=== PATIENT | female | born 1940 | race Caucasian/White ===

== ENCOUNTER 2017-06-05 12:10 | Inpatient (IN) | payer OTHER ==
--- NOTE | 2017-06-05 12:45 | PDOC ---
History of Present Illness - General Chief Complaint: Weakness Stated Complaint: UNABLE TO WALK Time Seen by Provider: 06/05/17 12:30 History Source: Patient Exam Limitations: No Limitations - History of Present Illness Initial Comments: 06/05/17 13:04 76y F presents with complaint of early onset parkinsons, htn, arhtiritis presents with FTT.The pt states that she is wheel chair bound for the past year or so, was evaluated at [facility] a few times for falls, and had undergone rehab but per patient was discharged without any services at home. 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 per EMS, states pt was sitting inher dirty dipare for a few days due to being uanbel to clean herself. pt otherwise has no complaints of any headache, dizziness, cp, sob, fever/chills, cough, n/v, abd pain, diarrhea, dysuria, frequency. pt states she has beentrying to call different services to get help but was ignored. PMD is at [facility] Past History - Past Medical History Allergies/Adverse Reactions: Allergies Allergy/AdvReac Type Severity Reaction Status Date / Time No Known Allergies Allergy Verified 06/05/17 12:24 Home Medications: Ambulatory Orders Unobtainable [Unobtainable] 06/05/17 COPD: No HTN: Yes Hypercholesterolemia: Yes - Surgical History Appendectomy: Yes - Suicide/Smoking/Psychosocial Hx Smoking History: Current every day smoker Have you smoked in the past 12 months: Yes Number of Cigarettes Smoked Daily: 5 Information on smoking cessation initiated: No Hx Alcohol Use: No Drug/Substance Use Hx: No Substance Use Type: None Review of Systems - Review of Systems Able to Perform ROS?: Yes Comments:: 06/05/17 13:10 Constitutional - +general weakness no reported Fever, Chills, HEENT: no reported vision changes, sore throat Respiratory: no reported cough, sob, hemoptysis Cardiac: no reported chest pain, palpitations, light headedness, leg swelling Abd/GI: no reported abd pain, nausea, vomiting, blood per rectum, melena, diarrhea : no reported dysuria, frequency, discharge Musculskelatal - no reported back pain, joint swelling skin - no reported bruising, erythema, rash neurological: no reported headache, numbness, focal weakness, tingling, ataxia, hematologic: no reported anemia, easy bruising, easy bleeding *Physical Exam - Vital Signs Last Vital Signs Temp Pulse Resp BP Pulse Ox 97.3 F L 68 18 131/72 100 06/05/17 12:24 06/05/17 12:24 06/05/17 12:24 06/05/17 12:24 06/05/17 12:24 - Physical Exam Comments: 06/05/17 13:10 GENERAL: The patient is awake, alert, and fully oriented, Nontoxic - in no acute distress. Frail appearing HEAD: Normocephalic, atraumatic. EYES: extraocular movements intact, sclera anicteric, conjunctiva clear. ENT: Normal voice, dry mucous membranes. NECK: Normal range of motion, supple LUNGS: Breath sounds equal, clear to auscultation bilaterally. No wheezes, no rhonchi, no rales. HEART: Regular rate and rhythm, normal S1 and S2 without murmur, rub or gallop. ABDOMEN: Soft, nontender, normoactive bowel sounds. No guarding, no rebound. No CVA tenderness EXTREMITIES: Normal range of motion, no edema. +arhthritic changes on the hands/ wrists, large nontender/nonerythemadous bursa noted on R elbow NEUROLOGICAL: No facial assymetry, Normal speech, moving all 4 extremities spontaneously and symmetrically PSYCH: Normal mood, normal affect. SKIN: Warm, Dry, normal turgor, Heart Score/ECG Review - ECG Impressions Comment:: 06/05/17 13:13 Twelve-lead EKG was performed and reviewed by me. There is normal sinus rhythm Rate of 59 LVH with repolarization Q wave in lead 3 ED Treatment Course - LABORATORY CBC & Chemistry Diagram: 06/06/17 12:20 06/06/17 06:10 Medical Decision Making - Medical Decision Making 06/05/17 12:45 76y F presents with complaint of early onset parkinsons, htn, arhtiritis presents with ftt, unable to ambualte or do most of her ADLs will r/o anemia, metabolic derangement, occult infection 06/05/17 15:45 labs reviewed noted for prerenal azotemia - will hydrate +anemic, +hypothyroid - will place in observation status for the hydration and case management assessment to see if we can get her some asisstance at home or placement as pt does not seem capable of living on her own. 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 Admitting physician has assumed care for the patient, will follow all pending diagnostics and will complete the evaluation and treatment. *DC/Admit/Observation/Transfer Diagnosis at time of Disposition: Prerenal renal failure Failure to thrive Qualifiers: Failure to thrive age range: in adult Qualified Code(s): R62.7 - Adult failure to thrive Anemia Qualifiers: Anemia type: other cause Other causes of anemia: other cause, not classified Qualified Code(s): D64.89 - Other specified anemias - Discharge Dispostion Condition at time of disposition: Stable Admit: Yes - Referrals - Patient Instructions - Post Discharge Activity
[2017-06-05 13:51] LABS: BASO % 1.1 % (0-2.0); EOS % 1.4 % (0-4.5); HEMATOCRIT 24.3 % (32.4-45.2); HEMOGLOBIN 8.1 GM/dL (10.7-15.3); LYMPH % 11.5 % (8-40); MCH 25.2 pg (25.7-33.7); MCHC 33.2 g/dl (32.0-36.0); MEAN CELL VOLUME 75.9 fl (80-96); MEAN PLT VOLUME 7.2 fl (7.5-11.1); MONO % 5.7 % (3.8-10.2); NEUT % 80.3 % (42.8-82.8); PLATELET COUNT 675 K/MM3 (134-434); RBC 3.21 M/mm3 (3.60-5.2); WHITE BLOOD COUNT 10.7 K/mm3 (4.0-10.0)
[2017-06-05 14:08] LABS: URINE APPEARANCE SLCLOUDY; URINE BILIRUBIN NEGATIVE (<2.0 mg/dL); URINE BLOOD 2+ (NEGATIVE); URINE COLOR YELLOW; URINE GLUCOSE (UA) NEGATIVE (NEGATIVE); URINE KETONE NEGATIVE (NEGATIVE); URINE LEUK ESTERASE TRACE (NEGATIVE); URINE NITRITE NEGATIVE (NEGATIVE); URINE UROBILINOGEN NEGATIVE mg/dL (0.2-1.0)
[2017-06-05 14:10] LABS: ALBUMIN 2.9 g/dl (3.4-5.0); ANION GAP 9 (8-16); BLOOD UREA NITROGEN 66 mg/dL (7-18); CALCIUM 8.8 mg/dL (8.5-10.1); CHLORIDE 96 mmol/L (98-107); CO2 26 mmol/L (21-32); GLUCOSE,RANDOM 186 mg/dL (74-106); SODIUM 131 mmol/L (136-145)
[2017-06-05 14:17] LABS: URINE PROTEIN 2+ (NEGATIVE)
[2017-06-05 14:22] LABS: EPI CELLS RARE /HPF (FEW); URINE BACTERIA MANY /hpf (NONE SEEN); URINE HYALINE CAST 2 /lpf; URINE MUCUS RARE; YEAST FEW
[2017-06-05 14:30] LABS: ALK PHOS 121 U/L (45-117); BILIRUBIN,TOTAL 0.3 mg/dL (0.2-1.0); CREATININE 1.7 mg/dL (0.55-1.02); SGPT/ALT 17 U/L (12-78); TOT PROT 7.4 g/dl (6.4-8.2)
[2017-06-05 14:37] LABS: POTASSIUM 4.4 mmol/L (3.5-5.1); SGOT/AST 43 U/L (15-37)
[2017-06-05] MEDS ORDERED: SODIUM CHLORIDE 500 ML IV STA (15:00)
[2017-06-05 17:26] VITALS: BMI 19.6
--- NOTE | 2017-06-05 18:01 | HP ---
CHIEF COMPLAINT: "my neighbor told me to come in" PCP: none HISTORY OF PRESENT ILLNESS: This is a 76 year old female with PMHx of HTN who presented to the ED with multiple complaints because her neighbor told her to come in. The patient is wheelchair bound and has been for over 1 year. She states she has been unable to hear out of her left hear for over a year and has had a "haziness" over her right eye for 1 year. She states that she lives alone and cannot take care of herself. She states in the past she has tried to get nursing services at home but has not be successful. When EMS found the patient she was sitting in her dirty diaper. The patient denies any chest pain, palpitations, dizziness, headache, edema, shortness of breath, fever, chills, cough, nausea, vomiting, dysuria, frequency, urgency. ER course was notable for: (1) Temp 07.3, pulse 68, BP 131/72, resp 18, O2 100% on RA (2) WBC 10.7, Hgb 8.1, platelets 675 (3) Na 131, Cr 1.7 (4) TSH 18.2 (5) UA 2+ protein (6) Chest X-ray with no acute pathology Recent Travel: denies PAST MEDICAL HISTORY: as above PAST SURGICAL HISTORY: Appendectomy and tonsilectomy as a child Social History: Smokin cigarettes/day Alcohol: denies Drugs: denies Family History: Allergies No Known Allergies Allergy (Verified 06/05/17 12:24) HOME MEDICATIONS: Home Medications Medication Instructions Recorded Unobtainable [Unobtainable] 06/05/17 REVIEW OF SYSTEMS CONSTITUTIONAL: Absent: fever, chills, diaphoresis, generalized weakness, malaise, loss of appetite, weight change HEENT: 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, right eye blindness x1 year Absent: rhinorrhea, nasal congestion, throat pain, throat swelling, difficulty swallowing, mouth swelling, ear pain, eye pain CARDIOVASCULAR: Absent: chest pain, syncope, palpitations, irregular heart rate, lightheadedness , peripheral edema RESPIRATORY: Absent: cough, shortness of breath, dyspnea with exertion, orthopnea, wheezing, stridor, hemoptysis GASTROINTESTINAL: Absent: abdominal pain, abdominal distension, nausea, vomiting, diarrhea, constipation, melena, hematochezia GENITOURINARY: Absent: dysuria, frequency, urgency, hesitancy, hematuria, flank pain, genital pain MUSCULOSKELETAL: Wheelchair bound x1 year Absent: myalgia, arthralgia, joint swelling, back pain, neck pain SKIN: Absent: rash, itching, pallor HEMATOLOGIC/IMMUNOLOGIC: Absent: easy bleeding, easy bruising, lymphadenopathy, frequent infections ENDOCRINE: Absent: unexplained weight gain, unexplained weight loss, heat intolerance, cold intolerance NEUROLOGIC: Absent: headache, focal weakness or paresthesias, dizziness, seizure, mental status changes PSYCHIATRIC: Absent: anxiety, depression, suicidal or homicidal ideation, hallucinations. PHYSICAL EXAMINATION Vital Signs - 24 hr 06/05/17 06/05/17 06/05/17 12:24 12:46 14:45 Temperature 97.3 F L Pulse Rate 68 Pulse Rate [ 63 Radial] Respiratory 18 20 Rate Blood Pressure 131/72 Blood Pressure 157/64 [Right Arm] O2 Sat by Pulse 100 100 98 Oximetry (%) 06/05/17 17:06 Temperature 97.7 F Pulse Rate 55 L Pulse Rate [ Radial] Respiratory 20 Rate Blood Pressure 167/66 Blood Pressure [Right Arm] O2 Sat by Pulse Oximetry (%) GENERAL: Awake, alert, and fully oriented, in no acute distress. HEAD: Normal with no signs of trauma. EYES: Right eye caterac. No lid lag. EARS, NOSE, THROAT: Left hear deafness. Ears normal, nares patent, oropharynx clear without exudates. Moist mucous membranes. NECK: Normal range of motion, supple without lymphadenopathy, JVD, or masses. LUNGS: Breath sounds equal, clear to auscultation bilaterally. No wheezes, and no crackles. No accessory muscle use. HEART: Regular rate and rhythm, normal S1 and S2 ABDOMEN: Soft, nontender, not distended, normoactive bowel sounds, no guarding, no rebound, no masses. No hepatomegaly or splenomegaly. MUSCULOSKELETAL: B/l hands with Heberden's and Anton's nodes. No CVA tenderness. UPPER EXTREMITIES: 2+ pulses, warm, well-perfused. No cyanosis. No clubbing. No peripheral edema. LOWER EXTREMITIES: 2+ pulses, warm, well-perfused. No calf tenderness. No peripheral edema. NEUROLOGICAL: Normal speech. PSYCHIATRIC: Cooperative. Good eye contact. Appropriate mood and affect. SKIN: Warm, dry, normal turgor, no rashes or lesions noted, normal capillary refill. Laboratory Results - last 24 hr 06/05/17 06/05/17 06/05/17 12:53 13:00 13:00 WBC 10.7 H RBC 3.21 L Hgb 8.1 L Hct 24.3 L MCV 75.9 L MCH 25.2 L MCHC 33.2 RDW 19.0 H Plt Count 675 H MPV 7.2 L Neutrophils % 80.3 Lymphocytes % 11.5 Monocytes % 5.7 Eosinophils % 1.4 Basophils % 1.1 Sodium 131 L Potassium 4.4 Chloride 96 L Carbon Dioxide 26 Anion Gap 9 BUN 66 H Creatinine 1.7 H Creat Clearance w eGFR 29.38 POC Glucometer Random Glucose 186 H Calcium 8.8 Total Bilirubin 0.3 AST 43 H ALT 17 Alkaline Phosphatase 121 H Total Protein 7.4 Albumin 2.9 L TSH 18.20 H Urine Color Yellow Urine Appearance Slcloudy Urine pH 5.0 Ur Specific [place] 1.012 Urine Protein 2+ H Urine Glucose (UA) Negative Urine Ketones Negative Urine Blood 2+ H Urine Nitrite Negative Urine Bilirubin Negative Urine Urobilinogen Negative Ur Leukocyte Esterase Trace Urine WBC (Auto) 5 Urine RBC (Auto) 2 Ur Epithelial Cells Rare Urine Bacteria Many Hyaline Casts 2 Urine Mucus Rare Urine Yeast Few 06/05/17 17:04 WBC RBC Hgb Hct MCV MCH MCHC RDW Plt Count MPV Neutrophils % Lymphocytes % Monocytes % Eosinophils % Basophils % Sodium Potassium Chloride Carbon Dioxide Anion Gap BUN Creatinine Creat Clearance w eGFR POC Glucometer 96 Random Glucose Calcium Total Bilirubin AST ALT Alkaline Phosphatase Total Protein Albumin TSH Urine Color Urine Appearance Urine pH Ur Specific [place] Urine Protein Urine Glucose (UA) Urine Ketones Urine Blood Urine Nitrite Urine Bilirubin Urine Urobilinogen Ur Leukocyte Esterase Urine WBC (Auto) Urine RBC (Auto) Ur Epithelial Cells Urine Bacteria Hyaline Casts Urine Mucus Urine Yeast Assessment: This is a 76 year old female with PMHx of HTN who presented to the ED with multiple complaints because her neighbor told her to come in. Plan: 1) Elevated TSH - TSH 18.2 - F/u T4 - Will start Synthroid if T4 level is low. Patient is asymptomatic 2) Elevated Cr - LUCERO vs. CKD - 2+ protein in urine. Patient unaware is CKD - F/u records from [facility] - Will give hydration - F/u urine electrolytes to calculate FeNa 3) HTN - Patient does not recall what medication she takes at home - Montor BP and consider starting Norvasc if elevated 4) F/E/N: - Diabetic/sodium controlled diet - Hyperglycemia: f/u HgbA1c - Monitor electrolytes - Corrected Na for hyperglycemia 133, continue to trend 5) Prophylaxis: - Heparin 5,000u sq bid - PT 6) Dispo: - Once condition improves - Discussed with case management, patient will need services set up at home CODE STATUS: FULL CODE Visit type - Emergency Visit Emergency Visit: Yes ED Registration Date: 06/05/17 Care time: The patient presented to the Emergency Department on the above date and was hospitalized for further evaluation of their emergent condition. - New Patient This patient is new to me today: Yes Date on this admission: 06/05/17 - Critical Care Critical Care patient: No Hospitalist Screening - Colonoscopy Questionnaire Colonoscopy Questionnaire: Colonoscopy Questionnaire - Patient: 50 - 75 years old and never had a screening colonoscopy: Unknown History of colon or rectal polyps, or CA: Unknown History of IBD, Crohn's disease or UC: Unknown History of abdominal radiation therapy as a child: Unknown - Relative: 1 with colon or rectal CA, or polyps at age 60 or younger: Unknown Colon or rectal CA diagnosed at age 45 or younger: Unknown Multiple relatives with colon or rectal CA: Unknown - Outcome: Screening Result: Negative Screen
[2017-06-05] MEDS: SODIUM CHLORIDE 1,000 ML IV SCH (18:26)
[2017-06-05] MEDS: HEPARIN NA (PORCINE) 5,000 UNITS/ML 1ML VIAL SQ SCH (21:57)
[2017-06-06 07:44] LABS: BASO % 1.5 % (0-2.0); EOS % 3.7 % (0-4.5); HEMOGLOBIN 7.2 GM/dL (10.7-15.3); LYMPH % 23.2 % (8-40); MCH 24.9 pg (25.7-33.7); MCHC 32.6 g/dl (32.0-36.0); MEAN CELL VOLUME 76.4 fl (80-96); MEAN PLT VOLUME 6.9 fl (7.5-11.1); MONO % 8.3 % (3.8-10.2); NEUT % 63.3 % (42.8-82.8); PLATELET COUNT 596 K/MM3 (134-434); RBC 2.89 M/mm3 (3.60-5.2); RDW 18.8 % (11.6-15.6); WHITE BLOOD COUNT 7.3 K/mm3 (4.0-10.0)
[2017-06-06 08:10] LABS: ALBUMIN 2.5 g/dl (3.4-5.0); ALK PHOS 100 U/L (45-117); ANION GAP 6 (8-16); BILIRUBIN,TOTAL 0.2 mg/dL (0.2-1.0); BLOOD UREA NITROGEN 56 mg/dL (7-18); CALCIUM 8.4 mg/dL (8.5-10.1); CHLORIDE 105 mmol/L (98-107); CO2 25 mmol/L (21-32); CREATININE 1.5 mg/dL (0.55-1.02); GLUCOSE,RANDOM 62 mg/dL (74-106); MAGNESIUM 2.1 mg/dL (1.8-2.4); PHOSPHOROUS 3.5 mg/dL (2.5-4.9); POTASSIUM 4.2 mmol/L (3.5-5.1); SGOT/AST 26 U/L (15-37); SGPT/ALT 13 U/L (12-78); SODIUM 136 mmol/L (136-145); TOT PROT 6.5 g/dl (6.4-8.2)
[2017-06-06] MEDS: SODIUM CHLORIDE 1,000 ML IV SCH ×3 (08:36→22:32)
[2017-06-06] MEDS ORDERED: PT OWN MED DRAWER 7, Y5N ONE (09:49)
[2017-06-06] MEDS: HEPARIN NA (PORCINE) 5,000 UNITS/ML 1ML VIAL SQ SCH ×2 (09:53→21:46)
--- NOTE | 2017-06-06 10:53 | PN ---
Progress Note (short form) - Note Progress Note: Subjective: The patient was seen and examined at the bedside, she has no complaints at this time. Awaiting case management and PT evaluation Current Medications Generic Name Dose Route Start Last Admin Trade Name Armani PRN Reason Stop Dose Admin Heparin Sodium (Porcine) 5,000 unit 06/05/17 22:00 06/06/17 09:53 Heparin - SQ 5,000 unit BID LINNEA Administration Sodium Chloride 1,000 mls @ 75 mls/hr 06/05/17 18:00 06/06/17 08:36 Normal Saline - IV 75 mls/hr ASDIR LINNEA Administration Levothyroxine Sodium 25 mcg 06/07/17 07:00 Synthroid - PO DAILY@0700 [facility] Objective: Vital Signs Period Temp Pulse Resp BP Sys/Rolon Pulse Ox Last 24 Hr 97.3 F-97.7 F 52-68 18-20 131-176/52-72 98-100 Physical Exam: GENERAL: Awake, alert, and fully oriented, in no acute distress. HEAD: Normal with no signs of trauma. EYES: Right eye caterac. No lid lag. EARS, NOSE, THROAT: Left hear deafness. Ears normal, nares patent, oropharynx clear without exudates. Moist mucous membranes. NECK: Normal range of motion, supple without lymphadenopathy, JVD, or masses. LUNGS: Breath sounds equal, clear to auscultation bilaterally. No wheezes, and no crackles. No accessory muscle use. HEART: Regular rate and rhythm, normal S1 and S2 ABDOMEN: Soft, nontender, not distended, normoactive bowel sounds, no guarding, no rebound, no masses. No hepatomegaly or splenomegaly. MUSCULOSKELETAL: B/l hands with Heberden's and Anton's nodes. No CVA tenderness. UPPER EXTREMITIES: 2+ pulses, warm, well-perfused. No cyanosis. No clubbing. No peripheral edema. LOWER EXTREMITIES: 2+ pulses, warm, well-perfused. No calf tenderness. No peripheral edema. NEUROLOGICAL: Normal speech. PSYCHIATRIC: Cooperative. Good eye contact. Appropriate mood and affect. SKIN: Warm, dry, normal turgor, no rashes or lesions noted, normal capillary refill. CBCD WBC 7.3 K/mm3 (4.0-10.0) D 06/06/17 06:10 RBC 2.89 M/mm3 (3.60-5.2) L 06/06/17 06:10 Hgb 7.2 GM/dL (10.7-15.3) L D 06/06/17 06:10 Hct 22.0 % (32.4-45.2) L 06/06/17 06:10 MCV 76.4 fl (80-96) L 06/06/17 06:10 MCHC 32.6 g/dl (32.0-36.0) 06/06/17 06:10 RDW 18.8 % (11.6-15.6) H 06/06/17 06:10 Plt Count 596 K/MM3 (134-434) H 06/06/17 06:10 MPV 6.9 fl (7.5-11.1) L 06/06/17 06:10 CMP Sodium 136 mmol/L (136-145) 06/06/17 06:10 Potassium 4.2 mmol/L (3.5-5.1) 06/06/17 06:10 Chloride 105 mmol/L (98-107) 06/06/17 06:10 Carbon Dioxide 25 mmol/L (21-32) 06/06/17 06:10 Anion Gap 6 (8-16) L 06/06/17 06:10 BUN 56 mg/dL (7-18) H 06/06/17 06:10 Creatinine 1.5 mg/dL (0.55-1.02) H 06/06/17 06:10 Creat Clearance w eGFR 33.94 (>60) 06/06/17 06:10 Random Glucose 62 mg/dL (74-106) L 06/06/17 06:10 Calcium 8.4 mg/dL (8.5-10.1) L 06/06/17 06:10 Total Bilirubin 0.2 mg/dL (0.2-1.0) D 06/06/17 06:10 AST 26 U/L (15-37) 06/06/17 06:10 ALT 13 U/L (12-78) 06/06/17 06:10 Alkaline Phosphatase 100 U/L (45-117) 06/06/17 06:10 Total Protein 6.5 g/dl (6.4-8.2) 06/06/17 06:10 Albumin 2.5 g/dl (3.4-5.0) L 06/06/17 06:10 Assessment: This is a 76 year old female with PMHx of HTN who presented to the ED with multiple complaints because her neighbor told her to come in. Plan: 1) Elevated TSH - TSH 18.2 - T4 low - Start synthroid, will need repeat TSH testing in 4 weeks 2) Elevated Cr - LUCERO vs. CKD - 2+ protein in urine. Patient unaware is CKD - F/u records from [facility] - Will give hydration, Cr improving - F/u urine electrolytes to calculate FeNa 3) HTN - Patient does not recall what medication she takes at home - BP elevated, start Norvasc 4) Anemia - Worsening, may be dilutional? - F/u iron studies - F/u repeat CBC this PM 5) F/E/N: - Sodium controlled diet - Monitor electrolytes 6) Prophylaxis: - Heparin 5,000u sq bid - PT 7) Dispo: - Once condition improves - Discussed with case management, patient will need services set up at home CODE STATUS: FULL CODE Visit type - Emergency Visit Emergency Visit: Yes ED Registration Date: 06/05/17 Care time: The patient presented to the Emergency Department on the above date and was hospitalized for further evaluation of their emergent condition. - New Patient This patient is new to me today: No - Critical Care Critical Care patient: No
[2017-06-06] MEDS: amLODIPine BESYLATE 5 MG TABLET (FP) PO SCH (11:24)
[2017-06-06 13:06] LABS: HEMATOCRIT 21.4 % (32.4-45.2); MCH 24.8 pg (25.7-33.7); MCHC 32.7 g/dl (32.0-36.0); MEAN CELL VOLUME 75.8 fl (80-96); MEAN PLT VOLUME 7.3 fl (7.5-11.1); PLATELET COUNT 588 K/MM3 (134-434); RBC 2.82 M/mm3 (3.60-5.2); RDW 19.3 % (11.6-15.6); WHITE BLOOD COUNT 7.4 K/mm3 (4.0-10.0)
[2017-06-07 06:08] LABS: SERUM IRON SATURATION 14 % (15-55); TOTAL IRON BINDING CAPACITY 198 ug/dL (250-450); UIBC 171 ug/dL (118-369)
[2017-06-07] MEDS ORDERED: LEVOTHYROXINE NA 25 MCG TABLET (FP) PO SCH (07:00)
[2017-06-07 08:44] LABS: BASO % 1.2 % (0-2.0); EOS % 3.3 % (0-4.5); HEMATOCRIT 21.9 % (32.4-45.2); HEMOGLOBIN 7.1 GM/dL (10.7-15.3); LYMPH % 20.6 % (8-40); MCH 25.1 pg (25.7-33.7); MCHC 32.5 g/dl (32.0-36.0); MEAN CELL VOLUME 77.1 fl (80-96); MEAN PLT VOLUME 6.7 fl (7.5-11.1); MONO % 5.6 % (3.8-10.2); NEUT % 69.3 % (42.8-82.8); PLATELET COUNT 554 K/MM3 (134-434); RBC 2.84 M/mm3 (3.60-5.2); RDW 19.4 % (11.6-15.6); WHITE BLOOD COUNT 7.2 K/mm3 (4.0-10.0)
[2017-06-07 09:03] LABS: ALBUMIN 2.5 g/dl (3.4-5.0); ALK PHOS 90 U/L (45-117); ANION GAP 9 (8-16); BILIRUBIN,TOTAL 0.3 mg/dL (0.2-1.0); BLOOD UREA NITROGEN 47 mg/dL (7-18); CALCIUM 8.8 mg/dL (8.5-10.1); CHLORIDE 107 mmol/L (98-107); CO2 22 mmol/L (21-32); CREATININE 1.4 mg/dL (0.55-1.02); GLUCOSE,RANDOM 66 mg/dL (74-106); POTASSIUM 4.1 mmol/L (3.5-5.1); SGOT/AST 26 U/L (15-37); SGPT/ALT 12 U/L (12-78); SODIUM 138 mmol/L (136-145); TOT PROT 6.4 g/dl (6.4-8.2)
[2017-06-07] MEDS: amLODIPine BESYLATE 5 MG TABLET (FP) PO SCH (10:59)
[2017-06-07] MEDS: HEPARIN NA (PORCINE) 5,000 UNITS/ML 1ML VIAL SQ SCH (10:59)
[2017-06-07] MEDS: SODIUM CHLORIDE 1,000 ML IV SCH (12:27)
--- NOTE | 2017-06-07 12:47 | PN ---
Progress Note (short form) - Note Progress Note: Subjective: The patient was seen and examined at the bedside, she has no complaints at this time. Current Medications Generic Name Dose Route Start Last Admin Trade Name Armani PRN Reason Stop Dose Admin Amlodipine Besylate 5 mg 06/06/17 11:15 06/07/17 10:59 Norvasc - PO 5 mg DAILY LINNEA Administration Heparin Sodium (Porcine) 5,000 unit 06/05/17 22:00 06/07/17 10:59 Heparin - SQ 5,000 unit BID LINNEA Administration Sodium Chloride 1,000 mls @ 75 mls/hr 06/05/17 18:00 06/07/17 12:27 Normal Saline - IV 75 mls/hr ASDIR LINNEA Administration Levothyroxine Sodium 25 mcg 06/07/17 07:00 06/07/17 06:35 Synthroid - PO 25 mcg DAILY@0700 LINNEA Administration Objective: Vital Signs Period Temp Pulse Resp BP Sys/Rolon Pulse Ox Last 24 Hr 97.6 F-98.4 F 51-53 20-22 137-172/56-70 99 Physical Exam: GENERAL: Awake, alert, and fully oriented, in no acute distress. HEAD: Normal with no signs of trauma. EYES: Right eye caterac. No lid lag. EARS, NOSE, THROAT: Left hear deafness. Ears normal, nares patent, oropharynx clear without exudates. Moist mucous membranes. NECK: Normal range of motion, supple without lymphadenopathy, JVD, or masses. LUNGS: Breath sounds equal, clear to auscultation bilaterally. No wheezes, and no crackles. No accessory muscle use. HEART: Regular rate and rhythm, normal S1 and S2 ABDOMEN: Soft, nontender, not distended, normoactive bowel sounds, no guarding, no rebound, no masses. No hepatomegaly or splenomegaly. MUSCULOSKELETAL: B/l hands with Heberden's and Anton's nodes. No CVA tenderness. UPPER EXTREMITIES: 2+ pulses, warm, well-perfused. No cyanosis. No clubbing. No peripheral edema. LOWER EXTREMITIES: 2+ pulses, warm, well-perfused. No calf tenderness. No peripheral edema. NEUROLOGICAL: Normal speech. PSYCHIATRIC: Cooperative. Good eye contact. Appropriate mood and affect. SKIN: Warm, dry, normal turgor, no rashes or lesions noted, normal capillary refill. CBCD WBC 7.2 K/mm3 (4.0-10.0) 06/07/17 07:50 RBC 2.84 M/mm3 (3.60-5.2) L 06/07/17 07:50 Hgb 7.1 GM/dL (10.7-15.3) L 06/07/17 07:50 Hct 21.9 % (32.4-45.2) L 06/07/17 07:50 MCV 77.1 fl (80-96) L 06/07/17 07:50 MCHC 32.5 g/dl (32.0-36.0) 06/07/17 07:50 RDW 19.4 % (11.6-15.6) H 06/07/17 07:50 Plt Count 554 K/MM3 (134-434) H 06/07/17 07:50 MPV 6.7 fl (7.5-11.1) L 06/07/17 07:50 CMP Sodium 138 mmol/L (136-145) 06/07/17 07:50 Potassium 4.1 mmol/L (3.5-5.1) 06/07/17 07:50 Chloride 107 mmol/L (98-107) 06/07/17 07:50 Carbon Dioxide 22 mmol/L (21-32) 06/07/17 07:50 Anion Gap 9 (8-16) 06/07/17 07:50 BUN 47 mg/dL (7-18) H 06/07/17 07:50 Creatinine 1.4 mg/dL (0.55-1.02) H 06/07/17 07:50 Creat Clearance w eGFR 36.76 (>60) 06/07/17 07:50 Random Glucose 66 mg/dL (74-106) L 06/07/17 07:50 Calcium 8.8 mg/dL (8.5-10.1) 06/07/17 07:50 Total Bilirubin 0.3 mg/dL (0.2-1.0) D 06/07/17 07:50 AST 26 U/L (15-37) 06/07/17 07:50 ALT 12 U/L (12-78) 06/07/17 07:50 Alkaline Phosphatase 90 U/L (45-117) 06/07/17 07:50 Total Protein 6.4 g/dl (6.4-8.2) 06/07/17 07:50 Albumin 2.5 g/dl (3.4-5.0) L 06/07/17 07:50 Assessment: This is a 76 year old female with PMHx of HTN who presented to the ED with multiple complaints because her neighbor told her to come in. Plan: 1) Elevated TSH - TSH 18.2 - T4 low - Start synthroid, will need repeat TSH testing in 4 weeks 2) Elevated Cr - LUCERO vs. CKD - 2+ protein in urine. Patient unaware is CKD - F/u records from [facility] - Will give hydration, Cr improving - F/u urine electrolytes to calculate FeNa 3) HTN - Patient does not recall what medication she takes at home - BP elevated, start Norvasc 4) Anemia - Stable - Iron low normal. Will start ferrous sulfate 5) F/E/N: - Sodium controlled diet - Monitor electrolytes 6) Prophylaxis: - Heparin 5,000u sq bid - PT 7) Dispo: - Once condition improves - Discussed with case management, patient will need services set up at home CODE STATUS: FULL CODE Visit type - Emergency Visit Emergency Visit: Yes ED Registration Date: 06/07/17 Care time: The patient presented to the Emergency Department on the above date and was hospitalized for further evaluation of their emergent condition. - New Patient This patient is new to me today: No - Critical Care Critical Care patient: No
--- NOTE | 2017-06-07 12:48 | EKG ---
Test Reason : Blood Pressure : / mmHG Vent. Rate : 059 BPM Atrial Rate : 059 BPM P-R Int : 162 ms QRS Dur : 104 ms QT Int : 418 ms P-R-T Axes : 058 015 130 degrees QTc Int : 413 ms SINUS BRADYCARDIA LEFT VENTRICULAR HYPERTROPHY WITH REPOLARIZATION ABNORMALITY ABNORMAL ECG NO PREVIOUS ECGS AVAILABLE Confirmed by JAROD HARRISON MD ([id number]) on 06/07/2017 12:48:21 PM Referred By: Confirmed By:JAROD HARRISON MD
[2017-06-07] MEDS ORDERED: METOPROLOL TARTRATE 25 MG TABLET (FP) PO SCH (13:45)
[2017-06-07 13:56] LABS: URINE CREATININE 24.5 mg/dL (20-320)
[2017-06-07] MEDS ORDERED: amLODIPine BESYLATE 5 MG TABLET (FP) PO ONE (14:15)
[2017-06-07] MEDS ORDERED: hydrALAZINE HCL 10 MG TABLET PO ONE (16:35)
[2017-06-07] MEDS: LEVOTHYROXINE NA 25 MCG TABLET (FP) PO SCH (18:14)
[2017-06-08 06:07] LABS: TRANSFERRIN 168 mg/dL (200-370)
[2017-06-08] MEDS: LEVOTHYROXINE NA 25 MCG TABLET (FP) PO SCH (06:53)
[2017-06-08] MEDS: FERROUS SO4 325 MG TABLET (FP) PO SCH ×3 (08:41→17:23)
[2017-06-08] MEDS: DOCUSATE SODIUM 100 MG CAPSULE (FP) PO SCH ×3 (08:42→22:00)
--- NOTE | 2017-06-08 09:09 | PN ---
Progress Note (short form) - Note Progress Note: Subjective: The patient was seen and examined at the bedside, she has no complaints at this time. Current Medications Generic Name Dose Route Start Last Admin Trade Name Armani PRN Reason Stop Dose Admin Amlodipine Besylate 5 mg 06/06/17 11:15 06/07/17 10:59 Norvasc - PO 5 mg DAILY LINNEA Administration Heparin Sodium (Porcine) 5,000 unit 06/05/17 22:00 06/07/17 10:59 Heparin - SQ 5,000 unit BID LINNEA Administration Sodium Chloride 1,000 mls @ 75 mls/hr 06/05/17 18:00 06/07/17 12:27 Normal Saline - IV 75 mls/hr ASDIR LINNEA Administration Levothyroxine Sodium 25 mcg 06/07/17 07:00 06/07/17 06:35 Synthroid - PO 25 mcg DAILY@0700 LINNEA Administration Objective: Vital Signs Period Temp Pulse Resp BP Sys/Rolon Pulse Ox Last 24 Hr 97.6 F-98.4 F 51-53 20-22 137-172/56-70 99 Physical Exam: GENERAL: Awake, alert, and fully oriented, in no acute distress. HEAD: Normal with no signs of trauma. EYES: Right eye caterac. No lid lag. EARS, NOSE, THROAT: Left hear deafness. Ears normal, nares patent, oropharynx clear without exudates. Moist mucous membranes. NECK: Normal range of motion, supple without lymphadenopathy, JVD, or masses. LUNGS: Breath sounds equal, clear to auscultation bilaterally. No wheezes, and no crackles. No accessory muscle use. HEART: Regular rate and rhythm, normal S1 and S2 ABDOMEN: Soft, nontender, not distended, normoactive bowel sounds, no guarding, no rebound, no masses. No hepatomegaly or splenomegaly. MUSCULOSKELETAL: B/l hands with Heberden's and Anton's nodes. No CVA tenderness. UPPER EXTREMITIES: 2+ pulses, warm, well-perfused. No cyanosis. No clubbing. No peripheral edema. LOWER EXTREMITIES: 2+ pulses, warm, well-perfused. No calf tenderness. No peripheral edema. NEUROLOGICAL: Normal speech. PSYCHIATRIC: Cooperative. Good eye contact. Appropriate mood and affect. SKIN: Warm, dry, normal turgor, no rashes or lesions noted, normal capillary refill. CBCD WBC 7.2 K/mm3 (4.0-10.0) 06/07/17 07:50 RBC 2.84 M/mm3 (3.60-5.2) L 06/07/17 07:50 Hgb 7.1 GM/dL (10.7-15.3) L 06/07/17 07:50 Hct 21.9 % (32.4-45.2) L 06/07/17 07:50 MCV 77.1 fl (80-96) L 06/07/17 07:50 MCHC 32.5 g/dl (32.0-36.0) 06/07/17 07:50 RDW 19.4 % (11.6-15.6) H 06/07/17 07:50 Plt Count 554 K/MM3 (134-434) H 06/07/17 07:50 MPV 6.7 fl (7.5-11.1) L 06/07/17 07:50 CMP Sodium 138 mmol/L (136-145) 06/07/17 07:50 Potassium 4.1 mmol/L (3.5-5.1) 06/07/17 07:50 Chloride 107 mmol/L (98-107) 06/07/17 07:50 Carbon Dioxide 22 mmol/L (21-32) 06/07/17 07:50 Anion Gap 9 (8-16) 06/07/17 07:50 BUN 47 mg/dL (7-18) H 06/07/17 07:50 Creatinine 1.4 mg/dL (0.55-1.02) H 06/07/17 07:50 Creat Clearance w eGFR 36.76 (>60) 06/07/17 07:50 Random Glucose 66 mg/dL (74-106) L 06/07/17 07:50 Calcium 8.8 mg/dL (8.5-10.1) 06/07/17 07:50 Total Bilirubin 0.3 mg/dL (0.2-1.0) D 06/07/17 07:50 AST 26 U/L (15-37) 06/07/17 07:50 ALT 12 U/L (12-78) 06/07/17 07:50 Alkaline Phosphatase 90 U/L (45-117) 06/07/17 07:50 Total Protein 6.4 g/dl (6.4-8.2) 06/07/17 07:50 Albumin 2.5 g/dl (3.4-5.0) L 06/07/17 07:50 Assessment: This is a 76 year old female with PMHx of HTN who presented to the ED with multiple complaints because her neighbor told her to come in. Plan: 1) Elevated TSH - TSH 18.2 - T4 low - Per [facility] records, patient is on 100mcg Synthroid daily. Will resume that dose - Check TSH in 4 weeks outpatient 2) CKD stage 3B - Per [facility] records, CKD - Cr on discharge was 1.5 3) HTN - Was discharged from [facility] on Norvasc and Hydralazine - Start Hydralazine 10mg po bid - Norvasc 10mg po daily 4) Anemia - Patient has hx of GI bleed 02/2017 (she denies any history). During admission at [facility] from 04/29-05/24, the patient had a negative guiac and refused all GI workup - Resume ferrous sulfate tid - F/u stool for occult blood - Patient refusing any melena, brbpr 5) F/E/N: - Sodium controlled diet - Monitor electrolytes 6) Prophylaxis: - Heparin 5,000u sq bid - PT 7) Dispo: - Once condition improves - Discussed with case management, for SNF placement Reviewed records from [facility]: Patient has PMHx of HTN, hyperlipidemia, CVA , possible NSTEMI, hypothyroidism, CKD, anemia who had presented to [facility] with a Hgb of 5.6. She received PRBC transfusion. She repeatedly refused GI workup at the time, her guiac was negative. The patient was discharged with a Hgb of 7.2 CODE STATUS: FULL CODE Visit type - Emergency Visit Emergency Visit: Yes ED Registration Date: 06/07/17 Care time: The patient presented to the Emergency Department on the above date and was hospitalized for further evaluation of their emergent condition. - New Patient This patient is new to me today: No - Critical Care Critical Care patient: No
[2017-06-08 09:42] LABS: HEMATOCRIT 23.3 % (32.4-45.2); HEMOGLOBIN 7.6 GM/dL (10.7-15.3); MCH 24.9 pg (25.7-33.7); MCHC 32.6 g/dl (32.0-36.0); MEAN CELL VOLUME 76.5 fl (80-96); MEAN PLT VOLUME 6.9 fl (7.5-11.1); PLATELET COUNT 608 K/MM3 (134-434); RBC 3.04 M/mm3 (3.60-5.2); RDW 20.4 % (11.6-15.6)
[2017-06-08] MEDS ORDERED: hydrALAZINE HCL 10 MG TABLET PO SCH (10:00)
[2017-06-08 10:16] LABS: ALBUMIN 2.6 g/dl (3.4-5.0); ALK PHOS 102 U/L (45-117); ANION GAP 6 (8-16); BILIRUBIN,TOTAL 0.2 mg/dL (0.2-1.0); BLOOD UREA NITROGEN 47 mg/dL (7-18); CHLORIDE 104 mmol/L (98-107); CO2 24 mmol/L (21-32); CREATININE 1.4 mg/dL (0.55-1.02); GLUCOSE,RANDOM 95 mg/dL (74-106); POTASSIUM 4.6 mmol/L (3.5-5.1); SGOT/AST 25 U/L (15-37); SGPT/ALT 12 U/L (12-78); SODIUM 134 mmol/L (136-145); TOT PROT 6.7 g/dl (6.4-8.2)
[2017-06-08] MEDS ORDERED: PT OWN MED DRAWER 7, Y5N ONE (10:33)
[2017-06-08] MEDS: amLODIPine BESYLATE 10 MG TABLET (FP) PO SCH (11:20)
[2017-06-08] MEDS: PANTOPRAZOLE 40 MG TABLET (FP) PO SCH (11:20)
[2017-06-08] MEDS: hydrALAZINE HCL 10 MG TABLET PO SCH ×2 (11:20→22:42)
[2017-06-09] MEDS: DOCUSATE SODIUM 100 MG CAPSULE (FP) PO SCH ×2 (06:43→13:10)
[2017-06-09] MEDS: LEVOTHYROXINE NA 25 MCG TABLET (FP) PO SCH (06:45)
[2017-06-09 07:47] LABS: BASO % 1.2 % (0-2.0); EOS % 3.3 % (0-4.5); HEMATOCRIT 23.6 % (32.4-45.2); HEMOGLOBIN 7.6 GM/dL (10.7-15.3); LYMPH % 18.1 % (8-40); MCH 24.9 pg (25.7-33.7); MCHC 32.2 g/dl (32.0-36.0); MEAN CELL VOLUME 77.4 fl (80-96); MEAN PLT VOLUME 7.1 fl (7.5-11.1); MONO % 4.7 % (3.8-10.2); NEUT % 72.7 % (42.8-82.8); PLATELET COUNT 574 K/MM3 (134-434); RBC 3.05 M/mm3 (3.60-5.2); WHITE BLOOD COUNT 7.3 K/mm3 (4.0-10.0)
[2017-06-09 08:18] LABS: ANION GAP 7 (8-16); BLOOD UREA NITROGEN 51 mg/dL (7-18); CALCIUM 8.8 mg/dL (8.5-10.1); CHLORIDE 106 mmol/L (98-107); CO2 22 mmol/L (21-32); CREATININE 1.4 mg/dL (0.55-1.02); GLUCOSE,RANDOM 62 mg/dL (74-106); POTASSIUM 4.7 mmol/L (3.5-5.1); SODIUM 135 mmol/L (136-145)
[2017-06-09] MEDS ORDERED: PT OWN MED DRAWER 7, Y5N ONE ×2 (09:06→12:58)
[2017-06-09] MEDS: PANTOPRAZOLE 40 MG TABLET (FP) PO SCH (09:10)
[2017-06-09] MEDS: amLODIPine BESYLATE 10 MG TABLET (FP) PO SCH (09:10)
[2017-06-09] MEDS: FERROUS SO4 325 MG TABLET (FP) PO SCH ×2 (09:10→13:10)
[2017-06-09] MEDS: hydrALAZINE HCL 10 MG TABLET PO SCH (09:10)
--- NOTE | 2017-06-09 09:24 | DS ---
Physical Examination Vital Signs: Vital Signs Temperature 98.6 F 06/09/17 09:02 Pulse Rate 54 L 06/09/17 09:02 Respiratory Rate 20 06/09/17 09:02 Blood Pressure 142/63 06/09/17 09:02 O2 Sat by Pulse Oximetry (%) 100 06/08/17 22:00 Labs: CBC, BMP 06/09/17 06:30 06/09/17 06:30 Discharge Summary Reason For Visit: FAILURE TO THRIVE,PRERENAL FAILURE Current Active Problems Anemia (Acute) Failure to thrive (Acute) Prerenal renal failure (Acute) Condition: Improved - Instructions Diet, Activity, Other Instructions: Please return to the ED with new, persistent, or worsening symptoms. Please follow-up with providers as indicated. Referrals: Chet Diaz MD [Staff Physician] - (Please follow-up with your primary care provider within 1 week to schedule an appointment for repeat TSH testing in 4 weeks. Also, you will need to have your high blood pressure managed. ) Ernesto Duarte MD [Staff Physician] - (Please follow-up with Dr. Duarte (GI) within 1 week to schedule an outpatient colonoscopy.) Disposition: [facility] FAC[facility] - Home Medications Comprehensive Discharge Medication List: Ambulatory Orders Amlodipine Besylate [Norvasc -] 10 mg PO DAILY tablet 06/09/17 Docusate Sodium [Colace -] 100 mg PO TID capsule 06/09/17 Ferrous Sulfate [Feosol] 325 mg PO TIDCM ud 06/09/17 Levothyroxine [Synthroid -] 100 mcg PO DAILY@0700 tablet 06/09/17 Pantoprazole Sodium [Protonix -] 40 mg PO DAILY tablet.ec 06/09/17 hydrALAZINE HCL [Apresoline -] 10 mg PO BID #0 tablet 06/09/17
[2017-06-09 15:23] VITALS: BP 142/60; PULSE 51; TEMP 98.4
== END 2017-06-09 16:54 | DRG 683 ==
LOC: JER 12:10 → JERBED 15:16 → J8W 17:34 → OBSVTOIN 06-07 08:45
PROVIDERS: ADMIT Hospitalist; ATTEND Registered Nurse
DX: N17.9 Acute kidney failure, unspecified (principal); Z68.1 Body mass index [BMI] 19.9 or less, adult; R62.7 Adult failure to thrive; D64.9 Anemia, unspecified; I12.9 Hypertensive chronic kidney disease with stage 1 through stage 4 chronic kidney disease, or unspecified chronic kidney disease; M06.9 Rheumatoid arthritis, unspecified; N18.9 Chronic kidney disease, unspecified; E78.5 Hyperlipidemia, unspecified; E03.9 Hypothyroidism, unspecified; G20 Parkinson's disease
CPT/HCPCS: 36415; 71045-TC-FY; 76775-TC; 80048; 80053; 81003; 81015; 82436; 82570; 82728; 82962; 83036; 83540; 83550; 83735; 84100; 84133; 84300; 84439; 84443; 84466; 85025; 85027; 93005; 93010; 97116-GP; 97162-GP; 99285-25; G0378; J1644; J7030

== ENCOUNTER 2017-11-25 10:38 | Inpatient (IN) | payer OTHER ==
[2017-11-25 10:50] VITALS: BMI 26.2
--- NOTE | 2017-11-25 11:53 | PDOC ---
History of Present Illness - General Chief Complaint: Wound Stated Complaint: WOUND Time Seen by Provider: 11/25/17 11:32 - History of Present Illness Initial Comments: 77 YO f with a PMHx of HTN, HLD, Parkinson's, dementia, and depression, who presents to the er sent from the wound care center. The patient does not know why she is here in the ED. The aid by ian says that Dr. Goldman sent the patient here for admission to have her left 4th toe amputated. I called the wound center and spoke with a nurse who said that this patient was indeed sent from the [facility]. She apparently has no hx of PVD. She was supposed to have 2 MRI's one on Dec 18 and the other yesterday Dec 25. But they both supposedly got cancelled. As per Wound care nurse - Dr. frias said toe is infected and might even have some gout in the toe. Dr. frias wanted her admitted to try and get imaging while she is here. He also wanted her to receive antibiotics here in the er and sent a culture sensitivity with the patient. There was a question of whether to do a vascular exam on the patient (+/- CTA) Wound care Doc: Dr. Goldman Allergies: NKA, NKDA Social hx: denies cigarette use, alcohol, or illicit drugs. Past History - Past Medical History Allergies/Adverse Reactions: Allergies Allergy/AdvReac Type Severity Reaction Status Date / Time No Known Allergies Allergy Verified 11/25/17 10:47 Home Medications: Ambulatory Orders Amlodipine Besylate [Norvasc -] 10 mg PO DAILY tablet 06/09/17 Docusate Sodium [Colace -] 100 mg PO TID capsule 06/09/17 Ferrous Sulfate [Feosol] 325 mg PO TIDCM ud 06/09/17 Levothyroxine [Synthroid -] 100 mcg PO DAILY@0700 tablet 06/09/17 Pantoprazole Sodium [Protonix -] 40 mg PO DAILY tablet.ec 06/09/17 hydrALAZINE HCL [Apresoline -] 10 mg PO BID #0 tablet 06/09/17 COPD: No Dementia: Yes HTN: Yes Hypercholesterolemia: Yes - Surgical History Appendectomy: Yes - Immunization History Immunization Up to Date: Yes - Suicide/Smoking/Psychosocial Hx Smoking History: Never smoked Have you smoked in the past 12 months: No Number of Cigarettes Smoked Daily: 5 Information on smoking cessation initiated: No Hx Alcohol Use: No Drug/Substance Use Hx: No Substance Use Type: None Review of Systems - Review of Systems Comments:: CONSTITUTIONAL: Absent: fever, no chills, no fatigue EYES: Absent: visual changes ENT: Absent: ear pain, no sore throat CARDIOVASCULAR: Absent: chest pain, no palpitations RESPIRATORY: Absent: cough, no SOB GI: Absent: abdominal pain, no nausea, no vomiting, no constipation, no diarrhea GENITOURINARY: Absent: dysuria, no frequency, no hematuria MUSKULOSKELETAL: Absent: back pain, no arthralgia, no myalgia SKIN: Present: Wound Absent: rash NEURO: Absent: headache *Physical Exam - Vital Signs Last Vital Signs Temp Pulse Resp BP Pulse Ox 97.3 F L 60 16 132/44 L 97 11/25/17 10:47 11/25/17 10:47 11/25/17 10:47 11/25/17 10:47 11/25/17 10:47 - Physical Exam Comments: LEFT FOOT: 2+ DP and PT pulses. Equal sensorium in dorsal and plantar surfaces. Patient has decreased sensation in the Left 4th toe. The 4th toe is also very tender to touch. Motor strength of left foot is equal to R foot. CONSTITUTIONAL: Absent: fever, no chills, no fatigue EYES: Absent: visual changes ENT: Absent: ear pain, no sore throat CARDIOVASCULAR: Absent: chest pain, no palpitations RESPIRATORY: Absent: cough, no SOB GI: Absent: abdominal pain, no nausea, no vomiting, no constipation, no diarrhea GENITOURINARY: Absent: dysuria, no frequency, no hematuria MUSKULOSKELETAL: Absent: back pain, no arthralgia, no myalgia SKIN: Absent: rash NEURO: Absent: headache ED Treatment Course - LABORATORY CBC & Chemistry Diagram: 11/25/17 12:23 11/25/17 12:23 Medical Decision Making - Medical Decision Making 77 YO f with a PMHx of HTN, HLD, Parkinson's, dementia, and depression, who presents to the er sent from the wound care center. She was sent by Dr. Goldman to be admitted for imaging of her Left 4th toe and probable amputation. Plan: Cbc, Cmp, Blood + wound culture, Abx, admit. Starting Vanc and Zosyn in ER. Hb found to be low at 6.7 - We will tranfuse 1 unit in the ER. *DC/Admit/Observation/Transfer Diagnosis at time of Disposition: Skin ulcer of fourth toe of left foot, Anemia, Prerenal renal failure - Discharge Dispostion Condition at time of disposition: Guarded Decision to Admit order: Yes - Referrals - Patient Instructions - Post Discharge Activity
[2017-11-25 12:47] LABS: BASO % 2.5 % (0-2.0); HEMATOCRIT 20.4 % (32.4-45.2); LYMPH % 9.7 % (8-40); MCHC 32.3 g/dl (32.0-36.0); MEAN CELL VOLUME 80.5 fl (80-96); MEAN PLT VOLUME 7.3 fl (7.5-11.1); MONO % 7.1 % (3.8-10.2); NEUT % 77.7 % (42.8-82.8); PLATELET COUNT 490 K/MM3 (134-434); RBC 2.53 M/mm3 (3.60-5.2); RDW 20.7 % (11.6-15.6); WHITE BLOOD COUNT 5.8 K/mm3 (4.0-10.0)
[2017-11-25 12:50] LABS: HEMOGLOBIN 6.6 GM/dL (10.7-15.3)
[2017-11-25 13:09] LABS: ALBUMIN 2.8 g/dl (3.4-5.0); ALK PHOS 93 U/L (45-117); ANION GAP 12 MMOL/L (8-16); BILIRUBIN,TOTAL 0.3 mg/dL (0.2-1); BLOOD UREA NITROGEN 67 mg/dL (7-18); CALCIUM 8.7 mg/dL (8.5-10.1); CHLORIDE 98 mmol/L (98-107); CO2 20 mmol/L (21-32); CREATININE 2.4 mg/dL (0.55-1.3); GLUCOSE,RANDOM 103 mg/dL (74-106); POTASSIUM 4.5 mmol/L (3.5-5.1); SGOT/AST 29 U/L (15-37); SGPT/ALT 13 U/L (13-61); SODIUM 130 mmol/L (136-145); TOT PROT 6.8 g/dl (6.4-8.2)
[2017-11-25] MEDS ORDERED: VANCOMYCIN 1,000 MG in DEXTROSE 5%-WATER - 250 ML IVPB ONE (13:18)
[2017-11-25] MEDS ORDERED: PIPERACILLIN/TAZOB 3.375 GM 3.375 GM in DEXTROSE 5%-WATER - 50 ML IVPB ONE (13:19)
[2017-11-25] MEDS ORDERED: VANCOMYCIN 1 GRAM (PRE-DOCKED) 1,000 MG/250 ML BAG IVPB ONE (13:27)
[2017-11-25] MEDS ORDERED: PIPERACILLIN/TAZOB 3.375 GM 3.375 GM/50 ML BAG IVPB ONE (13:28)
[2017-11-25 13:41] LABS: ANISOCYTOSIS 1+; MACROCYTOSIS 1+; PLATELET ESTIMATE INCREASED
--- NOTE | 2017-11-25 13:51 | PDOC ---
Attending Attestation - Resident Resident Name: JunesrinathLigiaIsaac - ED Attending Attestation I have performed the following: I have examined & evaluated the patient, The case was reviewed & discussed with the resident, I agree w/resident's findings & plan, Exceptions are as noted - HPI HPI: 11/25/17 13:35 77 F with HTN, HLD sent from [facility] care center for infected L 4th toe. Pt is followed by Dr. Guido, who referred pt to ER for further management, possible amputation by Dr. Goldman. Pt with no F/C. No systemic symptoms. - Physicial Exam PE: 11/29/17 12:57 GENERAL: Awake, alert, and fully oriented, in no acute distress. HEAD: No signs of trauma EYES: PERRLA, EOMI, sclera anicteric, conjunctiva clear ENT: Auricles normal inspection, hearing grossly normal, nares patent, oropharynx clear without exudates. Moist mucosa NECK: Nontender, no stepoffs, Normal ROM, supple, no lymphadenopathy, JVD, or masses LUNGS: Breath sounds equal, clear to auscultation bilaterally. No wheezes, and no crackles HEART: Regular rate and rhythm, normal S1 and S2, no murmurs, rubs or gallops ABDOMEN: Soft, nontender, normoactive bowel sounds. No guarding, no rebound. No masses EXTREMITIES: + L 4th toe ulcer NEUROLOGICAL: Cranial nerves II through XII intact. 5/5 strength and sensation in all extremities, Normal speech, normal gait, normal cerebellar function SKIN: Warm, Dry, normal turgor, no rashes or lesions noted. - Medical Decision Making 11/29/17 12:59 77 F sent for infected L 4th toe ulcer. - Labs - Vascular c/s - Admit
--- NOTE | 2017-11-25 15:25 | HP ---
CHIEF COMPLAINT: Left foot 4th toe discomfort PCP: HISTORY OF PRESENT ILLNESS: Patient is an 85 year old female from [facility] with history significant for Parkinson's disease, dementia, HTN, HLD, CKD, hypothryoidism, presenting with complaint of left 4th toe discomfort. She is unsure of when the toe began swelling and the pain began, however denies inciting event or trauma. She is unable to provide further history. Patient has been seen by Dr. Goldman in the past. She was supposed to have an MRI done yesterday, but missed that appointment. Denies fevers, chills, shortness of breath, chest pain, palpitations, abdominal pain, nausea, vomiting, ER course was notable for: (1) Hb 6.6, 1 unit PRBC transfusion ordered (2) Sodium 130 (3) Erythematous, swollen left foot 4th toe Recent Travel: PAST MEDICAL HISTORY: Parkinson's disease, dementia, depression, hypertension, hyperlipidemia, chronic kidney disease, hypothryoidism PAST SURGICAL HISTORY: appendectomy, tonsilectomy Social History: Smoking: former smoker since high school, quit approx. 5 years ago. Alcohol: denies Drugs: denies Family History: Patient is unsure of any family medical history. Allergies No Known Allergies Allergy (Verified 11/25/17 10:47) HOME MEDICATIONS: Home Medications Medication Instructions Recorded Amlodipine Besylate [Norvasc -] 10 mg PO DAILY tablet 06/09/17 Docusate Sodium [Colace -] 100 mg PO TID capsule 06/09/17 Ferrous Sulfate [Feosol] 325 mg PO TIDCM ud 06/09/17 Levothyroxine [Synthroid -] 100 mcg PO DAILY@0700 tablet 06/09/17 Pantoprazole Sodium [Protonix -] 40 mg PO DAILY tablet.ec 06/09/17 hydrALAZINE HCL [Apresoline -] 10 mg PO BID #0 tablet 06/09/17 REVIEW OF SYSTEMS CONSTITUTIONAL: Absent: fever, chills, diaphoresis, generalized weakness, malaise HEENT: Absent: rhinorrhea, nasal congestion, throat swelling, difficulty swallowing, visual changes CARDIOVASCULAR: Absent: chest pain, syncope, palpitations, irregular heart rate, lightheadedness , peripheral edema RESPIRATORY: Absent: cough, shortness of breath, dyspnea with exertion, orthopnea, wheezing GASTROINTESTINAL: Absent: abdominal pain, abdominal distension, nausea, vomiting, diarrhea, constipation GENITOURINARY: Absent: dysuria, frequency, urgency, hesitancy MUSCULOSKELETAL: Admits: joint swelling at left 4th toe. SKIN: Admits erythema, purulent drainage at left 4th toe. HEMATOLOGIC/IMMUNOLOGIC: Absent: recent bleeding, lymphadenopathy, trauma NEUROLOGIC: Absent: headache, focal weakness or paresthesias, dizziness PSYCHIATRIC: Absent: anxiety, depression, PHYSICAL EXAMINATION Vital Signs - 24 hr 11/25/17 10:47 Temperature 97.3 F L Pulse Rate 60 Respiratory 16 Rate Blood Pressure 132/44 L O2 Sat by Pulse 97 Oximetry (%) GENERAL: Awake, alert, and oriented to person, place, time in no acute distress. HEAD: Normal with no signs of trauma. EYES: Pupils equal, round and reactive to light, extraocular movements intact without nystagmus, sclera anicteric, conjunctiva clear. EARS, NOSE, THROAT: Nares patent, oropharynx clear without exudates or erythema. Dry mucous membranes. NECK: Normal range of motion, supple without lymphadenopathy, JVD. LUNGS: Good inspiratory effort and air entery b/l. Breath sounds equal, clear to auscultation bilaterally. No wheezes, and no crackles. No accessory muscle use. HEART: Regular rate and rhythm, normal S1 and S2. 3/6 Holosystolic murmur appreciated at left sternal border without radiation to carotids. ABDOMEN: Soft, nontender, not distended, normoactive bowel sounds X4 quadrants, no guarding, no rebound tendernes. No hepatomegaly or splenomegaly. MUSCULOSKELETAL: Normal range of motion at all joints. Noted 5cmx 4cm nodule over left wrist, and numerous smaller 2-3 cm nodules along b/l index fingers. nontedner to palpation. UPPER EXTREMITIES: 2+ radial pulses b/l, warm, well-perfused. LOWER EXTREMITIES: 2+ dorsalis pedis pulses b/l, warm, well-perfused. No calf tenderness b/l. No peripheral edema. Left 4th toe is erythematous, swollen, with purulent exudate at dorsal aspect NEUROLOGICAL: Cranial nerves II-XII intact. Normal speech. Strength 5/5 b/l upper extremities in flexion, extension, abduction, adduction. 5/5 b/l lower extreities hip flexion, extension, knee flexion, extension, abduction, adduction. Plantarflexion, dorsiflexion 5/5 b/l. PSYCHIATRIC: Cooperative. Appropriate mood and affect upon my encounter today. Laboratory Results - last 24 hr 11/25/17 11/25/17 11/25/17 12:23 12:23 13:37 WBC 5.8 RBC 2.53 L Hgb 6.6 L* Hct 20.4 L MCV 80.5 MCH 26.0 MCHC 32.3 RDW 20.7 H Plt Count 490 H MPV 7.3 L Absolute Neuts (auto) 4.5 Neutrophils % 77.7 Lymphocytes % 9.7 D Monocytes % 7.1 Eosinophils % 3.0 Basophils % 2.5 H Nucleated RBC % 0 Hypochromia 1+ Platelet Estimate Increased Polychromasia 0 Poikilocytosis 1+ Anisocytosis 1+ Microcytosis 1+ Macrocytosis 1+ Sodium 130 L Potassium 4.5 Chloride 98 Carbon Dioxide 20 L Anion Gap 12 BUN 67 H Creatinine 2.4 H Creat Clearance w eGFR 19.68 Random Glucose 103 Calcium 8.7 Total Bilirubin 0.3 AST 29 ALT 13 Alkaline Phosphatase 93 Total Protein 6.8 Albumin 2.8 L Blood Type O NEGATIVE Antibody Screen Negative Crossmatch See Detail 11/25/17 14:05 WBC RBC Hgb Hct MCV MCH MCHC RDW Plt Count MPV Absolute Neuts (auto) Neutrophils % Lymphocytes % Monocytes % Eosinophils % Basophils % Nucleated RBC % Hypochromia Platelet Estimate Polychromasia Poikilocytosis Anisocytosis Microcytosis Macrocytosis Sodium Potassium Chloride Carbon Dioxide Anion Gap BUN Creatinine Creat Clearance w eGFR Random Glucose Calcium Total Bilirubin AST ALT Alkaline Phosphatase Total Protein Albumin Blood Type O NEGATIVE Antibody Screen Crossmatch ASSESSMENT/PLAN: Patient is an 85 year old female from [facility] with history significant for Parkinson's disease, dementia, HTN, HLD, CKD, hypothryoidism, presenting with complaint of left 4th toe discomfort. Left 4th toe cellulitis -Erythematous, tender to palpation, with purulent discharge -Vancomycin 1000mg, and Zosyn 3.37 grams given in ED -F/U ID consult (Dr. Doe) -F/U Vascular surgery consult (Dr. Goldman) -F/U Podiatric surgery consult (Dr. Guido) -F/U MRI of left lower extremity without contrast -Zosyn 2.25gm Q8H (renally dosed) -One time dose Vancomycin 750mg tomorrow (renally dosed) -Tylenol 650mg PO Q6H for pain Normocytic Aneia -Hb 6.6 (7.6 on prior admission). Hct 20.4, MCV 80.5, -May be secondary to anemia of chronic inflammation (osteoarthritis), vs chronic kidney disease -Transfuse 1 unit PRBCs -F/U iron studies -Follow CBC closely Acute on chronic kidney injury -Cr 2.4 today, baseline at 1.4 -Likely pre-renal in etilogy -Patient to receive 1 unit PRBCs and IV normal saline. Hyponatremia -Likely secondary to hypovolemia. Patient denies history of vomiting, diarrhea diuretic use. -IV normal saline at 50mL/ hour -Follow BMP closely Hypertension -Continue Amlodipine 10mg daily -Continue Hydralazine 100mg Hypothyroidism -Continue Synthroid 125mcg daily Depression -Continue Escitalopram 10mg daily FEN -IV normal saline at 75mL/ hour -Hyponatramia. Follow BMP -Sodium restricted diet, NPO after midnight for possible surgical intervention tomorrow. Prophylaxis -Heparin 5000u subq TID -Pantoprazole 40mg daily Disposition -Admit to medical-surgical floor for care Visit type - Emergency Visit Emergency Visit: Yes ED Registration Date: 11/25/17 Care time: The patient presented to the Emergency Department on the above date and was hospitalized for further evaluation of their emergent condition. - New Patient This patient is new to me today: Yes Date on this admission: 11/25/17 - Critical Care Critical Care patient: No
[2017-11-25] MEDS ORDERED: SODIUM CHLORIDE 1,000 ML IV SCH (15:30)
--- NOTE | 2017-11-25 17:06 | PN ---
Teaching Attending Note Name of Resident: Sonny Rowland ATTENDING PHYSICIAN STATEMENT I saw and evaluated the patient. I reviewed the resident's note and discussed the case with the resident. I agree with the resident's findings and plan as documented. SUBJECTIVE: OBJECTIVE: Vital Signs Period Temp Pulse Resp BP Sys/Rolon Pulse Ox Last 24 Hr 97.3 F-97.7 F 60-65 16-18 132-137/44-52 96-97 Laboratory Tests 11/25/17 11/25/17 11/25/17 12:23 12:23 13:37 WBC 5.8 RBC 2.53 L Hgb 6.6 L* Hct 20.4 L MCV 80.5 MCH 26.0 MCHC 32.3 RDW 20.7 H Plt Count 490 H MPV 7.3 L Absolute Neuts (auto) 4.5 Neutrophils % 77.7 Lymphocytes % 9.7 D Monocytes % 7.1 Eosinophils % 3.0 Basophils % 2.5 H Nucleated RBC % 0 Hypochromia 1+ Platelet Estimate Increased Polychromasia 0 Poikilocytosis 1+ Anisocytosis 1+ Microcytosis 1+ Macrocytosis 1+ Sodium 130 L Potassium 4.5 Chloride 98 Carbon Dioxide 20 L Anion Gap 12 BUN 67 H Creatinine 2.4 H Creat Clearance w eGFR 19.68 Random Glucose 103 Calcium 8.7 Total Bilirubin 0.3 AST 29 ALT 13 Alkaline Phosphatase 93 Total Protein 6.8 Albumin 2.8 L Blood Type O NEGATIVE Antibody Screen Negative Crossmatch See Detail 11/25/17 14:05 WBC RBC Hgb Hct MCV MCH MCHC RDW Plt Count MPV Absolute Neuts (auto) Neutrophils % Lymphocytes % Monocytes % Eosinophils % Basophils % Nucleated RBC % Hypochromia Platelet Estimate Polychromasia Poikilocytosis Anisocytosis Microcytosis Macrocytosis Sodium Potassium Chloride Carbon Dioxide Anion Gap BUN Creatinine Creat Clearance w eGFR Random Glucose Calcium Total Bilirubin AST ALT Alkaline Phosphatase Total Protein Albumin Blood Type O NEGATIVE Antibody Screen Crossmatch Home Medications Medication Instructions Recorded Amlodipine Besylate [Norvasc -] 10 mg PO DAILY tablet 06/09/17 Docusate Sodium [Colace -] 100 mg PO TID capsule 06/09/17 Ferrous Sulfate [Feosol] 325 mg PO TIDCM ud 06/09/17 Levothyroxine [Synthroid -] 100 mcg PO DAILY@0700 tablet 06/09/17 Pantoprazole Sodium [Protonix -] 40 mg PO DAILY tablet.ec 06/09/17 hydrALAZINE HCL [Apresoline -] 10 mg PO BID #0 tablet 06/09/17 ASSESSMENT AND PLAN:
[2017-11-25] MEDS: SODIUM CHLORIDE 1,000 ML IV SCH ×2 (18:08→19:20)
[2017-11-25] MEDS ORDERED: ACETAMINOPHEN 325 MG TABLET (FP) PO PRN (18:16)
[2017-11-25] MEDS ORDERED: PIPERACILLIN/TAZOBACTAM 2.25 GM VIAL IVPB ONE (20:51)
[2017-11-25] MEDS ORDERED: DEXTROSE 5%-WATER - 50 ML IVPB ONE (20:51)
[2017-11-25] MEDS: HEPARIN NA (PORCINE) 5,000 UNITS/ML 1ML VIAL SQ SCH (21:02)
[2017-11-25] MEDS: hydrALAZINE HCL 10 MG TABLET PO SCH (21:02)
[2017-11-25] MEDS: PIPERACILLIN/TAZOB 2.25 GM 2.25 GM in DEXTROSE 5%-WATER - 50 ML IVPB SCH (21:03)
[2017-11-25 21:34] LABS: HEMATOCRIT 24.4 % (32.4-45.2); MCH 26.3 pg (25.7-33.7); MCHC 32.6 g/dl (32.0-36.0); MEAN CELL VOLUME 80.5 fl (80-96); MEAN PLT VOLUME 6.7 fl (7.5-11.1); PLATELET COUNT 490 K/MM3 (134-434); RBC 3.03 M/mm3 (3.60-5.2); RDW 19.5 % (11.6-15.6); WHITE BLOOD COUNT 5.9 K/mm3 (4.0-10.0)
[2017-11-25] MEDS ORDERED: PIPERACILLIN/TAZOB 2.25 GM 2.25 GM in DEXTROSE 5%-WATER - 50 ML IVPB SCH (22:00)
[2017-11-26] MEDS ORDERED: PIPERACILLIN/TAZOBACTAM 2.25 GM VIAL IVPB ONE (00:57)
[2017-11-26] MEDS ORDERED: DEXTROSE 5%-WATER - 50 ML IVPB ONE (00:58)
[2017-11-26] MEDS: PIPERACILLIN/TAZOB 2.25 GM 2.25 GM in DEXTROSE 5%-WATER - 50 ML IVPB SCH (02:46)
[2017-11-26] MEDS: LEVOTHYROXINE NA 25 MCG TABLET (FP) PO SCH (06:23)
[2017-11-26] MEDS: HEPARIN NA (PORCINE) 5,000 UNITS/ML 1ML VIAL SQ SCH ×3 (06:39→21:37)
[2017-11-26 07:32] LABS: HEMATOCRIT 25.1 % (32.4-45.2); HEMOGLOBIN 8.2 GM/dL (10.7-15.3); MCH 26.3 pg (25.7-33.7); MCHC 32.8 g/dl (32.0-36.0); MEAN CELL VOLUME 80.1 fl (80-96); MEAN PLT VOLUME 6.6 fl (7.5-11.1); PLATELET COUNT 450 K/MM3 (134-434); RBC 3.13 M/mm3 (3.60-5.2); RDW 20.1 % (11.6-15.6); WHITE BLOOD COUNT 5.6 K/mm3 (4.0-10.0)
[2017-11-26 07:57] LABS: INR 0.92 (0.83-1.09); PROTHROMBIN TIME (PATIENT) 10.9 SEC (9.7-13.0)
[2017-11-26 08:00] LABS: ACTIVATED PTT 34.6 SECONDS (25.2-36.5)
[2017-11-26 08:07] LABS: ALBUMIN 2.8 g/dl (3.4-5.0); ALK PHOS 89 U/L (45-117); ANION GAP 11 MMOL/L (8-16); BILIRUBIN,TOTAL 0.8 mg/dL (0.2-1); BLOOD UREA NITROGEN 66 mg/dL (7-18); CALCIUM 8.8 mg/dL (8.5-10.1); CHLORIDE 101 mmol/L (98-107); CO2 19 mmol/L (21-32); CREATININE 2.4 mg/dL (0.55-1.3); GLUCOSE,RANDOM 69 mg/dL (74-106); MAGNESIUM 2.3 mg/dL (1.8-2.4); PHOSPHOROUS 4.8 mg/dL (2.5-4.9); POTASSIUM 4.2 mmol/L (3.5-5.1); SGOT/AST 22 U/L (15-37); SGPT/ALT 13 U/L (13-61); SODIUM 132 mmol/L (136-145)
--- NOTE | 2017-11-26 09:27 | PN ---
Progress Note, Physician History of Present Illness: Patient is an 85 year old female from [facility] with history significant for Parkinson's disease, dementia, HTN, HLD, CKD, hypothryoidism, presenting with complaint of left 4th toe discomfort. - Current Medication List Current Medications: Active Medications Acetaminophen (Tylenol -) 650 mg PO Q6H PRN PRN Reason: Fever Amlodipine Besylate (Norvasc -) 10 mg PO DAILY [facility] Escitalopram Oxalate (Lexapro -) 10 mg PO DAILY [facility] Heparin Sodium (Porcine) (Heparin -) 5,000 unit SQ TID [facility] Last Admin: 11/26/17 06:39 Dose: Not Given Hydralazine HCl (Apresoline -) 10 mg PO BID [facility] Last Admin: 11/25/17 21:02 Dose: 10 mg Piperacillin Sod/Tazobactam (Sod 2.25 gm/ Dextrose) 50 mls @ 100 mls/hr IVPB Q8H-IV [facility]; Protocol Vancomycin HCl 750 mg/ (Dextrose) 150 mls @ 150 mls/hr IVPB Q24H [facility]; Protocol Sodium Chloride (Normal Saline -) 1,000 mls @ 75 mls/hr IV ASDIR [facility] Stop: 11/26/17 15:25 Last Admin: 11/25/17 19:20 Dose: 75 mls/hr Levothyroxine Sodium (Synthroid -) 125 mcg PO DAILY@0700 [facility] Last Admin: 11/26/17 06:23 Dose: 125 mcg Pantoprazole Sodium (Protonix -) 40 mg PO DAILY [facility] - Objective Vital Signs: Vital Signs Temperature 98.4 F 11/26/17 06:00 Pulse Rate 71 11/26/17 06:00 Respiratory Rate 20 11/26/17 06:00 Blood Pressure 141/73 11/26/17 06:00 O2 Sat by Pulse Oximetry (%) 94 L 11/25/17 20:05 Labs: CBC, BMP 11/26/17 06:45 11/26/17 06:45 INR, PTT INR 0.92 (0.83-1.09) 11/26/17 06:45 Problem List - Problems (1) Anemia Assessment/Plan: -Hb 6.6 (7.6 on prior admission). Hct 20.4, MCV 80.5, -May be secondary to anemia of chronic inflammation (osteoarthritis), vs chronic kidney disease -Transfuse 1 unit PRBCs -F/U iron studies -Follow CBC closely Code(s): D64.9 - ANEMIA, UNSPECIFIED (2) Bacteremia Assessment/Plan: -IV abx -ID on board Code(s): R78.81 - BACTEREMIA (3) Renal failure (ARF), acute on chronic Assessment/Plan: -Cr 2.4 today, baseline at 1.4 -Likely pre-renal in etilogy -Patient to receive 1 unit PRBCs and IV normal saline. -Hyponatremia Likely secondary to hypovolemia. Patient denies history of vomiting, diarrhea diuretic use. -IV normal saline at 50mL/ hour -Follow BMP closely Code(s): N17.9 - ACUTE KIDNEY FAILURE, UNSPECIFIED; N18.9 - CHRONIC KIDNEY DISEASE, UNSPECIFIED (4) Skin ulcer of fourth toe of left foot Assessment/Plan: -Erythematous, tender to palpation, with purulent discharge -Vancomycin 1000mg, and Zosyn 3.37 grams given in ED -F/U ID consult (Dr. Doe) -F/U Vascular surgery consult (Dr. Goldman) -F/U Podiatric surgery consult (Dr. Guido) -F/U MRI of left lower extremity without contrast -Zosyn 2.25gm Q8H (renally dosed) Code(s): L97.529 - NON-PRESSURE CHRONIC ULCER OTH PRT LEFT FOOT W UNSP SEVERITY (5) HTN (hypertension) Assessment/Plan: -Continue Amlodipine 10mg daily -Continue Hydralazine 100mg Code(s): I10 - ESSENTIAL (PRIMARY) HYPERTENSION
--- NOTE | 2017-11-26 09:31 | EKG ---
Test Reason : Blood Pressure : / mmHG Vent. Rate : 076 BPM Atrial Rate : 076 BPM P-R Int : 172 ms QRS Dur : 114 ms QT Int : 428 ms P-R-T Axes : 049 028 250 degrees QTc Int : 481 ms NORMAL SINUS RHYTHM WITH SINUS ARRHYTHMIA INCOMPLETE LEFT BUNDLE BRANCH BLOCK PROLONGED QT ABNORMAL ECG Confirmed by YAMILE SAUCEDO MD ([id number]) on 11/26/2017 9:31:10 AM Referred By: Confirmed By:YAMILE SAUCEDO MD
[2017-11-26] MEDS ORDERED: PT OWN MED DRAWER 7, Y5N ONE (10:19)
[2017-11-26] MEDS: amLODIPine BESYLATE 10 MG TABLET (FP) PO SCH (10:22)
[2017-11-26] MEDS: PANTOPRAZOLE 40 MG TABLET (FP) PO SCH (10:22)
[2017-11-26] MEDS: ESCITALOPRAM OXALATE 10 MG TABLET (FP) PO SCH (10:22)
[2017-11-26] MEDS: hydrALAZINE HCL 10 MG TABLET PO SCH ×2 (10:22→21:37)
--- NOTE | 2017-11-26 10:54 | CON.ID ---
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 Cardio/Vascular: Yes: HTN, Hyperlipdemia Renal/: Yes: Renal Inusuff Heme/Onc: Yes: Anemia Rheumatology: Yes: Other (arthritis) Endocrine: Yes: Hypothyroidism - Past Surgical History Past Surgical History: Yes: Appendectomy, Tonsillectomy - Alcohol/Substance Use Hx Alcohol Use: No - Smoking History Smoking history: Former smoker Have you smoked in the past 12 months: No Aproximately how many cigarettes per day: 5 If you are a former smoker, when did you quit?: 5 years ago - Social History Usual Living Arrangement: Shelter ADL: Support Services History of Recent Travel: No Home Medications - Allergies Allergies/Adverse Reactions: Allergies Allergy/AdvReac Type Severity Reaction Status Date / Time No Known Allergies Allergy Verified 11/25/17 10:47 - Home Medications Home Medications: Ambulatory Orders Amlodipine Besylate [Norvasc -] 10 mg PO DAILY tablet 06/09/17 Docusate Sodium [Colace -] 100 mg PO TID capsule 06/09/17 Ferrous Sulfate [Feosol] 325 mg PO TIDCM ud 06/09/17 Levothyroxine [Synthroid -] 100 mcg PO DAILY@0700 tablet 06/09/17 Pantoprazole Sodium [Protonix -] 40 mg PO DAILY tablet.ec 06/09/17 hydrALAZINE HCL [Apresoline -] 10 mg PO BID #0 tablet 06/09/17 Family Disease History - Family Disease History Family History: Unable to Obtain Review of Systems - Review of Systems Constitutional: denies: Chills, Fever Eyes: reports: No Symptoms HENT: reports: No Symptoms Neck: reports: No Symptoms Cardiovascular: reports: No Symptoms. denies: Chest Pain Respiratory: reports: No Symptoms Gastrointestinal: reports: No Symptoms. denies: Abdominal Pain Genitourinary: reports: No Symptoms Musculoskeletal: reports: Other (foot and toe pain) Physical Exam Vital Signs: Vital Signs Temperature 98.4 F 11/26/17 06:00 Pulse Rate 71 11/26/17 06:00 Respiratory Rate 20 11/26/17 06:00 Blood Pressure 141/73 11/26/17 06:00 O2 Sat by Pulse Oximetry (%) 94 L 11/25/17 20:05 Constitutional: Yes: No Distress, Thin HENT: Yes: Atraumatic, Normocephalic Neck: Yes: Supple, Trachea Midline Cardiovascular: Yes: Regular Rate and Rhythm Respiratory: Yes: CTA Bilaterally Gastrointestinal: Yes: Normal Bowel Sounds, Soft ...Rectal Exam: Yes: Deferred Musculoskeletal: Yes: Other (severe arthritic changed of both hands) Extremities: Yes: Other (erythema and pain fourth tow left foot) Psychiatric: Yes: Alert Labs: CBC, BMP 11/26/17 06:45 11/26/17 06:45 Microbiology 11/25/17 12:15 Blood - Peripheral Venous Blood Culture - Preliminary Pending Organism prior wound culture of toe 11/22- mssa, proteus, enterococcus- all sensitive to unasyn Imaging - Results Chest X-ray: Report Reviewed Problem List - Problems (1) Bacteremia Code(s): R78.81 - BACTEREMIA (2) Toe infection Code(s): L08.9 - LOCAL INFECTION OF THE SKIN AND SUBCUTANEOUS TISSUE, UNSP (3) Renal failure (ARF), acute on chronic Code(s): N17.9 - ACUTE KIDNEY FAILURE, UNSPECIFIED; N18.9 - CHRONIC KIDNEY DISEASE, UNSPECIFIED (4) Anemia Code(s): D64.9 - ANEMIA, UNSPECIFIED Assessment/Plan received vancomycin and zosyn last night check vanco level now before redosing f/u cultures repeat blood cultures in am recent culture of toe with MSSA and proteus/enterococcus all sensitive to unasyn sitch to unasyn baselne cr 1.4- now 2.4 podiatry followup of toe f/u MRI check esr/crp
[2017-11-26] MEDS ORDERED: AMPICILLIN NA/SULBACTAM NA 1.5 GM VIAL ONE ×2 (11:54→17:33)
[2017-11-26] MEDS ORDERED: SODIUM CHLORIDE 100 ML IVPB ONE ×2 (11:54→17:33)
[2017-11-26] MEDS: AMPICILLIN NA/SULBACTAM NA 1.5 GM in SODIUM CHLORIDE 100 ML IVPB SCH ×2 (11:55→18:15)
[2017-11-26] MEDS ORDERED: VANCOMYCIN 750 MG in DEXTROSE 5%-WATER - 150 ML IVPB SCH (13:00)
--- NOTE | 2017-11-26 13:07 | CONSULT ---
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 Cardio/Vascular: Yes: HTN, Hyperlipdemia Renal/: Yes: Renal Inusuff Rheumatology: Yes: Other (arthritis) Endocrine: Yes: Hypothyroidism - Past Surgical History Past Surgical History: Yes: Appendectomy, Tonsillectomy - Alcohol/Substance Use Hx Alcohol Use: No - Smoking History Smoking history: Former smoker Have you smoked in the past 12 months: No Aproximately how many cigarettes per day: 5 If you are a former smoker, when did you quit?: 5 years ago - Social History Usual Living Arrangement: Detention ADL: Support Services History of Recent Travel: No Home Medications - Allergies Allergies/Adverse Reactions: Allergies Allergy/AdvReac Type Severity Reaction Status Date / Time No Known Allergies Allergy Verified 11/25/17 10:47 - Home Medications Home Medications: Ambulatory Orders Amlodipine Besylate [Norvasc -] 10 mg PO DAILY tablet 06/09/17 Docusate Sodium [Colace -] 100 mg PO TID capsule 06/09/17 Ferrous Sulfate [Feosol] 325 mg PO TIDCM ud 06/09/17 Levothyroxine [Synthroid -] 100 mcg PO DAILY@0700 tablet 06/09/17 Pantoprazole Sodium [Protonix -] 40 mg PO DAILY tablet.ec 06/09/17 hydrALAZINE HCL [Apresoline -] 10 mg PO BID #0 tablet 06/09/17 Physical Exam Vital Signs: Vital Signs Temperature 97.6 F 11/26/17 09:00 Pulse Rate 84 11/26/17 09:00 Respiratory Rate 20 11/26/17 09:00 Blood Pressure 135/73 11/26/17 09:00 O2 Sat by Pulse Oximetry (%) 94 L 11/25/17 20:05 Extremities: Yes: Other (cellulitis, edema, r/o om left 4th toe) Labs: CBC, BMP 11/26/17 06:45 11/26/17 06:45 Problem List - Problems (1) Toe infection Assessment/Plan: r/o om gout? cellulitis MRI and foot xray to be ordered. Vascular consult Dr. Goldman. ID on case. Discussed ampuation with patient. Currently is agreeing to proposed plan of treatment. Will go forward once vascular clears patient. Code(s): L08.9 - LOCAL INFECTION OF THE SKIN AND SUBCUTANEOUS TISSUE, UNSP
[2017-11-26] MEDS ORDERED: VANCOMYCIN 1 GRAM (PRE-DOCKED) 1,000 MG/250 ML BAG IVPB ONE (14:30)
--- NOTE | 2017-11-26 17:37 | CONSULT ---
Consult Consult Specialty:: vascular surgery Reason for Consultation:: Left 4th toe ulcer with bone exposed. 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 Cardio/Vascular: Yes: HTN, Hyperlipdemia Renal/: Yes: Renal Inusuff Rheumatology: Yes: Other (arthritis) Endocrine: Yes: Hypothyroidism - Past Surgical History Past Surgical History: Yes: Appendectomy, Tonsillectomy - Alcohol/Substance Use Hx Alcohol Use: No - Smoking History Smoking history: Former smoker Have you smoked in the past 12 months: No Aproximately how many cigarettes per day: 5 If you are a former smoker, when did you quit?: 5 years ago - Social History Usual Living Arrangement: Skilled Nursing ADL: Support Services History of Recent Travel: No Home Medications - Allergies Allergies/Adverse Reactions: Allergies Allergy/AdvReac Type Severity Reaction Status Date / Time No Known Allergies Allergy Verified 11/25/17 10:47 - Home Medications Home Medications: Ambulatory Orders Amlodipine Besylate [Norvasc -] 10 mg PO DAILY tablet 06/09/17 Docusate Sodium [Colace -] 100 mg PO TID capsule 06/09/17 Ferrous Sulfate [Feosol] 325 mg PO TIDCM ud 06/09/17 Levothyroxine [Synthroid -] 100 mcg PO DAILY@0700 tablet 06/09/17 Pantoprazole Sodium [Protonix -] 40 mg PO DAILY tablet.ec 06/09/17 hydrALAZINE HCL [Apresoline -] 10 mg PO BID #0 tablet 06/09/17 Review of Systems - Review of Systems Constitutional: reports: No Symptoms Eyes: reports: No Symptoms HENT: reports: No Symptoms Neck: reports: No Symptoms Cardiovascular: reports: No Symptoms Respiratory: reports: No Symptoms Gastrointestinal: reports: No Symptoms Genitourinary: reports: No Symptoms Breasts: reports: No Symptoms Reported Musculoskeletal: reports: No Symptoms Integumentary: reports: No Symptoms Neurological: reports: No Symptoms Endocrine: reports: No Symptoms Hematology/Lymphatic: reports: No Symptoms Psychiatric: reports: No Symptoms Physical Exam Vital Signs: Vital Signs Temperature 97.5 F L 11/26/17 14:30 Pulse Rate 67 11/26/17 14:30 Respiratory Rate 20 11/26/17 14:30 Blood Pressure 141/56 L 11/26/17 14:30 O2 Sat by Pulse Oximetry (%) 94 L 11/25/17 20:05 Constitutional: Yes: Well Nourished, No Distress, Calm Eyes: Yes: WNL, Conjunctiva Clear, EOM Intact HENT: Yes: WNL, Atraumatic, Normocephalic Neck: Yes: WNL, Supple, Trachea Midline Cardiovascular: Yes: WNL, Regular Rate and Rhythm Respiratory: Yes: WNL, Regular, CTA Bilaterally Gastrointestinal: Yes: WNL, Normal Bowel Sounds ...Rectal Exam: Yes: WNL Renal/: Yes: WNL Breast(s): Yes: WNL Musculoskeletal: Yes: WNL Extremities: Yes: WNL Edema: LLE: 1+, RLE: 1+ Peripheral Pulses WNL: No Integumentary: Yes: WNL Neurological: Yes: WNL, Alert, Oriented ...Motor Strength: WNL Psychiatric: Yes: WNL Labs: CBC, BMP 11/26/17 06:45 11/26/17 06:45 Problem List - Problems (1) Skin ulcer of fourth toe of left foot with necrosis of bone Assessment/Plan: left 4th toe ulcer with bone exposed. 1. Will follow MRI 2. IV antibiotics. 3. Pt has a Cr of 2.4. So cannot get CTA to check runoff into foot. Pt does not have a palapble pulse. 4. If MRI shows osteo, can try PICC line with antibiotics. Can also try HBO. 5. Will follow MRI. Bari herrera dO Code(s): L97.524 - NON-PRS CHRONIC ULCER OTH PRT LEFT FOOT W NECROSIS OF BONE (2) Toe infection Code(s): L08.9 - LOCAL INFECTION OF THE SKIN AND SUBCUTANEOUS TISSUE, UNSP
--- NOTE | 2017-11-26 17:59 | CONSULT ---
Consult Consult Specialty:: Nephrology Reason for Consultation:: LUCERO - History of Present Illness Chief Complaint: sent in for left 4th toe ulcer History of Present Illness: Pt is a 77 year old female with pmhx of HTN, CKD, Parkinsons, Dementia and depression who was sent in from the wound center for left forth toe ulcer. She was sent in for possible amputations. She was found to be in LUCERO and I was called to evaluate her. She denies history of CKD although she does have abnormal creatinine values in the record. She denies shortness of breath. She denies dysuria or hematuria. She denies nsaid use. She denies chest pain or palpitations. SHe denies fevers or chills. She is a poor historian. 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, Parkinson's Cardio/Vascular: Yes: HTN, Hyperlipdemia Renal/: Yes: Renal Inusuff Rheumatology: Yes: Other (arthritis) Endocrine: Yes: Hypothyroidism - Past Surgical History Past Surgical History: Yes: Appendectomy, Tonsillectomy - Alcohol/Substance Use Hx Alcohol Use: No - Smoking History Smoking history: Former smoker Have you smoked in the past 12 months: No Aproximately how many cigarettes per day: 5 If you are a former smoker, when did you quit?: 5 years ago - Social History Usual Living Arrangement: Custodial ADL: Support Services History of Recent Travel: No Home Medications - Allergies Allergies/Adverse Reactions: Allergies Allergy/AdvReac Type Severity Reaction Status Date / Time No Known Allergies Allergy Verified 11/25/17 10:47 - Home Medications Home Medications: Ambulatory Orders Amlodipine Besylate [Norvasc -] 10 mg PO DAILY tablet 06/09/17 Docusate Sodium [Colace -] 100 mg PO TID capsule 06/09/17 Ferrous Sulfate [Feosol] 325 mg PO TIDCM ud 06/09/17 Levothyroxine [Synthroid -] 100 mcg PO DAILY@0700 tablet 06/09/17 Pantoprazole Sodium [Protonix -] 40 mg PO DAILY tablet.ec 06/09/17 hydrALAZINE HCL [Apresoline -] 10 mg PO BID #0 tablet 06/09/17 Family Disease History - Family Disease History Family History: Denies Review of Systems - Review of Systems Constitutional: reports: No Symptoms Eyes: reports: No Symptoms HENT: reports: No Symptoms Neck: reports: No Symptoms Cardiovascular: reports: No Symptoms Gastrointestinal: reports: No Symptoms Genitourinary: reports: No Symptoms Musculoskeletal: reports: Joint Swelling, Other (toe ulcer) Neurological: reports: Pre-Existing Deficit Psychiatric: reports: No Symptoms Physical Exam Vital Signs: Vital Signs Temperature 97.5 F L 11/26/17 14:30 Pulse Rate 67 11/26/17 14:30 Respiratory Rate 20 11/26/17 14:30 Blood Pressure 141/56 L 11/26/17 14:30 O2 Sat by Pulse Oximetry (%) 94 L 11/25/17 20:05 Constitutional: Yes: Calm Eyes: Yes: Conjunctiva Clear HENT: Yes: Atraumatic Neck: Yes: Supple Cardiovascular: Yes: S1, S2 Respiratory: Yes: CTA Bilaterally Gastrointestinal: Yes: Normal Bowel Sounds, Soft Renal/: Yes: WNL Musculoskeletal: Yes: Joint Swelling, Other (arthritis) Edema: No Wound/Incision: Yes: Dressing Dry and Intact Neurological: Yes: Oriented Psychiatric: Yes: Oriented Labs: CBC, BMP 11/26/17 06:45 11/26/17 06:45 Laboratory Tests 06/07/17 06/08/17 06/09/17 07:50 09:10 06:30 WBC Hgb Sodium Potassium Chloride Creatinine 1.4 H 1.4 H 1.4 H Iron TIBC Iron Saturation Transferrin 11/25/17 11/25/17 11/25/17 12:23 12:23 20:20 WBC Hgb 6.6 L* 8.0 L Sodium Potassium Chloride Creatinine 2.4 H Iron TIBC Iron Saturation Transferrin 11/26/17 11/26/17 11/26/17 06:45 06:45 06:45 WBC 5.6 Hgb 8.2 L Sodium 132 L Potassium 4.2 Chloride 101 Creatinine 2.4 H Iron Pending TIBC Pending Iron Saturation Pending Transferrin Pending Imaging - Results Chest X-ray: Report Reviewed Problem List - Problems (1) Renal failure (ARF), acute on chronic Code(s): N17.9 - ACUTE KIDNEY FAILURE, UNSPECIFIED; N18.9 - CHRONIC KIDNEY DISEASE, UNSPECIFIED Assessment/Plan Current Medications Generic Name Dose Route Start Last Admin Trade Name Freq PRN Reason Stop Dose Admin Acetaminophen 650 mg 10/04/18 18:16 Tylenol - PO Q6H PRN Fever Amlodipine Besylate 10 mg 11/26/17 10:00 11/26/17 10:22 Norvasc - PO 10 mg DAILY [facility] Administration Escitalopram Oxalate 10 mg 11/26/17 10:00 11/26/17 10:22 Lexapro - PO 10 mg DAILY [facility] Administration Heparin Sodium (Porcine) 5,000 unit 11/25/17 22:00 11/26/17 14:46 Heparin - SQ 5,000 unit TID [facility] Administration Hydralazine HCl 10 mg 11/25/17 22:00 11/26/17 10:22 Apresoline - PO 10 mg BID [facility] Administration Ampicillin Sodium/Sulbactam 100 mls @ 200 mls/hr 11/26/17 11:15 11/26/17 11: 55 Sodium 1.5 gm/ Sodium Chloride IVPB 200 mls/hr Q8H-IV [facility] Administration Levothyroxine Sodium 125 mcg 11/26/17 07:00 11/26/17 06:23 Synthroid - PO 125 mcg DAILY@0700 [facility] Administration Pantoprazole Sodium 40 mg 11/26/17 10:00 11/26/17 10:22 Protonix - PO 40 mg DAILY [facility] Administration Impression 1. LUCERO 2. CKD 3. toe ulcer 4. hypothryoid 5. dementia 6. parkinsons 7. HTN 8. 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
[2017-11-26] MEDS ORDERED: DEXTROSE 5%-NORMAL SALINE 1,000 ML IV SCH (18:00)
[2017-11-27] MEDS: AMPICILLIN NA/SULBACTAM NA 1.5 GM in SODIUM CHLORIDE 100 ML IVPB SCH ×3 (02:02→17:16)
[2017-11-27] MEDS ORDERED: AMPICILLIN NA/SULBACTAM NA 1.5 GM VIAL ONE ×3 (02:50→16:51)
[2017-11-27] MEDS ORDERED: SODIUM CHLORIDE 100 ML IVPB ONE ×3 (02:50→16:51)
[2017-11-27] MEDS: HEPARIN NA (PORCINE) 5,000 UNITS/ML 1ML VIAL SQ SCH ×3 (06:25→21:10)
[2017-11-27] MEDS: LEVOTHYROXINE NA 25 MCG TABLET (FP) PO SCH (06:26)
[2017-11-27 07:58] LABS: BASO % 2.1 % (0-2.0); EOS % 4.5 % (0-4.5); HEMATOCRIT 24.1 % (32.4-45.2); HEMOGLOBIN 7.8 GM/dL (10.7-15.3); LYMPH % 11.5 % (8-40); MCH 26.2 pg (25.7-33.7); MCHC 32.4 g/dl (32.0-36.0); MEAN CELL VOLUME 80.9 fl (80-96); MEAN PLT VOLUME 6.7 fl (7.5-11.1); MONO % 8.9 % (3.8-10.2); PLATELET COUNT 415 K/MM3 (134-434); RBC 2.98 M/mm3 (3.60-5.2); RDW 20.1 % (11.6-15.6); WHITE BLOOD COUNT 5.8 K/mm3 (4.0-10.0)
[2017-11-27 08:07] LABS: SERUM IRON SATURATION 72 % (15-55); TOTAL IRON BINDING CAPACITY 259 ug/dL (250-450); UIBC 72 ug/dL (118-369)
[2017-11-27 09:13] LABS: ALBUMIN 2.6 g/dl (3.4-5.0); ALK PHOS 80 U/L (45-117); ANION GAP 12 MMOL/L (8-16); BILIRUBIN,TOTAL 0.4 mg/dL (0.2-1); BLOOD UREA NITROGEN 61 mg/dL (7-18); CALCIUM 8.8 mg/dL (8.5-10.1); CHLORIDE 105 mmol/L (98-107); CO2 19 mmol/L (21-32); CREATININE 2.4 mg/dL (0.55-1.3); GLUCOSE,RANDOM 74 mg/dL (74-106); POTASSIUM 3.5 mmol/L (3.5-5.1); SGOT/AST 19 U/L (15-37); SGPT/ALT 11 U/L (13-61); SODIUM 137 mmol/L (136-145); TOT PROT 6.6 g/dl (6.4-8.2)
[2017-11-27] MEDS: hydrALAZINE HCL 10 MG TABLET PO SCH ×2 (10:12→21:10)
[2017-11-27] MEDS: PANTOPRAZOLE 40 MG TABLET (FP) PO SCH (10:12)
[2017-11-27] MEDS: amLODIPine BESYLATE 10 MG TABLET (FP) PO SCH (10:12)
[2017-11-27] MEDS: ESCITALOPRAM OXALATE 10 MG TABLET (FP) PO SCH (10:12)
--- NOTE | 2017-11-27 11:06 | PN ---
Progress Note (short form) - Note Progress Note: Fuv left foot. +demarcating 4th toe left, +cellulitis, +edema, +dusky, om 4th toe? wound 4th toe left Santyl dressing change 4th toe left. Awaiting MRI and vascular to schedule procedure if necessary. Patient going down for testing now. Problem List - Problems (1) Toe infection Code(s): L08.9 - LOCAL INFECTION OF THE SKIN AND SUBCUTANEOUS TISSUE, UNSP
--- NOTE | 2017-11-27 11:29 | PN ---
Progress Note, Physician Chief Complaint: AWAKE ALERT X 2 NAD EVENTS AND NOTES REVIEWED - Current Medication List Current Medications: Active Medications Acetaminophen (Tylenol -) 650 mg PO Q6H PRN PRN Reason: Fever Amlodipine Besylate (Norvasc -) 10 mg PO DAILY [facility] Last Admin: 11/27/17 10:12 Dose: 10 mg Collagenase (Santyl -) 1 applic TP DAILY [facility]; Protocol Escitalopram Oxalate (Lexapro -) 10 mg PO DAILY [facility] Last Admin: 11/27/17 10:12 Dose: 10 mg Heparin Sodium (Porcine) (Heparin -) 5,000 unit SQ TID [facility] Last Admin: 11/27/17 06:25 Dose: 5,000 unit Hydralazine HCl (Apresoline -) 10 mg PO BID [facility] Last Admin: 11/27/17 10:12 Dose: 10 mg Ampicillin Sodium/Sulbactam (Sodium 1.5 gm/ Sodium Chloride) 100 mls @ 200 mls/ hr IVPB Q8H-IV [facility] Last Admin: 11/27/17 10:12 Dose: 200 mls/hr Dextrose/Sodium Chloride (D5-Ns -) 1,000 mls @ 50 mls/hr IV ASDIR [facility] Last Admin: 11/26/17 18:50 Dose: 50 mls/hr Levothyroxine Sodium (Synthroid -) 125 mcg PO DAILY@0700 [facility] Last Admin: 11/27/17 06:26 Dose: 125 mcg Pantoprazole Sodium (Protonix -) 40 mg PO DAILY [facility] Last Admin: 11/27/17 10:12 Dose: 40 mg - Objective Vital Signs: Vital Signs Temperature 97.4 F L 11/27/17 09:30 Pulse Rate 66 11/27/17 09:30 Respiratory Rate 20 11/27/17 09:30 Blood Pressure 152/66 11/27/17 09:30 O2 Sat by Pulse Oximetry (%) 94 L 11/25/17 20:05 Constitutional: Yes: No Distress Eyes: Yes: WNL HENT: Yes: WNL Neck: Yes: WNL Cardiovascular: Yes: WNL Respiratory: Yes: WNL Gastrointestinal: Yes: WNL Genitourinary: Yes: Incontinence Musculoskeletal: Yes: Muscle Weakness Extremities: Yes: Deformity (LEFT FOOT ULCER) Edema: No Integumentary: Yes: Other (LEFT FOOT WOUND) Wound/Incision: Yes: Dressing Dry and Intact Neurological: Yes: Confusion, Pre-Existing Deficit ...Motor Strength: LLE Psychiatric: Yes: Other Labs: CBC, BMP 11/27/17 06:15 11/27/17 06:15 INR, PTT INR 0.92 (0.83-1.09) 11/26/17 06:45 Problem List - Problems (1) Anemia Code(s): D64.9 - ANEMIA, UNSPECIFIED (2) Bacteremia Code(s): R78.81 - BACTEREMIA (3) HTN (hypertension) Code(s): I10 - ESSENTIAL (PRIMARY) HYPERTENSION (4) Prerenal renal failure Code(s): N19 - UNSPECIFIED KIDNEY FAILURE (5) Renal failure (ARF), acute on chronic Code(s): N17.9 - ACUTE KIDNEY FAILURE, UNSPECIFIED; N18.9 - CHRONIC KIDNEY DISEASE, UNSPECIFIED (6) Skin ulcer of fourth toe of left foot Code(s): L97.529 - NON-PRESSURE CHRONIC ULCER OTH PRT LEFT FOOT W UNSP SEVERITY (7) Skin ulcer of fourth toe of left foot with necrosis of bone Code(s): L97.524 - NON-PRS CHRONIC ULCER OTH PRT LEFT FOOT W NECROSIS OF BONE (8) Toe infection Code(s): L08.9 - LOCAL INFECTION OF THE SKIN AND SUBCUTANEOUS TISSUE, UNSP Assessment/Plan CONTINUE IV ABX LIKELY NEEDS PICC LINE AND IT SUPPORT ANALYST ABX NOT A CANDIDATE FOR CT ANGIO DUE TO CKD MONITOR BUN/CREAT RENAL EVAL APPRECIATED PODIATRY/VASC F/U AMPUTATE/DEBRIDE?? DVT PROPHYLAXIS STOOL OCCULT BLOOD CHECK/ANEMIA ON HEPARIN SQ
--- NOTE | 2017-11-27 13:53 | PN ---
Progress Note, Physician History of Present Illness: Pt seen and examined at bedside. She is awake and alert. She denies shortness of breath. - Current Medication List Current Medications: Active Medications Acetaminophen (Tylenol -) 650 mg PO Q6H PRN PRN Reason: Fever Amlodipine Besylate (Norvasc -) 10 mg PO DAILY [facility] Last Admin: 11/27/17 10:12 Dose: 10 mg Collagenase (Santyl -) 1 applic TP DAILY [facility]; Protocol Escitalopram Oxalate (Lexapro -) 10 mg PO DAILY [facility] Last Admin: 11/27/17 10:12 Dose: 10 mg Heparin Sodium (Porcine) (Heparin -) 5,000 unit SQ TID [facility] Last Admin: 11/27/17 06:25 Dose: 5,000 unit Hydralazine HCl (Apresoline -) 10 mg PO BID [facility] Last Admin: 11/27/17 10:12 Dose: 10 mg Ampicillin Sodium/Sulbactam (Sodium 1.5 gm/ Sodium Chloride) 100 mls @ 200 mls/ hr IVPB Q8H-IV [facility] Last Admin: 11/27/17 10:12 Dose: 200 mls/hr Dextrose/Sodium Chloride (D5-Ns -) 1,000 mls @ 50 mls/hr IV ASDIR [facility] Last Admin: 11/26/17 18:50 Dose: 50 mls/hr Levothyroxine Sodium (Synthroid -) 125 mcg PO DAILY@0700 [facility] Last Admin: 11/27/17 06:26 Dose: 125 mcg Pantoprazole Sodium (Protonix -) 40 mg PO DAILY [facility] Last Admin: 11/27/17 10:12 Dose: 40 mg - Objective Vital Signs: Vital Signs Temperature 97.4 F L 11/27/17 09:30 Pulse Rate 66 11/27/17 09:30 Respiratory Rate 20 11/27/17 09:30 Blood Pressure 152/66 11/27/17 09:30 O2 Sat by Pulse Oximetry (%) 94 L 11/25/17 20:05 Constitutional: Yes: Calm Eyes: Yes: Conjunctiva Clear HENT: Yes: Atraumatic Cardiovascular: Yes: S1, S2 Respiratory: Yes: CTA Bilaterally Gastrointestinal: Yes: Soft Genitourinary: Yes: WNL Musculoskeletal: Yes: Muscle Weakness Edema: No Wound/Incision: Yes: Dressing Dry and Intact Labs: CBC, BMP 11/27/17 06:15 11/27/17 06:15 INR, PTT INR 0.92 (0.83-1.09) 11/26/17 06:45 - ....Imaging Ultrasound: Report Reviewed Problem List - Problems (1) Renal failure (ARF), acute on chronic Code(s): N17.9 - ACUTE KIDNEY FAILURE, UNSPECIFIED; N18.9 - CHRONIC KIDNEY DISEASE, UNSPECIFIED Assessment/Plan Current Medications Generic Name Dose Route Start Last Admin Trade Name Freq PRN Reason Stop Dose Admin Acetaminophen 650 mg 11/25/17 18:16 Tylenol - PO Q6H PRN Fever Amlodipine Besylate 10 mg 11/26/17 10:00 11/27/17 10:12 Norvasc - PO 10 mg DAILY [facility] Administration Collagenase 1 applic 11/27/17 11:15 Santyl - TP DAILY [facility] Protocol Escitalopram Oxalate 10 mg 11/26/17 10:00 11/27/17 10:12 Lexapro - PO 10 mg DAILY [facility] Administration Heparin Sodium (Porcine) 5,000 unit 11/25/17 22:00 11/27/17 06:25 Heparin - SQ 5,000 unit TID [facility] Administration Hydralazine HCl 10 mg 11/25/17 22:00 11/27/17 10:12 Apresoline - PO 10 mg BID [facility] Administration Ampicillin Sodium/Sulbactam 100 mls @ 200 mls/hr 11/26/17 11:15 11/27/17 10: 12 Sodium 1.5 gm/ Sodium Chloride IVPB 200 mls/hr Q8H-IV [facility] Administration Dextrose/Sodium Chloride 1,000 mls @ 50 mls/hr 11/26/17 18:00 11/26/17 18:50 D5-Ns - IV 50 mls/hr ASDIR [facility] Administration Levothyroxine Sodium 125 mcg 11/26/17 07:00 11/27/17 06:26 Synthroid - PO 125 mcg DAILY@0700 [facility] Administration Pantoprazole Sodium 40 mg 11/26/17 10:00 11/27/17 10:12 Protonix - PO 40 mg DAILY [facility] Administration Impression 1. LUCERO 2. CKD 3. toe ulcer 4. hypothryoid 5. dementia 6. parkinsons 7. HTN 8. hyponatremia 9. right renal cyst Plan - check urine studies - bun improving - sodium stable - repeat labs in am - repeat bladder scan after she voids - encourage PO intake - cont fluids Dr John
[2017-11-27] MEDS ORDERED: POTASSIUM CHLORIDE TABS 20 MEQ TABLET.ER (FP) PO ONE (13:54)
[2017-11-27] MEDS: DEXTROSE 5%-NORMAL SALINE 1,000 ML IV SCH (14:41)
--- NOTE | 2017-11-27 15:51 | PN ---
Progress Note (short form) - Note Progress Note: refusing to have dressing removed from foot denies pain today awaiting MRI Vital Signs Period Temp Pulse Resp BP Sys/Rolon Pulse Ox Last 24 Hr 97.4 F-98.1 F 66-79 17-20 143-159/55-72 cor-rrr lungs clear abd soft,nt ext foot bandaged CBC, BMP 11/27/17 06:15 11/27/17 06:15 Laboratory Tests 11/27/17 11/27/17 06:15 06:15 ESR 81 H C-Reactive Protein 2.3 H Microbiology 11/25/17 12:23 Blood - Peripheral Venous Blood Culture - Preliminary NO GROWTH OBTAINED AFTER 48 HOURS, INCUBATION TO CONTINUE FOR 3 DAYS. 11/25/17 17:56 Foot - Left Gram Stain - Final 11/25/17 17:56 Foot - Left Wound Culture - Preliminary Proteus Species Presumptive Mssa (Pbp2a Neg) Pending Organism 11/25/17 12:15 Blood - Peripheral Venous Blood Culture - Preliminary Staphylococcus Coagulase Neg a/p toe infection r/o osteo, continue unasyn blood culture isolate contaminant no need for further vancomycin f/u imaging f/u podiatry Problem List - Problems (1) Bacteremia Code(s): R78.81 - BACTEREMIA (2) Toe infection Code(s): L08.9 - LOCAL INFECTION OF THE SKIN AND SUBCUTANEOUS TISSUE, UNSP (3) Renal failure (ARF), acute on chronic Code(s): N17.9 - ACUTE KIDNEY FAILURE, UNSPECIFIED; N18.9 - CHRONIC KIDNEY DISEASE, UNSPECIFIED (4) Anemia Code(s): D64.9 - ANEMIA, UNSPECIFIED
[2017-11-27] MEDS: COLLAGENASE CLOSTRIDIUM HIST. 30 GRAMS TUBE TP SCH (18:21)
[2017-11-28] MEDS ORDERED: SODIUM CHLORIDE 100 ML IVPB ONE ×3 (00:50→16:53)
[2017-11-28] MEDS ORDERED: AMPICILLIN NA/SULBACTAM NA 1.5 GM VIAL ONE ×3 (00:50→16:53)
[2017-11-28] MEDS: AMPICILLIN NA/SULBACTAM NA 1.5 GM in SODIUM CHLORIDE 100 ML IVPB SCH ×3 (01:43→17:35)
[2017-11-28] MEDS: DEXTROSE 5%-NORMAL SALINE 1,000 ML IV SCH ×2 (06:06→14:37)
[2017-11-28] MEDS: HEPARIN NA (PORCINE) 5,000 UNITS/ML 1ML VIAL SQ SCH ×3 (06:06→21:40)
[2017-11-28] MEDS: LEVOTHYROXINE NA 25 MCG TABLET (FP) PO SCH (06:06)
[2017-11-28 06:58] LABS: HEMATOCRIT 24.8 % (32.4-45.2); HEMOGLOBIN 7.9 GM/dL (10.7-15.3); MCH 25.7 pg (25.7-33.7); MEAN CELL VOLUME 80.4 fl (80-96); MEAN PLT VOLUME 6.7 fl (7.5-11.1); PLATELET COUNT 403 K/MM3 (134-434); RBC 3.08 M/mm3 (3.60-5.2); RDW 20.1 % (11.6-15.6); WHITE BLOOD COUNT 6.2 K/mm3 (4.0-10.0)
[2017-11-28 07:28] LABS: ANION GAP 11 MMOL/L (8-16); BLOOD UREA NITROGEN 55 mg/dL (7-18); CALCIUM 8.8 mg/dL (8.5-10.1); CHLORIDE 109 mmol/L (98-107); CO2 20 mmol/L (21-32); CREATININE 2.3 mg/dL (0.55-1.3); GLUCOSE,RANDOM 81 mg/dL (74-106); POTASSIUM 3.6 mmol/L (3.5-5.1); SODIUM 140 mmol/L (136-145)
[2017-11-28] MEDS: hydrALAZINE HCL 10 MG TABLET PO SCH ×2 (09:45→21:40)
[2017-11-28] MEDS: ESCITALOPRAM OXALATE 10 MG TABLET (FP) PO SCH (09:45)
[2017-11-28] MEDS: amLODIPine BESYLATE 10 MG TABLET (FP) PO SCH (09:45)
[2017-11-28] MEDS: PANTOPRAZOLE 40 MG TABLET (FP) PO SCH (09:46)
--- NOTE | 2017-11-28 11:52 | PN ---
Progress Note, Physician Chief Complaint: EVENTS AND NOTED REVIEWED AWAKE AND ALERT, NAD TOLERATING DIET WELL DENIES CHEST PAIN/SOB - Current Medication List Current Medications: Active Medications Acetaminophen (Tylenol -) 650 mg PO Q6H PRN PRN Reason: Fever Amlodipine Besylate (Norvasc -) 10 mg PO DAILY [facility] Last Admin: 11/28/17 09:45 Dose: 10 mg Collagenase (Santyl -) 1 applic TP DAILY [facility]; Protocol Last Admin: 11/27/17 18:21 Dose: 1 applic Escitalopram Oxalate (Lexapro -) 10 mg PO DAILY [facility] Last Admin: 11/28/17 09:45 Dose: 10 mg Heparin Sodium (Porcine) (Heparin -) 5,000 unit SQ TID [facility] Last Admin: 11/28/17 06:06 Dose: 5,000 unit Hydralazine HCl (Apresoline -) 10 mg PO BID [facility] Last Admin: 11/28/17 09:45 Dose: 10 mg Ampicillin Sodium/Sulbactam (Sodium 1.5 gm/ Sodium Chloride) 100 mls @ 200 mls/ hr IVPB Q8H-IV [facility] Last Admin: 11/28/17 09:46 Dose: 200 mls/hr Dextrose/Sodium Chloride (D5-Ns -) 1,000 mls @ 65 mls/hr IV ASDIR [facility] Last Admin: 11/28/17 06:06 Dose: 65 mls/hr Levothyroxine Sodium (Synthroid -) 125 mcg PO DAILY@0700 [facility] Last Admin: 11/28/17 06:06 Dose: 125 mcg Pantoprazole Sodium (Protonix -) 40 mg PO DAILY [facility] Last Admin: 11/28/17 09:46 Dose: 40 mg - Objective Vital Signs: Vital Signs Temperature 97.5 F L 11/28/17 09:40 Pulse Rate 80 11/28/17 09:40 Respiratory Rate 18 11/28/17 09:40 Blood Pressure 160/68 11/28/17 09:40 O2 Sat by Pulse Oximetry (%) 100 11/27/17 21:00 Constitutional: Yes: No Distress Eyes: Yes: WNL Cardiovascular: Yes: Regular Rate and Rhythm Respiratory: Yes: CTA Bilaterally Gastrointestinal: Yes: Soft Genitourinary: Yes: Incontinence Musculoskeletal: Yes: Muscle Weakness Edema: No Wound/Incision: Yes: Dressing Dry and Intact Neurological: Yes: Pre-Existing Deficit, Weakness ...Motor Strength: LLE, RLE Labs: CBC, BMP 11/28/17 06:00 11/28/17 06:00 INR, PTT INR 0.92 (0.83-1.09) 11/26/17 06:45 Problem List - Problems (1) Anemia Code(s): D64.9 - ANEMIA, UNSPECIFIED (2) Bacteremia Code(s): R78.81 - BACTEREMIA (3) HTN (hypertension) Code(s): I10 - ESSENTIAL (PRIMARY) HYPERTENSION (4) Prerenal renal failure Code(s): N19 - UNSPECIFIED KIDNEY FAILURE (5) Renal failure (ARF), acute on chronic Code(s): N17.9 - ACUTE KIDNEY FAILURE, UNSPECIFIED; N18.9 - CHRONIC KIDNEY DISEASE, UNSPECIFIED (6) Skin ulcer of fourth toe of left foot Code(s): L97.529 - NON-PRESSURE CHRONIC ULCER OTH PRT LEFT FOOT W UNSP SEVERITY (7) 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 DVT PROPHYLAXIS STOOL OCCULT BLOOD POSITIVE, REPEAT CBC MONITOR H/H UA ORDERED PENDING STRAIGHT CATH FOR URINE COLLECTION
--- NOTE | 2017-11-28 13:13 | PN ---
Progress Note (short form) - Note Progress Note: Fuv left foot. +demarcating 4th toe left, +improved cellulitis, +edema, +improved duskiness, om 4th toe? wound 4th toe left Santyl dressing change 4th toe left. Awaiting MRI and vascular to schedule procedure if necessary. Dressing change done. Problem List - Problems (1) Toe infection Code(s): L08.9 - LOCAL INFECTION OF THE SKIN AND SUBCUTANEOUS TISSUE, UNSP
[2017-11-28] MEDS: COLLAGENASE CLOSTRIDIUM HIST. 30 GRAMS TUBE TP SCH (13:55)
--- NOTE | 2017-11-28 16:25 | PN ---
Progress Note, Physician History of Present Illness: Pt seen and examined at bedside. She is unable to give urine. She denies shortness of breath. - Current Medication List Current Medications: Active Medications Acetaminophen (Tylenol -) 650 mg PO Q6H PRN PRN Reason: Fever Amlodipine Besylate (Norvasc -) 10 mg PO DAILY [facility] Last Admin: 11/28/17 09:45 Dose: 10 mg Collagenase (Santyl -) 1 applic TP DAILY [facility]; Protocol Last Admin: 11/28/17 13:55 Dose: Not Given Escitalopram Oxalate (Lexapro -) 10 mg PO DAILY [facility] Last Admin: 11/28/17 09:45 Dose: 10 mg Heparin Sodium (Porcine) (Heparin -) 5,000 unit SQ TID [facility] Last Admin: 11/28/17 13:47 Dose: 5,000 unit Hydralazine HCl (Apresoline -) 10 mg PO BID [facility] Last Admin: 11/28/17 09:45 Dose: 10 mg Ampicillin Sodium/Sulbactam (Sodium 1.5 gm/ Sodium Chloride) 100 mls @ 200 mls/ hr IVPB Q8H-IV [facility] Last Admin: 11/28/17 09:46 Dose: 200 mls/hr Dextrose/Sodium Chloride (D5-Ns -) 1,000 mls @ 65 mls/hr IV ASDIR [facility] Last Admin: 11/28/17 14:37 Dose: Not Given Levothyroxine Sodium (Synthroid -) 125 mcg PO DAILY@0700 [facility] Last Admin: 11/28/17 06:06 Dose: 125 mcg Pantoprazole Sodium (Protonix -) 40 mg PO DAILY [facility] Last Admin: 11/28/17 09:46 Dose: 40 mg - Objective Vital Signs: Vital Signs Temperature 98.2 F 11/28/17 13:03 Pulse Rate 70 11/28/17 13:03 Respiratory Rate 18 11/28/17 13:03 Blood Pressure 154/68 11/28/17 13:03 O2 Sat by Pulse Oximetry (%) 92 L 11/28/17 09:00 Constitutional: Yes: Calm Eyes: Yes: Conjunctiva Clear HENT: Yes: Atraumatic Cardiovascular: Yes: S1, S2 Respiratory: Yes: CTA Bilaterally Gastrointestinal: Yes: Normal Bowel Sounds, Soft Genitourinary: Yes: Incontinence Musculoskeletal: Yes: Muscle Weakness Edema: No Neurological: Yes: Oriented Labs: CBC, BMP 10/07/18 06:00 11/28/17 06:00 INR, PTT INR 0.92 (0.83-1.09) 11/26/17 06:45 Problem List - Problems (1) Renal failure (ARF), acute on chronic Code(s): N17.9 - ACUTE KIDNEY FAILURE, UNSPECIFIED; N18.9 - CHRONIC KIDNEY DISEASE, UNSPECIFIED Assessment/Plan Current Medications Generic Name Dose Route Start Last Admin Trade Name Freq PRN Reason Stop Dose Admin Acetaminophen 650 mg 11/25/17 18:16 Tylenol - PO Q6H PRN Fever Amlodipine Besylate 10 mg 11/26/17 10:00 11/28/17 09:45 Norvasc - PO 10 mg DAILY [facility] Administration Collagenase 1 applic 11/27/17 11:15 11/28/17 13:55 Santyl - TP Not Given DAILY [facility] Protocol Escitalopram Oxalate 10 mg 11/26/17 10:00 11/28/17 09:45 Lexapro - PO 10 mg DAILY [facility] Administration Heparin Sodium (Porcine) 5,000 unit 11/25/17 22:00 11/28/17 13:47 Heparin - SQ 5,000 unit TID [facility] Administration Hydralazine HCl 10 mg 11/25/17 22:00 11/28/17 09:45 Apresoline - PO 10 mg BID [facility] Administration Ampicillin Sodium/Sulbactam 100 mls @ 200 mls/hr 11/26/17 11:15 11/28/17 09: 46 Sodium 1.5 gm/ Sodium Chloride IVPB 200 mls/hr Q8H-IV [facility] Administration Dextrose/Sodium Chloride 1,000 mls @ 65 mls/hr 11/27/17 13:54 11/28/17 14:37 D5-Ns - IV Not Given ASDIR [facility] Levothyroxine Sodium 125 mcg 11/26/17 07:00 11/28/17 06:06 Synthroid - PO 125 mcg DAILY@0700 [facility] Administration Pantoprazole Sodium 40 mg 11/26/17 10:00 11/28/17 09:46 Protonix - PO 40 mg DAILY [facility] Administration Impression 1. LUCERO 2. CKD 3. toe ulcer 4. hypothryoid 5. dementia 6. parkinsons 7. HTN 8. hyponatremia 9. right renal cyst Plan - cont fluids - repeat labs in am - pt unable to give urine sample - bun improving - sodium stable - encourage PO intake Dr John
--- NOTE | 2017-11-28 22:42 | RAPID ---
Physical Examination Vital Signs: Vital Signs Temperature 98.5 F 11/28/17 20:30 Pulse Rate 66 11/28/17 20:30 Respiratory Rate 18 11/28/17 20:30 Blood Pressure 158/78 11/28/17 20:30 O2 Sat by Pulse Oximetry (%) 92 L 11/28/17 09:00 Findings/Remarks: BP now 139/66, initial 189/91 Rapid Response called overhead. Pt seen in acute distress, verbalizing that she cannot breath, initial 02 sat was 86%. 60 mg lasix now ordered, EKG, ABG, chest xray, cbc/bmp, and Intake/output ordered. Placed on 100% nonrebreather, now satting at 100%. Time of rapid: Labs: CBC, BMP 11/28/17 06:00 11/28/17 06:00
[2017-11-28] MEDS ORDERED: FUROSEMIDE 40 MG/4 ML INJECTABLE VIAL IVPUSH ONE (22:45)
[2017-11-28 22:55] LABS: ARTERIAL BLD GAS O2 SATURATION 98.2 % (90-98.9); ARTERIAL BLOOD GAS BASE EXCESS -8.6 meq/l (-2-2); ARTERIAL BLOOD GAS PCO2 32.8 mmHg (35-45); ARTERIAL BLOOD GAS pH 7.32 (7.35-7.45)
[2017-11-28 22:58] LABS: ALLENS TEST POSITIVE
[2017-11-28 23:14] LABS: BASO % 2.4 % (0-2.0); EOS % 2.6 % (0-4.5); HEMATOCRIT 24.4 % (32.4-45.2); LYMPH % 18.8 % (8-40); MCH 26.4 pg (25.7-33.7); MCHC 32.7 g/dl (32.0-36.0); MEAN CELL VOLUME 80.9 fl (80-96); MEAN PLT VOLUME 6.5 fl (7.5-11.1); MONO % 7.8 % (3.8-10.2); NEUT % 68.4 % (42.8-82.8); PLATELET COUNT 422 K/MM3 (134-434); RBC 3.02 M/mm3 (3.60-5.2); RDW 20.1 % (11.6-15.6); WHITE BLOOD COUNT 6.3 K/mm3 (4.0-10.0)
[2017-11-28 23:42] LABS: ANION GAP 11 MMOL/L (8-16); BLOOD UREA NITROGEN 48 mg/dL (7-18); CALCIUM 8.8 mg/dL (8.5-10.1); CHLORIDE 108 mmol/L (98-107); CO2 19 mmol/L (21-32); CREATININE 2.3 mg/dL (0.55-1.3); GLUCOSE,RANDOM 99 mg/dL (74-106); POTASSIUM 3.5 mmol/L (3.5-5.1); SODIUM 138 mmol/L (136-145)
[2017-11-29] MEDS ORDERED: AMPICILLIN NA/SULBACTAM NA 1.5 GM VIAL ONE ×3 (00:45→17:12)
[2017-11-29] MEDS ORDERED: SODIUM CHLORIDE 100 ML IVPB ONE ×3 (00:45→17:12)
[2017-11-29] MEDS: AMPICILLIN NA/SULBACTAM NA 1.5 GM in SODIUM CHLORIDE 100 ML IVPB SCH ×3 (01:45→17:45)
[2017-11-29] MEDS: LEVOTHYROXINE NA 25 MCG TABLET (FP) PO SCH (06:16)
[2017-11-29] MEDS: HEPARIN NA (PORCINE) 5,000 UNITS/ML 1ML VIAL SQ SCH ×3 (06:16→23:49)
[2017-11-29 08:14] LABS: HEMOGLOBIN 8.3 GM/dL (10.7-15.3); MEAN CELL VOLUME 81.3 fl (80-96); MEAN PLT VOLUME 7.2 fl (7.5-11.1); PLATELET COUNT 347 K/MM3 (134-434); RDW 19.9 % (11.6-15.6); WHITE BLOOD COUNT 5.7 K/mm3 (4.0-10.0)
[2017-11-29 08:20] LABS: ANION GAP 10 MMOL/L (8-16); BLOOD UREA NITROGEN 47 mg/dL (7-18); CALCIUM 9.3 mg/dL (8.5-10.1); CHLORIDE 109 mmol/L (98-107); CO2 20 mmol/L (21-32); CREATININE 2.3 mg/dL (0.55-1.3); GLUCOSE,RANDOM 79 mg/dL (74-106); POTASSIUM 4.3 mmol/L (3.5-5.1); SODIUM 139 mmol/L (136-145)
[2017-11-29] MEDS ORDERED: PT OWN MED DRAWER 7, Y5N ONE ×2 (10:26→11:27)
--- NOTE | 2017-11-29 10:29 | PN ---
Progress Note, Physician Chief Complaint: last night patient got short of breath got lasix iv and plaed on NRB mask now she is sitting in bed no distress on 50% venti mask sat is 97% awaiting MRI of foot i tried calling daughter the phone number listed is out of service i called the friend octavio costello she will come tmw and help fill out the MRI questionairre - Current Medication List Current Medications: Active Medications Acetaminophen (Tylenol -) 650 mg PO Q6H PRN PRN Reason: Fever Amlodipine Besylate (Norvasc -) 10 mg PO DAILY [facility] Last Admin: 11/28/17 09:45 Dose: 10 mg Collagenase (Santyl -) 1 applic TP DAILY [facility]; Protocol Last Admin: 11/28/17 13:55 Dose: Not Given Escitalopram Oxalate (Lexapro -) 10 mg PO DAILY [facility] Last Admin: 11/28/17 09:45 Dose: 10 mg Heparin Sodium (Porcine) (Heparin -) 5,000 unit SQ TID [facility] Last Admin: 11/29/17 06:16 Dose: 5,000 unit Hydralazine HCl (Apresoline -) 10 mg PO BID [facility] Last Admin: 11/28/17 21:40 Dose: 10 mg Ampicillin Sodium/Sulbactam (Sodium 1.5 gm/ Sodium Chloride) 100 mls @ 200 mls/ hr IVPB Q8H-IV [facility] Last Admin: 11/29/17 01:45 Dose: 200 mls/hr Levothyroxine Sodium (Synthroid -) 125 mcg PO DAILY@0700 [facility] Last Admin: 11/29/17 06:16 Dose: 125 mcg Pantoprazole Sodium (Protonix -) 40 mg PO DAILY [facility] Last Admin: 11/28/17 09:46 Dose: 40 mg - Objective Vital Signs: Vital Signs Temperature 97.7 F 11/29/17 06:00 Pulse Rate 72 11/29/17 06:00 Respiratory Rate 22 H 11/29/17 06:00 Blood Pressure 151/67 11/29/17 06:00 O2 Sat by Pulse Oximetry (%) 100 11/28/17 22:53 Constitutional: Yes: Calm Neck: Yes: Trachea Midline Cardiovascular: Yes: Regular Rate and Rhythm, S1, S2 Respiratory: Yes: Other (crckles) Gastrointestinal: Yes: Normal Bowel Sounds, Soft Edema: No Neurological: Yes: Alert Labs: CBC, BMP 11/29/17 06:50 11/29/17 06:50 INR, PTT INR 0.92 (0.83-1.09) 11/26/17 06:45 Problem List - Problems (1) Toe infection Assessment/Plan: Microbiology 11/25/17 17:56 Foot - Left Gram Stain - Final 11/25/17 17:56 Foot - Left Wound Culture - Preliminary Proteus Mirabilis Staphylococcus Aureus Group D Strep Or Entero Coccus on iv unasyn to get MRI questionarre filled tmw by her friend podaity on board collagenase Code(s): L08.9 - LOCAL INFECTION OF THE SKIN AND SUBCUTANEOUS TISSUE, UNSP (2) Anemia Assessment/Plan: iron panel noted anemia of chronic disease GI eval occult blood positive PPI trend h/h Code(s): D64.9 - ANEMIA, UNSPECIFIED (3) Shortness of breath Assessment/Plan: cxr noted congestive changes stop ivf iv lasix given now on venti mask Code(s): R06.02 - SHORTNESS OF BREATH (4) Hypothyroid Assessment/Plan: on synthroid check tsh and t4 Code(s): E03.9 - HYPOTHYROIDISM, UNSPECIFIED
[2017-11-29] MEDS: PANTOPRAZOLE 40 MG TABLET (FP) PO SCH (10:41)
[2017-11-29] MEDS: ESCITALOPRAM OXALATE 10 MG TABLET (FP) PO SCH (10:41)
[2017-11-29] MEDS: hydrALAZINE HCL 10 MG TABLET PO SCH ×2 (10:42→23:49)
[2017-11-29] MEDS: amLODIPine BESYLATE 10 MG TABLET (FP) PO SCH (10:42)
[2017-11-29] MEDS: COLLAGENASE CLOSTRIDIUM HIST. 30 GRAMS TUBE TP SCH (10:42)
[2017-11-29] MEDS ORDERED: FUROSEMIDE 40 MG/4 ML INJECTABLE VIAL IVPUSH ONE (10:45)
--- NOTE | 2017-11-29 11:49 | CON.GI ---
Consult Consult Specialty:: GI Referred by:: Dr. Xiong Reason for Consultation:: Anemia - History of Present Illness Chief Complaint: Patient does not give a CC History of Present Illness: 77F admitted from wound care for evaluation of toe wound. She is from a halfway. Asked to evaluate anemia. She was anemic on admission. In review of the [employer] system she has had a microcytic anemia from at least and it does not appear to have evaluated during that period of time There was no overt bleeding but a stool specimen sent was positive for occult blood. She denies focal GI complaints. She has never had an EGD or colonoscopy. There is no family history of colorectal cancer. She was transfused 1 U PRBC. She is noted to have renal insufficiency. A ra[pis Response was called yesterday per her nurse and she is on a 40% ventimask. CXR revealed pulmonary edema changes and ? PNA. She is in iron supplement as an outpatient. - History Source History Provided By: Patient, Medical Record Limitations to Obtaining History: Poor Historian - Past Medical History [employer]: Yes: Dementia, Parkinson's Cardio/Vascular: Yes: HTN, Hyperlipdemia Renal/: Yes: Renal Inusuff Rheumatology: Yes: Other (arthritis) Endocrine: Yes: Hypothyroidism - Past Surgical History Past Surgical History: Yes: Appendectomy, Tonsillectomy - Alcohol/Substance Use Hx Alcohol Use: No - Smoking History Smoking history: Former smoker Have you smoked in the past 12 months: No Aproximately how many cigarettes per day: 5 If you are a former smoker, when did you quit?: 5 years ago - Social History Usual Living Arrangement: Snf ADL: Support Services History of Recent Travel: No Home Medications - Allergies Allergies/Adverse Reactions: Allergies Allergy/AdvReac Type Severity Reaction Status Date / Time No Known Allergies Allergy Verified 11/25/17 10:47 - Home Medications Home Medications: Ambulatory Orders Amlodipine Besylate [Norvasc -] 10 mg PO DAILY tablet 06/09/17 Docusate Sodium [Colace -] 100 mg PO TID capsule 06/09/17 Ferrous Sulfate [Feosol] 325 mg PO TIDCM ud 06/09/17 Levothyroxine [Synthroid -] 100 mcg PO DAILY@0700 tablet 06/09/17 Pantoprazole Sodium [Protonix -] 40 mg PO DAILY tablet.ec 06/09/17 hydrALAZINE HCL [Apresoline -] 10 mg PO BID #0 tablet 06/09/17 Family Disease History - Family Disease History Family Disease History: Other: Father ( 70's: pancreatic Ca), Mother (: 70's: [place]), Brother (None), Sister (None), Daughter (3 daughters, 2 , ? causes) Other Family History: No family history of colorectal cancer Review of Systems - Review of Systems Constitutional: denies: Loss of Appetite Cardiovascular: denies: Chest Pain Respiratory: reports: SOB Gastrointestinal: denies: Abdominal Pain, Constipation, Diarrhea, Dysphagia, Melena, Nausea, Rectal Bleeding, Vomiting Physical Exam-GI Vital Signs: Vital Signs Temperature 97.7 F 11/29/17 06:00 Pulse Rate 72 11/29/17 06:00 Respiratory Rate 22 H 11/29/17 06:00 Blood Pressure 151/67 11/29/17 06:00 O2 Sat by Pulse Oximetry (%) 100 11/28/17 22:53 Constitutional: Yes: Calm Eyes: No: Sclera Icterus Cardiovascular: Yes: Regular Rate and Rhythm. No: Murmur Respiratory: Yes: Rhonchi (fine bilaterally) Gastrointestinal Inspection: Yes: Scars (oblique RLQ scar) ...Auscultate: Yes: Normoactive Bowel Sounds ...Palpate: No: Hepatomegaly, Splenomegaly ...Percussion: No: Tympanitic ...Rectal Exam: Yes: Other (Double End Trimmer present: no external lesions, no masses, iron stained stool, guaiac negative) Edema: No (No LE edema) Neurological: Yes: Alert Labs: CBC, BMP 11/29/17 06:50 11/29/17 06:50 INR, PTT INR 0.92 (0.83-1.09) 11/26/17 06:45 Problem List - Problems (1) Anemia Assessment/Plan: Appears to have chronic anemia Discussed EGD/Colonoscopy with Priya Colon, in order to exclude intraluminal source of blood loss such as bleeding blood vessels, polyps or cancers of the GI tract such as colon cancer. We discussed potential riosks of the procedures l;caitlyn but not limited to bleeding, perforation requiring surgery to repair, infection, sedation medication effects all of which could be potentially life threatening. She stated that she would have to think about those options. I asked if she wanted me to speak to anyone in her family regarding this as well and she said no. Will sign off for now. Please recall when Ms. Colon has agreed to and is medically cleared for endoscopic evaluation. Code(s): D64.9 - ANEMIA, UNSPECIFIED
--- NOTE | 2017-11-29 12:59 | PN ---
Progress Note, Physician History of Present Illness: Pt seen and examined at bedside. She is awake and alert. She had difficulty breathing and required lasix. She is now awake and alert. - Current Medication List Current Medications: Active Medications Acetaminophen (Tylenol -) 650 mg PO Q6H PRN PRN Reason: Fever Amlodipine Besylate (Norvasc -) 10 mg PO DAILY [facility] Last Admin: 11/29/17 10:42 Dose: 10 mg Collagenase (Santyl -) 1 applic TP DAILY [facility]; Protocol Last Admin: 11/29/17 10:42 Dose: 1 applic Escitalopram Oxalate (Lexapro -) 10 mg PO DAILY [facility] Last Admin: 11/29/17 10:41 Dose: 10 mg Heparin Sodium (Porcine) (Heparin -) 5,000 unit SQ TID [facility] Last Admin: 11/29/17 06:16 Dose: 5,000 unit Hydralazine HCl (Apresoline -) 10 mg PO BID [facility] Last Admin: 11/29/17 10:42 Dose: 10 mg Ampicillin Sodium/Sulbactam (Sodium 1.5 gm/ Sodium Chloride) 100 mls @ 200 mls/ hr IVPB Q8H-IV [facility] Last Admin: 11/29/17 10:42 Dose: 200 mls/hr Levothyroxine Sodium (Synthroid -) 125 mcg PO DAILY@0700 [facility] Last Admin: 11/29/17 06:16 Dose: 125 mcg Pantoprazole Sodium (Protonix Iv) 40 mg IVPUSH DAILY [facility] - Objective Vital Signs: Vital Signs Temperature 97.7 F 11/29/17 06:00 Pulse Rate 72 11/29/17 06:00 Respiratory Rate 22 H 11/29/17 06:00 Blood Pressure 151/67 11/29/17 06:00 O2 Sat by Pulse Oximetry (%) 100 11/28/17 22:53 Constitutional: Yes: Calm Eyes: Yes: Conjunctiva Clear HENT: Yes: Atraumatic Cardiovascular: Yes: S1, S2 Respiratory: Yes: CTA Bilaterally, On Nasal O2 Gastrointestinal: Yes: Soft Genitourinary: Yes: Incontinence Musculoskeletal: Yes: WNL Edema: No Neurological: Yes: Oriented Psychiatric: Yes: Oriented Labs: CBC, BMP 11/29/17 06:50 11/29/17 06:50 INR, PTT INR 0.92 (0.83-1.09) 11/26/17 06:45 Problem List - Problems (1) Renal failure (ARF), acute on chronic Code(s): N17.9 - ACUTE KIDNEY FAILURE, UNSPECIFIED; N18.9 - CHRONIC KIDNEY DISEASE, UNSPECIFIED Assessment/Plan Current Medications Generic Name Dose Route Start Last Admin Trade Name Freq PRN Reason Stop Dose Admin Acetaminophen 650 mg 11/25/17 18:16 Tylenol - PO Q6H PRN Fever Amlodipine Besylate 10 mg 11/26/17 10:00 11/29/17 10:42 Norvasc - PO 10 mg DAILY [facility] Administration Collagenase 1 applic 11/27/17 11:15 11/29/17 10:42 Santyl - TP 1 applic DAILY [facility] Administration Protocol Escitalopram Oxalate 10 mg 11/26/17 10:00 11/29/17 10:41 Lexapro - PO 10 mg DAILY [facility] Administration Heparin Sodium (Porcine) 5,000 unit 11/25/17 22:00 11/29/17 06:16 Heparin - SQ 5,000 unit TID [facility] Administration Hydralazine HCl 10 mg 11/25/17 22:00 11/29/17 10:42 Apresoline - PO 10 mg BID [facility] Administration Ampicillin Sodium/Sulbactam 100 mls @ 200 mls/hr 11/26/17 11:15 11/29/17 10: 42 Sodium 1.5 gm/ Sodium Chloride IVPB 200 mls/hr Q8H-IV [facility] Administration Levothyroxine Sodium 125 mcg 11/26/17 07:00 11/29/17 06:16 Synthroid - PO 125 mcg DAILY@0700 [facility] Administration Pantoprazole Sodium 40 mg 11/30/17 10:00 Protonix Iv IVPUSH DAILY [facility] Impression 1. LUCERO 2. CKD 3. toe ulcer 4. hypothryoid 5. dementia 6. parkinsons 7. HTN 8. hyponatremia 9. right renal cyst Plan - d/c fluids - monitor pulse ox - cont oxygen - repeat labs in am - pt unable to give urine sample - sodium stable - encourage PO intake Dr John
--- NOTE | 2017-11-29 13:12 | PN ---
Progress Note (short form) - Note Progress Note: Fuv left foot. +demarcating 4th toe left, +improved cellulitis, +edema, +improved duskiness, om 4th toe? wound 4th toe left Discussed with Dr. Goldman. Amparo dressing change 4th toe left. Awaiting MRI and vascular to schedule procedure if necessary. Patient cannot fill out her questionnare. Apparently will out tomorrow. Dressing change done. Problem List - Problems (1) Toe infection Code(s): L08.9 - LOCAL INFECTION OF THE SKIN AND SUBCUTANEOUS TISSUE, UNSP
--- NOTE | 2017-11-29 16:16 | PN ---
Progress Note (short form) - Note Progress Note: [facility] Pt seen and examined. Dressing changed. Left 4th toe with ulcer most likely involving bone. Awaiting MRI to rule out osteo. 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
[2017-11-30] MEDS ORDERED: SODIUM CHLORIDE 100 ML IVPB ONE ×3 (02:06→17:58)
[2017-11-30] MEDS ORDERED: AMPICILLIN NA/SULBACTAM NA 1.5 GM VIAL ONE ×4 (02:06→17:58)
[2017-11-30] MEDS: AMPICILLIN NA/SULBACTAM NA 1.5 GM in SODIUM CHLORIDE 100 ML IVPB SCH ×3 (02:15→18:42)
[2017-11-30] MEDS: LEVOTHYROXINE NA 25 MCG TABLET (FP) PO SCH (06:11)
[2017-11-30] MEDS: HEPARIN NA (PORCINE) 5,000 UNITS/ML 1ML VIAL SQ SCH ×3 (06:11→23:02)
[2017-11-30 07:57] LABS: BASO % 3.2 % (0-2.0); EOS % 2.5 % (0-4.5); HEMATOCRIT 24.3 % (32.4-45.2); HEMOGLOBIN 7.7 GM/dL (10.7-15.3); LYMPH % 11.3 % (8-40); MCH 25.9 pg (25.7-33.7); MCHC 31.6 g/dl (32.0-36.0); MEAN CELL VOLUME 81.9 fl (80-96); MEAN PLT VOLUME 6.9 fl (7.5-11.1); PLATELET COUNT 308 K/MM3 (134-434); RBC 2.97 M/mm3 (3.60-5.2); RDW 19.2 % (11.6-15.6)
[2017-11-30 08:49] LABS: ALBUMIN 2.7 g/dl (3.4-5.0); ALK PHOS 86 U/L (45-117); ANION GAP 13 MMOL/L (8-16); BILIRUBIN,TOTAL 0.4 mg/dL (0.2-1); BLOOD UREA NITROGEN 47 mg/dL (7-18); CHLORIDE 107 mmol/L (98-107); CO2 19 mmol/L (21-32); CREATININE 2.4 mg/dL (0.55-1.3); GLUCOSE,RANDOM 71 mg/dL (74-106); POTASSIUM 3.7 mmol/L (3.5-5.1); SGOT/AST 13 U/L (15-37); SGPT/ALT 11 U/L (13-61); SODIUM 139 mmol/L (136-145); TOT PROT 7.1 g/dl (6.4-8.2)
[2017-11-30] MEDS ORDERED: PT OWN MED DRAWER 7, Y5N ONE (10:34)
[2017-11-30] MEDS: ESCITALOPRAM OXALATE 10 MG TABLET (FP) PO SCH (10:44)
[2017-11-30] MEDS: hydrALAZINE HCL 10 MG TABLET PO SCH ×2 (10:44→23:02)
[2017-11-30] MEDS: amLODIPine BESYLATE 10 MG TABLET (FP) PO SCH (10:44)
[2017-11-30] MEDS: COLLAGENASE CLOSTRIDIUM HIST. 30 GRAMS TUBE TP SCH (10:45)
[2017-11-30] MEDS: PANTOPRAZOLE SODIUM 40 MG VIAL IVPUSH SCH (10:45)
--- NOTE | 2017-11-30 11:21 | PN ---
Progress Note, Physician - Current Medication List Current Medications: Active Medications Acetaminophen (Tylenol -) 650 mg PO Q6H PRN PRN Reason: Fever Amlodipine Besylate (Norvasc -) 10 mg PO DAILY REPLACED BY [facility] Last Admin: 11/30/17 10:44 Dose: 10 mg Collagenase (Santyl -) 1 applic TP DAILY REPLACED BY [facility]; Protocol Last Admin: 11/30/17 10:45 Dose: 1 applic Escitalopram Oxalate (Lexapro -) 10 mg PO DAILY REPLACED BY [facility] Last Admin: 11/30/17 10:44 Dose: 10 mg Heparin Sodium (Porcine) (Heparin -) 5,000 unit SQ TID REPLACED BY [facility] Last Admin: 11/30/17 06:11 Dose: 5,000 unit Hydralazine HCl (Apresoline -) 10 mg PO BID REPLACED BY [facility] Last Admin: 11/30/17 10:44 Dose: 10 mg Ampicillin Sodium/Sulbactam (Sodium 1.5 gm/ Sodium Chloride) 100 mls @ 200 mls/ hr IVPB Q8H-IV REPLACED BY [facility] Last Admin: 11/30/17 10:44 Dose: 200 mls/hr Levothyroxine Sodium (Synthroid -) 125 mcg PO DAILY@0700 REPLACED BY [facility] Last Admin: 11/30/17 06:11 Dose: 125 mcg Pantoprazole Sodium (Protonix Iv) 40 mg IVPUSH DAILY REPLACED BY [facility] Last Admin: 11/30/17 10:45 Dose: 40 mg - Objective Vital Signs: Vital Signs Temperature 98.6 F 11/30/17 10:42 Pulse Rate 60 11/30/17 10:42 Respiratory Rate 19 11/30/17 10:42 Blood Pressure 158/85 11/30/17 10:42 O2 Sat by Pulse Oximetry (%) 97 11/29/17 21:00 Constitutional: Yes: Calm Cardiovascular: Yes: Regular Rate and Rhythm, S1, S2 Respiratory: Yes: CTA Bilaterally Gastrointestinal: Yes: Normal Bowel Sounds, Soft Extremities: Yes: Other (left fourth toe edema with yelowish discharge dressing opened) Edema: No Labs: CBC, BMP 11/30/17 06:30 11/30/17 06:30 INR, PTT INR 0.92 (0.83-1.09) 11/26/17 06:45 Problem List - Problems (1) Toe infection Assessment/Plan: Microbiology 11/25/17 17:56 Foot - Left Gram Stain - Final 11/25/17 17:56 Foot - Left Wound Culture - Preliminary Proteus Mirabilis Staphylococcus Aureus Group D Strep Or Entero Coccus on iv unasyn to get MRI questionarre filled by her friend today to r/o osteo podiatry on board collagenase Code(s): L08.9 - LOCAL INFECTION OF THE SKIN AND SUBCUTANEOUS TISSUE, UNSP (2) Anemia Assessment/Plan: iron panel noted anemia of chronic disease GI eval noted patient will think about egd occult blood positive PPI trend h/h Code(s): D64.9 - ANEMIA, UNSPECIFIED (3) Shortness of breath Assessment/Plan: cxr noted congestive changes-improved after two dose of lasix stop ivf iv lasix given yesterday now off venti mask sat 97 on RA Code(s): R06.02 - SHORTNESS OF BREATH (4) Hypothyroid Assessment/Plan: on synthroid tsh normal Code(s): E03.9 - HYPOTHYROIDISM, UNSPECIFIED
--- NOTE | 2017-11-30 11:48 | EKG ---
Test Reason : Blood Pressure : / mmHG Vent. Rate : 073 BPM Atrial Rate : 073 BPM P-R Int : 178 ms QRS Dur : 118 ms QT Int : 384 ms P-R-T Axes : 050 028 226 degrees QTc Int : 423 ms NORMAL SINUS RHYTHM INCOMPLETE LEFT BUNDLE BRANCH BLOCK ABNORMAL ECG WHEN COMPARED WITH ECG OF 25-NOV-2017 13:57, QT HAS SHORTENED Confirmed by Schuyler Campbell MD ([id number]) on 11/30/2017 11:47:41 AM Referred By: Confirmed By:Schuyler Campbell MD
--- NOTE | 2017-11-30 12:10 | PN ---
Progress Note (short form) - Note Progress Note: Fuv left foot. +demarcating 4th toe left, +improved cellulitis, +edema, +improved duskiness, om 4th toe? wound 4th toe left Santyl dressing change 4th toe left. Awaiting MRI and vascular to schedule procedure if necessary. Apparently will out tomorrow. Problem List - Problems (1) Toe infection Code(s): L08.9 - LOCAL INFECTION OF THE SKIN AND SUBCUTANEOUS TISSUE, UNSP
--- NOTE | 2017-11-30 16:16 | PN ---
Progress Note, Physician History of Present Illness: Pt seen and examined at bedside. She is awake and alert. She denies shortness of breath. - Current Medication List Current Medications: Active Medications Acetaminophen (Tylenol -) 650 mg PO Q6H PRN PRN Reason: Fever Amlodipine Besylate (Norvasc -) 10 mg PO DAILY [facility] Last Admin: 11/30/17 10:44 Dose: 10 mg Collagenase (Santyl -) 1 applic TP DAILY [facility]; Protocol Last Admin: 11/30/17 10:45 Dose: 1 applic Escitalopram Oxalate (Lexapro -) 10 mg PO DAILY [facility] Last Admin: 11/30/17 10:44 Dose: 10 mg Heparin Sodium (Porcine) (Heparin -) 5,000 unit SQ TID [facility] Last Admin: 11/30/17 14:55 Dose: 5,000 unit Hydralazine HCl (Apresoline -) 10 mg PO BID [facility] Last Admin: 11/30/17 10:44 Dose: 10 mg Ampicillin Sodium/Sulbactam (Sodium 1.5 gm/ Sodium Chloride) 100 mls @ 200 mls/ hr IVPB Q8H-IV [facility] Last Admin: 11/30/17 10:44 Dose: 200 mls/hr Levothyroxine Sodium (Synthroid -) 125 mcg PO DAILY@0700 [facility] Last Admin: 11/30/17 06:11 Dose: 125 mcg Pantoprazole Sodium (Protonix Iv) 40 mg IVPUSH DAILY [facility] Last Admin: 11/30/17 10:45 Dose: 40 mg - Objective Vital Signs: Vital Signs Temperature 98.0 F 11/30/17 14:25 Pulse Rate 67 11/30/17 14:25 Respiratory Rate 22 H 11/30/17 14:25 Blood Pressure 150/58 L 11/30/17 14:25 O2 Sat by Pulse Oximetry (%) 97 11/29/17 21:00 Constitutional: Yes: Calm Eyes: Yes: Conjunctiva Clear HENT: Yes: Atraumatic Neck: Yes: Supple Cardiovascular: Yes: S1, S2 Respiratory: Yes: CTA Bilaterally Gastrointestinal: Yes: Normal Bowel Sounds, Soft Genitourinary: Yes: WNL Musculoskeletal: Yes: Muscle Weakness Edema: No Wound/Incision: Yes: Dressing Dry and Intact Neurological: Yes: Confusion Labs: CBC, BMP 11/30/17 06:30 11/30/17 06:30 INR, PTT INR 0.92 (0.83-1.09) 11/26/17 06:45 Problem List - Problems (1) Renal failure (ARF), acute on chronic Code(s): N17.9 - ACUTE KIDNEY FAILURE, UNSPECIFIED; N18.9 - CHRONIC KIDNEY DISEASE, UNSPECIFIED Assessment/Plan Current Medications Generic Name Dose Route Start Last Admin Trade Name Armani PRN Reason Stop Dose Admin Acetaminophen 650 mg 11/25/17 18:16 Tylenol - PO Q6H PRN Fever Amlodipine Besylate 10 mg 11/26/17 10:00 11/30/17 10:44 Norvasc - PO 10 mg DAILY LINNEA Administration Collagenase 1 applic 11/27/17 11:15 11/30/17 10:45 Santyl - TP 1 applic DAILY [facility]NEA Administration Protocol Escitalopram Oxalate 10 mg 11/26/17 10:00 11/30/17 10:44 Lexapro - PO 10 mg DAILY [facility]NEA Administration Heparin Sodium (Porcine) 5,000 unit 11/25/17 22:00 11/30/17 14:55 Heparin - SQ 5,000 unit TID LINNEA Administration Hydralazine HCl 10 mg 11/25/17 22:00 11/30/17 10:44 Apresoline - PO 10 mg BID LINNEA Administration Ampicillin Sodium/Sulbactam 100 mls @ 200 mls/hr 11/26/17 11:15 11/30/17 10: 44 Sodium 1.5 gm/ Sodium Chloride IVPB 200 mls/hr Q8H-IV [facility]NEA Administration Levothyroxine Sodium 125 mcg 11/26/17 07:00 11/30/17 06:11 Synthroid - PO 125 mcg DAILY@0700 LINNEA Administration Pantoprazole Sodium 40 mg 11/30/17 10:00 11/30/17 10:45 Protonix Iv IVPUSH 40 mg DAILY LINNEA Administration Impression 1. LUCERO 2. CKD 3. toe ulcer 4. hypothryoid 5. dementia 6. parkinsons 7. HTN 8. hyponatremia 9. 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
[2017-12-01] MEDS: AMPICILLIN NA/SULBACTAM NA 1.5 GM in SODIUM CHLORIDE 100 ML IVPB SCH ×3 (02:30→17:27)
[2017-12-01] MEDS ORDERED: AMPICILLIN NA/SULBACTAM NA 1.5 GM VIAL ONE ×3 (02:45→17:20)
[2017-12-01] MEDS ORDERED: SODIUM CHLORIDE 100 ML IVPB ONE ×3 (02:46→17:20)
[2017-12-01] MEDS: LEVOTHYROXINE NA 25 MCG TABLET (FP) PO SCH (06:45)
[2017-12-01] MEDS: HEPARIN NA (PORCINE) 5,000 UNITS/ML 1ML VIAL SQ SCH ×3 (06:46→22:08)
[2017-12-01 08:09] LABS: BASO % 3.1 % (0-2.0); EOS % 3.8 % (0-4.5); HEMATOCRIT 26.2 % (32.4-45.2); HEMOGLOBIN 8.4 GM/dL (10.7-15.3); LYMPH % 15.1 % (8-40); MEAN CELL VOLUME 81.1 fl (80-96); MEAN PLT VOLUME 7.1 fl (7.5-11.1); MONO % 6.7 % (3.8-10.2); NEUT % 71.3 % (42.8-82.8); PLATELET COUNT 277 K/MM3 (134-434); RBC 3.23 M/mm3 (3.60-5.2); RDW 19.2 % (11.6-15.6); WHITE BLOOD COUNT 5.2 K/mm3 (4.0-10.0)
--- NOTE | 2017-12-01 08:17 | PN ---
Progress Note, Physician - Current Medication List Current Medications: Active Medications Acetaminophen (Tylenol -) 650 mg PO Q6H PRN PRN Reason: Fever Amlodipine Besylate (Norvasc -) 10 mg PO DAILY [facility] Last Admin: 11/30/17 10:44 Dose: 10 mg Collagenase (Santyl -) 1 applic TP DAILY [facility]; Protocol Last Admin: 11/30/17 10:45 Dose: 1 applic Escitalopram Oxalate (Lexapro -) 10 mg PO DAILY [facility] Last Admin: 11/30/17 10:44 Dose: 10 mg Heparin Sodium (Porcine) (Heparin -) 5,000 unit SQ TID [facility] Last Admin: 12/01/17 06:46 Dose: 5,000 unit Hydralazine HCl (Apresoline -) 10 mg PO BID [facility] Last Admin: 11/30/17 23:02 Dose: 10 mg Ampicillin Sodium/Sulbactam (Sodium 1.5 gm/ Sodium Chloride) 100 mls @ 200 mls/ hr IVPB Q8H-IV [facility] Last Admin: 12/01/17 02:30 Dose: 200 mls/hr Levothyroxine Sodium (Synthroid -) 125 mcg PO DAILY@0700 [facility] Last Admin: 12/01/17 06:45 Dose: 125 mcg Pantoprazole Sodium (Protonix Iv) 40 mg IVPUSH DAILY [facility] Last Admin: 11/30/17 10:45 Dose: 40 mg - Objective Vital Signs: Vital Signs Temperature 97.6 F 12/01/17 06:00 Pulse Rate 63 12/01/17 06:00 Respiratory Rate 20 12/01/17 06:00 Blood Pressure 148/79 12/01/17 06:00 O2 Sat by Pulse Oximetry (%) 95 11/30/17 21:00 Cardiovascular: Yes: S1, S2 Respiratory: Yes: Regular, CTA Bilaterally Gastrointestinal: Yes: Normal Bowel Sounds, Soft Wound/Incision: Yes: Dressing Removed, Excoriated, Unapproximated. No: Draining Labs: CBC, BMP 12/01/17 07:30 INR, PTT INR 0.92 (0.83-1.09) 11/26/17 06:45 Problem List - Problems (1) Anemia Code(s): D64.9 - ANEMIA, UNSPECIFIED (2) Bacteremia Code(s): R78.81 - BACTEREMIA (3) Renal failure (ARF), acute on chronic Code(s): N17.9 - ACUTE KIDNEY FAILURE, UNSPECIFIED; N18.9 - CHRONIC KIDNEY DISEASE, UNSPECIFIED (4) Skin ulcer of fourth toe of left foot Code(s): L97.529 - NON-PRESSURE CHRONIC ULCER OTH PRT LEFT FOOT W UNSP SEVERITY (5) HTN (hypertension) Code(s): I10 - ESSENTIAL (PRIMARY) HYPERTENSION Assessment/Plan - Problems (1) Toe infection Assessment/Plan: Microbiology 11/25/17 17:56 Foot - Left Gram Stain - Final 11/25/17 17:56 Foot - Left Wound Culture - Preliminary Proteus Mirabilis Staphylococcus Aureus Group D Strep Or Entero Coccus on iv unasyn to get MRI questionarre filled by her friend today to r/o osteo podiatry on board collagenase Code(s): L08.9 - LOCAL INFECTION OF THE SKIN AND SUBCUTANEOUS TISSUE, UNSP (2) Anemia Assessment/Plan: iron panel noted anemia of chronic disease GI eval noted patient will think about egd occult blood positive PPI trend h/h Code(s): D64.9 - ANEMIA, UNSPECIFIED (3) Shortness of breath Assessment/Plan: cxr noted congestive changes-improved after two dose of lasix stop ivf iv lasix given yesterday now off venti mask sat 97 on RA Code(s): R06.02 - SHORTNESS OF BREATH (4) Hypothyroid Assessment/Plan: on synthroid tsh normal Code(s): E03.9 - HYPOTHYROIDISM, UNSPECIFIED
[2017-12-01 08:50] LABS: ALBUMIN 2.8 g/dl (3.4-5.0); ALK PHOS 87 U/L (45-117); ANION GAP 11 MMOL/L (8-16); BILIRUBIN,TOTAL 0.4 mg/dL (0.2-1); BLOOD UREA NITROGEN 45 mg/dL (7-18); CALCIUM 9.4 mg/dL (8.5-10.1); CHLORIDE 105 mmol/L (98-107); CO2 21 mmol/L (21-32); CREATININE 2.3 mg/dL (0.55-1.3); GLUCOSE,RANDOM 71 mg/dL (74-106); POTASSIUM 3.7 mmol/L (3.5-5.1); SGOT/AST 13 U/L (15-37); SGPT/ALT 11 U/L (13-61); SODIUM 137 mmol/L (136-145); TOT PROT 6.9 g/dl (6.4-8.2)
[2017-12-01] MEDS: PANTOPRAZOLE SODIUM 40 MG VIAL IVPUSH SCH (09:28)
[2017-12-01] MEDS: amLODIPine BESYLATE 10 MG TABLET (FP) PO SCH (09:28)
[2017-12-01] MEDS: hydrALAZINE HCL 10 MG TABLET PO SCH ×2 (09:28→22:08)
[2017-12-01] MEDS: ESCITALOPRAM OXALATE 10 MG TABLET (FP) PO SCH (09:28)
[2017-12-01] MEDS: COLLAGENASE CLOSTRIDIUM HIST. 30 GRAMS TUBE TP SCH (09:30)
--- NOTE | 2017-12-01 12:51 | PN ---
Progress Note, Physician History of Present Illness: Pt seen and examined at bedside. She is awake and appears comfortable. She denies shortness of breath. She says she is tolerating diet. - Current Medication List Current Medications: Active Medications Acetaminophen (Tylenol -) 650 mg PO Q6H PRN PRN Reason: Fever Amlodipine Besylate (Norvasc -) 10 mg PO DAILY [facility] Last Admin: 12/01/17 09:28 Dose: 10 mg Collagenase (Santyl -) 1 applic TP DAILY [facility]; Protocol Last Admin: 12/01/17 09:30 Dose: 1 applic Escitalopram Oxalate (Lexapro -) 10 mg PO DAILY [facility] Last Admin: 12/01/17 09:28 Dose: 10 mg Heparin Sodium (Porcine) (Heparin -) 5,000 unit SQ TID [facility] Last Admin: 12/01/17 06:46 Dose: 5,000 unit Hydralazine HCl (Apresoline -) 10 mg PO BID [facility] Last Admin: 12/01/17 09:28 Dose: 10 mg Ampicillin Sodium/Sulbactam (Sodium 1.5 gm/ Sodium Chloride) 100 mls @ 200 mls/ hr IVPB Q8H-IV [facility] Last Admin: 12/01/17 09:28 Dose: 200 mls/hr Levothyroxine Sodium (Synthroid -) 125 mcg PO DAILY@0700 [facility] Last Admin: 12/01/17 06:45 Dose: 125 mcg Pantoprazole Sodium (Protonix Iv) 40 mg IVPUSH DAILY [facility] Last Admin: 12/01/17 09:28 Dose: 40 mg - Objective Vital Signs: Vital Signs Temperature 97.8 F 12/01/17 09:32 Pulse Rate 60 12/01/17 09:32 Respiratory Rate 19 12/01/17 09:32 Blood Pressure 151/58 L 12/01/17 09:32 O2 Sat by Pulse Oximetry (%) 95 12/01/17 09:00 Constitutional: Yes: Calm Eyes: Yes: Conjunctiva Clear Cardiovascular: Yes: S1, S2 Respiratory: Yes: CTA Bilaterally Gastrointestinal: Yes: Soft Genitourinary: Yes: Incontinence Edema: No Wound/Incision: Yes: Dressing Dry and Intact Neurological: Yes: Confusion Labs: CBC, BMP 12/01/17 07:30 12/01/17 07:30 INR, PTT INR 0.92 (0.83-1.09) 11/26/17 06:45 Problem List - Problems (1) Renal failure (ARF), acute on chronic Code(s): N17.9 - ACUTE KIDNEY FAILURE, UNSPECIFIED; N18.9 - CHRONIC KIDNEY DISEASE, UNSPECIFIED Assessment/Plan Current Medications Generic Name Dose Route Start Last Admin Trade Name Freq PRN Reason Stop Dose Admin Acetaminophen 650 mg 11/25/17 18:16 Tylenol - PO Q6H PRN Fever Amlodipine Besylate 10 mg 11/26/17 10:00 12/01/17 09:28 Norvasc - PO 10 mg DAILY [facility] Administration Collagenase 1 applic 11/27/17 11:15 12/01/17 09:30 Santyl - TP 1 applic DAILY [facility] Administration Protocol Escitalopram Oxalate 10 mg 11/26/17 10:00 12/01/17 09:28 Lexapro - PO 10 mg DAILY [facility] Administration Heparin Sodium (Porcine) 5,000 unit 11/25/17 22:00 12/01/17 06:46 Heparin - SQ 5,000 unit TID [facility] Administration Hydralazine HCl 10 mg 11/25/17 22:00 12/01/17 09:28 Apresoline - PO 10 mg BID [facility] Administration Ampicillin Sodium/Sulbactam 100 mls @ 200 mls/hr 11/26/17 11:15 12/01/17 09: 28 Sodium 1.5 gm/ Sodium Chloride IVPB 200 mls/hr Q8H-IV [facility] Administration Levothyroxine Sodium 125 mcg 11/26/17 07:00 12/01/17 06:45 Synthroid - PO 125 mcg DAILY@0700 [facility] Administration Pantoprazole Sodium 40 mg 11/30/17 10:00 12/01/17 09:28 Protonix Iv IVPUSH 40 mg DAILY [facility] Administration Impression 1. LUCERO 2. CKD 3. toe ulcer 4. hypothryoid 5. dementia 6. parkinsons 7. HTN 8. hyponatremia 9. 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
--- NOTE | 2017-12-01 16:57 | PN ---
Progress Note (short form) - Note Progress Note: no MRI- could not fill out questionnare Vital Signs Period Temp Pulse Resp BP Sys/Rolon Pulse Ox Last 24 Hr 97.6 F-98.3 F 57-66 19-20 144-151/58-88 95-95 cor-rrr lungs clear abd soft,nt ext less erythema of the toe- has a hole in it CBC, BMP 12/01/17 07:30 12/01/17 07:30 Microbiology 11/27/17 06:30 Blood - Peripheral Venous Blood Culture - Preliminary NO GROWTH OBTAINED AFTER 96 HOURS, INCUBATION TO CONTINUE FOR 1 DAYS. 11/25/17 17:56 Foot - Left Gram Stain - Final 11/25/17 17:56 Foot - Left Wound Culture - Final Proteus Mirabilis Staphylococcus Aureus Enterococcus Faecalis 11/27/17 06:10 Blood - Peripheral Venous Blood Culture - Preliminary Pending Organism 11/25/17 12:23 Blood - Peripheral Venous Blood Culture - Final NO GROWTH AFTER 5 DAYS INCUBATION 11/25/17 12:15 Blood - Peripheral Venous Blood Culture - Final Staphylococcus Haemolyticus a/p toe infection r/o osteo, continue unasyn blood culture isolate contaminant no need for further vancomycin f/u podiatry continue unasyn, will d/w PMD and podiatry Problem List - Problems (1) Bacteremia Code(s): R78.81 - BACTEREMIA (2) Toe infection Code(s): L08.9 - LOCAL INFECTION OF THE SKIN AND SUBCUTANEOUS TISSUE, UNSP (3) Renal failure (ARF), acute on chronic Code(s): N17.9 - ACUTE KIDNEY FAILURE, UNSPECIFIED; N18.9 - CHRONIC KIDNEY DISEASE, UNSPECIFIED (4) Anemia Code(s): D64.9 - ANEMIA, UNSPECIFIED
--- NOTE | 2017-12-01 20:36 | PN ---
Progress Note (short form) - Note Progress Note: Fuv left foot. Seen around 1:30pm today. +demarcating 4th toe left, +improved cellulitis, +edema, +improved duskiness, om 4th toe? wound 4th toe left Santyl dressing change 4th toe left. Awaiting MRI still. will follow. Problem List - Problems (1) Toe infection Code(s): L08.9 - LOCAL INFECTION OF THE SKIN AND SUBCUTANEOUS TISSUE, UNSP
[2017-12-02] MEDS ORDERED: AMPICILLIN NA/SULBACTAM NA 1.5 GM VIAL ONE ×2 (05:23→16:36)
[2017-12-02] MEDS ORDERED: SODIUM CHLORIDE 100 ML IVPB ONE ×2 (05:23→16:36)
[2017-12-02] MEDS: AMPICILLIN NA/SULBACTAM NA 1.5 GM in SODIUM CHLORIDE 100 ML IVPB SCH ×2 (05:33→18:10)
[2017-12-02] MEDS: HEPARIN NA (PORCINE) 5,000 UNITS/ML 1ML VIAL SQ SCH ×3 (05:34→22:06)
[2017-12-02] MEDS: LEVOTHYROXINE NA 125 MCG TABLET (FP) PO SCH (06:28)
[2017-12-02] MEDS ORDERED: PT OWN MED DRAWER 7, Y5N ONE (10:18)
[2017-12-02] MEDS: amLODIPine BESYLATE 10 MG TABLET (FP) PO SCH (10:30)
[2017-12-02] MEDS: PANTOPRAZOLE SODIUM 40 MG VIAL IVPUSH SCH (10:31)
[2017-12-02] MEDS: ESCITALOPRAM OXALATE 10 MG TABLET (FP) PO SCH (10:31)
[2017-12-02] MEDS: hydrALAZINE HCL 10 MG TABLET PO SCH ×2 (10:31→22:06)
--- NOTE | 2017-12-02 12:02 | PN ---
Progress Note, Physician Chief Complaint: patient in bed awake alert responds to her name foot dressing opened - Current Medication List Current Medications: Active Medications Acetaminophen (Tylenol -) 650 mg PO Q6H PRN PRN Reason: Fever Amlodipine Besylate (Norvasc -) 10 mg PO DAILY [facility] Last Admin: 12/02/17 10:30 Dose: 10 mg Collagenase (Santyl -) 1 applic TP DAILY [facility]; Protocol Last Admin: 12/01/17 09:30 Dose: 1 applic Escitalopram Oxalate (Lexapro -) 10 mg PO DAILY [facility] Last Admin: 12/02/17 10:31 Dose: 10 mg Heparin Sodium (Porcine) (Heparin -) 5,000 unit SQ TID [facility] Last Admin: 12/02/17 05:34 Dose: 5,000 unit Hydralazine HCl (Apresoline -) 10 mg PO BID [facility] Last Admin: 12/02/17 10:31 Dose: 10 mg Ampicillin Sodium/Sulbactam (Sodium 1.5 gm/ Sodium Chloride) 100 mls @ 200 mls/ hr IVPB Q12H [facility] Last Admin: 12/02/17 05:33 Dose: 200 mls/hr Levothyroxine Sodium (Synthroid -) 125 mcg PO DAILY@0700 [facility] Last Admin: 12/02/17 06:28 Dose: 125 mcg Pantoprazole Sodium (Protonix Iv) 40 mg IVPUSH DAILY [facility] Last Admin: 12/02/17 10:31 Dose: 40 mg - Objective Vital Signs: Vital Signs Temperature 97.4 F L 12/02/17 10:00 Pulse Rate 64 12/02/17 10:00 Respiratory Rate 20 12/02/17 10:00 Blood Pressure 148/76 12/02/17 10:00 O2 Sat by Pulse Oximetry (%) 95 12/01/17 21:00 Constitutional: Yes: Calm Cardiovascular: Yes: Regular Rate and Rhythm, S1, S2 Respiratory: Yes: CTA Bilaterally, Diminished (at bases) Gastrointestinal: Yes: Normal Bowel Sounds, Soft Extremities: Yes: Other (left foot dressing opened fourth toe macerated with yellowish discharge swollen) Edema: No Neurological: Yes: Alert, Oriented Labs: CBC, BMP 12/01/17 07:30 12/01/17 07:30 INR, PTT INR 0.92 (0.83-1.09) 11/26/17 06:45 Problem List - Problems (1) Toe infection Assessment/Plan: Microbiology 11/25/17 17:56 Foot - Left Gram Stain - Final 11/25/17 17:56 Foot - Left Wound Culture - Preliminary Proteus Mirabilis Staphylococcus Aureus Group D Strep Or Entero Coccus on iv unasyn called her friend osiris and left her message daughter number on file not in service podiatry on board collagenase Code(s): L08.9 - LOCAL INFECTION OF THE SKIN AND SUBCUTANEOUS TISSUE, UNSP (2) Anemia Assessment/Plan: iron panel noted anemia of chronic disease GI eval noted patient will think about egd trend h/h- improved Code(s): D64.9 - ANEMIA, UNSPECIFIED (3) Shortness of breath Assessment/Plan: cxr noted congestive changes-improved after two dose of lasix stop ivf iv lasix given yesterday now off venti mask sat 97 on RA Code(s): R06.02 - SHORTNESS OF BREATH (4) Hypothyroid Assessment/Plan: on synthroid tsh normal Code(s): E03.9 - HYPOTHYROIDISM, UNSPECIFIED
--- NOTE | 2017-12-02 15:02 | PN ---
Progress Note (short form) - Note Progress Note: no MRI- could not fill out questionnare no family available Vital Signs Period Temp Pulse Resp BP Sys/Rolon Pulse Ox Last 24 Hr 97.4 F-98.3 F 64-68 20-20 125-149/70-88 94-95 cor-rrr lungs clear abd soft,nt ext unchanged, less erythema of the fourth toe, ?hole CBC, BMP 12/01/17 07:30 12/01/17 07:30 Microbiology 11/27/17 06:10 Blood - Peripheral Venous Blood Culture - Preliminary Gram Positive Bacillus 11/27/17 06:30 Blood - Peripheral Venous Blood Culture - Final NO GROWTH AFTER 5 DAYS INCUBATION 11/25/17 17:56 Foot - Left Gram Stain - Final 11/25/17 17:56 Foot - Left Wound Culture - Final Proteus Mirabilis Staphylococcus Aureus Enterococcus Faecalis 11/25/17 12:23 Blood - Peripheral Venous Blood Culture - Final NO GROWTH AFTER 5 DAYS INCUBATION 11/25/17 12:15 Blood - Peripheral Venous Blood Culture - Final Staphylococcus Haemolyticus a/p toe infection r/o osteo, continue unasyn blood culture isolate contaminant no need for further vancomycin continue unasyn d/w podiatry will order plan films of the foot Problem List - Problems (1) Bacteremia Code(s): R78.81 - BACTEREMIA (2) Toe infection Code(s): L08.9 - LOCAL INFECTION OF THE SKIN AND SUBCUTANEOUS TISSUE, UNSP (3) Renal failure (ARF), acute on chronic Code(s): N17.9 - ACUTE KIDNEY FAILURE, UNSPECIFIED; N18.9 - CHRONIC KIDNEY DISEASE, UNSPECIFIED (4) Anemia Code(s): D64.9 - ANEMIA, UNSPECIFIED
[2017-12-02] MEDS: COLLAGENASE CLOSTRIDIUM HIST. 30 GRAMS TUBE TP SCH (16:15)
--- NOTE | 2017-12-02 16:37 | PN ---
Progress Note, Physician History of Present Illness: Pt seen and examined at bedside. She is awake and appears comfortable. She denies shortness of breath. - Current Medication List Current Medications: Active Medications Acetaminophen (Tylenol -) 650 mg PO Q6H PRN PRN Reason: Fever Amlodipine Besylate (Norvasc -) 10 mg PO DAILY [facility] Last Admin: 12/02/17 10:30 Dose: 10 mg Collagenase (Santyl -) 1 applic TP DAILY [facility]; Protocol Last Admin: 12/02/17 16:15 Dose: 1 applic Escitalopram Oxalate (Lexapro -) 10 mg PO DAILY [facility] Last Admin: 12/02/17 10:31 Dose: 10 mg Heparin Sodium (Porcine) (Heparin -) 5,000 unit SQ TID [facility] Last Admin: 12/02/17 13:19 Dose: 5,000 unit Hydralazine HCl (Apresoline -) 10 mg PO BID [facility] Last Admin: 12/02/17 10:31 Dose: 10 mg Ampicillin Sodium/Sulbactam (Sodium 1.5 gm/ Sodium Chloride) 100 mls @ 200 mls/ hr IVPB Q12H [facility] Last Admin: 12/02/17 05:33 Dose: 200 mls/hr Levothyroxine Sodium (Synthroid -) 125 mcg PO DAILY@0700 [facility] Last Admin: 12/02/17 06:28 Dose: 125 mcg Pantoprazole Sodium (Protonix -) 40 mg PO DAILY [facility] - Objective Vital Signs: Vital Signs Temperature 98.1 F 12/02/17 14:32 Pulse Rate 63 12/02/17 14:32 Respiratory Rate 22 H 12/02/17 14:32 Blood Pressure 139/56 L 12/02/17 14:32 O2 Sat by Pulse Oximetry (%) 94 L 12/02/17 09:00 Constitutional: Yes: Calm Eyes: Yes: Conjunctiva Clear HENT: Yes: Atraumatic Cardiovascular: Yes: S1, S2 Respiratory: Yes: CTA Bilaterally Gastrointestinal: Yes: Soft Musculoskeletal: Yes: Muscle Weakness Edema: No Neurological: Yes: Confusion Labs: CBC, BMP 12/01/17 07:30 12/01/17 07:30 INR, PTT INR 0.92 (0.83-1.09) 11/26/17 06:45 Problem List - Problems (1) Renal failure (ARF), acute on chronic Code(s): N17.9 - ACUTE KIDNEY FAILURE, UNSPECIFIED; N18.9 - CHRONIC KIDNEY DISEASE, UNSPECIFIED Assessment/Plan Current Medications Generic Name Dose Route Start Last Admin Trade Name Armani PRN Reason Stop Dose Admin Acetaminophen 650 mg 11/25/17 18:16 Tylenol - PO Q6H PRN Fever Amlodipine Besylate 10 mg 11/26/17 10:00 12/02/17 10:30 Norvasc - PO 10 mg DAILY [facility] Administration Collagenase 1 applic 11/27/17 11:15 12/02/17 16:15 Santyl - TP 1 applic DAILY [facility] Administration Protocol Escitalopram Oxalate 10 mg 11/26/17 10:00 12/02/17 10:31 Lexapro - PO 10 mg DAILY [facility] Administration Heparin Sodium (Porcine) 5,000 unit 11/25/17 22:00 12/02/17 13:19 Heparin - SQ 5,000 unit TID [facility] Administration Hydralazine HCl 10 mg 11/25/17 22:00 12/02/17 10:31 Apresoline - PO 10 mg BID [facility] Administration Ampicillin Sodium/Sulbactam 100 mls @ 200 mls/hr 12/01/17 17:00 12/02/17 05: 33 Sodium 1.5 gm/ Sodium Chloride IVPB 200 mls/hr Q12H [facility] Administration Levothyroxine Sodium 125 mcg 12/02/17 07:00 12/02/17 06:28 Synthroid - PO 125 mcg DAILY@0700 [facility] Administration Pantoprazole Sodium 40 mg 12/03/17 10:00 Protonix - PO DAILY [facility] Impression 1. LUCERO 2. CKD 3. toe ulcer 4. hypothryoid 5. dementia 6. parkinsons 7. HTN 8. hyponatremia 9. 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
--- NOTE | 2017-12-02 21:17 | PN ---
Progress Note (short form) - Note Progress Note: Fuv left foot. Seen around 4:30pm today. +demarcating 4th toe left, +improved cellulitis, +edema, om 4th toe? wound 4th toe left gout? Cultured for gout crystals by Dr. Goldman. MRI today. Santyl dressing change 4th toe left. Awaiting MRI still. will follow. Problem List - Problems (1) Toe infection Code(s): L08.9 - LOCAL INFECTION OF THE SKIN AND SUBCUTANEOUS TISSUE, UNSP
[2017-12-03] MEDS ORDERED: AMPICILLIN NA/SULBACTAM NA 1.5 GM VIAL ONE ×3 (05:35→18:20)
[2017-12-03] MEDS ORDERED: SODIUM CHLORIDE 100 ML IVPB ONE ×3 (05:35→18:20)
[2017-12-03] MEDS: AMPICILLIN NA/SULBACTAM NA 1.5 GM in SODIUM CHLORIDE 100 ML IVPB SCH ×3 (05:44→18:24)
[2017-12-03] MEDS: HEPARIN NA (PORCINE) 5,000 UNITS/ML 1ML VIAL SQ SCH ×3 (05:44→21:36)
[2017-12-03] MEDS: LEVOTHYROXINE NA 125 MCG TABLET (FP) PO SCH (06:21)
[2017-12-03] MEDS ORDERED: PT OWN MED DRAWER 7, Y5N ONE (06:59)
[2017-12-03] MEDS: amLODIPine BESYLATE 10 MG TABLET (FP) PO SCH (09:52)
[2017-12-03] MEDS: ESCITALOPRAM OXALATE 10 MG TABLET (FP) PO SCH (09:52)
[2017-12-03] MEDS: hydrALAZINE HCL 10 MG TABLET PO SCH ×2 (09:52→21:36)
[2017-12-03] MEDS: PANTOPRAZOLE 40 MG TABLET (FP) PO SCH (09:52)
--- NOTE | 2017-12-03 10:53 | PN ---
Progress Note, Physician Chief Complaint: patient seen and examined in bed awake went for foot xray last night report is pending - Current Medication List Current Medications: Active Medications Acetaminophen (Tylenol -) 650 mg PO Q6H PRN PRN Reason: Fever Amlodipine Besylate (Norvasc -) 10 mg PO DAILY [facility] Last Admin: 12/03/17 09:52 Dose: 10 mg Collagenase (Santyl -) 1 applic TP DAILY [facility]; Protocol Last Admin: 12/02/17 16:15 Dose: 1 applic Escitalopram Oxalate (Lexapro -) 10 mg PO DAILY [facility] Last Admin: 12/03/17 09:52 Dose: 10 mg Heparin Sodium (Porcine) (Heparin -) 5,000 unit SQ TID [facility] Last Admin: 12/03/17 05:44 Dose: 5,000 unit Hydralazine HCl (Apresoline -) 10 mg PO BID [facility] Last Admin: 12/03/17 09:52 Dose: 10 mg Ampicillin Sodium/Sulbactam (Sodium 1.5 gm/ Sodium Chloride) 100 mls @ 200 mls/ hr IVPB Q12H [facility] Last Admin: 12/03/17 05:44 Dose: 200 mls/hr Levothyroxine Sodium (Synthroid -) 125 mcg PO DAILY@0700 [facility] Last Admin: 12/03/17 06:21 Dose: 125 mcg Pantoprazole Sodium (Protonix -) 40 mg PO DAILY [facility] Last Admin: 12/03/17 09:52 Dose: 40 mg - Objective Vital Signs: Vital Signs Temperature 97.5 F L 12/03/17 09:30 Pulse Rate 60 12/03/17 09:30 Respiratory Rate 20 12/03/17 09:30 Blood Pressure 141/71 12/03/17 09:30 O2 Sat by Pulse Oximetry (%) 95 12/02/17 21:00 Constitutional: Yes: Calm Cardiovascular: Yes: Regular Rate and Rhythm, S1, S2 Respiratory: Yes: CTA Bilaterally Gastrointestinal: Yes: Normal Bowel Sounds, Soft Extremities: Yes: Other (fourth toe wound covered in dressing) Neurological: Yes: Alert, Oriented (to name) Labs: CBC, BMP 12/01/17 07:30 12/01/17 07:30 INR, PTT INR 0.92 (0.83-1.09) 11/26/17 06:45 Problem List - Problems (1) Toe infection Assessment/Plan: Microbiology 11/25/17 17:56 Foot - Left Gram Stain - Final 11/25/17 17:56 Foot - Left Wound Culture - Preliminary Proteus Mirabilis Staphylococcus Aureus Group D Strep Or Entero Coccus on iv unasyn patient to get MRI tonight podiatry on board collagenase foot xray done awaiting report Code(s): L08.9 - LOCAL INFECTION OF THE SKIN AND SUBCUTANEOUS TISSUE, UNSP (2) Anemia Assessment/Plan: iron panel noted anemia of chronic disease GI eval noted patient will think about egd trend h/h- improved Code(s): D64.9 - ANEMIA, UNSPECIFIED (3) Shortness of breath Assessment/Plan: cxr noted congestive changes-improved after two dose of lasix stop ivf iv lasix given yesterday now off venti mask sat 97 on RA Code(s): R06.02 - SHORTNESS OF BREATH (4) Hypothyroid Assessment/Plan: on synthroid tsh normal Code(s): E03.9 - HYPOTHYROIDISM, UNSPECIFIED
[2017-12-03] MEDS: COLLAGENASE CLOSTRIDIUM HIST. 30 GRAMS TUBE TP SCH (13:13)
--- NOTE | 2017-12-03 15:22 | PATH ---
Cytology Non-Gynecological Report Patient Name: EVIE GUAMAN [facility]. Rec. #: [id number] /Age/Gender: 1940 (Age: 77) / F Account: [id number] Location: [address] [place] [address]/[facility] Taken: 12/02/2017 Received: 12/03/2017 Reported: 12/03/2017 Physicians: Jarvis Callaway M.D. Specimen(s) Received TOE DRAINAGE Clinical History Toe drainage rule out gout Final Diagnosis TOE DRAINAGE FOR CYTOLOGY: SATISFACTORY FOR EVALUATION. NEGATIVE FOR MALIGNANCY. NEGATIVE BIREFRINGENT NEEDLE SHAPED CRYSTALS PRESENT, CONSISTENT WITH MONOSODIUM URATE (GOUT). Electronically Signed Keena Escalante M.D. Gross Description Received fresh in a sterile cup and gauze is an aggregate of 0.7 cm, rojas-chalky pasty material. Two direct smears prepared.
--- NOTE | 2017-12-03 16:06 | PN ---
Progress Note, Physician History of Present Illness: Pt seen and examined at bedside. She is awake but confused. She denies shortness of breath. - Current Medication List Current Medications: Active Medications Acetaminophen (Tylenol -) 650 mg PO Q6H PRN PRN Reason: Fever Amlodipine Besylate (Norvasc -) 10 mg PO DAILY [facility] Last Admin: 12/03/17 09:52 Dose: 10 mg Collagenase (Santyl -) 1 applic TP DAILY [facility]; Protocol Last Admin: 12/03/17 13:13 Dose: 1 applic Escitalopram Oxalate (Lexapro -) 10 mg PO DAILY [facility] Last Admin: 12/03/17 09:52 Dose: 10 mg Heparin Sodium (Porcine) (Heparin -) 5,000 unit SQ TID [facility] Last Admin: 12/03/17 13:05 Dose: 5,000 unit Hydralazine HCl (Apresoline -) 10 mg PO BID [facility] Last Admin: 12/03/17 09:52 Dose: 10 mg Ampicillin Sodium/Sulbactam (Sodium 1.5 gm/ Sodium Chloride) 100 mls @ 200 mls/ hr IVPB Q12H [facility] Last Admin: 12/03/17 05:44 Dose: 200 mls/hr Levothyroxine Sodium (Synthroid -) 125 mcg PO DAILY@0700 [facility] Last Admin: 12/03/17 06:21 Dose: 125 mcg Pantoprazole Sodium (Protonix -) 40 mg PO DAILY [facility] Last Admin: 12/03/17 09:52 Dose: 40 mg - Objective Vital Signs: Vital Signs Temperature 97.7 F 12/03/17 14:23 Pulse Rate 60 12/03/17 14:23 Respiratory Rate 20 12/03/17 14:23 Blood Pressure 158/57 L 12/03/17 14:23 O2 Sat by Pulse Oximetry (%) 94 L 12/03/17 09:00 Constitutional: Yes: Calm Eyes: Yes: Conjunctiva Clear HENT: Yes: Atraumatic Cardiovascular: Yes: S1, S2 Respiratory: Yes: CTA Bilaterally Gastrointestinal: Yes: Soft Genitourinary: Yes: Incontinence Edema: No Wound/Incision: Yes: Dressing Dry and Intact Neurological: Yes: Confusion Labs: CBC, BMP 12/01/17 07:30 12/01/17 07:30 INR, PTT INR 0.92 (0.83-1.09) 11/26/17 06:45 Problem List - Problems (1) Renal failure (ARF), acute on chronic Code(s): N17.9 - ACUTE KIDNEY FAILURE, UNSPECIFIED; N18.9 - CHRONIC KIDNEY DISEASE, UNSPECIFIED Assessment/Plan Current Medications Generic Name Dose Route Start Last Admin Trade Name Freq PRN Reason Stop Dose Admin Acetaminophen 650 mg 11/25/17 18:16 Tylenol - PO Q6H PRN Fever Amlodipine Besylate 10 mg 11/26/17 10:00 12/03/17 09:52 Norvasc - PO 10 mg DAILY [facility] Administration Collagenase 1 applic 11/27/17 11:15 12/03/17 13:13 Santyl - TP 1 applic DAILY [facility] Administration Protocol Escitalopram Oxalate 10 mg 11/26/17 10:00 12/03/17 09:52 Lexapro - PO 10 mg DAILY [facility] Administration Heparin Sodium (Porcine) 5,000 unit 11/25/17 22:00 12/03/17 13:05 Heparin - SQ 5,000 unit TID [facility] Administration Hydralazine HCl 10 mg 11/25/17 22:00 12/03/17 09:52 Apresoline - PO 10 mg BID [facility] Administration Ampicillin Sodium/Sulbactam 100 mls @ 200 mls/hr 12/01/17 17:00 12/03/17 05: 44 Sodium 1.5 gm/ Sodium Chloride IVPB 200 mls/hr Q12H [facility] Administration Levothyroxine Sodium 125 mcg 12/02/17 07:00 12/03/17 06:21 Synthroid - PO 125 mcg DAILY@0700 [facility] Administration Pantoprazole Sodium 40 mg 12/03/17 10:00 12/03/17 09:52 Protonix - PO 40 mg DAILY [facility] Administration Impression 1. CKD 2. right renal cyst 3. toe ulcer 4. hypothryoid 5. dementia 6. parkinsons 7. HTN 8. 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
[2017-12-03] MEDS ORDERED: LORazepam 2 MG/ML SDV VIAL IVPUSH ONE (18:15)
[2017-12-04] MEDS ORDERED: AMPICILLIN NA/SULBACTAM NA 1.5 GM VIAL ONE ×2 (05:42→17:30)
[2017-12-04] MEDS ORDERED: SODIUM CHLORIDE 100 ML IVPB ONE ×2 (05:42→17:31)
[2017-12-04] MEDS: AMPICILLIN NA/SULBACTAM NA 1.5 GM in SODIUM CHLORIDE 100 ML IVPB SCH ×2 (05:49→17:34)
[2017-12-04] MEDS: HEPARIN NA (PORCINE) 5,000 UNITS/ML 1ML VIAL SQ SCH ×3 (05:50→22:13)
[2017-12-04] MEDS: LEVOTHYROXINE NA 125 MCG TABLET (FP) PO SCH (06:43)
[2017-12-04 07:58] LABS: BASO % 2.4 % (0-2.0); EOS % 4.9 % (0-4.5); HEMATOCRIT 27.2 % (32.4-45.2); HEMOGLOBIN 8.7 GM/dL (10.7-15.3); LYMPH % 14.4 % (8-40); MCH 26.3 pg (25.7-33.7); MCHC 32.1 g/dl (32.0-36.0); MEAN PLT VOLUME 7.9 fl (7.5-11.1); MONO % 7.7 % (3.8-10.2); NEUT % 70.6 % (42.8-82.8); PLATELET COUNT 311 K/MM3 (134-434); RBC 3.32 M/mm3 (3.60-5.2); RDW 18.8 % (11.6-15.6); WHITE BLOOD COUNT 5.7 K/mm3 (4.0-10.0)
[2017-12-04 08:42] LABS: ALBUMIN 2.8 g/dl (3.4-5.0); ALK PHOS 87 U/L (45-117); ANION GAP 9 MMOL/L (8-16); BILIRUBIN,TOTAL 0.4 mg/dL (0.2-1); BLOOD UREA NITROGEN 43 mg/dL (7-18); CALCIUM 9.6 mg/dL (8.5-10.1); CHLORIDE 100 mmol/L (98-107); CO2 23 mmol/L (21-32); CREATININE 2.3 mg/dL (0.55-1.3); GLUCOSE,RANDOM 66 mg/dL (74-106); POTASSIUM 4.9 mmol/L (3.5-5.1); SGOT/AST 16 U/L (15-37); SGPT/ALT 10 U/L (13-61); SODIUM 132 mmol/L (136-145); TOT PROT 7.2 g/dl (6.4-8.2)
[2017-12-04] MEDS: hydrALAZINE HCL 10 MG TABLET PO SCH ×2 (09:33→22:13)
[2017-12-04] MEDS: ESCITALOPRAM OXALATE 10 MG TABLET (FP) PO SCH (09:33)
[2017-12-04] MEDS: PANTOPRAZOLE 40 MG TABLET (FP) PO SCH (09:33)
[2017-12-04] MEDS: amLODIPine BESYLATE 10 MG TABLET (FP) PO SCH (09:33)
--- NOTE | 2017-12-04 11:07 | PN ---
Progress Note, Physician - Current Medication List Current Medications: Active Medications Acetaminophen (Tylenol -) 650 mg PO Q6H PRN PRN Reason: Fever Amlodipine Besylate (Norvasc -) 10 mg PO DAILY [facility] Last Admin: 12/04/17 09:33 Dose: 10 mg Collagenase (Santyl -) 1 applic TP DAILY [facility]; Protocol Last Admin: 12/03/17 13:13 Dose: 1 applic Escitalopram Oxalate (Lexapro -) 10 mg PO DAILY [facility] Last Admin: 12/04/17 09:33 Dose: 10 mg Heparin Sodium (Porcine) (Heparin -) 5,000 unit SQ TID [facility] Last Admin: 12/04/17 05:50 Dose: 5,000 unit Hydralazine HCl (Apresoline -) 10 mg PO BID [facility] Last Admin: 12/04/17 09:33 Dose: 10 mg Ampicillin Sodium/Sulbactam (Sodium 1.5 gm/ Sodium Chloride) 100 mls @ 200 mls/ hr IVPB Q12H [facility] Last Admin: 12/04/17 05:49 Dose: 200 mls/hr Levothyroxine Sodium (Synthroid -) 125 mcg PO DAILY@0700 [facility] Last Admin: 12/04/17 06:43 Dose: 125 mcg Lorazepam (Ativan Injection -) 0.5 mg IVPUSH ONCE ONE Stop: 12/03/17 18:43 Pantoprazole Sodium (Protonix -) 40 mg PO DAILY [facility] Last Admin: 12/04/17 09:33 Dose: 40 mg - Objective Vital Signs: Vital Signs Temperature 97.7 F 12/04/17 10:22 Pulse Rate 51 L 12/04/17 09:19 Respiratory Rate 18 12/04/17 09:19 Blood Pressure 170/70 12/04/17 09:19 O2 Sat by Pulse Oximetry (%) 97 12/03/17 21:00 Cardiovascular: Yes: S1, S2 Respiratory: Yes: Regular, CTA Bilaterally Gastrointestinal: Yes: Normal Bowel Sounds, Soft Edema: No Wound/Incision: Yes: Dressing Removed. No: Draining Labs: CBC, BMP 12/04/17 07:10 12/04/17 07:10 INR, PTT INR 0.92 (0.83-1.09) 11/26/17 06:45 Problem List - Problems (1) Anemia Code(s): D64.9 - ANEMIA, UNSPECIFIED (2) Bacteremia Code(s): R78.81 - BACTEREMIA (3) Renal failure (ARF), acute on chronic Code(s): N17.9 - ACUTE KIDNEY FAILURE, UNSPECIFIED; N18.9 - CHRONIC KIDNEY DISEASE, UNSPECIFIED (4) Skin ulcer of fourth toe of left foot Code(s): L97.529 - NON-PRESSURE CHRONIC ULCER OTH PRT LEFT FOOT W UNSP SEVERITY (5) HTN (hypertension) Code(s): I10 - ESSENTIAL (PRIMARY) HYPERTENSION Assessment/Plan - Problems (1) Toe infection Assessment/Plan: Microbiology 11/25/17 17:56 Foot - Left Gram Stain - Final 11/25/17 17:56 Foot - Left Wound Culture - Preliminary Proteus Mirabilis Staphylococcus Aureus Group D Strep Or Entero Coccus on iv unasyn patient to get MRI tonight podiatry on board collagenase foot xray done awaiting report Code(s): L08.9 - LOCAL INFECTION OF THE SKIN AND SUBCUTANEOUS TISSUE, UNSP (2) Anemia Assessment/Plan: iron panel noted anemia of chronic disease GI eval noted patient will think about egd trend h/h- improved Code(s): D64.9 - ANEMIA, UNSPECIFIED (3) Shortness of breath Assessment/Plan: cxr noted congestive changes-improved after two dose of lasix stop ivf iv lasix given yesterday now off venti mask sat 97 on RA Code(s): R06.02 - SHORTNESS OF BREATH (4) Hypothyroid Assessment/Plan: on synthroid tsh normal Code(s): E03.9 - HYPOTHYROIDISM, UNSPECIFIED
--- NOTE | 2017-12-04 12:56 | PN ---
Progress Note (short form) - Note Progress Note: Fuv left foot. Patient states MRI done last night. +demarcating 4th toe left, +improved cellulitis, +edema, multiple species noted on wound cultures, mri result not available om 4th toe? wound 4th toe left gout? Awaiting MRI results today. Santyl dressing change 4th toe left. will follow Problem List - Problems (1) Toe infection Code(s): L08.9 - LOCAL INFECTION OF THE SKIN AND SUBCUTANEOUS TISSUE, UNSP
[2017-12-04] MEDS ORDERED: PT OWN MED DRAWER 7, Y5N ONE (14:30)
[2017-12-04] MEDS: COLLAGENASE CLOSTRIDIUM HIST. 30 GRAMS TUBE TP SCH (18:08)
[2017-12-05] MEDS ORDERED: SODIUM CHLORIDE 100 ML IVPB ONE ×2 (06:16→17:47)
[2017-12-05] MEDS ORDERED: AMPICILLIN NA/SULBACTAM NA 1.5 GM VIAL ONE ×2 (06:16→17:46)
[2017-12-05] MEDS: LEVOTHYROXINE NA 125 MCG TABLET (FP) PO SCH (06:25)
[2017-12-05] MEDS: HEPARIN NA (PORCINE) 5,000 UNITS/ML 1ML VIAL SQ SCH ×3 (06:25→23:06)
[2017-12-05] MEDS: AMPICILLIN NA/SULBACTAM NA 1.5 GM in SODIUM CHLORIDE 100 ML IVPB SCH ×2 (06:26→18:21)
--- NOTE | 2017-12-05 10:18 | PN ---
Progress Note, Physician - Current Medication List Current Medications: Active Medications Acetaminophen (Tylenol -) 650 mg PO Q6H PRN PRN Reason: Fever Amlodipine Besylate (Norvasc -) 10 mg PO DAILY [facility] Last Admin: 12/04/17 09:33 Dose: 10 mg Collagenase (Santyl -) 1 applic TP DAILY [facility]; Protocol Last Admin: 12/04/17 18:08 Dose: 1 applic Escitalopram Oxalate (Lexapro -) 10 mg PO DAILY [facility] Last Admin: 12/04/17 09:33 Dose: 10 mg Heparin Sodium (Porcine) (Heparin -) 5,000 unit SQ TID [facility] Last Admin: 12/05/17 06:25 Dose: 5,000 unit Hydralazine HCl (Apresoline -) 10 mg PO BID [facility] Last Admin: 12/04/17 22:13 Dose: 10 mg Ampicillin Sodium/Sulbactam (Sodium 1.5 gm/ Sodium Chloride) 100 mls @ 200 mls/ hr IVPB Q12H [facility] Last Admin: 12/05/17 06:26 Dose: 200 mls/hr Levothyroxine Sodium (Synthroid -) 125 mcg PO DAILY@0700 [facility] Last Admin: 12/05/17 06:25 Dose: 125 mcg Lorazepam (Ativan Injection -) 0.5 mg IVPUSH ONCE ONE Stop: 12/03/17 18:43 Pantoprazole Sodium (Protonix -) 40 mg PO DAILY [facility] Last Admin: 12/04/17 09:33 Dose: 40 mg - Objective Vital Signs: Vital Signs Temperature 98.6 F 12/05/17 06:00 Pulse Rate 68 12/05/17 06:00 Respiratory Rate 20 12/05/17 06:00 Blood Pressure 144/79 12/05/17 06:00 O2 Sat by Pulse Oximetry (%) 97 12/04/17 21:00 Cardiovascular: Yes: S1, S2 Respiratory: Yes: Regular, CTA Bilaterally Gastrointestinal: Yes: Normal Bowel Sounds, Soft Wound/Incision: Yes: Dressing Removed. No: Draining, Reddened Labs: CBC, BMP 12/04/17 07:10 12/04/17 07:10 INR, PTT INR 0.92 (0.83-1.09) 11/26/17 06:45 Problem List - Problems (1) Anemia Code(s): D64.9 - ANEMIA, UNSPECIFIED (2) Bacteremia Code(s): R78.81 - BACTEREMIA (3) Renal failure (ARF), acute on chronic Code(s): N17.9 - ACUTE KIDNEY FAILURE, UNSPECIFIED; N18.9 - CHRONIC KIDNEY DISEASE, UNSPECIFIED (4) Skin ulcer of fourth toe of left foot Code(s): L97.529 - NON-PRESSURE CHRONIC ULCER OTH PRT LEFT FOOT W UNSP SEVERITY (5) HTN (hypertension) Code(s): I10 - ESSENTIAL (PRIMARY) HYPERTENSION Assessment/Plan - Problems (1) Toe infection Assessment/Plan: Microbiology 11/25/17 17:56 Foot - Left Gram Stain - Final 11/25/17 17:56 Foot - Left Wound Culture - Preliminary Proteus Mirabilis Staphylococcus Aureus Group D Strep Or Entero Coccus on iv unasyn patient refusing MRI podiatry on board collagenase will d/w id regarding abx Code(s): L08.9 - LOCAL INFECTION OF THE SKIN AND SUBCUTANEOUS TISSUE, UNSP (2) Anemia Assessment/Plan: iron panel noted anemia of chronic disease GI eval noted patient will think about egd trend h/h- improved Code(s): D64.9 - ANEMIA, UNSPECIFIED (3) Shortness of breath Assessment/Plan: cxr noted congestive changes-improved after two dose of lasix iv lasix given -improved monitor Code(s): R06.02 - SHORTNESS OF BREATH (4) Hypothyroid Assessment/Plan: on synthroid tsh normal Code(s): E03.9 - HYPOTHYROIDISM, UNSPECIFIED
[2017-12-05] MEDS: PANTOPRAZOLE 40 MG TABLET (FP) PO SCH (10:54)
[2017-12-05] MEDS: ESCITALOPRAM OXALATE 10 MG TABLET (FP) PO SCH (10:54)
[2017-12-05] MEDS: hydrALAZINE HCL 10 MG TABLET PO SCH ×2 (10:54→23:06)
[2017-12-05] MEDS: amLODIPine BESYLATE 10 MG TABLET (FP) PO SCH (10:54)
[2017-12-05] MEDS: COLLAGENASE CLOSTRIDIUM HIST. 30 GRAMS TUBE TP SCH (15:58)
--- NOTE | 2017-12-05 17:39 | PN ---
Progress Note, Physician History of Present Illness: No c/o foot pain No fever/ chills Unable to have MRI - Current Medication List Current Medications: Active Medications Acetaminophen (Tylenol -) 650 mg PO Q6H PRN PRN Reason: Fever Amlodipine Besylate (Norvasc -) 10 mg PO DAILY [facility] Last Admin: 12/05/17 10:54 Dose: 10 mg Collagenase (Santyl -) 1 applic TP DAILY [facility]; Protocol Last Admin: 12/05/17 15:58 Dose: 1 applic Escitalopram Oxalate (Lexapro -) 10 mg PO DAILY [facility] Last Admin: 12/05/17 10:54 Dose: 10 mg Heparin Sodium (Porcine) (Heparin -) 5,000 unit SQ TID [facility] Last Admin: 12/05/17 13:25 Dose: 5,000 unit Hydralazine HCl (Apresoline -) 10 mg PO BID [facility] Last Admin: 12/05/17 10:54 Dose: 10 mg Ampicillin Sodium/Sulbactam (Sodium 1.5 gm/ Sodium Chloride) 100 mls @ 200 mls/ hr IVPB Q12H [facility] Last Admin: 12/05/17 06:26 Dose: 200 mls/hr Levothyroxine Sodium (Synthroid -) 125 mcg PO DAILY@0700 [facility] Last Admin: 12/05/17 06:25 Dose: 125 mcg Lorazepam (Ativan Injection -) 0.5 mg IVPUSH ONCE ONE Stop: 12/03/17 18:43 Pantoprazole Sodium (Protonix -) 40 mg PO DAILY [facility] Last Admin: 12/05/17 10:54 Dose: 40 mg - Objective Vital Signs: Vital Signs Temperature 97.5 F L 12/05/17 14:24 Pulse Rate 60 12/05/17 14:24 Respiratory Rate 22 H 12/05/17 14:24 Blood Pressure 153/68 12/05/17 14:24 O2 Sat by Pulse Oximetry (%) 97 12/04/17 21:00 Constitutional: Yes: No Distress Eyes: Yes: Conjunctiva Clear Cardiovascular: Yes: Regular Rate and Rhythm, S1, S2 Respiratory: Yes: CTA Bilaterally Gastrointestinal: Yes: Normal Bowel Sounds, Soft Extremities: Yes: Other (+ L 4th toe swelling) Labs: CBC, BMP 12/04/17 07:10 12/04/17 07:10 INR, PTT INR 0.92 (0.83-1.09) 10/05/18 06:45 Assessment/Plan L 4th toe cellulitis R/O osteomyelitis Will re-atempt MRI Continue Unasyn, local wound care
[2017-12-05] MEDS ORDERED: PT OWN MED DRAWER 7, Y5N ONE (18:34)
[2017-12-06] MEDS ORDERED: SODIUM CHLORIDE 100 ML IVPB ONE ×2 (04:51→17:33)
[2017-12-06] MEDS ORDERED: AMPICILLIN NA/SULBACTAM NA 1.5 GM VIAL ONE ×2 (04:51→17:33)
[2017-12-06] MEDS: HEPARIN NA (PORCINE) 5,000 UNITS/ML 1ML VIAL SQ SCH ×3 (06:18→21:56)
[2017-12-06] MEDS: LEVOTHYROXINE NA 125 MCG TABLET (FP) PO SCH (06:20)
[2017-12-06] MEDS: AMPICILLIN NA/SULBACTAM NA 1.5 GM in SODIUM CHLORIDE 100 ML IVPB SCH ×2 (06:20→17:50)
[2017-12-06 07:36] LABS: BASO % 2.1 % (0-2.0); EOS % 4.9 % (0-4.5); HEMATOCRIT 24.9 % (32.4-45.2); HEMOGLOBIN 7.9 GM/dL (10.7-15.3); LYMPH % 15.9 % (8-40); MCHC 31.7 g/dl (32.0-36.0); MEAN CELL VOLUME 81.9 fl (80-96); MEAN PLT VOLUME 7.7 fl (7.5-11.1); MONO % 6.9 % (3.8-10.2); NEUT % 70.2 % (42.8-82.8); PLATELET COUNT 339 K/MM3 (134-434); RBC 3.04 M/mm3 (3.60-5.2); RDW 18.4 % (11.6-15.6); WHITE BLOOD COUNT 5.8 K/mm3 (4.0-10.0)
[2017-12-06 08:18] LABS: ALBUMIN 2.6 g/dl (3.4-5.0); ALK PHOS 82 U/L (45-117); ANION GAP 10 MMOL/L (8-16); BILIRUBIN,TOTAL 0.4 mg/dL (0.2-1); BLOOD UREA NITROGEN 49 mg/dL (7-18); CALCIUM 8.7 mg/dL (8.5-10.1); CHLORIDE 102 mmol/L (98-107); CO2 23 mmol/L (21-32); CREATININE 2.4 mg/dL (0.55-1.3); GLUCOSE,RANDOM 78 mg/dL (74-106); POTASSIUM 4.5 mmol/L (3.5-5.1); SGOT/AST 18 U/L (15-37); SGPT/ALT 9 U/L (13-61); SODIUM 135 mmol/L (136-145); TOT PROT 6.8 g/dl (6.4-8.2)
[2017-12-06 10:39] LABS: ERYTHROCYTE SEDIMENTATION RATE 116 mm/hr (0-30)
[2017-12-06] MEDS ORDERED: PT OWN MED DRAWER 7, Y5N ONE (10:52)
[2017-12-06] MEDS: PANTOPRAZOLE 40 MG TABLET (FP) PO SCH (10:53)
[2017-12-06] MEDS: ESCITALOPRAM OXALATE 10 MG TABLET (FP) PO SCH (10:53)
[2017-12-06] MEDS: amLODIPine BESYLATE 10 MG TABLET (FP) PO SCH (10:53)
[2017-12-06] MEDS: hydrALAZINE HCL 10 MG TABLET PO SCH ×2 (10:53→21:56)
--- NOTE | 2017-12-06 11:29 | PN ---
Progress Note, Physician Chief Complaint: patient unable to get MRI=- she was moving too much ativan order in computer - Current Medication List Current Medications: Active Medications Acetaminophen (Tylenol -) 650 mg PO Q6H PRN PRN Reason: Fever Amlodipine Besylate (Norvasc -) 10 mg PO DAILY [facility] Last Admin: 12/06/17 10:53 Dose: 10 mg Collagenase (Santyl -) 1 applic TP DAILY [facility]; Protocol Last Admin: 12/05/17 15:58 Dose: 1 applic Escitalopram Oxalate (Lexapro -) 10 mg PO DAILY [facility] Last Admin: 12/06/17 10:53 Dose: 10 mg Heparin Sodium (Porcine) (Heparin -) 5,000 unit SQ TID [facility] Last Admin: 12/06/17 06:18 Dose: 5,000 unit Hydralazine HCl (Apresoline -) 10 mg PO BID [facility] Last Admin: 12/06/17 10:53 Dose: 10 mg Ampicillin Sodium/Sulbactam (Sodium 1.5 gm/ Sodium Chloride) 100 mls @ 200 mls/ hr IVPB Q12H [facility] Last Admin: 12/06/17 06:20 Dose: 200 mls/hr Levothyroxine Sodium (Synthroid -) 125 mcg PO DAILY@0700 [facility] Last Admin: 12/06/17 06:20 Dose: 125 mcg Lorazepam (Ativan Injection -) 0.5 mg IVPUSH ONCE ONE Stop: 12/03/17 18:43 Pantoprazole Sodium (Protonix -) 40 mg PO DAILY [facility] Last Admin: 12/06/17 10:53 Dose: 40 mg - Objective Vital Signs: Vital Signs Temperature 98 F 12/06/17 09:03 Pulse Rate 63 12/06/17 09:03 Respiratory Rate 18 12/06/17 09:03 Blood Pressure 130/58 L 12/06/17 09:03 O2 Sat by Pulse Oximetry (%) 99 12/05/17 21:00 Constitutional: Yes: Calm Cardiovascular: Yes: Regular Rate and Rhythm, S1, S2 Respiratory: Yes: CTA Bilaterally Gastrointestinal: Yes: Normal Bowel Sounds, Soft Edema: No Wound/Incision: Yes: Other (left fourth toe drainage) Neurological: Yes: Alert, Oriented (to name) Labs: CBC, BMP 12/06/17 07:10 12/06/17 07:10 INR, PTT INR 0.92 (0.83-1.09) 11/26/17 06:45 Problem List - Problems (1) HTN (hypertension) Assessment/Plan: hydralazine and norvasc Code(s): I10 - ESSENTIAL (PRIMARY) HYPERTENSION (2) Toe infection Assessment/Plan: Microbiology 11/25/17 17:56 Foot - Left Gram Stain - Final 11/25/17 17:56 Foot - Left Wound Culture - Preliminary Proteus Mirabilis Staphylococcus Aureus Group D Strep Or Entero Coccus on iv unasyn patient unable to get MRI yesterday- ativan order in computer will reattempt again podiatry on board collagenase foot xray done 0 possible destructive process involving left fourth toe- awaiting MRI Code(s): L08.9 - LOCAL INFECTION OF THE SKIN AND SUBCUTANEOUS TISSUE, UNSP (3) Anemia Assessment/Plan: iron panel noted anemia of chronic disease GI eval noted patient will think about egd trend h/h- improved Code(s): D64.9 - ANEMIA, UNSPECIFIED (4) Shortness of breath Assessment/Plan: cxr noted congestive changes-improved after two dose of lasix stop ivf iv lasix given yesterday now off venti mask sat 97 on RA Code(s): R06.02 - SHORTNESS OF BREATH (5) Hypothyroid Assessment/Plan: on synthroid tsh normal Code(s): E03.9 - HYPOTHYROIDISM, UNSPECIFIED
--- NOTE | 2017-12-06 11:33 | PN ---
Progress Note, Physician History of Present Illness: Pt seen and examined at bedside. She remains confused. She denies shortness of breath. - Current Medication List Current Medications: Active Medications Acetaminophen (Tylenol -) 650 mg PO Q6H PRN PRN Reason: Fever Amlodipine Besylate (Norvasc -) 10 mg PO DAILY [facility] Last Admin: 12/06/17 10:53 Dose: 10 mg Collagenase (Santyl -) 1 applic TP DAILY [facility]; Protocol Last Admin: 12/05/17 15:58 Dose: 1 applic Escitalopram Oxalate (Lexapro -) 10 mg PO DAILY [facility] Last Admin: 12/06/17 10:53 Dose: 10 mg Heparin Sodium (Porcine) (Heparin -) 5,000 unit SQ TID [facility] Last Admin: 12/06/17 06:18 Dose: 5,000 unit Hydralazine HCl (Apresoline -) 10 mg PO BID [facility] Last Admin: 12/06/17 10:53 Dose: 10 mg Ampicillin Sodium/Sulbactam (Sodium 1.5 gm/ Sodium Chloride) 100 mls @ 200 mls/ hr IVPB Q12H [facility] Last Admin: 12/06/17 06:20 Dose: 200 mls/hr Levothyroxine Sodium (Synthroid -) 125 mcg PO DAILY@0700 [facility] Last Admin: 12/06/17 06:20 Dose: 125 mcg Lorazepam (Ativan Injection -) 0.5 mg IVPUSH ONCE ONE Stop: 12/03/17 18:43 Pantoprazole Sodium (Protonix -) 40 mg PO DAILY [facility] Last Admin: 12/06/17 10:53 Dose: 40 mg - Objective Vital Signs: Vital Signs Temperature 98 F 12/06/17 09:03 Pulse Rate 63 12/06/17 09:03 Respiratory Rate 18 12/06/17 09:03 Blood Pressure 130/58 L 12/06/17 09:03 O2 Sat by Pulse Oximetry (%) 99 12/05/17 21:00 Constitutional: Yes: Calm Eyes: Yes: Conjunctiva Clear HENT: Yes: Atraumatic Cardiovascular: Yes: S1, S2 Respiratory: Yes: CTA Bilaterally Gastrointestinal: Yes: Soft Genitourinary: Yes: Incontinence Musculoskeletal: Yes: Muscle Weakness Edema: No Neurological: Yes: Confusion Labs: CBC, BMP 12/06/17 07:10 12/06/17 07:10 INR, PTT INR 0.92 (0.83-1.09) 11/26/17 06:45 Problem List - Problems (1) Renal failure (ARF), acute on chronic Code(s): N17.9 - ACUTE KIDNEY FAILURE, UNSPECIFIED; N18.9 - CHRONIC KIDNEY DISEASE, UNSPECIFIED Assessment/Plan Current Medications Generic Name Dose Route Start Last Admin Trade Name Freq PRN Reason Stop Dose Admin Acetaminophen 650 mg 11/25/17 18:16 Tylenol - PO Q6H PRN Fever Amlodipine Besylate 10 mg 11/26/17 10:00 12/06/17 10:53 Norvasc - PO 10 mg DAILY [facility] Administration Collagenase 1 applic 11/27/17 11:15 12/05/17 15:58 Santyl - TP 1 applic DAILY [facility] Administration Protocol Escitalopram Oxalate 10 mg 11/26/17 10:00 12/06/17 10:53 Lexapro - PO 10 mg DAILY [facility] Administration Heparin Sodium (Porcine) 5,000 unit 11/25/17 22:00 12/06/17 06:18 Heparin - SQ 5,000 unit TID [facility]A Administration Hydralazine HCl 10 mg 11/25/17 22:00 12/06/17 10:53 Apresoline - PO 10 mg BID [facility]A Administration Ampicillin Sodium/Sulbactam 100 mls @ 200 mls/hr 12/03/17 18:30 12/06/17 06: 20 Sodium 1.5 gm/ Sodium Chloride IVPB 200 mls/hr Q12H [facility]A Administration Levothyroxine Sodium 125 mcg 12/02/17 07:00 12/06/17 06:20 Synthroid - PO 125 mcg DAILY@0700 [facility] Administration Lorazepam 0.5 mg 12/03/17 18:42 Ativan Injection - IVPUSH 12/03/17 18:43 ONCE ONE Pantoprazole Sodium 40 mg 12/03/17 10:00 12/06/17 10:53 Protonix - PO 40 mg DAILY [facility] Administration Impression 1. CKD 2. right renal cyst 3. toe ulcer 4. hypothryoid 5. dementia 6. parkinsons 7. HTN 8. hyponatremia Plan - likely pt has progression of CKD - repeat labs in am - will need renal workup as outpt - count wound care - avoid nsaids - pt unable to give ua, send ua and prt to household refrigerator mechanic ratio if possible Dr John
[2017-12-06] MEDS ORDERED: LORazepam 2 MG/ML SDV VIAL IVPUSH ONE (18:15)
[2017-12-06] MEDS: COLLAGENASE CLOSTRIDIUM HIST. 30 GRAMS TUBE TP SCH (21:56)
[2017-12-07] MEDS ORDERED: SODIUM CHLORIDE 100 ML IVPB ONE ×2 (05:51→17:54)
[2017-12-07] MEDS ORDERED: AMPICILLIN NA/SULBACTAM NA 1.5 GM VIAL ONE ×2 (05:51→17:54)
[2017-12-07] MEDS: HEPARIN NA (PORCINE) 5,000 UNITS/ML 1ML VIAL SQ SCH ×3 (06:12→21:38)
[2017-12-07] MEDS: AMPICILLIN NA/SULBACTAM NA 1.5 GM in SODIUM CHLORIDE 100 ML IVPB SCH ×2 (06:12→18:26)
[2017-12-07] MEDS: LEVOTHYROXINE NA 125 MCG TABLET (FP) PO SCH (06:13)
[2017-12-07] MEDS: ESCITALOPRAM OXALATE 10 MG TABLET (FP) PO SCH (09:54)
[2017-12-07] MEDS: PANTOPRAZOLE 40 MG TABLET (FP) PO SCH (09:54)
[2017-12-07] MEDS: hydrALAZINE HCL 10 MG TABLET PO SCH ×2 (09:54→21:38)
[2017-12-07] MEDS: amLODIPine BESYLATE 10 MG TABLET (FP) PO SCH (09:54)
--- NOTE | 2017-12-07 13:29 | PN ---
Progress Note, Physician History of Present Illness: Pt seen and examined at bedside. She is awake and alert. She denies shortness of breath. - Current Medication List Current Medications: Active Medications Acetaminophen (Tylenol -) 650 mg PO Q6H PRN PRN Reason: Fever Amlodipine Besylate (Norvasc -) 10 mg PO DAILY [facility] Last Admin: 12/07/17 09:54 Dose: 10 mg Collagenase (Santyl -) 1 applic TP DAILY [facility]; Protocol Last Admin: 12/06/17 21:56 Dose: 1 applic Escitalopram Oxalate (Lexapro -) 10 mg PO DAILY [facility] Last Admin: 12/07/17 09:54 Dose: 10 mg Heparin Sodium (Porcine) (Heparin -) 5,000 unit SQ TID [facility] Last Admin: 12/07/17 06:12 Dose: 5,000 unit Hydralazine HCl (Apresoline -) 10 mg PO BID [facility] Last Admin: 12/07/17 09:54 Dose: 10 mg Ampicillin Sodium/Sulbactam (Sodium 1.5 gm/ Sodium Chloride) 100 mls @ 200 mls/ hr IVPB Q12H [facility] Last Admin: 12/07/17 06:12 Dose: 200 mls/hr Levothyroxine Sodium (Synthroid -) 125 mcg PO DAILY@0700 [facility] Last Admin: 12/07/17 06:13 Dose: 125 mcg Pantoprazole Sodium (Protonix -) 40 mg PO DAILY [facility] Last Admin: 12/07/17 09:54 Dose: 40 mg - Objective Vital Signs: Vital Signs Temperature 97.6 F 12/07/17 09:46 Pulse Rate 60 12/07/17 09:46 Respiratory Rate 20 12/07/17 09:46 Blood Pressure 155/65 12/07/17 09:46 O2 Sat by Pulse Oximetry (%) 99 12/06/17 21:00 Constitutional: Yes: Calm Eyes: Yes: Conjunctiva Clear HENT: Yes: Atraumatic Cardiovascular: Yes: S1, S2 Respiratory: Yes: CTA Bilaterally Gastrointestinal: Yes: Soft Genitourinary: Yes: Incontinence Musculoskeletal: Yes: Muscle Weakness Edema: No Neurological: Yes: Confusion Labs: CBC, BMP 12/06/17 07:10 12/06/17 07:10 INR, PTT INR 0.92 (0.83-1.09) 11/26/17 06:45 Problem List - Problems (1) Renal failure (ARF), acute on chronic Code(s): N17.9 - ACUTE KIDNEY FAILURE, UNSPECIFIED; N18.9 - CHRONIC KIDNEY DISEASE, UNSPECIFIED Assessment/Plan Current Medications Generic Name Dose Route Start Last Admin Trade Name Freq PRN Reason Stop Dose Admin Acetaminophen 650 mg 11/25/17 18:16 Tylenol - PO Q6H PRN Fever Amlodipine Besylate 10 mg 11/26/17 10:00 12/07/17 09:54 Norvasc - PO 10 mg DAILY [facility] Administration Collagenase 1 applic 11/27/17 11:15 12/06/17 21:56 Santyl - TP 1 applic DAILY [facility] Administration Protocol Escitalopram Oxalate 10 mg 11/26/17 10:00 12/07/17 09:54 Lexapro - PO 10 mg DAILY [facility] Administration Heparin Sodium (Porcine) 5,000 unit 11/25/17 22:00 12/07/17 06:12 Heparin - SQ 5,000 unit TID [facility] Administration Hydralazine HCl 10 mg 11/25/17 22:00 12/07/17 09:54 Apresoline - PO 10 mg BID [facility] Administration Ampicillin Sodium/Sulbactam 100 mls @ 200 mls/hr 12/03/17 18:30 12/07/17 06: 12 Sodium 1.5 gm/ Sodium Chloride IVPB 200 mls/hr Q12H [facility] Administration Levothyroxine Sodium 125 mcg 12/02/17 07:00 12/07/17 06:13 Synthroid - PO 125 mcg DAILY@0700 [facility] Administration Pantoprazole Sodium 40 mg 12/03/17 10:00 12/07/17 09:54 Protonix - PO 40 mg DAILY [facility] Administration Impression 1. CKD 2. right renal cyst 3. toe ulcer 4. hypothryoid 5. dementia 6. parkinsons 7. HTN 8. 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
--- NOTE | 2017-12-07 15:43 | PN ---
Progress Note (short form) - Note Progress Note: Fuv left foot. +demarcating 4th toe left, +improved cellulitis, +edema, multiple species noted on wound cultures, mri result not available needs to be redone. om 4th toe? wound 4th toe left gout? Awaiting MRI results today. Santyl dressing change 4th toe left. will follow. Discussed with vascular. Problem List - Problems (1) Toe infection Code(s): L08.9 - LOCAL INFECTION OF THE SKIN AND SUBCUTANEOUS TISSUE, UNSP
--- NOTE | 2017-12-07 17:21 | PN ---
Progress Note (short form) - Note Progress Note: alert no complaints Vital Signs Period Temp Pulse Resp BP Sys/Rolon Pulse Ox Last 24 Hr 97.6 F-98.6 F 51-68 19-24 148-157/51-65 99 cor-rrr lungs clear abd soft,nt ext dressing intact- doesn't want me to remove pathology c/w gout CBC, BMP 12/06/17 07:10 12/06/17 07:10 Microbiology 11/27/17 06:10 Blood - Peripheral Venous Blood Culture - Final Bacillus Species, Not Antracis 11/27/17 06:30 Blood - Peripheral Venous Blood Culture - Final NO GROWTH AFTER 5 DAYS INCUBATION 11/25/17 17:56 Foot - Left Gram Stain - Final 11/25/17 17:56 Foot - Left Wound Culture - Final Proteus Mirabilis Staphylococcus Aureus Enterococcus Faecalis 11/25/17 12:23 Blood - Peripheral Venous Blood Culture - Final NO GROWTH AFTER 5 DAYS INCUBATION 11/25/17 12:15 Blood - Peripheral Venous Blood Culture - Final Staphylococcus Haemolyticus a/p infected tophaceous gout check uric acid consider rheumatology evaluation continue unasyn improved Problem List - Problems (1) Bacteremia Code(s): R78.81 - BACTEREMIA (2) Toe infection Code(s): L08.9 - LOCAL INFECTION OF THE SKIN AND SUBCUTANEOUS TISSUE, UNSP (3) Renal failure (ARF), acute on chronic Code(s): N17.9 - ACUTE KIDNEY FAILURE, UNSPECIFIED; N18.9 - CHRONIC KIDNEY DISEASE, UNSPECIFIED (4) Anemia Code(s): D64.9 - ANEMIA, UNSPECIFIED
[2017-12-07] MEDS: COLLAGENASE CLOSTRIDIUM HIST. 30 GRAMS TUBE TP SCH (21:38)
[2017-12-08] MEDS ORDERED: SODIUM CHLORIDE 100 ML IVPB ONE ×2 (05:32→17:35)
[2017-12-08] MEDS ORDERED: AMPICILLIN NA/SULBACTAM NA 1.5 GM VIAL ONE ×2 (05:32→17:35)
[2017-12-08] MEDS: HEPARIN NA (PORCINE) 5,000 UNITS/ML 1ML VIAL SQ SCH ×3 (06:04→21:35)
[2017-12-08] MEDS: LEVOTHYROXINE NA 125 MCG TABLET (FP) PO SCH (06:04)
[2017-12-08] MEDS: AMPICILLIN NA/SULBACTAM NA 1.5 GM in SODIUM CHLORIDE 100 ML IVPB SCH ×2 (06:05→17:37)
[2017-12-08 08:59] LABS: ANION GAP 10 MMOL/L (8-16); BLOOD UREA NITROGEN 55 mg/dL (7-18); CALCIUM 8.8 mg/dL (8.5-10.1); CHLORIDE 103 mmol/L (98-107); CO2 21 mmol/L (21-32); CREATININE 2.4 mg/dL (0.55-1.3); GLUCOSE,RANDOM 63 mg/dL (74-106); POTASSIUM 4.4 mmol/L (3.5-5.1); SODIUM 134 mmol/L (136-145); URIC ACID 7.9 mg/dL (2.6-7.2)
[2017-12-08] MEDS: amLODIPine BESYLATE 10 MG TABLET (FP) PO SCH (10:38)
[2017-12-08] MEDS: hydrALAZINE HCL 10 MG TABLET PO SCH ×2 (10:38→21:35)
[2017-12-08] MEDS: PANTOPRAZOLE 40 MG TABLET (FP) PO SCH (10:38)
[2017-12-08] MEDS: ESCITALOPRAM OXALATE 10 MG TABLET (FP) PO SCH (10:38)
[2017-12-08] MEDS: COLLAGENASE CLOSTRIDIUM HIST. 30 GRAMS TUBE TP SCH (10:38)
--- NOTE | 2017-12-08 13:13 | PN ---
Progress Note (short form) - Note Progress Note: resting comfortably Vital Signs Period Temp Pulse Resp BP Sys/Rolon Pulse Ox Last 24 Hr 97.5 F-98.1 F 51-58 20-24 136-153/51-64 100 cor-rrr lungs clear abd soft,nt ext minimal erythema of the toe CBC, BMP 12/06/17 07:10 12/08/17 06:30 Microbiology 11/27/17 06:10 Blood - Peripheral Venous Blood Culture - Final Bacillus Species, Not Antracis 11/27/17 06:30 Blood - Peripheral Venous Blood Culture - Final NO GROWTH AFTER 5 DAYS INCUBATION 11/25/17 17:56 Foot - Left Gram Stain - Final 11/25/17 17:56 Foot - Left Wound Culture - Final Proteus Mirabilis Staphylococcus Aureus Enterococcus Faecalis 11/25/17 12:23 Blood - Peripheral Venous Blood Culture - Final NO GROWTH AFTER 5 DAYS INCUBATION 11/25/17 12:15 Blood - Peripheral Venous Blood Culture - Final Staphylococcus Haemolyticus Laboratory Tests 11/27/17 11/27/17 12/08/17 06:15 06:15 06:30 ESR 81 H Uric Acid 7.9 H C-Reactive Protein 2.3 H pathology c/w gout a/p cellulitis infected tophaceous gout podiatry f/u consider rheumatology evaluation continue unasyn- improving blood culture isolates are contaminants Problem List - Problems (1) Bacteremia Code(s): R78.81 - BACTEREMIA (2) Toe infection Code(s): L08.9 - LOCAL INFECTION OF THE SKIN AND SUBCUTANEOUS TISSUE, UNSP (3) Renal failure (ARF), acute on chronic Code(s): N17.9 - ACUTE KIDNEY FAILURE, UNSPECIFIED; N18.9 - CHRONIC KIDNEY DISEASE, UNSPECIFIED (4) Anemia Code(s): D64.9 - ANEMIA, UNSPECIFIED
--- NOTE | 2017-12-08 17:20 | PN ---
Progress Note, Physician Chief Complaint: Cellulitis Left 4th toe History of Present Illness: NAD alert but confused MRI LLE pending Seen by ID, vascular and Podiatry On IV abx Wound culture: Microbiology 11/27/17 06:10 Blood - Peripheral Venous Blood Culture - Final Bacillus Species, Not Antracis 11/27/17 06:30 Blood - Peripheral Venous Blood Culture - Final NO GROWTH AFTER 5 DAYS INCUBATION 11/25/17 17:56 Foot - Left Gram Stain - Final 11/25/17 17:56 Foot - Left Wound Culture - Final Proteus Mirabilis Staphylococcus Aureus Enterococcus Faecalis 11/25/17 12:23 Blood - Peripheral Venous Blood Culture - Final NO GROWTH AFTER 5 DAYS INCUBATION 11/25/17 12:15 Blood - Peripheral Venous Blood Culture - Final Staphylococcus Haemolyticus Guaiac positive, seen by GI, offered EGD and colonoscopy- refused it for now Gradual drop in H/H previous history of JOSE RAUL, repeat Iron % normal - Current Medication List Current Medications: Active Medications Acetaminophen (Tylenol -) 650 mg PO Q6H PRN PRN Reason: Fever Last Admin: 12/07/17 22:03 Dose: 650 mg Amlodipine Besylate (Norvasc -) 10 mg PO DAILY [facility] Last Admin: 12/08/17 10:38 Dose: 10 mg Collagenase (Santyl -) 1 applic TP DAILY [facility]; Protocol Last Admin: 12/08/17 10:38 Dose: 1 applic Escitalopram Oxalate (Lexapro -) 10 mg PO DAILY [facility] Last Admin: 12/08/17 10:38 Dose: 10 mg Heparin Sodium (Porcine) (Heparin -) 5,000 unit SQ TID [facility] Last Admin: 12/08/17 13:30 Dose: Not Given Hydralazine HCl (Apresoline -) 10 mg PO BID [facility] Last Admin: 12/08/17 10:38 Dose: 10 mg Ampicillin Sodium/Sulbactam (Sodium 1.5 gm/ Sodium Chloride) 100 mls @ 200 mls/ hr IVPB Q12H [facility] Last Admin: 12/08/17 06:05 Dose: 200 mls/hr Levothyroxine Sodium (Synthroid -) 125 mcg PO DAILY@0700 [facility] Last Admin: 12/08/17 06:04 Dose: 125 mcg Pantoprazole Sodium (Protonix -) 40 mg PO DAILY [facility] Last Admin: 12/08/17 10:38 Dose: 40 mg - Objective Vital Signs: Vital Signs Temperature 98.4 F 12/08/17 14:59 Pulse Rate 65 12/08/17 14:59 Respiratory Rate 22 H 12/08/17 14:59 Blood Pressure 147/64 12/08/17 14:59 O2 Sat by Pulse Oximetry (%) 100 12/07/17 21:00 Constitutional: Yes: Well Nourished, No Distress, Calm Cardiovascular: Yes: Regular Rate and Rhythm Respiratory: Yes: Regular Gastrointestinal: Yes: Normal Bowel Sounds, Soft Musculoskeletal: Yes: Muscle Weakness Neurological: Yes: Alert, Pre-Existing Deficit Psychiatric: Yes: Alert Labs: CBC, BMP 12/06/17 07:10 12/08/17 06:30 INR, PTT INR 0.92 (0.83-1.09) 11/26/17 06:45 Problem List - Problems (1) Cellulitis of fourth toe of left foot Assessment/Plan: -IV abx -ID on board -MRI LLE pending -afebrile -also seen by podiatry and vascular surgery -cultures: Microbiology 11/27/17 06:10 Blood - Peripheral Venous Blood Culture - Final Bacillus Species, Not Antracis 11/27/17 06:30 Blood - Peripheral Venous Blood Culture - Final NO GROWTH AFTER 5 DAYS INCUBATION 11/25/17 17:56 Foot - Left Gram Stain - Final 11/25/17 17:56 Foot - Left Wound Culture - Final Proteus Mirabilis Staphylococcus Aureus Enterococcus Faecalis 11/25/17 12:23 Blood - Peripheral Venous Blood Culture - Final NO GROWTH AFTER 5 DAYS INCUBATION 11/25/17 12:15 Blood - Peripheral Venous Blood Culture - Final Staphylococcus Haemolyticus Code(s): L03.032 - CELLULITIS OF LEFT TOE (2) Anemia Assessment/Plan: -gradual drop in H/H -received 1 unit prbc this admission -no over bleeding -transfuse if Hg <7.0 -check b12 and folate -Heparin SQ changed to BID Code(s): D64.9 - ANEMIA, UNSPECIFIED (3) Bacteremia Assessment/Plan: -IV abx -ID on board -MRI LLE pending -afebrile -also seen by podiatry and vascular surgery -cultures: Microbiology 11/27/17 06:10 Blood - Peripheral Venous Blood Culture - Final Bacillus Species, Not Antracis 11/27/17 06:30 Blood - Peripheral Venous Blood Culture - Final NO GROWTH AFTER 5 DAYS INCUBATION 11/25/17 17:56 Foot - Left Gram Stain - Final 11/25/17 17:56 Foot - Left Wound Culture - Final Proteus Mirabilis Staphylococcus Aureus Enterococcus Faecalis 11/25/17 12:23 Blood - Peripheral Venous Blood Culture - Final NO GROWTH AFTER 5 DAYS INCUBATION 11/25/17 12:15 Blood - Peripheral Venous Blood Culture - Final Staphylococcus Haemolyticus Code(s): R78.81 - BACTEREMIA (4) Renal failure (ARF), acute on chronic Assessment/Plan: -renal/bladder scan shows large post void residual urine -UA/UC -Bernard -start tamsulosin 0.4 mg po daily Code(s): N17.9 - ACUTE KIDNEY FAILURE, UNSPECIFIED; N18.9 - CHRONIC KIDNEY DISEASE, UNSPECIFIED Assessment/Plan see problem list did poorly with physical therapy
[2017-12-08] MEDS: TAMSULOSIN HCL 0.4 MG CAP PO SCH (18:38)
[2017-12-09] MEDS ORDERED: AMPICILLIN NA/SULBACTAM NA 1.5 GM VIAL ONE ×2 (06:41→17:17)
[2017-12-09] MEDS ORDERED: SODIUM CHLORIDE 100 ML IVPB ONE ×2 (06:41→17:17)
[2017-12-09] MEDS: AMPICILLIN NA/SULBACTAM NA 1.5 GM in SODIUM CHLORIDE 100 ML IVPB SCH ×2 (06:43→17:36)
[2017-12-09] MEDS: LEVOTHYROXINE NA 125 MCG TABLET (FP) PO SCH (06:44)
[2017-12-09 07:11] LABS: BASO % 2.3 % (0-2.0); EOS % 4.5 % (0-4.5); HEMATOCRIT 24.1 % (32.4-45.2); HEMOGLOBIN 7.6 GM/dL (10.7-15.3); LYMPH % 14.9 % (8-40); MCH 25.8 pg (25.7-33.7); MCHC 31.4 g/dl (32.0-36.0); MEAN CELL VOLUME 82.3 fl (80-96); MEAN PLT VOLUME 7.5 fl (7.5-11.1); MONO % 8.3 % (3.8-10.2); PLATELET COUNT 347 K/MM3 (134-434); RBC 2.93 M/mm3 (3.60-5.2); RDW 17.9 % (11.6-15.6); WHITE BLOOD COUNT 5.4 K/mm3 (4.0-10.0)
[2017-12-09 07:32] LABS: ALBUMIN 2.7 g/dl (3.4-5.0); ALK PHOS 84 U/L (45-117); ANION GAP 11 MMOL/L (8-16); BILIRUBIN,TOTAL 0.2 mg/dL (0.2-1); BLOOD UREA NITROGEN 56 mg/dL (7-18); CHLORIDE 102 mmol/L (98-107); CO2 22 mmol/L (21-32); CREATININE 2.5 mg/dL (0.55-1.3); GLUCOSE,RANDOM 74 mg/dL (74-106); POTASSIUM 4.7 mmol/L (3.5-5.1); SGOT/AST 18 U/L (15-37); SGPT/ALT 12 U/L (13-61); SODIUM 135 mmol/L (136-145); TOT PROT 6.8 g/dl (6.4-8.2)
[2017-12-09] MEDS ORDERED: PT OWN MED DRAWER 7, Y5N ONE (09:43)
[2017-12-09] MEDS: PANTOPRAZOLE 40 MG TABLET (FP) PO SCH (10:04)
[2017-12-09] MEDS: ESCITALOPRAM OXALATE 10 MG TABLET (FP) PO SCH (10:04)
[2017-12-09] MEDS: amLODIPine BESYLATE 10 MG TABLET (FP) PO SCH (10:04)
[2017-12-09] MEDS: HEPARIN NA (PORCINE) 5,000 UNITS/ML 1ML VIAL SQ SCH ×2 (10:04→21:48)
[2017-12-09] MEDS: hydrALAZINE HCL 10 MG TABLET PO SCH ×2 (10:04→21:48)
[2017-12-09] MEDS: TAMSULOSIN HCL 0.4 MG CAP PO SCH (10:04)
--- NOTE | 2017-12-09 10:26 | PN ---
Progress Note, Physician Chief Complaint: patient refused funes cath- had attempted it previously as well bladder scan done showed 20cc urine bun/cr stabl - Current Medication List Current Medications: Active Medications Acetaminophen (Tylenol -) 650 mg PO Q6H PRN PRN Reason: Fever Last Admin: 12/07/17 22:03 Dose: 650 mg Amlodipine Besylate (Norvasc -) 10 mg PO DAILY [facility] Last Admin: 12/09/17 10:04 Dose: 10 mg Collagenase (Santyl -) 1 applic TP DAILY [facility]; Protocol Last Admin: 12/08/17 10:38 Dose: 1 applic Escitalopram Oxalate (Lexapro -) 10 mg PO DAILY [facility] Last Admin: 12/09/17 10:04 Dose: 10 mg Heparin Sodium (Porcine) (Heparin -) 5,000 unit SQ BID [facility] Last Admin: 12/09/17 10:04 Dose: 5,000 unit Hydralazine HCl (Apresoline -) 10 mg PO BID [facility] Last Admin: 12/09/17 10:04 Dose: 10 mg Ampicillin Sodium/Sulbactam (Sodium 1.5 gm/ Sodium Chloride) 100 mls @ 200 mls/ hr IVPB Q12H [facility] Last Admin: 12/09/17 06:43 Dose: 200 mls/hr Levothyroxine Sodium (Synthroid -) 125 mcg PO DAILY@0700 [facility] Last Admin: 12/09/17 06:44 Dose: 125 mcg Pantoprazole Sodium (Protonix -) 40 mg PO DAILY [facility] Last Admin: 12/09/17 10:04 Dose: 40 mg Tamsulosin HCl (Flomax -) 0.4 mg PO DAILY@0830 [facility] Last Admin: 12/09/17 10:04 Dose: 0.4 mg - Objective Vital Signs: Vital Signs Temperature 97.8 F 12/09/17 09:57 Pulse Rate 58 L 12/09/17 09:57 Respiratory Rate 18 12/09/17 09:57 Blood Pressure 123/71 12/09/17 09:57 O2 Sat by Pulse Oximetry (%) 100 12/08/17 21:00 Constitutional: Yes: Calm, Thin Cardiovascular: Yes: Regular Rate and Rhythm, S1, S2 Respiratory: Yes: CTA Bilaterally Gastrointestinal: Yes: Normal Bowel Sounds, Soft Edema: No Wound/Incision: Yes: Other (dressing opened swelling and erythema improved) Labs: CBC, BMP 12/09/17 06:15 12/09/17 06:15 INR, PTT INR 0.92 (0.83-1.09) 11/26/17 06:45 Problem List - Problems (1) HTN (hypertension) Assessment/Plan: hydralazine and norvasc Code(s): I10 - ESSENTIAL (PRIMARY) HYPERTENSION (2) Toe infection Assessment/Plan: infected toe- pathology consistent with gout Microbiology 11/25/17 17:56 Foot - Left Gram Stain - Final 11/25/17 17:56 Foot - Left Wound Culture - Preliminary Proteus Mirabilis Staphylococcus Aureus Group D Strep Or Entero Coccus on iv unasyn pathology toe drainage - consisted with gout- rheum eval podiatry on board Code(s): L08.9 - LOCAL INFECTION OF THE SKIN AND SUBCUTANEOUS TISSUE, UNSP (3) Anemia Assessment/Plan: iron panel noted anemia of chronic disease GI eval noted patient will think about EGD- doesnot want it at this time tranfuse if < 7 trend h/h- improved Code(s): D64.9 - ANEMIA, UNSPECIFIED (4) Shortness of breath Assessment/Plan: improved after iv lasix Code(s): R06.02 - SHORTNESS OF BREATH (5) Hypothyroid Assessment/Plan: on synthroid tsh normal Code(s): E03.9 - HYPOTHYROIDISM, UNSPECIFIED (6) Renal failure (ARF), acute on chronic Assessment/Plan: creatinine been stable since admission patient refuse funes cath again no able to get urine studies renal sono noted repeat bladder scan today to look at post void residual volume Code(s): N17.9 - ACUTE KIDNEY FAILURE, UNSPECIFIED; N18.9 - CHRONIC KIDNEY DISEASE, UNSPECIFIED
[2017-12-09 11:28] LABS: URIC ACID 7.8 mg/dL (2.6-7.2)
--- NOTE | 2017-12-09 13:11 | PN ---
Progress Note (short form) - Note Progress Note: Fuv left foot. +improved cellulitis, +edema, mri not redone om 4th toe? wound 4th toe left gout? continue ivabx as per id. Apply Santyl. Follow up in wound care. Will follow till dc. Problem List - Problems (1) Toe infection Code(s): L08.9 - LOCAL INFECTION OF THE SKIN AND SUBCUTANEOUS TISSUE, UNSP
[2017-12-09] MEDS: COLLAGENASE CLOSTRIDIUM HIST. 30 GRAMS TUBE TP SCH (15:02)
--- NOTE | 2017-12-09 16:54 | PN ---
Progress Note, Physician History of Present Illness: Pt seen and examined. She remains confused. She is still refusing to give urine or straight cath. - Current Medication List Current Medications: Active Medications Acetaminophen (Tylenol -) 650 mg PO Q6H PRN PRN Reason: Fever Last Admin: 12/07/17 22:03 Dose: 650 mg Amlodipine Besylate (Norvasc -) 10 mg PO DAILY [facility] Last Admin: 12/09/17 10:04 Dose: 10 mg Collagenase (Santyl -) 1 applic TP DAILY [facility]; Protocol Last Admin: 12/09/17 15:02 Dose: 1 applic Escitalopram Oxalate (Lexapro -) 10 mg PO DAILY [facility] Last Admin: 12/09/17 10:04 Dose: 10 mg Heparin Sodium (Porcine) (Heparin -) 5,000 unit SQ BID [facility] Last Admin: 12/09/17 10:04 Dose: 5,000 unit Hydralazine HCl (Apresoline -) 10 mg PO BID [facility] Last Admin: 12/09/17 10:04 Dose: 10 mg Ampicillin Sodium/Sulbactam (Sodium 1.5 gm/ Sodium Chloride) 100 mls @ 200 mls/ hr IVPB Q12H [facility] Last Admin: 12/09/17 06:43 Dose: 200 mls/hr Levothyroxine Sodium (Synthroid -) 125 mcg PO DAILY@0700 [facility] Last Admin: 12/09/17 06:44 Dose: 125 mcg Pantoprazole Sodium (Protonix -) 40 mg PO DAILY [facility] Last Admin: 12/09/17 10:04 Dose: 40 mg Tamsulosin HCl (Flomax -) 0.4 mg PO DAILY@0830 [facility] Last Admin: 12/09/17 10:04 Dose: 0.4 mg - Objective Vital Signs: Vital Signs Temperature 98.9 F 12/09/17 14:38 Pulse Rate 68 12/09/17 14:38 Respiratory Rate 22 H 12/09/17 14:38 Blood Pressure 143/65 12/09/17 14:38 O2 Sat by Pulse Oximetry (%) 100 12/08/17 21:00 Constitutional: Yes: Calm Eyes: Yes: Conjunctiva Clear HENT: Yes: Atraumatic Neck: Yes: Supple Cardiovascular: Yes: S1, S2 Respiratory: Yes: CTA Bilaterally Gastrointestinal: Yes: Soft Genitourinary: Yes: Incontinence Edema: No Wound/Incision: Yes: Dressing Dry and Intact Neurological: Yes: Confusion Labs: CBC, BMP 12/09/17 06:15 12/09/17 06:15 INR, PTT INR 0.92 (0.83-1.09) 11/26/17 06:45 Problem List - Problems (1) Renal failure (ARF), acute on chronic Code(s): N17.9 - ACUTE KIDNEY FAILURE, UNSPECIFIED; N18.9 - CHRONIC KIDNEY DISEASE, UNSPECIFIED Assessment/Plan Current Medications Generic Name Dose Route Start Last Admin Trade Name Freq PRN Reason Stop Dose Admin Acetaminophen 650 mg 11/25/17 18:16 12/07/17 22:03 Tylenol - PO 650 mg Q6H PRN Administration Fever Amlodipine Besylate 10 mg 11/26/17 10:00 12/09/17 10:04 Norvasc - PO 10 mg DAILY [facility] Administration Collagenase 1 applic 11/27/17 11:15 12/09/17 15:02 Santyl - TP 1 applic DAILY [facility] Administration Protocol Escitalopram Oxalate 10 mg 11/26/17 10:00 12/09/17 10:04 Lexapro - PO 10 mg DAILY [facility] Administration Heparin Sodium (Porcine) 5,000 unit 12/08/17 22:00 12/09/17 10:04 Heparin - SQ 5,000 unit BID [facility] Administration Hydralazine HCl 10 mg 11/25/17 22:00 12/09/17 10:04 Apresoline - PO 10 mg BID [facility] Administration Ampicillin Sodium/Sulbactam 100 mls @ 200 mls/hr 12/03/17 18:30 12/09/17 06: 43 Sodium 1.5 gm/ Sodium Chloride IVPB 200 mls/hr Q12H [facility] Administration Levothyroxine Sodium 125 mcg 12/02/17 07:00 12/09/17 06:44 Synthroid - PO 125 mcg DAILY@0700 [facility] Administration Pantoprazole Sodium 40 mg 12/03/17 10:00 12/09/17 10:04 Protonix - PO 40 mg DAILY [facility] Administration Tamsulosin HCl 0.4 mg 12/08/17 17:33 12/09/17 10:04 Flomax - PO 0.4 mg DAILY@0830 [facility] Administration Impression 1. CKD 2. right renal cyst 3. toe ulcer 4. hypothryoid 5. dementia 6. parkinsons 7. HTN 8. 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
[2017-12-10] MEDS ORDERED: AMPICILLIN NA/SULBACTAM NA 1.5 GM VIAL ONE ×2 (04:33→17:04)
[2017-12-10] MEDS ORDERED: SODIUM CHLORIDE 100 ML IVPB ONE ×2 (04:34→17:04)
[2017-12-10] MEDS: AMPICILLIN NA/SULBACTAM NA 1.5 GM in SODIUM CHLORIDE 100 ML IVPB SCH ×2 (06:21→17:58)
[2017-12-10] MEDS: LEVOTHYROXINE NA 125 MCG TABLET (FP) PO SCH (06:39)
[2017-12-10 07:09] LABS: BASO % 2.7 % (0-2.0); EOS % 4.5 % (0-4.5); HEMATOCRIT 22.7 % (32.4-45.2); HEMOGLOBIN 7.2 GM/dL (10.7-15.3); LYMPH % 19.3 % (8-40); MCH 26.1 pg (25.7-33.7); MCHC 31.7 g/dl (32.0-36.0); MEAN CELL VOLUME 82.2 fl (80-96); MEAN PLT VOLUME 7.2 fl (7.5-11.1); MONO % 10.2 % (3.8-10.2); NEUT % 63.3 % (42.8-82.8); PLATELET COUNT 325 K/MM3 (134-434); RBC 2.76 M/mm3 (3.60-5.2); RDW 17.7 % (11.6-15.6)
[2017-12-10 08:07] LABS: ALBUMIN 2.5 g/dl (3.4-5.0); ALK PHOS 77 U/L (45-117); ANION GAP 11 MMOL/L (8-16); BILIRUBIN,TOTAL 0.3 mg/dL (0.2-1); BLOOD UREA NITROGEN 62 mg/dL (7-18); CALCIUM 8.9 mg/dL (8.5-10.1); CHLORIDE 104 mmol/L (98-107); CO2 22 mmol/L (21-32); CREATININE 2.6 mg/dL (0.55-1.3); GLUCOSE,RANDOM 71 mg/dL (74-106); POTASSIUM 4.6 mmol/L (3.5-5.1); SGOT/AST 18 U/L (15-37); SGPT/ALT 10 U/L (13-61); SODIUM 136 mmol/L (136-145); TOT PROT 6.6 g/dl (6.4-8.2)
--- NOTE | 2017-12-10 10:27 | PN ---
Progress Note (short form) - Note Progress Note: Fuv left foot. Patient not very well oriented. +improved cellulitis, +improved edema, mri not redone, +improved discoloration, om 4th toe? wound 4th toe left gout? continue ivabx as per id. Apply Santyl. Follow up in wound care. Will follow till dc. Problem List - Problems (1) Toe infection Code(s): L08.9 - LOCAL INFECTION OF THE SKIN AND SUBCUTANEOUS TISSUE, UNSP
[2017-12-10] MEDS: COLLAGENASE CLOSTRIDIUM HIST. 30 GRAMS TUBE TP SCH (10:37)
[2017-12-10] MEDS: HEPARIN NA (PORCINE) 5,000 UNITS/ML 1ML VIAL SQ SCH ×2 (10:37→21:50)
[2017-12-10] MEDS: TAMSULOSIN HCL 0.4 MG CAP PO SCH (10:37)
[2017-12-10] MEDS: PANTOPRAZOLE 40 MG TABLET (FP) PO SCH (10:37)
[2017-12-10] MEDS: hydrALAZINE HCL 10 MG TABLET PO SCH ×2 (10:37→21:50)
[2017-12-10] MEDS: amLODIPine BESYLATE 10 MG TABLET (FP) PO SCH (10:37)
[2017-12-10] MEDS: ESCITALOPRAM OXALATE 10 MG TABLET (FP) PO SCH (10:37)
--- NOTE | 2017-12-10 11:12 | PN ---
Progress Note, Physician Chief Complaint: patient despite ativan not able to get MRI she says she cannot lie still , keeps moving her leg- 2 attempts have been made cannot get bone scan given CKD on iv abx - Current Medication List Current Medications: Active Medications Acetaminophen (Tylenol -) 650 mg PO Q6H PRN PRN Reason: Fever Last Admin: 12/07/17 22:03 Dose: 650 mg Amlodipine Besylate (Norvasc -) 10 mg PO DAILY [facility] Last Admin: 12/10/17 10:37 Dose: 10 mg Collagenase (Santyl -) 1 applic TP DAILY [facility]; Protocol Last Admin: 12/10/17 10:37 Dose: 1 applic Escitalopram Oxalate (Lexapro -) 10 mg PO DAILY [facility] Last Admin: 12/10/17 10:37 Dose: 10 mg Heparin Sodium (Porcine) (Heparin -) 5,000 unit SQ BID [facility] Last Admin: 12/10/17 10:37 Dose: 5,000 unit Hydralazine HCl (Apresoline -) 10 mg PO BID [facility] Last Admin: 12/10/17 10:37 Dose: 10 mg Ampicillin Sodium/Sulbactam (Sodium 1.5 gm/ Sodium Chloride) 100 mls @ 200 mls/ hr IVPB Q12H [facility] Last Admin: 12/10/17 06:21 Dose: 200 mls/hr Levothyroxine Sodium (Synthroid -) 125 mcg PO DAILY@0700 [facility] Last Admin: 12/10/17 06:39 Dose: 125 mcg Pantoprazole Sodium (Protonix -) 40 mg PO DAILY [facility] Last Admin: 12/10/17 10:37 Dose: 40 mg Tamsulosin HCl (Flomax -) 0.4 mg PO DAILY@0830 [facility] Last Admin: 12/10/17 10:37 Dose: 0.4 mg - Objective Vital Signs: Vital Signs Temperature 97.9 F 12/10/17 06:00 Pulse Rate 60 12/10/17 06:00 Respiratory Rate 20 12/10/17 10:40 Blood Pressure 160/62 12/10/17 06:00 O2 Sat by Pulse Oximetry (%) 97 12/10/17 10:40 Constitutional: Yes: Calm Cardiovascular: Yes: Regular Rate and Rhythm, S1, S2 Respiratory: Yes: CTA Bilaterally Gastrointestinal: Yes: Normal Bowel Sounds, Soft Extremities: Yes: Other (fourth toe erythema much better no drainage) Neurological: Yes: Alert Labs: CBC, BMP 12/10/17 06:30 12/10/17 06:30 INR, PTT INR 0.92 (0.83-1.09) 11/26/17 06:45 Problem List - Problems (1) Toe infection Assessment/Plan: infected toe- pathology consistent with gout Microbiology 11/25/17 17:56 Foot - Left Gram Stain - Final 11/25/17 17:56 Foot - Left Wound Culture - Preliminary Proteus Mirabilis Staphylococcus Aureus Group D Strep Or Entero Coccus on iv unasyn pathology toe drainage - consisted with gout- uric acid noted rheum eval-pending podiatry on board Code(s): L08.9 - LOCAL INFECTION OF THE SKIN AND SUBCUTANEOUS TISSUE, UNSP (2) HTN (hypertension) Assessment/Plan: hydralazine and norvasc Code(s): I10 - ESSENTIAL (PRIMARY) HYPERTENSION (3) Anemia Assessment/Plan: iron panel noted anemia of chronic disease b12 level is normal GI eval noted patient will think about EGD- doesnot want it at this time tranfuse if < 7 h/h trendign down will need transfusion if h/h drops < 7 Code(s): D64.9 - ANEMIA, UNSPECIFIED (4) Hypothyroid Assessment/Plan: on synthroid tsh normal Code(s): E03.9 - HYPOTHYROIDISM, UNSPECIFIED (5) Renal failure (ARF), acute on chronic Assessment/Plan: creatinine been stable since admission patient refuse funes cath again no able to get urine studies renal sono noted repeat bladder scan today to look at post void residual volume- done flomax Code(s): N17.9 - ACUTE KIDNEY FAILURE, UNSPECIFIED; N18.9 - CHRONIC KIDNEY DISEASE, UNSPECIFIED
--- NOTE | 2017-12-10 15:35 | CONSULT ---
Consult Consult Specialty:: Rheumatology - History of Present Illness History of Present Illness: 85 year old female prison resident, with history for Parkinson's disease , dementia, HTN, HLD, CKD and hypothryoidism, admitted with pain in the left 4 th toe. Histological evaluation of drainage of the toe by pathology () was reported with birefringent needles shaped crystals consistent with monosodium urate. HPI Gout. The patient is a poor historian. She denies episode of acute arthritis in the past and reports a 1 year history of discomfort in the left 4th toe. Since admission the patient has not have fever. Cultures in the hospital from the toe secretion and blood were considered contaminants. Creatinine was 2.6, eGFR 17.94 and uric acid 7.8. ESR 116. X ray of the left foot revealed erosions in all MTP's in particular in the 1st. The patietn was prescribed Allopurinol 100mg/d to start tomorrow. - Past Medical History [employer]ING [employer]: Yes: Dementia, Parkinson's Cardio/Vascular: Yes: HTN, Hyperlipdemia Renal/: Yes: Renal Inusuff Rheumatology: Yes: Other (arthritis) Endocrine: Yes: Hypothyroidism - Past Surgical History Past Surgical History: Yes: Appendectomy, Tonsillectomy - Alcohol/Substance Use Hx Alcohol Use: No - Smoking History Smoking history: Former smoker Have you smoked in the past 12 months: No Aproximately how many cigarettes per day: 5 If you are a former smoker, when did you quit?: 5 years ago - Social History Usual Living Arrangement: Care Home ADL: Support Services History of Recent Travel: No Home Medications - Allergies Allergies/Adverse Reactions: Allergies Allergy/AdvReac Type Severity Reaction Status Date / Time No Known Allergies Allergy Verified 11/25/17 10:47 - Home Medications Home Medications: Ambulatory Orders Amlodipine Besylate [Norvasc -] 10 mg PO DAILY tablet 06/09/17 Docusate Sodium [Colace -] 100 mg PO TID capsule 06/09/17 Ferrous Sulfate [Feosol] 325 mg PO TIDCM ud 06/09/17 Levothyroxine [Synthroid -] 100 mcg PO DAILY@0700 tablet 06/09/17 Pantoprazole Sodium [Protonix -] 40 mg PO DAILY tablet.ec 06/09/17 hydrALAZINE HCL [Apresoline -] 10 mg PO BID #0 tablet 06/09/17 Family Disease History - Family Disease History Family Disease History: Other: Father ( 70's: pancreatic Ca), Mother (: 70's: MD), Brother (None), Sister (None), Daughter (3 daughters, 2 , ? causes) Other Family History: No family history of colorectal cancer Review of Systems - Review of Systems Constitutional: reports: Malaise Eyes: reports: No Symptoms HENT: reports: No Symptoms Neck: reports: No Symptoms Cardiovascular: reports: No Symptoms Respiratory: reports: No Symptoms Gastrointestinal: reports: No Symptoms Musculoskeletal: reports: Other (See HPI) Physical Exam Vital Signs: Vital Signs Temperature 98.7 F 12/10/17 14:24 Pulse Rate 62 12/10/17 14:24 Respiratory Rate 22 H 12/10/17 14:24 Blood Pressure 149/60 12/10/17 14:24 O2 Sat by Pulse Oximetry (%) 97 12/10/17 10:40 Constitutional: Yes: Mild Distress Eyes: Yes: WNL HENT: Yes: WNL Neck: Yes: WNL Cardiovascular: Yes: WNL Respiratory: Yes: WNL Gastrointestinal: Yes: WNL Renal/: Yes: WNL Musculoskeletal: Yes: Other (Right shoulder was swollen. Large tohi over the right olecranon bursa. In the left hand there wqas a tophi in the wrist, All MCPs and PIPs were swllen and she had tophi over the 2nd, 3rd sand 5th DIPs. In the right hand wrist with tophi. Swelling of the 5th MCP and 2nd, 3rd and 5th PIPs. with rophi inthe 2nd PIP.) Labs: CBC, BMP 12/10/17 06:30 12/10/17 06:30 Laboratory Tests 12/06/17 12/09/17 12/10/17 07:10 06:15 06:30 ESR 116 H Uric Acid 7.8 H Total Bilirubin 0.3 AST 18 ALT 10 L Alkaline Phosphatase 77 Total Protein 6.6 Albumin 2.5 L Problem List - Problems (1) Gout Assessment/Plan: Chronic and acute tophaceous, erosive gouty arthritis. The drainage from the left 4th toe is related to a tophi. Cultures were considered contaminants. Chronic kidney disease. Plan: The patient was prescribed Allopurinol. Based on her eGFR I suggest to switch to Uloric. She requires Prednisone when the medication is introduced to prevent flare-ups, can be tapered down and discontinued after 2 weeks. Code(s): M10.9 - GOUT, UNSPECIFIED
--- NOTE | 2017-12-10 15:49 | PN ---
Progress Note, Physician History of Present Illness: Pt seen and examined at bedside. She is confused. - Current Medication List Current Medications: Active Medications Acetaminophen (Tylenol -) 650 mg PO Q6H PRN PRN Reason: Fever Last Admin: 12/07/17 22:03 Dose: 650 mg Amlodipine Besylate (Norvasc -) 10 mg PO DAILY [facility] Last Admin: 12/10/17 10:37 Dose: 10 mg Collagenase (Santyl -) 1 applic TP DAILY [facility]; Protocol Last Admin: 12/10/17 10:37 Dose: 1 applic Escitalopram Oxalate (Lexapro -) 10 mg PO DAILY [facility] Last Admin: 12/10/17 10:37 Dose: 10 mg Heparin Sodium (Porcine) (Heparin -) 5,000 unit SQ BID [facility] Last Admin: 12/10/17 10:37 Dose: 5,000 unit Hydralazine HCl (Apresoline -) 10 mg PO BID [facility] Last Admin: 12/10/17 10:37 Dose: 10 mg Ampicillin Sodium/Sulbactam (Sodium 1.5 gm/ Sodium Chloride) 100 mls @ 200 mls/ hr IVPB Q12H [facility] Last Admin: 12/10/17 06:21 Dose: 200 mls/hr Levothyroxine Sodium (Synthroid -) 125 mcg PO DAILY@0700 [facility] Last Admin: 12/10/17 06:39 Dose: 125 mcg Pantoprazole Sodium (Protonix -) 40 mg PO DAILY [facility] Last Admin: 12/10/17 10:37 Dose: 40 mg Tamsulosin HCl (Flomax -) 0.4 mg PO DAILY@0830 [facility] Last Admin: 12/10/17 10:37 Dose: 0.4 mg - Objective Vital Signs: Vital Signs Temperature 98.7 F 12/10/17 14:24 Pulse Rate 62 12/10/17 14:24 Respiratory Rate 22 H 12/10/17 14:24 Blood Pressure 149/60 12/10/17 14:24 O2 Sat by Pulse Oximetry (%) 97 12/10/17 10:40 Constitutional: Yes: Calm Eyes: Yes: Conjunctiva Clear HENT: Yes: Atraumatic Cardiovascular: Yes: S1, S2 Respiratory: Yes: CTA Bilaterally Gastrointestinal: Yes: Soft Genitourinary: Yes: Incontinence Musculoskeletal: Yes: Joint Swelling Edema: No Neurological: Yes: Confusion Labs: CBC, BMP 12/10/17 06:30 12/10/17 06:30 INR, PTT INR 0.92 (0.83-1.09) 11/26/17 06:45 Problem List - Problems (1) Renal failure (ARF), acute on chronic Code(s): N17.9 - ACUTE KIDNEY FAILURE, UNSPECIFIED; N18.9 - CHRONIC KIDNEY DISEASE, UNSPECIFIED Assessment/Plan Current Medications Generic Name Dose Route Start Last Admin Trade Name Freq PRN Reason Stop Dose Admin Acetaminophen 650 mg 11/25/17 18:16 12/07/17 22:03 Tylenol - PO 650 mg Q6H PRN Administration Fever Amlodipine Besylate 10 mg 11/26/17 10:00 12/10/17 10:37 Norvasc - PO 10 mg DAILY [facility] Administration Collagenase 1 applic 11/27/17 11:15 12/10/17 10:37 Santyl - TP 1 applic DAILY [facility] Administration Protocol Escitalopram Oxalate 10 mg 11/26/17 10:00 12/10/17 10:37 Lexapro - PO 10 mg DAILY [facility] Administration Febuxostat 40 mg 12/10/17 16:00 Uloric - PO DAILY [facility] Heparin Sodium (Porcine) 5,000 unit 12/08/17 22:00 12/10/17 10:37 Heparin - SQ 5,000 unit BID [facility] Administration Hydralazine HCl 10 mg 11/25/17 22:00 12/10/17 10:37 Apresoline - PO 10 mg BID [facility] Administration Ampicillin Sodium/Sulbactam 100 mls @ 200 mls/hr 12/03/17 18:30 12/10/17 06: 21 Sodium 1.5 gm/ Sodium Chloride IVPB 200 mls/hr Q12H [facility] Administration Levothyroxine Sodium 125 mcg 12/02/17 07:00 12/10/17 06:39 Synthroid - PO 125 mcg DAILY@0700 [facility] Administration Pantoprazole Sodium 40 mg 12/03/17 10:00 12/10/17 10:37 Protonix - PO 40 mg DAILY [facility] Administration Tamsulosin HCl 0.4 mg 12/08/17 17:33 12/10/17 10:37 Flomax - PO 0.4 mg DAILY@0830 [facility] Administration Impression 1. CKD 2. right renal cyst 3. toe ulcer 4. hypothryoid 5. dementia 6. parkinsons 7. HTN 8. hyponatremia 9. gout Plan - pt started on ulorich - straight cath for ua - check stefano - monitor renal function - outpt workup and follow up - count wound care - discussed with attending Dr John
[2017-12-10] MEDS ORDERED: PT OWN MED DRAWER 7, Y5N ONE ×3 (17:12→21:29)
[2017-12-10] MEDS: FEBUXOSTAT 40 MG TAB PO SCH (21:50)
[2017-12-11] MEDS ORDERED: AMPICILLIN NA/SULBACTAM NA 1.5 GM VIAL ONE ×2 (05:19→17:20)
[2017-12-11] MEDS ORDERED: SODIUM CHLORIDE 100 ML IVPB ONE ×2 (05:20→17:20)
[2017-12-11] MEDS: LEVOTHYROXINE NA 125 MCG TABLET (FP) PO SCH (06:14)
[2017-12-11] MEDS: AMPICILLIN NA/SULBACTAM NA 1.5 GM in SODIUM CHLORIDE 100 ML IVPB SCH ×2 (06:14→19:32)
[2017-12-11 08:31] LABS: BASO % 1.4 % (0-2.0); EOS % 4.5 % (0-4.5); HEMATOCRIT 22.3 % (32.4-45.2); HEMOGLOBIN 7.1 GM/dL (10.7-15.3); LYMPH % 19.5 % (8-40); MCH 26.2 pg (25.7-33.7); MCHC 31.8 g/dl (32.0-36.0); MEAN CELL VOLUME 82.3 fl (80-96); MEAN PLT VOLUME 7.9 fl (7.5-11.1); MONO % 9.5 % (3.8-10.2); NEUT % 65.1 % (42.8-82.8); PLATELET COUNT 375 K/MM3 (134-434); RBC 2.71 M/mm3 (3.60-5.2); RDW 17.2 % (11.6-15.6); WHITE BLOOD COUNT 4.9 K/mm3 (4.0-10.0)
[2017-12-11] MEDS: predniSONE 20 MG TABLET (UD) PO SCH ×2 (08:57→10:48)
[2017-12-11] MEDS: TAMSULOSIN HCL 0.4 MG CAP PO SCH (08:57)
[2017-12-11] MEDS ORDERED: PT OWN MED DRAWER 7, Y5N ONE (09:45)
[2017-12-11] MEDS ORDERED: ALLOPURINOL 100 MG TABLET (FP) PO SCH (10:00)
[2017-12-11 10:11] LABS: ALBUMIN 2.6 g/dl (3.4-5.0); ALK PHOS 75 U/L (45-117); ANION GAP 10 MMOL/L (8-16); BILIRUBIN,TOTAL 0.3 mg/dL (0.2-1); BLOOD UREA NITROGEN 60 mg/dL (7-18); CALCIUM 8.7 mg/dL (8.5-10.1); CHLORIDE 105 mmol/L (98-107); CO2 22 mmol/L (21-32); CREATININE 2.6 mg/dL (0.55-1.3); GLUCOSE,RANDOM 62 mg/dL (74-106); POTASSIUM 4.6 mmol/L (3.5-5.1); SGOT/AST 16 U/L (15-37); SGPT/ALT 12 U/L (13-61); SODIUM 137 mmol/L (136-145); TOT PROT 6.5 g/dl (6.4-8.2); URIC ACID 7.6 mg/dL (2.6-7.2)
[2017-12-11] MEDS: hydrALAZINE HCL 10 MG TABLET PO SCH ×2 (10:48→21:52)
[2017-12-11] MEDS: HEPARIN NA (PORCINE) 5,000 UNITS/ML 1ML VIAL SQ SCH ×2 (10:49→21:52)
[2017-12-11] MEDS: amLODIPine BESYLATE 10 MG TABLET (FP) PO SCH (10:49)
[2017-12-11] MEDS: ESCITALOPRAM OXALATE 10 MG TABLET (FP) PO SCH (10:49)
[2017-12-11] MEDS: COLLAGENASE CLOSTRIDIUM HIST. 30 GRAMS TUBE TP SCH (10:50)
[2017-12-11] MEDS: PANTOPRAZOLE 40 MG TABLET (FP) PO SCH (10:50)
[2017-12-11] MEDS: FEBUXOSTAT 40 MG TAB PO SCH (10:50)
--- NOTE | 2017-12-11 11:10 | PN ---
Progress Note, Physician Chief Complaint: AWAKE ALERT EVENTS AND NOTES REVIEWED FEELS WEAK - Current Medication List Current Medications: Active Medications Acetaminophen (Tylenol -) 650 mg PO Q6H PRN PRN Reason: Fever Last Admin: 12/07/17 22:03 Dose: 650 mg Amlodipine Besylate (Norvasc -) 10 mg PO DAILY [facility] Last Admin: 12/11/17 10:49 Dose: 10 mg Collagenase (Santyl -) 1 applic TP DAILY [facility]; Protocol Last Admin: 12/11/17 10:50 Dose: 1 applic Escitalopram Oxalate (Lexapro -) 10 mg PO DAILY [facility] Last Admin: 12/11/17 10:49 Dose: 10 mg Febuxostat (Uloric -) 40 mg PO DAILY [facility] Last Admin: 12/11/17 10:50 Dose: 40 mg Heparin Sodium (Porcine) (Heparin -) 5,000 unit SQ BID [facility] Last Admin: 12/11/17 10:49 Dose: 5,000 unit Hydralazine HCl (Apresoline -) 10 mg PO BID [facility] Last Admin: 12/11/17 10:48 Dose: 10 mg Ampicillin Sodium/Sulbactam (Sodium 1.5 gm/ Sodium Chloride) 100 mls @ 200 mls/ hr IVPB Q12H [facility] Last Admin: 12/11/17 06:14 Dose: 200 mls/hr Levothyroxine Sodium (Synthroid -) 125 mcg PO DAILY@0700 [facility] Last Admin: 12/11/17 06:14 Dose: 125 mcg Pantoprazole Sodium (Protonix -) 40 mg PO DAILY [facility] Last Admin: 12/11/17 10:50 Dose: 40 mg Prednisone (Deltasone -) 20 mg PO DAILY [facility] Last Admin: 12/11/17 10:48 Dose: 20 mg Tamsulosin HCl (Flomax -) 0.4 mg PO DAILY@0830 [facility] Last Admin: 12/11/17 08:57 Dose: 0.4 mg - Objective Vital Signs: Vital Signs Temperature 97.9 F 12/11/17 05:27 Pulse Rate 58 L 12/11/17 05:27 Respiratory Rate 20 12/11/17 05:27 Blood Pressure 156/59 L 12/11/17 05:27 O2 Sat by Pulse Oximetry (%) 99 12/10/17 21:00 Constitutional: Yes: Mild Distress Eyes: Yes: WNL HENT: Yes: WNL Neck: Yes: WNL Cardiovascular: Yes: Regular Rate and Rhythm Respiratory: Yes: WNL Gastrointestinal: Yes: WNL Genitourinary: Yes: WNL, Incontinence Musculoskeletal: Yes: Muscle Weakness Extremities: Yes: Deformity, Other Edema: Yes Edema: LLE: 1+, RLE: 1+ Peripheral Pulses WNL: Yes Integumentary: Yes: Pressure Ulcer, Rash, Venous Stasis Changes, Other Wound/Incision: Yes: Dressing Dry and Intact Neurological: Yes: Pre-Existing Deficit ...Motor Strength: LLE, RLE Psychiatric: Yes: WNL Labs: CBC, BMP 12/11/17 06:30 12/11/17 06:30 INR, PTT INR 0.92 (0.83-1.09) 11/26/17 06:45 Problem List - Problems (1) Anemia Code(s): D64.9 - ANEMIA, UNSPECIFIED (2) Bacteremia Code(s): R78.81 - BACTEREMIA (3) HTN (hypertension) Code(s): I10 - ESSENTIAL (PRIMARY) HYPERTENSION (4) Prerenal renal failure Code(s): N19 - UNSPECIFIED KIDNEY FAILURE (5) Renal failure (ARF), acute on chronic Code(s): N17.9 - ACUTE KIDNEY FAILURE, UNSPECIFIED; N18.9 - CHRONIC KIDNEY DISEASE, UNSPECIFIED (6) Skin ulcer of fourth toe of left foot Code(s): L97.529 - NON-PRESSURE CHRONIC ULCER OTH PRT LEFT FOOT W UNSP SEVERITY (7) Skin ulcer of fourth toe of left foot with necrosis of bone Code(s): L97.524 - NON-PRS CHRONIC ULCER OTH PRT LEFT FOOT W NECROSIS OF BONE (8) Toe infection Code(s): L08.9 - LOCAL INFECTION OF THE SKIN AND SUBCUTANEOUS TISSUE, UNSP Assessment/Plan GOUT WORKUP TRANSFUSE 2 UNITS [facility] WOUND CARE REFUSING MRI EVEN WITH [facility] CAN DO OUTPATIENT DC PLANNING
--- NOTE | 2017-12-11 19:55 | PN ---
Progress Note (short form) - Note Progress Note: covering dr nunez Problems 1. CKD 2. right renal cyst 3. toe ulcer 4. hypothryoid 5. dementia 6. parkinsons 7. HTN 8. hyponatremia 9. gout Current Medications Acetaminophen (Tylenol -) 650 mg PO Q6H PRN PRN Reason: Fever Last Admin: 12/07/17 22:03 Dose: 650 mg Amlodipine Besylate (Norvasc -) 10 mg PO DAILY [facility] Last Admin: 12/11/17 10:49 Dose: 10 mg Collagenase (Santyl -) 1 applic TP DAILY [facility]; Protocol Last Admin: 12/11/17 10:50 Dose: 1 applic Escitalopram Oxalate (Lexapro -) 10 mg PO DAILY [facility] Last Admin: 12/11/17 10:49 Dose: 10 mg Febuxostat (Uloric -) 40 mg PO DAILY [facility] Last Admin: 12/11/17 10:50 Dose: 40 mg Heparin Sodium (Porcine) (Heparin -) 5,000 unit SQ BID [facility] Last Admin: 12/11/17 10:49 Dose: 5,000 unit Hydralazine HCl (Apresoline -) 10 mg PO BID [facility] Last Admin: 12/11/17 10:48 Dose: 10 mg Ampicillin Sodium/Sulbactam (Sodium 1.5 gm/ Sodium Chloride) 100 mls @ 200 mls/ hr IVPB Q12H [facility] Last Admin: 12/11/17 19:32 Dose: 200 mls/hr Levothyroxine Sodium (Synthroid -) 125 mcg PO DAILY@0700 [facility] Last Admin: 12/11/17 06:14 Dose: 125 mcg Pantoprazole Sodium (Protonix -) 40 mg PO DAILY [facility] Last Admin: 12/11/17 10:50 Dose: 40 mg Prednisone (Deltasone -) 20 mg PO DAILY [facility] Last Admin: 12/11/17 10:48 Dose: 20 mg Tamsulosin HCl (Flomax -) 0.4 mg PO DAILY@0830 [facility] Last Admin: 12/11/17 08:57 Dose: 0.4 mg Last Vital Signs Temp Pulse Resp BP Pulse Ox 98.6 F 68 20 128/77 100 12/11/17 18:46 12/11/17 18:46 12/11/17 18:46 12/11/17 18:46 12/11/17 09:00 CBC, BMP 12/11/17 06:30 12/11/17 06:30 IMP- stable renal function Plan - pt started on uloric - straight cath for ua - check stefano - monitor renal function - outpt workup and follow up - count wound care - discussed with attending
[2017-12-12] MEDS ORDERED: AMPICILLIN NA/SULBACTAM NA 1.5 GM VIAL ONE ×2 (05:03→17:10)
[2017-12-12] MEDS ORDERED: SODIUM CHLORIDE 100 ML IVPB ONE ×2 (05:03→17:10)
[2017-12-12] MEDS: AMPICILLIN NA/SULBACTAM NA 1.5 GM in SODIUM CHLORIDE 100 ML IVPB SCH ×2 (05:50→17:53)
[2017-12-12] MEDS: LEVOTHYROXINE NA 125 MCG TABLET (FP) PO SCH (06:05)
[2017-12-12 07:23] LABS: HEMATOCRIT 34.5 % (32.4-45.2); HEMOGLOBIN 11.2 GM/dL (10.7-15.3); MCH 27.1 pg (25.7-33.7); MCHC 32.3 g/dl (32.0-36.0); MEAN CELL VOLUME 83.8 fl (80-96); MEAN PLT VOLUME 7.7 fl (7.5-11.1); PLATELET COUNT 396 K/MM3 (134-434); RBC 4.12 M/mm3 (3.60-5.2); RDW 16.1 % (11.6-15.6)
[2017-12-12 08:03] LABS: ANION GAP 11 MMOL/L (8-16); BLOOD UREA NITROGEN 77 mg/dL (7-18); CALCIUM 9.5 mg/dL (8.5-10.1); CHLORIDE 103 mmol/L (98-107); CO2 20 mmol/L (21-32); CREATININE 2.6 mg/dL (0.55-1.3); GLUCOSE,RANDOM 128 mg/dL (74-106); POTASSIUM 5.1 mmol/L (3.5-5.1); SODIUM 135 mmol/L (136-145)
[2017-12-12] MEDS: hydrALAZINE HCL 10 MG TABLET PO SCH ×2 (09:27→22:00)
[2017-12-12] MEDS: TAMSULOSIN HCL 0.4 MG CAP PO SCH (09:27)
[2017-12-12] MEDS: PANTOPRAZOLE 40 MG TABLET (FP) PO SCH (09:27)
[2017-12-12] MEDS: predniSONE 20 MG TABLET (UD) PO SCH (09:27)
[2017-12-12] MEDS: ESCITALOPRAM OXALATE 10 MG TABLET (FP) PO SCH (09:27)
[2017-12-12] MEDS: amLODIPine BESYLATE 10 MG TABLET (FP) PO SCH (09:27)
[2017-12-12] MEDS: HEPARIN NA (PORCINE) 5,000 UNITS/ML 1ML VIAL SQ SCH ×2 (09:28→22:00)
[2017-12-12] MEDS: FEBUXOSTAT 40 MG TAB PO SCH (09:41)
[2017-12-12] MEDS: COLLAGENASE CLOSTRIDIUM HIST. 30 GRAMS TUBE TP SCH (09:41)
--- NOTE | 2017-12-12 10:07 | DS ---
Physical Examination Vital Signs: Vital Signs Temperature 98 F 12/12/17 09:00 Pulse Rate 69 12/12/17 09:00 Respiratory Rate 18 12/12/17 09:00 Blood Pressure 148/68 12/12/17 09:00 O2 Sat by Pulse Oximetry (%) 100 12/11/17 21:00 Constitutional: Yes: No Distress Cardiovascular: Yes: WNL Respiratory: Yes: WNL Gastrointestinal: Yes: WNL Musculoskeletal: Yes: Muscle Weakness Extremities: Yes: Deformity Peripheral Pulses WNL: Yes Integumentary: Yes: Pressure Ulcer Wound/Incision: Yes: Open to air (TOE TOPHI WITH ULCERATION) ...Motor Strength: LLE, RLE Psychiatric: Yes: Other Labs: CBC, BMP 12/12/17 06:00 12/12/17 06:00 Discharge Summary Reason For Visit: SKIN INFECTION LFT 4TH TOE Current Active Problems Anemia (Acute) Bacteremia (Acute) Cellulitis of fourth toe of left foot (Acute) Gout (Acute) HTN (hypertension) (Acute) Hypothyroid (Acute) Prerenal renal failure (Acute) Renal failure (ARF), acute on chronic (Acute) Shortness of breath (Acute) Skin ulcer of fourth toe of left foot (Acute) Skin ulcer of fourth toe of left foot with necrosis of bone (Acute) Toe infection (Acute) Procedures: Principal: VASCUALR AND PODIATRY WORKUP Hospital Course: PATIENT WITH PAD, AND TOPHI FROM SEVERE GOUTY ARTHRITIS, WILL NEED ULORIC AND PREDNISONE THERAPY, WOUND CARE AND [facility]ATRY FOLLOW [facility] Condition: Fair - Instructions Diet, Activity, Other Instructions: PODIATRY AND WOUND CARE FOLLOW UP PREDNISONE TAPER, LEAVE AT 2.5MG DAILY AFTER TAPER ULORIC THERAPY--- DO NOT SUBSTITUTE WITH ALLOPURINOL BECAUSE OF RENAL FUNCTION CBC AND CMP WEEKLY TRANSFUSED [facility] - Home Medications Comprehensive Discharge Medication List: Ambulatory Orders Amlodipine Besylate [Norvasc -] 10 mg PO DAILY tablet 06/09/17 Docusate Sodium [Colace -] 100 mg PO TID capsule 06/09/17 Ferrous Sulfate [Feosol] 325 mg PO TIDCM ud 06/09/17 Levothyroxine [Synthroid -] 100 mcg PO DAILY@0700 tablet 06/09/17 Pantoprazole Sodium [Protonix -] 40 mg PO DAILY tablet.ec 06/09/17 hydrALAZINE HCL [Apresoline -] 10 mg PO BID #0 tablet 06/09/17 Acetaminophen [Tylenol .Regular Strength -] 650 mg PO Q6H PRN tablet 12/12/17 Collagenase Clostridium Hist. [Santyl -] 1 applic TP DAILY tube 12/12/17 Escitalopram Oxalate [Lexapro -] 10 mg PO DAILY tablet 12/12/17 Febuxostat [Uloric -] 40 mg PO DAILY tab 12/12/17 Heparin - 5,000 unit SQ BID vial 12/12/17 Pantoprazole Sodium [Protonix -] 40 mg PO DAILY tablet.ec 12/12/17 Tamsulosin HCl [Flomax -] 0.4 mg PO DAILY@0830 cap.er.24h 12/12/17 predniSONE [Deltasone -] 20 mg PO DAILY tablet 12/12/17
--- NOTE | 2017-12-12 12:17 | PN ---
Progress Note (short form) - Note Progress Note: Fuv left foot. Patient not very well oriented. +improved cellulitis, +improved edema, mri not redone, +improved discoloration, om 4th toe? wound 4th toe left gout? continue ivabx as per id. Apply Santyl. Follow up in wound care. DC today or when home care in place. home with IVABX. Follow till dc. Problem List - Problems (1) Toe infection Code(s): L08.9 - LOCAL INFECTION OF THE SKIN AND SUBCUTANEOUS TISSUE, UNSP
--- NOTE | 2017-12-12 18:28 | PN ---
Progress Note (short form) - Note Progress Note: covering dr nunez Problems 1. CKD 2. right renal cyst 3. toe ulcer 4. hypothryoid 5. dementia 6. parkinsons 7. HTN 8. hyponatremia 9. gout Current Medications Acetaminophen (Tylenol -) 650 mg PO Q6H PRN PRN Reason: Fever Last Admin: 12/07/17 22:03 Dose: 650 mg Amlodipine Besylate (Norvasc -) 10 mg PO DAILY [facility] Last Admin: 12/12/17 09:27 Dose: 10 mg Collagenase (Santyl -) 1 applic TP DAILY [facility]; Protocol Last Admin: 12/12/17 09:41 Dose: 1 applic Escitalopram Oxalate (Lexapro -) 10 mg PO DAILY [facility] Last Admin: 12/12/17 09:27 Dose: 10 mg Febuxostat (Uloric -) 40 mg PO DAILY [facility] Last Admin: 12/12/17 09:41 Dose: 40 mg Heparin Sodium (Porcine) (Heparin -) 5,000 unit SQ BID [facility] Last Admin: 12/12/17 09:28 Dose: Not Given Hydralazine HCl (Apresoline -) 10 mg PO BID [facility] Last Admin: 12/12/17 09:27 Dose: 10 mg Ampicillin Sodium/Sulbactam (Sodium 1.5 gm/ Sodium Chloride) 100 mls @ 200 mls/ hr IVPB Q12H [facility] Last Admin: 12/12/17 17:53 Dose: 200 mls/hr Levothyroxine Sodium (Synthroid -) 125 mcg PO DAILY@0700 [facility] Last Admin: 12/12/17 06:05 Dose: 125 mcg Pantoprazole Sodium (Protonix -) 40 mg PO DAILY [facility] Last Admin: 12/12/17 09:27 Dose: 40 mg Prednisone (Deltasone -) 20 mg PO DAILY [facility] Last Admin: 12/12/17 09:27 Dose: 20 mg Tamsulosin HCl (Flomax -) 0.4 mg PO DAILY@0830 [facility] Last Admin: 12/12/17 09:27 Dose: 0.4 mg Last Vital Signs Temp Pulse Resp BP Pulse Ox 98.2 F 72 18 148/69 100 12/12/17 18:17 12/12/17 18:17 12/12/17 18:17 12/12/17 18:17 12/12/17 09:00 lungs clear heart reg abd soft IMP- stable renal function Plan - pt started on uloric - straight cath for ua - check stefano - monitor renal function - outpt workup and follow up - count wound care - discussed with attending
[2017-12-13] MEDS ORDERED: SODIUM CHLORIDE 100 ML IVPB ONE (05:13)
[2017-12-13] MEDS ORDERED: AMPICILLIN NA/SULBACTAM NA 1.5 GM VIAL ONE (05:13)
[2017-12-13] MEDS: AMPICILLIN NA/SULBACTAM NA 1.5 GM in SODIUM CHLORIDE 100 ML IVPB SCH ×2 (05:40→18:05)
[2017-12-13] MEDS: LEVOTHYROXINE NA 125 MCG TABLET (FP) PO SCH (06:12)
[2017-12-13] MEDS ORDERED: PT OWN MED DRAWER 7, Y5N ONE (10:28)
[2017-12-13] MEDS: predniSONE 20 MG TABLET (UD) PO SCH (10:29)
[2017-12-13] MEDS: amLODIPine BESYLATE 10 MG TABLET (FP) PO SCH (10:29)
[2017-12-13] MEDS: ESCITALOPRAM OXALATE 10 MG TABLET (FP) PO SCH (10:29)
[2017-12-13] MEDS: hydrALAZINE HCL 10 MG TABLET PO SCH (10:29)
[2017-12-13] MEDS: PANTOPRAZOLE 40 MG TABLET (FP) PO SCH (10:29)
[2017-12-13] MEDS: COLLAGENASE CLOSTRIDIUM HIST. 30 GRAMS TUBE TP SCH (10:30)
[2017-12-13] MEDS: TAMSULOSIN HCL 0.4 MG CAP PO SCH (10:30)
[2017-12-13] MEDS: HEPARIN NA (PORCINE) 5,000 UNITS/ML 1ML VIAL SQ SCH (10:30)
[2017-12-13] MEDS: FEBUXOSTAT 40 MG TAB PO SCH (10:30)
--- NOTE | 2017-12-13 11:35 | PN ---
Progress Note, Physician Chief Complaint: patient is awake alert in bed - Current Medication List Current Medications: Active Medications Acetaminophen (Tylenol -) 650 mg PO Q6H PRN PRN Reason: Fever Last Admin: 12/07/17 22:03 Dose: 650 mg Amlodipine Besylate (Norvasc -) 10 mg PO DAILY [facility] Last Admin: 12/13/17 10:29 Dose: 10 mg Collagenase (Santyl -) 1 applic TP DAILY [facility]; Protocol Last Admin: 12/13/17 10:30 Dose: 1 applic Escitalopram Oxalate (Lexapro -) 10 mg PO DAILY [facility] Last Admin: 12/13/17 10:29 Dose: 10 mg Febuxostat (Uloric -) 40 mg PO DAILY [facility] Last Admin: 12/13/17 10:30 Dose: 40 mg Heparin Sodium (Porcine) (Heparin -) 5,000 unit SQ BID [facility] Last Admin: 12/13/17 10:30 Dose: 5,000 unit Hydralazine HCl (Apresoline -) 10 mg PO BID [facility] Last Admin: 12/13/17 10:29 Dose: 10 mg Ampicillin Sodium/Sulbactam (Sodium 1.5 gm/ Sodium Chloride) 100 mls @ 200 mls/ hr IVPB Q12H [facility] Last Admin: 12/13/17 05:40 Dose: 200 mls/hr Levothyroxine Sodium (Synthroid -) 125 mcg PO DAILY@0700 [facility] Last Admin: 12/13/17 06:12 Dose: 125 mcg Pantoprazole Sodium (Protonix -) 40 mg PO DAILY [facility] Last Admin: 12/13/17 10:29 Dose: 40 mg Prednisone (Deltasone -) 20 mg PO DAILY [facility] Last Admin: 12/13/17 10:29 Dose: 20 mg Tamsulosin HCl (Flomax -) 0.4 mg PO DAILY@0830 [facility] Last Admin: 12/13/17 10:30 Dose: 0.4 mg - Objective Vital Signs: Vital Signs Temperature 98.4 F 12/13/17 00:00 Pulse Rate 63 12/13/17 00:00 Respiratory Rate 18 12/13/17 00:00 Blood Pressure 160/66 12/13/17 00:00 O2 Sat by Pulse Oximetry (%) 97 12/12/17 21:00 Constitutional: Yes: Calm Cardiovascular: Yes: Regular Rate and Rhythm, S1, S2 Respiratory: Yes: CTA Bilaterally Gastrointestinal: Yes: Normal Bowel Sounds, Soft Edema: No Wound/Incision: Yes: Dressing Dry and Intact Labs: CBC, BMP 12/12/17 06:00 12/12/17 06:00 INR, PTT INR 0.92 (0.83-1.09) 11/26/17 06:45 Problem List - Problems (1) Toe infection Assessment/Plan: infected toe- pathology consistent with gout- appreciate rheum eval- uloric started, stop allopurinol Microbiology 11/25/17 17:56 Foot - Left Gram Stain - Final 11/25/17 17:56 Foot - Left Wound Culture - Preliminary Proteus Mirabilis Staphylococcus Aureus Group D Strep Or Entero Coccus on iv unasyn change to po abx pathology toe drainage - consisted with gout- uric acid noted rheum eval-noted started on prednisone will need taper and stop after 2 weeks podiatry on board Code(s): L08.9 - LOCAL INFECTION OF THE SKIN AND SUBCUTANEOUS TISSUE, UNSP (2) HTN (hypertension) Assessment/Plan: hydralazine and norvasc Code(s): I10 - ESSENTIAL (PRIMARY) HYPERTENSION (3) Anemia Assessment/Plan: iron panel noted anemia of chronic disease b12 level is normal s/p prbc now h/h improved Code(s): D64.9 - ANEMIA, UNSPECIFIED (4) Hypothyroid Assessment/Plan: on synthroid tsh normal Code(s): E03.9 - HYPOTHYROIDISM, UNSPECIFIED (5) Renal failure (ARF), acute on chronic Assessment/Plan: creatinine been stable since admission patient refuse funes cath again no able to get urine studies renal sono noted repeat bladder scan today to look at post void residual volume- done flomax Code(s): N17.9 - ACUTE KIDNEY FAILURE, UNSPECIFIED; N18.9 - CHRONIC KIDNEY DISEASE, UNSPECIFIED Assessment/Plan dc to [facility] with prednisone taper and po abx
--- NOTE | 2017-12-13 11:50 | PN ---
Progress Note, Physician Chief Complaint: patient seen and examined no distress - Current Medication List Current Medications: Active Medications Acetaminophen (Tylenol -) 650 mg PO Q6H PRN PRN Reason: Fever Last Admin: 12/07/17 22:03 Dose: 650 mg Amlodipine Besylate (Norvasc -) 10 mg PO DAILY [facility] Last Admin: 12/13/17 10:29 Dose: 10 mg Collagenase (Santyl -) 1 applic TP DAILY [facility]; Protocol Last Admin: 12/13/17 10:30 Dose: 1 applic Escitalopram Oxalate (Lexapro -) 10 mg PO DAILY [facility] Last Admin: 12/13/17 10:29 Dose: 10 mg Febuxostat (Uloric -) 40 mg PO DAILY [facility] Last Admin: 12/13/17 10:30 Dose: 40 mg Heparin Sodium (Porcine) (Heparin -) 5,000 unit SQ BID [facility] Last Admin: 12/13/17 10:30 Dose: 5,000 unit Hydralazine HCl (Apresoline -) 10 mg PO BID [facility] Last Admin: 12/13/17 10:29 Dose: 10 mg Ampicillin Sodium/Sulbactam (Sodium 1.5 gm/ Sodium Chloride) 100 mls @ 200 mls/ hr IVPB Q12H [facility] Last Admin: 12/13/17 05:40 Dose: 200 mls/hr Levothyroxine Sodium (Synthroid -) 125 mcg PO DAILY@0700 [facility] Last Admin: 12/13/17 06:12 Dose: 125 mcg Pantoprazole Sodium (Protonix -) 40 mg PO DAILY [facility] Last Admin: 12/13/17 10:29 Dose: 40 mg Prednisone (Deltasone -) 20 mg PO DAILY [facility] Last Admin: 12/13/17 10:29 Dose: 20 mg Tamsulosin HCl (Flomax -) 0.4 mg PO DAILY@0830 [facility] Last Admin: 12/13/17 10:30 Dose: 0.4 mg - Objective Vital Signs: Vital Signs Temperature 98.4 F 12/13/17 00:00 Pulse Rate 63 12/13/17 00:00 Respiratory Rate 18 12/13/17 00:00 Blood Pressure 160/66 12/13/17 00:00 O2 Sat by Pulse Oximetry (%) 97 12/12/17 21:00 Constitutional: Yes: Calm Cardiovascular: Yes: Regular Rate and Rhythm, S1, S2 Respiratory: Yes: CTA Bilaterally Gastrointestinal: Yes: Normal Bowel Sounds, Soft Edema: No Wound/Incision: Yes: Excoriated Neurological: Yes: Alert, Oriented (to name) Labs: CBC, BMP 12/12/17 06:00 12/12/17 06:00 INR, PTT INR 0.92 (0.83-1.09) 11/26/17 06:45 Problem List - Problems (1) Toe infection Assessment/Plan: infected toe- pathology consistent with gout- appreciate rheum eval- uloric started, stop allopurinol Microbiology 11/25/17 17:56 Foot - Left Gram Stain - Final 11/25/17 17:56 Foot - Left Wound Culture - Preliminary Proteus Mirabilis Staphylococcus Aureus Group D Strep Or Entero Coccus on iv unasyn change to po abx pathology toe drainage - consisted with gout- uric acid noted rheum eval-noted started on prednisone will need taper and stop after 2 weeks podiatry on board Code(s): L08.9 - LOCAL INFECTION OF THE SKIN AND SUBCUTANEOUS TISSUE, UNSP (2) HTN (hypertension) Assessment/Plan: hydralazine and norvasc Code(s): I10 - ESSENTIAL (PRIMARY) HYPERTENSION (3) Anemia Assessment/Plan: iron panel noted anemia of chronic disease b12 level is normal s/p prbc now h/h improved Code(s): D64.9 - ANEMIA, UNSPECIFIED (4) Hypothyroid Code(s): E03.9 - HYPOTHYROIDISM, UNSPECIFIED (5) Renal failure (ARF), acute on chronic Code(s): N17.9 - ACUTE KIDNEY FAILURE, UNSPECIFIED; N18.9 - CHRONIC KIDNEY DISEASE, UNSPECIFIED
--- NOTE | 2017-12-13 15:24 | PN ---
Progress Note (short form) - Note Progress Note: resting comfortably Vital Signs Period Temp Pulse Resp BP Sys/Rolon Pulse Ox Last 24 Hr 98 F-99.2 F 63-72 18-18 148-164/64-69 97-97 cor-rrr lungs clear abd soft,nt ext minimal erythema, less drainage CBC, BMP 12/12/17 06:00 12/12/17 06:00 Microbiology 11/27/17 06:10 Blood - Peripheral Venous Blood Culture - Final Bacillus Species, Not Antracis 11/27/17 06:30 Blood - Peripheral Venous Blood Culture - Final NO GROWTH AFTER 5 DAYS INCUBATION 11/25/17 17:56 Foot - Left Gram Stain - Final 11/25/17 17:56 Foot - Left Wound Culture - Final Proteus Mirabilis Staphylococcus Aureus Enterococcus Faecalis 11/25/17 12:23 Blood - Peripheral Venous Blood Culture - Final NO GROWTH AFTER 5 DAYS INCUBATION 11/25/17 12:15 Blood - Peripheral Venous Blood Culture - Final Staphylococcus Haemolyticus a/p cellulitis--resolved infected tophaceous gout now on treatment for gout switch to po augmentin for another week rheumatology/podiatry f/u d/w dr Grewal blood culture isolates are contaminants Problem List - Problems (1) Bacteremia Code(s): R78.81 - BACTEREMIA (2) Toe infection Code(s): L08.9 - LOCAL INFECTION OF THE SKIN AND SUBCUTANEOUS TISSUE, UNSP (3) Renal failure (ARF), acute on chronic Code(s): N17.9 - ACUTE KIDNEY FAILURE, UNSPECIFIED; N18.9 - CHRONIC KIDNEY DISEASE, UNSPECIFIED (4) Anemia Code(s): D64.9 - ANEMIA, UNSPECIFIED
--- NOTE | 2017-12-13 15:57 | PN ---
Progress Note, Physician History of Present Illness: Pt seen and examined at bedside. She is awake and appears comfortable. She remains confused. - Current Medication List Current Medications: Active Medications Acetaminophen (Tylenol -) 650 mg PO Q6H PRN PRN Reason: Fever Last Admin: 12/07/17 22:03 Dose: 650 mg Amlodipine Besylate (Norvasc -) 10 mg PO DAILY [facility] Last Admin: 12/13/17 10:29 Dose: 10 mg Collagenase (Santyl -) 1 applic TP DAILY [facility]; Protocol Last Admin: 12/13/17 10:30 Dose: 1 applic Escitalopram Oxalate (Lexapro -) 10 mg PO DAILY [facility] Last Admin: 12/13/17 10:29 Dose: 10 mg Febuxostat (Uloric -) 40 mg PO DAILY [facility] Last Admin: 12/13/17 10:30 Dose: 40 mg Heparin Sodium (Porcine) (Heparin -) 5,000 unit SQ BID [facility] Last Admin: 12/13/17 10:30 Dose: 5,000 unit Hydralazine HCl (Apresoline -) 10 mg PO BID [facility] Last Admin: 12/13/17 10:29 Dose: 10 mg Ampicillin Sodium/Sulbactam (Sodium 1.5 gm/ Sodium Chloride) 100 mls @ 200 mls/ hr IVPB Q12H [facility] Last Admin: 12/13/17 05:40 Dose: 200 mls/hr Levothyroxine Sodium (Synthroid -) 125 mcg PO DAILY@0700 [facility] Last Admin: 12/13/17 06:12 Dose: 125 mcg Pantoprazole Sodium (Protonix -) 40 mg PO DAILY [facility] Last Admin: 12/13/17 10:29 Dose: 40 mg Prednisone (Deltasone -) 20 mg PO DAILY [facility] Last Admin: 12/13/17 10:29 Dose: 20 mg Tamsulosin HCl (Flomax -) 0.4 mg PO DAILY@0830 [facility] Last Admin: 12/13/17 10:30 Dose: 0.4 mg - Objective Vital Signs: Vital Signs Temperature 98.3 F 12/13/17 15:11 Pulse Rate 63 12/13/17 15:11 Respiratory Rate 22 H 12/13/17 15:11 Blood Pressure 162/71 12/13/17 15:11 O2 Sat by Pulse Oximetry (%) 97 12/13/17 09:00 Constitutional: Yes: Calm Eyes: Yes: Conjunctiva Clear HENT: Yes: Atraumatic Neck: Yes: Supple Cardiovascular: Yes: S1, S2 Respiratory: Yes: CTA Bilaterally Gastrointestinal: Yes: Soft Genitourinary: Yes: Incontinence Musculoskeletal: Yes: Joint Stiffness Edema: No Neurological: Yes: Confusion Labs: CBC, BMP 12/12/17 06:00 12/12/17 06:00 INR, PTT INR 0.92 (0.83-1.09) 11/26/17 06:45 Problem List - Problems (1) Renal failure (ARF), acute on chronic Code(s): N17.9 - ACUTE KIDNEY FAILURE, UNSPECIFIED; N18.9 - CHRONIC KIDNEY DISEASE, UNSPECIFIED Assessment/Plan Current Medications Generic Name Dose Route Start Last Admin Trade Name Freq PRN Reason Stop Dose Admin Acetaminophen 650 mg 11/25/17 18:16 12/07/17 22:03 Tylenol - PO 650 mg Q6H PRN Administration Fever Amlodipine Besylate 10 mg 11/26/17 10:00 12/13/17 10:29 Norvasc - PO 10 mg DAILY [facility] Administration Collagenase 1 applic 11/27/17 11:15 12/13/17 10:30 Santyl - TP 1 applic DAILY [facility] Administration Protocol Escitalopram Oxalate 10 mg 11/26/17 10:00 12/13/17 10:29 Lexapro - PO 10 mg DAILY [facility] Administration Febuxostat 40 mg 12/10/17 16:00 12/13/17 10:30 Uloric - PO 40 mg DAILY [facility] Administration Heparin Sodium (Porcine) 5,000 unit 12/08/17 22:00 12/13/17 10:30 Heparin - SQ 5,000 unit BID [facility] Administration Hydralazine HCl 10 mg 11/25/17 22:00 12/13/17 10:29 Apresoline - PO 10 mg BID [facility] Administration Ampicillin Sodium/Sulbactam 100 mls @ 200 mls/hr 12/03/17 18:30 12/13/17 05: 40 Sodium 1.5 gm/ Sodium Chloride IVPB 200 mls/hr Q12H [facility] Administration Levothyroxine Sodium 125 mcg 12/02/17 07:00 12/13/17 06:12 Synthroid - PO 125 mcg DAILY@0700 [facility] Administration Pantoprazole Sodium 40 mg 12/03/17 10:00 12/13/17 10:29 Protonix - PO 40 mg DAILY [facility] Administration Prednisone 20 mg 12/11/17 08:00 12/13/17 10:29 Deltasone - PO 20 mg DAILY [facility] Administration Tamsulosin HCl 0.4 mg 12/08/17 17:33 12/13/17 10:30 Flomax - PO 0.4 mg DAILY@0830 [facility] Administration Laboratory Tests 12/10/17 12:13 NELLIE Screen Pending Impression 1. CKD 2. right renal cyst 3. toe ulcer 4. hypothryoid 5. dementia 6. parkinsons 7. HTN 8. hyponatremia 9. gout Plan - unable to check ua - unable to reach family - can see as outpt - pt will start PO abx - will follow PRN - check bmp Dr John
[2017-12-13 19:38] VITALS: BP 157/67; PULSE 66; TEMP 98.1
== END 2017-12-13 19:46 | DRG 593 ==
LOC: JER 10:38 → JERBED 13:33 → J5S 19:44
PROVIDERS: ADMIT Internal Medicine; ATTEND Family Medicine
PROC: 30233N1 Transfusion of Nonautologous Red Blood Cells into Peripheral Vein, Percutaneous Approach (ICD-10-PCS; principal; 2017-11-25)
DX: L97.524 Non-pressure chronic ulcer of other part of left foot with necrosis of bone (principal); N17.9 Acute kidney failure, unspecified; E87.1 Hypo-osmolality and hyponatremia; R78.81 Bacteremia; M86.9 Osteomyelitis, unspecified; M10.9 Gout, unspecified; L03.032 Cellulitis of left toe; N18.9 Chronic kidney disease, unspecified; G20 Parkinson's disease; N28.1 Cyst of kidney, acquired; D64.9 Anemia, unspecified; I12.9 Hypertensive chronic kidney disease with stage 1 through stage 4 chronic kidney disease, or unspecified chronic kidney disease; E03.9 Hypothyroidism, unspecified; E78.5 Hyperlipidemia, unspecified; Z87.891 Personal history of nicotine dependence; F03.90 Unspecified dementia, unspecified severity, without behavioral disturbance, psychotic disturbance, mood disturbance, and anxiety
CPT/HCPCS: 36415; 36430; 36600; 71045-TC-FY; 73630-TC-LT; 73718-LT; 76775-TC; 76856-TC; 80048; 80053; 82272; 82550; 82607; 82728; 82746; 82803; 83540; 83550; 83735; 84100; 84443; 84466; 84484; 84550; 85025; 85027; 85044; 85610; 85651; 85730; 86038; 86140; 86850; 86900; 86901; 86922; 87040; 87070; 87077; 87186; 87205; 88108; 93005; 93010; 97116-GP; 97161-GP; 99284-25; G0463-25; G0480; J1644; J7030; P9038; P9058

== ENCOUNTER 2018-01-19 18:39 | Observation (INO) | payer OTHER ==
--- NOTE | 2018-01-19 19:51 | PDOC ---
History of Present Illness - General Chief Complaint: Revisit, Lab Variance Stated Complaint: Hyperkalemia Time Seen by Provider: 01/19/18 19:10 - History of Present Illness Initial Comments: 77 y/o F hx of Parkinson's dementia, HTN, HLD, CKD, hypothyroid, gout presents from [facility] for hyperkalemia. Patient otherwise denies any complaints. States she was just eating dinner when was told she was being transferred to the ED. Denies fever, sob, cp, abd pain, n/v/d, dizziness, weakness. Per Dr. John, physician from the alf, the potassium was 5.4 and bicarb was 10. 01/19/18 19:46 Past History - Past Medical History Allergies/Adverse Reactions: Allergies Allergy/AdvReac Type Severity Reaction Status Date / Time No Known Allergies Allergy Verified 01/19/18 20:55 Home Medications: Ambulatory Orders Acetaminophen [Tylenol] 650 mg PO Q6H PRN 01/19/18 Allopurinol [Zyloprim -] 100 mg PO DAILY 01/19/18 Amlodipine Besylate [Norvasc -] 10 mg PO DAILY 01/19/18 Clotrimazole/Betamet Diprop [Lotrisone Cream (Small Tube)] 1 applic TP DAILY Docusate Sodium [Colace -] 300 mg PO HS 01/19/18 Escitalopram Oxalate [Lexapro -] 10 mg PO DAILY 01/19/18 Famotidine 20 mg PO DAILY 01/19/18 Ferrous Sulfate [Feosol] 325 mg PO TID 01/19/18 Heparin Sodium,Porcine [Heparin Sodium] 5,000 unit IJ BID 01/19/18 Hydralazine HCl 10 mg PO BID 01/19/18 Levothyroxine [Synthroid -] 100 mcg PO DAILY 01/19/18 Nystatin Powder [Nystop Topical Powder -] 15 gm TP BID 01/19/18 Povidone-Iodine [Betadine 10% Solution -] 1 applic TP BID 01/19/18 Prednisone 5 mg PO DAILY 01/19/18 Tamsulosin HCl [Flomax] 0.4 mg PO DAILY 01/19/18 COPD: No Dementia: Yes HTN: Yes Hypercholesterolemia: Yes Thyroid Disease: Yes (hypothyroidsm) - Surgical History Appendectomy: Yes - Immunization History Immunization Up to Date: Yes - Suicide/Smoking/Psychosocial Hx Smoking History: Former smoker Have you smoked in the past 12 months: No Number of Cigarettes Smoked Daily: 5 If you are a former smoker, when did you quit?: 5 years ago Information on smoking cessation initiated: No Hx Alcohol Use: No Drug/Substance Use Hx: No Substance Use Type: None Review of Systems - Review of Systems Comments:: See HPI 01/19/18 19:49 *Physical Exam - Vital Signs Last Vital Signs Temp Pulse Resp BP Pulse Ox 97.2 F L 57 L 19 151/58 L 97 01/19/18 19:07 01/19/18 19:07 01/19/18 19:07 01/19/18 19:07 01/19/18 19:07 - Physical Exam General Appearance: No: Apparent Distress HEENT: positive: VERENICE Respiratory/Chest: positive: Lungs Clear, Normal Breath Sounds. negative: Respiratory Distress Cardiovascular: positive: Regular Rhythm, Regular Rate, S1, S2. negative: Murmur Gastrointestinal/Abdominal: positive: Normal Bowel Sounds, Soft. negative: Tender, Distended, Guarding, Rebound Extremity: positive: Normal Inspection. negative: Pedal Edema, Calf Tenderness Neurologic: positive: Alert, Normal Mood/Affect, Other (A&Ox2 (not oriented to time)) Moderate Sedation - Procedure Monitoring Vital Signs: Procedure Monitoring Vital Signs Temperature 97.2 F L 01/19/18 19:07 Pulse Rate 57 L 01/19/18 19:07 Respiratory Rate 19 01/19/18 19:07 Blood Pressure 151/58 L 01/19/18 19:07 O2 Sat by Pulse Oximetry (%) 97 01/19/18 19:07 ED Treatment Course - LABORATORY CBC & Chemistry Diagram: 01/19/18 20:20 01/19/18 20:20 Medical Decision Making - Medical Decision Making 77 y/o F 77 y/o F hx of Parkinson's dementia, HTN, HLD, CKD, hypothyroid, gout presents from [facility] for hyperkalemia and low bicarb. Patient is otherwise asymptomatic. Patient's medications reviewed and unlikely to be the source of the hyperkalemia. Plan: CBC, BMP, VBG, EKG, satellite project site monitor 01/19/18 19:49 Abnormal Lab Results 01/19/18 01/19/18 01/19/18 20:20 20:20 20:20 Hct 31.1 L RDW 17.5 H MPV 7.1 L Eosinophils % 11.6 H D VBG pH 7.26 L Mixed VBG HCO3 16.5 L Sodium 133 L Potassium 5.2 H Carbon Dioxide 18 L BUN 84 H Creatinine 2.7 H Labs show slight acidosis withpH of 7.26, K is 5.2 and bicarb is 18. AG is normal. Glucose is normal. Patient's Cr is at her baseline EKG shows sinus bradycardia at 54 bpm, no peaked T waves noted CK, lactic acid and salicylate levels sent and pending Spoke to Dr. John, who recommended starting patient on PO sodium bicarbonate 650 mg TID and observing patient overnight. Will give first dose now Paged for admission 01/19/18 21:31 *DC/Admit/Observation/Transfer Diagnosis at time of Disposition: Metabolic acidosis - Discharge Dispostion Condition at time of disposition: Stable Decision to Admit order: Yes - Referrals Referrals: Jose Cai [Primary Care Provider] - - Patient Instructions - Post Discharge Activity
[2018-01-19 20:31] LABS: VENOUS PC02 38.5 mmHg (38-52); VENOUS PH 7.26 (7.32-7.42); VENOUS PO2 41.9 mmHg (28-48)
[2018-01-19 20:34] LABS: BASO % 0.8 % (0-2.0); EOS % 11.6 % (0-4.5); HEMATOCRIT 31.1 % (32.4-45.2); HEMOGLOBIN 10.8 GM/dL (10.7-15.3); LYMPH % 18.8 % (8-40); MCH 28.7 pg (25.7-33.7); MCHC 34.7 g/dl (32.0-36.0); MEAN CELL VOLUME 82.8 fl (80-96); MEAN PLT VOLUME 7.1 fl (7.5-11.1); MONO % 5.6 % (3.8-10.2); NEUT % 63.2 % (42.8-82.8); PLATELET COUNT 368 K/MM3 (134-434); RBC 3.76 M/mm3 (3.60-5.2); RDW 17.5 % (11.6-15.6)
[2018-01-19 20:53] LABS: ANION GAP 11 MMOL/L (8-16); BLOOD UREA NITROGEN 84 mg/dL (7-18); CALCIUM 8.6 mg/dL (8.5-10.1); CHLORIDE 105 mmol/L (98-107); CO2 18 mmol/L (21-32); CREATININE 2.7 mg/dL (0.55-1.3); GLUCOSE,RANDOM 96 mg/dL (74-106); MAGNESIUM 2.2 mg/dL (1.8-2.4); POTASSIUM 5.2 mmol/L (3.5-5.1); SODIUM 133 mmol/L (136-145)
[2018-01-19] MEDS ORDERED: SODIUM BICARBONATE 650 MG TABLET PO ONE (21:26)
--- NOTE | 2018-01-19 22:26 | HP ---
Admitting History and Physical - Primary Care Physician PCP: Emmanuel Cabrera - Admission Chief Complaint: Hyperkalemia, Electrolyte Imbalance History of Present Illness: This is a 77 y/o woman from [facility] with a PMHx of: Parkinson's, Dementia , HTN, HLD, CKD, Hypothyroid, Anemia, Gout, MDD, Failure to Thrive. Who was sent in for Hyperkalemia 5.4, Bicarb 10. Patient unable to provide HPI secondary to Dementia. 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 Cardiovascular: Yes: HTN, Hyperlipdemia Renal/: Yes: Renal Inusuff Heme/Onc: Yes: Anemia Psych: Yes: Depression Rheumatology: Yes: Other (arthritis) Endocrine: Yes: Hypothyroidism - Past Surgical History Past Surgical History: Yes: Appendectomy, Tonsillectomy - Advance Directives Advance Directives: Yes: MOLST - Smoking History Smoking history: Former smoker Have you smoked in the past 12 months: No Aproximately how many cigarettes per day: 5 If you are a former smoker, when did you quit?: 5 years ago - Alcohol/Substance Use Hx Alcohol Use: No History of Substance Use: reports: None - Social History Usual Living Arrangement: Yes: Care Home ADL: Support Services History of Recent Travel: No Home Medications - Allergies Allergies/Adverse Reactions: Allergies Allergy/AdvReac Type Severity Reaction Status Date / Time No Known Allergies Allergy Verified 01/19/18 20:55 - Home Medications Home Medications: Ambulatory Orders Acetaminophen [Tylenol] 650 mg PO Q6H PRN 01/19/18 Allopurinol [Zyloprim -] 100 mg PO DAILY 01/19/18 Amlodipine Besylate [Norvasc -] 10 mg PO DAILY 01/19/18 Clotrimazole/Betamet Diprop [Lotrisone Cream (Small Tube)] 1 applic TP DAILY Docusate Sodium [Colace -] 300 mg PO HS 01/19/18 Escitalopram Oxalate [Lexapro -] 10 mg PO DAILY 01/19/18 Famotidine 20 mg PO DAILY 01/19/18 Ferrous Sulfate [Feosol] 325 mg PO TID 01/19/18 Heparin Sodium,Porcine [Heparin Sodium] 5,000 unit SQ BID 01/19/18 Hydralazine HCl 10 mg PO BID 01/19/18 Levothyroxine [Synthroid -] 100 mcg PO DAILY 01/19/18 Nystatin Powder [Nystop Topical Powder -] 15 gm TP BID 01/19/18 Povidone-Iodine [Betadine 10% Solution -] 1 applic TP BID 01/19/18 Prednisone 5 mg PO DAILY 01/19/18 Tamsulosin HCl [Flomax] 0.4 mg PO DAILY 01/19/18 Family Disease History - Family Disease History Family Disease History: Other: Father ( 70's: pancreatic Ca), Mother (: 70's: [place]), Brother (None), Sister (None), Daughter (3 daughters, 2 , ? causes) Review of Systems Unable to obtain ROS, reason: Dementia Physical Examination Vital Signs: Vital Signs Temperature 97.2 F L 01/19/18 19:07 Pulse Rate 57 L 01/19/18 19:07 Respiratory Rate 19 01/19/18 19:07 Blood Pressure 151/58 L 01/19/18 19:07 O2 Sat by Pulse Oximetry (%) 97 01/19/18 19:07 Constitutional: Yes: No Distress, Calm, Thin Eyes: Yes: WNL, Conjunctiva Clear, PERRL HENT: Yes: WNL, Atraumatic, Normocephalic Neck: Yes: WNL, Supple, Trachea Midline Cardiovascular: Yes: Regular Rate and Rhythm, S1, S2 Respiratory: Yes: WNL, Regular, CTA Bilaterally Gastrointestinal: Yes: WNL, Normal Bowel Sounds, Soft ...Rectal Exam: Yes: Deferred Renal/: Yes: Incontinence Breast(s): Yes: WNL Musculoskeletal: Yes: WNL Extremities: Yes: WNL Edema: No Peripheral Pulses WNL: Yes Neurological: Yes: Alert, Confusion, Cran Nerves II-XII Intact ...Motor Strength: WNL Psychiatric: Yes: Alert Labs: CBC, BMP 01/19/18 20:20 01/19/18 20:20 Laboratory Results - last 24 hr 01/19/18 01/19/18 01/19/18 20:20 20:20 20:20 WBC 6.0 RBC 3.76 Hgb 10.8 Hct 31.1 L MCV 82.8 MCH 28.7 MCHC 34.7 RDW 17.5 H Plt Count 368 MPV 7.1 L Absolute Neuts (auto) 3.8 Neutrophils % 63.2 Lymphocytes % 18.8 Monocytes % 5.6 Eosinophils % 11.6 H D Basophils % 0.8 Nucleated RBC % 0 VBG pH 7.26 L POC VBG pCO2 38.5 POC VBG pO2 41.9 Mixed VBG HCO3 16.5 L Sodium 133 L Potassium 5.2 H Chloride 105 Carbon Dioxide 18 L Anion Gap 11 BUN 84 H Creatinine 2.7 H Creat Clearance w eGFR 17.18 Random Glucose 96 Lactic Acid Calcium 8.6 Magnesium 2.2 Creatine Kinase 79 Salicylates < 1.7 L 01/19/18 21:20 WBC RBC Hgb Hct MCV MCH MCHC RDW Plt Count MPV Absolute Neuts (auto) Neutrophils % Lymphocytes % Monocytes % Eosinophils % Basophils % Nucleated RBC % VBG pH POC VBG pCO2 POC VBG pO2 Mixed VBG HCO3 Sodium Potassium Chloride Carbon Dioxide Anion Gap BUN Creatinine Creat Clearance w eGFR Random Glucose Lactic Acid 0.9 Calcium Magnesium Creatine Kinase Salicylates Intake & Output 01/17/18 01/18/18 01/19/18 01/20/18 23:59 23:59 23:59 23:59 Weight 50.802 kg Current Medications Generic Name Dose Route Start Last Admin Trade Name Freq PRN Reason Stop Dose Admin Amlodipine Besylate 10 mg 01/20/18 10:00 Norvasc - PO DAILY [facility] Docusate Sodium 300 mg 01/20/18 22:00 Colace - PO HS [facility] Escitalopram Oxalate 10 mg 01/20/18 10:00 Lexapro - PO DAILY [facility] Ferrous Sulfate 325 mg 01/20/18 08:00 Feosol - PO TIDCM [facility] Heparin Sodium (Porcine) 5,000 unit 01/19/18 23:15 01/19/18 23:20 Heparin - SQ 5,000 unit BID [facility] Administration Hydralazine HCl 10 mg 01/20/18 10:00 Apresoline - PO BID [facility] Levothyroxine Sodium 100 mcg 01/20/18 07:00 Synthroid - PO DAILY@0700 [facility] Nystatin 1 applic 01/20/18 10:00 Nystop Powder - TP BID [facility] Povidone Iodine 1 applic 01/20/18 10:00 Betadine 10% Solution - TP BID [facility] Prednisone 5 mg 01/20/18 10:00 Deltasone - PO DAILY [facility] Ranitidine HCl 150 mg 01/20/18 10:00 Zantac - PO DAILY [facility] Sodium Bicarbonate 650 mg 01/20/18 06:00 Sodium Bicarbonate - PO TID [facility] Tamsulosin HCl 0.4 mg 01/20/18 08:30 Flomax - PO DAILY@0830 [facility] Imaging - Results Chest X-ray: Image Reviewed EKG: Image Reviewed (sinus bradycardia ST & T wave abnormality, consider lateral ischemia QT/QTc 444/421) Problem List - Problems (1) Hyperkalemia Code(s): E87.5 - HYPERKALEMIA (2) Metabolic acidosis Code(s): E87.2 - ACIDOSIS (3) Anemia Code(s): D64.9 - ANEMIA, UNSPECIFIED (4) Failure to thrive Code(s): BNG3293 - Qualifiers: Failure to thrive age range: in adult Qualified Code(s): R62.7 - Adult failure to thrive (5) Gout Code(s): M10.9 - GOUT, UNSPECIFIED (6) HTN (hypertension) Code(s): I10 - ESSENTIAL (PRIMARY) HYPERTENSION (7) Hypothyroid Code(s): E03.9 - HYPOTHYROIDISM, UNSPECIFIED (8) Renal failure (ARF), acute on chronic Code(s): N17.9 - ACUTE KIDNEY FAILURE, UNSPECIFIED; N18.9 - CHRONIC KIDNEY DISEASE, UNSPECIFIED Assessment/Plan 77 y/o woman placed in Tele Observation for Metabolic Acidosis, Hyperkalemia for further evaluation of their emergent condition. Plan: 1. Metabolic Acidosis- Likely secondary to CKD, given Sodium Bicarb in ED, will continue per Nephrology recommendation, Monitor BMP, Monitor vitals 2. Hyperkalemia- Likely secondary to CKD, Appreciate Nephrology consult, EKG- SB , ST & T wave abnormality, no peaked Ts, continue cardiac monitoring. Appreciate Cardiology consult, Monitor BMP 3. CKD- Cr 2.7 at baseline, avoid nephrotoxic agents, appreciate nephrology consult, monitor BMP 4. HTN- stable, monitor BP, continue home meds, monitor renal function 5. HLD- continue home med, monitor LFTs 6. Parkinson's/Dementia/MDD- stable, continue home meds, fall precautions 7. Hypothyroidism- Continue Levothyroxine, TSH in am 8. Anemia- Hgb 10.8, will transfuse if Hgb < 7.0, monitor CBC 9. Gout- Will hold Allopurinol tonight, reassess in am secondary to Hyperkalemia FEN- PO fluids as tolerated, Replete lytes prn, Low Na, Renal Chopped Diet DVT ppx- SCDs, Heparin SQ Dispo: Tele Observation . Visit type - Emergency Visit Emergency Visit: Yes ED Registration Date: 01/19/18 Care time: The patient presented to the Emergency Department on the above date and was hospitalized for further evaluation of their emergent condition. - New Patient This patient is new to me today: Yes Date on this admission: 01/19/18 - Critical Care Critical Care patient: No
[2018-01-19] MEDS ORDERED: HEPARIN NA (PORCINE) 5,000 UNITS/ML 1ML VIAL IVPUSH SCH (23:00)
[2018-01-19] MEDS ORDERED: HEPARIN NA (PORCINE) 5,000 UNITS/ML 1ML VIAL ONE (23:11)
[2018-01-19] MEDS: HEPARIN NA (PORCINE) 5,000 UNITS/ML 1ML VIAL SQ SCH (23:20)
[2018-01-20] MEDS: SODIUM BICARBONATE 650 MG TABLET PO SCH ×3 (06:43→21:25)
[2018-01-20] MEDS: LEVOTHYROXINE NA 100 MCG TABLET (FP) PO SCH (07:04)
[2018-01-20] MEDS: NYSTATIN POWDER 100,000 UNITS/GM - 15 GM TOPICAL POWDER TP SCH ×2 (10:00→21:25)
[2018-01-20] MEDS: hydrALAZINE HCL 10 MG TABLET PO SCH (10:00)
[2018-01-20] MEDS ORDERED: predniSONE 5 MG TABLET (UD) PO SCH (10:00)
[2018-01-20] MEDS: TAMSULOSIN HCL 0.4 MG CAP PO SCH (10:00)
[2018-01-20] MEDS: amLODIPine BESYLATE 10 MG TABLET (FP) PO SCH (10:00)
[2018-01-20] MEDS: HEPARIN NA (PORCINE) 5,000 UNITS/ML 1ML VIAL SQ SCH ×2 (10:00→21:25)
[2018-01-20] MEDS: POVIDONE-IODINE 10% SOLN 118 ML BOTTLE TP SCH ×2 (10:00→21:24)
[2018-01-20] MEDS ORDERED: hydrALAZINE HCL 10 MG TABLET PO SCH (10:00)
[2018-01-20] MEDS: ESCITALOPRAM OXALATE 10 MG TABLET (FP) PO SCH (10:00)
[2018-01-20] MEDS: RANITIDINE HCL 150 MG TABLET (FP) PO SCH (10:00)
[2018-01-20] MEDS: FERROUS SO4 325 MG TABLET (FP) PO SCH ×3 (10:00→17:21)
[2018-01-20 11:37] LABS: BASO % 0.7 % (0-2.0); EOS % 11.9 % (0-4.5); HEMATOCRIT 31.7 % (32.4-45.2); HEMOGLOBIN 10.8 GM/dL (10.7-15.3); LYMPH % 23.1 % (8-40); MCH 28.6 pg (25.7-33.7); MCHC 34.1 g/dl (32.0-36.0); MEAN CELL VOLUME 83.8 fl (80-96); MEAN PLT VOLUME 7.3 fl (7.5-11.1); NEUT % 57.3 % (42.8-82.8); PLATELET COUNT 320 K/MM3 (134-434); RBC 3.78 M/mm3 (3.60-5.2); RDW 18.4 % (11.6-15.6); WHITE BLOOD COUNT 5.8 K/mm3 (4.0-10.0)
--- NOTE | 2018-01-20 11:56 | EKG ---
Test Reason : Blood Pressure : / mmHG Vent. Rate : 044 BPM Atrial Rate : 044 BPM P-R Int : 192 ms QRS Dur : 110 ms QT Int : 502 ms P-R-T Axes : 063 017 097 degrees QTc Int : 429 ms MARKED SINUS BRADYCARDIA INCOMPLETE LEFT BUNDLE BRANCH BLOCK LEFT VENTRICULAR HYPERTROPHY WITH REPOLARIZATION ABNORMALITY ABNORMAL ECG WHEN COMPARED WITH ECG OF 19-JAN-2018 20:34, NO SIGNIFICANT CHANGE WAS FOUND Confirmed by RAEANN HAIRSTON, GEORGES ([id number]) on 01/20/2018 11:56:26 AM Referred By: TU DONOVAN Confirmed By:GEORGES CARY MD
--- NOTE | 2018-01-20 11:58 | EKG ---
Test Reason : Blood Pressure : / mmHG Vent. Rate : 054 BPM Atrial Rate : 054 BPM P-R Int : 184 ms QRS Dur : 104 ms QT Int : 444 ms P-R-T Axes : 063 019 122 degrees QTc Int : 421 ms SINUS BRADYCARDIA ABNORMAL ECG WHEN COMPARED WITH ECG OF 28-NOV-2017 22:47, ST NO LONGER DEPRESSED IN LATERAL LEADS T WAVE INVERSION NO LONGER EVIDENT IN INFERIOR LEADS T WAVE INVERSION LESS EVIDENT IN LATERAL LEADS Confirmed by RAEANN HAIRSTON, GEORGES ([id number]) on 01/20/2018 11:58:01 AM Referred By: Confirmed By:GEORGES CARY MD
[2018-01-20 12:04] LABS: ALBUMIN 2.8 g/dl (3.4-5.0); ALK PHOS 94 U/L (45-117); ANION GAP 13 MMOL/L (8-16); BILIRUBIN,TOTAL 0.2 mg/dL (0.2-1); BLOOD UREA NITROGEN 84 mg/dL (7-18); CALCIUM 8.8 mg/dL (8.5-10.1); CHLORIDE 106 mmol/L (98-107); CO2 17 mmol/L (21-32); CREATININE 2.6 mg/dL (0.55-1.3); GLUCOSE,RANDOM 85 mg/dL (74-106); POTASSIUM 5.3 mmol/L (3.5-5.1); SGOT/AST 15 U/L (15-37); SGPT/ALT 13 U/L (13-61); SODIUM 135 mmol/L (136-145); TOT PROT 6.7 g/dl (6.4-8.2)
--- NOTE | 2018-01-20 12:33 | PN ---
Progress Note, Physician - Current Medication List Current Medications: Active Medications Amlodipine Besylate (Norvasc -) 10 mg PO DAILY [facility] Last Admin: 01/20/18 10:00 Dose: 10 mg Docusate Sodium (Colace -) 300 mg PO [facility] Escitalopram Oxalate (Lexapro -) 10 mg PO DAILY [facility] Last Admin: 01/20/18 10:00 Dose: 10 mg Ferrous Sulfate (Feosol -) 325 mg PO TIDCM [facility] Last Admin: 01/20/18 10:00 Dose: 325 mg Heparin Sodium (Porcine) (Heparin -) 5,000 unit SQ BID [facility] Last Admin: 01/20/18 10:00 Dose: 5,000 unit Hydralazine HCl (Apresoline -) 10 mg PO BID [facility] Last Admin: 01/20/18 10:00 Dose: 10 mg Levothyroxine Sodium (Synthroid -) 100 mcg PO DAILY@0700 [facility] Last Admin: 01/20/18 07:04 Dose: Not Given Nystatin (Nystop Powder -) 1 applic TP BID [facility] Last Admin: 01/20/18 10:00 Dose: Not Given Povidone Iodine (Betadine 10% Solution -) 1 applic TP BID [facility] Last Admin: 01/20/18 10:00 Dose: Not Given Ranitidine HCl (Zantac -) 150 mg PO DAILY [facility] Last Admin: 01/20/18 10:00 Dose: 150 mg Sodium Bicarbonate (Sodium Bicarbonate -) 650 mg PO TID [facility] Last Admin: 01/20/18 06:43 Dose: 650 mg Tamsulosin HCl (Flomax -) 0.4 mg PO DAILY@0830 [facility] Last Admin: 01/20/18 10:00 Dose: 0.4 mg - Objective Vital Signs: Vital Signs Temperature 97.2 F L 01/20/18 09:26 Pulse Rate 46 L 01/20/18 09:26 Respiratory Rate 18 01/20/18 09:26 Blood Pressure 141/46 L 01/20/18 09:26 O2 Sat by Pulse Oximetry (%) 99 01/20/18 09:26 Constitutional: Yes: Calm Cardiovascular: Yes: Regular Rate and Rhythm, S1, S2 Respiratory: Yes: CTA Bilaterally Gastrointestinal: Yes: Normal Bowel Sounds, Soft Edema: No Labs: CBC, BMP 01/20/18 10:30 01/20/18 10:30 Problem List - Problems (1) Hyperkalemia Assessment/Plan: kayxelate repeat bmp in evening Code(s): E87.5 - HYPERKALEMIA (2) Metabolic acidosis Assessment/Plan: bicarbonate tid recheck in evening Code(s): E87.2 - ACIDOSIS (3) HTN (hypertension) Assessment/Plan: hydralazine nad norvasc Code(s): I10 - ESSENTIAL (PRIMARY) HYPERTENSION (4) Hypothyroid Assessment/Plan: synthroid Code(s): E03.9 - HYPOTHYROIDISM, UNSPECIFIED (5) CKD (chronic kidney disease) Assessment/Plan: cr at baseline will monitor renal consult Code(s): N18.9 - CHRONIC KIDNEY DISEASE, UNSPECIFIED Assessment/Plan repeat bmp if K and bicar better then dc back to [facility]
--- NOTE | 2018-01-20 13:08 | DS ---
Physical Examination Vital Signs: Vital Signs Temperature 97.2 F L 01/20/18 09:26 Pulse Rate 46 L 01/20/18 09:26 Respiratory Rate 18 01/20/18 09:26 Blood Pressure 141/46 L 01/20/18 09:26 O2 Sat by Pulse Oximetry (%) 99 01/20/18 09:26 Constitutional: Yes: Calm, Thin Cardiovascular: Yes: Regular Rate and Rhythm, S1, S2 Respiratory: Yes: CTA Bilaterally Gastrointestinal: Yes: Normal Bowel Sounds, Soft Edema: No Labs: CBC, BMP 01/20/18 10:30 01/20/18 10:30 Discharge Summary Reason For Visit: METABOLIC ACIDOSIS Current Active Problems Hyperkalemia (Acute) Metabolic acidosis (Acute) Hospital Course: 77 ur old female sent in for htn,hld,parkinson dementia hypothyroid sent from [facility] for K 5.4 nad bic of 10 in ER kayexalate started bicarbonate 650mg tid Condition: Stable - Instructions Diet, Activity, Other Instructions: sodium bicarbonate 650mg po tid for 5 days check BMP in 4 days to see bicarbonate and potassium level low potassium renal diet Referrals: Jose Cai [Primary Care Provider] - Disposition: [facility] - Home Medications Comprehensive Discharge Medication List: Ambulatory Orders Acetaminophen [Tylenol] 650 mg PO Q6H PRN 01/19/18 Allopurinol [Zyloprim -] 100 mg PO DAILY 01/19/18 Amlodipine Besylate [Norvasc -] 10 mg PO DAILY 01/19/18 Clotrimazole/Betamet Diprop [Lotrisone Cream (Small Tube)] 1 applic TP DAILY Docusate Sodium [Colace -] 300 mg PO HS 01/19/18 Escitalopram Oxalate [Lexapro -] 10 mg PO DAILY 01/19/18 Famotidine 20 mg PO DAILY 01/19/18 Ferrous Sulfate [Feosol] 325 mg PO TID 01/19/18 Heparin Sodium,Porcine [Heparin Sodium] 5,000 unit SQ BID 01/19/18 Hydralazine HCl 10 mg PO BID 01/19/18 Levothyroxine [Synthroid -] 100 mcg PO DAILY 01/19/18 Nystatin Powder [Nystop Topical Powder -] 15 gm TP BID 01/19/18 Povidone-Iodine [Betadine 10% Solution -] 1 applic TP BID 01/19/18 Prednisone 5 mg PO DAILY 01/19/18 Tamsulosin HCl [Flomax] 0.4 mg PO DAILY 01/19/18
--- NOTE | 2018-01-20 13:43 | CONSULT ---
Consult Consult Specialty:: Nephrology - History of Present Illness Chief Complaint: sent in for acidosis History of Present Illness: Pt is a 77 year old female with history of CKD who I sent in to the ER for abnormal labs. She was found to have abicarb of 10 on bloodwork. She had another blood test the same day which showed a bicarb of 15. I sent her in to repeat the values. She says she feels well and has no complaints. She i eager to go back to the [place]. 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 Cardio/Vascular: Yes: HTN, Hyperlipdemia Renal/: Yes: Renal Inusuff Psych: Yes: Depression Rheumatology: Yes: Other (arthritis) Endocrine: Yes: Hypothyroidism - Past Surgical History Past Surgical History: Yes: Appendectomy, Tonsillectomy - Alcohol/Substance Use Hx Alcohol Use: No History of Substance Use: reports: None - Smoking History Smoking history: Former smoker Have you smoked in the past 12 months: No Aproximately how many cigarettes per day: 5 If you are a former smoker, when did you quit?: 5 years ago - Social History Usual Living Arrangement: Snf ADL: Support Services History of Recent Travel: No Home Medications - Allergies Allergies/Adverse Reactions: Allergies Allergy/AdvReac Type Severity Reaction Status Date / Time No Known Allergies Allergy Verified 01/19/18 20:55 - Home Medications Home Medications: Ambulatory Orders Acetaminophen [Tylenol] 650 mg PO Q6H PRN 01/19/18 Allopurinol [Zyloprim -] 100 mg PO DAILY 01/19/18 Amlodipine Besylate [Norvasc -] 10 mg PO DAILY 01/19/18 Clotrimazole/Betamet Diprop [Lotrisone Cream (Small Tube)] 1 applic TP DAILY Docusate Sodium [Colace -] 300 mg PO HS 01/19/18 Escitalopram Oxalate [Lexapro -] 10 mg PO DAILY 01/19/18 Famotidine 20 mg PO DAILY 01/19/18 Ferrous Sulfate [Feosol] 325 mg PO TID 01/19/18 Heparin Sodium,Porcine [Heparin Sodium] 5,000 unit SQ BID 01/19/18 Hydralazine HCl 10 mg PO BID 01/19/18 Levothyroxine [Synthroid -] 100 mcg PO DAILY 01/19/18 Nystatin Powder [Nystop Topical Powder -] 15 gm TP BID 01/19/18 Povidone-Iodine [Betadine 10% Solution -] 1 applic TP BID 01/19/18 Prednisone 5 mg PO DAILY 01/19/18 Tamsulosin HCl [Flomax] 0.4 mg PO DAILY 01/19/18 Family Disease History - Family Disease History Family Disease History: Other: Father ( 70's: pancreatic [place]), Mother (: 70's: [place]), Brother (None), Sister (None), Daughter (3 daughters, 2 , ? causes) Review of Systems - Review of Systems Constitutional: reports: No Symptoms Eyes: reports: No Symptoms HENT: reports: No Symptoms Neck: reports: No Symptoms Cardiovascular: reports: No Symptoms Respiratory: reports: No Symptoms Gastrointestinal: reports: No Symptoms Genitourinary: reports: No Symptoms Musculoskeletal: reports: No Symptoms Integumentary: reports: No Symptoms Neurological: reports: No Symptoms Endocrine: reports: No Symptoms Hematology/Lymphatic: reports: No Symptoms Physical Exam Vital Signs: Vital Signs Temperature 97.2 F L 01/20/18 09:26 Pulse Rate 46 L 01/20/18 09:26 Respiratory Rate 18 01/20/18 09:26 Blood Pressure 141/46 L 01/20/18 09:26 O2 Sat by Pulse Oximetry (%) 99 01/20/18 09:26 Constitutional: Yes: Calm Eyes: Yes: Conjunctiva Clear HENT: Yes: Atraumatic Cardiovascular: Yes: S1, S2 Respiratory: Yes: CTA Bilaterally Gastrointestinal: Yes: Soft Renal/: Yes: WNL Musculoskeletal: Yes: Joint Stiffness Edema: No Neurological: Yes: Oriented Psychiatric: Yes: Oriented Labs: CBC, BMP 01/20/18 10:30 01/20/18 10:30 Imaging - Results Chest X-ray: Report Reviewed Problem List - Problems (1) CKD (chronic kidney disease) Code(s): N18.9 - CHRONIC KIDNEY DISEASE, UNSPECIFIED (2) Hyperkalemia Code(s): E87.5 - HYPERKALEMIA (3) Metabolic acidosis Code(s): E87.2 - ACIDOSIS Assessment/Plan Current Medications Generic Name Dose Route Start Last Admin Trade Name Freq PRN Reason Stop Dose Admin Amlodipine Besylate 10 mg 01/20/18 10:00 01/20/18 10:00 Norvasc - PO 10 mg DAILY [facility] Administration Docusate Sodium 300 mg 01/20/18 22:00 Colace - PO HS [facility] Escitalopram Oxalate 10 mg 01/20/18 10:00 01/20/18 10:00 Lexapro - PO 10 mg DAILY [facility] Administration Ferrous Sulfate 325 mg 01/20/18 08:00 01/20/18 12:38 Feosol - PO 325 mg TIDCM [facility] Administration Heparin Sodium (Porcine) 5,000 unit 01/19/18 23:15 01/20/18 10:00 Heparin - SQ 5,000 unit BID [facility] Administration Hydralazine HCl 10 mg 01/20/18 10:00 01/20/18 10:00 Apresoline - PO 10 mg BID [facility] Administration Levothyroxine Sodium 100 mcg 01/20/18 07:00 01/20/18 07:04 Synthroid - PO Not Given DAILY@0700 [facility] Nystatin 1 applic 01/20/18 10:00 01/20/18 10:00 Nystop Powder - TP Not Given BID [facility] Povidone Iodine 1 applic 01/20/18 10:00 01/20/18 10:00 Betadine 10% Solution - TP Not Given BID [facility] Ranitidine HCl 150 mg 01/20/18 10:00 01/20/18 10:00 Zantac - PO 150 mg DAILY [facility] Administration Sodium Bicarbonate 650 mg 01/20/18 06:00 01/20/18 06:43 Sodium Bicarbonate - PO 650 mg TID [facility] Administration Sodium Polystyrene Sulfonate 30 gm 01/20/18 14:00 Kayexalate - PO 01/20/18 14:01 ONCE ONE Tamsulosin HCl 0.4 mg 01/20/18 08:30 01/20/18 10:00 Flomax - PO 0.4 mg DAILY@0830 [facility] Administration Impression 1. CKD 2. right renal cyst 3. toe ulcer 4. hypothryoid 5. dementia 6. parkinsons 7. HTN 8. hyperkalemia 9. gout 10. met acidosis Plan - start po bicarb 650 q 8 hrs - will treat potassium medically - discussed with medical team - repeat bmp in [place] - renal diet
[2018-01-20] MEDS ORDERED: SODIUM POLYSTYRENE SULFONATE 15 GM/60 ML BOTTLE PO ONE (14:00)
[2018-01-20 15:48] VITALS: BMI 20.7
--- NOTE | 2018-01-20 17:21 | CON.CARD ---
Consult Consult Specialty:: Cardiology Reason for Consultation:: Hyperkalemia - History of Present Illness Chief Complaint: No new complaints History of Present Illness: This is a 77 year old female with a PMH of Parkinson's dementia, HTN, HLD, CKD , hypothyroid, gout presents from [facility] for hyperkalemia. The potassium was 5.4 and bicarb was 10. 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 Cardio/Vascular: Yes: HTN, Hyperlipdemia Renal/: Yes: Renal Inusuff ...: No Psych: Yes: Depression Rheumatology: Yes: Other (arthritis) Endocrine: Yes: Hypothyroidism - Past Surgical History Past Surgical History: Yes: Appendectomy, Tonsillectomy - Alcohol/Substance Use Hx Alcohol Use: No History of Substance Use: reports: None - Smoking History Smoking history: Former smoker Have you smoked in the past 12 months: No Aproximately how many cigarettes per day: 5 If you are a former smoker, when did you quit?: 5 years ago - Social History Usual Living Arrangement: Senior Living ADL: Support Services History of Recent Travel: No Home Medications - Allergies Allergies/Adverse Reactions: Allergies Allergy/AdvReac Type Severity Reaction Status Date / Time No Known Allergies Allergy Verified 01/19/18 20:55 - Home Medications Home Medications: Ambulatory Orders Acetaminophen [Tylenol] 650 mg PO Q6H PRN 01/19/18 Allopurinol [Zyloprim -] 100 mg PO DAILY 01/19/18 Amlodipine Besylate [Norvasc -] 10 mg PO DAILY 01/19/18 Clotrimazole/Betamet Diprop [Lotrisone Cream (Small Tube)] 1 applic TP DAILY Docusate Sodium [Colace -] 300 mg PO HS 01/19/18 Escitalopram Oxalate [Lexapro -] 10 mg PO DAILY 01/19/18 Famotidine 20 mg PO DAILY 01/19/18 Ferrous Sulfate [Feosol] 325 mg PO TID 01/19/18 Heparin Sodium,Porcine [Heparin Sodium] 5,000 unit SQ BID 01/19/18 Hydralazine HCl 10 mg PO BID 01/19/18 Levothyroxine [Synthroid -] 100 mcg PO DAILY 01/19/18 Nystatin Powder [Nystop Topical Powder -] 15 gm TP BID 01/19/18 Povidone-Iodine [Betadine 10% Solution -] 1 applic TP BID 01/19/18 Prednisone 5 mg PO DAILY 01/19/18 Tamsulosin HCl [Flomax] 0.4 mg PO DAILY 01/19/18 Family Disease History - Family Disease History Family Disease History: Other: Father ( 70's: pancreatic [place]), Mother (: 70's: [place]), Brother (None), Sister (None), Daughter (3 daughters, 2 , ? causes) Review of Systems Findings/Remarks: As per HPI Vital Signs: Vital Signs Temperature 97.2 F L 01/20/18 09:26 Pulse Rate 46 L 01/20/18 09:26 Respiratory Rate 18 01/20/18 09:26 Blood Pressure 141/46 L 01/20/18 09:26 O2 Sat by Pulse Oximetry (%) 99 01/20/18 09:26 Constitutional: Yes: Other (Sleeping) HENT: Yes: WNL Neck: Yes: WNL Respiratory: Yes: CTA Bilaterally Gastrointestinal: Yes: Normal Bowel Sounds Cardiovascular: Yes: Regular Rate and Rhythm, Bradycardia Heart Sounds: Yes: S1, S2 Extremities: Yes: WNL Edema: No Neurological: Yes: Other (Sleeping, Aousable) - Other Data Labs, Other Data: CBC, BMP 01/20/18 10:30 01/20/18 10:30 Assessment/Plan 77 year old female with a PMH of Parkinson's dementia, HTN, HLD, CKD, hypothyroid, gout presents from [facility] for hyperkalemia. The potassium was 5.4 and bicarb was 10. Noted to be bradycardic Electrolyte disturbance a factor, bradycardia should improve when electrolytes improve. Sodium bicarbonate 650mg po tid for 5 days Low potassium renal diet BP is stable, continue amlodipine 10 mg PO daily.
[2018-01-20 19:50] LABS: ANION GAP 11 MMOL/L (8-16); BLOOD UREA NITROGEN 86 mg/dL (7-18); CALCIUM 8.7 mg/dL (8.5-10.1); CHLORIDE 105 mmol/L (98-107); CO2 17 mmol/L (21-32); CREATININE 2.7 mg/dL (0.55-1.3); GLUCOSE,RANDOM 138 mg/dL (74-106); POTASSIUM 5.6 mmol/L (3.5-5.1); SODIUM 133 mmol/L (136-145)
[2018-01-20] MEDS ORDERED: PT OWN MED DRAWER 7, Y5N ONE (21:07)
[2018-01-20] MEDS ORDERED: DOCUSATE SODIUM 100 MG CAPSULE (FP) PO SCH (22:00)
[2018-01-21] MEDS: SODIUM BICARBONATE 650 MG TABLET PO SCH ×2 (06:09→14:20)
[2018-01-21] MEDS: LEVOTHYROXINE NA 100 MCG TABLET (FP) PO SCH (06:09)
[2018-01-21] MEDS: hydrALAZINE HCL 10 MG TABLET PO SCH ×2 (06:10→09:32)
[2018-01-21 08:19] LABS: ALBUMIN 2.6 g/dl (3.4-5.0); ALK PHOS 85 U/L (45-117); ANION GAP 11 MMOL/L (8-16); BILIRUBIN,TOTAL 0.2 mg/dL (0.2-1); BLOOD UREA NITROGEN 85 mg/dL (7-18); CALCIUM 8.3 mg/dL (8.5-10.1); CHLORIDE 107 mmol/L (98-107); CO2 18 mmol/L (21-32); CREATININE 2.5 mg/dL (0.55-1.3); GLUCOSE,RANDOM 56 mg/dL (74-106); POTASSIUM 4.9 mmol/L (3.5-5.1); SGOT/AST 12 U/L (15-37); SGPT/ALT 12 U/L (13-61); SODIUM 136 mmol/L (136-145); TOT PROT 6.1 g/dl (6.4-8.2)
[2018-01-21] MEDS: FERROUS SO4 325 MG TABLET (FP) PO SCH ×2 (08:39→11:52)
[2018-01-21] MEDS: TAMSULOSIN HCL 0.4 MG CAP PO SCH (08:39)
[2018-01-21] MEDS ORDERED: PT OWN MED DRAWER 7, Y5N ONE (09:31)
[2018-01-21] MEDS: amLODIPine BESYLATE 10 MG TABLET (FP) PO SCH (09:32)
[2018-01-21] MEDS: ESCITALOPRAM OXALATE 10 MG TABLET (FP) PO SCH (09:32)
[2018-01-21] MEDS: RANITIDINE HCL 150 MG TABLET (FP) PO SCH (09:32)
[2018-01-21] MEDS: HEPARIN NA (PORCINE) 5,000 UNITS/ML 1ML VIAL SQ SCH (09:32)
[2018-01-21] MEDS: NYSTATIN POWDER 100,000 UNITS/GM - 15 GM TOPICAL POWDER TP SCH (09:33)
[2018-01-21] MEDS: POVIDONE-IODINE 10% SOLN 118 ML BOTTLE TP SCH (09:45)
[2018-01-21 10:51] VITALS: PULSE 65; TEMP 97.4
--- NOTE | 2018-01-21 11:36 | PN ---
Progress Note, Physician Chief Complaint: hyperkalemia htn History of Present Illness: NAD Potassium normalized BP little elevated, just received her BP meds, recheck in 1 hour if SBP <160 mm Hg, may go back to [facility] and F/U with nephrology outpatient - Current Medication List Current Medications: Active Medications Amlodipine Besylate (Norvasc -) 10 mg PO DAILY [facility] Last Admin: 01/21/18 09:32 Dose: 10 mg Docusate Sodium (Colace -) 300 mg PO HS [facility] Last Admin: 01/20/18 21:24 Dose: 300 mg Escitalopram Oxalate (Lexapro -) 10 mg PO DAILY [facility] Last Admin: 01/21/18 09:32 Dose: 10 mg Ferrous Sulfate (Feosol -) 325 mg PO TIDCM [facility] Last Admin: 01/21/18 08:39 Dose: 325 mg Heparin Sodium (Porcine) (Heparin -) 5,000 unit SQ BID [facility] Last Admin: 01/21/18 09:32 Dose: 5,000 unit Hydralazine HCl (Apresoline -) 10 mg PO BID [facility] Last Admin: 01/21/18 09:32 Dose: 10 mg Levothyroxine Sodium (Synthroid -) 100 mcg PO DAILY@0700 [facility] Last Admin: 01/21/18 06:09 Dose: 100 mcg Nystatin (Nystop Powder -) 1 applic TP BID [facility] Last Admin: 01/21/18 09:33 Dose: 1 applic Povidone Iodine (Betadine 10% Solution -) 1 applic TP BID [facility] Last Admin: 01/21/18 09:45 Dose: 1 applic Ranitidine HCl (Zantac -) 150 mg PO DAILY [facility] Last Admin: 01/21/18 09:32 Dose: 150 mg Sodium Bicarbonate (Sodium Bicarbonate -) 650 mg PO TID [facility] Last Admin: 01/21/18 06:09 Dose: 650 mg Tamsulosin HCl (Flomax -) 0.4 mg PO DAILY@0830 [facility] Last Admin: 01/21/18 08:39 Dose: 0.4 mg - Objective Vital Signs: Vital Signs Temperature 97.4 F L 01/21/18 10:00 Pulse Rate 65 01/21/18 10:00 Respiratory Rate 20 01/21/18 10:00 Blood Pressure 177/70 H 01/21/18 10:00 O2 Sat by Pulse Oximetry (%) 99 01/20/18 23:00 Constitutional: Yes: Well Nourished, No Distress, Calm Cardiovascular: Yes: Regular Rate and Rhythm Respiratory: Yes: Regular Gastrointestinal: Yes: Normal Bowel Sounds, Soft Musculoskeletal: Yes: WNL Extremities: Yes: WNL Edema: No Peripheral Pulses WNL: Yes Neurological: Yes: Alert, Oriented Psychiatric: Yes: Alert, Oriented Labs: CBC, BMP 01/20/18 10:30 01/21/18 06:00 Problem List - Problems (1) CKD (chronic kidney disease) Assessment/Plan: -Nephrology on board -monitor trend -to f/u with nephrology outpatient Code(s): N18.9 - CHRONIC KIDNEY DISEASE, UNSPECIFIED (2) Hyperkalemia Assessment/Plan: -resolved after kayexalate -started on Sodium bicarb 650 mg TID Code(s): E87.5 - HYPERKALEMIA (3) HTN (hypertension) Assessment/Plan: -recheck BP, if SBP below 160 mm Hg, may be discharged, otherwise stabilize BP before d/c Code(s): I10 - ESSENTIAL (PRIMARY) HYPERTENSION Assessment/Plan see problem list DVT prophylaxis
--- NOTE | 2018-01-21 14:13 | PN ---
Progress Note, Physician History of Present Illness: Pt seen and examined at bedside. She is wake and alert. She is eager to go home. - Current Medication List Current Medications: Active Medications Amlodipine Besylate (Norvasc -) 10 mg PO DAILY [facility] Last Admin: 01/21/18 09:32 Dose: 10 mg Docusate Sodium (Colace -) 300 mg PO HS [facility] Last Admin: 01/20/18 21:24 Dose: 300 mg Escitalopram Oxalate (Lexapro -) 10 mg PO DAILY [facility] Last Admin: 01/21/18 09:32 Dose: 10 mg Ferrous Sulfate (Feosol -) 325 mg PO TIDCM [facility] Last Admin: 01/21/18 11:52 Dose: 325 mg Heparin Sodium (Porcine) (Heparin -) 5,000 unit SQ BID [facility] Last Admin: 01/21/18 09:32 Dose: 5,000 unit Hydralazine HCl (Apresoline -) 10 mg PO BID [facility] Last Admin: 01/21/18 09:32 Dose: 10 mg Levothyroxine Sodium (Synthroid -) 100 mcg PO DAILY@0700 [facility] Last Admin: 01/21/18 06:09 Dose: 100 mcg Nystatin (Nystop Powder -) 1 applic TP BID [facility] Last Admin: 01/21/18 09:33 Dose: 1 applic Povidone Iodine (Betadine 10% Solution -) 1 applic TP BID [facility] Last Admin: 01/21/18 09:45 Dose: 1 applic Ranitidine HCl (Zantac -) 150 mg PO DAILY [facility] Last Admin: 01/21/18 09:32 Dose: 150 mg Sodium Bicarbonate (Sodium Bicarbonate -) 650 mg PO TID [facility] Last Admin: 01/21/18 06:09 Dose: 650 mg Tamsulosin HCl (Flomax -) 0.4 mg PO DAILY@0830 [facility] Last Admin: 01/21/18 08:39 Dose: 0.4 mg - Objective Vital Signs: Vital Signs Temperature 97.4 F L 01/21/18 10:00 Pulse Rate 65 01/21/18 10:00 Respiratory Rate 20 01/21/18 10:00 Blood Pressure 177/70 H 01/21/18 10:00 O2 Sat by Pulse Oximetry (%) 99 01/20/18 23:00 Constitutional: Yes: Calm Eyes: Yes: Conjunctiva Clear HENT: Yes: Atraumatic Neck: Yes: Supple Cardiovascular: Yes: S1, S2 Respiratory: Yes: CTA Bilaterally Gastrointestinal: Yes: Normal Bowel Sounds, Soft Genitourinary: Yes: WNL Edema: No Neurological: Yes: Oriented Psychiatric: Yes: Oriented Labs: CBC, BMP 01/20/18 10:30 01/21/18 06:00 Problem List - Problems (1) CKD (chronic kidney disease) Code(s): N18.9 - CHRONIC KIDNEY DISEASE, UNSPECIFIED (2) Hyperkalemia Code(s): E87.5 - HYPERKALEMIA (3) Metabolic acidosis Code(s): E87.2 - ACIDOSIS Assessment/Plan Current Medications Generic Name Dose Route Start Last Admin Trade Name Freq PRN Reason Stop Dose Admin Amlodipine Besylate 10 mg 01/20/18 10:00 01/21/18 09:32 Norvasc - PO 10 mg DAILY [facility] Administration Docusate Sodium 300 mg 01/20/18 22:00 01/20/18 21:24 Colace - PO 300 mg HS [facility] Administration Escitalopram Oxalate 10 mg 01/20/18 10:00 01/21/18 09:32 Lexapro - PO 10 mg DAILY [facility] Administration Ferrous Sulfate 325 mg 01/20/18 08:00 01/21/18 11:52 Feosol - PO 325 mg TIDCM [facility] Administration Heparin Sodium (Porcine) 5,000 unit 01/19/18 23:15 01/21/18 09:32 Heparin - SQ 5,000 unit BID [facility] Administration Hydralazine HCl 10 mg 01/20/18 10:00 01/21/18 09:32 Apresoline - PO 10 mg BID [facility] Administration Levothyroxine Sodium 100 mcg 01/20/18 07:00 01/21/18 06:09 Synthroid - PO 100 mcg DAILY@0700 [facility] Administration Nystatin 1 applic 01/20/18 10:00 01/21/18 09:33 Nystop Powder - TP 1 applic BID [facility] Administration Povidone Iodine 1 applic 01/20/18 10:00 01/21/18 09:45 Betadine 10% Solution - TP 1 applic BID [facility] Administration Ranitidine HCl 150 mg 01/20/18 10:00 01/21/18 09:32 Zantac - PO 150 mg DAILY [facility] Administration Sodium Bicarbonate 650 mg 01/20/18 06:00 01/21/18 06:09 Sodium Bicarbonate - PO 650 mg TID [facility] Administration Tamsulosin HCl 0.4 mg 01/20/18 08:30 01/21/18 08:39 Flomax - PO 0.4 mg DAILY@0830 [facility] Administration Impression 1. CKD 2. right renal cyst 3. toe ulcer 4. hypothryoid 5. dementia 6. parkinsons 7. HTN 8. hyperkalemia 9. gout 10. met acidosis Plan - potassium is improved - con bicarb on discharge - repeat bp after am meds - will see in office - discussed with medical team - renal diet
[2018-01-21 14:17] VITALS: BP 173/70
[2018-01-21] MEDS ORDERED: hydrALAZINE HCL 25 MG TABLET (FP) PO SCH (15:12)
[2018-01-21] MEDS ORDERED: hydrALAZINE HCL 10 MG TABLET PO SCH (15:15)
== END 2018-01-21 17:31 ==
LOC: JER 18:39 → JERBED 22:05 → J6S 01-20 14:13
PROVIDERS: ADMIT Family Medicine; ATTEND Family Medicine
PROC: 3E013GC Introduction of Other Therapeutic Substance into Subcutaneous Tissue, Percutaneous Approach (ICD-10-PCS; principal; 2018-01-19)
DX: E87.5 Hyperkalemia (principal); E87.2 Acidosis; I12.9 Hypertensive chronic kidney disease with stage 1 through stage 4 chronic kidney disease, or unspecified chronic kidney disease; E03.9 Hypothyroidism, unspecified; E78.5 Hyperlipidemia, unspecified; E78.00 Pure hypercholesterolemia, unspecified; G20 Parkinson's disease; F02.80 Dementia in other diseases classified elsewhere, unspecified severity, without behavioral disturbance, psychotic disturbance, mood disturbance, and anxiety; F32.9 Major depressive disorder, single episode, unspecified
CPT/HCPCS: 36415; 71045-TC-FY; 80048; 80053; 80307; 82550; 82803; 83605; 83735; 85025; 93005; 93010; 96372; 97116-GP; 97161-GP; 99285-25; G0378; J1644

== ENCOUNTER 2018-03-10 08:02 | Day surgery (SDC) | payer OTHER | END 2018-03-10 11:42 | disposition other institution (70) | LOC: JRADIR 08:02 ==

== ENCOUNTER 2018-03-10 11:50 | Inpatient (IN) | payer OTHER, BC ==
--- NOTE | 2018-03-10 12:00 | PDOC ---
History of Present Illness - General Chief Complaint: Revisit, Lab Variance Stated Complaint: ABNORMAL LABS Time Seen by Provider: 03/10/18 11:59 History Source: Patient, Custodial Records, Primary Care Provider Exam Limitations: Dementia - History of Present Illness Initial Comments: Pt is a 77 yo F, with PMH of Parkinson's dementia, HTN, HLD, presenting to [facility] today for renal biopsy. During pre-op labs, pt was found to have LUCERO (increased BUN/Cr from baseline) and the pt could not complete her consent forms. ROS is limited due to pt dementia, but she admits to loose stool over the past 3-4 days. Pt states she also has a chronic, non-productive cough. She denies any fevers/chills, syncope, chest pain, abdominal pain, falls, urinary symptoms, or leg swelling. Social: Pt denies any cigarette, alcohol, or drug use. Pt denies any recent travel or sick contacts. Surgical: appendectomy. Family: no relevant history. PT IS FULL CODE. 03/10/18 12:49 Past History - Travel Traveled outside of the country in the last 30 days: No Close contact w/someone who was outside of country & ill: No - Past Medical History Allergies/Adverse Reactions: Allergies Allergy/AdvReac Type Severity Reaction Status Date / Time No Known Allergies Allergy Verified 03/10/18 12:03 Home Medications: Ambulatory Orders Allopurinol [Zyloprim -] 100 mg PO DAILY 01/19/18 Amlodipine Besylate [Norvasc -] 10 mg PO DAILY 01/19/18 Clotrimazole/Betamet Diprop [Lotrisone -] 1 applic TP DAILY 01/19/18 Docusate Sodium [Colace -] 300 mg PO HS 01/19/18 Escitalopram Oxalate [Lexapro -] 10 mg PO DAILY 01/19/18 Famotidine 20 mg PO DAILY 01/19/18 Ferrous Sulfate [Feosol] 325 mg PO TID 01/19/18 Hydralazine HCl 10 mg PO BID 01/19/18 Levothyroxine [Synthroid -] 100 mcg PO DAILY 01/19/18 Nystatin Powder [Nystop Powder -] 15 gm TP BID 01/19/18 Povidone-Iodine [Betadine -] 1 applic TP BID 01/19/18 Prednisone 5 mg PO DAILY 01/19/18 Tamsulosin HCl [Flomax -] 0.4 mg PO DAILY 01/19/18 Sodium Bicarbonate - 650 mg PO TID tablet 01/21/18 Anemia: Yes Asthma: No Cancer: No Cardiac Disorders: No CVA: No COPD: Yes CHF: No Dementia: Yes Diabetes: No GI Disorders: No Disorders: Yes (incont) HTN: Yes Hypercholesterolemia: Yes Liver Disease: No Seizures: No Thyroid Disease: Yes (hypothyroidsm) - Surgical History Abdominal Surgery: No Appendectomy: Yes Cardiac Surgery: No Cholecystectomy: No Lung Surgery: No Neurologic Surgery: No Orthopedic Surgery: No - Immunization History Immunization Up to Date: Yes - Suicide/Smoking/Psychosocial Hx Smoking History: Former smoker Have you smoked in the past 12 months: No Number of Cigarettes Smoked Daily: 5 If you are a former smoker, when did you quit?: 5 years ago Hx Alcohol Use: No Drug/Substance Use Hx: No Substance Use Type: None Hx Substance Use Treatment: No Review of Systems - Review of Systems Able to Perform ROS?: Yes (dementia, limited) Is the patient limited Welsh proficient: Yes Constitutional: No: Fever, Loss of Appetite HEENTM: No: Recent change in vision, Nose Congestion, Throat Swelling Respiratory: Yes: Cough. No: Orthopnea, Shortness of Breath, Productive cough, Hemoptysis Cardiac (ROS): No: Chest Pain, Edema, Syncope ABD/GI: Yes: Diarrhea. No: Nausea, Poor Appetite, Poor Fluid Intake, Vomiting, Abdominal cramping : Yes: Incontinence (baseline, pt wears a diaper). No: Burning, Dysuria Integumentary: No: Rash Neurological: No: Headache, Numbness, Weakness, Dizziness Psychiatric: No: Change in Appetite Endocrine: No: Change in Weight Hematologic/Lymphatic: Yes: Anemia. No: Blood Clots, Easy Bleeding, Easy Bruising *Physical Exam - Physical Exam General Appearance: Yes: Nourished, Appropriately Dressed. No: Apparent Distress HEENT: positive: EOMI, VERENICE, Normal ENT Inspection, Normal Voice, Pharynx Normal , Hearing Grossly Normal. negative: Scleral Icterus (R), Scleral Icterus (L), Pharyngeal Erythema, Tonsillar Exudate, Tonsillar Erythema Neck: positive: Trachea midline, Supple. negative: Tender, Rigid, Lymphadenopathy (R), Lymphadenopathy (L) Respiratory/Chest: positive: Decreased Breath Sounds, Crackles (coarse breath sounds throughout), Rhonchi. negative: Chest Tender, Lungs Clear, Normal Breath Sounds, Respiratory Distress, Accessory Muscle Use, Wheezing, Dullness Cardiovascular: positive: Regular Rhythm, S1, S2, Bradycardia. negative: Regular Rate, Edema, JVD, Murmur Vascular Pulses: Carotid (R): 4+, Carotid (L): 4+ Gastrointestinal/Abdominal: positive: Normal Bowel Sounds, Flat, Soft. negative : Tender, Organomegaly, Pulsatile Mass, Distended, Guarding, Rebound Rectal Exam: positive: hemorrhoids, other (dark stool, pt on iron) Lymphatic: negative: Adenopathy, Tenderness Musculoskeletal: positive: Normal Inspection. negative: CVA Tenderness Extremity: positive: Normal Capillary Refill, Normal Inspection, Normal Range of Motion, Pelvis Stable. negative: Tender, Pedal Edema Integumentary: positive: Normal Color, Dry, Warm. 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 negative: Fully Oriented (oriented to person only , pt baseline), EOM Palsy, Facial Droop, Numbness, Sensory Deficit Medical Decision Making - Medical Decision Making Pt was seen at bedside, also will be seen by attending Dr. Daniel. Pt presenting to [facility] today for renal biopsy. During pre-op labs, pt was found to have LUCERO ( increased BUN/Cr from baseline) and the pt could not complete her consent forms. ROS is limited due to pt dementia, but she admits to loose stool over the past 3-4 days. Pt states she also has a chronic, non-productive cough. She denies any fevers/chills, syncope, chest pain, abdominal pain, falls, urinary symptoms, or leg swelling. PE showed pt oriented only to person. Coarse breath sounds throughout, no JVD, no b/l pedal edema Considering LUCERO on CKD 2/2 worsening renal function vs hypovolemia (2/2 infection - pneumonia/bronchitis/viral URI vs colitis; 2/2 decreased PO intake). Ordered work-up including C diff, chest x-ray and ECG. Pt received bloodwork at pre-op this morning. Provided 500 mL IV NS for improvement of LUCERO/dehydration. Will continue to reassess pt and monitor for symptomatic improvement. Spoke with PCP (Dr. Cai) and admitting physician (Dr. Cabrera) who accepted the pt for admission. Paged Dr. John for renal consultation. 03/10/18 12:[address] Grewal (Dr. Cabrera's team), who will come to see the pt. 03/10/18 12:[address] John, who will consult for the pt. Suggested 24 hr urine, funes cath, and stool for occult blood, along with gentle fluid hydration. Orders placed. Pt comfortable and awaiting bed upstairs. Dr. Grewal at bedside to see the pt. 03/10/18 13:16 Rectal exam showed dark stool (pt on Fe pills). Influenza lab pending. Pt awaiting bed, vitals stable. 03/10/18 14:12 *DC/Admit/Observation/Transfer Diagnosis at time of Disposition: Renal failure (ARF), acute on chronic Qualifiers: Acute renal failure type: unspecified Chronic kidney disease stage: unspecified stage Qualified Code(s): N17.9 - Acute kidney failure, unspecified - Discharge Dispostion Condition at time of disposition: Stable Decision to Admit order: Yes - Referrals - Patient Instructions - Post Discharge Activity
--- NOTE | 2018-03-10 12:41 | PDOC ---
Attending Attestation - Resident Resident Name: Skylar Fisher - ED Attending Attestation I have performed the following: I have examined & evaluated the patient, The case was reviewed & discussed with the resident, I agree w/resident's findings & plan - HPI HPI: 03/10/18 13:17 This is a 77 year old female who was BIBA from [facility] with a PMHx of Parkinson's, Dementia, HTN, HLD, CKD, Hypothyroid, Anemia, Gout, MDD, Failure to Thrive, who was sent from [facility] because during pre-op labs for renal biopsy, patient was found to have LUCERO (increased BUN/Creatinine from baseline) and the patient could not complete her consent forms. ROS is limited due to pt dementia , but she admits to loose stool over the past 3-4 days. Patient states she also has acute on chronic, cough with mucus production. She denies any fevers/chills , syncope, chest pain, abdominal pain, falls, urinary symptoms, or leg swelling. Social history: Lives with family. Former smoker, no ETOH or drug use. Surgical history: Appendectomy, Tonsillectomy Renal: Alvaro PCP: Emmanuel Cabrera 03/10/18 13:20 - Physicial Exam PE: 03/10/18 13:18 NAD, frail appearing, PERRL, EOMI, MMM, nl conjunctiva, anicteric; neck supple. lungs with bilateral coarse breath sounds and faint crackles. RRR, abdomen soft nontender. ARROYO x4, no focal neuro deficits. No peripheral edema. normal color for ethnicity, WWP. - Medical Decision Making 03/10/18 13:21 I, Shavon Daniel MD, attest that this document has been prepared under my direction and personally reviewed by me in its entirety. I further attest, that it accurately reflects all work, treatment, procedures and medical decision -making performed by me. See HPI for details Vital signs reviewed, wnl. Prior notes reviewed, including admissions, discharges and consultations. laboratory results and imaging reviewed, basic labs and lytes wnl, notable for elevated Cr 2.5, at baseline, due for renal biopsy EKG sinus js, no interval abnormalities, narrow QRS, ST and T wave segments and morphology normal. Nonspecific T wave abnormalities influenza_neg ED course: uncomplicated, given duonebs for cough/wheezing. bedside pocus with primarily A lines on posterior lung triana bilaterally, no pleural effusion. gentle fluid hydration allowed, Cr to be trended C diff pending for diarrhea workup; no recent abx use, but has been in [place] and hospital previously. dispo: admit to Dr Cabrera team for acute on chronic CKD, dehydration, diarrhea 03/10/18 13:21 03/10/18 18:22 <Shavon Daniel - Last Filed: 03/10/18 18:25> Heart Score/ECG Review - ECG Impressions Normal ECG: No Comment:: 03/10/18 13:21 EKG sinus js, no interval abnormalities, narrow QRS, ST and T wave segments and morphology normal. Nonspecific T wave abnormalities <Shavon Daniel - Last Filed: 03/10/18 18:25> Attestations - Attestations 03/10/18 13:08 Documentation prepared by Teri Veliz, acting as medical doctor for Shavon Daniel MD. <Teri Veliz - Last Filed: 03/10/18 13:08>
[2018-03-10] MEDS ORDERED: ALBUTEROL SO4 2.5/IPRATROPIUM 0.5 INH SOL 3 ML VIAL.NEB. NEB ONE (13:10)
[2018-03-10] MEDS ORDERED: SODIUM CHLORIDE 500 ML IV STA (13:18)
--- NOTE | 2018-03-10 13:33 | HP ---
Admitting History and Physical - Primary Care Physician PCP: Jose Cai - Admission Chief Complaint: sent in for renal biopsy abnormal labs History of Present Illness: This is a 77 year old female who was BIBA from [facility] with a PMHx of Parkinson's, Dementia, HTN, HLD, CKD, Hypothyroid, Anemia, Gout, MDD, Failure to Thrive, who was sent from [facility] because during pre-op labs for renal biopsy, patient was found to have LUCERO (increased BUN/Creatinine from baseline) and the patient could not complete her consent forms. ROS is limited due to pt dementia , but she admits to loose stool over the past 3-4 days. Patient states she also has acute on chronic, cough with mucus production. She denies any fevers/chills , syncope, chest pain, abdominal pain, falls, urinary symptoms, or leg swelling. History Source: Medical Record - Past Medical History OUTDOOR ADVENTURE GUIDES: Yes: Dementia, Parkinson's Cardiovascular: Yes: HTN, Hyperlipdemia Renal/: Yes: Renal Inusuff Heme/Onc: Yes: Anemia Psych: Yes: Depression Rheumatology: Yes: Other (arthritis) Endocrine: Yes: Hypothyroidism - Past Surgical History Past Surgical History: Yes: Appendectomy, Tonsillectomy - Smoking History Smoking history: Former smoker Have you smoked in the past 12 months: No Aproximately how many cigarettes per day: 5 If you are a former smoker, when did you quit?: 5 years ago - Alcohol/Substance Use Hx Alcohol Use: No History of Substance Use: reports: None - Social History ADL: Support Services History of Recent Travel: No Home Medications - Allergies Allergies/Adverse Reactions: Allergies Allergy/AdvReac Type Severity Reaction Status Date / Time No Known Allergies Allergy Verified 03/10/18 12:03 - Home Medications Home Medications: Ambulatory Orders Allopurinol [Zyloprim -] 100 mg PO DAILY 01/19/18 Amlodipine Besylate [Norvasc -] 10 mg PO DAILY 01/19/18 Clotrimazole/Betamet Diprop [Lotrisone -] 1 applic TP DAILY 01/19/18 Docusate Sodium [Colace -] 300 mg PO HS 01/19/18 Escitalopram Oxalate [Lexapro -] 10 mg PO DAILY 01/19/18 Famotidine 20 mg PO DAILY 01/19/18 Ferrous Sulfate [Feosol] 325 mg PO TID 01/19/18 Hydralazine HCl 10 mg PO BID 01/19/18 Levothyroxine [Synthroid -] 100 mcg PO DAILY 01/19/18 Nystatin Powder [Nystop Powder -] 15 gm TP BID 01/19/18 Povidone-Iodine [Betadine -] 1 applic TP BID 01/19/18 Prednisone 5 mg PO DAILY 01/19/18 Tamsulosin HCl [Flomax -] 0.4 mg PO DAILY 01/19/18 Sodium Bicarbonate - 650 mg PO TID tablet 01/21/18 Family Disease History - Family Disease History Family Disease History: Other: Father ( 70's: pancreatic Ca), Mother (: 70's: [place]), Brother (None), Sister (None), Daughter (3 daughters, 2 , ? causes) Review of Systems Unable to obtain ROS, reason: bc of dementia Physical Examination Vital Signs: Vital Signs Temperature 97.4 F L 03/10/18 11:50 Pulse Rate 55 L 03/10/18 11:50 Respiratory Rate 16 03/10/18 11:50 Blood Pressure 114/88 03/10/18 11:50 O2 Sat by Pulse Oximetry (%) 100 03/10/18 11:50 seen and examined awake alert doesnot know why she is in ER is hard of hearing does respond to her name Constitutional: Yes: Calm, Thin Cardiovascular: Yes: Regular Rate and Rhythm, S1, S2 Respiratory: Yes: Rhonchi Gastrointestinal: Yes: Normal Bowel Sounds, Soft Edema: No Neurological: Yes: Alert Imaging - Results Chest X-ray: Pending, Image Reviewed Problem List - Problems (1) Anemia Assessment/Plan: maybe secondary to CKD iron panel Code(s): D64.9 - ANEMIA, UNSPECIFIED (2) CKD (chronic kidney disease) Assessment/Plan: renal biopsy cancelled for worsening labs renal consult Code(s): N18.9 - CHRONIC KIDNEY DISEASE, UNSPECIFIED (3) Loose stools Assessment/Plan: stool for c diff Code(s): R19.5 - OTHER FECAL ABNORMALITIES (4) Gout Assessment/Plan: allopurinol daily Code(s): M10.9 - GOUT, UNSPECIFIED (5) Hypothyroid Assessment/Plan: tsh synthroid Code(s): E03.9 - HYPOTHYROIDISM, UNSPECIFIED (6) HTN (hypertension) Assessment/Plan: norvasc and hydralazine Code(s): I10 - ESSENTIAL (PRIMARY) HYPERTENSION Assessment/Plan labs pending renal consult
[2018-03-10] MEDS ORDERED: ALBUTEROL SO4 0.083% IH SOL 2.5 MG/3 ML VIAL.NEB. NEB PRN (13:46)
--- NOTE | 2018-03-10 14:38 | EKG ---
Test Reason : Blood Pressure : / mmHG Vent. Rate : 055 BPM Atrial Rate : 055 BPM P-R Int : 184 ms QRS Dur : 102 ms QT Int : 442 ms P-R-T Axes : 061 011 133 degrees QTc Int : 422 ms SINUS BRADYCARDIA WITH PREMATURE ATRIAL COMPLEXES LEFT VENTRICULAR HYPERTROPHY WITH REPOLARIZATION ABNORMALITY ABNORMAL ECG WHEN COMPARED WITH ECG OF 20-JAN-2018 08:48, PREMATURE ATRIAL COMPLEXES ARE NOW PRESENT NONSPECIFIC T WAVE ABNORMALITY NOW EVIDENT IN ANTERIOR LEADS Confirmed by GEORGES CARY MD ([id number]) on 03/10/2018 2:37:45 PM Referred By: Confirmed By:GEORGES CARY MD
--- NOTE | 2018-03-10 14:54 | CON.PULM ---
Consult Consult Specialty:: PULM/CCM Referred by:: KEEGAN Reason for Consultation:: SOB - History of Present Illness Chief Complaint: LUCERO / AMS History of Present Illness: 77 F, [facility] resident, Parkinson's, Dementia, HTN, HLD, CKD, Hypothyroid , Anemia, Gout, MDD, and Failure to Thrive. Was scheduled for a renal biopsy and was noted in the ASU to be in LUCERO and AMS. Patient has baseline dementia and currently has increased confusion. At this time she does report some cough that seems increased. She denies CP. She denies hemoptysis. CXR: minimally increased vascular markings, improved from previous imaging. - History Source History Provided By: Patient, Medical Record Limitations to Obtaining History: Dementia - Past Medical History [employer] AND STRATEGIC ANALYSIS: Yes: Dementia, Parkinson's Cardio/Vascular: Yes: HTN, Hyperlipdemia Pulmonary: No: Asthma, Previously Intubated, Pulmonary Embolus, Sleep Apnea Renal/: Yes: Renal Inusuff Psych: Yes: Depression Rheumatology: Yes: Other (arthritis) Endocrine: Yes: Hypothyroidism - Past Surgical History Past Surgical History: Yes: Appendectomy, Tonsillectomy - Alcohol/Substance Use Hx Alcohol Use: No History of Substance Use: reports: None - Smoking History Smoking history: Former smoker Have you smoked in the past 12 months: No Aproximately how many cigarettes per day: 5 If you are a former smoker, when did you quit?: 5 years ago - Social History Usual Living Arrangement: Custodial ADL: Support Services History of Recent Travel: No Home Medications - Allergies Allergies/Adverse Reactions: Allergies Allergy/AdvReac Type Severity Reaction Status Date / Time No Known Allergies Allergy Verified 03/10/18 12:03 - Home Medications Home Medications: Ambulatory Orders Allopurinol [Zyloprim -] 100 mg PO DAILY 01/19/18 Amlodipine Besylate [Norvasc -] 10 mg PO DAILY 01/19/18 Clotrimazole/Betamet Diprop [Lotrisone -] 1 applic TP DAILY 01/19/18 Docusate Sodium [Colace -] 300 mg PO HS 01/19/18 Escitalopram Oxalate [Lexapro -] 10 mg PO DAILY 01/19/18 Famotidine 20 mg PO DAILY 01/19/18 Ferrous Sulfate [Feosol] 325 mg PO TID 01/19/18 Hydralazine HCl 10 mg PO BID 01/19/18 Levothyroxine [Synthroid -] 100 mcg PO DAILY 01/19/18 Nystatin Powder [Nystop Powder -] 15 gm TP BID 01/19/18 Povidone-Iodine [Betadine -] 1 applic TP BID 01/19/18 Prednisone 5 mg PO DAILY 01/19/18 Tamsulosin HCl [Flomax -] 0.4 mg PO DAILY 01/19/18 Sodium Bicarbonate - 650 mg PO TID tablet 01/21/18 Family Disease History - Family Disease History Family Disease History: Other: Father ( 70's: pancreatic [place]), Mother (: 70's: [place]), Brother (None), Sister (None), Daughter (3 daughters, 2 , ? causes) Review of Systems Unable to obtain ROS, reason: confusion/poor historian Physical Exam Vital Sings: Vital Signs Temperature 97.4 F L 03/10/18 11:50 Pulse Rate 55 L 03/10/18 11:50 Respiratory Rate 16 03/10/18 11:50 Blood Pressure 114/88 03/10/18 11:50 O2 Sat by Pulse Oximetry (%) 100 03/10/18 11:50 Constitutional: Yes: No Distress, Thin Eyes: Yes: Conjunctiva Clear, EOM Intact HENT: Yes: Atraumatic, Normocephalic Neck: Yes: Supple, Trachea Midline Cardiovascular: Yes: Regular Rate and Rhythm Respiratory: Yes: Cough, Diminished, Rhonchi. No: Accessory Muscle Use, Rales, SOB, SOB on Exertion, Stridor, Tachypnea, Wheezes ...Inspection: Yes: WNL ...Clubbing: No Gastrointestinal: Yes: Normal Bowel Sounds, Soft Renal/: Yes: WNL Musculoskeletal: Yes: WNL Extremities: Yes: WNL Edema: No Peripheral Pulses WNL: Yes Integumentary: Yes: WNL Neurological: Yes: Confusion Imaging - Results Chest X-ray: Report Reviewed, Image Reviewed Problem List - Problems (1) Cough Code(s): R05 - COUGH (2) Loose stools Code(s): R19.5 - OTHER FECAL ABNORMALITIES (3) Renal failure (ARF), acute on chronic Code(s): N17.9 - ACUTE KIDNEY FAILURE, UNSPECIFIED; N18.9 - CHRONIC KIDNEY DISEASE, UNSPECIFIED Qualifiers: Acute renal failure type: unspecified Chronic kidney disease stage: unspecified stage Qualified Code(s): N17.9 - Acute kidney failure, unspecified ; N18.9 - Chronic kidney disease, unspecified (4) Anemia Code(s): D64.9 - ANEMIA, UNSPECIFIED (5) CKD (chronic kidney disease) Code(s): N18.9 - CHRONIC KIDNEY DISEASE, UNSPECIFIED (6) Failure to thrive Code(s): GJS2006 - Qualifiers: Failure to thrive age range: in adult Qualified Code(s): R62.7 - Adult failure to thrive Assessment/Plan Do not clinically or radiographically suspect PNA Possible resolving Viral URI Agree with Influenza screen Would not cover with ABX for now O2 as needed BD TX PRN No indication for systemic steroids Aspiration precautions Renal evaluation IVF Will follow Thank you. Dr Fry
[2018-03-10] MEDS ORDERED: FERROUS SO4 325 MG TABLET (FP) ONE (16:00)
--- NOTE | 2018-03-10 16:14 | CONSULT ---
Consult Consult Specialty:: Nephrology Reason for Consultation:: CKD - History of Present Illness Chief Complaint: sent in for worsening renal failure History of Present Illness: Pt is a 77 year old female with pmhx of ckd, parkinsons dementia, htn and hld who was sent in for worsening renal failure. Pt was in radiology when her labs were checked. She was there for a renal biopsy however she was unable to give consent as she was confused. She now knows where she is but does not have to have insight. She denies shortness of breath. Pt says that she had diarrhea in the NH. 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 Cardio/Vascular: Yes: HTN, Hyperlipdemia Pulmonary: No: Asthma, Previously Intubated, Pulmonary Embolus, Sleep Apnea Renal/: Yes: Renal Inusuff Psych: Yes: Depression Rheumatology: Yes: Other (arthritis) Endocrine: Yes: Hypothyroidism - Past Surgical History Past Surgical History: Yes: Appendectomy, Tonsillectomy - Alcohol/Substance Use Hx Alcohol Use: No History of Substance Use: reports: None - Smoking History Smoking history: Former smoker Have you smoked in the past 12 months: No Aproximately how many cigarettes per day: 5 If you are a former smoker, when did you quit?: 5 years ago - Social History Usual Living Arrangement: Retirement ADL: Support Services History of Recent Travel: No Home Medications - Allergies Allergies/Adverse Reactions: Allergies Allergy/AdvReac Type Severity Reaction Status Date / Time No Known Allergies Allergy Verified 03/10/18 12:03 - Home Medications Home Medications: Ambulatory Orders Allopurinol [Zyloprim -] 100 mg PO DAILY 01/19/18 Amlodipine Besylate [Norvasc -] 10 mg PO DAILY 01/19/18 Clotrimazole/Betamet Diprop [Lotrisone -] 1 applic TP DAILY 01/19/18 Docusate Sodium [Colace -] 300 mg PO HS 01/19/18 Escitalopram Oxalate [Lexapro -] 10 mg PO DAILY 01/19/18 Famotidine 20 mg PO DAILY 01/19/18 Ferrous Sulfate [Feosol] 325 mg PO TID 01/19/18 Hydralazine HCl 10 mg PO BID 01/19/18 Levothyroxine [Synthroid -] 100 mcg PO DAILY 01/19/18 Nystatin Powder [Nystop Powder -] 15 gm TP BID 01/19/18 Povidone-Iodine [Betadine -] 1 applic TP BID 01/19/18 Prednisone 5 mg PO DAILY 01/19/18 Tamsulosin HCl [Flomax -] 0.4 mg PO DAILY 01/19/18 Sodium Bicarbonate - 650 mg PO TID tablet 01/21/18 Family Disease History - Family Disease History Family Disease History: Other: Father ( 70's: pancreatic Ca), Mother (: 70's: [place]), Brother (None), Sister (None), Daughter (3 daughters, 2 , ? causes) Review of Systems - Review of Systems Constitutional: reports: No Symptoms Eyes: reports: No Symptoms HENT: reports: No Symptoms Neck: reports: No Symptoms Cardiovascular: reports: No Symptoms Respiratory: reports: No Symptoms Gastrointestinal: reports: No Symptoms Genitourinary: reports: No Symptoms Musculoskeletal: reports: No Symptoms Integumentary: reports: No Symptoms Neurological: reports: No Symptoms Endocrine: reports: No Symptoms Physical Exam Vital Signs: Vital Signs Temperature 97.4 F L 03/10/18 11:50 Pulse Rate 55 L 03/10/18 11:50 Respiratory Rate 16 03/10/18 11:50 Blood Pressure 114/88 03/10/18 11:50 O2 Sat by Pulse Oximetry (%) 100 03/10/18 11:50 Constitutional: Yes: Calm Eyes: Yes: Conjunctiva Clear HENT: Yes: Atraumatic Neck: Yes: Supple Cardiovascular: Yes: S1, S2 Respiratory: Yes: On Nasal O2 Gastrointestinal: Yes: Soft Renal/: Yes: Incontinence Musculoskeletal: Yes: Muscle Weakness Edema: No Neurological: Yes: Confusion Labs: Laboratory Tests 03/10/18 03/10/18 08:25 13:47 BUN 120 H* Creatinine 2.3 H Influenza A (Rapid) Negative Influenza B (Rapid) Negative Problem List - Problems (1) CKD (chronic kidney disease) Code(s): N18.9 - CHRONIC KIDNEY DISEASE, UNSPECIFIED Assessment/Plan Current Medications Generic Name Dose Route Start Last Admin Trade Name Freq PRN Reason Stop Dose Admin Albuterol Sulfate 1 amp 03/10/18 13:46 Ventolin 0.083% Nebulizer Soln - NEB Q4H PRN SHORT OF BREATH/WHEEZING Amlodipine Besylate 10 mg 03/11/18 10:00 Norvasc - PO DAILY [facility] Docusate Sodium 300 mg 03/10/18 22:00 Colace - PO HS [facility] Ferrous Sulfate 325 mg 03/10/18 17:30 Feosol - PO TIDCM [facility] Heparin Sodium (Porcine) 5,000 unit 03/10/18 22:00 Heparin - SQ BID [facility] Sodium Chloride 500 mls @ 75 mls/hr 03/10/18 13:18 03/10/18 13:37 Normal Saline - IV 03/10/18 19:57 75 mls/hr ASDIR STA Administration Levothyroxine Sodium 100 mcg 03/11/18 07:00 Synthroid - PO DAILY@0700 [facility] Tamsulosin HCl 0.4 mg 03/11/18 08:30 Flomax - PO DAILY@0830 [facility] Impression 1. CKD 2. right renal cyst 3. toe ulcer 4. hypothryoid 5. dementia 6. parkinsons 7. HTN 8. gout 9. diarrhea Plan - start fluids - monitor urine output - check renal ultrasound - repeat labs in am - will follow - monitor for diarrhea - renal diet
[2018-03-10] MEDS: FERROUS SO4 325 MG TABLET (FP) PO SCH (16:55)
[2018-03-10] MEDS ORDERED: HEPARIN NA (PORCINE) 5,000 UNITS/ML 1ML VIAL ONE (23:32)
[2018-03-10] MEDS ORDERED: DOCUSATE SODIUM 100 MG CAPSULE (FP) PO ONE (23:32)
[2018-03-10] MEDS: DOCUSATE SODIUM 100 MG CAPSULE (FP) PO SCH (23:51)
[2018-03-10] MEDS: HEPARIN NA (PORCINE) 5,000 UNITS/ML 1ML VIAL SQ SCH (23:52)
[2018-03-11 05:45] LABS: BASO % 0.9 % (0-2.0); EOS % 4.5 % (0-4.5); HEMATOCRIT 27.3 % (32.4-45.2); HEMOGLOBIN 9.3 GM/dL (10.7-15.3); LYMPH % 17.7 % (8-40); MCH 28.9 pg (25.7-33.7); MEAN CELL VOLUME 85.2 fl (80-96); MEAN PLT VOLUME 7.2 fl (7.5-11.1); MONO % 6.9 % (3.8-10.2); PLATELET COUNT 483 K/MM3 (134-434); RBC 3.21 M/mm3 (3.60-5.2); RDW 17.6 % (11.6-15.6); WHITE BLOOD COUNT 6.9 K/mm3 (4.0-10.0)
[2018-03-11 06:26] LABS: ALBUMIN 2.7 g/dl (3.4-5.0); ALK PHOS 79 U/L (45-117); ANION GAP 8 MMOL/L (8-16); BILIRUBIN,TOTAL 0.2 mg/dL (0.2-1); CALCIUM 8.6 mg/dL (8.5-10.1); CHLORIDE 109 mmol/L (98-107); CO2 23 mmol/L (21-32); CREATININE 2.4 mg/dL (0.55-1.3); GLUCOSE,RANDOM 69 mg/dL (74-106); MAGNESIUM 2.6 mg/dL (1.8-2.4); PHOSPHOROUS 4.4 mg/dL (2.5-4.9); POTASSIUM 4.5 mmol/L (3.5-5.1); SGOT/AST 14 U/L (15-37); SGPT/ALT 12 U/L (13-61); SODIUM 140 mmol/L (136-145); TOT PROT 6.2 g/dl (6.4-8.2)
[2018-03-11 06:36] LABS: BLOOD UREA NITROGEN 109 mg/dL (7-18)
[2018-03-11] MEDS: LEVOTHYROXINE NA 100 MCG TABLET (FP) PO SCH (06:48)
[2018-03-11 08:38] LABS: URINE APPEARANCE CLOUDY; URINE BILIRUBIN NEGATIVE (<2.0 mg/dL); URINE COLOR YELLOW; URINE GLUCOSE (UA) NEGATIVE (NEGATIVE); URINE KETONE NEGATIVE (NEGATIVE); URINE LEUK ESTERASE 3+ (NEGATIVE); URINE NITRITE NEGATIVE (NEGATIVE); URINE PROTEIN 2+ (NEGATIVE); URINE UROBILINOGEN NEGATIVE mg/dL (0.2-1.0)
[2018-03-11 08:49] LABS: EPI CELLS RARE /HPF (FEW); YEAST FEW
[2018-03-11] MEDS ORDERED: TAMSULOSIN HCL 0.4 MG CAP ONE (08:59)
[2018-03-11] MEDS ORDERED: FERROUS SO4 325 MG TABLET (FP) ONE (08:59)
[2018-03-11] MEDS: FERROUS SO4 325 MG TABLET (FP) PO SCH ×3 (09:00→17:29)
[2018-03-11] MEDS: TAMSULOSIN HCL 0.4 MG CAP PO SCH (09:00)
[2018-03-11] MEDS: HEPARIN NA (PORCINE) 5,000 UNITS/ML 1ML VIAL SQ SCH ×2 (09:55→21:52)
[2018-03-11] MEDS: amLODIPine BESYLATE 10 MG TABLET (FP) PO SCH (09:56)
--- NOTE | 2018-03-11 11:04 | PN ---
Progress Note, Physician History of Present Illness: Pt seen and examined at bedside. She is awake and appear comfortable. SHe denies diarrhea. - Current Medication List Current Medications: Active Medications Albuterol Sulfate (Ventolin 0.083% Nebulizer Soln -) 1 amp NEB Q4H PRN PRN Reason: SHORT OF BREATH/WHEEZING Amlodipine Besylate (Norvasc -) 10 mg PO DAILY [facility] Last Admin: 03/11/18 09:56 Dose: 10 mg Docusate Sodium (Colace -) 300 mg PO HS [facility] Last Admin: 03/10/18 23:51 Dose: 300 mg Ferrous Sulfate (Feosol -) 325 mg PO TIDCM [facility] Last Admin: 03/11/18 09:00 Dose: 325 mg Heparin Sodium (Porcine) (Heparin -) 5,000 unit SQ BID [facility] Last Admin: 03/11/18 09:55 Dose: 5,000 unit Levothyroxine Sodium (Synthroid -) 100 mcg PO DAILY@0700 [facility] Last Admin: 03/11/18 06:48 Dose: 100 mcg Tamsulosin HCl (Flomax -) 0.4 mg PO DAILY@0830 [facility] Last Admin: 03/11/18 09:00 Dose: 0.4 mg - Objective Vital Signs: Vital Signs Temperature 98 F 03/11/18 10:17 Pulse Rate 53 L 03/11/18 10:17 Respiratory Rate 18 03/11/18 10:17 Blood Pressure 153/61 03/11/18 10:17 O2 Sat by Pulse Oximetry (%) 98 03/11/18 08:18 Constitutional: Yes: Calm Eyes: Yes: Conjunctiva Clear HENT: Yes: Atraumatic Cardiovascular: Yes: S1, S2 Respiratory: Yes: Rhonchi Gastrointestinal: Yes: Soft Genitourinary: Yes: Bernard Present Musculoskeletal: Yes: WNL Edema: No Neurological: Yes: Confusion Labs: CBC, BMP 03/11/18 05:20 03/11/18 05:20 Problem List - Problems (1) CKD (chronic kidney disease) Code(s): N18.9 - CHRONIC KIDNEY DISEASE, UNSPECIFIED Assessment/Plan Current Medications Generic Name Dose Route Start Last Admin Trade Name Freq PRN Reason Stop Dose Admin Albuterol Sulfate 1 amp 03/10/18 13:46 Ventolin 0.083% Nebulizer Soln - NEB Q4H PRN SHORT OF BREATH/WHEEZING Amlodipine Besylate 10 mg 03/11/18 10:00 03/11/18 09:56 Norvasc - PO 10 mg DAILY LINNEA Administration Docusate Sodium 300 mg 03/10/18 22:00 03/10/18 23:51 Colace - PO 300 mg HS LINNEA Administration Ferrous Sulfate 325 mg 03/10/18 17:30 03/11/18 09:00 Feosol - PO 325 mg TIDCM LINNEA Administration Heparin Sodium (Porcine) 5,000 unit 03/10/18 22:00 03/11/18 09:55 Heparin - SQ 5,000 unit BID LINNEA Administration Levothyroxine Sodium 100 mcg 03/11/18 07:00 03/11/18 06:48 Synthroid - PO 100 mcg DAILY@0700 LINNEA Administration Tamsulosin HCl 0.4 mg 03/11/18 08:30 03/11/18 09:00 Flomax - PO 0.4 mg DAILY@0830 LINNEA Administration Impression 1. CKD 2. right renal cyst 3. toe ulcer 4. hypothryoid 5. dementia 6. parkinsons 7. HTN 8. gout 9. diarrhea Plan - monitor urine output - renal diet - stop protein supplements - check urine volume - bun is improving - repeat labs in am - renal diet
--- NOTE | 2018-03-11 12:04 | PN ---
Progress Note (short form) - Note Progress Note: PULMONARY VSS/AFEBRILE APPEARS COMFORTABLE IN BED Constitutional: Yes: No Distress, Thin Eyes: Yes: Conjunctiva Clear, EOM Intact HENT: Yes: Atraumatic, Normocephalic Neck: Yes: Supple, Trachea Midline Cardiovascular: Yes: Regular Rate and Rhythm Respiratory: Yes: Cough, Diminished, Rhonchi. No: Accessory Muscle Use, Rales, SOB, SOB on Exertion, Stridor, Tachypnea, Wheezes ...Inspection: Yes: WNL ...Clubbing: No Gastrointestinal: Yes: Normal Bowel Sounds, Soft Renal/: Yes: WNL Musculoskeletal: Yes: WNL Extremities: Yes: WNL Edema: No Peripheral Pulses WNL: Yes Integumentary: Yes: WNL Neurological: Yes: Confusion REVIEWED LABS/MEDS/NOTES/IMAGES Impression 1. CKD 2. hypothryoid 3. dementia 4. parkinsons 5. HTN 6. gout 7. diarrhea Plan 02 supplementation bronchodilators as needed IV fluids Stable resp status Jack SCOTT MD
[2018-03-11 12:37] VITALS: BMI 17.6
--- NOTE | 2018-03-11 16:45 | PN ---
Progress Note, Physician Chief Complaint: LUCERO Anemia Loose stools History of Present Illness: Previous noted and events reviewed awake and alert NAD denies complaints of chest pain or SOB collecting urine for 24hr CrCl - Current Medication List Current Medications: Active Medications Albuterol Sulfate (Ventolin 0.083% Nebulizer Soln -) 1 amp NEB Q4H PRN PRN Reason: SHORT OF BREATH/WHEEZING Amlodipine Besylate (Norvasc -) 10 mg PO DAILY [facility] Last Admin: 03/11/18 09:56 Dose: 10 mg Docusate Sodium (Colace -) 300 mg PO HS [facility] Last Admin: 03/10/18 23:51 Dose: 300 mg Ferrous Sulfate (Feosol -) 325 mg PO TIDCM [facility] Last Admin: 03/11/18 12:15 Dose: 325 mg Heparin Sodium (Porcine) (Heparin -) 5,000 unit SQ BID [facility] Last Admin: 03/11/18 09:55 Dose: 5,000 unit Levothyroxine Sodium (Synthroid -) 100 mcg PO DAILY@0700 [facility] Last Admin: 03/11/18 06:48 Dose: 100 mcg Tamsulosin HCl (Flomax -) 0.4 mg PO DAILY@0830 [facility] Last Admin: 03/11/18 09:00 Dose: 0.4 mg - Objective Vital Signs: Vital Signs Temperature 98.4 F 03/11/18 14:36 Pulse Rate 54 L 03/11/18 14:36 Respiratory Rate 20 03/11/18 14:36 Blood Pressure 155/69 03/11/18 14:36 O2 Sat by Pulse Oximetry (%) 99 03/11/18 09:00 Constitutional: Yes: No Distress, Calm Eyes: Yes: Conjunctiva Clear HENT: Yes: Atraumatic Cardiovascular: Yes: Regular Rate and Rhythm Respiratory: Yes: Rhonchi Gastrointestinal: Yes: Normal Bowel Sounds, Soft Genitourinary: Yes: Funes Present Musculoskeletal: Yes: Muscle Weakness Edema: No Integumentary: Yes: WNL Neurological: Yes: Alert, Pre-Existing Deficit Psychiatric: Yes: Alert Labs: CBC, BMP 03/11/18 05:20 03/11/18 05:20 <Aura Germain - Last Filed: 03/11/18 16:37> - Current Medication List Current Medications: Active Medications Albuterol Sulfate (Ventolin 0.083% Nebulizer Soln -) 1 amp NEB Q4H PRN PRN Reason: SHORT OF BREATH/WHEEZING Amlodipine Besylate (Norvasc -) 10 mg PO DAILY [facility] Last Admin: 03/11/18 09:56 Dose: 10 mg Docusate Sodium (Colace -) 300 mg PO HS [facility] Last Admin: 03/10/18 23:51 Dose: 300 mg Ferrous Sulfate (Feosol -) 325 mg PO TIDCM [facility] Last Admin: 03/11/18 17:29 Dose: 325 mg Heparin Sodium (Porcine) (Heparin -) 5,000 unit SQ BID [facility] Last Admin: 03/11/18 09:55 Dose: 5,000 unit Levothyroxine Sodium (Synthroid -) 100 mcg PO DAILY@0700 [facility] Last Admin: 03/11/18 06:48 Dose: 100 mcg Tamsulosin HCl (Flomax -) 0.4 mg PO DAILY@0830 [facility] Last Admin: 03/11/18 09:00 Dose: 0.4 mg - Objective Vital Signs: Vital Signs Temperature 98 F 03/11/18 16:30 Pulse Rate 86 03/11/18 16:30 Respiratory Rate 18 03/11/18 16:30 Blood Pressure 154/60 03/11/18 16:30 O2 Sat by Pulse Oximetry (%) 99 03/11/18 09:00 Labs: CBC, BMP 03/11/18 05:20 03/11/18 05:20 <Emmanuel Cabrera - Last Filed: 03/11/18 21:16> Problem List - Problems (1) Cough Code(s): R05 - COUGH (2) Loose stools Code(s): R19.5 - OTHER FECAL ABNORMALITIES (3) Renal failure (ARF), acute on chronic Code(s): N17.9 - ACUTE KIDNEY FAILURE, UNSPECIFIED; N18.9 - CHRONIC KIDNEY DISEASE, UNSPECIFIED Qualifiers: Acute renal failure type: unspecified Chronic kidney disease stage: unspecified stage Qualified Code(s): N17.9 - Acute kidney failure, unspecified ; N18.9 - Chronic kidney disease, unspecified (4) Anemia Code(s): D64.9 - ANEMIA, UNSPECIFIED (5) Gout Code(s): M10.9 - GOUT, UNSPECIFIED (6) HTN (hypertension) Code(s): I10 - ESSENTIAL (PRIMARY) HYPERTENSION (7) Hypothyroid Code(s): E03.9 - HYPOTHYROIDISM, UNSPECIFIED <Aura Germain - Last Filed: 03/11/18 16:37> Assessment/Plan -renal on board -FC in place, funes care -collecting urine for 24hr CrCl -BUN/Cr elevated, will monitor for downward trend -renal diet -Renal US reviewed atrophic and echogenic kidney consisitent with chronic medical renal disease -pulm on board -cont albuterol neb tx PRN -cont with norvasc -ferrous sulfate daily, pending anemia profile -O2 via NC, keep SpO2 >90% -c-diff pending -dvt ppx <Aura Germain - Last Filed: 03/11/18 16:37> I HAVE EXAMINED THE PATIENT AND AGREE WITH THE ABOVE NOTE <Emmanuel Cabrera - Last Filed: 03/11/18 21:16>
[2018-03-11] MEDS: DOCUSATE SODIUM 100 MG CAPSULE (FP) PO SCH (21:52)
[2018-03-12 04:21] LABS: SERUM IRON SATURATION 12 % (15-55); TOTAL IRON BINDING CAPACITY 188 ug/dL (250-450); UIBC 165 ug/dL (118-369)
[2018-03-12] MEDS: LEVOTHYROXINE NA 100 MCG TABLET (FP) PO SCH (06:27)
[2018-03-12 07:22] LABS: HEMATOCRIT 26.9 % (32.4-45.2); HEMOGLOBIN 9.1 GM/dL (10.7-15.3); MCH 28.9 pg (25.7-33.7); MCHC 33.7 g/dl (32.0-36.0); MEAN CELL VOLUME 85.7 fl (80-96); MEAN PLT VOLUME 7.2 fl (7.5-11.1); PLATELET COUNT 502 K/MM3 (134-434); RBC 3.14 M/mm3 (3.60-5.2); RDW 17.4 % (11.6-15.6); WHITE BLOOD COUNT 8.3 K/mm3 (4.0-10.0)
[2018-03-12 07:38] LABS: ALBUMIN 2.7 g/dl (3.4-5.0); ALK PHOS 79 U/L (45-117); ANION GAP 9 MMOL/L (8-16); BILIRUBIN,TOTAL 0.3 mg/dL (0.2-1); BLOOD UREA NITROGEN 97 mg/dL (7-18); CALCIUM 8.6 mg/dL (8.5-10.1); CHLORIDE 108 mmol/L (98-107); CO2 21 mmol/L (21-32); CREATININE 2.2 mg/dL (0.55-1.3); GLUCOSE,RANDOM 68 mg/dL (74-106); POTASSIUM 4.6 mmol/L (3.5-5.1); SGOT/AST 16 U/L (15-37); SGPT/ALT 12 U/L (13-61); SODIUM 138 mmol/L (136-145); TOT PROT 6.4 g/dl (6.4-8.2)
[2018-03-12] MEDS: HEPARIN NA (PORCINE) 5,000 UNITS/ML 1ML VIAL SQ SCH (09:19)
[2018-03-12] MEDS: TAMSULOSIN HCL 0.4 MG CAP PO SCH (09:20)
[2018-03-12] MEDS: amLODIPine BESYLATE 10 MG TABLET (FP) PO SCH (09:20)
[2018-03-12] MEDS: FERROUS SO4 325 MG TABLET (FP) PO SCH ×2 (09:20→12:07)
--- NOTE | 2018-03-12 09:53 | PN ---
Progress Note, Physician Chief Complaint: LUCERO History of Present Illness: NAD, wants to go back to [facility] no Diarrhea Cr at baseline Seen by Nephrology Respiratory status stable 24 hr urine collection finished-results pending - Current Medication List Current Medications: Active Medications Albuterol Sulfate (Ventolin 0.083% Nebulizer Soln -) 1 amp NEB Q4H PRN PRN Reason: SHORT OF BREATH/WHEEZING Amlodipine Besylate (Norvasc -) 10 mg PO DAILY [facility] Last Admin: 03/12/18 09:20 Dose: 10 mg Docusate Sodium (Colace -) 300 mg PO HS [facility] Last Admin: 03/11/18 21:52 Dose: 300 mg Ferrous Sulfate (Feosol -) 325 mg PO TIDCM [facility] Last Admin: 03/12/18 09:20 Dose: 325 mg Heparin Sodium (Porcine) (Heparin -) 5,000 unit SQ BID [facility] Last Admin: 03/12/18 09:19 Dose: 5,000 unit Iron Sucrose 300 mg/ Sodium (Chloride) 250 mls @ 250 mls/hr IVPB ONCE ONE Stop: 03/12/18 10:59 Levothyroxine Sodium (Synthroid -) 100 mcg PO DAILY@0700 [facility] Last Admin: 03/12/18 06:27 Dose: 100 mcg Polyethylene Glycol (Miralax (For Daily Use) -) 17 gm PO DAILY [facility] Last Admin: 03/12/18 09:20 Dose: 17 gm Tamsulosin HCl (Flomax -) 0.4 mg PO DAILY@0830 [facility] Last Admin: 03/12/18 09:20 Dose: 0.4 mg - Objective Vital Signs: Vital Signs Temperature 98.4 F 03/12/18 07:13 Pulse Rate 56 L 03/12/18 07:13 Respiratory Rate 20 03/12/18 07:13 Blood Pressure 184/67 H 03/12/18 07:13 O2 Sat by Pulse Oximetry (%) 99 03/11/18 21:00 Constitutional: Yes: No Distress, Calm, Cachectic Cardiovascular: Yes: Regular Rate and Rhythm Respiratory: Yes: Regular Gastrointestinal: Yes: Normal Bowel Sounds, Soft Musculoskeletal: Yes: WNL Extremities: Yes: WNL Edema: No Peripheral Pulses WNL: Yes Neurological: Yes: Alert, Pre-Existing Deficit Psychiatric: Yes: Alert Labs: CBC, BMP 03/12/18 06:30 03/12/18 06:30 Problem List - Problems (1) Loose stools Assessment/Plan: -no more diarrhea -viral origin? Code(s): R19.5 - OTHER FECAL ABNORMALITIES (2) Renal failure (ARF), acute on chronic Assessment/Plan: -Seen by nephrology -Cr at baseline now -no renal biopsy recommended at this time by nephrology due to lack of consent, current medical condition not life threatening -renal diet -avoid protein supplements -24 hour urine done-result spending, can f/u with renal outpatient -d/c marin Code(s): N17.9 - ACUTE KIDNEY FAILURE, UNSPECIFIED; N18.9 - CHRONIC KIDNEY DISEASE, UNSPECIFIED Qualifiers: Acute renal failure type: unspecified Chronic kidney disease stage: unspecified stage Qualified Code(s): N17.9 - Acute kidney failure, unspecified ; N18.9 - Chronic kidney disease, unspecified (3) Anemia Assessment/Plan: -JOSE RAUL vs CKD -Venofer x 1 today -started on ferrous sulfate tid -monitor trend -stool ob pending Code(s): D64.9 - ANEMIA, UNSPECIFIED (4) Failure to thrive Code(s): [id number] - Qualifiers: Failure to thrive age range: in adult Qualified Code(s): R62.7 - Adult failure to thrive (5) Constipation Assessment/Plan: -On Colace -Add Miralax 17 gm po daily Code(s): K59.00 - CONSTIPATION, UNSPECIFIED Assessment/Plan see problem list Physical therapy d/c back to [facility], f/u with renal outpatient
[2018-03-12] MEDS ORDERED: POLYETHYLENE GLYCOL 3350 119 GM BTL PO SCH (10:00)
[2018-03-12] MEDS ORDERED: IRON SUCROSE INJECTION 300 MG in SODIUM CHLORIDE 235 ML IVPB ONE (10:00)
[2018-03-12] MEDS ORDERED: ALBUTEROL SO4 2.5/IPRATROPIUM 0.5 INH SOL 3 ML VIAL.NEB. NEB ONE (11:03)
--- NOTE | 2018-03-12 11:04 | DS ---
Physical Examination Vital Signs: Vital Signs Temperature 98.4 F 03/12/18 07:13 Pulse Rate 56 L 03/12/18 07:13 Respiratory Rate 20 03/12/18 07:13 Blood Pressure 184/67 H 03/12/18 07:13 O2 Sat by Pulse Oximetry (%) 99 03/11/18 21:00 Findings/Remarks: This is a 77 year old female who was BIBA from [facility] with a PMHx of Parkinson's, Dementia, HTN, HLD, CKD, Hypothyroid, Anemia, Gout, MDD, Failure to Thrive, who was sent from [facility] because during pre-op labs for renal biopsy, patient was found to have LUCERO (increased BUN/Creatinine from baseline) and the patient could not complete her consent forms. ROS is limited due to pt dementia , but she admits to loose stool over the past 3-4 days. Patient states she also has acute on chronic, cough with mucus production. She denies any fevers/chills , syncope, chest pain, abdominal pain, falls, urinary symptoms, or leg swelling. Constitutional: Yes: No Distress, Calm, Cachectic Cardiovascular: Yes: Regular Rate and Rhythm Respiratory: Yes: Regular Gastrointestinal: Yes: Normal Bowel Sounds, Soft Musculoskeletal: Yes: WNL Extremities: Yes: WNL Edema: No Peripheral Pulses WNL: Yes Neurological: Yes: Alert, Oriented Psychiatric: Yes: Alert, Oriented Labs: CBC, BMP 03/12/18 06:30 03/12/18 06:30 Discharge Summary Reason For Visit: ACUTE RENAL FAILURE SUPERIMPOSED ON CKD Current Active Problems Constipation (Acute) Cough (Acute) Loose stools (Acute) Renal failure (ARF), acute on chronic (Acute) Hospital Course: Laboratory Last Values WBC 8.3 K/mm3 (4.0-10.0) 03/12/18 06:30 RBC 3.14 M/mm3 (3.60-5.2) L 03/12/18 06:30 Hgb 9.1 GM/dL (10.7-15.3) L 03/12/18 06:30 Hct 26.9 % (32.4-45.2) L 03/12/18 06:30 MCV 85.7 fl (80-96) 03/12/18 06:30 MCH 28.9 pg (25.7-33.7) 03/12/18 06:30 MCHC 33.7 g/dl (32.0-36.0) 03/12/18 06:30 RDW 17.4 % (11.6-15.6) H 03/12/18 06:30 Plt Count 502 K/MM3 (134-434) H 03/12/18 06:30 MPV 7.2 fl (7.5-11.1) L 03/12/18 06:30 Absolute Neuts (auto) 4.8 K/mm3 (1.5-8.0) 03/11/18 05:20 Neutrophils % 70.0 % (42.8-82.8) 03/11/18 05:20 Lymphocytes % 17.7 % (8-40) 03/11/18 05:20 Monocytes % 6.9 % (3.8-10.2) 03/11/18 05:20 Eosinophils % 4.5 % (0-4.5) D 03/11/18 05:20 Basophils % 0.9 % (0-2.0) 03/11/18 05:20 Nucleated RBC % 0 % (0-0) 03/11/18 05:20 Sodium 138 mmol/L (136-145) 03/12/18 06:30 Potassium 4.6 mmol/L (3.5-5.1) 03/12/18 06:30 Chloride 108 mmol/L (98-107) H 03/12/18 06:30 Carbon Dioxide 21 mmol/L (21-32) 03/12/18 06:30 Anion Gap 9 MMOL/L (8-16) 03/12/18 06:30 BUN 97 mg/dL (7-18) H 03/12/18 06:30 Creatinine 2.2 mg/dL (0.55-1.3) H 03/12/18 06:30 Creat Clearance w eGFR 21.76 (>60) 03/12/18 06:30 Random Glucose 68 mg/dL (74-106) L 03/12/18 06:30 Calcium 8.6 mg/dL (8.5-10.1) 03/12/18 06:30 Phosphorus 4.4 mg/dL (2.5-4.9) 03/11/18 05:20 Magnesium 2.6 mg/dL (1.8-2.4) H 03/11/18 05:20 Iron 23 ug/dL (27-139) L 03/11/18 05:20 TIBC 188 ug/dL (250-450) L 03/11/18 05:20 Iron Saturation 12 % (15-55) L 03/11/18 05:20 Ferritin 164.3 ng/ml (8-388) 03/11/18 05:20 Total Bilirubin 0.3 mg/dL (0.2-1) 03/12/18 06:30 AST 16 U/L (15-37) 03/12/18 06:30 ALT 12 U/L (13-61) L 03/12/18 06:30 Alkaline Phosphatase 79 U/L (45-117) 03/12/18 06:30 Total Protein 6.4 g/dl (6.4-8.2) 03/12/18 06:30 Albumin 2.7 g/dl (3.4-5.0) L 03/12/18 06:30 Serum Folate 14 ng/mL (3.1-17.5) 03/11/18 05:20 TSH 4.90 uIU/ml (0.358-3.74) H 03/11/18 05:20 Free T4 0.90 ng/dl (0.76-1.46) 03/11/18 05:20 Urine Color Yellow 03/11/18 08:25 Urine Appearance Cloudy 03/11/18 08:25 Urine pH 6.0 (5.0-8.0) 03/11/18 08:25 Ur Specific [place] 1.011 (1.010-1.035) 03/11/18 08:25 Urine Protein 2+ (NEGATIVE) H 03/11/18 08:25 Urine Glucose (UA) Negative (NEGATIVE) 03/11/18 08:25 Urine Ketones Negative (NEGATIVE) 03/11/18 08:25 Urine Blood Negative (NEGATIVE) 03/11/18 08:25 Urine Nitrite Negative (NEGATIVE) 03/11/18 08:25 Urine Bilirubin Negative (<2.0 mg/dL) 03/11/18 08:25 Urine Urobilinogen Negative mg/dL (0.2-1.0) 03/11/18 08:25 Ur Leukocyte Esterase 3+ (NEGATIVE) H 03/11/18 08:25 Urine WBC (Auto) 418 /hpf (3-5) 03/11/18 08:25 Urine RBC (Auto) 1 /hpf (0-3) 03/11/18 08:25 Ur Epithelial Cells Rare /HPF (FEW) 03/11/18 08:25 Urine Yeast Few 03/11/18 08:25 Influenza A (Rapid) Negative 03/10/18 13:47 Influenza B (Rapid) Negative 03/10/18 13:47 Condition: Stable - Instructions Diet, Activity, Other Instructions: -Follow up with nephrology within 1 week -Repeat CBC/CMP in 1 week Disposition: [facility] - Home Medications Comprehensive Discharge Medication List: Ambulatory Orders Allopurinol [Zyloprim -] 100 mg PO DAILY 01/19/18 Amlodipine Besylate [Norvasc -] 10 mg PO DAILY 01/19/18 Clotrimazole/Betamet Diprop [Lotrisone -] 1 applic TP DAILY 01/19/18 Docusate Sodium [Colace -] 300 mg PO HS 01/19/18 Escitalopram Oxalate [Lexapro -] 10 mg PO DAILY 01/19/18 Famotidine 20 mg PO DAILY 01/19/18 Ferrous Sulfate [Feosol] 325 mg PO TID 01/19/18 Hydralazine HCl 10 mg PO BID 01/19/18 Levothyroxine [Synthroid -] 100 mcg PO DAILY 01/19/18 Nystatin Powder [Nystop Powder -] 15 gm TP BID 01/19/18 Povidone-Iodine [Betadine -] 1 applic TP BID 01/19/18 Prednisone 5 mg PO DAILY 01/19/18 Tamsulosin HCl [Flomax -] 0.4 mg PO DAILY 01/19/18 Sodium Bicarbonate - 650 mg PO TID tablet 01/21/18 Albuterol 0.083% Nebulizer Latoya [Ventolin 0.083% Nebulizer Soln -] 1 amp NEB Q4H PRN amp 03/12/18 Amlodipine Besylate [Norvasc -] 10 mg PO DAILY tablet 03/12/18 Docusate Sodium [Colace -] 300 mg PO HS capsule 03/12/18 Ferrous Sulfate [Feosol] 325 mg PO TIDCM ud 03/12/18 Levothyroxine [Synthroid -] 100 mcg PO DAILY@0700 tablet 03/12/18 Polyethylene Glycol 3350 [Miralax 119 gm Btl -] 17 gm PO DAILY PRN bottle 03/12 Tamsulosin HCl [Flomax -] 0.4 mg PO DAILY@0830 cap.er.24h 03/12/18
[2018-03-12 11:09] LABS: CREATININE 2.2 mg/dL (0.55-1.3)
[2018-03-12] MEDS ORDERED: hydrALAZINE HCL 10 MG TABLET PO SCH (11:15)
[2018-03-12 11:30] LABS: URINE CREATININE 26.8 mg/dL (30-50)
--- NOTE | 2018-03-12 12:26 | PN ---
Progress Note (short form) - Note Progress Note: PULMONARY Denies shortness of breath, cough or wheezing. Vital Signs Period Temp Pulse Resp BP Sys/Rolon Pulse Ox Last 24 Hr 97.9 F-98.4 F 54-86 18-20 151-184/60-70 99 Gen: NAD at rest Heart: RRR Lung: scattered rhonchi Abd: soft, nontender Ext: no edema CBC, BMP 03/12/18 06:30 03/12/18 10:52 Active Medications Albuterol Sulfate (Ventolin 0.083% Nebulizer Soln -) 1 amp NEB Q4H PRN PRN Reason: SHORT OF BREATH/WHEEZING Amlodipine Besylate (Norvasc -) 10 mg PO DAILY [facility] Last Admin: 03/12/18 09:20 Dose: 10 mg Docusate Sodium (Colace -) 300 mg PO HS [facility] Last Admin: 03/11/18 21:52 Dose: 300 mg Ferrous Sulfate (Feosol -) 325 mg PO TIDCM [facility] Last Admin: 03/12/18 12:07 Dose: 325 mg Heparin Sodium (Porcine) (Heparin -) 5,000 unit SQ BID [facility] Last Admin: 03/12/18 09:19 Dose: 5,000 unit Hydralazine HCl (Apresoline -) 10 mg PO BID [facility] Last Admin: 03/12/18 12:13 Dose: 10 mg Levothyroxine Sodium (Synthroid -) 100 mcg PO DAILY@0700 [facility] Last Admin: 03/12/18 06:27 Dose: 100 mcg Polyethylene Glycol (Miralax (For Daily Use) -) 17 gm PO DAILY [facility] Last Admin: 03/12/18 09:20 Dose: 17 gm Tamsulosin HCl (Flomax -) 0.4 mg PO DAILY@0830 [facility] Last Admin: 03/12/18 09:20 Dose: 0.4 mg A/P Acute on CKD Hypothyroidism HTN Parkinsons Dementia Cough improved - inhaled bronchodilators as needed - d/c planning in progress
--- NOTE | 2018-03-12 15:15 | PN ---
Progress Note, Physician History of Present Illness: Pt seen and examined at bedside. She is eager to go home. She denies shortness of breath. - Current Medication List Current Medications: Active Medications Albuterol Sulfate (Ventolin 0.083% Nebulizer Soln -) 1 amp NEB Q4H PRN PRN Reason: SHORT OF BREATH/WHEEZING Amlodipine Besylate (Norvasc -) 10 mg PO DAILY [facility] Last Admin: 03/12/18 09:20 Dose: 10 mg Docusate Sodium (Colace -) 300 mg PO HS [facility] Last Admin: 03/11/18 21:52 Dose: 300 mg Ferrous Sulfate (Feosol -) 325 mg PO TIDCM [facility] Last Admin: 03/12/18 12:07 Dose: 325 mg Heparin Sodium (Porcine) (Heparin -) 5,000 unit SQ BID [facility] Last Admin: 03/12/18 09:19 Dose: 5,000 unit Hydralazine HCl (Apresoline -) 10 mg PO BID [facility] Last Admin: 03/12/18 12:13 Dose: 10 mg Levothyroxine Sodium (Synthroid -) 100 mcg PO DAILY@0700 [facility] Last Admin: 03/12/18 06:27 Dose: 100 mcg Polyethylene Glycol (Miralax (For Daily Use) -) 17 gm PO DAILY [facility] Last Admin: 03/12/18 09:20 Dose: 17 gm Tamsulosin HCl (Flomax -) 0.4 mg PO DAILY@0830 [facility] Last Admin: 03/12/18 09:20 Dose: 0.4 mg - Objective Vital Signs: Vital Signs Temperature 98.1 F 03/12/18 10:00 Pulse Rate 59 L 03/12/18 10:00 Respiratory Rate 16 03/12/18 10:00 Blood Pressure 168/88 03/12/18 10:00 O2 Sat by Pulse Oximetry (%) 99 03/12/18 09:00 Constitutional: Yes: Calm Eyes: Yes: Conjunctiva Clear HENT: Yes: Atraumatic Cardiovascular: Yes: S1, S2 Respiratory: Yes: CTA Bilaterally Gastrointestinal: Yes: Soft Genitourinary: Yes: Incontinence Musculoskeletal: Yes: WNL Edema: No Neurological: Yes: Confusion Labs: CBC, BMP 03/12/18 06:30 03/12/18 10:52 Problem List - Problems (1) CKD (chronic kidney disease) Code(s): N18.9 - CHRONIC KIDNEY DISEASE, UNSPECIFIED Assessment/Plan Current Medications Generic Name Dose Route Start Last Admin Trade Name Freq PRN Reason Stop Dose Admin Albuterol Sulfate 1 amp 03/10/18 13:46 Ventolin 0.083% Nebulizer Soln - NEB Q4H PRN SHORT OF BREATH/WHEEZING Amlodipine Besylate 10 mg 03/11/18 10:00 03/12/18 09:20 Norvasc - PO 10 mg DAILY [facility] Administration Docusate Sodium 300 mg 03/10/18 22:00 03/11/18 21:52 Colace - PO 300 mg HS [facility] Administration Ferrous Sulfate 325 mg 03/10/18 17:30 03/12/18 12:07 Feosol - PO 325 mg TIDCM [facility] Administration Heparin Sodium (Porcine) 5,000 unit 03/10/18 22:00 03/12/18 09:19 Heparin - SQ 5,000 unit BID [facility] Administration Hydralazine HCl 10 mg 03/12/18 11:15 03/12/18 12:13 Apresoline - PO 10 mg BID [facility] Administration Levothyroxine Sodium 100 mcg 03/11/18 07:00 03/12/18 06:27 Synthroid - PO 100 mcg DAILY@0700 [facility] Administration Polyethylene Glycol 17 gm 03/12/18 10:00 03/12/18 09:20 Miralax (For Daily Use) - PO 17 gm DAILY [facility] Administration Tamsulosin HCl 0.4 mg 03/11/18 08:30 03/12/18 09:20 Flomax - PO 0.4 mg DAILY@0830 [facility] Administration Impression 1. CKD 2. right renal cyst 3. toe ulcer 4. hypothryoid 5. dementia 6. parkinsons 7. HTN 8. gout 9. diarrhea Plan - renal function improving - bp meds adjusted, monitor bp - renal diet - stop supplements in [place] - bun is improving - discussed with medical team
[2018-03-12 15:43] VITALS: BP 166/68; PULSE 64; TEMP 98.7
== END 2018-03-12 17:19 | DRG 683 ==
LOC: JER 11:50 → JERBED 12:39 → J8W 03-11 11:12
PROVIDERS: ADMIT Family Medicine; ATTEND Family Medicine
DX: N17.9 Acute kidney failure, unspecified (principal); R64 Cachexia; Z68.1 Body mass index [BMI] 19.9 or less, adult; G20 Parkinson's disease; F02.80 Dementia in other diseases classified elsewhere, unspecified severity, without behavioral disturbance, psychotic disturbance, mood disturbance, and anxiety; E78.5 Hyperlipidemia, unspecified; E03.9 Hypothyroidism, unspecified; D64.9 Anemia, unspecified; M10.9 Gout, unspecified; I12.9 Hypertensive chronic kidney disease with stage 1 through stage 4 chronic kidney disease, or unspecified chronic kidney disease; N18.9 Chronic kidney disease, unspecified; R62.7 Adult failure to thrive; E86.0 Dehydration; N28.1 Cyst of kidney, acquired; K59.00 Constipation, unspecified
CPT/HCPCS: 36415; 71045-TC-FY; 76775-TC; 80053; 81003; 81015; 82575; 82728; 82746; 83540; 83550; 83735; 84100; 84439; 84443; 85025; 85027; 85610; 87804; 93005; 93010; 94640; 97116-GP; 97161-GP; 99285-25; J1644; J1756; J7030

== ENCOUNTER 2018-05-27 17:26 | Inpatient (IN) | payer OTHER ==
--- NOTE | 2018-05-27 17:46 | PDOC ---
History of Present Illness - General Chief Complaint: Revisit, Lab Variance Stated Complaint: ABNORMAL LABS Time Seen by Provider: 05/27/18 17:45 - History of Present Illness Initial Comments: 05/27/18 17:45 Ms. Colon is a 77 yo female w/ pmh of Parkinson's dementia, HTN, and HLD, COPD, CKD, Depression, GERD, anemia, prior GI bleed and hyperkalemia BIBA form [facility] for evaluation of anemia noted on regular labs to 4.7/15.0. Patient currently has zero complaints and denies any symptoms at this time. The patient denies chest pain, shortness of breath, headache and dizziness. Denies fever, chills, nausea, vomit, diarrhea and constipation. Denies dysuria, frequency, urgency and hematuria. Past History - Past Medical History Allergies/Adverse Reactions: Allergies Allergy/AdvReac Type Severity Reaction Status Date / Time No Known Allergies Allergy Verified 05/27/18 17:34 Home Medications: Ambulatory Orders Clotrimazole/Betamet Diprop [Lotrisone -] 1 applic TP DAILY 01/19/18 Docusate Sodium [Colace -] 300 mg PO HS 01/19/18 Escitalopram Oxalate [Lexapro -] 10 mg PO DAILY 01/19/18 Famotidine 20 mg PO DAILY 01/19/18 Hydralazine HCl 10 mg PO BID 01/19/18 Nystatin Powder [Nystop Powder -] 15 gm TP BID 01/19/18 Prednisone 5 mg PO DAILY 01/19/18 Sodium Bicarbonate - 650 mg PO TID tablet 01/21/18 Albuterol 0.083% Nebulizer Latoya [Ventolin 0.083% Nebulizer Soln -] 1 amp NEB Q4H PRN amp 03/12/18 Allopurinol [Zyloprim -] 100 mg PO DAILY #30 tablet 03/12/18 Amlodipine Besylate [Norvasc -] 10 mg PO DAILY tablet 03/12/18 Ferrous Sulfate [Feosol] 325 mg PO TIDCM ud 03/12/18 Levothyroxine [Synthroid -] 100 mcg PO DAILY@0700 tablet 03/12/18 Polyethylene Glycol 3350 [Miralax 119 gm Btl -] 17 gm PO DAILY PRN bottle 03/12 Tamsulosin HCl [Flomax -] 0.4 mg PO DAILY@0830 cap.er.24h 03/12/18 Betadine 1 applic TP BID 05/09/18 Pepcid 20 mg PO DAILY 05/09/18 Xalatan 0.005% Eye Drops - 1 drop OU HS 05/09/18 Anemia: Yes Asthma: No Cancer: No Cardiac Disorders: No CVA: No COPD: Yes CHF: No Dementia: Yes Diabetes: No GI Disorders: No Disorders: Yes (incont) HTN: Yes Hypercholesterolemia: Yes Liver Disease: No Seizures: No Thyroid Disease: Yes (hypothyroidsm) - Surgical History Abdominal Surgery: No Appendectomy: Yes Cardiac Surgery: No Cholecystectomy: No Lung Surgery: No Neurologic Surgery: No Orthopedic Surgery: No - Immunization History Immunization Up to Date: Yes - Suicide/Smoking/Psychosocial Hx Smoking History: Never smoked Have you smoked in the past 12 months: No Number of Cigarettes Smoked Daily: 5 If you are a former smoker, when did you quit?: 5 years ago Information on smoking cessation initiated: No Hx Alcohol Use: No Drug/Substance Use Hx: No Substance Use Type: None Hx Substance Use Treatment: No Review of Systems - Review of Systems Comments:: 05/27/18 17:52 GENERAL/CONSTITUTIONAL: No fever or chills. No weakness. HEAD, EYES, EARS, NOSE AND THROAT: No change in vision. No ear pain or discharge. No sore throat. CARDIOVASCULAR: No chest pain or shortness of breath RESPIRATORY: No cough, wheezing, or hemoptysis. GASTROINTESTINAL: No nausea, vomiting, diarrhea or constipation. GENITOURINARY: No dysuria, frequency, or change in urination. MUSCULOSKELETAL: No joint or muscle swelling or pain. No neck or back pain. SKIN: No rash NEUROLOGIC: No headache, vertigo, loss of consciousness, or change in strength/ sensation. ENDOCRINE: No increased thirst. No abnormal weight change HEMATOLOGIC/LYMPHATIC: No anemia, easy bleeding, or history of blood clots. ALLERGIC/IMMUNOLOGIC: No hives or skin allergy. *Physical Exam - Vital Signs Last Vital Signs Temp Pulse Resp BP Pulse Ox 98.3 F 68 18 148/58 L 92 L 05/27/18 17:30 05/27/18 17:30 05/27/18 17:30 05/27/18 17:30 05/27/18 17:30 - Physical Exam Comments: 05/27/18 17:52 GENERAL: +Patient pale in color. Awake, alert, and fully oriented, in no acute distress HEAD: No signs of trauma, normocephalic, atraumatic EYES: PERRLA, EOMI, sclera anicteric, conjunctiva clear ENT: Auricles normal inspection, hearing grossly normal, nares patent, oropharynx clear without exudates. Moist mucosa NECK: Normal ROM, supple, no lymphadenopathy, JVD, or masses LUNGS: No distress, speaks full sentences, clear to auscultation bilaterally HEART: Regular rate and rhythm, normal S1 and S2, no murmurs, rubs or gallops, peripheral pulses normal and equal bilaterally. ABDOMEN: Soft, nontender, normoactive bowel sounds. No guarding, no rebound. No masses EXTREMITIES: Normal inspection, Normal range of motion, no edema. No clubbing or cyanosis. NEUROLOGICAL: Cranial nerves II through XII grossly intact. Normal speech, normal gait, no focal sensorimotor deficits SKIN: Warm, Dry, normal turgor, no rashes or lesions noted. RECTAL: +Black, tarry stool noted. Skin tags/external hemorrhoids noted surrounding anus. ED Treatment Course - LABORATORY CBC & Chemistry Diagram: 05/27/18 18:23 05/27/18 18:23 Medical Decision Making - Medical Decision Making 05/27/18 18:52 Ms. Colon is a 77 yo female w/ pmh as described who presents for evaluation of anemia noted at [place]. SFOB postive. Patient given protonix prophylactically. CBC in ED revealed H/H of 5.2/16.0. 2 units PRBCs ordered. Patient will be admitted for further care. 05/27/18 19:33 Discussed patient with GI who will follow in hospital. Patient BUN/Cr noted to be elevated as below. 05/27/18 19:52 Patient admitted. Laboratory Results - last 24 hr 05/27/18 05/27/18 05/27/18 18:23 18:23 18:23 WBC 8.0 RBC 1.80 L Hgb 5.2 L* Hct 16.0 L D MCV 88.5 MCH 28.8 MCHC 32.6 RDW 16.0 H Plt Count 381 D MPV 7.3 L Absolute Neuts (auto) 6.5 Neutrophils % 81.0 Lymphocytes % 12.2 D Monocytes % 5.4 Eosinophils % 0.5 D Basophils % 0.9 Nucleated RBC % 0 Sodium 134 L Potassium 5.1 Chloride 104 Carbon Dioxide 20 L Anion Gap 11 BUN 122 H* Creatinine 2.2 H Creat Clearance w eGFR 21.76 Random Glucose 107 H Calcium 8.7 Total Bilirubin 0.3 AST 30 ALT 17 Alkaline Phosphatase 74 Total Protein 6.3 L Albumin 3.1 L Stool Occult Blood Crossmatch See Detail 05/27/18 18:25 WBC RBC Hgb Hct MCV MCH MCHC RDW Plt Count MPV Absolute Neuts (auto) Neutrophils % Lymphocytes % Monocytes % Eosinophils % Basophils % Nucleated RBC % Sodium Potassium Chloride Carbon Dioxide Anion Gap BUN Creatinine Creat Clearance w eGFR Random Glucose Calcium Total Bilirubin AST ALT Alkaline Phosphatase Total Protein Albumin Stool Occult Blood Positive Crossmatch *DC/Admit/Observation/Transfer Diagnosis at time of Disposition: Anemia Qualifiers: Anemia type: unspecified type Qualified Code(s): D64.9 - Anemia, unspecified GI bleed Qualifiers: GI bleed type/associated pathology: unspecified gastrointestinal hemorrhage type Qualified Code(s): K92.2 - Gastrointestinal hemorrhage, unspecified - Discharge Dispostion Decision to Admit order: Yes - Referrals Referrals: Jose Cai [Primary Care Provider] - - Patient Instructions - Post Discharge Activity
[2018-05-27 17:48] VITALS: BMI 23.8
--- NOTE | 2018-05-27 18:15 | PDOC ---
Attending Attestation - Resident Resident Name: Jose Juan Fox - ED Attending Attestation I have performed the following: I have examined & evaluated the patient, The case was reviewed & discussed with the resident, I agree w/resident's findings & plan, Exceptions are as noted - HPI HPI: 05/27/18 18:14 The patient is a 77 year old female, from [facility], with a significant past medical history of Parkinson's, Dementia, HTN, HLD, CKD, COPD, Depression, GERD, Hypothyroid, Anemia, Gout, MDD, and hyperkalemia, who presents to the emergency department for anemia found on routine labs. Per [place] report, pt's H/H today was 4.7/15.0. The patient notes she has no complaints or symptoms at this time. The patient denies chest pain, shortness of breath, headache, dizziness, fever , chills, nausea, vomit, diarrhea or constipation. The patient denies dysuria, frequency, urgency or hematuria. Allergies: NKDA Past surgical history: Appendectomy Social history: Former Smoker (quit 5 years ago) PCP: Jose Quintero - Physicial Exam PE: 05/27/18 18:15 GENERAL: Awake, alert, and fully oriented, in no acute distress. HEAD: No signs of trauma EYES: PERRLA, EOMI, sclera anicteric, conjunctiva clear ENT: Auricles normal inspection, hearing grossly normal, nares patent, oropharynx clear without exudates. Moist mucosa NECK: Nontender, no stepoffs, Normal ROM, supple, no lymphadenopathy, JVD, or masses LUNGS: Breath sounds equal, clear to auscultation bilaterally. No wheezes, and no crackles HEART: Regular rate and rhythm, normal S1 and S2, no murmurs, rubs or gallops ABDOMEN: Soft, nontender, normoactive bowel sounds. No guarding, no rebound. No masses EXTREMITIES: Normal range of motion, no edema. No clubbing or cyanosis. No cords, erythema, or tenderness NEUROLOGICAL: Cranial nerves II through XII intact. 5/5 strength and sensation in all extremities, Normal speech, normal gait, normal cerebellar function SKIN: Warm, Dry, normal turgor, no rashes or lesions noted. - Critical Care Time Total Critical Care Time: 60 Critical Care Statement: The care of this patient involved high complexity decision making to prevent further life threatening deterioration of the patient 's condition and/or to evaluate & treat vital organ system(s) failure or risk of failure. - Medical Decision Making 05/27/18 18:15 77 F with possible anemia on routine labwork. Pt HD stable with no symptoms at this time. Will re-check labs, transfuse PRN. Pt has h/o GI bleed so will need evaluation for that if truly anemic. - Labs, coags, T&S - Stool guaiac 05/27/18 18:45 Pt's Hb 5.6 today Guaiac +, melenotic stool Will transfuse 2u Protonix gtt GI consult
[2018-05-27 18:42] LABS: BASO % 0.9 % (0-2.0); EOS % 0.5 % (0-4.5); LYMPH % 12.2 % (8-40); MCH 28.8 pg (25.7-33.7); MCHC 32.6 g/dl (32.0-36.0); MEAN CELL VOLUME 88.5 fl (80-96); MEAN PLT VOLUME 7.3 fl (7.5-11.1); MONO % 5.4 % (3.8-10.2); PLATELET COUNT 381 K/MM3 (134-434)
[2018-05-27 18:45] LABS: HEMOGLOBIN 5.2 GM/dL (10.7-15.3)
[2018-05-27] MEDS ORDERED: PANTOPRAZOLE SODIUM 80 MG in SODIUM CHLORIDE 100 ML IVPB SCH (18:45)
[2018-05-27] MEDS ORDERED: PANTOPRAZOLE SODIUM 40 MG VIAL IVPUSH ONE (18:45)
[2018-05-27 19:28] LABS: ALBUMIN 3.1 g/dl (3.4-5.0); ALK PHOS 74 U/L (45-117); ANION GAP 11 MMOL/L (8-16); BILIRUBIN,TOTAL 0.3 mg/dL (0.2-1); CALCIUM 8.7 mg/dL (8.5-10.1); CHLORIDE 104 mmol/L (98-107); CO2 20 mmol/L (21-32); CREATININE 2.2 mg/dL (0.55-1.3); GLUCOSE,RANDOM 107 mg/dL (74-106); POTASSIUM 5.1 mmol/L (3.5-5.1); SGOT/AST 30 U/L (15-37); SGPT/ALT 17 U/L (13-61); SODIUM 134 mmol/L (136-145); TOT PROT 6.3 g/dl (6.4-8.2)
[2018-05-27 19:32] LABS: BLOOD UREA NITROGEN 122 mg/dL (7-18)
--- NOTE | 2018-05-27 19:46 | HP ---
CHIEF COMPLAINT: low hemoglobin [facility]ISTORY OF PRESENT ILLNESS: This is a 77 year old female with a past medical history of GERD, GI Beed, anemia who was sent from [facility] with a hemoglobin of 4.7. Pt denies abdominal pain, diarrhea, constipation, nausea, vomiting, hematochezia, hematemesis, melena. Denies lightheadedness, dizziness, SOB. Reports feeling well. Pt wants to go home. Pt was receiving 0.45NS @ 60cc/hr via hypodermoclysis at the [place]. ER course was notable for: (1) Hgb 5.2, 2uPRBC ordered (2) stool + guaiac Recent Travel: pt denies PAST MEDICAL HISTORY: Parkinson's disease with dementia, HTN, HLD, CKD with hyperkalemia and acidosis , COPD, GERD, GI bleed, anemia, depression PAST SURGICAL HISTORY: appendectomy, tonsillectomy Social History: Smoking: quit 7-8 years ago Alcohol: pt denies Drugs: pt denies Family History: father , pancreatic CA mother in her 70s, ?[place] no siblings Allergies No Known Allergies Allergy (Verified 05/27/18 17:34) HOME MEDICATIONS: 3 Medication Instructions Recorded Clotrimazole/Betamet Diprop 1 applic TP DAILY 01/19/18 [Lotrisone -] Docusate Sodium [Colace -] 300 mg PO HS 01/19/18 Escitalopram Oxalate [Lexapro -] 10 mg PO DAILY 01/19/18 Famotidine 20 mg PO DAILY 01/19/18 Hydralazine HCl 10 mg PO BID 01/19/18 Nystatin Powder [Nystop Powder -] 15 gm TP BID 01/19/18 Prednisone 5 mg PO DAILY 01/19/18 Sodium Bicarbonate - 650 mg PO TID tablet 01/21/18 Albuterol 0.083% Nebulizer Latoya 1 amp NEB Q4H PRN amp 03/12/18 [Ventolin 0.083% Nebulizer Soln -] Allopurinol [Zyloprim -] 100 mg PO DAILY #30 tablet 03/12/18 Amlodipine Besylate [Norvasc -] 10 mg PO DAILY tablet 03/12/18 Ferrous Sulfate [Feosol] 325 mg PO TIDCM ud 03/12/18 Levothyroxine [Synthroid -] 100 mcg PO DAILY@0700 tablet 03/12/18 Polyethylene Glycol 3350 [Miralax 17 gm PO DAILY PRN bottle 03/12/18 119 gm Btl -] Tamsulosin HCl [Flomax -] 0.4 mg PO DAILY@0830 cap.er.24h 03/12/18 Betadine 1 applic TP BID 05/09/18 Pepcid 20 mg PO DAILY 05/09/18 Xalatan 0.005% Eye Drops - 1 drop OU HS 05/09/18 REVIEW OF SYSTEMS CONSTITUTIONAL: Absent: fever, chills, diaphoresis, generalized weakness, malaise, loss of appetite, weight change HEENT: Absent: rhinorrhea, nasal congestion, throat pain, throat swelling, difficulty swallowing, mouth swelling, ear pain, eye pain, visual changes CARDIOVASCULAR: Absent: chest pain, syncope, palpitations, irregular heart rate, lightheadedness , peripheral edema RESPIRATORY: Absent: cough, shortness of breath, dyspnea with exertion, orthopnea, wheezing, stridor, hemoptysis GASTROINTESTINAL: Absent: abdominal pain, abdominal distension, nausea, vomiting, diarrhea, constipation, melena, hematochezia GENITOURINARY: Absent: dysuria, frequency, urgency, hesitancy, hematuria, flank pain, genital pain MUSCULOSKELETAL: Absent: myalgia, arthralgia, joint swelling, back pain, neck pain SKIN: Absent: rash, itching, pallor HEMATOLOGIC/IMMUNOLOGIC: Absent: easy bleeding, easy bruising, lymphadenopathy, frequent infections ENDOCRINE: Absent: unexplained weight gain, unexplained weight loss, heat intolerance, cold intolerance NEUROLOGIC: Absent: headache, focal weakness or paresthesias, dizziness, unsteady gait, seizure, mental status changes, bladder or bowel incontinence PSYCHIATRIC: Absent: anxiety, depression, suicidal or homicidal ideation, hallucinations. PHYSICAL EXAMINATION Vital Signs - 24 hr 3 05/27/18 17:30 Temperature 98.3 F Pulse Rate 68 Respiratory 18 Rate Blood Pressure 148/58 L O2 Sat by Pulse 92 L Oximetry (%) GENERAL: Awake, alert, and oriented to person, place, month/year, in no acute distress. HEAD: Normal with no signs of trauma. EYES: Pupils equal, round and reactive to light, extraocular movements intact, sclera anicteric, conjunctiva clear. No lid lag. EARS, NOSE, THROAT: Ears normal, nares patent, oropharynx clear without exudates. Moist mucous membranes. conjunctiva pale NECK: Normal range of motion, supple without lymphadenopathy, JVD, or masses. LUNGS: Breath sounds equal, clear to auscultation bilaterally. No wheezes, and no crackles. No accessory muscle use. HEART: Regular rate and rhythm, normal S1 and S2 without murmur, rub or gallop. ABDOMEN: Soft, nontender, not distended, normoactive bowel sounds, no guarding, no rebound, no masses. No hepatomegaly or splenomegaly. Hypodermoclysis needles present bilateral abdomen. MUSCULOSKELETAL: Normal range of motion at all joints. No bony deformities or tenderness. No CVA tenderness. UPPER EXTREMITIES: 2+ pulses, warm, well-perfused. No cyanosis. No clubbing. No peripheral edema. LOWER EXTREMITIES: 2+ pulses, warm, well-perfused. No calf tenderness. No peripheral edema. NEUROLOGICAL: Cranial nerves II-XII intact. Normal speech. PSYCHIATRIC: Cooperative. Good eye contact. Appropriate mood and affect. SKIN: Warm, dry, normal turgor, no rashes or lesions noted, normal capillary refill. Laboratory Results - last 24 hr 3 05/27/18 05/27/18 05/27/18 05/27/18 18:23 18:23 18:23 18:25 WBC 8.0 RBC 1.80 L Hgb 5.2 L* Hct 16.0 L D MCV 88.5 MCH 28.8 MCHC 32.6 RDW 16.0 H Plt Count 381 D MPV 7.3 L Absolute Neuts (auto) 6.5 Neutrophils % 81.0 Lymphocytes % 12.2 D Monocytes % 5.4 Eosinophils % 0.5 D Basophils % 0.9 Nucleated RBC % 0 Sodium 134 L Potassium 5.1 Chloride 104 Carbon Dioxide 20 L Anion Gap 11 BUN 122 H* Creatinine 2.2 H Creat Clearance w eGFR 21.76 Random Glucose 107 H Calcium 8.7 Total Bilirubin 0.3 AST 30 ALT 17 Alkaline Phosphatase 74 Total Protein 6.3 L Albumin 3.1 L Stool Occult Blood Positive Crossmatch See Detail ASSESSMENT/PLAN: 77yF with PMH Parkinson's disease with dementia, HTN, HLD, CKD with hyperkalemia and acidosis, COPD, GERD, GI bleed, anemia, depression presented with low hemoglobin and positive stool guaiac now being admitted for profound anemia. Anemia likely due to GI bleed, acute vs chronic - transfuse 2uPRBC as ordered - GI consult - clear liquid diet - repeat CBC after PRBC - protonix 40mg bid, hold home famotidine while on same HTN - cont hydralazine, norvasc with strict hold parameters CKD - cont sodium bicarbonate - Cr within usual baseline, cont to monitor COPD - cont home prednisone 5mg tab, consider pulm consult for management as pt does not appear to be on any inhalers hypothyroid - cont synthroid, check tsh Depression - cont home lexapro DVT PPX - heparin not started due to profound anemia in setting of likely GI bleed FEN - hold IVF, pt will be receiving volume in blood - monitor BMP, replete as indicated - clear liquid diet Dispo: pt currently requires inpatient management of her emergent condition. Visit type - Emergency Visit Emergency Visit: Yes ED Registration Date: 05/27/18 Care time: The patient presented to the Emergency Department on the above date and was hospitalized for further evaluation of their emergent condition. - New Patient This patient is new to me today: Yes Date on this admission: 05/27/18 - Critical Care Critical Care patient: No
[2018-05-27] MEDS ORDERED: PANTOPRAZOLE SODIUM 40 MG VIAL ONE ×2 (20:20→20:31)
[2018-05-27] MEDS ORDERED: PANTOPRAZOLE SODIUM 40 MG/100 ML BAG IVPB ONE (20:20)
[2018-05-28] MEDS: LEVOTHYROXINE NA 100 MCG TABLET (FP) PO SCH (06:33)
[2018-05-28] MEDS: hydrALAZINE HCL 50 MG TABLET (FP) PO SCH ×3 (06:33→22:18)
[2018-05-28] MEDS ORDERED: ALBUTEROL SO4 2.5/IPRATROPIUM 0.5 INH SOL 3 ML VIAL.NEB. NEB ONE (07:20)
[2018-05-28] MEDS ORDERED: FUROSEMIDE 40 MG/4 ML INJECTABLE VIAL IVPUSH ONE (07:21)
--- NOTE | 2018-05-28 07:25 | HOSP ---
Subjective - Review of Symptoms Pulmonary: Yes: Dyspnea Cardiovascular: Yes: Orthopnea Physical Examination Vital Signs: Vital Signs Temperature 98.2 F 05/27/18 21:50 Pulse Rate 62 05/27/18 21:50 Respiratory Rate 20 05/27/18 23:47 Blood Pressure 134/60 05/27/18 21:50 O2 Sat by Pulse Oximetry (%) 94 L 05/27/18 23:47 Constitutional: Yes: Anxious Eyes: Yes: WNL HENT: Yes: WNL Neck: Yes: WNL Cardiovascular: Yes: Regular Rate and Rhythm Respiratory: Yes: Accessory Muscle Use, Rales, Rhonchi, SOB, Wheezes Gastrointestinal: Yes: Soft Labs: CBC, BMP 05/27/18 18:23 05/27/18 18:23 Hospitalist Encounter Assessment: Patient is a 77 year old female with hx of GERD, GI Beed, anemia and COPD. She was sent from [facility] with a hemoglobin of 4.7. Called to see patient for shortness of breath s/p 2 units of blood transfusion. On exam, patient tells me she feels short of breath and just wants to go home. She is having conversational dyspnea with accessory muscle use. Denies chest pain. exam: neuro: alert and oriented to person, place and time, anxious lungs: breathing rate 22 with mild accessory muscle use, 89% on 2 liters of nasal cannula. bp 140/60, heart rate 70s, lungs with scattered rhonchi and rales. abdomen: soft, non distended upper ext: no edema lower ext: no edema cardiac: regular rate rhythm does not appear to be a transfusion reaction as she is afebrile and not hypotensive. appears volume overload in the setting of 2 units of prbc, ivf and compromised kidney function plan chest xray now albuterol x 1 now lasix 40mg x 1 now incentive spriometer monitor airway mauri lópez, abelardo [phone]
[2018-05-28 08:22] LABS: BASO % 0.7 % (0-2.0); EOS % 0.8 % (0-4.5); HEMATOCRIT 26.5 % (32.4-45.2); HEMOGLOBIN 8.9 GM/dL (10.7-15.3); INR 0.93 (0.83-1.09); MCH 29.9 pg (25.7-33.7); MCHC 33.7 g/dl (32.0-36.0); MEAN CELL VOLUME 88.8 fl (80-96); MEAN PLT VOLUME 7.5 fl (7.5-11.1); MONO % 5.5 % (3.8-10.2); PLATELET COUNT 421 K/MM3 (134-434); RBC 2.98 M/mm3 (3.60-5.2); RDW 14.4 % (11.6-15.6); WHITE BLOOD COUNT 14.3 K/mm3 (4.0-10.0)
[2018-05-28 08:32] LABS: ALBUMIN 3.2 g/dl (3.4-5.0); ALK PHOS 74 U/L (45-117); ANION GAP 13 MMOL/L (8-16); BILIRUBIN,TOTAL 0.6 mg/dL (0.2-1); CALCIUM 8.6 mg/dL (8.5-10.1); CHLORIDE 107 mmol/L (98-107); CO2 18 mmol/L (21-32); CREATININE 2.2 mg/dL (0.55-1.3); GLUCOSE,RANDOM 129 mg/dL (74-106); MAGNESIUM 2.7 mg/dL (1.8-2.4); PHOSPHOROUS 3.3 mg/dL (2.5-4.9); POTASSIUM 4.5 mmol/L (3.5-5.1); SGOT/AST 28 U/L (15-37); SGPT/ALT 17 U/L (13-61); SODIUM 138 mmol/L (136-145); TOT PROT 6.7 g/dl (6.4-8.2)
[2018-05-28 08:36] LABS: BLOOD UREA NITROGEN 119 mg/dL (7-18)
[2018-05-28] MEDS ORDERED: ESCITALOPRAM OXALATE 10 MG TABLET (FP) ONE (09:18)
[2018-05-28] MEDS: amLODIPine BESYLATE 10 MG TABLET (FP) PO SCH (09:20)
[2018-05-28] MEDS: SODIUM BICARBONATE 650 MG TABLET PO SCH (09:20)
[2018-05-28] MEDS: FERROUS SO4 325 MG TABLET (FP) PO SCH (09:20)
[2018-05-28] MEDS: predniSONE 5 MG TABLET (UD) PO SCH (09:20)
[2018-05-28] MEDS: ESCITALOPRAM OXALATE 20 MG TABLET (FP) PO SCH (09:20)
[2018-05-28] MEDS: RANITIDINE HCL 150 MG TABLET (FP) PO SCH (09:20)
[2018-05-28] MEDS: POLYETHYLENE GLYCOL 3350 119 GM BTL PO SCH (09:21)
[2018-05-28] MEDS ORDERED: PANTOPRAZOLE SODIUM 40 MG VIAL IVPUSH SCH (10:00)
--- NOTE | 2018-05-28 11:23 | CON.GI ---
Consult Consult Specialty:: GI Referred by:: Hospitalist service Reason for Consultation:: Anemia - History of Present Illness Chief Complaint: Patient complains only of cough History of Present Illness: 77F [place] for evaluation of anemia. Hgb 5.2 on admission. received 2 UPRBC. Hgb 8.9 this morning. Concern for volume overload after transfusions. Given lasix. Tarry stool noted in ED. Patient denies abdominal pain. Denies ever having had EGD/Colonoscopy. No family history of colorectal cancer. Home med list includes prednisone, iron and pepcid. Evaluated in 12/09 for anemia: at that time she declined procedures and did not want me to discuss things with her family members. 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 Cardio/Vascular: Yes: HTN, Hyperlipdemia Renal/: Yes: Renal Inusuff Psych: Yes: Depression Rheumatology: Yes: Other (arthritis) Endocrine: Yes: Hypothyroidism - Past Surgical History Past Surgical History: Yes: Appendectomy, Tonsillectomy - Alcohol/Substance Use Hx Alcohol Use: No History of Substance Use: reports: None - Smoking History Smoking history: Never smoked Have you smoked in the past 12 months: No Aproximately how many cigarettes per day: 5 If you are a former smoker, when did you quit?: 5 years ago - Social History Usual Living Arrangement: Detention ADL: Support Services History of Recent Travel: No Home Medications - Allergies Allergies/Adverse Reactions: Allergies Allergy/AdvReac Type Severity Reaction Status Date / Time No Known Allergies Allergy Verified 05/27/18 17:34 - Home Medications Home Medications: Ambulatory Orders Amlodipine Besylate [Norvasc -] 10 mg PO DAILY 05/27/18 Escitalopram Oxalate [Lexapro -] 20 mg PO DAILY 05/27/18 Famotidine [Pepcid] 20 mg PO 05/27/18 Ferrous Sulfate 325 mg PO 05/27/18 Hydralazine HCl 50 mg PO TID 05/27/18 Latanoprost 0.005% Eye Drops [Xalatan 0.005% Eye Drops -] 1 drop OP HS 05/27/18 Levothyroxine [Synthroid -] 100 mcg PO DAILY 05/27/18 Polyethylene Glycol 3350 [Miralax (For Daily Use) -] 17 gm PO DAILY 05/27/18 Prednisone 5 mg PO 05/27/18 Sodium Bicarbonate - 650 mg PO DAILY 05/27/18 Tamsulosin HCl [Flomax] 0.4 mg PO 05/27/18 Family Disease History - Family Disease History Family Disease History: Other: Father ( 70's: pancreatic Ca), Mother (: 70's: [place]), Brother (None), Sister (None), Daughter (3 daughters, 2 , ? causes) Review of Systems - Review of Systems Constitutional: denies: Chills Cardiovascular: denies: Chest Pain Respiratory: reports: Cough Gastrointestinal: reports: Melena. denies: Abdominal Pain, Nausea, Rectal Bleeding, Vomiting, Vomiting Blood Physical Exam-GI Vital Signs: Vital Signs Temperature 98.2 F 05/28/18 07:20 Pulse Rate 95 H 05/28/18 07:20 Respiratory Rate 20 05/28/18 07:20 Blood Pressure 152/73 05/28/18 07:20 O2 Sat by Pulse Oximetry (%) 92 L 05/28/18 08:13 Constitutional: Yes: Calm Eyes: No: Sclera Icterus Cardiovascular: Yes: Regular Rate and Rhythm. No: Murmur Respiratory: Yes: Rhonchi (bilaterally) Gastrointestinal Inspection: Yes: Scars (RLQ scar) ...Auscultate: Yes: Normoactive Bowel Sounds ...Palpate: Yes: Soft. No: Hepatomegaly, Splenomegaly, Tenderness ...Percussion: No: Tympanitic ...Rectal Exam: Yes: Other (Grey Inspector present: no external lesions, no masses, copious tarry black stool in rectal vault, tracely guaiac positive.) Edema: No (No LE edema) Neurological: Yes: Alert, Oriented (x person, place, time) Labs: CBC, BMP 05/28/18 07:00 05/28/18 07:00 INR, PTT INR 0.93 (0.83-1.09) 05/28/18 07:00 Problem List - Problems (1) Anemia Assessment/Plan: Profound anemia with melena on exam and elevated BUN out of proportion to creatinine. Suspect upper GI source in setting of chronic prednisone use and SSRI. Discussed upper endoscopy and colonoscopy with Ms. Colon to exclude potential sources of GI bleeding such as bleeding blood vessels, PUD, polyps or cancers of the intestinal tract. Discussed potential risks of the procedure like but not limited to bleeding, perforation requiring surgery to repair, infection, sedation medication effects all of which could be potentially life threatening. She has declined procedures at this time. when I asked if she wanted me to discuss things with any of her family members, she said no and that she just wants to go home. her nurse was present during my conversation. Ms. Colon carries a diagnosis of dementia, however she was alert and oriented on my exam. For now: NPO except meds Changed to PPI drip Monitor H/H and for active bleeding Left message to d/w Dr. Xiong Please clarify goals of care Code(s): D64.9 - ANEMIA, UNSPECIFIED Qualifiers: Anemia type: unspecified type Qualified Code(s): D64.9 - Anemia, unspecified
--- NOTE | 2018-05-28 11:37 | EKG ---
Test Reason : Blood Pressure : / mmHG Vent. Rate : 068 BPM Atrial Rate : 068 BPM P-R Int : 178 ms QRS Dur : 106 ms QT Int : 432 ms P-R-T Axes : 049 016 205 degrees QTc Int : 459 ms SINUS RHYTHM WITH PREMATURE ATRIAL COMPLEXES LEFT VENTRICULAR HYPERTROPHY WITH REPOLARIZATION ABNORMALITY ABNORMAL ECG WHEN COMPARED WITH ECG OF 10-MAR-2018 12:53, ST NOW DEPRESSED IN INFERIOR LEADS ST NOW DEPRESSED IN LATERAL LEADS T WAVE INVERSION NOW EVIDENT IN INFERIOR LEADS Confirmed by OPRTIA SPICER MD ([id number]) on 05/28/2018 11:36:29 AM Referred By: Confirmed By:PORTIA SPICER MD
--- NOTE | 2018-05-28 13:09 | PN ---
Progress Note, Physician History of Present Illness: admitted for anemia-gi bleed pt received prbc and after tranfusion had dyspnea - Current Medication List Current Medications: Active Medications Amlodipine Besylate (Norvasc -) 10 mg PO DAILY [facility] Last Admin: 05/28/18 09:20 Dose: 10 mg Escitalopram Oxalate (Lexapro -) 20 mg PO DAILY [facility] Last Admin: 05/28/18 09:20 Dose: 20 mg Ferrous Sulfate (Feosol -) 325 mg PO DAILY [facility] Last Admin: 05/28/18 09:20 Dose: 325 mg Hydralazine HCl (Apresoline -) 50 mg PO TID [facility] Last Admin: 05/28/18 06:33 Dose: 50 mg Pantoprazole Sodium 80 mg/ (Sodium Chloride) 100 mls @ 10 mls/hr IVPB Q10H [facility] Latanoprost (Xalatan 0.005% Eye Drops -) 1 drop OU [facility] Levothyroxine Sodium (Synthroid -) 100 mcg PO DAILY@0700 [facility] Last Admin: 05/28/18 06:33 Dose: 100 mcg Polyethylene Glycol (Miralax (For Daily Use) -) 17 gm PO DAILY [facility] Last Admin: 05/28/18 09:21 Dose: 17 gm Prednisone (Deltasone -) 5 mg PO DAILY [facility] Last Admin: 05/28/18 09:20 Dose: 5 mg Ranitidine HCl (Zantac -) 150 mg PO DAILY [facility] Last Admin: 05/28/18 09:20 Dose: 150 mg Sodium Bicarbonate (Sodium Bicarbonate -) 650 mg PO DAILY [facility] Last Admin: 05/28/18 09:20 Dose: 650 mg Tamsulosin HCl (Flomax -) 0.4 mg PO [facility] - Objective Vital Signs: Vital Signs Temperature 98.2 F 05/28/18 07:20 Pulse Rate 95 H 05/28/18 07:20 Respiratory Rate 20 05/28/18 07:20 Blood Pressure 152/73 05/28/18 07:20 O2 Sat by Pulse Oximetry (%) 92 L 05/28/18 09:00 Cardiovascular: Yes: Regular Rate and Rhythm Respiratory: Yes: Regular, CTA Bilaterally Gastrointestinal: Yes: Normal Bowel Sounds, Soft. No: Tenderness Labs: CBC, BMP 05/28/18 07:00 05/28/18 07:00 INR, PTT INR 0.93 (0.83-1.09) 05/28/18 07:00 Problem List - Problems (1) CHF (congestive heart failure) Assessment/Plan: After transfusion Given Iv Lasix--feels better echo cardio check labs Code(s): I50.9 - HEART FAILURE, UNSPECIFIED (2) GI bleed Assessment/Plan: - transfuse 2uPRBC as ordered - GI consult - npo - repeat CBC - protonix Code(s): K92.2 - GASTROINTESTINAL HEMORRHAGE, UNSPECIFIED Qualifiers: GI bleed type/associated pathology: unspecified gastrointestinal hemorrhage type Qualified Code(s): K92.2 - Gastrointestinal hemorrhage, unspecified (3) Anemia Assessment/Plan: as above Code(s): D64.9 - ANEMIA, UNSPECIFIED Qualifiers: Anemia type: unspecified type Qualified Code(s): D64.9 - Anemia, unspecified (4) HTN (hypertension) Assessment/Plan: - cont hydralazine, norvasc with strict hold parameters Code(s): I10 - ESSENTIAL (PRIMARY) HYPERTENSION (5) COPD (chronic obstructive pulmonary disease) Assessment/Plan: on nebs and prednisone Code(s): J44.9 - CHRONIC OBSTRUCTIVE PULMONARY DISEASE, UNSPECIFIED (6) CKD (chronic kidney disease) Assessment/Plan: - cont sodium bicarbonate - Cr within usual baseline, cont to monitor Code(s): N18.9 - CHRONIC KIDNEY DISEASE, UNSPECIFIED
[2018-05-28] MEDS ORDERED: PT OWN MED DRAWER 7, Y5N ONE (13:19)
[2018-05-28] MEDS: PANTOPRAZOLE SODIUM 80 MG in SODIUM CHLORIDE 100 ML IVPB SCH ×2 (13:29→22:35)
[2018-05-28 14:43] LABS: EOS % 0.1 % (0-4.5); HEMATOCRIT 26.6 % (32.4-45.2); HEMOGLOBIN 9.1 GM/dL (10.7-15.3); LYMPH % 4.4 % (8-40); MCH 30.2 pg (25.7-33.7); MCHC 34.2 g/dl (32.0-36.0); MEAN CELL VOLUME 88.3 fl (80-96); MEAN PLT VOLUME 7.6 fl (7.5-11.1); MONO % 2.4 % (3.8-10.2); NEUT % 92.1 % (42.8-82.8); PLATELET COUNT 398 K/MM3 (134-434); RBC 3.02 M/mm3 (3.60-5.2); RDW 14.4 % (11.6-15.6); WHITE BLOOD COUNT 10.4 K/mm3 (4.0-10.0)
[2018-05-28 15:16] LABS: ANISOCYTOSIS 1+; MACROCYTOSIS 1+; OVALOCYTE 1+; PLATELET ESTIMATE NORMAL
--- NOTE | 2018-05-28 16:58 | CON.CARD ---
Consult Consult Specialty:: Cardiology Reason for Consultation:: Cardiology - History of Present Illness Chief Complaint: Presently comfortable History of Present Illness: This is a 77 year old female with a PMH of Parkinson's dementia, HTN, and HLD, COPD, CKD, Depression, GERD, anemia, prior GI bleed and hyperkalemia. She was sent from [facility] for evaluation of severe anemia, HCT 15%. Presently she is comfortably lying flat with no distress. 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 Cardio/Vascular: Yes: HTN, Hyperlipdemia Renal/: Yes: Renal Inusuff Psych: Yes: Depression Rheumatology: Yes: Other (arthritis) Endocrine: Yes: Hypothyroidism - Past Surgical History Past Surgical History: Yes: Appendectomy, Tonsillectomy - Alcohol/Substance Use Hx Alcohol Use: No History of Substance Use: reports: None - Smoking History Smoking history: Never smoked Have you smoked in the past 12 months: No Aproximately how many cigarettes per day: 5 If you are a former smoker, when did you quit?: 5 years ago - Social History Usual Living Arrangement: [facility] ADL: Support Services History of Recent Travel: No Home Medications - Allergies Allergies/Adverse Reactions: Allergies Allergy/AdvReac Type Severity Reaction Status Date / Time No Known Allergies Allergy Verified 05/27/18 17:34 - Home Medications Home Medications: Ambulatory Orders Amlodipine Besylate [Norvasc -] 10 mg PO DAILY 05/27/18 Escitalopram Oxalate [Lexapro -] 20 mg PO DAILY 05/27/18 Famotidine [Pepcid] 20 mg PO 05/27/18 Ferrous Sulfate 325 mg PO 05/27/18 Hydralazine HCl 50 mg PO TID 05/27/18 Latanoprost 0.005% Eye Drops [Xalatan 0.005% Eye Drops -] 1 drop OP HS 05/27/18 Levothyroxine [Synthroid -] 100 mcg PO DAILY 05/27/18 Polyethylene Glycol 3350 [Miralax (For Daily Use) -] 17 gm PO DAILY 05/27/18 Prednisone 5 mg PO 05/27/18 Sodium Bicarbonate - 650 mg PO DAILY 05/27/18 Tamsulosin HCl [Flomax] 0.4 mg PO 05/27/18 Family Disease History - Family Disease History Family Disease History: Other: Father ( 70's: pancreatic Ca), Mother (: 70's: [place]), Brother (None), Sister (None), Daughter (3 daughters, 2 , ? causes) Vital Signs: Vital Signs Temperature 98.2 F 05/28/18 07:20 Pulse Rate 95 H 05/28/18 07:20 Respiratory Rate 20 05/28/18 07:20 Blood Pressure 152/73 05/28/18 07:20 O2 Sat by Pulse Oximetry (%) 92 L 05/28/18 09:00 Constitutional: Yes: No Distress Neck: Yes: Supple Respiratory: Yes: CTA Bilaterally Gastrointestinal: Yes: Normal Bowel Sounds Cardiovascular: Yes: Regular Rate and Rhythm (NL S1 S2 No MRHG) JVD: No Extremities: Yes: WNL Edema: No Neurological: Yes: Lethargy - Other Data Labs, Other Data: CBC, BMP 05/28/18 14:15 05/28/18 07:00 INR, PTT INR 0.93 (0.83-1.09) 05/28/18 07:00 Troponin, BNP 05/28/18 14:15 Troponin I 1.63 H* B-Natriuretic Peptide 93736.8 H Troponin, BNP 05/28/18 14:15 Troponin I 1.63 H* B-Natriuretic Peptide 33547.8 H Assessment/Plan 77 year old female with a PMH of Parkinson's dementia, HTN, and HLD, COPD, CKD, Depression, GERD, anemia, prior GI bleed and hyperkalemia. She was sent from [facility] for evaluation of severe anemia, HCT 15%. Presently she is comfortably lying flat with no distress. Troponin Level of 1.63 - likely related to demand ischemia secondary to severe anemia BNP 20,163 EKG 05/28/18 NSR at 62 BPM with normal intervals, normal axis, and LVH with strain Agree with PRBC Tx No cardiac contraindications to EGD or colonoscopy
[2018-05-28] MEDS: TAMSULOSIN HCL 0.4 MG CAP PO SCH (22:18)
[2018-05-28] MEDS: LATANOPROST 0.005% OPHTH SOLN 2.5ML BOTTLE OU SCH (23:00)
[2018-05-29] MEDS: LEVOTHYROXINE NA 100 MCG TABLET (FP) PO SCH (06:16)
[2018-05-29] MEDS: hydrALAZINE HCL 50 MG TABLET (FP) PO SCH ×3 (06:16→21:06)
[2018-05-29 07:59] LABS: BASO % 1.3 % (0-2.0); EOS % 3.2 % (0-4.5); HEMATOCRIT 24.5 % (32.4-45.2); HEMOGLOBIN 8.4 GM/dL (10.7-15.3); LYMPH % 12.5 % (8-40); MCHC 34.3 g/dl (32.0-36.0); MEAN CELL VOLUME 87.5 fl (80-96); MEAN PLT VOLUME 7.4 fl (7.5-11.1); PLATELET COUNT 379 K/MM3 (134-434); RBC 2.81 M/mm3 (3.60-5.2); RDW 14.9 % (11.6-15.6); WHITE BLOOD COUNT 7.8 K/mm3 (4.0-10.0)
[2018-05-29] MEDS ORDERED: ESCITALOPRAM OXALATE 10 MG TABLET (FP) ONE (08:44)
[2018-05-29] MEDS ORDERED: PT OWN MED DRAWER 7, Y5N ONE (08:45)
[2018-05-29 08:55] LABS: ALBUMIN 3.1 g/dl (3.4-5.0); ALK PHOS 67 U/L (45-117); ANION GAP 11 MMOL/L (8-16); BILIRUBIN,TOTAL 0.6 mg/dL (0.2-1); CALCIUM 8.7 mg/dL (8.5-10.1); CHLORIDE 105 mmol/L (98-107); CO2 22 mmol/L (21-32); CREATININE 2.3 mg/dL (0.55-1.3); GLUCOSE,RANDOM 76 mg/dL (74-106); POTASSIUM 4.4 mmol/L (3.5-5.1); SGOT/AST 20 U/L (15-37); SGPT/ALT 15 U/L (13-61); SODIUM 138 mmol/L (136-145); TOT PROT 6.2 g/dl (6.4-8.2)
[2018-05-29 08:59] LABS: BLOOD UREA NITROGEN 122 mg/dL (7-18)
[2018-05-29] MEDS: FERROUS SO4 325 MG TABLET (FP) PO SCH (09:05)
[2018-05-29] MEDS: predniSONE 5 MG TABLET (UD) PO SCH (09:05)
[2018-05-29] MEDS: amLODIPine BESYLATE 10 MG TABLET (FP) PO SCH (09:05)
[2018-05-29] MEDS: ESCITALOPRAM OXALATE 20 MG TABLET (FP) PO SCH (09:05)
[2018-05-29] MEDS: SODIUM BICARBONATE 650 MG TABLET PO SCH ×2 (09:05→22:14)
[2018-05-29] MEDS: RANITIDINE HCL 150 MG TABLET (FP) PO SCH (09:05)
[2018-05-29] MEDS: POLYETHYLENE GLYCOL 3350 119 GM BTL PO SCH (09:06)
[2018-05-29] MEDS: PANTOPRAZOLE SODIUM 80 MG in SODIUM CHLORIDE 100 ML IVPB SCH ×2 (10:32→21:15)
--- NOTE | 2018-05-29 12:19 | PN.GI ---
GI Progress Note Subjective: No acute events No overt bleeding - Objective Vital Signs: Vital Signs Temperature 98.0 F 05/29/18 07:55 Pulse Rate 65 05/29/18 07:55 Respiratory Rate 15 05/29/18 07:55 Blood Pressure 143/75 05/29/18 07:55 O2 Sat by Pulse Oximetry (%) 98 05/29/18 08:57 Constitutional: Calm Eyes: No: Sclera Icterus Cardiovascular: Yes: Regular Rate and Rhythm Respiratory: Yes: CTA Bilaterally Gastrointestinal Inspection: No: Distention ...Auscultate: Yes: Normoactive Bowel Sounds ...Percussion: No: Tympanitic Edema: No (No LE edema) Neurological: Yes: Alert Labs: CBC, BMP 05/29/18 06:45 05/29/18 06:45 INR, PTT INR 0.93 (0.83-1.09) 05/28/18 07:00 Problem List - Problems (1) Anemia Assessment/Plan: Blood loss from suspected UGIB. Patient refusing procedures Carries h/o dementia however alert and oriented and did not want me discussing things with her daughter. Will need clarification re: capacity Monitor H/H Protonix drip Clears Monitor magnesium while on PPI drip Code(s): D64.9 - ANEMIA, UNSPECIFIED Qualifiers: Anemia type: unspecified type Qualified Code(s): D64.9 - Anemia, unspecified
--- NOTE | 2018-05-29 12:32 | PN ---
Progress Note, Physician - Current Medication List Current Medications: Active Medications Amlodipine Besylate (Norvasc -) 10 mg PO DAILY [facility] Last Admin: 05/29/18 09:05 Dose: 10 mg Escitalopram Oxalate (Lexapro -) 20 mg PO DAILY [facility] Last Admin: 05/29/18 09:05 Dose: 20 mg Ferrous Sulfate (Feosol -) 325 mg PO DAILY [facility] Last Admin: 05/29/18 09:05 Dose: 325 mg Hydralazine HCl (Apresoline -) 50 mg PO TID [facility] Last Admin: 05/29/18 06:16 Dose: 50 mg Pantoprazole Sodium 80 mg/ (Sodium Chloride) 100 mls @ 10 mls/hr IVPB Q10H [facility] Last Admin: 05/29/18 10:32 Dose: 10 mls/hr Latanoprost (Xalatan 0.005% Eye Drops -) 1 drop OU HS [facility] Last Admin: 05/28/18 23:00 Dose: 1 drop Levothyroxine Sodium (Synthroid -) 100 mcg PO DAILY@0700 [facility] Last Admin: 05/29/18 06:16 Dose: 100 mcg Polyethylene Glycol (Miralax (For Daily Use) -) 17 gm PO DAILY [facility] Last Admin: 05/29/18 09:06 Dose: 17 gm Prednisone (Deltasone -) 5 mg PO DAILY [facility] Last Admin: 05/29/18 09:05 Dose: 5 mg Ranitidine HCl (Zantac -) 150 mg PO DAILY [facility] Last Admin: 05/29/18 09:05 Dose: 150 mg Sodium Bicarbonate (Sodium Bicarbonate -) 650 mg PO DAILY [facility] Last Admin: 05/29/18 09:05 Dose: 650 mg Tamsulosin HCl (Flomax -) 0.4 mg PO HS [facility] Last Admin: 05/28/18 22:18 Dose: 0.4 mg - Objective Vital Signs: Vital Signs Temperature 98.0 F 05/29/18 07:55 Pulse Rate 65 05/29/18 07:55 Respiratory Rate 15 05/29/18 07:55 Blood Pressure 143/75 05/29/18 07:55 O2 Sat by Pulse Oximetry (%) 98 05/29/18 08:57 Cardiovascular: Yes: S1, S2 Respiratory: Yes: Regular, CTA Bilaterally Gastrointestinal: Yes: Normal Bowel Sounds, Soft Labs: CBC, BMP 05/29/18 06:45 05/29/18 06:45 INR, PTT INR 0.93 (0.83-1.09) 05/28/18 07:00 Problem List - Problems (1) CHF (congestive heart failure) Assessment/Plan: After transfusion Given Iv Lasix--feels better echo cardio check labs Code(s): I50.9 - HEART FAILURE, UNSPECIFIED (2) GI bleed Assessment/Plan: - transfuse 2uPRBC as ordered - GI consult - npo - repeat CBC - protonix Code(s): K92.2 - GASTROINTESTINAL HEMORRHAGE, UNSPECIFIED Qualifiers: GI bleed type/associated pathology: unspecified gastrointestinal hemorrhage type Qualified Code(s): K92.2 - Gastrointestinal hemorrhage, unspecified (3) Anemia Assessment/Plan: as above Code(s): D64.9 - ANEMIA, UNSPECIFIED Qualifiers: Anemia type: unspecified type Qualified Code(s): D64.9 - Anemia, unspecified (4) HTN (hypertension) Assessment/Plan: - cont hydralazine, norvasc with strict hold parameters Code(s): I10 - ESSENTIAL (PRIMARY) HYPERTENSION (5) COPD (chronic obstructive pulmonary disease) Assessment/Plan: on nebs and prednisone Code(s): J44.9 - CHRONIC OBSTRUCTIVE PULMONARY DISEASE, UNSPECIFIED (6) CKD (chronic kidney disease) Assessment/Plan: - cont sodium bicarbonate - Cr within usual baseline, cont to monitor Code(s): N18.9 - CHRONIC KIDNEY DISEASE, UNSPECIFIED
--- NOTE | 2018-05-29 17:58 | EKG ---
Test Reason : Blood Pressure : / mmHG Vent. Rate : 069 BPM Atrial Rate : 069 BPM P-R Int : 172 ms QRS Dur : 108 ms QT Int : 422 ms P-R-T Axes : 052 017 217 degrees QTc Int : 452 ms SINUS RHYTHM WITH MARKED SINUS ARRHYTHMIA LEFT VENTRICULAR HYPERTROPHY WITH REPOLARIZATION ABNORMALITY ABNORMAL ECG WHEN COMPARED WITH ECG OF 27-MAY-2018 18:55, PREMATURE ATRIAL COMPLEXES ARE NO LONGER PRESENT T WAVE AMPLITUDE HAS INCREASED IN ANTERIOR LEADS Confirmed by PORTIA SPICER MD ([id number]) on 05/29/2018 5:58:16 PM Referred By: Sravan HENDRICKS Confirmed By:PORTIA SPICER MD
[2018-05-29] MEDS: TAMSULOSIN HCL 0.4 MG CAP PO SCH (21:06)
[2018-05-29] MEDS: LATANOPROST 0.005% OPHTH SOLN 2.5ML BOTTLE OU SCH (21:06)
--- NOTE | 2018-05-29 22:06 | CON.NEP ---
Consult Consult Specialty:: Nephrology Referred by:: Dr Xiong Reason for Consultation:: CKD - History of Present Illness History of Present Illness: 77 yo female from SN[facility] referrd to [facility] for severe anemia with Hgb of 5.2 . Pt was transfused and seen by GI for evaluation. EGD recommended but pt refusing. Asked to see pt for azotemia Serum Cr at baseline yet BUN higher than usual on steroids and likely recent GIB Pt has a H/O dementia thus history unreliable and in fact she is unaware of any CKD which she is unaware of. 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: Dementia, Parkinson's Cardio/Vascular: Yes: HTN, Hyperlipdemia Renal/: Yes: Renal Inusuff Psych: Yes: Depression Rheumatology: Yes: Other (arthritis) Endocrine: Yes: Hypothyroidism - Past Surgical History Past Surgical History: Yes: Appendectomy, Tonsillectomy - Alcohol/Substance Use Hx Alcohol Use: No History of Substance Use: reports: None - Smoking History Smoking history: Never smoked Have you smoked in the past 12 months: No Aproximately how many cigarettes per day: 5 If you are a former smoker, when did you quit?: 5 years ago - Social History Usual Living Arrangement: Longterm ADL: Support Services History of Recent Travel: No Home Medications - Allergies Allergies/Adverse Reactions: Allergies Allergy/AdvReac Type Severity Reaction Status Date / Time No Known Allergies Allergy Verified 05/27/18 17:34 - Home Medications Home Medications: Ambulatory Orders Amlodipine Besylate [Norvasc -] 10 mg PO DAILY 05/27/18 Escitalopram Oxalate [Lexapro -] 20 mg PO DAILY 05/27/18 Famotidine [Pepcid] 20 mg PO 05/27/18 Ferrous Sulfate 325 mg PO 05/27/18 Hydralazine HCl 50 mg PO TID 05/27/18 Latanoprost 0.005% Eye Drops [Xalatan 0.005% Eye Drops -] 1 drop OP HS 05/27/18 Levothyroxine [Synthroid -] 100 mcg PO DAILY 05/27/18 Polyethylene Glycol 3350 [Miralax (For Daily Use) -] 17 gm PO DAILY 05/27/18 Prednisone 5 mg PO 05/27/18 Sodium Bicarbonate - 650 mg PO DAILY 05/27/18 Tamsulosin HCl [Flomax] 0.4 mg PO 05/27/18 Family Disease History - Family Disease History Family Disease History: Other: Father ( 70's: pancreatic Ca), Mother (: 70's: [place]), Brother (None), Sister (None), Daughter (3 daughters, 2 , ? causes) Nephrology Consult - Height Height: 5 ft 2 in - Weight Weight: 130 lb - BMI Body Mass Index (BMI): 23.8 - Lab Results CBC,BMP: CBC, BMP 05/29/18 06:45 05/29/18 06:45 Laboratory Tests 05/27/18 05/28/18 05/29/18 18:25 07:00 06:45 PT with INR 11.00 INR 0.93 Calcium 8.7 Total Bilirubin 0.6 AST 20 ALT 15 Alkaline Phosphatase 67 Troponin I 1.23 H* Total Protein 6.2 L Albumin 3.1 L Stool Occult Blood Positive Anion Gap: Anion Gap Anion Gap 11 MMOL/L (8-16) 05/29/18 06:45 - Imaging Chest X-ray: Report Reviewed Ultrasound: Report Reviewed, Image Reviewed (Left kidney not seen), Other EKG: Other (Sinus arrhythmis with LVH) - Physical Examination Vital Signs: Vital Signs Temperature 98.0 F 05/29/18 07:55 Pulse Rate 65 05/29/18 07:55 Respiratory Rate 15 05/29/18 07:55 Blood Pressure 143/75 05/29/18 07:55 O2 Sat by Pulse Oximetry (%) 98 05/29/18 08:57 Cardiovascular: Yes: S1, S2. No: JVD, Murmur, Rub, S3 Respiratory: Yes: Other (Occasional rhonchi) Renal/: No: Bladder Distention Edema: No Neurological: Yes: Other (Alert and cooperative) Assessment/Plan Impression CKD with high BUN to Cr ratio in pt on steroids and recent GIB Severe anemia with Guaiac + stools with H/O GERD and GIBs in the past HTN Elevated Troponins attributed to demand ischemia COPD Hypothyroidism PD Dementia Plan Endoscopy if and when pt or HCP give consent I am reluctant to start IVF since CXR showed and effusion UA Renal and U Bladder sonogram Monitor Hgb and BMPs Avoid nephrotoxic agents including NSAIDs IV contrast etc Increase NaHCO3 Rpt labs in am Pt apparently had a renal bx in the Feb 2018 but I could not locate the result- Will Discuss with Dr John who is returning tomorrow Thank You Will Follow Dr Lam
[2018-05-30] MEDS: PANTOPRAZOLE SODIUM 80 MG in SODIUM CHLORIDE 100 ML IVPB SCH ×4 (00:34→23:48)
[2018-05-30] MEDS: LEVOTHYROXINE NA 100 MCG TABLET (FP) PO SCH (06:05)
[2018-05-30] MEDS: hydrALAZINE HCL 50 MG TABLET (FP) PO SCH ×3 (06:05→21:36)
[2018-05-30] MEDS ORDERED: ESCITALOPRAM OXALATE 10 MG TABLET (FP) ONE (10:09)
[2018-05-30] MEDS ORDERED: PT OWN MED DRAWER 7, Y5N ONE (10:10)
[2018-05-30] MEDS: SODIUM BICARBONATE 650 MG TABLET PO SCH ×2 (10:15→21:36)
[2018-05-30] MEDS: RANITIDINE HCL 150 MG TABLET (FP) PO SCH (10:15)
[2018-05-30] MEDS: predniSONE 5 MG TABLET (UD) PO SCH (10:15)
[2018-05-30] MEDS: ESCITALOPRAM OXALATE 20 MG TABLET (FP) PO SCH (10:15)
[2018-05-30] MEDS: FERROUS SO4 325 MG TABLET (FP) PO SCH (10:15)
[2018-05-30] MEDS: amLODIPine BESYLATE 10 MG TABLET (FP) PO SCH (10:15)
[2018-05-30] MEDS: POLYETHYLENE GLYCOL 3350 119 GM BTL PO SCH (10:18)
--- NOTE | 2018-05-30 11:42 | PN ---
Progress Note, Physician Chief Complaint: patient seen and examined awaitng psych eval for capacity to make decision - Current Medication List Current Medications: Active Medications Amlodipine Besylate (Norvasc -) 10 mg PO DAILY [facility] Last Admin: 05/30/18 10:15 Dose: 10 mg Escitalopram Oxalate (Lexapro -) 20 mg PO DAILY [facility] Last Admin: 05/30/18 10:15 Dose: 20 mg Ferrous Sulfate (Feosol -) 325 mg PO DAILY [facility] Last Admin: 05/30/18 10:15 Dose: 325 mg Hydralazine HCl (Apresoline -) 50 mg PO TID [facility] Last Admin: 05/30/18 06:05 Dose: 50 mg Pantoprazole Sodium 80 mg/ (Sodium Chloride) 100 mls @ 10 mls/hr IVPB Q10H [facility] Last Admin: 05/30/18 05:48 Dose: Not Given Latanoprost (Xalatan 0.005% Eye Drops -) 1 drop OU HS [facility] Last Admin: 05/29/18 21:06 Dose: 1 drop Levothyroxine Sodium (Synthroid -) 100 mcg PO DAILY@0700 [facility] Last Admin: 05/30/18 06:05 Dose: 100 mcg Polyethylene Glycol (Miralax (For Daily Use) -) 17 gm PO DAILY [facility] Last Admin: 05/30/18 10:18 Dose: Not Given Prednisone (Deltasone -) 5 mg PO DAILY [facility] Last Admin: 05/30/18 10:15 Dose: 5 mg Ranitidine HCl (Zantac -) 150 mg PO DAILY [facility] Last Admin: 05/30/18 10:15 Dose: 150 mg Sodium Bicarbonate (Sodium Bicarbonate -) 1,300 mg PO BID [facility] Last Admin: 05/30/18 10:15 Dose: 1,300 mg Tamsulosin HCl (Flomax -) 0.4 mg PO HS [facility] Last Admin: 05/29/18 21:06 Dose: 0.4 mg - Objective Vital Signs: Vital Signs Temperature 98.0 F 05/30/18 10:00 Pulse Rate 57 L 05/30/18 10:00 Respiratory Rate 20 05/30/18 10:00 Blood Pressure 139/50 L 05/30/18 10:00 O2 Sat by Pulse Oximetry (%) 97 05/29/18 22:00 Constitutional: Yes: Calm Cardiovascular: Yes: Regular Rate and Rhythm, S1, S2 Respiratory: Yes: CTA Bilaterally Gastrointestinal: Yes: Normal Bowel Sounds, Soft Edema: No Neurological: Yes: Alert Labs: CBC, BMP 05/29/18 06:45 05/29/18 06:45 INR, PTT INR 0.93 (0.83-1.09) 05/28/18 07:00 Problem List - Problems (1) Anemia Assessment/Plan: GI on board PPI drip clears diet stool occult positive monitor cbc s/p PRBC transfusion psych for capacity evalauation Code(s): D64.9 - ANEMIA, UNSPECIFIED Qualifiers: Anemia type: unspecified type Qualified Code(s): D64.9 - Anemia, unspecified (2) Hypothyroid Assessment/Plan: tsh noted inc dose to 112 mcg from 100 Code(s): E03.9 - HYPOTHYROIDISM, UNSPECIFIED (3) GI bleed Assessment/Plan: see problem 1 Code(s): K92.2 - GASTROINTESTINAL HEMORRHAGE, UNSPECIFIED Qualifiers: GI bleed type/associated pathology: unspecified gastrointestinal hemorrhage type Qualified Code(s): K92.2 - Gastrointestinal hemorrhage, unspecified (4) CKD (chronic kidney disease) Assessment/Plan: renal on board elevated bun maybe related to stool occult positive Code(s): N18.9 - CHRONIC KIDNEY DISEASE, UNSPECIFIED
[2018-05-30] MEDS ORDERED: LEVOTHYROXINE NA 100 MCG TABLET (FP) PO SCH (11:45)
--- NOTE | 2018-05-30 12:17 | PN ---
Progress Note (short form) - Note Progress Note: Patient seen and examined Labs reviewed Patient reports feeling well. Denies abdominal pain. Cannot remember when last bm was -- maybe yesterday or the day before. Vital Signs Temp 98.0 F 05/30/18 10:00 Pulse 57 L 05/30/18 10:00 Resp 20 05/30/18 10:00 BP 139/50 L 05/30/18 10:00 Pulse Ox 97 05/29/18 22:00 NAD Abd soft NT ND CBC, BMP 05/29/18 06:45 05/29/18 06:45 No labs today Impression is suspected UGIB Continue PPI drip Trend hgb Await psych eval for determination of capacity to make medical decisions, refuse endoscopy, etc
--- NOTE | 2018-05-30 14:26 | CON.PSY ---
Psychiatry Consult Chief Complaint: 77 year old female admitted from [facility]> apetient has a history of Depression and is on Lexapro 20 mfg po od. Patient is alert, pleasant, denies ant depression and wanr=ts to go back to [facility]. - Previous Psychiatric Treatment Outpatient: Less than 6 mos ago Inpatient: None - Previous Substance Abuse Treatment Outpatient: None - Reason for Previous Treatment Reason for Previous Treatment: Major Depression - Current Medications Current Medications: Active Medications Amlodipine Besylate (Norvasc -) 10 mg PO DAILY [facility] Last Admin: 05/30/18 10:15 Dose: 10 mg Escitalopram Oxalate (Lexapro -) 20 mg PO DAILY [facility] Last Admin: 05/30/18 10:15 Dose: 20 mg Ferrous Sulfate (Feosol -) 325 mg PO DAILY [facility] Last Admin: 05/30/18 10:15 Dose: 325 mg Hydralazine HCl (Apresoline -) 50 mg PO TID [facility] Last Admin: 05/30/18 06:05 Dose: 50 mg Pantoprazole Sodium 80 mg/ (Sodium Chloride) 100 mls @ 10 mls/hr IVPB Q10H [facility] Last Admin: 05/30/18 05:48 Dose: Not Given Latanoprost (Xalatan 0.005% Eye Drops -) 1 drop OU [facility] Last Admin: 05/29/18 21:06 Dose: 1 drop Levothyroxine Sodium (Synthroid -) 112 mcg PO DAILY@0700 [facility] Polyethylene Glycol (Miralax (For Daily Use) -) 17 gm PO DAILY [facility] Last Admin: 05/30/18 10:18 Dose: Not Given Prednisone (Deltasone -) 5 mg PO DAILY [facility] Last Admin: 05/30/18 10:15 Dose: 5 mg Ranitidine HCl (Zantac -) 150 mg PO DAILY [facility] Last Admin: 05/30/18 10:15 Dose: 150 mg Sodium Bicarbonate (Sodium Bicarbonate -) 1,300 mg PO BID [facility] Last Admin: 05/30/18 10:15 Dose: 1,300 mg Tamsulosin HCl (Flomax -) 0.4 mg PO HS [facility] Last Admin: 05/29/18 21:06 Dose: 0.4 mg - Allergies Allergies: Allergies Allergy/AdvReac Type Severity Reaction Status Date / Time No Known Allergies Allergy Verified 05/27/18 17:34 - Current Living Status Usual Living Arrangement: Group Home - Current Mental Status Evaluation Appearance: Well Groomed Attitude: Cooperative - Affect Affect: Constrictive Appropriateness: Appropriate to Content - Mood Mood: Euthymic - Speech/Language Expressive: Coherent - Psychomotor Activity Psychomotor Activity: Normal - Thought Process Thought Process: Intact - Thought Content Hallucinations: Absent Delusions: Absent - Self Perception Self Perception: No Impairment - Cognition Attention: Alert Orientation: Time Memory, Immediate Recall: Intact Memory, Short Term: 2/3 Memory, Remote with Promptin/3 - Abstraction Proverb Interpretation: Intact Judgement: Intact - Insight Insight: Intact - Impulse Control Impulse Control: Good Control - Suicidal Ideation Suicidal Ideation: No - Homicidal Ideation Homicidal Ideation: No Assessment/Plan 10 Continue with Lexapro 20 mg po od.
--- NOTE | 2018-05-30 14:30 | PN ---
Progress Note, Physician History of Present Illness: Pt seen and examined at bedside. She is awake and alert. She denies shortness of breath. - Current Medication List Current Medications: Active Medications Amlodipine Besylate (Norvasc -) 10 mg PO DAILY [facility] Last Admin: 05/30/18 10:15 Dose: 10 mg Escitalopram Oxalate (Lexapro -) 20 mg PO DAILY [facility] Last Admin: 05/30/18 10:15 Dose: 20 mg Ferrous Sulfate (Feosol -) 325 mg PO DAILY [facility] Last Admin: 05/30/18 10:15 Dose: 325 mg Hydralazine HCl (Apresoline -) 50 mg PO TID [facility] Last Admin: 05/30/18 06:05 Dose: 50 mg Pantoprazole Sodium 80 mg/ (Sodium Chloride) 100 mls @ 10 mls/hr IVPB Q10H [facility] Last Admin: 05/30/18 05:48 Dose: Not Given Latanoprost (Xalatan 0.005% Eye Drops -) 1 drop OU HS [facility] Last Admin: 05/29/18 21:06 Dose: 1 drop Levothyroxine Sodium (Synthroid -) 112 mcg PO DAILY@0700 [facility] Polyethylene Glycol (Miralax (For Daily Use) -) 17 gm PO DAILY [facility] Last Admin: 05/30/18 10:18 Dose: Not Given Prednisone (Deltasone -) 5 mg PO DAILY [facility] Last Admin: 05/30/18 10:15 Dose: 5 mg Ranitidine HCl (Zantac -) 150 mg PO DAILY [facility] Last Admin: 05/30/18 10:15 Dose: 150 mg Sodium Bicarbonate (Sodium Bicarbonate -) 1,300 mg PO BID [facility] Last Admin: 05/30/18 10:15 Dose: 1,300 mg Tamsulosin HCl (Flomax -) 0.4 mg PO HS [facility] Last Admin: 05/29/18 21:06 Dose: 0.4 mg - Objective Vital Signs: Vital Signs Temperature 98.0 F 05/30/18 10:00 Pulse Rate 57 L 05/30/18 10:00 Respiratory Rate 20 05/30/18 10:00 Blood Pressure 139/50 L 05/30/18 10:00 O2 Sat by Pulse Oximetry (%) 99 05/30/18 09:00 Constitutional: Yes: Calm Eyes: Yes: Conjunctiva Clear HENT: Yes: Atraumatic Cardiovascular: Yes: S1, S2 Respiratory: Yes: CTA Bilaterally, On Nasal O2 Gastrointestinal: Yes: Soft Genitourinary: Yes: WNL Musculoskeletal: Yes: WNL Edema: No Neurological: Yes: Oriented Psychiatric: Yes: Oriented Labs: CBC, BMP 05/29/18 06:45 05/29/18 06:45 INR, PTT INR 0.93 (0.83-1.09) 05/28/18 07:00 Assessment/Plan Current Medications Generic Name Dose Route Start Last Admin Trade Name Armani PRN Reason Stop Dose Admin Amlodipine Besylate 10 mg 05/28/18 10:00 05/30/18 10:15 Norvasc - PO 10 mg DAILY [facility] Administration Escitalopram Oxalate 20 mg 05/28/18 10:00 05/30/18 10:15 Lexapro - PO 20 mg DAILY [facility] Administration Ferrous Sulfate 325 mg 05/28/18 10:00 05/30/18 10:15 Feosol - PO 325 mg DAILY [facility] Administration Hydralazine HCl 50 mg 05/28/18 06:00 05/30/18 06:05 Apresoline - PO 50 mg TID [facility] Administration Pantoprazole Sodium 80 mg/ 100 mls @ 10 mls/hr 05/28/18 12:30 05/30/18 05:48 Sodium Chloride IVPB Not Given Q10H [facility] 8 MG/HR Latanoprost 1 drop 05/28/18 22:00 05/29/18 21:06 Xalatan 0.005% Eye Drops - OU 1 drop HS [facility] Administration Levothyroxine Sodium 112 mcg 05/30/18 11:45 Synthroid - PO DAILY@0700 [facility] Polyethylene Glycol 17 gm 05/28/18 10:00 05/30/18 10:18 Miralax (For Daily Use) - PO Not Given DAILY [facility] Prednisone 5 mg 05/28/18 10:00 05/30/18 10:15 Deltasone - PO 5 mg DAILY [facility] Administration Ranitidine HCl 150 mg 05/28/18 10:00 05/30/18 10:15 Zantac - PO 150 mg DAILY [facility] Administration Sodium Bicarbonate 1,300 mg 05/29/18 22:00 05/30/18 10:15 Sodium Bicarbonate - PO 1,300 mg BID [facility] Administration Tamsulosin HCl 0.4 mg 05/28/18 22:00 05/29/18 21:06 Flomax - PO 0.4 mg HS [facility] Administration Impression 1. CKD 2. right renal cyst 3. toe ulcer 4. hypothryoid 5. dementia 6. parkinsons 7. HTN 8. gout 9. uremia 10. anemia Plan - monitor renal function - gi bleed and steroids can contribute to elevated gun - avoid nsaids - gi follow up - monitor bun - renal diet
--- NOTE | 2018-05-30 14:35 | PN ---
Progress Note, Physician Chief Complaint: No complaints Wants to go home Now agreeing to GI work up History of Present Illness: 77 year old female with a PMH of Parkinson's dementia, HTN, and HLD, COPD, CKD, Depression, GERD, anemia, prior GI bleed and hyperkalemia. She was sent from [facility] for evaluation of severe anemia, HCT 15%. Presently she is comfortably lying flat with no distress. - Current Medication List Current Medications: Active Medications Amlodipine Besylate (Norvasc -) 10 mg PO DAILY [facility] Last Admin: 05/30/18 10:15 Dose: 10 mg Escitalopram Oxalate (Lexapro -) 20 mg PO DAILY [facility] Last Admin: 05/30/18 10:15 Dose: 20 mg Ferrous Sulfate (Feosol -) 325 mg PO DAILY [facility] Last Admin: 05/30/18 10:15 Dose: 325 mg Hydralazine HCl (Apresoline -) 50 mg PO TID [facility] Last Admin: 05/30/18 06:05 Dose: 50 mg Pantoprazole Sodium 80 mg/ (Sodium Chloride) 100 mls @ 10 mls/hr IVPB Q10H [facility] Last Admin: 05/30/18 05:48 Dose: Not Given Latanoprost (Xalatan 0.005% Eye Drops -) 1 drop OU HS [facility] Last Admin: 05/29/18 21:06 Dose: 1 drop Levothyroxine Sodium (Synthroid -) 112 mcg PO DAILY@0700 [facility] Polyethylene Glycol (Miralax (For Daily Use) -) 17 gm PO DAILY [facility] Last Admin: 05/30/18 10:18 Dose: Not Given Prednisone (Deltasone -) 5 mg PO DAILY [facility] Last Admin: 05/30/18 10:15 Dose: 5 mg Ranitidine HCl (Zantac -) 150 mg PO DAILY [facility] Last Admin: 05/30/18 10:15 Dose: 150 mg Sodium Bicarbonate (Sodium Bicarbonate -) 1,300 mg PO BID [facility] Last Admin: 05/30/18 10:15 Dose: 1,300 mg Tamsulosin HCl (Flomax -) 0.4 mg PO HS [facility] Last Admin: 05/29/18 21:06 Dose: 0.4 mg - Objective Vital Signs: Vital Signs Temperature 98.0 F 05/30/18 10:00 Pulse Rate 57 L 04/08/19 10:00 Respiratory Rate 20 05/30/18 10:00 Blood Pressure 139/50 L 05/30/18 10:00 O2 Sat by Pulse Oximetry (%) 99 05/30/18 09:00 Constitutional: Yes: No Distress Neck: Yes: Supple Cardiovascular: Yes: Regular Rate and Rhythm, S1, S2. No: JVD Respiratory: Yes: CTA Bilaterally Gastrointestinal: Yes: Soft Edema: No Labs: CBC, BMP 05/29/18 06:45 05/29/18 06:45 INR, PTT INR 0.93 (0.83-1.09) 05/28/18 07:00 Assessment/Plan 77 year old female with a PMH of Parkinson's dementia, HTN, and HLD, COPD, CKD, Depression, GERD, anemia, prior GI bleed and hyperkalemia. She was sent from [facility] for evaluation of severe anemia Hgb 5.2 with bun 122 Presently she is comfortably lying flat with no distress. Troponin Level of 1.63 now down to 1.23 - likely related to demand ischemia secondary to severe anemia BNP 20,163 EKG 05/28/18 NSR at 62 BPM with normal intervals, normal axis, and LVH with strain (unchanged from prior ekgs) S/p pRBC's No cardiac contraindications to EGD or colonoscopy
--- NOTE | 2018-05-30 14:40 | ECHO ---
Name: EVIE GUAMAN Exam:Adult Echocardiogram Study Date: 05/30/2018 07:50 AM Age: 77 yrs Reason For Study: CHF Height: 62 in Weight: 130 lb BSA: 1.6 m2 MMode/2D Measurements & Calculations IVSd: 1.0 cm Ao root diam: 2.6 cm LVIDd: 4.3 cm LA dimension: 3.5 cm LVIDs: 2.7 cm LVPWd: 0.91 cm EDV(Teich): 83.4 ml LVOT diam: 2.0 cm ESV(Teich): 26.5 ml LAV (MOD-bp): 75.6 ml Doppler Measurements & Calculations MV E max celestine: 142.0 cm/sec Ao V2 max: 141.2 cm/sec MV A max celestine: 112.0 cm/sec Ao max P.0 mmHg MV E/A: 1.3 MV dec time: 0.27 sec MARCELA(V,D): 1.9 cm2 LV V1 max P.0 mmHg MR max celestine: 587.7 cm/sec LV V1 max: 86.6 cm/sec MR max P.2 mmHg TR max celestine: 314.4 cm/sec PA V2 max: 99.1 cm/sec TR max P.8 mmHg PA max P.9 mmHg Med Peak E' Celestine: 4.7 cm/sec Med E/e': 30.4 Lat Peak E' Celestine: 3.7 cm/sec Lat E/e': 38.4 Procedure A complete two-dimensional transthoracic echocardiogram was performed (2D, M-mode, Doppler and color flow Doppler). Left Ventricle The left ventricle is normal in size. Left ventricular systolic function is normal. Ejection Fraction = 65- 70%. Diastolic dysfunction, Grade II (pseudonormalization pattern). No regional wall motion abnormali ties noted. Right Ventricle The right ventricle is normal size. The right ventricular systolic function is normal. Atria The left atrium is moderately dilated. LA volume index is 48 ml/m2. Right atrial size is normal. Mitral Valve There is mild mitral annular calcification. Posterior mitral valve leaflet appears tethered. There is moderate to severe mitral regurgitation. The mitral regurgitant jet is eccentrically directed. Tricuspid Valve The tricuspid valve is normal in structure and function. There is moderate tricuspid regurgitation. P ulmonary artery systolic pressure is at least 54 mmHg assuming RA pressure of 8 mmHg (dilated HAYES with >50% co llapse). Aortic Valve The aortic valve is normal in structure and function. Mild aortic regurgitation. Pulmonic Valve The pulmonic valve is not well visualized. Great Vessels The aortic root is normal size. Pericardium/Pleura There is no pericardial effusion. There is a pleural effusion present. Interpretation Summary The left ventricle is normal in size. Left ventricular systolic function is normal. No regional wall motion abnormalities noted. Ejection Fraction = 65-70%. Diastolic dysfunction, Grade II (pseudonormalization pattern). The right ventricular systolic function is normal. The left atrium is moderately dilated. Right atrial size is normal. There is mild mitral annular calcification. Posterior mitral valve leaflet appears tethered There is moderate to severe mitral regurgitation. The mitral regurgitant jet is eccentrically directed. There is moderate tricuspid regurgitation. Pulmonary artery systolic pressure is at least 54 mmHg assuming RA pressure of 8 mmHg (dilated HAYES wi th >50% collapse) Mild aortic regurgitation. There is no pericardial effusion. There is a pleural effusion present. Previous study is not available for comparison Aman Okeefe MD 05/30/2018 02:39 PM
[2018-05-30] MEDS: TAMSULOSIN HCL 0.4 MG CAP PO SCH (21:36)
[2018-05-30] MEDS: LATANOPROST 0.005% OPHTH SOLN 2.5ML BOTTLE OU SCH (22:20)
[2018-05-31] MEDS: hydrALAZINE HCL 50 MG TABLET (FP) PO SCH ×3 (05:59→21:15)
[2018-05-31] MEDS: LEVOTHYROXINE NA 112 MCG TABLET (FP) PO SCH (05:59)
[2018-05-31 07:19] LABS: BASO % 0.9 % (0-2.0); EOS % 3.6 % (0-4.5); HEMATOCRIT 23.9 % (32.4-45.2); HEMOGLOBIN 8.4 GM/dL (10.7-15.3); LYMPH % 14.9 % (8-40); MCH 31.1 pg (25.7-33.7); MEAN CELL VOLUME 88.8 fl (80-96); MEAN PLT VOLUME 6.9 fl (7.5-11.1); NEUT % 73.6 % (42.8-82.8); PLATELET COUNT 422 K/MM3 (134-434); RBC 2.69 M/mm3 (3.60-5.2); RDW 15.2 % (11.6-15.6); WHITE BLOOD COUNT 6.9 K/mm3 (4.0-10.0)
[2018-05-31 07:54] LABS: ALK PHOS 70 U/L (45-117); ANION GAP 9 MMOL/L (8-16); BILIRUBIN,TOTAL 0.4 mg/dL (0.2-1); BLOOD UREA NITROGEN 94 mg/dL (7-18); CALCIUM 8.7 mg/dL (8.5-10.1); CHLORIDE 103 mmol/L (98-107); CO2 23 mmol/L (21-32); CREATININE 2.3 mg/dL (0.55-1.3); GLUCOSE,RANDOM 74 mg/dL (74-106); SGOT/AST 18 U/L (15-37); SGPT/ALT 14 U/L (13-61); SODIUM 135 mmol/L (136-145); TOT PROT 6.4 g/dl (6.4-8.2)
[2018-05-31] MEDS: PANTOPRAZOLE SODIUM 80 MG in SODIUM CHLORIDE 100 ML IVPB SCH ×2 (10:07→21:16)
[2018-05-31] MEDS ORDERED: ESCITALOPRAM OXALATE 10 MG TABLET (FP) ONE (10:38)
[2018-05-31] MEDS: RANITIDINE HCL 150 MG TABLET (FP) PO SCH (10:40)
[2018-05-31] MEDS: amLODIPine BESYLATE 10 MG TABLET (FP) PO SCH (10:40)
[2018-05-31] MEDS: predniSONE 5 MG TABLET (UD) PO SCH (10:40)
[2018-05-31] MEDS: ESCITALOPRAM OXALATE 20 MG TABLET (FP) PO SCH (10:41)
[2018-05-31] MEDS: FERROUS SO4 325 MG TABLET (FP) PO SCH (10:41)
[2018-05-31] MEDS: SODIUM BICARBONATE 650 MG TABLET PO SCH ×2 (10:41→21:15)
[2018-05-31] MEDS: POLYETHYLENE GLYCOL 3350 119 GM BTL PO SCH (10:42)
--- NOTE | 2018-05-31 10:56 | PN ---
Progress Note, Physician History of Present Illness: seen and examined today in nad. states she is feeling well and [place]> - Current Medication List Current Medications: Active Medications Amlodipine Besylate (Norvasc -) 10 mg PO DAILY [facility] Last Admin: 05/31/18 10:40 Dose: 10 mg Escitalopram Oxalate (Lexapro -) 20 mg PO DAILY [facility] Last Admin: 05/31/18 10:41 Dose: 20 mg Ferrous Sulfate (Feosol -) 325 mg PO DAILY [facility] Last Admin: 05/31/18 10:41 Dose: 325 mg Hydralazine HCl (Apresoline -) 50 mg PO TID [facility] Last Admin: 05/31/18 05:59 Dose: 50 mg Pantoprazole Sodium 80 mg/ (Sodium Chloride) 100 mls @ 10 mls/hr IVPB Q10H [facility] Last Admin: 05/31/18 10:07 Dose: 10 mls/hr Latanoprost (Xalatan 0.005% Eye Drops -) 1 drop OU HS [facility] Last Admin: 05/30/18 22:20 Dose: 1 drop Levothyroxine Sodium (Synthroid -) 112 mcg PO DAILY@0700 [facility] Last Admin: 05/31/18 05:59 Dose: 112 mcg Polyethylene Glycol (Miralax (For Daily Use) -) 17 gm PO DAILY [facility] Last Admin: 05/31/18 10:42 Dose: Not Given Prednisone (Deltasone -) 5 mg PO DAILY [facility] Last Admin: 05/31/18 10:40 Dose: 5 mg Ranitidine HCl (Zantac -) 150 mg PO DAILY [facility] Last Admin: 05/31/18 10:40 Dose: 150 mg Sodium Bicarbonate (Sodium Bicarbonate -) 1,300 mg PO BID [facility] Last Admin: 05/31/18 10:41 Dose: 1,300 mg Tamsulosin HCl (Flomax -) 0.4 mg PO HS [facility] Last Admin: 05/30/18 21:36 Dose: 0.4 mg - Objective Vital Signs: Vital Signs Temperature 98.0 F 05/31/18 09:20 Pulse Rate 60 05/31/18 09:20 Respiratory Rate 20 05/31/18 09:20 Blood Pressure 145/66 05/31/18 09:20 O2 Sat by Pulse Oximetry (%) 99 05/30/18 22:00 Constitutional: Yes: No Distress, Calm Eyes: Yes: Conjunctiva Clear, EOM Intact HENT: Yes: Atraumatic, Normocephalic Neck: Yes: Supple, Trachea Midline Cardiovascular: Yes: Regular Rate and Rhythm, S1, S2. No: Bradycardia, Tachycardia, Pulse Irregular, Bruit, JVD, Gallop, Murmur, Rub, S3, S4, Varicosities Respiratory: Yes: Regular. No: Rales, Rhonchi, Wheezes Gastrointestinal: Yes: Normal Bowel Sounds, Soft Musculoskeletal: Yes: WNL Extremities: Yes: WNL Edema: No Peripheral Pulses WNL: Yes Neurological: Yes: Alert, Oriented Psychiatric: Yes: Alert, Oriented Labs: CBC, BMP 05/31/18 06:30 05/31/18 06:30 INR, PTT INR 0.93 (0.83-1.09) 05/28/18 07:00 - ....Imaging Chest X-ray: Report Reviewed, Image Reviewed EKG: Report Reviewed, Image Reviewed Other: Report Reviewed, Image Reviewed Assessment/Plan 77 year old female with a PMH of Parkinson's dementia, HTN, and HLD, COPD, CKD, Depression, GERD, anemia, prior GI bleed and hyperkalemia. She was sent from [facility] for evaluation of severe anemia Hgb 5.2 with bun 122 Presently she is comfortably lying flat with no distress. Troponin Level of 1.63 now down to 1.23 - likely related to demand ischemia secondary to severe anemia BNP 20,163 EKG 05/28/18 NSR at 62 BPM with normal intervals, normal axis, and LVH with strain (unchanged from prior ekgs) S/p pRBC's No cardiac contraindications to EGD or colonoscopy if needed No other inpatient cardiac work up needed at this time. Will follow up as needed. Please call if any additional questions.
--- NOTE | 2018-05-31 12:57 | PN ---
Progress Note, Physician History of Present Illness: Pt seen and examined at bedside. SHe is eager to go back o rehab. She denies shortness of breath. - Current Medication List Current Medications: Active Medications Amlodipine Besylate (Norvasc -) 10 mg PO DAILY [facility] Last Admin: 05/31/18 10:40 Dose: 10 mg Escitalopram Oxalate (Lexapro -) 20 mg PO DAILY [facility] Last Admin: 05/31/18 10:41 Dose: 20 mg Ferrous Sulfate (Feosol -) 325 mg PO DAILY [facility] Last Admin: 05/31/18 10:41 Dose: 325 mg Hydralazine HCl (Apresoline -) 50 mg PO TID [facility] Last Admin: 05/31/18 05:59 Dose: 50 mg Pantoprazole Sodium 80 mg/ (Sodium Chloride) 100 mls @ 10 mls/hr IVPB Q10H [facility] Last Admin: 05/31/18 10:07 Dose: 10 mls/hr Latanoprost (Xalatan 0.005% Eye Drops -) 1 drop OU HS [facility] Last Admin: 05/30/18 22:20 Dose: 1 drop Levothyroxine Sodium (Synthroid -) 112 mcg PO DAILY@0700 [facility] Last Admin: 05/31/18 05:59 Dose: 112 mcg Polyethylene Glycol (Miralax (For Daily Use) -) 17 gm PO DAILY [facility] Last Admin: 05/31/18 10:42 Dose: Not Given Prednisone (Deltasone -) 5 mg PO DAILY [facility] Last Admin: 05/31/18 10:40 Dose: 5 mg Ranitidine HCl (Zantac -) 150 mg PO DAILY [facility] Last Admin: 05/31/18 10:40 Dose: 150 mg Sodium Bicarbonate (Sodium Bicarbonate -) 1,300 mg PO BID [facility] Last Admin: 05/31/18 10:41 Dose: 1,300 mg Tamsulosin HCl (Flomax -) 0.4 mg PO HS [facility] Last Admin: 05/30/18 21:36 Dose: 0.4 mg - Objective Vital Signs: Vital Signs Temperature 98.0 F 05/31/18 09:20 Pulse Rate 60 05/31/18 09:20 Respiratory Rate 20 05/31/18 09:20 Blood Pressure 145/66 05/31/18 09:20 O2 Sat by Pulse Oximetry (%) 99 05/31/18 09:00 Constitutional: Yes: Calm Eyes: Yes: Conjunctiva Clear HENT: Yes: Atraumatic Cardiovascular: Yes: S1, S2 Respiratory: Yes: On Nasal O2 Gastrointestinal: Yes: Soft Genitourinary: Yes: Incontinence Edema: No Neurological: Yes: Oriented Psychiatric: Yes: Oriented Labs: CBC, BMP 05/31/18 06:30 05/31/18 06:30 INR, PTT INR 0.93 (0.83-1.09) 05/28/18 07:00 Assessment/Plan Current Medications Generic Name Dose Route Start Last Admin Trade Name Armani PRN Reason Stop Dose Admin Amlodipine Besylate 10 mg 05/28/18 10:00 05/31/18 10:40 Norvasc - PO 10 mg DAILY [facility] Administration Escitalopram Oxalate 20 mg 05/28/18 10:00 05/31/18 10:41 Lexapro - PO 20 mg DAILY [facility] Administration Ferrous Sulfate 325 mg 05/28/18 10:00 05/31/18 10:41 Feosol - PO 325 mg DAILY [facility] Administration Hydralazine HCl 50 mg 05/28/18 06:00 05/31/18 05:59 Apresoline - PO 50 mg TID [facility] Administration Pantoprazole Sodium 80 mg/ 100 mls @ 10 mls/hr 05/28/18 12:30 05/31/18 10:07 Sodium Chloride IVPB 10 mls/hr Q10H [facility] Administration 8 MG/HR Latanoprost 1 drop 05/28/18 22:00 05/30/18 22:20 Xalatan 0.005% Eye Drops - OU 1 drop HS [facility] Administration Levothyroxine Sodium 112 mcg 05/30/18 11:45 05/31/18 05:59 Synthroid - PO 112 mcg DAILY@0700 [facility] Administration Polyethylene Glycol 17 gm 05/28/18 10:00 05/31/18 10:42 Miralax (For Daily Use) - PO Not Given DAILY [facility] Prednisone 5 mg 05/28/18 10:00 05/31/18 10:40 Deltasone - PO 5 mg DAILY [facility] Administration Ranitidine HCl 150 mg 05/28/18 10:00 05/31/18 10:40 Zantac - PO 150 mg DAILY [facility] Administration Sodium Bicarbonate 1,300 mg 05/29/18 22:00 05/31/18 10:41 Sodium Bicarbonate - PO 1,300 mg BID [facility] Administration Tamsulosin HCl 0.4 mg 05/28/18 22:00 05/30/18 21:36 Flomax - PO 0.4 mg HS [facility] Administration Laboratory Tests 05/28/18 17:01 Urine Eosinophils Pending Impression 1. CKD 2. right renal cyst 3. toe ulcer 4. hypothryoid 5. dementia 6. parkinsons 7. HTN 8. gout 9. uremia 10. anemia 11. GI bleed Plan - bun is improving - GI workup in progress - no indication for HD at this point - monitor hg - gi bleed and steroids can contribute to elevated nun - monitor bun - renal diet
--- NOTE | 2018-05-31 16:17 | PN ---
Progress Note, Physician Chief Complaint: GI Bleed Anemia CKD History of Present Illness: Previous notes and events reviewed awake and alert NAD denies complaints of chest pain, SOB - Current Medication List Current Medications: Active Medications Amlodipine Besylate (Norvasc -) 10 mg PO DAILY [facility] Last Admin: 05/31/18 10:40 Dose: 10 mg Escitalopram Oxalate (Lexapro -) 20 mg PO DAILY [facility] Last Admin: 05/31/18 10:41 Dose: 20 mg Ferrous Sulfate (Feosol -) 325 mg PO DAILY [facility] Last Admin: 05/31/18 10:41 Dose: 325 mg Hydralazine HCl (Apresoline -) 50 mg PO TID [facility] Last Admin: 05/31/18 12:59 Dose: 50 mg Pantoprazole Sodium 80 mg/ (Sodium Chloride) 100 mls @ 10 mls/hr IVPB Q10H [facility] Last Admin: 05/31/18 10:07 Dose: 10 mls/hr Latanoprost (Xalatan 0.005% Eye Drops -) 1 drop OU HS [facility] Last Admin: 05/30/18 22:20 Dose: 1 drop Levothyroxine Sodium (Synthroid -) 112 mcg PO DAILY@0700 [facility] Last Admin: 05/31/18 05:59 Dose: 112 mcg Polyethylene Glycol (Miralax (For Daily Use) -) 17 gm PO DAILY [facility] Last Admin: 05/31/18 10:42 Dose: Not Given Prednisone (Deltasone -) 5 mg PO DAILY [facility] Last Admin: 05/31/18 10:40 Dose: 5 mg Ranitidine HCl (Zantac -) 150 mg PO DAILY [facility] Last Admin: 05/31/18 10:40 Dose: 150 mg Sodium Bicarbonate (Sodium Bicarbonate -) 1,300 mg PO BID [facility] Last Admin: 05/31/18 10:41 Dose: 1,300 mg Tamsulosin HCl (Flomax -) 0.4 mg PO HS [facility] Last Admin: 05/30/18 21:36 Dose: 0.4 mg - Objective Vital Signs: Vital Signs Temperature 98.5 F 05/31/18 13:22 Pulse Rate 57 L 05/31/18 13:22 Respiratory Rate 17 05/31/18 13:22 Blood Pressure 133/59 L 05/31/18 13:22 O2 Sat by Pulse Oximetry (%) 99 04/09/19 09:00 Constitutional: Yes: No Distress, Calm Eyes: Yes: Conjunctiva Clear HENT: Yes: Atraumatic Cardiovascular: Yes: Regular Rate and Rhythm Respiratory: Yes: Regular, CTA Bilaterally, On Nasal O2 Gastrointestinal: Yes: Normal Bowel Sounds, Soft Genitourinary: Yes: Incontinence Musculoskeletal: Yes: Muscle Weakness Extremities: Yes: WNL Edema: No Neurological: Yes: Alert, Pre-Existing Deficit Psychiatric: Yes: Alert Labs: CBC, BMP 05/31/18 06:30 05/31/18 06:30 INR, PTT INR 0.93 (0.83-1.09) 05/28/18 07:00 Problem List - Problems (1) Anemia Assessment/Plan: -Hg 8.4 -monitor Hg daily -transfuse for Hg <7.0 to avoid fluid overload -stool OB positive -continue Ferrous Sulfate Code(s): D64.9 - ANEMIA, UNSPECIFIED Qualifiers: Anemia type: unspecified type Qualified Code(s): D64.9 - Anemia, unspecified (2) CHF (congestive heart failure) Assessment/Plan: -cardiology on board -BNP 20,163 - Code(s): I50.9 - HEART FAILURE, UNSPECIFIED (3) COPD (chronic obstructive pulmonary disease) Assessment/Plan: -continue Prednisone Code(s): J44.9 - CHRONIC OBSTRUCTIVE PULMONARY DISEASE, UNSPECIFIED (4) GI bleed Assessment/Plan: -GI on board -Hg 8.4 -monitor Hg daily -continue Pantoprazole drip and Ranitidine Code(s): K92.2 - GASTROINTESTINAL HEMORRHAGE, UNSPECIFIED Qualifiers: GI bleed type/associated pathology: unspecified gastrointestinal hemorrhage type Qualified Code(s): K92.2 - Gastrointestinal hemorrhage, unspecified (5) Hypothyroid Assessment/Plan: -TSH elev -Endo consult Code(s): E03.9 - HYPOTHYROIDISM, UNSPECIFIED (6) CKD (chronic kidney disease) Assessment/Plan: -renal on board -BUN/Cr 94/2.3 -Renal US done, results pending -monitor BUN/Cr daily Code(s): N18.9 - CHRONIC KIDNEY DISEASE, UNSPECIFIED Assessment/Plan see problem list dvt ppx
[2018-05-31] MEDS: TAMSULOSIN HCL 0.4 MG CAP PO SCH (21:15)
[2018-05-31] MEDS: LATANOPROST 0.005% OPHTH SOLN 2.5ML BOTTLE OU SCH (21:20)
[2018-06-01] MEDS: hydrALAZINE HCL 50 MG TABLET (FP) PO SCH ×3 (05:41→21:37)
[2018-06-01] MEDS: PANTOPRAZOLE SODIUM 80 MG in SODIUM CHLORIDE 100 ML IVPB SCH (06:04)
[2018-06-01] MEDS: LEVOTHYROXINE NA 112 MCG TABLET (FP) PO SCH (06:04)
[2018-06-01 07:05] LABS: HEMATOCRIT 23.1 % (32.4-45.2); HEMOGLOBIN 7.9 GM/dL (10.7-15.3); MCH 30.4 pg (25.7-33.7); MCHC 34.2 g/dl (32.0-36.0); MEAN CELL VOLUME 88.9 fl (80-96); MEAN PLT VOLUME 7.2 fl (7.5-11.1); PLATELET COUNT 394 K/MM3 (134-434); RDW 15.2 % (11.6-15.6); WHITE BLOOD COUNT 6.2 K/mm3 (4.0-10.0)
[2018-06-01 07:30] LABS: ALBUMIN 2.7 g/dl (3.4-5.0); ALK PHOS 62 U/L (45-117); ANION GAP 7 MMOL/L (8-16); BILIRUBIN,TOTAL 0.3 mg/dL (0.2-1); BLOOD UREA NITROGEN 86 mg/dL (7-18); CALCIUM 8.1 mg/dL (8.5-10.1); CHLORIDE 102 mmol/L (98-107); CO2 24 mmol/L (21-32); CREATININE 2.2 mg/dL (0.55-1.3); GLUCOSE,RANDOM 75 mg/dL (74-106); SGOT/AST 12 U/L (15-37); SGPT/ALT 11 U/L (13-61); SODIUM 133 mmol/L (136-145); TOT PROT 5.6 g/dl (6.4-8.2)
[2018-06-01] MEDS ORDERED: ESCITALOPRAM OXALATE 10 MG TABLET (FP) ONE (09:08)
[2018-06-01] MEDS: amLODIPine BESYLATE 10 MG TABLET (FP) PO SCH (09:16)
[2018-06-01] MEDS: SODIUM BICARBONATE 650 MG TABLET PO SCH ×2 (09:16→21:38)
[2018-06-01] MEDS: predniSONE 5 MG TABLET (UD) PO SCH (09:17)
[2018-06-01] MEDS: FERROUS SO4 325 MG TABLET (FP) PO SCH (09:17)
[2018-06-01] MEDS: RANITIDINE HCL 150 MG TABLET (FP) PO SCH (09:17)
[2018-06-01] MEDS: ESCITALOPRAM OXALATE 20 MG TABLET (FP) PO SCH (09:17)
[2018-06-01] MEDS: PANTOPRAZOLE 40 MG TABLET (FP) PO SCH ×2 (09:17→21:38)
[2018-06-01] MEDS: POLYETHYLENE GLYCOL 3350 119 GM BTL PO SCH (09:18)
--- NOTE | 2018-06-01 12:51 | PN ---
Progress Note, Physician History of Present Illness: Pt seen and examined at bedside. She is awake and alert. She denies shortness of breath. - Current Medication List Current Medications: Active Medications Amlodipine Besylate (Norvasc -) 10 mg PO DAILY [facility] Last Admin: 06/01/18 09:16 Dose: 10 mg Escitalopram Oxalate (Lexapro -) 20 mg PO DAILY [facility] Last Admin: 06/01/18 09:17 Dose: 20 mg Ferrous Sulfate (Feosol -) 325 mg PO DAILY [facility] Last Admin: 06/01/18 09:17 Dose: 325 mg Hydralazine HCl (Apresoline -) 50 mg PO TID [facility] Last Admin: 06/01/18 05:41 Dose: 50 mg Latanoprost (Xalatan 0.005% Eye Drops -) 1 drop OU HS [facility] Last Admin: 05/31/18 21:20 Dose: 1 drop Levothyroxine Sodium (Synthroid -) 112 mcg PO DAILY@0700 [facility] Last Admin: 06/01/18 06:04 Dose: 112 mcg Pantoprazole Sodium (Protonix -) 40 mg PO BID [facility] Last Admin: 06/01/18 09:17 Dose: 40 mg Polyethylene Glycol (Miralax (For Daily Use) -) 17 gm PO DAILY [facility] Last Admin: 06/01/18 09:18 Dose: 17 gm Prednisone (Deltasone -) 5 mg PO DAILY [facility] Last Admin: 06/01/18 09:17 Dose: 5 mg Ranitidine HCl (Zantac -) 150 mg PO DAILY [facility] Last Admin: 06/01/18 09:17 Dose: 150 mg Sodium Bicarbonate (Sodium Bicarbonate -) 1,300 mg PO BID [facility] Last Admin: 06/01/18 09:16 Dose: 1,300 mg Tamsulosin HCl (Flomax -) 0.4 mg PO HS [facility] Last Admin: 05/31/18 21:15 Dose: 0.4 mg - Objective Vital Signs: Vital Signs Temperature 98.1 F 06/01/18 09:00 Pulse Rate 57 L 06/01/18 09:00 Respiratory Rate 18 06/01/18 09:00 Blood Pressure 149/53 L 06/01/18 09:00 O2 Sat by Pulse Oximetry (%) 97 06/01/18 09:00 Constitutional: Yes: Calm Eyes: Yes: Conjunctiva Clear HENT: Yes: Atraumatic Cardiovascular: Yes: S1, S2 Respiratory: Yes: CTA Bilaterally Gastrointestinal: Yes: Soft Genitourinary: Yes: WNL Edema: No Neurological: Yes: Oriented Psychiatric: Yes: Oriented Labs: CBC, BMP 06/01/18 06:30 06/01/18 06:30 INR, PTT INR 0.93 (0.83-1.09) 05/28/18 07:00 Assessment/Plan Current Medications Generic Name Dose Route Start Last Admin Trade Name Armani PRN Reason Stop Dose Admin Amlodipine Besylate 10 mg 05/28/18 10:00 06/01/18 09:16 Norvasc - PO 10 mg DAILY [facility] Administration Escitalopram Oxalate 20 mg 05/28/18 10:00 06/01/18 09:17 Lexapro - PO 20 mg DAILY [facility] Administration Ferrous Sulfate 325 mg 05/28/18 10:00 06/01/18 09:17 Feosol - PO 325 mg DAILY [facility] Administration Hydralazine HCl 50 mg 05/28/18 06:00 06/01/18 05:41 Apresoline - PO 50 mg TID [facility] Administration Latanoprost 1 drop 05/28/18 22:00 05/31/18 21:20 Xalatan 0.005% Eye Drops - OU 1 drop HS [facility] Administration Levothyroxine Sodium 112 mcg 05/30/18 11:45 06/01/18 06:04 Synthroid - PO 112 mcg DAILY@0700 [facility] Administration Pantoprazole Sodium 40 mg 06/01/18 10:00 06/01/18 09:17 Protonix - PO 40 mg BID [facility] Administration Polyethylene Glycol 17 gm 05/28/18 10:00 06/01/18 09:18 Miralax (For Daily Use) - PO 17 gm DAILY [facility] Administration Prednisone 5 mg 05/28/18 10:00 06/01/18 09:17 Deltasone - PO 5 mg DAILY [facility] Administration Ranitidine HCl 150 mg 05/28/18 10:00 06/01/18 09:17 Zantac - PO 150 mg DAILY [facility] Administration Sodium Bicarbonate 1,300 mg 05/29/18 22:00 06/01/18 09:16 Sodium Bicarbonate - PO 1,300 mg BID [facility] Administration Tamsulosin HCl 0.4 mg 05/28/18 22:00 05/31/18 21:15 Flomax - PO 0.4 mg HS [facility] Administration Impression 1. CKD 2. right renal cyst 3. toe ulcer 4. hypothryoid 5. dementia 6. parkinsons 7. HTN 8. gout 9. uremia 10. anemia 11. GI bleed Plan - bun continues to improve - unclear why she is on 5 mg of prednisone, taper of possible - monitor hg - GI workup in progress - gi bleed and steroids can contribute to elevated bun - monitor bun - renal diet
--- NOTE | 2018-06-01 14:17 | PN.GI ---
GI Progress Note Subjective: Pt seen/examined at bedside, feeling well, no complaints currently. Oriented to person/place. Denies abdominal pain, n/v, fever/chills. Moving bowels though unclear of last bm. No blood reported. PPI has been changed to bid. D/w nursing staff. - Objective Vital Signs: Vital Signs Temperature 98.2 F 06/01/18 14:00 Pulse Rate 84 06/01/18 14:00 Respiratory Rate 20 06/01/18 14:00 Blood Pressure 161/66 06/01/18 14:00 O2 Sat by Pulse Oximetry (%) 97 06/01/18 09:00 Constitutional: Well Nourished, No Distress, Calm Cardiovascular: Yes: WNL, Regular Rate and Rhythm Respiratory: Yes: WNL, CTA Bilaterally Gastrointestinal Inspection: Yes: WNL ...Palpate: Yes: Other (Abd soft, nt, nd) Labs: CBC, BMP 06/01/18 06:30 06/01/18 06:30 INR, PTT INR 0.93 (0.83-1.09) 05/28/18 07:00 Problem List - Problems (1) Anemia Assessment/Plan: 77yo female h/o depression, dementia presenting [place] with severe anemia and melena. Hb with mild decline with no further episodes of overt bleeding reported. No prior reported EGD/colonoscopy and pt refusing endoscopic evaluation previously. -Continue to monitor Hb and for evidence of bleeding -PPI bid -Diet as tolerated -Would request that primary team please clarify goals of care and follow up with psychiatry regarding decision making capacity prior to proceeding with endoscopic evaluation. -Attempted to contact medicine team, await call back. Code(s): D64.9 - ANEMIA, UNSPECIFIED Qualifiers: Anemia type: unspecified type Qualified Code(s): D64.9 - Anemia, unspecified
[2018-06-01] MEDS ORDERED: IRON SUCROSE INJECTION 200 MG in SODIUM CHLORIDE 90 ML IVPB ONE (14:45)
--- NOTE | 2018-06-01 14:49 | PN ---
Progress Note, Physician Chief Complaint: GI Bleed Anemia CKD History of Present Illness: Previous notes and events reviewed awake and alert NAD denies complaints of chest pain, SOB - Current Medication List Current Medications: Active Medications Amlodipine Besylate (Norvasc -) 10 mg PO DAILY [facility] Last Admin: 06/01/18 09:16 Dose: 10 mg Escitalopram Oxalate (Lexapro -) 20 mg PO DAILY [facility] Last Admin: 06/01/18 09:17 Dose: 20 mg Ferrous Sulfate (Feosol -) 325 mg PO DAILY [facility] Last Admin: 06/01/18 09:17 Dose: 325 mg Hydralazine HCl (Apresoline -) 50 mg PO TID [facility] Last Admin: 06/01/18 13:33 Dose: 50 mg Iron Sucrose 200 mg/ Sodium (Chloride) 100 mls @ 100 mls/hr IVPB ONCE ONE Stop: 06/01/18 15:44 Latanoprost (Xalatan 0.005% Eye Drops -) 1 drop OU HS [facility] Last Admin: 05/31/18 21:20 Dose: 1 drop Levothyroxine Sodium (Synthroid -) 112 mcg PO DAILY@0700 [facility] Last Admin: 06/01/18 06:04 Dose: 112 mcg Pantoprazole Sodium (Protonix -) 40 mg PO BID [facility] Last Admin: 06/01/18 09:17 Dose: 40 mg Polyethylene Glycol (Miralax (For Daily Use) -) 17 gm PO DAILY [facility] Last Admin: 06/01/18 09:18 Dose: 17 gm Prednisone (Deltasone -) 5 mg PO DAILY [facility] Last Admin: 06/01/18 09:17 Dose: 5 mg Ranitidine HCl (Zantac -) 150 mg PO DAILY [facility] Last Admin: 06/01/18 09:17 Dose: 150 mg Sodium Bicarbonate (Sodium Bicarbonate -) 1,300 mg PO BID [facility] Last Admin: 06/01/18 09:16 Dose: 1,300 mg Tamsulosin HCl (Flomax -) 0.4 mg PO HS [facility] Last Admin: 05/31/18 21:15 Dose: 0.4 mg - Objective Vital Signs: Vital Signs Temperature 98.2 F 06/01/18 14:00 Pulse Rate 84 06/01/18 14:00 Respiratory Rate 20 06/01/18 14:00 Blood Pressure 161/66 06/01/18 14:00 O2 Sat by Pulse Oximetry (%) 97 06/01/18 09:00 Constitutional: Yes: No Distress, Calm Eyes: Yes: Conjunctiva Clear HENT: Yes: Atraumatic Cardiovascular: Yes: Regular Rate and Rhythm Respiratory: Yes: CTA Bilaterally, On Nasal O2 Gastrointestinal: Yes: Normal Bowel Sounds, Soft Genitourinary: Yes: Incontinence Musculoskeletal: Yes: Muscle Weakness Extremities: Yes: WNL Edema: No Neurological: Yes: Alert, Pre-Existing Deficit Psychiatric: Yes: Alert, Oriented Labs: CBC, BMP 06/01/18 06:30 06/01/18 06:30 INR, PTT INR 0.93 (0.83-1.09) 05/28/18 07:00 Microbiology 05/28/18 20:30 Urine - Urine Clean Catch Urine Culture - Final Klebsiella Pneumoniae Problem List - Problems (1) Anemia Assessment/Plan: -Hg 7.9--Iron Sucrose 200mg IVPB x 1 -monitor Hg daily -transfuse for Hg <7.0 to avoid fluid overload -stool OB positive -continue Ferrous Sulfate -GI on board--pt refusing Endoscopy, psych consult for capacity ordered Code(s): D64.9 - ANEMIA, UNSPECIFIED Qualifiers: Anemia type: unspecified type Qualified Code(s): D64.9 - Anemia, unspecified (2) CHF (congestive heart failure) Assessment/Plan: -cardiology on board -BNP 20,163 - Code(s): I50.9 - HEART FAILURE, UNSPECIFIED (3) COPD (chronic obstructive pulmonary disease) Assessment/Plan: -continue Prednisone Code(s): J44.9 - CHRONIC OBSTRUCTIVE PULMONARY DISEASE, UNSPECIFIED (4) GI bleed Assessment/Plan: -GI on board--pt refusing Endoscopy, psych consult ordered for capacity -Hg 7.9 -Iron Sucrose 200mg IVPB x 1 -monitor Hg daily -continue Pantoprazole drip and Ranitidine Code(s): K92.2 - GASTROINTESTINAL HEMORRHAGE, UNSPECIFIED Qualifiers: GI bleed type/associated pathology: unspecified gastrointestinal hemorrhage type Qualified Code(s): K92.2 - Gastrointestinal hemorrhage, unspecified (5) Hypothyroid Assessment/Plan: -TSH elev -Endo consult Code(s): E03.9 - HYPOTHYROIDISM, UNSPECIFIED (6) CKD (chronic kidney disease) Assessment/Plan: -renal on board -BUN/Cr 86/2.2 -Renal US done, results pending -monitor BUN/Cr daily Code(s): N18.9 - CHRONIC KIDNEY DISEASE, UNSPECIFIED Assessment/Plan see problem list dvt ppx
--- NOTE | 2018-06-01 18:12 | PN ---
Progress Note (short form) - Note Progress Note: ID consult dictated imp/reccd 77 yo [place] with severe anemia she has no fever or urinary complaints she is s/p transfusion GI workup is being contemplated no UA was sent but urine culture was sent from ED why?? asymptomatic bacteriuria- no need to treat for uti anemia- workup per PMD please call back if needed Problem List - Problems (1) Asymptomatic bacteriuria Code(s): R82.71 - BACTERIURIA (2) Anemia Code(s): D64.9 - ANEMIA, UNSPECIFIED Qualifiers: Anemia type: unspecified type Qualified Code(s): D64.9 - Anemia, unspecified
[2018-06-01] MEDS: TAMSULOSIN HCL 0.4 MG CAP PO SCH (21:37)
[2018-06-01] MEDS: LATANOPROST 0.005% OPHTH SOLN 2.5ML BOTTLE OU SCH (21:40)
--- NOTE | 2018-06-01 23:31 | CONSULT ---
Consult Consult Specialty:: endocrine Referred by:: rex snider md Reason for Consultation:: hypothyroidism - History of Present Illness Chief Complaint: low thyroid History of Present Illness: 77 year old female with a past medical history of hypothyroidism, GERD, GI Beed , anemia who was sent from [facility] with a hemoglobin of 4.7. Pt denies abdominal pain, diarrhea, constipation, nausea, vomiting, hematochezia, hematemesis, melena. Denies lightheadedness, dizziness, SOB. she states she feels fine. 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 Cardio/Vascular: Yes: HTN, Hyperlipdemia Renal/: Yes: Renal Inusuff Psych: Yes: Depression Rheumatology: Yes: Other (arthritis) Endocrine: Yes: Hypothyroidism - Past Surgical History Past Surgical History: Yes: Appendectomy, Tonsillectomy - Alcohol/Substance Use Hx Alcohol Use: No History of Substance Use: reports: None - Smoking History Smoking history: Never smoked Have you smoked in the past 12 months: No Aproximately how many cigarettes per day: 5 If you are a former smoker, when did you quit?: 5 years ago - Social History Usual Living Arrangement: Long Term ADL: Support Services History of Recent Travel: No Home Medications - Allergies Allergies/Adverse Reactions: Allergies Allergy/AdvReac Type Severity Reaction Status Date / Time No Known Allergies Allergy Verified 05/27/18 17:34 - Home Medications Home Medications: Ambulatory Orders Amlodipine Besylate [Norvasc -] 10 mg PO DAILY 05/27/18 Escitalopram Oxalate [Lexapro -] 20 mg PO DAILY 05/27/18 Famotidine [Pepcid] 20 mg PO 05/27/18 Ferrous Sulfate 325 mg PO 05/27/18 Hydralazine HCl 50 mg PO TID 05/27/18 Latanoprost 0.005% Eye Drops [Xalatan 0.005% Eye Drops -] 1 drop OP HS 05/27/18 Levothyroxine [Synthroid -] 100 mcg PO DAILY 05/27/18 Polyethylene Glycol 3350 [Miralax (For Daily Use) -] 17 gm PO DAILY 05/27/18 Prednisone 5 mg PO 05/27/18 Sodium Bicarbonate - 650 mg PO DAILY 05/27/18 Tamsulosin HCl [Flomax] 0.4 mg PO 05/27/18 Family Disease History - Family Disease History Family Disease History: Other: Father ( 70's: pancreatic Ca), Mother (: 70's: [place]), Brother (None), Sister (None), Daughter (3 daughters, 2 , ? causes) Review of Systems - Review of Systems Constitutional: reports: Weakness Eyes: reports: No Symptoms HENT: reports: No Symptoms Neck: reports: No Symptoms Cardiovascular: reports: Shortness of Breath Respiratory: reports: Exercise Intolerance Gastrointestinal: reports: No Symptoms Genitourinary: reports: No Symptoms Musculoskeletal: reports: Muscle Weakness Physical Exam Vital Signs: Vital Signs Temperature 97.7 F 06/01/18 18:00 Pulse Rate 57 L 06/01/18 18:00 Respiratory Rate 20 06/01/18 18:00 Blood Pressure 125/52 L 06/01/18 18:00 O2 Sat by Pulse Oximetry (%) 97 06/01/18 09:00 Constitutional: Yes: Anxious Eyes: Yes: EOM Intact HENT: Yes: Normocephalic Neck: Yes: Trachea Midline Cardiovascular: Yes: Regular Rate and Rhythm Respiratory: Yes: CTA Bilaterally Gastrointestinal: Yes: Normal Bowel Sounds ...Rectal Exam: Yes: Deferred Breast(s): Yes: WNL Musculoskeletal: Yes: WNL Extremities: Yes: WNL Edema: No Neurological: Yes: Alert Labs: CBC, BMP 06/01/18 06:30 06/01/18 06:30 Problem List - Problems (1) Anemia Code(s): D64.9 - ANEMIA, UNSPECIFIED Qualifiers: Anemia type: unspecified type Qualified Code(s): D64.9 - Anemia, unspecified (2) Asymptomatic bacteriuria Code(s): R82.71 - BACTERIURIA (3) Hypothyroid Code(s): E03.9 - HYPOTHYROIDISM, UNSPECIFIED (4) CKD (chronic kidney disease) Code(s): N18.9 - CHRONIC KIDNEY DISEASE, UNSPECIFIED Assessment/Plan Current Active Problems Anemia (Acute) Asymptomatic bacteriuria (Acute) CHF (congestive heart failure) (Acute) COPD (chronic obstructive pulmonary disease) (Acute) GI bleed (Acute) Hypothyroid (Acute) Abnormal Lab Results 06/01/18 06/01/18 06:30 06:30 RBC 2.60 L Hgb 7.9 L Hct 23.1 L MPV 7.2 L Sodium 133 L Anion Gap 7 L BUN 86 H Creatinine 2.2 H Calcium 8.1 L AST 12 L ALT 11 L Total Protein 5.6 L Albumin 2.7 L Laboratory Results - last 24 hr 06/01/18 06/01/18 06:30 06:30 WBC 6.2 RBC 2.60 L Hgb 7.9 L Hct 23.1 L MCV 88.9 MCH 30.4 MCHC 34.2 RDW 15.2 Plt Count 394 MPV 7.2 L Sodium 133 L Potassium 4.0 Chloride 102 Carbon Dioxide 24 Anion Gap 7 L BUN 86 H Creatinine 2.2 H Creat Clearance w eGFR 21.76 Random Glucose 75 Calcium 8.1 L Total Bilirubin 0.3 AST 12 L ALT 11 L Alkaline Phosphatase 62 Total Protein 5.6 L Albumin 2.7 L Laboratory Tests 05/28/18 07:00 TSH 13.40 H plan: absorption likely cause high tsh increase synthroid 125mcg follow tsh free t4 in 4 weeks call if needed
[2018-06-02] MEDS: hydrALAZINE HCL 50 MG TABLET (FP) PO SCH ×3 (05:40→21:49)
[2018-06-02] MEDS: LEVOTHYROXINE NA 112 MCG TABLET (FP) PO SCH (06:01)
[2018-06-02 07:10] LABS: HEMOGLOBIN 8.3 GM/dL (10.7-15.3); MCH 30.4 pg (25.7-33.7); MCHC 34.4 g/dl (32.0-36.0); MEAN CELL VOLUME 88.5 fl (80-96); MEAN PLT VOLUME 7.2 fl (7.5-11.1); PLATELET COUNT 448 K/MM3 (134-434); RBC 2.72 M/mm3 (3.60-5.2); RDW 14.8 % (11.6-15.6); WHITE BLOOD COUNT 6.7 K/mm3 (4.0-10.0)
[2018-06-02 07:52] LABS: ALBUMIN 2.9 g/dl (3.4-5.0); ALK PHOS 72 U/L (45-117); ANION GAP 7 MMOL/L (8-16); BILIRUBIN,TOTAL 0.3 mg/dL (0.2-1); BLOOD UREA NITROGEN 73 mg/dL (7-18); CALCIUM 8.5 mg/dL (8.5-10.1); CHLORIDE 100 mmol/L (98-107); CO2 26 mmol/L (21-32); CREATININE 2.3 mg/dL (0.55-1.3); GLUCOSE,RANDOM 76 mg/dL (74-106); N-TERMINAL BNP 10381.1 pg/ml (5-450); SGOT/AST 14 U/L (15-37); SGPT/ALT 13 U/L (13-61); SODIUM 133 mmol/L (136-145); TOT PROT 6.3 g/dl (6.4-8.2)
[2018-06-02] MEDS ORDERED: ESCITALOPRAM OXALATE 10 MG TABLET (FP) ONE (09:53)
[2018-06-02] MEDS: FERROUS SO4 325 MG TABLET (FP) PO SCH (09:55)
[2018-06-02] MEDS: SODIUM BICARBONATE 650 MG TABLET PO SCH ×2 (09:55→21:49)
[2018-06-02] MEDS: PANTOPRAZOLE 40 MG TABLET (FP) PO SCH ×2 (09:55→21:49)
[2018-06-02] MEDS: ESCITALOPRAM OXALATE 20 MG TABLET (FP) PO SCH (09:55)
[2018-06-02] MEDS: amLODIPine BESYLATE 10 MG TABLET (FP) PO SCH (09:55)
[2018-06-02] MEDS: predniSONE 5 MG TABLET (UD) PO SCH (09:55)
[2018-06-02] MEDS: RANITIDINE HCL 150 MG TABLET (FP) PO SCH (09:55)
[2018-06-02] MEDS: POLYETHYLENE GLYCOL 3350 119 GM BTL PO SCH (09:56)
--- NOTE | 2018-06-02 13:32 | PN ---
Progress Note, Physician Chief Complaint: GI Bleed Anemia CKD History of Present Illness: Previous notes and events reviewed awake and alert NAD denies complaints of chest pain, SOB sts she wants to go back to [facility] - Current Medication List Current Medications: Active Medications Amlodipine Besylate (Norvasc -) 10 mg PO DAILY [facility] Last Admin: 06/02/18 09:55 Dose: 10 mg Escitalopram Oxalate (Lexapro -) 20 mg PO DAILY [facility] Last Admin: 06/02/18 09:55 Dose: 20 mg Ferrous Sulfate (Feosol -) 325 mg PO DAILY [facility] Last Admin: 06/02/18 09:55 Dose: 325 mg Hydralazine HCl (Apresoline -) 50 mg PO TID [facility] Last Admin: 06/02/18 05:40 Dose: 50 mg Latanoprost (Xalatan 0.005% Eye Drops -) 1 drop OU HS [facility] Last Admin: 06/01/18 21:40 Dose: 1 drop Levothyroxine Sodium (Synthroid -) 112 mcg PO DAILY@0700 [facility] Last Admin: 06/02/18 06:01 Dose: 112 mcg Pantoprazole Sodium (Protonix -) 40 mg PO BID [facility] Last Admin: 06/02/18 09:55 Dose: 40 mg Polyethylene Glycol (Miralax (For Daily Use) -) 17 gm PO DAILY [facility] Last Admin: 06/02/18 09:56 Dose: Not Given Prednisone (Deltasone -) 5 mg PO DAILY [facility] Last Admin: 06/02/18 09:55 Dose: 5 mg Ranitidine HCl (Zantac -) 150 mg PO DAILY [facility] Last Admin: 06/02/18 09:55 Dose: 150 mg Sodium Bicarbonate (Sodium Bicarbonate -) 1,300 mg PO BID [facility] Last Admin: 06/02/18 09:55 Dose: 1,300 mg Tamsulosin HCl (Flomax -) 0.4 mg PO HS [facility] Last Admin: 06/01/18 21:37 Dose: 0.4 mg - Objective Vital Signs: Vital Signs Temperature 98.0 F 06/02/18 09:49 Pulse Rate 59 L 06/02/18 09:49 Respiratory Rate 18 06/02/18 09:49 Blood Pressure 153/60 06/02/18 09:49 O2 Sat by Pulse Oximetry (%) 100 06/01/18 21:00 Constitutional: Yes: No Distress, Calm Eyes: Yes: Conjunctiva Clear HENT: Yes: Atraumatic Cardiovascular: Yes: Regular Rate and Rhythm Respiratory: Yes: Regular, CTA Bilaterally Gastrointestinal: Yes: Normal Bowel Sounds, Soft Genitourinary: Yes: Incontinence Musculoskeletal: Yes: Muscle Weakness Extremities: Yes: WNL Edema: No Neurological: Yes: Alert, Pre-Existing Deficit Psychiatric: Yes: Alert Labs: CBC, BMP 06/02/18 06:40 06/02/18 06:40 INR, PTT INR 0.93 (0.83-1.09) 05/28/18 07:00 Microbiology 05/28/18 20:30 Urine - Urine Clean Catch Urine Culture - Final Klebsiella Pneumoniae Problem List - Problems (1) Anemia Assessment/Plan: -Hg 8.3 -monitor Hg daily -transfuse for Hg <7.0 to avoid fluid overload -stool OB positive -continue Ferrous Sulfate -GI on board--pt refusing Endoscopy, psych consult for capacity ordered Code(s): D64.9 - ANEMIA, UNSPECIFIED Qualifiers: Anemia type: unspecified type Qualified Code(s): D64.9 - Anemia, unspecified (2) CHF (congestive heart failure) Assessment/Plan: -cardiology on board -BNP 10,381 - Code(s): I50.9 - HEART FAILURE, UNSPECIFIED (3) COPD (chronic obstructive pulmonary disease) Assessment/Plan: -continue Prednisone -O2 via NC -keep SpO2 >90% Code(s): J44.9 - CHRONIC OBSTRUCTIVE PULMONARY DISEASE, UNSPECIFIED (4) GI bleed Assessment/Plan: -GI on board--pt refusing Endoscopy, psych consult ordered for capacity -Hg 8.3 -monitor Hg daily -continue Pantoprazole drip and Ranitidine Code(s): K92.2 - GASTROINTESTINAL HEMORRHAGE, UNSPECIFIED Qualifiers: GI bleed type/associated pathology: unspecified gastrointestinal hemorrhage type Qualified Code(s): K92.2 - Gastrointestinal hemorrhage, unspecified (5) Hypothyroid Assessment/Plan: -TSH elev -Endo on board -Levothyroxine 112mcg -repeat TSH and T4 in 4 weeks Code(s): E03.9 - HYPOTHYROIDISM, UNSPECIFIED (6) CKD (chronic kidney disease) Assessment/Plan: -renal on board -BUN/Cr 73/2.3 -Renal US done shows bilateral simple renal cysts -monitor BUN/Cr daily Code(s): N18.9 - CHRONIC KIDNEY DISEASE, UNSPECIFIED Assessment/Plan see problem list dvt ppx
--- NOTE | 2018-06-02 16:33 | PN ---
Progress Note, Physician History of Present Illness: Pt seen and examined at bedside. She does not know why she is on prednisone. She is refusing treatment. - Current Medication List Current Medications: Active Medications Amlodipine Besylate (Norvasc -) [address] [facility] Last Admin: 06/02/18 09:55 Dose: 10 mg Escitalopram Oxalate (Lexapro -) [address] [facility] Last Admin: 06/02/18 09:55 Dose: 20 mg Ferrous Sulfate (Feosol -) [address] [facility] Last Admin: 06/02/18 09:55 Dose: 325 mg Hydralazine HCl (Apresoline -) [address] [facility] Last Admin: 06/02/18 14:51 Dose: 50 mg Latanoprost (Xalatan 0.005% Eye Drops -) [address] [facility] Last Admin: 06/01/18 21:40 Dose: 1 drop Levothyroxine Sodium (Synthroid -) 112 mcg PO DAILY@0700 [facility] Last Admin: 06/02/18 06:01 Dose: 112 mcg Pantoprazole Sodium (Protonix -) [address] [facility] Last Admin: 06/02/18 09:55 Dose: 40 mg Polyethylene Glycol (Miralax (For Daily Use) -) [address] [facility] Last Admin: 06/02/18 09:56 Dose: Not Given Prednisone (Deltasone -) [address] [facility] Last Admin: 06/02/18 09:55 Dose: 5 mg Ranitidine HCl (Zantac -) [address] [facility] Last Admin: 06/02/18 09:55 Dose: 150 mg Sodium Bicarbonate (Sodium Bicarbonate -) 1,[address] [facility] Last Admin: 06/02/18 09:55 Dose: 1,300 mg Tamsulosin HCl (Flomax -) 0.[address] [facility] Last Admin: 06/01/18 21:37 Dose: 0.4 mg - Objective Vital Signs: Vital Signs Temperature 98.3 F 06/02/18 13:30 Pulse Rate 57 L 06/02/18 13:30 Respiratory Rate 20 06/02/18 13:30 Blood Pressure 145/60 06/02/18 13:30 O2 Sat by Pulse Oximetry (%) 100 06/02/18 09:49 Constitutional: Yes: Anxious Eyes: Yes: Conjunctiva Clear HENT: Yes: Atraumatic Neck: Yes: Supple Cardiovascular: Yes: S1, S2 Respiratory: Yes: CTA Bilaterally Gastrointestinal: Yes: Soft Genitourinary: Yes: WNL Musculoskeletal: Yes: WNL Edema: No Neurological: Yes: Oriented Psychiatric: Yes: Oriented Labs: CBC, BMP 06/02/18 06:40 06/02/18 06:40 INR, PTT INR 0.93 (0.83-1.09) 05/28/18 07:00 Assessment/Plan Current Medications Generic Name Dose Route Start Last Admin Trade Name Armani PRN Reason Stop Dose Admin Amlodipine Besylate 10 mg 05/28/18 10:00 06/02/18 09:55 Norvasc - PO 10 mg DAILY [facility] Administration Escitalopram Oxalate 20 mg 05/28/18 10:00 06/02/18 09:55 Lexapro - PO 20 mg DAILY [facility] Administration Ferrous Sulfate 325 mg 05/28/18 10:00 06/02/18 09:55 Feosol - PO 325 mg DAILY [facility] Administration Hydralazine HCl 50 mg 05/28/18 06:00 06/02/18 14:51 Apresoline - PO 50 mg TID [facility] Administration Latanoprost 1 drop 05/28/18 22:00 06/01/18 21:40 Xalatan 0.005% Eye Drops - OU 1 drop HS [facility] Administration Levothyroxine Sodium 112 mcg 05/30/18 11:45 06/02/18 06:01 Synthroid - PO 112 mcg DAILY@0700 [facility] Administration Pantoprazole Sodium 40 mg 06/01/18 10:00 06/02/18 09:55 Protonix - PO 40 mg BID [facility] Administration Polyethylene Glycol 17 gm 05/28/18 10:00 06/02/18 09:56 Miralax (For Daily Use) - PO Not Given DAILY [facility] Prednisone 5 mg 05/28/18 10:00 06/02/18 09:55 Deltasone - PO 5 mg DAILY [facility] Administration Ranitidine HCl 150 mg 05/28/18 10:00 06/02/18 09:55 Zantac - PO 150 mg DAILY [facility] Administration Sodium Bicarbonate 1,300 mg 05/29/18 22:00 06/02/18 09:55 Sodium Bicarbonate - PO 1,300 mg BID [facility] Administration Tamsulosin HCl 0.4 mg 05/28/18 22:00 06/01/18 21:37 Flomax - PO 0.4 mg HS [facility] Administration Impression 1. CKD 2. right renal cyst 3. toe ulcer 4. hypothryoid 5. dementia 6. parkinsons 7. HTN 8. gout 9. uremia 10. anemia 11. GI bleed Plan - renal function improving - unclear why she is on prednisone - she is refusing workup - monitor hg - gi bleed and steroids can contribute to elevated bun
--- NOTE | 2018-06-02 20:52 | PN ---
Progress Note (short form) - Note Progress Note: Patient refusing interventions. Continue PPI. supportive measures. Recall as needed. Problem List - Problems (1) Anemia Code(s): D64.9 - ANEMIA, UNSPECIFIED Qualifiers: Anemia type: unspecified type Qualified Code(s): D64.9 - Anemia, unspecified
[2018-06-02] MEDS: TAMSULOSIN HCL 0.4 MG CAP PO SCH (21:49)
[2018-06-02] MEDS: LATANOPROST 0.005% OPHTH SOLN 2.5ML BOTTLE OU SCH (21:51)
[2018-06-03] MEDS: hydrALAZINE HCL 50 MG TABLET (FP) PO SCH ×3 (06:57→21:16)
[2018-06-03] MEDS: LEVOTHYROXINE NA 112 MCG TABLET (FP) PO SCH (06:58)
[2018-06-03] MEDS ORDERED: PT OWN MED DRAWER 7, Y5N ONE ×2 (07:01→10:38)
[2018-06-03 07:13] LABS: HEMATOCRIT 24.1 % (32.4-45.2); HEMOGLOBIN 8.1 GM/dL (10.7-15.3); MCH 29.9 pg (25.7-33.7); MCHC 33.5 g/dl (32.0-36.0); MEAN CELL VOLUME 89.4 fl (80-96); MEAN PLT VOLUME 7.2 fl (7.5-11.1); PLATELET COUNT 417 K/MM3 (134-434); RBC 2.69 M/mm3 (3.60-5.2); RDW 15.2 % (11.6-15.6); WHITE BLOOD COUNT 6.9 K/mm3 (4.0-10.0)
[2018-06-03 07:40] LABS: ALBUMIN 2.8 g/dl (3.4-5.0); ALK PHOS 69 U/L (45-117); ANION GAP 4 MMOL/L (8-16); BILIRUBIN,TOTAL 0.3 mg/dL (0.2-1); BLOOD UREA NITROGEN 68 mg/dL (7-18); CALCIUM 8.4 mg/dL (8.5-10.1); CHLORIDE 101 mmol/L (98-107); CO2 29 mmol/L (21-32); CREATININE 2.3 mg/dL (0.55-1.3); GLUCOSE,RANDOM 69 mg/dL (74-106); POTASSIUM 4.3 mmol/L (3.5-5.1); SGOT/AST 14 U/L (15-37); SGPT/ALT 10 U/L (13-61); SODIUM 134 mmol/L (136-145); TOT PROT 5.9 g/dl (6.4-8.2)
[2018-06-03] MEDS ORDERED: ESCITALOPRAM OXALATE 10 MG TABLET (FP) ONE (10:37)
[2018-06-03] MEDS: PANTOPRAZOLE 40 MG TABLET (FP) PO SCH ×2 (10:45→21:15)
[2018-06-03] MEDS: RANITIDINE HCL 150 MG TABLET (FP) PO SCH (10:45)
[2018-06-03] MEDS: amLODIPine BESYLATE 10 MG TABLET (FP) PO SCH (10:45)
[2018-06-03] MEDS: FERROUS SO4 325 MG TABLET (FP) PO SCH (10:45)
[2018-06-03] MEDS: predniSONE 5 MG TABLET (UD) PO SCH (10:45)
[2018-06-03] MEDS: ESCITALOPRAM OXALATE 20 MG TABLET (FP) PO SCH (10:46)
[2018-06-03] MEDS: POLYETHYLENE GLYCOL 3350 119 GM BTL PO SCH (10:46)
[2018-06-03] MEDS: SODIUM BICARBONATE 650 MG TABLET PO SCH ×2 (10:48→21:15)
--- NOTE | 2018-06-03 12:58 | PN ---
Progress Note, Physician Chief Complaint: GI Bleed Anemia CKD History of Present Illness: Previous notes and events reviewed awake and alert NAD denies complaints of chest pain, SOB tolerating regular diet - Current Medication List Current Medications: Active Medications Amlodipine Besylate (Norvasc -) 10 mg PO DAILY [facility] Last Admin: 06/03/18 10:45 Dose: 10 mg Escitalopram Oxalate (Lexapro -) 20 mg PO DAILY [facility] Last Admin: 06/03/18 10:46 Dose: 20 mg Ferrous Sulfate (Feosol -) 325 mg PO DAILY [facility] Last Admin: 06/03/18 10:45 Dose: 325 mg Hydralazine HCl (Apresoline -) 50 mg PO TID [facility] Last Admin: 06/03/18 06:57 Dose: 50 mg Latanoprost (Xalatan 0.005% Eye Drops -) 1 drop OU [facility] Last Admin: 06/02/18 21:51 Dose: 1 drop Levothyroxine Sodium (Synthroid -) 112 mcg PO DAILY@0700 [facility] Last Admin: 06/03/18 06:58 Dose: 112 mcg Pantoprazole Sodium (Protonix -) 40 mg PO BID [facility] Last Admin: 06/03/18 10:45 Dose: 40 mg Polyethylene Glycol (Miralax (For Daily Use) -) 17 gm PO DAILY [facility] Last Admin: 06/03/18 10:46 Dose: Not Given Prednisone (Deltasone -) 5 mg PO DAILY [facility] Last Admin: 06/03/18 10:45 Dose: 5 mg Ranitidine HCl (Zantac -) 150 mg PO DAILY [facility] Last Admin: 06/03/18 10:45 Dose: 150 mg Sodium Bicarbonate (Sodium Bicarbonate -) 1,300 mg PO BID [facility] Last Admin: 06/03/18 10:48 Dose: 1,300 mg Tamsulosin HCl (Flomax -) 0.4 mg PO [facility] Last Admin: 06/02/18 21:49 Dose: 0.4 mg - Objective Vital Signs: Vital Signs Temperature 98.3 F 06/03/18 05:55 Pulse Rate 63 06/03/18 10:00 Respiratory Rate 20 06/03/18 10:00 Blood Pressure 138/81 06/03/18 10:00 O2 Sat by Pulse Oximetry (%) 100 06/02/18 21:00 Constitutional: Yes: No Distress, Calm Eyes: Yes: Conjunctiva Clear HENT: Yes: Atraumatic Cardiovascular: Yes: Regular Rate and Rhythm Respiratory: Yes: On Nasal O2, Wheezes Gastrointestinal: Yes: Normal Bowel Sounds, Soft Genitourinary: Yes: Incontinence Musculoskeletal: Yes: Muscle Weakness Extremities: Yes: WNL Neurological: Yes: Alert, Pre-Existing Deficit Psychiatric: Yes: Alert Labs: CBC, BMP 06/03/18 06:10 06/03/18 06:10 INR, PTT INR 0.93 (0.83-1.09) 05/28/18 07:00 Microbiology 05/28/18 20:30 Urine - Urine Clean Catch Urine Culture - Final Klebsiella Pneumoniae Problem List - Problems (1) Anemia Assessment/Plan: -Hg 8.1 -monitor Hg daily -transfuse for Hg <7.0 to avoid fluid overload -stool OB positive -continue Ferrous Sulfate -GI on board--pt refusing Endoscopy, psych consult for capacity ordered Code(s): D64.9 - ANEMIA, UNSPECIFIED Qualifiers: Anemia type: unspecified type Qualified Code(s): D64.9 - Anemia, unspecified (2) CHF (congestive heart failure) Assessment/Plan: -cardiology on board -BNP 10,381 - Code(s): I50.9 - HEART FAILURE, UNSPECIFIED (3) COPD (chronic obstructive pulmonary disease) Assessment/Plan: -continue Prednisone -O2 via NC -keep SpO2 >90% -bronchodilators Code(s): J44.9 - CHRONIC OBSTRUCTIVE PULMONARY DISEASE, UNSPECIFIED (4) GI bleed Assessment/Plan: -GI on board--pt refusing Endoscopy, psych consult ordered for capacity -Hg 8.1 -Stool OB positive -monitor Hg daily -continue Pantoprazole drip and Ranitidine Code(s): K92.2 - GASTROINTESTINAL HEMORRHAGE, UNSPECIFIED Qualifiers: GI bleed type/associated pathology: unspecified gastrointestinal hemorrhage type Qualified Code(s): K92.2 - Gastrointestinal hemorrhage, unspecified (5) Hypothyroid Assessment/Plan: -TSH elev -Endo on board -Levothyroxine 112mcg -repeat TSH and T4 in 4 weeks Code(s): E03.9 - HYPOTHYROIDISM, UNSPECIFIED (6) CKD (chronic kidney disease) Assessment/Plan: -renal on board -BUN/Cr 68/2.3 -Renal US done shows bilateral simple renal cysts -monitor BUN/Cr daily Code(s): N18.9 - CHRONIC KIDNEY DISEASE, UNSPECIFIED (7) Positive urine culture Assessment/Plan: -ID on board -no leukocytosis and afebrile -asymptomatic no need for ABT at t his time Code(s): R82.79 - OTHER ABNORMAL FINDINGS ON MICROBIOLOG EXAMINATION OF URINE Assessment/Plan see problem list dvt ppx
[2018-06-03] MEDS ORDERED: ALBUTEROL SO4 0.083% IH SOL 2.5 MG/3 ML VIAL.NEB. NEB PRN (12:59)
--- NOTE | 2018-06-03 14:49 | CON.PULM ---
Consult Consult Specialty:: PULMONARY Referred by:: KEEGAN Reason for Consultation:: COPD - History of Present Illness Chief Complaint: NO SOB/COUGH History of Present Illness: 77F admitted from OR for evaluation of anemia. Hgb 5.2 on admission. received 2 UPRBC. Concern for volume overload after transfusions. Given lasix. Tarry stool noted in ED. Patient denies abdominal pain. Denies ever having had EGD/ Colonoscopy. No family history of colorectal cancer. Home med list includes prednisone, iron and pepcid. Evaluated in 12/09 for anemia: at that time she declined procedures and did not want medical staff to discuss things with her family members. - History Source History Provided By: Patient, Medical Record Limitations to Obtaining History: Clinical Condition - Past Medical History FAMILY AND MARRIAGE COUNSELLOR: Yes: Dementia, Parkinson's Cardio/Vascular: Yes: HTN, Hyperlipdemia Renal/: Yes: Renal Inusuff Psych: Yes: Depression Rheumatology: Yes: Other (arthritis) Endocrine: Yes: Hypothyroidism - Past Surgical History Past Surgical History: Yes: Appendectomy, Tonsillectomy - Alcohol/Substance Use Hx Alcohol Use: No History of Substance Use: reports: None - Smoking History Smoking history: Never smoked Have you smoked in the past 12 months: No Aproximately how many cigarettes per day: 5 If you are a former smoker, when did you quit?: 5 years ago - Social History Usual Living Arrangement: [facility] ADL: Support Services History of Recent Travel: No Home Medications - Allergies Allergies/Adverse Reactions: Allergies Allergy/AdvReac Type Severity Reaction Status Date / Time No Known Allergies Allergy Verified 05/27/18 17:34 - Home Medications Home Medications: Ambulatory Orders Amlodipine Besylate [Norvasc -] 10 mg PO DAILY 05/27/18 Escitalopram Oxalate [Lexapro -] 20 mg PO DAILY 05/27/18 Famotidine [Pepcid] 20 mg PO 05/27/18 Ferrous Sulfate 325 mg PO 05/27/18 Hydralazine HCl 50 mg PO TID 05/27/18 Latanoprost 0.005% Eye Drops [Xalatan 0.005% Eye Drops -] 1 drop OP HS 05/27/18 Levothyroxine [Synthroid -] 100 mcg PO DAILY 05/27/18 Polyethylene Glycol 3350 [Miralax (For Daily Use) -] 17 gm PO DAILY 05/27/18 Prednisone 5 mg PO 05/27/18 Sodium Bicarbonate - 650 mg PO DAILY 05/27/18 Tamsulosin HCl [Flomax] 0.4 mg PO 05/27/18 Family Disease History - Family Disease History Family Disease History: Other: Father ( 70's: pancreatic Ca), Mother (: 70's: [place]), Brother (None), Sister (None), Daughter (3 daughters, 2 , ? causes) Review of Systems - Review of Systems Constitutional: denies: Fever Eyes: denies: Blurred Vision HENT: denies: Difficult Swallowing Neck: denies: Decreased ROM Cardiovascular: denies: Chest Pain Respiratory: denies: Cough, SOB Physical Exam Vital Sings: Vital Signs Temperature 98.3 F 06/03/18 05:55 Pulse Rate 56 L 06/03/18 13:55 Respiratory Rate 20 06/03/18 13:55 Blood Pressure 137/66 06/03/18 13:55 O2 Sat by Pulse Oximetry (%) 100 06/02/18 21:00 Constitutional: Yes: Calm Eyes: Yes: EOM Intact HENT: Yes: Normocephalic Neck: Yes: Trachea Midline Cardiovascular: Yes: S1, S2 Respiratory: Yes: CTA Bilaterally Gastrointestinal: Yes: Normal Bowel Sounds Edema: No Labs: CBC, BMP 06/03/18 06:10 06/03/18 06:10 Imaging - Results Chest X-ray: Report Reviewed, Image Reviewed Problem List - Problems (1) Anemia Code(s): D64.9 - ANEMIA, UNSPECIFIED Qualifiers: Anemia type: unspecified type Qualified Code(s): D64.9 - Anemia, unspecified (2) GI bleed Code(s): K92.2 - GASTROINTESTINAL HEMORRHAGE, UNSPECIFIED Qualifiers: GI bleed type/associated pathology: unspecified gastrointestinal hemorrhage type Qualified Code(s): K92.2 - Gastrointestinal hemorrhage, unspecified (3) Hypothyroid Code(s): E03.9 - HYPOTHYROIDISM, UNSPECIFIED (4) HTN (hypertension) Code(s): I10 - ESSENTIAL (PRIMARY) HYPERTENSION (5) Hypothyroid Code(s): E03.9 - HYPOTHYROIDISM, UNSPECIFIED Assessment/Plan COPD IS STABLE AGREE WITH NEBS PRN OOB TO CHAIR/PT O2 PRN/CHECK SPO2 ON R/A R TYLER [facility]ON
--- NOTE | 2018-06-03 16:17 | PN ---
Progress Note, Physician History of Present Illness: Pt seen and examined at bedside. She is awake and is asking to go back to rehab. She denies shortness of breath. - Current Medication List Current Medications: Active Medications Albuterol Sulfate (Ventolin 0.083% Nebulizer Soln -) 1 amp NEB Q6H PRN PRN Reason: SHORT OF BREATH/WHEEZING Amlodipine Besylate (Norvasc -) 10 mg PO DAILY [facility] Last Admin: 06/03/18 10:45 Dose: 10 mg Escitalopram Oxalate (Lexapro -) 20 mg PO DAILY [facility] Last Admin: 06/03/18 10:46 Dose: 20 mg Ferrous Sulfate (Feosol -) 325 mg PO DAILY [facility] Last Admin: 06/03/18 10:45 Dose: 325 mg Hydralazine HCl (Apresoline -) 50 mg PO TID [facility] Last Admin: 06/03/18 13:55 Dose: 50 mg Latanoprost (Xalatan 0.005% Eye Drops -) 1 drop OU HS [facility] Last Admin: 06/02/18 21:51 Dose: 1 drop Levothyroxine Sodium (Synthroid -) 112 mcg PO DAILY@0700 [facility] Last Admin: 06/03/18 06:58 Dose: 112 mcg Pantoprazole Sodium (Protonix -) 40 mg PO BID [facility] Last Admin: 06/03/18 10:45 Dose: 40 mg Polyethylene Glycol (Miralax (For Daily Use) -) 17 gm PO DAILY [facility] Last Admin: 06/03/18 10:46 Dose: Not Given Prednisone (Deltasone -) 5 mg PO DAILY [facility] Last Admin: 06/03/18 10:45 Dose: 5 mg Ranitidine HCl (Zantac -) 150 mg PO DAILY [facility] Last Admin: 06/03/18 10:45 Dose: 150 mg Sodium Bicarbonate (Sodium Bicarbonate -) 1,300 mg PO BID [facility] Last Admin: 06/03/18 10:48 Dose: 1,300 mg Tamsulosin HCl (Flomax -) 0.4 mg PO HS [facility] Last Admin: 06/02/18 21:49 Dose: 0.4 mg - Objective Vital Signs: Vital Signs Temperature 98.3 F 06/03/18 05:55 Pulse Rate 56 L 06/03/18 13:55 Respiratory Rate 20 06/03/18 13:55 Blood Pressure 137/66 06/03/18 13:55 O2 Sat by Pulse Oximetry (%) 100 06/02/18 21:00 Constitutional: Yes: Calm Eyes: Yes: Conjunctiva Clear HENT: Yes: Atraumatic Cardiovascular: Yes: S1, S2 Respiratory: Yes: CTA Bilaterally Gastrointestinal: Yes: Soft Musculoskeletal: Yes: WNL Edema: No Neurological: Yes: Oriented Labs: CBC, BMP 06/03/18 06:10 06/03/18 06:10 INR, PTT INR 0.93 (0.83-1.09) 05/28/18 07:00 Assessment/Plan Current Medications Generic Name Dose Route Start Last Admin Trade Name Freq PRN Reason Stop Dose Admin Albuterol Sulfate 1 amp 06/03/18 12:59 Ventolin 0.083% Nebulizer Soln - NEB Q6H PRN SHORT OF BREATH/WHEEZING Amlodipine Besylate 10 mg 05/28/18 10:00 06/03/18 10:45 Norvasc - PO 10 mg DAILY [facility] Administration Escitalopram Oxalate 20 mg 05/28/18 10:00 06/03/18 10:46 Lexapro - PO 20 mg DAILY [facility] Administration Ferrous Sulfate 325 mg 05/28/18 10:00 06/03/18 10:45 Feosol - PO 325 mg DAILY [facility] Administration Hydralazine HCl 50 mg 05/28/18 06:00 06/03/18 13:55 Apresoline - PO 50 mg TID [facility] Administration Latanoprost 1 drop 05/28/18 22:00 06/02/18 21:51 Xalatan 0.005% Eye Drops - OU 1 drop HS [facility] Administration Levothyroxine Sodium 112 mcg 05/30/18 11:45 06/03/18 06:58 Synthroid - PO 112 mcg DAILY@0700 [facility] Administration Pantoprazole Sodium 40 mg 06/01/18 10:00 06/03/18 10:45 Protonix - PO 40 mg BID [facility] Administration Polyethylene Glycol 17 gm 05/28/18 10:00 06/03/18 10:46 Miralax (For Daily Use) - PO Not Given DAILY [facility] Prednisone 5 mg 05/28/18 10:00 06/03/18 10:45 Deltasone - PO 5 mg DAILY [facility] Administration Ranitidine HCl 150 mg 05/28/18 10:00 06/03/18 10:45 Zantac - PO 150 mg DAILY [facility] Administration Sodium Bicarbonate 1,300 mg 05/29/18 22:00 06/03/18 10:48 Sodium Bicarbonate - PO 1,300 mg BID [facility] Administration Tamsulosin HCl 0.4 mg 05/28/18 22:00 06/02/18 21:49 Flomax - PO 0.4 mg HS [facility] Administration Impression 1. CKD 2. right renal cyst 3. toe ulcer 4. hypothryoid 5. dementia 6. parkinsons 7. HTN 8. gout 9. uremia 10. anemia 11. GI bleed Plan - renal function continues to improve - still unclear why she is on prednisone 5 mg daily and for how long - she is refusing workup - monitor hg - gi bleed and steroids can contribute to elevated bun
[2018-06-03] MEDS: TAMSULOSIN HCL 0.4 MG CAP PO SCH (21:15)
[2018-06-03] MEDS: LATANOPROST 0.005% OPHTH SOLN 2.5ML BOTTLE OU SCH (21:15)
[2018-06-04] MEDS: LEVOTHYROXINE NA 112 MCG TABLET (FP) PO SCH (06:10)
[2018-06-04] MEDS: hydrALAZINE HCL 50 MG TABLET (FP) PO SCH ×2 (06:10→13:27)
[2018-06-04] MEDS ORDERED: ESCITALOPRAM OXALATE 10 MG TABLET (FP) ONE (09:14)
[2018-06-04] MEDS: ESCITALOPRAM OXALATE 20 MG TABLET (FP) PO SCH (09:21)
[2018-06-04] MEDS: SODIUM BICARBONATE 650 MG TABLET PO SCH (09:21)
[2018-06-04] MEDS: PANTOPRAZOLE 40 MG TABLET (FP) PO SCH (09:21)
[2018-06-04] MEDS: amLODIPine BESYLATE 10 MG TABLET (FP) PO SCH (09:21)
[2018-06-04] MEDS: FERROUS SO4 325 MG TABLET (FP) PO SCH (09:22)
[2018-06-04] MEDS: predniSONE 5 MG TABLET (UD) PO SCH (09:22)
[2018-06-04] MEDS: RANITIDINE HCL 150 MG TABLET (FP) PO SCH (09:22)
[2018-06-04] MEDS: POLYETHYLENE GLYCOL 3350 119 GM BTL PO SCH (09:24)
--- NOTE | 2018-06-04 13:09 | PN ---
Progress Note (short form) - Note Progress Note: PULMONARY Denies shortness of breath, cough or wheezing. Vital Signs Period Temp Pulse Resp BP Sys/Rolon Pulse Ox Last 24 Hr 98.3 F-99.3 F 56-66 18-20 112-166/50-66 97-100 Gen: NAD at rest Heart: RRR Lung: decreased breath sounds at the bases Abd: soft, nontender Ext: no edema CBC, BMP 06/03/18 06:10 06/03/18 06:10 Active Medications Albuterol Sulfate (Ventolin 0.083% Nebulizer Soln -) 1 amp NEB Q6H PRN PRN Reason: SHORT OF BREATH/WHEEZING Amlodipine Besylate (Norvasc -) 10 mg PO DAILY [facility] Last Admin: 06/04/18 09:21 Dose: 10 mg Escitalopram Oxalate (Lexapro -) 20 mg PO DAILY [facility] Last Admin: 06/04/18 09:21 Dose: 20 mg Ferrous Sulfate (Feosol -) 325 mg PO DAILY [facility] Last Admin: 06/04/18 09:22 Dose: 325 mg Hydralazine HCl (Apresoline -) 50 mg PO TID [facility] Last Admin: 06/04/18 06:10 Dose: 50 mg Latanoprost (Xalatan 0.005% Eye Drops -) 1 drop OU HS [facility] Last Admin: 06/03/18 21:15 Dose: 1 drop Levothyroxine Sodium (Synthroid -) 112 mcg PO DAILY@0700 [facility] Last Admin: 06/04/18 06:10 Dose: 112 mcg Pantoprazole Sodium (Protonix -) 40 mg PO BID [facility] Last Admin: 06/04/18 09:21 Dose: 40 mg Polyethylene Glycol (Miralax (For Daily Use) -) 17 gm PO DAILY [facility] Last Admin: 06/04/18 09:24 Dose: 17 gm Prednisone (Deltasone -) 5 mg PO DAILY [facility] Last Admin: 06/04/18 09:22 Dose: 5 mg Ranitidine HCl (Zantac -) 150 mg PO DAILY [facility] Last Admin: 06/04/18 09:22 Dose: 150 mg Sodium Bicarbonate (Sodium Bicarbonate -) 1,300 mg PO BID [facility] Last Admin: 06/04/18 09:21 Dose: 1,300 mg Tamsulosin HCl (Flomax -) 0.4 mg PO HS [facility] Last Admin: 06/03/18 21:15 Dose: 0.4 mg A/P GI Bleed Anemia +Troponins COPD Hypothyroidism CKD HTN Dementia - monitor H/H - protonix - inhaled bronchodilators - O2 to keep SpO2 >90% - DVT prophylaxis
--- NOTE | 2018-06-04 14:19 | DS ---
Physical Examination Vital Signs: Vital Signs Temperature 98.6 F 06/04/18 13:43 Pulse Rate 66 06/04/18 13:43 Respiratory Rate 18 06/04/18 10:00 Blood Pressure 134/49 L 06/04/18 13:43 O2 Sat by Pulse Oximetry (%) 100 06/04/18 09:00 Findings/Remarks: This is a 77 year old female with a past medical history of GERD, GI Beed, anemia who was sent from [facility] with a hemoglobin of 4.7. Pt denies abdominal pain, diarrhea, constipation, nausea, vomiting, hematochezia, hematemesis, melena. Denies lightheadedness, dizziness, SOB. Reports feeling well. Pt wants to go home. Pt was receiving 0.45NS @ 60cc/hr via hypodermoclysis at the ID. Pt is refusing any intervention at this time Seen by Pulmonary GI and Nephrology Constitutional: Yes: Well Nourished, No Distress, Calm Cardiovascular: Yes: Regular Rate and Rhythm Respiratory: Yes: Regular Gastrointestinal: Yes: Normal Bowel Sounds, Soft Musculoskeletal: Yes: WNL Extremities: Yes: WNL Edema: No Peripheral Pulses WNL: Yes Neurological: Yes: Alert, Oriented Psychiatric: Yes: Alert, Oriented Labs: CBC, BMP 06/03/18 06:10 06/03/18 06:10 Discharge Summary Reason For Visit: GASTROINTESTINAL HEMORRAHAGE,ANEMIA Current Active Problems Anemia (Acute) Asymptomatic bacteriuria (Acute) CHF (congestive heart failure) (Acute) COPD (chronic obstructive pulmonary disease) (Acute) GI bleed (Acute) Hypothyroid (Acute) Positive urine culture (Acute) Hospital Course: Laboratory Last Values WBC 6.9 K/mm3 (4.0-10.0) 06/03/18 06:10 RBC 2.69 M/mm3 (3.60-5.2) L 06/03/18 06:10 Hgb 8.1 GM/dL (10.7-15.3) L 06/03/18 06:10 Hct 24.1 % (32.4-45.2) L 06/03/18 06:10 MCV 89.4 fl (80-96) 06/03/18 06:10 MCH 29.9 pg (25.7-33.7) 06/03/18 06:10 MCHC 33.5 g/dl (32.0-36.0) 06/03/18 06:10 RDW 15.2 % (11.6-15.6) 06/03/18 06:10 Plt Count 417 K/MM3 (134-434) 06/03/18 06:10 MPV 7.2 fl (7.5-11.1) L 06/03/18 06:10 Absolute Neuts (auto) 5.1 K/mm3 (1.5-8.0) 05/31/18 06:30 Neutrophils % 73.6 % (42.8-82.8) 05/31/18 06:30 Neutrophils % (Manual) 94.0 % (42.8-82.8) H 05/28/18 14:15 Band Neutrophils % 0.0 % 05/28/18 14:15 Lymphocytes % 14.9 % (8-40) 05/31/18 06:30 Lymphocytes % (Manual) 2.0 % (8-40) L D 05/28/18 14:15 Monocytes % 7.0 % (3.8-10.2) 05/31/18 06:30 Monocytes % (Manual) 4 % (3.8-10.2) 05/28/18 14:15 Eosinophils % 3.6 % (0-4.5) 05/31/18 06:30 Eosinophils % (Manual) 0.0 % (0-4.5) D 05/28/18 14:15 Basophils % 0.9 % (0-2.0) 05/31/18 06:30 Basophils % (Manual) 0.0 % (0-2.0) 05/28/18 14:15 Myelocytes % (Man) 0 % (0-2) 05/28/18 14:15 Promyelocytes % (Man) 0 % (0-2) 05/28/18 14:15 Blast Cells % (Manual) 0 % (0-0) 05/28/18 14:15 Nucleated RBC % 0 % (0-0) 05/31/18 06:30 Metamyelocytes 0 % (0-2) 05/28/18 14:15 Hypochromia 0 05/28/18 14:15 Platelet Estimate Normal 05/28/18 14:15 Polychromasia 1+ 05/28/18 14:15 Poikilocytosis 1+ 05/28/18 14:15 Anisocytosis 1+ 05/28/18 14:15 Microcytosis 1+ 05/28/18 14:15 Macrocytosis 1+ 05/28/18 14:15 Ovalocytes 1+ 05/28/18 14:15 PT with INR 11.00 SEC (9.7-13.0) 05/28/18 07:00 INR 0.93 (0.83-1.09) 05/28/18 07:00 Sodium 134 mmol/L (136-145) L 06/03/18 06:10 Potassium 4.3 mmol/L (3.5-5.1) 06/03/18 06:10 Chloride 101 mmol/L (98-107) 06/03/18 06:10 Carbon Dioxide 29 mmol/L (21-32) 06/03/18 06:10 Anion Gap 4 MMOL/L (8-16) L 06/03/18 06:10 BUN 68 mg/dL (7-18) H 06/03/18 06:10 Creatinine 2.3 mg/dL (0.55-1.3) H 06/03/18 06:10 Creat Clearance w eGFR 20.67 (>60) 06/03/18 06:10 Random Glucose 69 mg/dL (74-106) L 06/03/18 06:10 Calcium 8.4 mg/dL (8.5-10.1) L 06/03/18 06:10 Phosphorus 3.3 mg/dL (2.5-4.9) 05/28/18 07:00 Magnesium 2.7 mg/dL (1.8-2.4) H 05/28/18 07:00 Total Bilirubin 0.3 mg/dL (0.2-1) 06/03/18 06:10 AST 14 U/L (15-37) L 06/03/18 06:10 ALT 10 U/L (13-61) L 06/03/18 06:10 Alkaline Phosphatase 69 U/L (45-117) 06/03/18 06:10 Creatine Kinase 109 U/L (26-192) 05/29/18 06:45 Creatine Kinase Index 7.0 % (0.0-5.0) H* 05/28/18 14:15 CK-MB (CK-2) 12.0 ng/mL (0.5-3.6) H 05/28/18 14:15 Troponin I 1.23 ng/ml (0.00-0.05) H* 05/29/18 06:45 B-Natriuretic Peptide 10101.1 pg/ml (5-450) H 06/02/18 06:40 Total Protein 5.9 g/dl (6.4-8.2) L 06/03/18 06:10 Albumin 2.8 g/dl (3.4-5.0) L 06/03/18 06:10 TSH 13.40 uIU/ml (0.358-3.74) H 05/28/18 07:00 Urine Eosinophils None seen % (.) 05/28/18 17:01 Stool Occult Blood Positive (NEGATIVE) 05/27/18 18:25 Blood Type O NEGATIVE 05/27/18 18:23 Antibody Screen Negative 05/27/18 18:23 Crossmatch See Detail 05/27/18 18:23 Microbiology 05/28/18 20:30 Urine - Urine Clean Catch Urine Culture - Final Klebsiella Pneumoniae Vital Signs Temp 98.6 F 06/04/18 13:43 Pulse 66 06/04/18 13:43 Resp 18 06/04/18 10:00 BP 134/49 L 06/04/18 13:43 Pulse Ox 100 06/04/18 09:00 Intake & Output 06/03/18 06/04/18 06/04/18 23:59 11:59 23:59 Intake Total 550 200 250 Balance 550 200 250 Weight 58.967 kg Intake: Oral 550 200 250 Other: Voiding Method Incontinent Incontinent # Unmeasured Voids Void 2 2 1 Bowel Movement Yes Yes No # Bowel Movements 0 Height 5 ft 2 in Body Mass Index (BMI) 23.8 Condition: Stable - Instructions Diet, Activity, Other Instructions: repeat CBC in 1 week Disposition: INTERMEDIATE FACILITY - Home Medications Comprehensive Discharge Medication List: Ambulatory Orders Amlodipine Besylate [Norvasc -] 10 mg PO DAILY 05/27/18 Escitalopram Oxalate [Lexapro -] 20 mg PO DAILY 05/27/18 Famotidine [Pepcid] 20 mg PO 05/27/18 Ferrous Sulfate 325 mg PO 05/27/18 Hydralazine HCl 50 mg PO TID 05/27/18 Latanoprost 0.005% Eye Drops [Xalatan 0.005% Eye Drops -] 1 drop OP HS 05/27/18 Levothyroxine [Synthroid -] 100 mcg PO DAILY 05/27/18 Polyethylene Glycol 3350 [Miralax (For Daily Use) -] 17 gm PO DAILY 05/27/18 Prednisone 5 mg PO 05/27/18 Sodium Bicarbonate - 650 mg PO DAILY 05/27/18 Tamsulosin HCl [Flomax] 0.4 mg PO 05/27/18
--- NOTE | 2018-06-04 17:37 | PN ---
Progress Note, Physician History of Present Illness: Pt seen and examined at bedside. She is awake and appears comfortable. - Current Medication List Current Medications: Active Medications Albuterol Sulfate (Ventolin 0.083% Nebulizer Soln -) 1 amp NEB Q6H PRN PRN Reason: SHORT OF BREATH/WHEEZING Amlodipine Besylate (Norvasc -) 10 mg PO DAILY [facility] Last Admin: 06/04/18 09:21 Dose: 10 mg Escitalopram Oxalate (Lexapro -) 20 mg PO DAILY [facility] Last Admin: 06/04/18 09:21 Dose: 20 mg Ferrous Sulfate (Feosol -) 325 mg PO BID [facility] Hydralazine HCl (Apresoline -) 50 mg PO TID [facility] Last Admin: 06/04/18 13:27 Dose: 50 mg Latanoprost (Xalatan 0.005% Eye Drops -) 1 drop OU HS [facility] Last Admin: 06/03/18 21:15 Dose: 1 drop Levothyroxine Sodium (Synthroid -) 112 mcg PO DAILY@0700 [facility] Last Admin: 06/04/18 06:10 Dose: 112 mcg Pantoprazole Sodium (Protonix -) 40 mg PO BID [facility] Last Admin: 06/04/18 09:21 Dose: 40 mg Polyethylene Glycol (Miralax (For Daily Use) -) 17 gm PO DAILY [facility] Last Admin: 06/04/18 09:24 Dose: 17 gm Prednisone (Deltasone -) 5 mg PO DAILY [facility] Last Admin: 06/04/18 09:22 Dose: 5 mg Ranitidine HCl (Zantac -) 150 mg PO DAILY [facility] Last Admin: 06/04/18 09:22 Dose: 150 mg Sodium Bicarbonate (Sodium Bicarbonate -) 1,300 mg PO BID [facility] Last Admin: 06/04/18 09:21 Dose: 1,300 mg Tamsulosin HCl (Flomax -) 0.4 mg PO HS [facility] Last Admin: 06/03/18 21:15 Dose: 0.4 mg - Objective Vital Signs: Vital Signs Temperature 98.6 F 06/04/18 13:43 Pulse Rate 66 06/04/18 13:43 Respiratory Rate 18 06/04/18 10:00 Blood Pressure 134/49 L 06/04/18 13:43 O2 Sat by Pulse Oximetry (%) 100 06/04/18 09:00 Constitutional: Yes: Calm Eyes: Yes: Conjunctiva Clear HENT: Yes: Atraumatic Neck: Yes: Supple Cardiovascular: Yes: S1, S2 Respiratory: Yes: CTA Bilaterally Gastrointestinal: Yes: Soft Genitourinary: Yes: WNL Musculoskeletal: Yes: WNL Edema: No Neurological: Yes: Oriented Labs: CBC, BMP 06/03/18 06:10 06/03/18 06:10 INR, PTT INR 0.93 (0.83-1.09) 05/28/18 07:00 Assessment/Plan Current Medications Generic Name Dose Route Start Last Admin Trade Name Freq PRN Reason Stop Dose Admin Albuterol Sulfate 1 amp 06/03/18 12:59 Ventolin 0.083% Nebulizer Soln - NEB Q6H PRN SHORT OF BREATH/WHEEZING Amlodipine Besylate 10 mg 05/28/18 10:00 06/04/18 09:21 Norvasc - PO 10 mg DAILY [facility] Administration Escitalopram Oxalate 20 mg 05/28/18 10:00 06/04/18 09:21 Lexapro - PO 20 mg DAILY [facility] Administration Ferrous Sulfate 325 mg 06/04/18 22:00 Feosol - PO BID [facility] Hydralazine HCl 50 mg 05/28/18 06:00 06/04/18 13:27 Apresoline - PO 50 mg TID [facility] Administration Latanoprost 1 drop 05/28/18 22:00 06/03/18 21:15 Xalatan 0.005% Eye Drops - OU 1 drop HS [facility] Administration Levothyroxine Sodium 112 mcg 05/30/18 11:45 06/04/18 06:10 Synthroid - PO 112 mcg DAILY@0700 [facility] Administration Pantoprazole Sodium 40 mg 06/01/18 10:00 06/04/18 09:21 Protonix - PO 40 mg BID [facility] Administration Polyethylene Glycol 17 gm 05/28/18 10:00 06/04/18 09:24 Miralax (For Daily Use) - PO 17 gm DAILY [facility] Administration Prednisone 5 mg 05/28/18 10:00 06/04/18 09:22 Deltasone - PO 5 mg DAILY [facility] Administration Ranitidine HCl 150 mg 05/28/18 10:00 06/04/18 09:22 Zantac - PO 150 mg DAILY [facility] Administration Sodium Bicarbonate 1,300 mg 05/29/18 22:00 06/04/18 09:21 Sodium Bicarbonate - PO 1,300 mg BID [facility] Administration Tamsulosin HCl 0.4 mg 05/28/18 22:00 06/03/18 21:15 Flomax - PO 0.4 mg HS [facility] Administration Impression 1. CKD 2. right renal cyst 3. toe ulcer 4. hypothryoid 5. dementia 6. parkinsons 7. HTN 8. gout 9. uremia 10. anemia 11. GI bleed Plan - discussed with medical team, pt is going back to rehab today - she will start prednisone taper - monitor renal function - pt can follow with me in office - gi bleed and steroids can contribute to elevated bun
[2018-06-04 17:39] VITALS: BP 138/52; PULSE 62; TEMP 98.4
[2018-06-04] MEDS ORDERED: FERROUS SO4 325 MG TABLET (FP) PO SCH (22:00)
== END 2018-06-04 18:12 | DRG 378 ==
LOC: JER 17:26 → JERBED 19:11 → J6S 23:18
PROVIDERS: ADMIT Internal Medicine; ATTEND Family Medicine
PROC: 30233N1 Transfusion of Nonautologous Red Blood Cells into Peripheral Vein, Percutaneous Approach (ICD-10-PCS; principal; 2018-05-27)
DX: K92.2 Gastrointestinal hemorrhage, unspecified (principal); I24.8 Other forms of acute ischemic heart disease; L97.508 Non-pressure chronic ulcer of other part of unspecified foot with other specified severity; N39.0 Urinary tract infection, site not specified; J90 Pleural effusion, not elsewhere classified; I13.0 Hypertensive heart and chronic kidney disease with heart failure and stage 1 through stage 4 chronic kidney disease, or unspecified chronic kidney disease; D64.9 Anemia, unspecified; G20 Parkinson's disease; F02.80 Dementia in other diseases classified elsewhere, unspecified severity, without behavioral disturbance, psychotic disturbance, mood disturbance, and anxiety; I10 Essential (primary) hypertension; E78.5 Hyperlipidemia, unspecified; J44.9 Chronic obstructive pulmonary disease, unspecified; K21.9 Gastro-esophageal reflux disease without esophagitis; F32.9 Major depressive disorder, single episode, unspecified; E87.5 Hyperkalemia; E03.9 Hypothyroidism, unspecified; M10.9 Gout, unspecified; N28.1 Cyst of kidney, acquired; R82.71 Bacteriuria; B96.20 Unspecified Escherichia coli [E. coli] as the cause of diseases classified elsewhere; N18.9 Chronic kidney disease, unspecified; Z87.891 Personal history of nicotine dependence
CPT/HCPCS: 36415; 36430; 36511; 71045-TC-FY; 71046-TC-FY; 76705-TC; 76775-TC; 80053; 82272; 82550; 82553; 83735; 83880; 84100; 84443; 84484; 85025; 85027; 85610; 86850; 86900; 86901; 86922; 87086; 87186; 87205; 93005; 93010; 93306-TC; 94010; 94640; 99285-25; J1756; P9038; P9058

== ENCOUNTER 2018-06-23 12:47 | Inpatient (IN) | payer OTHER, BC ==
--- NOTE | 2018-06-23 13:32 | PDOC ---
History of Present Illness - General Chief Complaint: Weakness Stated Complaint: WEAKNESS - History of Present Illness Initial Comments: The pt is a 77F w/ a history of HTN, previous GI bleed, COPD, CHF who presents from her [facility] s/p episode of being unresponsive for 3 minutes yesterday. The pt reports several days of abdominal pain. Pain is reported as generalized, constant, no exacerbated or alleviated by anything History limited 2/ patient's mentation. 06/23/18 16:45 06/23/18 19:01 Past History - Past Medical History Allergies/Adverse Reactions: Allergies Allergy/AdvReac Type Severity Reaction Status Date / Time No Known Allergies Allergy Verified 05/27/18 17:34 Home Medications: Ambulatory Orders Amlodipine Besylate [Norvasc -] 10 mg PO DAILY 05/27/18 Escitalopram Oxalate [Lexapro -] 20 mg PO DAILY 05/27/18 Famotidine [Pepcid] 20 mg PO 05/27/18 Ferrous Sulfate 325 mg PO 05/27/18 Hydralazine HCl 50 mg PO TID 05/27/18 Latanoprost 0.005% Eye Drops [Xalatan 0.005% Eye Drops -] 1 drop OP HS 05/27/18 Levothyroxine [Synthroid -] 100 mcg PO DAILY 05/27/18 Polyethylene Glycol 3350 [Miralax 119 gm Btl -] 17 gm PO DAILY 05/27/18 Prednisone 5 mg PO 05/27/18 Sodium Bicarbonate - 650 mg PO DAILY 05/27/18 Tamsulosin HCl [Flomax] 0.4 mg PO 05/27/18 Albuterol 0.083% Nebulizer Latoya [Ventolin 0.083% Nebulizer Soln -] 1 amp NEB Q6H PRN amp 06/04/18 Ferrous Sulfate [Feosol] 325 mg PO BID ud 06/04/18 Pantoprazole Sodium [Protonix -] 40 mg PO BID tablet.ec 06/04/18 Sodium Bicarbonate - 1,300 mg PO BID tablet 06/04/18 Anemia: Yes Asthma: No Cancer: No Cardiac Disorders: No CVA: No COPD: Yes CHF: No Dementia: Yes Diabetes: No GI Disorders: No Disorders: Yes (incont) HTN: Yes Hypercholesterolemia: Yes Liver Disease: No Seizures: No Thyroid Disease: Yes (hypothyroidsm) - Surgical History Abdominal Surgery: No Appendectomy: Yes Cardiac Surgery: No Cholecystectomy: No Lung Surgery: No Neurologic Surgery: No Orthopedic Surgery: No - Immunization History Immunization Up to Date: Yes - Suicide/Smoking/Psychosocial Hx Smoking History: Former smoker Have you smoked in the past 12 months: No Number of Cigarettes Smoked Daily: 5 If you are a former smoker, when did you quit?: 5 years ago Hx Alcohol Use: No Drug/Substance Use Hx: No Substance Use Type: None Hx Substance Use Treatment: No Review of Systems - Review of Systems Able to Perform ROS?: No (2/2 medical condition) *Physical Exam - Vital Signs Vital Signs Temp Pulse Resp BP Pulse Ox 98.1 F 74 13 96/55 L 100 06/23/18 16:14 06/23/18 16:14 06/23/18 16:14 06/23/18 16:14 06/23/18 16:14 06/23/18 17:28 - Physical Exam Comments: GENERAL: Awake, in moderate distress HEAD: No signs of trauma, normocephalic, atraumatic EYES: PERRLA, EOMI, sclera anicteric, conjunctiva clear ENT: Hearing grossly normal, nares patent, oropharynx clear without exudates. Moist mucosa LUNGS: No distress, speaks full sentences, clear to auscultation bilaterally HEART: Regular rate and rhythm, normal S1 and S2, no murmurs appreciated, peripheral pulses normal and equal bilaterally ABDOMEN: Soft, nontender, normoactive bowel sounds. No guarding, no rebound RECTAL: Black stool, normal tone, no gross bright red blood on exam glove EXTREMITIES: Normal inspection, Normal range of motion, no edema. No clubbing or cyanosis NEUROLOGICAL: Cranial nerves II through XII grossly intact. Follows simple commands, sensation intact to light touch throughout SKIN: Ashen appearing; warm, dry 06/23/18 17:28 ED Treatment Course - LABORATORY CBC & Chemistry Diagram: 06/23/18 13:23 06/23/18 13:23 - RADIOLOGY Radiology Studies Ordered: Category Date Time Status CHEST X-RAY PORTABLE* [RAD] Stat Radiology 06/23/18 13:20 Ordered Medical Decision Making - Critical Care Time Total Critical Care Time (minutes): 35 Critical Care Statement: The care of this patient involved high complexity decision making to prevent further life threatening deterioration of the patient 's condition and/or to evaluate & treat vital organ system(s) failure or risk of failure. - Medical Decision Making The pt is a 77F w/ a history of CHF, COPD, previous GI bleed who presents from her NH for evaluation of an episode of unresponsiveness for 3 minutes yesterday and reported generalized abdominal pain. DDx: Consider GI bleed, mesenteric ischemia, intra-abdominal infection ED Course +FOBT Symptomatic anemia, Hgb 3.8, likely 2/2 GI bleed -Will transfuse 2u pRBC 06/23/18 16:52 Health Care Proxy: [phone] [place] to fax over proxy paperwork 06/23/18 17:18 Cr 2.9, pt with CKD but not on iHD, Nephrology consulted, will avoid IV contrast at this time Will obtain CT A&P w/o to evaluate for gross intra-abdominal pathology Pt discussed with GI who will evaluate the pt Trop I elevated Lactate elevated -At this time, likely 2/2 demand ischemia 2/2 anemia Plan for admission for symptomatic anemia ICU consulted 06/23/18 18:21 *DC/Admit/Observation/Transfer Diagnosis at time of Disposition: Elevated troponin, Symptomatic anemia HTN (hypertension) Qualifiers: Hypertension type: unspecified Qualified Code(s): I10 - Essential (primary) hypertension GI bleed Qualifiers: GI bleed type/associated pathology: melena Qualified Code(s): K92.1 - Melena - Discharge Dispostion Condition at time of disposition: Fair Decision to Admit order: Yes - Referrals - Patient Instructions - Post Discharge Activity
[2018-06-23 13:34] VITALS: BMI 22.1
[2018-06-23] MEDS ORDERED: SODIUM CHLORIDE 0.9% 500 ML INFUS.BAG IV ONE (13:35)
[2018-06-23] MEDS ORDERED: ACETAMINOPHEN 1000 MG/100 ML VIAL (NON FORMULARY) IVPB ONE (13:35)
[2018-06-23] MEDS ORDERED: HYDROmorphone HCL CARPU-JECT 2 MG/1 ML DISP.SYRIN IVPUSH ONE (13:37)
[2018-06-23 13:40] LABS: BASO % 0.4 % (0-2.0); HEMATOCRIT 11.7 % (32.4-45.2); LYMPH % 8.1 % (8-40); MCHC 32.6 g/dl (32.0-36.0); MEAN PLT VOLUME 7.7 fl (7.5-11.1); MONO % 3.7 % (3.8-10.2); NEUT % 87.8 % (42.8-82.8); PLATELET COUNT 527 K/MM3 (134-434); RBC 1.32 M/mm3 (3.60-5.2); RDW 16.2 % (11.6-15.6); WHITE BLOOD COUNT 10.9 K/mm3 (4.0-10.0)
[2018-06-23] MEDS ORDERED: HYDROmorphone HCl 2 MG/ML VIAL ONE (13:40)
[2018-06-23] MEDS ORDERED: ACETAMINOPHEN INJECTION 100 ML IVPB ONE (13:41)
[2018-06-23 13:45] LABS: HEMOGLOBIN 3.8 GM/dL (10.7-15.3)
[2018-06-23 13:59] LABS: INR 1.01 (0.83-1.09); PROTHROMBIN TIME (PATIENT) 11.9 SEC (9.7-13.0)
[2018-06-23 14:01] LABS: ACTIVATED PTT 28.7 SECONDS (25.2-36.5)
[2018-06-23 14:21] LABS: ALBUMIN 2.9 g/dl (3.4-5.0); ALK PHOS 66 U/L (45-117); ANION GAP 16 MMOL/L (8-16); BILIRUBIN,TOTAL 0.2 mg/dL (0.2-1); CALCIUM 8.8 mg/dL (8.5-10.1); CHLORIDE 101 mmol/L (98-107); CO2 16 mmol/L (21-32); CREATININE 2.9 mg/dL (0.55-1.3); GLUCOSE,RANDOM 139 mg/dL (74-106); POTASSIUM 4.9 mmol/L (3.5-5.1); SGOT/AST 109 U/L (15-37); SGPT/ALT 60 U/L (13-61); SODIUM 133 mmol/L (136-145); TOT PROT 6.2 g/dl (6.4-8.2)
[2018-06-23 14:24] LABS: BLOOD UREA NITROGEN 134 mg/dL (7-18)
--- NOTE | 2018-06-23 14:50 | CONSULT ---
Consult Consult Specialty:: Nephrology - History of Present Illness Chief Complaint: sent in for weakness and lethargy History of Present Illness: Pt is a 77 year old female with pmhx of ckd, htn and anemia who was sent in for weakness and decreased energy. She was found to have worsening anemia and to have worsening renal failure. She has been increasingly lethargic. She is arousable but not giving much history. She denies chest pain. She denies shortness of breath. 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's Cardio/Vascular: Yes: HTN, Hyperlipdemia Renal/: Yes: Renal Inusuff Psych: Yes: Depression Rheumatology: Yes: Other (arthritis) Endocrine: Yes: Hypothyroidism - Past Surgical History Past Surgical History: Yes: Appendectomy, Tonsillectomy - Alcohol/Substance Use Hx Alcohol Use: No History of Substance Use: reports: None - Smoking History Smoking history: Former smoker Have you smoked in the past 12 months: No Aproximately how many cigarettes per day: 5 If you are a former smoker, when did you quit?: 5 years ago - Social History Usual Living Arrangement: Longterm ADL: Support Services History of Recent Travel: No Home Medications - Allergies Allergies/Adverse Reactions: Allergies Allergy/AdvReac Type Severity Reaction Status Date / Time No Known Allergies Allergy Verified 05/27/18 17:34 - Home Medications Home Medications: Ambulatory Orders Amlodipine Besylate [Norvasc -] 10 mg PO DAILY 05/27/18 Escitalopram Oxalate [Lexapro -] 20 mg PO DAILY 05/27/18 Famotidine [Pepcid] 20 mg PO 05/27/18 Ferrous Sulfate 325 mg PO 05/27/18 Hydralazine HCl 50 mg PO TID 05/27/18 Latanoprost 0.005% Eye Drops [Xalatan 0.005% Eye Drops -] 1 drop OP HS 05/27/18 Levothyroxine [Synthroid -] 100 mcg PO DAILY 05/27/18 Polyethylene Glycol 3350 [Miralax 119 gm Btl -] 17 gm PO DAILY 05/27/18 Prednisone 5 mg PO 05/27/18 Sodium Bicarbonate - 650 mg PO DAILY 05/27/18 Tamsulosin HCl [Flomax] 0.4 mg PO 05/27/18 Albuterol 0.083% Nebulizer Latoya [Ventolin 0.083% Nebulizer Soln -] 1 amp NEB Q6H PRN amp 06/04/18 Ferrous Sulfate [Feosol] 325 mg PO BID ud 06/04/18 Pantoprazole Sodium [Protonix -] 40 mg PO BID tablet.ec 06/04/18 Sodium Bicarbonate - 1,300 mg PO BID tablet 06/04/18 Family Disease History - Family Disease History Family Disease History: Other: Father ( 70's: pancreatic [place]), Mother (: 70's: [place]), Brother (None), Sister (None), Daughter (3 daughters, 2 , ? causes) Review of Systems Findings/Remarks: pt is drowsy - Review of Systems Constitutional: reports: Malaise Eyes: reports: No Symptoms HENT: reports: No Symptoms Neck: reports: No Symptoms Gastrointestinal: reports: Vomiting Genitourinary: reports: No Symptoms Musculoskeletal: reports: Muscle Weakness Neurological: reports: Weakness Endocrine: reports: No Symptoms Hematology/Lymphatic: reports: No Symptoms Physical Exam Vital Signs: Vital Signs Temperature 98.0 F 06/23/18 12:50 Pulse Rate 74 06/23/18 12:50 Respiratory Rate 21 H 06/23/18 12:50 Blood Pressure 94/77 06/23/18 12:50 O2 Sat by Pulse Oximetry (%) 98 06/23/18 12:50 Constitutional: Yes: Calm HENT: Yes: Atraumatic Neck: Yes: Supple Cardiovascular: Yes: S1, S2 Respiratory: Yes: On Nasal O2 Gastrointestinal: Yes: Soft Renal/: Yes: WNL Musculoskeletal: Yes: Muscle Weakness Edema: No Neurological: Yes: Confusion, Lethargy Labs: CBC, BMP 06/23/18 13:23 06/23/18 13:23 Laboratory Tests 06/23/18 06/23/18 06/23/18 13:23 13:23 13:23 WBC 10.9 H Hgb 3.8 L* Plt Count 527 H D PT with INR 11.90 INR 1.01 Sodium 133 L Potassium 4.9 Chloride 101 Anion Gap 16 BUN 134 H* Creatinine 2.9 H Problem List - Problems (1) Anemia Code(s): D64.9 - ANEMIA, UNSPECIFIED Qualifiers: Anemia type: unspecified type Qualified Code(s): D64.9 - Anemia, unspecified (2) CKD (chronic kidney disease) Code(s): N18.9 - CHRONIC KIDNEY DISEASE, UNSPECIFIED Assessment/Plan Impression 1. CKD 2. right renal cyst 3. toe ulcer 4. hypothryoid 5. dementia 6. parkinsons 7. HTN 8. gout 9. uremia 10. anemia 11. GI bleed 12. LUCERO Plan - transfuse prbc - check stool for occult blood - discussed with ER - follow lactic acid - admit to monitored setting
--- NOTE | 2018-06-23 14:53 | PDOC ---
Documentation entered by Lamonte Romano SCRIBE, acting as scribe for Jeff Eastman MD. Jeff Eastman MD: This documentation has been prepared by the Rosalina marquez Nirvannie, SCRIBE, under my direction and personally reviewed by me in its entirety. I confirm that the documentation accurately reflects all work, treatment, procedures, and medical decision making performed by me. Attending Attestation - Resident Resident Name: [email or web address] - ED Attending Attestation I have performed the following: I have examined & evaluated the patient, The case was reviewed & discussed with the resident, I agree w/resident's findings & plan - HPI HPI: 06/23/18 14:37 CC: Abdominal pain. HPI: The patient is a 77 year old female, with a significant past medical history of GI bleed, Parkinson's, Dementia, HTN, HLD, CKD, COPD, Depression, GERD, Hypothyroid, Anemia, Gout, MDD, and hyperkalemia, who presents to the emergency department with, abdominal pain, nausea, and vomiting. Patient endorses a syncopal episode yesterday. Allergies: NKDA Social history: [facility]. - Physicial Exam PE: 06/23/18 14:37 Exam: Vitals: Triage Vital signs reviewed General Appearance: +Pale. Head: Atraumatic. Rectal: Refer to resident exam. Psych: normal mood, normal affect - Critical Care Time Total Critical Care Time: 45 Critical Care Statement: The care of this patient involved high complexity decision making to prevent further life threatening deterioration of the patient 's condition and/or to evaluate & treat vital organ system(s) failure or risk of failure. - Medical Decision Making 06/23/18 18:13 Melanotic stool patient severely anemic we'll admit to telemetry ICU consultation placed Gastroenterology has been consulted Renal has been consulted Patient ordered for 2 units PRBCs We'll do to hospital for further management.
--- NOTE | 2018-06-23 16:49 | HP ---
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, 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 Cardiovascular: Yes: HTN, Hyperlipdemia Renal/: Yes: Renal Inusuff Heme/Onc: Yes: Anemia Psych: Yes: Depression Rheumatology: Yes: Other (arthritis) Endocrine: Yes: Hypothyroidism - Past Surgical History Past Surgical History: Yes: Appendectomy, Tonsillectomy - Smoking History Smoking history: Former smoker Have you smoked in the past 12 months: No Aproximately how many cigarettes per day: 5 If you are a former smoker, when did you quit?: 5 years ago - Alcohol/Substance Use Hx Alcohol Use: No History of Substance Use: reports: None - Social History ADL: Support Services History of Recent Travel: No Home Medications - Allergies Allergies/Adverse Reactions: Allergies Allergy/AdvReac Type Severity Reaction Status Date / Time No Known Allergies Allergy Verified 05/27/18 17:34 - Home Medications Home Medications: Ambulatory Orders Amlodipine Besylate [Norvasc -] 10 mg PO DAILY 05/27/18 Escitalopram Oxalate [Lexapro -] 20 mg PO DAILY 05/27/18 Famotidine [Pepcid] 20 mg PO 05/27/18 Ferrous Sulfate 325 mg PO 05/27/18 Hydralazine HCl 50 mg PO TID 05/27/18 Latanoprost 0.005% Eye Drops [Xalatan 0.005% Eye Drops -] 1 drop OP HS 05/27/18 Levothyroxine [Synthroid -] 100 mcg PO DAILY 05/27/18 Polyethylene Glycol 3350 [Miralax 119 gm Btl -] 17 gm PO DAILY 05/27/18 Prednisone 5 mg PO 05/27/18 Sodium Bicarbonate - 650 mg PO DAILY 05/27/18 Tamsulosin HCl [Flomax] 0.4 mg PO 05/27/18 Albuterol 0.083% Nebulizer Latoya [Ventolin 0.083% Nebulizer Soln -] 1 amp NEB Q6H PRN amp 06/04/18 Ferrous Sulfate [Feosol] 325 mg PO BID ud 06/04/18 Pantoprazole Sodium [Protonix -] 40 mg PO BID tablet.ec 06/04/18 Sodium Bicarbonate - 1,300 mg PO BID tablet 06/04/18 Family Disease History - Family Disease History Family Disease History: Other: Father ( 70's: pancreatic Ca), Mother (: 70's: [place]), Brother (None), Sister (None), Daughter (3 daughters, 2 , ? causes) Review of Systems Unable to obtain ROS, reason: lethargic - Review of Systems Constitutional: reports: Lethargy Physical Examination Vital Signs: Vital Signs Temperature 98.1 F 06/23/18 16:14 Pulse Rate 74 06/23/18 16:14 Respiratory Rate 13 06/23/18 16:14 Blood Pressure 96/55 L 06/23/18 16:14 O2 Sat by Pulse Oximetry (%) 100 06/23/18 16:14 Labs: CBC, BMP 06/23/18 13:23 06/23/18 13:23 Problem List - Problems (1) GIB (gastrointestinal bleeding) Assessment/Plan: NPO 2 units prbc repat cbc yoselin need atleast 4 units of prbc iv protonix dripp octreotide drip icu monitoring full code gi consult iv lsix in btw transfusion monitor respiratory status Code(s): K92.2 - GASTROINTESTINAL HEMORRHAGE, UNSPECIFIED (2) CKD (chronic kidney disease) Assessment/Plan: worsening renal falure in setting of gib renal consult noted monitor lytes and renal fucniton Code(s): N18.9 - CHRONIC KIDNEY DISEASE, UNSPECIFIED (3) HTN (hypertension) Assessment/Plan: hold all htn medications Code(s): I10 - ESSENTIAL (PRIMARY) HYPERTENSION (4) Hypothyroid Assessment/Plan: iv synthroid check tsh Code(s): E03.9 - HYPOTHYROIDISM, UNSPECIFIED
[2018-06-23] MEDS ORDERED: FUROSEMIDE 40 MG/4 ML INJECTABLE VIAL IVPUSH ONE (16:55)
[2018-06-23] MEDS ORDERED: OCTREOTIDE ACETATE 1,200 MCG in DEXTROSE 5%-WATER - 488 ML IVPB SCH (17:00)
--- NOTE | 2018-06-23 17:18 | CONSULT ---
Consultation: REQUESTING PROVIDER: CONSULT REQUEST: We have been asked to medically evaluate this patient for GI bleed. HISTORY OF PRESENT ILLNESS: The patient is a 77 year old female, with a significant past medical history of GI bleed, Parkinson's, Dementia, HTN, HLD, CKD, COPD, Depression, GERD, Hypothyroid, Anemia, Gout, MDD, and hyperkalemia, who presents to the emergency department from [facility] for weakness and lethargy. In the ED, the patient was found to have a Hb 3.8 and to be hypotensive. 2 units PRBC ordered in the ED. On my exam, patient lethargic and not able to provide a history other than stating that her stomach hurt. REVIEW OF SYSTEMS: Unable to obtain due to clinical status. PHYSICAL EXAMINATION Vital Signs - 24 hr 06/23/18 06/23/18 06/23/18 12:50 13:59 16:14 Temperature 98.0 F 98.2 F 98.1 F Pulse Rate 74 Pulse Rate [ 70 74 Apical] Respiratory 21 H 15 13 Rate Blood Pressure 94/77 Blood Pressure 113/53 L 96/55 L [Right Arm] O2 Sat by Pulse 98 100 100 Oximetry (%) GENERAL: Patient lethargic, arousable to tactile stimuli. Able to answer questions appropriately. HEAD: Normal with no signs of trauma. EYES: Pupils equal, round and reactive to light, extraocular movements intact, sclera anicteric, conjunctiva clear. No lid lag. Conjunctival pallor. NECK: Normal range of motion, supple without lymphadenopathy, JVD, or masses. LUNGS: Breath sounds equal, clear to auscultation bilaterally. No wheezes, and no crackles. No accessory muscle use. HEART: Regular rate and rhythm, normal S1 and S2 without murmur, rub or gallop. ABDOMEN: Soft, nontender, not distended, normoactive bowel sounds, no guarding, no rebound, no masses. No hepatomegaly or splenomegaly. LOWER EXTREMITIES: 2+ pulses, warm, well-perfused. No calf tenderness. No peripheral edema. NEUROLOGICAL: Unable to obtain due to clinical status SKIN: Warm, dry, normal turgor, no rashes or lesions noted. Laboratory Results - last 24 hr 06/23/18 06/23/18 06/23/18 13:20 13:20 13:23 WBC 10.9 H RBC 1.32 L Hgb 3.8 L* Hct 11.7 L MCV 89.0 MCH 29.0 MCHC 32.6 RDW 16.2 H Plt Count 527 H D MPV 7.7 Absolute Neuts (auto) 9.6 H Neutrophils % 87.8 H Lymphocytes % 8.1 D Monocytes % 3.7 L Eosinophils % 0.0 D Basophils % 0.4 Nucleated RBC % 0 PT with INR INR PTT (Actin FS) Sodium Potassium Chloride Carbon Dioxide Anion Gap BUN Creatinine Creat Clearance w eGFR Random Glucose Lactic Acid 4.7 H* Calcium Total Bilirubin AST ALT Alkaline Phosphatase Troponin I Total Protein Albumin Lipase Stool Occult Blood Blood Type O NEGATIVE Antibody Screen Negative Crossmatch See Detail 06/23/18 06/23/18 06/23/18 13:23 13:23 13:23 WBC RBC Hgb Hct MCV MCH MCHC RDW Plt Count MPV Absolute Neuts (auto) Neutrophils % Lymphocytes % Monocytes % Eosinophils % Basophils % Nucleated RBC % PT with INR 11.90 INR 1.01 PTT (Actin FS) 28.7 Sodium 133 L Potassium 4.9 Chloride 101 Carbon Dioxide 16 L Anion Gap 16 BUN 134 H* Creatinine 2.9 H Creat Clearance w eGFR 15.82 Random Glucose 139 H Lactic Acid Calcium 8.8 Total Bilirubin 0.2 AST 109 H ALT 60 Alkaline Phosphatase 66 Troponin I 1.34 H* Total Protein 6.2 L Albumin 2.9 L Lipase 132 Stool Occult Blood Blood Type Antibody Screen Crossmatch 06/23/18 16:10 WBC RBC Hgb Hct MCV MCH MCHC RDW Plt Count MPV Absolute Neuts (auto) Neutrophils % Lymphocytes % Monocytes % Eosinophils % Basophils % Nucleated RBC % PT with INR INR PTT (Actin FS) Sodium Potassium Chloride Carbon Dioxide Anion Gap BUN Creatinine Creat Clearance w eGFR Random Glucose Lactic Acid Calcium Total Bilirubin AST ALT Alkaline Phosphatase Troponin I Total Protein Albumin Lipase Stool Occult Blood Positive Blood Type Antibody Screen Crossmatch Active Medications Generic Name Dose Route Start Last Admin Trade Name Freq PRN Reason Stop Dose Admin Chlorhexidine Gluconate 1 applic 06/23/18 22:00 Hibiclens For Decolonization - TP HS LINNEA Pantoprazole Sodium 80 mg/ 100 mls @ 10 mls/hr 06/23/18 16:45 Sodium Chloride IVPB Q10H LINNEA 8 MG/HR Octreotide Acetate 1,200 mcg/ 500 mls @ 20.83 mls/hr 06/23/18 17:00 Dextrose IVPB ASDIR LINNEA 50 MCG/HR Levothyroxine Sodium 75 mcg 06/24/18 07:00 Synthroid Injection - IVPUSH DAILY@0700 LINNEA Mupirocin 1 applic 06/23/18 22:00 Bactroban Ointment (For Decolonization) - NS 06/28/18 21:59 BID LINNEA ASSESSMENT/PLAN: The patient is a 77 year old female, with a significant past medical history of GI bleed, Parkinson's, Dementia, HTN, HLD, CKD, COPD, Depression, GERD, Hypothyroid, Anemia, Gout, MDD, and hyperkalemia, who presents to the emergency department from [facility] for weakness and lethargy found to be anemic to 3.4 and hypotensive. Neuro: -baseline unknown -patient able to answer simple questions Cardiovascular: -initially hypotensive to 96/55 on arrival. -BP improved during administration of PRBC. -Monitor BP closely, maintain MAP > 60-65 -will consider central line and pressors if BP decreases. -Troponemia likely demand in the setting of anemia; will trend -rpt EKG w/ rpt trop -cardiology consulted Pulmonary: -per GI note, patient sensitive to volume -assess for fluid status between units of PRBC and will diurese if indicated GI: -patient w/ melena, anemia and lethargy -Gi consult for GIB -Per GI note, patient has refused EGD in the past -Protonix GTT, Octreotide GTT -2units PRBC orded in ED -transfuse to goal Hb 7 -hematology consulted. -pt c/o abdominal pain, but denies tenderness on palpation; ED orded CTAP w/ o contrast r/o ischemic colitis : -will obtain UA r/o UTI as pt w/ leukocytosis FEN -no fluids indicated. patient sensitive to volume. -lytes WNL, monitor -NPO Prophy -SCDs -Protonix GTT -holding AC while actively bleeding. Dispo: -We will continue to follow the patient. Thank you for this consultative opportunity. -Primary team has called jail and emergency contacts to confirm code status -Full code until confirmation of DNR/DNI obtained. Visit type - Emergency Visit Emergency Visit: Yes ED Registration Date: 06/23/18 Care time: The patient presented to the Emergency Department on the above date and was hospitalized for further evaluation of their emergent condition. - New Patient This patient is new to me today: Yes Date on this admission: 06/23/18 - Critical Care Critical Care patient: Yes Total Critical Care Time (in minutes): 40 Critical Care Statement: The care of this patient involved high complexity decision making to prevent further life threatening deterioration of the patient 's condition and/or to evaluate & treat vital organ system(s) failure or risk of failure.
[2018-06-23] MEDS ORDERED: PANTOPRAZOLE SODIUM 40 MG VIAL ONE ×2 (18:28→18:53)
[2018-06-23] MEDS ORDERED: OCTREOTIDE ACETATE 100 MCG/1 ML ONE (18:30)
[2018-06-23] MEDS ORDERED: OCTREOTIDE ACETATE 500 MCG/1 ML - 1 ML VIAL ONE ×2 (18:30→18:55)
--- NOTE | 2018-06-23 18:44 | CON.GI ---
Consult Consult Specialty:: GI Referred by:: Dr. Guerrero Reason for Consultation:: Anemia / melena - History of Present Illness Chief Complaint: Patient non-verbal History of Present Illness: 77F admitted from [place] for evaluation of anemia and melena. Hgb on admission 3.8. Tarry stool noted in ED. Denied ever having had EGD/Colonoscopy on prior admissions. No family history of colorectal cancer. Evaluated 06/10 for similar situation. Refused procedure, did not want me to speak with her family regarding her decision or clinicaly condition. Advised primary team to clarify goals of care and clarify completency. Evaluated in 12/09 for anemia as well. at that time she declined procedures and did not want me to discuss things with her family members. Treated conservatively both times with PPI drips followed by PO PPI. Currently in ED receiving 1st PRBC transfusion. Not on PPI on home med list. On once daily H2 yue. 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: Yes: Dementia, Parkinson's Cardio/Vascular: Yes: HTN, Hyperlipdemia Renal/: Yes: Renal Inusuff Psych: Yes: Depression Rheumatology: Yes: Other (arthritis) Endocrine: Yes: Hypothyroidism - Past Surgical History Past Surgical History: Yes: Appendectomy, Tonsillectomy - Alcohol/Substance Use Hx Alcohol Use: No History of Substance Use: reports: None - Smoking History Smoking history: Former smoker Have you smoked in the past 12 months: No Aproximately how many cigarettes per day: 5 If you are a former smoker, when did you quit?: 5 years ago - Social History Usual Living Arrangement: Retirement ADL: Support Services [facility] of : [facility] History of Recent Travel: No Home Medications - Allergies Allergies/Adverse Reactions: Allergies Allergy/AdvReac Type Severity Reaction Status Date / Time No Known Allergies Allergy Verified 05/27/18 17:34 - Home Medications Home Medications: Ambulatory Orders Amlodipine Besylate [Norvasc -] 10 mg PO DAILY 05/27/18 Escitalopram Oxalate [Lexapro -] 20 mg PO DAILY 05/27/18 Famotidine [Pepcid] 20 mg PO 05/27/18 Ferrous Sulfate 325 mg PO 05/27/18 Hydralazine HCl 50 mg PO TID 05/27/18 Latanoprost 0.005% Eye Drops [Xalatan 0.005% Eye Drops -] 1 drop OP HS 05/27/18 Levothyroxine [Synthroid -] 100 mcg PO DAILY 05/27/18 Polyethylene Glycol 3350 [Miralax 119 gm Btl -] 17 gm PO DAILY 05/27/18 Prednisone 5 mg PO 05/27/18 Sodium Bicarbonate - 650 mg PO DAILY 05/27/18 Tamsulosin HCl [Flomax] 0.4 mg PO 05/27/18 Albuterol 0.083% Nebulizer Latoya [Ventolin 0.083% Nebulizer Soln -] 1 amp NEB Q6H PRN amp 06/04/18 Ferrous Sulfate [Feosol] 325 mg PO BID ud 06/04/18 Pantoprazole Sodium [Protonix -] 40 mg PO BID tablet.ec 06/04/18 Sodium Bicarbonate - 1,300 mg PO BID tablet 06/04/18 Family Disease History - Family Disease History Family Disease History: Other: Father ( 70's: pancreatic Ca), Mother (: 70's: [place]), Brother (None), Sister (None), Daughter (3 daughters, 2 , ? causes) Review of Systems Unable to obtain ROS, reason: Patient non-verbal Physical Exam-GI Vital Signs: Vital Signs Temperature 06/23/18 1830 Pulse Rate 76 06/23/18 1830 Respiratory Rate 16 06/23/18 1830 Blood Pressure 126/71 L 06/23/18 1830 O2 Sat by Pulse Oximetry (%) 100 NC 02 06/23/18 1830 Constitutional: Yes: Calm Eyes: No: Sclera Icterus Cardiovascular: Yes: Regular Rate and Rhythm, Murmur Respiratory: Yes: Diminished (poor inspiratory effort) Gastrointestinal Inspection: Yes: Scars (RLQ scar). No: Distention ...Auscultate: Yes: Normoactive Bowel Sounds ...Palpate: Yes: Soft. No: Tenderness (No grimacing upon palpation) ...Percussion: No: Tympanitic ...Rectal Exam: Yes: Other (Melena) Edema: No (No LE Edema) Neurological: Yes: Lethargy Labs: CBC, BMP 06/23/18 13:23 06/23/18 13:23 INR, PTT INR 1.01 (0.83-1.09) 06/23/18 13:23 Problem List - Problems (1) GIB (gastrointestinal bleeding) Assessment/Plan: Severe anemia in setting of elevated BUN and melena. Suspected upper GI source. Her anemia and occult bleeding has been an issue over the last couple of admissions and she declined interventions. The question will be what are the goals of care. The number in her chart for her daughter is not in service. Advise: Supportive measure. Needs resuscitation: PRBC transfsuion with caution for volume overload (occurred last admission s/p 2 U PRBC) Proper IV access 80mg protonix bus followed by 8mg/hr drip Octreotide only if worsening hemodynamics. Blood work not suggestive of significant portal hypertension ICU care Clarification of goals of care Monitor H/H NPO Code(s): K92.2 - GASTROINTESTINAL HEMORRHAGE, UNSPECIFIED Qualifiers: GI bleed type/associated pathology: melena Qualified Code(s): K92.1 - Melena
[2018-06-23] MEDS ORDERED: FUROSEMIDE 40 MG/4 ML INJECTABLE VIAL ONE (18:52)
[2018-06-23] MEDS: PANTOPRAZOLE SODIUM 80 MG in SODIUM CHLORIDE 100 ML IVPB SCH (18:58)
[2018-06-23] MEDS ORDERED: PANTOPRAZOLE SODIUM 40 MG VIAL IVPUSH SCH (22:00)
[2018-06-24] MEDS: MUPIROCIN 2% TOPICAL OINTMENT FOR DECOLONIZATION NS SCH ×3 (01:01→21:57)
[2018-06-24] MEDS: CHLORHEXIDINE GLUCONATE 4% CLEANSER FOR DECOLONIZATION TP SCH ×2 (01:02→21:57)
[2018-06-24] MEDS: PANTOPRAZOLE SODIUM 80 MG in SODIUM CHLORIDE 100 ML IVPB SCH ×3 (06:40→21:56)
[2018-06-24] MEDS: LEVOTHYROXINE SODIUM 100 MCG VIAL IVPUSH SCH (06:47)
[2018-06-24 07:22] LABS: HEMATOCRIT 23.8 % (32.4-45.2); HEMOGLOBIN 8.2 GM/dL (10.7-15.3); MCH 29.8 pg (25.7-33.7); MCHC 34.5 g/dl (32.0-36.0); MEAN CELL VOLUME 86.4 fl (80-96); MEAN PLT VOLUME 7.2 fl (7.5-11.1); PLATELET COUNT 430 K/MM3 (134-434); RBC 2.75 M/mm3 (3.60-5.2); RDW 15.3 % (11.6-15.6); WHITE BLOOD COUNT 14.3 K/mm3 (4.0-10.0)
[2018-06-24 07:38] LABS: ALBUMIN 2.8 g/dl (3.4-5.0); ALK PHOS 64 U/L (45-117); ANION GAP 12 MMOL/L (8-16); BILIRUBIN,TOTAL 0.6 mg/dL (0.2-1); CALCIUM 8.1 mg/dL (8.5-10.1); CHLORIDE 106 mmol/L (98-107); CHOLESTEROL 120 mg/dL (50-200); CO2 20 mmol/L (21-32); CREATININE 2.9 mg/dL (0.55-1.3); GLUCOSE,RANDOM 115 mg/dL (74-106); HDL CHOLESTEROL 41 mg/dL (40-60); MAGNESIUM 2.6 mg/dL (1.8-2.4); N-TERMINAL BNP 30595.8 pg/ml (5-450); PHOSPHOROUS 6.3 mg/dL (2.5-4.9); POTASSIUM 4.6 mmol/L (3.5-5.1); SGOT/AST 182 U/L (15-37); SGPT/ALT 116 U/L (13-61); SODIUM 138 mmol/L (136-145); TOT PROT 5.9 g/dl (6.4-8.2); TRIGLYCERIDES 123 mg/dL (0-150)
[2018-06-24 07:54] LABS: BLOOD UREA NITROGEN 129 mg/dL (7-18)
--- NOTE | 2018-06-24 09:54 | PN.GI ---
GI Progress Note Subjective: Patient more awake Had 3 units PRBC No abdominal pain - Objective Vital Signs: Vital Signs Temperature 98.6 F 06/24/18 09:12 Pulse Rate 68 06/24/18 09:12 Respiratory Rate 15 06/24/18 07:32 Blood Pressure 134/51 L 06/24/18 07:32 O2 Sat by Pulse Oximetry (%) 100 06/24/18 00:38 Constitutional: Calm Eyes: No: Sclera Icterus Cardiovascular: Yes: Regular Rate and Rhythm Respiratory: Yes: Rhonchi (bases bilaterally) Gastrointestinal Inspection: No: Distention ...Auscultate: Yes: Normoactive Bowel Sounds ...Palpate: Yes: Soft. No: Tenderness Edema: No (No LE edema) Neurological: Yes: Alert, Confusion Labs: CBC, BMP 06/24/18 05:30 06/24/18 05:30 INR, PTT INR 1.01 (0.83-1.09) 06/23/18 13:23 Problem List - Problems (1) GIB (gastrointestinal bleeding) Assessment/Plan: No overt bleeding reported and hemodyanmically stable. When medically optimized , I discussed possibility of EGD with Ms. Colon. Suspect upper GI source in setting of chronic prednisone use. Discussed upper endoscopy and colonoscopy with Ms. Colon to exclude potential sources of GI bleeding such as bleeding blood vessels, PUD, polyps or cancers of the intestinal tract. Explained that repeated bleeding can be life threatening. She has again declined procedures at this time. when I asked if she wanted me to discuss things with any of her family members, she said no and that she just wants to go home and wants something to drink. For now: NPO except meds PPI drip for total 72 hours D/C Octreotide Monitor H/H and for active bleeding Please clarify goals of care / patient capacity for decision making and what ultimate plan for care will be. Discussed concerns with Dr. Guerrero last night Code(s): K92.2 - GASTROINTESTINAL HEMORRHAGE, UNSPECIFIED Qualifiers: GI bleed type/associated pathology: melena Qualified Code(s): K92.1 - Melena
[2018-06-24 10:07] LABS: PH,URINE 5.5 (5.0-8.0); URINE APPEARANCE CLOUDY; URINE BACTERIA >9000 /hpf (NEGATIVE); URINE BILIRUBIN NEGATIVE (NEGATIVE); URINE CASTS 7 /lpf (0-8); URINE COLOR YELLOW; URINE GLUCOSE (UA) NEGATIVE (NEGATIVE); URINE KETONE NEGATIVE (NEGATIVE); URINE LEUK ESTERASE 1+ (NEGATIVE); URINE NITRITE NEGATIVE (NEGATIVE); URINE PROTEIN 2+ (NEGATIVE); URINE RBC 1 /hpf (0-4); URINE UROBILINOGEN 0.2 mg/dL (0.2-1.0); URINE WBC 42 /hpf (0-5)
--- NOTE | 2018-06-24 10:33 | EKG ---
Test Reason : Blood Pressure : / mmHG Vent. Rate : 072 BPM Atrial Rate : 072 BPM P-R Int : 182 ms QRS Dur : 114 ms QT Int : 406 ms P-R-T Axes : 061 033 232 degrees QTc Int : 444 ms NORMAL SINUS RHYTHM LEFT VENTRICULAR HYPERTROPHY WITH REPOLARIZATION ABNORMALITY ABNORMAL ECG WHEN COMPARED WITH ECG OF 23-JUN-2018 13:06, ST NOW DEPRESSED IN ANTERIOR LEADS T WAVE INVERSION NOW EVIDENT IN INFERIOR LEADS T WAVE INVERSION NOW EVIDENT IN ANTERIOR LEADS Confirmed by YAMILE SAUCEDO MD ([id number]) on 06/24/2018 10:33:43 AM Referred By: ECHO TOPETE Confirmed By:YAMILE SAUCEDO MD
--- NOTE | 2018-06-24 10:53 | PN ---
Progress Note, Physician Chief Complaint: patient more awake today alert talking facial pallor has resolved got 3 units prbc with iv lasix - Current Medication List Current Medications: Active Medications Chlorhexidine Gluconate (Hibiclens For Decolonization -) 1 applic TP HS [facility] Last Admin: 06/24/18 01:02 Dose: Not Given Pantoprazole Sodium 80 mg/ (Sodium Chloride) 100 mls @ 10 mls/hr IVPB Q10H [facility] Last Admin: 06/24/18 06:40 Dose: 10 mls/hr Levothyroxine Sodium (Synthroid Injection -) 75 mcg IVPUSH DAILY@0700 [facility] Last Admin: 06/24/18 06:47 Dose: 75 mcg Mupirocin (Bactroban Ointment (For Decolonization) -) 1 applic NS BID [facility] Stop: 06/28/18 21:59 Last Admin: 06/24/18 01:01 Dose: Not Given Pantoprazole Sodium (Protonix Iv) 80 mg IVPUSH ONCE ONE Stop: 06/24/18 18:47 - Objective Vital Signs: Vital Signs Temperature 98.6 F 06/24/18 09:12 Pulse Rate 68 06/24/18 09:12 Respiratory Rate 15 06/24/18 07:32 Blood Pressure 134/51 L 06/24/18 07:32 O2 Sat by Pulse Oximetry (%) 100 06/24/18 00:38 Constitutional: Yes: Calm Cardiovascular: Yes: Regular Rate and Rhythm, S1, S2 Respiratory: Yes: Diminished Gastrointestinal: Yes: Normal Bowel Sounds, Soft Edema: No Neurological: Yes: Alert, Oriented (to name) Labs: CBC, BMP 06/24/18 05:30 06/24/18 05:30 INR, PTT INR 1.01 (0.83-1.09) 06/23/18 13:23 Problem List - Problems (1) Lactic acid acidosis Assessment/Plan: resolved now BP has improved and after 3 units PRBC h/h better Code(s): E87.2 - ACIDOSIS (2) LFT elevation Assessment/Plan: in setting of hypovolemia abdominal CT scan noted will trend it Code(s): R94.5 - ABNORMAL RESULTS OF LIVER FUNCTION STUDIES (3) Elevated troponin Assessment/Plan: troponin increased from 1.34 to 6.64 range echo ordered to look at ejection fraction-wall motion cardiology consult- EKG changes for ST depression and T wave inversion from yesterday Code(s): R74.8 - ABNORMAL LEVELS OF OTHER SERUM ENZYMES (4) GIB (gastrointestinal bleeding) Assessment/Plan: NPO except meds ivv PPI stop octreotide appreciate GI note palliative team for advance directive psych consult for capacity to make decision h/h improved will monitor lactic acidosis resolved Code(s): K92.2 - GASTROINTESTINAL HEMORRHAGE, UNSPECIFIED Qualifiers: GI bleed type/associated pathology: melena Qualified Code(s): K92.1 - Melena (5) CKD (chronic kidney disease) Assessment/Plan: worsening renal falure in setting of gib renal consult noted monitor lytes and renal fucniton Code(s): N18.9 - CHRONIC KIDNEY DISEASE, UNSPECIFIED (6) HTN (hypertension) Assessment/Plan: BP improved today cardiology consult Code(s): I10 - ESSENTIAL (PRIMARY) HYPERTENSION Qualifiers: Hypertension type: unspecified Qualified Code(s): I10 - Essential (primary ) hypertension (7) Hypothyroid Assessment/Plan: iv synthroid will change to po synthroid in AM-100mcg po daily check tsh Code(s): E03.9 - HYPOTHYROIDISM, UNSPECIFIED
--- NOTE | 2018-06-24 10:55 | EKG ---
Test Reason : Blood Pressure : / mmHG Vent. Rate : 078 BPM Atrial Rate : 078 BPM P-R Int : 186 ms QRS Dur : 118 ms QT Int : 424 ms P-R-T Axes : 041 009 171 degrees QTc Int : 483 ms POOR DATA QUALITY, INTERPRETATION MAY BE ADVERSELY AFFECTED NORMAL SINUS RHYTHM WITH SINUS ARRHYTHMIA LEFT VENTRICULAR HYPERTROPHY WITH QRS WIDENING AND REPOLARIZATION ABNORMALITY NONSPECIFIC ST ABNORMALITY ABNORMAL ECG Confirmed by YAMILE SAUCEDO MD ([id number]) on 06/24/2018 10:55:09 AM Referred By: Confirmed By:YAMILE SAUCEDO MD
[2018-06-24] MEDS ORDERED: PNEUMOC 13-VAL CONJ-DIP CRM/PF 0.5 ML DISP.SYRIN IM ONE (12:00)
--- NOTE | 2018-06-24 12:13 | PN ---
Teaching Attending Note Name of Resident: Gary Mcgill ATTENDING PHYSICIAN STATEMENT I saw and evaluated the patient. I reviewed the resident's note and discussed the case with the resident. I agree with the resident's findings and plan as documented. SUBJECTIVE: Pt seen and examined in the ICU. Transfused 3 units PRBC. Refusing endoscopic procedures. No chest pain or shortness of breath. OBJECTIVE: Vital Signs Period Temp Pulse Resp BP Sys/Rolon Pulse Ox Last 24 Hr 97.3 F-98.6 F 62-85 11-21 94-145/47-77 98-100 Intake & Output 06/21/18 06/22/18 06/23/18 06/24/18 23:59 23:59 23:59 23:59 Weight 56.699 kg Gen: NAD at rest Heart: RRR Lung: decreased breath sounds at the bases Abd: soft, nontender Ext: no edema CBC, BMP 06/24/18 05:30 06/24/18 05:30 Active Medications Chlorhexidine Gluconate (Hibiclens For Decolonization -) 1 applic TP HS [facility] Last Admin: 06/24/18 01:02 Dose: Not Given Pantoprazole Sodium 80 mg/ (Sodium Chloride) 100 mls @ 10 mls/hr IVPB Q10H [facility] Last Admin: 06/24/18 06:40 Dose: 10 mls/hr Levothyroxine Sodium (Synthroid Injection -) 75 mcg IVPUSH DAILY@0700 [facility] Last Admin: 06/24/18 06:47 Dose: 75 mcg Mupirocin (Bactroban Ointment (For Decolonization) -) 1 applic NS BID [facility] Stop: 06/28/18 21:59 Last Admin: 06/24/18 11:00 Dose: Not Given Pantoprazole Sodium (Protonix Iv) 80 mg IVPUSH ONCE ONE Stop: 06/24/18 18:47 ASSESSMENT AND PLAN: GI Bleed Acute Blood Loss Anemia +Troponins CKD HTN Hyperlipidemia Parkinsons Dementia - monitor H/H - transfuse as needed - protonix - trend cardiac enzymes - O2 as needed - cardiology eval - palliative care eval - can monitor on telemetry if H/H, cardiac enzymes stable - DVT prophylaxis
[2018-06-24] MEDS ORDERED: CEFTRIAXONE 1 GM in DEXTROSE 5%-WATER - 50 ML IVPB ONE (12:16)
[2018-06-24] MEDS ORDERED: cefTRIAXone SODIUM 1 GM VIAL ONE (12:30)
[2018-06-24] MEDS ORDERED: DEXTROSE 5%-WATER - 50 ML IVPB ONE (12:30)
--- NOTE | 2018-06-24 12:48 | CONSULT ---
Consultation: REQUESTING PROVIDER: CONSULT REQUEST: We have been asked to medically evaluate this patient for heme/ onc HISTORY OF PRESENT ILLNESS: 77 y/o F w/PMH of Parkinson's, Dementia, HTN, HLD, CKD, COPD, Depression, GERD, Hypothyroid, Anemia, Gout, MDD, GI bleed presented [place] the ER from [place] for abd pain, nausea, vomiting. Pt reports only feeling tired currently but has not other complaints. She keeps repeating that she would like to go home ([place] ) but is AAOx2 (person and time). She denies CP, SOB, N/V/F/C, abd pain, blood in stool, dark stool, dysuria. Found to have a Hgb of 3.8 on arrival. On previous admission 05/27/18 had Hgb of 4.7 and did not want any GI interventions at the time. Currently also does not want any further management and wants to go home. Denies any recent NSAID or ASA use. PMH: Parkinson's, Dementia, HTN, HLD, CKD, COPD, Depression, GERD, Hypothyroid, Anemia, Gout, MDD, GI bleed PSHx: Denies SH: Smoked 1ppd from teenage years until 6-7 years ago. Denies alcohol and drug use. FH: No cancer or heme d/o noted as per pt Alleriges: NKDA REVIEW OF SYSTEMS: CONSTITUTIONAL: +fatigue Absent: fever, chills CARDIOVASCULAR: Absent: chest pain RESPIRATORY: Absent: cough, shortness of breath GASTROINTESTINAL: Absent: abdominal pain, nausea, vomiting, melena, hematochezia GENITOURINARY: Absent: dysuria, hematuria NEUROLOGIC: Absent: headache PHYSICAL EXAMINATION Vital Signs - 24 hr 06/23/18 06/23/18 06/23/18 12:50 13:19 13:59 Temperature 98.0 F 98.2 F Pulse Rate 74 Pulse Rate [ 70 Apical] Respiratory 21 H 15 Rate Blood Pressure 94/77 Blood Pressure 113/53 L [Right Arm] O2 Sat by Pulse 98 100 100 Oximetry (%) 06/23/18 06/23/18 06/23/18 16:14 18:45 18:49 Temperature 98.1 F 97.3 F L 98.1 F Pulse Rate Pulse Rate [ 74 85 80 Apical] Respiratory 13 11 11 Rate Blood Pressure Blood Pressure 96/55 L 119/61 119/61 [Right Arm] O2 Sat by Pulse 100 100 100 Oximetry (%) 06/23/18 06/23/18 06/24/18 23:36 23:45 00:00 Temperature 97.6 F Pulse Rate 62 62 Pulse Rate [ Apical] Respiratory 18 18 18 Rate Blood Pressure 132/47 L 132/49 L Blood Pressure [Right Arm] O2 Sat by Pulse 100 Oximetry (%) 06/24/18 06/24/18 06/24/18 00:38 02:00 04:00 Temperature 98.1 F Pulse Rate 69 72 Pulse Rate [ Apical] Respiratory 18 17 17 Rate Blood Pressure 129/58 L 139/53 L Blood Pressure [Right Arm] O2 Sat by Pulse 100 Oximetry (%) 06/24/18 06/24/18 06/24/18 06:00 07:32 08:00 Temperature 98.5 F Pulse Rate 70 67 74 Pulse Rate [ Apical] Respiratory 18 15 16 Rate Blood Pressure 145/56 L 134/51 L 138/70 Blood Pressure [Right Arm] O2 Sat by Pulse Oximetry (%) 06/24/18 06/24/18 10:00 11:00 Temperature 98.6 F Pulse Rate 68 72 Pulse Rate [ Apical] Respiratory 16 Rate Blood Pressure 138/55 L 132/47 L Blood Pressure [Right Arm] O2 Sat by Pulse Oximetry (%) GENERAL: Awake, alert, and oriented x2 (person and time). In no acute distress. EYES: extraocular movements intact, sclera anicteric, conjunctiva clear. EARS, NOSE, THROAT: Ears normal, nares patent LUNGS: Poor inspiratory effort. HEART: Regular rate and rhythm, normal S1 and S2 without murmur, rub or gallop. ABDOMEN: Soft, nontender, not distended, normoactive bowel sounds LOWER EXTREMITIES: No peripheral edema. NEUROLOGICAL: Normal speech. Gait not observed. PSYCHIATRIC: Cooperative. Good eye contact. Appropriate mood and affect. SKIN: Warm, dry Laboratory Results - last 24 hr 06/23/18 06/23/18 06/23/18 13:20 13:20 13:23 WBC 10.9 H RBC 1.32 L Hgb 3.8 L* Hct 11.7 L MCV 89.0 MCH 29.0 MCHC 32.6 RDW 16.2 H Plt Count 527 H D MPV 7.7 Absolute Neuts (auto) 9.6 H Neutrophils % 87.8 H Lymphocytes % 8.1 D Monocytes % 3.7 L Eosinophils % 0.0 D Basophils % 0.4 Nucleated RBC % 0 PT with INR INR PTT (Actin FS) Sodium Potassium Chloride Carbon Dioxide Anion Gap BUN Creatinine Creat Clearance w eGFR Random Glucose Lactic Acid 4.7 H* Calcium Phosphorus Magnesium Total Bilirubin AST ALT Alkaline Phosphatase Creatine Kinase Creatine Kinase Index CK-MB (CK-2) Troponin I B-Natriuretic Peptide Total Protein Albumin Triglycerides Cholesterol Total LDL Cholesterol HDL Cholesterol Lipase TSH Urine Color Urine Appearance Urine pH Ur Specific [place] Urine Protein Urine Glucose (UA) Urine Ketones Urine Blood Urine Nitrite Urine Bilirubin Urine Urobilinogen Ur Leukocyte Esterase Urine WBC (Auto) Urine RBC (Auto) Urine Casts (Auto) U Epithel Cells (Auto) Urine Bacteria (Auto) Stool Occult Blood Blood Type O NEGATIVE Antibody Screen Negative Crossmatch See Detail 06/23/18 06/23/18 06/23/18 13:23 13:23 13:23 WBC RBC Hgb Hct MCV MCH MCHC RDW Plt Count MPV Absolute Neuts (auto) Neutrophils % Lymphocytes % Monocytes % Eosinophils % Basophils % Nucleated RBC % PT with INR 11.90 INR 1.01 PTT (Actin FS) 28.7 Sodium 133 L Potassium 4.9 Chloride 101 Carbon Dioxide 16 L Anion Gap 16 BUN 134 H* Creatinine 2.9 H Creat Clearance w eGFR 15.82 Random Glucose 139 H Lactic Acid Calcium 8.8 Phosphorus Magnesium Total Bilirubin 0.2 AST 109 H ALT 60 Alkaline Phosphatase 66 Creatine Kinase Creatine Kinase Index CK-MB (CK-2) Troponin I 1.34 H* B-Natriuretic Peptide Total Protein 6.2 L Albumin 2.9 L Triglycerides Cholesterol Total LDL Cholesterol HDL Cholesterol Lipase 132 TSH Urine Color Urine Appearance Urine pH Ur Specific [place] Urine Protein Urine Glucose (UA) Urine Ketones Urine Blood Urine Nitrite Urine Bilirubin Urine Urobilinogen Ur Leukocyte Esterase Urine WBC (Auto) Urine RBC (Auto) Urine Casts (Auto) U Epithel Cells (Auto) Urine Bacteria (Auto) Stool Occult Blood Blood Type Antibody Screen Crossmatch 06/23/18 06/23/18 06/24/18 16:10 19:27 05:30 WBC RBC Hgb Hct MCV MCH MCHC RDW Plt Count MPV Absolute Neuts (auto) Neutrophils % Lymphocytes % Monocytes % Eosinophils % Basophils % Nucleated RBC % PT with INR INR PTT (Actin FS) Sodium Potassium Chloride Carbon Dioxide Anion Gap BUN Creatinine Creat Clearance w eGFR Random Glucose Lactic Acid 1.0 0.9 Calcium Phosphorus Magnesium Total Bilirubin AST ALT Alkaline Phosphatase Creatine Kinase Creatine Kinase Index CK-MB (CK-2) Troponin I B-Natriuretic Peptide Total Protein Albumin Triglycerides Cholesterol Total LDL Cholesterol HDL Cholesterol Lipase TSH Urine Color Urine Appearance Urine pH Ur Specific [place] Urine Protein Urine Glucose (UA) Urine Ketones Urine Blood Urine Nitrite Urine Bilirubin Urine Urobilinogen Ur Leukocyte Esterase Urine WBC (Auto) Urine RBC (Auto) Urine Casts (Auto) U Epithel Cells (Auto) Urine Bacteria (Auto) Stool Occult Blood Positive Blood Type Antibody Screen Crossmatch 06/24/18 06/24/18 06/24/18 05:30 05:30 09:02 WBC 14.3 H RBC 2.75 L Hgb 8.2 L Hct 23.8 L D MCV 86.4 MCH 29.8 MCHC 34.5 RDW 15.3 Plt Count 430 MPV 7.2 L Absolute Neuts (auto) Neutrophils % Lymphocytes % Monocytes % Eosinophils % Basophils % Nucleated RBC % PT with INR INR PTT (Actin FS) Sodium 138 Potassium 4.6 Chloride 106 Carbon Dioxide 20 L Anion Gap 12 BUN 129 H* Creatinine 2.9 H Creat Clearance w eGFR 15.82 Random Glucose 115 H Lactic Acid Calcium 8.1 L Phosphorus 6.3 H Magnesium 2.6 H Total Bilirubin 0.6 AST 182 H ALT 116 H Alkaline Phosphatase 64 Creatine Kinase 425 H Creatine Kinase Index 9.1 H* CK-MB (CK-2) 38.8 H Troponin I 6.61 H* B-Natriuretic Peptide 89429.8 H Total Protein 5.9 L Albumin 2.8 L Triglycerides 123 Cholesterol 120 Total LDL Cholesterol 62 HDL Cholesterol 41 Lipase TSH 2.25 Urine Color Yellow Urine Appearance Cloudy Urine pH 5.5 Ur Specific [place] 1.011 Urine Protein 2+ H Urine Glucose (UA) Negative Urine Ketones Negative Urine Blood Negative Urine Nitrite Negative Urine Bilirubin Negative Urine Urobilinogen 0.2 Ur Leukocyte Esterase 1+ H Urine WBC (Auto) 42 Urine RBC (Auto) 1 Urine Casts (Auto) 7 U Epithel Cells (Auto) 1.0 Urine Bacteria (Auto) >9000 Stool Occult Blood Blood Type Antibody Screen Crossmatch Active Medications Generic Name Dose Route Start Last Admin Trade Name Freq PRN Reason Stop Dose Admin Chlorhexidine Gluconate 1 applic 05/02/19 22:00 06/24/18 01:02 Hibiclens For Decolonization - TP Not Given HS [facility] Pantoprazole Sodium 80 mg/ 100 mls @ 10 mls/hr 06/23/18 16:45 06/24/18 12:43 Sodium Chloride IVPB 10 mls/hr Q10H [facility] Administration 8 MG/HR Levothyroxine Sodium 75 mcg 06/24/18 07:00 06/24/18 06:47 Synthroid Injection - IVPUSH 75 mcg DAILY@0700 [facility] Administration Mupirocin 1 applic 06/23/18 22:00 06/24/18 11:00 Bactroban Ointment (For Decolonization) - NS 06/28/18 21:59 Not Given BID [facility] Pantoprazole Sodium 80 mg 06/24/18 18:46 Protonix Iv IVPUSH 06/24/18 18:47 ONCE ONE ASSESSMENT/PLAN: 77 y/o F w/PMH of Parkinson's, Dementia, HTN, HLD, CKD, COPD, Depression, GERD, Hypothyroid, Anemia, Gout, MDD, GI bleed presented to the ER from [place] for abd pain, nausea, vomiting. Found to have Hgb 3.8. -Symptomatic Anemia -CKD -Hypothyroidism s/p 3 units PRBC GI workup c/w PPI Monitor H/H Consider palliative for further management as pt has now had repeated bouts of anemia and is refusing w/u Visit type - Emergency Visit Emergency Visit: Yes ED Registration Date: 06/23/18 Care time: The patient presented to the Emergency Department on the above date and was hospitalized for further evaluation of their emergent condition. - New Patient This patient is new to me today: Yes Date on this admission: 06/24/18 - Critical Care Critical Care patient: Yes Total Critical Care Time (in minutes): 40 Critical Care Statement: The care of this patient involved high complexity decision making to prevent further life threatening deterioration of the patient 's condition and/or to evaluate & treat vital organ system(s) failure or risk of failure.
--- NOTE | 2018-06-24 13:24 | CON.CARD ---
Consult Consult Specialty:: cardiology Referred by:: Rick Reason for Consultation:: Elevated cardiac markers - History of Present Illness Chief Complaint: Rectal bleed History of Present Illness: The patient is a 77-year-old female, [place] [facility] resident, with a history of dementia, Parkinson's disease, hypertension, hyperlipidemia, chronic kidney disease, GI bleed, hypothyroidism, now admitted with recurrent GI bleed and a hemoglobin of 3.8. Cardiac markers are elevated. The patient denies chest pains and shortness of breath. She is in no respiratory distress. Unofficial echo done minutes ago showed a grossly normal left ventricular systolic function. No segmental wall motion abnormalities. - History Source History Provided By: Patient, Medical Record Limitations to Obtaining History: Dementia - Past Medical History [employer]: Yes: Dementia, Parkinson's Cardio/Vascular: Yes: HTN, Hyperlipdemia Renal/: Yes: Renal Inusuff Psych: Yes: Depression Rheumatology: Yes: Other (arthritis) Endocrine: Yes: Hypothyroidism - Past Surgical History Past Surgical History: Yes: Appendectomy, Tonsillectomy - Alcohol/Substance Use Hx Alcohol Use: No History of Substance Use: reports: None - Smoking History Smoking history: Former smoker Have you smoked in the past 12 months: No Aproximately how many cigarettes per day: 5 If you are a former smoker, when did you quit?: 5 years ago - Social History Usual Living Arrangement: [facility] ADL: Support Services History of Recent Travel: No Home Medications - Allergies Allergies/Adverse Reactions: Allergies Allergy/AdvReac Type Severity Reaction Status Date / Time No Known Allergies Allergy Verified 05/27/18 17:34 - Home Medications Home Medications: Ambulatory Orders Amlodipine Besylate [Norvasc -] 10 mg PO DAILY 05/27/18 Escitalopram Oxalate [Lexapro -] 20 mg PO DAILY 05/27/18 Famotidine [Pepcid] 20 mg PO 05/27/18 Ferrous Sulfate 325 mg PO 05/27/18 Hydralazine HCl 50 mg PO TID 05/27/18 Latanoprost 0.005% Eye Drops [Xalatan 0.005% Eye Drops -] 1 drop OP HS 05/27/18 Levothyroxine [Synthroid -] 100 mcg PO DAILY 05/27/18 Polyethylene Glycol 3350 [Miralax 119 gm Btl -] 17 gm PO DAILY 05/27/18 Prednisone 5 mg PO 05/27/18 Sodium Bicarbonate - 650 mg PO DAILY 05/27/18 Tamsulosin HCl [Flomax] 0.4 mg PO 05/27/18 Albuterol 0.083% Nebulizer Latoya [Ventolin 0.083% Nebulizer Soln -] 1 amp NEB Q6H PRN amp 06/04/18 Ferrous Sulfate [Feosol] 325 mg PO BID ud 06/04/18 Pantoprazole Sodium [Protonix -] 40 mg PO BID tablet.ec 06/04/18 Sodium Bicarbonate - 1,300 mg PO BID tablet 06/04/18 Family Disease History - Family Disease History Family Disease History: Other: Father ( 70's: pancreatic Ca), Mother (: 70's: [place]), Brother (None), Sister (None), Daughter (3 daughters, 2 , ? causes) Review of Systems - Review of Systems Constitutional: reports: Lethargy, Malaise Eyes: reports: No Symptoms HENT: reports: No Symptoms Neck: reports: No Symptoms Cardiovascular: reports: No Symptoms Respiratory: reports: No Symptoms Gastrointestinal: reports: No Symptoms Genitourinary: reports: No Symptoms Breasts: reports: No Symptoms Reported Musculoskeletal: reports: No Symptoms Integumentary: reports: No Symptoms Neurological: reports: No Symptoms Endocrine: reports: No Symptoms Hematology/Lymphatic: reports: No Symptoms Psychiatric: reports: No Symptoms Vital Signs: Vital Signs Temperature 98.3 F 06/24/18 13:14 Pulse Rate 72 06/24/18 13:14 Respiratory Rate 16 06/24/18 13:14 Blood Pressure 132/47 L 06/24/18 11:00 O2 Sat by Pulse Oximetry (%) 100 06/24/18 00:38 Constitutional: Yes: No Distress, Calm, Cachectic Eyes: Yes: WNL, Conjunctiva Clear, EOM Intact HENT: Yes: WNL, Atraumatic, Normocephalic Neck: Yes: WNL, Supple, Trachea Midline Respiratory: Yes: WNL, Regular, CTA Bilaterally Gastrointestinal: Yes: WNL, Normal Bowel Sounds, Soft Renal/: Yes: WNL Cardiovascular: Yes: WNL, Regular Rate and Rhythm JVD: No Carotid Bruit: No PMI: Non-Displaced Heart Sounds: Yes: S1, S2 Murmur: Yes: Systolic Murmur, Grade 2 Musculoskeletal: Yes: WNL Extremities: Yes: WNL Edema: No Peripheral Pulses: 1+ Left Carotid, 1+ Right Carotid, 1+ Left Femoral, 1+ Right Femoral, 1+ Left Popliteal, 1+ Right Popliteal, 1+ Left Doralis Pedis, 1+ Right Dorsalis Pedis Integumentary: Yes: WNL Neurological: Yes: WNL, Alert Psychiatric: Yes: WNL, Alert - Other Data Labs, Other Data: CBC, BMP 06/24/18 05:30 06/24/18 05:30 INR, PTT INR 1.01 (0.83-1.09) 06/23/18 13:23 Troponin, BNP 06/23/18 06/24/18 13:23 05:30 Troponin I 1.34 H* 6.61 H* B-Natriuretic Peptide 56672.8 H Troponin, BNP 06/23/18 06/24/18 13:23 05:30 Troponin I 1.34 H* 6.61 H* B-Natriuretic Peptide 44008.8 H Assessment/Plan The patient is a 77-year-old female, [place] [facility] resident, with a history of dementia, Parkinson's disease, hypertension, hyperlipidemia, chronic kidney disease, GI bleed, hypothyroidism, now admitted with recurrent GI bleed and a hemoglobin of 3.8. Cardiac markers are elevated. The patient denies chest pains and shortness of breath. She is in no respiratory distress. Unofficial echo done minutes ago showed a grossly normal left ventricular systolic function. No segmental wall motion abnormalities. The ECG showing sinus rhythm with left ventricular hypertrophy with repolarization abnormalities. No acute changes. Would treat conservatively in this setting. X No need for further cardiac workup at this point. Try to keep hemoglobin around 10.0, as possible. Continue current regimen. Please do not hesitate to call us PRN
[2018-06-24 14:05] LABS: HEMATOCRIT 25.6 % (32.4-45.2); HEMOGLOBIN 8.4 GM/dL (10.7-15.3); MCH 28.8 pg (25.7-33.7); MCHC 32.9 g/dl (32.0-36.0); MEAN CELL VOLUME 87.5 fl (80-96); MEAN PLT VOLUME 7.4 fl (7.5-11.1); PLATELET COUNT 461 K/MM3 (134-434); RBC 2.93 M/mm3 (3.60-5.2); RDW 15.8 % (11.6-15.6); WHITE BLOOD COUNT 16.4 K/mm3 (4.0-10.0)
--- NOTE | 2018-06-24 14:09 | ECHO ---
Name: EVIE GUAMAN Exam:Adult Echocardiogram Study Date: 06/24/2018 12:57 PM Age: 77 yrs Height: 63 in Weight: 125 lb BSA: 1.6 m2 MMode/2D Measurements & Calculations IVSd: 1.0 cm Ao root diam: 2.3 cm LVIDd: 4.2 cm LA dimension: 4.0 cm LVIDs: 2.8 cm LVPWd: 0.97 cm EDV(Teich): 79.1 ml LVOT diam: 1.9 cm ESV(Teich): 30.1 ml LAV (MOD-bp): 76.0 ml Doppler Measurements & Calculations MV E max celestine: 158.9 cm/sec Ao V2 max: 140.6 cm/sec MV A max celestine: 121.1 cm/sec Ao max P.9 mmHg MV E/A: 1.3 Ao V2 mean: 103.6 cm/sec MV dec time: 0.18 sec Ao mean P.8 mmHg Ao V2 VTI: 30.7 cm MARCELA(I,D): 1.5 cm2 MARCELA(V,D): 1.6 cm2 LV V1 max P.4 mmHg MR max celestine: 532.6 cm/sec LV V1 mean P.2 mmHg MR max P.7 mmHg LV V1 max: 77.1 cm/sec LV V1 mean: 50.6 cm/sec LV V1 VTI: 15.7 cm SV(LVOT): 46.6 ml TR max celestine: 302.4 cm/sec TR max P.7 mmHg PI end-d celestine: 148.6 cm/sec Med Peak E' Celestine: 4.2 cm/sec Med E/e': 37.8 Lat Peak E' Celestine: 5.1 cm/sec Lat E/e': 31.3 Left Ventricle There is mild concentric left ventricular hypertrophy. Left ventricular systolic function is normal. Ejection Fraction = 50-55%. There is apical inferior wall severe hypokinesis. Right Ventricle The right ventricle is normal in size and function. Atria The left atrium is moderately dilated. Right atrial size is normal. Mitral Valve There is mild to moderate mitral annular calcification. There is mild to moderate mitral valve thicke simon. There is no mitral valve stenosis. There is severe mitral regurgitation. The mitral regurgitant jet i s eccentrically directed. Tricuspid Valve The tricuspid valve is not well visualized, but is grossly normal. There is moderate tricuspid regurg itation. Right ventricular systolic pressure is elevated at 40-50mmHg. Aortic Valve There is mild aortic sclerosis.;. No hemodynamically significant valvular aortic stenosis. Trace aort ic regurgitation. Pulmonic Valve The pulmonic valve is not well seen, but is grossly normal. There is no pulmonic valvular stenosis. Great Vessels The aortic root is normal size. Pericardium/Pleura There is no pericardial effusion. Interpretation Summary There is apical inferior wall severe hypokinesis. Left ventricular systolic function is normal. Ejection Fraction = 50-55%. There is mild concentric left ventricular hypertrophy. The left atrium is moderately dilated. There is mild to moderate mitral annular calcification. There is mild to moderate mitral valve thickening. There is severe mitral regurgitation. The mitral regurgitant jet is eccentrically directed. There is moderate tricuspid regurgitation. Right ventricular systolic pressure is elevated at 40-50mmHg. There is mild aortic sclerosis.; There is no pericardial effusion. MD Lucia *Jaye 06/24/2018 02:09 PM
--- NOTE | 2018-06-24 15:53 | PN ---
Progress Note (short form) - Note Progress Note: HD# 1 Overnight Events: Pt admitted to the ICU overnight. No significant events reported after arrival in the unit. This morning, the pt denies chief complaint. Denies chest pain, SOB , palpitations, abdominal pain, or syncope. OBJECTIVE: Vital Signs Period Temp Pulse Resp BP Sys/Rolon Pulse Ox Last 24 Hr 97.3 F-98.6 F 62-85 11-18 96-154/47-70 100-100 Intake & Output 06/24/18 06/24/18 06/24/18 06:59 14:59 22:59 Weight 56.699 kg 56.699 kg Other: Voiding Method Diaper Diaper # Unmeasured Voids Void 2 1 Height 1.6 m 1.6 m Body Mass Index (BMI) 22.1 22.1 Weight Measurement Method Built in [facility] Lines: - PIV Drains: - None Supplemental Oxygen: Low flow nasal cannula. Physical Exams: GENERAL: The patient is awake, alert, and oriented to person and place only. Unable to recall events prompting hospitalization and date or month. Iin no acute distress. LUNGS: Breath sounds equal, clear to auscultation bilaterally, no wheezes, no crackles, no accessory muscle use. HEART: Regular rate and rhythm, S1, S2 without murmur, rub or gallop. ABDOMEN: Soft, nontender, nondistended. EXTREMITIES: 2+ pulses, warm, well-perfused, no edema. PSYCH: Normal mood, normal affect. SKIN: Warm and dry. Drips: - Protonix - Octreotide Anti Infectives: - None Active Medications Chlorhexidine Gluconate (Hibiclens For Decolonization -) 1 applic TP HS [facility] Last Admin: 06/24/18 01:02 Dose: Not Given Pantoprazole Sodium 80 mg/ (Sodium Chloride) 100 mls @ 10 mls/hr IVPB Q10H [facility] Last Admin: 06/24/18 12:43 Dose: 10 mls/hr Levothyroxine Sodium (Synthroid Injection -) 75 mcg IVPUSH DAILY@0700 [facility] Last Admin: 06/24/18 06:47 Dose: 75 mcg Mupirocin (Bactroban Ointment (For Decolonization) -) 1 applic NS BID [facility] Stop: 06/28/18 21:59 Last Admin: 06/24/18 11:00 Dose: Not Given Pantoprazole Sodium (Protonix Iv) 80 mg IVPUSH ONCE ONE Stop: 06/24/18 18:47 ASSESSMENT / PLAN: 77 year old female, with a significant past medical history of GI bleed, Parkinson's, Dementia, HTN, HLD, CKD, COPD, Depression, GERD, Hypothyroid, Anemia, Gout, MDD, and hyperkalemia, who presents to the emergency department from the [facility] for weakness and lethargy found to be anemic to 3.4 and hypotensive. Neuro (& Psych): - Consulted Dr. De La Rosa. - A/O x2. Documented h/o of dementia. Unsure of decision making capacity. Awaiting psychiatry recommendations. Endocrine: - Will trend electrolytes. - H/o CKD. Cardiovascular: - Consult Dr. Glez - Hypotensive and anemic on arrival. Suspect secondary to UGIB. - Elevated troponin, which trended upward overnight. Suspect demand ischemia in setting of poor renal clearance secondary to CKD. No ischemic EKG changes noted on EKG this morning. Will continue to trend. - Cardiology suggests hemoglobin goal of 10. Will transfuse fourth unit PRBC ordered overnight. Pulm / Resp: - Monitor volume status. Diuresis as needed given amount of PRBCs received. - Nasal cannula PRN to maintain goal of SPO2 >94% Gastrointestinal: - Consult Dr. Wright. - Anemia, hemoccult positive, h/o of GI bleed. Pt declining endoscopy to evaluate for location of GI bleed. Requested family not be contacted by this facility. - Pantoprazole drip. Octreotide discontinued per GI recommendations. Low suspicion for variceal bleed. Genitourinary: - UA revealed pyuria, leukocyte esterase, and a large amount of bacteria. Pt denies symptoms but has documented dementia. Urine culture grew Klebsiella last month; sensitive for ceftriaxone. Antibiotics per ID team. Hematologic: - See GI section. Infectious Disease: - Consult Dr. Bro - Possible UTI. UA obtained via straight catheterization. Low suspicion for contamination. - Antibiotics per ID team. - Urine culture pending. FEN: - NPO secondary to presumed GI bleed. Prophylaxis: - DVT: SCDs. No pharmacologic given active bleeding. - GI: Pantoprazole. Code Status / Family Conversation: Dispo: Pt to remain in ICU given troponin and hemoglobin trend. Gary Mcgill MD, PGY1 ICU Consult Service Critical Care Total Critical Care Time (in minutes): 40 Critical Care Statement: The care of this patient involved high complexity decision making to prevent further life threatening deterioration of the patient 's condition and/or to evaluate & treat vital organ system(s) failure or risk of failure.
--- NOTE | 2018-06-24 16:09 | PN ---
Progress Note (short form) - Note Progress Note: ID consult dictated imp/reccd 77 yo female [facility] with anemia , h/h hgb 3.9, weakness, lethargy and melenotic stool has refused gi workup in the past alert but confused, knows she is at [facility], won't tell me where she lives- tells me she didnot know she is anemic! this is same as last time I saw her no fevers no abdominal pain no signs UTI got a dose of ceftriaxone today suspect leukocytosis secondary to GI bleed f/u cultures-will order blood cultures management og GI bleed per primary now with +troponins and ekg changes- management per cardiology CKD noted Problem List - Problems (1) Leukocytosis Code(s): D72.829 - ELEVATED WHITE BLOOD CELL COUNT, UNSPECIFIED (2) Asymptomatic bacteriuria Code(s): R82.71 - BACTERIURIA (3) GI bleed Code(s): K92.2 - GASTROINTESTINAL HEMORRHAGE, UNSPECIFIED Qualifiers: GI bleed type/associated pathology: unspecified gastrointestinal hemorrhage type Qualified Code(s): K92.2 - Gastrointestinal hemorrhage, unspecified (4) CKD (chronic kidney disease) Code(s): N18.9 - CHRONIC KIDNEY DISEASE, UNSPECIFIED
--- NOTE | 2018-06-24 16:15 | PN ---
Progress Note, Physician History of Present Illness: Pt seen and examined at bedside. She is more awake and alert today. She denies shortness of breath. - Current Medication List Current Medications: Active Medications Chlorhexidine Gluconate (Hibiclens For Decolonization -) 1 applic TP HS [facility] Last Admin: 06/24/18 01:02 Dose: Not Given Pantoprazole Sodium 80 mg/ (Sodium Chloride) 100 mls @ 10 mls/hr IVPB Q10H [facility] Last Admin: 06/24/18 12:43 Dose: 10 mls/hr Levothyroxine Sodium (Synthroid Injection -) 75 mcg IVPUSH DAILY@0700 [facility] Last Admin: 06/24/18 06:47 Dose: 75 mcg Mupirocin (Bactroban Ointment (For Decolonization) -) 1 applic NS BID [facility] Stop: 06/28/18 21:59 Last Admin: 06/24/18 11:00 Dose: Not Given Pantoprazole Sodium (Protonix Iv) 80 mg IVPUSH ONCE ONE Stop: 06/24/18 18:47 - Objective Vital Signs: Vital Signs Temperature 98.4 F 06/24/18 14:00 Pulse Rate 74 06/24/18 14:00 Respiratory Rate 16 06/24/18 14:00 Blood Pressure 144/50 L 06/24/18 14:00 O2 Sat by Pulse Oximetry (%) 100 06/24/18 00:38 Constitutional: Yes: Calm Eyes: Yes: Conjunctiva Clear HENT: Yes: Atraumatic Cardiovascular: Yes: S1, S2 Respiratory: Yes: CTA Bilaterally Gastrointestinal: Yes: Normal Bowel Sounds, Soft Genitourinary: Yes: WNL Musculoskeletal: Yes: Joint Stiffness Extremities: Yes: WNL Edema: No Neurological: Yes: Oriented Psychiatric: Yes: Oriented Labs: CBC, BMP 06/24/18 13:45 06/24/18 05:30 INR, PTT INR 1.01 (0.83-1.09) 06/23/18 13:23 Problem List - Problems (1) Anemia Code(s): D64.9 - ANEMIA, UNSPECIFIED Qualifiers: Qualified Code(s): D64.9 - Anemia, unspecified (2) CKD (chronic kidney disease) Code(s): N18.9 - CHRONIC KIDNEY DISEASE, UNSPECIFIED Assessment/Plan Current Medications Generic Name Dose Route Start Last Admin Trade Name Freq PRN Reason Stop Dose Admin Chlorhexidine Gluconate 1 applic 06/23/18 22:00 06/24/18 01:02 Hibiclens For Decolonization - TP Not Given HS LINNEA Pantoprazole Sodium 80 mg/ 100 mls @ 10 mls/hr 06/23/18 16:45 06/24/18 12:43 Sodium Chloride IVPB 10 mls/hr Q10H [facility] Administration 8 MG/HR Levothyroxine Sodium 75 mcg 06/24/18 07:00 06/24/18 06:47 Synthroid Injection - IVPUSH 75 mcg DAILY@0700 [facility] Administration Mupirocin 1 applic 06/23/18 22:00 06/24/18 11:00 Bactroban Ointment (For Decolonization) - NS 06/28/18 21:59 Not Given BID LINNEA Pantoprazole Sodium 80 mg 06/24/18 18:46 Protonix Iv IVPUSH 06/24/18 18:47 ONCE ONE Impression 1. CKD 2. right renal cyst 3. toe ulcer 4. hypothryoid 5. dementia 6. parkinsons 7. HTN 8. gout 9. uremia 10. anemia 11. GI bleed 12. LUCERO Plan - hg improved - GI workup - GI bleed can contribute to elevated bun - monitor renal function
--- NOTE | 2018-06-24 17:07 | CONS ---
DATE OF CONSULTATION: DATE OF DICTATION: 06/24/2018 REQUESTING PHYSICIAN: Emmanuel Cabrera MD HISTORY: This is a 77-year-old woman who comes to the emergency room with lethargy, weakness, and melena. She is found to be extremely anemic with a hemoglobin of 3.8. She has had several admissions in the past for anemia all of which she has refused procedures. She has no fevers or chills. She denies any abdominal pain or chest pain. She has now been treated with blood transfusion and is taking a proton pump inhibitor. She is awake and alert. She knows she is at [facility]. She tells me she is from [place] but cannot tell me where she lives. She also tells me this is the first time she has been told she is anemic, which I doubt is true. PAST MEDICAL HISTORY: Notable for dementia, Parkinson disease, hypertension, hyperlipidemia, renal insufficiency, chronic kidney disease, depression, arthritis, hypothyroidism. PAST SURGICAL HISTORY: Appendectomy and tonsillectomy. SOCIAL HISTORY: She lives at the longterm. No history of any recent travel. She has a daughter. ALLERGIES: No known drug allergies. MEDICATIONS: Include amlodipine, Lexapro, Pepcid, furosemide, hydralazine, eye drops, Synthroid, prednisone, sodium bicarbonate, Flomax, ferrous sulfate, Protonix. FAMILY HISTORY: Notable for pancreatic cancer in her mother, coronary artery disease in her mother. REVIEW OF SYSTEMS: She has no complaints. She has no headache, chest pain, abdominal pain. In fact, the only thing is she is hungry and thirsty and requesting food and water. PHYSICAL EXAMINATION: General: She is awake and alert. Vital Signs: Her temperature is 98.4, pulse 74, blood pressure 144/50, respiratory rate 16. HEENT: She is normocephalic. Her eyes are anicteric. Neck: Supple. Lungs: Clear to auscultation. Heart: Regular rate and rhythm. Abdomen: Soft and nontender. Extremities: Notable for no edema. DIAGNOSTIC DATA: Her white count today is 16.4, hemoglobin 8.4, platelet count 461, BUN 129, creatinine 2.9 with a troponin of 6.6. A CPK of 425. Urinalysis has 1+ leukocytes with 42 white cells. Urine culture is pending. She has a urine culture sent, the results of which are not back. No blood cultures were sent. She had a head CT that showed no acute intracranial pathology. She has chronic left frontal cortical infarct. She has a CAT of her abdomen and pelvis notable for cholelithiasis without cholecystitis, probable cardiomegaly, and mild endometrial thickening, rectosigmoid fecal impaction. In summary, this is a 77-year-old woman admitted to the ICU with a GI bleed. I suspect her leukocytosis is secondary to a bleed. Will follow up blood cultures, which we need to order. She has no signs of UTI. I suspect this is asymptomatic bacteriuria. She got a dose of ceftriaxone today for UTI. Management of GI bleed per primary. She now has positive troponins and EKG changes. Management per Cardiology. CKD noted in case future antibiotic dosing is needed. We will elect to watch off antibiotics for now. EDWIGE MONTEZ M.D. [id number]
--- NOTE | 2018-06-24 17:39 | CON.PSY ---
Psychiatry Consult Chief Complaint: Patient seen for Psych eval to determine capacity to make decisions at this time. She apparantly has refused Gastric Procedure to evaluate bleedind. She However has been getting Blood Transfusion. ? history of Dementia and Parkinson's Disease. Symptoms: reports: Oppositionalism - Previous Psychiatric Treatment Outpatient: None Inpatient: None - Previous Substance Abuse Treatment Outpatient: None Inpatient: None - Current Medications Current Medications: Active Medications Chlorhexidine Gluconate (Hibiclens For Decolonization -) 1 applic TP HS [facility] Last Admin: 06/24/18 01:02 Dose: Not Given Pantoprazole Sodium 80 mg/ (Sodium Chloride) 100 mls @ 10 mls/hr IVPB Q10H [facility] Last Admin: 06/24/18 12:43 Dose: 10 mls/hr Levothyroxine Sodium (Synthroid Injection -) 75 mcg IVPUSH DAILY@0700 [facility] Last Admin: 06/24/18 06:47 Dose: 75 mcg Mupirocin (Bactroban Ointment (For Decolonization) -) 1 applic NS BID [facility] Stop: 06/28/18 21:59 Last Admin: 06/24/18 11:00 Dose: Not Given Pantoprazole Sodium (Protonix Iv) 80 mg IVPUSH ONCE ONE Stop: 06/24/18 18:47 - Allergies Allergies: Allergies Allergy/AdvReac Type Severity Reaction Status Date / Time No Known Allergies Allergy Verified 05/27/18 17:34 - Current Living Status Usual Living Arrangement: [facility] - Current Mental Status Evaluation Appearance: Well Groomed Attitude: Cooperative - Affect Affect: Constrictive Appropriateness: Appropriate to Content - Mood Mood: Euthymic - Speech/Language Expressive: Coherent - Psychomotor Activity Psychomotor Activity: Slowed - Thought Process Thought Process: Intact - Thought Content Hallucinations: Absent Delusions: Absent - Self Perception Self Perception: No Impairment - Cognition Attention: Alert Orientation: Time Memory, Immediate Recall: Intact Memory, Short Term: 2/3 Memory, Remote with Promptin/3 - Concentration Serial Sevens Intact: No Simple Calculations Intact: Yes - Abstraction Proverb Interpretation: Intact Judgement: Minimally Impaired - Insight Insight: Intact - Impulse Control Impulse Control: Good Control - Suicidal Ideation Suicidal Ideation: No - Homicidal Ideation Homicidal Ideation: No Assessment/Plan 1) Patient has the functional capacity to make decisions at this time.
--- NOTE | 2018-06-24 17:40 | PN ---
Teaching Attending Note Name of Resident: Juancho Goldman ATTENDING PHYSICIAN STATEMENT I saw and evaluated the patient. I reviewed the resident's note and discussed the case with the resident. I agree with the resident's findings and plan as documented. ASSESSMENT AND PLAN: 77 y/o patient with
[2018-06-24] MEDS ORDERED: PANTOPRAZOLE SODIUM 40 MG VIAL IVPUSH ONE (18:46)
[2018-06-25] MEDS: LEVOTHYROXINE SODIUM 100 MCG VIAL IVPUSH SCH (06:35)
[2018-06-25 06:50] LABS: BASO % 0.3 % (0-2.0); EOS % 0.3 % (0-4.5); HEMATOCRIT 30.7 % (32.4-45.2); HEMOGLOBIN 10.3 GM/dL (10.7-15.3); LYMPH % 6.9 % (8-40); MCHC 33.7 g/dl (32.0-36.0); MEAN CELL VOLUME 85.9 fl (80-96); MEAN PLT VOLUME 7.2 fl (7.5-11.1); MONO % 4.5 % (3.8-10.2); PLATELET COUNT 466 K/MM3 (134-434); RBC 3.57 M/mm3 (3.60-5.2); RDW 15.9 % (11.6-15.6)
[2018-06-25 07:37] LABS: ALK PHOS 69 U/L (45-117); ANION GAP 11 MMOL/L (8-16); BILIRUBIN,TOTAL 0.4 mg/dL (0.2-1); CALCIUM 8.5 mg/dL (8.5-10.1); CHLORIDE 109 mmol/L (98-107); CO2 20 mmol/L (21-32); CREATININE 2.8 mg/dL (0.55-1.3); GLUCOSE,RANDOM 81 mg/dL (74-106); MAGNESIUM 2.3 mg/dL (1.8-2.4); PHOSPHOROUS 5.2 mg/dL (2.5-4.9); POTASSIUM 4.4 mmol/L (3.5-5.1); SGOT/AST 140 U/L (15-37); SGPT/ALT 130 U/L (13-61); SODIUM 141 mmol/L (136-145); TOT PROT 6.2 g/dl (6.4-8.2)
[2018-06-25 07:43] LABS: BLOOD UREA NITROGEN 125 mg/dL (7-18)
--- NOTE | 2018-06-25 09:43 | PN ---
Progress Note (short form) - Note Progress Note: feels well no complaints Vital Signs Period Temp Pulse Resp BP Sys/Rolon Pulse Ox Last 24 Hr 97 F-99 F 68-79 14-19 132-156/47-99 100 cor-rrr lungs clear abd soft,nt ext no edema 06/25/18 05:30 06/25/18 05:30 Microbiology 06/24/18 09:02 Urine - Urine Clean Catch Urine Culture - Preliminary Lactose Fermenting Neg Bacilli a/p asymptomatic bacteriuria no signs UTI no need for further antibiotics suspect leukocytosis secondary to GI bleed-resolving management of GI bleed per primary now with +troponins and ekg changes- management per cardiology CKD noted please call back if needed Problem List - Problems (1) Leukocytosis Code(s): D72.829 - ELEVATED WHITE BLOOD CELL COUNT, UNSPECIFIED (2) Asymptomatic bacteriuria Code(s): R82.71 - BACTERIURIA (3) GI bleed Code(s): K92.2 - GASTROINTESTINAL HEMORRHAGE, UNSPECIFIED Qualifiers: GI bleed type/associated pathology: unspecified gastrointestinal hemorrhage type Qualified Code(s): K92.2 - Gastrointestinal hemorrhage, unspecified (4) CKD (chronic kidney disease) Code(s): N18.9 - CHRONIC KIDNEY DISEASE, UNSPECIFIED
--- NOTE | 2018-06-25 11:53 | PN ---
Progress Note (short form) - Note Progress Note: Seen and examined in the ICU: -Patient awake and alert -seen by psych, deemed competent -denies: Owen/CP/N/V -states she wanted to go home Current Medications Chlorhexidine Gluconate (Hibiclens For Decolonization -) 1 applic TP HS [facility] Last Admin: 06/24/18 21:57 Dose: 1 applic Pantoprazole Sodium 80 mg/ (Sodium Chloride) 100 mls @ 10 mls/hr IVPB Q10H [facility] Last Admin: 06/24/18 21:56 Dose: 10 mls/hr Levothyroxine Sodium (Synthroid Injection -) 75 mcg IVPUSH DAILY@0700 [facility] Last Admin: 06/25/18 06:35 Dose: 75 mcg Mupirocin (Bactroban Ointment (For Decolonization) -) 1 applic NS BID [facility] Stop: 06/28/18 21:59 Last Admin: 06/24/18 21:57 Dose: Not Given Vital Signs Period Temp Pulse Resp BP Sys/Rolon Pulse Ox Last 24 Hr 97 F-99 F 68-79 14-19 141-159/50-99 100-100 Intake & Output 06/22/18 06/23/18 06/24/18 06/25/18 23:59 23:59 23:59 23:59 Intake Total 120 Output Total 100 Balance -100 120 Weight 56.699 kg 56.699 kg General: awake and alert w/o distress, states she want to leave the hospital HEENT: PERRL CV: s1, s2 RRR Pulm: CTA ABD; SNTND Ext: WWP, RA changes noted Neuro: grossly intact CBCD WBC 12.0 K/mm3 (4.0-10.0) H 06/25/18 05:30 RBC 3.57 M/mm3 (3.60-5.2) L 06/25/18 05:30 Hgb 10.3 GM/dL (10.7-15.3) L 06/25/18 05:30 Hct 30.7 % (32.4-45.2) L D 06/25/18 05:30 MCV 85.9 fl (80-96) 06/25/18 05:30 MCHC 33.7 g/dl (32.0-36.0) 06/25/18 05:30 RDW 15.9 % (11.6-15.6) H 06/25/18 05:30 Plt Count 466 K/MM3 (134-434) H 06/25/18 05:30 MPV 7.2 fl (7.5-11.1) L 06/25/18 05:30 CMP Sodium 141 mmol/L (136-145) 06/25/18 05:30 Potassium 4.4 mmol/L (3.5-5.1) 06/25/18 05:30 Chloride 109 mmol/L (98-107) H 06/25/18 05:30 Carbon Dioxide 20 mmol/L (21-32) L 06/25/18 05:30 Anion Gap 11 MMOL/L (8-16) 06/25/18 05:30 BUN 125 mg/dL (7-18) H* 06/25/18 05:30 Creatinine 2.8 mg/dL (0.55-1.3) H 06/25/18 05:30 Creat Clearance w eGFR 16.47 (>60) 06/25/18 05:30 Random Glucose 81 mg/dL (74-106) 06/25/18 05:30 Calcium 8.5 mg/dL (8.5-10.1) 06/25/18 05:30 Total Bilirubin 0.4 mg/dL (0.2-1) 06/25/18 05:30 AST 140 U/L (15-37) H 06/25/18 05:30 ALT 130 U/L (13-61) H 06/25/18 05:30 Alkaline Phosphatase 69 U/L (45-117) 06/25/18 05:30 Total Protein 6.2 g/dl (6.4-8.2) L 06/25/18 05:30 Albumin 3.0 g/dl (3.4-5.0) L 06/25/18 05:30 CARDIAC ENZYMES Creatine Kinase 425 U/L (26-192) H 06/24/18 05:30 Troponin I 6.91 ng/ml (0.00-0.05) H* 06/24/18 13:45 ASSESSMENT AND PLAN: GI Bleed Acute Blood Loss Anemia +Troponins CKD HTN Hyperlipidemia Parkinsons Dementia - trend H/H, stable this AM - transfuse as needed for hgb >7.0 - protonix drip for 72hr then BID - trend cardiac enzymes - renal dose meds - O2 as needed for sat >90 - cardiology following - palliative care eval - stable for tele - DVT prophylaxis Ericka TRACY CCT: 35m
--- NOTE | 2018-06-25 12:36 | PN ---
Progress Note, Physician - Current Medication List Current Medications: Active Medications Chlorhexidine Gluconate (Hibiclens For Decolonization -) 1 applic TP HS [facility] Last Admin: 06/24/18 21:57 Dose: 1 applic Pantoprazole Sodium 80 mg/ (Sodium Chloride) 100 mls @ 10 mls/hr IVPB Q10H [facility] Last Admin: 06/24/18 21:56 Dose: 10 mls/hr Levothyroxine Sodium (Synthroid Injection -) 75 mcg IVPUSH DAILY@0700 [facility] Last Admin: 06/25/18 06:35 Dose: 75 mcg Mupirocin (Bactroban Ointment (For Decolonization) -) 1 applic NS BID [facility] Stop: 06/28/18 21:59 Last Admin: 06/24/18 21:57 Dose: Not Given - Objective Vital Signs: Vital Signs Temperature 98.2 F 06/25/18 08:00 Pulse Rate 75 06/25/18 10:00 Respiratory Rate 18 06/25/18 10:00 Blood Pressure 159/53 L 06/25/18 10:00 O2 Sat by Pulse Oximetry (%) 100 06/25/18 09:00 Cardiovascular: Yes: S1, S2 Respiratory: Yes: Regular, CTA Bilaterally Gastrointestinal: Yes: Normal Bowel Sounds, Soft Labs: CBC, BMP 06/25/18 05:30 06/25/18 05:30 INR, PTT INR 1.01 (0.83-1.09) 06/23/18 13:23 Assessment/Plan - Problems (1) Lactic acid acidosis Assessment/Plan: resolved now BP has improved and after 3 units PRBC h/h better Code(s): E87.2 - ACIDOSIS (2) LFT elevation Assessment/Plan: in setting of hypovolemia abdominal CT scan noted will trend it Code(s): R94.5 - ABNORMAL RESULTS OF LIVER FUNCTION STUDIES (3) Elevated troponin Assessment/Plan: troponin increased from 1.34 to 6.64 range echo ordered to look at ejection fraction-wall motion cardiology consult- EKG changes for ST depression and T wave inversion from yesterday Code(s): R74.8 - ABNORMAL LEVELS OF OTHER SERUM ENZYMES (4) GIB (gastrointestinal bleeding) Assessment/Plan: NPO except meds ivv PPI stop octreotide appreciate GI note palliative team for advance directive psych consult for capacity to make decision h/h improved will monitor lactic acidosis resolved Code(s): K92.2 - GASTROINTESTINAL HEMORRHAGE, UNSPECIFIED Qualifiers: GI bleed type/associated pathology: melena Qualified Code(s): K92.1 - Melena (5) CKD (chronic kidney disease) Assessment/Plan: worsening renal falure in setting of gib renal consult noted monitor lytes and renal fucniton Code(s): N18.9 - CHRONIC KIDNEY DISEASE, UNSPECIFIED (6) HTN (hypertension) Assessment/Plan: BP improved today cardiology consult Code(s): I10 - ESSENTIAL (PRIMARY) HYPERTENSION Qualifiers: Hypertension type: unspecified Qualified Code(s): I10 - Essential (primary ) hypertension (7) Hypothyroid Assessment/Plan: iv synthroid will change to po synthroid in AM-100mcg po daily check tsh Code(s): E03.9 - HYPOTHYROIDISM, UNSPECIFIED
--- NOTE | 2018-06-25 13:43 | PN ---
Progress Note, Physician History of Present Illness: Pt seen and examined at bedside. She is awake and appears comfortable. - Current Medication List Current Medications: Active Medications Chlorhexidine Gluconate (Hibiclens For Decolonization -) 1 applic TP HS [facility] Last Admin: 06/24/18 21:57 Dose: 1 applic Pantoprazole Sodium 80 mg/ (Sodium Chloride) 100 mls @ 10 mls/hr IVPB Q10H [facility] Last Admin: 06/24/18 21:56 Dose: 10 mls/hr Levothyroxine Sodium (Synthroid Injection -) 75 mcg IVPUSH DAILY@0700 [facility] Last Admin: 06/25/18 06:35 Dose: 75 mcg Mupirocin (Bactroban Ointment (For Decolonization) -) 1 applic NS BID [facility] Stop: 06/28/18 21:59 Last Admin: 06/24/18 21:57 Dose: Not Given - Objective Vital Signs: Vital Signs Temperature 98.2 F 06/25/18 08:00 Pulse Rate 75 06/25/18 10:00 Respiratory Rate 18 06/25/18 10:00 Blood Pressure 159/53 L 06/25/18 10:00 O2 Sat by Pulse Oximetry (%) 100 06/25/18 09:00 Constitutional: Yes: Calm Eyes: Yes: Conjunctiva Clear HENT: Yes: Atraumatic Neck: Yes: Supple Cardiovascular: Yes: S1, S2 Respiratory: Yes: CTA Bilaterally Gastrointestinal: Yes: Soft Genitourinary: Yes: WNL Musculoskeletal: Yes: WNL Edema: No Neurological: Yes: Oriented Psychiatric: Yes: Oriented Labs: CBC, BMP 06/25/18 05:30 06/25/18 05:30 INR, PTT INR 1.01 (0.83-1.09) 06/23/18 13:23 Problem List - Problems (1) Anemia Code(s): D64.9 - ANEMIA, UNSPECIFIED Qualifiers: Anemia type: unspecified type Qualified Code(s): D64.9 - Anemia, unspecified (2) CKD (chronic kidney disease) Code(s): N18.9 - CHRONIC KIDNEY DISEASE, UNSPECIFIED Assessment/Plan Current Medications Generic Name Dose Route Start Last Admin Trade Name Freq PRN Reason Stop Dose Admin Chlorhexidine Gluconate 1 applic 06/23/18 22:00 06/24/18 21:57 Hibiclens For Decolonization - TP 1 applic HS [facility]NEA Administration Pantoprazole Sodium 80 mg/ 100 mls @ 10 mls/hr 06/23/18 16:45 06/24/18 21:56 Sodium Chloride IVPB 10 mls/hr Q10H [facility] Administration 8 MG/HR Levothyroxine Sodium 75 mcg 06/24/18 07:00 06/25/18 06:35 Synthroid Injection - IVPUSH 75 mcg DAILY@0700 [facility] Administration Mupirocin 1 applic 06/23/18 22:00 06/24/18 21:57 Bactroban Ointment (For Decolonization) - NS 06/28/18 21:59 Not Given BID LINNEA Impression 1. CKD 2. right renal cyst 3. toe ulcer 4. hypothryoid 5. dementia 6. parkinsons 7. HTN 8. gout 9. uremia 10. anemia 11. GI bleed 12. LUCERO Plan - hg is stabilizing - GI workup in progress, pending pt cooperation - bun improving - monitor renal function
[2018-06-25] MEDS: MUPIROCIN 2% TOPICAL OINTMENT FOR DECOLONIZATION NS SCH ×2 (14:09→21:38)
[2018-06-25] MEDS: PANTOPRAZOLE SODIUM 80 MG in SODIUM CHLORIDE 100 ML IVPB SCH ×2 (14:09→21:38)
[2018-06-25] MEDS: CHLORHEXIDINE GLUCONATE 4% CLEANSER FOR DECOLONIZATION TP SCH (21:38)
[2018-06-26] MEDS: PANTOPRAZOLE SODIUM 80 MG in SODIUM CHLORIDE 100 ML IVPB SCH ×2 (05:58→18:18)
[2018-06-26] MEDS: LEVOTHYROXINE SODIUM 100 MCG VIAL IVPUSH SCH (06:09)
[2018-06-26 06:56] LABS: HEMATOCRIT 33.3 % (32.4-45.2); HEMOGLOBIN 11.2 GM/dL (10.7-15.3); MCH 29.1 pg (25.7-33.7); MCHC 33.7 g/dl (32.0-36.0); MEAN CELL VOLUME 86.4 fl (80-96); MEAN PLT VOLUME 7.1 fl (7.5-11.1); PLATELET COUNT 525 K/MM3 (134-434); RBC 3.85 M/mm3 (3.60-5.2); RDW 16.5 % (11.6-15.6); WHITE BLOOD COUNT 11.9 K/mm3 (4.0-10.0)
[2018-06-26 07:26] LABS: ANION GAP 13 MMOL/L (8-16); CALCIUM 8.6 mg/dL (8.5-10.1); CHLORIDE 113 mmol/L (98-107); CO2 19 mmol/L (21-32); CREATININE 2.7 mg/dL (0.55-1.3); GLUCOSE,RANDOM 57 mg/dL (74-106); MAGNESIUM 2.7 mg/dL (1.8-2.4); PHOSPHOROUS 4.6 mg/dL (2.5-4.9); POTASSIUM 4.1 mmol/L (3.5-5.1); SODIUM 146 mmol/L (136-145)
[2018-06-26 07:43] LABS: BLOOD UREA NITROGEN 111 mg/dL (7-18)
--- NOTE | 2018-06-26 09:43 | PN ---
Progress Note (short form) - Note Progress Note: Seen and examined in the ICU: -now signs of GIB -hemodynamically stable Current Medications Chlorhexidine Gluconate (Hibiclens For Decolonization -) 1 applic TP HS [facility] Last Admin: 06/25/18 21:38 Dose: 1 applic Pantoprazole Sodium 80 mg/ (Sodium Chloride) 100 mls @ 10 mls/hr IVPB Q10H [facility] Last Admin: 06/26/18 05:58 Dose: Not Given Levothyroxine Sodium (Synthroid Injection -) 75 mcg IVPUSH DAILY@0700 [facility] Last Admin: 06/26/18 06:09 Dose: 75 mcg Mupirocin (Bactroban Ointment (For Decolonization) -) 1 applic NS BID [facility] Stop: 06/28/18 21:59 Last Admin: 06/25/18 21:38 Dose: 1 applic Vital Signs Period Temp Pulse Resp BP Sys/Rolon Pulse Ox Last 24 Hr 97.6 F-98.1 F 62-77 10-18 153-166/53-81 100 CBC, BMP 06/26/18 05:30 06/26/18 05:30 General: awake and alert w/o distress, states she want to leave the hospital HEENT: PERRL CV: s1, s2 RRR Pulm: CTA ABD; SNTND Ext: WWP, RA changes noted Neuro: grossly intact CBCD WBC 11.9 K/mm3 (4.0-10.0) H 06/26/18 05:30 RBC 3.85 M/mm3 (3.60-5.2) 06/26/18 05:30 Hgb 11.2 GM/dL (10.7-15.3) 06/26/18 05:30 Hct 33.3 % (32.4-45.2) 06/26/18 05:30 MCV 86.4 fl (80-96) 06/26/18 05:30 MCHC 33.7 g/dl (32.0-36.0) 06/26/18 05:30 RDW 16.5 % (11.6-15.6) H 06/26/18 05:30 Plt Count 525 K/MM3 (134-434) H 06/26/18 05:30 MPV 7.1 fl (7.5-11.1) L 06/26/18 05:30 CMP Sodium 146 mmol/L (136-145) H 06/26/18 05:30 Potassium 4.1 mmol/L (3.5-5.1) 06/26/18 05:30 Chloride 113 mmol/L (98-107) H 06/26/18 05:30 Carbon Dioxide 19 mmol/L (21-32) L 06/26/18 05:30 Anion Gap 13 MMOL/L (8-16) 06/26/18 05:30 BUN 111 mg/dL (7-18) H* 06/26/18 05:30 Creatinine 2.7 mg/dL (0.55-1.3) H 06/26/18 05:30 Creat Clearance w eGFR 17.18 (>60) 06/26/18 05:30 Random Glucose 57 mg/dL (74-106) L 06/26/18 05:30 Calcium 8.6 mg/dL (8.5-10.1) 06/26/18 05:30 Total Bilirubin 0.4 mg/dL (0.2-1) 06/25/18 05:30 AST 140 U/L (15-37) H 06/25/18 05:30 ALT 130 U/L (13-61) H 06/25/18 05:30 Alkaline Phosphatase 69 U/L (45-117) 06/25/18 05:30 Total Protein 6.2 g/dl (6.4-8.2) L 06/25/18 05:30 Albumin 3.0 g/dl (3.4-5.0) L 06/25/18 05:30 CARDIAC ENZYMES Creatine Kinase 425 U/L (26-192) H 06/24/18 05:30 Troponin I 6.91 ng/ml (0.00-0.05) H* 06/24/18 13:45 ASSESSMENT AND PLAN: GI Bleed Acute Blood Loss Anemia +Troponins CKD HTN Hyperlipidemia Parkinsons Dementia - trend H/H, stable this AM - transfuse as needed for hgb >7.0 - protonix drip for 72hr then BID - trend cardiac enzymes - renal dose meds - O2 as needed for sat >90 - cardiology following - palliative care eval - stable for tele - DVT prophylaxis - stable for floor w/ tele Boerem ACNP CCT: 35
[2018-06-26] MEDS: MUPIROCIN 2% TOPICAL OINTMENT FOR DECOLONIZATION NS SCH ×2 (10:38→21:46)
--- NOTE | 2018-06-26 10:54 | PN ---
Progress Note, Physician - Current Medication List Current Medications: Active Medications Chlorhexidine Gluconate (Hibiclens For Decolonization -) 1 applic TP HS [facility] Last Admin: 06/25/18 21:38 Dose: 1 applic Pantoprazole Sodium 80 mg/ (Sodium Chloride) 100 mls @ 10 mls/hr IVPB Q10H [facility] Last Admin: 06/26/18 05:58 Dose: Not Given Levothyroxine Sodium (Synthroid Injection -) 75 mcg IVPUSH DAILY@0700 [facility] Last Admin: 06/26/18 06:09 Dose: 75 mcg Mupirocin (Bactroban Ointment (For Decolonization) -) 1 applic NS BID [facility] Stop: 06/28/18 21:59 Last Admin: 06/26/18 10:38 Dose: 1 applic - Objective Vital Signs: Vital Signs Temperature 97.9 F 06/26/18 06:00 Pulse Rate 65 06/26/18 06:00 Respiratory Rate 10 06/26/18 06:00 Blood Pressure 153/66 06/26/18 06:00 O2 Sat by Pulse Oximetry (%) 100 06/25/18 21:00 Cardiovascular: Yes: S1, S2 Respiratory: Yes: Regular, CTA Bilaterally Gastrointestinal: Yes: Normal Bowel Sounds, Soft Labs: CBC, BMP 06/26/18 05:30 06/26/18 05:30 INR, PTT INR 1.01 (0.83-1.09) 06/23/18 13:23 Assessment/Plan - Problems (1) Lactic acid acidosis Assessment/Plan: resolved now BP has improved and after 3 units PRBC h/h better Code(s): E87.2 - ACIDOSIS (2) LFT elevation Assessment/Plan: in setting of hypovolemia abdominal CT scan noted will trend it Code(s): R94.5 - ABNORMAL RESULTS OF LIVER FUNCTION STUDIES (3) Elevated troponin Assessment/Plan: troponin increased from 1.34 to 6.64 range echo ordered to look at ejection fraction-wall motion--inf wall hypokenisia cardiology consult-noted EKG changes for ST depression and T wave inversion follow labs Code(s): R74.8 - ABNORMAL LEVELS OF OTHER SERUM ENZYMES (4) GIB (gastrointestinal bleeding) Assessment/Plan: NPO except meds--start feeding ivv PPI stop octreotide appreciate GI note palliative team for advance directive psych consult for capacity to make decision h/h improved will monitor lactic acidosis resolved Code(s): K92.2 - GASTROINTESTINAL HEMORRHAGE, UNSPECIFIED Qualifiers: GI bleed type/associated pathology: melena Qualified Code(s): K92.1 - Melena (5) CKD (chronic kidney disease) Assessment/Plan: worsening renal falure in setting of gib renal consult noted monitor lytes and renal fucniton Code(s): N18.9 - CHRONIC KIDNEY DISEASE, UNSPECIFIED (6) HTN (hypertension) Assessment/Plan: BP improved today cardiology consult Code(s): I10 - ESSENTIAL (PRIMARY) HYPERTENSION Qualifiers: Hypertension type: unspecified Qualified Code(s): I10 - Essential (primary ) hypertension (7) Hypothyroid Assessment/Plan: iv synthroid will change to po synthroid in AM-100mcg po daily check tsh Code(s): E03.9 - HYPOTHYROIDISM, UNSPECIFIED
--- NOTE | 2018-06-26 16:36 | PN ---
Progress Note, Physician History of Present Illness: Pt seen and examined at bedside. She is asking to go home. - Current Medication List Current Medications: Active Medications Chlorhexidine Gluconate (Hibiclens For Decolonization -) 1 applic TP HS [facility] Last Admin: 06/25/18 21:38 Dose: 1 applic Pantoprazole Sodium 80 mg/ (Sodium Chloride) 100 mls @ 10 mls/hr IVPB Q10H [facility] Last Admin: 06/26/18 05:58 Dose: Not Given Levothyroxine Sodium (Synthroid Injection -) 75 mcg IVPUSH DAILY@0700 [facility] Last Admin: 06/26/18 06:09 Dose: 75 mcg Mupirocin (Bactroban Ointment (For Decolonization) -) 1 applic NS BID [facility] Stop: 06/28/18 21:59 Last Admin: 06/26/18 10:38 Dose: 1 applic - Objective Vital Signs: Vital Signs Temperature 97.9 F 06/26/18 16:00 Pulse Rate 69 06/26/18 16:00 Respiratory Rate 16 06/26/18 16:00 Blood Pressure 176/70 H 06/26/18 16:00 O2 Sat by Pulse Oximetry (%) 100 06/26/18 09:00 Constitutional: Yes: Calm Eyes: Yes: Conjunctiva Clear HENT: Yes: Atraumatic Neck: Yes: Supple Cardiovascular: Yes: S1, S2 Respiratory: Yes: CTA Bilaterally Gastrointestinal: Yes: Soft Genitourinary: Yes: WNL Musculoskeletal: Yes: WNL Edema: No Neurological: Yes: Oriented Psychiatric: Yes: Oriented Labs: CBC, BMP 06/26/18 05:30 06/26/18 05:30 INR, PTT INR 1.01 (0.83-1.09) 06/23/18 13:23 Problem List - Problems (1) Anemia Code(s): D64.9 - ANEMIA, UNSPECIFIED Qualifiers: Anemia type: unspecified type Qualified Code(s): D64.9 - Anemia, unspecified (2) CKD (chronic kidney disease) Code(s): N18.9 - CHRONIC KIDNEY DISEASE, UNSPECIFIED Assessment/Plan Current Medications Generic Name Dose Route Start Last Admin Trade Name Freq PRN Reason Stop Dose Admin Chlorhexidine Gluconate 1 applic 06/23/18 22:00 06/25/18 21:38 Hibiclens For Decolonization - TP 1 applic HS [facility] Administration Pantoprazole Sodium 80 mg/ 100 mls @ 10 mls/hr 06/23/18 16:45 06/26/18 05:58 Sodium Chloride IVPB Not Given Q10H [facility] 8 MG/HR Levothyroxine Sodium 75 mcg 06/24/18 07:00 06/26/18 06:09 Synthroid Injection - IVPUSH 75 mcg DAILY@0700 [facility] Administration Mupirocin 1 applic 06/23/18 22:00 06/26/18 10:38 Bactroban Ointment (For Decolonization) - NS 06/28/18 21:59 1 applic BID [facility] Administration Impression 1. CKD 2. right renal cyst 3. toe ulcer 4. hypothryoid 5. dementia 6. parkinsons 7. HTN 8. gout 9. uremia 10. anemia 11. GI bleed 12. LUCERO Plan - repeat labs in am - bun is improving - pt started on liquid diet - monitor renal function
[2018-06-26] MEDS ORDERED: hydrALAZINE HCL 20 MG/ML VIAL IM PRN (17:49)
[2018-06-26] MEDS: CHLORHEXIDINE GLUCONATE 4% CLEANSER FOR DECOLONIZATION TP SCH (21:46)
[2018-06-27] MEDS: PANTOPRAZOLE 40 MG TABLET (FP) PO SCH ×2 (04:00→09:43)
[2018-06-27] MEDS ORDERED: EPINEPHrine/PF 1 MG/1 ML (1:1,000) AMPULE ONE (06:04)
[2018-06-27 06:52] LABS: BASO % 0.7 % (0-2.0); EOS % 2.5 % (0-4.5); HEMATOCRIT 33.7 % (32.4-45.2); HEMOGLOBIN 11.5 GM/dL (10.7-15.3); LYMPH % 8.9 % (8-40); MCHC 34.1 g/dl (32.0-36.0); MEAN PLT VOLUME 6.9 fl (7.5-11.1); MONO % 6.3 % (3.8-10.2); NEUT % 81.6 % (42.8-82.8); PLATELET COUNT 516 K/MM3 (134-434); RBC 3.96 M/mm3 (3.60-5.2); RDW 16.6 % (11.6-15.6); WHITE BLOOD COUNT 9.9 K/mm3 (4.0-10.0)
[2018-06-27] MEDS ORDERED: LEVOTHYROXINE NA 75 MCG TABLET (FP) PO SCH (07:00)
[2018-06-27 07:31] LABS: ALBUMIN 2.9 g/dl (3.4-5.0); ALK PHOS 72 U/L (45-117); ANION GAP 12 MMOL/L (8-16); BILIRUBIN,TOTAL 0.6 mg/dL (0.2-1); BLOOD UREA NITROGEN 96 mg/dL (7-18); CALCIUM 8.5 mg/dL (8.5-10.1); CHLORIDE 106 mmol/L (98-107); CO2 20 mmol/L (21-32); CREATININE 2.4 mg/dL (0.55-1.3); GLUCOSE,RANDOM 83 mg/dL (74-106); MAGNESIUM 2.3 mg/dL (1.8-2.4); PHOSPHOROUS 4.4 mg/dL (2.5-4.9); POTASSIUM 3.8 mmol/L (3.5-5.1); SGOT/AST 61 U/L (15-37); SGPT/ALT 100 U/L (13-61); SODIUM 138 mmol/L (136-145); TOT PROT 6.1 g/dl (6.4-8.2)
--- NOTE | 2018-06-27 08:08 | PN ---
Progress Note (short form) - Note Progress Note: patient deemed competent, continue to refuse GI work up no active bleeding noted for the past 48 hours
[2018-06-27] MEDS: MUPIROCIN 2% TOPICAL OINTMENT FOR DECOLONIZATION NS SCH (09:44)
--- NOTE | 2018-06-27 09:58 | EKG ---
Test Reason : Blood Pressure : / mmHG Vent. Rate : 063 BPM Atrial Rate : 063 BPM P-R Int : 172 ms QRS Dur : 114 ms QT Int : 480 ms P-R-T Axes : 056 008 081 degrees QTc Int : 491 ms NORMAL SINUS RHYTHM LEFT VENTRICULAR HYPERTROPHY WITH REPOLARIZATION ABNORMALITY ST AND T WAVE ABNORMALITY DUE TO ABOVE VS. ISCHEMIA PROLONGED QT ABNORMAL ECG WHEN COMPARED WITH ECG OF 24-JUN-2018 09:05, Confirmed by JUANIS HAIRSTON, KIRSTEN ([id number]) on 06/27/2018 9:57:25 AM Referred By: JESSICA GAN Confirmed By:KIRSTEN OLIVAREZ MD
[2018-06-27 10:23] VITALS: BP 150/60; PULSE 60; TEMP 98
[2018-06-27] MEDS ORDERED: LEVOTHYROXINE NA 100 MCG TABLET (FP) PO SCH (10:41)
--- NOTE | 2018-06-27 10:41 | DS ---
Physical Examination Vital Signs: Vital Signs Temperature 98 F 06/27/18 10:00 Pulse Rate 60 06/27/18 10:00 Respiratory Rate 16 06/27/18 10:00 Blood Pressure 150/60 06/27/18 10:00 O2 Sat by Pulse Oximetry (%) 100 06/26/18 21:00 Constitutional: Yes: Calm, Thin Cardiovascular: Yes: Regular Rate and Rhythm, S1, S2 Respiratory: Yes: CTA Bilaterally Gastrointestinal: Yes: Normal Bowel Sounds, Soft Edema: No Neurological: Yes: Alert, Oriented Labs: CBC, BMP 06/27/18 05:30 06/27/18 05:30 Discharge Summary Reason For Visit: ELEVATED TROPONIN LEVEL,CHRONIC RENAL FAIL,ANEMIA Current Active Problems Asymptomatic bacteriuria (Acute) Elevated troponin (Acute) GIB (gastrointestinal bleeding) (Acute) HTN (hypertension) (Acute) LFT elevation (Acute) Lactic acid acidosis (Acute) Leukocytosis (Acute) Symptomatic anemia (Acute) Hospital Course: Primary Care Physician PCP: Emmanuel Cabrera - Admission Chief Complaint: sent in for abdominal pain and lethargy and weakness History of Present Illness: The patient is a 77 year old female, with a significant past medical history of GI bleed, Parkinson's, Dementia, HTN, HLD, CKD, COPD, Depression, GERD, Hypothyroid, Anemia, Gout, MDD, and hyperkalemia, who presents to the emergency department from [facility] for weakness lethargy in ER found to have h/h/ 3.9/11.3 melanotic stools \ admitted to ICU got 4 units PRBC now h/h improved GI saw patient refusing work up, iv ppi - seen by psych competent to make decision acute on chronic CKD ivf asymtomatic uti no need for abx positve troponin - demand ischemia- echo normal ejection fraction 50-55% left ventricle systolic function normal Condition: Improved - Instructions Disposition: [facility] - Home Medications Comprehensive Discharge Medication List: Ambulatory Orders Amlodipine Besylate [Norvasc -] 10 mg PO DAILY 05/27/18 Escitalopram Oxalate [Lexapro -] 20 mg PO DAILY 05/27/18 Famotidine [Pepcid] 20 mg PO 05/27/18 Ferrous Sulfate 325 mg PO 05/27/18 Hydralazine HCl 50 mg PO TID 05/27/18 Latanoprost 0.005% Eye Drops [Xalatan 0.005% Eye Drops -] 1 drop OP HS 05/27/18 Levothyroxine [Synthroid -] 100 mcg PO DAILY 05/27/18 Polyethylene Glycol 3350 [Miralax 119 gm Btl -] 17 gm PO DAILY 05/27/18 Prednisone 5 mg PO 05/27/18 Sodium Bicarbonate - 650 mg PO DAILY 05/27/18 Tamsulosin HCl [Flomax] 0.4 mg PO 05/27/18 Albuterol 0.083% Nebulizer Latoya [Ventolin 0.083% Nebulizer Soln -] 1 amp NEB Q6H PRN amp 06/04/18 Ferrous Sulfate [Feosol] 325 mg PO BID ud 06/04/18 Pantoprazole Sodium [Protonix -] 40 mg PO BID tablet.ec 06/04/18 Sodium Bicarbonate - 1,300 mg PO BID tablet 06/04/18
--- NOTE | 2018-06-27 12:13 | PN ---
Progress Note (short form) - Note Progress Note: HD# 4 Overnight Events: No acute events overnight. Pt states she is hungry. Denies abdominal pain, chest pain, sob, n/v/d, urinary symptoms, lightheadedness OBJECTIVE: VITAL SIGNS 06/27/18 06/27/18 06:00 09:00 Temperature 98.9 F Pulse Rate 62 Respiratory 15 Rate Blood Pressure 158/61 Oxygen Delivery Room Air Method Laboratory Tests 06/27/18 06/27/18 05:30 05:30 WBC 9.9 Hgb 11.5 Hct 33.7 Plt Count 516 H Sodium 138 Potassium 3.8 Chloride 106 Carbon Dioxide 20 L BUN 96 H Creatinine 2.4 H Troponin I 2.19 H* Lines: PIV Drains: None Supplemental Oxygen: None Physical Exam General Appearance: Awake, Alert, NAD Lungs: Lungs Clear, Normal Breath Sounds. No Crackles, Rales, Rhonchi, Wheezing Heart: Regular Rhythm, Regular Rate. No JVD, Murmur, Gallops, Rubs Abdomen: Normal Bowel Sounds, Soft. No Guarding, Rebound, Tenderness Musculoskeletal: No CVA Tenderness Extremity: Normal Capillary Refill Integumentary: Normal Color, Dry, Warm Drips: none Anti Infectives: none Hydralazine HCl (Apresoline -) 50 mg PO TID [facility] Hydralazine HCl (Apresoline Injection -) 20 mg IM Q8H PRN PRN Reason: SBP >180 Mupirocin (Bactroban Ointment (For Decolonization) -) 1 applic NS BID [facility] Stop: 06/28/18 21:59 Last Admin: 06/27/18 09:44 Dose: 1 applic Pantoprazole Sodium (Protonix -) 40 mg PO BID [facility] Last Admin: 06/27/18 09:43 Dose: 40 mg Levothyroxine Sodium (Synthroid -) 75 mcg PO DAILY@0700 [facility] Last Admin: 06/27/18 06:48 Dose: 75 mcg ASSESSMENT / PLAN: 77 year old female with a significant past medical history of GI bleed, Parkinson's, Dementia, HTN, HLD, CKD, COPD, Depression, GERD, Hypothyroid, Anemia, Gout, MDD, and hyperkalemia, who presents to the emergency department from [facility] for weakness and lethargy found to be anemic to 3.4 and hypotensive. Neuro (& Psych): -Evaluated by Dr. De La Rosa. Deemed competent Endocrine: -Hypothyroidism- getting home meds -Electrolytes wnl. Will trend - H/o CKD. function at baseline Cardiovascular: -Hypotensive and anemic on arrival. Suspect secondary to UGIB. - Elevated troponin, which trended upward overnight. Suspect demand ischemia in setting of poor renal clearance secondary to CKD. No ischemic EKG changes noted on EKG. Repeat trending downward -Hgb stable for the past 2 days at 11. No further transfusions necessary. Pulm / Resp: - not tachypneic, saturating well on RA. Gastrointestinal: -GIB with anemia and positive guaiac -Pt declining scope. Pt deemed to have capacity by psych. -PO Protonix Genitourinary: - UA positve with susceptible Klebsiella. Antibiotics per ID team. Hematologic: - Anemia 2/2 GIB. -Hgb stable at 11. Infectious Disease: -UTI. Ceftriaxone dc 06/24/2018 FEN: -normal diet Prophylaxis: - DVT: SCDs. No pharmacologic given active bleeding. - GI: Pantoprazole. Pt is stable hemodynamically stable, stable hgb. declining scope, deemed competent by psych. Will transfer from unit to floor. Problem List - Problems (1) Anemia Code(s): D64.9 - ANEMIA, UNSPECIFIED Qualifiers: Anemia type: unspecified type Qualified Code(s): D64.9 - Anemia, unspecified (2) CKD (chronic kidney disease) Code(s): N18.9 - CHRONIC KIDNEY DISEASE, UNSPECIFIED Qualifiers: Chronic kidney disease stage: unspecified stage Qualified Code(s): N18.9 - Chronic kidney disease, unspecified (3) Elevated troponin Code(s): R74.8 - ABNORMAL LEVELS OF OTHER SERUM ENZYMES (4) GI bleed Code(s): K92.2 - GASTROINTESTINAL HEMORRHAGE, UNSPECIFIED Qualifiers: GI bleed type/associated pathology: unspecified gastrointestinal hemorrhage type Qualified Code(s): K92.2 - Gastrointestinal hemorrhage, unspecified (5) HTN (hypertension) Code(s): I10 - ESSENTIAL (PRIMARY) HYPERTENSION Qualifiers: Hypertension type: unspecified Qualified Code(s): I10 - Essential (primary ) hypertension (6) Hypothyroid Code(s): E03.9 - HYPOTHYROIDISM, UNSPECIFIED Qualifiers: Hypothyroidism type: unspecified Qualified Code(s): E03.9 - Hypothyroidism , unspecified
[2018-06-27 13:48] LABS: ANION GAP 8 MMOL/L (8-16); BLOOD UREA NITROGEN 94 mg/dL (7-18); CALCIUM 8.8 mg/dL (8.5-10.1); CHLORIDE 107 mmol/L (98-107); CO2 20 mmol/L (21-32); CREATININE 2.3 mg/dL (0.55-1.3); GLUCOSE,RANDOM 105 mg/dL (74-106); POTASSIUM 3.8 mmol/L (3.5-5.1); SODIUM 134 mmol/L (136-145)
--- NOTE | 2018-06-27 13:59 | PN ---
Progress Note, Physician History of Present Illness: Pt seen and examined at bedside. She is awake and alert. She is asking to back to rehab. - Current Medication List Current Medications: Active Medications Chlorhexidine Gluconate (Hibiclens For Decolonization -) 1 applic TP HS [facility] Last Admin: 06/26/18 21:46 Dose: 1 applic Hydralazine HCl (Apresoline -) 50 mg PO TID [facility] Levothyroxine Sodium (Synthroid -) 100 mcg PO DAILY@0700 [facility] Mupirocin (Bactroban Ointment (For Decolonization) -) 1 applic NS BID [facility] Stop: 06/28/18 21:59 Last Admin: 06/27/18 09:44 Dose: 1 applic Pantoprazole Sodium (Protonix -) 40 mg PO BID [facility] Last Admin: 06/27/18 09:43 Dose: 40 mg Sodium Bicarbonate (Sodium Bicarbonate -) 650 mg PO BID [facility] - Objective Vital Signs: Vital Signs Temperature 98 F 06/27/18 10:00 Pulse Rate 60 06/27/18 10:00 Respiratory Rate 16 06/27/18 10:00 Blood Pressure 150/60 06/27/18 10:00 O2 Sat by Pulse Oximetry (%) 100 06/26/18 21:00 Constitutional: Yes: Calm Eyes: Yes: Conjunctiva Clear HENT: Yes: Atraumatic Neck: Yes: Supple Cardiovascular: Yes: S1, S2 Respiratory: Yes: CTA Bilaterally Gastrointestinal: Yes: Soft Genitourinary: Yes: WNL Musculoskeletal: Yes: Joint Stiffness Edema: No Neurological: Yes: Oriented Psychiatric: Yes: Oriented Labs: CBC, BMP 06/27/18 05:30 06/27/18 12:54 INR, PTT INR 1.01 (0.83-1.09) 06/23/18 13:23 Problem List - Problems (1) Anemia Code(s): D64.9 - ANEMIA, UNSPECIFIED Qualifiers: Anemia type: unspecified type Qualified Code(s): D64.9 - Anemia, unspecified (2) CKD (chronic kidney disease) Code(s): N18.9 - CHRONIC KIDNEY DISEASE, UNSPECIFIED Assessment/Plan Current Medications Generic Name Dose Route Start Last Admin Trade Name Freq PRN Reason Stop Dose Admin Chlorhexidine Gluconate 1 applic 06/23/18 22:00 06/26/18 21:46 Hibiclens For Decolonization - TP 1 applic HS [facility] Administration Hydralazine HCl 50 mg 06/27/18 14:00 Apresoline - PO TID [facility] Levothyroxine Sodium 100 mcg 06/27/18 10:41 Synthroid - PO DAILY@0700 [facility] Mupirocin 1 applic 06/23/18 22:00 06/27/18 09:44 Bactroban Ointment (For Decolonization) - NS 06/28/18 21:59 1 applic BID [facility] Administration Pantoprazole Sodium 40 mg 06/26/18 23:00 06/27/18 09:43 Protonix - PO 40 mg BID [facility] Administration Sodium Bicarbonate 650 mg 06/27/18 22:00 Sodium Bicarbonate - PO BID [facility] Impression 1. CKD 2. right renal cyst 3. toe ulcer 4. hypothryoid 5. dementia 6. parkinsons 7. HTN 8. gout 9. uremia 10. anemia 11. GI bleed 12. LUCERO Plan - pt refusing workup - renal function stabilizing - monitor labs in rehab - can see in office - bun is improving
[2018-06-27] MEDS ORDERED: hydrALAZINE HCL 25 MG TABLET (FP) PO SCH (14:00)
--- NOTE | 2018-06-27 14:34 | PN ---
Teaching Attending Note Name of Resident: Marlee Daily ATTENDING PHYSICIAN STATEMENT I saw and evaluated the patient. I reviewed the resident's note and discussed the case with the resident. I agree with the resident's findings and plan as documented. SUBJECTIVE: Patient seen and examined in the ICU. Awake and alert. No CP or SOB. No occult bleeding and H&H stable. Reports that she does not want any further testing and wants to be discharged. Intake & Output 06/24/18 06/25/18 06/26/18 06/27/18 23:59 23:59 23:59 23:59 Intake Total 120 270 Output Total 100 Balance -100 120 270 Weight 125 lb 95 lb 100 lb 6.4 oz Last Vital Signs Temp Pulse Resp BP Pulse Ox 98 F 60 16 150/60 100 06/27/18 10:00 06/27/18 10:00 06/27/18 10:00 06/27/18 10:00 06/26/18 21:00 Active Medications Chlorhexidine Gluconate (Hibiclens For Decolonization -) 1 applic TP HS [facility] Last Admin: 06/26/18 21:46 Dose: 1 applic Hydralazine HCl (Apresoline -) 50 mg PO TID [facility] Levothyroxine Sodium (Synthroid -) 100 mcg PO DAILY@0700 [facility] Mupirocin (Bactroban Ointment (For Decolonization) -) 1 applic NS BID [facility] Stop: 06/28/18 21:59 Last Admin: 06/27/18 09:44 Dose: 1 applic Pantoprazole Sodium (Protonix -) 40 mg PO BID [facility] Last Admin: 06/27/18 09:43 Dose: 40 mg Sodium Bicarbonate (Sodium Bicarbonate -) 650 mg PO BID [facility] General: awake and alert, NAD HEENT: PERRL CV: s1, s2 RRR Pulm: CTA ABD; SNTND Ext: WWP, RA changes noted Neuro: grossly intact Laboratory Results - last 24 hr 06/23/18 06/26/18 06/27/18 13:20 18:13 05:30 WBC 9.9 RBC 3.96 Hgb 11.5 Hct 33.7 MCV 85.0 MCH 29.0 MCHC 34.1 RDW 16.6 H Plt Count 516 H MPV 6.9 L Absolute Neuts (auto) 8.1 H Neutrophils % 81.6 Lymphocytes % 8.9 D Monocytes % 6.3 Eosinophils % 2.5 D Basophils % 0.7 Nucleated RBC % 0 Sodium Potassium Chloride Carbon Dioxide Anion Gap BUN Creatinine Creat Clearance w eGFR Random Glucose Calcium Phosphorus Magnesium Total Bilirubin AST ALT Alkaline Phosphatase Creatine Kinase 126 Troponin I 2.03 H* Total Protein Albumin Blood Type O NEGATIVE Antibody Screen Negative Crossmatch See Detail 06/27/18 06/27/18 05:30 12:54 WBC RBC Hgb Hct MCV MCH MCHC RDW Plt Count MPV Absolute Neuts (auto) Neutrophils % Lymphocytes % Monocytes % Eosinophils % Basophils % Nucleated RBC % Sodium 138 134 L Potassium 3.8 3.8 Chloride 106 107 Carbon Dioxide 20 L 20 L Anion Gap 12 8 BUN 96 H 94 H Creatinine 2.4 H 2.3 H Creat Clearance w eGFR 19.68 20.67 Random Glucose 83 105 Calcium 8.5 8.8 Phosphorus 4.4 Magnesium 2.3 Total Bilirubin 0.6 AST 61 H ALT 100 H Alkaline Phosphatase 72 Creatine Kinase 100 Troponin I 2.19 H* 1.81 H* Total Protein 6.1 L Albumin 2.9 L Blood Type Antibody Screen Crossmatch ASSESSMENT AND PLAN: GI Bleed Acute Blood Loss Anemia +Troponins CKD HTN Hyperlipidemia Parkinsons Dementia The patient has been stable and is refusing further workup of her anemia. Risks and benefits were explained in detail and she expressed understanding. Will inform PMD for further diso. PPI PO as tolerated OOB to chair Floor or discharge Dr Fry
[2018-06-27] MEDS ORDERED: SODIUM BICARBONATE 650 MG TABLET PO SCH (22:00)
== END 2018-06-27 15:13 | DRG 378 ==
LOC: JER 12:47 → JERBED 15:34 → JICU 21:40
PROVIDERS: ADMIT Family Medicine; ATTEND Family Medicine
PROC: 30233N1 Transfusion of Nonautologous Red Blood Cells into Peripheral Vein, Percutaneous Approach (ICD-10-PCS; principal; 2018-06-23)
DX: K92.2 Gastrointestinal hemorrhage, unspecified (principal); D62 Acute posthemorrhagic anemia; N17.9 Acute kidney failure, unspecified; E87.2 Acidosis; I24.8 Other forms of acute ischemic heart disease; I13.0 Hypertensive heart and chronic kidney disease with heart failure and stage 1 through stage 4 chronic kidney disease, or unspecified chronic kidney disease; R64 Cachexia; Z68.1 Body mass index [BMI] 19.9 or less, adult; L97.509 Non-pressure chronic ulcer of other part of unspecified foot with unspecified severity; N18.9 Chronic kidney disease, unspecified; G20 Parkinson's disease; F02.80 Dementia in other diseases classified elsewhere, unspecified severity, without behavioral disturbance, psychotic disturbance, mood disturbance, and anxiety; E03.9 Hypothyroidism, unspecified; F31.9 Bipolar disorder, unspecified; J44.9 Chronic obstructive pulmonary disease, unspecified; K21.9 Gastro-esophageal reflux disease without esophagitis; E78.5 Hyperlipidemia, unspecified; Z87.891 Personal history of nicotine dependence; N28.1 Cyst of kidney, acquired; M10.9 Gout, unspecified; R94.5 Abnormal results of liver function studies
CPT/HCPCS: 36415; 36430; 36511; 70450-TC; 71045-TC-FY; 74176-TC; 80048; 80053; 80061; 81003; 82272; 82550; 82553; 83605; 83690; 83721; 83735; 83880; 84100; 84443; 84484; 85025; 85027; 85610; 85730; 86850; 86900; 86901; 86922; 87040; 87086; 87186; 90670; 93005; 93010; 93306-TC; 99285-25; J0131; P9038; P9058

== ENCOUNTER 2018-07-18 10:51 | Inpatient (IN) | payer OTHER ==
--- NOTE | 2018-07-18 11:19 | PDOC ---
Attending Attestation - Resident Resident Name: Nusrat Magana - ED Attending Attestation I have performed the following: I have examined & evaluated the patient, The case was reviewed & discussed with the resident, I agree w/resident's findings & plan, Exceptions are as noted - HPI HPI: 07/18/18 16:27 agree with resident HPI - Physicial Exam PE: 07/18/18 16:27 agree with resident HPI - Medical Decision Making 07/18/18 12:18 77yo F presents to the ED from [facility] with low hgb on labs done 07/13 and melena x 1 day Pt was hypotensive in the field to 90/50, but in the ED 139/66 Rectal exam with black melanotic stool Not on anticoagulation. No hx cirrhosis Hgb 5.1 Plan to transfuse 2 units, give PPI, admit Pt is hemodynamically stable at this time 07/18/18 14:24 Pt had a large episode of bright red hematemesis with clots in the ED Pt lethargic after episode, HR 70, BP 134/80 Pt was intubated for airway protection using 150mg ketamine and 20mg rocuronium Poor view with DL, switched to VL had grade 2 view of cords. Visualized passing tube through cords O2 sat 100% throughout +color change, b/l BS Dr. Tijerina came down to evaluate pt Blood currently infusing Pt accepted to ICU, however Dr. Goyal states they can't take the pt with an IV in her leg (even though it is large bore 18G) Attempted L IJ access multiple times unsuccessfully. Despite flash multiple times, unable to draw back long enoguh to pass wire. Per speech and drama teacher, large bore IV in foot IS acceptable coverage. Will send pt up to available ICU bed. RANDY Germain updated about change in clinical status Heart Score/ECG Review #1 07/18/18 11:16 Twelve-lead EKG was performed and reviewed by me. Normal sinus rhythm, rate 69. Normal axis. ST elevation in aVR with ST depressions in 1, 2 and V3 to V6. When compared to EKG from 06/27/18, no sig change
[2018-07-18 11:37] LABS: BASO % 1.2 % (0-2.0); EOS % 1.7 % (0-4.5); HEMATOCRIT 15.8 % (32.4-45.2); LYMPH % 14.4 % (8-40); MCH 28.2 pg (25.7-33.7); MEAN CELL VOLUME 88.1 fl (80-96); MEAN PLT VOLUME 8.2 fl (7.5-11.1); NEUT % 78.7 % (42.8-82.8); PLATELET COUNT 575 K/MM3 (134-434); RDW 17.6 % (11.6-15.6); WHITE BLOOD COUNT 10.2 K/mm3 (4.0-10.0)
[2018-07-18 11:47] LABS: HEMOGLOBIN 5.1 GM/dL (10.7-15.3)
[2018-07-18 11:52] LABS: INR 0.95 (0.83-1.09); PROTHROMBIN TIME (PATIENT) 11.2 SEC (9.7-13.0)
[2018-07-18 11:54] LABS: ACTIVATED PTT 32.3 SECONDS (25.2-36.5)
--- NOTE | 2018-07-18 11:58 | PDOC ---
History of Present Illness - General Chief Complaint: Abnormal Lab Results (Outside) Stated Complaint: GI BLEEED Time Seen by Provider: 07/18/18 11:00 - History of Present Illness Initial Comments: 77yo F with PMH of anemia, COPD, HTN, HLD, Parkinsons, Failure to thrive coming from [facility] presenting with low hemoglobin. [place] paperwork shows she had a hgb of 6.2 on 07/13/18. Per EMS report, patient has had black stools and hematemesis. Patient is unable to contribute appreciably to history repeatedly saying "help me, help me." Past History - Past Medical History Allergies/Adverse Reactions: Allergies Allergy/AdvReac Type Severity Reaction Status Date / Time No Known Allergies Allergy Verified 05/27/18 17:34 Home Medications: Ambulatory Orders Amlodipine Besylate [Norvasc -] 10 mg PO DAILY 05/27/18 Escitalopram Oxalate [Lexapro -] 20 mg PO DAILY 05/27/18 Latanoprost 0.005% Eye Drops [Xalatan 0.005% Eye Drops -] 1 drop OP HS 05/27/18 Levothyroxine [Synthroid -] 100 mcg PO DAILY 05/27/18 Polyethylene Glycol 3350 [Miralax 119 gm Btl -] 17 gm PO DAILY 05/27/18 Ferrous Sulfate [Feosol] 325 mg PO BID ud 06/04/18 Pantoprazole Sodium [Protonix -] 40 mg PO BID tablet.ec 06/04/18 Tamsulosin HCl [Flomax] 0.4 mg PO DAILY #30 tab 06/27/18 Metoprolol Succinate [Toprol Xl] 25 mg PO DAILY 07/18/18 Anemia: Yes Asthma: No Cancer: No Cardiac Disorders: No CVA: No COPD: Yes CHF: No Dementia: Yes Diabetes: No GI Disorders: No Disorders: Yes (incont) HTN: Yes Hypercholesterolemia: Yes Liver Disease: No Seizures: No Thyroid Disease: Yes (hypothyroidsm) - Surgical History Abdominal Surgery: No Appendectomy: Yes Cardiac Surgery: No Cholecystectomy: No Lung Surgery: No Neurologic Surgery: No Orthopedic Surgery: No - Immunization History Immunization Up to Date: Yes - Suicide/Smoking/Psychosocial Hx Smoking History: Former smoker Have you smoked in the past 12 months: No Number of Cigarettes Smoked Daily: 5 If you are a former smoker, when did you quit?: 5 years ago Information on smoking cessation initiated: No Hx Alcohol Use: No Drug/Substance Use Hx: No Substance Use Type: None Hx Substance Use Treatment: No Review of Systems - Review of Systems Able to Perform ROS?: No *Physical Exam - Vital Signs Last Vital Signs Temp Pulse Resp BP Pulse Ox 98.9 F 64 14 139/66 100 07/18/18 11:00 07/18/18 11:00 07/18/18 11:00 07/18/18 11:00 07/18/18 11:15 - Physical Exam Comments: General: Awake, alert, able to state name and date (not year/month/place) , cachectic Head: No signs of trauma Eyes: EOMI, sclera anicteric ENT: Dry mucus membranes Neck: Normal ROM, supple Lungs: Lungs clear, Normal breath sounds Cardio: Regular rhythm, S1 and S2 present Abdomen: Soft, nontender, nondistended Extremities: Normal range of motion, Distal pulses present SKIN: Pale Neurologic: Able to follow some commands Procedures - Central Line Progress: Several attempts made at Left IJ. Unsuccessful. - Intubation Intubation Method: orotracheal Blade used: Mac Tube Size (Fr): 7.0 Medications: Ketamine, Rocuronium Tube position confirmed by: Direct visualization, CO2 detector, Chest x-ray Breath Sounds after Intubation: equal Intubation Complications: no complications Post Intubation Xray: Yes (Tube too shallow; Advanced tube by 2cm) ED Treatment Course - LABORATORY CBC & Chemistry Diagram: 07/18/18 11:00 07/18/18 11:00 - ADDITIONAL ORDERS Additional order review: Laboratory Results 07/18/18 07/18/18 07/18/18 11:00 11:00 11:00 PT with INR 11.20 INR 0.95 PTT (Actin FS) 32.3 Stool Occult Blood Positive Crossmatch See Detail 07/18/18 11:00 RBC 1.80 L MCV 88.1 MCHC 32.0 RDW 17.6 H MPV 8.2 D Neutrophils % 78.7 Lymphocytes % 14.4 D Monocytes % 4.0 Eosinophils % 1.7 Basophils % 1.2 - RADIOLOGY Radiology Studies Ordered: Category Date Time Status CHEST X-RAY PORTABLE* [RAD] Stat Radiology 07/18/18 11:15 Taken Medical Decision Making - Medical Decision Making 77yo F with PMH of anemia, COPD, HTN, HLD, Parkinsons, Failure to thrive coming from [facility] presenting with low hemoglobin. DDX including but not limited to upper vs. lower GI bleed, malignancy, anemia, electrolyte abnormality Labs, GI consult EKG: rate 69, QTc 454, NSR, LVH 07/18/18 11:57 CXR: "Single AP view of the chest is submitted. Since 06/26/2018 there is no significant change. There are clear lungs, prominent mediastinum with sclerotic knob and some degenerative changes. An acute chest process is not seen. Impression: No acute chest pathology. No significant change since 06/26/2018. " 07/18/18 12:23 1g Ofirmev ordered for abdominal pain 07/18/18 13:38 CBC WBC 10.2 K/mm3 (4.0-10.0) H 07/18/18 11:00 RBC 1.80 M/mm3 (3.60-5.2) L 07/18/18 11:00 Hgb 5.1 GM/dL (10.7-15.3) L* 07/18/18 11:00 Hct 15.8 % (32.4-45.2) L D 07/18/18 11:00 MCV 88.1 fl (80-96) 07/18/18 11:00 MCH 28.2 pg (25.7-33.7) 07/18/18 11:00 MCHC 32.0 g/dl (32.0-36.0) 07/18/18 11:00 RDW 17.6 % (11.6-15.6) H 07/18/18 11:00 Plt Count 575 K/MM3 (134-434) H 07/18/18 11:00 MPV 8.2 fl (7.5-11.1) D 07/18/18 11:00 Absolute Neuts (auto) 8.0 K/mm3 (1.5-8.0) 07/18/18 11:00 Neutrophils % 78.7 % (42.8-82.8) 07/18/18 11:00 Lymphocytes % 14.4 % (8-40) D 07/18/18 11:00 Monocytes % 4.0 % (3.8-10.2) 07/18/18 11:00 Eosinophils % 1.7 % (0-4.5) 07/18/18 11:00 Basophils % 1.2 % (0-2.0) 07/18/18 11:00 Nucleated RBC % 0 % (0-0) 07/18/18 11:00 Slight leukocytosis Anemic, hgb =5.1 2u PRBC's ordered; 2 physician consent signed as patient is not able to verbalize the benefits/risks of transfusion and thus does not have capacity. CMP Sodium 138 mmol/L (136-145) 07/18/18 11:00 Potassium 4.4 mmol/L (3.5-5.1) 07/18/18 11:00 Chloride 106 mmol/L (98-107) 07/18/18 11:00 Carbon Dioxide 20 mmol/L (21-32) L 07/18/18 11:00 Anion Gap 12 MMOL/L (8-16) 07/18/18 11:00 BUN 159 mg/dL (7-18) H* 07/18/18 11:00 Creatinine 2.4 mg/dL (0.55-1.3) H 07/18/18 11:00 Est GFR (CKD-EPI)AfAm 22.15 07/18/18 11:00 Est GFR (CKD-EPI)NonAf 19.11 07/18/18 11:00 POC Glucometer 176 UNITS (80-120) 07/18/18 18:00 Random Glucose 132 mg/dL (74-106) H 07/18/18 11:00 Calcium 9.4 mg/dL (8.5-10.1) 07/18/18 11:00 Total Bilirubin 0.2 mg/dL (0.2-1) 07/18/18 11:00 AST 16 U/L (15-37) 07/18/18 11:00 ALT 14 U/L (13-61) 07/18/18 11:00 Alkaline Phosphatase 67 U/L (45-117) 07/18/18 11:00 Troponin I 0.03 ng/ml (0.00-0.05) 07/18/18 11:00 Total Protein 6.5 g/dl (6.4-8.2) 07/18/18 11:00 Albumin 3.0 g/dl (3.4-5.0) L 07/18/18 11:00 BUN 159, Tpn 0.03 Cr=2.4 which is at patient's baseline Discussed case with LAUNDRY ROUTEMAN Aura Germain who accepts patient for admission Patient with significant hematemesis while in the ED. Decision made to intubate the patient to protect her airway. Please see procedure note. Discussed case with ICU team who accepts patient for ICU admission Inpatient team made aware 07/18/18 14:23 Several attempts made at Left IJ central venous catheter. Unsuccessful, likely due to blood clotting in the needle. 07/18/18 18:07 *DC/Admit/Observation/Transfer Diagnosis at time of Disposition: GI bleed - Discharge Dispostion Condition at time of disposition: Guarded Decision to Admit order: Yes - Referrals - Patient Instructions - Post Discharge Activity
[2018-07-18 12:18] LABS: BILIRUBIN,TOTAL 0.2 mg/dL (0.2-1); CALCIUM 9.4 mg/dL (8.5-10.1); CREATININE 2.4 mg/dL (0.55-1.3); POTASSIUM 4.4 mmol/L (3.5-5.1); TOT PROT 6.5 g/dl (6.4-8.2)
[2018-07-18] MEDS: PANTOPRAZOLE SODIUM 80 MG in SODIUM CHLORIDE 100 ML IVPB SCH ×2 (12:30→21:48)
[2018-07-18] MEDS ORDERED: ACETAMINOPHEN 1000 MG/100 ML VIAL (NON FORMULARY) IVPB ONE (13:34)
[2018-07-18] MEDS ORDERED: ACETAMINOPHEN INJECTION 100 ML IVPB ONE (13:36)
[2018-07-18] MEDS ORDERED: RAPID SEQUENCE INTUBATION KIT NR ONE (13:50)
[2018-07-18] MEDS ORDERED: KETAMINE HCL 200 MG/20 ML VIAL ONE (13:51)
[2018-07-18] MEDS ORDERED: MIDAZOLAM HCL 2 MG/2 ML SINGLE DOSE VIAL IVPUSH ONE ×2 (14:31→22:14)
[2018-07-18] MEDS ORDERED: KETAMINE HCL 200 MG/20 ML VIAL IVPUSH ONE (14:32)
[2018-07-18] MEDS ORDERED: ROCURONIUM BROMIDE 50 MG/5 ML VIAL IV ONE (14:33)
[2018-07-18] MEDS ORDERED: ONDANSETRON 4 MG/2 ML VIAL IVPUSH ONE (14:33)
[2018-07-18] MEDS ORDERED: KETAMINE HCL 500 MG/10 ML VIAL IV ONE (14:34)
[2018-07-18] MEDS ORDERED: MIDAZOLAM HCL 2 MG/2 ML SINGLE DOSE VIAL ONE ×3 (14:40→22:15)
--- NOTE | 2018-07-18 14:45 | PN ---
Progress Note (short form) - Note Progress Note: GI CONSULT DICTATED - NPO / IVF - TRANSFUSE PRBC - PPI INFUSION - SERIAL CBC - WILL CONTACT HCP ? FAMILY AND DISCUSS RISK / BENEFIT OF ENDOSCOPIC PROCEDURE. - WILL FOLLOW CLOSELY FOR POTENTIAL URGENT EGD TONIGHT ONCE SHE IS ADEQUATELY RESUSCITATED
[2018-07-18] MEDS: FENTANYL INJECTION 500 MCG in DEXTROSE 5%-WATER - 90 ML IVPB SCH ×2 (15:00→21:48)
--- NOTE | 2018-07-18 15:03 | EKG ---
Test Reason : Blood Pressure : / mmHG Vent. Rate : 069 BPM Atrial Rate : 069 BPM P-R Int : 186 ms QRS Dur : 118 ms QT Int : 424 ms P-R-T Axes : 065 013 192 degrees QTc Int : 454 ms NORMAL SINUS RHYTHM LEFT VENTRICULAR HYPERTROPHY WITH QRS WIDENING AND REPOLARIZATION ABNORMALITY ABNORMAL ECG WHEN COMPARED WITH ECG OF 27-JUN-2018 08:33, Confirmed by KIRSTEN OLIVAREZ MD ([id number]) on 07/18/2018 3:03:17 PM Referred By: Confirmed By:KIRSTEN OLIVAREZ MD
--- NOTE | 2018-07-18 15:24 | CONS ---
DATE OF CONSULTATION: 07/18/2018 HISTORY OF PRESENT ILLNESS: The patient is a 77-year-old female, past medical history of chronic kidney disease, COPD, hypertension, hyperlipidemia, Parkinson's disease, also with dementia who presents from [facility] with a low hemoglobin. As per the paperwork, hemoglobin there was 6.2 on the 13 of July. Apparently she was noted to have some dark stool while at the facility and while in the ER today she had an episode of bright red blood hematemesis with some clots. She does not offer any additional history. As per the record, there is no history of any anticoagulation, abdominal pain or previous episodes of GI bleed. Hemoglobin on admission is 5 and she also had an EKG performed in the emergency room which revealed ST elevation in the aVR with ST depressions in I, II, V3 and V6, and compared from an EKG which was done on June 27 there was really not much of a significant change on a preliminary review. PAST MEDICAL AND SURGICAL HISTORY: As listed in the HPI. ALLERGIES: No known drug allergies. SOCIAL HISTORY: Noncontributory. FAMILY HISTORY: Unable to obtain. MEDICATIONS AT THE FACILITY: Include Norvasc, Lexapro, Xalatan eye drops, Synthroid, MiraLAX, iron b.i.d., Protonix 40 mg p.o. b.i.d., Flomax and Toprol XL. REVIEW OF SYSTEMS: Unable to obtain secondary to her dementia. PHYSICAL EXAMINATION: Vital Signs: Temperature 98, pulse 64, blood pressure 139/66, respiratory rate 14. She is currently being intubated. General: No acute distress. She does not respond to questions at this time. Heart: S1, S2. Regular rate and rhythm. Lungs: Bilaterally clear anteriorly to auscultation. Abdomen: Nontender and soft. Extremities: No edema. LABORATORIES: White blood cell count 10.2, hemoglobin 5.1 and hematocrit 15, MCV 88, platelet count 575, INR 0.95, sodium 138, potassium 4.4, BUN 159 and creatinine 2.4, glucose 132, AST 16, ALT 14, troponin 0.03, albumin 3, alkaline phosphatase 67. Stool for occult blood was done in the emergency room and was positive. Chest x-ray was also performed in the ER and revealed no acute pathology. IMPRESSION: Severe anemia with an episode of hematemesis most likely secondary to an upper gastrointestinal bleed. Peptic ulcer disease is high on the differential diagnosis at this time as well as angiectasias or Dieulafoy lesions. RECOMMENDATION: N.p.o. IV fluids. Intubation for airway protection. ICU admission. Protonix infusion. Serial CBCs q.6 hours. She will need to be transfused blood to a hemoglobin of 9 to 10. She will need a diagnostic upper endoscopy once she is adequately resuscitated. This can be done later tonight or tomorrow morning. Will follow closely this patient. Will also attempt to get in contact with her healthcare proxy to discuss the risks and benefits of endoscopic evaluation in this patient. DO FREDI KAY/[id number]
[2018-07-18] MEDS ORDERED: MIDAZOLAM HCL 5 MG/1 ML Single Dose Vial IVPUSH ONE (16:50)
[2018-07-18] MEDS ORDERED: FERROUS SO4 325 MG TABLET (FP) PO SCH (17:30)
--- NOTE | 2018-07-18 17:36 | HP ---
Admitting History and Physical - Admission Chief Complaint: Abnormal lab results History of Present Illness: Patient is a 77 y/o female with past medical history of anemia, COPD, HTN, HLD, Parkinson's Disease, Failure to Thrive. Patient was transferred from [facility] for low Hg result, [place] home papers say Hg 6.2. In ER noted with Hg 5.1, melena, and an episode of hematemesis. Patient was then intubated to protect airway. History Source: Medical Record Limitations to Obtaining History: Intubated - Past Medical History GRINDER HARDBOARD: Yes: Dementia, Parkinson's Cardiovascular: Yes: HTN, Hyperlipdemia Renal/: Yes: Renal Inusuff Heme/Onc: Yes: Anemia Psych: Yes: Depression Rheumatology: Yes: Other (arthritis) Endocrine: Yes: Hypothyroidism - Past Surgical History Past Surgical History: Yes: Appendectomy, Tonsillectomy - Smoking History Smoking history: Former smoker Have you smoked in the past 12 months: No Aproximately how many cigarettes per day: 5 If you are a former smoker, when did you quit?: 5 years ago - Alcohol/Substance Use Hx Alcohol Use: No History of Substance Use: reports: None - Social History Usual Living Arrangement: Yes: [facility] ADL: Support Services History of Recent Travel: No Home Medications - Allergies Allergies/Adverse Reactions: Allergies Allergy/AdvReac Type Severity Reaction Status Date / Time No Known Allergies Allergy Verified 05/27/18 17:34 - Home Medications Home Medications: Ambulatory Orders Amlodipine Besylate [Norvasc -] 10 mg PO DAILY 05/27/18 Escitalopram Oxalate [Lexapro -] 20 mg PO DAILY 05/27/18 Latanoprost 0.005% Eye Drops [Xalatan 0.005% Eye Drops -] 1 drop OP HS 05/27/18 Levothyroxine [Synthroid -] 100 mcg PO DAILY 05/27/18 Polyethylene Glycol 3350 [Miralax 119 gm Btl -] 17 gm PO DAILY 05/27/18 Ferrous Sulfate [Feosol] 325 mg PO BID ud 06/04/18 Pantoprazole Sodium [Protonix -] 40 mg PO BID tablet.ec 06/04/18 Tamsulosin HCl [Flomax] 0.4 mg PO DAILY #30 tab 06/27/18 Metoprolol Succinate [Toprol Xl] 25 mg PO DAILY 07/18/18 Family Disease History - Family Disease History Family Disease History: Other: Father ( 70's: pancreatic Ca), Mother (: 70's: [place]), Brother (None), Sister (None), Daughter (3 daughters, 2 , ? causes) Review of Systems Unable to obtain ROS, reason: intubated Physical Examination Vital Signs: Vital Signs Temperature 98 F 07/18/18 16:41 Pulse Rate 64 07/18/18 16:41 Respiratory Rate 27 H 07/18/18 17:16 Blood Pressure 164/61 07/18/18 16:41 O2 Sat by Pulse Oximetry (%) 100 07/18/18 16:02 Constitutional: Yes: No Distress Eyes: Yes: Conjunctiva Clear HENT: Yes: Atraumatic Cardiovascular: Yes: Regular Rate and Rhythm Respiratory: Yes: CTA Bilaterally, Mechanically Ventilated Gastrointestinal: Yes: Normal Bowel Sounds, Soft, Melena Musculoskeletal: Yes: Muscle Weakness Extremities: Yes: WNL Edema: No Neurological: Yes: Other (sedated) Labs: CBC, BMP 07/18/18 11:00 07/18/18 11:00 Imaging - Results Chest X-ray: Report Reviewed Problem List - Problems (1) GIB (gastrointestinal bleeding) Assessment/Plan: -GI on board -Hg 5.1 -monitor Hg closely and transfuse for Hg >9.0 -1U PRBC transfused, pending 2nd unit -CBC q6h -NPO -IV hydration -Pantoprazole drip -cardiology clearance for EGD Code(s): K92.2 - GASTROINTESTINAL HEMORRHAGE, UNSPECIFIED (2) Anemia Assessment/Plan: -2/2 to GI bleed -GI on board -Hg 5.1 -monitor Hg closely and transfuse for Hg >9.0 -1U PRBC transfused, pending 2nd unit -CBC q6h -NPO -IV hydration -Pantoprazole drip Code(s): D64.9 - ANEMIA, UNSPECIFIED Qualifiers: Anemia type: unspecified type Qualified Code(s): D64.9 - Anemia, unspecified (3) CKD (chronic kidney disease) Assessment/Plan: -BUN/Cr 159/2.4 -monitor renal function daily -renal consult Code(s): N18.9 - CHRONIC KIDNEY DISEASE, UNSPECIFIED Qualifiers: Chronic kidney disease stage: unspecified stage Qualified Code(s): N18.9 - Chronic kidney disease, unspecified (4) HTN (hypertension) Assessment/Plan: -norvasc on hold, will resume when extubated -monitor BP -Lopressor 5mg ivp prn Code(s): I10 - ESSENTIAL (PRIMARY) HYPERTENSION Qualifiers: Hypertension type: unspecified Qualified Code(s): I10 - Essential (primary ) hypertension (5) Hypothyroid Assessment/Plan: -Synthroid 100mcg IVP Code(s): E03.9 - HYPOTHYROIDISM, UNSPECIFIED Qualifiers: Hypothyroidism type: unspecified Qualified Code(s): E03.9 - Hypothyroidism , unspecified Assessment/Plan see problem list dvt ppx
[2018-07-18] MEDS ORDERED: SODIUM CHLORIDE 1,000 ML IV SCH (18:30)
--- NOTE | 2018-07-18 18:39 | CONSULT ---
Consultation: REQUESTING PROVIDER: Dr. Cabrera CONSULT REQUEST: We have been asked to medically evaluate this patient for GI bleed. HISTORY OF PRESENT ILLNESS: Patient is a 77 year old female with past medical history of failure to thrive, nonpressure chronic ulcer of left foot, anemia, HTN, Parkinson's, HLD, CKD, GI hemorrhage, COPD, MDD, GERD, Hypothyroidism, was sent from the [facility] due to Hgb of 6.2. At the ED, she was noted to have lorenzo hematemesis with significant clots and melena. Patient was then intubated for airway protection. Hgb in the ED was 5.1, BUN 159 Cr 2.4. She received 1 unit pRBC. GI was made aware and plan for possible urgent EGD tonight. REVIEW OF SYSTEMS: CONSTITUTIONAL: Absent: fever, chills, diaphoresis, generalized weakness, malaise, loss of appetite, weight change HEENT: Absent: rhinorrhea, nasal congestion, throat pain, throat swelling, difficulty swallowing, mouth swelling, ear pain, eye pain, visual changes CARDIOVASCULAR: Absent: chest pain, syncope, palpitations, irregular heart rate, lightheadedness , peripheral edema RESPIRATORY: Absent: cough, shortness of breath, dyspnea with exertion, orthopnea, wheezing, stridor, hemoptysis GASTROINTESTINAL: hematemesis, melena Absent: abdominal pain, abdominal distension, nausea, vomiting, diarrhea, constipation, hematochezia GENITOURINARY: Absent: dysuria, frequency, urgency, hesitancy, hematuria, flank pain, genital pain MUSCULOSKELETAL: Absent: myalgia, arthralgia, joint swelling, back pain, neck pain SKIN: Absent: rash, itching, pallor HEMATOLOGIC/IMMUNOLOGIC: Absent: easy bleeding, easy bruising, lymphadenopathy, frequent infections ENDOCRINE: Absent: unexplained weight gain, unexplained weight loss, heat intolerance, cold intolerance NEUROLOGIC: Absent: headache, focal weakness or paresthesias, dizziness, unsteady gait, seizure, mental status changes, bladder or bowel incontinence PSYCHIATRIC: Absent: anxiety, depression, suicidal or homicidal ideation, hallucinations. PHYSICAL EXAMINATION Vital Signs - 24 hr 07/18/18 07/18/18 07/18/18 11:00 11:15 14:09 Temperature 98.9 F 98 F Pulse Rate 64 Pulse Rate [ 79 Left Radial] Respiratory 14 16 Rate Blood Pressure 139/66 Blood Pressure 182/87 H [Right Arm] O2 Sat by Pulse 100 100 100 Oximetry (%) 07/18/18 07/18/18 07/18/18 14:23 14:48 15:00 Temperature Pulse Rate Pulse Rate [ 55 L 62 Left Radial] Respiratory 14 14 15 Rate Blood Pressure Blood Pressure 145/59 L 136/56 L [Right Arm] O2 Sat by Pulse 100 100 Oximetry (%) 07/18/18 07/18/18 07/18/18 15:30 16:02 16:41 Temperature 98 F Pulse Rate Pulse Rate [ 52 L 53 L 64 Left Radial] Respiratory 14 14 17 Rate Blood Pressure Blood Pressure 150/63 158/62 164/61 [Right Arm] O2 Sat by Pulse 100 100 Oximetry (%) 07/18/18 17:16 Temperature Pulse Rate Pulse Rate [ Left Radial] Respiratory 27 H Rate Blood Pressure Blood Pressure [Right Arm] O2 Sat by Pulse Oximetry (%) GENERAL: Patient is intubated and sedated. HEAD: Normal with no signs of trauma. EYES: PERRLA, EOMI, sclera anicteric, conjunctiva clear. EARS, NOSE, THROAT: Dry mucous membranes. LUNGS: Breath sounds equal, clear to auscultation bilaterally. HEART: Regular rate and rhythm, normal S1 and S2 without murmur, rub or gallop. ABDOMEN: Soft, nontender, not distended, normoactive bowel sounds. MARTINA: no hemorrhoids, no masses, +melena UPPER EXTREMITIES: 2+ pulses, warm, well-perfused. No peripheral edema. LOWER EXTREMITIES: 2+ pulses, warm, well-perfused.No peripheral edema. NEUROLOGICAL: sedated SKIN: Warm, dry, normal turgor, no rashes or lesions noted. Laboratory Results - last 24 hr 07/18/18 07/18/18 07/18/18 11:00 11:00 11:00 WBC 10.2 H RBC 1.80 L Hgb 5.1 L* Hct 15.8 L D MCV 88.1 MCH 28.2 MCHC 32.0 RDW 17.6 H Plt Count 575 H MPV 8.2 D Absolute Neuts (auto) 8.0 Neutrophils % 78.7 Lymphocytes % 14.4 D Monocytes % 4.0 Eosinophils % 1.7 Basophils % 1.2 Nucleated RBC % 0 PT with INR 11.20 INR 0.95 PTT (Actin FS) 32.3 Sodium 138 Potassium 4.4 Chloride 106 Carbon Dioxide 20 L Anion Gap 12 BUN 159 H* Creatinine 2.4 H Est GFR (CKD-EPI)AfAm 22.15 Est GFR (CKD-EPI)NonAf 19.11 POC Glucometer Random Glucose 132 H Calcium 9.4 Total Bilirubin 0.2 AST 16 ALT 14 Alkaline Phosphatase 67 Troponin I 0.03 Total Protein 6.5 Albumin 3.0 L Stool Occult Blood Blood Type Antibody Screen Crossmatch 07/18/18 07/18/18 07/18/18 11:00 11:00 16:09 WBC RBC Hgb Hct MCV MCH MCHC RDW Plt Count MPV Absolute Neuts (auto) Neutrophils % Lymphocytes % Monocytes % Eosinophils % Basophils % Nucleated RBC % PT with INR INR PTT (Actin FS) Sodium Potassium Chloride Carbon Dioxide Anion Gap BUN Creatinine Est GFR (CKD-EPI)AfAm Est GFR (CKD-EPI)NonAf POC Glucometer 166 Random Glucose Calcium Total Bilirubin AST ALT Alkaline Phosphatase Troponin I Total Protein Albumin Stool Occult Blood Positive Blood Type O NEGATIVE Antibody Screen Negative Crossmatch See Detail Active Medications Generic Name Dose Route Start Last Admin Trade Name Freq PRN Reason Stop Dose Admin Pantoprazole Sodium 80 mg/ 100 mls @ 10 mls/hr 07/18/18 12:00 07/18/18 12:30 Sodium Chloride IVPB 10 mls/hr Q10H LINNEA Administration 8 MG/HR Fentanyl 500 mcg/ Dextrose 100 mls @ 20 mls/hr 07/18/18 14:30 07/18/18 15:00 IVPB 100 mcg/hr TITR LINNEA 20 mls/hr Administration Protocol 100 MCG/HR Levothyroxine Sodium 100 mcg 07/19/18 07:00 Synthroid Injection - IVPUSH ACBK LINNEA Metoprolol Succinate 25 mg 07/19/18 10:00 Toprol Xl - PO DAILY LINNEA ASSESSMENT/PLAN: Patient is a 77 year old female with past medical history of failure to thrive, nonpressure chronic ulcer of left foot, anemia, HTN, Parkinson's, HLD, CKD, GI hemorrhage, COPD, MDD, GERD, Hypothyroidism, was sent from the [facility] due to Hgb of 6.2. At the ED, she was noted to have lorenzo hematemesis with significant clots and melena. #Neurology -Intubated, sedated -On Fentanyl drip for vent synchrony #Cardiovascular -Hx of HTN, HLD -Metoprolol 25mg daily -will hold home amlodipine -Cardiology (Dr. Campbell) consulted. #Pulmo -Intubated -ABG and CXR daily #GI -Hematemesis and melena likely 2/2 UGIB vs LGIB -DI (Dr. Tijerina) consulted. Recommendations appreciated. -Will keep NPO -IV fluids -s/p 1 unit pRBC, pending 2nd unit -Will monitor H/H q8h -IV Protonix drip -For potential EGD tonight once she is adequately resuscitated. #Renal -Hx of CKD -renal function baseline -will monitor closely -on Iv fluids #ID -No signs of active infection -will monitor CBC #Endo -Hx of hypothyroidism -Will continue Synthroid 100mcg IV #Heme -Hgb 5.1, 2/2 acute blood loss, received 1 unit pRBC, pending 2nd -repeat CBC after 2nd unit -monitor CBC q8h -Transfuse PRN, to keep Hgb>7 -Leukocytosis, likely reactive -will continue to monitor #FEN -IV NS @83cc/hr -Electrolytes wnl, routine bmp monitoring -NPO #Prophylaxis -DVT: SCDs, no chemical ppx in light of GI bleeding -GI: Protonix drip #Disposition -full code -ICU monitoring Dispo: We will continue to follow the patient. Thank you for this consultative opportunity. Visit type - Emergency Visit Emergency Visit: Yes ED Registration Date: 07/18/18 Care time: The patient presented to the Emergency Department on the above date and was hospitalized for further evaluation of their emergent condition. - New Patient This patient is new to me today: Yes Date on this admission: 07/18/18 - Critical Care Critical Care patient: Yes Total Critical Care Time (in minutes): 36 Critical Care Statement: The care of this patient involved high complexity decision making to prevent further life threatening deterioration of the patient 's condition and/or to evaluate & treat vital organ system(s) failure or risk of failure.
[2018-07-18] MEDS ORDERED: fentaNYL CITRATE 250 MCG/5 ML VIAL ONE (21:12)
[2018-07-19] MEDS ORDERED: MIDAZOLAM 100 MG/100 ML MG IVPB ONE
[2018-07-19] MEDS: FENTANYL INJECTION 500 MCG in DEXTROSE 5%-WATER - 90 ML IVPB SCH ×3 (00:12→18:39)
[2018-07-19] MEDS: MIDAZOLAM 100 MG in SODIUM CHLORIDE 100 ML IVPB SCH (00:12)
[2018-07-19 01:54] LABS: HEMOGLOBIN 7.5 GM/dL (10.7-15.3); MCH 28.6 pg (25.7-33.7); MCHC 32.6 g/dl (32.0-36.0); MEAN CELL VOLUME 87.7 fl (80-96); MEAN PLT VOLUME 8.4 fl (7.5-11.1); PLATELET COUNT 425 K/MM3 (134-434); RBC 2.62 M/mm3 (3.60-5.2); RDW 15.3 % (11.6-15.6); WHITE BLOOD COUNT 14.1 K/mm3 (4.0-10.0)
[2018-07-19] MEDS ORDERED: PT OWN MED DRAWER 7, Y5N ONE ×3 (05:59→16:51)
[2018-07-19] MEDS: LEVOTHYROXINE SODIUM 100 MCG VIAL IVPUSH SCH (06:24)
[2018-07-19 06:27] LABS: BASO % 0.4 % (0-2.0); HEMATOCRIT 24.2 % (32.4-45.2); HEMOGLOBIN 8.2 GM/dL (10.7-15.3); LYMPH % 7.1 % (8-40); MCH 29.4 pg (25.7-33.7); MEAN CELL VOLUME 86.4 fl (80-96); MEAN PLT VOLUME 8.1 fl (7.5-11.1); MONO % 4.9 % (3.8-10.2); NEUT % 86.6 % (42.8-82.8); PLATELET COUNT 445 K/MM3 (134-434); RDW 15.3 % (11.6-15.6); WHITE BLOOD COUNT 13.3 K/mm3 (4.0-10.0)
[2018-07-19 06:56] LABS: ARTERIAL BLOOD GAS BASE EXCESS -7.4 meq/l (-2-2); ARTERIAL BLOOD GAS PCO2 36.5 mmHg (35-45); ARTERIAL BLOOD GAS PO2 461 mmHg (80-105); ARTERIAL BLOOD GAS pH 7.31 (7.35-7.45)
[2018-07-19 07:00] LABS: ALLENS TEST POSITIVE
[2018-07-19] MEDS ORDERED: LEVOTHYROXINE NA 100 MCG TABLET (FP) PO SCH (07:00)
[2018-07-19 07:12] LABS: ALBUMIN 2.8 g/dl (3.4-5.0); BILIRUBIN,TOTAL 0.3 mg/dL (0.2-1); CALCIUM 8.6 mg/dL (8.5-10.1); CREATININE 2.3 mg/dL (0.55-1.3); MAGNESIUM 2.7 mg/dL (1.8-2.4); N-TERMINAL BNP 15488.2 pg/ml (5-450); PHOSPHOROUS 3.9 mg/dL (2.5-4.9); TOT PROT 5.8 g/dl (6.4-8.2)
[2018-07-19] MEDS ORDERED: fentaNYL CITRATE 250 MCG/5 ML VIAL ONE ×2 (07:35→16:50)
[2018-07-19] MEDS: DEXTROSE 5%-NORMAL SALINE 1,000 ML IV SCH (08:30)
[2018-07-19] MEDS ORDERED: TAMSULOSIN HCL 0.4 MG CAP PO SCH (08:30)
[2018-07-19] MEDS: PANTOPRAZOLE SODIUM 80 MG in SODIUM CHLORIDE 100 ML IVPB SCH ×3 (09:06→21:28)
--- NOTE | 2018-07-19 09:21 | PN ---
Physical Exam: SUBJECTIVE: Patient seen and examined at bedside this morning. No acute events overnight. Patient intubated and sedated. No gross bleeding noted overnight. On Versed and Fentanyl for sedation Vent: 14/400/60/5 OBJECTIVE: Vital Signs Temperature 98.2 F 07/19/18 02:00 Pulse Rate 48 L 07/19/18 08:00 Respiratory Rate 17 07/19/18 09:00 Blood Pressure 115/58 L 07/19/18 08:00 O2 Sat by Pulse Oximetry (%) 100 07/19/18 09:00 GENERAL: Patient is intubated and sedated. HEAD: Normal with no signs of trauma. EYES: PERRLA, EOMI, sclera anicteric, conjunctiva clear. EARS, NOSE, THROAT: Dry mucous membranes. LUNGS: Breath sounds equal, clear to auscultation bilaterally. HEART: Regular rate and rhythm, normal S1 and S2 without murmur, rub or gallop. ABDOMEN: Soft, nontender, not distended, normoactive bowel sounds. UPPER EXTREMITIES: 2+ pulses, warm, well-perfused. No peripheral edema. LOWER EXTREMITIES: 2+ pulses, warm, well-perfused.No peripheral edema. NEUROLOGICAL: sedated SKIN: Warm, dry, normal turgor, no rashes or lesions noted. Laboratory Results - last 24 hr 07/18/18 07/18/18 07/18/18 11:00 11:00 11:00 WBC 10.2 H RBC 1.80 L Hgb 5.1 L* Hct 15.8 L D MCV 88.1 MCH 28.2 MCHC 32.0 RDW 17.6 H Plt Count 575 H MPV 8.2 D Absolute Neuts (auto) 8.0 Neutrophils % 78.7 Lymphocytes % 14.4 D Monocytes % 4.0 Eosinophils % 1.7 Basophils % 1.2 Nucleated RBC % 0 PT with INR 11.20 INR 0.95 PTT (Actin FS) 32.3 Puncture Site ABG pH ABG pCO2 at Pt Temp ABG pO2 at Pt Temp ABG HCO3 ABG O2 Sat (Measured) ABG O2 Content ABG Base Excess Sal Test O2 Delivery Device Oxygen Flow Rate Vent Rate PEEP Pressure Support Vent Sodium 138 Potassium 4.4 Chloride 106 Carbon Dioxide 20 L Anion Gap 12 BUN 159 H* Creatinine 2.4 H Est GFR (CKD-EPI)AfAm 22.15 Est GFR (CKD-EPI)NonAf 19.11 POC Glucometer Random Glucose 132 H Hemoglobin A1c % Calcium 9.4 Phosphorus Magnesium Total Bilirubin 0.2 AST 16 ALT 14 Alkaline Phosphatase 67 Troponin I 0.03 B-Natriuretic Peptide Total Protein 6.5 Albumin 3.0 L Triglycerides Cholesterol Total LDL Cholesterol HDL Cholesterol TSH Stool Occult Blood Blood Type Antibody Screen Crossmatch 07/18/18 07/18/18 07/18/18 11:00 11:00 16:09 WBC RBC Hgb Hct MCV MCH MCHC RDW Plt Count MPV Absolute Neuts (auto) Neutrophils % Lymphocytes % Monocytes % Eosinophils % Basophils % Nucleated RBC % PT with INR INR PTT (Actin FS) Puncture Site ABG pH ABG pCO2 at Pt Temp ABG pO2 at Pt Temp ABG HCO3 ABG O2 Sat (Measured) ABG O2 Content ABG Base Excess Sal Test O2 Delivery Device Oxygen Flow Rate Vent Rate PEEP Pressure Support Vent Sodium Potassium Chloride Carbon Dioxide Anion Gap BUN Creatinine Est GFR (CKD-EPI)AfAm Est GFR (CKD-EPI)NonAf POC Glucometer 166 Random Glucose Hemoglobin A1c % Calcium Phosphorus Magnesium Total Bilirubin AST ALT Alkaline Phosphatase Troponin I B-Natriuretic Peptide Total Protein Albumin Triglycerides Cholesterol Total LDL Cholesterol HDL Cholesterol TSH Stool Occult Blood Positive Blood Type O NEGATIVE Antibody Screen Negative Crossmatch See Detail 07/18/18 07/18/18 07/19/18 18:00 23:02 01:00 WBC 14.1 H RBC 2.62 L Hgb 7.5 L Hct 23.0 L D MCV 87.7 MCH 28.6 MCHC 32.6 RDW 15.3 D Plt Count 425 D MPV 8.4 Absolute Neuts (auto) Neutrophils % Lymphocytes % Monocytes % Eosinophils % Basophils % Nucleated RBC % PT with INR INR PTT (Actin FS) Puncture Site ABG pH ABG pCO2 at Pt Temp ABG pO2 at Pt Temp ABG HCO3 ABG O2 Sat (Measured) ABG O2 Content ABG Base Excess Sal Test O2 Delivery Device Oxygen Flow Rate Vent Rate PEEP Pressure Support Vent Sodium Potassium Chloride Carbon Dioxide Anion Gap BUN Creatinine Est GFR (CKD-EPI)AfAm Est GFR (CKD-EPI)NonAf POC Glucometer 176 121 Random Glucose Hemoglobin A1c % Calcium Phosphorus Magnesium Total Bilirubin AST ALT Alkaline Phosphatase Troponin I B-Natriuretic Peptide Total Protein Albumin Triglycerides Cholesterol Total LDL Cholesterol HDL Cholesterol TSH Stool Occult Blood Blood Type Antibody Screen Crossmatch 07/19/18 07/19/18 07/19/18 05:30 05:30 05:30 WBC 13.3 H RBC 2.80 L Hgb 8.2 L Hct 24.2 L MCV 86.4 MCH 29.4 MCHC 34.0 RDW 15.3 Plt Count 445 H MPV 8.1 Absolute Neuts (auto) 11.5 H Neutrophils % 86.6 H Lymphocytes % 7.1 L D Monocytes % 4.9 Eosinophils % 1.0 Basophils % 0.4 Nucleated RBC % 0 PT with INR INR PTT (Actin FS) Puncture Site ABG pH ABG pCO2 at Pt Temp ABG pO2 at Pt Temp ABG HCO3 ABG O2 Sat (Measured) ABG O2 Content ABG Base Excess Sal Test O2 Delivery Device Oxygen Flow Rate Vent Rate PEEP Pressure Support Vent Sodium 141 Potassium 4.0 Chloride 113 H Carbon Dioxide 17 L Anion Gap 11 BUN 155 H* Creatinine 2.3 H Est GFR (CKD-EPI)AfAm 23.31 Est GFR (CKD-EPI)NonAf 20.12 POC Glucometer Random Glucose 81 Hemoglobin A1c % < 2.5 L Calcium 8.6 Phosphorus 3.9 Magnesium 2.7 H Total Bilirubin 0.3 AST 19 ALT 12 L Alkaline Phosphatase 56 Troponin I 0.04 B-Natriuretic Peptide 99547.2 H Total Protein 5.8 L Albumin 2.8 L Triglycerides 187 H Cholesterol 130 Total LDL Cholesterol 64 HDL Cholesterol 35 L TSH 13.40 H Stool Occult Blood Blood Type Antibody Screen Crossmatch 07/19/18 07/19/18 05:37 06:30 WBC RBC Hgb Hct MCV MCH MCHC RDW Plt Count MPV Absolute Neuts (auto) Neutrophils % Lymphocytes % Monocytes % Eosinophils % Basophils % Nucleated RBC % PT with INR INR PTT (Actin FS) Puncture Site Right radial ABG pH 7.31 L ABG pCO2 at Pt Temp 36.5 ABG pO2 at Pt Temp 461 H ABG HCO3 17.7 L ABG O2 Sat (Measured) 100.0 H ABG O2 Content 12.6 L ABG Base Excess -7.4 L Sal Test Positive O2 Delivery Device Vent Oxygen Flow Rate 100% Vent Rate 14 PEEP 5.0 Pressure Support Vent 400 Sodium Potassium Chloride Carbon Dioxide Anion Gap BUN Creatinine Est GFR (CKD-EPI)AfAm Est GFR (CKD-EPI)NonAf POC Glucometer 75 Random Glucose Hemoglobin A1c % Calcium Phosphorus Magnesium Total Bilirubin AST ALT Alkaline Phosphatase Troponin I B-Natriuretic Peptide Total Protein Albumin Triglycerides Cholesterol Total LDL Cholesterol HDL Cholesterol TSH Stool Occult Blood Blood Type Antibody Screen Crossmatch Active Medications Generic Name Dose Route Start Last Admin Trade Name Armani PRN Reason Stop Dose Admin Pantoprazole Sodium 80 mg/ 100 mls @ 10 mls/hr 07/18/18 12:00 07/19/18 09:06 Sodium Chloride IVPB 10 mls/hr Q10H LINNEA Administration 8 MG/HR Fentanyl 500 mcg/ Dextrose 100 mls @ 20 mls/hr 07/18/18 14:30 07/19/18 08:50 IVPB 50 mcg/hr TITR LINNEA 10 mls/hr Titration Protocol 100 MCG/HR Midazolam HCl 100 mg/ Sodium 100 mls @ 1 mls/hr 07/18/18 22:15 07/19/18 00:12 Chloride IVPB 1 mg/hr TITR LINNEA 1 mls/hr Administration Protocol 1 MG/HR Dextrose/Sodium Chloride 1,000 mls @ 83 mls/hr 07/19/18 08:45 07/19/18 08:30 D5-Ns - IV 83 mls/hr ASDIR LINNEA Administration Levothyroxine Sodium 100 mcg 07/19/18 07:00 07/19/18 06:24 Synthroid Injection - IVPUSH 100 mcg ACBK LINNEA Administration ASSESSMENT/PLAN: Patient is a 77 year old female with past medical history of failure to thrive, nonpressure chronic ulcer of left foot, anemia, HTN, Parkinson's, HLD, CKD, GI hemorrhage, COPD, MDD, GERD, Hypothyroidism, was sent from the [facility] due to Hgb of 6.2. At the ED, she was noted to have lorenzo hematemesis with significant clots and melena. #Neurology -Intubated, sedated -On Fentanyl and versed for vent synchrony -Hx of Parkinson's and dementia #Cardiovascular -Hx of HTN, HLD -Metoprolol 25mg daily -will hold home amlodipine -Cardiology (Dr. Campbell) consulted for pre-op clearance. -At this time, there is no cardiac contraindication to the planned endoscopy and would recommend to proceed without delay -Transfuse pRBC as needed to maintain Hgb>8 in setting of presumed CAD #Pulmo -Intubated -Vent: 14/400/60/5 -ABG and CXR daily #GI -Hematemesis and melena likely 2/2 UGIB vs LGIB -DI (Dr. Tijerina) consulted. Recommendations appreciated. -Will keep NPO -IV fluids -s/p 2 units pRBC, Hgb 8.2 this morning -Will monitor H/H q6 -IV Protonix drip -Plan for EGD #Renal -Hx of CKD -renal function baseline -Elevated BUN likely in the setting of GI bleeding -will monitor closely -on Iv fluids -Nephrology (Dr. John) consulted. Recommendations appreciated. #ID -No signs of active infection -will monitor CBC #Endo -Hx of hypothyroidism -Continue Synthroid 100mcg IV -TSH elevated at 13.4 -Free T3, T4 ordered #Heme -Hgb 8.2 s/p 2 units pRBC, 2/2 acute blood loss -monitor CBC q6h -Transfuse PRN, to keep Hgb>8 -Leukocytosis, likely reactive, trending down -will continue to monitor #FEN -IV D5-NS @83cc/hr -Electrolytes wnl, routine bmp monitoring -NPO #Prophylaxis -DVT: SCDs, no chemical ppx in light of GI bleeding -GI: Protonix drip #Disposition -full code -ICU monitoring Patient is known to have refused EGD in the past. Patient is known to be estranged from her daughter Thao, per Panchito Cisneros. Attempted to call the number in the chart, which was the same number on file with Panchito Cisneros, but number was nonfunctional. Attempted to call the friend on file, Maegan, and left a message. Primary team made aware. Would follow up on discussion regarding goals of care. Visit type - Emergency Visit Emergency Visit: Yes ED Registration Date: 07/18/18 Care time: The patient presented to the Emergency Department on the above date and was hospitalized for further evaluation of their emergent condition. - New Patient This patient is new to me today: No - Critical Care Critical Care patient: Yes Total Critical Care Time (in minutes): 36 Critical Care Statement: The care of this patient involved high complexity decision making to prevent further life threatening deterioration of the patient 's condition and/or to evaluate & treat vital organ system(s) failure or risk of failure.
--- NOTE | 2018-07-19 09:30 | CONSULT ---
Consult Consult Specialty:: Nephrology Reason for Consultation:: CKD - History of Present Illness Chief Complaint: low hg History of Present Illness: Pt is a 77 year old female with pmhx of CKD, HTN, COPD, anemia, GI bleed, HLD, and Parkinsons who was sent in for low hg. She had a hg of 6.2 on ami 22nd. She has had black stools and hematemesis. She was intubated in the ER. She has had multiple hospitalization for GI bleed however had refused endoscopy. I was called to evaluate her for renal failure. She does have history of CKD. She missed her office appointment last week. 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, Parkinson's Cardio/Vascular: Yes: HTN, Hyperlipdemia Gastrointestinal: Yes: GI Bleed Renal/: Yes: Renal Inusuff Psych: Yes: Depression Rheumatology: Yes: Other (arthritis) Endocrine: Yes: Hypothyroidism - Past Surgical History Past Surgical History: Yes: Appendectomy, Tonsillectomy - Alcohol/Substance Use Hx Alcohol Use: No History of Substance Use: reports: None - Smoking History Smoking history: Former smoker Have you smoked in the past 12 months: No Aproximately how many cigarettes per day: 5 If you are a former smoker, when did you quit?: 5 years ago - Social History Usual Living Arrangement: Jail ADL: Support Services History of Recent Travel: No Home Medications - Allergies Allergies/Adverse Reactions: Allergies Allergy/AdvReac Type Severity Reaction Status Date / Time No Known Allergies Allergy Verified 05/27/18 17:34 - Home Medications Home Medications: Ambulatory Orders Amlodipine Besylate [Norvasc -] 10 mg PO DAILY 05/27/18 Escitalopram Oxalate [Lexapro -] 20 mg PO DAILY 05/27/18 Latanoprost 0.005% Eye Drops [Xalatan 0.005% Eye Drops -] 1 drop OP HS 05/27/18 Levothyroxine [Synthroid -] 100 mcg PO DAILY 05/27/18 Polyethylene Glycol 3350 [Miralax 119 gm Btl -] 17 gm PO DAILY 05/27/18 Ferrous Sulfate [Feosol] 325 mg PO BID ud 06/04/18 Pantoprazole Sodium [Protonix -] 40 mg PO BID tablet.ec 06/04/18 Tamsulosin HCl [Flomax] 0.4 mg PO DAILY #30 tab 06/27/18 Metoprolol Succinate [Toprol Xl] 25 mg PO DAILY 07/18/18 Family Disease History - Family Disease History Family Disease History: Other: Father ( 70's: pancreatic Ca), Mother (: 70's: [place]), Brother (None), Sister (None), Daughter (3 daughters, 2 , ? causes) Review of Systems Unable to obtain ROS, reason: pt intiuabated Findings/Remarks: pt intubated in ICU, unable to answer questions Physical Exam Vital Signs: Vital Signs Temperature 98.2 F 07/19/18 02:00 Pulse Rate 48 L 07/19/18 08:00 Respiratory Rate 17 07/19/18 09:00 Blood Pressure 115/58 L 07/19/18 08:00 O2 Sat by Pulse Oximetry (%) 100 07/19/18 09:00 Constitutional: Yes: Calm Eyes: Yes: Conjunctiva Clear HENT: Yes: Atraumatic Cardiovascular: Yes: S2 Respiratory: Yes: Intubated, Mechanically Ventilated Gastrointestinal: Yes: Soft Renal/: Yes: Bernard Present Musculoskeletal: Yes: WNL Edema: No Neurological: Yes: Lethargy Labs: CBC, BMP 07/19/18 05:30 07/19/18 05:30 Imaging - Results Chest X-ray: Report Reviewed Problem List - Problems (1) GIB (gastrointestinal bleeding) Code(s): K92.2 - GASTROINTESTINAL HEMORRHAGE, UNSPECIFIED (2) Anemia Code(s): D64.9 - ANEMIA, UNSPECIFIED Qualifiers: Anemia type: unspecified type Qualified Code(s): D64.9 - Anemia, unspecified (3) CKD (chronic kidney disease) Code(s): N18.9 - CHRONIC KIDNEY DISEASE, UNSPECIFIED Qualifiers: Chronic kidney disease stage: unspecified stage Qualified Code(s): N18.9 - Chronic kidney disease, unspecified (4) HTN (hypertension) Code(s): I10 - ESSENTIAL (PRIMARY) HYPERTENSION Qualifiers: Hypertension type: unspecified Qualified Code(s): I10 - Essential (primary ) hypertension Assessment/Plan Current Medications Generic Name Dose Route Start Last Admin Trade Name Freq PRN Reason Stop Dose Admin Pantoprazole Sodium 80 mg/ 100 mls @ 10 mls/hr 07/18/18 12:00 07/19/18 09:06 Sodium Chloride IVPB 10 mls/hr Q10H LINNEA Administration 8 MG/HR Fentanyl 500 mcg/ Dextrose 100 mls @ 20 mls/hr 07/18/18 14:30 07/19/18 08:50 IVPB 50 mcg/hr TITR LINNEA 10 mls/hr Titration Protocol 100 MCG/HR Midazolam HCl 100 mg/ Sodium 100 mls @ 1 mls/hr 07/18/18 22:15 07/19/18 00:12 Chloride IVPB 1 mg/hr TITR LINNEA 1 mls/hr Administration Protocol 1 MG/HR Dextrose/Sodium Chloride 1,000 mls @ 83 mls/hr 07/19/18 08:45 07/19/18 08:30 D5-Ns - IV 83 mls/hr ASDIR LINNEA Administration Levothyroxine Sodium 100 mcg 07/19/18 07:00 07/19/18 06:24 Synthroid Injection - IVPUSH 100 mcg ACBK LINNEA Administration Impression 1. CKD 2. right renal cyst 3. toe ulcer 4. hypothryoid 5. dementia 6. parkinsons 7. HTN 8. gout 9. uremia 10. anemia 11. GI bleed 12. LUCERO 13. resp failure Plan - hg improved with prbc - gi bleed will contribute to elevated BUN - GI eval - monitor renal function - monitor urine output - vent support - discussed with ICU team Dr John
[2018-07-19] MEDS ORDERED: ESCITALOPRAM OXALATE 20 MG TABLET (FP) PO SCH (10:00)
[2018-07-19] MEDS ORDERED: POLYETHYLENE GLYCOL 3350 119 GM BTL PO SCH (10:00)
[2018-07-19] MEDS ORDERED: metoPROLOL SUCCINATE 25 MG TAB.SR.24H (FP) PO SCH (10:00)
[2018-07-19] MEDS ORDERED: amLODIPine BESYLATE 10 MG TABLET (FP) PO SCH (10:00)
--- NOTE | 2018-07-19 10:51 | CON.CARD ---
Consult Consult Specialty:: Cardiology Referred by:: Dr. Cabrera Reason for Consultation:: Preop cardiac risk assessment prior to EGD - History of Present Illness Chief Complaint: GI bleed History of Present Illness: 77 year old woman with pmh dementia, Parkinson's disease, hypertension, hyperlipidemia, chronic kidney disease, GI bleed, hypothyroidism, prior admissions for recurrent GI bleed and severe anemia with demand ischemia in that setting now again admitted with severe anemia, melena, hematemesis, intubated for airway protection. Pt planned for EGD. pt seen and examined today, intubated, sedated, in nad. No reported chest pain or sob prior to admission. 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 Cardio/Vascular: Yes: HTN, Hyperlipdemia Gastrointestinal: Yes: GI Bleed Renal/: Yes: Renal Inusuff Psych: Yes: Depression Rheumatology: Yes: Other (arthritis) Endocrine: Yes: Hypothyroidism - Past Surgical History Past Surgical History: Yes: Appendectomy, Tonsillectomy - Alcohol/Substance Use Hx Alcohol Use: No History of Substance Use: reports: None - Smoking History Smoking history: Former smoker Have you smoked in the past 12 months: No Aproximately how many cigarettes per day: 5 If you are a former smoker, when did you quit?: 5 years ago - Social History Usual Living Arrangement: Assisted ADL: Support Services History of Recent Travel: No Home Medications - Allergies Allergies/Adverse Reactions: Allergies Allergy/AdvReac Type Severity Reaction Status Date / Time No Known Allergies Allergy Verified 05/27/18 17:34 - Home Medications Home Medications: Ambulatory Orders Amlodipine Besylate [Norvasc -] 10 mg PO DAILY 05/27/18 Escitalopram Oxalate [Lexapro -] 20 mg PO DAILY 05/27/18 Latanoprost 0.005% Eye Drops [Xalatan 0.005% Eye Drops -] 1 drop OP HS 05/27/18 Levothyroxine [Synthroid -] 100 mcg PO DAILY 05/27/18 Polyethylene Glycol 3350 [Miralax 119 gm Btl -] 17 gm PO DAILY 05/27/18 Ferrous Sulfate [Feosol] 325 mg PO BID ud 06/04/18 Pantoprazole Sodium [Protonix -] 40 mg PO BID tablet.ec 06/04/18 Tamsulosin HCl [Flomax] 0.4 mg PO DAILY #30 tab 06/27/18 Metoprolol Succinate [Toprol Xl] 25 mg PO DAILY 07/18/18 Family Disease History - Family Disease History Family Disease History: Other: Father ( 70's: pancreatic Ca), Mother (: 70's: [place]), Brother (None), Sister (None), Daughter (3 daughters, 2 , ? causes) Review of Systems - Review of Systems Constitutional: reports: Weakness. denies: No Symptoms, Chills, Diaphoresis, Fever, Lethargy, Loss of Appetite, Malaise, Night Sweats, Unintentional Wgt. Loss, Other Eyes: denies: No Symptoms, Blind Spots, Blurred Vision, Double Vision, Eye Pain , Floaters, Photophobia, Recent Change in Vision, Other HENT: denies: No Symptoms, Difficult Swallowing, Ear Discharge, Ear Pain, Epistaxis, Gingival Bleeding, Hearing Loss, Mouth Swelling, Nasal Congestion, Ocular Prosthesis, Throat Pain, Toothache, Ringing in Ears, Other Neck: denies: No Symptoms, Decreased ROM, Lumps, Pain on Movement, Stiffness, Swollen Glands, Tenderness, Other Cardiovascular: denies: No Symptoms, Chest Pain, Edema, Palpitations, Shortness of Breath, Other Respiratory: denies: No Symptoms, Cough, Exercise Intolerance, Hemoptysis, Orthopnea, PND, Snoring, SOB, SOB on Exertion, Wheezing, Other Gastrointestinal: reports: Melena, Rectal Bleeding, Vomiting Blood. denies: No Symptoms, Abdominal Pain, Bloating, Constipation, Diarrhea, Dysphagia, Indigestion, Nausea, Vomiting, Other Genitourinary: denies: No Symptoms, Burning, Discharge, Dysuria, Flank Pain, Frequency, Hematuria, Incontinence, Lesions, Menses, Pain, Testicular Mass, Testicular Pain, Testicular Swelling, Urgency, Vaginal Bleeding, Other Breasts: denies: No Symptoms Reported, See HPI, Breast Implants, Discharge from Nipple, Lumps, Pain, Skin Changes, Other Musculoskeletal: denies: No Symptoms, Back Pain, Crepitus, Decreased ROM, Extremity Pain, Joint Pain, Joint Swelling, Muscle Pain, Muscle Cramps, Muscle Weakness, Other Integumentary: denies: No Symptoms, Blister, Bruising, Change in Color, Eczema, Erythema, Incision, Lesions, Lump, Pallor, Pruritis, Rash, Wound, Other Neurological: denies: No Symptoms, Change in LOC, Change in Speech, Confusion, Dizziness, Headache, Incoordination, Numbness, Parasthesia, Pre-Existing Deficit , Seizure, Syncope, Tremors, Unsteady Gait, Weakness, Other Endocrine: denies: No Symptoms, Excessive Sweating, Flushing, Increased Hunger, Increased Thirst, Intolerance to Cold, Intolerance to Heat, Unexplained Weight Gain, Unexplained Weight Loss, Other Hematology/Lymphatic: denies: No Symptoms, Easily Bruised, Excessive Bleeding, Swollen Glands, Other Psychiatric: denies: No Symptoms, Altered Sleep Pattern, Anxiety, Depression, Hallucinations, Panic, Paranoia, Suicidal, Other Vital Signs: Vital Signs Temperature 98.0 F 07/19/18 10:23 Pulse Rate 50 L 07/19/18 10:18 Respiratory Rate 16 07/19/18 10:18 Blood Pressure 112/44 L 07/19/18 10:18 O2 Sat by Pulse Oximetry (%) 100 07/19/18 09:00 Constitutional: Yes: No Distress, Calm Eyes: Yes: Conjunctiva Clear HENT: Yes: Atraumatic, Normocephalic Respiratory: Yes: Regular, Intubated, Mechanically Ventilated. No: Rales, Rhonchi, SOB, Wheezes Gastrointestinal: Yes: Normal Bowel Sounds Cardiovascular: Yes: Regular Rate and Rhythm. No: Bradycardia, Tachycardia, Pulse Irregular, Gallop, Rub, Varicosities JVD: No Carotid Bruit: No PMI: Non-Displaced Heart Sounds: Yes: S1, S2. No: Split S2, S3, S4, Clicks, Gallop, Rub, Bruit Murmur: Yes: Systolic Murmur. No: Diastolic Murmur Edema: No Peripheral Pulses WNL: Yes Peripheral Pulses: 2+ Left Doralis Pedis, 2+ Right Dorsalis Pedis Neurological: No: Alert, Oriented Psychiatric: No: Alert, Oriented - Other Data Labs, Other Data: CBC, BMP 07/19/18 05:30 07/19/18 05:30 INR, PTT INR 0.95 (0.83-1.09) 07/18/18 11:00 Troponin, BNP 07/18/18 07/19/18 11:00 05:30 Troponin I 0.03 0.04 B-Natriuretic Peptide 06864.2 H Troponin, BNP 07/18/18 07/19/18 11:00 05:30 Troponin I 0.03 0.04 B-Natriuretic Peptide 85050.2 H nsr 69bpm, lvh with repolarization abnl Echo: Report Reviewed Imaging - Results Chest X-ray: Report Reviewed, Image Reviewed EKG: Report Reviewed, Image Reviewed Other: Report Reviewed, Image Reviewed (tele-nsr, sb 40-50s, apcs) Assessment/Plan 77 year old woman with pmh dementia, Parkinson's disease, hypertension, hyperlipidemia, chronic kidney disease, GI bleed, hypothyroidism, prior admissions for recurrent GI bleed and severe anemia with demand ischemia in that setting now again admitted with severe anemia, melena, hematemesis, intubated for airway protection. Pt planned for EGD. No reported chest pain or sob prior to admission. ECHO 06/24/18 showed apical inferior hypokinesis with preserved LVEF, severe MR, mod TR Preop cardiovascular exam -pt admitted for recurrent GI bleed with severe anemia -currently intubated, sedated -prior admissions with elevated cardiac enzymes in the setting of severe anemia likely secondary to demand ischemia -at this time there is no cardiac contraindication to the planned endoscopy and would recommend to proceed without delay for additional cardiac work up -cont PRBCs as needed to maintain Hgb >8 in setting of presumed underlying CAD Please call with any additional questions.
--- NOTE | 2018-07-19 11:43 | PN ---
Progress Note, Physician - Current Medication List Current Medications: Active Medications Pantoprazole Sodium 80 mg/ (Sodium Chloride) 100 mls @ 10 mls/hr IVPB Q10H LINNEA Last Admin: 07/19/18 09:06 Dose: 10 mls/hr Fentanyl 500 mcg/ Dextrose 100 mls @ 20 mls/hr IVPB TITR LINNEA; Protocol Last Titration: 07/19/18 08:50 Dose: 50 mcg/hr, 10 mls/hr Midazolam HCl 100 mg/ Sodium (Chloride) 100 mls @ 1 mls/hr IVPB TITR LINNEA; Protocol Last Admin: 07/19/18 00:12 Dose: 1 mg/hr, 1 mls/hr Dextrose/Sodium Chloride (D5-Ns -) 1,000 mls @ 83 mls/hr IV ASDIR LINNEA Last Admin: 07/19/18 08:30 Dose: 83 mls/hr Levothyroxine Sodium (Synthroid Injection -) 100 mcg IVPUSH ACBK LINNEA Last Admin: 07/19/18 06:24 Dose: 100 mcg - Objective Vital Signs: Vital Signs Temperature 98.0 F 07/19/18 10:23 Pulse Rate 50 L 07/19/18 10:18 Respiratory Rate 16 07/19/18 10:18 Blood Pressure 112/44 L 07/19/18 10:18 O2 Sat by Pulse Oximetry (%) 100 07/19/18 09:00 Cardiovascular: Yes: S1, S2 Respiratory: Yes: Mechanically Ventilated Gastrointestinal: Yes: Normal Bowel Sounds, Soft Neurological: Yes: Lethargy Labs: CBC, BMP 07/19/18 05:30 07/19/18 05:30 INR, PTT INR 0.95 (0.83-1.09) 07/18/18 11:00 Assessment/Plan - Problems (1) GIB (gastrointestinal bleeding) Assessment/Plan: -GI on board -monitor Hg closely and transfuse for Hg >9.0 -S/p PRBC transfused -CBC q6h -NPO -IV hydration -Pantoprazole drip -cardiology clearance for EGD Code(s): K92.2 - GASTROINTESTINAL HEMORRHAGE, UNSPECIFIED (2) Anemia Assessment/Plan: -2/2 to GI bleed -GI on board -Hg 5.1 -monitor Hg closely and transfuse for Hg >9.0 -1U PRBC transfused, pending 2nd unit -CBC q6h -NPO -IV hydration -Pantoprazole drip Code(s): D64.9 - ANEMIA, UNSPECIFIED Qualifiers: Anemia type: unspecified type Qualified Code(s): D64.9 - Anemia, unspecified (3) CKD (chronic kidney disease) Assessment/Plan: -BUN/Cr 159/2.4 -monitor renal function daily -renal consult Code(s): N18.9 - CHRONIC KIDNEY DISEASE, UNSPECIFIED Qualifiers: Chronic kidney disease stage: unspecified stage Qualified Code(s): N18.9 - Chronic kidney disease, unspecified (4) HTN (hypertension) Assessment/Plan: -norvasc on hold, will resume when extubated -monitor BP -Lopressor 5mg ivp prn Code(s): I10 - ESSENTIAL (PRIMARY) HYPERTENSION Qualifiers: Hypertension type: unspecified Qualified Code(s): I10 - Essential (primary ) hypertension (5) Hypothyroid Assessment/Plan: -Synthroid 100mcg IVP Code(s): E03.9 - HYPOTHYROIDISM, UNSPECIFIED Qualifiers: Hypothyroidism type: unspecified Qualified Code(s): E03.9 - Hypothyroidism , unspecified (6) Respiratory failure Assessment/Plan: -Intubated and sedated
--- NOTE | 2018-07-19 12:12 | PN ---
Teaching Attending Note Name of Resident: Pia Greene ATTENDING PHYSICIAN STATEMENT I saw and evaluated the patient. I reviewed the resident's note and discussed the case with the resident. I agree with the resident's findings and plan as documented. SUBJECTIVE: Pt seen and examined in the ICU. Remains intubated, sedated. Received 2 units PRBC so far. OBJECTIVE: Vital Signs Period Temp Pulse Resp BP Sys/Rolon Pulse Ox Last 24 Hr 98 F-98.4 F 45-79 14-27 97-182/32-87 100-100 Intake & Output 07/16/18 07/17/18 07/18/18 07/19/18 23:59 23:59 23:59 23:59 Intake Total 580 1051 Output Total 200 650 Balance 380 401 Weight 47.582 kg 50.167 kg Gen: intubated, sedated Heart: RRR Lung: decreased breath sounds at the bases Abd: soft, nontender Ext: no edema CBC, BMP 07/19/18 05:30 07/19/18 05:30 Active Medications Pantoprazole Sodium 80 mg/ (Sodium Chloride) 100 mls @ 10 mls/hr IVPB Q10H LINNEA Last Admin: 07/19/18 09:06 Dose: 10 mls/hr Fentanyl 500 mcg/ Dextrose 100 mls @ 20 mls/hr IVPB TITR LINNEA; Protocol Last Titration: 07/19/18 08:50 Dose: 50 mcg/hr, 10 mls/hr Midazolam HCl 100 mg/ Sodium (Chloride) 100 mls @ 1 mls/hr IVPB TITR [facility]NEA; Protocol Last Admin: 07/19/18 00:12 Dose: 1 mg/hr, 1 mls/hr Dextrose/Sodium Chloride (D5-Ns -) 1,000 mls @ 83 mls/hr IV ASDIR [facility] Last Admin: 07/19/18 08:30 Dose: 83 mls/hr Levothyroxine Sodium (Synthroid Injection -) 100 mcg IVPUSH ACBK [facility] Last Admin: 07/19/18 06:24 Dose: 100 mcg ASSESSMENT AND PLAN: Recurrent GI Bleed Acute Blood Loss Anemia Acute Respiratory Failure HTN DM CKD Hypothyroidism Parkinsons Dementia - monitor H/H - transfuse as needed - GI f/u for endoscopy - protonix - NPO - IVF - monitor urine output, creatinine - continue mechanical ventilation until bleeding controlled - DVT prophylaxis - continue ICU monitoring critical care time spent in reviewing chart, evaluating patient and formulating plan 35 min
[2018-07-19 13:11] LABS: HEMOGLOBIN 7.3 GM/dL (10.7-15.3); MCHC 33.1 g/dl (32.0-36.0); MEAN CELL VOLUME 87.6 fl (80-96); MEAN PLT VOLUME 7.9 fl (7.5-11.1); PLATELET COUNT 410 K/MM3 (134-434); RBC 2.52 M/mm3 (3.60-5.2); RDW 16.1 % (11.6-15.6); WHITE BLOOD COUNT 11.2 K/mm3 (4.0-10.0)
[2018-07-20 00:29] LABS: HEMATOCRIT 33.4 % (32.4-45.2); HEMOGLOBIN 11.1 GM/dL (10.7-15.3); MCH 29.3 pg (25.7-33.7); MCHC 33.1 g/dl (32.0-36.0); MEAN CELL VOLUME 88.4 fl (80-96); PLATELET COUNT 397 K/MM3 (134-434); RBC 3.78 M/mm3 (3.60-5.2); RDW 17.5 % (11.6-15.6); WHITE BLOOD COUNT 12.4 K/mm3 (4.0-10.0)
[2018-07-20] MEDS ORDERED: fentaNYL CITRATE 250 MCG/5 ML VIAL ONE (05:33)
[2018-07-20] MEDS: PANTOPRAZOLE SODIUM 80 MG in SODIUM CHLORIDE 100 ML IVPB SCH ×3 (06:09→17:33)
[2018-07-20] MEDS: LEVOTHYROXINE SODIUM 100 MCG VIAL IVPUSH SCH (06:10)
[2018-07-20] MEDS: FENTANYL INJECTION 500 MCG in DEXTROSE 5%-WATER - 90 ML IVPB SCH (06:10)
[2018-07-20 06:40] LABS: HEMATOCRIT 31.5 % (32.4-45.2); HEMOGLOBIN 10.8 GM/dL (10.7-15.3); MCH 29.9 pg (25.7-33.7); MCHC 34.4 g/dl (32.0-36.0); MEAN CELL VOLUME 86.8 fl (80-96); MEAN PLT VOLUME 7.9 fl (7.5-11.1); PLATELET COUNT 399 K/MM3 (134-434); RBC 3.62 M/mm3 (3.60-5.2); RDW 17.7 % (11.6-15.6); WHITE BLOOD COUNT 10.7 K/mm3 (4.0-10.0)
[2018-07-20 07:01] LABS: ARTERIAL BLD GAS O2 SATURATION 99.7 % (95-98); ARTERIAL BLOOD GAS PCO2 37.5 mmHg (35-45); ARTERIAL BLOOD GAS PO2 181 mmHg (80-105); ARTERIAL BLOOD GAS pH 7.26 (7.35-7.45)
[2018-07-20 07:02] LABS: ALLENS TEST POSITIVE; ARTERIAL BLOOD GAS BASE EXCESS -9.7 meq/l (-2-2)
[2018-07-20] MEDS ORDERED: MIDAZOLAM 100 MG/100 ML MG IVPB ONE (07:19)
[2018-07-20] MEDS: MIDAZOLAM 100 MG in SODIUM CHLORIDE 100 ML IVPB SCH (07:21)
[2018-07-20] MEDS: DEXTROSE 5%-NORMAL SALINE 1,000 ML IV SCH (07:21)
--- NOTE | 2018-07-20 08:22 | PN ---
Physical Exam: SUBJECTIVE: Patient seen and examined at bedside this morning. No acute events overnight. Patient intubated and sedated. Smudge of melena noted on the diaper overnight. Patient received 2 units pRBC yesterday and H/H remained stable overnight. On Versed and Fentanyl for sedation Vent: 14/400/40/5 OBJECTIVE: Vital Signs Temperature 98.0 F 07/20/18 06:00 Pulse Rate 59 L 07/20/18 06:00 Respiratory Rate 15 07/20/18 06:00 Blood Pressure 132/74 07/20/18 06:00 O2 Sat by Pulse Oximetry (%) 100 07/19/18 21:00 GENERAL: Patient is intubated and sedated. HEAD: Normal with no signs of trauma. EYES: PERRLA, EOMI, sclera anicteric, conjunctiva clear. EARS, NOSE, THROAT: Dry mucous membranes. Gag reflex intact LUNGS: Breath sounds equal, clear to auscultation bilaterally. HEART: Regular rate and rhythm, normal S1 and S2 without murmur, rub or gallop. ABDOMEN: Soft, nontender, not distended, normoactive bowel sounds. UPPER EXTREMITIES: 2+ pulses, warm, well-perfused. No peripheral edema. LOWER EXTREMITIES: 2+ pulses, warm, well-perfused.No peripheral edema. NEUROLOGICAL: sedated SKIN: Warm, dry, normal turgor, no rashes or lesions noted. Laboratory Results - last 24 hr 07/18/18 07/19/18 07/19/18 11:00 05:30 11:25 WBC RBC Hgb Hct MCV MCH MCHC RDW Plt Count MPV Anticoagulation Therapy Puncture Site ABG pH ABG pCO2 at Pt Temp ABG pO2 at Pt Temp ABG HCO3 ABG O2 Sat (Measured) ABG O2 Content ABG Base Excess Sal Test O2 Delivery Device Oxygen Flow Rate Vent Mode Vent Rate Mechanical Rate PEEP Pressure Support Vent Sodium 141 Potassium 4.0 Chloride 113 H Carbon Dioxide 17 L Anion Gap 11 BUN 155 H* Creatinine 2.3 H Est GFR (CKD-EPI)AfAm 23.31 Est GFR (CKD-EPI)NonAf 20.12 POC Glucometer 108 Random Glucose 81 Calcium 8.6 Phosphorus 3.9 Magnesium 2.7 H Total Bilirubin 0.3 AST 19 ALT 12 L Alkaline Phosphatase 56 Troponin I 0.04 B-Natriuretic Peptide 13753.2 H Total Protein 5.8 L Albumin 2.8 L Triglycerides 187 H Cholesterol 130 Total LDL Cholesterol 64 HDL Cholesterol 35 L TSH 13.40 H Free T4 0.75 L Free T3 Blood Type O NEGATIVE Antibody Screen Negative Crossmatch See Detail 07/19/18 07/19/18 07/19/18 12:50 12:50 16:58 WBC 11.2 H RBC 2.52 L Hgb 7.3 L Hct 22.0 L MCV 87.6 MCH 29.0 MCHC 33.1 RDW 16.1 H Plt Count 410 MPV 7.9 Anticoagulation Therapy Puncture Site ABG pH ABG pCO2 at Pt Temp ABG pO2 at Pt Temp ABG HCO3 ABG O2 Sat (Measured) ABG O2 Content ABG Base Excess Sal Test O2 Delivery Device Oxygen Flow Rate Vent Mode Vent Rate Mechanical Rate PEEP Pressure Support Vent Sodium Potassium Chloride Carbon Dioxide Anion Gap BUN Creatinine Est GFR (CKD-EPI)AfAm Est GFR (CKD-EPI)NonAf POC Glucometer 111 Random Glucose Calcium Phosphorus Magnesium Total Bilirubin AST ALT Alkaline Phosphatase Troponin I B-Natriuretic Peptide Total Protein Albumin Triglycerides Cholesterol Total LDL Cholesterol HDL Cholesterol TSH Free T4 Free T3 0.6 L Blood Type Antibody Screen Crossmatch 07/19/18 07/20/18 07/20/18 21:27 00:00 05:30 WBC 12.4 H 10.7 H RBC 3.78 3.62 Hgb 11.1 10.8 Hct 33.4 D 31.5 L MCV 88.4 86.8 MCH 29.3 29.9 MCHC 33.1 34.4 RDW 17.5 H 17.7 H Plt Count 397 399 MPV 8.0 7.9 Anticoagulation Therapy Puncture Site ABG pH ABG pCO2 at Pt Temp ABG pO2 at Pt Temp ABG HCO3 ABG O2 Sat (Measured) ABG O2 Content ABG Base Excess Sal Test O2 Delivery Device Oxygen Flow Rate Vent Mode Vent Rate Mechanical Rate PEEP Pressure Support Vent Sodium Potassium Chloride Carbon Dioxide Anion Gap BUN Creatinine Est GFR (CKD-EPI)AfAm Est GFR (CKD-EPI)NonAf POC Glucometer 91 Random Glucose Calcium Phosphorus Magnesium Total Bilirubin AST ALT Alkaline Phosphatase Troponin I B-Natriuretic Peptide Total Protein Albumin Triglycerides Cholesterol Total LDL Cholesterol HDL Cholesterol TSH Free T4 Free T3 Blood Type Antibody Screen Crossmatch 07/20/18 07/20/18 06:01 06:30 WBC RBC Hgb Hct MCV MCH MCHC RDW Plt Count MPV Anticoagulation Therapy No Result Required. Puncture Site Right radial ABG pH 7.26 L ABG pCO2 at Pt Temp 37.5 ABG pO2 at Pt Temp 181 H ABG HCO3 16.4 L ABG O2 Sat (Measured) 99.7 H ABG O2 Content 23.2 H ABG Base Excess -9.7 L Sal Test Positive O2 Delivery Device Vent Oxygen Flow Rate 40% Vent Mode No Result Required. Vent Rate 14 Mechanical Rate No Result Required. PEEP 5.0 Pressure Support Vent 400 Sodium Potassium Chloride Carbon Dioxide Anion Gap BUN Creatinine Est GFR (CKD-EPI)AfAm Est GFR (CKD-EPI)NonAf POC Glucometer 100 Random Glucose Calcium Phosphorus Magnesium Total Bilirubin AST ALT Alkaline Phosphatase Troponin I B-Natriuretic Peptide Total Protein Albumin Triglycerides Cholesterol Total LDL Cholesterol HDL Cholesterol TSH Free T4 Free T3 Blood Type Antibody Screen Crossmatch Active Medications Generic Name Dose Route Start Last Admin Trade Name Freq PRN Reason Stop Dose Admin Pantoprazole Sodium 80 mg/ 100 mls @ 10 mls/hr 07/18/18 12:00 07/20/18 06:09 Sodium Chloride IVPB Not Given Q10H LINNEA 8 MG/HR Fentanyl 500 mcg/ Dextrose 100 mls @ 20 mls/hr 07/18/18 14:30 07/20/18 06:10 IVPB 50 mcg/hr TITR LINNEA 10 mls/hr Administration Protocol 100 MCG/HR Midazolam HCl 100 mg/ Sodium 100 mls @ 1 mls/hr 07/18/18 22:15 07/20/18 07:21 Chloride IVPB 2 mg/hr TITR LINNEA 2 mls/hr Administration Protocol 1 MG/HR Dextrose/Sodium Chloride 1,000 mls @ 83 mls/hr 07/19/18 08:45 07/20/18 07:21 D5-Ns - IV 83 mls/hr ASDIR LINNEA Administration Levothyroxine Sodium 100 mcg 07/19/18 07:00 07/20/18 06:10 Synthroid Injection - IVPUSH 100 mcg ACBK LINNEA Administration ASSESSMENT/PLAN: Patient is a 77 year old female with past medical history of failure to thrive, nonpressure chronic ulcer of left foot, anemia, HTN, Parkinson's, HLD, CKD, GI hemorrhage, COPD, MDD, GERD, Hypothyroidism, was sent from the [facility] due to Hgb of 6.2. At the ED, she was noted to have lorenzo hematemesis with significant clots and melena. #Neurology -Intubated, sedated -On Fentanyl and versed for vent synchrony -Will taper off today for sedation vacation to assess mental status -Hx of Parkinson's and dementia #Cardiovascular -Hx of HTN, HLD -BP wnl -Will hold home Metoprolol and Amlodipine for now -May resume Metoprolol if hypertensive -Continue tele monitoring -Cardiology (Dr. Campbell) consulted for pre-op clearance. -There is no cardiac contraindication to the planned endoscopy -Transfuse pRBC as needed to maintain Hgb>8 in setting of presumed CAD #Pulmo -Intubated -Vent settings: 14/400/40/5 #GI -Hematemesis and melena likely 2/2 UGIB vs LGIB -DI (Dr. Tijerina) consulted. Recommendations appreciated. -Will keep NPO -IV fluids -s/p 2 units during admission and additional 2 units transfused yesterday -repeat H/H this morning 10.8/31.5 -Will monitor CBC closely -Continue IV Protonix drip -Plan for EGD Patient have refused EGD in the past. Patient is known to be estranged from her daughter Thao, per [facility] Cisneros. Attempted to call the number in the chart, which was the same number on file with [facility] Cisneros, but number was nonfunctional. Attempted to call the friend on file, Maegan, have not called back. Would follow up on discussion regarding goals of care with primary care team. #Renal -Hx of CKD -renal function baseline -Elevated BUN likely in the setting of GI bleeding -will monitor closely -Switch IV fluids to D5-1/2 NS -Nephrology (Dr. John) consulted. Recommendations appreciated. #ID -No signs of active infection -will monitor CBC #Endo -Hx of hypothyroidism -Continue Synthroid 100mcg IV -TSH elevated at 13.4 -Free T3 low -Would need outpatient follow up. #Heme -Hgb 10.8 s/p 2 units pRBC yesterday -monitor CBC q6h -Transfuse PRN, to keep Hgb>8 -Leukocytosis, likely reactive, trending down -will continue to monitor #FEN -IV D5-1/2NS @60cc/hr -Electrolytes wnl, routine bmp monitoring -NPO for now. #Prophylaxis -DVT: SCDs, no chemical ppx in light of GI bleeding -GI: Protonix drip #Disposition -full code -ICU monitoring -Palliative care consulted as per primary team. Visit type - Emergency Visit Emergency Visit: Yes ED Registration Date: 07/18/18 Care time: The patient presented to the Emergency Department on the above date and was hospitalized for further evaluation of their emergent condition. - New Patient This patient is new to me today: No - Critical Care Critical Care patient: Yes Total Critical Care Time (in minutes): 37 Critical Care Statement: The care of this patient involved high complexity decision making to prevent further life threatening deterioration of the patient 's condition and/or to evaluate & treat vital organ system(s) failure or risk of failure.
[2018-07-20 08:25] LABS: CALCIUM 8.5 mg/dL (8.5-10.1); CREATININE 2.2 mg/dL (0.55-1.3); MAGNESIUM 2.5 mg/dL (1.8-2.4); PHOSPHOROUS 3.9 mg/dL (2.5-4.9); POTASSIUM 3.7 mmol/L (3.5-5.1)
[2018-07-20] MEDS ORDERED: PT OWN MED DRAWER 7, Y5N ONE (08:28)
--- NOTE | 2018-07-20 08:51 | PN ---
Progress Note, Physician - Current Medication List Current Medications: Active Medications Pantoprazole Sodium 80 mg/ (Sodium Chloride) 100 mls @ 10 mls/hr IVPB Q10H LINNEA Last Admin: 07/20/18 08:30 Dose: 10 mls/hr Fentanyl 500 mcg/ Dextrose 100 mls @ 20 mls/hr IVPB TITR LINNEA; Protocol Last Admin: 07/20/18 06:10 Dose: 50 mcg/hr, 10 mls/hr Midazolam HCl 100 mg/ Sodium (Chloride) 100 mls @ 1 mls/hr IVPB TITR LINNEA; Protocol Last Admin: 07/20/18 07:21 Dose: 2 mg/hr, 2 mls/hr Dextrose/Sodium Chloride (D5-Ns -) 1,000 mls @ 83 mls/hr IV ASDIR LINNEA Last Admin: 07/20/18 07:21 Dose: 83 mls/hr Levothyroxine Sodium (Synthroid Injection -) 100 mcg IVPUSH ACBK LINNEA Last Admin: 07/20/18 06:10 Dose: 100 mcg - Objective Vital Signs: Vital Signs Temperature 98.0 F 07/20/18 06:00 Pulse Rate 65 07/20/18 08:36 Respiratory Rate 14 07/20/18 08:36 Blood Pressure 132/74 07/20/18 06:00 O2 Sat by Pulse Oximetry (%) 100 07/20/18 08:36 Cardiovascular: Yes: S1, S2 Respiratory: Yes: Mechanically Ventilated Gastrointestinal: Yes: Normal Bowel Sounds, Soft Neurological: Yes: Alert, Oriented Labs: CBC, BMP 07/20/18 05:30 07/20/18 05:30 INR, PTT INR 0.95 (0.83-1.09) 07/18/18 11:00 Assessment/Plan - Problems (1) GIB (gastrointestinal bleeding) Assessment/Plan: -GI on board -monitor Hg closely and transfuse for Hg >9.0 -S/p PRBC transfused -CBC q6h -NPO -IV hydration -Pantoprazole drip -cardiology clearance for EGD Code(s): K92.2 - GASTROINTESTINAL HEMORRHAGE, UNSPECIFIED (2) Anemia Assessment/Plan: -2/2 to GI bleed -GI on board -monitor Hg closely and transfuse for Hg >9.0 -1U PRBC transfused, pending 2nd unit -CBC q6h -NPO -IV hydration -Pantoprazole drip Code(s): D64.9 - ANEMIA, UNSPECIFIED Qualifiers: Anemia type: unspecified type Qualified Code(s): D64.9 - Anemia, unspecified (3) CKD (chronic kidney disease) Assessment/Plan: -BUN/Cr HIGH MAY NEED DIALYSIS -monitor renal function daily -renal consult Code(s): N18.9 - CHRONIC KIDNEY DISEASE, UNSPECIFIED Qualifiers: Chronic kidney disease stage: unspecified stage Qualified Code(s): N18.9 - Chronic kidney disease, unspecified (4) HTN (hypertension) Assessment/Plan: -norvasc on hold, will resume when extubated -monitor BP -Lopressor 5mg ivp prn Code(s): I10 - ESSENTIAL (PRIMARY) HYPERTENSION Qualifiers: Hypertension type: unspecified Qualified Code(s): I10 - Essential (primary ) hypertension (5) Hypothyroid Assessment/Plan: -Synthroid 100mcg IVP Code(s): E03.9 - HYPOTHYROIDISM, UNSPECIFIED Qualifiers: Hypothyroidism type: unspecified Qualified Code(s): E03.9 - Hypothyroidism , unspecified (6) Respiratory failure Assessment/Plan: -Intubated and sedated
--- NOTE | 2018-07-20 10:32 | PN ---
Teaching Attending Note Name of Resident: Pia Greene ATTENDING PHYSICIAN STATEMENT I saw and evaluated the patient. I reviewed the resident's note and discussed the case with the resident. I agree with the resident's findings and plan as documented. SUBJECTIVE: Pt seen and examined in the ICU. Remains intubated, sedated. Transfused 2 more units PRBC yesterday. OBJECTIVE: Vital Signs Period Temp Pulse Resp BP Sys/Rolon Pulse Ox Last 24 Hr 97.5 F-98.4 F 48-66 13-21 99-137/39-85 100-100 Intake & Output 07/17/18 07/18/18 07/19/18 07/20/18 23:59 23:59 23:59 23:59 Intake Total 580 2770 926 Output Total 200 1300 600 Balance 380 1470 326 Weight 47.582 kg 50.167 kg 48.988 kg Gen: intubated, sedated Heart: RRR Lung: decreased breath sounds at the bases Abd: soft, nontender Ext: no edema CBC, BMP 07/20/18 05:30 07/20/18 05:30 Active Medications Pantoprazole Sodium 80 mg/ (Sodium Chloride) 100 mls @ 10 mls/hr IVPB Q10H LINNEA Last Admin: 07/20/18 08:30 Dose: 10 mls/hr Fentanyl 500 mcg/ Dextrose 100 mls @ 20 mls/hr IVPB TITR LINNEA; Protocol Last Titration: 07/20/18 09:50 Dose: 0 mcg/hr, 0 mls/hr Midazolam HCl 100 mg/ Sodium (Chloride) 100 mls @ 1 mls/hr IVPB TITR LINNEA; Protocol Last Titration: 07/20/18 09:50 Dose: 0 mg/hr, 0 mls/hr Dextrose/Sodium Chloride (D5-Ns -) 1,000 mls @ 83 mls/hr IV ASDIR LINNEA Last Admin: 07/20/18 07:21 Dose: 83 mls/hr Levothyroxine Sodium (Synthroid Injection -) 100 mcg IVPUSH ACBK LINNEA Last Admin: 07/20/18 06:10 Dose: 100 mcg ASSESSMENT AND PLAN: Recurrent GI Bleed Acute Blood Loss Anemia Acute Respiratory Failure HTN DM CKD Hypothyroidism Parkinsons Dementia - monitor H/H - transfuse as needed - GI f/u - protonix - NPO - IVF - monitor urine output, creatinine - hold sedation to assess mental status - spontaneous breathing trials as tolerated - wean to extubate - DVT prophylaxis - continue ICU monitoring critical care time spent in reviewing chart, evaluating patient and formulating plan 35 min
--- NOTE | 2018-07-20 12:37 | PN ---
Progress Note, Physician History of Present Illness: Pt seen and examined at bedside. She remains in the ICU. She remains intubated. - Current Medication List Current Medications: Active Medications Amlodipine Besylate (Norvasc -) 10 mg PO DAILY [facility] Escitalopram Oxalate (Lexapro -) 20 mg PO DAILY [facility] Pantoprazole Sodium 80 mg/ (Sodium Chloride) 100 mls @ 10 mls/hr IVPB Q10H [facility] Last Admin: 07/20/18 08:30 Dose: 10 mls/hr Dextrose/Sodium Chloride (D5-Ns -) 1,000 mls @ 83 mls/hr IV ASDIR [facility] Last Admin: 07/20/18 07:21 Dose: 83 mls/hr Levothyroxine Sodium (Synthroid Injection -) 100 mcg IVPUSH ACBK [facility] Last Admin: 07/20/18 06:10 Dose: 100 mcg Metoprolol Succinate (Toprol Xl -) 25 mg PO DAILY [facility] Tamsulosin HCl (Flomax -) 0.4 mg PO DAILY@0830 [facility] - Objective Vital Signs: Vital Signs Temperature 98.0 F 07/20/18 06:00 Pulse Rate 66 07/20/18 10:00 Respiratory Rate 13 07/20/18 10:00 Blood Pressure 130/53 L 07/20/18 10:00 O2 Sat by Pulse Oximetry (%) 100 07/20/18 08:36 Constitutional: Yes: Calm Eyes: Yes: Conjunctiva Clear HENT: Yes: Atraumatic Neck: Yes: Supple Cardiovascular: Yes: S1, S2 Respiratory: Yes: Mechanically Ventilated Gastrointestinal: Yes: Soft Genitourinary: Yes: Bernard Present Musculoskeletal: Yes: WNL Edema: No Neurological: Yes: Lethargy Labs: CBC, BMP 07/20/18 05:30 07/20/18 05:30 INR, PTT INR 0.95 (0.83-1.09) 07/18/18 11:00 - ....Imaging Chest X-ray: Report Reviewed Problem List - Problems (1) GIB (gastrointestinal bleeding) Code(s): K92.2 - GASTROINTESTINAL HEMORRHAGE, UNSPECIFIED (2) Anemia Code(s): D64.9 - ANEMIA, UNSPECIFIED Qualifiers: Anemia type: unspecified type Qualified Code(s): D64.9 - Anemia, unspecified (3) CKD (chronic kidney disease) Code(s): N18.9 - CHRONIC KIDNEY DISEASE, UNSPECIFIED Qualifiers: Chronic kidney disease stage: unspecified stage Qualified Code(s): N18.9 - Chronic kidney disease, unspecified (4) HTN (hypertension) Code(s): I10 - ESSENTIAL (PRIMARY) HYPERTENSION Qualifiers: Hypertension type: unspecified Qualified Code(s): I10 - Essential (primary ) hypertension Assessment/Plan Current Medications Generic Name Dose Route Start Last Admin Trade Name Freq PRN Reason Stop Dose Admin Amlodipine Besylate 10 mg 07/20/18 12:15 Norvasc - PO DAILY LINNEA Escitalopram Oxalate 20 mg 07/21/18 10:00 Lexapro - PO DAILY LINNEA Pantoprazole Sodium 80 mg/ 100 mls @ 10 mls/hr 07/18/18 12:00 07/20/18 08:30 Sodium Chloride IVPB 10 mls/hr Q10H LINNEA Administration 8 MG/HR Dextrose/Sodium Chloride 1,000 mls @ 83 mls/hr 07/19/18 08:45 07/20/18 07:21 D5-Ns - IV 83 mls/hr ASDIR LINNEA Administration Levothyroxine Sodium 100 mcg 07/19/18 07:00 07/20/18 06:10 Synthroid Injection - IVPUSH 100 mcg ACBK LINNEA Administration Metoprolol Succinate 25 mg 07/20/18 12:15 Toprol Xl - PO DAILY [facility] Tamsulosin HCl 0.4 mg 07/21/18 08:30 Flomax - PO DAILY@0830 LINNEA Impression 1. CKD 2. right renal cyst 3. toe ulcer 4. hypothryoid 5. dementia 6. parkinsons 7. HTN 8. gout 9. uremia 10. anemia 11. GI bleed 12. LUCERO 13. resp failure Plan - cont to monitor hg - change fluids to 1/2 and decrease rate - monitor renal function - gi bleed contributing to elevated BUN - monitor urine output - vent support Dr John
[2018-07-20] MEDS: DEXTROSE 5%-0.45% SALINE 1,000 ML IV SCH (12:41)
[2018-07-20 13:31] LABS: HEMATOCRIT 38.1 % (32.4-45.2); HEMOGLOBIN 12.5 GM/dL (10.7-15.3); MCH 29.2 pg (25.7-33.7); MCHC 32.7 g/dl (32.0-36.0); MEAN CELL VOLUME 89.4 fl (80-96); MEAN PLT VOLUME 7.9 fl (7.5-11.1); PLATELET COUNT 422 K/MM3 (134-434); RBC 4.26 M/mm3 (3.60-5.2); RDW 18.1 % (11.6-15.6)
[2018-07-20] MEDS: metoPROLOL SUCCINATE 25 MG TAB.SR.24H (FP) PO SCH (16:32)
[2018-07-20] MEDS: amLODIPine BESYLATE 10 MG TABLET (FP) PO SCH (16:33)
--- NOTE | 2018-07-20 19:24 | PN.GI ---
GI Progress Note Subjective: Patient extubated. Complains of her nose being dry, otherwise states "feeling fine" No BM today - Objective Vital Signs: Vital Signs Temperature 99.4 F 07/20/18 17:58 Pulse Rate 77 07/20/18 17:58 Respiratory Rate 15 07/20/18 17:58 Blood Pressure 93/61 07/20/18 17:58 O2 Sat by Pulse Oximetry (%) 100 07/20/18 14:00 Constitutional: Calm Eyes: No: Sclera Icterus Cardiovascular: Yes: Regular Rate and Rhythm Respiratory: Yes: Diminished (at bases, however with poor inspiratory effort) Gastrointestinal Inspection: No: Distention ...Auscultate: Yes: Normoactive Bowel Sounds ...Palpate: Yes: Soft. No: Tenderness ...Percussion: No: Tympanitic Edema: No (No LE edema) Neurological: Yes: Alert Labs: CBC, BMP 07/20/18 13:08 07/20/18 05:30 INR, PTT INR 0.95 (0.83-1.09) 07/18/18 11:00 Problem List - Problems (1) GIB (gastrointestinal bleeding) Assessment/Plan: Suspected recurrent upper GI bleed. Hemodynamically stable. undetermined source as the patient has refused evaluation on multiple occasions. Please refer to prior consults and follow-up notes for the full details regarding that. Had discussion with Ms. Colon this evening. Explained that to look for source of bleeding, upper endoscopy could be performed to evaluate for source of bleeding such as PUD, bleeding blood vessels or cancers. She stated "No, I feel fine" PPI drip for total of 72 hours from when it was initiated, then change to 40mg IVPB BID Monitor H/H and for signs of overt bleeding NPO IV Hydration Clarification of goals of care per PMD. patient still refusing endoscopic evaluation. ? if ethics consult would be of benefit Code(s): K92.2 - GASTROINTESTINAL HEMORRHAGE, UNSPECIFIED
[2018-07-20 20:09] LABS: HEMOGLOBIN 11.3 GM/dL (10.7-15.3); MCH 29.6 pg (25.7-33.7); MCHC 33.2 g/dl (32.0-36.0); MEAN CELL VOLUME 88.9 fl (80-96); PLATELET COUNT 438 K/MM3 (134-434); RBC 3.83 M/mm3 (3.60-5.2); RDW 18.2 % (11.6-15.6); WHITE BLOOD COUNT 16.5 K/mm3 (4.0-10.0)
[2018-07-21] MEDS: PANTOPRAZOLE SODIUM 80 MG in SODIUM CHLORIDE 100 ML IVPB SCH ×2 (01:24→06:31)
[2018-07-21 06:26] LABS: BASO % 0.6 % (0-2.0); EOS % 0.6 % (0-4.5); HEMATOCRIT 30.3 % (32.4-45.2); HEMOGLOBIN 10.7 GM/dL (10.7-15.3); MCH 30.7 pg (25.7-33.7); MCHC 35.3 g/dl (32.0-36.0); MEAN CELL VOLUME 86.9 fl (80-96); MEAN PLT VOLUME 7.5 fl (7.5-11.1); MONO % 5.6 % (3.8-10.2); NEUT % 87.2 % (42.8-82.8); PLATELET COUNT 413 K/MM3 (134-434); RBC 3.49 M/mm3 (3.60-5.2); RDW 18.2 % (11.6-15.6)
[2018-07-21] MEDS: LEVOTHYROXINE SODIUM 100 MCG VIAL IVPUSH SCH (06:30)
[2018-07-21] MEDS: DEXTROSE 5%-0.45% SALINE 1,000 ML IV SCH (06:31)
[2018-07-21 06:50] LABS: CALCIUM 8.4 mg/dL (8.5-10.1); CREATININE 2.2 mg/dL (0.55-1.3); POTASSIUM 3.2 mmol/L (3.5-5.1)
[2018-07-21 06:51] LABS: ALBUMIN 2.5 g/dl (3.4-5.0); BILIRUBIN,TOTAL 0.5 mg/dL (0.2-1); MAGNESIUM 2.4 mg/dL (1.8-2.4); PHOSPHOROUS 3.8 mg/dL (2.5-4.9); TOT PROT 5.6 g/dl (6.4-8.2)
[2018-07-21] MEDS ORDERED: DEXTROSE 5%-WATER - 1,000 ML IV SCH (08:00)
[2018-07-21] MEDS ORDERED: POTASSIUM CHLORIDE TABS 20 MEQ TABLET.ER (FP) PO ONE ×2 (08:15→20:00)
[2018-07-21] MEDS ORDERED: TAMSULOSIN HCL 0.4 MG CAP PO SCH (08:30)
[2018-07-21] MEDS: DEXTROSE 5%-WATER - 1,000 ML IV SCH (09:00)
[2018-07-21] MEDS: metoPROLOL SUCCINATE 25 MG TAB.SR.24H (FP) PO SCH (09:40)
[2018-07-21] MEDS: amLODIPine BESYLATE 10 MG TABLET (FP) PO SCH (09:40)
[2018-07-21] MEDS ORDERED: PANTOPRAZOLE SODIUM 40 MG VIAL IVPUSH SCH (10:00)
[2018-07-21] MEDS ORDERED: ESCITALOPRAM OXALATE 20 MG TABLET (FP) PO SCH (10:00)
--- NOTE | 2018-07-21 11:01 | PN ---
Teaching Attending Note Name of Resident: Pia Greene ATTENDING PHYSICIAN STATEMENT I saw and evaluated the patient. I reviewed the resident's note and discussed the case with the resident. I agree with the resident's findings and plan as documented. SUBJECTIVE: Pt seen and examined in the ICU. Extubated yesterday without incident. No obvious bleeding. H/H has been stable. OBJECTIVE: Vital Signs Period Temp Pulse Resp BP Sys/Rolon Pulse Ox Last 24 Hr 97.9 F-99.5 F 59-113 11-18 87-187/46-105 100-100 Intake & Output 07/18/18 07/19/18 07/20/18 07/21/18 23:59 23:59 23:59 23:59 Intake Total 580 2770 1378 840 Output Total 200 1300 1050 Balance 380 1470 328 840 Weight 47.582 kg 50.167 kg 48.988 kg 53.977 kg Gen: NAD at rest Heart: RRR Lung: decreased breath sounds at the bases Abd: soft, nontender Ext: no edema CBC, BMP 07/21/18 05:30 07/21/18 05:30 Active Medications Amlodipine Besylate (Norvasc -) 10 mg PO DAILY [facility] Last Admin: 07/21/18 09:40 Dose: 10 mg Escitalopram Oxalate (Lexapro -) 20 mg PO DAILY [facility] Last Admin: 07/21/18 09:40 Dose: 20 mg Dextrose (D5w -) 1,000 mls @ 60 mls/hr IV ASDIR [facility] Last Admin: 07/21/18 09:00 Dose: 60 mls/hr Levothyroxine Sodium (Synthroid Injection -) 100 mcg IVPUSH ACBK [facility] Last Admin: 07/21/18 06:30 Dose: 100 mcg Metoprolol Succinate (Toprol Xl -) 25 mg PO DAILY [facility] Last Admin: 07/21/18 09:40 Dose: 25 mg Pantoprazole Sodium (Protonix Iv) 40 mg IVPUSH BID [facility] Last Admin: 07/21/18 09:40 Dose: 40 mg Tamsulosin HCl (Flomax -) 0.4 mg PO DAILY@0830 [facility] Last Admin: 07/21/18 08:04 Dose: 0.4 mg ASSESSMENT AND PLAN: Recurrent GI Bleed Acute Blood Loss Anemia Acute Respiratory Failure HTN DM CKD Hypothyroidism Parkinsons Dementia - monitor H/H - transfuse as needed - protonix - PO per GI - IVF - replete lytes - monitor urine output, creatinine - DVT prophylaxis - can monitor on floor
--- NOTE | 2018-07-21 11:46 | PN ---
Progress Note, Physician Chief Complaint: patient seen and examined s/p extubation h/h stable s/p prbc - Current Medication List Current Medications: Active Medications Amlodipine Besylate (Norvasc -) 10 mg PO DAILY [facility] Last Admin: 07/21/18 09:40 Dose: 10 mg Escitalopram Oxalate (Lexapro -) 20 mg PO DAILY [facility] Last Admin: 07/21/18 09:40 Dose: 20 mg Dextrose (D5w -) 1,000 mls @ 60 mls/hr IV ASDIR [facility] Last Admin: 07/21/18 09:00 Dose: 60 mls/hr Levothyroxine Sodium (Synthroid Injection -) 100 mcg IVPUSH ACBK [facility] Last Admin: 07/21/18 06:30 Dose: 100 mcg Metoprolol Succinate (Toprol Xl -) 25 mg PO DAILY [facility] Last Admin: 07/21/18 09:40 Dose: 25 mg Pantoprazole Sodium (Protonix Iv) 40 mg IVPUSH BID [facility] Last Admin: 07/21/18 09:40 Dose: 40 mg Tamsulosin HCl (Flomax -) 0.4 mg PO DAILY@0830 [facility] Last Admin: 07/21/18 08:04 Dose: 0.4 mg - Objective Vital Signs: Vital Signs Temperature 97.9 F 07/21/18 10:00 Pulse Rate 60 07/21/18 10:00 Respiratory Rate 16 07/21/18 10:00 Blood Pressure 131/52 L 07/21/18 10:00 O2 Sat by Pulse Oximetry (%) 100 07/21/18 09:00 Constitutional: Yes: Calm, Thin Cardiovascular: Yes: Regular Rate and Rhythm, S1, S2 Respiratory: Yes: CTA Bilaterally Gastrointestinal: Yes: Normal Bowel Sounds, Soft Edema: No Labs: CBC, BMP 07/21/18 05:30 07/21/18 05:30 INR, PTT INR 0.95 (0.83-1.09) 07/18/18 11:00 Problem List - Problems (1) GIB (gastrointestinal bleeding) Assessment/Plan: h/h stable iv ppi bid psych for capacity to make decsion as patien refusing EGD elevated bun secondary to GI bleed Code(s): K92.2 - GASTROINTESTINAL HEMORRHAGE, UNSPECIFIED (2) Anemia Assessment/Plan: stool occult recheck again iv ppi bid trend cbc gi on board- refusing egd NPO Code(s): D64.9 - ANEMIA, UNSPECIFIED Qualifiers: Anemia type: unspecified type Qualified Code(s): D64.9 - Anemia, unspecified (3) Hypothyroid Assessment/Plan: tsh elevated synthroid dose increased iv for now Code(s): E03.9 - HYPOTHYROIDISM, UNSPECIFIED (4) CKD (chronic kidney disease) Assessment/Plan: creatinine is stable inc bun is secondary to GIB Code(s): N18.9 - CHRONIC KIDNEY DISEASE, UNSPECIFIED Qualifiers: Chronic kidney disease stage: unspecified stage Qualified Code(s): N18.9 - Chronic kidney disease, unspecified
--- NOTE | 2018-07-21 12:00 | PN ---
Physical Exam: SUBJECTIVE: Patient seen and examined at bedside this morning. Patient had 1 nonbloody BM overnight. This morning, patient is awake and alert, oriented to self and place. She denies any chest pain, SOb, abdominal pain, urinary symptoms. OBJECTIVE: Vital Signs Temperature 97.9 F 07/21/18 10:00 Pulse Rate 60 07/21/18 10:00 Respiratory Rate 16 07/21/18 10:00 Blood Pressure 131/52 L 07/21/18 10:00 O2 Sat by Pulse Oximetry (%) 100 07/21/18 09:00 GENERAL: The patient is awake, alert, and oriented to self and to place, in no acute distress. HEAD: Normal with no signs of trauma. EYES: PERRLA, EOMI, sclera anicteric, conjunctiva clear. ENT: Dry mucous membranes. NECK: supple. LUNGS: Breath sounds equal, clear to auscultation bilaterally. HEART: Regular rate and rhythm, S1, S2 without murmur, rub or gallop. ABDOMEN: Soft, nontender, nondistended, normoactive bowel sounds. EXTREMITIES: 2+ pulses, warm, well-perfused, no edema. NEUROLOGICAL:Normal speech, gait not observed. SKIN: Warm, dry, normal turgor, no rashes or lesions noted Laboratory Results - last 24 hr 07/20/18 07/20/18 07/20/18 05:30 13:08 17:24 WBC 16.0 H RBC 4.26 Hgb 12.5 Hct 38.1 D MCV 89.4 MCH 29.2 MCHC 32.7 RDW 18.1 H Plt Count 422 MPV 7.9 Absolute Neuts (auto) Neutrophils % Lymphocytes % Monocytes % Eosinophils % Basophils % Nucleated RBC % Sodium Potassium Chloride Carbon Dioxide Anion Gap BUN 147 H* Creatinine Est GFR (CKD-EPI)AfAm Est GFR (CKD-EPI)NonAf POC Glucometer 134 Random Glucose Calcium Phosphorus Magnesium Total Bilirubin AST ALT Alkaline Phosphatase Total Protein Albumin 07/20/18 07/20/18 07/21/18 19:45 21:01 05:30 WBC 16.5 H 11.0 H RBC 3.83 3.49 L Hgb 11.3 10.7 Hct 34.0 30.3 L MCV 88.9 86.9 MCH 29.6 30.7 MCHC 33.2 35.3 RDW 18.2 H 18.2 H Plt Count 438 H 413 MPV 8.0 7.5 Absolute Neuts (auto) 9.6 H Neutrophils % 87.2 H Lymphocytes % 6.0 L Monocytes % 5.6 Eosinophils % 0.6 Basophils % 0.6 Nucleated RBC % 0 Sodium Potassium Chloride Carbon Dioxide Anion Gap BUN Creatinine Est GFR (CKD-EPI)AfAm Est GFR (CKD-EPI)NonAf POC Glucometer 127 Random Glucose Calcium Phosphorus Magnesium Total Bilirubin AST ALT Alkaline Phosphatase Total Protein Albumin 07/21/18 07/21/18 05:30 06:10 WBC RBC Hgb Hct MCV MCH MCHC RDW Plt Count MPV Absolute Neuts (auto) Neutrophils % Lymphocytes % Monocytes % Eosinophils % Basophils % Nucleated RBC % Sodium 146 H Potassium 3.2 L Chloride 121 H Carbon Dioxide 16 L Anion Gap 9 BUN 122 H* Creatinine 2.2 H Est GFR (CKD-EPI)AfAm 24.60 Est GFR (CKD-EPI)NonAf 21.23 POC Glucometer 91 Random Glucose 101 Calcium 8.4 L Phosphorus 3.8 Magnesium 2.4 Total Bilirubin 0.5 AST 17 ALT 13 Alkaline Phosphatase 64 Total Protein 5.6 L Albumin 2.5 L Active Medications Generic Name Dose Route Start Last Admin Trade Name Freq PRN Reason Stop Dose Admin Amlodipine Besylate 10 mg 07/20/18 12:15 07/21/18 09:40 Norvasc - PO 10 mg DAILY [facility] Administration Escitalopram Oxalate 20 mg 07/21/18 10:00 07/21/18 09:40 Lexapro - PO 20 mg DAILY [facility] Administration Dextrose 1,000 mls @ 60 mls/hr 07/21/18 08:00 07/21/18 09:00 D5w - IV 60 mls/hr ASDIR [facility] Administration Levothyroxine Sodium 100 mcg 07/19/18 07:00 07/21/18 06:30 Synthroid Injection - IVPUSH 100 mcg ACBK [facility] Administration Metoprolol Succinate 25 mg 07/20/18 12:15 07/21/18 09:40 Toprol Xl - PO 25 mg DAILY [facility] Administration Pantoprazole Sodium 40 mg 07/21/18 10:00 07/21/18 09:40 Protonix Iv IVPUSH 40 mg BID [facility] Administration Tamsulosin HCl 0.4 mg 07/21/18 08:30 07/21/18 08:04 Flomax - PO 0.4 mg DAILY@0830 [facility] Administration ASSESSMENT/PLAN: Patient is a 77 year old female with past medical history of failure to thrive, nonpressure chronic ulcer of left foot, anemia, HTN, Parkinson's, HLD, CKD, GI hemorrhage, COPD, MDD, GERD, Hypothyroidism, was sent from the [facility] due to Hgb of 6.2. At the ED, she was noted to have lorenzo hematemesis with significant clots and melena. #Neurology -Pt is awake and alert -Hx of Parkinson's and dementia #Cardiovascular -Hx of HTN, HLD -Will resume home Metoprolol XL 25mg daily and Amlodipine 10mg daily -Cardiology (Dr. Campbell) consulted for pre-op clearance. -There is no cardiac contraindication to the planned endoscopy -Transfuse pRBC as needed to maintain Hgb>8 in setting of presumed CAD #Pulmo -Supplemental O2 PRN to keep SpO2>90% #GI -Hematemesis and melena likely 2/2 UGIB vs LGIB -DI (Dr. Wright) consulted. Recommendations appreciated. -NPO -IV fluids -s/p 4 units pRBC since admission, stable H/H overnight -repeat H/H this morning 10.7/.3 -Monitor H/H and for signs of overt bleeding -Switch IV Protonix to 40mg BID Patient have refused EGD in the past. Patient is known to be estranged from her daughter Thao, per [facility]. Attempted to call the number in the chart, which was the same number on file with [facility], but number was nonfunctional. Attempted to call the friend on file, Maegan, have not called back. Would follow up on discussion regarding goals of care with primary care team. #Renal -Hx of CKD -renal function baseline -Elevated BUN likely in the setting of GI bleeding -will monitor closely -Hyperchloremia, HyperNa -Switched IV fluids to D5W -Nephrology (Dr. John) consulted. Recommendations appreciated. #ID -No signs of active infection -will monitor CBC #Endo -Hx of hypothyroidism -Continue Synthroid 100mcg IV -TSH elevated at 13.4 -Free T3 low -Would need outpatient follow up. #Heme -Anemia, likely 2/2 acute GI blood loss, stable -monitor CBC closely -Transfuse PRN, to keep Hgb>8 -Leukocytosis, likely reactive, trending down -will continue to monitor #FEN -IV D5 @60cc/hr - routine bmp monitoring -NPO for now. #Prophylaxis -DVT: SCDs, no chemical ppx in light of GI bleeding -GI: Protonix 40mg BID #Disposition -full code [facility] -Palliative care consulted as per primary team. Visit type - Emergency Visit Emergency Visit: Yes ED Registration Date: 07/18/18 Care time: The patient presented to the Emergency Department on the above date and was hospitalized for further evaluation of their emergent condition. - New Patient This patient is new to me today: No - Critical Care Critical Care patient: Yes Total Critical Care Time (in minutes): 35 Critical Care Statement: The care of this patient involved high complexity decision making to prevent further life threatening deterioration of the patient 's condition and/or to evaluate & treat vital organ system(s) failure or risk of failure.
--- NOTE | 2018-07-21 14:25 | PN ---
Progress Note, Physician History of Present Illness: Pt seen and examined at bedside. She is now extubated. She is refusing endoscopy. - Current Medication List Current Medications: Active Medications Amlodipine Besylate (Norvasc -) 10 mg PO DAILY [facility] Last Admin: 07/21/18 09:40 Dose: 10 mg Escitalopram Oxalate (Lexapro -) 20 mg PO DAILY [facility] Last Admin: 07/21/18 09:40 Dose: 20 mg Dextrose (D5w -) 1,000 mls @ 60 mls/hr IV ASDIR [facility] Last Admin: 07/21/18 09:00 Dose: 60 mls/hr Levothyroxine Sodium (Synthroid -) 100 mcg PO DAILY@0700 [facility] Metoprolol Succinate (Toprol Xl -) 25 mg PO DAILY [facility] Last Admin: 07/21/18 09:40 Dose: 25 mg Pantoprazole Sodium (Protonix Iv) 40 mg IVPB BID [facility] Potassium Chloride (K-Dur -) 40 meq PO ONCE ONE Stop: 07/21/18 20:01 Tamsulosin HCl (Flomax -) 0.4 mg PO DAILY@0830 [facility] Last Admin: 07/21/18 08:04 Dose: 0.4 mg - Objective Vital Signs: Vital Signs Temperature 97.9 F 07/21/18 10:00 Pulse Rate 60 07/21/18 10:00 Respiratory Rate 16 07/21/18 10:00 Blood Pressure 131/52 L 07/21/18 10:00 O2 Sat by Pulse Oximetry (%) 100 07/21/18 10:00 Constitutional: Yes: Calm Eyes: Yes: Conjunctiva Clear HENT: Yes: Atraumatic Neck: Yes: Supple Cardiovascular: Yes: S1, S2 Respiratory: Yes: CTA Bilaterally Gastrointestinal: Yes: Soft Genitourinary: Yes: WNL Musculoskeletal: Yes: WNL Edema: No Neurological: Yes: Oriented Psychiatric: Yes: Oriented Labs: CBC, BMP 07/21/18 05:30 07/21/18 05:30 INR, PTT INR 0.95 (0.83-1.09) 07/18/18 11:00 Problem List - Problems (1) GIB (gastrointestinal bleeding) Code(s): K92.2 - GASTROINTESTINAL HEMORRHAGE, UNSPECIFIED (2) Anemia Code(s): D64.9 - ANEMIA, UNSPECIFIED Qualifiers: Anemia type: unspecified type Qualified Code(s): D64.9 - Anemia, unspecified (3) CKD (chronic kidney disease) Code(s): N18.9 - CHRONIC KIDNEY DISEASE, UNSPECIFIED Qualifiers: Chronic kidney disease stage: unspecified stage Qualified Code(s): N18.9 - Chronic kidney disease, unspecified (4) HTN (hypertension) Code(s): I10 - ESSENTIAL (PRIMARY) HYPERTENSION Qualifiers: Hypertension type: unspecified Qualified Code(s): I10 - Essential (primary ) hypertension Assessment/Plan Current Medications Generic Name Dose Route Start Last Admin Trade Name Freq PRN Reason Stop Dose Admin Amlodipine Besylate 10 mg 07/20/18 12:15 07/21/18 09:40 Norvasc - PO 10 mg DAILY [facility] Administration Escitalopram Oxalate 20 mg 07/21/18 10:00 07/21/18 09:40 Lexapro - PO 20 mg DAILY [facility] Administration Dextrose 1,000 mls @ 60 mls/hr 07/21/18 08:00 07/21/18 09:00 D5w - IV 60 mls/hr ASDIR [facility] Administration Levothyroxine Sodium 100 mcg 07/22/18 07:00 Synthroid - PO DAILY@0700 [facility] Metoprolol Succinate 25 mg 07/20/18 12:15 07/21/18 09:40 Toprol Xl - PO 25 mg DAILY [facility] Administration Pantoprazole Sodium 40 mg 07/21/18 22:00 Protonix Iv IVPB BID [facility] Potassium Chloride 40 meq 07/21/18 20:00 K-Dur - PO 07/21/18 20:01 ONCE ONE Tamsulosin HCl 0.4 mg 07/21/18 08:30 07/21/18 08:04 Flomax - PO 0.4 mg DAILY@0830 [facility] Administration Impression 1. CKD 2. right renal cyst 3. toe ulcer 4. hypothryoid 5. dementia 6. parkinsons 7. HTN 8. gout 9. uremia 10. anemia 11. GI bleed 12. LUCERO 13. resp failure Plan - replace potassium - change fluids to d5w, discussed with ICU - monitor sodium - monitor bun - pt refusing endoscopy - gi bleed contributing to elevated BUN - monitor urine output Dr John
--- NOTE | 2018-07-21 18:56 | CON.PSY ---
Psychiatry Consult Chief Complaint: Patient seen for Psych eval for Capacity for GI procedure. Came in with GI bleed and was transfused. Symptoms: reports: Anhedonia - Previous Psychiatric Treatment Outpatient: None Inpatient: None - Previous Substance Abuse Treatment Outpatient: None Inpatient: None - Current Medications Current Medications: Active Medications Amlodipine Besylate (Norvasc -) 10 mg PO DAILY [facility] Last Admin: 07/21/18 09:40 Dose: 10 mg Escitalopram Oxalate (Lexapro -) 20 mg PO DAILY [facility] Last Admin: 07/21/18 09:40 Dose: 20 mg Dextrose (D5w -) 1,000 mls @ 60 mls/hr IV ASDIR [facility] Last Admin: 07/21/18 09:00 Dose: 60 mls/hr Levothyroxine Sodium (Synthroid -) 100 mcg PO DAILY@0700 [facility] Metoprolol Succinate (Toprol Xl -) 25 mg PO DAILY [facility] Last Admin: 07/21/18 09:40 Dose: 25 mg Pantoprazole Sodium (Protonix Iv) 40 mg IVPB BID [facility] Potassium Chloride (K-Dur -) 40 meq PO ONCE ONE Stop: 07/21/18 20:01 Tamsulosin HCl (Flomax -) 0.4 mg PO DAILY@0830 [facility] Last Admin: 07/21/18 08:04 Dose: 0.4 mg - Allergies Allergies: Allergies Allergy/AdvReac Type Severity Reaction Status Date / Time No Known Allergies Allergy Verified 05/27/18 17:34 - Current Living Status Usual Living Arrangement: Alone - Current Mental Status Evaluation Appearance: Disheveled Attitude: Cooperative - Mood Mood: Euthymic - Speech/Language Expressive: Coherent - Psychomotor Activity Psychomotor Activity: Slowed - Thought Process Thought Process: Intact - Thought Content Hallucinations: Absent Delusions: Absent - Self Perception Self Perception: No Impairment - Cognition Attention: Alert Memory, Immediate Recall: Intact Memory, Short Term: 2/3 Memory, Remote with Promptin/3 - Concentration Serial Sevens Intact: No Simple Calculations Intact: Yes - Abstraction Proverb Interpretation: Intact Judgement: Intact - Insight Insight: Impaired - Impulse Control Impulse Control: Good Control - Suicidal Ideation Suicidal Ideation: No - Homicidal Ideation Homicidal Ideation: No Assessment/Plan 1) Patient has the functional capacity to make decisions at this time.
--- NOTE | 2018-07-21 19:40 | PN.GI ---
GI Progress Note Subjective: No acute events No overt bleeding Patient awake Deemed competent to make decisions by psych - Objective Vital Signs: Vital Signs Temperature 98.4 F 07/21/18 18:00 Pulse Rate 51 L 07/21/18 18:00 Respiratory Rate 12 07/21/18 18:00 Blood Pressure 108/61 07/21/18 18:00 O2 Sat by Pulse Oximetry (%) 100 07/21/18 10:00 Labs: CBC, BMP 07/21/18 05:30 07/21/18 05:30 INR, PTT INR 0.95 (0.83-1.09) 07/18/18 11:00 Problem List - Problems (1) GIB (gastrointestinal bleeding) Assessment/Plan: Again refusing EGD for further evaluation of the episodic GI bleeding. I spoke to Dr. Guerrero earlier today regarding Ms. Colon' decision. Unclear what the goals are at this time. A clear, definitive plan will need to be made regarding the future of her care. ? hospice. consider ethics evaluation. Clear liquids Monitor H/H and for overt bleeding Code(s): K92.2 - GASTROINTESTINAL HEMORRHAGE, UNSPECIFIED
[2018-07-21] MEDS: PANTOPRAZOLE SODIUM 40 MG VIAL IVPB SCH (21:29)
[2018-07-22] MEDS: DEXTROSE 5%-WATER - 1,000 ML IV SCH ×3 (00:15→16:47)
[2018-07-22] MEDS: LEVOTHYROXINE NA 100 MCG TABLET (FP) PO SCH (06:11)
[2018-07-22 07:50] LABS: BASO % 0.7 % (0-2.0); EOS % 3.4 % (0-4.5); HEMATOCRIT 31.2 % (32.4-45.2); HEMOGLOBIN 10.6 GM/dL (10.7-15.3); LYMPH % 8.9 % (8-40); MCH 29.8 pg (25.7-33.7); MCHC 33.8 g/dl (32.0-36.0); MEAN CELL VOLUME 88.3 fl (80-96); MEAN PLT VOLUME 7.6 fl (7.5-11.1); MONO % 5.4 % (3.8-10.2); NEUT % 81.6 % (42.8-82.8); PLATELET COUNT 462 K/MM3 (134-434); RBC 3.54 M/mm3 (3.60-5.2); RDW 18.4 % (11.6-15.6)
[2018-07-22] MEDS: TAMSULOSIN HCL 0.4 MG CAP PO SCH (08:08)
[2018-07-22 08:15] LABS: ALBUMIN 2.5 g/dl (3.4-5.0); BILIRUBIN,TOTAL 0.8 mg/dL (0.2-1); CALCIUM 8.4 mg/dL (8.5-10.1); CREATININE 2.1 mg/dL (0.55-1.3); MAGNESIUM 2.1 mg/dL (1.8-2.4); PHOSPHOROUS 3.7 mg/dL (2.5-4.9); POTASSIUM 3.8 mmol/L (3.5-5.1); TOT PROT 5.7 g/dl (6.4-8.2)
[2018-07-22] MEDS: metoPROLOL SUCCINATE 25 MG TAB.SR.24H (FP) PO SCH (10:29)
[2018-07-22] MEDS: amLODIPine BESYLATE 10 MG TABLET (FP) PO SCH (10:30)
[2018-07-22] MEDS: ESCITALOPRAM OXALATE 20 MG TABLET (FP) PO SCH (10:30)
[2018-07-22] MEDS: PANTOPRAZOLE SODIUM 40 MG VIAL IVPB SCH ×2 (10:30→22:19)
--- NOTE | 2018-07-22 11:42 | PN ---
Progress Note, Physician Chief Complaint: patient on clear liquid diet h/h stable BUN is elevated but trending down doesnot want EGD spoke to the patient about advance directives and about EGD she said she hears me but at this time doesnot want to decide seen by psych and competent to make decision - Current Medication List Current Medications: Active Medications Amlodipine Besylate (Norvasc -) 10 mg PO DAILY [facility] Last Admin: 07/22/18 10:30 Dose: 10 mg Escitalopram Oxalate (Lexapro -) 20 mg PO DAILY [facility] Last Admin: 07/22/18 10:30 Dose: 20 mg Dextrose (D5w -) 1,000 mls @ 60 mls/hr IV ASDIR [facility] Last Admin: 07/22/18 06:06 Dose: Not Given Levothyroxine Sodium (Synthroid -) 100 mcg PO DAILY@0700 [facility] Last Admin: 07/22/18 06:11 Dose: 100 mcg Metoprolol Succinate (Toprol Xl -) 25 mg PO DAILY [facility] Last Admin: 07/22/18 10:29 Dose: 25 mg Pantoprazole Sodium (Protonix Iv) 40 mg IVPB BID [facility] Last Admin: 07/22/18 10:30 Dose: 40 mg Tamsulosin HCl (Flomax -) 0.4 mg PO DAILY@0830 [facility] Last Admin: 07/22/18 08:08 Dose: 0.4 mg - Objective Vital Signs: Vital Signs Temperature 98 F 07/22/18 06:00 Pulse Rate 57 L 07/22/18 06:00 Respiratory Rate 15 07/22/18 06:00 Blood Pressure 154/70 07/22/18 06:00 O2 Sat by Pulse Oximetry (%) 99 07/21/18 21:00 Constitutional: Yes: Calm, Thin Cardiovascular: Yes: Regular Rate and Rhythm, S1, S2 Respiratory: Yes: CTA Bilaterally Gastrointestinal: Yes: Normal Bowel Sounds, Soft Edema: No Neurological: Yes: Alert Labs: CBC, BMP 07/22/18 06:43 07/22/18 06:43 INR, PTT INR 0.95 (0.83-1.09) 07/18/18 11:00 Problem List - Problems (1) GIB (gastrointestinal bleeding) Assessment/Plan: h/h stable- clear liquid diet and monitor bun and h/h iv ppi bid palliative to see her today, psych deemed her competent to make decision elevated bun secondary to GI bleed Code(s): K92.2 - GASTROINTESTINAL HEMORRHAGE, UNSPECIFIED (2) Anemia Assessment/Plan: stool occult recheck again and still positive iv ppi bid trend cbc currently stable clear liquid diet Code(s): D64.9 - ANEMIA, UNSPECIFIED Qualifiers: Anemia type: unspecified type Qualified Code(s): D64.9 - Anemia, unspecified (3) Hypothyroid Assessment/Plan: tsh elevated synthroid dose increased iv for now Code(s): E03.9 - HYPOTHYROIDISM, UNSPECIFIED (4) CKD (chronic kidney disease) Assessment/Plan: creatinine is stable inc bun is secondary to GIB Code(s): N18.9 - CHRONIC KIDNEY DISEASE, UNSPECIFIED Qualifiers: Chronic kidney disease stage: unspecified stage Qualified Code(s): N18.9 - Chronic kidney disease, unspecified (5) Hypernatremia Assessment/Plan: na is better today on d5w fluids Code(s): E87.0 - HYPEROSMOLALITY AND HYPERNATREMIA Assessment/Plan placed call out to Dr barboza as now patient is considering EGD after speaking with palliative team
--- NOTE | 2018-07-22 12:09 | PN ---
Progress Note (short form) - Note Progress Note: i was in room with Molly castillo and patient said she is ok with EGD on wednesday will keep on clear liquid for possible EGD on wednesday spoke to OSVALDO robertson plan Problem List - Problems (1) GIB (gastrointestinal bleeding) Code(s): K92.2 - GASTROINTESTINAL HEMORRHAGE, UNSPECIFIED (2) Anemia Code(s): D64.9 - ANEMIA, UNSPECIFIED Qualifiers: Anemia type: unspecified type Qualified Code(s): D64.9 - Anemia, unspecified (3) Hypothyroid Code(s): E03.9 - HYPOTHYROIDISM, UNSPECIFIED (4) CKD (chronic kidney disease) Code(s): N18.9 - CHRONIC KIDNEY DISEASE, UNSPECIFIED Qualifiers: Chronic kidney disease stage: unspecified stage Qualified Code(s): N18.9 - Chronic kidney disease, unspecified (5) Hypernatremia Code(s): E87.0 - HYPEROSMOLALITY AND HYPERNATREMIA
[2018-07-22] MEDS ORDERED: POTASSIUM CHLORIDE ORAL LIQUID 20 MEQ/15 ML PO ONE (12:40)
--- NOTE | 2018-07-22 12:41 | PN ---
Progress Note, Physician History of Present Illness: Pt seen and examined at bedside. She denies shortness of breath. - Current Medication List Current Medications: Active Medications Amlodipine Besylate (Norvasc -) 10 mg PO DAILY [facility] Last Admin: 07/22/18 10:30 Dose: 10 mg Escitalopram Oxalate (Lexapro -) 20 mg PO DAILY [facility] Last Admin: 07/22/18 10:30 Dose: 20 mg Dextrose (D5w -) 1,000 mls @ 60 mls/hr IV ASDIR [facility] Last Admin: 07/22/18 06:06 Dose: Not Given Levothyroxine Sodium (Synthroid -) 100 mcg PO DAILY@0700 [facility] Last Admin: 07/22/18 06:11 Dose: 100 mcg Metoprolol Succinate (Toprol Xl -) 25 mg PO DAILY [facility] Last Admin: 07/22/18 10:29 Dose: 25 mg Pantoprazole Sodium (Protonix Iv) 40 mg IVPB BID [facility] Last Admin: 07/22/18 10:30 Dose: 40 mg Tamsulosin HCl (Flomax -) 0.4 mg PO DAILY@0830 [facility] Last Admin: 07/22/18 08:08 Dose: 0.4 mg - Objective Vital Signs: Vital Signs Temperature 98 F 07/22/18 06:00 Pulse Rate 57 L 07/22/18 06:00 Respiratory Rate 15 07/22/18 06:00 Blood Pressure 154/70 07/22/18 06:00 O2 Sat by Pulse Oximetry (%) 99 07/21/18 21:00 Constitutional: Yes: Calm Eyes: Yes: Conjunctiva Clear HENT: Yes: Atraumatic Cardiovascular: Yes: S1, S2 Respiratory: Yes: CTA Bilaterally Gastrointestinal: Yes: Soft Genitourinary: Yes: Incontinence Musculoskeletal: Yes: WNL Edema: No Neurological: Yes: Oriented Psychiatric: Yes: Oriented Labs: CBC, BMP 07/22/18 06:43 07/22/18 06:43 INR, PTT INR 0.95 (0.83-1.09) 07/18/18 11:00 Problem List - Problems (1) GIB (gastrointestinal bleeding) Code(s): K92.2 - GASTROINTESTINAL HEMORRHAGE, UNSPECIFIED (2) Anemia Code(s): D64.9 - ANEMIA, UNSPECIFIED Qualifiers: Anemia type: unspecified type Qualified Code(s): D64.9 - Anemia, unspecified (3) CKD (chronic kidney disease) Code(s): N18.9 - CHRONIC KIDNEY DISEASE, UNSPECIFIED Qualifiers: Chronic kidney disease stage: unspecified stage Qualified Code(s): N18.9 - Chronic kidney disease, unspecified (4) HTN (hypertension) Code(s): I10 - ESSENTIAL (PRIMARY) HYPERTENSION Qualifiers: Hypertension type: unspecified Qualified Code(s): I10 - Essential (primary ) hypertension Assessment/Plan Current Medications Generic Name Dose Route Start Last Admin Trade Name Armani PRN Reason Stop Dose Admin Amlodipine Besylate 10 mg 07/22/18 10:00 07/22/18 10:30 Norvasc - PO 10 mg DAILY [facility] Administration Escitalopram Oxalate 20 mg 07/22/18 10:00 07/22/18 10:30 Lexapro - PO 20 mg DAILY [facility] Administration Dextrose 1,000 mls @ 60 mls/hr 07/22/18 03:37 07/22/18 06:06 D5w - IV Not Given ASDIR LINNEA Levothyroxine Sodium 100 mcg 07/22/18 07:00 07/22/18 06:11 Synthroid - PO 100 mcg DAILY@0700 LINNEA Administration Metoprolol Succinate 25 mg 07/22/18 10:00 07/22/18 10:29 Toprol Xl - PO 25 mg DAILY [facility]NE[facility] Administration Pantoprazole Sodium 40 mg 07/21/18 22:00 07/22/18 10:30 Protonix Iv IVPB 40 mg BID LINNEA Administration Tamsulosin HCl 0.4 mg 07/22/18 08:30 07/22/18 08:08 Flomax - PO 0.4 mg DAILY@0830 LIN[facility]A Administration Impression 1. CKD 2. right renal cyst 3. toe ulcer 4. hypothryoid 5. dementia 6. parkinsons 7. HTN 8. gout 9. uremia 10. anemia 11. GI bleed 12. LUCERO 13. resp failure Plan - replace potassium - PO bicarb - cont fluids - can stop fluids if she tolerated clears - pending endoscopy Dr John
--- NOTE | 2018-07-22 14:08 | PN ---
Progress Note, Physician History of Present Illness: PULMONARY ALERT,NO DISTRESS,-SOB,-CP - Current Medication List Current Medications: Active Medications Amlodipine Besylate (Norvasc -) 10 mg PO DAILY [facility] Last Admin: 07/22/18 10:30 Dose: 10 mg Escitalopram Oxalate (Lexapro -) 20 mg PO DAILY [facility] Last Admin: 07/22/18 10:30 Dose: 20 mg Dextrose (D5w -) 1,000 mls @ 60 mls/hr IV ASDIR [facility] Last Admin: 07/22/18 06:06 Dose: Not Given Levothyroxine Sodium (Synthroid -) 100 mcg PO DAILY@0700 [facility] Last Admin: 07/22/18 06:11 Dose: 100 mcg Metoprolol Succinate (Toprol Xl -) 25 mg PO DAILY [facility] Last Admin: 07/22/18 10:29 Dose: 25 mg Pantoprazole Sodium (Protonix Iv) 40 mg IVPB BID [facility] Last Admin: 07/22/18 10:30 Dose: 40 mg Sodium Bicarbonate (Sodium Bicarbonate -) 650 mg PO TID [facility] Tamsulosin HCl (Flomax -) 0.4 mg PO DAILY@0830 [facility] Last Admin: 07/22/18 08:08 Dose: 0.4 mg - Objective Vital Signs: Vital Signs Temperature 98 F 07/22/18 06:00 Pulse Rate 57 L 07/22/18 06:00 Respiratory Rate 15 07/22/18 06:00 Blood Pressure 154/70 07/22/18 06:00 O2 Sat by Pulse Oximetry (%) 99 07/21/18 21:00 Labs: CBC, BMP 07/22/18 06:43 07/22/18 06:43 INR, PTT INR 0.95 (0.83-1.09) 07/18/18 11:00 Problem List - Problems (1) GIB (gastrointestinal bleeding) Code(s): K92.2 - GASTROINTESTINAL HEMORRHAGE, UNSPECIFIED (2) Anemia Code(s): D64.9 - ANEMIA, UNSPECIFIED Qualifiers: Anemia type: unspecified type Qualified Code(s): D64.9 - Anemia, unspecified (3) CHF (congestive heart failure) Code(s): I50.9 - HEART FAILURE, UNSPECIFIED (4) CKD (chronic kidney disease) Code(s): N18.9 - CHRONIC KIDNEY DISEASE, UNSPECIFIED Qualifiers: Chronic kidney disease stage: unspecified stage Qualified Code(s): N18.9 - Chronic kidney disease, unspecified (5) Cellulitis of fourth toe of left foot Code(s): L03.032 - CELLULITIS OF LEFT TOE (6) Chronic renal failure Code(s): N18.9 - CHRONIC KIDNEY DISEASE, UNSPECIFIED Qualifiers: Chronic kidney disease stage: unspecified stage Qualified Code(s): N18.9 - Chronic kidney disease, unspecified (7) GI bleed Code(s): K92.2 - GASTROINTESTINAL HEMORRHAGE, UNSPECIFIED Qualifiers: GI bleed type/associated pathology: unspecified gastrointestinal hemorrhage type Qualified Code(s): K92.2 - Gastrointestinal hemorrhage, unspecified (8) Hyperkalemia Code(s): E87.5 - HYPERKALEMIA (9) Lactic acid acidosis Code(s): E87.2 - ACIDOSIS (10) Metabolic acidosis Code(s): E87.2 - ACIDOSIS (11) Renal failure (ARF), acute on chronic Code(s): N17.9 - ACUTE KIDNEY FAILURE, UNSPECIFIED; N18.9 - CHRONIC KIDNEY DISEASE, UNSPECIFIED Qualifiers: Acute renal failure type: unspecified Chronic kidney disease stage: unspecified stage Qualified Code(s): N17.9 - Acute kidney failure, unspecified ; N18.9 - Chronic kidney disease, unspecified Assessment/Plan ASSESSMENT AND PLAN: Recurrent GI Bleed Acute Blood Loss Anemia Acute Respiratory Failure HTN DM CKD Hypothyroidism Parkinsons Dementia - monitor H/H - transfuse as needed - protonix - PO per GI - IVF - replete lytes - monitor urine output, creatinine - DVT prophylaxis DR BUSTOS
[2018-07-22 14:51] VITALS: BMI 20.5
[2018-07-22] MEDS: SODIUM BICARBONATE 650 MG TABLET PO SCH ×2 (16:45→22:19)
--- NOTE | 2018-07-22 17:03 | PN.GI ---
GI Progress Note Subjective: Per notes and discussion with Dr. Post, Ms. Colon was willing to have EGD on wednesday, no today Dark BM x 1 per nurse - Objective Vital Signs: Vital Signs Temperature 97.6 F 07/22/18 14:12 Pulse Rate 51 L 07/22/18 14:12 Respiratory Rate 18 07/22/18 14:12 Blood Pressure 156/78 07/22/18 14:12 O2 Sat by Pulse Oximetry (%) 99 07/21/18 21:00 Constitutional: Calm Eyes: No: Sclera Icterus Cardiovascular: Yes: Regular Rate and Rhythm, Murmur Respiratory: Yes: CTA Bilaterally Gastrointestinal Inspection: No: Distention ...Auscultate: Yes: Normoactive Bowel Sounds ...Palpate: Yes: Soft. No: Hepatomegaly, Splenomegaly, Tenderness Edema: No (No LE edema) Neurological: Yes: Alert Labs: CBC, BMP 07/22/18 06:43 07/22/18 06:43 INR, PTT INR 0.95 (0.83-1.09) 07/18/18 11:00 Hepatic Panel Total Bilirubin 0.8 mg/dL (0.2-1) 07/22/18 06:43 AST 16 U/L (15-37) 07/22/18 06:43 ALT 12 U/L (13-61) L 07/22/18 06:43 Alkaline Phosphatase 65 U/L (45-117) 07/22/18 06:43 Albumin 2.5 g/dl (3.4-5.0) L 07/22/18 06:43 Problem List - Problems (1) GIB (gastrointestinal bleeding) Assessment/Plan: Had discussion with Ms. Colon. Again discussed EGD in order to evaluate her upper GI bleeding. We discussed potential risks of the procedure like but not limited to bleeding, perfroation requiring surgery to repair, infection, sedation medication effects all of whiuch could be potentially life threatening. She has agreed to the procedure. She was deeemed competent by psychiatry yesterday. She was unable to sign the consent given her finger deformities, therefore verbal consent was documented. For now: Clear liquids BID PPI Monitor H/H and for active bleeding NPO after midnight on Wednesday Code(s): K92.2 - GASTROINTESTINAL HEMORRHAGE, UNSPECIFIED
[2018-07-23] MEDS: DEXTROSE 5%-WATER - 1,000 ML IV SCH ×2 (06:13→09:19)
[2018-07-23] MEDS: LEVOTHYROXINE NA 100 MCG TABLET (FP) PO SCH (06:14)
[2018-07-23] MEDS: SODIUM BICARBONATE 650 MG TABLET PO SCH ×3 (06:14→22:02)
[2018-07-23] MEDS: TAMSULOSIN HCL 0.4 MG CAP PO SCH (08:57)
[2018-07-23] MEDS: amLODIPine BESYLATE 10 MG TABLET (FP) PO SCH (09:03)
[2018-07-23] MEDS: ESCITALOPRAM OXALATE 20 MG TABLET (FP) PO SCH (09:03)
[2018-07-23] MEDS: metoPROLOL SUCCINATE 25 MG TAB.SR.24H (FP) PO SCH (09:04)
[2018-07-23] MEDS: PANTOPRAZOLE SODIUM 40 MG VIAL IVPUSH SCH ×2 (09:16→22:02)
[2018-07-23 10:08] LABS: BASO % 0.9 % (0-2.0); EOS % 4.3 % (0-4.5); HEMATOCRIT 36.6 % (32.4-45.2); HEMOGLOBIN 12.1 GM/dL (10.7-15.3); LYMPH % 11.7 % (8-40); MCH 29.9 pg (25.7-33.7); MCHC 32.9 g/dl (32.0-36.0); MEAN CELL VOLUME 90.8 fl (80-96); MEAN PLT VOLUME 7.9 fl (7.5-11.1); MONO % 5.7 % (3.8-10.2); NEUT % 77.4 % (42.8-82.8); PLATELET COUNT 423 K/MM3 (134-434); RBC 4.03 M/mm3 (3.60-5.2); RDW 18.6 % (11.6-15.6); WHITE BLOOD COUNT 8.7 K/mm3 (4.0-10.0)
--- NOTE | 2018-07-23 10:48 | PN ---
Progress Note, Physician Chief Complaint: AWAKE ALERT EVENTS AND NOTES REVIEWED EGD WEDNESDAY PENDING - Current Medication List Current Medications: Active Medications Amlodipine Besylate (Norvasc -) 10 mg PO DAILY [facility] Last Admin: 07/23/18 09:03 Dose: 10 mg Escitalopram Oxalate (Lexapro -) 20 mg PO DAILY [facility] Last Admin: 07/23/18 09:03 Dose: 20 mg Dextrose (D5w -) 1,000 mls @ 60 mls/hr IV ASDIR [facility] Last Admin: 07/23/18 09:19 Dose: 60 mls/hr Levothyroxine Sodium (Synthroid -) 100 mcg PO DAILY@0700 [facility] Last Admin: 07/23/18 06:14 Dose: 100 mcg Metoprolol Succinate (Toprol Xl -) 25 mg PO DAILY [facility] Last Admin: 07/23/18 09:04 Dose: 25 mg Pantoprazole Sodium (Protonix Iv) 40 mg IVPUSH BID [facility] Last Admin: 07/23/18 09:16 Dose: 40 mg Sodium Bicarbonate (Sodium Bicarbonate -) 650 mg PO TID [facility] Last Admin: 07/23/18 06:14 Dose: 650 mg Tamsulosin HCl (Flomax -) 0.4 mg PO DAILY@0830 [facility] Last Admin: 07/23/18 08:57 Dose: 0.4 mg - Objective Vital Signs: Vital Signs Temperature 98.3 F 07/23/18 10:00 Pulse Rate 54 L 07/23/18 10:00 Respiratory Rate 18 07/23/18 10:00 Blood Pressure 160/68 07/23/18 10:00 O2 Sat by Pulse Oximetry (%) 100 07/22/18 21:00 Constitutional: Yes: Mild Distress Eyes: Yes: WNL HENT: Yes: WNL Neck: Yes: WNL Cardiovascular: Yes: Regular Rate and Rhythm Respiratory: Yes: CTA Bilaterally Gastrointestinal: Yes: Soft Genitourinary: Yes: Incontinence Musculoskeletal: Yes: Muscle Weakness Edema: No Integumentary: Yes: Rash Wound/Incision: Yes: Dressing Dry and Intact Neurological: Yes: Pre-Existing Deficit ...Motor Strength: LLE, RLE Labs: CBC, BMP 07/23/18 09:53 INR, PTT INR 0.95 (0.83-1.09) 07/18/18 11:00 Problem List - Problems (1) GIB (gastrointestinal bleeding) Code(s): K92.2 - GASTROINTESTINAL HEMORRHAGE, UNSPECIFIED (2) Hypernatremia Code(s): E87.0 - HYPEROSMOLALITY AND HYPERNATREMIA (3) Anemia Code(s): D64.9 - ANEMIA, UNSPECIFIED Qualifiers: Anemia type: unspecified type Qualified Code(s): D64.9 - Anemia, unspecified (4) Asymptomatic bacteriuria Code(s): R82.71 - BACTERIURIA (5) CKD (chronic kidney disease) Code(s): N18.9 - CHRONIC KIDNEY DISEASE, UNSPECIFIED Qualifiers: Chronic kidney disease stage: unspecified stage Qualified Code(s): N18.9 - Chronic kidney disease, unspecified (6) COPD (chronic obstructive pulmonary disease) Code(s): J44.9 - CHRONIC OBSTRUCTIVE PULMONARY DISEASE, UNSPECIFIED Assessment/Plan EGD WEDNESDAY PPI CONTINUED GI EVAL FALL RISKS MONITOR LABS CKD ANEMIA STABLE BRADYCARDIA ON B-BLOCKERS AND CA-BLOCKERS WILL F/U CLOSELY
--- NOTE | 2018-07-23 10:52 | PN ---
Progress Note, Physician History of Present Illness: PULMONARY ALERT,NO DISTRESS,-SOB - Current Medication List Current Medications: Active Medications Amlodipine Besylate (Norvasc -) 10 mg PO DAILY [facility] Last Admin: 07/23/18 09:03 Dose: 10 mg Escitalopram Oxalate (Lexapro -) 20 mg PO DAILY [facility] Last Admin: 07/23/18 09:03 Dose: 20 mg Dextrose (D5w -) 1,000 mls @ 60 mls/hr IV ASDIR [facility] Last Admin: 07/23/18 09:19 Dose: 60 mls/hr Levothyroxine Sodium (Synthroid -) 100 mcg PO DAILY@0700 [facility] Last Admin: 07/23/18 06:14 Dose: 100 mcg Metoprolol Succinate (Toprol Xl -) 25 mg PO DAILY [facility] Last Admin: 07/23/18 09:04 Dose: 25 mg Pantoprazole Sodium (Protonix Iv) 40 mg IVPUSH BID [facility] Last Admin: 07/23/18 09:16 Dose: 40 mg Sodium Bicarbonate (Sodium Bicarbonate -) 650 mg PO TID [facility] Last Admin: 07/23/18 06:14 Dose: 650 mg Tamsulosin HCl (Flomax -) 0.4 mg PO DAILY@0830 [facility] Last Admin: 07/23/18 08:57 Dose: 0.4 mg - Objective Vital Signs: Vital Signs Temperature 98.3 F 07/23/18 10:00 Pulse Rate 54 L 07/23/18 10:00 Respiratory Rate 18 07/23/18 10:00 Blood Pressure 160/68 07/23/18 10:00 O2 Sat by Pulse Oximetry (%) 100 07/22/18 21:00 Constitutional: Yes: Calm, Thin Eyes: Yes: WNL HENT: Yes: WNL Neck: Yes: WNL Cardiovascular: Yes: Regular Rate and Rhythm, S1, S2 Respiratory: Yes: CTA Bilaterally Gastrointestinal: Yes: Normal Bowel Sounds, Soft Extremities: Yes: WNL Edema: No Labs: CBC, BMP 07/23/18 09:53 Problem List - Problems (1) GIB (gastrointestinal bleeding) Code(s): K92.2 - GASTROINTESTINAL HEMORRHAGE, UNSPECIFIED (2) Anemia Code(s): D64.9 - ANEMIA, UNSPECIFIED Qualifiers: Qualified Code(s): D64.9 - Anemia, unspecified (3) CHF (congestive heart failure) Code(s): I50.9 - HEART FAILURE, UNSPECIFIED (4) CKD (chronic kidney disease) Code(s): N18.9 - CHRONIC KIDNEY DISEASE, UNSPECIFIED Qualifiers: Qualified Code(s): N18.9 - Chronic kidney disease, unspecified (5) Cellulitis of fourth toe of left foot Code(s): L03.032 - CELLULITIS OF LEFT TOE (6) Chronic renal failure Code(s): N18.9 - CHRONIC KIDNEY DISEASE, UNSPECIFIED Qualifiers: Qualified Code(s): N18.9 - Chronic kidney disease, unspecified (7) GI bleed Code(s): K92.2 - GASTROINTESTINAL HEMORRHAGE, UNSPECIFIED Qualifiers: Qualified Code(s): K92.2 - Gastrointestinal hemorrhage, unspecified (8) Hyperkalemia Code(s): E87.5 - HYPERKALEMIA (9) Lactic acid acidosis Code(s): E87.2 - ACIDOSIS (10) Metabolic acidosis Code(s): E87.2 - ACIDOSIS (11) Renal failure (ARF), acute on chronic Code(s): N17.9 - ACUTE KIDNEY FAILURE, UNSPECIFIED; N18.9 - CHRONIC KIDNEY DISEASE, UNSPECIFIED Qualifiers: Qualified Code(s): N17.9 - Acute kidney failure, unspecified; N18.9 - Chronic kidney disease, unspecified Assessment/Plan ASSESSMENT AND PLAN: Recurrent GI Bleed stable Acute Blood Loss Anemia S/P Acute Respiratory Failure HTN DM CKD Hypothyroidism Parkinsons Dementia - monitor H/H - protonix - IVF - monitor urine output, creatinine - DVT prophylaxis DR BUSTOS
--- NOTE | 2018-07-23 11:17 | PN ---
Progress Note (short form) - Note Progress Note: RENAL Pt awake and alert c/o being tired all the time Last Vital Signs Temp Pulse Resp BP Pulse Ox 98.3 F 54 L 18 160/68 100 07/23/18 10:00 07/23/18 10:00 07/23/18 10:00 07/23/18 10:00 07/22/18 21:00 lungs clear cvs ss2 rr abd soft ext no edema neuro confused CBC, BMP 07/23/18 09:53 Current Medications Generic Name Dose Route Start Last Admin Trade Name Armani PRN Reason Stop Dose Admin Amlodipine Besylate 10 mg 07/22/18 10:00 07/23/18 09:03 Norvasc - PO 10 mg DAILY [facility] Administration Escitalopram Oxalate 20 mg 07/22/18 10:00 07/23/18 09:03 Lexapro - PO 20 mg DAILY [facility] Administration Dextrose 1,000 mls @ 60 mls/hr 07/22/18 03:37 07/23/18 09:19 D5w - IV 60 mls/hr ASDIR LINNEA Administration Levothyroxine Sodium 100 mcg 07/22/18 07:00 07/23/18 06:14 Synthroid - PO 100 mcg DAILY@0700 LINNEA Administration Metoprolol Succinate 25 mg 07/22/18 10:00 07/23/18 09:04 Toprol Xl - PO 25 mg DAILY [facility] Administration Pantoprazole Sodium 40 mg 07/23/18 09:11 07/23/18 09:16 Protonix Iv IVPUSH 40 mg BID [facility]NEA Administration Sodium Bicarbonate 650 mg 07/22/18 14:00 07/23/18 06:14 Sodium Bicarbonate - PO 650 mg TID [facility]NEA Administration Tamsulosin HCl 0.4 mg 07/22/18 08:30 07/23/18 08:57 Flomax - PO 0.4 mg DAILY@0830 [facility]A Administration Impression 1. CKD 2. right renal cyst 3. toe ulcer 4. hypothryoid 5. dementia 6. parkinsons 7. HTN 8. gout 9. uremia 10. anemia 11. GI bleed 12. LUCERO 13. resp failure Plan continue bicarb awaiting endoscopy BUN has improved continue fluids obtain urine analysis MV
[2018-07-23 11:40] LABS: ALBUMIN 2.6 g/dl (3.4-5.0); BILIRUBIN,TOTAL 0.7 mg/dL (0.2-1); CALCIUM 8.3 mg/dL (8.5-10.1); CREATININE 2.1 mg/dL (0.55-1.3); POTASSIUM 3.6 mmol/L (3.5-5.1); TOT PROT 6.1 g/dl (6.4-8.2)
[2018-07-23 13:05] LABS: PLATELET ESTIMATE ADEQUATE
[2018-07-23 14:17] LABS: EPI CELLS 1.5 /HPF (0-5/HPF); HYALINE CASTS 3 /lpf (0-8); PH,URINE 5.5 (5.0-8.0); URINE APPEARANCE CLOUDY; URINE BILIRUBIN NEGATIVE (NEGATIVE); URINE COLOR YELLOW; URINE GLUCOSE (UA) NEGATIVE (NEGATIVE); URINE KETONE NEGATIVE (NEGATIVE); URINE LEUK ESTERASE 3+ (NEGATIVE); URINE NITRITE POSITIVE (NEGATIVE); URINE PROTEIN 2+ (NEGATIVE); URINE RBC 4 /hpf (0-4); URINE UROBILINOGEN 0.2 mg/dL (0.2-1.0); URINE WBC 272 /hpf (0-5)
[2018-07-23 14:21] LABS: RATIO URIN PROTEIN/URIN CREAT 4.9 MG/DL
[2018-07-24] MEDS: DEXTROSE 5%-WATER - 1,000 ML IV SCH (06:09)
[2018-07-24] MEDS: SODIUM BICARBONATE 650 MG TABLET PO SCH ×3 (06:13→21:17)
[2018-07-24] MEDS: LEVOTHYROXINE NA 100 MCG TABLET (FP) PO SCH (06:26)
[2018-07-24] MEDS: amLODIPine BESYLATE 10 MG TABLET (FP) PO SCH (09:45)
[2018-07-24] MEDS: TAMSULOSIN HCL 0.4 MG CAP PO SCH (09:45)
[2018-07-24] MEDS: ESCITALOPRAM OXALATE 20 MG TABLET (FP) PO SCH (09:45)
[2018-07-24] MEDS: metoPROLOL SUCCINATE 25 MG TAB.SR.24H (FP) PO SCH (09:45)
[2018-07-24] MEDS: PANTOPRAZOLE SODIUM 40 MG VIAL IVPUSH SCH ×2 (09:45→21:17)
--- NOTE | 2018-07-24 10:03 | PN ---
Progress Note (short form) - Note Progress Note: RENAL Pt awake and alert confused Last Vital Signs Temp Pulse Resp BP Pulse Ox 98.1 F 61 18 148/58 L 95 07/24/18 06:00 07/24/18 06:00 07/24/18 06:00 07/24/18 06:00 07/23/18 09:00 lungs clear cvs ss2 rr abd soft ext no edema neuro confused CBC, BMP 07/23/18 09:53 07/23/18 09:53 Current Medications Generic Name Dose Route Start Last Admin Trade Name Armani PRN Reason Stop Dose Admin Amlodipine Besylate 10 mg 07/22/18 10:00 07/24/18 09:45 Norvasc - PO 10 mg DAILY [facility] Administration Escitalopram Oxalate 20 mg 07/22/18 10:00 07/24/18 09:45 Lexapro - PO 20 mg DAILY [facility] Administration Dextrose 1,000 mls @ 60 mls/hr 07/22/18 03:37 07/24/18 06:09 D5w - IV 60 mls/hr ASDIR [facility]NEA Administration Levothyroxine Sodium 100 mcg 07/22/18 07:00 07/24/18 06:26 Synthroid - PO 100 mcg DAILY@0700 [facility]A Administration Metoprolol Succinate 25 mg 07/22/18 10:00 07/24/18 09:45 Toprol Xl - PO 25 mg DAILY [facility] Administration Pantoprazole Sodium 40 mg 07/23/18 09:11 07/24/18 09:45 Protonix Iv IVPUSH 40 mg BID [facility]A Administration Sodium Bicarbonate 650 mg 07/22/18 14:00 07/24/18 06:13 Sodium Bicarbonate - PO 650 mg TID [facility]NEA Administration Tamsulosin HCl 0.4 mg 07/22/18 08:30 07/24/18 09:45 Flomax - PO 0.4 mg DAILY@0830 LIN[facility]A Administration Impression 1. 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 right renal cyst 3. toe ulcer 4. hypothryoid 5. dementia 6. parkinsons 7. HTN 8. gout 9. uremia 10. anemia 11. GI bleed 12. LUCERO 13. resp failure 14 bicarb is low- probably met acidosis from lucero/ckd Plan can add bicarb to fluids awaiting endoscopy BUN has improved urine analysis suggests UTI- ?antibiotics repeat BMP MV
[2018-07-24] MEDS ORDERED: DEXTROSE 5%-WATER - 1,000 ML with SODIUM BICARBONATE 8.4% - 50 MEQ IV SCH ×2 (10:04→10:27)
[2018-07-24 10:38] LABS: ARTERIAL BLOOD GAS BASE EXCESS -9.4 meq/l (-2-2); ARTERIAL BLOOD GAS PCO2 26.6 mmHg (35-45); ARTERIAL BLOOD GAS PO2 100 mmHg (80-105); ARTERIAL BLOOD GAS pH 7.36 (7.35-7.45)
[2018-07-24 10:44] LABS: ALLENS TEST POSITIVE
[2018-07-24] MEDS: SODIUM BICARBONATE 8.4% - 50 MEQ in DEXTROSE 5%-WATER - 1,000 ML IV SCH (11:22)
--- NOTE | 2018-07-24 12:40 | PN ---
Progress Note, Physician Chief Complaint: AWAKE ALERT NAD - Current Medication List Current Medications: Active Medications Amlodipine Besylate (Norvasc -) 10 mg PO DAILY [facility] Last Admin: 07/24/18 09:45 Dose: 10 mg Escitalopram Oxalate (Lexapro -) 20 mg PO DAILY [facility] Last Admin: 07/24/18 09:45 Dose: 20 mg Sodium Bicarbonate 50 meq/ (Dextrose) 1,050 mls @ 60 mls/hr IV Q17H [facility] Last Admin: 07/24/18 11:22 Dose: 60 mls/hr Levothyroxine Sodium (Synthroid -) 100 mcg PO DAILY@0700 [facility] Last Admin: 07/24/18 06:26 Dose: 100 mcg Metoprolol Succinate (Toprol Xl -) 25 mg PO DAILY [facility] Last Admin: 07/24/18 09:45 Dose: 25 mg Pantoprazole Sodium (Protonix Iv) 40 mg IVPUSH BID [facility] Last Admin: 07/24/18 09:45 Dose: 40 mg Sodium Bicarbonate (Sodium Bicarbonate -) 650 mg PO TID [facility] Last Admin: 07/24/18 06:13 Dose: 650 mg Tamsulosin HCl (Flomax -) 0.4 mg PO DAILY@0830 [facility] Last Admin: 07/24/18 09:45 Dose: 0.4 mg - Objective Vital Signs: Vital Signs Temperature 98.2 F 07/24/18 11:26 Pulse Rate 61 07/24/18 11:26 Respiratory Rate 24 H 07/24/18 11:26 Blood Pressure 142/53 L 07/24/18 11:26 O2 Sat by Pulse Oximetry (%) 95 07/23/18 09:00 Constitutional: Yes: No Distress Eyes: Yes: WNL HENT: Yes: WNL Neck: Yes: WNL Cardiovascular: Yes: WNL Respiratory: Yes: WNL Gastrointestinal: Yes: WNL Genitourinary: Yes: WNL Musculoskeletal: Yes: Muscle Weakness Extremities: Yes: Deformity Integumentary: Yes: WNL Wound/Incision: Yes: Clean/Dry Neurological: Yes: Pre-Existing Deficit ...Motor Strength: LLE, RLE Psychiatric: Yes: WNL Labs: CBC, BMP 07/23/18 09:53 07/23/18 09:53 INR, PTT INR 0.95 (0.83-1.09) 07/18/18 11:00 Problem List - Problems (1) GIB (gastrointestinal bleeding) Code(s): K92.2 - GASTROINTESTINAL HEMORRHAGE, UNSPECIFIED (2) Hypernatremia Code(s): E87.0 - HYPEROSMOLALITY AND HYPERNATREMIA (3) Anemia Code(s): D64.9 - ANEMIA, UNSPECIFIED Qualifiers: Anemia type: unspecified type Qualified Code(s): D64.9 - Anemia, unspecified (4) Asymptomatic bacteriuria Code(s): R82.71 - BACTERIURIA (5) CKD (chronic kidney disease) Code(s): N18.9 - CHRONIC KIDNEY DISEASE, UNSPECIFIED Qualifiers: Chronic kidney disease stage: unspecified stage Qualified Code(s): N18.9 - Chronic kidney disease, unspecified (6) COPD (chronic obstructive pulmonary disease) Code(s): J44.9 - CHRONIC OBSTRUCTIVE PULMONARY DISEASE, UNSPECIFIED Assessment/Plan EGD WEDNESDAY PPI CONTINUED GI EVAL FALL RISKS MONITOR LABS CKD ANEMIA STABLE BRADYCARDIA ON B-BLOCKERS AND CA-BLOCKERS WILL F/U CLOSELY CHECK URINE C AND S
--- NOTE | 2018-07-24 13:43 | PN ---
Progress Note, Physician History of Present Illness: PULMONARY ALERT,NO DISTRESS,-SOB,+ OCC COUGH - Current Medication List Current Medications: Active Medications Amlodipine Besylate (Norvasc -) 10 mg PO DAILY [facility] Last Admin: 07/24/18 09:45 Dose: 10 mg Escitalopram Oxalate (Lexapro -) 20 mg PO DAILY [facility] Last Admin: 07/24/18 09:45 Dose: 20 mg Sodium Bicarbonate 50 meq/ (Dextrose) 1,050 mls @ 60 mls/hr IV Q17H [facility] Last Admin: 07/24/18 11:22 Dose: 60 mls/hr Levothyroxine Sodium (Synthroid -) 100 mcg PO DAILY@0700 [facility] Last Admin: 07/24/18 06:26 Dose: 100 mcg Metoprolol Succinate (Toprol Xl -) 25 mg PO DAILY [facility] Last Admin: 07/24/18 09:45 Dose: 25 mg Pantoprazole Sodium (Protonix Iv) 40 mg IVPUSH BID [facility] Last Admin: 07/24/18 09:45 Dose: 40 mg Sodium Bicarbonate (Sodium Bicarbonate -) 650 mg PO TID [facility] Last Admin: 07/24/18 06:13 Dose: 650 mg Tamsulosin HCl (Flomax -) 0.4 mg PO DAILY@0830 [facility] Last Admin: 07/24/18 09:45 Dose: 0.4 mg - Objective Vital Signs: Vital Signs Temperature 98.2 F 07/24/18 11:26 Pulse Rate 61 07/24/18 11:26 Respiratory Rate 24 H 07/24/18 11:26 Blood Pressure 142/53 L 07/24/18 11:26 O2 Sat by Pulse Oximetry (%) 95 07/23/18 09:00 Constitutional: Yes: Well Nourished, Calm Eyes: Yes: WNL HENT: Yes: WNL Neck: Yes: WNL Cardiovascular: Yes: Regular Rate and Rhythm, S1, S2 Respiratory: Yes: CTA Bilaterally Gastrointestinal: Yes: Normal Bowel Sounds, Soft Extremities: Yes: WNL Edema: No Labs: CBC, BMP 07/23/18 09:53 07/23/18 09:53 INR, PTT INR 0.95 (0.83-1.09) 07/18/18 11:00 Problem List - Problems (1) GIB (gastrointestinal bleeding) Code(s): K92.2 - GASTROINTESTINAL HEMORRHAGE, UNSPECIFIED (2) Anemia Code(s): D64.9 - ANEMIA, UNSPECIFIED Qualifiers: Anemia type: unspecified type Qualified Code(s): D64.9 - Anemia, unspecified (3) CHF (congestive heart failure) Code(s): I50.9 - HEART FAILURE, UNSPECIFIED (4) CKD (chronic kidney disease) Code(s): N18.9 - CHRONIC KIDNEY DISEASE, UNSPECIFIED Qualifiers: Chronic kidney disease stage: unspecified stage Qualified Code(s): N18.9 - Chronic kidney disease, unspecified (5) Cellulitis of fourth toe of left foot Code(s): L03.032 - CELLULITIS OF LEFT TOE (6) Chronic renal failure Code(s): N18.9 - CHRONIC KIDNEY DISEASE, UNSPECIFIED Qualifiers: Chronic kidney disease stage: unspecified stage Qualified Code(s): N18.9 - Chronic kidney disease, unspecified (7) GI bleed Code(s): K92.2 - GASTROINTESTINAL HEMORRHAGE, UNSPECIFIED Qualifiers: GI bleed type/associated pathology: unspecified gastrointestinal hemorrhage type Qualified Code(s): K92.2 - Gastrointestinal hemorrhage, unspecified (8) Hyperkalemia Code(s): E87.5 - HYPERKALEMIA (9) Lactic acid acidosis Code(s): E87.2 - ACIDOSIS (10) Metabolic acidosis Code(s): E87.2 - ACIDOSIS (11) Renal failure (ARF), acute on chronic Code(s): N17.9 - ACUTE KIDNEY FAILURE, UNSPECIFIED; N18.9 - CHRONIC KIDNEY DISEASE, UNSPECIFIED Qualifiers: Acute renal failure type: unspecified Chronic kidney disease stage: unspecified stage Qualified Code(s): N17.9 - Acute kidney failure, unspecified ; N18.9 - Chronic kidney disease, unspecified Assessment/Plan ASSESSMENT AND PLAN: Recurrent GI Bleed stable Acute Blood Loss Anemia S/P Acute Respiratory Failure HTN DM CKD Hypothyroidism Parkinsons Dementia - monitor H/H - protonix - IVF - monitor urine output, creatinine - DVT prophylaxix - sodium bicarb as per renal DR BUSTOS
[2018-07-24 14:16] LABS: EPI CELLS 3.1 /HPF (0-5/HPF); HYALINE CASTS 8 /lpf (0-8); URINE APPEARANCE TURBID; URINE BACTERIA 2577.6 /hpf (NEGATIVE); URINE BILIRUBIN NEGATIVE (NEGATIVE); URINE COLOR YELLOW; URINE GLUCOSE (UA) NEGATIVE (NEGATIVE); URINE KETONE NEGATIVE (NEGATIVE); URINE LEUK ESTERASE 3+ (NEGATIVE); URINE NITRITE NEGATIVE (NEGATIVE); URINE PROTEIN 2+ (NEGATIVE); URINE RBC 3 /hpf (0-4); URINE UROBILINOGEN 0.2 mg/dL (0.2-1.0); URINE WBC 405 /hpf (0-5)
[2018-07-24] MEDS ORDERED: DEXTROSE 5%-WATER - 50 ML IVPB ONE (18:12)
[2018-07-24] MEDS ORDERED: cefTRIAXone SODIUM 1 GM VIAL ONE (18:12)
[2018-07-24] MEDS: CEFTRIAXONE 1 GM in DEXTROSE 5%-WATER - 50 ML IVPB SCH (18:45)
[2018-07-25] MEDS: SODIUM BICARBONATE 8.4% - 50 MEQ in DEXTROSE 5%-WATER - 1,000 ML IV SCH (04:34)
[2018-07-25] MEDS: SODIUM BICARBONATE 650 MG TABLET PO SCH ×3 (06:14→21:25)
[2018-07-25] MEDS: LEVOTHYROXINE NA 100 MCG TABLET (FP) PO SCH (06:15)
[2018-07-25] MEDS ORDERED: cefTRIAXone SODIUM 1 GM VIAL ONE (08:53)
[2018-07-25] MEDS ORDERED: DEXTROSE 5%-WATER - 50 ML IVPB ONE (08:54)
[2018-07-25] MEDS: TAMSULOSIN HCL 0.4 MG CAP PO SCH (08:57)
[2018-07-25] MEDS: PANTOPRAZOLE SODIUM 40 MG VIAL IVPUSH SCH ×2 (09:00→21:25)
[2018-07-25] MEDS: CEFTRIAXONE 1 GM in DEXTROSE 5%-WATER - 50 ML IVPB SCH (09:04)
[2018-07-25 09:13] LABS: BASO % 0.5 % (0-2.0); EOS % 4.4 % (0-4.5); LYMPH % 6.7 % (8-40); MCH 30.4 pg (25.7-33.7); MCHC 34.3 g/dl (32.0-36.0); MEAN CELL VOLUME 88.6 fl (80-96); MEAN PLT VOLUME 7.1 fl (7.5-11.1); MONO % 6.3 % (3.8-10.2); NEUT % 82.1 % (42.8-82.8); PLATELET COUNT 451 K/MM3 (134-434); RBC 3.62 M/mm3 (3.60-5.2); RDW 17.5 % (11.6-15.6); WHITE BLOOD COUNT 9.6 K/mm3 (4.0-10.0)
[2018-07-25 09:45] LABS: ALBUMIN 2.4 g/dl (3.4-5.0); BILIRUBIN,TOTAL 0.4 mg/dL (0.2-1); CREATININE 1.9 mg/dL (0.55-1.3); POTASSIUM 3.4 mmol/L (3.5-5.1); TOT PROT 5.6 g/dl (6.4-8.2)
[2018-07-25] MEDS: ESCITALOPRAM OXALATE 20 MG TABLET (FP) PO SCH (10:54)
[2018-07-25] MEDS: amLODIPine BESYLATE 10 MG TABLET (FP) PO SCH (10:54)
[2018-07-25] MEDS: metoPROLOL SUCCINATE 25 MG TAB.SR.24H (FP) PO SCH (10:55)
[2018-07-25] MEDS: KCL 10 MEQ IVPB 10 MEQ/100 ML INFUS.BAG IVPB SCH ×2 (11:23→12:29)
--- NOTE | 2018-07-25 11:46 | PN ---
Progress Note, Physician History of Present Illness: Pt seen and examined at bedside. She is awake and appears comfortable. She denies shortness of breath. - Current Medication List Current Medications: Active Medications Amlodipine Besylate (Norvasc -) 10 mg PO DAILY [facility] Last Admin: 07/25/18 10:54 Dose: 10 mg Escitalopram Oxalate (Lexapro -) 20 mg PO DAILY [facility] Last Admin: 07/25/18 10:54 Dose: 20 mg Sodium Bicarbonate 50 meq/ (Dextrose) 1,050 mls @ 60 mls/hr IV Q17H [facility] Last Admin: 07/25/18 04:34 Dose: 60 mls/hr Ceftriaxone Sodium 1 gm/ (Dextrose) 50 mls @ 200 mls/hr IVPB DAILY [facility]; Protocol Last Admin: 07/25/18 09:04 Dose: 200 mls/hr Potassium Chloride (Potassium Chloride 10 Meq Premix Ivpb -) 10 meq in 100 mls @ 100 mls/hr IVPB Q60M [facility] Stop: 07/25/18 12:44 Last Admin: 07/25/18 11:23 Dose: 100 mls/hr Levothyroxine Sodium (Synthroid -) 100 mcg PO DAILY@0700 [facility] Last Admin: 07/25/18 06:15 Dose: 100 mcg Pantoprazole Sodium (Protonix Iv) 40 mg IVPUSH BID [facility] Last Admin: 07/25/18 09:00 Dose: 40 mg Sodium Bicarbonate (Sodium Bicarbonate -) 650 mg PO TID [facility] Last Admin: 07/25/18 06:14 Dose: 650 mg Tamsulosin HCl (Flomax -) 0.4 mg PO DAILY@0830 [facility] Last Admin: 07/25/18 08:57 Dose: 0.4 mg - Objective Vital Signs: Vital Signs Temperature 97.8 F 07/25/18 09:05 Pulse Rate 51 L 07/25/18 09:05 Respiratory Rate 18 07/25/18 09:05 Blood Pressure 144/72 07/25/18 09:05 O2 Sat by Pulse Oximetry (%) 100 07/24/18 21:00 Constitutional: Yes: Calm Eyes: Yes: Conjunctiva Clear HENT: Yes: Atraumatic Neck: Yes: Supple Cardiovascular: Yes: S1, S2 Respiratory: Yes: CTA Bilaterally Gastrointestinal: Yes: Soft Genitourinary: Yes: WNL Edema: No Neurological: Yes: Oriented Labs: CBC, BMP 06/03/19 08:42 07/25/18 08:42 INR, PTT INR 0.95 (0.83-1.09) 07/18/18 11:00 Problem List - Problems (1) GIB (gastrointestinal bleeding) Code(s): K92.2 - GASTROINTESTINAL HEMORRHAGE, UNSPECIFIED (2) Anemia Code(s): D64.9 - ANEMIA, UNSPECIFIED Qualifiers: Anemia type: unspecified type Qualified Code(s): D64.9 - Anemia, unspecified (3) CKD (chronic kidney disease) Code(s): N18.9 - CHRONIC KIDNEY DISEASE, UNSPECIFIED Qualifiers: Chronic kidney disease stage: unspecified stage Qualified Code(s): N18.9 - Chronic kidney disease, unspecified (4) HTN (hypertension) Code(s): I10 - ESSENTIAL (PRIMARY) HYPERTENSION Qualifiers: Hypertension type: unspecified Qualified Code(s): I10 - Essential (primary ) hypertension Assessment/Plan Current Medications Generic Name Dose Route Start Last Admin Trade Name Freq PRN Reason Stop Dose Admin Amlodipine Besylate 10 mg 07/22/18 10:00 07/25/18 10:54 Norvasc - PO 10 mg DAILY [facility] Administration Escitalopram Oxalate 20 mg 07/22/18 10:00 07/25/18 10:54 Lexapro - PO 20 mg DAILY [facility] Administration Sodium Bicarbonate 50 meq/ 1,050 mls @ 60 mls/hr 07/24/18 10:28 07/25/18 04: 34 Dextrose IV 60 mls/hr Q17H [facility]NEA Administration Ceftriaxone Sodium 1 gm/ 50 mls @ 200 mls/hr 07/24/18 17:00 07/25/18 09:04 Dextrose IVPB 200 mls/hr DAILY [facility] Administration Protocol Potassium Chloride 10 meq in 100 mls @ 100 mls/hr 07/25/18 10:45 07/25/18 11: 23 Potassium Chloride 10 Meq Premix Ivpb - IVPB 07/25/18 12:44 100 mls/hr Q60M [facility]NEA Administration Levothyroxine Sodium 100 mcg 07/22/18 07:00 07/25/18 06:15 Synthroid - PO 100 mcg DAILY@0700 [facility] Administration Pantoprazole Sodium 40 mg 07/23/18 09:11 07/25/18 09:00 Protonix Iv IVPUSH 40 mg BID [facility] Administration Sodium Bicarbonate 650 mg 07/22/18 14:00 07/25/18 06:14 Sodium Bicarbonate - PO 650 mg TID [facility] Administration Tamsulosin HCl 0.4 mg 07/22/18 08:30 07/25/18 08:57 Flomax - PO 0.4 mg DAILY@0830 [facility] Administration Impression 1. CKD 2. right renal cyst 3. toe ulcer 4. hypothryoid 5. dementia 6. parkinsons 7. HTN 8. gout 9. uremia 10. anemia 11. GI bleed 12. LUCERO 13. resp failure Plan - replace potassium - will adjust fluids - renal function improving - pending endoscopy Dr John
--- NOTE | 2018-07-25 13:30 | PN ---
Progress Note, Physician History of Present Illness: PULMONARY AWAKE,NO DISTRESS,OCC COUGH,-SOB - Current Medication List Current Medications: Active Medications Amlodipine Besylate (Norvasc -) 10 mg PO DAILY [facility] Last Admin: 07/25/18 10:54 Dose: 10 mg Escitalopram Oxalate (Lexapro -) 20 mg PO DAILY [facility] Last Admin: 07/25/18 10:54 Dose: 20 mg Ceftriaxone Sodium 1 gm/ (Dextrose) 50 mls @ 200 mls/hr IVPB DAILY [facility]; Protocol Last Admin: 07/25/18 09:04 Dose: 200 mls/hr Sodium Bicarbonate 50 meq/ (Dextrose/Sodium Chloride) 1,000 mls @ 75 mls/hr IV Q13H [facility] Levothyroxine Sodium (Synthroid -) 100 mcg PO DAILY@0700 [facility] Last Admin: 07/25/18 06:15 Dose: 100 mcg Pantoprazole Sodium (Protonix Iv) 40 mg IVPUSH BID [facility] Last Admin: 07/25/18 09:00 Dose: 40 mg Sodium Bicarbonate (Sodium Bicarbonate -) 650 mg PO TID [facility] Last Admin: 07/25/18 06:14 Dose: 650 mg Tamsulosin HCl (Flomax -) 0.4 mg PO DAILY@0830 [facility] Last Admin: 07/25/18 08:57 Dose: 0.4 mg - Objective Vital Signs: Vital Signs Temperature 97.8 F 07/25/18 09:05 Pulse Rate 51 L 07/25/18 09:05 Respiratory Rate 18 07/25/18 09:05 Blood Pressure 144/72 07/25/18 09:05 O2 Sat by Pulse Oximetry (%) 100 07/24/18 21:00 Constitutional: Yes: Calm, Thin Eyes: Yes: WNL HENT: Yes: WNL Neck: Yes: WNL Cardiovascular: Yes: Regular Rate and Rhythm, S1, S2 Respiratory: Yes: CTA Bilaterally Gastrointestinal: Yes: Normal Bowel Sounds, Soft Extremities: Yes: WNL Edema: No Labs: CBC, BMP 07/25/18 08:42 07/25/18 08:42 INR, PTT INR 0.95 (0.83-1.09) 07/18/18 11:00 Problem List - Problems (1) GIB (gastrointestinal bleeding) Code(s): K92.2 - GASTROINTESTINAL HEMORRHAGE, UNSPECIFIED (2) Anemia Code(s): D64.9 - ANEMIA, UNSPECIFIED Qualifiers: Anemia type: unspecified type Qualified Code(s): D64.9 - Anemia, unspecified (3) CHF (congestive heart failure) Code(s): I50.9 - HEART FAILURE, UNSPECIFIED (4) CKD (chronic kidney disease) Code(s): N18.9 - CHRONIC KIDNEY DISEASE, UNSPECIFIED Qualifiers: Chronic kidney disease stage: unspecified stage Qualified Code(s): N18.9 - Chronic kidney disease, unspecified (5) Cellulitis of fourth toe of left foot Code(s): L03.032 - CELLULITIS OF LEFT TOE (6) Chronic renal failure Code(s): N18.9 - CHRONIC KIDNEY DISEASE, UNSPECIFIED Qualifiers: Chronic kidney disease stage: unspecified stage Qualified Code(s): N18.9 - Chronic kidney disease, unspecified (7) GI bleed Code(s): K92.2 - GASTROINTESTINAL HEMORRHAGE, UNSPECIFIED Qualifiers: GI bleed type/associated pathology: unspecified gastrointestinal hemorrhage type Qualified Code(s): K92.2 - Gastrointestinal hemorrhage, unspecified (8) Hyperkalemia Code(s): E87.5 - HYPERKALEMIA (9) Lactic acid acidosis Code(s): E87.2 - ACIDOSIS (10) Metabolic acidosis Code(s): E87.2 - ACIDOSIS (11) Renal failure (ARF), acute on chronic Code(s): N17.9 - ACUTE KIDNEY FAILURE, UNSPECIFIED; N18.9 - CHRONIC KIDNEY DISEASE, UNSPECIFIED Qualifiers: Acute renal failure type: unspecified Chronic kidney disease stage: unspecified stage Qualified Code(s): N17.9 - Acute kidney failure, unspecified ; N18.9 - Chronic kidney disease, unspecified Assessment/Plan ASSESSMENT AND PLAN: Recurrent GI Bleed stable Acute Blood Loss Anemia S/P Acute Respiratory Failure HTN DM CKD Hypothyroidism Parkinsons Dementia - monitor H/H - protonix - IVF - monitor urine output, creatinine - DVT prophylaxix - sodium bicarb as per renal DR BUSTOS
[2018-07-25] MEDS: SODIUM BICARBONATE 8.4% - 50 MEQ in DEXTROSE 5%-0.45% SALINE 950 ML IV SCH (13:33)
[2018-07-25] MEDS ORDERED: POTASSIUM CHLORIDE TABS 20 MEQ TABLET.ER (FP) PO ONE (15:01)
--- NOTE | 2018-07-25 15:03 | PN ---
Progress Note, Physician Chief Complaint: patient to get egd today - Current Medication List Current Medications: Active Medications Amlodipine Besylate (Norvasc -) 10 mg PO DAILY [facility] Last Admin: 07/25/18 10:54 Dose: 10 mg Escitalopram Oxalate (Lexapro -) 20 mg PO DAILY [facility] Last Admin: 07/25/18 10:54 Dose: 20 mg Ceftriaxone Sodium 1 gm/ (Dextrose) 50 mls @ 200 mls/hr IVPB DAILY [facility]; Protocol Last Admin: 07/25/18 09:04 Dose: 200 mls/hr Sodium Bicarbonate 50 meq/ (Dextrose/Sodium Chloride) 1,000 mls @ 75 mls/hr IV Q13H [facility] Last Admin: 07/25/18 13:33 Dose: 75 mls/hr Levothyroxine Sodium (Synthroid -) 100 mcg PO DAILY@0700 [facility] Last Admin: 07/25/18 06:15 Dose: 100 mcg Pantoprazole Sodium (Protonix Iv) 40 mg IVPUSH BID [facility] Last Admin: 07/25/18 09:00 Dose: 40 mg Sodium Bicarbonate (Sodium Bicarbonate -) 650 mg PO TID [facility] Last Admin: 07/25/18 13:33 Dose: 650 mg Tamsulosin HCl (Flomax -) 0.4 mg PO DAILY@0830 [facility] Last Admin: 07/25/18 08:57 Dose: 0.4 mg - Objective Vital Signs: Vital Signs Temperature 97.7 F 07/25/18 13:00 Pulse Rate 54 L 07/25/18 13:00 Respiratory Rate 18 07/25/18 13:00 Blood Pressure 154/77 07/25/18 13:00 O2 Sat by Pulse Oximetry (%) 98 07/25/18 09:00 Constitutional: Yes: Calm, Thin Cardiovascular: Yes: Regular Rate and Rhythm, S1, S2 Respiratory: Yes: CTA Bilaterally Gastrointestinal: Yes: Normal Bowel Sounds, Soft Neurological: Yes: Alert, Oriented Labs: CBC, BMP 07/25/18 08:42 07/25/18 08:42 INR, PTT INR 0.95 (0.83-1.09) 07/18/18 11:00 Problem List - Problems (1) GIB (gastrointestinal bleeding) Assessment/Plan: h/h stable- clear liquid diet and monitor bun and h/h iv ppi bid to get EGD today Code(s): K92.2 - GASTROINTESTINAL HEMORRHAGE, UNSPECIFIED (2) Anemia Assessment/Plan: stool occult recheck again and still positive to get EGD today Code(s): D64.9 - ANEMIA, UNSPECIFIED Qualifiers: Anemia type: unspecified type Qualified Code(s): D64.9 - Anemia, unspecified (3) Hypothyroid Assessment/Plan: tsh elevated synthroid dose po Code(s): E03.9 - HYPOTHYROIDISM, UNSPECIFIED (4) CKD (chronic kidney disease) Assessment/Plan: creatinine is stable inc bun is secondary to GIB- trending down Code(s): N18.9 - CHRONIC KIDNEY DISEASE, UNSPECIFIED Qualifiers: Chronic kidney disease stage: unspecified stage Qualified Code(s): N18.9 - Chronic kidney disease, unspecified (5) Hypernatremia Assessment/Plan: na is better today on d5w fluids improved Code(s): E87.0 - HYPEROSMOLALITY AND HYPERNATREMIA
--- NOTE | 2018-07-25 17:25 | PN ---
Progress Note (short form) - Note Progress Note: EGD was planned for today however on re-evaluation pts mentation appeared to be fluctuating. On my evaluation in am, pt not verbalizing, unable to demonstrate understanding or awareness of EGD. On anesthesia evaluation, more communicative however not oriented to place or time. Still not able to verbalize understanding of risks/benefits of endoscopy. Procedure therefore cancelled today based on discussion with shell molder. Pts daughter also not able to be reached by phone (number not in service). Recommend re-evaluation by psychiatry to determine pts competency and decision making capacity in view of fluctuating mentation. Would also request that primary team please clarify NOK information if possible. Pending above, please notify GI and will re-evaluate for EGD and determine timing accordingly.
[2018-07-26] MEDS: SODIUM BICARBONATE 8.4% - 50 MEQ in DEXTROSE 5%-0.45% SALINE 950 ML IV SCH ×2 (02:54→19:46)
[2018-07-26] MEDS: LEVOTHYROXINE NA 100 MCG TABLET (FP) PO SCH (06:39)
[2018-07-26] MEDS: SODIUM BICARBONATE 650 MG TABLET PO SCH ×3 (06:39→21:54)
[2018-07-26 08:48] LABS: ALBUMIN 2.5 g/dl (3.4-5.0); BILIRUBIN,TOTAL 0.3 mg/dL (0.2-1); CALCIUM 8.4 mg/dL (8.5-10.1); CREATININE 1.8 mg/dL (0.55-1.3); MAGNESIUM 1.8 mg/dL (1.8-2.4); POTASSIUM 3.6 mmol/L (3.5-5.1); TOT PROT 5.8 g/dl (6.4-8.2)
--- NOTE | 2018-07-26 08:48 | PN ---
Progress Note, Physician - Current Medication List Current Medications: Active Medications Amlodipine Besylate (Norvasc -) 10 mg PO DAILY [facility] Last Admin: 07/25/18 10:54 Dose: 10 mg Escitalopram Oxalate (Lexapro -) 20 mg PO DAILY [facility] Last Admin: 07/25/18 10:54 Dose: 20 mg Ceftriaxone Sodium 1 gm/ (Dextrose) 50 mls @ 200 mls/hr IVPB DAILY [facility]; Protocol Last Admin: 07/25/18 09:04 Dose: 200 mls/hr Sodium Bicarbonate 50 meq/ (Dextrose/Sodium Chloride) 1,000 mls @ 75 mls/hr IV Q13H [facility] Last Admin: 07/26/18 02:54 Dose: 75 mls/hr Levothyroxine Sodium (Synthroid -) 100 mcg PO DAILY@0700 [facility] Last Admin: 07/26/18 06:39 Dose: 100 mcg Pantoprazole Sodium (Protonix Iv) 40 mg IVPUSH BID [facility] Last Admin: 07/25/18 21:25 Dose: 40 mg Sodium Bicarbonate (Sodium Bicarbonate -) 650 mg PO TID [facility] Last Admin: 07/26/18 06:39 Dose: 650 mg Tamsulosin HCl (Flomax -) 0.4 mg PO DAILY@0830 [facility] Last Admin: 07/25/18 08:57 Dose: 0.4 mg - Objective Vital Signs: Vital Signs Temperature 97.8 F 07/26/18 08:35 Pulse Rate 59 L 07/26/18 08:35 Respiratory Rate 20 07/26/18 08:35 Blood Pressure 119/52 L 07/26/18 08:35 O2 Sat by Pulse Oximetry (%) 98 07/25/18 21:00 Cardiovascular: Yes: S1, S2 Respiratory: Yes: Regular, CTA Bilaterally Gastrointestinal: Yes: Normal Bowel Sounds, Soft. No: Tenderness Labs: INR, PTT INR 0.95 (0.83-1.09) 07/18/18 11:00 Assessment/Plan - Problems (1) GIB (gastrointestinal bleeding) Assessment/Plan: h/h stable- clear liquid diet and monitor bun and h/h iv ppi bid to get EGD once consent obtained Code(s): K92.2 - GASTROINTESTINAL HEMORRHAGE, UNSPECIFIED (2) Anemia Assessment/Plan: stool occult recheck again and still positive to get EGD once consent obtained Code(s): D64.9 - ANEMIA, UNSPECIFIED Qualifiers: Anemia type: unspecified type Qualified Code(s): D64.9 - Anemia, unspecified (3) Hypothyroid Assessment/Plan: tsh elevated synthroid dose po Code(s): E03.9 - HYPOTHYROIDISM, UNSPECIFIED (4) CKD (chronic kidney disease) Assessment/Plan: creatinine is stable inc bun is secondary to GIB- trending down Code(s): N18.9 - CHRONIC KIDNEY DISEASE, UNSPECIFIED Qualifiers: Chronic kidney disease stage: unspecified stage Qualified Code(s): N18.9 - Chronic kidney disease, unspecified (5) Hypernatremia Assessment/Plan: na is better today on d5w fluids improved Code(s): E87.0 - HYPEROSMOLALITY AND HYPERNATREMIA
[2018-07-26] MEDS ORDERED: cefTRIAXone SODIUM 1 GM VIAL ONE (09:17)
[2018-07-26] MEDS ORDERED: DEXTROSE 5%-WATER - 50 ML IVPB ONE (09:18)
[2018-07-26] MEDS: ESCITALOPRAM OXALATE 20 MG TABLET (FP) PO SCH (09:25)
[2018-07-26] MEDS: TAMSULOSIN HCL 0.4 MG CAP PO SCH (09:25)
[2018-07-26] MEDS: amLODIPine BESYLATE 10 MG TABLET (FP) PO SCH (09:25)
[2018-07-26] MEDS: PANTOPRAZOLE SODIUM 40 MG VIAL IVPUSH SCH (09:25)
[2018-07-26] MEDS: CEFTRIAXONE 1 GM in DEXTROSE 5%-WATER - 50 ML IVPB SCH (09:26)
--- NOTE | 2018-07-26 11:18 | PN ---
Progress Note (short form) - Note Progress Note: PULMONARY Endoscopy deferred due to consent issues. Started on clears. Vital Signs Period Temp Pulse Resp BP Sys/Rolon Pulse Ox Last 24 Hr 97.5 F-98.1 F 52-59 18-20 116-154/51-77 98 Gen: NAD at rest Heart: RRR Lung: decreased breath sounds at the bases Abd: soft, nontender Ext: no edema CBC, BMP 07/26/18 07:05 Active Medications Amlodipine Besylate (Norvasc -) 10 mg PO DAILY [facility] Last Admin: 07/26/18 09:25 Dose: 10 mg Escitalopram Oxalate (Lexapro -) 20 mg PO DAILY [facility] Last Admin: 07/26/18 09:25 Dose: 20 mg Ceftriaxone Sodium 1 gm/ (Dextrose) 50 mls @ 200 mls/hr IVPB DAILY [facility]; Protocol Last Admin: 07/26/18 09:26 Dose: 200 mls/hr Sodium Bicarbonate 50 meq/ (Dextrose/Sodium Chloride) 1,000 mls @ 75 mls/hr IV Q13H [facility] Last Admin: 07/26/18 02:54 Dose: 75 mls/hr Levothyroxine Sodium (Synthroid -) 100 mcg PO DAILY@0700 [facility] Last Admin: 07/26/18 06:39 Dose: 100 mcg Pantoprazole Sodium (Protonix Iv) 40 mg IVPUSH BID [facility] Last Admin: 07/26/18 09:25 Dose: 40 mg Sodium Bicarbonate (Sodium Bicarbonate -) 650 mg PO TID [facility] Last Admin: 07/26/18 06:39 Dose: 650 mg Tamsulosin HCl (Flomax -) 0.4 mg PO DAILY@0830 [facility] Last Admin: 07/26/18 09:25 Dose: 0.4 mg A/P Recurrent GI Bleed stable Acute Blood Loss Anemia S/P Acute Respiratory Failure HTN DM CKD Hypothyroidism Parkinsons Dementia - monitor H/H - protonix - IVF - monitor urine output, creatinine - PO per GI - DVT prophylaxix
[2018-07-26] MEDS ORDERED: INSULIN (NOVOLOG) ASPART 100 UNITS/ML 10ML VIAL ONE (11:47)
--- NOTE | 2018-07-26 11:55 | CONSULT ---
Consult - text type - Consultation Consultation Note: NEUROLOGY CONSULT APPRECIATED: Events reviewed and discussed with staff. Consults read and appreciated. This 77 yo woman from [facility] with with PMH of anemia, COPD, HTN, HLD, hypothyroid, GERD, and "Parkinson's." On: amlodipine, escitalopram 20qd, levothyroxine, ferrous sulfate, pantoprazole , metoprolol, tamsulosin. Admitted after Hemoglobin noted 5.1 for transfusion(s). Plan for EGD and patient intermittently NPO, however patient refused test so now on clear liquid diet. Subsequently found with UTI- now on IV ceftriaxone. Pt unable to provide cogent history. Head CT 06/23/18 (reviewed): Mod atrophy with ex vacuo ventricular dilation. Chronic L frontal cortical infarct. WBC 16.5-> 9.6 MCV= 88.6; NA= 135; BUN/CR 56/1.8; TSH= 13.40!; T4=0.75; T3= 0.6; UA WBC 272-> 405; UC > 100,000 E. coli; Stool occult + BP 119/52. P 50s. WILLAM: Cor reg. No bruit. Neck supple. Contractures at elbows, knees. White plaques notes on tongue. Joints of hands and feet swollen. Wheezing. NEURO: Awake, alert, sl dyarthric. hypophonic. OX "[place]." No month. 2015. TRUMP 02/24 recall @ 3 min. + glabella, snout, grasps CNII-CNXII: Masked. EOM's full. Full triana. No facial. Sl reduced tongue JOJO's. Gag ok. Motor: No drift. Sustention tremor present. + cogwheeling. Decreased JOJO's. Strength normal. Reflexes normal, except AJ's absent.Toes downgoing. Coordination: No FTN dystaxia but slowed. Sensation: Decreased vibration up to shins B/L. Gait: Deferred. Impression: Moderate-Severe B/L Cerebral Dysfunction (OMS, likely chronic) Worsened by Toxic-Metabolic Encephalopathy (urosepsis, GI bleed) Parkinsonism c/w Parkinson's Disease Peripheral Neuropathy (possibly nutritional) Suggest: Continue antibiotics and hydration Endocrinology for adjustment of hypothyroidism Check B12, RPR, Fe++, TIBC, Ferritin Add thiamine 250 mg IVP q8H x 3 days Patient may benefit from addition of L-Dopa Bedside PT vs contracture for ROM. OO Bed to chair for meals. Pt continues to require SNF level of care Thank you very much, Sherwin Cerna MD
[2018-07-26 12:02] LABS: BASO % 0.9 % (0-2.0); EOS % 5.8 % (0-4.5); LYMPH % 6.5 % (8-40); MCH 29.8 pg (25.7-33.7); MCHC 33.1 g/dl (32.0-36.0); MEAN CELL VOLUME 89.8 fl (80-96); MEAN PLT VOLUME 7.8 fl (7.5-11.1); MONO % 5.9 % (3.8-10.2); NEUT % 80.9 % (42.8-82.8); PLATELET COUNT 497 K/MM3 (134-434); RBC 3.68 M/mm3 (3.60-5.2); RDW 16.9 % (11.6-15.6); WHITE BLOOD COUNT 10.2 K/mm3 (4.0-10.0)
[2018-07-26] MEDS ORDERED: THIAMINE HCL 200 MG/2 ML VIAL IVPB SCH (14:00)
--- NOTE | 2018-07-26 15:52 | PN.GI ---
GI Progress Note Subjective: EGD cancelled yesterday. Anesthesia was concerned re: her fluctuating mental status. There was also concern regarding insight into the proposed procedure itself and ability to consent. She was previously deemed competent by psychiatry. It has been documented that Ms. Colon is estranged from her daughter and several attempts at contacting her have been unsuccessful. Per nursing she is more awake today. She has been evaluated by neurology who made some medication recommendations. She has not been reevaluated by Psych as of yet. - Objective Vital Signs: Vital Signs Temperature 98.1 F 07/26/18 14:26 Pulse Rate 61 07/26/18 14:26 Respiratory Rate 20 07/26/18 14:26 Blood Pressure 138/68 07/26/18 14:26 O2 Sat by Pulse Oximetry (%) 98 07/25/18 21:00 Constitutional: Calm Eyes: No: Sclera Icterus Cardiovascular: Yes: Regular Rate and Rhythm Respiratory: Yes: Diminished (at bases bilaterally with poor inso effort) Gastrointestinal Inspection: No: Distention ...Auscultate: Yes: Normoactive Bowel Sounds ...Palpate: Yes: Soft. No: Hepatomegaly, Splenomegaly, Tenderness Neurological: Yes: Alert (Awake, alert x person, place, partially to time) Labs: CBC, BMP 07/26/18 07:05 07/26/18 07:05 INR, PTT INR 0.95 (0.83-1.09) 07/18/18 11:00 Hepatic Panel Total Bilirubin 0.3 mg/dL (0.2-1) 07/26/18 07:05 AST 13 U/L (15-37) L 07/26/18 07:05 ALT 10 U/L (13-61) L 07/26/18 07:05 Alkaline Phosphatase 82 U/L (45-117) 07/26/18 07:05 Albumin 2.5 g/dl (3.4-5.0) L 07/26/18 07:05 Problem List - Problems (1) GIB (gastrointestinal bleeding) Assessment/Plan: There was concern regarding Ms. Colon' fluctuating mental status yesterday and her ability to give consent for anesthesia and her insight into the procedure itself. No overt bleeding and maintained on PPI Awaiting psych reevaluation Will keep NPO after midnight in case consent issue clarified, otherwise will need further clarification regarding goals of care. Code(s): Angel Luis92.2 - GASTROINTESTINAL HEMORRHAGE, UNSPECIFIED
--- NOTE | 2018-07-26 18:01 | PN ---
Progress Note, Physician History of Present Illness: Pt seen and examined at bedside. She appears comfortable. She denies shortness of breath. - Current Medication List Current Medications: Active Medications Amlodipine Besylate (Norvasc -) 10 mg PO DAILY [facility] Last Admin: 07/26/18 09:25 Dose: 10 mg Escitalopram Oxalate (Lexapro -) 20 mg PO DAILY [facility] Last Admin: 07/26/18 09:25 Dose: 20 mg Ceftriaxone Sodium 1 gm/ (Dextrose) 50 mls @ 200 mls/hr IVPB DAILY [facility]; Protocol Last Admin: 07/26/18 09:26 Dose: 200 mls/hr Sodium Bicarbonate 50 meq/ (Dextrose/Sodium Chloride) 1,000 mls @ 75 mls/hr IV Q13H [facility] Last Admin: 07/26/18 02:54 Dose: 75 mls/hr Levothyroxine Sodium (Synthroid -) 100 mcg PO DAILY@0700 [facility] Last Admin: 07/26/18 06:39 Dose: 100 mcg Pantoprazole Sodium (Protonix Iv) 40 mg IVPUSH BID [facility] Last Admin: 07/26/18 09:25 Dose: 40 mg Sodium Bicarbonate (Sodium Bicarbonate -) 650 mg PO TID [facility] Last Admin: 07/26/18 16:43 Dose: 650 mg Tamsulosin HCl (Flomax -) 0.4 mg PO DAILY@0830 [facility] Last Admin: 07/26/18 09:25 Dose: 0.4 mg Thiamine HCl (Vitamin B1 Injection -) 250 mg IVPB TID [facility] Stop: 07/29/18 13:59 - Objective Vital Signs: Vital Signs Temperature 98.1 F 07/26/18 14:26 Pulse Rate 61 07/26/18 14:26 Respiratory Rate 20 07/26/18 14:26 Blood Pressure 138/68 07/26/18 14:26 O2 Sat by Pulse Oximetry (%) 98 07/25/18 21:00 Constitutional: Yes: Calm Eyes: Yes: Conjunctiva Clear HENT: Yes: Atraumatic Neck: Yes: Supple Cardiovascular: Yes: S1, S2 Respiratory: Yes: CTA Bilaterally Gastrointestinal: Yes: Soft Genitourinary: Yes: Incontinence Musculoskeletal: Yes: Muscle Weakness Edema: No Neurological: Yes: Oriented Labs: CBC, BMP 07/26/18 07:05 07/26/18 07:05 INR, PTT INR 0.95 (0.83-1.09) 07/18/18 11:00 Problem List - Problems (1) GIB (gastrointestinal bleeding) Code(s): K92.2 - GASTROINTESTINAL HEMORRHAGE, UNSPECIFIED (2) Anemia Code(s): D64.9 - ANEMIA, UNSPECIFIED Qualifiers: Anemia type: unspecified type Qualified Code(s): D64.9 - Anemia, unspecified (3) CKD (chronic kidney disease) Code(s): N18.9 - CHRONIC KIDNEY DISEASE, UNSPECIFIED Qualifiers: Chronic kidney disease stage: unspecified stage Qualified Code(s): N18.9 - Chronic kidney disease, unspecified (4) HTN (hypertension) Code(s): I10 - ESSENTIAL (PRIMARY) HYPERTENSION Qualifiers: Hypertension type: unspecified Qualified Code(s): I10 - Essential (primary ) hypertension Assessment/Plan Current Medications Generic Name Dose Route Start Last Admin Trade Name Freq PRN Reason Stop Dose Admin Amlodipine Besylate 10 mg 07/22/18 10:00 07/26/18 09:25 Norvasc - PO 10 mg DAILY [facility] Administration Escitalopram Oxalate 20 mg 07/22/18 10:00 07/26/18 09:25 Lexapro - PO 20 mg DAILY [facility] Administration Ceftriaxone Sodium 1 gm/ 50 mls @ 200 mls/hr 07/24/18 17:00 07/26/18 09:26 Dextrose IVPB 200 mls/hr DAILY [facility] Administration Protocol Sodium Bicarbonate 50 meq/ 1,000 mls @ 75 mls/hr 07/25/18 12:00 07/26/18 02: 54 Dextrose/Sodium Chloride IV 75 mls/hr Q13H [facility] Administration Levothyroxine Sodium 100 mcg 07/22/18 07:00 07/26/18 06:39 Synthroid - PO 100 mcg DAILY@0700 [facility] Administration Pantoprazole Sodium 40 mg 07/23/18 09:11 07/26/18 09:25 Protonix Iv IVPUSH 40 mg BID [facility] Administration Sodium Bicarbonate 650 mg 07/22/18 14:00 07/26/18 16:43 Sodium Bicarbonate - PO 650 mg TID [facility] Administration Tamsulosin HCl 0.4 mg 07/22/18 08:30 07/26/18 09:25 Flomax - PO 0.4 mg DAILY@0830 [facility] Administration Thiamine HCl 250 mg 07/26/18 14:00 Vitamin B1 Injection - IVPB 07/29/18 13:59 TID [facility] Impression 1. CKD 2. right renal cyst 3. toe ulcer 4. hypothryoid 5. dementia 6. parkinsons 7. HTN 8. gout 9. uremia 10. anemia 11. GI bleed 12. LUCERO 13. resp failure Plan - bicarb improved - change fluids to d51/2 ns - repeat labs in am - monitor hg - pending endoscopy Dr John
[2018-07-26] MEDS ORDERED: D5-1/2NS+10 MEQ KCL - 10 MEQ/1,000 ML INFUS.BAG IV SCH (18:15)
--- NOTE | 2018-07-26 18:19 | PN ---
Progress Note (short form) - Note Progress Note: Patient seen for reeval of capacity to make decisions. MS; Alert, calm pleasant, able to comprehend. Knows where she is. Able to comprehend at this time. She does not want any tubes or procedures done to her at this time. She understands that she can get sick again if the test is not done. IMP: Patient has the FUnctional capacity to make decisions at this time.
[2018-07-26] MEDS: THIAMINE HCL 100 MG TABLET (FP) PO SCH (21:54)
[2018-07-26] MEDS: PANTOPRAZOLE 40 MG TABLET (FP) PO SCH (21:54)
[2018-07-27] MEDS: THIAMINE HCL 100 MG TABLET (FP) PO SCH ×3 (06:51→22:37)
[2018-07-27] MEDS: LEVOTHYROXINE NA 100 MCG TABLET (FP) PO SCH (06:51)
[2018-07-27] MEDS: SODIUM BICARBONATE 650 MG TABLET PO SCH ×3 (06:51→22:37)
[2018-07-27 08:06] LABS: SERUM IRON SATURATION 9 % (15-55); TOTAL IRON BINDING CAPACITY 182 ug/dL (250-450); UIBC 165 ug/dL (118-369)
--- NOTE | 2018-07-27 09:42 | PN ---
Progress Note, Physician - Current Medication List Current Medications: Active Medications Amlodipine Besylate (Norvasc -) 10 mg PO DAILY [facility] Last Admin: 07/26/18 09:25 Dose: 10 mg Escitalopram Oxalate (Lexapro -) 20 mg PO DAILY [facility] Last Admin: 07/26/18 09:25 Dose: 20 mg Ceftriaxone Sodium 1 gm/ (Dextrose) 50 mls @ 200 mls/hr IVPB DAILY [facility]; Protocol Last Admin: 07/26/18 09:26 Dose: 200 mls/hr Potassium Chloride/Dextrose/Sod Cl (D5-1/2ns+10 Meq Kcl -) 10 meq in 1,000 mls @ 65 mls/hr IV ASDIR [facility] Last Admin: 07/26/18 19:45 Dose: Not Given Levothyroxine Sodium (Synthroid -) 100 mcg PO DAILY@0700 [facility] Last Admin: 07/27/18 06:51 Dose: 100 mcg Pantoprazole Sodium (Protonix -) 40 mg PO BID [facility] Last Admin: 07/26/18 21:54 Dose: 40 mg Sodium Bicarbonate (Sodium Bicarbonate -) 650 mg PO TID [facility] Last Admin: 07/27/18 06:51 Dose: 650 mg Tamsulosin HCl (Flomax -) 0.4 mg PO DAILY@0830 [facility] Last Admin: 07/26/18 09:25 Dose: 0.4 mg Thiamine HCl (Vitamin B1 -) 100 mg PO TID [facility] Last Admin: 07/27/18 06:51 Dose: 100 mg - Objective Vital Signs: Vital Signs Temperature 98.4 F 07/27/18 06:00 Pulse Rate 60 07/27/18 06:00 Respiratory Rate 20 07/27/18 06:00 Blood Pressure 157/91 07/27/18 06:00 O2 Sat by Pulse Oximetry (%) 100 07/26/18 21:00 Cardiovascular: Yes: S1, S2 Respiratory: Yes: Regular, CTA Bilaterally Gastrointestinal: Yes: Normal Bowel Sounds, Soft Labs: CBC, BMP 07/26/18 07:05 07/26/18 07:05 INR, PTT INR 0.95 (0.83-1.09) 07/18/18 11:00 Assessment/Plan - Problems (1) GIB (gastrointestinal bleeding) Assessment/Plan: h/h stable- clear liquid diet and monitor bun and h/h iv ppi bid to get EGD once consent obtained -Psych noted--has capacity Code(s): K92.2 - GASTROINTESTINAL HEMORRHAGE, UNSPECIFIED (2) Anemia Assessment/Plan: stool occult recheck again and still positive to get EGD once consent obtained--no endoscopy Code(s): D64.9 - ANEMIA, UNSPECIFIED Qualifiers: Anemia type: unspecified type Qualified Code(s): D64.9 - Anemia, unspecified (3) Hypothyroid Assessment/Plan: tsh elevated synthroid dose po Code(s): E03.9 - HYPOTHYROIDISM, UNSPECIFIED (4) CKD (chronic kidney disease) Assessment/Plan: creatinine is stable inc bun is secondary to GIB- trending down Code(s): N18.9 - CHRONIC KIDNEY DISEASE, UNSPECIFIED Qualifiers: Chronic kidney disease stage: unspecified stage Qualified Code(s): N18.9 - Chronic kidney disease, unspecified (5) Hypernatremia Assessment/Plan: na is better today on d5w fluids improved Code(s): E87.0 - HYPEROSMOLALITY AND HYPERNATREMIA physical therapy--snf
[2018-07-27] MEDS ORDERED: CIPROFLOXACIN 250 MG TABLET (RESTRICTED TO ID) PO SCH (10:00)
[2018-07-27] MEDS: TAMSULOSIN HCL 0.4 MG CAP PO SCH (11:05)
[2018-07-27] MEDS: amLODIPine BESYLATE 10 MG TABLET (FP) PO SCH (11:05)
[2018-07-27] MEDS: ESCITALOPRAM OXALATE 20 MG TABLET (FP) PO SCH (11:05)
[2018-07-27] MEDS: PANTOPRAZOLE 40 MG TABLET (FP) PO SCH ×2 (11:05→22:37)
[2018-07-27 11:55] LABS: HEMATOCRIT 32.6 % (32.4-45.2); HEMOGLOBIN 10.8 GM/dL (10.7-15.3); MCH 29.8 pg (25.7-33.7); MEAN CELL VOLUME 90.4 fl (80-96); MEAN PLT VOLUME 8.2 fl (7.5-11.1); PLATELET COUNT 486 K/MM3 (134-434); RBC 3.61 M/mm3 (3.60-5.2); RDW 17.5 % (11.6-15.6); WHITE BLOOD COUNT 8.9 K/mm3 (4.0-10.0)
--- NOTE | 2018-07-27 11:55 | PN ---
Progress Note, Physician History of Present Illness: Pt seen and examined at bedside. She is awake and alert. She is refusing any intervention. - Current Medication List Current Medications: Active Medications Amlodipine Besylate (Norvasc -) 10 mg PO DAILY [facility] Last Admin: 07/27/18 11:05 Dose: 10 mg Escitalopram Oxalate (Lexapro -) 20 mg PO DAILY [facility] Last Admin: 07/27/18 11:05 Dose: 20 mg Levofloxacin (Levaquin -) 250 mg PO DAILY@0600 [facility] Last Admin: 07/27/18 11:05 Dose: 250 mg Levothyroxine Sodium (Synthroid -) 100 mcg PO DAILY@0700 [facility] Last Admin: 07/27/18 06:51 Dose: 100 mcg Pantoprazole Sodium (Protonix -) 40 mg PO BID [facility] Last Admin: 07/27/18 11:05 Dose: 40 mg Sodium Bicarbonate (Sodium Bicarbonate -) 650 mg PO TID [facility] Last Admin: 07/27/18 06:51 Dose: 650 mg Tamsulosin HCl (Flomax -) 0.4 mg PO DAILY@0830 [facility] Last Admin: 07/27/18 11:05 Dose: 0.4 mg Thiamine HCl (Vitamin B1 -) 100 mg PO TID [facility] Last Admin: 07/27/18 06:51 Dose: 100 mg - Objective Vital Signs: Vital Signs Temperature 98 F 07/27/18 10:00 Pulse Rate 61 07/27/18 10:00 Respiratory Rate 20 07/27/18 10:00 Blood Pressure 127/65 07/27/18 10:00 O2 Sat by Pulse Oximetry (%) 100 07/26/18 21:00 Constitutional: Yes: Calm Eyes: Yes: Conjunctiva Clear HENT: Yes: Atraumatic Neck: Yes: Supple Cardiovascular: Yes: S1, S2 Respiratory: Yes: CTA Bilaterally Gastrointestinal: Yes: Soft Genitourinary: Yes: WNL Musculoskeletal: Yes: WNL Edema: No Neurological: Yes: Oriented Labs: CBC, BMP 07/26/18 07:05 INR, PTT INR 0.95 (0.83-1.09) 07/18/18 11:00 Problem List - Problems (1) GIB (gastrointestinal bleeding) Code(s): K92.2 - GASTROINTESTINAL HEMORRHAGE, UNSPECIFIED (2) Anemia Code(s): D64.9 - ANEMIA, UNSPECIFIED Qualifiers: Anemia type: unspecified type Qualified Code(s): D64.9 - Anemia, unspecified (3) CKD (chronic kidney disease) Code(s): N18.9 - CHRONIC KIDNEY DISEASE, UNSPECIFIED Qualifiers: Chronic kidney disease stage: unspecified stage Qualified Code(s): N18.9 - Chronic kidney disease, unspecified (4) HTN (hypertension) Code(s): I10 - ESSENTIAL (PRIMARY) HYPERTENSION Qualifiers: Hypertension type: unspecified Qualified Code(s): I10 - Essential (primary ) hypertension Assessment/Plan Current Medications Generic Name Dose Route Start Last Admin Trade Name Freq PRN Reason Stop Dose Admin Amlodipine Besylate 10 mg 07/22/18 10:00 07/27/18 11:05 Norvasc - PO 10 mg DAILY [facility] Administration Escitalopram Oxalate 20 mg 07/22/18 10:00 07/27/18 11:05 Lexapro - PO 20 mg DAILY [facility] Administration Levofloxacin 250 mg 07/27/18 10:15 07/27/18 11:05 Levaquin - PO 250 mg DAILY@0600 [facility] Administration Levothyroxine Sodium 100 mcg 07/22/18 07:00 07/27/18 06:51 Synthroid - PO 100 mcg DAILY@0700 [facility] Administration Pantoprazole Sodium 40 mg 07/26/18 22:00 07/27/18 11:05 Protonix - PO 40 mg BID [facility] Administration Sodium Bicarbonate 650 mg 07/22/18 14:00 07/27/18 06:51 Sodium Bicarbonate - PO 650 mg TID [facility] Administration Tamsulosin HCl 0.4 mg 07/22/18 08:30 07/27/18 11:05 Flomax - PO 0.4 mg DAILY@0830 [facility] Administration Thiamine HCl 100 mg 07/26/18 22:00 07/27/18 06:51 Vitamin B1 - PO 100 mg TID [facility] Administration Impression 1. CKD 2. right renal cyst 3. toe ulcer 4. hypothryoid 5. dementia 6. parkinsons 7. HTN 8. gout 9. uremia 10. anemia 11. GI bleed 12. LUCERO 13. resp failure Plan - renal function stabilizing - can stop fluids as she does not have an OV - cont po bicarb - pt tolerating diet - psych input appreciated Dr John
--- NOTE | 2018-07-27 11:56 | PN ---
Progress Note, Physician History of Present Illness: pulmonary alert,no distress,-cp -sob,refusing endoscopy - Current Medication List Current Medications: Active Medications Amlodipine Besylate (Norvasc -) 10 mg PO DAILY [facility] Last Admin: 07/27/18 11:05 Dose: 10 mg Escitalopram Oxalate (Lexapro -) 20 mg PO DAILY [facility] Last Admin: 07/27/18 11:05 Dose: 20 mg Levofloxacin (Levaquin -) 250 mg PO DAILY@0600 [facility] Last Admin: 07/27/18 11:05 Dose: 250 mg Levothyroxine Sodium (Synthroid -) 100 mcg PO DAILY@0700 [facility] Last Admin: 07/27/18 06:51 Dose: 100 mcg Pantoprazole Sodium (Protonix -) 40 mg PO BID [facility] Last Admin: 07/27/18 11:05 Dose: 40 mg Sodium Bicarbonate (Sodium Bicarbonate -) 650 mg PO TID [facility] Last Admin: 07/27/18 06:51 Dose: 650 mg Tamsulosin HCl (Flomax -) 0.4 mg PO DAILY@0830 [facility] Last Admin: 07/27/18 11:05 Dose: 0.4 mg Thiamine HCl (Vitamin B1 -) 100 mg PO TID [facility] Last Admin: 07/27/18 06:51 Dose: 100 mg - Objective Vital Signs: Vital Signs Temperature 98 F 07/27/18 10:00 Pulse Rate 61 07/27/18 10:00 Respiratory Rate 20 07/27/18 10:00 Blood Pressure 127/65 07/27/18 10:00 O2 Sat by Pulse Oximetry (%) 100 07/26/18 21:00 Constitutional: Yes: Calm, Thin Eyes: Yes: WNL HENT: Yes: WNL Neck: Yes: WNL Cardiovascular: Yes: Regular Rate and Rhythm, S1, S2 Respiratory: Yes: CTA Bilaterally Gastrointestinal: Yes: Normal Bowel Sounds, Soft Extremities: Yes: WNL Edema: No Labs: Problem List - Problems (1) GIB (gastrointestinal bleeding) Code(s): K92.2 - GASTROINTESTINAL HEMORRHAGE, UNSPECIFIED (2) Anemia Code(s): D64.9 - ANEMIA, UNSPECIFIED Qualifiers: Qualified Code(s): D64.9 - Anemia, unspecified (3) CHF (congestive heart failure) Code(s): I50.9 - HEART FAILURE, UNSPECIFIED (4) CKD (chronic kidney disease) Code(s): N18.9 - CHRONIC KIDNEY DISEASE, UNSPECIFIED Qualifiers: Qualified Code(s): N18.9 - Chronic kidney disease, unspecified (5) Cellulitis of fourth toe of left foot Code(s): L03.032 - CELLULITIS OF LEFT TOE (6) Chronic renal failure Code(s): N18.9 - CHRONIC KIDNEY DISEASE, UNSPECIFIED Qualifiers: Qualified Code(s): N18.9 - Chronic kidney disease, unspecified (7) GI bleed Code(s): K92.2 - GASTROINTESTINAL HEMORRHAGE, UNSPECIFIED Qualifiers: Qualified Code(s): K92.2 - Gastrointestinal hemorrhage, unspecified (8) Hyperkalemia Code(s): E87.5 - HYPERKALEMIA (9) Lactic acid acidosis Code(s): E87.2 - ACIDOSIS (10) Metabolic acidosis Code(s): E87.2 - ACIDOSIS (11) Renal failure (ARF), acute on chronic Code(s): N17.9 - ACUTE KIDNEY FAILURE, UNSPECIFIED; N18.9 - CHRONIC KIDNEY DISEASE, UNSPECIFIED Qualifiers: Qualified Code(s): N17.9 - Acute kidney failure, unspecified; N18.9 - Chronic kidney disease, unspecified Assessment/Plan ASSESSMENT AND PLAN: Recurrent GI Bleed stable Acute Blood Loss Anemia S/P Acute Respiratory Failure HTN DM CKD Hypothyroidism Parkinsons Dementia - monitor H/H - protonix - IVF - monitor urine output, creatinine - DVT prophylaxix - sodium bicarb as per renal DR BUSTOS
[2018-07-27 12:05] LABS: CALCIUM 8.8 mg/dL (8.5-10.1); CREATININE 1.8 mg/dL (0.55-1.3); POTASSIUM 3.4 mmol/L (3.5-5.1)
--- NOTE | 2018-07-27 15:56 | PN ---
Progress Note (short form) - Note Progress Note: Pt seen by psychiatry yesterday determined to have decision making capacity. Reported to have also been refusing further procedures. Pt ordered for regular diet today per primary team. On my evaluation, pt more alert, able to verbalize understanding of endoscopy and indication to evaluate for bleeding however states she does not want the test and [facility]. Potential for missed lesions if endoscopy not pursued was explained, pt verbalized understanding though continues to refuse. Recommend monitoring of Hb and for evidence of bleeding. Continue PPI therapy. If further evidence of bleeding with drop in Hb and pt wants to readdress endoscopic evaluation, please notify GI. Attempted to contact Dr. Xiong to discuss, await call back.
[2018-07-28] MEDS: SODIUM BICARBONATE 650 MG TABLET PO SCH ×3 (06:36→22:51)
[2018-07-28] MEDS: LEVOTHYROXINE NA 100 MCG TABLET (FP) PO SCH (06:36)
[2018-07-28] MEDS: THIAMINE HCL 100 MG TABLET (FP) PO SCH ×3 (06:36→22:51)
[2018-07-28] MEDS: PANTOPRAZOLE 40 MG TABLET (FP) PO SCH ×2 (09:36→22:50)
[2018-07-28] MEDS: TAMSULOSIN HCL 0.4 MG CAP PO SCH (09:36)
[2018-07-28] MEDS: ESCITALOPRAM OXALATE 20 MG TABLET (FP) PO SCH (09:37)
[2018-07-28] MEDS: amLODIPine BESYLATE 10 MG TABLET (FP) PO SCH (10:11)
--- NOTE | 2018-07-28 11:51 | PN ---
Progress Note (short form) - Note Progress Note: PULMONARY Denies shortness of breath or chest pain. Vital Signs Period Temp Pulse Resp BP Sys/Rolon Pulse Ox Last 24 Hr 98 F-98.6 F 53-65 20-20 116-150/43-72 Gen: NAD at rest Heart: RRR Lung: decreased breath sounds at the bases Abd: soft, nontender Ext: no edema CBC, BMP 07/27/18 06:40 07/27/18 06:40 Active Medications Amlodipine Besylate (Norvasc -) 10 mg PO DAILY [facility] Last Admin: 07/28/18 10:11 Dose: 10 mg Escitalopram Oxalate (Lexapro -) 20 mg PO DAILY [facility] Last Admin: 07/28/18 09:37 Dose: 20 mg Levofloxacin (Levaquin -) 250 mg PO DAILY@0600 [facility] Last Admin: 07/28/18 06:36 Dose: 250 mg Levothyroxine Sodium (Synthroid -) 100 mcg PO DAILY@0700 [facility] Last Admin: 07/28/18 06:36 Dose: 100 mcg Pantoprazole Sodium (Protonix -) 40 mg PO BID [facility] Last Admin: 07/28/18 09:36 Dose: 40 mg Sodium Bicarbonate (Sodium Bicarbonate -) 650 mg PO TID [facility] Last Admin: 07/28/18 06:36 Dose: 650 mg Tamsulosin HCl (Flomax -) 0.4 mg PO DAILY@0830 [facility] Last Admin: 07/28/18 09:36 Dose: 0.4 mg Thiamine HCl (Vitamin B1 -) 100 mg PO TID [facility] Last Admin: 07/28/18 06:36 Dose: 100 mg A/P Recurrent GI Bleed stable Acute Blood Loss Anemia S/P Acute Respiratory Failure HTN DM CKD Hypothyroidism Parkinsons Dementia - monitor H/H - protonix - bicarb - monitor urine output, creatinine - PO per GI - DVT prophylaxix
[2018-07-28] MEDS ORDERED: IBUPROFEN 600 MG TABLET (FP) PO PRN (12:56)
--- NOTE | 2018-07-28 13:08 | PN ---
Progress Note, Physician Chief Complaint: h/h stable no plan for EGD patient refused now has hand swelling and pain - Current Medication List Current Medications: Active Medications Amlodipine Besylate (Norvasc -) 10 mg PO DAILY [facility] Last Admin: 07/28/18 10:11 Dose: 10 mg Cefuroxime Axetil (Ceftin -) 500 mg PO BID [facility] Escitalopram Oxalate (Lexapro -) 20 mg PO DAILY [facility] Last Admin: 07/28/18 09:37 Dose: 20 mg Ibuprofen (Motrin -) 600 mg PO Q8H PRN PRN Reason: PAIN LEVEL 7 - 10 Levofloxacin (Levaquin -) 250 mg PO DAILY@0600 [facility] Last Admin: 07/28/18 06:36 Dose: 250 mg Levothyroxine Sodium (Synthroid -) 100 mcg PO DAILY@0700 [facility] Last Admin: 07/28/18 06:36 Dose: 100 mcg Pantoprazole Sodium (Protonix -) 40 mg PO BID [facility] Last Admin: 07/28/18 09:36 Dose: 40 mg Sodium Bicarbonate (Sodium Bicarbonate -) 650 mg PO TID [facility] Last Admin: 07/28/18 06:36 Dose: 650 mg Tamsulosin HCl (Flomax -) 0.4 mg PO DAILY@0830 [facility] Last Admin: 07/28/18 09:36 Dose: 0.4 mg Thiamine HCl (Vitamin B1 -) 100 mg PO TID [facility] Last Admin: 07/28/18 06:36 Dose: 100 mg - Objective Vital Signs: Vital Signs Temperature 98.3 F 07/28/18 10:00 Pulse Rate 64 07/28/18 10:00 Respiratory Rate 20 07/28/18 10:00 Blood Pressure 150/72 07/28/18 10:00 O2 Sat by Pulse Oximetry (%) 100 07/27/18 09:00 Constitutional: Yes: Calm Cardiovascular: Yes: Regular Rate and Rhythm, S1, S2 Respiratory: Yes: CTA Bilaterally Gastrointestinal: Yes: Normal Bowel Sounds, Soft Musculoskeletal: Yes: Other (hand swelling and joints MCP warm tender to touch) Edema: Yes Neurological: Yes: Alert, Oriented Labs: CBC, BMP 07/27/18 06:40 07/27/18 06:40 INR, PTT INR 0.95 (0.83-1.09) 07/18/18 11:00 Problem List - Problems (1) Arthritis Assessment/Plan: tramadol for pain PPI monitor h/h low dose steroids check uric acid level Rhen consult Code(s): M19.90 - UNSPECIFIED OSTEOARTHRITIS, UNSPECIFIED SITE (2) GIB (gastrointestinal bleeding) Assessment/Plan: h/h stable- refused EGD PPI Code(s): K92.2 - GASTROINTESTINAL HEMORRHAGE, UNSPECIFIED (3) Anemia Assessment/Plan: recheck stool occult blood again h/h montor Code(s): D64.9 - ANEMIA, UNSPECIFIED Qualifiers: Anemia type: unspecified type Qualified Code(s): D64.9 - Anemia, unspecified (4) Hypothyroid Assessment/Plan: tsh elevated synthroid dose po Code(s): E03.9 - HYPOTHYROIDISM, UNSPECIFIED (5) CKD (chronic kidney disease) Assessment/Plan: creatinine is stable inc bun is secondary to GIB- trending down Code(s): N18.9 - CHRONIC KIDNEY DISEASE, UNSPECIFIED Qualifiers: Chronic kidney disease stage: unspecified stage Qualified Code(s): N18.9 - Chronic kidney disease, unspecified (6) Hypernatremia Assessment/Plan: na is better today improved Code(s): E87.0 - HYPEROSMOLALITY AND HYPERNATREMIA
[2018-07-28] MEDS ORDERED: traMADol HCL 50 MG TABLET PO PRN (13:10)
[2018-07-28 14:18] LABS: BASO % 1.1 % (0-2.0); EOS % 3.6 % (0-4.5); HEMATOCRIT 29.1 % (32.4-45.2); HEMOGLOBIN 9.9 GM/dL (10.7-15.3); LYMPH % 9.6 % (8-40); MCH 30.1 pg (25.7-33.7); MEAN CELL VOLUME 88.3 fl (80-96); MEAN PLT VOLUME 7.4 fl (7.5-11.1); MONO % 9.6 % (3.8-10.2); NEUT % 76.1 % (42.8-82.8); PLATELET COUNT 460 K/MM3 (134-434); RBC 3.29 M/mm3 (3.60-5.2); RDW 16.9 % (11.6-15.6); WHITE BLOOD COUNT 6.8 K/mm3 (4.0-10.0)
[2018-07-28 14:38] LABS: ALBUMIN 2.3 g/dl (3.4-5.0); BILIRUBIN,TOTAL 0.3 mg/dL (0.2-1); CREATININE 1.9 mg/dL (0.55-1.3); POTASSIUM 3.9 mmol/L (3.5-5.1); TOT PROT 5.4 g/dl (6.4-8.2); URIC ACID 8.7 mg/dL (2.6-7.2)
[2018-07-28] MEDS: predniSONE 10 MG TABLET (UD) PO SCH (14:48)
[2018-07-28] MEDS: CEFUROXIME AXETIL 500 MG TABLET PO SCH ×2 (14:48→22:50)
--- NOTE | 2018-07-28 15:11 | PN ---
Progress Note, Physician History of Present Illness: Pt seen and examined at bedside. She is awake and alert. She denies shortness of breath. - Current Medication List Current Medications: Active Medications Amlodipine Besylate (Norvasc -) 10 mg PO DAILY [facility] Last Admin: 07/28/18 10:11 Dose: 10 mg Cefuroxime Axetil (Ceftin -) 500 mg PO BID [facility] Last Admin: 07/28/18 14:48 Dose: 500 mg Escitalopram Oxalate (Lexapro -) 20 mg PO DAILY [facility] Last Admin: 07/28/18 09:37 Dose: 20 mg Levothyroxine Sodium (Synthroid -) 100 mcg PO DAILY@0700 [facility] Last Admin: 07/28/18 06:36 Dose: 100 mcg Pantoprazole Sodium (Protonix -) 40 mg PO BID [facility] Last Admin: 07/28/18 09:36 Dose: 40 mg Prednisone (Deltasone -) 30 mg PO DAILY [facility] Last Admin: 07/28/18 14:48 Dose: 30 mg Sodium Bicarbonate (Sodium Bicarbonate -) 650 mg PO TID [facility] Last Admin: 07/28/18 14:44 Dose: 650 mg Tamsulosin HCl (Flomax -) 0.4 mg PO DAILY@0830 [facility] Last Admin: 07/28/18 09:36 Dose: 0.4 mg Thiamine HCl (Vitamin B1 -) 100 mg PO TID [facility] Last Admin: 07/28/18 14:44 Dose: 100 mg Tramadol HCl (Ultram -) 25 mg PO Q6H PRN PRN Reason: PAIN LEVEL 7 - 10 - Objective Vital Signs: Vital Signs Temperature 98.3 F 07/28/18 10:00 Pulse Rate 64 07/28/18 10:00 Respiratory Rate 20 07/28/18 10:00 Blood Pressure 150/72 07/28/18 10:00 O2 Sat by Pulse Oximetry (%) 98 07/28/18 09:00 Constitutional: Yes: Calm Eyes: Yes: Conjunctiva Clear HENT: Yes: Atraumatic Cardiovascular: Yes: S1, S2 Respiratory: Yes: CTA Bilaterally Gastrointestinal: Yes: Normal Bowel Sounds, Soft Genitourinary: Yes: WNL Musculoskeletal: Yes: WNL Edema: LLE: Trace, RLE: Trace Neurological: Yes: Oriented Psychiatric: Yes: Oriented Labs: CBC, BMP 07/28/18 13:52 07/28/18 13:52 INR, PTT INR 0.95 (0.83-1.09) 07/18/18 11:00 Problem List - Problems (1) GIB (gastrointestinal bleeding) Code(s): K92.2 - GASTROINTESTINAL HEMORRHAGE, UNSPECIFIED (2) Anemia Code(s): D64.9 - ANEMIA, UNSPECIFIED Qualifiers: Anemia type: unspecified type Qualified Code(s): D64.9 - Anemia, unspecified (3) CKD (chronic kidney disease) Code(s): N18.9 - CHRONIC KIDNEY DISEASE, UNSPECIFIED Qualifiers: Chronic kidney disease stage: unspecified stage Qualified Code(s): N18.9 - Chronic kidney disease, unspecified (4) HTN (hypertension) Code(s): I10 - ESSENTIAL (PRIMARY) HYPERTENSION Qualifiers: Hypertension type: unspecified Qualified Code(s): I10 - Essential (primary ) hypertension Assessment/Plan Current Medications Generic Name Dose Route Start Last Admin Trade Name Freq PRN Reason Stop Dose Admin Amlodipine Besylate 10 mg 07/22/18 10:00 07/28/18 10:11 Norvasc - PO 10 mg DAILY [facility] Administration Cefuroxime Axetil 500 mg 07/28/18 13:00 07/28/18 14:48 Ceftin - PO 500 mg BID [facility] Administration Escitalopram Oxalate 20 mg 07/22/18 10:00 07/28/18 09:37 Lexapro - PO 20 mg DAILY [facility] Administration Levothyroxine Sodium 100 mcg 07/22/18 07:00 07/28/18 06:36 Synthroid - PO 100 mcg DAILY@0700 [facility] Administration Pantoprazole Sodium 40 mg 07/26/18 22:00 07/28/18 09:36 Protonix - PO 40 mg BID [facility] Administration Prednisone 30 mg 07/28/18 13:15 07/28/18 14:48 Deltasone - PO 30 mg DAILY [facility] Administration Sodium Bicarbonate 650 mg 07/22/18 14:00 07/28/18 14:44 Sodium Bicarbonate - PO 650 mg TID [facility] Administration Tamsulosin HCl 0.4 mg 07/22/18 08:30 07/28/18 09:36 Flomax - PO 0.4 mg DAILY@0830 [facility] Administration Thiamine HCl 100 mg 07/26/18 22:00 07/28/18 14:44 Vitamin B1 - PO 100 mg TID [facility] Administration Tramadol HCl 25 mg 07/28/18 13:10 Ultram - PO Q6H PRN PAIN LEVEL 7 - 10 Impression 1. CKD 2. right renal cyst 3. toe ulcer 4. hypothryoid 5. dementia 6. parkinsons 7. HTN 8. gout 9. uremia 10. anemia 11. GI bleed 12. LUCERO 13. resp failure Plan - prednisone can cause an elevation of bun - pt tolerating diet - cont po bicarb - avoid nsaids - avoid nephrotoxins Dr John
--- NOTE | 2018-07-28 18:52 | PN ---
Progress Note (short form) - Note Progress Note: Patient now refusing Endoscopic evaluation. Goals of care need to be clarified. Continue PPI therapy Please recall when patient is agreeable, can give consent and mental status permits intervention. Problem List - Problems (1) GIB (gastrointestinal bleeding) Code(s): K92.2 - GASTROINTESTINAL HEMORRHAGE, UNSPECIFIED
[2018-07-29] MEDS ORDERED: PT OWN MED DRAWER 7, Y5N ONE (02:32)
[2018-07-29] MEDS: LEVOTHYROXINE NA 100 MCG TABLET (FP) PO SCH (06:40)
[2018-07-29] MEDS: THIAMINE HCL 100 MG TABLET (FP) PO SCH ×2 (06:40→15:14)
[2018-07-29] MEDS: SODIUM BICARBONATE 650 MG TABLET PO SCH ×2 (06:41→15:15)
[2018-07-29] MEDS: CEFUROXIME AXETIL 500 MG TABLET PO SCH (10:40)
[2018-07-29] MEDS: ESCITALOPRAM OXALATE 20 MG TABLET (FP) PO SCH (10:40)
[2018-07-29] MEDS: predniSONE 10 MG TABLET (UD) PO SCH (10:40)
[2018-07-29] MEDS: amLODIPine BESYLATE 10 MG TABLET (FP) PO SCH (10:40)
[2018-07-29] MEDS: PANTOPRAZOLE 40 MG TABLET (FP) PO SCH (10:40)
[2018-07-29] MEDS: TAMSULOSIN HCL 0.4 MG CAP PO SCH (10:42)
[2018-07-29] MEDS ORDERED: LEVOTHYROXINE NA 100 MCG TABLET (FP) PO SCH (11:48)
--- NOTE | 2018-07-29 11:48 | DS ---
Physical Examination Vital Signs: Vital Signs Temperature 97.9 F 07/29/18 06:00 Pulse Rate 59 L 07/29/18 06:00 Respiratory Rate 18 07/29/18 06:00 Blood Pressure 135/69 07/29/18 06:00 O2 Sat by Pulse Oximetry (%) 100 07/28/18 21:00 Constitutional: Yes: Calm, Thin Cardiovascular: Yes: Regular Rate and Rhythm, S1, S2 Respiratory: Yes: CTA Bilaterally Gastrointestinal: Yes: Normal Bowel Sounds, Soft Extremities: Yes: Other (hand joints erythema and swelling improved ,tenderness and warmth improved) Neurological: Yes: Alert, Oriented Labs: CBC, BMP 07/28/18 13:52 07/28/18 13:52 Discharge Summary Reason For Visit: GASTROINTESINAL HEMORRHAGE Current Active Problems Arthritis (Acute) GIB (gastrointestinal bleeding) (Acute) Hypernatremia (Acute) Hospital Course: Admission Chief Complaint: Abnormal lab results History of Present Illness: Patient is a 77 y/o female with past medical history of anemia, COPD, HTN, HLD, Parkinson's Disease, Failure to Thrive. Patient was transferred from [facility] for low Hg result, [place] home papers say Hg 6.2. In ER noted with Hg 5.1, melena, and an episode of hematemesis. Patient was then intubated to protect airway. patient in ICU intubated sedated got PRBC , gi saw patient no EGD done as patient refused, now h/h better and bun has improved extubated and transferred to floor gouty arthtitis flare - prednisone, tramadol for pain and allopurinol 100mg po daily starting next week UTI On levaquin changed to ceftin hypothyroid: synthroid 100mcg daily Condition: Guarded - Instructions Diet, Activity, Other Instructions: prednisone taper : 30mg daily for 2 days then 20mg for 2 days, 10mg for one day stop allopurinol 100mg po daily start from august 01 daily for inc uric acid level synthroid dose 125mcg po daily recheck TSH In 4 weeks Disposition: [facility] - Home Medications Comprehensive Discharge Medication List: Ambulatory Orders Amlodipine Besylate [Norvasc -] 10 mg PO DAILY 05/27/18 Escitalopram Oxalate [Lexapro -] 20 mg PO DAILY 05/27/18 Latanoprost 0.005% Eye Drops [Xalatan 0.005% Eye Drops -] 1 drop OP HS 05/27/18 Levothyroxine [Synthroid -] 100 mcg PO DAILY 05/27/18 Polyethylene Glycol 3350 [Miralax 119 gm Btl -] 17 gm PO DAILY 05/27/18 Ferrous Sulfate [Feosol] 325 mg PO BID ud 06/04/18 Pantoprazole Sodium [Protonix -] 40 mg PO BID tablet.ec 06/04/18 Tamsulosin HCl [Flomax] 0.4 mg PO DAILY #30 tab 06/27/18 Metoprolol Succinate [Toprol Xl] 25 mg PO DAILY 07/18/18
[2018-07-29 13:17] LABS: BASO % 0.3 % (0-2.0); EOS % 0.1 % (0-4.5); HEMATOCRIT 31.7 % (32.4-45.2); HEMOGLOBIN 10.6 GM/dL (10.7-15.3); LYMPH % 10.1 % (8-40); MCH 29.3 pg (25.7-33.7); MCHC 33.5 g/dl (32.0-36.0); MEAN CELL VOLUME 87.6 fl (80-96); MEAN PLT VOLUME 7.6 fl (7.5-11.1); MONO % 5.2 % (3.8-10.2); NEUT % 84.3 % (42.8-82.8); PLATELET COUNT 521 K/MM3 (134-434); RBC 3.62 M/mm3 (3.60-5.2); RDW 16.8 % (11.6-15.6); WHITE BLOOD COUNT 6.9 K/mm3 (4.0-10.0)
[2018-07-29 13:34] LABS: ALBUMIN 2.4 g/dl (3.4-5.0); BILIRUBIN,TOTAL 0.2 mg/dL (0.2-1); CALCIUM 8.4 mg/dL (8.5-10.1); POTASSIUM 4.4 mmol/L (3.5-5.1); TOT PROT 5.9 g/dl (6.4-8.2)
--- NOTE | 2018-07-29 14:31 | PN ---
Progress Note, Physician History of Present Illness: Pt seen and examined at bedside. She is refusing further treatment. - Current Medication List Current Medications: Active Medications Amlodipine Besylate (Norvasc -) 10 mg PO DAILY [facility] Last Admin: 07/29/18 10:40 Dose: 10 mg Cefuroxime Axetil (Ceftin -) 500 mg PO BID [facility] Last Admin: 07/29/18 10:40 Dose: 500 mg Escitalopram Oxalate (Lexapro -) 20 mg PO DAILY [facility] Last Admin: 07/29/18 10:40 Dose: 20 mg Levothyroxine Sodium 100 mcg/ (Levothyroxine Sodium 25 mcg) 125 mcg PO DAILY@ 0700 [facility] Pantoprazole Sodium (Protonix -) 40 mg PO BID [facility] Last Admin: 07/29/18 10:40 Dose: 40 mg Prednisone (Deltasone -) 30 mg PO DAILY [facility] Last Admin: 07/29/18 10:40 Dose: 30 mg Sodium Bicarbonate (Sodium Bicarbonate -) 650 mg PO TID [facility] Last Admin: 07/29/18 06:41 Dose: 650 mg Tamsulosin HCl (Flomax -) 0.4 mg PO DAILY@0830 [facility] Last Admin: 07/29/18 10:42 Dose: 0.4 mg Thiamine HCl (Vitamin B1 -) 100 mg PO TID [facility] Last Admin: 07/29/18 06:40 Dose: 100 mg Tramadol HCl (Ultram -) 25 mg PO Q6H PRN PRN Reason: PAIN LEVEL 7 - 10 Last Admin: 07/28/18 15:48 Dose: 25 mg - Objective Vital Signs: Vital Signs Temperature 97.9 F 07/29/18 06:00 Pulse Rate 59 L 07/29/18 06:00 Respiratory Rate 18 07/29/18 06:00 Blood Pressure 135/69 07/29/18 06:00 O2 Sat by Pulse Oximetry (%) 100 07/28/18 21:00 Constitutional: Yes: Calm Eyes: Yes: Conjunctiva Clear HENT: Yes: Atraumatic Neck: Yes: Supple Cardiovascular: Yes: S1, S2 Respiratory: Yes: CTA Bilaterally Gastrointestinal: Yes: Soft Genitourinary: Yes: WNL Musculoskeletal: Yes: WNL Edema: No Neurological: Yes: Oriented Psychiatric: Yes: Oriented Labs: CBC, BMP 07/29/18 12:36 07/29/18 12:36 INR, PTT INR 0.95 (0.83-1.09) 07/18/18 11:00 Problem List - Problems (1) GIB (gastrointestinal bleeding) Code(s): K92.2 - GASTROINTESTINAL HEMORRHAGE, UNSPECIFIED (2) Anemia Code(s): D64.9 - ANEMIA, UNSPECIFIED Qualifiers: Anemia type: unspecified type Qualified Code(s): D64.9 - Anemia, unspecified (3) CKD (chronic kidney disease) Code(s): N18.9 - CHRONIC KIDNEY DISEASE, UNSPECIFIED Qualifiers: Chronic kidney disease stage: unspecified stage Qualified Code(s): N18.9 - Chronic kidney disease, unspecified (4) HTN (hypertension) Code(s): I10 - ESSENTIAL (PRIMARY) HYPERTENSION Qualifiers: Hypertension type: unspecified Qualified Code(s): I10 - Essential (primary ) hypertension Assessment/Plan Current Medications Generic Name Dose Route Start Last Admin Trade Name Freq PRN Reason Stop Dose Admin Amlodipine Besylate 10 mg 07/22/18 10:00 07/29/18 10:40 Norvasc - PO 10 mg DAILY LINNEA Administration Cefuroxime Axetil 500 mg 07/28/18 13:00 07/29/18 10:40 Ceftin - PO 500 mg BID LINNEA Administration Escitalopram Oxalate 20 mg 07/22/18 10:00 07/29/18 10:40 Lexapro - PO 20 mg DAILY LINNEA Administration Levothyroxine Sodium 100 mcg/ 125 mcg 07/30/18 07:00 Levothyroxine Sodium 25 mcg PO DAILY@0700 LINNEA Pantoprazole Sodium 40 mg 07/26/18 22:00 07/29/18 10:40 Protonix - PO 40 mg BID LINNEA Administration Prednisone 30 mg 07/28/18 13:15 07/29/18 10:40 Deltasone - PO 30 mg DAILY LINNEA Administration Sodium Bicarbonate 650 mg 07/22/18 14:00 07/29/18 06:41 Sodium Bicarbonate - PO 650 mg TID LINNEA Administration Tamsulosin HCl 0.4 mg 07/22/18 08:30 07/29/18 10:42 Flomax - PO 0.4 mg DAILY@0830 LINNEA Administration Thiamine HCl 100 mg 07/26/18 22:00 07/29/18 06:40 Vitamin B1 - PO 100 mg TID LINNEA Administration Tramadol HCl 25 mg 07/28/18 13:10 07/28/18 15:48 Ultram - PO 25 mg Q6H PRN Administration PAIN LEVEL 7 - 10 Impression 1. CKD 2. right renal cyst 3. toe ulcer 4. hypothryoid 5. dementia 6. parkinsons 7. HTN 8. gout 9. uremia 10. anemia 11. GI bleed 12. LUCERO 13. resp failure Plan - monitor renal function - steroids with taper as prednisone can cause elevated in bun - pt refusing endoscopy - cont po bicarb - avoid nsaids - avoid nephrotoxins Dr John
[2018-07-29 15:51] VITALS: BP 133/58; PULSE 55; TEMP 98.4
--- NOTE | 2018-07-29 15:59 | CONSULT ---
Consult Consult Specialty:: Rheumatology - History of Present Illness History of Present Illness: 77 [facility] old female [facility] resident, with history of erosive, tophaceous gout, Parkinson's disease, dementia, HTN, HLD, CKD, COPD and hypothryoidism, admitted with drop in Hgb. On admission Hgb 6.2, she had hematemesis and melena she required intubation and transfer to ICU. At the present time in the floor, extubated and stable. She refused endoscopy. Consult for gouty arthritis. HPI Gout. The patient is a poor historian. She denies episode of acute arthritis. She was admitted in November 2017, with drainage of the left 4th toe , reported with monosodium urate crystals. X ray of the left foot revealed erosions in all MTP's in particular in the 1st. The patietn was prescribed Allopurinol however se did not continue the medication in the [facility]. 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 Laboratory work-up in the hospital: creatinine 1.2, uric acid 8.7. Yesterday she was started on Predniosne 30 mg/d - apparenlty she has not improved. 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 Cardio/Vascular: Yes: HTN, Hyperlipdemia Gastrointestinal: Yes: GI Bleed Renal/: Yes: Renal Inusuff Psych: Yes: Depression Rheumatology: Yes: Other (arthritis) Endocrine: Yes: Hypothyroidism - Past Surgical History Past Surgical History: Yes: Appendectomy, Tonsillectomy - Alcohol/Substance Use Hx Alcohol Use: No History of Substance Use: reports: None - Smoking History Smoking history: Former smoker Have you smoked in the past 12 months: No Aproximately how many cigarettes per day: 5 If you are a former smoker, when did you quit?: 5 years ago - Social History Usual Living Arrangement: Alone ADL: Support Services History of Recent Travel: No Home Medications - Allergies Allergies/Adverse Reactions: Allergies Allergy/AdvReac Type Severity Reaction Status Date / Time No Known Allergies Allergy Verified 05/27/18 17:34 - Home Medications Home Medications: Ambulatory Orders Amlodipine Besylate [Norvasc -] 10 mg PO DAILY 05/27/18 Escitalopram Oxalate [Lexapro -] 20 mg PO DAILY 05/27/18 Latanoprost 0.005% Eye Drops [Xalatan 0.005% Eye Drops -] 1 drop OP HS 05/27/18 Polyethylene Glycol 3350 [Miralax 119 gm Btl -] 17 gm PO DAILY 05/27/18 Ferrous Sulfate [Feosol] 325 mg PO BID ud 06/04/18 Pantoprazole Sodium [Protonix -] 40 mg PO BID tablet.ec 06/04/18 Tamsulosin HCl [Flomax] 0.4 mg PO DAILY #30 tab 06/27/18 Allopurinol [Zyloprim -] 100 mg PO DAILY #30 tablet 07/29/18 Cefuroxime Axetil [Ceftin -] 500 mg PO BID #10 tablet MDD 2 07/29/18 Levothyroxine [Synthroid -] 125 mcg PO DAILY@0700 #30 tablet MDD 1 07/29/18 Sodium Bicarbonate - 650 mg PO TID #20 tablet MDD 2 07/29/18 Tamsulosin HCl [Flomax -] 0.4 mg PO DAILY@0830 #30 cap.er.24h MDD 1 07/29/18 predniSONE [Deltasone -] 30 mg PO DAILY #10 tablet 07/29/18 Family Disease History - Family Disease History Family Disease History: Other: Father ( 70's: pancreatic Ca), Mother (: 70's: [place]), Brother (None), Sister (None), Daughter (3 daughters, 2 , ? causes) Review of Systems - Review of Systems Constitutional: reports: Malaise Eyes: reports: No Symptoms HENT: reports: No Symptoms Cardiovascular: reports: No Symptoms Respiratory: reports: No Symptoms Gastrointestinal: reports: Melena, Vomiting Blood Musculoskeletal: reports: Other (See HPI) Physical Exam Vital Signs: Vital Signs Temperature 97.9 F 07/29/18 06:00 Pulse Rate 59 L 07/29/18 06:00 Respiratory Rate 18 07/29/18 06:00 Blood Pressure 135/69 07/29/18 06:00 O2 Sat by Pulse Oximetry (%) 100 07/28/18 21:00 Constitutional: Yes: Moderate Distress Eyes: Yes: WNL HENT: Yes: WNL Neck: Yes: WNL Cardiovascular: Yes: WNL Respiratory: Yes: WNL Gastrointestinal: Yes: WNL Musculoskeletal: Yes: Other (In the left hand swelling of the wrist, 2nd and 5 th PIPs and tenderness in all DIPs. in the right hand swelling of the 2nd and 3rd PIPs. No active joints in lower limbs.) Labs: CBC, BMP 07/29/18 12:36 07/29/18 12:36 Laboratory Tests 07/24/18 07/28/18 07/29/18 13:05 13:52 12:36 Uric Acid 8.7 H Calcium 8.4 L Total Bilirubin 0.2 AST 12 L ALT 9 L Alkaline Phosphatase 87 Total Protein 5.9 L Albumin 2.4 L Urine Color Yellow Urine Appearance Turbid Urine pH 6.0 Ur Specific [place] 1.008 L Urine Protein 2+ H Urine Glucose (UA) Negative Urine Ketones Negative Urine Blood 1+ H Urine Nitrite Negative Urine Bilirubin Negative Urine Urobilinogen 0.2 Ur Leukocyte Esterase 3+ H Urine WBC (Auto) 405 Urine RBC (Auto) 3 Problem List - Problems (1) Gout Assessment/Plan: 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 The patient was started on Predniosne 30 mg/d and she is scheduled to start Allopurinol The dose should be adjusted to decerase Uric acid to 6 mg/d or less. Code(s): M10.9 - GOUT, UNSPECIFIED
[2018-07-30] MEDS ORDERED: LEVOTHYROXINE 100 MCG, LEVOTHYROXINE 25 MCG PO SCH (07:00)
== END 2018-07-29 16:56 | DRG 377 ==
LOC: JER 10:51 → JERBED 12:50 → JICU 19:19 → J5S 07-21 23:08
PROVIDERS: ADMIT Family Medicine; ATTEND Family Medicine
PROC: 0CHY7BZ Insertion of Airway into Mouth and Throat, Via Natural or Artificial Opening (ICD-10-PCS; principal; 2018-07-18)
PROC: 5A1945Z Respiratory Ventilation, 24-96 Consecutive Hours (ICD-10-PCS; 2018-07-18)
PROC: 05HN33Z Insertion of Infusion Device into Left Internal Jugular Vein, Percutaneous Approach (ICD-10-PCS; 2018-07-18)
PROC: B514ZZA Fluoroscopy of Left Jugular Veins, Guidance (ICD-10-PCS; 2018-07-18)
PROC: 30233N1 Transfusion of Nonautologous Red Blood Cells into Peripheral Vein, Percutaneous Approach (ICD-10-PCS; 2018-07-18)
DX: K92.2 Gastrointestinal hemorrhage, unspecified (principal); J96.00 Acute respiratory failure, unspecified whether with hypoxia or hypercapnia; G93.41 Metabolic encephalopathy; L97.528 Non-pressure chronic ulcer of other part of left foot with other specified severity; D62 Acute posthemorrhagic anemia; N17.9 Acute kidney failure, unspecified; I24.8 Other forms of acute ischemic heart disease; E87.0 Hyperosmolality and hypernatremia; E87.2 Acidosis; N39.0 Urinary tract infection, site not specified; D64.9 Anemia, unspecified; J44.9 Chronic obstructive pulmonary disease, unspecified; I10 Essential (primary) hypertension; L03.032 Cellulitis of left toe; E78.5 Hyperlipidemia, unspecified; G20 Parkinson's disease; R62.7 Adult failure to thrive; Z68.20 Body mass index [BMI] 20.0-20.9, adult; E03.9 Hypothyroidism, unspecified; F32.9 Major depressive disorder, single episode, unspecified; K21.9 Gastro-esophageal reflux disease without esophagitis; I12.9 Hypertensive chronic kidney disease with stage 1 through stage 4 chronic kidney disease, or unspecified chronic kidney disease; N18.9 Chronic kidney disease, unspecified; M10.9 Gout, unspecified; N28.1 Cyst of kidney, acquired; D72.829 Elevated white blood cell count, unspecified; F02.80 Dementia in other diseases classified elsewhere, unspecified severity, without behavioral disturbance, psychotic disturbance, mood disturbance, and anxiety; E87.5 Hyperkalemia; G62.9 Polyneuropathy, unspecified; B96.20 Unspecified Escherichia coli [E. coli] as the cause of diseases classified elsewhere; Z87.891 Personal history of nicotine dependence
CPT/HCPCS: 36415; 36430; 36511; 36600; 71045-TC-FY; 80048; 80053; 80061; 81003; 82272; 82570; 82607; 82803; 82962; 83036; 83540; 83550; 83721; 83735; 83880; 84100; 84156; 84436; 84439; 84443; 84481; 84484; 84550; 85025; 85027; 85610; 85730; 86593; 86850; 86900; 86901; 86922; 87086; 87186; 93005; 93010; 94002; 97161-GP; 99285-25; J0131; J7030; P9038; P9058

== ENCOUNTER 2018-09-06 14:59 | Inpatient (IN) | payer OTHER, BC ==
--- NOTE | 2018-09-06 15:56 | PDOC ---
History of Present Illness - General Chief Complaint: Blood Transfusion Stated Complaint: ABNORMAL LABS Time Seen by Provider: 09/06/18 15:37 History Source: Patient Exam Limitations: Clinical Condition (hard of hearing) - History of Present Illness Initial Comments: 77 yo F PMH Parkinson's, CKD, failure to thrive, COPD, sent over from [facility] for hemoglobin at 5.4. Patient states "I feel tired all the time, I'm exhausted". She otherwise says that she feels like her normal self. Denies CP or SOB. Denies black stools or hematuria. Denies feeling lightheaded or dizzy. Also denies constipation/diarrhea, fevers/chills, N/V, recent illness. 09/06/18 15:49 Notably, was seen last month with hematemesis and GI bleed, was intubated and sent to the ICU. 09/06/18 16:06 Past History - Past Medical History Allergies/Adverse Reactions: Allergies Allergy/AdvReac Type Severity Reaction Status Date / Time No Known Allergies Allergy Verified 09/06/18 15:15 Home Medications: Ambulatory Orders Amlodipine Besylate [Norvasc -] 10 mg PO DAILY 05/27/18 Escitalopram Oxalate [Lexapro -] 20 mg PO DAILY 05/27/18 Latanoprost 0.005% Eye Drops [Xalatan 0.005% Eye Drops -] 1 drop OP HS 05/27/18 Polyethylene Glycol 3350 [Miralax 119 gm Btl -] 17 gm PO DAILY 05/27/18 Ferrous Sulfate [Feosol] 325 mg PO BID ud 06/04/18 Pantoprazole Sodium [Protonix -] 40 mg PO BID tablet.ec 06/04/18 Allopurinol [Zyloprim -] 100 mg PO DAILY #30 tablet 07/29/18 Levothyroxine [Synthroid -] 125 mcg PO DAILY@0700 #30 tablet MDD 1 07/29/18 Tamsulosin HCl [Flomax -] 0.4 mg PO DAILY@0830 #30 cap.er.24h MDD 1 07/29/18 Anemia: Yes Asthma: No Cancer: No Cardiac Disorders: No CVA: No COPD: Yes CHF: No Dementia: Yes Diabetes: No GI Disorders: No Disorders: Yes (incont) HTN: Yes Hypercholesterolemia: Yes Liver Disease: No Seizures: No Thyroid Disease: Yes (hypothyroidsm) - Surgical History Abdominal Surgery: No Appendectomy: Yes Cardiac Surgery: No Cholecystectomy: No Lung Surgery: No Neurologic Surgery: No Orthopedic Surgery: No - Immunization History Immunization Up to Date: Yes - Suicide/Smoking/Psychosocial Hx Smoking History: Never smoked Have you smoked in the past 12 months: No Number of Cigarettes Smoked Daily: 5 If you are a former smoker, when did you quit?: 5 years ago Hx Alcohol Use: No Drug/Substance Use Hx: No Substance Use Type: None Hx Substance Use Treatment: No Review of Systems - Review of Systems Comments:: Limited patient cooperation 09/06/18 15:59 Constitutional: Yes: Weakness. No: Chills, Fever HEENTM: Yes: Hearing Loss (chronic). No: Eye Pain, Double Vision, Throat Pain, Throat Swelling, Difficulty Swallowing Respiratory: No: Cough, Orthopnea, Shortness of Breath Cardiac (ROS): No: Chest Pain, Edema, Lightheadedness, Palpitations ABD/GI: No: Constipated, Diarrhea, Nausea, Vomiting Neurological: No: Headache, Numbness, Paresthesia, Seizure, Tingling *Physical Exam - Vital Signs Last Vital Signs Temp Pulse Resp BP Pulse Ox 98.8 F 67 18 156/79 09/06/18 15:17 09/06/18 15:17 09/06/18 15:17 09/06/18 15:17 - Physical Exam General Appearance: Yes: Appropriately Dressed. No: Nourished (failure to thrive), Apparent Distress HEENT: positive: EOMI, VERENICE, Normal ENT Inspection, Normal Voice, Hearing Decreased Neck: positive: Trachea midline, Normal Thyroid, Supple Respiratory/Chest: positive: Lungs Clear, Normal Breath Sounds. negative: Respiratory Distress Cardiovascular: positive: Regular Rhythm, Regular Rate Gastrointestinal/Abdominal: positive: Normal Bowel Sounds, Soft. negative: Tender Musculoskeletal: negative: CVA Tenderness Extremity: negative: Normal Range of Motion (hands arthritic, very limited ROM) Integumentary: positive: Normal Color, Warm Neurologic: positive: vascular surgeon II-XII NML intact, Alert. negative: Fully Oriented ( not cooperative), Motor Strength 5/5 (Strength 4/5 in all extremities) ED Treatment Course - LABORATORY CBC & Chemistry Diagram: 09/06/18 16:30 09/06/18 16:30 Medical Decision Making - Medical Decision Making CBC reviewed, 5.7 09/06/18 17:04 EKG reviewed, NSR, LVH, no STEMI. 09/06/18 17:06 Positive heme occult. 09/06/18 17:25 Discussed case with hospitalist, will admit to Dr. Cabrera. Will transfuse another unit pRBCs if not admitted soon. 09/06/18 18:19 *DC/Admit/Observation/Transfer Diagnosis at time of Disposition: Anemia - Discharge Dispostion Condition at time of disposition: Improved Decision to Admit order: Yes - Referrals Referrals: Jose Cai [Primary Care Provider] - - Patient Instructions - Post Discharge Activity
[2018-09-06 16:57] LABS: BASO % 0.8 % (0-2.0); EOS % 0.1 % (0-4.5); LYMPH % 12.8 % (8-40); MCH 29.3 pg (25.7-33.7); MCHC 33.6 g/dl (32.0-36.0); MEAN CELL VOLUME 87.1 fl (80-96); MEAN PLT VOLUME 7.6 fl (7.5-11.1); MONO % 5.2 % (3.8-10.2); NEUT % 81.1 % (42.8-82.8); PLATELET COUNT 424 K/MM3 (134-434); RBC 1.95 M/mm3 (3.60-5.2); RDW 18.2 % (11.6-15.6); WHITE BLOOD COUNT 9.4 K/mm3 (4.0-10.0)
[2018-09-06 16:59] LABS: INR 1.03 (0.83-1.09); PROTHROMBIN TIME (PATIENT) 12.2 SEC (9.7-13.0)
[2018-09-06 17:02] LABS: HEMOGLOBIN 5.7 GM/dL (10.7-15.3)
[2018-09-06 17:06] LABS: ALBUMIN 3.2 g/dl (3.4-5.0); BILIRUBIN,TOTAL 0.3 mg/dL (0.2-1); BLOOD UREA NITROGEN 91.5 mg/dL (7-18); CALCIUM 8.9 mg/dL (8.5-10.1); CREATININE 2.1 mg/dL (0.55-1.3); POTASSIUM 4.4 mmol/L (3.5-5.1); TOT PROT 6.7 g/dl (6.4-8.2)
--- NOTE | 2018-09-06 17:30 | PDOC ---
Documentation entered by Lenin Mack SCRIBE, acting as scribe for Nusrat Langston MD. Nusrat Langston MD: This documentation has been prepared by the vitoeMartina Elijah, SCRIBE, under my direction and personally reviewed by me in its entirety. I confirm that the documentation accurately reflects all work, treatment, procedures, and medical decision making performed by me. Attending Attestation - Resident Resident Name: Adan Guerrero - ED Attending Attestation I have performed the following: I have examined & evaluated the patient, The case was reviewed & discussed with the resident, I agree w/resident's findings & plan, Exceptions are as noted - HPI HPI: 09/06/18 17:15 Patient is a 77 year old female with a significant past medical history of MH Parkinson's, CKD, GI bleeds, and COPD who presents to the ED from [facility] with a hemoglobin of 5.4. At this time the patient only has complaints of weakness and fatigue. Denies Abdominal pain, CP, and SOB Allergies: NKA PCP: Dr. Cai - Physicial Exam PE: GENERAL: Awake, alert, and fully oriented, in no acute distress. +Pallor HEAD: No signs of trauma EYES: PERRLA, EOMI, sclera anicteric, conjunctiva pale ENT: Auricles normal inspection, hearing grossly normal, nares patent, oropharynx clear without exudates. Moist mucosa NECK: Normal ROM, supple, no lymphadenopathy, JVD, or masses LUNGS: Breath sounds equal, clear to auscultation bilaterally. No wheezes, and no crackles HEART: Regular rate and rhythm, normal S1 and S2, no murmurs, rubs or gallops ABDOMEN: Soft, nontender, normoactive bowel sounds. No guarding, no rebound. No masses EXTREMITIES: Normal range of motion, no edema. No clubbing or cyanosis. No cords, erythema, or tenderness NEUROLOGICAL: Cranial nerves II through XII grossly intact. Normal speech, normal gait. Motor and sensation intact SKIN: Warm, dry, normal turgor, no rashes or lesions noted. - Medical Decision Making Pt with symptomatic anemia. History of prior GI bleed in past. Will check labs, guaiac. Will admit for transfusion. 09/06/18 17:30 Guaiac positive. Will give protonix push and drip. Admit for GI workup, transfusion.
[2018-09-06] MEDS ORDERED: PANTOPRAZOLE SODIUM 40 MG VIAL IVPUSH ONE (17:36)
[2018-09-06] MEDS ORDERED: PANTOPRAZOLE SODIUM 40 MG/100 ML BAG IVPB ONE (17:51)
[2018-09-06] MEDS ORDERED: PANTOPRAZOLE SODIUM 40 MG VIAL ONE (17:52)
[2018-09-06] MEDS: PANTOPRAZOLE SODIUM 80 MG in SODIUM CHLORIDE 100 ML IVPB SCH (17:59)
[2018-09-06] MEDS ORDERED: ACETAMINOPHEN 325 MG TABLET (FP) PO PRN (18:19)
[2018-09-06 18:27] LABS: URINE APPEARANCE TURBID; URINE BILIRUBIN NEGATIVE (NEGATIVE); URINE COLOR YELLOW; URINE GLUCOSE (UA) NEGATIVE (NEGATIVE); URINE KETONE NEGATIVE (NEGATIVE)
[2018-09-06 18:28] LABS: PH,URINE 6.5 (5.0-8.0); URINE NITRITE NEGATIVE (NEGATIVE); URINE PROTEIN 2+ (NEGATIVE); URINE UROBILINOGEN 0.2 mg/dL (0.2-1.0)
[2018-09-06 18:29] LABS: EPI CELLS 17.2 /HPF (0-5/HPF); HYALINE CASTS 395.07 /lpf (0-8); URINE BACTERIA 528.9 /hpf (NEGATIVE); URINE LEUK ESTERASE 3+ (NEGATIVE); URINE RBC 45 /hpf (0-4); URINE WBC 2854.5 /hpf (0-5)
[2018-09-06] MEDS: LACTATED RINGERS SOLUTION 1,000 ML IV SCH (18:48)
--- NOTE | 2018-09-06 20:53 | HP ---
Admitting History and Physical - Primary Care Physician PCP: Jose Cai - Admission Chief Complaint: fatigue History of Present Illness: 77 year old F from [facility] with past medical history significant for Parkinson's disease, dementia, HTN, HLD, CKD stage 5, GI bleed, COPD, depression , hypothyroidism, GERD, gout transferred from [place] after being found to have H/H 5.4/17.6 on routine CBC. Ms. Colon reported feeling fatigued over the last few days, but does not offer any other complaints. Of note she has been hospitalized multiple times over the last 2.5 months for GI bleed, but refuses endoscopic evaluation. Admission Dates May 27 2018: hgb 5.2, hct 16 Jun 23 2018: pt with melenotic school, in ER found to have h/h/ 3.9/11.3 Jul 18 2018: In ER pt noted with Hg 5.1, melena, and an episode of hematemesis. Pt required intubation to protect airway. On this admission in ED Vitals:BP 148/72, HR 68, T 98.7, RR 16, O2 sat 100% Labs: trop 0.06, Cr 2.1, H/H 5.7/17.0 UA: +2 protein, +2 blood, +3 Leuk, + bacteria Stool for occult blood positive. Pt given 1unit PRBC in ED, a second unit ordered by admitting service with follow up CBC at Midnight. Colonoscopy discussed with patient, currently refuses. 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 Cardiovascular: Yes: HTN, Hyperlipdemia Pulmonary: Yes: COPD Gastrointestinal: Yes: GERD, GI Bleed Renal/: Yes: Renal Inusuff Reproductive: Yes: Postmenopausal Heme/Onc: Yes: Anemia Psych: Yes: Depression Musculoskeletal: Yes: Osteoarthritis Endocrine: Yes: Hypothyroidism - Past Surgical History Past Surgical History: Yes: Appendectomy, Tonsillectomy - Smoking History Smoking history: Never smoked Have you smoked in the past 12 months: No Aproximately how many cigarettes per day: 5 If you are a former smoker, when did you quit?: 5 years ago - Alcohol/Substance Use Hx Alcohol Use: No History of Substance Use: reports: None - Social History Usual Living Arrangement: Yes: Residential ADL: Support Services Occupation: retired History of Recent Travel: No Home Medications - Allergies Allergies/Adverse Reactions: Allergies Allergy/AdvReac Type Severity Reaction Status Date / Time No Known Allergies Allergy Verified 09/06/18 15:15 - Home Medications Home Medications: Ambulatory Orders Amlodipine Besylate [Norvasc -] 10 mg PO DAILY 05/27/18 Escitalopram Oxalate [Lexapro -] 20 mg PO DAILY 05/27/18 Latanoprost 0.005% Eye Drops [Xalatan 0.005% Eye Drops -] 1 drop OP HS 05/27/18 Polyethylene Glycol 3350 [Miralax 119 gm Btl -] 17 gm PO DAILY 05/27/18 Ferrous Sulfate [Feosol] 325 mg PO BID ud 06/04/18 Pantoprazole Sodium [Protonix -] 40 mg PO BID tablet.ec 06/04/18 Allopurinol [Zyloprim -] 100 mg PO DAILY #30 tablet 07/29/18 Levothyroxine [Synthroid -] 125 mcg PO DAILY@0700 #30 tablet MDD 1 07/29/18 Tamsulosin HCl [Flomax -] 0.4 mg PO DAILY@0830 #30 cap.er.24h MDD 1 07/29/18 Family Disease History - Family Disease History Family Disease History: Other: Father ( 70's: pancreatic Ca), Mother (: 70's: [place]), Brother (None), Sister (None), Daughter (3 daughters, 2 , ? causes) Review of Systems - Review of Systems Constitutional: reports: Lethargy, Weakness Eyes: reports: No Symptoms HENT: reports: No Symptoms Neck: reports: No Symptoms Cardiovascular: reports: No Symptoms Respiratory: reports: No Symptoms Gastrointestinal: reports: No Symptoms Genitourinary: reports: No Symptoms Musculoskeletal: reports: Joint Pain, Muscle Weakness Integumentary: reports: No Symptoms Neurological: reports: Unsteady Gait, Weakness Endocrine: reports: No Symptoms Hematology/Lymphatic: reports: No Symptoms Psychiatric: reports: Depression Physical Examination Vital Signs: Vital Signs Temperature 98.0 F 09/06/18 19:02 Pulse Rate 75 09/06/18 20:05 Respiratory Rate 15 09/06/18 20:05 Blood Pressure 152/82 09/06/18 20:05 O2 Sat by Pulse Oximetry (%) 97 09/06/18 20:05 Constitutional: Yes: No Distress, Calm, Thin Eyes: Yes: Conjunctiva Clear, PERRL HENT: Yes: Atraumatic, Normocephalic Neck: Yes: Supple, Trachea Midline Cardiovascular: Yes: Regular Rate and Rhythm Respiratory: Yes: Regular, CTA Bilaterally Gastrointestinal: Yes: Normal Bowel Sounds, Soft, Hypoactive Bowel Sounds ...Rectal Exam: Yes: Deferred Renal/: Yes: Incontinence Musculoskeletal: Yes: Muscle Weakness Extremities: Yes: WNL Edema: No Peripheral Pulses WNL: Yes Peripheral Pulses: Left Radial: 2+, Right Radial: 2+, Left Doralis Pedis: 2+, Right Dorsalis Pedis: 2+ Integumentary: Yes: WNL Neurological: Yes: Alert, Oriented ...Motor Strength: WNL Psychiatric: Yes: Alert, Oriented Labs: CBC, BMP 09/06/18 16:30 09/06/18 16:30 Imaging - Results Chest X-ray: Pending (CXR 09/06/2018 Impression: results pending) Problem List - Problems (1) Prophylactic measure Assessment/Plan: turn and position [id number] IC SCDs for DVt ppx Code(s): Z29.9 - ENCOUNTER FOR PROPHYLACTIC MEASURES, UNSPECIFIED (2) Anemia Assessment/Plan: Serial CBCs GI consult placed for Dr. Jose J mi for hgb >8.0 NPO IVF PPI drip Code(s): D64.9 - ANEMIA, UNSPECIFIED (3) Asymptomatic bacteriuria Assessment/Plan: urine culture pending no abx for now trend WBC and temps Code(s): R82.71 - BACTERIURIA (4) CKD (chronic kidney disease) Assessment/Plan: BUN/Cr 95/2.1 (around baseline) trend cr and electrolytes continue IVF Code(s): N18.9 - CHRONIC KIDNEY DISEASE, UNSPECIFIED Qualifiers: Chronic kidney disease stage: unspecified stage Qualified Code(s): N18.9 - Chronic kidney disease, unspecified (5) Failure to thrive Assessment/Plan: attempt made to call friend who is listed on chart, msg left to call back daughter's number out of service Goal of care discussion to be had with family (if possible) Code(s): [id number] - Qualifiers: Failure to thrive age range: in adult Qualified Code(s): R62.7 - Adult failure to thrive (6) Gout Assessment/Plan: hold allopurinol Code(s): M10.9 - GOUT, UNSPECIFIED (7) HTN (hypertension) Assessment/Plan: hold Anti-HTN meds overnight norvasc 10mg in AM Code(s): I10 - ESSENTIAL (PRIMARY) HYPERTENSION Qualifiers: Hypertension type: unspecified Qualified Code(s): I10 - Essential (primary ) hypertension (8) Hypothyroid Assessment/Plan: synthroid 125mcg at 7am Code(s): E03.9 - HYPOTHYROIDISM, UNSPECIFIED Qualifiers: Hypothyroidism type: unspecified Qualified Code(s): E03.9 - Hypothyroidism , unspecified (9) MDD (major depressive disorder) Assessment/Plan: lexapro 20mg daily If unable to contact family, pt's capacity to make medical decisions should be re-evaluated Code(s): F32.9 - MAJOR DEPRESSIVE DISORDER, SINGLE EPISODE, UNSPECIFIED Assessment/Plan flomax 0.4mg daily to prevent urinary retention PRN APAP for pain DISPO: full code Visit type - Emergency Visit Emergency Visit: Yes ED Registration Date: 09/06/18 Care time: The patient presented to the Emergency Department on the above date and was hospitalized for further evaluation of their emergent condition. - New Patient This patient is new to me today: Yes Date on this admission: 09/06/18 - Critical Care Critical Care patient: No
[2018-09-06] MEDS ORDERED: FERROUS SO4 325 MG TABLET (FP) ONE (23:54)
[2018-09-07] MEDS: FERROUS SO4 325 MG TABLET (FP) PO SCH ×3 (00:35→22:27)
[2018-09-07] MEDS: LATANOPROST 0.005% OPHTH SOLN 2.5ML BOTTLE OD SCH (00:35)
[2018-09-07] MEDS ORDERED: PANTOPRAZOLE SODIUM 40 MG VIAL ONE ×2 (04:00→12:52)
[2018-09-07] MEDS: PANTOPRAZOLE SODIUM 80 MG in SODIUM CHLORIDE 100 ML IVPB SCH ×3 (04:10→18:03)
[2018-09-07 07:28] LABS: HEMATOCRIT 24.5 % (32.4-45.2); HEMOGLOBIN 8.6 GM/dL (10.7-15.3); MCH 29.8 pg (25.7-33.7); MEAN PLT VOLUME 7.5 fl (7.5-11.1); PLATELET COUNT 407 K/MM3 (134-434); RBC 2.89 M/mm3 (3.60-5.2); RDW 15.9 % (11.6-15.6); WHITE BLOOD COUNT 12.1 K/mm3 (4.0-10.0)
[2018-09-07 07:39] LABS: INR 0.96 (0.83-1.09); PROTHROMBIN TIME (PATIENT) 11.3 SEC (9.7-13.0)
[2018-09-07 07:42] LABS: ACTIVATED PTT 31.7 SECONDS (25.2-36.5)
[2018-09-07 08:10] LABS: ALBUMIN 3.2 g/dl (3.4-5.0); BILIRUBIN,TOTAL 1.4 mg/dL (0.2-1); BLOOD UREA NITROGEN 82.3 mg/dL (7-18); CREATININE 2.1 mg/dL (0.55-1.3); MAGNESIUM 2.5 mg/dL (1.8-2.4); N-TERMINAL BNP 24750.7 pg/ml (5-450); PHOSPHOROUS 3.8 mg/dL (2.5-4.9); TOT PROT 6.3 g/dl (6.4-8.2)
--- NOTE | 2018-09-07 08:20 | PN ---
Progress Note (short form) - Note Progress Note: Consult was placed to evaluate patient for re-current anemia. Past hospital admissions shows that she was followed by Dr. Wright. Consult placed for Dr. Wright.
--- NOTE | 2018-09-07 08:28 | PN ---
Progress Note, Physician - Current Medication List Current Medications: Active Medications Acetaminophen (Tylenol -) 650 mg PO Q6H PRN PRN Reason: PAIN LEVEL 4 - 6 Amlodipine Besylate (Norvasc -) 10 mg PO DAILY [facility] Escitalopram Oxalate (Lexapro -) 20 mg PO DAILY [facility] Ferrous Sulfate (Feosol -) 325 mg PO BID [facility] Last Admin: 09/07/18 00:35 Dose: 325 mg Pantoprazole Sodium 80 mg/ (Sodium Chloride) 100 mls @ 10 mls/hr IVPB Q10H [facility] Last Admin: 09/07/18 04:10 Dose: 10 mls/hr Lactated Ringer's (Lactated Ringers Solution) 1,000 mls @ 42 mls/hr IV ASDIR [facility] Last Admin: 09/06/18 18:48 Dose: 42 mls/hr Latanoprost (Xalatan 0.005% Eye Drops -) 1 drop OD HS [facility] Last Admin: 09/07/18 00:35 Dose: 1 drop Levothyroxine Sodium (Synthroid -) 125 mcg PO DAILY@0700 [facility] Tamsulosin HCl (Flomax -) 0.4 mg PO DAILY@0830 [facility] - Objective Vital Signs: Vital Signs Temperature 98.3 F 09/06/18 21:50 Pulse Rate 68 09/06/18 21:50 Respiratory Rate 16 09/06/18 21:50 Blood Pressure 139/51 L 09/06/18 21:50 O2 Sat by Pulse Oximetry (%) 95 09/06/18 21:50 Cardiovascular: Yes: S1, S2 Respiratory: Yes: Regular, CTA Bilaterally Gastrointestinal: Yes: Normal Bowel Sounds, Soft Neurological: Yes: Alert, Weakness Labs: CBC, BMP 09/07/18 06:30 09/07/18 06:30 INR, PTT INR 0.96 (0.83-1.09) 09/07/18 06:30 Problem List - Problems (1) Anemia Assessment/Plan: Serial CBCs GI consult placed for Dr. Gong tranfused prbc NPO IVF PPI drip Code(s): D64.9 - ANEMIA, UNSPECIFIED (2) MDD (major depressive disorder) Assessment/Plan: lexapro 20mg daily If unable to contact family, pt's capacity to make medical decisions should be re-evaluated Code(s): F32.9 - MAJOR DEPRESSIVE DISORDER, SINGLE EPISODE, UNSPECIFIED (3) CHF (congestive heart failure) Code(s): I50.9 - HEART FAILURE, UNSPECIFIED (4) CKD (chronic kidney disease) Assessment/Plan: BUN/Cr 95/2.1 (around baseline) trend cr and electrolytes continue IVF renal consult Code(s): N18.9 - CHRONIC KIDNEY DISEASE, UNSPECIFIED Qualifiers: Chronic kidney disease stage: unspecified stage Qualified Code(s): N18.9 - Chronic kidney disease, unspecified (5) COPD (chronic obstructive pulmonary disease) Code(s): J44.9 - CHRONIC OBSTRUCTIVE PULMONARY DISEASE, UNSPECIFIED (6) GIB (gastrointestinal bleeding) Assessment/Plan: -as above Code(s): K92.2 - GASTROINTESTINAL HEMORRHAGE, UNSPECIFIED (7) Failure to thrive Code(s): [id number] - Qualifiers: Failure to thrive age range: in adult Qualified Code(s): R62.7 - Adult failure to thrive (8) HTN (hypertension) Assessment/Plan: norvas 10mg Code(s): I10 - ESSENTIAL (PRIMARY) HYPERTENSION Qualifiers: Hypertension type: unspecified Qualified Code(s): I10 - Essential (primary ) hypertension
--- NOTE | 2018-09-07 10:20 | EKG ---
Test Reason : Blood Pressure : / mmHG Vent. Rate : 069 BPM Atrial Rate : 069 BPM P-R Int : 178 ms QRS Dur : 110 ms QT Int : 444 ms P-R-T Axes : 038 009 192 degrees QTc Int : 475 ms SINUS RHYTHM WITH PREMATURE ATRIAL COMPLEXES INCOMPLETE LEFT BUNDLE BRANCH BLOCK LEFT VENTRICULAR HYPERTROPHY WITH REPOLARIZATION ABNORMALITY ABNORMAL ECG WHEN COMPARED WITH ECG OF 18-JUL-2018 10:55, PREMATURE ATRIAL COMPLEXES ARE NOW PRESENT ST NO LONGER DEPRESSED IN INFERIOR LEADS ST NO LONGER DEPRESSED IN ANTEROLATERAL LEADS T WAVE AMPLITUDE HAS DECREASED IN ANTERIOR LEADS Confirmed by VENECIA HAIRSTON, KAMERON ([id number]) on 09/07/2018 10:19:57 AM Referred By: Confirmed By:KAMERON CUADRA MD
[2018-09-07] MEDS: ESCITALOPRAM OXALATE 20 MG TABLET (FP) PO SCH (10:55)
[2018-09-07] MEDS: LEVOTHYROXINE NA 125 MCG TABLET (FP) PO SCH (10:55)
[2018-09-07] MEDS: amLODIPine BESYLATE 10 MG TABLET (FP) PO SCH (10:55)
[2018-09-07] MEDS: TAMSULOSIN HCL 0.4 MG CAP PO SCH (10:55)
[2018-09-07] MEDS: LACTATED RINGERS SOLUTION 1,000 ML IV SCH ×2 (15:41→19:00)
--- NOTE | 2018-09-07 17:21 | CON.PULM ---
Consult Consult Specialty:: PULMONARY Referred by:: Dr Cabrera Reason for Consultation:: shortness of breath - History of Present Illness Chief Complaint: GI bleed History of Present Illness: 77yo female with h/o HTN, hyperlipidemia, CKD, COPD, Parkinsons, hypothyroidism , GERD, dementia, multiple prior admissions for GI bleed but never scoped due to consent issues who was [facility] for anemia. She denies shortness of breath or chest pain. No lightheadedness, dizziness or palpitations. Found to be anemic to Hgb 5.7, transfused PRBC. Still continues to refuse endoscopic evaluation. 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, Parkinson's Cardio/Vascular: Yes: HTN, Hyperlipdemia Pulmonary: Yes: COPD Gastrointestinal: Yes: GERD, GI Bleed Renal/: Yes: Renal Inusuff Psych: Yes: Depression Musculoskeletal: Yes: Osteoarthritis Rheumatology: Yes: Other (arthritis) Endocrine: Yes: Hypothyroidism - Past Surgical History Past Surgical History: Yes: Appendectomy, Tonsillectomy - Alcohol/Substance Use Hx Alcohol Use: No History of Substance Use: reports: None - Smoking History Smoking history: Never smoked Have you smoked in the past 12 months: No Aproximately how many cigarettes per day: 5 If you are a former smoker, when did you quit?: 5 years ago - Social History Usual Living Arrangement: Alone ADL: Support Services Occupation: retired History of Recent Travel: No Home Medications - Allergies Allergies/Adverse Reactions: Allergies Allergy/AdvReac Type Severity Reaction Status Date / Time No Known Allergies Allergy Verified 09/06/18 15:15 - Home Medications Home Medications: Ambulatory Orders Amlodipine Besylate [Norvasc -] 10 mg PO DAILY 05/27/18 Escitalopram Oxalate [Lexapro -] 20 mg PO DAILY 05/27/18 Latanoprost 0.005% Eye Drops [Xalatan 0.005% Eye Drops -] 1 drop OP HS 05/27/18 Polyethylene Glycol 3350 [Miralax 119 gm Btl -] 17 gm PO DAILY 05/27/18 Ferrous Sulfate [Feosol] 325 mg PO BID ud 06/04/18 Pantoprazole Sodium [Protonix -] 40 mg PO BID tablet.ec 06/04/18 Allopurinol [Zyloprim -] 100 mg PO DAILY #30 tablet 07/29/18 Levothyroxine [Synthroid -] 125 mcg PO DAILY@0700 #30 tablet MDD 1 07/29/18 Tamsulosin HCl [Flomax -] 0.4 mg PO DAILY@0830 #30 cap.er.24h MDD 1 07/29/18 Family Disease History - Family Disease History Family Disease History: Other: Father ( 70's: pancreatic Ca), Mother (: 70's: [place]), Brother (None), Sister (None), Daughter (3 daughters, 2 , ? causes) Review of Systems Unable to obtain ROS, reason: pt demented Physical Exam Vital Sings: Vital Signs Temperature 98.6 F 09/07/18 14:00 Pulse Rate 74 09/07/18 14:00 Respiratory Rate 18 09/07/18 14:00 Blood Pressure 142/67 09/07/18 14:00 O2 Sat by Pulse Oximetry (%) 93 L 09/07/18 12:37 Constitutional: Yes: Calm, Cachectic Eyes: Yes: Conjunctiva Clear, EOM Intact HENT: Yes: Atraumatic, Normocephalic Neck: Yes: Supple, Trachea Midline Cardiovascular: Yes: Regular Rate and Rhythm Respiratory: Yes: Regular, Diminished (decreased breath sounds at the bases) ...Clubbing: No Gastrointestinal: Yes: Normal Bowel Sounds, Soft. No: Tenderness Edema: No Neurological: Yes: Confusion Labs: CBC, BMP 09/07/18 06:30 09/07/18 06:30 Imaging - Results Chest X-ray: Report Reviewed, Image Reviewed (mild pulmonary vascular congestion ) Problem List - Problems (1) Anemia Code(s): D64.9 - ANEMIA, UNSPECIFIED (2) COPD (chronic obstructive pulmonary disease) Code(s): J44.9 - CHRONIC OBSTRUCTIVE PULMONARY DISEASE, UNSPECIFIED (3) Chronic renal failure Code(s): N18.9 - CHRONIC KIDNEY DISEASE, UNSPECIFIED Qualifiers: Chronic kidney disease stage: unspecified stage Qualified Code(s): N18.9 - Chronic kidney disease, unspecified (4) GI bleed Code(s): K92.2 - GASTROINTESTINAL HEMORRHAGE, UNSPECIFIED Qualifiers: GI bleed type/associated pathology: unspecified gastrointestinal hemorrhage type Qualified Code(s): K92.2 - Gastrointestinal hemorrhage, unspecified (5) Hypothyroid Code(s): E03.9 - HYPOTHYROIDISM, UNSPECIFIED Assessment/Plan Recurrent GI Bleed Severe Anemia s/p PRBC transfusion UTI COPD LV Diastolic Dysfunction Pulmonary HTN HTN Hyperlipidemia CKD Hypothyroidism Parkinsons Dementia - monitor H/H - transfuse as needed - protonix - GI eval - antibiotics for UTI - f/u cultures - inhaled bronchodilators as needed - O2 to keep SpO2 >90% - DVT prophylaxis Thank you for this consult Jose Olvera MD
--- NOTE | 2018-09-07 18:45 | CON.GI ---
Consult - History of Present Illness History of Present Illness: Raphael is a 77 year old woman with past medical history of Parkinson's disease, dementia, HTN, HLD, CKD , GI bleed, COPD, depression, hypothyroidism, GERD, gout transferred from [place] after being found to have H/H 5.4/17.6. Patient is a poor historian - there is no report of abdominal pain , nausea, vomiting, melena, brbr , weight loss. As per the record she has refused endoscopic evaluation in the past. 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: Dementia, Parkinson's Cardio/Vascular: Yes: HTN, Hyperlipdemia Pulmonary: Yes: COPD Gastrointestinal: Yes: GERD, GI Bleed Renal/: Yes: Renal Inusuff Psych: Yes: Depression Musculoskeletal: Yes: Osteoarthritis Rheumatology: Yes: Other (arthritis) Endocrine: Yes: Hypothyroidism - Past Surgical History Past Surgical History: Yes: Appendectomy, Tonsillectomy - Alcohol/Substance Use Hx Alcohol Use: No History of Substance Use: reports: None - Smoking History Smoking history: Never smoked Have you smoked in the past 12 months: No Aproximately how many cigarettes per day: 5 If you are a former smoker, when did you quit?: 5 years ago - Social History Usual Living Arrangement: Alone ADL: Support Services Occupation: retired History of Recent Travel: No Home Medications - Allergies Allergies/Adverse Reactions: Allergies Allergy/AdvReac Type Severity Reaction Status Date / Time No Known Allergies Allergy Verified 09/06/18 15:15 - Home Medications Home Medications: Ambulatory Orders Amlodipine Besylate [Norvasc -] 10 mg PO DAILY 05/27/18 Escitalopram Oxalate [Lexapro -] 20 mg PO DAILY 05/27/18 Latanoprost 0.005% Eye Drops [Xalatan 0.005% Eye Drops -] 1 drop OP HS 05/27/18 Polyethylene Glycol 3350 [Miralax 119 gm Btl -] 17 gm PO DAILY 05/27/18 Ferrous Sulfate [Feosol] 325 mg PO BID ud 06/04/18 Pantoprazole Sodium [Protonix -] 40 mg PO BID tablet.ec 06/04/18 Allopurinol [Zyloprim -] 100 mg PO DAILY #30 tablet 07/29/18 Levothyroxine [Synthroid -] 125 mcg PO DAILY@0700 #30 tablet MDD 1 07/29/18 Tamsulosin HCl [Flomax -] 0.4 mg PO DAILY@0830 #30 cap.er.24h MDD 1 07/29/18 Family Disease History - Family Disease History Family History: Unable to Obtain Family Disease History: Other: Father ( 70's: pancreatic Ca), Mother (: 70's: [place]), Brother (None), Sister (None), Daughter (3 daughters, 2 , ? causes) Review of Systems Unable to obtain ROS, reason: dementia Physical Exam-GI Vital Signs: Vital Signs Temperature 98.6 F 09/07/18 14:00 Pulse Rate 74 09/07/18 14:00 Respiratory Rate 18 09/07/18 14:00 Blood Pressure 142/67 09/07/18 14:00 O2 Sat by Pulse Oximetry (%) 93 L 09/07/18 12:37 Constitutional: Yes: Well Nourished, No Distress, Calm Eyes: Yes: WNL HENT: Yes: WNL Neck: Yes: WNL Cardiovascular: Yes: WNL, Regular Rate and Rhythm Respiratory: Yes: WNL, Regular, CTA Bilaterally Gastrointestinal Inspection: Yes: WNL ...Auscultate: Yes: Normoactive Bowel Sounds Extremities: Yes: WNL Edema: No Labs: CBC, BMP 09/07/18 06:30 09/07/18 06:30 INR, PTT INR 0.96 (0.83-1.09) 09/07/18 06:30 Imaging - Results Chest X-ray: Report Reviewed Problem List - Problems (1) Anemia Assessment/Plan: Impression; Anemia / fobt positive REC: npo / ivf's ppi infusion avoid nsaid transfuse to HG of 10 ; serial cbc q8 I attempted to contact the daughter, - [facility] - ([phone] number out of service ) to discuss the risk and benefit of endoscopic procedure - . I also attempted to contact her friend listed in the chart -- no answer. Will f/u in the morning. Code(s): D64.9 - ANEMIA, UNSPECIFIED
[2018-09-08 01:24] LABS: HEMATOCRIT 26.8 % (32.4-45.2); MCH 29.1 pg (25.7-33.7); MCHC 33.6 g/dl (32.0-36.0); MEAN CELL VOLUME 86.4 fl (80-96); MEAN PLT VOLUME 7.2 fl (7.5-11.1); PLATELET COUNT 406 K/MM3 (134-434); RBC 3.11 M/mm3 (3.60-5.2); RDW 16.7 % (11.6-15.6); WHITE BLOOD COUNT 9.5 K/mm3 (4.0-10.0)
[2018-09-08] MEDS: LATANOPROST 0.005% OPHTH SOLN 2.5ML BOTTLE OD SCH (01:26)
[2018-09-08] MEDS: PANTOPRAZOLE SODIUM 80 MG in SODIUM CHLORIDE 100 ML IVPB SCH ×4 (01:52→20:31)
[2018-09-08] MEDS: LEVOTHYROXINE NA 125 MCG TABLET (FP) PO SCH (06:31)
[2018-09-08 08:24] LABS: BASO % 1.3 % (0-2.0); EOS % 3.3 % (0-4.5); HEMATOCRIT 24.1 % (32.4-45.2); HEMOGLOBIN 8.5 GM/dL (10.7-15.3); LYMPH % 8.7 % (8-40); MCH 30.1 pg (25.7-33.7); MCHC 35.2 g/dl (32.0-36.0); MEAN CELL VOLUME 85.6 fl (80-96); MEAN PLT VOLUME 7.5 fl (7.5-11.1); MONO % 6.7 % (3.8-10.2); RBC 2.82 M/mm3 (3.60-5.2); RDW 16.8 % (11.6-15.6); WHITE BLOOD COUNT 9.9 K/mm3 (4.0-10.0)
[2018-09-08 08:29] LABS: BILIRUBIN,TOTAL 0.9 mg/dL (0.2-1); BLOOD UREA NITROGEN 71.2 mg/dL (7-18); CALCIUM 8.9 mg/dL (8.5-10.1); CREATININE 2.1 mg/dL (0.55-1.3); POTASSIUM 3.9 mmol/L (3.5-5.1); TOT PROT 6.3 g/dl (6.4-8.2)
[2018-09-08] MEDS: TAMSULOSIN HCL 0.4 MG CAP PO SCH (08:45)
[2018-09-08 09:08] LABS: PLATELET COUNT 413 K/MM3 (134-434)
--- NOTE | 2018-09-08 09:40 | PN ---
Progress Note (short form) - Note Progress Note: PULMONARY APPEARS STABLE FROM PULMONARY VSS/AFEBRILE PALE/CHRONICALLY ILL BIBASILAR CRACKLES S1S2 WITH ECTOPICS BS+ SOFT NO EDEMA LABS/MEDS/NOTES/IMAGES REVIEWED Recurrent GI Bleed Severe Anemia s/p PRBC transfusion UTI COPD LV Diastolic Dysfunction Pulmonary HTN HTN Hyperlipidemia CKD Hypothyroidism Parkinsons Dementia - monitor H/H - transfuse as needed - protonix - GI eval - antibiotics for UTI - f/u cultures - inhaled bronchodilators as needed - O2 to keep SpO2 >90% - DVT prophylaxis - gi eval continues Jack SCOTT MD
[2018-09-08] MEDS: FERROUS SO4 325 MG TABLET (FP) PO SCH (10:06)
[2018-09-08] MEDS: ESCITALOPRAM OXALATE 20 MG TABLET (FP) PO SCH (10:06)
[2018-09-08] MEDS: amLODIPine BESYLATE 10 MG TABLET (FP) PO SCH (10:06)
--- NOTE | 2018-09-08 10:50 | PN ---
Progress Note, Physician Chief Complaint: Anemia GI Bleed CKD UTI History of Present Illness: Previous notes and events reviewed awake and alert NAD Hg 8.5 NPO status denies chest pain or SOB UC prelim positive - Current Medication List Current Medications: Active Medications Acetaminophen (Tylenol -) 650 mg PO Q6H PRN PRN Reason: PAIN LEVEL 4 - 6 Amlodipine Besylate (Norvasc -) 10 mg PO DAILY [facility] Last Admin: 09/08/18 10:06 Dose: Not Given Escitalopram Oxalate (Lexapro -) 20 mg PO DAILY [facility] Last Admin: 09/08/18 10:06 Dose: Not Given Ferrous Sulfate (Feosol -) 325 mg PO BID [facility] Last Admin: 09/08/18 10:06 Dose: Not Given Pantoprazole Sodium 80 mg/ (Sodium Chloride) 100 mls @ 10 mls/hr IVPB Q10H [facility] Last Admin: 09/08/18 04:09 Dose: 10 mls/hr Lactated Ringer's (Lactated Ringers Solution) 1,000 mls @ 42 mls/hr IV ASDIR [facility] Last Admin: 09/07/18 19:00 Dose: Not Given Latanoprost (Xalatan 0.005% Eye Drops -) 1 drop OD HS [facility] Last Admin: 09/08/18 01:26 Dose: Not Given Levothyroxine Sodium (Synthroid -) 125 mcg PO DAILY@0700 [facility] Last Admin: 09/08/18 06:31 Dose: Not Given Tamsulosin HCl (Flomax -) 0.4 mg PO DAILY@0830 [facility] Last Admin: 09/08/18 08:45 Dose: Not Given - Objective Vital Signs: Vital Signs Temperature 97.9 F 09/08/18 10:07 Pulse Rate 112 H 09/08/18 10:07 Respiratory Rate 18 09/08/18 10:07 Blood Pressure 146/56 L 09/08/18 10:07 O2 Sat by Pulse Oximetry (%) 95 09/07/18 21:00 Constitutional: Yes: No Distress, Calm, Cachectic Eyes: Yes: Conjunctiva Clear HENT: Yes: Atraumatic Cardiovascular: Yes: Tachycardia Respiratory: Yes: Regular, Diminished, On Nasal O2 Gastrointestinal: Yes: Normal Bowel Sounds, Soft, Tenderness, Epigastrium Genitourinary: Yes: Incontinence Musculoskeletal: Yes: Muscle Weakness Extremities: Yes: WNL Edema: No Neurological: Yes: Alert, Pre-Existing Deficit Psychiatric: Yes: Alert Labs: CBC, BMP 09/08/18 07:10 09/08/18 07:10 INR, PTT INR 0.96 (0.83-1.09) 09/07/18 06:30 Microbiology 09/06/18 16:30 Urine - Urine Clean Catch Urine Culture - Preliminary Non Lactose Fermenting Gnb Group D Strep Or Entero Coccus Problem List - Problems (1) Anemia Assessment/Plan: -GI on board -NPO -IV hydration -serial CBC q8h -Hg 8.5 -Stool OB positive -Protonix drip Code(s): D64.9 - ANEMIA, UNSPECIFIED (2) Asymptomatic bacteriuria Assessment/Plan: -UA shows 3+ leuks, 2+ blood -UC prelim positive -no leukocytosis -afebrile -ID consult Code(s): R82.71 - BACTERIURIA (3) CHF (congestive heart failure) Assessment/Plan: -1L fluid restriction -daily weights Code(s): I50.9 - HEART FAILURE, UNSPECIFIED (4) CKD (chronic kidney disease) Assessment/Plan: -renal on board -BUN/Cr 71.2/2.1 -monitor renal function daily Code(s): N18.9 - CHRONIC KIDNEY DISEASE, UNSPECIFIED Qualifiers: Chronic kidney disease stage: unspecified stage Qualified Code(s): N18.9 - Chronic kidney disease, unspecified (5) COPD (chronic obstructive pulmonary disease) Assessment/Plan: -O2 via NC -keep SpO2 >90% -Pulm on board Code(s): J44.9 - CHRONIC OBSTRUCTIVE PULMONARY DISEASE, UNSPECIFIED (6) HTN (hypertension) Assessment/Plan: -Norvasc Code(s): I10 - ESSENTIAL (PRIMARY) HYPERTENSION Qualifiers: Hypertension type: unspecified Qualified Code(s): I10 - Essential (primary ) hypertension (7) Hypothyroid Assessment/Plan: -Levothyroxine Code(s): E03.9 - HYPOTHYROIDISM, UNSPECIFIED Qualifiers: Hypothyroidism type: unspecified Qualified Code(s): E03.9 - Hypothyroidism , unspecified (8) Severe protein-calorie malnutrition Code(s): E43 - UNSPECIFIED SEVERE PROTEIN-CALORIE MALNUTRITION Assessment/Plan see problem list
--- NOTE | 2018-09-08 11:41 | PN ---
Progress Note (short form) - Note Progress Note: ID CONSULT DICTATED + URINE C/S PROBABLE CONTAMINANT/ COLONIZER OBSERVE OFF ANTIBIOTICS
[2018-09-08] MEDS: LACTATED RINGERS SOLUTION 1,000 ML IV SCH ×2 (12:33→19:00)
[2018-09-08 14:41] VITALS: BMI 19.3
[2018-09-08] MEDS ORDERED: METOPROLOL TARTRATE 5 MG/5 ML VIAL IVPUSH PRN (14:48)
--- NOTE | 2018-09-08 14:52 | PN.GI ---
GI Progress Note Subjective: No acute events No overt bleeding Denies abdominal pain - Objective Vital Signs: Vital Signs Temperature 97.9 F 09/08/18 10:07 Pulse Rate 112 H 09/08/18 10:07 Respiratory Rate 18 09/08/18 10:07 Blood Pressure 146/56 L 09/08/18 10:07 O2 Sat by Pulse Oximetry (%) 97 09/08/18 09:00 Constitutional: Calm Eyes: No: Sclera Icterus Cardiovascular: Yes: Regular Rate and Rhythm Gastrointestinal Inspection: No: Distention ...Auscultate: Yes: Normoactive Bowel Sounds ...Palpate: No: Tenderness Edema: No (No LE edema) Neurological: Yes: Alert Labs: CBC, BMP 09/08/18 07:10 09/08/18 07:10 INR, PTT INR 0.96 (0.83-1.09) 09/07/18 06:30 Problem List - Problems (1) Melena Assessment/Plan: Again refusing EGD for further evaluation of the episodic GI bleeding. Explained that upper endoscopy would be performed to evaluate for source of her recurrent bleeding and that cancer would need to be considered in the differential as well. She stated that she does not want anything done and she is tired of being brought here. She explains that she just wants to go home. Unclear what the goals are at this time. A clear, definitive plan will need to be made regarding the future of her care. ? hospice. consider ethics evaluation. Clear liquids Monitor H/H and for overt bleeding PPI drip for total of 72 hours if she remains here Recall if patient amenable to endoscopic evaluation and patient competency / consent has been clarified Code(s): K92.1 - MELENA
[2018-09-08 15:14] LABS: HEMATOCRIT 25.2 % (32.4-45.2); HEMOGLOBIN 8.7 GM/dL (10.7-15.3); MCH 29.5 pg (25.7-33.7); MCHC 34.4 g/dl (32.0-36.0); MEAN CELL VOLUME 85.8 fl (80-96); MEAN PLT VOLUME 7.2 fl (7.5-11.1); RBC 2.94 M/mm3 (3.60-5.2); RDW 16.4 % (11.6-15.6); WHITE BLOOD COUNT 9.3 K/mm3 (4.0-10.0)
[2018-09-08 15:26] LABS: PLATELET COUNT 446 K/MM3 (134-434)
--- NOTE | 2018-09-08 18:40 | PN ---
Progress Note (short form) - Note Progress Note: Patient seen and examined , CONSULT DICTATED Multiple admissions for GI bleeding . Significant fall in HB/Hct over past one month. Hematest positive stool, but declines GI assessment . Lab data reveal low Fe++, low tibc, normal ferritin . This is compatible with blood loss anemia and chronic disease. Has Tophaceous gout, CKD, severe arthritis, dementia, Parkinson's. Previous B-12, folate, TSH - all normal. Can consider IV Venofer if patient is to stay. Has declined on multiple occasions -GI assessment and just wants to go back home.
--- NOTE | 2018-09-08 19:49 | CONS ---
DATE OF CONSULTATION: 09/08/2018 HISTORY OF PRESENT ILLNESS: This 77-year-old female enters for profound anemia with Hematest positive stools. She has had multiple admissions for anemia, and Hematest positive stools, and has declined endoscopy in the past. PAST MEDICAL HISTORY: Includes Parkinson's, dementia, hypertension, hyperlipidemia, chronic kidney disease, hypothyroidism, as well as tophaceous gout. PAST SURGICAL HISTORY: Includes appendectomy and tonsillectomy. There is no history of alcohol abuse. Patient was a former smoker. Patient was in a fpc. ALLERGIES: No known allergies. FAMILY HISTORY: Father of pancreatic cancer. Mother with an HI. REVIEW OF SYSTEMS: Poor historian. Patient just wants to go back to the fpc. Denies chest pain, palpitation, nausea, vomiting, diarrhea. Denies shortness of breath, cough, phlegm. MEDICINE: Include Flomax, Tylenol, Lexapro, Lopressor, Norvasc, Feosol, lactate, eyedrops, Protonix, and Synthroid. CURRENT PHYSICAL EXAMINATION: VITAL SIGNS: Blood pressure 159/62, pulse 72, respiratory rate 20, temperature 98.1. HEENT: VIKI. EOM intact. Oropharynx unremarkable. LUNGS: Diminished breath sounds. CARDIAC: RSR. BREAST: No breast masses. ABDOMEN: Soft. EXTREMITIES: SCDs. There is arthritic change in the hands and feet. LABORATORY: On admission, hemoglobin 5.7 and 6.7 hemoglobin 10.6. Patient has been transfused hemoglobin 8.7, WBC 9.3, platelets 446,000. She has 80 polycytes, 9 lymphocytes. INR 0.96. Chemistries: 141 sodium, potassium 3.9, chloride 110, CO2 of 22, BUN 71, creatinine 2.1, AST 18, ALT 14, alkaline phosphatase 81, B12 of 1300 TSH 3.63. Hematest positive stool. IMPRESSION: Likely multifactorial anemia, combination of chronic kidney disease, chronic infectious, tophaceous gout. Iron studies reveal serum iron of 17, a transferrin of 168, and a ferritin of 164. Picture compatible with component of blood loss anemia as well as chronic disease. Symptomatic treatment as is necessary. Can consider IV iron therapy if the patient remains in hospital. ERROL SANTANA M.D. [id number]
[2018-09-09] MEDS: LATANOPROST 0.005% OPHTH SOLN 2.5ML BOTTLE OD SCH ×2 (00:10→21:06)
[2018-09-09] MEDS: FERROUS SO4 325 MG TABLET (FP) PO SCH ×3 (01:10→21:06)
[2018-09-09] MEDS: PANTOPRAZOLE SODIUM 80 MG in SODIUM CHLORIDE 100 ML IVPB SCH ×4 (01:10→22:30)
[2018-09-09] MEDS: TAMSULOSIN HCL 0.4 MG CAP PO SCH (10:22)
[2018-09-09] MEDS: ESCITALOPRAM OXALATE 20 MG TABLET (FP) PO SCH (10:22)
[2018-09-09] MEDS: LEVOTHYROXINE NA 125 MCG TABLET (FP) PO SCH (10:23)
[2018-09-09] MEDS: amLODIPine BESYLATE 10 MG TABLET (FP) PO SCH (10:23)
--- NOTE | 2018-09-09 10:50 | CONS ---
INFECTIOUS DISEASE CONSULTATION DATE OF CONSULTATION: DATE OF DICTATION: 09/09/2018 HISTORY: The patient is a 77-year-old female with a history of parkinsonism, dementia, gastrointestinal bleeding now evaluated for positive urine culture. She was admitted from the skilled nursing after complaining of generalized weakness. She was found to have a hemoglobin of 5.6. The patient was admitted to the hospital on September 06, 2018. She was seen in consultation by GI. Her hospital course has been significant for polyuria and positive urine culture. The patient is awake and alert. She denies any dysuria or hematuria. No complaints of suprapubic or flank pain. She has had a history of asymptomatic bacteriuria in the past. No reported fever or chills. No elevated white blood cell count. PAST MEDICAL HISTORY: Positive for parkinsonism, dementia, chronic kidney disease, COPD, gastrointestinal bleeding, hypothyroidism, gouty arthritis, gastroesophageal reflux disease. ALLERGIES: No known allergies. MEDICATIONS: Include Tylenol, amlodipine, Lexapro, Feosol, Synthroid, metoprolol, Protonix, Flomax. SOCIAL HISTORY: Lives in a care home facility. Nonsmoker. SYSTEMS REVIEW: Neurologic: Positive for parkinsonism and dementia. Cardiac: Negative chest pain or palpitations. Respiratory: Negative cough or sputum production. Gastrointestinal: As per HPI. Genitourinary: As per HPI. LABORATORY DATA: White count 9.3, hematocrit 25.2, platelets 446, BUN 71, creatinine 2.1. Urinalysis: White cells 2854. Urine culture: Nonlactose roof tiler 80,000-90,000, less than 10,000 streptococcus species. PHYSICAL EXAMINATION: General: She is awake and alert. She is chronically ill-appearing, pale. Vital Signs: Temperature 97.7, blood pressure 150/65, pulse 70 regular, respirations 18 per minute. HEENT: Sclerae anicteric. Heart: Sounds S1, S2. Lungs: Grossly clear. Abdomen: Soft. No suprapubic tenderness. Extremities: Have 1+ edema. IMPRESSION: 1. Positive urine culture, likely contaminant/colonizer. 2. Severe anemia, history of gastrointestinal bleeding. 3. Parkinsonism/dementia. PLAN: Suspect positive urine culture represents contamination versus colonization. Patient has had a history of asymptomatic bacteriuria. Would observe off antibiotic therapy. GI followup. Thank you for the kind referral. YAMILE BARGER M.D. LUIS MANUEL/[id number]
[2018-09-09] MEDS: LACTATED RINGERS SOLUTION 1,000 ML IV SCH ×2 (11:14→20:49)
--- NOTE | 2018-09-09 11:58 | PN ---
Progress Note, Physician Chief Complaint: Anemia GI Bleed CKD UTI History of Present Illness: Previous notes and events reviewed awake and alert NAD Hg 8.3 denies chest pain or SOB patient is refusing GI diagnostic testing patient states she wants to return to SNF UC prelim positive - Current Medication List Current Medications: Active Medications Acetaminophen (Tylenol -) 650 mg PO Q6H PRN PRN Reason: PAIN LEVEL 4 - 6 Amlodipine Besylate (Norvasc -) 10 mg PO DAILY [facility] Last Admin: 09/09/18 10:23 Dose: 10 mg Escitalopram Oxalate (Lexapro -) 20 mg PO DAILY [facility] Last Admin: 09/09/18 10:22 Dose: 20 mg Ferrous Sulfate (Feosol -) 325 mg PO BID [facility] Last Admin: 09/09/18 10:22 Dose: 325 mg Pantoprazole Sodium 80 mg/ (Sodium Chloride) 100 mls @ 10 mls/hr IVPB Q10H [facility] Last Admin: 09/09/18 01:10 Dose: 10 mls/hr Lactated Ringer's (Lactated Ringers Solution) 1,000 mls @ 42 mls/hr IV ASDIR [facility] Last Admin: 09/09/18 11:14 Dose: 42 mls/hr Latanoprost (Xalatan 0.005% Eye Drops -) 1 drop OD HS [facility] Last Admin: 09/09/18 00:10 Dose: 1 drop Levothyroxine Sodium (Synthroid -) 125 mcg PO DAILY@0700 [facility] Last Admin: 09/09/18 10:23 Dose: 125 mcg Metoprolol Tartrate (Lopressor Injection -) 5 mg IVPUSH Q4H PRN PRN Reason: TACHYCARDIA Tamsulosin HCl (Flomax -) 0.4 mg PO DAILY@0830 [facility] Last Admin: 09/09/18 10:22 Dose: 0.4 mg - Objective Vital Signs: Vital Signs Temperature 98.2 F 09/09/18 09:00 Pulse Rate 79 09/09/18 09:00 Respiratory Rate 18 09/09/18 09:00 Blood Pressure 180/70 H 09/09/18 09:00 O2 Sat by Pulse Oximetry (%) 97 09/08/18 21:00 Constitutional: Yes: No Distress, Calm Eyes: Yes: Conjunctiva Clear HENT: Yes: Atraumatic Cardiovascular: Yes: Regular Rate and Rhythm Respiratory: Yes: Regular, CTA Bilaterally, On Nasal O2 Gastrointestinal: Yes: Normal Bowel Sounds, Soft Genitourinary: Yes: Incontinence Musculoskeletal: Yes: Muscle Weakness Extremities: Yes: Deformity (b/l hands) Edema: No Neurological: Yes: Alert Psychiatric: Yes: Alert Labs: CBC, BMP 09/08/18 14:35 09/08/18 07:10 INR, PTT INR 0.96 (0.83-1.09) 09/07/18 06:30 Microbiology 09/06/18 16:30 Urine - Urine Clean Catch Urine Culture - Preliminary Providencia Stuartii Group D Strep Or Entero Coccus Problem List - Problems (1) Anemia Assessment/Plan: -GI on board -clear liquids -IV hydration -Hg 8.3 -Stool OB positive -Protonix drip -patient is refusing EGD and further GI workup Code(s): D64.9 - ANEMIA, UNSPECIFIED (2) Asymptomatic bacteriuria Assessment/Plan: -UA shows 3+ leuks, 2+ blood -UC prelim positive -no leukocytosis -afebrile -ID consult Code(s): R82.71 - BACTERIURIA (3) CHF (congestive heart failure) Assessment/Plan: -1L fluid restriction -daily weights Code(s): I50.9 - HEART FAILURE, UNSPECIFIED (4) CKD (chronic kidney disease) Assessment/Plan: -renal on board -BUN/Cr 71.2/2.1 -monitor renal function daily Code(s): N18.9 - CHRONIC KIDNEY DISEASE, UNSPECIFIED Qualifiers: Chronic kidney disease stage: unspecified stage Qualified Code(s): N18.9 - Chronic kidney disease, unspecified (5) COPD (chronic obstructive pulmonary disease) Assessment/Plan: -O2 via NC -keep SpO2 >90% -Pulm on board Code(s): J44.9 - CHRONIC OBSTRUCTIVE PULMONARY DISEASE, UNSPECIFIED (6) HTN (hypertension) Assessment/Plan: -Norvasc Code(s): I10 - ESSENTIAL (PRIMARY) HYPERTENSION Qualifiers: Hypertension type: unspecified Qualified Code(s): I10 - Essential (primary ) hypertension (7) Hypothyroid Assessment/Plan: -Levothyroxine Code(s): E03.9 - HYPOTHYROIDISM, UNSPECIFIED Qualifiers: Hypothyroidism type: unspecified Qualified Code(s): E03.9 - Hypothyroidism , unspecified (8) Severe protein-calorie malnutrition Code(s): E43 - UNSPECIFIED SEVERE PROTEIN-CALORIE MALNUTRITION Assessment/Plan see problem list psych consult for [facility] palliative consult
[2018-09-09 12:01] LABS: HEMATOCRIT 26.2 % (32.4-45.2); HEMOGLOBIN 8.7 GM/dL (10.7-15.3); MCH 29.1 pg (25.7-33.7); MCHC 33.1 g/dl (32.0-36.0); MEAN CELL VOLUME 87.8 fl (80-96); MEAN PLT VOLUME 6.9 fl (7.5-11.1); PLATELET COUNT 491 K/MM3 (134-434); RBC 2.98 M/mm3 (3.60-5.2); RDW 17.1 % (11.6-15.6)
[2018-09-09 12:33] LABS: BILIRUBIN,TOTAL 0.7 mg/dL (0.2-1); BLOOD UREA NITROGEN 59.5 mg/dL (7-18); CALCIUM 9.1 mg/dL (8.5-10.1); TOT PROT 6.3 g/dl (6.4-8.2)
--- NOTE | 2018-09-09 13:59 | DS ---
Physical Examination Vital Signs: Vital Signs Temperature 98.2 F 09/09/18 09:00 Pulse Rate 79 09/09/18 09:00 Respiratory Rate 18 09/09/18 09:00 Blood Pressure 180/70 H 09/09/18 09:00 O2 Sat by Pulse Oximetry (%) 97 09/08/18 21:00 Findings/Remarks: Patient is a 77 y/o female with past medical history of Parkinson's disease, dementia, HLD, gout, CKD stage 5, GI bleed, COPD, depression, hypothyroidism. Patient presented to ER after having HG 5.4 in [place] [facility]. Constitutional: Yes: No Distress, Calm Eyes: Yes: Conjunctiva Clear HENT: Yes: Atraumatic Cardiovascular: Yes: Regular Rate and Rhythm Respiratory: Yes: Regular, CTA Bilaterally Gastrointestinal: Yes: Normal Bowel Sounds, Soft Musculoskeletal: Yes: Muscle Weakness Extremities: Yes: WNL Edema: No Neurological: Yes: Alert, Pre-Existing Deficit Psychiatric: Yes: Alert Labs: CBC, BMP 09/09/18 11:40 09/09/18 11:40 Discharge Summary Reason For Visit: ANEMIA Current Active Problems Anemia (Acute) MDD (major depressive disorder) (Acute) Melena (Acute) Prophylactic measure (Acute) Hospital Course: see progress notes Laboratory Tests 09/06/18 09/06/18 09/06/18 16:30 16:30 16:30 WBC 9.4 RBC 1.95 L Hgb 5.7 L* Hct 17.0 L D MCV 87.1 MCH 29.3 MCHC 33.6 RDW 18.2 H Plt Count 424 MPV 7.6 Absolute Neuts (auto) 7.6 Neutrophils % 81.1 Lymphocytes % 12.8 D Monocytes % 5.2 Eosinophils % 0.1 Basophils % 0.8 Nucleated RBC % 0 PT with INR INR PTT (Actin FS) 32.8 Sodium Potassium Chloride Carbon Dioxide Anion Gap BUN Creatinine Est GFR (CKD-EPI)AfAm Est GFR (CKD-EPI)NonAf Random Glucose Calcium Phosphorus Magnesium Total Bilirubin AST ALT Alkaline Phosphatase Creatine Kinase Troponin I B-Natriuretic Peptide Total Protein Albumin TSH Urine Color Urine Appearance Urine pH Ur Specific [place] Urine Protein Urine Glucose (UA) Urine Ketones Urine Blood Urine Nitrite Urine Bilirubin Urine Urobilinogen Ur Leukocyte Esterase Urine WBC (Auto) Urine RBC (Auto) Urine Casts (Auto) U Pathogenic Cast Auto U Epithel Cells (Auto) Urine Bacteria (Auto) Urine Yeast (Auto) Stool Occult Blood Blood Type O NEGATIVE Antibody Screen Negative Crossmatch See Detail 09/06/18 09/06/18 09/06/18 16:30 16:30 16:30 WBC RBC Hgb Hct MCV MCH MCHC RDW Plt Count MPV Absolute Neuts (auto) Neutrophils % Lymphocytes % Monocytes % Eosinophils % Basophils % Nucleated RBC % PT with INR 12.20 INR 1.03 PTT (Actin FS) Sodium 137 Potassium 4.4 Chloride 104 Carbon Dioxide 23 Anion Gap 10 BUN 91.5 H Creatinine 2.1 H Est GFR (CKD-EPI)AfAm 26.03 Est GFR (CKD-EPI)NonAf 22.46 Random Glucose 108 H Calcium 8.9 Phosphorus Magnesium Total Bilirubin 0.3 AST 18 ALT 13 Alkaline Phosphatase 88 Creatine Kinase 143 Troponin I 0.06 H B-Natriuretic Peptide Total Protein 6.7 Albumin 3.2 L TSH Urine Color Yellow Urine Appearance Turbid Urine pH 6.5 Ur Specific [place] 1.014 Urine Protein 2+ H Urine Glucose (UA) Negative Urine Ketones Negative Urine Blood 2+ H Urine Nitrite Negative Urine Bilirubin Negative Urine Urobilinogen 0.2 Ur Leukocyte Esterase 3+ H Urine WBC (Auto) 2854.5 Urine RBC (Auto) 45 Urine Casts (Auto) 395.07 U Pathogenic Cast Auto None U Epithel Cells (Auto) 17.2 Urine Bacteria (Auto) 528.9 Urine Yeast (Auto) None Stool Occult Blood Blood Type Antibody Screen Crossmatch 09/06/18 09/07/18 09/07/18 16:50 06:30 06:30 WBC 12.1 H RBC 2.89 L Hgb 8.6 L Hct 24.5 L D MCV 85.0 MCH 29.8 MCHC 35.0 RDW 15.9 H D Plt Count 407 MPV 7.5 Absolute Neuts (auto) Neutrophils % Lymphocytes % Monocytes % Eosinophils % Basophils % Nucleated RBC % PT with INR 11.30 INR 0.96 PTT (Actin FS) 31.7 Sodium Potassium Chloride Carbon Dioxide Anion Gap BUN Creatinine Est GFR (CKD-EPI)AfAm Est GFR (CKD-EPI)NonAf Random Glucose Calcium Phosphorus Magnesium Total Bilirubin AST ALT Alkaline Phosphatase Creatine Kinase Troponin I B-Natriuretic Peptide Total Protein Albumin TSH Urine Color Urine Appearance Urine pH Ur Specific [place] Urine Protein Urine Glucose (UA) Urine Ketones Urine Blood Urine Nitrite Urine Bilirubin Urine Urobilinogen Ur Leukocyte Esterase Urine WBC (Auto) Urine RBC (Auto) Urine Casts (Auto) U Pathogenic Cast Auto U Epithel Cells (Auto) Urine Bacteria (Auto) Urine Yeast (Auto) Stool Occult Blood Positive Blood Type Antibody Screen Crossmatch 09/07/18 09/08/18 09/08/18 06:30 01:10 07:10 WBC 9.5 9.9 RBC 3.11 L 2.82 L Hgb 9.0 L 8.5 L Hct 26.8 L 24.1 L MCV 86.4 85.6 MCH 29.1 30.1 MCHC 33.6 35.2 RDW 16.7 H 16.8 H Plt Count 406 413 MPV 7.2 L 7.5 Absolute Neuts (auto) 8.0 Neutrophils % 80.0 Lymphocytes % 8.7 D Monocytes % 6.7 Eosinophils % 3.3 D Basophils % 1.3 Nucleated RBC % 0 PT with INR INR PTT (Actin FS) Sodium 138 Potassium 4.0 Chloride 106 Carbon Dioxide 22 Anion Gap 10 BUN 82.3 H Creatinine 2.1 H Est GFR (CKD-EPI)AfAm 26.03 Est GFR (CKD-EPI)NonAf 22.46 Random Glucose 82 Calcium 9.0 Phosphorus 3.8 Magnesium 2.5 H Total Bilirubin 1.4 H AST 15 ALT 11 L Alkaline Phosphatase 80 Creatine Kinase Troponin I B-Natriuretic Peptide 16918.7 H Total Protein 6.3 L Albumin 3.2 L TSH 3.63 Urine Color Urine Appearance Urine pH Ur Specific [place] Urine Protein Urine Glucose (UA) Urine Ketones Urine Blood Urine Nitrite Urine Bilirubin Urine Urobilinogen Ur Leukocyte Esterase Urine WBC (Auto) Urine RBC (Auto) Urine Casts (Auto) U Pathogenic Cast Auto U Epithel Cells (Auto) Urine Bacteria (Auto) Urine Yeast (Auto) Stool Occult Blood Blood Type Antibody Screen Crossmatch 09/08/18 09/08/18 09/09/18 07:10 14:35 11:40 WBC 9.3 11.0 H RBC 2.94 L 2.98 L Hgb 8.7 L 8.7 L Hct 25.2 L 26.2 L MCV 85.8 87.8 MCH 29.5 29.1 MCHC 34.4 33.1 RDW 16.4 H 17.1 H Plt Count 446 H 491 H MPV 7.2 L 6.9 L Absolute Neuts (auto) Neutrophils % Lymphocytes % Monocytes % Eosinophils % Basophils % Nucleated RBC % PT with INR INR PTT (Actin FS) Sodium 141 Potassium 3.9 Chloride 110 H Carbon Dioxide 22 Anion Gap 10 BUN 71.2 H Creatinine 2.1 H Est GFR (CKD-EPI)AfAm 26.03 Est GFR (CKD-EPI)NonAf 22.46 Random Glucose 67 L Calcium 8.9 Phosphorus Magnesium Total Bilirubin 0.9 AST 18 ALT 14 Alkaline Phosphatase 81 Creatine Kinase Troponin I B-Natriuretic Peptide Total Protein 6.3 L Albumin 3.0 L TSH Urine Color Urine Appearance Urine pH Ur Specific [place] Urine Protein Urine Glucose (UA) Urine Ketones Urine Blood Urine Nitrite Urine Bilirubin Urine Urobilinogen Ur Leukocyte Esterase Urine WBC (Auto) Urine RBC (Auto) Urine Casts (Auto) U Pathogenic Cast Auto U Epithel Cells (Auto) Urine Bacteria (Auto) Urine Yeast (Auto) Stool Occult Blood Blood Type Antibody Screen Crossmatch 09/09/18 11:40 WBC RBC Hgb Hct MCV MCH MCHC RDW Plt Count MPV Absolute Neuts (auto) Neutrophils % Lymphocytes % Monocytes % Eosinophils % Basophils % Nucleated RBC % PT with INR INR PTT (Actin FS) Sodium 142 Potassium 4.0 Chloride 110 H Carbon Dioxide 20 L Anion Gap 13 BUN 59.5 H Creatinine 2.0 H Est GFR (CKD-EPI)AfAm 27.61 Est GFR (CKD-EPI)NonAf 23.82 Random Glucose 53 L Calcium 9.1 Phosphorus Magnesium Total Bilirubin 0.7 AST 14 L ALT 11 L Alkaline Phosphatase 82 Creatine Kinase Troponin I B-Natriuretic Peptide Total Protein 6.3 L Albumin 3.0 L TSH Urine Color Urine Appearance Urine pH Ur Specific [place] Urine Protein Urine Glucose (UA) Urine Ketones Urine Blood Urine Nitrite Urine Bilirubin Urine Urobilinogen Ur Leukocyte Esterase Urine WBC (Auto) Urine RBC (Auto) Urine Casts (Auto) U Pathogenic Cast Auto U Epithel Cells (Auto) Urine Bacteria (Auto) Urine Yeast (Auto) Stool Occult Blood Blood Type Antibody Screen Crossmatch Active Medications Generic Name Dose Route Start Last Admin Trade Name Freq PRN Reason Stop Dose Admin Acetaminophen 650 mg 09/06/18 18:19 Tylenol - PO Q6H PRN PAIN LEVEL 4 - 6 Amlodipine Besylate 10 mg 09/07/18 10:00 09/09/18 10:23 Norvasc - PO 10 mg DAILY [facility] Administration Escitalopram Oxalate 20 mg 09/07/18 10:00 09/09/18 10:22 Lexapro - PO 20 mg DAILY [facility] Administration Ferrous Sulfate 325 mg 09/06/18 22:00 09/09/18 10:22 Feosol - PO 325 mg BID [facility]NE[facility] Administration Pantoprazole Sodium 80 mg/ 100 mls @ 10 mls/hr 09/06/18 17:45 09/09/18 12:06 Sodium Chloride IVPB 10 mls/hr Q10H LINNEA Administration 8 MG/HR Lactated Ringer's 1,000 mls @ 42 mls/hr 09/06/18 18:30 09/09/18 11:14 Lactated Ringers Solution IV 42 mls/hr ASDIR [facility] Administration Latanoprost 1 drop 09/06/18 22:00 09/09/18 00:10 Xalatan 0.005% Eye Drops - OD 1 drop HS [facility] Administration Levothyroxine Sodium 125 mcg 09/07/18 07:00 09/09/18 10:23 Synthroid - PO 125 mcg DAILY@0700 [facility] Administration Metoprolol Tartrate 5 mg 09/08/18 14:48 Lopressor Injection - IVPUSH Q4H PRN TACHYCARDIA Tamsulosin HCl 0.4 mg 09/07/18 08:30 09/09/18 10:22 Flomax - PO 0.4 mg DAILY@0830 [facility] Administration Microbiology 09/06/18 16:30 Urine - Urine Clean Catch Urine Culture - Preliminary Providencia Stuartii Group D Strep Or Entero Coccus Condition: Improved - Instructions Diet, Activity, Other Instructions: follow up with pmd monitor Hg twice a week continue with medication regimen as prescribed Disposition: [facility] - Home Medications Comprehensive Discharge Medication List: Ambulatory Orders Amlodipine Besylate [Norvasc -] 10 mg PO DAILY 05/27/18 Escitalopram Oxalate [Lexapro -] 20 mg PO DAILY 05/27/18 Latanoprost 0.005% Eye Drops [Xalatan 0.005% Eye Drops -] 1 drop OP HS 05/27/18 Polyethylene Glycol 3350 [Miralax 119 gm Btl -] 17 gm PO DAILY 05/27/18 Ferrous Sulfate [Feosol] 325 mg PO BID ud 06/04/18 Pantoprazole Sodium [Protonix -] 40 mg PO BID tablet.ec 04/13/19 Allopurinol [Zyloprim -] 100 mg PO DAILY #30 tablet 07/29/18 Levothyroxine [Synthroid -] 125 mcg PO DAILY@0700 #30 tablet MDD 1 07/29/18 Tamsulosin HCl [Flomax -] 0.4 mg PO DAILY@0830 #30 cap.er.24h MDD 1 07/29/18 Acetaminophen [Tylenol .Regular Strength -] 650 mg PO Q6H PRN tablet 09/09/18
--- NOTE | 2018-09-09 18:28 | CON.PSY ---
Psychiatry Consult Chief Complaint: 77 Janie old female RE[facility]ident of [facility]. p[atient seen for Psych eval for capacity. She apparantly is refusing Dialysis.Case discussed with Rick CERVANTES. Patient has no Psycxh Illness, on Lexapro 20mg for ? psych ILlness. - Previous Psychiatric Treatment Outpatient: None Inpatient: None - Previous Substance Abuse Treatment Outpatient: None Inpatient: None - Current Medications Current Medications: Active Medications Acetaminophen (Tylenol -) 650 mg PO Q6H PRN PRN Reason: PAIN LEVEL 4 - 6 Amlodipine Besylate (Norvasc -) 10 mg PO DAILY [facility] Last Admin: 09/09/18 10:23 Dose: 10 mg Escitalopram Oxalate (Lexapro -) 20 mg PO DAILY [facility] Last Admin: 09/09/18 10:22 Dose: 20 mg Ferrous Sulfate (Feosol -) 325 mg PO BID [facility] Last Admin: 09/09/18 10:22 Dose: 325 mg Pantoprazole Sodium 80 mg/ (Sodium Chloride) 100 mls @ 10 mls/hr IVPB Q10H [facility] Last Admin: 09/09/18 12:06 Dose: 10 mls/hr Lactated Ringer's (Lactated Ringers Solution) 1,000 mls @ 42 mls/hr IV ASDIR [facility] Last Admin: 09/09/18 11:14 Dose: 42 mls/hr Latanoprost (Xalatan 0.005% Eye Drops -) 1 drop OD HS [facility] Last Admin: 09/09/18 00:10 Dose: 1 drop Levothyroxine Sodium (Synthroid -) 125 mcg PO DAILY@0700 [facility] Last Admin: 09/09/18 10:23 Dose: 125 mcg Metoprolol Tartrate (Lopressor Injection -) 5 mg IVPUSH Q4H PRN PRN Reason: TACHYCARDIA Tamsulosin HCl (Flomax -) 0.4 mg PO DAILY@0830 [facility] Last Admin: 09/09/18 10:22 Dose: 0.4 mg - Allergies Allergies: Allergies Allergy/AdvReac Type Severity Reaction Status Date / Time No Known Allergies Allergy Verified 09/06/18 15:15 - Current Living Status Usual Living Arrangement: Residential - Current Mental Status Evaluation Appearance: Well Groomed Attitude: Cooperative - Affect Affect: Full Range Appropriateness: Appropriate to Content - Mood Mood: Euthymic - Speech/Language Expressive: Coherent - Psychomotor Activity Psychomotor Activity: Normal - Thought Process Thought Process: Intact - Thought Content Hallucinations: Absent Delusions: Absent - Self Perception Self Perception: No Impairment - Cognition Attention: Alert Orientation: Time Memory, Immediate Recall: Intact Memory, Short Term: 2/3 Memory, Remote with Promptin/3 - Concentration Serial Sevens Intact: No Simple Calculations Intact: Yes - Abstraction Proverb Interpretation: Intact Judgement: Intact - Insight Insight: Intact - Impulse Control Impulse Control: Good Control - Suicidal Ideation Suicidal Ideation: No - Homicidal Ideation Homicidal Ideation: No Assessment/Plan 1) Patient has the Mental Capacity to make decisions at this time. 2) Can be returned to [facility] Home.
[2018-09-10] MEDS: PANTOPRAZOLE SODIUM 80 MG in SODIUM CHLORIDE 100 ML IVPB SCH ×3 (04:39→11:10)
[2018-09-10] MEDS: LEVOTHYROXINE NA 125 MCG TABLET (FP) PO SCH (06:10)
[2018-09-10] MEDS: ESCITALOPRAM OXALATE 20 MG TABLET (FP) PO SCH (10:28)
[2018-09-10] MEDS: TAMSULOSIN HCL 0.4 MG CAP PO SCH (10:28)
[2018-09-10] MEDS: FERROUS SO4 325 MG TABLET (FP) PO SCH (10:28)
[2018-09-10] MEDS: amLODIPine BESYLATE 10 MG TABLET (FP) PO SCH (10:28)
[2018-09-10] MEDS: LACTATED RINGERS SOLUTION 1,000 ML IV SCH (10:38)
--- NOTE | 2018-09-10 11:07 | PN ---
Progress Note (short form) - Note Progress Note: DEEMED COMPETENT TO MAKE DECISIONS PER PSYCHIATRY THE FOLLOWING NOTE FORWARDED FROM PALLIATIVE CARE NURSE CONSULT Carmina in bed, denies complaints alert to person and place August 2018. Carmina expressing to this agent "I want to return to [facility] I do not know why they keep bringing me back to hospital. I do not want to be poked with needles or have any tests. I just want to live out what time I have left comfortably at [facility]." Discussed with her that she returned because her blood count had dropped dangerously low and she was gravely ill she came to hospital to get blood which helped her feel better. Discussed that MDs feel she has some process in her stomach or colon where she is loosing blood. Explained to Carmina she has the right to refuse to come back to the hospital and they can make her comfortable and do hospice care in residential. Explained hospice care would mean you do not come to hospital for blood and that she most likely would pass away. Discussed CPR and breathing machine and Carmina does not remember being placed on breathing machine this past spring. She stated she does not want such aggressive measures and would not want to be placed on a breathing machine or receive CPR once she . Carmina stating she would sign forms for same. Awaiting capacity determination. PATIENT IS NOW DO NOT HOSPITALIZE WHEN RETURNS TO SNF DNR /DNI DO NOT HOSPITALIZE DC TO SNF
[2018-09-10 15:12] VITALS: BP 158/71; PULSE 72; TEMP 98.5
== END 2018-09-10 14:48 | DRG 377 ==
LOC: JER 14:59 → JERBED 18:01 → J5S 09-07 15:16
PROVIDERS: ADMIT Family Medicine; ATTEND Family Medicine
PROC: 30233N1 Transfusion of Nonautologous Red Blood Cells into Peripheral Vein, Percutaneous Approach (ICD-10-PCS; principal; 2018-09-06)
DX: K92.2 Gastrointestinal hemorrhage, unspecified (principal); E43 Unspecified severe protein-calorie malnutrition; I13.0 Hypertensive heart and chronic kidney disease with heart failure and stage 1 through stage 4 chronic kidney disease, or unspecified chronic kidney disease; N18.5 Chronic kidney disease, stage 5; N39.0 Urinary tract infection, site not specified; R64 Cachexia; Z68.1 Body mass index [BMI] 19.9 or less, adult; I50.9 Heart failure, unspecified; J44.9 Chronic obstructive pulmonary disease, unspecified; E03.9 Hypothyroidism, unspecified; G20 Parkinson's disease; F02.80 Dementia in other diseases classified elsewhere, unspecified severity, without behavioral disturbance, psychotic disturbance, mood disturbance, and anxiety; R62.7 Adult failure to thrive; I10 Essential (primary) hypertension; K21.9 Gastro-esophageal reflux disease without esophagitis; M10.9 Gout, unspecified; R32 Unspecified urinary incontinence; Z87.891 Personal history of nicotine dependence; M19.90 Unspecified osteoarthritis, unspecified site; F32.9 Major depressive disorder, single episode, unspecified; R82.71 Bacteriuria; I27.20 Pulmonary hypertension, unspecified; B95.2 Enterococcus as the cause of diseases classified elsewhere; Z53.20 Procedure and treatment not carried out because of patient's decision for unspecified reasons; Z66 Do not resuscitate
CPT/HCPCS: 36415; 36430; 36511; 71045-TC-FY; 80053; 81003; 82272; 82550; 83735; 83880; 84100; 84443; 84484; 85025; 85027; 85610; 85730; 86850; 86900; 86901; 86922; 87077; 87086; 87186; 93005; 93010; 94010; 99284-25; P9038; P9058

== ENCOUNTER 2018-10-11 01:15 | Inpatient (IN) | payer OTHER ==
--- NOTE | 2018-10-11 02:04 | PDOC ---
History of Present Illness - General Stated Complaint: ABNORMAL LABS Time Seen by Provider: 10/11/18 02:03 History Source: Alf Records Exam Limitations: Dementia - History of Present Illness Initial Comments: Pt is a 77 yo F, with PMH of Parkinson's ds, dementia at baseline, CKD on dialysis, failure to thrive, and COPD, who [facility]/H and refusing her dialysis. Pt had H/H 08/26/19 (/), which dropped to 6.2 yesterday. residential denies any hematemesis or blood in the stool. Pt complains only of being thirsty. Pt has dementia and cannot provide further ROS. Allergies: NKDA PCP: Ayala ([facility]) Social: Pt denies any cigarette, alcohol, or drug use. Pt denies any recent travel or sick contacts. Surgical: no relevant history. Family: no relevant history. 10/11/18 06:22 Past History - Travel Traveled outside of the country in the last 30 days: No Close contact w/someone who was outside of country & ill: No - Past Medical History Allergies/Adverse Reactions: Allergies Allergy/AdvReac Type Severity Reaction Status Date / Time No Known Allergies Allergy Verified 09/06/18 15:15 Home Medications: Ambulatory Orders Amlodipine Besylate [Norvasc -] 10 mg PO DAILY 05/27/18 Escitalopram Oxalate [Lexapro -] 20 mg PO DAILY 05/27/18 Latanoprost 0.005% Eye Drops [Xalatan 0.005% Eye Drops -] 1 drop OP HS 05/27/18 Polyethylene Glycol 3350 [Miralax 119 gm Btl -] 17 gm PO DAILY 05/27/18 Ferrous Sulfate [Feosol] 325 mg PO BID ud 06/04/18 Pantoprazole Sodium [Protonix -] 40 mg PO BID tablet.ec 06/04/18 Allopurinol [Zyloprim -] 100 mg PO DAILY #30 tablet 07/29/18 Levothyroxine [Synthroid -] 125 mcg PO DAILY@0700 #30 tablet MDD 1 07/29/18 Tamsulosin HCl [Flomax -] 0.4 mg PO DAILY@0830 #30 cap.er.24h MDD 1 07/29/18 Acetaminophen [Tylenol .Regular Strength -] 650 mg PO Q6H PRN tablet 09/09/18 Anemia: Yes Asthma: No Cancer: No Cardiac Disorders: No CVA: No COPD: Yes CHF: No Dementia: Yes Diabetes: No GI Disorders: No Disorders: Yes (incont) HTN: Yes Hypercholesterolemia: Yes Liver Disease: No Seizures: No Thyroid Disease: Yes (hypothyroidsm) - Surgical History Abdominal Surgery: No Appendectomy: Yes Cardiac Surgery: No Cholecystectomy: No Lung Surgery: No Neurologic Surgery: No Orthopedic Surgery: No - Immunization History Immunization Up to Date: Yes - Suicide/Smoking/Psychosocial Hx Smoking History: Never smoked Have you smoked in the past 12 months: No Number of Cigarettes Smoked Daily: 5 If you are a former smoker, when did you quit?: 5 years ago Hx Alcohol Use: No Drug/Substance Use Hx: No Substance Use Type: None Hx Substance Use Treatment: No Review of Systems - Review of Systems Able to Perform ROS?: No (dementia) Is the patient limited Angolan proficient: No *Physical Exam - Physical Exam Comments: Vitals stable, pt afebrile. Pt in NAD, normal body habitus. Pt alert and oriented to person only (pt baseline) script editor generally intact, muscular strength and sensation intact. No midline spinal tenderness, step-offs, or crepitus. Head normocephalic, atraumatic. Eyes PERRLA, EOMI. Oropharynx without erythema or exudates, no LAD b/l. No nasal congestion, hearing intact. Clear heart sounds, S1/S2, no JVD, b/l pedal edema, or heart murmur. Clear lung sounds, no respiratory distress, wheezes, crackles, or accessory muscle use. No abdominal or CVA tenderness to palpation, no rebound, no guarding. Abdomen soft, non-distended, and with normoactive bowel sounds. Pt incontinent with diaper. No blood noted in diaper. Skin without jaundice or rash. 10/11/18 06:25 ED Treatment Course - LABORATORY CBC & Chemistry Diagram: 10/11/18 05:00 10/11/18 03:35 Medical Decision Making - Medical Decision Making Pt was seen at bedside, also will be seen by attending Dr. Fernández. Pt presenting with decreasing H/H and refusing her dialysis. Unclear when last dialysis session was. Attempted to call [facility] x3, with no response. Evaluating for H/H, EKG changes, electrolyte imbalances, renal function. Will continue to reassess pt and monitor for symptomatic improvement. ECG: Sinus bradycardia (HR 59, WV 180, QRS 116, QTc 471). No TWIs. J point elevation in V2, with no other changes in other anterior leads or reciprocal depressions. No significant changes from prior ECG (August 2018). 10/11/18 06:25 H/H at 5.4/16 -- ordered 2 units pRBCs, which should be transfused during dialysis. Placed consult for renal team. BUN/CR 143/2.3, which has been pts baseline during prior missed dialysis sessions. Pt admitted to Dr. Cabrera's team. 10/11/18 06:32 *DC/Admit/Observation/Transfer Diagnosis at time of Disposition: CKD (chronic kidney disease) Qualifiers: Chronic kidney disease stage: on chronic dialysis Qualified Code(s): N18.6 - End stage renal disease; Z99.2 - Dependence on renal dialysis Anemia Qualifiers: Anemia type: unspecified type Qualified Code(s): D64.9 - Anemia, unspecified Renal failure (ARF), acute on chronic Qualifiers: Acute renal failure type: unspecified Chronic kidney disease stage: on chronic dialysis Qualified Code(s): N17.9 - Acute kidney failure, unspecified; N18.9 - Chronic kidney disease, unspecified; Z99.2 - Dependence on renal dialysis - Discharge Dispostion Condition at time of disposition: Stable Decision to Admit order: Yes - Referrals - Patient Instructions - Post Discharge Activity
--- NOTE | 2018-10-11 02:54 | PDOC ---
Documentation entered by Alma Rosa Kaplan SCRIBE, acting as scribe for Mervat Fernández DO. Mervat Fernández DO: This documentation has been prepared by the Rosaura marquez Adrianna, SCRIBE, under my direction and personally reviewed by me in its entirety. I confirm that the documentation accurately reflects all work, treatment, procedures, and medical decision making performed by me. Attending Attestation - Resident Resident Name: Skylar Fisher - ED Attending Attestation I have performed the following: I have examined & evaluated the patient, The case was reviewed & discussed with the resident, I agree w/resident's findings & plan - HPI HPI: Patient is a 77 year old female, with a significant PMH of MH Parkinson's, CKD, GI bleeds, and COPD, who presents to the ED [facility] from [facility] with for a hemoglobin of 6.2. As per Nursing note, patient denied dialysis today. Patient denies any complaints while in the ED. Allergies: NKA, NKDA Surgical History: Appendectomy Social History: Former smoker, denies EtOH or illicit drug use PCP: Dr. Cai - Physicial Exam PE: Agree with resident exam. - Medical Decision Making 10/11/18 02:52 77-year-old female sent from her nursing home facility with low hemoglobin and hematocrit Plan for repeat CBC in the emergency department and transfusion if indicated Patient has no additional complaints
[2018-10-11 04:23] LABS: ALBUMIN 2.9 g/dl (3.4-5.0); BILIRUBIN,TOTAL 0.3 mg/dL (0.2-1); CALCIUM 9.1 mg/dL (8.5-10.1); CREATININE 2.3 mg/dL (0.55-1.3); POTASSIUM 4.8 mmol/L (3.5-5.1); TOT PROT 6.2 g/dl (6.4-8.2)
[2018-10-11 04:26] LABS: BLOOD UREA NITROGEN 143.6 mg/dL (7-18)
[2018-10-11 05:13] LABS: BASO % 1.4 % (0-2.0); EOS % 4.9 % (0-4.5); MCH 28.7 pg (25.7-33.7); MCHC 33.1 g/dl (32.0-36.0); MEAN CELL VOLUME 86.5 fl (80-96); MEAN PLT VOLUME 7.1 fl (7.5-11.1); MONO % 6.4 % (3.8-10.2); NEUT % 69.3 % (42.8-82.8); PLATELET COUNT 379 K/MM3 (134-434); RBC 1.88 M/mm3 (3.60-5.2)
[2018-10-11 05:19] LABS: HEMATOCRIT 16.3 % (32.4-45.2); HEMOGLOBIN 5.4 GM/dL (10.7-15.3)
--- NOTE | 2018-10-11 06:03 | HP ---
Admitting History and Physical - Primary Care Physician PCP: Jose Cai (from [facility]) - Admission Chief Complaint: Low Blood Count History of Present Illness: This is a 77 y/o woman from [facility] with a PMHx of CKD, Anemia, GI Bleed, Dementia, COPD, Parkinson's, Failure to Thrive. Sent in for low blood count. Patient has Dementia unable to obtain HPI. History Source: Transfer Record Limitations to Obtaining History: Clinical Condition, Dementia - Past Medical History HEAD OF PRECISION TARGETING: Yes: Dementia, Parkinson's Cardiovascular: Yes: HTN, Hyperlipdemia Pulmonary: Yes: COPD Gastrointestinal: Yes: GERD, GI Bleed Renal/: Yes: Renal Inusuff Heme/Onc: Yes: Anemia Psych: Yes: Depression Musculoskeletal: Yes: Osteoarthritis Rheumatology: Yes: Other (arthritis) Endocrine: Yes: Hypothyroidism - Past Surgical History Past Surgical History: Yes: Appendectomy, Tonsillectomy - Smoking History Smoking history: Never smoked Have you smoked in the past 12 months: No Aproximately how many cigarettes per day: 5 If you are a former smoker, when did you quit?: 5 years ago - Alcohol/Substance Use Hx Alcohol Use: No History of Substance Use: reports: None - Social History Usual Living Arrangement: Yes: Half-Way ADL: Support Services Occupation: retired History of Recent Travel: No Home Medications - Allergies Allergies/Adverse Reactions: Allergies Allergy/AdvReac Type Severity Reaction Status Date / Time No Known Allergies Allergy Verified 09/06/18 15:15 - Home Medications Home Medications: Ambulatory Orders Amlodipine Besylate [Norvasc -] 10 mg PO DAILY 05/27/18 Escitalopram Oxalate [Lexapro -] 20 mg PO DAILY 05/27/18 Latanoprost 0.005% Eye Drops [Xalatan 0.005% Eye Drops -] 1 drop OP HS 05/27/18 Polyethylene Glycol 3350 [Miralax 119 gm Btl -] 17 gm PO DAILY 05/27/18 Ferrous Sulfate [Feosol] 325 mg PO BID ud 06/04/18 Pantoprazole Sodium [Protonix -] 40 mg PO BID tablet.ec 06/04/18 Allopurinol [Zyloprim -] 100 mg PO DAILY #30 tablet 07/29/18 Levothyroxine [Synthroid -] 125 mcg PO DAILY@0700 #30 tablet MDD 1 07/29/18 Tamsulosin HCl [Flomax -] 0.4 mg PO DAILY@0830 #30 cap.er.24h MDD 1 07/29/18 Acetaminophen [Tylenol .Regular Strength -] 650 mg PO Q6H PRN tablet 09/09/18 Family Disease History - Family Disease History Family Disease History: Other: Father ( 70's: pancreatic Ca), Mother (: 70's: [place]), Brother (None), Sister (None), Daughter (3 daughters, 2 , ? causes) Review of Systems Unable to obtain ROS, reason: Dementia Physical Examination Vital Signs: Vital Signs Temperature 98.2 F 10/11/18 01:25 Pulse Rate 60 10/11/18 01:25 Respiratory Rate 18 10/11/18 01:25 Blood Pressure 157/46 L 10/11/18 01:25 O2 Sat by Pulse Oximetry (%) 100 10/11/18 01:25 Constitutional: Yes: Pallor, Other (combative when attempting to examine her) Eyes: Yes: Conjunctiva Clear (pale), PERRL HENT: Yes: WNL, Atraumatic, Normocephalic Neck: Yes: WNL, Supple, Trachea Midline Cardiovascular: Yes: Regular Rate and Rhythm, S1, S2 Respiratory: Yes: WNL, Regular, CTA Bilaterally Gastrointestinal: Yes: Normal Bowel Sounds, Soft ...Rectal Exam: Yes: Guaiac Positive, Sphincter Tone Normal Renal/: Yes: Incontinence Breast(s): Yes: WNL Musculoskeletal: Yes: WNL Edema: No Peripheral Pulses WNL: Yes Neurological: Yes: Confusion, Cran Nerves II-XII Intact ...Motor Strength: WNL Psychiatric: Yes: Alert, Agitated Labs: CBC, BMP 10/11/18 05:00 10/11/18 03:35 Laboratory Results - last 24 hr 10/11/18 10/11/18 10/11/18 03:35 03:35 03:35 WBC Cancelled Corrected WBC (auto) Cancelled RBC Cancelled Hgb Cancelled Hct Cancelled MCV Cancelled MCH Cancelled MCHC Cancelled RDW Cancelled Plt Count Cancelled MPV Cancelled Absolute Neuts (auto) Cancelled Neutrophils % Cancelled Lymphocytes % Cancelled Monocytes % Cancelled Eosinophils % Cancelled Basophils % Cancelled Nucleated RBC % Cancelled Platelet Estimate Cancelled Platelet Comment Cancelled Sodium 136 Potassium 4.8 Chloride 104 Carbon Dioxide 20 L Anion Gap 12 BUN 143.6 H* Creatinine 2.3 H Est GFR (CKD-EPI)AfAm 23.31 Est GFR (CKD-EPI)NonAf 20.12 Random Glucose 100 Calcium 9.1 Total Bilirubin 0.3 AST 36 ALT 17 Alkaline Phosphatase 84 Troponin I < 0.02 Total Protein 6.2 L Albumin 2.9 L Stool Occult Blood Blood Type Antibody Screen Crossmatch 10/11/18 10/11/18 10/11/18 03:35 05:00 05:00 WBC 6.0 Corrected WBC (auto) RBC 1.88 L Hgb 5.4 L* Hct 16.3 L D MCV 86.5 MCH 28.7 MCHC 33.1 RDW 18.0 H Plt Count 379 D MPV 7.1 L Absolute Neuts (auto) 4.1 Neutrophils % 69.3 Lymphocytes % 18.0 D Monocytes % 6.4 Eosinophils % 4.9 H Basophils % 1.4 Nucleated RBC % 0 Platelet Estimate Platelet Comment Sodium Potassium Chloride Carbon Dioxide Anion Gap BUN Creatinine Est GFR (CKD-EPI)AfAm Est GFR (CKD-EPI)NonAf Random Glucose Calcium Total Bilirubin AST ALT Alkaline Phosphatase Troponin I Total Protein Albumin Stool Occult Blood Blood Type Cancelled O NEGATIVE Antibody Screen Cancelled Negative Crossmatch See Detail 10/11/18 06:39 WBC Corrected WBC (auto) RBC Hgb Hct MCV MCH MCHC RDW Plt Count MPV Absolute Neuts (auto) Neutrophils % Lymphocytes % Monocytes % Eosinophils % Basophils % Nucleated RBC % Platelet Estimate Platelet Comment Sodium Potassium Chloride Carbon Dioxide Anion Gap BUN Creatinine Est GFR (CKD-EPI)AfAm Est GFR (CKD-EPI)NonAf Random Glucose Calcium Total Bilirubin AST ALT Alkaline Phosphatase Troponin I Total Protein Albumin Stool Occult Blood Positive Blood Type Antibody Screen Crossmatch Imaging - Results Chest X-ray: Pending EKG: Image Reviewed Problem List - Problems (1) Anemia Code(s): D64.9 - ANEMIA, UNSPECIFIED Qualifiers: Anemia type: unspecified type Qualified Code(s): D64.9 - Anemia, unspecified (2) CKD (chronic kidney disease) Code(s): N18.9 - CHRONIC KIDNEY DISEASE, UNSPECIFIED Qualifiers: Chronic kidney disease stage: on chronic dialysis Qualified Code(s): N18.6 - End stage renal disease; Z99.2 - Dependence on renal dialysis (3) GIB (gastrointestinal bleeding) Code(s): K92.2 - GASTROINTESTINAL HEMORRHAGE, UNSPECIFIED (4) Failure to thrive Code(s): [id number] - (5) HTN (hypertension) Code(s): I10 - ESSENTIAL (PRIMARY) HYPERTENSION (6) Hypothyroid Code(s): E03.9 - HYPOTHYROIDISM, UNSPECIFIED Qualifiers: Assessment/Plan This is a 77 y/o woman with a PMHx of CKD, Anemia, GI Bleed, COPD, Parkinson's, Failure to Thrive. Admitted to Telemetry for Anemia, GI Bleed, CKD for further evaluation of their emergent condition. Plan: Admit to Telemetry Likely due to CKD vs Malignancy Cardiac Monitoring PRBCs x 2 ordered in ED Serial CBCs Check Fe, TIBC, Ferritin Stool Occult- positive Appreciate Nephrology consult Appreciate GI Consult PPI Monitor BMP Continue Norvasc, Levothyroxine, Flomax, Xalatan Fall Precautions FEN- Replete lytes prn, Clear Diet as tolerated DVT ppx- SCDs. Hold AC 2/2 Anemia Code Status: Full Code Dispo: Requires Inpatient Care Visit type - Emergency Visit Emergency Visit: Yes ED Registration Date: 10/11/18 Care time: The patient presented to the Emergency Department on the above date and was hospitalized for further evaluation of their emergent condition. - New Patient This patient is new to me today: Yes Date on this admission: 10/11/18 - Critical Care Critical Care patient: No
[2018-10-11] MEDS ORDERED: PANTOPRAZOLE SODIUM 40 MG VIAL IVPUSH ONE (07:45)
[2018-10-11] MEDS ORDERED: ACETAMINOPHEN 325 MG TABLET (FP) PO ONE (08:39)
[2018-10-11] MEDS ORDERED: ACETAMINOPHEN 325 MG TABLET (FP) ONE (08:47)
[2018-10-11] MEDS ORDERED: PANTOPRAZOLE SODIUM 40 MG VIAL ONE (08:49)
--- NOTE | 2018-10-11 14:13 | CONSULT ---
Consult Consult Specialty:: Nephrology Reason for Consultation:: CKD - History of Present Illness Chief Complaint: sent in for anemia History of Present Illness: Pt is a 77 year old female with pmhx of ckd, copd, dementia, gi bleed and parkinsons who presents to the ER with anemia. She has multiple admissions for anemia. She has been refusing endoscopy. SHe was found to have worsening uremia and I was called to evaluate her. She denies shortness of breath. She complains of weakness. She missed her last office visit. She is poor historian. - History Source Limitations to Obtaining History: Dementia - Past Medical History PHYSICIAN ASSISTANT: Yes: Dementia, Parkinson's Cardio/Vascular: Yes: HTN, Hyperlipdemia Pulmonary: Yes: COPD Gastrointestinal: Yes: GERD, GI Bleed Renal/: Yes: Renal Inusuff Psych: Yes: Depression Musculoskeletal: Yes: Osteoarthritis Rheumatology: Yes: Other (arthritis) Endocrine: Yes: Hypothyroidism - Past Surgical History Past Surgical History: Yes: Appendectomy, Tonsillectomy - Alcohol/Substance Use Hx Alcohol Use: No History of Substance Use: reports: None - Smoking History Smoking history: Never smoked Have you smoked in the past 12 months: No Aproximately how many cigarettes per day: 5 If you are a former smoker, when did you quit?: 5 years ago - Social History Usual Living Arrangement: Shelter ADL: Support Services Occupation: retired History of Recent Travel: No Home Medications - Allergies Allergies/Adverse Reactions: Allergies Allergy/AdvReac Type Severity Reaction Status Date / Time No Known Allergies Allergy Verified 09/06/18 15:15 - Home Medications Home Medications: Ambulatory Orders Amlodipine Besylate [Norvasc -] 10 mg PO DAILY 05/27/18 Escitalopram Oxalate [Lexapro -] 20 mg PO DAILY 05/27/18 Latanoprost 0.005% Eye Drops [Xalatan 0.005% Eye Drops -] 1 drop OP HS 05/27/18 Polyethylene Glycol 3350 [Miralax 119 gm Btl -] 17 gm PO DAILY 05/27/18 Ferrous Sulfate [Feosol] 325 mg PO BID ud 06/04/18 Pantoprazole Sodium [Protonix -] 40 mg PO BID tablet.ec 06/04/18 Allopurinol [Zyloprim -] 100 mg PO DAILY #30 tablet 07/29/18 Levothyroxine [Synthroid -] 125 mcg PO DAILY@0700 #30 tablet MDD 1 07/29/18 Tamsulosin HCl [Flomax -] 0.4 mg PO DAILY@0830 #30 cap.er.24h MDD 1 07/29/18 Acetaminophen [Tylenol .Regular Strength -] 650 mg PO Q6H PRN tablet 09/09/18 Family Disease History - Family Disease History Family Disease History: Other: Father ( 70's: pancreatic Ca), Mother (: 70's: [place]), Brother (None), Sister (None), Daughter (3 daughters, 2 , ? causes) Review of Systems - Review of Systems Constitutional: reports: Malaise Eyes: reports: No Symptoms HENT: reports: No Symptoms Neck: reports: No Symptoms Cardiovascular: reports: No Symptoms Respiratory: reports: No Symptoms Gastrointestinal: reports: No Symptoms Genitourinary: reports: No Symptoms Musculoskeletal: reports: No Symptoms Integumentary: reports: No Symptoms Neurological: reports: No Symptoms Endocrine: reports: No Symptoms Hematology/Lymphatic: reports: No Symptoms Psychiatric: reports: No Symptoms Physical Exam Vital Signs: Vital Signs Temperature 98.2 F 10/11/18 13:30 Pulse Rate 66 10/11/18 13:30 Respiratory Rate 20 10/11/18 13:30 Blood Pressure 164/60 10/11/18 13:30 O2 Sat by Pulse Oximetry (%) 100 10/11/18 13:30 Constitutional: Yes: Calm Eyes: Yes: Conjunctiva Clear HENT: Yes: Atraumatic Neck: Yes: Supple Cardiovascular: Yes: S1, S2 Respiratory: Yes: CTA Bilaterally Gastrointestinal: Yes: Soft Renal/: Yes: Incontinence Musculoskeletal: Yes: Muscle Weakness Edema: No Neurological: Yes: Oriented Labs: CBC, BMP 10/11/18 05:00 10/11/18 03:35 Imaging - Results Chest X-ray: Report Reviewed Problem List - Problems (1) Anemia Code(s): D64.9 - ANEMIA, UNSPECIFIED Qualifiers: Anemia type: unspecified type Qualified Code(s): D64.9 - Anemia, unspecified (2) CKD (chronic kidney disease) Code(s): N18.9 - CHRONIC KIDNEY DISEASE, UNSPECIFIED Qualifiers: Chronic kidney disease stage: on chronic dialysis Qualified Code(s): N18.6 - End stage renal disease; Z99.2 - Dependence on renal dialysis Assessment/Plan Current Medications Generic Name Dose Route Start Last Admin Trade Name Freq PRN Reason Stop Dose Admin Pantoprazole Sodium 40 mg 10/12/18 10:00 Protonix Iv IVPUSH DAILY LINNEA Impression 1. CKD 2. right renal cyst 3. lucero 4. hypothryoid 5. dementia 6. parkinsons 7. HTN 8. gout 9. uremia 10. anemia 11. GI bleed Plan - transfuse prbc - GI eval - check iron studies - bun likely elevated from GI bleed - restart po bicarb - avoid nsaids - avoid nephrotoxins Dr John
--- NOTE | 2018-10-11 16:05 | EKG ---
Test Reason : Blood Pressure : / mmHG Vent. Rate : 059 BPM Atrial Rate : 059 BPM P-R Int : 180 ms QRS Dur : 116 ms QT Int : 476 ms P-R-T Axes : 057 034 073 degrees QTc Int : 471 ms SINUS BRADYCARDIA NONSPECIFIC ST AND T WAVE ABNORMALITY ABNORMAL ECG WHEN COMPARED WITH ECG OF 06-SEP-2018 16:40, PREMATURE ATRIAL COMPLEXES ARE NO LONGER PRESENT NONSPECIFIC T WAVE ABNORMALITY NO LONGER EVIDENT IN INFERIOR LEADS T WAVE INVERSION LESS EVIDENT IN LATERAL LEADS Confirmed by MD TA, MOJGAN ([id number]) on 10/11/2018 4:05:15 PM Referred By: Donta ROWE Confirmed By:MOJGAN CHAPPELL MD
--- NOTE | 2018-10-11 16:59 | PN ---
Progress Note, Physician Chief Complaint: Anemia GI bleed History of Present Illness: Previous notes and events reviewed awake and confused NAD Hg 5.4 Stool OB positive receiving PRBC transfusion on exam - Current Medication List Current Medications: Active Medications Pantoprazole Sodium (Protonix Iv) 40 mg IVPUSH DAILY LINNEA Sodium Bicarbonate (Sodium Bicarbonate -) 650 mg PO BID LINNEA - Objective Vital Signs: Vital Signs Temperature 97.3 F L 10/11/18 15:00 Pulse Rate 76 10/11/18 15:00 Respiratory Rate 18 10/11/18 15:00 Blood Pressure 165/74 10/11/18 15:00 O2 Sat by Pulse Oximetry (%) 100 10/11/18 13:30 Constitutional: Yes: No Distress, Calm, Cachectic Eyes: Yes: Conjunctiva Clear HENT: Yes: Atraumatic Cardiovascular: Yes: Regular Rate and Rhythm Respiratory: Yes: Regular, Diminished, On Nasal O2 Gastrointestinal: Yes: Normal Bowel Sounds, Soft Musculoskeletal: Yes: Muscle Weakness Extremities: Yes: WNL Neurological: Yes: Alert, Pre-Existing Deficit Psychiatric: Yes: Alert Labs: CBC, BMP 10/11/18 05:00 10/11/18 03:35 Problem List - Problems (1) Anemia Assessment/Plan: -GI consult -Hg 5.4 -receiving PRBC transfusion--will repeat CBC to check Hg -monitor Hg daily -transfuse for Hg <8.0 -Stool OB positive Code(s): D64.9 - ANEMIA, UNSPECIFIED Qualifiers: Anemia type: unspecified type Qualified Code(s): D64.9 - Anemia, unspecified (2) CKD (chronic kidney disease) Assessment/Plan: -Renal on board -BUN/Cr 143.6/2.3 -monitor renal function -avoid nephrotoxic medication Code(s): N18.9 - CHRONIC KIDNEY DISEASE, UNSPECIFIED Qualifiers: Chronic kidney disease stage: on chronic dialysis Qualified Code(s): N18.6 - End stage renal disease; Z99.2 - Dependence on renal dialysis (3) Renal failure (ARF), acute on chronic Assessment/Plan: -Renal on board -BUN/Cr 143.6/2.3 -monitor renal function -avoid nephrotoxic medication -Sodium Bicarb Code(s): N17.9 - ACUTE KIDNEY FAILURE, UNSPECIFIED; N18.9 - CHRONIC KIDNEY DISEASE, UNSPECIFIED Qualifiers: Acute renal failure type: unspecified Chronic kidney disease stage: on chronic dialysis Qualified Code(s): N17.9 - Acute kidney failure, unspecified ; N18.9 - Chronic kidney disease, unspecified; Z99.2 - Dependence on renal dialysis (4) COPD (chronic obstructive pulmonary disease) Assessment/Plan: -O2 via NC -keep SpO2 >90% Code(s): J44.9 - CHRONIC OBSTRUCTIVE PULMONARY DISEASE, UNSPECIFIED (5) HTN (hypertension) Assessment/Plan: -amlodipine Code(s): I10 - ESSENTIAL (PRIMARY) HYPERTENSION (6) Hypothyroid Assessment/Plan: -Levothyroxine Code(s): E03.9 - HYPOTHYROIDISM, UNSPECIFIED (7) GI bleed Assessment/Plan: -GI consult -Hg 5.4 -receiving PRBC transfusion--will repeat CBC to check Hg -monitor Hg daily -transfuse for Hg <8.0 -Stool OB positive Code(s): K92.2 - GASTROINTESTINAL HEMORRHAGE, UNSPECIFIED Qualifiers: GI bleed type/associated pathology: unspecified gastrointestinal hemorrhage type Qualified Code(s): K92.2 - Gastrointestinal hemorrhage, unspecified Assessment/Plan see problem list
[2018-10-11] MEDS ORDERED: ESCITALOPRAM OXALATE 10 MG TABLET (FP) ONE (20:12)
[2018-10-11] MEDS: amLODIPine BESYLATE 5 MG TABLET (FP) PO SCH (20:15)
[2018-10-11] MEDS: ESCITALOPRAM OXALATE 10 MG TABLET (FP) PO SCH (20:15)
--- NOTE | 2018-10-11 20:41 | CON.GI ---
Consult Consult Specialty:: GI Referred by:: Dr. Cabrera Reason for Consultation:: anemia - History of Present Illness Chief Complaint: Patient confused. No focal complaints History of Present Illness: 77F admitted from [place] for evaluation of anemia and melena. Hgb 5.4 on admission and received 2 U PRBC. gauaic + stool noted in ED. has refused evaluation of melena / suspected UGIB on multiple occasions, including last month. Please review [facility] for full history regarding this. 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: Dementia, Parkinson's Cardio/Vascular: Yes: HTN, Hyperlipdemia Pulmonary: Yes: COPD Gastrointestinal: Yes: GERD, GI Bleed Renal/: Yes: Renal Inusuff Psych: Yes: Depression Musculoskeletal: Yes: Osteoarthritis Rheumatology: Yes: Other (arthritis) Endocrine: Yes: Hypothyroidism - Past Surgical History Past Surgical History: Yes: Appendectomy, Tonsillectomy - Alcohol/Substance Use Hx Alcohol Use: No History of Substance Use: reports: None - Smoking History Smoking history: Never smoked Have you smoked in the past 12 months: No Aproximately how many cigarettes per day: 5 If you are a former smoker, when did you quit?: 5 years ago - Social History Usual Living Arrangement: Detention ADL: Support Services Occupation: retired History of Recent Travel: No Home Medications - Allergies Allergies/Adverse Reactions: Allergies Allergy/AdvReac Type Severity Reaction Status Date / Time No Known Allergies Allergy Verified 09/06/18 15:15 - Home Medications Home Medications: Ambulatory Orders Amlodipine Besylate [Norvasc -] 10 mg PO DAILY 05/27/18 Escitalopram Oxalate [Lexapro -] 20 mg PO DAILY 05/27/18 Latanoprost 0.005% Eye Drops [Xalatan 0.005% Eye Drops -] 1 drop OP HS 05/27/18 Polyethylene Glycol 3350 [Miralax 119 gm Btl -] 17 gm PO DAILY 05/27/18 Ferrous Sulfate [Feosol] 325 mg PO BID ud 06/04/18 Pantoprazole Sodium [Protonix -] 40 mg PO BID tablet.ec 06/04/18 Allopurinol [Zyloprim -] 100 mg PO DAILY #30 tablet 07/29/18 Levothyroxine [Synthroid -] 125 mcg PO DAILY@0700 #30 tablet MDD 1 07/29/18 Tamsulosin HCl [Flomax -] 0.4 mg PO DAILY@0830 #30 cap.er.24h MDD 1 07/29/18 Acetaminophen [Tylenol .Regular Strength -] 650 mg PO Q6H PRN tablet 09/09/18 Family Disease History - Family Disease History Family Disease History: Other: Father ( 70's: pancreatic Ca), Mother (: 70's: [place]), Brother (None), Sister (None), Daughter (3 daughters, 2 , ? causes) Review of Systems Unable to obtain ROS, reason: Deies focal GI complaints Physical Exam-GI Vital Signs: Vital Signs Temperature 97.4 F L 10/11/18 17:47 Pulse Rate 72 10/11/18 17:47 Respiratory Rate 17 10/11/18 17:47 Blood Pressure 156/59 L 10/11/18 17:47 O2 Sat by Pulse Oximetry (%) 90 L 10/11/18 17:25 Constitutional: Yes: Calm Eyes: No: Sclera Icterus Cardiovascular: Yes: Regular Rate and Rhythm Respiratory: Yes: Diminished (at bases b/l with poor insp effort) Gastrointestinal Inspection: No: Distention ...Auscultate: Yes: Normoactive Bowel Sounds ...Palpate: Yes: Soft. No: Hepatomegaly, Splenomegaly, Tenderness ...Percussion: No: Tympanitic Edema: No Neurological: Yes: Alert, Confusion Labs: CBC, BMP 10/11/18 05:00 10/11/18 03:35 Problem List - Problems (1) GI bleed Assessment/Plan: Unclear what the goals are at this time as she has been admitted on multiple prior occasions for the same issue. A clear, definitive plan will need to be made regarding the future of her care. ? hospice. consider ethics evaluation. Monitor H/H and for overt bleeding PPI drip for total of 72 Currently the patient seems mor confused from her baseline. Decision making capacity will need to be clarified. Daughter has been unreachable on Ms. Colon' last admissions. Code(s): K92.2 - GASTROINTESTINAL HEMORRHAGE, UNSPECIFIED Qualifiers: GI bleed type/associated pathology: unspecified gastrointestinal hemorrhage type Qualified Code(s): K92.2 - Gastrointestinal hemorrhage, unspecified
[2018-10-11] MEDS: FERROUS SO4 325 MG TABLET (FP) PO SCH (22:45)
[2018-10-11] MEDS: LATANOPROST 0.005% OPHTH SOLN 2.5ML BOTTLE OD SCH (22:45)
[2018-10-11] MEDS: PANTOPRAZOLE SODIUM 80 MG in SODIUM CHLORIDE 100 ML IVPB SCH (22:45)
[2018-10-11] MEDS: SODIUM BICARBONATE 650 MG TABLET PO SCH (22:45)
[2018-10-12 00:47] LABS: MONO % 4.7 % (3.8-10.2)
[2018-10-12 00:52] LABS: BASO % 1.3 % (0-2.0); EOS % 3.2 % (0-4.5); HEMATOCRIT 26.3 % (32.4-45.2); HEMOGLOBIN 8.8 GM/dL (10.7-15.3); LYMPH % 12.3 % (8-40); MCH 28.6 pg (25.7-33.7); MCHC 33.6 g/dl (32.0-36.0); MEAN CELL VOLUME 84.9 fl (80-96); MEAN PLT VOLUME 7.8 fl (7.5-11.1); NEUT % 78.5 % (42.8-82.8); PLATELET COUNT 413 K/MM3 (134-434); RBC 3.09 M/mm3 (3.60-5.2); RDW 17.2 % (11.6-15.6); WHITE BLOOD COUNT 8.6 K/mm3 (4.0-10.0)
[2018-10-12] MEDS: LEVOTHYROXINE NA 125 MCG TABLET (FP) PO SCH (07:36)
[2018-10-12 07:50] LABS: BASO % 1.3 % (0-2.0); EOS % 3.9 % (0-4.5); HEMATOCRIT 26.4 % (32.4-45.2); HEMOGLOBIN 9.2 GM/dL (10.7-15.3); LYMPH % 11.9 % (8-40); MCH 29.2 pg (25.7-33.7); MCHC 34.6 g/dl (32.0-36.0); MEAN CELL VOLUME 84.2 fl (80-96); MEAN PLT VOLUME 7.9 fl (7.5-11.1); MONO % 5.1 % (3.8-10.2); NEUT % 77.8 % (42.8-82.8); PLATELET COUNT 407 K/MM3 (134-434); RBC 3.14 M/mm3 (3.60-5.2); WHITE BLOOD COUNT 6.3 K/mm3 (4.0-10.0)
[2018-10-12 08:44] LABS: CALCIUM 9.6 mg/dL (8.5-10.1); CREATININE 2.3 mg/dL (0.55-1.3); POTASSIUM 3.8 mmol/L (3.5-5.1)
[2018-10-12 08:47] LABS: BLOOD UREA NITROGEN 147.6 mg/dL (7-18)
--- NOTE | 2018-10-12 08:58 | PN ---
Progress Note, Physician - Current Medication List Current Medications: Active Medications Amlodipine Besylate (Norvasc -) 10 mg PO DAILY [facility] Last Admin: 10/11/18 20:15 Dose: 10 mg Escitalopram Oxalate (Lexapro -) 20 mg PO DAILY [facility] Last Admin: 10/11/18 20:15 Dose: 20 mg Ferrous Sulfate (Feosol -) 325 mg PO BID [facility] Last Admin: 10/11/18 22:45 Dose: 325 mg Pantoprazole Sodium 80 mg/ (Sodium Chloride) 100 mls @ 10 mls/hr IVPB Q10H [facility] Last Admin: 10/11/18 22:45 Dose: 10 mls/hr Potassium Chloride 10 meq/ (Dextrose/Sodium Chloride) 1,005 mls @ 75 mls/hr IV Q13H [facility] Latanoprost (Xalatan 0.005% Eye Drops -) 1 drop OD HS [facility] Last Admin: 10/11/18 22:45 Dose: 1 drop Levothyroxine Sodium (Synthroid -) 125 mcg PO DAILY@0700 [facility] Last Admin: 10/12/18 07:36 Dose: Not Given Sodium Bicarbonate (Sodium Bicarbonate -) 650 mg PO BID [facility] Last Admin: 10/11/18 22:45 Dose: 650 mg Tamsulosin HCl (Flomax -) 0.4 mg PO DAILY@0830 [facility] - Objective Vital Signs: Vital Signs Temperature 98.9 F 10/12/18 06:00 Pulse Rate 64 10/12/18 06:00 Respiratory Rate 20 10/12/18 08:49 Blood Pressure 154/64 10/12/18 06:00 O2 Sat by Pulse Oximetry (%) 97 10/12/18 08:49 Cardiovascular: Yes: S1, S2 Respiratory: Yes: Regular, CTA Bilaterally Gastrointestinal: Yes: Normal Bowel Sounds, Soft Edema: No Neurological: Yes: Lethargy, Weakness Labs: CBC, BMP 10/12/18 06:51 10/12/18 06:51 Assessment/Plan - Problems (1) Anemia Assessment/Plan: -GI consult noted -Hg 5.4-8.8-9.2 -received PRBC transfusion-- -monitor Hg daily -transfuse for Hg <8.0 -Stool OB positive Code(s): D64.9 - ANEMIA, UNSPECIFIED Qualifiers: Anemia type: unspecified type Qualified Code(s): D64.9 - Anemia, unspecified (2) CKD (chronic kidney disease) Assessment/Plan: -Renal on board -BUN/Cr 143.6/2.3 -monitor renal function -avoid nephrotoxic medication Code(s): N18.9 - CHRONIC KIDNEY DISEASE, UNSPECIFIED Qualifiers: Chronic kidney disease stage: on chronic dialysis Qualified Code(s): N18.6 - End stage renal disease; Z99.2 - Dependence on renal dialysis (3) Renal failure (ARF), acute on chronic Assessment/Plan: -Renal on board -BUN/Cr 143.6/2.3 -monitor renal function -avoid nephrotoxic medication -Sodium Bicarb -IVF Code(s): N17.9 - ACUTE KIDNEY FAILURE, UNSPECIFIED; N18.9 - CHRONIC KIDNEY DISEASE, UNSPECIFIED Qualifiers: Acute renal failure type: unspecified Chronic kidney disease stage: on chronic dialysis Qualified Code(s): N17.9 - Acute kidney failure, unspecified ; N18.9 - Chronic kidney disease, unspecified; Z99.2 - Dependence on renal dialysis (4) COPD (chronic obstructive pulmonary disease) Assessment/Plan: -O2 via NC -keep SpO2 >90% Code(s): J44.9 - CHRONIC OBSTRUCTIVE PULMONARY DISEASE, UNSPECIFIED (5) HTN (hypertension) Assessment/Plan: -amlodipine Code(s): I10 - ESSENTIAL (PRIMARY) HYPERTENSION (6) Hypothyroid Assessment/Plan: -Levothyroxine Code(s): E03.9 - HYPOTHYROIDISM, UNSPECIFIED (7) GI bleed Assessment/Plan: -GI consult noted--work up limited due to difficulty getting consent -Hg 5.4---9.2 -received PRBC transfusion -monitor Hg daily -transfuse for Hg <8.0 -Stool OB positive Code(s): K92.2 - GASTROINTESTINAL HEMORRHAGE, UNSPECIFIED Qualifiers: GI bleed type/associated pathology: unspecified gastrointestinal hemorrhage type Qualified Code(s): K92.2 - Gastrointestinal hemorrhage, unspecified (8) Lethargy Assessment/Plan: -Follow culture- -IVF -Neuro
[2018-10-12] MEDS ORDERED: DEXTROSE 5%-NORMAL SALINE 1,000 ML with POTASSIUM CHLORIDE 10 MEQ IV SCH (09:00)
[2018-10-12] MEDS: TAMSULOSIN HCL 0.4 MG CAP PO SCH (09:35)
[2018-10-12] MEDS: ESCITALOPRAM OXALATE 10 MG TABLET (FP) PO SCH (09:35)
[2018-10-12] MEDS: amLODIPine BESYLATE 5 MG TABLET (FP) PO SCH (09:35)
[2018-10-12] MEDS: PANTOPRAZOLE SODIUM 80 MG in SODIUM CHLORIDE 100 ML IVPB SCH ×2 (09:36→17:10)
[2018-10-12] MEDS: SODIUM BICARBONATE 650 MG TABLET PO SCH ×2 (09:36→23:27)
[2018-10-12] MEDS: FERROUS SO4 325 MG TABLET (FP) PO SCH ×2 (09:36→23:27)
[2018-10-12] MEDS ORDERED: PANTOPRAZOLE SODIUM 40 MG VIAL IVPUSH SCH (10:00)
[2018-10-12] MEDS ORDERED: PT OWN MED DRAWER 7, Y5N ONE (11:50)
--- NOTE | 2018-10-12 14:20 | PN.GI ---
GI Progress Note Subjective: Pt seen/examined at bedside. Still appears confused, unclear of reason for admission. Denies abdominal pain or n/v. No melena or hematochezia reported. Brown stool on exam today. - Objective Vital Signs: Vital Signs Temperature 98.8 F 10/12/18 08:56 Pulse Rate 63 10/12/18 08:56 Respiratory Rate 20 10/12/18 08:56 Blood Pressure 153/77 10/12/18 08:56 O2 Sat by Pulse Oximetry (%) 97 10/12/18 08:56 Constitutional: No Distress, Calm Cardiovascular: Yes: WNL, Regular Rate and Rhythm Respiratory: Yes: WNL, Regular, CTA Bilaterally ...Palpate: Yes: Other (Abd soft, nt, nd Rectal exam: dark green stool, no blood ) Labs: CBC, BMP 10/12/18 06:51 10/12/18 06:51 Problem List - Problems (1) Anemia Assessment/Plan: Multiple prior admissions with acute on chronic anemia, last seen by GI in 2018 and pt repeatedly refused endoscopic evaluation. Also unclear if pt has decision making capacity, is not able to verbalize understanding of the procedures. Refusing endoscopy at this time. No overt bleeding currently (greenish stool on rectal exam). Response to prbc transfusion noted. -Continue to closely monitor Hb and for evidence of bleeding -PPI bid -While pt would require endoscopy no urgent indication currently in absence of overt bleed and with stable Hb. Decision making capacity and GOC still to be clarified. Attempted to contact pts daughter (STARLA) by phone, states number unavailable. -Consider psych re-evaluation -In the interim if overt bleeding with drop in Hb or hemodynamic instability please notify GI for re-evaluation. Code(s): D64.9 - ANEMIA, UNSPECIFIED Qualifiers: Anemia type: unspecified type Qualified Code(s): D64.9 - Anemia, unspecified
--- NOTE | 2018-10-12 16:23 | PN ---
Progress Note, Physician History of Present Illness: Pt seen and examined at bedside. She is more awake and interactive than yesterday but not back at baseline. - Current Medication List Current Medications: Active Medications Amlodipine Besylate (Norvasc -) 10 mg PO DAILY [facility] Last Admin: 10/12/18 09:35 Dose: 10 mg Escitalopram Oxalate (Lexapro -) 20 mg PO DAILY [facility] Last Admin: 10/12/18 09:35 Dose: 20 mg Ferrous Sulfate (Feosol -) 325 mg PO BID [facility] Last Admin: 10/12/18 09:36 Dose: 325 mg Pantoprazole Sodium 80 mg/ (Sodium Chloride) 100 mls @ 10 mls/hr IVPB Q10H [facility] Last Admin: 10/12/18 09:36 Dose: 10 mls/hr Potassium Chloride 10 meq/ (Dextrose/Sodium Chloride) 1,005 mls @ 75 mls/hr IV Q13H [facility] Last Admin: 10/12/18 09:45 Dose: 75 mls/hr Latanoprost (Xalatan 0.005% Eye Drops -) 1 drop OD HS [facility] Last Admin: 10/11/18 22:45 Dose: 1 drop Levothyroxine Sodium (Synthroid -) 125 mcg PO DAILY@0700 [facility] Last Admin: 10/12/18 07:36 Dose: Not Given Sodium Bicarbonate (Sodium Bicarbonate -) 650 mg PO BID [facility] Last Admin: 10/12/18 09:36 Dose: 650 mg Tamsulosin HCl (Flomax -) 0.4 mg PO DAILY@0830 [facility] Last Admin: 10/12/18 09:35 Dose: 0.4 mg - Objective Vital Signs: Vital Signs Temperature 98.1 F 10/12/18 14:02 Pulse Rate 67 10/12/18 14:02 Respiratory Rate 20 10/12/18 14:02 Blood Pressure 150/54 L 10/12/18 14:02 O2 Sat by Pulse Oximetry (%) 97 10/12/18 08:56 Constitutional: Yes: Calm Eyes: Yes: Conjunctiva Clear HENT: Yes: Atraumatic Neck: Yes: Supple Cardiovascular: Yes: S1, S2 Respiratory: Yes: CTA Bilaterally Gastrointestinal: Yes: Soft Genitourinary: Yes: Incontinence Musculoskeletal: Yes: Muscle Weakness Edema: No Neurological: Yes: Oriented Labs: CBC, BMP 10/12/18 06:51 10/12/18 06:51 Problem List - Problems (1) Anemia Code(s): D64.9 - ANEMIA, UNSPECIFIED Qualifiers: Anemia type: unspecified type Qualified Code(s): D64.9 - Anemia, unspecified (2) CKD (chronic kidney disease) Code(s): N18.9 - CHRONIC KIDNEY DISEASE, UNSPECIFIED Qualifiers: Chronic kidney disease stage: on chronic dialysis Qualified Code(s): N18.6 - End stage renal disease; Z99.2 - Dependence on renal dialysis Assessment/Plan Current Medications Generic Name Dose Route Start Last Admin Trade Name Freq PRN Reason Stop Dose Admin Amlodipine Besylate 10 mg 10/11/18 19:30 10/12/18 09:35 Norvasc - PO 10 mg DAILY [facility] Administration Escitalopram Oxalate 20 mg 10/11/18 19:30 10/12/18 09:35 Lexapro - PO 20 mg DAILY [facility] Administration Ferrous Sulfate 325 mg 10/11/18 22:00 10/12/18 09:36 Feosol - PO 325 mg BID [facility] Administration Pantoprazole Sodium 80 mg/ 100 mls @ 10 mls/hr 10/11/18 21:00 10/12/18 09:36 Sodium Chloride IVPB 10 mls/hr Q10H [facility] Administration 8 MG/HR Potassium Chloride 10 meq/ 1,005 mls @ 75 mls/hr 10/12/18 09:00 10/12/18 09: 45 Dextrose/Sodium Chloride IV 75 mls/hr Q13H [facility] Administration Latanoprost 1 drop 10/11/18 22:00 10/11/18 22:45 Xalatan 0.005% Eye Drops - OD 1 drop HS [facility] Administration Levothyroxine Sodium 125 mcg 10/12/18 07:00 10/12/18 07:36 Synthroid - PO Not Given DAILY@0700 [facility] Sodium Bicarbonate 650 mg 10/11/18 22:00 10/12/18 09:36 Sodium Bicarbonate - PO 650 mg BID [facility] Administration Tamsulosin HCl 0.4 mg 10/12/18 08:30 10/12/18 09:35 Flomax - PO 0.4 mg DAILY@0830 [facility] Administration Impression 1. CKD 2. right renal cyst 3. lucero 4. hypothryoid 5. dementia 6. parkinsons 7. HTN 8. gout 9. uremia 10. anemia 11. GI bleed Plan - change fluids to d5 1/2 - monitor renal function - GI workup in progress - con po bicarb - bun likely elevated from GI bleed - avoid nsaids - avoid nephrotoxins Dr John
[2018-10-12] MEDS: DEXTROSE 5%-0.45% SALINE 1,000 ML IV SCH (17:11)
--- NOTE | 2018-10-12 22:48 | PN ---
Mental Health Exam - Mental Status Exam Alert and Oriented to: Person (dosorientated by 3. ) Cognitive Function: Impaired Patient Appearance: Unkempt Mood: Anxious Affect: Flat, Constricted Patient Behavior: Passive, Cooperative (not resistative to care. ) Speech Pattern: Rambling, Perseverating Voice Loudness: Mildly Soft/Quiet Thought Process: Tangential, Disorganized, Disoriented Thought Disorder: Not Present Hallucinations: None Suicidal Ideation: Denies Homicidal Ideation: Denies Insight/Judgement: Impaired Sleep: Fair Appetite: Weight loss Muscle strength/Tone: Mild Hypotonicity Gait/Station: Deferred Additional Comments: Martina is a 77 yo resides at an extended care facility seen by psychiatry service today for ccapacity. Her descision making capacity is questioned due to not agreeing to endocopy to understand GI bleed. Client has advanced denentia. She currently lack ability to understand the investigation. She does not have descision making capacity after reviewing past notes, talk with her RN Evon this evening, interview of client at bedside. DX anxiety disorder. reduce lexapro to 15 mg due to chronic medical conditions, renal, hepatic?
[2018-10-12] MEDS: LATANOPROST 0.005% OPHTH SOLN 2.5ML BOTTLE OD SCH (23:27)
[2018-10-13] MEDS: PANTOPRAZOLE SODIUM 80 MG in SODIUM CHLORIDE 100 ML IVPB SCH ×3 (00:18→23:25)
[2018-10-13] MEDS: LEVOTHYROXINE NA 125 MCG TABLET (FP) PO SCH (06:11)
[2018-10-13 08:01] LABS: BILIRUBIN,TOTAL 0.8 mg/dL (0.2-1); CALCIUM 9.3 mg/dL (8.5-10.1); CREATININE 2.2 mg/dL (0.55-1.3); POTASSIUM 3.9 mmol/L (3.5-5.1); TOT PROT 6.2 g/dl (6.4-8.2)
[2018-10-13 08:03] LABS: BASO % 1.3 % (0-2.0); EOS % 6.2 % (0-4.5); HEMATOCRIT 23.3 % (32.4-45.2); LYMPH % 12.1 % (8-40); MCH 29.2 pg (25.7-33.7); MCHC 34.5 g/dl (32.0-36.0); MEAN CELL VOLUME 84.7 fl (80-96); MEAN PLT VOLUME 7.7 fl (7.5-11.1); MONO % 6.9 % (3.8-10.2); NEUT % 73.5 % (42.8-82.8); PLATELET COUNT 414 K/MM3 (134-434); RBC 2.75 M/mm3 (3.60-5.2); RDW 17.5 % (11.6-15.6); WHITE BLOOD COUNT 6.4 K/mm3 (4.0-10.0)
--- NOTE | 2018-10-13 08:11 | PN ---
Progress Note, Physician - Current Medication List Current Medications: Active Medications Amlodipine Besylate (Norvasc -) 10 mg PO DAILY [facility] Last Admin: 10/12/18 09:35 Dose: 10 mg Escitalopram Oxalate (Lexapro -) 20 mg PO DAILY [facility] Last Admin: 10/12/18 09:35 Dose: 20 mg Ferrous Sulfate (Feosol -) 325 mg PO BID [facility] Last Admin: 10/12/18 23:27 Dose: 325 mg Pantoprazole Sodium 80 mg/ (Sodium Chloride) 100 mls @ 10 mls/hr IVPB Q10H [facility] Last Admin: 10/13/18 00:18 Dose: 10 mls/hr Dextrose/Sodium Chloride (D5-1/2ns -) 1,000 mls @ 75 mls/hr IV ASDIR [facility] Last Admin: 10/12/18 17:11 Dose: 75 mls/hr Latanoprost (Xalatan 0.005% Eye Drops -) 1 drop OD HS [facility] Last Admin: 10/12/18 23:27 Dose: 1 drop Levothyroxine Sodium (Synthroid -) 125 mcg PO DAILY@0700 [facility] Last Admin: 10/13/18 06:11 Dose: Not Given Sodium Bicarbonate (Sodium Bicarbonate -) 650 mg PO BID [facility] Last Admin: 10/12/18 23:27 Dose: 650 mg Tamsulosin HCl (Flomax -) 0.4 mg PO DAILY@0830 [facility] Last Admin: 10/12/18 09:35 Dose: 0.4 mg - Objective Vital Signs: Vital Signs Temperature 98.0 F 10/13/18 08:00 Pulse Rate 60 10/13/18 08:00 Respiratory Rate 20 10/13/18 08:00 Blood Pressure 148/64 10/13/18 08:00 O2 Sat by Pulse Oximetry (%) 97 10/13/18 08:00 Cardiovascular: Yes: S1, S2 Respiratory: Yes: Regular, CTA Bilaterally Gastrointestinal: Yes: Normal Bowel Sounds, Soft Neurological: Yes: Alert, Confusion Labs: CBC, BMP 10/13/18 06:45 Assessment/Plan - Problems (1) Anemia Assessment/Plan: -GI consult noted -Hg 5.4-8.8-9.2-8 -received PRBC transfusion--2 more units -monitor Hg daily -transfuse for Hg <8.0 -Stool OB positive Code(s): D64.9 - ANEMIA, UNSPECIFIED Qualifiers: Anemia type: unspecified type Qualified Code(s): D64.9 - Anemia, unspecified (2) CKD (chronic kidney disease) Assessment/Plan: -Renal on board -BUN/Cr 143.6/2.3 -monitor renal function -avoid nephrotoxic medication Code(s): N18.9 - CHRONIC KIDNEY DISEASE, UNSPECIFIED Qualifiers: Chronic kidney disease stage: on chronic dialysis Qualified Code(s): N18.6 - End stage renal disease; Z99.2 - Dependence on renal dialysis (3) Renal failure (ARF), acute on chronic Assessment/Plan: -Renal on board -BUN/Cr 143.6/2.3 -monitor renal function -avoid nephrotoxic medication -Sodium Bicarb -IVF Code(s): N17.9 - ACUTE KIDNEY FAILURE, UNSPECIFIED; N18.9 - CHRONIC KIDNEY DISEASE, UNSPECIFIED Qualifiers: Acute renal failure type: unspecified Chronic kidney disease stage: on chronic dialysis Qualified Code(s): N17.9 - Acute kidney failure, unspecified ; N18.9 - Chronic kidney disease, unspecified; Z99.2 - Dependence on renal dialysis (4) COPD (chronic obstructive pulmonary disease) Assessment/Plan: -O2 via NC -keep SpO2 >90% Code(s): J44.9 - CHRONIC OBSTRUCTIVE PULMONARY DISEASE, UNSPECIFIED (5) HTN (hypertension) Assessment/Plan: -amlodipine Code(s): I10 - ESSENTIAL (PRIMARY) HYPERTENSION (6) Hypothyroid Assessment/Plan: -Levothyroxine Code(s): E03.9 - HYPOTHYROIDISM, UNSPECIFIED (7) GI bleed Assessment/Plan: -GI consult noted--work up limited due to difficulty getting consent -Hg 5.4---9.2-8 transfuse -received PRBC transfusion-- -monitor Hg daily -transfuse for Hg <8.0 -Stool OB positive Code(s): K92.2 - GASTROINTESTINAL HEMORRHAGE, UNSPECIFIED Qualifiers: GI bleed type/associated pathology: unspecified gastrointestinal hemorrhage type Qualified Code(s): K92.2 - Gastrointestinal hemorrhage, unspecified (8) Lethargy Assessment/Plan: -Follow culture- -IVF -Neuro
[2018-10-13 08:18] LABS: BLOOD UREA NITROGEN 127.3 mg/dL (7-18)
[2018-10-13 08:42] LABS: MAGNESIUM 2.5 mg/dL (1.8-2.4)
[2018-10-13] MEDS: TAMSULOSIN HCL 0.4 MG CAP PO SCH (09:13)
[2018-10-13] MEDS: ESCITALOPRAM OXALATE 10 MG TABLET (FP) PO SCH (09:13)
[2018-10-13] MEDS: amLODIPine BESYLATE 5 MG TABLET (FP) PO SCH (09:13)
[2018-10-13] MEDS: SODIUM BICARBONATE 650 MG TABLET PO SCH ×2 (09:13→23:19)
[2018-10-13] MEDS: FERROUS SO4 325 MG TABLET (FP) PO SCH ×2 (09:13→23:19)
--- NOTE | 2018-10-13 13:16 | PN ---
Progress Note, Physician History of Present Illness: Pt seen and examined at bedside. She is more awake and alert today. She remains confused. - Current Medication List Current Medications: Active Medications Amlodipine Besylate (Norvasc -) 10 mg PO DAILY [facility] Last Admin: 10/13/18 09:13 Dose: 10 mg Escitalopram Oxalate (Lexapro -) 20 mg PO DAILY [facility] Last Admin: 10/13/18 09:13 Dose: 20 mg Ferrous Sulfate (Feosol -) 325 mg PO BID [facility] Last Admin: 10/13/18 09:13 Dose: 325 mg Pantoprazole Sodium 80 mg/ (Sodium Chloride) 100 mls @ 10 mls/hr IVPB Q10H [facility] Last Admin: 10/13/18 12:50 Dose: 10 mls/hr Dextrose/Sodium Chloride (D5-1/2ns -) 1,000 mls @ 75 mls/hr IV ASDIR [facility] Last Admin: 10/12/18 17:11 Dose: 75 mls/hr Latanoprost (Xalatan 0.005% Eye Drops -) 1 drop OD HS [facility] Last Admin: 10/12/18 23:27 Dose: 1 drop Levothyroxine Sodium (Synthroid -) 125 mcg PO DAILY@0700 [facility] Last Admin: 10/13/18 06:11 Dose: Not Given Sodium Bicarbonate (Sodium Bicarbonate -) 650 mg PO BID [facility] Last Admin: 10/13/18 09:13 Dose: 650 mg Tamsulosin HCl (Flomax -) 0.4 mg PO DAILY@0830 [facility] Last Admin: 10/13/18 09:13 Dose: 0.4 mg - Objective Vital Signs: Vital Signs Temperature 98.0 F 10/13/18 08:00 Pulse Rate 60 10/13/18 08:00 Respiratory Rate 20 10/13/18 08:00 Blood Pressure 148/64 10/13/18 08:00 O2 Sat by Pulse Oximetry (%) 97 10/13/18 08:00 Constitutional: Yes: Calm Eyes: Yes: Conjunctiva Clear HENT: Yes: Atraumatic Neck: Yes: Supple Cardiovascular: Yes: S1, S2 Respiratory: Yes: CTA Bilaterally Gastrointestinal: Yes: Soft Genitourinary: Yes: Incontinence Musculoskeletal: Yes: Muscle Weakness Edema: No Neurological: Yes: Confusion Labs: CBC, BMP 10/13/18 06:45 10/13/18 06:45 Problem List - Problems (1) Anemia Code(s): D64.9 - ANEMIA, UNSPECIFIED Qualifiers: Anemia type: unspecified type Qualified Code(s): D64.9 - Anemia, unspecified (2) CKD (chronic kidney disease) Code(s): N18.9 - CHRONIC KIDNEY DISEASE, UNSPECIFIED Qualifiers: Chronic kidney disease stage: on chronic dialysis Qualified Code(s): N18.6 - End stage renal disease; Z99.2 - Dependence on renal dialysis Assessment/Plan Current Medications Generic Name Dose Route Start Last Admin Trade Name Freq PRN Reason Stop Dose Admin Amlodipine Besylate 10 mg 10/11/18 19:30 10/13/18 09:13 Norvasc - PO 10 mg DAILY [facility] Administration Escitalopram Oxalate 20 mg 10/11/18 19:30 10/13/18 09:13 Lexapro - PO 20 mg DAILY [facility] Administration Ferrous Sulfate 325 mg 10/11/18 22:00 10/13/18 09:13 Feosol - PO 325 mg BID [facility] Administration Pantoprazole Sodium 80 mg/ 100 mls @ 10 mls/hr 10/11/18 21:00 10/13/18 12:50 Sodium Chloride IVPB 10 mls/hr Q10H [facility] Administration 8 MG/HR Dextrose/Sodium Chloride 1,000 mls @ 75 mls/hr 10/12/18 16:30 10/12/18 17:11 D5-1/2ns - IV 75 mls/hr ASDIR [facility] Administration Latanoprost 1 drop 10/11/18 22:00 10/12/18 23:27 Xalatan 0.005% Eye Drops - OD 1 drop HS [facility] Administration Levothyroxine Sodium 125 mcg 10/12/18 07:00 10/13/18 06:11 Synthroid - PO Not Given DAILY@0700 [facility] Sodium Bicarbonate 650 mg 10/11/18 22:00 10/13/18 09:13 Sodium Bicarbonate - PO 650 mg BID [facility] Administration Tamsulosin HCl 0.4 mg 10/12/18 08:30 10/13/18 09:13 Flomax - PO 0.4 mg DAILY@0830 [facility] Administration Impression 1. CKD 2. right renal cyst 3. lucero 4. hypothryoid 5. dementia 6. parkinsons 7. HTN 8. gout 9. uremia 10. anemia 11. GI bleed Plan - renal function is improving - GI workup in progress - psych input noted - bun likely elevated from GI bleed - avoid nsaids - avoid nephrotoxins Dr John
[2018-10-13 13:35] LABS: EPI CELLS 3.4 /HPF (0-5/HPF); HYALINE CASTS 2 /lpf (0-8); PH,URINE 5.5 (5.0-8.0); URINE APPEARANCE CLEAR; URINE BILIRUBIN NEGATIVE (NEGATIVE); URINE COLOR YELLOW; URINE GLUCOSE (UA) NEGATIVE (NEGATIVE); URINE KETONE NEGATIVE (NEGATIVE); URINE LEUK ESTERASE TRACE (NEGATIVE); URINE NITRITE NEGATIVE (NEGATIVE); URINE PROTEIN 2+ (NEGATIVE); URINE RBC 1 /hpf (0-4); URINE UROBILINOGEN 0.2 mg/dL (0.2-1.0); URINE WBC 5 /hpf (0-5)
[2018-10-13] MEDS: DEXTROSE 5%-0.45% SALINE 1,000 ML IV SCH (17:43)
--- NOTE | 2018-10-13 18:02 | PN ---
Progress Note (short form) - Note Progress Note: Awaiting goals of care to be clarified / treatment plan per PMD PPI Transfuse as needed Problem List - Problems (1) GI bleed Code(s): K92.2 - GASTROINTESTINAL HEMORRHAGE, UNSPECIFIED Qualifiers: GI bleed type/associated pathology: unspecified gastrointestinal hemorrhage type Qualified Code(s): K92.2 - Gastrointestinal hemorrhage, unspecified
[2018-10-13] MEDS: LATANOPROST 0.005% OPHTH SOLN 2.5ML BOTTLE OD SCH (23:21)
[2018-10-14] MEDS: LEVOTHYROXINE NA 125 MCG TABLET (FP) PO SCH (06:42)
[2018-10-14 07:41] LABS: BASO % 1.6 % (0-2.0); HEMATOCRIT 31.8 % (32.4-45.2); HEMOGLOBIN 10.9 GM/dL (10.7-15.3); LYMPH % 11.6 % (8-40); MCH 29.3 pg (25.7-33.7); MCHC 34.3 g/dl (32.0-36.0); MEAN CELL VOLUME 85.4 fl (80-96); MEAN PLT VOLUME 7.7 fl (7.5-11.1); MONO % 7.3 % (3.8-10.2); NEUT % 70.5 % (42.8-82.8); PLATELET COUNT 394 K/MM3 (134-434); RBC 3.72 M/mm3 (3.60-5.2); RDW 16.9 % (11.6-15.6); WHITE BLOOD COUNT 6.2 K/mm3 (4.0-10.0)
[2018-10-14 08:27] LABS: ALBUMIN 3.1 g/dl (3.4-5.0); CALCIUM 9.3 mg/dL (8.5-10.1); CREATININE 2.2 mg/dL (0.55-1.3); TOT PROT 6.4 g/dl (6.4-8.2)
[2018-10-14 08:48] LABS: BLOOD UREA NITROGEN 113.1 mg/dL (7-18)
[2018-10-14] MEDS: FERROUS SO4 325 MG TABLET (FP) PO SCH ×2 (09:18→21:34)
[2018-10-14] MEDS: amLODIPine BESYLATE 5 MG TABLET (FP) PO SCH (09:18)
[2018-10-14] MEDS: SODIUM BICARBONATE 650 MG TABLET PO SCH ×2 (09:18→21:34)
[2018-10-14] MEDS: ESCITALOPRAM OXALATE 10 MG TABLET (FP) PO SCH (09:18)
[2018-10-14] MEDS: TAMSULOSIN HCL 0.4 MG CAP PO SCH (09:18)
[2018-10-14] MEDS: PANTOPRAZOLE SODIUM 80 MG in SODIUM CHLORIDE 100 ML IVPB SCH ×2 (09:19→18:08)
--- NOTE | 2018-10-14 10:16 | PN ---
Progress Note, Physician - Current Medication List Current Medications: Active Medications Amlodipine Besylate (Norvasc -) 10 mg PO DAILY [facility] Last Admin: 10/14/18 09:18 Dose: 10 mg Escitalopram Oxalate (Lexapro -) 20 mg PO DAILY [facility] Last Admin: 10/14/18 09:18 Dose: 20 mg Ferrous Sulfate (Feosol -) 325 mg PO BID [facility] Last Admin: 10/14/18 09:18 Dose: 325 mg Pantoprazole Sodium 80 mg/ (Sodium Chloride) 100 mls @ 10 mls/hr IVPB Q10H [facility] Last Admin: 10/14/18 09:19 Dose: 10 mls/hr Dextrose/Sodium Chloride (D5-1/2ns -) 1,000 mls @ 75 mls/hr IV ASDIR [facility] Last Admin: 10/13/18 17:43 Dose: 75 mls/hr Latanoprost (Xalatan 0.005% Eye Drops -) 1 drop OD HS [facility] Last Admin: 10/13/18 23:21 Dose: 1 drop Levothyroxine Sodium (Synthroid -) 125 mcg PO DAILY@0700 [facility] Last Admin: 10/14/18 06:42 Dose: 125 mcg Sodium Bicarbonate (Sodium Bicarbonate -) 650 mg PO BID [facility] Last Admin: 10/14/18 09:18 Dose: 650 mg Tamsulosin HCl (Flomax -) 0.4 mg PO DAILY@0830 [facility] Last Admin: 10/14/18 09:18 Dose: 0.4 mg - Objective Vital Signs: Vital Signs Temperature 98.2 F 10/14/18 07:54 Pulse Rate 52 L 10/14/18 07:54 Respiratory Rate 16 10/14/18 08:04 Blood Pressure 147/72 10/14/18 07:54 O2 Sat by Pulse Oximetry (%) 100 10/14/18 08:04 Cardiovascular: Yes: S1, S2 Respiratory: Yes: Regular, CTA Bilaterally Gastrointestinal: Yes: Normal Bowel Sounds, Soft. No: Tenderness Labs: CBC, BMP 10/14/18 06:54 10/14/18 06:54 Assessment/Plan - Problems (1) Anemia Assessment/Plan: -GI consult noted -Hgb Laboratory Tests 10/11/18 10/13/18 10/14/18 05:00 06:45 06:54 Hgb 5.4 L* 8.0 L 10.9 -received PRBC transfusion-- -monitor Hg daily -transfuse for Hg <8.0 -Stool OB positive Code(s): D64.9 - ANEMIA, UNSPECIFIED Qualifiers: Anemia type: unspecified type Qualified Code(s): D64.9 - Anemia, unspecified (2) CKD (chronic kidney disease) Assessment/Plan: -Renal on board -BUN/Cr 143.6/2.3 -monitor renal function -avoid nephrotoxic medication Code(s): N18.9 - CHRONIC KIDNEY DISEASE, UNSPECIFIED Qualifiers: Chronic kidney disease stage: on chronic dialysis Qualified Code(s): N18.6 - End stage renal disease; Z99.2 - Dependence on renal dialysis (3) Renal failure (ARF), acute on chronic Assessment/Plan: -Renal on board -BUN/Cr 143.6/2.3 -monitor renal function -avoid nephrotoxic medication -Sodium Bicarb -IVF Code(s): N17.9 - ACUTE KIDNEY FAILURE, UNSPECIFIED; N18.9 - CHRONIC KIDNEY DISEASE, UNSPECIFIED Qualifiers: Acute renal failure type: unspecified Chronic kidney disease stage: on chronic dialysis Qualified Code(s): N17.9 - Acute kidney failure, unspecified ; N18.9 - Chronic kidney disease, unspecified; Z99.2 - Dependence on renal dialysis (4) COPD (chronic obstructive pulmonary disease) Assessment/Plan: -O2 via NC -keep SpO2 >90% Code(s): J44.9 - CHRONIC OBSTRUCTIVE PULMONARY DISEASE, UNSPECIFIED (5) HTN (hypertension) Assessment/Plan: -amlodipine Code(s): I10 - ESSENTIAL (PRIMARY) HYPERTENSION (6) Hypothyroid Assessment/Plan: -Levothyroxine Code(s): E03.9 - HYPOTHYROIDISM, UNSPECIFIED (7) GI bleed Assessment/Plan: -GI consult noted--work up limited due to difficulty getting consent -Hg 5.4---9.2-8 transfuse -received PRBC transfusion-- -monitor Hg daily -transfuse for Hg <8.0 -Stool OB positive Code(s): K92.2 - GASTROINTESTINAL HEMORRHAGE, UNSPECIFIED Qualifiers: GI bleed type/associated pathology: unspecified gastrointestinal hemorrhage type Qualified Code(s): K92.2 - Gastrointestinal hemorrhage, unspecified (8) Lethargy Assessment/Plan: -Follow culture- -IVF -Neuro
[2018-10-14 13:36] VITALS: BMI 18.8
--- NOTE | 2018-10-14 14:49 | PN ---
Progress Note, Physician History of Present Illness: Pt seen and examined at bedside. She is awake and appears comfortable. - Current Medication List Current Medications: Active Medications Amlodipine Besylate (Norvasc -) 10 mg PO DAILY [facility] Last Admin: 10/14/18 09:18 Dose: 10 mg Escitalopram Oxalate (Lexapro -) 20 mg PO DAILY [facility] Last Admin: 10/14/18 09:18 Dose: 20 mg Ferrous Sulfate (Feosol -) 325 mg PO BID [facility] Last Admin: 10/14/18 09:18 Dose: 325 mg Pantoprazole Sodium 80 mg/ (Sodium Chloride) 100 mls @ 10 mls/hr IVPB Q10H [facility] Last Admin: 10/14/18 09:19 Dose: 10 mls/hr Dextrose/Sodium Chloride (D5-1/2ns -) 1,000 mls @ 75 mls/hr IV ASDIR [facility] Last Admin: 10/13/18 17:43 Dose: 75 mls/hr Latanoprost (Xalatan 0.005% Eye Drops -) 1 drop OD HS [facility] Last Admin: 10/13/18 23:21 Dose: 1 drop Levothyroxine Sodium (Synthroid -) 125 mcg PO DAILY@0700 [facility] Last Admin: 10/14/18 06:42 Dose: 125 mcg Sodium Bicarbonate (Sodium Bicarbonate -) 650 mg PO BID [facility] Last Admin: 10/14/18 09:18 Dose: 650 mg Tamsulosin HCl (Flomax -) 0.4 mg PO DAILY@0830 [facility] Last Admin: 10/14/18 09:18 Dose: 0.4 mg - Objective Vital Signs: Vital Signs Temperature 98.2 F 10/14/18 07:54 Pulse Rate 52 L 10/14/18 07:54 Respiratory Rate 16 10/14/18 08:04 Blood Pressure 147/72 10/14/18 07:54 O2 Sat by Pulse Oximetry (%) 100 10/14/18 08:04 Constitutional: Yes: Calm Eyes: Yes: Conjunctiva Clear HENT: Yes: Atraumatic Neck: Yes: Supple Cardiovascular: Yes: S1, S2 Respiratory: Yes: CTA Bilaterally Gastrointestinal: Yes: Soft Genitourinary: Yes: Incontinence Musculoskeletal: Yes: Muscle Weakness Edema: No Integumentary: Yes: WNL Neurological: Yes: Confusion Psychiatric: Yes: Oriented Labs: CBC, BMP 10/14/18 06:54 10/14/18 06:54 Problem List - Problems (1) Anemia Code(s): D64.9 - ANEMIA, UNSPECIFIED Qualifiers: Anemia type: unspecified type Qualified Code(s): D64.9 - Anemia, unspecified (2) CKD (chronic kidney disease) Code(s): N18.9 - CHRONIC KIDNEY DISEASE, UNSPECIFIED Qualifiers: Chronic kidney disease stage: on chronic dialysis Qualified Code(s): N18.6 - End stage renal disease; Z99.2 - Dependence on renal dialysis Assessment/Plan Current Medications Generic Name Dose Route Start Last Admin Trade Name Freq PRN Reason Stop Dose Admin Amlodipine Besylate 10 mg 10/11/18 19:30 10/14/18 09:18 Norvasc - PO 10 mg DAILY [facility] Administration Escitalopram Oxalate 20 mg 10/11/18 19:30 10/14/18 09:18 Lexapro - PO 20 mg DAILY [facility] Administration Ferrous Sulfate 325 mg 10/11/18 22:00 10/14/18 09:18 Feosol - PO 325 mg BID [facility] Administration Pantoprazole Sodium 80 mg/ 100 mls @ 10 mls/hr 10/11/18 21:00 10/14/18 09:19 Sodium Chloride IVPB 10 mls/hr Q10H [facility] Administration 8 MG/HR Dextrose/Sodium Chloride 1,000 mls @ 75 mls/hr 10/12/18 16:30 10/13/18 17:43 D5-1/2ns - IV 75 mls/hr ASDIR [facility] Administration Latanoprost 1 drop 10/11/18 22:00 10/13/18 23:21 Xalatan 0.005% Eye Drops - OD 1 drop HS [facility] Administration Levothyroxine Sodium 125 mcg 10/12/18 07:00 10/14/18 06:42 Synthroid - PO 125 mcg DAILY@0700 [facility] Administration Sodium Bicarbonate 650 mg 10/11/18 22:00 10/14/18 09:18 Sodium Bicarbonate - PO 650 mg BID [facility] Administration Tamsulosin HCl 0.4 mg 10/12/18 08:30 10/14/18 09:18 Flomax - PO 0.4 mg DAILY@0830 [facility] Administration Impression 1. CKD 2. right renal cyst 3. lucero 4. hypothryoid 5. dementia 6. parkinsons 7. HTN 8. gout 9. uremia 10. anemia 11. 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
[2018-10-14] MEDS: DEXTROSE 5%-0.45% SALINE 1,000 ML IV SCH (16:30)
[2018-10-14] MEDS ORDERED: PT OWN MED DRAWER 7, Y5N ONE (21:16)
[2018-10-14] MEDS: LATANOPROST 0.005% OPHTH SOLN 2.5ML BOTTLE OD SCH (21:41)
[2018-10-15] MEDS ORDERED: PT OWN MED DRAWER 7, Y5N ONE ×3 (00:27→22:42)
[2018-10-15] MEDS: PANTOPRAZOLE SODIUM 80 MG in SODIUM CHLORIDE 100 ML IVPB SCH ×3 (00:43→14:55)
[2018-10-15] MEDS: amLODIPine BESYLATE 5 MG TABLET (FP) PO SCH ×2 (06:03→09:19)
[2018-10-15] MEDS: LEVOTHYROXINE NA 125 MCG TABLET (FP) PO SCH (06:04)
[2018-10-15] MEDS: ESCITALOPRAM OXALATE 10 MG TABLET (FP) PO SCH (09:13)
[2018-10-15] MEDS: FERROUS SO4 325 MG TABLET (FP) PO SCH ×2 (09:13→22:45)
[2018-10-15] MEDS: TAMSULOSIN HCL 0.4 MG CAP PO SCH (09:13)
[2018-10-15] MEDS: SODIUM BICARBONATE 650 MG TABLET PO SCH ×2 (09:13→22:45)
[2018-10-15] MEDS: DEXTROSE 5%-0.45% SALINE 1,000 ML IV SCH (09:15)
--- NOTE | 2018-10-15 09:58 | PN ---
Progress Note, Physician - Current Medication List Current Medications: Active Medications Amlodipine Besylate (Norvasc -) 10 mg PO DAILY [facility] Last Admin: 10/15/18 09:19 Dose: Not Given Escitalopram Oxalate (Lexapro -) 20 mg PO DAILY [facility] Last Admin: 10/15/18 09:13 Dose: 20 mg Ferrous Sulfate (Feosol -) 325 mg PO BID [facility] Last Admin: 10/15/18 09:13 Dose: 325 mg Pantoprazole Sodium 80 mg/ (Sodium Chloride) 100 mls @ 10 mls/hr IVPB Q10H [facility] Last Admin: 10/15/18 09:13 Dose: 10 mls/hr Dextrose/Sodium Chloride (D5-1/2ns -) 1,000 mls @ 75 mls/hr IV ASDIR [facility] Last Admin: 10/15/18 09:15 Dose: 75 mls/hr Latanoprost (Xalatan 0.005% Eye Drops -) 1 drop OD HS [facility] Last Admin: 10/14/18 21:41 Dose: 1 drop Levothyroxine Sodium (Synthroid -) 125 mcg PO DAILY@0700 [facility] Last Admin: 10/15/18 06:04 Dose: 125 mcg Sodium Bicarbonate (Sodium Bicarbonate -) 650 mg PO BID [facility] Last Admin: 10/15/18 09:13 Dose: 650 mg Tamsulosin HCl (Flomax -) 0.4 mg PO DAILY@0830 [facility] Last Admin: 10/15/18 09:13 Dose: 0.4 mg - Objective Vital Signs: Vital Signs Temperature 98.4 F 10/15/18 08:36 Pulse Rate 67 10/15/18 08:36 Respiratory Rate 18 10/15/18 08:36 Blood Pressure 186/84 H 10/15/18 08:36 O2 Sat by Pulse Oximetry (%) 100 10/14/18 22:00 Cardiovascular: Yes: S1, S2 Respiratory: Yes: Regular, CTA Bilaterally Gastrointestinal: Yes: Normal Bowel Sounds, Soft. No: Tenderness Labs: CBC, BMP 10/14/18 06:54 10/14/18 06:54 Assessment/Plan - Problems (1) Anemia Assessment/Plan: -GI consult noted -Hgb Laboratory Tests 10/11/18 10/13/18 10/14/18 05:00 06:45 06:54 Hgb 5.4 L* 8.0 L 10.9 -received PRBC transfusion-- -monitor Hg daily -transfuse for Hg <8.0 -Stool OB positive Code(s): D64.9 - ANEMIA, UNSPECIFIED Qualifiers: Anemia type: unspecified type Qualified Code(s): D64.9 - Anemia, unspecified (2) CKD (chronic kidney disease) Assessment/Plan: -Renal on board -BUN/Cr 143.6/2.3 -monitor renal function -avoid nephrotoxic medication Code(s): N18.9 - CHRONIC KIDNEY DISEASE, UNSPECIFIED Qualifiers: Chronic kidney disease stage: on chronic dialysis Qualified Code(s): N18.6 - End stage renal disease; Z99.2 - Dependence on renal dialysis (3) Renal failure (ARF), acute on chronic Assessment/Plan: -Renal on board -BUN/Cr 143.6/2.3 -monitor renal function -avoid nephrotoxic medication -Sodium Bicarb -IVF Code(s): N17.9 - ACUTE KIDNEY FAILURE, UNSPECIFIED; N18.9 - CHRONIC KIDNEY DISEASE, UNSPECIFIED Qualifiers: Acute renal failure type: unspecified Chronic kidney disease stage: on chronic dialysis Qualified Code(s): N17.9 - Acute kidney failure, unspecified ; N18.9 - Chronic kidney disease, unspecified; Z99.2 - Dependence on renal dialysis (4) COPD (chronic obstructive pulmonary disease) Assessment/Plan: -O2 via NC -keep SpO2 >90% Code(s): J44.9 - CHRONIC OBSTRUCTIVE PULMONARY DISEASE, UNSPECIFIED (5) HTN (hypertension) Assessment/Plan: -amlodipine Code(s): I10 - ESSENTIAL (PRIMARY) HYPERTENSION (6) Hypothyroid Assessment/Plan: -Levothyroxine Code(s): E03.9 - HYPOTHYROIDISM, UNSPECIFIED (7) GI bleed Assessment/Plan: -GI consult noted--work up limited due to difficulty getting consent -Hg 5.4---9.2-8 transfuse -received PRBC transfusion-- -monitor Hg daily -transfuse for Hg <8.0 -Stool OB positive Code(s): K92.2 - GASTROINTESTINAL HEMORRHAGE, UNSPECIFIED Qualifiers: GI bleed type/associated pathology: unspecified gastrointestinal hemorrhage type Qualified Code(s): K92.2 - Gastrointestinal hemorrhage, unspecified (8) Lethargy Assessment/Plan: -Follow culture- -IVF -Neuro
[2018-10-15] MEDS ORDERED: DEXTROSE 5%-0.45% SALINE 1,000 ML IV SCH (13:01)
--- NOTE | 2018-10-15 13:01 | PN ---
Progress Note, Physician History of Present Illness: Pt seen and examined at bedside. She is tolerating diet. She denies shortness of breath. - Current Medication List Current Medications: Active Medications Amlodipine Besylate (Norvasc -) 10 mg PO DAILY [facility] Last Admin: 10/15/18 09:19 Dose: Not Given Escitalopram Oxalate (Lexapro -) 20 mg PO DAILY [facility] Last Admin: 10/15/18 09:13 Dose: 20 mg Ferrous Sulfate (Feosol -) 325 mg PO BID [facility] Last Admin: 10/15/18 09:13 Dose: 325 mg Pantoprazole Sodium 80 mg/ (Sodium Chloride) 100 mls @ 10 mls/hr IVPB Q10H [facility] Last Admin: 10/15/18 09:13 Dose: 10 mls/hr Dextrose/Sodium Chloride (D5-1/2ns -) 1,000 mls @ 75 mls/hr IV ASDIR [facility] Last Admin: 10/15/18 09:15 Dose: 75 mls/hr Latanoprost (Xalatan 0.005% Eye Drops -) 1 drop OD HS [facility] Last Admin: 10/14/18 21:41 Dose: 1 drop Levothyroxine Sodium (Synthroid -) 125 mcg PO DAILY@0700 [facility] Last Admin: 10/15/18 06:04 Dose: 125 mcg Sodium Bicarbonate (Sodium Bicarbonate -) 650 mg PO BID [facility] Last Admin: 10/15/18 09:13 Dose: 650 mg Tamsulosin HCl (Flomax -) 0.4 mg PO DAILY@0830 [facility] Last Admin: 10/15/18 09:13 Dose: 0.4 mg - Objective Vital Signs: Vital Signs Temperature 98.4 F 10/15/18 08:36 Pulse Rate 67 10/15/18 08:36 Respiratory Rate 18 10/15/18 09:00 Blood Pressure 186/84 H 10/15/18 08:36 O2 Sat by Pulse Oximetry (%) 100 10/15/18 09:00 Constitutional: Yes: Calm Eyes: Yes: Conjunctiva Clear HENT: Yes: Atraumatic Neck: Yes: Supple Cardiovascular: Yes: S1, S2 Respiratory: Yes: CTA Bilaterally Gastrointestinal: Yes: Soft Genitourinary: Yes: Incontinence Musculoskeletal: Yes: WNL Edema: No Neurological: Yes: Confusion Labs: CBC, BMP 10/14/18 06:54 10/14/18 06:54 Problem List - Problems (1) Anemia Code(s): D64.9 - ANEMIA, UNSPECIFIED Qualifiers: Anemia type: unspecified type Qualified Code(s): D64.9 - Anemia, unspecified (2) CKD (chronic kidney disease) Code(s): N18.9 - CHRONIC KIDNEY DISEASE, UNSPECIFIED Qualifiers: Chronic kidney disease stage: on chronic dialysis Qualified Code(s): N18.6 - End stage renal disease; Z99.2 - Dependence on renal dialysis Assessment/Plan Current Medications Generic Name Dose Route Start Last Admin Trade Name Freq PRN Reason Stop Dose Admin Amlodipine Besylate 10 mg 10/11/18 19:30 10/15/18 09:19 Norvasc - PO Not Given DAILY [facility] Escitalopram Oxalate 20 mg 10/11/18 19:30 10/15/18 09:13 Lexapro - PO 20 mg DAILY [facility] Administration Ferrous Sulfate 325 mg 10/11/18 22:00 10/15/18 09:13 Feosol - PO 325 mg BID [facility] Administration Pantoprazole Sodium 80 mg/ 100 mls @ 10 mls/hr 10/11/18 21:00 10/15/18 09:13 Sodium Chloride IVPB 10 mls/hr Q10H [facility] Administration 8 MG/HR Dextrose/Sodium Chloride 1,000 mls @ 75 mls/hr 10/12/18 16:30 10/15/18 09:15 D5-1/2ns - IV 75 mls/hr ASDIR [facility] Administration Latanoprost 1 drop 10/11/18 22:00 10/14/18 21:41 Xalatan 0.005% Eye Drops - OD 1 drop HS [facility] Administration Levothyroxine Sodium 125 mcg 10/12/18 07:00 10/15/18 06:04 Synthroid - PO 125 mcg DAILY@0700 [facility] Administration Sodium Bicarbonate 650 mg 10/11/18 22:00 10/15/18 09:13 Sodium Bicarbonate - PO 650 mg BID [facility] Administration Tamsulosin HCl 0.4 mg 10/12/18 08:30 10/15/18 09:13 Flomax - PO 0.4 mg DAILY@0830 [facility] Administration Impression 1. CKD 2. right renal cyst 3. lucero 4. hypothryoid 5. dementia 6. parkinsons 7. HTN 8. gout 9. uremia 10. anemia 11. GI bleed Plan - pt tolerating diet - decrease rate of fluids - bun improving - bun elevated out of proportion to medical chemist likely from GI bleed - GI workup in progress - avoid nsaids - avoid nephrotoxins Dr John
[2018-10-15] MEDS: LATANOPROST 0.005% OPHTH SOLN 2.5ML BOTTLE OD SCH (22:43)
[2018-10-16] MEDS ORDERED: PT OWN MED DRAWER 7, Y5N ONE ×3 (00:16→21:12)
[2018-10-16] MEDS: PANTOPRAZOLE SODIUM 80 MG in SODIUM CHLORIDE 100 ML IVPB SCH ×4 (00:42→22:39)
[2018-10-16] MEDS: LEVOTHYROXINE NA 125 MCG TABLET (FP) PO SCH (06:20)
[2018-10-16 08:36] LABS: EOS % 6.5 % (0-4.5); HEMATOCRIT 29.9 % (32.4-45.2); HEMOGLOBIN 10.1 GM/dL (10.7-15.3); LYMPH % 11.6 % (8-40); MCH 29.5 pg (25.7-33.7); MCHC 33.9 g/dl (32.0-36.0); MEAN CELL VOLUME 87.1 fl (80-96); MEAN PLT VOLUME 7.5 fl (7.5-11.1); MONO % 8.9 % (3.8-10.2); PLATELET COUNT 360 K/MM3 (134-434); RBC 3.44 M/mm3 (3.60-5.2); WHITE BLOOD COUNT 6.3 K/mm3 (4.0-10.0)
[2018-10-16] MEDS: SODIUM BICARBONATE 650 MG TABLET PO SCH ×2 (09:29→21:20)
[2018-10-16] MEDS: ESCITALOPRAM OXALATE 10 MG TABLET (FP) PO SCH (09:29)
[2018-10-16] MEDS: FERROUS SO4 325 MG TABLET (FP) PO SCH ×2 (09:29→21:20)
[2018-10-16] MEDS: TAMSULOSIN HCL 0.4 MG CAP PO SCH (09:29)
[2018-10-16] MEDS: amLODIPine BESYLATE 5 MG TABLET (FP) PO SCH (09:29)
[2018-10-16 09:44] LABS: ALBUMIN 2.9 g/dl (3.4-5.0); BILIRUBIN,TOTAL 0.8 mg/dL (0.2-1); BLOOD UREA NITROGEN 89.8 mg/dL (7-18); CALCIUM 9.2 mg/dL (8.5-10.1); CREATININE 1.9 mg/dL (0.55-1.3); POTASSIUM 4.3 mmol/L (3.5-5.1); TOT PROT 6.3 g/dl (6.4-8.2)
--- NOTE | 2018-10-16 10:46 | PN ---
Progress Note, Physician - Current Medication List Current Medications: Active Medications Amlodipine Besylate (Norvasc -) 10 mg PO DAILY [facility] Last Admin: 10/16/18 09:29 Dose: 10 mg Escitalopram Oxalate (Lexapro -) 20 mg PO DAILY [facility] Last Admin: 10/16/18 09:29 Dose: 20 mg Ferrous Sulfate (Feosol -) 325 mg PO BID [facility] Last Admin: 10/16/18 09:29 Dose: 325 mg Pantoprazole Sodium 80 mg/ (Sodium Chloride) 100 mls @ 10 mls/hr IVPB Q10H [facility] Last Admin: 10/16/18 00:42 Dose: 10 mls/hr Dextrose/Sodium Chloride (D5-1/2ns -) 1,000 mls @ 60 mls/hr IV ASDIR [facility] Last Admin: 10/15/18 13:33 Dose: 60 mls/hr Latanoprost (Xalatan 0.005% Eye Drops -) 1 drop OD HS [facility] Last Admin: 10/15/18 22:43 Dose: 1 drop Levothyroxine Sodium (Synthroid -) 125 mcg PO DAILY@0700 [facility] Last Admin: 10/16/18 06:20 Dose: 125 mcg Sodium Bicarbonate (Sodium Bicarbonate -) 650 mg PO BID [facility] Last Admin: 10/16/18 09:29 Dose: 650 mg Tamsulosin HCl (Flomax -) 0.4 mg PO DAILY@0830 [facility] Last Admin: 10/16/18 09:29 Dose: 0.4 mg - Objective Vital Signs: Vital Signs Temperature 97.8 F 10/16/18 06:00 Pulse Rate 73 10/16/18 06:00 Respiratory Rate 18 10/16/18 06:00 Blood Pressure 170/86 10/16/18 06:00 O2 Sat by Pulse Oximetry (%) 95 10/15/18 21:00 Cardiovascular: Yes: S1, S2 Respiratory: Yes: Regular, CTA Bilaterally Gastrointestinal: Yes: Normal Bowel Sounds, Soft. No: Tenderness Edema: No Labs: CBC, BMP 10/16/18 08:00 10/16/18 08:59 Assessment/Plan - Problems (1) Anemia Assessment/Plan: -GI consult noted -Hgb satble at 10 -received PRBC transfusion-- -monitor Hg daily -transfuse for Hg <8.0 -Stool OB positive Code(s): D64.9 - ANEMIA, UNSPECIFIED Qualifiers: Anemia type: unspecified type Qualified Code(s): D64.9 - Anemia, unspecified (2) CKD (chronic kidney disease) Assessment/Plan: -Renal on board -BUN/Cr 143.6/2.3 -monitor renal function -avoid nephrotoxic medication Code(s): N18.9 - CHRONIC KIDNEY DISEASE, UNSPECIFIED Qualifiers: Chronic kidney disease stage: on chronic dialysis Qualified Code(s): N18.6 - End stage renal disease; Z99.2 - Dependence on renal dialysis (3) Renal failure (ARF), acute on chronic Assessment/Plan: -Improving -Renal on board -BUN/Cr 143.6/2.3--89/1.9 -monitor renal function -avoid nephrotoxic medication -Sodium Bicarb -IVF Code(s): N17.9 - ACUTE KIDNEY FAILURE, UNSPECIFIED; N18.9 - CHRONIC KIDNEY DISEASE, UNSPECIFIED Qualifiers: Acute renal failure type: unspecified Chronic kidney disease stage: on chronic dialysis Qualified Code(s): N17.9 - Acute kidney failure, unspecified ; N18.9 - Chronic kidney disease, unspecified; Z99.2 - Dependence on renal dialysis (4) COPD (chronic obstructive pulmonary disease) Assessment/Plan: -O2 via NC -keep SpO2 >90% Code(s): J44.9 - CHRONIC OBSTRUCTIVE PULMONARY DISEASE, UNSPECIFIED (5) HTN (hypertension) Assessment/Plan: -amlodipine Code(s): I10 - ESSENTIAL (PRIMARY) HYPERTENSION (6) Hypothyroid Assessment/Plan: -Levothyroxine Code(s): E03.9 - HYPOTHYROIDISM, UNSPECIFIED (7) GI bleed Assessment/Plan: -GI consult noted--work up limited due to difficulty getting consent -Hg 5.4---9.2-8 transfuse -received PRBC transfusion-- -monitor Hg daily -transfuse for Hg <8.0 -Stool OB positive Code(s): K92.2 - GASTROINTESTINAL HEMORRHAGE, UNSPECIFIED Qualifiers: GI bleed type/associated pathology: unspecified gastrointestinal hemorrhage type Qualified Code(s): K92.2 - Gastrointestinal hemorrhage, unspecified (8) Lethargy Assessment/Plan: -Improved -IVF -Neuro
--- NOTE | 2018-10-16 12:27 | PN ---
Progress Note, Physician History of Present Illness: Pt seen and examined at bedside. She appears comfortable. She is tolerating diet. - Current Medication List Current Medications: Active Medications Amlodipine Besylate (Norvasc -) 10 mg PO DAILY [facility] Last Admin: 10/16/18 09:29 Dose: 10 mg Escitalopram Oxalate (Lexapro -) 20 mg PO DAILY [facility] Last Admin: 10/16/18 09:29 Dose: 20 mg Ferrous Sulfate (Feosol -) 325 mg PO BID [facility] Last Admin: 10/16/18 09:29 Dose: 325 mg Pantoprazole Sodium 80 mg/ (Sodium Chloride) 100 mls @ 10 mls/hr IVPB Q10H [facility] Last Admin: 10/16/18 12:03 Dose: Not Given Dextrose/Sodium Chloride (D5-1/2ns -) 1,000 mls @ 60 mls/hr IV ASDIR [facility] Last Admin: 10/15/18 13:33 Dose: 60 mls/hr Latanoprost (Xalatan 0.005% Eye Drops -) 1 drop OD HS [facility] Last Admin: 10/15/18 22:43 Dose: 1 drop Levothyroxine Sodium (Synthroid -) 125 mcg PO DAILY@0700 [facility] Last Admin: 10/16/18 06:20 Dose: 125 mcg Sodium Bicarbonate (Sodium Bicarbonate -) 650 mg PO BID [facility] Last Admin: 10/16/18 09:29 Dose: 650 mg Tamsulosin HCl (Flomax -) 0.4 mg PO DAILY@0830 [facility] Last Admin: 10/16/18 09:29 Dose: 0.4 mg - Objective Vital Signs: Vital Signs Temperature 97.8 F 10/16/18 06:00 Pulse Rate 73 10/16/18 06:00 Respiratory Rate 18 10/16/18 06:00 Blood Pressure 170/86 10/16/18 06:00 O2 Sat by Pulse Oximetry (%) 95 10/15/18 21:00 Constitutional: Yes: Calm Eyes: Yes: Conjunctiva Clear HENT: Yes: Atraumatic Neck: Yes: Supple Cardiovascular: Yes: S1, S2 Respiratory: Yes: On Nasal O2 Gastrointestinal: Yes: Soft Genitourinary: Yes: Incontinence Musculoskeletal: Yes: Muscle Weakness Edema: No Integumentary: Yes: WNL Neurological: Yes: Confusion Labs: CBC, BMP 10/16/18 08:00 10/16/18 08:59 Problem List - Problems (1) Anemia Code(s): D64.9 - ANEMIA, UNSPECIFIED Qualifiers: Anemia type: unspecified type Qualified Code(s): D64.9 - Anemia, unspecified (2) CKD (chronic kidney disease) Code(s): N18.9 - CHRONIC KIDNEY DISEASE, UNSPECIFIED Qualifiers: Chronic kidney disease stage: on chronic dialysis Qualified Code(s): N18.6 - End stage renal disease; Z99.2 - Dependence on renal dialysis Assessment/Plan Current Medications Generic Name Dose Route Start Last Admin Trade Name Freq PRN Reason Stop Dose Admin Amlodipine Besylate 10 mg 10/11/18 19:30 10/16/18 09:29 Norvasc - PO 10 mg DAILY [facility] Administration Escitalopram Oxalate 20 mg 10/11/18 19:30 10/16/18 09:29 Lexapro - PO 20 mg DAILY [facility] Administration Ferrous Sulfate 325 mg 10/11/18 22:00 10/16/18 09:29 Feosol - PO 325 mg BID [facility] Administration Pantoprazole Sodium 80 mg/ 100 mls @ 10 mls/hr 10/11/18 21:00 10/16/18 12:03 Sodium Chloride IVPB Not Given Q10H [facility]A 8 MG/HR Dextrose/Sodium Chloride 1,000 mls @ 60 mls/hr 10/15/18 13:01 10/15/18 13:33 D5-1/2ns - IV 60 mls/hr ASDIR [facility] Administration Latanoprost 1 drop 10/11/18 22:00 10/15/18 22:43 Xalatan 0.005% Eye Drops - OD 1 drop HS [facility] Administration Levothyroxine Sodium 125 mcg 10/12/18 07:00 10/16/18 06:20 Synthroid - PO 125 mcg DAILY@0700 [facility] Administration Sodium Bicarbonate 650 mg 10/11/18 22:00 10/16/18 09:29 Sodium Bicarbonate - PO 650 mg BID [facility] Administration Tamsulosin HCl 0.4 mg 10/12/18 08:30 10/16/18 09:29 Flomax - PO 0.4 mg DAILY@0830 [facility] Administration Impression 1. CKD 2. right renal cyst 3. lucero 4. hypothryoid 5. dementia 6. parkinsons 7. HTN 8. gout 9. uremia 10. anemia 11. GI bleed 12. esbl uti Plan - will decrease fluids further - will keep d51/2 as glucose is low - repeat labs in am - renal function is improving - gi workup - avoid nsaids - avoid nephrotoxins Dr John
[2018-10-16] MEDS: DEXTROSE 5%-0.45% SALINE 1,000 ML IV SCH (12:41)
[2018-10-16] MEDS: LATANOPROST 0.005% OPHTH SOLN 2.5ML BOTTLE OD SCH (21:20)
[2018-10-17 06:17] LABS: BLOOD UREA NITROGEN 88.9 mg/dL (7-18); CALCIUM 8.8 mg/dL (8.5-10.1); POTASSIUM 4.2 mmol/L (3.5-5.1)
[2018-10-17] MEDS: LEVOTHYROXINE NA 125 MCG TABLET (FP) PO SCH (06:59)
[2018-10-17] MEDS: PANTOPRAZOLE SODIUM 80 MG in SODIUM CHLORIDE 100 ML IVPB SCH ×4 (07:00→23:02)
--- NOTE | 2018-10-17 07:51 | PN ---
Progress Note, Physician - Current Medication List Current Medications: Active Medications Amlodipine Besylate (Norvasc -) 10 mg PO DAILY [facility] Last Admin: 10/16/18 09:29 Dose: 10 mg Escitalopram Oxalate (Lexapro -) 20 mg PO DAILY [facility] Last Admin: 10/16/18 09:29 Dose: 20 mg Ferrous Sulfate (Feosol -) 325 mg PO BID [facility] Last Admin: 10/16/18 21:20 Dose: 325 mg Pantoprazole Sodium 80 mg/ (Sodium Chloride) 100 mls @ 10 mls/hr IVPB Q10H [facility] Last Admin: 10/17/18 07:00 Dose: Not Given Dextrose/Sodium Chloride (D5-1/2ns -) 1,000 mls @ 40 mls/hr IV ASDIR [facility] Last Admin: 10/16/18 12:41 Dose: 40 mls/hr Latanoprost (Xalatan 0.005% Eye Drops -) 1 drop OD HS [facility] Last Admin: 10/16/18 21:20 Dose: 1 drop Levothyroxine Sodium (Synthroid -) 125 mcg PO DAILY@0700 [facility] Last Admin: 10/17/18 06:59 Dose: 125 mcg Sodium Bicarbonate (Sodium Bicarbonate -) 650 mg PO BID [facility] Last Admin: 10/16/18 21:20 Dose: 650 mg Tamsulosin HCl (Flomax -) 0.4 mg PO DAILY@0830 [facility] Last Admin: 10/16/18 09:29 Dose: 0.4 mg - Objective Vital Signs: Vital Signs Temperature 97.8 F 10/17/18 02:00 Pulse Rate 58 L 10/17/18 02:00 Respiratory Rate 18 10/17/18 02:00 Blood Pressure 157/76 10/17/18 02:00 O2 Sat by Pulse Oximetry (%) 95 10/16/18 21:00 Cardiovascular: Yes: Regular Rate and Rhythm Respiratory: Yes: Regular, CTA Bilaterally Gastrointestinal: Yes: Normal Bowel Sounds, Soft Labs: CBC, BMP 10/16/18 08:00 10/17/18 05:20 Assessment/Plan - Problems (1) Anemia Assessment/Plan: -GI consult noted -Hgb satble at 10 -received PRBC transfusion-- -monitor Hg daily -transfuse for Hg <8.0 -Stool OB positive Code(s): D64.9 - ANEMIA, UNSPECIFIED Qualifiers: Anemia type: unspecified type Qualified Code(s): D64.9 - Anemia, unspecified (2) CKD (chronic kidney disease) Assessment/Plan: -Renal on board -BUN/Cr 143.6/2.3 -monitor renal function -avoid nephrotoxic medication Code(s): N18.9 - CHRONIC KIDNEY DISEASE, UNSPECIFIED Qualifiers: Chronic kidney disease stage: on chronic dialysis Qualified Code(s): N18.6 - End stage renal disease; Z99.2 - Dependence on renal dialysis (3) Renal failure (ARF), acute on chronic Assessment/Plan: -Improving -Renal on board -BUN/Cr 143.6/2.3--89/1.9 -monitor renal function -avoid nephrotoxic medication -Sodium Bicarb -IVF Code(s): N17.9 - ACUTE KIDNEY FAILURE, UNSPECIFIED; N18.9 - CHRONIC KIDNEY DISEASE, UNSPECIFIED Qualifiers: Acute renal failure type: unspecified Chronic kidney disease stage: on chronic dialysis Qualified Code(s): N17.9 - Acute kidney failure, unspecified ; N18.9 - Chronic kidney disease, unspecified; Z99.2 - Dependence on renal dialysis (4) COPD (chronic obstructive pulmonary disease) Assessment/Plan: -O2 via NC -keep SpO2 >90% Code(s): J44.9 - CHRONIC OBSTRUCTIVE PULMONARY DISEASE, UNSPECIFIED (5) HTN (hypertension) Assessment/Plan: -amlodipine Code(s): I10 - ESSENTIAL (PRIMARY) HYPERTENSION (6) Hypothyroid Assessment/Plan: -Levothyroxine Code(s): E03.9 - HYPOTHYROIDISM, UNSPECIFIED (7) GI bleed Assessment/Plan: -GI consult noted--work up limited due to difficulty getting consent -Hg 5.4---9.2-8 transfuse -received PRBC transfusion-- -monitor Hg daily -transfuse for Hg <8.0 -Stool OB positive Code(s): K92.2 - GASTROINTESTINAL HEMORRHAGE, UNSPECIFIED Qualifiers: GI bleed type/associated pathology: unspecified gastrointestinal hemorrhage type Qualified Code(s): K92.2 - Gastrointestinal hemorrhage, unspecified (8) Lethargy Assessment/Plan: -Improved -IVF -Neuro
[2018-10-17] MEDS: FERROUS SO4 325 MG TABLET (FP) PO SCH ×2 (09:08→23:02)
[2018-10-17] MEDS: TAMSULOSIN HCL 0.4 MG CAP PO SCH (09:08)
[2018-10-17] MEDS: amLODIPine BESYLATE 5 MG TABLET (FP) PO SCH (09:09)
[2018-10-17] MEDS: ESCITALOPRAM OXALATE 10 MG TABLET (FP) PO SCH (09:09)
[2018-10-17] MEDS: SODIUM BICARBONATE 650 MG TABLET PO SCH ×2 (09:09→23:02)
[2018-10-17] MEDS: DEXTROSE 5%-0.45% SALINE 1,000 ML IV SCH ×2 (10:34→18:20)
--- NOTE | 2018-10-17 10:50 | PN ---
Progress Note, Physician History of Present Illness: Pt seen and examined at bedside. She is awake and appears comfortable. - Current Medication List Current Medications: Active Medications Amlodipine Besylate (Norvasc -) 10 mg PO DAILY [facility] Last Admin: 10/17/18 09:09 Dose: 10 mg Escitalopram Oxalate (Lexapro -) 20 mg PO DAILY [facility] Last Admin: 10/17/18 09:09 Dose: 20 mg Ferrous Sulfate (Feosol -) 325 mg PO BID [facility] Last Admin: 10/17/18 09:08 Dose: 325 mg Pantoprazole Sodium 80 mg/ (Sodium Chloride) 100 mls @ 10 mls/hr IVPB Q10H [facility] Last Admin: 10/17/18 10:35 Dose: 10 mls/hr Dextrose/Sodium Chloride (D5-1/2ns -) 1,000 mls @ 40 mls/hr IV ASDIR [facility] Last Admin: 10/17/18 10:34 Dose: 40 mls/hr Latanoprost (Xalatan 0.005% Eye Drops -) 1 drop OD HS [facility] Last Admin: 10/16/18 21:20 Dose: 1 drop Levothyroxine Sodium (Synthroid -) 125 mcg PO DAILY@0700 [facility] Last Admin: 10/17/18 06:59 Dose: 125 mcg Sodium Bicarbonate (Sodium Bicarbonate -) 650 mg PO BID [facility] Last Admin: 10/17/18 09:09 Dose: 650 mg Tamsulosin HCl (Flomax -) 0.4 mg PO DAILY@0830 [facility] Last Admin: 10/17/18 09:08 Dose: 0.4 mg - Objective Vital Signs: Vital Signs Temperature 97.6 F 10/17/18 06:00 Pulse Rate 60 10/17/18 09:11 Respiratory Rate 22 H 10/17/18 09:11 Blood Pressure 158/77 10/17/18 09:11 O2 Sat by Pulse Oximetry (%) 95 10/16/18 21:00 Constitutional: Yes: Calm Eyes: Yes: Conjunctiva Clear HENT: Yes: Atraumatic Cardiovascular: Yes: S1, S2 Respiratory: Yes: CTA Bilaterally Gastrointestinal: Yes: Soft Genitourinary: Yes: WNL Musculoskeletal: Yes: WNL Extremities: Yes: WNL Edema: No Neurological: Yes: Confusion Labs: CBC, BMP 10/16/18 08:00 08/26/19 05:20 Problem List - Problems (1) Anemia Code(s): D64.9 - ANEMIA, UNSPECIFIED Qualifiers: Anemia type: unspecified type Qualified Code(s): D64.9 - Anemia, unspecified (2) CKD (chronic kidney disease) Code(s): N18.9 - CHRONIC KIDNEY DISEASE, UNSPECIFIED Qualifiers: Chronic kidney disease stage: on chronic dialysis Qualified Code(s): N18.6 - End stage renal disease; Z99.2 - Dependence on renal dialysis Assessment/Plan Current Medications Generic Name Dose Route Start Last Admin Trade Name Freq PRN Reason Stop Dose Admin Amlodipine Besylate 10 mg 10/11/18 19:30 10/17/18 09:09 Norvasc - PO 10 mg DAILY LINNEA Administration Escitalopram Oxalate 20 mg 10/11/18 19:30 10/17/18 09:09 Lexapro - PO 20 mg DAILY LINNEA Administration Ferrous Sulfate 325 mg 10/11/18 22:00 10/17/18 09:08 Feosol - PO 325 mg BID LINNEA Administration Pantoprazole Sodium 80 mg/ 100 mls @ 10 mls/hr 10/11/18 21:00 10/17/18 10:35 Sodium Chloride IVPB 10 mls/hr Q10H LINNEA Administration 8 MG/HR Dextrose/Sodium Chloride 1,000 mls @ 40 mls/hr 10/16/18 12:29 10/17/18 10:34 D5-1/2ns - IV 40 mls/hr ASDIR [facility]NEA Administration Latanoprost 1 drop 10/11/18 22:00 10/16/18 21:20 Xalatan 0.005% Eye Drops - OD 1 drop HS LINNEA Administration Levothyroxine Sodium 125 mcg 10/12/18 07:00 10/17/18 06:59 Synthroid - PO 125 mcg DAILY@0700 LINNEA Administration Sodium Bicarbonate 650 mg 10/11/18 22:00 10/17/18 09:09 Sodium Bicarbonate - PO 650 mg BID LINNEA Administration Tamsulosin HCl 0.4 mg 10/12/18 08:30 10/17/18 09:08 Flomax - PO 0.4 mg DAILY@0830 LINNEA Administration Impression 1. CKD 2. right renal cyst 3. lucero 4. hypothryoid 5. dementia 6. parkinsons 7. HTN 8. gout 9. uremia 10. anemia 11. GI bleed 12. esbl uti Plan - renal function close to baseline - elevated bun secondary to GI bleed - GI workup in progress, limited by consent issues - gi workup - avoid nsaids - avoid nephrotoxins Dr John
[2018-10-17] MEDS ORDERED: PT OWN MED DRAWER 7, Y5N ONE (19:46)
[2018-10-17] MEDS: LATANOPROST 0.005% OPHTH SOLN 2.5ML BOTTLE OD SCH (23:02)
[2018-10-18] MEDS: PANTOPRAZOLE SODIUM 80 MG in SODIUM CHLORIDE 100 ML IVPB SCH ×2 (04:02→06:02)
[2018-10-18] MEDS: LEVOTHYROXINE NA 125 MCG TABLET (FP) PO SCH (06:01)
[2018-10-18] MEDS ORDERED: PT OWN MED DRAWER 7, Y5N ONE (06:02)
[2018-10-18] MEDS: TAMSULOSIN HCL 0.4 MG CAP PO SCH (08:48)
[2018-10-18] MEDS: ESCITALOPRAM OXALATE 10 MG TABLET (FP) PO SCH (09:03)
[2018-10-18] MEDS: amLODIPine BESYLATE 5 MG TABLET (FP) PO SCH (09:03)
[2018-10-18] MEDS: FERROUS SO4 325 MG TABLET (FP) PO SCH (09:03)
[2018-10-18] MEDS: SODIUM BICARBONATE 650 MG TABLET PO SCH (09:03)
--- NOTE | 2018-10-18 09:36 | DS ---
Physical Examination Vital Signs: Vital Signs Temperature 98.0 F 10/18/18 05:00 Pulse Rate 62 10/18/18 05:00 Respiratory Rate 17 10/18/18 05:00 Blood Pressure 151/62 10/18/18 05:00 O2 Sat by Pulse Oximetry (%) 98 10/17/18 21:00 Cardiovascular: Yes: Regular Rate and Rhythm Respiratory: Yes: Regular, CTA Bilaterally Gastrointestinal: Yes: Normal Bowel Sounds, Soft Edema: No Labs: CBC, BMP 10/16/18 08:00 10/17/18 05:20 Discharge Summary Reason For Visit: ANEMIA,END STAGE RENAL FAILURE ON DIALYSIS Current Active Problems Anemia (Acute) CKD (chronic kidney disease) (Acute) Renal failure (ARF), acute on chronic (Acute) Hospital Course: - Problems (1) Anemia Assessment/Plan: -GI consult noted -Hgb satble at 10 -received PRBC transfusion-- -monitor Hg daily -transfuse for Hg <8.0 -Stool OB positive Code(s): D64.9 - ANEMIA, UNSPECIFIED Qualifiers: Anemia type: unspecified type Qualified Code(s): D64.9 - Anemia, unspecified (2) CKD (chronic kidney disease) Assessment/Plan: -Renal on board -BUN/Cr 143.6/2.3 -monitor renal function -avoid nephrotoxic medication Code(s): N18.9 - CHRONIC KIDNEY DISEASE, UNSPECIFIED Qualifiers: Chronic kidney disease stage: on chronic dialysis Qualified Code(s): N18.6 - End stage renal disease; Z99.2 - Dependence on renal dialysis (3) Renal failure (ARF), acute on chronic Assessment/Plan: -Improving -Renal on board -BUN/Cr 143.6/2.3--89/1.9 -monitor renal function -avoid nephrotoxic medication -Sodium Bicarb -IVF as needed --labs to be monitored at nm Code(s): N17.9 - ACUTE KIDNEY FAILURE, UNSPECIFIED; N18.9 - CHRONIC KIDNEY DISEASE, UNSPECIFIED Qualifiers: Acute renal failure type: unspecified Chronic kidney disease stage: on chronic dialysis Qualified Code(s): N17.9 - Acute kidney failure, unspecified ; N18.9 - Chronic kidney disease, unspecified; Z99.2 - Dependence on renal dialysis (4) COPD (chronic obstructive pulmonary disease) Assessment/Plan: -O2 via NC -keep SpO2 >90% Code(s): J44.9 - CHRONIC OBSTRUCTIVE PULMONARY DISEASE, UNSPECIFIED (5) HTN (hypertension) Assessment/Plan: -amlodipine Code(s): I10 - ESSENTIAL (PRIMARY) HYPERTENSION (6) Hypothyroid Assessment/Plan: -Levothyroxine Code(s): E03.9 - HYPOTHYROIDISM, UNSPECIFIED (7) GI bleed Assessment/Plan: -GI consult noted--work up limited due to difficulty getting consent -Hg 5.4---9.2-stable -received PRBC transfusion-- -monitor Hg daily -transfuse for Hg <8.0 -Stool OB positive Code(s): K92.2 - GASTROINTESTINAL HEMORRHAGE, UNSPECIFIED Qualifiers: GI bleed type/associated pathology: unspecified gastrointestinal hemorrhage type Qualified Code(s): K92.2 - Gastrointestinal hemorrhage, unspecified (8) Lethargy Assessment/Plan: -Improved -Neuro noted Condition: Stable - Instructions Diet, Activity, Other Instructions: Monitor bmp twice a week cbc q week Disposition: [facility]ION FACILITY - Home Medications Comprehensive Discharge Medication List: Ambulatory Orders Amlodipine Besylate [Norvasc -] 10 mg PO DAILY 05/27/18 Escitalopram Oxalate [Lexapro -] 20 mg PO DAILY 05/27/18 Latanoprost 0.005% Eye Drops [Xalatan 0.005% Eye Drops -] 1 drop OP HS 05/27/18 Polyethylene Glycol 3350 [Miralax 119 gm Btl -] 17 gm PO DAILY 05/27/18 Ferrous Sulfate [Feosol] 325 mg PO BID ud 06/04/18 Pantoprazole Sodium [Protonix -] 40 mg PO BID tablet.ec 06/04/18 Levothyroxine [Synthroid -] 125 mcg PO DAILY@0700 #30 tablet MDD 1 07/29/18 Tamsulosin HCl [Flomax -] 0.4 mg PO DAILY@0830 #30 cap.er.24h MDD 1 07/29/18 Acetaminophen [Tylenol .Regular Strength -] 650 mg PO Q6H PRN tablet 09/09/18 Sodium Bicarbonate - 650 mg PO BID tablet 10/18/18
[2018-10-18] MEDS ORDERED: PANTOPRAZOLE 40 MG TABLET (FP) PO SCH (10:00)
[2018-10-18 11:54] VITALS: BP 154/61; PULSE 61; TEMP 97.5
== END 2018-10-18 11:42 | DRG 377 ==
LOC: JER 01:15 → JERBED 05:22 → J4W 10-12 02:19 → J4S 10-15 18:53
PROVIDERS: ADMIT Family Medicine; ATTEND Family Medicine
PROC: 30233N1 Transfusion of Nonautologous Red Blood Cells into Peripheral Vein, Percutaneous Approach (ICD-10-PCS; principal; 2018-10-11)
DX: K92.2 Gastrointestinal hemorrhage, unspecified (principal); N18.6 End stage renal disease; Z68.1 Body mass index [BMI] 19.9 or less, adult; F03.91 Unspecified dementia, unspecified severity, with behavioral disturbance; N17.9 Acute kidney failure, unspecified; R64 Cachexia; N39.0 Urinary tract infection, site not specified; I12.0 Hypertensive chronic kidney disease with stage 5 chronic kidney disease or end stage renal disease; J44.9 Chronic obstructive pulmonary disease, unspecified; E03.9 Hypothyroidism, unspecified; G20 Parkinson's disease; D64.9 Anemia, unspecified; R62.7 Adult failure to thrive; F03.90 Unspecified dementia, unspecified severity, without behavioral disturbance, psychotic disturbance, mood disturbance, and anxiety; E78.5 Hyperlipidemia, unspecified; K21.9 Gastro-esophageal reflux disease without esophagitis; M19.90 Unspecified osteoarthritis, unspecified site; N28.1 Cyst of kidney, acquired; M10.9 Gout, unspecified; B96.20 Unspecified Escherichia coli [E. coli] as the cause of diseases classified elsewhere
CPT/HCPCS: 36415; 36430; 36511; 71045-TC-FY; 80048; 80053; 81003; 82272; 82728; 83540; 83550; 83735; 84443; 84484; 85025; 86850; 86900; 86901; 86922; 87086; 87186; 93005; 93010; 99284-25; P9038; P9058

== ENCOUNTER 2018-10-26 00:24 | Inpatient (IN) | payer OTHER | END 2018-11-01 12:48 | LOC: JER 00:24 → JERBED 06:35 → J4S 22:33 ==

== ENCOUNTER 2018-11-21 21:35 | Inpatient (IN) | payer OTHER, BC ==
--- NOTE | 2018-11-21 21:53 | PDOC ---
History of Present Illness - General Chief Complaint: Bleeding from Anus Stated Complaint: ABNORMAL LABS Time Seen by Provider: 11/21/18 21:52 - History of Present Illness Initial Comments: 11/21/18 22:55 78 y/o F pmhx of parkinson's dementia, ckd, copd, hld, hypothyroidism recurrent GI bleeds and CAD sent in for Hb of 5.3 from [facility] was recently admitted on 10/26/2018 for hgb of 5.5 per chart review, has refused endoscopy/colonoscopy on multiple occasions received transfusion of prbc at that hospital stay Pt states at this visit that she is tired. She is alert and oriented to persons and place. willing to let me physically examine her but will not respond to questioning Past History - Past Medical History Allergies/Adverse Reactions: Allergies Allergy/AdvReac Type Severity Reaction Status Date / Time No Known Allergies Allergy Verified 09/06/18 15:15 Home Medications: Ambulatory Orders Amlodipine Besylate [Norvasc -] 10 mg PO DAILY 05/27/18 Escitalopram Oxalate [Lexapro -] 20 mg PO DAILY 05/27/18 Latanoprost 0.005% Eye Drops [Xalatan 0.005% Eye Drops -] 1 drop OP HS 05/27/18 Polyethylene Glycol 3350 [Miralax 119 gm Btl -] 17 gm PO DAILY 05/27/18 Ferrous Sulfate [Feosol] 325 mg PO BID ud 06/04/18 Pantoprazole Sodium [Protonix -] 40 mg PO BID tablet.ec 06/04/18 Levothyroxine [Synthroid -] 125 mcg PO DAILY@0700 #30 tablet MDD 1 07/29/18 Tamsulosin HCl [Flomax -] 0.4 mg PO DAILY@0830 #30 cap.er.24h MDD 1 07/29/18 Acetaminophen [Tylenol .Regular Strength -] 650 mg PO Q6H PRN tablet 09/09/18 Sodium Bicarbonate - 650 mg PO BID tablet 10/18/18 Albuterol 0.083% Nebulizer Latoya [Ventolin 0.083% Nebulizer Soln -] 1 amp NEB Q6H PRN amp 11/01/18 Ranitidine [Zantac -] 150 mg PO BID tablet 11/01/18 Ondansetron [Zofran -] 4 mg PO QID 11/22/18 Anemia: Yes Asthma: No Cancer: No Cardiac Disorders: No CVA: No COPD: Yes CHF: No Dementia: Yes Diabetes: No GI Disorders: No Disorders: Yes (incont) HTN: Yes Hypercholesterolemia: Yes Liver Disease: No Seizures: No Thyroid Disease: Yes (hypothyroidsm) - Surgical History Abdominal Surgery: No Appendectomy: Yes Cardiac Surgery: No Cholecystectomy: No Lung Surgery: No Neurologic Surgery: No Orthopedic Surgery: No - Immunization History Immunization Up to Date: Yes - Psycho Social/Smoking Cessation Hx Smoking History: Unknown if ever smoked Have you smoked in the past 12 months: No Number of Cigarettes Smoked Daily: 5 If you are a former smoker, when did you quit?: 5 years ago Hx Alcohol Use: No Drug/Substance Use Hx: No Substance Use Type: None Hx Substance Use Treatment: No Review of Systems - Review of Systems Able to Perform ROS?: No Comments:: 11/21/18 23:09 pt uncooperative. also limited by dementia *Physical Exam - Physical Exam Comments: 11/21/18 23:09 PE: GENERAL: somnolent but arousable. thin appearing HEAD: No signs of trauma, normocephalic, atraumatic EYES: PERRLA, EOMI, sclera anicteric, conjunctiva clear ENT: Auricles normal inspection, hearing grossly normal, nares patent, NECK: Normal ROM, supple, no lymphadenopathy, JVD, or masses LUNGS: No distress, speaks full sentences when roused, clear to auscultation bilaterally HEART: Regular rate and rhythm, normal S1 and S2, no murmurs, rubs or gallops, peripheral pulses normal and equal bilaterally. ABDOMEN: Soft, epigastric tenderness, normoactive bowel sounds. No guarding, No masses EXTREMITIES : Normal inspection, Normal range of motion, no edema. No clubbing or cyanosis NEUROLOGICAL: oriented to person and place SKIN: Warm, Dry, normal turgor, no rashes or lesions noted REctal exam. dark brown stool retrieved no bright blood per rectum 11/22/18 00:29 ED Treatment Course - LABORATORY CBC & Chemistry Diagram: 11/25/18 06:48 11/25/18 06:48 Medical Decision Making - Medical Decision Making 11/21/18 23:12 78 y/o F pmhx of parkinson's dementia, ckd, copd, hld, hypothyroidism recurrent GI bleeds and CAD sent in for Hb of 5.3 from [facility] Labs/Imaging/Meds EKG, cbc, cmp, pt/inr, ptt, type and screen, lipase, troponin, 11/21/18 23:14 Stool for occult blood: positive Labs pending, signed out ot Dr. Kay 11/22/18 00:18 11/22/18 00:30 Discharge - Discharge Information Problems reviewed: Yes Clinical Impression/Diagnosis: GIB (gastrointestinal bleeding) Qualifiers: GI bleed type/associated pathology: unspecified gastrointestinal hemorrhage type Qualified Code(s): K92.2 - Gastrointestinal hemorrhage, unspecified Condition: Guarded - Follow up/Referral - Patient Discharge Instructions - Post Discharge Activity
--- NOTE | 2018-11-21 21:59 | PDOC ---
Attending Attestation - Resident Resident Name: Michelle Brito - ED Attending Attestation I have performed the following: I have examined & evaluated the patient, The case was reviewed & discussed with the resident, I agree w/resident's findings & plan - HPI HPI: 11/22/18 00:11 see resident hpi - Physicial Exam PE: 11/22/18 00:12 agree with resident exam - Medical Decision Making 11/22/18 00:12 78-year-old female sent for symptomatic anemia with history of GI bleeds Stool is guaiac positive consistent with given history Plan for labs, transfusion when necessary and admission for further evaluation
--- NOTE | 2018-11-22 00:25 | PDOC ---
*Physical Exam - Vital Signs Last Vital Signs Temp Pulse Resp BP Pulse Ox 97.6 F 73 18 132/72 95 11/21/18 21:53 11/21/18 21:53 11/21/18 21:53 11/21/18 21:53 11/21/18 21:53 ED Treatment Course - LABORATORY CBC & Chemistry Diagram: 11/22/18 00:10 11/22/18 00:10 - ADDITIONAL ORDERS Additional order review: Laboratory Results 11/21/18 22:40 Stool Occult Blood Positive Medical Decision Making - Medical Decision Making 11/22/18 00:24 Pt signed out to me by Dr. Saba. 78F with stool occult positive, hgb of 5.5 concerning for GIB. Vitals stable but pt cannot give any history. Exam notable for epigastric tenderness. Will obtain CTAP. Will admit for further evaluation. 11/22/18 01:10 Per prior note, pt had to have 2 physicians sign for consent for emergency bloodwork. Will also have 2 physicians sign for emergency transfusion as pt has hgb of 4.3. Unable to reach daughter x 2, per [place] records #. Emergency consent signed by ER physicians. Transfusion ordered. 11/22/18 02:51 Pt endorsed to RANDY Hernandez. Discharge - Discharge Information Problems reviewed: Yes Clinical Impression/Diagnosis: GIB (gastrointestinal bleeding) Qualifiers: GI bleed type/associated pathology: unspecified gastrointestinal hemorrhage type Qualified Code(s): K92.2 - Gastrointestinal hemorrhage, unspecified Condition: Guarded - Admission Yes - Follow up/Referral - Patient Discharge Instructions - Post Discharge Activity
[2018-11-22 00:33] LABS: BASO % 0.5 % (0-2.0); EOS % 0.1 % (0-4.5); HEMATOCRIT 13.7 % (32.4-45.2); LYMPH % 8.8 % (8-40); MCH 27.9 pg (25.7-33.7); MCHC 31.6 g/dl (32.0-36.0); MEAN CELL VOLUME 88.1 fl (80-96); MEAN PLT VOLUME 8.4 fl (7.5-11.1); MONO % 3.9 % (3.8-10.2); NEUT % 86.7 % (42.8-82.8); PLATELET COUNT 333 K/MM3 (134-434); RBC 1.55 M/mm3 (3.60-5.2); RDW 16.2 % (11.6-15.6)
[2018-11-22 00:42] LABS: HEMOGLOBIN 4.3 GM/dL (10.7-15.3)
[2018-11-22 00:45] LABS: INR 1.02 (0.83-1.09)
[2018-11-22 01:27] LABS: ALBUMIN 2.8 g/dl (3.4-5.0); BILIRUBIN,TOTAL 0.3 mg/dL (0.2-1); CALCIUM 8.6 mg/dL (8.5-10.1); CREATININE 2.4 mg/dL (0.55-1.3); POTASSIUM 4.8 mmol/L (3.5-5.1); TOT PROT 5.9 g/dl (6.4-8.2)
[2018-11-22 01:39] LABS: BLOOD UREA NITROGEN 116.2 mg/dL (7-18)
--- NOTE | 2018-11-22 02:55 | HP ---
Admitting History and Physical - Primary Care Physician PCP: Emmanuel Cabrera - Admission Chief Complaint: Low Hemoglobin History of Present Illness: This is a 77 y/o woman from [facility] with a PMHx of CKD, Anemia, GI Bleed, Dementia, COPD, Parkinson's, Failure to Thrive Recent admission 10/26-11/01 for GI Bleed, Anemia. Sent in for low blood count. Patient has Dementia unable to obtain HPI. 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: Dementia, Parkinson's Cardiovascular: Yes: HTN, Hyperlipdemia Pulmonary: Yes: COPD Gastrointestinal: Yes: GERD, GI Bleed Renal/: Yes: Renal Inusuff Heme/Onc: Yes: Anemia Psych: Yes: Depression Musculoskeletal: Yes: Osteoarthritis Rheumatology: Yes: Other (arthritis) Endocrine: Yes: Hypothyroidism - Past Surgical History Past Surgical History: Yes: Appendectomy, Tonsillectomy - Smoking History Smoking history: Unknown if ever smoked Have you smoked in the past 12 months: No Aproximately how many cigarettes per day: 5 If you are a former smoker, when did you quit?: 5 years ago - Alcohol/Substance Use Hx Alcohol Use: No History of Substance Use: reports: None - Social History ADL: Support Services Occupation: retired History of Recent Travel: No Home Medications - Allergies Allergies/Adverse Reactions: Allergies Allergy/AdvReac Type Severity Reaction Status Date / Time No Known Allergies Allergy Verified 09/06/18 15:15 - Home Medications Home Medications: Ambulatory Orders Amlodipine Besylate [Norvasc -] 10 mg PO DAILY 05/27/18 Escitalopram Oxalate [Lexapro -] 20 mg PO DAILY 05/27/18 Latanoprost 0.005% Eye Drops [Xalatan 0.005% Eye Drops -] 1 drop OP HS 05/27/18 Polyethylene Glycol 3350 [Miralax 119 gm Btl -] 17 gm PO DAILY 05/27/18 Ferrous Sulfate [Feosol] 325 mg PO BID ud 06/04/18 Pantoprazole Sodium [Protonix -] 40 mg PO BID tablet.ec 06/04/18 Levothyroxine [Synthroid -] 125 mcg PO DAILY@0700 #30 tablet MDD 1 07/29/18 Tamsulosin HCl [Flomax -] 0.4 mg PO DAILY@0830 #30 cap.er.24h MDD 1 07/29/18 Acetaminophen [Tylenol .Regular Strength -] 650 mg PO Q6H PRN tablet 09/09/18 Sodium Bicarbonate - 650 mg PO BID tablet 10/18/18 Albuterol 0.083% Nebulizer Latoya [Ventolin 0.083% Nebulizer Soln -] 1 amp NEB Q6H PRN amp 11/01/18 Ranitidine [Zantac -] 150 mg PO BID tablet 11/01/18 Family Medical History Family History: Unable to Obtain Review of Systems Unable to obtain ROS, reason: Dementia Physical Examination Vital Signs: Vital Signs Temperature 97.6 F 11/21/18 21:53 Pulse Rate 73 11/21/18 21:53 Respiratory Rate 18 11/21/18 21:53 Blood Pressure 132/72 11/21/18 21:53 O2 Sat by Pulse Oximetry (%) 95 11/21/18 21:53 Constitutional: Yes: No Distress, Calm, Pallor, Thin Eyes: Yes: Conjunctiva Clear (pale), PERRL HENT: Yes: WNL, Atraumatic, Normocephalic Neck: Yes: WNL, Supple, Trachea Midline Cardiovascular: Yes: WNL, Regular Rate and Rhythm, S1, S2 Respiratory: Yes: WNL, Regular, CTA Bilaterally, On Nasal O2 Gastrointestinal: Yes: Soft, Hypoactive Bowel Sounds ...Rectal Exam: Yes: Guaiac Positive Renal/: Yes: Incontinence Breast(s): Yes: WNL Musculoskeletal: Yes: WNL Extremities: Yes: WNL Edema: No Peripheral Pulses WNL: Yes Neurological: Yes: Confusion ...Motor Strength: WNL Psychiatric: Yes: WNL, Alert, Oriented Labs: CBC, BMP 11/22/18 00:10 11/22/18 00:10 Laboratory Results - last 24 hr 11/21/18 11/22/18 11/22/18 22:40 00:10 00:10 WBC 12.0 H RBC 1.55 L Hgb 4.3 L* Hct 13.7 L MCV 88.1 MCH 27.9 MCHC 31.6 L RDW 16.2 H Plt Count 333 D MPV 8.4 D Absolute Neuts (auto) 10.4 H Neutrophils % 86.7 H D Lymphocytes % 8.8 D Monocytes % 3.9 Eosinophils % 0.1 D Basophils % 0.5 Nucleated RBC % 0 PT with INR INR PTT (Actin FS) Sodium 138 Potassium 4.8 Chloride 105 Carbon Dioxide 21 Anion Gap 13 BUN 116.2 H* Creatinine 2.4 H Est GFR (CKD-EPI)AfAm 21.99 Est GFR (CKD-EPI)NonAf 18.97 Random Glucose 109 H Calcium 8.6 Total Bilirubin 0.3 AST 16 ALT 13 Alkaline Phosphatase 73 Troponin I Total Protein 5.9 L Albumin 2.8 L Lipase Stool Occult Blood Positive Blood Type Antibody Screen Crossmatch 11/22/18 11/22/18 11/22/18 00:10 00:10 00:10 WBC RBC Hgb Hct MCV MCH MCHC RDW Plt Count MPV Absolute Neuts (auto) Neutrophils % Lymphocytes % Monocytes % Eosinophils % Basophils % Nucleated RBC % PT with INR 12.00 INR 1.02 PTT (Actin FS) 31.1 Sodium Potassium Chloride Carbon Dioxide Anion Gap BUN Creatinine Est GFR (CKD-EPI)AfAm Est GFR (CKD-EPI)NonAf Random Glucose Calcium Total Bilirubin AST ALT Alkaline Phosphatase Troponin I Total Protein Albumin Lipase Stool Occult Blood Blood Type O NEGATIVE Antibody Screen Negative Crossmatch See Detail 11/22/18 00:10 WBC RBC Hgb Hct MCV MCH MCHC RDW Plt Count MPV Absolute Neuts (auto) Neutrophils % Lymphocytes % Monocytes % Eosinophils % Basophils % Nucleated RBC % PT with INR INR PTT (Actin FS) Sodium Potassium Chloride Carbon Dioxide Anion Gap BUN Creatinine Est GFR (CKD-EPI)AfAm Est GFR (CKD-EPI)NonAf Random Glucose Calcium Total Bilirubin AST ALT Alkaline Phosphatase Troponin I 0.02 Total Protein Albumin Lipase 61 L Stool Occult Blood Blood Type Antibody Screen Crossmatch Intake & Output 11/19/18 11/20/18 11/21/18 11/22/18 23:59 23:59 23:59 23:59 Weight 49.895 kg Imaging - Results Chest X-ray: Pending EKG: Image Reviewed Problem List - Problems (1) GIB (gastrointestinal bleeding) Assessment/Plan: Hgb 4.3 Stool Occult positive Appreciate GI consult PPI Monitor CBC, BMP Team will need to discuss goals of care with patient's family Code(s): K92.2 - GASTROINTESTINAL HEMORRHAGE, UNSPECIFIED Qualifiers: GI bleed type/associated pathology: unspecified gastrointestinal hemorrhage type Qualified Code(s): K92.2 - Gastrointestinal hemorrhage, unspecified (2) Anemia Assessment/Plan: Hgb 4.3 PRBC x2- pending Serial CBCs Cardiac monitoring Code(s): D64.9 - ANEMIA, UNSPECIFIED Qualifiers: Anemia type: unspecified type Qualified Code(s): D64.9 - Anemia, unspecified (3) CHF (congestive heart failure) Assessment/Plan: stable Chest Xray-pending Code(s): I50.9 - HEART FAILURE, UNSPECIFIED (4) CKD (chronic kidney disease) Assessment/Plan: Will continue to monitor and treat with interventions accordingly Consider Nephrology consult if condition worsens Monitor BMP Avoid Nephrotoxic drugs Code(s): N18.9 - CHRONIC KIDNEY DISEASE, UNSPECIFIED Qualifiers: Chronic kidney disease stage: on chronic dialysis Qualified Code(s): N18.6 - End stage renal disease; Z99.2 - Dependence on renal dialysis (5) COPD (chronic obstructive pulmonary disease) Assessment/Plan: stable Duonebs O2 Chest Xray-pending Consider Pulm consult if condition worsens Code(s): J44.9 - CHRONIC OBSTRUCTIVE PULMONARY DISEASE, UNSPECIFIED (6) HTN (hypertension) Assessment/Plan: stable Monitor BP Will hold PO med for now Code(s): I10 - ESSENTIAL (PRIMARY) HYPERTENSION (7) Hypothyroid Assessment/Plan: Will give Levothyroxine IV secondary to GIB will hold PO meds for now Code(s): E03.9 - HYPOTHYROIDISM, UNSPECIFIED Qualifiers: (8) Failure to thrive Code(s): UOC1198 - (9) MDD (major depressive disorder) Assessment/Plan: Will hold meds for now secondary to GIB, reassess in am Code(s): F32.9 - MAJOR DEPRESSIVE DISORDER, SINGLE EPISODE, UNSPECIFIED Assessment/Plan This is a 77 y/o woman from [facility] with a PMHx of CKD, Anemia, GI Bleed, Dementia, COPD, Parkinson's, Failure to Thrive. Admitted to Telemetry for GI Bleed, Symptomatic Anemia for further evaluation of their emergent condition. Plan: See Problem List FEN Replete lytes prn NPO DVT ppx SCDs Hold AC secodnary to GIB Dispo: Requires Inpatient Care Visit type - Emergency Visit Emergency Visit: Yes ED Registration Date: 11/21/18 Care time: The patient presented to the Emergency Department on the above date and was hospitalized for further evaluation of their emergent condition. - New Patient This patient is new to me today: Yes Date on this admission: 11/22/18 - Critical Care Critical Care patient: No
[2018-11-22] MEDS ORDERED: LEVOTHYROXINE SODIUM 100 MCG VIAL IVPUSH SCH (10:00)
--- NOTE | 2018-11-22 10:04 | EKG ---
Test Reason : Blood Pressure : / mmHG Vent. Rate : 073 BPM Atrial Rate : 073 BPM P-R Int : 186 ms QRS Dur : 118 ms QT Int : 448 ms P-R-T Axes : 048 026 229 degrees QTc Int : 493 ms SINUS RHYTHM WITH PREMATURE ATRIAL COMPLEXES LEFT VENTRICULAR HYPERTROPHY WITH QRS WIDENING AND REPOLARIZATION ABNORMALITY PROLONGED QT ABNORMAL ECG WHEN COMPARED WITH ECG OF 26-OCT-2018 02:28, NO SIGNIFICANT CHANGE WAS FOUND Confirmed by MD TA, MOJGAN ([id number]) on 11/22/2018 10:04:06 AM Referred By: Confirmed By:MOJGAN CHAPPELL MD
[2018-11-22] MEDS: PANTOPRAZOLE SODIUM 40 MG VIAL IVPUSH SCH ×2 (10:39→21:26)
[2018-11-22] MEDS: LEVOTHYROXINE SODIUM 100 MCG VIAL IVPUSH SCH (10:39)
--- NOTE | 2018-11-22 16:07 | PN ---
Progress Note, Physician Chief Complaint: Anemia CKD History of Present Illness: Previous notes and events reviewed awake and alert NAD denies chest pain or SOB - Current Medication List Current Medications: Active Medications Levothyroxine Sodium (Synthroid Injection -) 94 mcg IVPUSH DAILY [facility] Last Admin: 11/22/18 10:39 Dose: 94 mcg Pantoprazole Sodium (Protonix Iv) 40 mg IVPUSH BID [facility] Last Admin: 11/22/18 10:39 Dose: 40 mg - Objective Vital Signs: Vital Signs Temperature 97.9 F 11/22/18 14:34 Pulse Rate 73 11/22/18 14:34 Respiratory Rate 18 11/22/18 14:34 Blood Pressure 159/85 11/22/18 14:34 O2 Sat by Pulse Oximetry (%) 100 11/22/18 14:34 Constitutional: Yes: No Distress, Calm Eyes: Yes: Conjunctiva Clear HENT: Yes: Atraumatic Cardiovascular: Yes: Regular Rate and Rhythm Respiratory: Yes: Regular, CTA Bilaterally Gastrointestinal: Yes: Normal Bowel Sounds, Soft Genitourinary: Yes: Incontinence Musculoskeletal: Yes: Muscle Weakness Extremities: Yes: WNL Edema: No Neurological: Yes: Alert, Confusion Psychiatric: Yes: Alert, Oriented Labs: CBC, BMP 11/22/18 00:10 11/22/18 00:10 INR, PTT INR 1.02 (0.83-1.09) 11/22/18 00:10 Problem List - Problems (1) GIB (gastrointestinal bleeding) Assessment/Plan: -GI consult -Hg 4.3 -s/p 2U PRBC transfusion -Stool OB positive -Pantoprazole -Clear liquid Code(s): K92.2 - GASTROINTESTINAL HEMORRHAGE, UNSPECIFIED Qualifiers: GI bleed type/associated pathology: unspecified gastrointestinal hemorrhage type Qualified Code(s): K92.2 - Gastrointestinal hemorrhage, unspecified (2) Anemia Assessment/Plan: -GI consult -Hg 4.3 -s/p 2U PRBC transfusion -Stool OB positive -Pantoprazole -Clear liquid Code(s): D64.9 - ANEMIA, UNSPECIFIED Qualifiers: Anemia type: unspecified type Qualified Code(s): D64.9 - Anemia, unspecified (3) CHF (congestive heart failure) Assessment/Plan: -1L fluid restriction -daily weights Code(s): I50.9 - HEART FAILURE, UNSPECIFIED (4) CKD (chronic kidney disease) Assessment/Plan: -Renal consult -BUN/Cr 116.2/2.4 -monitor renal function daily for downtrend Code(s): N18.9 - CHRONIC KIDNEY DISEASE, UNSPECIFIED Qualifiers: Chronic kidney disease stage: on chronic dialysis Qualified Code(s): N18.6 - End stage renal disease; Z99.2 - Dependence on renal dialysis (5) HTN (hypertension) Assessment/Plan: -monitor BP -Lopressor 5mg IVP prn for HR >110bpm Code(s): I10 - ESSENTIAL (PRIMARY) HYPERTENSION (6) Hypothyroid Assessment/Plan: -Levothyroxine Code(s): E03.9 - HYPOTHYROIDISM, UNSPECIFIED Assessment/Plan see problem list
--- NOTE | 2018-11-22 16:58 | CONSULT ---
Consult Consult Specialty:: Nephrology Reason for Consultation:: LUCERO - History of Present Illness Chief Complaint: sent in for anemia History of Present Illness: Pt is a 78 year old female with pmhx of ckd, gi bleed and dementia who was sent in for anemia. She is getting a blood transfusion. Pt is confused. She has had repeat hospitalizations for anemia. 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: Dementia, Parkinson's Cardio/Vascular: Yes: HTN, Hyperlipdemia Pulmonary: Yes: COPD Gastrointestinal: Yes: GERD, GI Bleed Renal/: Yes: Renal Inusuff Psych: Yes: Depression Musculoskeletal: Yes: Osteoarthritis Rheumatology: Yes: Other (arthritis) Endocrine: Yes: Hypothyroidism - Past Surgical History Past Surgical History: Yes: Appendectomy, Tonsillectomy - Alcohol/Substance Use Hx Alcohol Use: No History of Substance Use: reports: None - Smoking History Smoking history: Unknown if ever smoked Have you smoked in the past 12 months: No Aproximately how many cigarettes per day: 5 If you are a former smoker, when did you quit?: 5 years ago - Social History Usual Living Arrangement: Long Term ADL: Support Services Occupation: retired History of Recent Travel: No Home Medications - Allergies Allergies/Adverse Reactions: Allergies Allergy/AdvReac Type Severity Reaction Status Date / Time No Known Allergies Allergy Verified 09/06/18 15:15 - Home Medications Home Medications: Ambulatory Orders Amlodipine Besylate [Norvasc -] 10 mg PO DAILY 05/27/18 Escitalopram Oxalate [Lexapro -] 20 mg PO DAILY 05/27/18 Latanoprost 0.005% Eye Drops [Xalatan 0.005% Eye Drops -] 1 drop OP HS 05/27/18 Polyethylene Glycol 3350 [Miralax 119 gm Btl -] 17 gm PO DAILY 05/27/18 Ferrous Sulfate [Feosol] 325 mg PO BID ud 06/04/18 Pantoprazole Sodium [Protonix -] 40 mg PO BID tablet.ec 06/04/18 Levothyroxine [Synthroid -] 125 mcg PO DAILY@0700 #30 tablet MDD 1 07/29/18 Tamsulosin HCl [Flomax -] 0.4 mg PO DAILY@0830 #30 cap.er.24h MDD 1 07/29/18 Acetaminophen [Tylenol .Regular Strength -] 650 mg PO Q6H PRN tablet 09/09/18 Sodium Bicarbonate - 650 mg PO BID tablet 10/18/18 Albuterol 0.083% Nebulizer Latoya [Ventolin 0.083% Nebulizer Soln -] 1 amp NEB Q6H PRN amp 11/01/18 Ranitidine [Zantac -] 150 mg PO BID tablet 11/01/18 Ondansetron [Zofran -] 4 mg PO QID 11/22/18 Family Medical History Family History: Unable to Obtain Review of Systems Unable to obtain ROS, reason: confused Physical Exam Vital Signs: Vital Signs Temperature 97.9 F 11/22/18 14:34 Pulse Rate 73 11/22/18 14:34 Respiratory Rate 18 11/22/18 14:34 Blood Pressure 159/85 11/22/18 14:34 O2 Sat by Pulse Oximetry (%) 100 11/22/18 14:34 Constitutional: Yes: Calm Eyes: Yes: Conjunctiva Clear HENT: Yes: Atraumatic Cardiovascular: Yes: S1, S2 Respiratory: Yes: CTA Bilaterally Gastrointestinal: Yes: Soft Renal/: Yes: Incontinence Musculoskeletal: Yes: Muscle Weakness Edema: No Neurological: Yes: Confusion Labs: CBC, BMP 11/22/18 00:10 11/22/18 00:10 Laboratory Tests 11/22/18 11/22/18 00:10 00:10 Hgb 4.3 L* BUN 116.2 H* Creatinine 2.4 H Imaging - Results Cat Scan: Report Reviewed Problem List - Problems (1) GIB (gastrointestinal bleeding) Code(s): K92.2 - GASTROINTESTINAL HEMORRHAGE, UNSPECIFIED Qualifiers: GI bleed type/associated pathology: unspecified gastrointestinal hemorrhage type Qualified Code(s): K92.2 - Gastrointestinal hemorrhage, unspecified (2) CKD (chronic kidney disease) Code(s): N18.9 - CHRONIC KIDNEY DISEASE, UNSPECIFIED Qualifiers: Chronic kidney disease stage: on chronic dialysis Qualified Code(s): N18.6 - End stage renal disease; Z99.2 - Dependence on renal dialysis Assessment/Plan Current Medications Generic Name Dose Route Start Last Admin Trade Name Freq PRN Reason Stop Dose Admin Levothyroxine Sodium 94 mcg 11/22/18 10:00 11/22/18 10:39 Synthroid Injection - IVPUSH 94 mcg DAILY LINNEA Administration Pantoprazole Sodium 40 mg 11/22/18 10:00 11/22/18 10:39 Protonix Iv IVPUSH 40 mg BID LINNEA Administration Impression 1. CKD 2. right renal cyst 3. lucero 4. hypothryoid 5. dementia 6. parkinsons 7. HTN 8. gout 9. uremia 10. anemia 11. 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
--- NOTE | 2018-11-22 18:38 | CON.GI ---
Consult - History of Present Illness History of Present Illness: GI CONSULT DICTATED TRANSFUSE PRBC TO HG ABOVE 8 SERIAL CBC Q12 PPI INFUSION CLEAR LIQUID DIET ATTEMPTED TO CONTACT THE FAMILY (PHONE NUMBERS LISTED IN THE CHART - WITH NO RESPONSE) CONSIDERING THIS IS HER SECOND ADMISSION FOR ANEMIA / GI BLEED SHE WOULD BENEFIT FROM AN EGD. 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, Parkinson's Cardio/Vascular: Yes: HTN, Hyperlipdemia Pulmonary: Yes: COPD Gastrointestinal: Yes: GERD, GI Bleed Renal/: Yes: Renal Inusuff Psych: Yes: Depression Musculoskeletal: Yes: Osteoarthritis Rheumatology: Yes: Other (arthritis) Endocrine: Yes: Hypothyroidism - Past Surgical History Past Surgical History: Yes: Appendectomy, Tonsillectomy - Alcohol/Substance Use Hx Alcohol Use: No History of Substance Use: reports: None - Smoking History Smoking history: Unknown if ever smoked Have you smoked in the past 12 months: No Aproximately how many cigarettes per day: 5 If you are a former smoker, when did you quit?: 5 years ago - Social History Usual Living Arrangement: Retirement ADL: Support Services Occupation: retired History of Recent Travel: No Home Medications - Allergies Allergies/Adverse Reactions: Allergies Allergy/AdvReac Type Severity Reaction Status Date / Time No Known Allergies Allergy Verified 09/06/18 15:15 - Home Medications Home Medications: Ambulatory Orders Amlodipine Besylate [Norvasc -] 10 mg PO DAILY 05/27/18 Escitalopram Oxalate [Lexapro -] 20 mg PO DAILY 05/27/18 Latanoprost 0.005% Eye Drops [Xalatan 0.005% Eye Drops -] 1 drop OP HS 05/27/18 Polyethylene Glycol 3350 [Miralax 119 gm Btl -] 17 gm PO DAILY 05/27/18 Ferrous Sulfate [Feosol] 325 mg PO BID ud 06/04/18 Pantoprazole Sodium [Protonix -] 40 mg PO BID tablet.ec 06/04/18 Levothyroxine [Synthroid -] 125 mcg PO DAILY@0700 #30 tablet MDD 1 07/29/18 Tamsulosin HCl [Flomax -] 0.4 mg PO DAILY@0830 #30 cap.er.24h MDD 1 07/29/18 Acetaminophen [Tylenol .Regular Strength -] 650 mg PO Q6H PRN tablet 09/09/18 Sodium Bicarbonate - 650 mg PO BID tablet 10/18/18 Albuterol 0.083% Nebulizer Latoya [Ventolin 0.083% Nebulizer Soln -] 1 amp NEB Q6H PRN amp 11/01/18 Ranitidine [Zantac -] 150 mg PO BID tablet 11/01/18 Ondansetron [Zofran -] 4 mg PO QID 11/22/18 Physical Exam-GI Vital Signs: Vital Signs Temperature 97.9 F 11/22/18 14:34 Pulse Rate 72 11/22/18 17:00 Respiratory Rate 18 11/22/18 17:00 Blood Pressure 152/62 11/22/18 17:00 O2 Sat by Pulse Oximetry (%) 100 11/22/18 17:00 Labs: CBC, BMP 11/22/18 00:10 11/22/18 00:10 INR, PTT INR 1.02 (0.83-1.09) 11/22/18 00:10
--- NOTE | 2018-11-22 20:35 | CONS ---
DATE OF CONSULTATION: 11/22/2018 The patient is a 77-year-old woman, from [facility] facility. She has a past medical history of CKD, anemia, dementia, COPD, Parkinson's, failure to thrive, recent admission earlier in the month for GI bleed. Now she is sent to the hospital for evaluation of anemia - HG on admission 4.3. The patient is a poor historian secondary to her dementia. Therefore, the HPI is obtained from the chart. She was seen in consultation by GI service earlier in the month when she was hospitalized. Conservative management was recommended at the time. There is no report of any melena, hematochezia, abdominal pain, nausea, vomiting, or hematemesis PAST MEDICAL AND SURGICAL HISTORY: As was stated in the HPI. Additional surgical history includes an appendectomy and tonsillectomy. ALLERGIES: No known drug allergies. SOCIAL HISTORY: Does not smoke. Apparently, as per the chart, she quit smoking 5 years ago. No alcohol use. FAMILY HISTORY: Unable to obtain. REVIEW OF SYSTEMS: unable to obtain MEDICATIONS: Home medications reviewed, include Norvasc, Lexapro, Xalatan, MiraLax, iron, Protonix, Synthroid, Flomax, Tylenol, sodium bicarbonate, Ventolin, and Zantac. PHYSICAL EXAMINATION: Vital Signs: Temperature 97, pulse 73, respiratory rate 12, blood pressure 160/ 85, oxygen saturation 100% on 3 L. General: No acute distress. Oriented to person. Cardiovascular: S1, S2, regular rate and rhythm. Lungs: Bilaterally clear to auscultation anteriorly. Abdomen: Soft and nontender. Extremities: No edema. LABORATORY DATA: White blood cell count on admission 4.3, white blood cell count 12, platelet count 333, INR 1. Sodium 138, potassium 4.8, BUN 116, creatinine 2.4, total bilirubin 0.3, AST 16, ALT 13, alkaline phosphatase 73, lipase 61. Stool for occult blood was positive. She had abdomen and pelvis CT scan, which revealed bilateral pleural effusions, left greater than right, with atelectasis changes of the lung bases, atrophic pancreas and kidneys, with large right upper pole cyst, rectal distention, endometrial fluid. There was a small amount of fecal material in the rectum. IMPRESSION: Severe anemia, fecal occult blood testing is positive. There is no sign of an overt GI bleed; however, gastrointestinal blood loss cannot be excluded at this time. The patient is hemodynamically stable. RECOMMENDATION: Continue with Protonix, clear liquid diet today, trend hemoglobin and hematocrit q.12,transfuse to HG greater than 8 ; avoid NSAID. She would benefit from a diagnostic upper endoscopy once she is adequately resuscitated. I called contact numbers listed - no answer obtained. Juanpablo f/u Priya . BLACK MORALES DO LUFMA/[id number] MTDD
[2018-11-22 22:26] LABS: BASO % 0.6 % (0-2.0); EOS % 0.5 % (0-4.5); LYMPH % 13.7 % (8-40); MCH 29.5 pg (25.7-33.7); MCHC 33.3 g/dl (32.0-36.0); MEAN CELL VOLUME 88.4 fl (80-96); MEAN PLT VOLUME 8.2 fl (7.5-11.1); MONO % 4.5 % (3.8-10.2); NEUT % 80.7 % (42.8-82.8); PLATELET COUNT 371 K/MM3 (134-434); RBC 2.72 M/mm3 (3.60-5.2); RDW 14.8 % (11.6-15.6); WHITE BLOOD COUNT 10.4 K/mm3 (4.0-10.0)
[2018-11-22] MEDS ORDERED: METOPROLOL TARTRATE 5 MG/5 ML VIAL IVPUSH PRN (22:27)
[2018-11-23 07:49] LABS: BASO % 1.4 % (0-2.0); EOS % 1.1 % (0-4.5); HEMATOCRIT 23.2 % (32.4-45.2); HEMOGLOBIN 7.7 GM/dL (10.7-15.3); LYMPH % 8.8 % (8-40); MCH 29.9 pg (25.7-33.7); MCHC 33.4 g/dl (32.0-36.0); MEAN CELL VOLUME 89.6 fl (80-96); MEAN PLT VOLUME 8.3 fl (7.5-11.1); NEUT % 83.7 % (42.8-82.8); PLATELET COUNT 354 K/MM3 (134-434); RBC 2.59 M/mm3 (3.60-5.2); RDW 14.7 % (11.6-15.6)
[2018-11-23 08:24] LABS: BLOOD UREA NITROGEN 102.8 mg/dL (7-18); CALCIUM 8.7 mg/dL (8.5-10.1); CREATININE 2.4 mg/dL (0.55-1.3); POTASSIUM 4.2 mmol/L (3.5-5.1)
[2018-11-23] MEDS ORDERED: PT OWN MED DRAWER 7, Y5N ONE (10:05)
[2018-11-23] MEDS: LEVOTHYROXINE SODIUM 100 MCG VIAL IVPUSH SCH (11:07)
[2018-11-23] MEDS: PANTOPRAZOLE SODIUM 40 MG VIAL IVPUSH SCH ×2 (11:08→21:22)
--- NOTE | 2018-11-23 11:12 | PN ---
Progress Note, Physician Chief Complaint: GI bleed History of Present Illness: NAD Received 2 units of PRBC Seen by GI Chronic GI bleed, Several attempts have been made to get in touch with the family with no success - Current Medication List Current Medications: Active Medications Levothyroxine Sodium (Synthroid Injection -) 94 mcg IVPUSH DAILY [facility] Last Admin: 11/22/18 10:39 Dose: 94 mcg Metoprolol Tartrate (Lopressor Injection -) 5 mg IVPUSH Q4H PRN PRN Reason: TACHYCARDIA (HR > 110 BPM) Pantoprazole Sodium (Protonix Iv) 40 mg IVPUSH BID [facility] Last Admin: 11/22/18 21:26 Dose: 40 mg - Objective Vital Signs: Vital Signs Temperature 98.4 F 11/23/18 05:00 Pulse Rate 68 11/23/18 09:00 Respiratory Rate 18 11/23/18 09:00 Blood Pressure 142/74 11/23/18 09:00 O2 Sat by Pulse Oximetry (%) 98 11/22/18 20:00 Constitutional: Yes: No Distress, Calm, Thin Cardiovascular: Yes: Regular Rate and Rhythm Respiratory: Yes: Regular Gastrointestinal: Yes: Normal Bowel Sounds, Soft Genitourinary: Yes: Incontinence Musculoskeletal: Yes: WNL Extremities: Yes: WNL Edema: No Peripheral Pulses WNL: Yes Neurological: Yes: Alert, Confusion Psychiatric: Yes: Alert Labs: CBC, BMP 11/23/18 07:25 11/23/18 06:00 INR, PTT INR 1.02 (0.83-1.09) 11/22/18 00:10 Assessment/Plan (1) GIB (gastrointestinal bleeding) Assessment/Plan: -GI consult -Hg 4.3 -s/p 2U PRBC transfusion -Stool OB positive -Pantoprazole -Clear liquid Code(s): K92.2 - GASTROINTESTINAL HEMORRHAGE, UNSPECIFIED Qualifiers: GI bleed type/associated pathology: unspecified gastrointestinal hemorrhage type Qualified Code(s): K92.2 - Gastrointestinal hemorrhage, unspecified (2) Anemia Assessment/Plan: -GI consult -s/p 2U PRBC transfusion -Stool OB positive -Pantoprazole -Clear liquid diet Code(s): D64.9 - ANEMIA, UNSPECIFIED Qualifiers: Anemia type: unspecified type Qualified Code(s): D64.9 - Anemia, unspecified (3) CHF (congestive heart failure) Assessment/Plan: -1L fluid restriction -daily weights Code(s): I50.9 - HEART FAILURE, UNSPECIFIED (4) CKD (chronic kidney disease) Assessment/Plan: -Renal consult -monitor renal function daily for downtrend Code(s): N18.9 - CHRONIC KIDNEY DISEASE, UNSPECIFIED Qualifiers: Chronic kidney disease stage: on chronic dialysis Qualified Code(s): N18.6 - End stage renal disease; Z99.2 - Dependence on renal dialysis (5) HTN (hypertension) Assessment/Plan: -monitor BP -Lopressor 5mg IVP prn for HR >110bpm Code(s): I10 - ESSENTIAL (PRIMARY) HYPERTENSION (6) Hypothyroid Assessment/Plan: -Levothyroxine Code(s): E03.9 - HYPOTHYROIDISM, UNSPECIFIED
--- NOTE | 2018-11-23 13:11 | PN.GI ---
GI Progress Note Subjective: No melena, blood per rectum, lightheadedness or dizziness. Awake alert and without complaints in setting of severe anemia. Received 2 units PRBC's with appropriate increase in Hgb. Elevated BUN continues. - Objective Vital Signs: Vital Signs Temperature 98.4 F 11/23/18 05:00 Pulse Rate 68 11/23/18 09:00 Respiratory Rate 18 11/23/18 09:00 Blood Pressure 142/74 11/23/18 09:00 O2 Sat by Pulse Oximetry (%) 98 11/22/18 20:00 Constitutional: No Distress, Calm Cardiovascular: Yes: Regular Rate and Rhythm, S1, S2 Respiratory: Yes: CTA Bilaterally Gastrointestinal Inspection: No: Distention ...Auscultate: Yes: Normoactive Bowel Sounds ...Palpate: Yes: Soft. No: Tenderness Labs: CBC, BMP 11/23/18 07:25 11/23/18 06:00 INR, PTT INR 1.02 (0.83-1.09) 11/22/18 00:10 Problem List - Problems (1) GIB (gastrointestinal bleeding) Assessment/Plan: Favor EGD to assess for upper GI source and colonoscopy if negative. Continue with PPI 2 large bore IV's with NS running Code(s): K92.2 - GASTROINTESTINAL HEMORRHAGE, UNSPECIFIED Qualifiers: GI bleed type/associated pathology: unspecified gastrointestinal hemorrhage type Qualified Code(s): K92.2 - Gastrointestinal hemorrhage, unspecified (2) Anemia Assessment/Plan: Tranfuse to Hgb of 8 and conitnue to follow every 8 hours for now Code(s): D64.9 - ANEMIA, UNSPECIFIED Qualifiers: Anemia type: unspecified type Qualified Code(s): D64.9 - Anemia, unspecified
--- NOTE | 2018-11-23 13:52 | PN ---
Progress Note, Physician History of Present Illness: Pt seen and examined at bedside. She is confused. She denies shortness of breath. - Current Medication List Current Medications: Active Medications Levothyroxine Sodium (Synthroid Injection -) 94 mcg IVPUSH DAILY [facility] Last Admin: 11/23/18 11:07 Dose: 94 mcg Metoprolol Tartrate (Lopressor Injection -) 5 mg IVPUSH Q4H PRN PRN Reason: TACHYCARDIA (HR > 110 BPM) Pantoprazole Sodium (Protonix Iv) 40 mg IVPUSH BID [facility] Last Admin: 11/23/18 11:08 Dose: 40 mg - Objective Vital Signs: Vital Signs Temperature 98.4 F 11/23/18 05:00 Pulse Rate 68 11/23/18 09:00 Respiratory Rate 18 11/23/18 09:00 Blood Pressure 142/74 11/23/18 09:00 O2 Sat by Pulse Oximetry (%) 98 11/22/18 20:00 Constitutional: Yes: Calm Eyes: Yes: Conjunctiva Clear HENT: Yes: Atraumatic Neck: Yes: Supple Cardiovascular: Yes: S1, S2 Respiratory: Yes: CTA Bilaterally Gastrointestinal: Yes: Normal Bowel Sounds, Soft Genitourinary: Yes: WNL Musculoskeletal: Yes: Joint Stiffness Integumentary: Yes: WNL Neurological: Yes: Confusion Labs: CBC, BMP 11/23/18 07:25 11/23/18 06:00 INR, PTT INR 1.02 (0.83-1.09) 11/22/18 00:10 Problem List - Problems (1) GIB (gastrointestinal bleeding) Code(s): K92.2 - GASTROINTESTINAL HEMORRHAGE, UNSPECIFIED Qualifiers: GI bleed type/associated pathology: unspecified gastrointestinal hemorrhage type Qualified Code(s): K92.2 - Gastrointestinal hemorrhage, unspecified (2) CKD (chronic kidney disease) Code(s): N18.9 - CHRONIC KIDNEY DISEASE, UNSPECIFIED Qualifiers: Chronic kidney disease stage: on chronic dialysis Qualified Code(s): N18.6 - End stage renal disease; Z99.2 - Dependence on renal dialysis Assessment/Plan Current Medications Generic Name Dose Route Start Last Admin Trade Name Freq PRN Reason Stop Dose Admin Levothyroxine Sodium 94 mcg 11/22/18 10:00 11/23/18 11:07 Synthroid Injection - IVPUSH 94 mcg DAILY [facility] Administration Metoprolol Tartrate 5 mg 11/22/18 22:27 Lopressor Injection - IVPUSH Q4H PRN TACHYCARDIA (HR > 110 BPM) Pantoprazole Sodium 40 mg 11/22/18 10:00 11/23/18 11:08 Protonix Iv IVPUSH 40 mg BID [facility] Administration Impression 1. CKD 2. right renal cyst 3. lucero 4. hypothryoid 5. dementia 6. parkinsons 7. HTN 8. gout 9. uremia 10. anemia 11. GI bleed Plan - renal function improving - monitor hg - gi workup in progress - avoid nsaids - avoid nephrotoxins - renal diet once eating - monitor renal function - gi bleed contributing to elevated bun
[2018-11-24] MEDS ORDERED: PT OWN MED DRAWER 7, Y5N ONE (11:52)
[2018-11-24] MEDS: PANTOPRAZOLE SODIUM 40 MG VIAL IVPUSH SCH ×2 (12:03→22:45)
[2018-11-24] MEDS: LEVOTHYROXINE SODIUM 100 MCG VIAL IVPUSH SCH (12:03)
--- NOTE | 2018-11-24 12:43 | PN ---
Progress Note, Physician Chief Complaint: patient refused PRBC yesterday and refusing blood work and iv insertion psych consult for competency not able to reach daughter the phone number on chart not able to get through - Current Medication List Current Medications: Active Medications Levothyroxine Sodium (Synthroid Injection -) 94 mcg IVPUSH DAILY [facility] Last Admin: 11/24/18 12:03 Dose: Not Given Metoprolol Tartrate (Lopressor Injection -) 5 mg IVPUSH Q4H PRN PRN Reason: TACHYCARDIA (HR > 110 BPM) Pantoprazole Sodium (Protonix Iv) 40 mg IVPUSH BID [facility] Last Admin: 11/24/18 12:03 Dose: Not Given - Objective Vital Signs: Vital Signs Temperature 98.3 F 11/24/18 06:00 Pulse Rate 70 11/24/18 06:00 Respiratory Rate 20 11/24/18 06:00 Blood Pressure 145/73 11/24/18 06:00 O2 Sat by Pulse Oximetry (%) 98 11/22/18 20:00 Constitutional: Yes: Calm, Thin Cardiovascular: Yes: Regular Rate and Rhythm, S1, S2 Respiratory: Yes: CTA Bilaterally Gastrointestinal: Yes: Normal Bowel Sounds, Soft Edema: No Neurological: Yes: Alert Labs: CBC, BMP 11/23/18 07:25 11/23/18 06:00 INR, PTT INR 1.02 (0.83-1.09) 11/22/18 00:10 Problem List - Problems (1) GIB (gastrointestinal bleeding) Assessment/Plan: patient refusing blood work and prbc psych eval for competency iv protonix bid clear liquid diet Code(s): K92.2 - GASTROINTESTINAL HEMORRHAGE, UNSPECIFIED Qualifiers: GI bleed type/associated pathology: unspecified gastrointestinal hemorrhage type Qualified Code(s): K92.2 - Gastrointestinal hemorrhage, unspecified (2) Hypothyroid Assessment/Plan: on iv synthroid Code(s): E03.9 - HYPOTHYROIDISM, UNSPECIFIED
--- NOTE | 2018-11-24 14:38 | PN ---
Progress Note (short form) - Note Progress Note: tried to call the daughter by the phone number listed but the call did not work apparently the number not working Problem List - Problems (1) GIB (gastrointestinal bleeding) Code(s): K92.2 - GASTROINTESTINAL HEMORRHAGE, UNSPECIFIED Qualifiers: GI bleed type/associated pathology: unspecified gastrointestinal hemorrhage type Qualified Code(s): K92.2 - Gastrointestinal hemorrhage, unspecified (2) Hypothyroid Code(s): E03.9 - HYPOTHYROIDISM, UNSPECIFIED
--- NOTE | 2018-11-24 16:11 | PN ---
Progress Note, Physician History of Present Illness: Pt seen and examined at bedside. She appears comfortable. She denies shortness of breath. - Current Medication List Current Medications: Active Medications Levothyroxine Sodium (Synthroid Injection -) 94 mcg IVPUSH DAILY [facility] Last Admin: 11/24/18 12:03 Dose: Not Given Metoprolol Tartrate (Lopressor Injection -) 5 mg IVPUSH Q4H PRN PRN Reason: TACHYCARDIA (HR > 110 BPM) Pantoprazole Sodium (Protonix Iv) 40 mg IVPUSH BID [facility] Last Admin: 11/24/18 12:03 Dose: Not Given - Objective Vital Signs: Vital Signs Temperature 98.0 F 11/24/18 14:00 Pulse Rate 84 11/24/18 14:00 Respiratory Rate 18 11/24/18 10:00 Blood Pressure 151/56 L 11/24/18 14:00 O2 Sat by Pulse Oximetry (%) 98 11/24/18 09:00 Constitutional: Yes: Calm Eyes: Yes: Conjunctiva Clear HENT: Yes: Atraumatic Neck: Yes: Supple Cardiovascular: Yes: S1, S2 Respiratory: Yes: CTA Bilaterally Gastrointestinal: Yes: Normal Bowel Sounds, Soft Genitourinary: Yes: WNL Musculoskeletal: Yes: Muscle Weakness Edema: No Integumentary: Yes: WNL Neurological: Yes: Confusion Labs: CBC, BMP 11/23/18 07:25 11/23/18 06:00 INR, PTT INR 1.02 (0.83-1.09) 11/22/18 00:10 Problem List - Problems (1) GIB (gastrointestinal bleeding) Code(s): K92.2 - GASTROINTESTINAL HEMORRHAGE, UNSPECIFIED Qualifiers: GI bleed type/associated pathology: unspecified gastrointestinal hemorrhage type Qualified Code(s): K92.2 - Gastrointestinal hemorrhage, unspecified (2) CKD (chronic kidney disease) Code(s): N18.9 - CHRONIC KIDNEY DISEASE, UNSPECIFIED Qualifiers: Chronic kidney disease stage: on chronic dialysis Qualified Code(s): N18.6 - End stage renal disease; Z99.2 - Dependence on renal dialysis Assessment/Plan Current Medications Generic Name Dose Route Start Last Admin Trade Name Freq PRN Reason Stop Dose Admin Levothyroxine Sodium 94 mcg 11/22/18 10:00 11/24/18 12:03 Synthroid Injection - IVPUSH Not Given DAILY [facility] Metoprolol Tartrate 5 mg 11/22/18 22:27 Lopressor Injection - IVPUSH Q4H PRN TACHYCARDIA (HR > 110 BPM) Pantoprazole Sodium 40 mg 11/22/18 10:00 11/24/18 12:03 Protonix Iv IVPUSH Not Given BID [facility] Impression 1. CKD 2. right renal cyst 3. lucero 4. hypothryoid 5. dementia 6. parkinsons 7. HTN 8. gout 9. uremia 10. anemia 11. GI bleed Plan - check bmp - monitor hg - GI follow up - medical team unable to reach daughter - avoid nsaids - avoid nephrotoxins
--- NOTE | 2018-11-24 20:49 | PN ---
Progress Note (short form) - Note Progress Note: no active bleeding, patient with multiple admissions in the past, uable to get in touch with family may need 2 physician consent for EGD and colonoscopy
--- NOTE | 2018-11-24 21:28 | PN ---
Mental Health Exam - Mental Status Exam Alert and Oriented to: Place (believes literary writer to be somebody else. ) Cognitive Function: Impaired Patient Appearance: Unkempt (emaciated, off color. ) Mood: Suspicious, Irritable Affect: Mood Congruent Patient Behavior: Guarded, Suspicious, Resitive to Care (agreed to have vital complete but not IV line, for hydration, meds, Blood transfusion. ), Cooperative Speech Pattern: Clear, Rambling, Tangential Voice Loudness: Mildly Loud Thought Process: Circumstantial, Tangential, Disoriented Thought Disorder: Not Present Hallucinations: None Suicidal Ideation: None Homicidal Ideation: None Insight/Judgement: Poor Sleep: Fair Appetite: Poor Muscle strength/Tone: Mild Hypotonicity (able to recognize, point to objects. ) Gait/Station: Deferred Additional Comments: this is a 78 yo female with CKD on dialysis, dementia, HTN. Client was sent from [facility]. On admission she was alert and orientated. Called to client to assess competancy, refused to have iv insert or blood transfusion. Currently mildly confused, believes that i was somebody else, mild paronoia thought. She is gaurded, alert, angry affect, not able to answer specific details. She stated " let the doctor do what he needs to do". She has lack of understandingh with detail. Agreed to vitals, this pm, spoke with [place]. Client is confabulatng also, believing she is very poor, cannot afford a wheelchair. Client believes that she has "no-one who cares" in her family. DX Dementia. plan Patient still has competance to make own desesion. however does not comprehend all care, depending on her changing affect. Attempt to reach P
[2018-11-25 07:22] LABS: BASO % 0.9 % (0-2.0); EOS % 4.3 % (0-4.5); HEMATOCRIT 23.1 % (32.4-45.2); LYMPH % 14.3 % (8-40); MCH 31.1 pg (25.7-33.7); MCHC 34.6 g/dl (32.0-36.0); NEUT % 72.5 % (42.8-82.8); PLATELET COUNT 417 K/MM3 (134-434); RBC 2.57 M/mm3 (3.60-5.2); RDW 15.1 % (11.6-15.6); WHITE BLOOD COUNT 5.8 K/mm3 (4.0-10.0)
[2018-11-25 08:00] LABS: ALBUMIN 2.9 g/dl (3.4-5.0); BILIRUBIN,TOTAL 0.5 mg/dL (0.2-1); BLOOD UREA NITROGEN 81.3 mg/dL (7-18); CALCIUM 8.5 mg/dL (8.5-10.1); CREATININE 2.1 mg/dL (0.55-1.3); POTASSIUM 4.1 mmol/L (3.5-5.1); TOT PROT 6.1 g/dl (6.4-8.2)
[2018-11-25] MEDS: LEVOTHYROXINE SODIUM 100 MCG VIAL IVPUSH SCH (10:52)
[2018-11-25] MEDS: PANTOPRAZOLE SODIUM 40 MG VIAL IVPUSH SCH ×2 (10:52→22:35)
--- NOTE | 2018-11-25 14:43 | PN ---
Progress Note, Physician Chief Complaint: patient is awake and alert refusing iv insertion - Current Medication List Current Medications: Active Medications Levothyroxine Sodium (Synthroid Injection -) 94 mcg IVPUSH DAILY [facility] Last Admin: 11/25/18 10:52 Dose: Not Given Metoprolol Tartrate (Lopressor Injection -) 5 mg IVPUSH Q4H PRN PRN Reason: TACHYCARDIA (HR > 110 BPM) Pantoprazole Sodium (Protonix Iv) 40 mg IVPUSH BID [facility] Last Admin: 11/25/18 10:52 Dose: Not Given - Objective Vital Signs: Vital Signs Temperature 98.5 F 11/25/18 14:00 Pulse Rate 66 11/25/18 14:00 Respiratory Rate 18 11/25/18 10:00 Blood Pressure 163/73 11/25/18 14:00 O2 Sat by Pulse Oximetry (%) 98 11/25/18 09:00 Constitutional: Yes: Calm, Thin Cardiovascular: Yes: Regular Rate and Rhythm, S1, S2 Respiratory: Yes: CTA Bilaterally, Diminished (at baseline) Gastrointestinal: Yes: Normal Bowel Sounds, Soft Edema: No Neurological: Yes: Alert Labs: CBC, BMP 11/25/18 06:48 11/25/18 06:48 INR, PTT INR 1.02 (0.83-1.09) 11/22/18 00:10 Problem List - Problems (1) GIB (gastrointestinal bleeding) Assessment/Plan: patient refusing blood work and prbc and iv insertion psych eval for competency- deemed competent iv protonix bid clear liquid diet GI note for two physican consent to plan egd for wednesday will get palliative to come see patieint as she is awake and alert i tried calling the HCP again today not able to get through h/h is holding Code(s): K92.2 - GASTROINTESTINAL HEMORRHAGE, UNSPECIFIED Qualifiers: GI bleed type/associated pathology: unspecified gastrointestinal hemorrhage type Qualified Code(s): K92.2 - Gastrointestinal hemorrhage, unspecified (2) Hypothyroid Assessment/Plan: on iv synthroid Code(s): E03.9 - HYPOTHYROIDISM, UNSPECIFIED
--- NOTE | 2018-11-25 15:03 | PN ---
Progress Note, Physician History of Present Illness: Pt seen and examined at bedside. She is awake and appears comfortable. She remains confused. - Current Medication List Current Medications: Active Medications Levothyroxine Sodium (Synthroid Injection -) 94 mcg IVPUSH DAILY [facility] Last Admin: 11/25/18 10:52 Dose: Not Given Metoprolol Tartrate (Lopressor Injection -) 5 mg IVPUSH Q4H PRN PRN Reason: TACHYCARDIA (HR > 110 BPM) Pantoprazole Sodium (Protonix Iv) 40 mg IVPUSH BID [facility] Last Admin: 11/25/18 10:52 Dose: Not Given - Objective Vital Signs: Vital Signs Temperature 98.5 F 11/25/18 14:00 Pulse Rate 66 11/25/18 14:00 Respiratory Rate 18 11/25/18 10:00 Blood Pressure 163/73 11/25/18 14:00 O2 Sat by Pulse Oximetry (%) 98 11/25/18 09:00 Constitutional: Yes: Calm Eyes: Yes: Conjunctiva Clear HENT: Yes: Atraumatic Neck: Yes: Supple Cardiovascular: Yes: S1, S2 Gastrointestinal: Yes: Soft Genitourinary: Yes: Incontinence Musculoskeletal: Yes: WNL Edema: No Neurological: Yes: Confusion Labs: CBC, BMP 11/25/18 06:48 11/25/18 06:48 INR, PTT INR 1.02 (0.83-1.09) 11/22/18 00:10 Problem List - Problems (1) GIB (gastrointestinal bleeding) Code(s): K92.2 - GASTROINTESTINAL HEMORRHAGE, UNSPECIFIED Qualifiers: GI bleed type/associated pathology: unspecified gastrointestinal hemorrhage type Qualified Code(s): K92.2 - Gastrointestinal hemorrhage, unspecified (2) CKD (chronic kidney disease) Code(s): N18.9 - CHRONIC KIDNEY DISEASE, UNSPECIFIED Qualifiers: Chronic kidney disease stage: on chronic dialysis Qualified Code(s): N18.6 - End stage renal disease; Z99.2 - Dependence on renal dialysis Assessment/Plan Current Medications Generic Name Dose Route Start Last Admin Trade Name Freq PRN Reason Stop Dose Admin Levothyroxine Sodium 94 mcg 11/22/18 10:00 11/25/18 10:52 Synthroid Injection - IVPUSH Not Given DAILY [facility] Metoprolol Tartrate 5 mg 11/22/18 22:27 Lopressor Injection - IVPUSH Q4H PRN TACHYCARDIA (HR > 110 BPM) Pantoprazole Sodium 40 mg 11/22/18 10:00 11/25/18 10:52 Protonix Iv IVPUSH Not Given BID [facility] Impression 1. CKD 2. right renal cyst 3. lucero 4. hypothryoid 5. dementia 6. parkinsons 7. HTN 8. gout 9. uremia 10. anemia 11. GI bleed Plan - renal function is improving - GI bleed likely contributed to elevated bun - monitor hg - GI follow up - avoid nsaids - avoid nephrotoxins
--- NOTE | 2018-11-26 08:44 | PN ---
Progress Note, Physician Chief Complaint: GI bleed History of Present Illness: NAD Seen by GI Chronic GI bleed, Several attempts have been made to get in touch with the family with no success Planned EGD on Wednesday with 2 physician consent - Current Medication List Current Medications: Active Medications Levothyroxine Sodium (Synthroid Injection -) 94 mcg IVPUSH DAILY [facility] Last Admin: 11/25/18 10:52 Dose: Not Given Metoprolol Tartrate (Lopressor Injection -) 5 mg IVPUSH Q4H PRN PRN Reason: TACHYCARDIA (HR > 110 BPM) Pantoprazole Sodium (Protonix Iv) 40 mg IVPUSH BID [facility] Last Admin: 11/25/18 22:35 Dose: Not Given - Objective Vital Signs: Vital Signs Temperature 97.6 F 11/26/18 05:00 Pulse Rate 73 11/26/18 05:00 Respiratory Rate 20 11/26/18 07:37 Blood Pressure 168/66 11/26/18 05:00 O2 Sat by Pulse Oximetry (%) 100 11/26/18 07:37 Constitutional: Yes: No Distress, Calm, Thin Cardiovascular: Yes: Regular Rate and Rhythm Respiratory: Yes: Regular Gastrointestinal: Yes: WNL Genitourinary: Yes: Incontinence Musculoskeletal: Yes: Muscle Weakness Extremities: Yes: WNL Edema: No Peripheral Pulses WNL: Yes Neurological: Yes: Alert, Confusion Psychiatric: Yes: Alert Labs: CBC, BMP 11/25/18 06:48 11/25/18 06:48 INR, PTT INR 1.02 (0.83-1.09) 11/22/18 00:10 Assessment/Plan (1) GIB (gastrointestinal bleeding) Assessment/Plan: -GI consult -Hg 4.3 -s/p 2U PRBC transfusion -Stool OB positive -Pantoprazole -Clear liquid Code(s): K92.2 - GASTROINTESTINAL HEMORRHAGE, UNSPECIFIED Qualifiers: GI bleed type/associated pathology: unspecified gastrointestinal hemorrhage type Qualified Code(s): K92.2 - Gastrointestinal hemorrhage, unspecified (2) Anemia Assessment/Plan: -GI consult -Hg 4.3 -s/p 2U PRBC transfusion -Stool OB positive -Pantoprazole -Clear liquid Code(s): D64.9 - ANEMIA, UNSPECIFIED Qualifiers: Anemia type: unspecified type Qualified Code(s): D64.9 - Anemia, unspecified (3) CHF (congestive heart failure) Assessment/Plan: -1L fluid restriction -daily weights Code(s): I50.9 - HEART FAILURE, UNSPECIFIED (4) CKD (chronic kidney disease) Assessment/Plan: -Renal consult -BUN/Cr 116.2/2.4 -monitor renal function daily for downtrend Code(s): N18.9 - CHRONIC KIDNEY DISEASE, UNSPECIFIED Qualifiers: Chronic kidney disease stage: on chronic dialysis Qualified Code(s): N18.6 - End stage renal disease; Z99.2 - Dependence on renal dialysis (5) HTN (hypertension) Assessment/Plan: -monitor BP -Lopressor 5mg IVP prn for HR >110bpm Code(s): I10 - ESSENTIAL (PRIMARY) HYPERTENSION (6) Hypothyroid Assessment/Plan: -Levothyroxine Code(s): E03.9 - HYPOTHYROIDISM, UNSPECIFIED
[2018-11-26] MEDS: LEVOTHYROXINE SODIUM 100 MCG VIAL IVPUSH SCH (09:09)
[2018-11-26] MEDS: PANTOPRAZOLE SODIUM 40 MG VIAL IVPUSH SCH ×2 (09:09→22:37)
[2018-11-27] MEDS: LEVOTHYROXINE SODIUM 100 MCG VIAL IVPUSH SCH (09:28)
[2018-11-27] MEDS: PANTOPRAZOLE SODIUM 40 MG VIAL IVPUSH SCH ×2 (09:28→21:19)
--- NOTE | 2018-11-27 11:08 | PN ---
Progress Note, Physician Chief Complaint: GI bleed History of Present Illness: NAD Seen by GI Chronic GI bleed, Several attempts have been made to get in touch with the family with no success Planned EGD+ colonoscopy on Wednesday with 2 physician consent - Current Medication List Current Medications: Active Medications Levothyroxine Sodium (Synthroid Injection -) 94 mcg IVPUSH DAILY [facility] Last Admin: 11/27/18 09:28 Dose: Not Given Metoprolol Tartrate (Lopressor Injection -) 5 mg IVPUSH Q4H PRN PRN Reason: TACHYCARDIA (HR > 110 BPM) Pantoprazole Sodium (Protonix Iv) 40 mg IVPUSH BID [facility] Last Admin: 11/27/18 09:28 Dose: Not Given - Objective Vital Signs: Vital Signs Temperature 97.6 F 11/27/18 06:00 Pulse Rate 61 11/27/18 06:00 Respiratory Rate 18 11/27/18 08:12 Blood Pressure 176/70 H 11/27/18 06:00 O2 Sat by Pulse Oximetry (%) 100 11/27/18 08:12 Constitutional: Yes: No Distress, Calm, Thin Cardiovascular: Yes: Regular Rate and Rhythm Respiratory: Yes: WNL, Regular Gastrointestinal: Yes: WNL, Normal Bowel Sounds, Soft Genitourinary: Yes: Incontinence Musculoskeletal: Yes: Muscle Weakness Extremities: Yes: WNL Edema: No Peripheral Pulses WNL: Yes Neurological: Yes: Alert, Confusion Psychiatric: Yes: Alert Labs: CBC, BMP 11/25/18 06:48 11/25/18 06:48 INR, PTT INR 1.02 (0.83-1.09) 11/22/18 00:10 Assessment/Plan (1) GIB (gastrointestinal bleeding) Assessment/Plan: -GI consult -s/p 2U PRBC transfusion -Stool OB positive -Pantoprazole -Clear liquid Code(s): K92.2 - GASTROINTESTINAL HEMORRHAGE, UNSPECIFIED Qualifiers: GI bleed type/associated pathology: unspecified gastrointestinal hemorrhage type Qualified Code(s): K92.2 - Gastrointestinal hemorrhage, unspecified (2) Anemia Assessment/Plan: -GI consult -s/p 2U PRBC transfusion -Stool OB positive -Pantoprazole -Clear liquid diet -EGD+Colonoscopy in AM with 2 physician consent -NPO past midnight -Bowel prep Code(s): D64.9 - ANEMIA, UNSPECIFIED Qualifiers: Anemia type: unspecified type Qualified Code(s): D64.9 - Anemia, unspecified (3) CHF (congestive heart failure) Assessment/Plan: -1L fluid restriction -daily weights Code(s): I50.9 - HEART FAILURE, UNSPECIFIED (4) CKD (chronic kidney disease) Assessment/Plan: -Renal consult -monitor renal function daily for downtrend Code(s): N18.9 - CHRONIC KIDNEY DISEASE, UNSPECIFIED Qualifiers: Chronic kidney disease stage: on chronic dialysis Qualified Code(s): N18.6 - End stage renal disease; Z99.2 - Dependence on renal dialysis (5) HTN (hypertension) Assessment/Plan: -monitor BP -Lopressor 5mg IVP prn for HR >110bpm Code(s): I10 - ESSENTIAL (PRIMARY) HYPERTENSION (6) Hypothyroid Assessment/Plan: -Levothyroxine Code(s): E03.9 - HYPOTHYROIDISM, UNSPECIFIED
[2018-11-27] MEDS ORDERED: POLYETHYLENE GLYCOL 3350 255 GM BTL PO ONE (12:15)
[2018-11-28] MEDS: PANTOPRAZOLE SODIUM 40 MG VIAL IVPUSH SCH ×2 (10:41→22:36)
[2018-11-28] MEDS: LEVOTHYROXINE SODIUM 100 MCG VIAL IVPUSH SCH (10:44)
[2018-11-28] MEDS ORDERED: HALOPERIDOL LACTATE 5 MG/ML IM ONE (12:00)
--- NOTE | 2018-11-28 12:14 | PN ---
Progress Note (short form) - Note Progress Note: Patient seen for Psych follow up. Cas3e discussed discussed with dr. Grewal. MS: alert, confused, disoriented, wants to get dressed and go out. Does not know where she is . ? [id number]. refusing IV and Endoscopy fotr acute GI bleed. REC: 1) Patient lacks capacity 2) ativan IM p-rn as ordered. to make informed decisions at this time.
--- NOTE | 2018-11-28 13:54 | PN ---
Progress Note, Physician History of Present Illness: Pt seen and examined at bedside. She is awake but confused. She was found not to have capacity to make decisions. - Current Medication List Current Medications: Active Medications Levothyroxine Sodium (Synthroid Injection -) [address] [facility] Last Admin: 11/27/18 09:28 Dose: Not Given Lorazepam (Ativan Injection -) 0.5 mg IM TID PRN PRN Reason: ANXIETY Metoprolol Tartrate (Lopressor Injection -) 5 mg IVPUSH Q4H PRN PRN Reason: TACHYCARDIA (HR > 110 BPM) Pantoprazole Sodium (Protonix Iv) [address] [facility] Last Admin: 11/27/18 21:19 Dose: Not Given - Objective Vital Signs: Vital Signs Temperature 97.6 F 11/28/18 06:00 Pulse Rate 66 11/28/18 06:00 Respiratory Rate 20 11/28/18 06:00 Blood Pressure 173/96 H 11/28/18 06:00 O2 Sat by Pulse Oximetry (%) 99 11/27/18 21:00 Constitutional: Yes: Calm Eyes: Yes: Conjunctiva Clear HENT: Yes: Atraumatic Neck: Yes: Supple Cardiovascular: Yes: S1, S2 Respiratory: Yes: CTA Bilaterally Gastrointestinal: Yes: Soft Genitourinary: Yes: WNL Musculoskeletal: Yes: WNL Extremities: Yes: WNL Edema: No Neurological: Yes: Confusion Labs: CBC, BMP 11/25/18 06:48 11/25/18 06:48 INR, PTT INR 1.02 (0.83-1.09) 11/22/18 00:10 Problem List - Problems (1) GIB (gastrointestinal bleeding) Code(s): K92.2 - GASTROINTESTINAL HEMORRHAGE, UNSPECIFIED Qualifiers: GI bleed type/associated pathology: unspecified gastrointestinal hemorrhage type Qualified Code(s): K92.2 - Gastrointestinal hemorrhage, unspecified (2) CKD (chronic kidney disease) Code(s): N18.9 - CHRONIC KIDNEY DISEASE, UNSPECIFIED Qualifiers: Chronic kidney disease stage: on chronic dialysis Qualified Code(s): N18.6 - End stage renal disease; Z99.2 - Dependence on renal dialysis Assessment/Plan Current Medications Generic Name Dose Route Start Last Admin Trade Name Freq PRN Reason Stop Dose Admin Levothyroxine Sodium 94 mcg 11/22/18 10:00 10/06/19 09:28 Synthroid Injection - IVPUSH Not Given DAILY [facility] Lorazepam 0.5 mg 11/28/18 12:08 Ativan Injection - IM TID PRN ANXIETY Metoprolol Tartrate 5 mg 11/22/18 22:27 Lopressor Injection - IVPUSH Q4H PRN TACHYCARDIA (HR > 110 BPM) Pantoprazole Sodium 40 mg 11/22/18 10:00 11/27/18 21:19 Protonix Iv IVPUSH Not Given BID [facility] Impression 1. CKD 2. right renal cyst 3. lucero 4. hypothryoid 5. dementia 6. parkinsons 7. HTN 8. gout 9. uremia 10. anemia 11. GI bleed Plan - renal function is stable - psych input appreciated - gi follow up - monitor hg - avoid nsaids - avoid nephrotoxins
--- NOTE | 2018-11-28 16:35 | PN ---
Progress Note (short form) - Note Progress Note: GI chart review Spoke to RN - IV access just reobtained Two physician consent required for endoscopy Would tentatively plan for EGD tomorrow - request that primary team arrange for 2PC
[2018-11-28] MEDS: amLODIPine BESYLATE 10 MG TABLET (FP) PO SCH (16:40)
[2018-11-28] MEDS: ALBUTEROL SO4 0.083% IH SOL 2.5 MG/3 ML VIAL.NEB. NEB SCH (20:41)
[2018-11-29] MEDS: ALBUTEROL SO4 0.083% IH SOL 2.5 MG/3 ML VIAL.NEB. NEB SCH ×4 (07:35→20:30)
[2018-11-29] MEDS: amLODIPine BESYLATE 10 MG TABLET (FP) PO SCH (08:25)
--- NOTE | 2018-11-29 09:01 | PN ---
Progress Note, Physician - Current Medication List Current Medications: Active Medications Albuterol Sulfate (Ventolin 0.083% Nebulizer Soln -) 1 amp NEB RQID [facility] Last Admin: 11/29/18 07:35 Dose: Not Given Amlodipine Besylate (Norvasc -) 10 mg PO DAILY [facility] Last Admin: 11/29/18 08:25 Dose: 10 mg Levothyroxine Sodium (Synthroid Injection -) 94 mcg IVPUSH DAILY [facility] Last Admin: 11/28/18 10:44 Dose: Not Given Lorazepam (Ativan Injection -) 0.5 mg IM TID PRN PRN Reason: ANXIETY Metoprolol Tartrate (Lopressor Injection -) 5 mg IVPUSH Q4H PRN PRN Reason: TACHYCARDIA (HR > 110 BPM) Last Admin: 11/28/18 14:00 Dose: 5 mg Pantoprazole Sodium (Protonix Iv) 40 mg IVPUSH BID [facility] Last Admin: 11/28/18 22:36 Dose: 40 mg - Objective Vital Signs: Vital Signs Temperature 97.8 F 11/29/18 02:00 Pulse Rate 58 L 11/29/18 06:00 Respiratory Rate 20 11/29/18 06:00 Blood Pressure 189/73 H 11/29/18 06:00 O2 Sat by Pulse Oximetry (%) 99 11/28/18 21:00 Cardiovascular: Yes: S1, S2 Respiratory: Yes: Regular, CTA Bilaterally Gastrointestinal: Yes: Normal Bowel Sounds, Soft. No: Tenderness Labs: CBC, BMP 11/25/18 06:48 11/25/18 06:48 INR, PTT INR 1.02 (0.83-1.09) 11/22/18 00:10 Assessment/Plan (1) GIB (gastrointestinal bleeding) Assessment/Plan: -GI consult -s/p PRBC transfusion -Stool OB positive -Pantoprazole -Clear liquid Code(s): K92.2 - GASTROINTESTINAL HEMORRHAGE, UNSPECIFIED Qualifiers: GI bleed type/associated pathology: unspecified gastrointestinal hemorrhage type Qualified Code(s): K92.2 - Gastrointestinal hemorrhage, unspecified (2) Anemia Assessment/Plan: -GI consult -s/p PRBC transfusion -Stool OB positive -Pantoprazole -Clear liquid diet -EGD+Colonoscopy with 2 physician consent -NPO -Bowel prep Code(s): D64.9 - ANEMIA, UNSPECIFIED Qualifiers: Anemia type: unspecified type Qualified Code(s): D64.9 - Anemia, unspecified (3) CHF (congestive heart failure) Assessment/Plan: -1L fluid restriction -daily weights Code(s): I50.9 - HEART FAILURE, UNSPECIFIED (4) CKD (chronic kidney disease) Assessment/Plan: -Renal consult -monitor renal function daily for downtrend Code(s): N18.9 - CHRONIC KIDNEY DISEASE, UNSPECIFIED Qualifiers: Chronic kidney disease stage: on chronic dialysis Qualified Code(s): N18.6 - End stage renal disease; Z99.2 - Dependence on renal dialysis (5) HTN (hypertension) Assessment/Plan: -monitor BP -Lopressor 5mg IVP prn for HR >110bpm Code(s): I10 - ESSENTIAL (PRIMARY) HYPERTENSION (6) Hypothyroid Assessment/Plan: -Levothyroxine Code(s): E03.9 - HYPOTHYROIDISM, UNSPECIFIED
[2018-11-29] MEDS: LEVOTHYROXINE SODIUM 100 MCG VIAL IVPUSH SCH (09:58)
[2018-11-29] MEDS: PANTOPRAZOLE SODIUM 40 MG VIAL IVPUSH SCH ×2 (09:58→22:04)
--- NOTE | 2018-11-29 10:08 | PN ---
Progress Note (short form) - Note Progress Note: Had D/W risk management who reviewed case who in turn discussed case with Dr. Pierce. Not clear that two physician consent in this setting is not proper way of obtaining consent as patient is not in extremis. She remains hemodynamically stable without active bleeding. Will likely need ethics evaluation and discussion with caregivers at her custodial as to who her decision maker will be. Deferring endoscopy for now. Continue supportive measures.
[2018-11-29 12:06] LABS: BASO % 1.4 % (0-2.0); EOS % 3.4 % (0-4.5); HEMATOCRIT 26.3 % (32.4-45.2); HEMOGLOBIN 8.9 GM/dL (10.7-15.3); LYMPH % 16.1 % (8-40); MCH 30.6 pg (25.7-33.7); MCHC 33.7 g/dl (32.0-36.0); MEAN CELL VOLUME 90.6 fl (80-96); MEAN PLT VOLUME 7.8 fl (7.5-11.1); MONO % 8.2 % (3.8-10.2); NEUT % 70.9 % (42.8-82.8); PLATELET COUNT 518 K/MM3 (134-434); RDW 15.6 % (11.6-15.6); WHITE BLOOD COUNT 7.9 K/mm3 (4.0-10.0)
[2018-11-29 12:37] LABS: ALBUMIN 2.9 g/dl (3.4-5.0); BILIRUBIN,TOTAL 0.6 mg/dL (0.2-1); BLOOD UREA NITROGEN 48.4 mg/dL (7-18); CALCIUM 8.9 mg/dL (8.5-10.1); CREATININE 1.9 mg/dL (0.55-1.3); POTASSIUM 4.1 mmol/L (3.5-5.1); TOT PROT 6.2 g/dl (6.4-8.2)
--- NOTE | 2018-11-29 14:09 | PN ---
Progress Note, Physician History of Present Illness: Pt seen and examined at bedside. She is awake and appears comfortable. - Current Medication List Current Medications: Active Medications Albuterol Sulfate (Ventolin 0.083% Nebulizer Soln -) 1 amp NEB RQID [facility] Last Admin: 11/29/18 11:15 Dose: 1 amp Amlodipine Besylate (Norvasc -) 10 mg PO DAILY [facility] Last Admin: 11/29/18 08:25 Dose: 10 mg Levothyroxine Sodium (Synthroid Injection -) 94 mcg IVPUSH DAILY [facility] Last Admin: 11/29/18 09:58 Dose: 94 mcg Lorazepam (Ativan Injection -) 0.5 mg IM TID PRN PRN Reason: ANXIETY Metoprolol Tartrate (Lopressor Injection -) 5 mg IVPUSH Q4H PRN PRN Reason: TACHYCARDIA (HR > 110 BPM) Last Admin: 11/28/18 14:00 Dose: 5 mg Pantoprazole Sodium (Protonix Iv) 40 mg IVPUSH BID [facility] Last Admin: 11/29/18 09:58 Dose: 40 mg - Objective Vital Signs: Vital Signs Temperature 98.6 F 11/29/18 13:59 Pulse Rate 58 L 11/29/18 13:59 Respiratory Rate 16 11/29/18 13:59 Blood Pressure 151/82 11/29/18 13:59 O2 Sat by Pulse Oximetry (%) 98 11/29/18 09:00 Constitutional: Yes: Calm Eyes: Yes: Conjunctiva Clear HENT: Yes: Atraumatic Neck: Yes: Supple Cardiovascular: Yes: S1, S2 Respiratory: Yes: CTA Bilaterally Gastrointestinal: Yes: Normal Bowel Sounds, Soft Genitourinary: Yes: WNL Musculoskeletal: Yes: WNL Edema: No Neurological: Yes: Confusion Labs: CBC, BMP 11/29/18 11:25 11/29/18 11:25 INR, PTT INR 1.02 (0.83-1.09) 11/22/18 00:10 Problem List - Problems (1) GIB (gastrointestinal bleeding) Code(s): K92.2 - GASTROINTESTINAL HEMORRHAGE, UNSPECIFIED Qualifiers: GI bleed type/associated pathology: unspecified gastrointestinal hemorrhage type Qualified Code(s): K92.2 - Gastrointestinal hemorrhage, unspecified (2) CKD (chronic kidney disease) Code(s): N18.9 - CHRONIC KIDNEY DISEASE, UNSPECIFIED Qualifiers: Chronic kidney disease stage: on chronic dialysis Qualified Code(s): N18.6 - End stage renal disease; Z99.2 - Dependence on renal dialysis Assessment/Plan Current Medications Generic Name Dose Route Start Last Admin Trade Name Freq PRN Reason Stop Dose Admin Albuterol Sulfate 1 amp 11/28/18 20:00 11/29/18 11:15 Ventolin 0.083% Nebulizer Soln - NEB 1 amp RQID [facility] Administration Amlodipine Besylate 10 mg 11/28/18 16:15 11/29/18 08:25 Norvasc - PO 10 mg DAILY [facility] Administration Levothyroxine Sodium 94 mcg 11/22/18 10:00 11/29/18 09:58 Synthroid Injection - IVPUSH 94 mcg DAILY [facility] Administration Lorazepam 0.5 mg 11/28/18 12:08 Ativan Injection - IM TID PRN ANXIETY Metoprolol Tartrate 5 mg 11/22/18 22:27 11/28/18 14:00 Lopressor Injection - IVPUSH 5 mg Q4H PRN Administration TACHYCARDIA (HR > 110 BPM) Pantoprazole Sodium 40 mg 11/22/18 10:00 11/29/18 09:58 Protonix Iv IVPUSH 40 mg BID [facility] Administration Impression 1. CKD 2. right renal cyst 3. lucero 4. hypothryoid 5. dementia 6. parkinsons 7. HTN 8. gout 9. uremia 10. anemia 11. GI bleed Plan - renal function stable - GI note appreciated - pt refusing endoscopy - monitor hg - avoid nsaids - avoid nephrotoxins
--- NOTE | 2018-11-29 15:08 | PN.GI ---
GI Progress Note Subjective: Discussion with risk management as outlined earlier today No overt bleeding Patient non-verbal with me today, when asked questions seemed to just wave me away. - Objective Vital Signs: Vital Signs Temperature 98.6 F 11/29/18 13:59 Pulse Rate 58 L 11/29/18 13:59 Respiratory Rate 16 11/29/18 13:59 Blood Pressure 151/82 11/29/18 13:59 O2 Sat by Pulse Oximetry (%) 98 11/29/18 09:00 Constitutional: Calm Eyes: No: Sclera Icterus Cardiovascular: Yes: Bradycardia Respiratory: Yes: Diminished (at bases bilaterally) Gastrointestinal Inspection: No: Distention ...Auscultate: Yes: Normoactive Bowel Sounds ...Palpate: No: Hepatomegaly, Splenomegaly, Tenderness Labs: CBC, BMP 11/29/18 11:25 11/29/18 11:25 INR, PTT INR 1.02 (0.83-1.09) 11/22/18 00:10 Problem List - Problems (1) GIB (gastrointestinal bleeding) Assessment/Plan: Chronic episodic anemia and melenic events. Patient has refused in the past, been deemed competent in the past, currently deemed to not have decision making capacity. She did not talk to me today and seemed to wave me away with her eyes closed while I asked her questions. Daughter cannot be reached. Spoke with risk management today. there is still concern regarding consent and an ethics consult was advised. I spoke with Ms. Colon' nurse who was going to inform Dr. Green of this recommendation. Contonue supportive measures for now, BID PPI. Code(s): K92.2 - GASTROINTESTINAL HEMORRHAGE, UNSPECIFIED Qualifiers: GI bleed type/associated pathology: unspecified gastrointestinal hemorrhage type Qualified Code(s): K92.2 - Gastrointestinal hemorrhage, unspecified
[2018-11-30] MEDS: ALBUTEROL SO4 0.083% IH SOL 2.5 MG/3 ML VIAL.NEB. NEB SCH ×4 (08:18→20:20)
--- NOTE | 2018-11-30 08:29 | PN ---
Progress Note, Physician - Current Medication List Current Medications: Active Medications Albuterol Sulfate (Ventolin 0.083% Nebulizer Soln -) 1 amp NEB RQID [facility] Last Admin: 11/30/18 08:18 Dose: 1 amp Amlodipine Besylate (Norvasc -) 10 mg PO DAILY [facility] Last Admin: 11/29/18 08:25 Dose: 10 mg Levothyroxine Sodium (Synthroid Injection -) 94 mcg IVPUSH DAILY [facility] Last Admin: 11/29/18 09:58 Dose: 94 mcg Lorazepam (Ativan Injection -) 0.5 mg IM TID PRN PRN Reason: ANXIETY Metoprolol Tartrate (Lopressor Injection -) 5 mg IVPUSH Q4H PRN PRN Reason: TACHYCARDIA (HR > 110 BPM) Last Admin: 11/28/18 14:00 Dose: 5 mg Pantoprazole Sodium (Protonix Iv) 40 mg IVPUSH BID [facility] Last Admin: 11/29/18 22:04 Dose: 40 mg - Objective Vital Signs: Vital Signs Temperature 98.1 F 11/30/18 05:00 Pulse Rate 68 11/30/18 05:00 Respiratory Rate 20 11/30/18 05:00 Blood Pressure 174/68 H 11/30/18 05:00 O2 Sat by Pulse Oximetry (%) 98 11/29/18 21:00 Cardiovascular: Yes: Regular Rate and Rhythm Respiratory: Yes: Regular, CTA Bilaterally Gastrointestinal: Yes: Normal Bowel Sounds, Soft Labs: CBC, BMP 11/29/18 11:25 11/29/18 11:25 INR, PTT INR 1.02 (0.83-1.09) 11/22/18 00:10 Assessment/Plan (1) GIB (gastrointestinal bleeding) Assessment/Plan: -GI consult noted--endoscopy cancelled--ethics -s/p PRBC transfusion -Stool OB positive -Pantoprazole -Clear liquid Code(s): K92.2 - GASTROINTESTINAL HEMORRHAGE, UNSPECIFIED Qualifiers: GI bleed type/associated pathology: unspecified gastrointestinal hemorrhage type Qualified Code(s): K92.2 - Gastrointestinal hemorrhage, unspecified (2) Anemia Assessment/Plan: -GI consult -s/p PRBC transfusion -Stool OB positive -Pantoprazole -Clear liquid diet -EGD+Colonoscopy with 2 physician consent--cancelled--ethics -NPO -Bowel prep Code(s): D64.9 - ANEMIA, UNSPECIFIED Qualifiers: Anemia type: unspecified type Qualified Code(s): D64.9 - Anemia, unspecified (3) CHF (congestive heart failure) Assessment/Plan: -1L fluid restriction -daily weights Code(s): I50.9 - HEART FAILURE, UNSPECIFIED (4) CKD (chronic kidney disease) Assessment/Plan: -Renal consult -monitor renal function daily for downtrend Code(s): N18.9 - CHRONIC KIDNEY DISEASE, UNSPECIFIED Qualifiers: Chronic kidney disease stage: on chronic dialysis Qualified Code(s): N18.6 - End stage renal disease; Z99.2 - Dependence on renal dialysis (5) HTN (hypertension) Assessment/Plan: -monitor BP -Lopressor 5mg IVP prn for HR >110bpm Code(s): I10 - ESSENTIAL (PRIMARY) HYPERTENSION (6) Hypothyroid Assessment/Plan: -Levothyroxine Code(s): E03.9 - HYPOTHYROIDISM, UNSPECIFIED
--- NOTE | 2018-11-30 10:06 | PN ---
Progress Note (short form) - Note Progress Note: Ethics A recommendation was made for ethics consultation because a recent evaluation by stated that the patient did not have the capacity to make medical decisions. The attending physician and GI physician have recommended that EGD be performed because of severe bleeding on a recurring basis requiring 2 units of packed cells on this admission due to a hemoglobin of 4.3 Gm. There are several notations by the treating physicians that they have been unable to get any response from a daughter after several attempts with the listed phone number : [phone]. I have also spoken to the friend Maegan at [phone] who told me that she has not seen or spoken to the daughter for years since the patient's brother . She also told me that the patient herself has been unable to contact the daughter. I Rec: Social Service do a more intensive search for the daughter including records at [facility]. If that search is unrewarding then a discussion of 2 treating MD's deciding can be addressed. In any case the patient may resist having the procedure even if not considered having medical decision making ability. At that point it could not be forced on her without some legal input.
[2018-11-30] MEDS: PANTOPRAZOLE SODIUM 40 MG VIAL IVPUSH SCH ×2 (10:14→22:26)
[2018-11-30] MEDS: amLODIPine BESYLATE 10 MG TABLET (FP) PO SCH (10:14)
[2018-11-30] MEDS: LEVOTHYROXINE SODIUM 100 MCG VIAL IVPUSH SCH (10:18)
[2018-11-30] MEDS ORDERED: PT OWN MED DRAWER 7, Y5N ONE (10:18)
--- NOTE | 2018-11-30 13:45 | PN ---
Progress Note, Physician History of Present Illness: Pt seen and examined at bedside. SHe remain confused. She denies shortness of breath. - Current Medication List Current Medications: Active Medications Albuterol Sulfate (Ventolin 0.083% Nebulizer Soln -) 1 amp [facility]B [facility] Last Admin: 11/30/18 11:11 Dose: Not Given Amlodipine Besylate (Norvasc -) 10 mg PO DAILY [facility] Last Admin: 11/30/18 10:14 Dose: 10 mg Levothyroxine Sodium (Synthroid Injection -) 94 mcg IVPUSH DAILY [facility] Last Admin: 11/30/18 10:18 Dose: 94 mcg Lorazepam (Ativan Injection -) 0.5 mg IM TID PRN PRN Reason: ANXIETY Metoprolol Tartrate (Lopressor Injection -) 5 mg IVPUSH Q4H PRN PRN Reason: TACHYCARDIA (HR > 110 BPM) Last Admin: 11/28/18 14:00 Dose: 5 mg Pantoprazole Sodium (Protonix Iv) 40 mg IVPUSH BID [facility] Last Admin: 11/30/18 10:14 Dose: 40 mg - Objective Vital Signs: Vital Signs Temperature 98.1 F 11/30/18 05:00 Pulse Rate 68 11/30/18 05:00 Respiratory Rate 20 11/30/18 05:00 Blood Pressure 174/68 H 11/30/18 05:00 O2 Sat by Pulse Oximetry (%) 98 11/29/18 21:00 Constitutional: Yes: Calm Eyes: Yes: Conjunctiva Clear Cardiovascular: Yes: S1, S2 Respiratory: Yes: CTA Bilaterally Gastrointestinal: Yes: Soft ...Rectal Exam: Yes: WNL Genitourinary: Yes: Incontinence Extremities: Yes: WNL Neurological: Yes: Confusion Labs: CBC, BMP 11/29/18 11:25 11/29/18 11:25 INR, PTT INR 1.02 (0.83-1.09) 11/22/18 00:10 Problem List - Problems (1) GIB (gastrointestinal bleeding) Code(s): K92.2 - GASTROINTESTINAL HEMORRHAGE, UNSPECIFIED Qualifiers: GI bleed type/associated pathology: unspecified gastrointestinal hemorrhage type Qualified Code(s): K92.2 - Gastrointestinal hemorrhage, unspecified (2) CKD (chronic kidney disease) Code(s): N18.9 - CHRONIC KIDNEY DISEASE, UNSPECIFIED Qualifiers: Chronic kidney disease stage: on chronic dialysis Qualified Code(s): N18.6 - End stage renal disease; Z99.2 - Dependence on renal dialysis Assessment/Plan Current Medications Generic Name Dose Route Start Last Admin Trade Name Freq PRN Reason Stop Dose Admin Albuterol Sulfate 1 amp 11/28/18 20:00 11/30/18 11:11 Ventolin 0.083% Nebulizer Soln - NEB Not Given RQID [facility] Amlodipine Besylate 10 mg 11/28/18 16:15 11/30/18 10:14 Norvasc - PO 10 mg DAILY [facility] Administration Levothyroxine Sodium 94 mcg 11/22/18 10:00 11/30/18 10:18 Synthroid Injection - IVPUSH 94 mcg DAILY [facility] Administration Lorazepam 0.5 mg 11/28/18 12:08 Ativan Injection - IM TID PRN ANXIETY Metoprolol Tartrate 5 mg 11/22/18 22:27 11/28/18 14:00 Lopressor Injection - IVPUSH 5 mg Q4H PRN Administration TACHYCARDIA (HR > 110 BPM) Pantoprazole Sodium 40 mg 11/22/18 10:00 11/30/18 10:14 Protonix Iv IVPUSH 40 mg BID [facility] Administration Impression 1. CKD 2. right renal cyst 3. lucero 4. hypothryoid 5. dementia 6. parkinsons 7. HTN 8. gout 9. uremia 10. anemia 11. GI bleed Plan - monitor hg - renal function stable - ethics input appreciated - avoid nsaids - avoid nephrotoxins
[2018-12-01] MEDS: ALBUTEROL SO4 0.083% IH SOL 2.5 MG/3 ML VIAL.NEB. NEB SCH ×4 (07:44→20:15)
[2018-12-01] MEDS: LEVOTHYROXINE SODIUM 100 MCG VIAL IVPUSH SCH (09:59)
[2018-12-01] MEDS: PANTOPRAZOLE SODIUM 40 MG VIAL IVPUSH SCH ×2 (09:59→22:18)
[2018-12-01] MEDS: amLODIPine BESYLATE 10 MG TABLET (FP) PO SCH (10:00)
--- NOTE | 2018-12-01 13:16 | PN ---
Progress Note, Physician Chief Complaint: patient seen and examined awake confused ethics on board - Current Medication List Current Medications: Active Medications Albuterol Sulfate (Ventolin 0.083% Nebulizer Soln -) 1 amp NEB RQID [facility] Last Admin: 12/01/18 11:31 Dose: 1 amp Amlodipine Besylate (Norvasc -) 10 mg PO DAILY [facility] Last Admin: 12/01/18 10:00 Dose: 10 mg Levothyroxine Sodium (Synthroid Injection -) 94 mcg IVPUSH DAILY [facility] Last Admin: 12/01/18 09:59 Dose: 94 mcg Metoprolol Tartrate (Lopressor Injection -) 5 mg IVPUSH Q4H PRN PRN Reason: TACHYCARDIA (HR > 110 BPM) Last Admin: 11/28/18 14:00 Dose: 5 mg Pantoprazole Sodium (Protonix Iv) 40 mg IVPUSH BID [facility] Last Admin: 12/01/18 09:59 Dose: 40 mg - Objective Vital Signs: Vital Signs Temperature 97.5 F L 12/01/18 06:00 Pulse Rate 58 L 12/01/18 10:00 Respiratory Rate 20 12/01/18 10:00 Blood Pressure 135/60 12/01/18 10:00 O2 Sat by Pulse Oximetry (%) 100 12/01/18 08:37 Constitutional: Yes: Calm, Thin Cardiovascular: Yes: Regular Rate and Rhythm, S1, S2 Respiratory: Yes: CTA Bilaterally Gastrointestinal: Yes: Normal Bowel Sounds, Soft Edema: No Labs: CBC, BMP 11/29/18 11:25 11/29/18 11:25 INR, PTT INR 1.02 (0.83-1.09) 11/22/18 00:10 Problem List - Problems (1) GIB (gastrointestinal bleeding) Assessment/Plan: appreciate GI and ethics eval psych eval for competency-seen by ethics will recall psych again to check competency iv protonix bid regular diet Code(s): K92.2 - GASTROINTESTINAL HEMORRHAGE, UNSPECIFIED Qualifiers: GI bleed type/associated pathology: unspecified gastrointestinal hemorrhage type Qualified Code(s): K92.2 - Gastrointestinal hemorrhage, unspecified (2) Hypothyroid Assessment/Plan: on iv synthroid Code(s): E03.9 - HYPOTHYROIDISM, UNSPECIFIED
--- NOTE | 2018-12-01 14:22 | PN ---
Progress Note (short form) - Note Progress Note: Patient seen again for Psych eval to determine capacity to make decisions for Medical Care. ms: Alert, confused, disoriented, unable to comprehend. unable to understand whats being said to her. easily agitated.. REC: Patient lacks functional capacity to make medical decisions at this time.
--- NOTE | 2018-12-01 15:30 | PN ---
Progress Note, Physician History of Present Illness: Pt seen and examined at bedside. She appears comfortable. She denies shortness of breath. - Current Medication List Current Medications: Active Medications Albuterol Sulfate (Ventolin 0.083% Nebulizer Soln -) 1 amp NEB RQID [facility] Last Admin: 12/01/18 11:31 Dose: 1 amp Amlodipine Besylate (Norvasc -) 10 mg PO DAILY [facility] Last Admin: 12/01/18 10:00 Dose: 10 mg Levothyroxine Sodium (Synthroid Injection -) 94 mcg IVPUSH DAILY [facility] Last Admin: 12/01/18 09:59 Dose: 94 mcg Metoprolol Tartrate (Lopressor Injection -) 5 mg IVPUSH Q4H PRN PRN Reason: TACHYCARDIA (HR > 110 BPM) Last Admin: 11/28/18 14:00 Dose: 5 mg Pantoprazole Sodium (Protonix Iv) 40 mg IVPUSH BID [facility] Last Admin: 12/01/18 09:59 Dose: 40 mg - Objective Vital Signs: Vital Signs Temperature 97.5 F L 12/01/18 06:00 Pulse Rate 58 L 12/01/18 10:00 Respiratory Rate 20 12/01/18 10:00 Blood Pressure 135/60 12/01/18 10:00 O2 Sat by Pulse Oximetry (%) 100 12/01/18 08:37 Constitutional: Yes: Calm Eyes: Yes: Conjunctiva Clear HENT: Yes: Atraumatic Neck: Yes: Supple Cardiovascular: Yes: S1, S2 Respiratory: Yes: CTA Bilaterally Gastrointestinal: Yes: Normal Bowel Sounds, Soft Genitourinary: Yes: Incontinence Musculoskeletal: Yes: Muscle Weakness Edema: No Neurological: Yes: Confusion Psychiatric: Yes: Oriented Labs: CBC, BMP 11/29/18 11:25 11/29/18 11:25 INR, PTT INR 1.02 (0.83-1.09) 11/22/18 00:10 Problem List - Problems (1) GIB (gastrointestinal bleeding) Code(s): K92.2 - GASTROINTESTINAL HEMORRHAGE, UNSPECIFIED Qualifiers: GI bleed type/associated pathology: unspecified gastrointestinal hemorrhage type Qualified Code(s): K92.2 - Gastrointestinal hemorrhage, unspecified (2) CKD (chronic kidney disease) Code(s): N18.9 - CHRONIC KIDNEY DISEASE, UNSPECIFIED Qualifiers: Chronic kidney disease stage: on chronic dialysis Qualified Code(s): N18.6 - End stage renal disease; Z99.2 - Dependence on renal dialysis Assessment/Plan Current Medications Generic Name Dose Route Start Last Admin Trade Name Freq PRN Reason Stop Dose Admin Albuterol Sulfate 1 amp 11/28/18 20:00 12/01/18 11:31 Ventolin 0.083% Nebulizer Soln - NEB 1 amp RQID [facility] Administration Amlodipine Besylate 10 mg 11/28/18 16:15 12/01/18 10:00 Norvasc - PO 10 mg DAILY [facility] Administration Levothyroxine Sodium 94 mcg 11/22/18 10:00 12/01/18 09:59 Synthroid Injection - IVPUSH 94 mcg DAILY [facility] Administration Metoprolol Tartrate 5 mg 11/22/18 22:27 11/28/18 14:00 Lopressor Injection - IVPUSH 5 mg Q4H PRN Administration TACHYCARDIA (HR > 110 BPM) Pantoprazole Sodium 40 mg 11/22/18 10:00 12/01/18 09:59 Protonix Iv IVPUSH 40 mg BID [facility] Administration Impression 1. CKD 2. right renal cyst 3. lucero 4. hypothryoid 5. dementia 6. parkinsons 7. HTN 8. gout 9. uremia 10. anemia 11. GI bleed Plan - check cbc - check bmp - pt refusing intervention, ethics involved - avoid nsaids - avoid nephrotoxins
[2018-12-02] MEDS ORDERED: ACETAMINOPHEN 325 MG TABLET (FP) ONE (01:14)
[2018-12-02] MEDS: ALBUTEROL SO4 0.083% IH SOL 2.5 MG/3 ML VIAL.NEB. NEB SCH ×2 (07:40→11:25)
[2018-12-02] MEDS ORDERED: PT OWN MED DRAWER 7, Y5N ONE ×3 (09:32→22:09)
[2018-12-02] MEDS: LEVOTHYROXINE SODIUM 100 MCG VIAL IVPUSH SCH (10:25)
[2018-12-02] MEDS: amLODIPine BESYLATE 10 MG TABLET (FP) PO SCH (10:26)
[2018-12-02] MEDS: PANTOPRAZOLE SODIUM 40 MG VIAL IVPUSH SCH (10:26)
--- NOTE | 2018-12-02 13:41 | PN ---
Progress Note (short form) - Note Progress Note: Reviewed Dr. Callejas's ethics not and appreciate input. When there has been adequate clarification as who will be decision making and Ms. Colon is willing to undergo testing, please recall GI. Problem List - Problems (1) GIB (gastrointestinal bleeding) Code(s): K92.2 - GASTROINTESTINAL HEMORRHAGE, UNSPECIFIED Qualifiers: GI bleed type/associated pathology: unspecified gastrointestinal hemorrhage type Qualified Code(s): K92.2 - Gastrointestinal hemorrhage, unspecified
--- NOTE | 2018-12-02 14:47 | PN ---
Progress Note, Physician History of Present Illness: Pt seen and examined at bedside. She remains confused. - Current Medication List Current Medications: Active Medications Albuterol Sulfate (Ventolin 0.083% Nebulizer Soln -) 1 amp NEB RQID [facility] Last Admin: 12/02/18 11:25 Dose: 1 amp Amlodipine Besylate (Norvasc -) 10 mg PO DAILY [facility] Last Admin: 12/02/18 10:26 Dose: 10 mg Levothyroxine Sodium (Synthroid Injection -) 94 mcg IVPUSH DAILY [facility] Last Admin: 12/02/18 10:25 Dose: 94 mcg Metoprolol Tartrate (Lopressor Injection -) 5 mg IVPUSH Q4H PRN PRN Reason: TACHYCARDIA (HR > 110 BPM) Last Admin: 11/28/18 14:00 Dose: 5 mg Pantoprazole Sodium (Protonix Iv) 40 mg IVPUSH BID [facility] Last Admin: 12/02/18 10:26 Dose: 40 mg - Objective Vital Signs: Vital Signs Temperature 98 F 12/02/18 09:00 Pulse Rate 70 12/02/18 09:00 Respiratory Rate 18 12/02/18 09:00 Blood Pressure 144/68 12/02/18 09:00 O2 Sat by Pulse Oximetry (%) 98 12/02/18 09:00 Constitutional: Yes: Calm Eyes: Yes: Conjunctiva Clear HENT: Yes: Atraumatic Neck: Yes: Supple Cardiovascular: Yes: S1, S2 Respiratory: Yes: CTA Bilaterally Gastrointestinal: Yes: Normal Bowel Sounds, Soft Genitourinary: Yes: Incontinence Musculoskeletal: Yes: WNL Edema: No Neurological: Yes: Confusion Labs: CBC, BMP 11/29/18 11:25 11/29/18 11:25 INR, PTT INR 1.02 (0.83-1.09) 11/22/18 00:10 Problem List - Problems (1) GIB (gastrointestinal bleeding) Code(s): K92.2 - GASTROINTESTINAL HEMORRHAGE, UNSPECIFIED Qualifiers: GI bleed type/associated pathology: unspecified gastrointestinal hemorrhage type Qualified Code(s): K92.2 - Gastrointestinal hemorrhage, unspecified (2) CKD (chronic kidney disease) Code(s): N18.9 - CHRONIC KIDNEY DISEASE, UNSPECIFIED Qualifiers: Chronic kidney disease stage: on chronic dialysis Qualified Code(s): N18.6 - End stage renal disease; Z99.2 - Dependence on renal dialysis Assessment/Plan Current Medications Generic Name Dose Route Start Last Admin Trade Name Freq PRN Reason Stop Dose Admin Albuterol Sulfate 1 amp 11/28/18 20:00 12/02/18 11:25 Ventolin 0.083% Nebulizer Soln - NEB 1 amp RQID [facility] Administration Amlodipine Besylate 10 mg 11/28/18 16:15 12/02/18 10:26 Norvasc - PO 10 mg DAILY [facility] Administration Levothyroxine Sodium 94 mcg 11/22/18 10:00 12/02/18 10:25 Synthroid Injection - IVPUSH 94 mcg DAILY [facility] Administration Metoprolol Tartrate 5 mg 11/22/18 22:27 11/28/18 14:00 Lopressor Injection - IVPUSH 5 mg Q4H PRN Administration TACHYCARDIA (HR > 110 BPM) Pantoprazole Sodium 40 mg 11/22/18 10:00 12/02/18 10:26 Protonix Iv IVPUSH 40 mg BID [facility] Administration Impression 1. CKD 2. right renal cyst 3. lucero 4. hypothryoid 5. dementia 6. parkinsons 7. HTN 8. gout 9. uremia 10. anemia 11. GI bleed Plan - check cbc and bmp if she agrees - GI input appreciated - pt refusing intervention, ethics involved - avoid nsaids - avoid nephrotoxins
--- NOTE | 2018-12-02 15:39 | PN ---
Progress Note, Physician Chief Complaint: patient seen and examined - Current Medication List Current Medications: Active Medications Amlodipine Besylate (Norvasc -) 10 mg PO DAILY [facility] Last Admin: 12/02/18 10:26 Dose: 10 mg Levothyroxine Sodium (Synthroid -) 125 mcg PO DAILY@0700 [facility] Metoprolol Tartrate (Lopressor Injection -) 5 mg IVPUSH Q4H PRN PRN Reason: TACHYCARDIA (HR > 110 BPM) Last Admin: 11/28/18 14:00 Dose: 5 mg Pantoprazole Sodium (Protonix Packets For Oral Suspension -) 40 mg PO BID [facility] - Objective Vital Signs: Vital Signs Temperature 98 F 12/02/18 09:00 Pulse Rate 70 12/02/18 09:00 Respiratory Rate 18 12/02/18 09:00 Blood Pressure 144/68 12/02/18 09:00 O2 Sat by Pulse Oximetry (%) 98 12/02/18 09:00 Constitutional: Yes: Calm, Thin Cardiovascular: Yes: Regular Rate and Rhythm, S1, S2 Respiratory: Yes: CTA Bilaterally Gastrointestinal: Yes: Normal Bowel Sounds, Soft Edema: No Psychiatric: Yes: Alert Labs: CBC, BMP 11/29/18 11:25 11/29/18 11:25 INR, PTT INR 1.02 (0.83-1.09) 11/22/18 00:10 Problem List - Problems (1) GIB (gastrointestinal bleeding) Assessment/Plan: appreciate GI and ethics eval deemed not competent by psych canot reach family member at this time,HCP or guardian plan for ethics meeting to further decide plan of care monitor h/h Code(s): K92.2 - GASTROINTESTINAL HEMORRHAGE, UNSPECIFIED Qualifiers: GI bleed type/associated pathology: unspecified gastrointestinal hemorrhage type Qualified Code(s): K92.2 - Gastrointestinal hemorrhage, unspecified (2) Hypothyroid Assessment/Plan: po synthroid Code(s): E03.9 - HYPOTHYROIDISM, UNSPECIFIED
[2018-12-02] MEDS: PANTOPRAZOLE SOD 40 MG SUSPENSION PACKET PO SCH (22:49)
[2018-12-03] MEDS: LEVOTHYROXINE NA 125 MCG TABLET (FP) PO SCH (06:14)
[2018-12-03 08:58] LABS: BASO % 1.7 % (0-2.0); EOS % 5.6 % (0-4.5); HEMATOCRIT 23.4 % (32.4-45.2); HEMOGLOBIN 7.7 GM/dL (10.7-15.3); LYMPH % 10.1 % (8-40); MCH 29.6 pg (25.7-33.7); MCHC 33.1 g/dl (32.0-36.0); MEAN CELL VOLUME 89.4 fl (80-96); MEAN PLT VOLUME 7.5 fl (7.5-11.1); NEUT % 74.6 % (42.8-82.8); PLATELET COUNT 441 K/MM3 (134-434); RBC 2.62 M/mm3 (3.60-5.2); RDW 15.3 % (11.6-15.6); WHITE BLOOD COUNT 6.4 K/mm3 (4.0-10.0)
[2018-12-03 09:23] LABS: BLOOD UREA NITROGEN 51.2 mg/dL (7-18); CALCIUM 8.6 mg/dL (8.5-10.1); POTASSIUM 4.4 mmol/L (3.5-5.1)
[2018-12-03] MEDS ORDERED: PT OWN MED DRAWER 7, Y5N ONE (09:28)
[2018-12-03] MEDS: amLODIPine BESYLATE 10 MG TABLET (FP) PO SCH (09:57)
[2018-12-03] MEDS: PANTOPRAZOLE SOD 40 MG SUSPENSION PACKET PO SCH ×2 (09:57→22:48)
--- NOTE | 2018-12-03 16:13 | PN ---
Progress Note, Physician Chief Complaint: PATIENT WILL NEED EGD READING HER NOTES AT [facility] NO NEXT OF KIN VISITS OR TALKS TO PATIENT DAUGHTER HAS BEEN NON-EXISTENT IN PATIENT'S CARE. WILL DISCUSS WITH PSYCHIATRY/ETHICS COMMITTEE AND GET 2 PHYSICIAN CONSENT FOR EGD. MULTIPLE MEDICAL ADMISSIONS OVER 1 YEAR FOR GI BLEEDS AND MULTIPLE PRBC TRANSFUSIONS. BEST TX IS AN EGD AND TREAT POSSIBLE ULCER CAUSE OF BLEED/ANEMIA - Current Medication List Current Medications: Active Medications Amlodipine Besylate (Norvasc -) 10 mg PO DAILY [facility] Last Admin: 12/03/18 09:57 Dose: 10 mg Levothyroxine Sodium (Synthroid -) 125 mcg PO DAILY@0700 [facility] Last Admin: 12/03/18 06:14 Dose: 125 mcg Metoprolol Tartrate (Lopressor Injection -) 5 mg IVPUSH Q4H PRN PRN Reason: TACHYCARDIA (HR > 110 BPM) Last Admin: 11/28/18 14:00 Dose: 5 mg Pantoprazole Sodium (Protonix Packets For Oral Suspension -) 40 mg PO BID [facility] Last Admin: 12/03/18 09:57 Dose: 40 mg - Objective Vital Signs: Vital Signs Temperature 98 F 12/03/18 14:18 Pulse Rate 59 L 12/03/18 14:18 Respiratory Rate 18 12/03/18 14:18 Blood Pressure 149/59 L 12/03/18 14:18 O2 Sat by Pulse Oximetry (%) 96 12/02/18 21:00 Constitutional: Yes: No Distress Cardiovascular: Yes: Regular Rate and Rhythm Respiratory: Yes: WNL Gastrointestinal: Yes: Soft Genitourinary: Yes: Incontinence Musculoskeletal: Yes: Muscle Weakness Edema: No Neurological: Yes: Confusion, Pre-Existing Deficit Psychiatric: Yes: Other Labs: CBC, BMP 12/03/18 07:49 12/03/18 07:49 INR, PTT INR 1.02 (0.83-1.09) 11/22/18 00:10 Problem List - Problems (1) GIB (gastrointestinal bleeding) Code(s): K92.2 - GASTROINTESTINAL HEMORRHAGE, UNSPECIFIED Qualifiers: GI bleed type/associated pathology: unspecified gastrointestinal hemorrhage type Qualified Code(s): K92.2 - Gastrointestinal hemorrhage, unspecified (2) Hypothyroid Code(s): E03.9 - HYPOTHYROIDISM, UNSPECIFIED (3) Anemia Code(s): D64.9 - ANEMIA, UNSPECIFIED Qualifiers: Anemia type: unspecified type Qualified Code(s): D64.9 - Anemia, unspecified (4) Arthritis Code(s): M19.90 - UNSPECIFIED OSTEOARTHRITIS, UNSPECIFIED SITE (5) COPD (chronic obstructive pulmonary disease) Code(s): J44.9 - CHRONIC OBSTRUCTIVE PULMONARY DISEASE, UNSPECIFIED (6) Failure to thrive Code(s): [id number] - (7) Low hemoglobin Code(s): D64.9 - ANEMIA, UNSPECIFIED (8) MDD (major depressive disorder) Code(s): F32.9 - MAJOR DEPRESSIVE DISORDER, SINGLE EPISODE, UNSPECIFIED (9) Severe protein-calorie malnutrition Code(s): E43 - UNSPECIFIED SEVERE PROTEIN-CALORIE MALNUTRITION Assessment/Plan LACKS COMPETENCY TO MAKE DECISIONS WILL GET 2 PHYSICIAN CONSENT FOR EGD. GI PREPARE FOR EGD WEDNESDAY. TRANSFUSE PRBC NEEDED CHECK LABS
--- NOTE | 2018-12-03 20:29 | PN ---
Progress Note (short form) - Note Progress Note: gibleed anemia lucero ckd Current Medications Amlodipine Besylate (Norvasc -) 10 mg PO DAILY [facility] Last Admin: 12/03/18 09:57 Dose: 10 mg Levothyroxine Sodium (Synthroid -) 125 mcg PO DAILY@0700 [facility] Last Admin: 12/03/18 06:14 Dose: 125 mcg Metoprolol Tartrate (Lopressor Injection -) 5 mg IVPUSH Q4H PRN PRN Reason: TACHYCARDIA (HR > 110 BPM) Last Admin: 11/28/18 14:00 Dose: 5 mg Pantoprazole Sodium (Protonix Packets For Oral Suspension -) 40 mg PO BID [facility] Last Admin: 12/03/18 09:57 Dose: 40 mg Last Vital Signs Temp Pulse Resp BP Pulse Ox 98.3 F 65 20 143/57 L 96 12/03/18 17:00 12/03/18 17:00 12/03/18 17:00 12/03/18 17:00 12/02/18 21:00 CBC, BMP 12/03/18 07:49 12/03/18 07:49
[2018-12-04] MEDS: LEVOTHYROXINE NA 125 MCG TABLET (FP) PO SCH (06:27)
[2018-12-04 06:57] LABS: HEMATOCRIT 25.6 % (32.4-45.2); HEMOGLOBIN 8.5 GM/dL (10.7-15.3); MCH 29.6 pg (25.7-33.7); MCHC 33.2 g/dl (32.0-36.0); MEAN CELL VOLUME 89.3 fl (80-96); MEAN PLT VOLUME 7.6 fl (7.5-11.1); PLATELET COUNT 435 K/MM3 (134-434); RBC 2.86 M/mm3 (3.60-5.2); RDW 15.2 % (11.6-15.6); WHITE BLOOD COUNT 7.7 K/mm3 (4.0-10.0)
[2018-12-04 07:26] LABS: CALCIUM 8.6 mg/dL (8.5-10.1); CREATININE 2.1 mg/dL (0.55-1.3); POTASSIUM 4.7 mmol/L (3.5-5.1)
[2018-12-04] MEDS: amLODIPine BESYLATE 10 MG TABLET (FP) PO SCH (10:23)
[2018-12-04] MEDS: PANTOPRAZOLE SOD 40 MG SUSPENSION PACKET PO SCH ×2 (10:23→22:18)
--- NOTE | 2018-12-04 12:12 | PN ---
Progress Note, Physician Chief Complaint: DISCUSSED THE CASE WITH NURSING [employer]UC[employer] TEACHER PANCHO AT [facility]. PATIENT DOES NOT HAVE A NEXT OF KIN WHO CAN BE REACHED BY PHONE AND FOR OVER 1 YEAR NO FAMILY HAS BEEN INVOLVED IN EVIE'S MEDICAL DECISIONS OR VISITED HER. EVIE HAS BEEN ADMITTED SEVERAL TIMES TO [facility] FOR WORSENING ANEMIA AND TRANSFUSED PRBC'S. PSYCHIATRY EVALUATION DEEMED HER WITHOUT CAPACITY TO MAKE DECISIONS AND ETHICS CONSULT WAS CALLED TO DETERMINE THE NEXT MEDICAL STEP IN THIS CASE. PATIENT STILL BEING TRANSFUSED WITH PRBC'S AND HER ANEMIA HAS NOT BEEN ADDRESSED BECAUSE OF HER INABILITY TO MAKE A DECISION FOR AN EGD. IF WE ARE GOING TO CONTINUE TO TREAT HER ANEMIA GI BLEED WITH HOSPITAL ADMISSIONS AND TRANSFUSIONS AN EGD IS WARRANTED TO DX/TX A POSSIBLE GI ULCER. WE WILL NEED 2 PHYSICIAN CONSENT FOR THE PROCEDURE AND DR SERA COHEN IS AWARE. PATIENT TO BE MADE NPO PAST MIDNIGHT. - Current Medication List Current Medications: Active Medications Amlodipine Besylate (Norvasc -) 10 mg PO DAILY [facility] Last Admin: 12/04/18 10:23 Dose: 10 mg Levothyroxine Sodium (Synthroid -) 125 mcg PO DAILY@0700 [facility] Last Admin: 12/04/18 06:27 Dose: 125 mcg Metoprolol Tartrate (Lopressor Injection -) 5 mg IVPUSH Q4H PRN PRN Reason: TACHYCARDIA (HR > 110 BPM) Last Admin: 11/28/18 14:00 Dose: 5 mg Pantoprazole Sodium (Protonix Packets For Oral Suspension -) 40 mg PO BID [facility] Last Admin: 12/04/18 10:23 Dose: 40 mg - Objective Vital Signs: Vital Signs Temperature 98.4 F 12/04/18 01:58 Pulse Rate 72 12/04/18 09:00 Respiratory Rate 20 12/04/18 09:00 Blood Pressure 149/62 12/04/18 09:00 O2 Sat by Pulse Oximetry (%) 96 12/02/18 21:00 Constitutional: Yes: Mild Distress Cardiovascular: Yes: Regular Rate and Rhythm Respiratory: Yes: WNL Gastrointestinal: Yes: Soft Genitourinary: Yes: Incontinence Musculoskeletal: Yes: Joint Stiffness, Muscle Weakness Extremities: Yes: Deformity Edema: No Integumentary: Yes: Venous Stasis Changes Wound/Incision: Yes: Dressing Dry and Intact Neurological: Yes: Confusion, Pre-Existing Deficit Psychiatric: Yes: Other Labs: CBC, BMP 10/13/19 05:35 12/04/18 05:35 INR, PTT INR 1.02 (0.83-1.09) 11/22/18 00:10 Problem List - Problems (1) GIB (gastrointestinal bleeding) Code(s): K92.2 - GASTROINTESTINAL HEMORRHAGE, UNSPECIFIED Qualifiers: GI bleed type/associated pathology: unspecified gastrointestinal hemorrhage type Qualified Code(s): K92.2 - Gastrointestinal hemorrhage, unspecified (2) Hypothyroid Code(s): E03.9 - HYPOTHYROIDISM, UNSPECIFIED (3) Anemia Code(s): D64.9 - ANEMIA, UNSPECIFIED Qualifiers: Anemia type: unspecified type Qualified Code(s): D64.9 - Anemia, unspecified (4) Arthritis Code(s): M19.90 - UNSPECIFIED OSTEOARTHRITIS, UNSPECIFIED SITE (5) COPD (chronic obstructive pulmonary disease) Code(s): J44.9 - CHRONIC OBSTRUCTIVE PULMONARY DISEASE, UNSPECIFIED (6) Failure to thrive Code(s): [id number] - (7) Low hemoglobin Code(s): D64.9 - ANEMIA, UNSPECIFIED (8) MDD (major depressive disorder) Code(s): F32.9 - MAJOR DEPRESSIVE DISORDER, SINGLE EPISODE, UNSPECIFIED (9) Severe protein-calorie malnutrition Code(s): E43 - UNSPECIFIED SEVERE PROTEIN-CALORIE MALNUTRITION (10) Encounter for competency evaluation Code(s): Z02.79 - ENCOUNTER FOR ISSUE OF OTHER MEDICAL CERTIFICATE (11) Dementia Code(s): F03.90 - UNSPECIFIED DEMENTIA WITHOUT BEHAVIORAL DISTURBANCE Assessment/Plan WILL DISCUSS HAVE DUAL PHYSICIAN CONSENT SIGNED IN THE MORNING FOR EGD CONSENT NPO PAST MIDNIGHT IVF BENEFIT OF THE EGD OUTWEIGHS THE RISK B/C OF THE CONTINUED GI BLEED WILL NEED A DIAGNOSTIC EGD FOR BIOPSY AND POSSIBLE TX OF A BLEEDING ULCER. PPI IV DVT PROPHYLAXIS
--- NOTE | 2018-12-04 17:12 | PN ---
Progress Note (short form) - Note Progress Note: gi bleed anemia lucero ckd Current Medications Amlodipine Besylate (Norvasc -) 10 mg PO DAILY [facility] Last Admin: 12/04/18 10:23 Dose: 10 mg Levothyroxine Sodium (Synthroid -) 125 mcg PO DAILY@0700 [facility] Last Admin: 12/04/18 06:27 Dose: 125 mcg Metoprolol Tartrate (Lopressor Injection -) 5 mg IVPUSH Q4H PRN PRN Reason: TACHYCARDIA (HR > 110 BPM) Last Admin: 11/28/18 14:00 Dose: 5 mg Pantoprazole Sodium (Protonix Packets For Oral Suspension -) 40 mg PO BID [facility] Last Admin: 12/04/18 10:23 Dose: 40 mg Last Vital Signs Temp Pulse Resp BP Pulse Ox 98.2 F 69 18 144/72 96 12/04/18 14:35 12/04/18 14:35 12/04/18 14:35 12/04/18 14:35 12/02/18 21:00 cough Lungs clear Heart reg Abd soft nontender Ext edema CBC, BMP 12/03/18 07:49 12/03/18 07:49 IMP- elderly with above problems no fluid overload renal function stable Plan- minimize blood draws
[2018-12-04] MEDS ORDERED: SODIUM CHLORIDE 1,000 ML IV SCH (18:30)
[2018-12-04] MEDS ORDERED: PT OWN MED DRAWER 7, Y5N ONE (21:41)
[2018-12-05] MEDS: LEVOTHYROXINE NA 125 MCG TABLET (FP) PO SCH (06:36)
[2018-12-05] MEDS: amLODIPine BESYLATE 10 MG TABLET (FP) PO SCH (09:15)
[2018-12-05] MEDS: PANTOPRAZOLE SOD 40 MG SUSPENSION PACKET PO SCH ×2 (09:15→22:32)
--- NOTE | 2018-12-05 12:43 | PN ---
Progress Note, Physician History of Present Illness: Pt seen and examined at bedside. She remains confused. She is awake and appears comfortable. - Current Medication List Current Medications: Active Medications Amlodipine Besylate (Norvasc -) 10 mg PO DAILY [facility] Last Admin: 12/05/18 09:15 Dose: Not Given Sodium Chloride (Normal Saline -) 1,000 mls @ 83 mls/hr IV ASDIR [facility] Last Admin: 12/04/18 23:20 Dose: 83 mls/hr Levothyroxine Sodium (Synthroid -) 125 mcg PO DAILY@0700 [facility] Last Admin: 12/05/18 06:36 Dose: Not Given Metoprolol Tartrate (Lopressor Injection -) 5 mg IVPUSH Q4H PRN PRN Reason: TACHYCARDIA (HR > 110 BPM) Last Admin: 11/28/18 14:00 Dose: 5 mg Pantoprazole Sodium (Protonix Packets For Oral Suspension -) 40 mg PO BID [facility] Last Admin: 12/05/18 09:15 Dose: Not Given - Objective Vital Signs: Vital Signs Temperature 99.3 F 12/05/18 02:00 Pulse Rate 68 12/05/18 05:56 Respiratory Rate 20 12/05/18 07:46 Blood Pressure 141/44 L 12/05/18 05:56 O2 Sat by Pulse Oximetry (%) 100 12/05/18 07:46 Constitutional: Yes: Calm Eyes: Yes: Conjunctiva Clear HENT: Yes: Atraumatic Neck: Yes: Supple Cardiovascular: Yes: S1, S2 Respiratory: Yes: CTA Bilaterally Gastrointestinal: Yes: Normal Bowel Sounds, Soft Genitourinary: Yes: Incontinence Musculoskeletal: Yes: WNL Edema: No Neurological: Yes: Confusion Labs: CBC, BMP 12/04/18 05:35 12/04/18 05:35 INR, PTT INR 1.02 (0.83-1.09) 11/22/18 00:10 Problem List - Problems (1) GIB (gastrointestinal bleeding) Code(s): K92.2 - GASTROINTESTINAL HEMORRHAGE, UNSPECIFIED Qualifiers: GI bleed type/associated pathology: unspecified gastrointestinal hemorrhage type Qualified Code(s): K92.2 - Gastrointestinal hemorrhage, unspecified (2) CKD (chronic kidney disease) Code(s): N18.9 - CHRONIC KIDNEY DISEASE, UNSPECIFIED Qualifiers: Chronic kidney disease stage: on chronic dialysis Qualified Code(s): N18.6 - End stage renal disease; Z99.2 - Dependence on renal dialysis Assessment/Plan Current Medications Generic Name Dose Route Start Last Admin Trade Name Freq PRN Reason Stop Dose Admin Amlodipine Besylate 10 mg 11/28/18 16:15 12/05/18 09:15 Norvasc - PO Not Given DAILY [facility] Sodium Chloride 1,000 mls @ 83 mls/hr 12/04/18 18:30 12/04/18 23:20 Normal Saline - IV 83 mls/hr ASDIR [facility] Administration Levothyroxine Sodium 125 mcg 12/03/18 07:00 12/05/18 06:36 Synthroid - PO Not Given DAILY@0700 [facility] Metoprolol Tartrate 5 mg 11/22/18 22:27 11/28/18 14:00 Lopressor Injection - IVPUSH 5 mg Q4H PRN Administration TACHYCARDIA (HR > 110 BPM) Pantoprazole Sodium 40 mg 12/02/18 22:00 12/05/18 09:15 Protonix Packets For Oral Suspension - PO Not Given BID [facility] Impression 1. CKD 2. right renal cyst 3. lucero 4. hypothryoid 5. dementia 6. parkinsons 7. HTN 8. gout 9. uremia 10. anemia 11. GI bleed Plan - change fluids to d5 1/2 ns while npo - monitor renal function - GI follow up - avoid nsaids - avoid nephrotoxins
--- NOTE | 2018-12-05 12:44 | EKG ---
Test Reason : Blood Pressure : / mmHG Vent. Rate : 060 BPM Atrial Rate : 060 BPM P-R Int : 182 ms QRS Dur : 104 ms QT Int : 416 ms P-R-T Axes : 035 015 056 degrees QTc Int : 416 ms NORMAL SINUS RHYTHM NORMAL ECG WHEN COMPARED WITH ECG OF 22-NOV-2018 00:24, PREMATURE ATRIAL COMPLEXES ARE NO LONGER PRESENT ST NO LONGER DEPRESSED IN INFERIOR LEADS ST NO LONGER DEPRESSED IN ANTEROLATERAL LEADS T WAVE INVERSION NO LONGER EVIDENT IN INFERIOR LEADS T WAVE INVERSION NO LONGER EVIDENT IN LATERAL LEADS QT HAS SHORTENED Confirmed by HUNTER HAIRSTON, JAROD ([id number]) on 12/05/2018 12:44:37 PM Referred By: SHEA WOLFF DR Confirmed By:JAROD HARRISON MD
[2018-12-05] MEDS ORDERED: DEXTROSE 5%-0.45% SALINE 1,000 ML IV SCH (12:45)
--- NOTE | 2018-12-05 13:28 | PN ---
Progress Note, Physician Chief Complaint: patient is hungry wants to eat - Current Medication List Current Medications: Active Medications Amlodipine Besylate (Norvasc -) 10 mg PO DAILY [facility] Last Admin: 12/05/18 09:15 Dose: Not Given Dextrose/Sodium Chloride (D5-1/2ns -) 1,000 mls @ 83 mls/hr IV ASDIR [facility] Levothyroxine Sodium (Synthroid -) 125 mcg PO DAILY@0700 [facility] Last Admin: 12/05/18 06:36 Dose: Not Given Metoprolol Tartrate (Lopressor Injection -) 5 mg IVPUSH Q4H PRN PRN Reason: TACHYCARDIA (HR > 110 BPM) Last Admin: 11/28/18 14:00 Dose: 5 mg Pantoprazole Sodium (Protonix Packets For Oral Suspension -) 40 mg PO BID [facility] Last Admin: 12/05/18 09:15 Dose: Not Given - Objective Vital Signs: Vital Signs Temperature 99.3 F 12/05/18 02:00 Pulse Rate 68 12/05/18 05:56 Respiratory Rate 20 12/05/18 07:46 Blood Pressure 141/44 L 12/05/18 05:56 O2 Sat by Pulse Oximetry (%) 100 12/05/18 07:46 Constitutional: Yes: Calm Cardiovascular: Yes: Regular Rate and Rhythm, S1, S2 Respiratory: Yes: CTA Bilaterally Gastrointestinal: Yes: Normal Bowel Sounds, Soft Edema: No Neurological: Yes: Alert Labs: CBC, BMP 12/04/18 05:35 12/04/18 05:35 INR, PTT INR 1.02 (0.83-1.09) 11/22/18 00:10 Problem List - Problems (1) GIB (gastrointestinal bleeding) Assessment/Plan: appreciate GI and ethics eval deemed not competent by psych i will sign two physician consent for for EGD i have left a message with dr Heaton regarding egd plans will feed patient for now as no plan right now for EGD Code(s): K92.2 - GASTROINTESTINAL HEMORRHAGE, UNSPECIFIED Qualifiers: GI bleed type/associated pathology: unspecified gastrointestinal hemorrhage type Qualified Code(s): K92.2 - Gastrointestinal hemorrhage, unspecified (2) Hypothyroid Assessment/Plan: po synthroid Code(s): E03.9 - HYPOTHYROIDISM, UNSPECIFIED
--- NOTE | 2018-12-05 16:20 | PN ---
Progress Note (short form) - Note Progress Note: spoke with GI, ,plan for ethiic committe to ok the two physician consent for EGD Problem List - Problems (1) GIB (gastrointestinal bleeding) Code(s): K92.2 - GASTROINTESTINAL HEMORRHAGE, UNSPECIFIED Qualifiers: GI bleed type/associated pathology: unspecified gastrointestinal hemorrhage type Qualified Code(s): K92.2 - Gastrointestinal hemorrhage, unspecified (2) Hypothyroid Code(s): E03.9 - HYPOTHYROIDISM, UNSPECIFIED
[2018-12-06] MEDS: LEVOTHYROXINE NA 125 MCG TABLET (FP) PO SCH (06:37)
--- NOTE | 2018-12-06 08:43 | PN ---
Progress Note, Physician Chief Complaint: AWAKE NAD 2 PHYSICIAN CONSENT FOR EGD PATIENT WITHOUT CAPACITY OR NEXT OF KIN INVOLVED IN PATIENTS CARE - Current Medication List Current Medications: Active Medications Amlodipine Besylate (Norvasc -) 10 mg PO DAILY [facility] Last Admin: 12/05/18 09:15 Dose: Not Given Dextrose/Sodium Chloride (D5-1/2ns -) 1,000 mls @ 83 mls/hr IV ASDIR [facility] Levothyroxine Sodium (Synthroid -) 125 mcg PO DAILY@0700 [facility] Last Admin: 12/06/18 06:37 Dose: 125 mcg Metoprolol Tartrate (Lopressor Injection -) 5 mg IVPUSH Q4H PRN PRN Reason: TACHYCARDIA (HR > 110 BPM) Last Admin: 11/28/18 14:00 Dose: 5 mg Pantoprazole Sodium (Protonix Packets For Oral Suspension -) 40 mg PO BID [facility] Last Admin: 12/05/18 22:32 Dose: 40 mg - Objective Vital Signs: Vital Signs Temperature 98.1 F 12/06/18 06:00 Pulse Rate 56 L 12/06/18 06:00 Respiratory Rate 20 12/06/18 06:00 Blood Pressure 158/63 12/06/18 06:00 O2 Sat by Pulse Oximetry (%) 98 12/05/18 21:00 Constitutional: Yes: Mild Distress Cardiovascular: Yes: Regular Rate and Rhythm Respiratory: Yes: On Nasal O2 Gastrointestinal: Yes: Soft Genitourinary: Yes: Incontinence Musculoskeletal: Yes: Joint Stiffness, Joint Swelling, Muscle Weakness Extremities: Yes: Deformity Edema: No Integumentary: Yes: Rash, Venous Stasis Changes Neurological: Yes: Pre-Existing Deficit, Unsteady Gait, Weakness ...Motor Strength: LUE, LLE, RUE, RLE Psychiatric: Yes: Other Labs: CBC, BMP 12/04/18 05:35 12/04/18 05:35 INR, PTT INR 1.02 (0.83-1.09) 11/22/18 00:10 Problem List - Problems (1) GIB (gastrointestinal bleeding) Code(s): K92.2 - GASTROINTESTINAL HEMORRHAGE, UNSPECIFIED Qualifiers: GI bleed type/associated pathology: unspecified gastrointestinal hemorrhage type Qualified Code(s): K92.2 - Gastrointestinal hemorrhage, unspecified (2) Hypothyroid Code(s): E03.9 - HYPOTHYROIDISM, UNSPECIFIED (3) Anemia Code(s): D64.9 - ANEMIA, UNSPECIFIED Qualifiers: Anemia type: unspecified type Qualified Code(s): D64.9 - Anemia, unspecified (4) Arthritis Code(s): M19.90 - UNSPECIFIED OSTEOARTHRITIS, UNSPECIFIED SITE (5) COPD (chronic obstructive pulmonary disease) Code(s): J44.9 - CHRONIC OBSTRUCTIVE PULMONARY DISEASE, UNSPECIFIED (6) Failure to thrive Code(s): [id number] - (7) Low hemoglobin Code(s): D64.9 - ANEMIA, UNSPECIFIED (8) MDD (major depressive disorder) Code(s): F32.9 - MAJOR DEPRESSIVE DISORDER, SINGLE EPISODE, UNSPECIFIED (9) Severe protein-calorie malnutrition Code(s): E43 - UNSPECIFIED SEVERE PROTEIN-CALORIE MALNUTRITION (10) Encounter for competency evaluation Code(s): Z02.79 - ENCOUNTER FOR ISSUE OF OTHER MEDICAL CERTIFICATE (11) Dementia Code(s): F03.90 - UNSPECIFIED DEMENTIA WITHOUT BEHAVIORAL DISTURBANCE Assessment/Plan WE HAVE HAVE DUAL PHYSICIAN CONSENT SIGNED I HAVE EXPRESSED THE IMPORTANCE OF THIS EGD FOR BOTH DIAGNOSTIC AND TREATMENT OF CHRONIC GI BLEED. NPO PAST MIDNIGHT IVF BENEFIT OF THE EGD OUTWEIGHS THE RISK B/C OF THE CONTINUED GI BLEED WILL NEED A DIAGNOSTIC EGD FOR BIOPSY AND POSSIBLE TX OF A BLEEDING ULCER. PPI IV DVT PROPHYLAXIS
[2018-12-06] MEDS: amLODIPine BESYLATE 10 MG TABLET (FP) PO SCH (09:11)
[2018-12-06] MEDS: PANTOPRAZOLE SOD 40 MG SUSPENSION PACKET PO SCH ×2 (09:11→23:06)
--- NOTE | 2018-12-06 12:59 | PN ---
Progress Note, Physician History of Present Illness: Pt seen and examined at bedside. She is awake and appears comfortable. She remains confused. - Current Medication List Current Medications: Active Medications Amlodipine Besylate (Norvasc -) 10 mg PO DAILY [facility] Last Admin: 12/06/18 09:11 Dose: 10 mg Dextrose/Sodium Chloride (D5-1/2ns -) 1,000 mls @ 83 mls/hr IV ASDIR [facility] Levothyroxine Sodium (Synthroid -) 125 mcg PO DAILY@0700 [facility] Last Admin: 12/06/18 06:37 Dose: 125 mcg Metoprolol Tartrate (Lopressor Injection -) 5 mg IVPUSH Q4H PRN PRN Reason: TACHYCARDIA (HR > 110 BPM) Last Admin: 11/28/18 14:00 Dose: 5 mg Pantoprazole Sodium (Protonix Packets For Oral Suspension -) 40 mg PO BID [facility] Last Admin: 12/06/18 09:11 Dose: 40 mg - Objective Vital Signs: Vital Signs Temperature 98.1 F 12/06/18 10:00 Pulse Rate 58 L 12/06/18 10:00 Respiratory Rate 18 12/06/18 10:00 Blood Pressure 155/64 12/06/18 10:00 O2 Sat by Pulse Oximetry (%) 98 12/06/18 09:00 Constitutional: Yes: Calm Eyes: Yes: Conjunctiva Clear HENT: Yes: Atraumatic Neck: Yes: Supple Cardiovascular: Yes: S1, S2 Respiratory: Yes: CTA Bilaterally Gastrointestinal: Yes: Soft Genitourinary: Yes: Incontinence Musculoskeletal: Yes: Muscle Weakness Edema: No Neurological: Yes: Confusion Labs: CBC, BMP 12/04/18 05:35 12/04/18 05:35 INR, PTT INR 1.02 (0.83-1.09) 11/22/18 00:10 Problem List - Problems (1) GIB (gastrointestinal bleeding) Code(s): K92.2 - GASTROINTESTINAL HEMORRHAGE, UNSPECIFIED Qualifiers: GI bleed type/associated pathology: unspecified gastrointestinal hemorrhage type Qualified Code(s): K92.2 - Gastrointestinal hemorrhage, unspecified (2) CKD (chronic kidney disease) Code(s): N18.9 - CHRONIC KIDNEY DISEASE, UNSPECIFIED Qualifiers: Chronic kidney disease stage: on chronic dialysis Qualified Code(s): N18.6 - End stage renal disease; Z99.2 - Dependence on renal dialysis Assessment/Plan Current Medications Generic Name Dose Route Start Last Admin Trade Name Freq PRN Reason Stop Dose Admin Amlodipine Besylate 10 mg 11/28/18 16:15 12/06/18 09:11 Norvasc - PO 10 mg DAILY [facility] Administration Dextrose/Sodium Chloride 1,000 mls @ 83 mls/hr 12/05/18 12:45 D5-1/2ns - IV ASDIR [facility] Levothyroxine Sodium 125 mcg 12/03/18 07:00 12/06/18 06:37 Synthroid - PO 125 mcg DAILY@0700 [facility] Administration Metoprolol Tartrate 5 mg 11/22/18 22:27 11/28/18 14:00 Lopressor Injection - IVPUSH 5 mg Q4H PRN Administration TACHYCARDIA (HR > 110 BPM) Pantoprazole Sodium 40 mg 12/02/18 22:00 12/06/18 09:11 Protonix Packets For Oral Suspension - PO 40 mg BID [facility] Administration Impression 1. CKD 2. right renal cyst 3. lucero 4. hypothryoid 5. dementia 6. parkinsons 7. HTN 8. gout 9. uremia 10. anemia 11. GI bleed Plan - check labs if she agrees - monitor renal function - GI follow up - avoid nsaids - avoid nephrotoxins
--- NOTE | 2018-12-06 14:04 | PN ---
Progress Note (short form) - Note Progress Note: The patient is scheduled for an EGD Wednesday. I spoke with her at length this afternoon and her decision as to agree to the procedure or refuse is still wavering and it appears that she may refuse at which point it cannot be forced upon her. If that occurs then a formal ethics meeting would have to be held with risk management present to discuss plans for further care if bleeding or end of life or life sustaining issues arise in the future. Also I spoke with risk management this afternoon and their advice is that the GI MD who would perform the procedure should be one on the concurring MD''s on the consent form. Anesthesia was informed of these facts.
--- NOTE | 2018-12-06 17:26 | PN.GI ---
GI Progress Note Subjective: Patient awake, no acute events States that she wants to go home - Objective Vital Signs: Vital Signs Temperature 98.9 F 12/06/18 14:00 Pulse Rate 67 12/06/18 14:00 Respiratory Rate 18 12/06/18 10:00 Blood Pressure 153/59 L 12/06/18 14:00 O2 Sat by Pulse Oximetry (%) 98 12/06/18 09:00 Constitutional: Calm Eyes: No: Sclera Icterus Cardiovascular: Yes: Regular Rate and Rhythm Respiratory: Yes: Diminished (at bases with poor insp effort) Gastrointestinal Inspection: Yes: Scars ...Auscultate: Yes: Normoactive Bowel Sounds Neurological: Yes: Alert Labs: CBC, BMP 12/04/18 05:35 12/04/18 05:35 INR, PTT INR 1.02 (0.83-1.09) 11/22/18 00:10 Problem List - Problems (1) GIB (gastrointestinal bleeding) Assessment/Plan: Multiple admission for suspected UGIB. reviewed ethics note today Discussed again with Ms. Colon re: possible EGD to look for source of upper GI blood loss. We discussed potential risks of the procedure like but not limited to bleeding, perforation requiring surgery to repair, infection, sedation medication effects all of which could be potentially life threatening. She said "OK, as long as someone takes care of me". She is confused and does not have insight, however two physician consent has been obtained and is not refusing procedure. Agree that she should have evaluation of recurrent GI bleeding in the setting of recurrent unevaluated GI bleeding. If she changes her mind and begins to refuse again, then as per Dr. Callejas's note from today, this will have to go to ethics committee as a procedure cannot be forced upon her. Plan tentatively for EGD 12/07 Will need anesthesia consent. I spoke with anesthesia regarding Ms. Colon' propose procedure for tomorrow earlier today. Code(s): K92.2 - GASTROINTESTINAL HEMORRHAGE, UNSPECIFIED Qualifiers: GI bleed type/associated pathology: unspecified gastrointestinal hemorrhage type Qualified Code(s): K92.2 - Gastrointestinal hemorrhage, unspecified
[2018-12-07] MEDS: LEVOTHYROXINE NA 125 MCG TABLET (FP) PO SCH (06:06)
[2018-12-07 07:28] LABS: BASO % 1.3 % (0-2.0); HEMATOCRIT 20.2 % (32.4-45.2); LYMPH % 13.1 % (8-40); MCH 29.7 pg (25.7-33.7); MCHC 33.1 g/dl (32.0-36.0); MEAN CELL VOLUME 89.8 fl (80-96); MEAN PLT VOLUME 7.5 fl (7.5-11.1); MONO % 8.1 % (3.8-10.2); NEUT % 73.5 % (42.8-82.8); PLATELET COUNT 324 K/MM3 (134-434); RBC 2.25 M/mm3 (3.60-5.2); RDW 15.4 % (11.6-15.6); WHITE BLOOD COUNT 6.3 K/mm3 (4.0-10.0)
[2018-12-07 07:42] LABS: ALBUMIN 2.3 g/dl (3.4-5.0); BILIRUBIN,TOTAL 0.3 mg/dL (0.2-1); BLOOD UREA NITROGEN 64.9 mg/dL (7-18); CALCIUM 8.3 mg/dL (8.5-10.1); CREATININE 2.1 mg/dL (0.55-1.3); POTASSIUM 4.3 mmol/L (3.5-5.1); TOT PROT 5.3 g/dl (6.4-8.2)
[2018-12-07 08:30] LABS: HEMOGLOBIN 6.7 GM/dL (10.7-15.3)
[2018-12-07] MEDS: PANTOPRAZOLE SOD 40 MG SUSPENSION PACKET PO SCH ×3 (09:31→21:49)
[2018-12-07] MEDS: amLODIPine BESYLATE 10 MG TABLET (FP) PO SCH (09:33)
--- NOTE | 2018-12-07 09:48 | PN ---
Progress Note (short form) - Note Progress Note: Brief GI note Pt seen/examined at bedside. Asking to eat, states she does not want the EGD today. Only asking for breakfast on my evaluation otherwise no complaints. Pt appears comfortable, alert/oriented to person and place Abd soft, nontender, nondistended Labs reviewed. CBC, BMP 12/07/18 05:40 12/07/18 05:40 78yo female with recurrent admissions for anemia and reported dark stools. Dr. Callejas's note reviewed - pt refusing endoscopy today therefore will need to proceed with ethics meeting to further discuss plans of care as cannot undergo procedure against her will. Pt also with Hb 6.7 no overt bleeding and will need prbc transfusion to maintain Hb > 7. EGD therefore cancelled today. Attempted to contact Dr. Callejas, await call back. Discussed with nursing staff.
--- NOTE | 2018-12-07 10:48 | PN ---
Progress Note, Physician Chief Complaint: GI bleed History of Present Illness: NAD Seen by GI Chronic GI bleed Seen by Psych- deemed to lack functional capacity to make decisions. Unable to get in touch with next of Kin Also seen by Ethics, awaiting decisions regarding EGD, Goals of care, advance directives, etc. - Current Medication List Current Medications: Active Medications Amlodipine Besylate (Norvasc -) 10 mg PO DAILY [facility] Last Admin: 12/07/18 09:33 Dose: 10 mg Dextrose/Sodium Chloride (D5-1/2ns -) 1,000 mls @ 83 mls/hr IV ASDIR [facility] Last Admin: 12/06/18 23:30 Dose: 83 mls/hr Levothyroxine Sodium (Synthroid -) 125 mcg PO DAILY@0700 [facility] Last Admin: 12/07/18 06:06 Dose: Not Given Metoprolol Tartrate (Lopressor Injection -) 5 mg IVPUSH Q4H PRN PRN Reason: TACHYCARDIA (HR > 110 BPM) Last Admin: 11/28/18 14:00 Dose: 5 mg Pantoprazole Sodium (Protonix Packets For Oral Suspension -) 40 mg PO BID [facility] Last Admin: 12/07/18 10:04 Dose: 40 mg - Objective Vital Signs: Vital Signs Temperature 98.5 F 12/07/18 06:00 Pulse Rate 59 L 12/07/18 06:00 Respiratory Rate 18 12/07/18 06:00 Blood Pressure 154/74 12/07/18 06:00 O2 Sat by Pulse Oximetry (%) 100 12/06/18 21:00 Constitutional: Yes: Well Nourished, No Distress, Calm Cardiovascular: Yes: Regular Rate and Rhythm Respiratory: Yes: Regular Gastrointestinal: Yes: WNL, Normal Bowel Sounds, Soft Genitourinary: Yes: WNL Musculoskeletal: Yes: WNL Edema: No Peripheral Pulses WNL: Yes Neurological: Yes: Alert Psychiatric: Yes: Alert Labs: CBC, BMP 12/07/18 05:40 12/07/18 05:40 INR, PTT INR 1.02 (0.83-1.09) 11/22/18 00:10 Assessment/Plan (1) GIB (gastrointestinal bleeding) Assessment/Plan: -GI consult -2U PRBC transfusion -Stool OB positive -Pantoprazole -restart diet Code(s): K92.2 - GASTROINTESTINAL HEMORRHAGE, UNSPECIFIED Qualifiers: GI bleed type/associated pathology: unspecified gastrointestinal hemorrhage type Qualified Code(s): K92.2 - Gastrointestinal hemorrhage, unspecified (2) Anemia Assessment/Plan: -GI consult -2U PRBC transfusion -Stool OB positive -Pantoprazole -Restart diet for now Code(s): D64.9 - ANEMIA, UNSPECIFIED Qualifiers: Anemia type: unspecified type Qualified Code(s): D64.9 - Anemia, unspecified (3) CHF (congestive heart failure) Assessment/Plan: -1L fluid restriction -daily weights Code(s): I50.9 - HEART FAILURE, UNSPECIFIED (4) CKD (chronic kidney disease) Assessment/Plan: -Renal consult -Cr stable at this time Code(s): N18.9 - CHRONIC KIDNEY DISEASE, UNSPECIFIED Qualifiers: Chronic kidney disease stage: on chronic dialysis Qualified Code(s): N18.6 - End stage renal disease; Z99.2 - Dependence on renal dialysis (5) HTN (hypertension) Assessment/Plan: -monitor BP Code(s): I10 - ESSENTIAL (PRIMARY) HYPERTENSION (6) Hypothyroid Assessment/Plan: -Levothyroxine Code(s): E03.9 - HYPOTHYROIDISM, UNSPECIFIED Pt was scheduled for EGD today. However, refused this AM when seen by GI. GI placed call to Dr Callejas, but was unable to get in touch. As per Ethics consult, the case would need to be discussed with Ethics Committee to finalize goals of care, advance directives and whether to proceed with EGD
--- NOTE | 2018-12-07 12:58 | PN ---
Progress Note, Physician History of Present Illness: Pt seen and examined at bedside. She is awake but confused. She is getting a PRBC transfusion. - Current Medication List Current Medications: Active Medications Amlodipine Besylate (Norvasc -) 10 mg PO DAILY [facility] Last Admin: 12/07/18 09:33 Dose: 10 mg Dextrose/Sodium Chloride (D5-1/2ns -) 1,000 mls @ 83 mls/hr IV ASDIR [facility] Last Admin: 12/06/18 23:30 Dose: 83 mls/hr Levothyroxine Sodium (Synthroid -) 125 mcg PO DAILY@0700 [facility] Last Admin: 12/07/18 06:06 Dose: Not Given Metoprolol Tartrate (Lopressor Injection -) 5 mg IVPUSH Q4H PRN PRN Reason: TACHYCARDIA (HR > 110 BPM) Last Admin: 11/28/18 14:00 Dose: 5 mg Pantoprazole Sodium (Protonix Packets For Oral Suspension -) 40 mg PO BID [facility] Last Admin: 12/07/18 10:04 Dose: 40 mg - Objective Vital Signs: Vital Signs Temperature 98.5 F 12/07/18 10:00 Pulse Rate 59 L 12/07/18 10:00 Respiratory Rate 18 12/07/18 10:00 Blood Pressure 143/89 12/07/18 10:00 O2 Sat by Pulse Oximetry (%) 100 12/07/18 09:00 Constitutional: Yes: Calm Eyes: Yes: Conjunctiva Clear HENT: Yes: Atraumatic Neck: Yes: Supple Cardiovascular: Yes: S1, S2 Respiratory: Yes: CTA Bilaterally Gastrointestinal: Yes: Soft Genitourinary: Yes: WNL Musculoskeletal: Yes: WNL Edema: No Neurological: Yes: Oriented Psychiatric: Yes: Oriented Labs: CBC, BMP 12/07/18 05:40 12/07/18 05:40 INR, PTT INR 1.02 (0.83-1.09) 11/22/18 00:10 Problem List - Problems (1) GIB (gastrointestinal bleeding) Code(s): K92.2 - GASTROINTESTINAL HEMORRHAGE, UNSPECIFIED Qualifiers: GI bleed type/associated pathology: unspecified gastrointestinal hemorrhage type Qualified Code(s): K92.2 - Gastrointestinal hemorrhage, unspecified (2) CKD (chronic kidney disease) Code(s): N18.9 - CHRONIC KIDNEY DISEASE, UNSPECIFIED Qualifiers: Chronic kidney disease stage: on chronic dialysis Qualified Code(s): N18.6 - End stage renal disease; Z99.2 - Dependence on renal dialysis Assessment/Plan Current Medications Generic Name Dose Route Start Last Admin Trade Name Freq PRN Reason Stop Dose Admin Amlodipine Besylate 10 mg 11/28/18 16:15 12/07/18 09:33 Norvasc - PO 10 mg DAILY [facility] Administration Dextrose/Sodium Chloride 1,000 mls @ 83 mls/hr 12/05/18 12:45 12/06/18 23:30 D5-1/2ns - IV 83 mls/hr ASDIR [facility] Administration Levothyroxine Sodium 125 mcg 12/03/18 07:00 12/07/18 06:06 Synthroid - PO Not Given DAILY@0700 [facility] Metoprolol Tartrate 5 mg 11/22/18 22:27 11/28/18 14:00 Lopressor Injection - IVPUSH 5 mg Q4H PRN Administration TACHYCARDIA (HR > 110 BPM) Pantoprazole Sodium 40 mg 12/02/18 22:00 12/07/18 10:04 Protonix Packets For Oral Suspension - PO 40 mg BID [facility] Administration Impression 1. CKD 2. right renal cyst 3. lucero 4. hypothryoid 5. dementia 6. parkinsons 7. HTN 8. gout 9. uremia 10. anemia 11. GI bleed Plan - pt getting prbc - monitor bmp - gi bleed can contribute to elevated bun - avoid nsaids - avoid nephrotoxins
[2018-12-08] MEDS: LEVOTHYROXINE NA 125 MCG TABLET (FP) PO SCH (06:00)
[2018-12-08] MEDS ORDERED: PT OWN MED DRAWER 7, Y5N ONE (12:25)
[2018-12-08] MEDS: amLODIPine BESYLATE 10 MG TABLET (FP) PO SCH (12:30)
[2018-12-08] MEDS: PANTOPRAZOLE SOD 40 MG SUSPENSION PACKET PO SCH ×2 (12:30→22:19)
--- NOTE | 2018-12-08 12:36 | PN ---
Progress Note, Physician History of Present Illness: Pt seen and examined at bedside. She remains confused. - Current Medication List Current Medications: Active Medications Amlodipine Besylate (Norvasc -) 10 mg PO DAILY [facility] Last Admin: 12/08/18 12:30 Dose: 10 mg Dextrose/Sodium Chloride (D5-1/2ns -) 1,000 mls @ 83 mls/hr IV ASDIR [facility] Last Admin: 12/06/18 23:30 Dose: 83 mls/hr Levothyroxine Sodium (Synthroid -) 125 mcg PO DAILY@0700 [facility] Last Admin: 12/08/18 06:00 Dose: 125 mcg Metoprolol Tartrate (Lopressor Injection -) 5 mg IVPUSH Q4H PRN PRN Reason: TACHYCARDIA (HR > 110 BPM) Last Admin: 11/28/18 14:00 Dose: 5 mg Pantoprazole Sodium (Protonix Packets For Oral Suspension -) 40 mg PO BID [facility] Last Admin: 12/08/18 12:30 Dose: 40 mg - Objective Vital Signs: Vital Signs Temperature 98.1 F 12/08/18 05:42 Pulse Rate 70 12/08/18 05:42 Respiratory Rate 18 12/08/18 05:42 Blood Pressure 149/62 12/08/18 05:42 O2 Sat by Pulse Oximetry (%) 95 12/07/18 21:00 Constitutional: Yes: Calm Eyes: Yes: Conjunctiva Clear HENT: Yes: Atraumatic Neck: Yes: Supple Cardiovascular: Yes: S1, S2 Respiratory: Yes: CTA Bilaterally Gastrointestinal: Yes: Soft Genitourinary: Yes: WNL Musculoskeletal: Yes: Muscle Weakness Edema: No Neurological: Yes: Confusion Labs: CBC, BMP 12/07/18 05:40 12/07/18 05:40 INR, PTT INR 1.02 (0.83-1.09) 11/22/18 00:10 Problem List - Problems (1) GIB (gastrointestinal bleeding) Code(s): K92.2 - GASTROINTESTINAL HEMORRHAGE, UNSPECIFIED Qualifiers: GI bleed type/associated pathology: unspecified gastrointestinal hemorrhage type Qualified Code(s): K92.2 - Gastrointestinal hemorrhage, unspecified (2) CKD (chronic kidney disease) Code(s): N18.9 - CHRONIC KIDNEY DISEASE, UNSPECIFIED Qualifiers: Chronic kidney disease stage: on chronic dialysis Qualified Code(s): N18.6 - End stage renal disease; Z99.2 - Dependence on renal dialysis Assessment/Plan Current Medications Generic Name Dose Route Start Last Admin Trade Name Armani PRN Reason Stop Dose Admin Amlodipine Besylate 10 mg 11/28/18 16:15 12/08/18 12:30 Norvasc - PO 10 mg DAILY [facility] Administration Dextrose/Sodium Chloride 1,000 mls @ 83 mls/hr 12/05/18 12:45 12/06/18 23:30 D5-1/2ns - IV 83 mls/hr ASDIR [facility] Administration Levothyroxine Sodium 125 mcg 12/03/18 07:00 12/08/18 06:00 Synthroid - PO 125 mcg DAILY@0700 [facility] Administration Metoprolol Tartrate 5 mg 11/22/18 22:27 11/28/18 14:00 Lopressor Injection - IVPUSH 5 mg Q4H PRN Administration TACHYCARDIA (HR > 110 BPM) Pantoprazole Sodium 40 mg 12/02/18 22:00 12/08/18 12:30 Protonix Packets For Oral Suspension - PO 40 mg BID [facility] Administration Impression 1. CKD 2. right renal cyst 3. lucero 4. hypothryoid 5. dementia 6. parkinsons 7. HTN 8. gout 9. uremia 10. anemia 11. GI bleed Plan - can d/c fluids as she is eating - monitor renal function - pt has required multiple prbc transfusions for anemia - gi bleed can contribute to elevated bun - avoid nsaids - avoid nephrotoxins
--- NOTE | 2018-12-08 14:07 | PN ---
Progress Note, Physician Chief Complaint: patient awake alert wants to eat s/p 2 units of prbc - Current Medication List Current Medications: Active Medications Amlodipine Besylate (Norvasc -) 10 mg PO DAILY [facility] Last Admin: 12/08/18 12:30 Dose: 10 mg Levothyroxine Sodium (Synthroid -) 125 mcg PO DAILY@0700 [facility] Last Admin: 12/08/18 06:00 Dose: 125 mcg Metoprolol Tartrate (Lopressor Injection -) 5 mg IVPUSH Q4H PRN PRN Reason: TACHYCARDIA (HR > 110 BPM) Last Admin: 11/28/18 14:00 Dose: 5 mg Pantoprazole Sodium (Protonix Packets For Oral Suspension -) 40 mg PO BID [facility] Last Admin: 12/08/18 12:30 Dose: 40 mg - Objective Vital Signs: Vital Signs Temperature 98.1 F 12/08/18 05:42 Pulse Rate 70 12/08/18 05:42 Respiratory Rate 18 12/08/18 05:42 Blood Pressure 149/62 12/08/18 05:42 O2 Sat by Pulse Oximetry (%) 95 12/07/18 21:00 Constitutional: Yes: Calm, Thin Cardiovascular: Yes: Regular Rate and Rhythm, S1, S2 Respiratory: Yes: CTA Bilaterally Gastrointestinal: Yes: Normal Bowel Sounds, Soft Edema: No Neurological: Yes: Confusion Labs: CBC, BMP 12/07/18 05:40 12/07/18 05:40 INR, PTT INR 1.02 (0.83-1.09) 11/22/18 00:10 Problem List - Problems (1) GIB (gastrointestinal bleeding) Assessment/Plan: s/p prbc 2 units repeat cbc today refused egd yesterday tired calling dr Mccrary to discuss ethics committee meeting- about 2 times today line as busy spoke to GI today they want to know about this meeting Code(s): K92.2 - GASTROINTESTINAL HEMORRHAGE, UNSPECIFIED Qualifiers: GI bleed type/associated pathology: unspecified gastrointestinal hemorrhage type Qualified Code(s): K92.2 - Gastrointestinal hemorrhage, unspecified (2) Hypothyroid Assessment/Plan: po synthroid Code(s): E03.9 - HYPOTHYROIDISM, UNSPECIFIED (3) HTN (hypertension) Assessment/Plan: amlodipine Code(s): I10 - ESSENTIAL (PRIMARY) HYPERTENSION
[2018-12-09] MEDS: LEVOTHYROXINE NA 125 MCG TABLET (FP) PO SCH (06:01)
[2018-12-09] MEDS ORDERED: PT OWN MED DRAWER 7, Y5N ONE (10:54)
[2018-12-09] MEDS: amLODIPine BESYLATE 10 MG TABLET (FP) PO SCH (10:56)
[2018-12-09] MEDS: PANTOPRAZOLE SOD 40 MG SUSPENSION PACKET PO SCH ×2 (10:56→21:33)
[2018-12-09 12:47] LABS: BASO % 1.8 % (0-2.0); EOS % 3.6 % (0-4.5); HEMATOCRIT 30.7 % (32.4-45.2); HEMOGLOBIN 10.1 GM/dL (10.7-15.3); LYMPH % 15.3 % (8-40); MCH 29.4 pg (25.7-33.7); MCHC 32.8 g/dl (32.0-36.0); MEAN CELL VOLUME 89.5 fl (80-96); MEAN PLT VOLUME 7.5 fl (7.5-11.1); MONO % 8.2 % (3.8-10.2); NEUT % 71.1 % (42.8-82.8); PLATELET COUNT 301 K/MM3 (134-434); RBC 3.44 M/mm3 (3.60-5.2); RDW 15.2 % (11.6-15.6); WHITE BLOOD COUNT 5.1 K/mm3 (4.0-10.0)
--- NOTE | 2018-12-09 13:15 | PN ---
Progress Note, Physician Chief Complaint: patient eaten food today she wants to do egd risk managemetn ethic commitee is wednesday cbc ordered and is pending - Current Medication List Current Medications: Active Medications Amlodipine Besylate (Norvasc -) 10 mg PO DAILY [facility] Last Admin: 12/09/18 10:56 Dose: 10 mg Levothyroxine Sodium (Synthroid -) 125 mcg PO DAILY@0700 [facility] Last Admin: 12/09/18 06:01 Dose: 125 mcg Metoprolol Tartrate (Lopressor Injection -) 5 mg IVPUSH Q4H PRN PRN Reason: TACHYCARDIA (HR > 110 BPM) Last Admin: 11/28/18 14:00 Dose: 5 mg Pantoprazole Sodium (Protonix Packets For Oral Suspension -) 40 mg PO BID [facility] Last Admin: 12/09/18 10:56 Dose: 40 mg - Objective Vital Signs: Vital Signs Temperature 97.8 F 12/09/18 06:01 Pulse Rate 60 12/09/18 06:01 Respiratory Rate 20 12/09/18 06:01 Blood Pressure 158/66 12/09/18 06:01 O2 Sat by Pulse Oximetry (%) 97 12/08/18 22:00 Constitutional: Yes: Calm, Thin Cardiovascular: Yes: Regular Rate and Rhythm, S1, S2 Respiratory: Yes: CTA Bilaterally Gastrointestinal: Yes: Normal Bowel Sounds, Soft Edema: No Psychiatric: Yes: Alert, Oriented Labs: CBC, BMP 12/07/18 05:40 INR, PTT INR 1.02 (0.83-1.09) 11/22/18 00:10 Problem List - Problems (1) GIB (gastrointestinal bleeding) Assessment/Plan: s/p prbc 2 units repeat cbc today ethic commitie meeting is wednesday Code(s): K92.2 - GASTROINTESTINAL HEMORRHAGE, UNSPECIFIED Qualifiers: GI bleed type/associated pathology: unspecified gastrointestinal hemorrhage type Qualified Code(s): K92.2 - Gastrointestinal hemorrhage, unspecified (2) Hypothyroid Assessment/Plan: po synthroid Code(s): E03.9 - HYPOTHYROIDISM, UNSPECIFIED (3) HTN (hypertension) Code(s): I10 - ESSENTIAL (PRIMARY) HYPERTENSION
--- NOTE | 2018-12-09 13:36 | PN ---
Progress Note (short form) - Note Progress Note: Advised by Dr. Grewal that Ms. Colon "agreed to have the test". She has eaten breakfast today. Advised that at this point, ethics will need to be involved. Ms. Colon has been transiently agreeable in the past, only to refuse the morning of her procedures. If overt GI bleeding, keep NPO, resume PPI drip, transfuse as needed and alert GI service. Problem List - Problems (1) GIB (gastrointestinal bleeding) Code(s): K92.2 - GASTROINTESTINAL HEMORRHAGE, UNSPECIFIED Qualifiers: GI bleed type/associated pathology: unspecified gastrointestinal hemorrhage type Qualified Code(s): K92.2 - Gastrointestinal hemorrhage, unspecified
--- NOTE | 2018-12-09 15:39 | PN ---
Progress Note, Physician History of Present Illness: Pt seen and examined at bedside. She is awake and appears comfortable. - Current Medication List Current Medications: Active Medications Amlodipine Besylate (Norvasc -) 10 mg PO DAILY [facility] Last Admin: 12/09/18 10:56 Dose: 10 mg Levothyroxine Sodium (Synthroid -) 125 mcg PO DAILY@0700 [facility] Last Admin: 12/09/18 06:01 Dose: 125 mcg Metoprolol Tartrate (Lopressor Injection -) 5 mg IVPUSH Q4H PRN PRN Reason: TACHYCARDIA (HR > 110 BPM) Last Admin: 11/28/18 14:00 Dose: 5 mg Pantoprazole Sodium (Protonix Packets For Oral Suspension -) 40 mg PO BID [facility] Last Admin: 12/09/18 10:56 Dose: 40 mg - Objective Vital Signs: Vital Signs Temperature 97.8 F 12/09/18 06:01 Pulse Rate 60 12/09/18 06:01 Respiratory Rate 20 12/09/18 06:01 Blood Pressure 158/66 12/09/18 06:01 O2 Sat by Pulse Oximetry (%) 97 12/08/18 22:00 Constitutional: Yes: Calm Eyes: Yes: Conjunctiva Clear HENT: Yes: Atraumatic Neck: Yes: Supple Cardiovascular: Yes: S1, S2 Respiratory: Yes: CTA Bilaterally Gastrointestinal: Yes: Normal Bowel Sounds, Soft Genitourinary: Yes: Incontinence Musculoskeletal: Yes: Muscle Weakness Edema: No Integumentary: Yes: WNL Neurological: Yes: Confusion Labs: CBC, BMP 12/09/18 12:28 12/07/18 05:40 INR, PTT INR 1.02 (0.83-1.09) 11/22/18 00:10 Problem List - Problems (1) GIB (gastrointestinal bleeding) Code(s): K92.2 - GASTROINTESTINAL HEMORRHAGE, UNSPECIFIED Qualifiers: GI bleed type/associated pathology: unspecified gastrointestinal hemorrhage type Qualified Code(s): K92.2 - Gastrointestinal hemorrhage, unspecified (2) CKD (chronic kidney disease) Code(s): N18.9 - CHRONIC KIDNEY DISEASE, UNSPECIFIED Qualifiers: Chronic kidney disease stage: on chronic dialysis Qualified Code(s): N18.6 - End stage renal disease; Z99.2 - Dependence on renal dialysis Assessment/Plan Current Medications Generic Name Dose Route Start Last Admin Trade Name Freq PRN Reason Stop Dose Admin Amlodipine Besylate 10 mg 11/28/18 16:15 12/09/18 10:56 Norvasc - PO 10 mg DAILY [facility] Administration Levothyroxine Sodium 125 mcg 12/03/18 07:00 12/09/18 06:01 Synthroid - PO 125 mcg DAILY@0700 [facility] Administration Metoprolol Tartrate 5 mg 11/22/18 22:27 11/28/18 14:00 Lopressor Injection - IVPUSH 5 mg Q4H PRN Administration TACHYCARDIA (HR > 110 BPM) Pantoprazole Sodium 40 mg 12/02/18 22:00 12/09/18 10:56 Protonix Packets For Oral Suspension - PO 40 mg BID [facility] Administration Impression 1. CKD 2. right renal cyst 3. lucero 4. hypothryoid 5. dementia 6. parkinsons 7. HTN 8. gout 9. uremia 10. anemia 11. GI bleed Plan - renal function stable - monitor hg - gi input appreciated - will follow prn - gi bleed can contribute to elevated bun - avoid nsaids - avoid nephrotoxins
[2018-12-10] MEDS: LEVOTHYROXINE NA 125 MCG TABLET (FP) PO SCH (06:07)
[2018-12-10] MEDS ORDERED: PT OWN MED DRAWER 7, Y5N ONE ×2 (11:05→22:14)
[2018-12-10] MEDS: amLODIPine BESYLATE 10 MG TABLET (FP) PO SCH (11:07)
[2018-12-10] MEDS: PANTOPRAZOLE SOD 40 MG SUSPENSION PACKET PO SCH ×2 (11:07→22:24)
--- NOTE | 2018-12-10 11:48 | PN ---
Progress Note, Physician - Current Medication List Current Medications: Active Medications Amlodipine Besylate (Norvasc -) 10 mg PO DAILY [facility] Last Admin: 12/10/18 11:07 Dose: 10 mg Levothyroxine Sodium (Synthroid -) 125 mcg PO DAILY@0700 [facility] Last Admin: 12/10/18 06:07 Dose: 125 mcg Metoprolol Tartrate (Lopressor Injection -) 5 mg IVPUSH Q4H PRN PRN Reason: TACHYCARDIA (HR > 110 BPM) Last Admin: 11/28/18 14:00 Dose: 5 mg Pantoprazole Sodium (Protonix Packets For Oral Suspension -) 40 mg PO BID [facility] Last Admin: 12/10/18 11:07 Dose: 40 mg - Objective Vital Signs: Vital Signs Temperature 98.1 F 12/10/18 05:35 Pulse Rate 60 12/10/18 05:35 Respiratory Rate 18 12/10/18 05:35 Blood Pressure 160/76 12/10/18 05:35 O2 Sat by Pulse Oximetry (%) 100 12/09/18 20:20 Cardiovascular: Yes: Regular Rate and Rhythm Respiratory: Yes: Regular, CTA Bilaterally Gastrointestinal: Yes: Normal Bowel Sounds, Soft Labs: CBC, BMP 12/09/18 12:28 12/07/18 05:40 INR, PTT INR 1.02 (0.83-1.09) 11/22/18 00:10 Assessment/Plan - Problems (1) GIB (gastrointestinal bleeding) Assessment/Plan: s/p prbc 2 units repeat cbc today ethic commitie meeting is wednesday Code(s): K92.2 - GASTROINTESTINAL HEMORRHAGE, UNSPECIFIED Qualifiers: GI bleed type/associated pathology: unspecified gastrointestinal hemorrhage type Qualified Code(s): K92.2 - Gastrointestinal hemorrhage, unspecified (2) Hypothyroid Assessment/Plan: po synthroid Code(s): E03.9 - HYPOTHYROIDISM, UNSPECIFIED (3) HTN (hypertension) Code(s): I10 - ESSENTIAL (PRIMARY) HYPERTENSION
[2018-12-11] MEDS: LEVOTHYROXINE NA 125 MCG TABLET (FP) PO SCH (06:31)
--- NOTE | 2018-12-11 11:06 | PN ---
Progress Note, Physician - Current Medication List Current Medications: Active Medications Amlodipine Besylate (Norvasc -) 10 mg PO DAILY [facility] Last Admin: 12/10/18 11:07 Dose: 10 mg Levothyroxine Sodium (Synthroid -) 125 mcg PO DAILY@0700 [facility] Last Admin: 12/11/18 06:31 Dose: 125 mcg Metoprolol Tartrate (Lopressor Injection -) 5 mg IVPUSH Q4H PRN PRN Reason: TACHYCARDIA (HR > 110 BPM) Last Admin: 11/28/18 14:00 Dose: 5 mg Pantoprazole Sodium (Protonix Packets For Oral Suspension -) 40 mg PO BID [facility] Last Admin: 12/10/18 22:24 Dose: 40 mg - Objective Vital Signs: Vital Signs Temperature 97.2 F L 12/11/18 06:00 Pulse Rate 57 L 12/11/18 06:00 Respiratory Rate 17 12/11/18 06:00 Blood Pressure 157/66 12/11/18 06:00 O2 Sat by Pulse Oximetry (%) 99 12/10/18 21:00 Cardiovascular: Yes: Regular Rate and Rhythm Respiratory: Yes: Regular, CTA Bilaterally Gastrointestinal: Yes: Normal Bowel Sounds, Soft. No: Tenderness Labs: CBC, BMP 12/09/18 12:28 12/07/18 05:40 INR, PTT INR 1.02 (0.83-1.09) 11/22/18 00:10 Assessment/Plan - Problems (1) GIB (gastrointestinal bleeding) Assessment/Plan: s/p prbc 2 units repeat cbc today ethic committee meeting is Wednesday Code(s): K92.2 - GASTROINTESTINAL HEMORRHAGE, UNSPECIFIED Qualifiers: GI bleed type/associated pathology: unspecified gastrointestinal hemorrhage type Qualified Code(s): K92.2 - Gastrointestinal hemorrhage, unspecified (2) Hypothyroid Assessment/Plan: po synthroid Code(s): E03.9 - HYPOTHYROIDISM, UNSPECIFIED (3) HTN (hypertension) Code(s): I10 - ESSENTIAL (PRIMARY) HYPERTENSION
[2018-12-11] MEDS: PANTOPRAZOLE SOD 40 MG SUSPENSION PACKET PO SCH ×2 (11:07→22:21)
[2018-12-11] MEDS: amLODIPine BESYLATE 10 MG TABLET (FP) PO SCH (11:09)
[2018-12-12] MEDS: LEVOTHYROXINE NA 125 MCG TABLET (FP) PO SCH (06:06)
--- NOTE | 2018-12-12 10:14 | PN ---
Progress Note, Physician History of Present Illness: Pt seen and examined. No new events. There will be an ethics meeting this week. - Current Medication List Current Medications: Active Medications Amlodipine Besylate (Norvasc -) 10 mg PO DAILY [facility] Last Admin: 12/11/18 11:09 Dose: 10 mg Levothyroxine Sodium (Synthroid -) 125 mcg PO DAILY@0700 [facility] Last Admin: 12/12/18 06:06 Dose: 125 mcg Metoprolol Tartrate (Lopressor Injection -) 5 mg IVPUSH Q4H PRN PRN Reason: TACHYCARDIA (HR > 110 BPM) Last Admin: 11/28/18 14:00 Dose: 5 mg Pantoprazole Sodium (Protonix Packets For Oral Suspension -) 40 mg PO BID [facility] Last Admin: 12/11/18 22:21 Dose: 40 mg - Objective Vital Signs: Vital Signs Temperature 98.2 F 12/12/18 05:53 Pulse Rate 64 12/12/18 05:53 Respiratory Rate 20 12/12/18 05:53 Blood Pressure 177/81 H 12/12/18 05:53 O2 Sat by Pulse Oximetry (%) 100 12/11/18 21:00 Constitutional: Yes: Calm Eyes: Yes: Conjunctiva Clear HENT: Yes: Atraumatic Neck: Yes: Supple Cardiovascular: Yes: S1, S2 Respiratory: Yes: CTA Bilaterally Gastrointestinal: Yes: Normal Bowel Sounds, Soft Genitourinary: Yes: Incontinence Musculoskeletal: Yes: Muscle Weakness Edema: No Neurological: Yes: Confusion Labs: CBC, BMP 12/09/18 12:28 12/07/18 05:40 INR, PTT INR 1.02 (0.83-1.09) 11/22/18 00:10 Problem List - Problems (1) GIB (gastrointestinal bleeding) Code(s): K92.2 - GASTROINTESTINAL HEMORRHAGE, UNSPECIFIED Qualifiers: GI bleed type/associated pathology: unspecified gastrointestinal hemorrhage type Qualified Code(s): K92.2 - Gastrointestinal hemorrhage, unspecified (2) CKD (chronic kidney disease) Code(s): N18.9 - CHRONIC KIDNEY DISEASE, UNSPECIFIED Qualifiers: Chronic kidney disease stage: on chronic dialysis Qualified Code(s): N18.6 - End stage renal disease; Z99.2 - Dependence on renal dialysis Assessment/Plan Current Medications Generic Name Dose Route Start Last Admin Trade Name Freq PRN Reason Stop Dose Admin Amlodipine Besylate 10 mg 11/28/18 16:15 12/11/18 11:09 Norvasc - PO 10 mg DAILY LINNEA Administration Levothyroxine Sodium 125 mcg 12/03/18 07:00 12/12/18 06:06 Synthroid - PO 125 mcg DAILY@0700 LINNEA Administration Metoprolol Tartrate 5 mg 11/22/18 22:27 11/28/18 14:00 Lopressor Injection - IVPUSH 5 mg Q4H PRN Administration TACHYCARDIA (HR > 110 BPM) Pantoprazole Sodium 40 mg 12/02/18 22:00 12/11/18 22:21 Protonix Packets For Oral Suspension - PO 40 mg BID LINNEA Administration Impression 1. CKD 2. right renal cyst 3. lucero 4. hypothryoid 5. dementia 6. parkinsons 7. HTN 8. gout 9. uremia 10. anemia 11. GI bleed Plan - monitor bp - new new events - follow ethics meeting - gi bleed can contribute to elevated bun - avoid nsaids - avoid nephrotoxins
[2018-12-12] MEDS: amLODIPine BESYLATE 10 MG TABLET (FP) PO SCH (10:39)
[2018-12-12] MEDS: PANTOPRAZOLE SOD 40 MG SUSPENSION PACKET PO SCH ×2 (10:39→23:56)
--- NOTE | 2018-12-12 15:38 | PN ---
Progress Note, Physician Chief Complaint: patient seen and examined awake alert - Current Medication List Current Medications: Active Medications Amlodipine Besylate (Norvasc -) 10 mg PO DAILY [facility] Last Admin: 12/12/18 10:39 Dose: 10 mg Levothyroxine Sodium (Synthroid -) 125 mcg PO DAILY@0700 [facility] Last Admin: 12/12/18 06:06 Dose: 125 mcg Metoprolol Tartrate (Lopressor Injection -) 5 mg IVPUSH Q4H PRN PRN Reason: TACHYCARDIA (HR > 110 BPM) Last Admin: 11/28/18 14:00 Dose: 5 mg Pantoprazole Sodium (Protonix Packets For Oral Suspension -) 40 mg PO BID [facility] Last Admin: 12/12/18 10:39 Dose: 40 mg - Objective Vital Signs: Vital Signs Temperature 98 F 12/12/18 10:00 Pulse Rate 72 12/12/18 10:00 Respiratory Rate 20 12/12/18 10:00 Blood Pressure 126/57 L 12/12/18 10:00 O2 Sat by Pulse Oximetry (%) 100 12/12/18 09:00 Constitutional: Yes: Calm, Thin Cardiovascular: Yes: Regular Rate and Rhythm, S1, S2 Respiratory: Yes: CTA Bilaterally Gastrointestinal: Yes: Normal Bowel Sounds, Soft Edema: No Labs: CBC, BMP 12/09/18 12:28 12/07/18 05:40 INR, PTT INR 1.02 (0.83-1.09) 11/22/18 00:10 Problem List - Problems (1) GIB (gastrointestinal bleeding) Assessment/Plan: s/p prbc 2 units repeat cbc today ethic committee meeting is tomorrow to decide course of action Code(s): K92.2 - GASTROINTESTINAL HEMORRHAGE, UNSPECIFIED Qualifiers: GI bleed type/associated pathology: unspecified gastrointestinal hemorrhage type Qualified Code(s): K92.2 - Gastrointestinal hemorrhage, unspecified (2) Hypothyroid Assessment/Plan: po synthroid Code(s): E03.9 - HYPOTHYROIDISM, UNSPECIFIED (3) HTN (hypertension) Code(s): I10 - ESSENTIAL (PRIMARY) HYPERTENSION
[2018-12-13] MEDS: LEVOTHYROXINE NA 125 MCG TABLET (FP) PO SCH (06:46)
--- NOTE | 2018-12-13 08:31 | PN ---
Progress Note, Physician - Current Medication List Current Medications: Active Medications Amlodipine Besylate (Norvasc -) 10 mg PO DAILY [facility] Last Admin: 12/12/18 10:39 Dose: 10 mg Levothyroxine Sodium (Synthroid -) 125 mcg PO DAILY@0700 [facility] Last Admin: 12/13/18 06:46 Dose: 125 mcg Metoprolol Tartrate (Lopressor Injection -) 5 mg IVPUSH Q4H PRN PRN Reason: TACHYCARDIA (HR > 110 BPM) Last Admin: 11/28/18 14:00 Dose: 5 mg Pantoprazole Sodium (Protonix Packets For Oral Suspension -) 40 mg PO BID [facility] Last Admin: 12/12/18 23:56 Dose: 40 mg - Objective Vital Signs: Vital Signs Temperature 97.8 F 12/13/18 06:00 Pulse Rate 62 12/13/18 06:00 Respiratory Rate 20 12/13/18 06:00 Blood Pressure 164/63 12/13/18 06:00 O2 Sat by Pulse Oximetry (%) 100 12/12/18 21:00 Cardiovascular: Yes: S1, S2 Respiratory: Yes: Regular, CTA Bilaterally Gastrointestinal: Yes: Normal Bowel Sounds, Soft Labs: CBC, BMP 12/09/18 12:28 12/07/18 05:40 INR, PTT INR 1.02 (0.83-1.09) 11/22/18 00:10 Assessment/Plan - Problems (1) GIB (gastrointestinal bleeding) Assessment/Plan: s/p prbc 2 units repeat cbc today ethic committee meeting today Code(s): K92.2 - GASTROINTESTINAL HEMORRHAGE, UNSPECIFIED Qualifiers: GI bleed type/associated pathology: unspecified gastrointestinal hemorrhage type Qualified Code(s): K92.2 - Gastrointestinal hemorrhage, unspecified (2) Hypothyroid Assessment/Plan: po synthroid Code(s): E03.9 - HYPOTHYROIDISM, UNSPECIFIED (3) HTN (hypertension) Code(s): I10 - ESSENTIAL (PRIMARY) HYPERTENSION
[2018-12-13] MEDS: amLODIPine BESYLATE 10 MG TABLET (FP) PO SCH (09:00)
[2018-12-13] MEDS: PANTOPRAZOLE SOD 40 MG SUSPENSION PACKET PO SCH ×2 (09:00→22:16)
--- NOTE | 2018-12-13 10:38 | PN ---
Progress Note, Physician History of Present Illness: Pt seen and examined at bedside. She is awake but confused. No new events. - Current Medication List Current Medications: Active Medications Amlodipine Besylate (Norvasc -) 10 mg PO DAILY [facility] Last Admin: 12/13/18 09:00 Dose: 10 mg Levothyroxine Sodium (Synthroid -) 125 mcg PO DAILY@0700 [facility] Last Admin: 12/13/18 06:46 Dose: 125 mcg Metoprolol Tartrate (Lopressor Injection -) 5 mg IVPUSH Q4H PRN PRN Reason: TACHYCARDIA (HR > 110 BPM) Last Admin: 11/28/18 14:00 Dose: 5 mg Pantoprazole Sodium (Protonix Packets For Oral Suspension -) 40 mg PO BID [facility] Last Admin: 12/13/18 09:00 Dose: 40 mg - Objective Vital Signs: Vital Signs Temperature 97.8 F 12/13/18 06:00 Pulse Rate 62 12/13/18 06:00 Respiratory Rate 20 12/13/18 06:00 Blood Pressure 164/63 12/13/18 06:00 O2 Sat by Pulse Oximetry (%) 100 12/12/18 21:00 Constitutional: Yes: Calm Eyes: Yes: Conjunctiva Clear HENT: Yes: Atraumatic Neck: Yes: Supple Cardiovascular: Yes: S1, S2 Respiratory: Yes: CTA Bilaterally Gastrointestinal: Yes: Soft Genitourinary: Yes: WNL Musculoskeletal: Yes: Muscle Weakness Edema: No Neurological: Yes: Confusion Labs: CBC, BMP 12/09/18 12:28 12/07/18 05:40 INR, PTT INR 1.02 (0.83-1.09) 11/22/18 00:10 Problem List - Problems (1) GIB (gastrointestinal bleeding) Code(s): K92.2 - GASTROINTESTINAL HEMORRHAGE, UNSPECIFIED Qualifiers: GI bleed type/associated pathology: unspecified gastrointestinal hemorrhage type Qualified Code(s): K92.2 - Gastrointestinal hemorrhage, unspecified (2) CKD (chronic kidney disease) Code(s): N18.9 - CHRONIC KIDNEY DISEASE, UNSPECIFIED Qualifiers: Chronic kidney disease stage: on chronic dialysis Qualified Code(s): N18.6 - End stage renal disease; Z99.2 - Dependence on renal dialysis Assessment/Plan Current Medications Generic Name Dose Route Start Last Admin Trade Name Freq PRN Reason Stop Dose Admin Amlodipine Besylate 10 mg 11/28/18 16:15 12/13/18 09:00 Norvasc - PO 10 mg DAILY [facility]A Administration Levothyroxine Sodium 125 mcg 12/03/18 07:00 12/13/18 06:46 Synthroid - PO 125 mcg DAILY@0700 LINNEA Administration Metoprolol Tartrate 5 mg 11/22/18 22:27 11/28/18 14:00 Lopressor Injection - IVPUSH 5 mg Q4H PRN Administration TACHYCARDIA (HR > 110 BPM) Pantoprazole Sodium 40 mg 12/02/18 22:00 12/13/18 09:00 Protonix Packets For Oral Suspension - PO 40 mg BID LINNEA Administration Impression 1. CKD 2. right renal cyst 3. lucero 4. hypothryoid 5. dementia 6. parkinsons 7. HTN 8. gout 9. uremia 10. anemia 11. GI bleed Plan - bp is not optimal, can add hydralazine - check labs if she agrees - follow ethics meeting - gi bleed can contribute to elevated bun - avoid nsaids - avoid nephrotoxins
[2018-12-13] MEDS: hydrALAZINE HCL 10 MG TABLET PO SCH (12:50)
--- NOTE | 2018-12-13 13:39 | PN ---
Progress Note (short form) - Note Progress Note: Ethics followup. I just completed an extensive interview via conference call with the hospital assistant city attorney Cely Gabriel in the office of our [employer] Tiffany Chavez who was present. There was agreement that since she is currently deemed not to have medical decision making capacity and no surrogates are available then the attending MD and a concurring MD part of her health care team can make medical decisions for her. If these decisions however involve life sustaining treatments like DNR then a formal ethics meeting would have to be convened to see if the conditions listed in the Health Care Decisions Act are met for those circumstances. I asked if a guardianship should be applied for if these decisions continue to present themselves. Cely thought that was desirable and since the patient is a detention resident of [facility] they should pursue that goal. Cely also asked whether anxiety on the AM of endoscopy is causing her to refuse the EGD on multiple mornings. If the Psychiatrist thinks that anxiety is a component of her refusal he may want to order medication .
[2018-12-14] MEDS: LEVOTHYROXINE NA 125 MCG TABLET (FP) PO SCH (06:05)
[2018-12-14 06:59] LABS: BASO % 0.9 % (0-2.0); HEMATOCRIT 27.1 % (32.4-45.2); HEMOGLOBIN 9.3 GM/dL (10.7-15.3); LYMPH % 20.2 % (8-40); MCH 30.2 pg (25.7-33.7); MCHC 34.2 g/dl (32.0-36.0); MEAN CELL VOLUME 88.4 fl (80-96); MEAN PLT VOLUME 7.7 fl (7.5-11.1); MONO % 8.9 % (3.8-10.2); PLATELET COUNT 347 K/MM3 (134-434); RBC 3.06 M/mm3 (3.60-5.2); RDW 15.6 % (11.6-15.6); WHITE BLOOD COUNT 4.9 K/mm3 (4.0-10.0)
[2018-12-14 07:09] LABS: BLOOD UREA NITROGEN 83.8 mg/dL (7-18); CALCIUM 8.9 mg/dL (8.5-10.1); POTASSIUM 4.9 mmol/L (3.5-5.1)
--- NOTE | 2018-12-14 07:43 | PN ---
Progress Note, Physician - Current Medication List Current Medications: Active Medications Amlodipine Besylate (Norvasc -) 10 mg PO DAILY [facility] Last Admin: 12/13/18 09:00 Dose: 10 mg Hydralazine HCl (Apresoline -) 10 mg PO DAILY [facility] Last Admin: 12/13/18 12:50 Dose: 10 mg Levothyroxine Sodium (Synthroid -) 125 mcg PO DAILY@0700 [facility] Last Admin: 12/14/18 06:05 Dose: 125 mcg Metoprolol Tartrate (Lopressor Injection -) 5 mg IVPUSH Q4H PRN PRN Reason: TACHYCARDIA (HR > 110 BPM) Last Admin: 11/28/18 14:00 Dose: 5 mg Pantoprazole Sodium (Protonix Packets For Oral Suspension -) 40 mg PO BID [facility] Last Admin: 12/13/18 22:16 Dose: 40 mg - Objective Vital Signs: Vital Signs Temperature 98.2 F 12/14/18 05:59 Pulse Rate 61 12/14/18 05:59 Respiratory Rate 20 12/14/18 05:59 Blood Pressure 154/62 12/14/18 05:59 O2 Sat by Pulse Oximetry (%) 100 12/13/18 20:46 Cardiovascular: Yes: Regular Rate and Rhythm Respiratory: Yes: Regular, CTA Bilaterally Gastrointestinal: Yes: Normal Bowel Sounds, Soft Labs: CBC, BMP 12/14/18 05:25 INR, PTT INR 1.02 (0.83-1.09) 11/22/18 00:10 Problem List - Problems (1) GIB (gastrointestinal bleeding) Assessment/Plan: s/p prbc repeat cbc today ethic committee meeting noted--2 physician consent for procedures GI follow up Code(s): K92.2 - GASTROINTESTINAL HEMORRHAGE, UNSPECIFIED Qualifiers: GI bleed type/associated pathology: unspecified gastrointestinal hemorrhage type Qualified Code(s): K92.2 - Gastrointestinal hemorrhage, unspecified (2) Anemia Assessment/Plan: -monitor and transfuse Code(s): D64.9 - ANEMIA, UNSPECIFIED Qualifiers: Anemia type: unspecified type Qualified Code(s): D64.9 - Anemia, unspecified (3) CKD (chronic kidney disease) Assessment/Plan: acute on chronic us ivf renal on case Code(s): N18.9 - CHRONIC KIDNEY DISEASE, UNSPECIFIED Qualifiers: Chronic kidney disease stage: on chronic dialysis Qualified Code(s): N18.6 - End stage renal disease; Z99.2 - Dependence on renal dialysis (4) COPD (chronic obstructive pulmonary disease) Code(s): J44.9 - CHRONIC OBSTRUCTIVE PULMONARY DISEASE, UNSPECIFIED
[2018-12-14] MEDS ORDERED: D5-1/2NS+20 MEQ KCL - 20 MEQ/1,000 ML INFUS.BAG IV SCH (08:30)
[2018-12-14] MEDS: hydrALAZINE HCL 10 MG TABLET PO SCH ×2 (10:03→21:14)
[2018-12-14] MEDS: PANTOPRAZOLE SOD 40 MG SUSPENSION PACKET PO SCH ×2 (10:03→21:14)
[2018-12-14] MEDS: amLODIPine BESYLATE 10 MG TABLET (FP) PO SCH (10:03)
--- NOTE | 2018-12-14 12:56 | PN ---
Progress Note, Physician History of Present Illness: Pt seen and examined at bedside. She is awake and appears comfortable. - Current Medication List Current Medications: Active Medications Amlodipine Besylate (Norvasc -) 10 mg PO DAILY [facility] Last Admin: 12/14/18 10:03 Dose: 10 mg Hydralazine HCl (Apresoline -) 10 mg PO DAILY [facility] Last Admin: 12/14/18 10:03 Dose: 10 mg Potassium Chloride/Dextrose/Sod Cl (D5-1/2ns+20 Meq Kcl -) 20 meq in 1,000 mls @ 75 mls/hr IV ASDIR [facility] Last Admin: 12/14/18 10:00 Dose: 75 mls/hr Levothyroxine Sodium (Synthroid -) 125 mcg PO DAILY@0700 [facility] Last Admin: 12/14/18 06:05 Dose: 125 mcg Metoprolol Tartrate (Lopressor Injection -) 5 mg IVPUSH Q4H PRN PRN Reason: TACHYCARDIA (HR > 110 BPM) Last Admin: 11/28/18 14:00 Dose: 5 mg Pantoprazole Sodium (Protonix Packets For Oral Suspension -) 40 mg PO BID [facility] Last Admin: 12/14/18 10:03 Dose: 40 mg - Objective Vital Signs: Vital Signs Temperature 98.2 F 12/14/18 05:59 Pulse Rate 61 12/14/18 05:59 Respiratory Rate 20 12/14/18 05:59 Blood Pressure 154/62 12/14/18 05:59 O2 Sat by Pulse Oximetry (%) 100 12/13/18 20:46 Constitutional: Yes: Calm Eyes: Yes: Conjunctiva Clear HENT: Yes: Atraumatic Neck: Yes: Supple Cardiovascular: Yes: S1, S2 Respiratory: Yes: CTA Bilaterally Gastrointestinal: Yes: Soft Genitourinary: Yes: Incontinence Musculoskeletal: Yes: Muscle Weakness Edema: No Integumentary: Yes: WNL Neurological: Yes: Confusion Labs: CBC, BMP 12/14/18 05:25 12/14/18 05:25 INR, PTT INR 1.02 (0.83-1.09) 11/22/18 00:10 Problem List - Problems (1) GIB (gastrointestinal bleeding) Code(s): K92.2 - GASTROINTESTINAL HEMORRHAGE, UNSPECIFIED Qualifiers: GI bleed type/associated pathology: unspecified gastrointestinal hemorrhage type Qualified Code(s): K92.2 - Gastrointestinal hemorrhage, unspecified (2) CKD (chronic kidney disease) Code(s): N18.9 - CHRONIC KIDNEY DISEASE, UNSPECIFIED Qualifiers: Chronic kidney disease stage: on chronic dialysis Qualified Code(s): N18.6 - End stage renal disease; Z99.2 - Dependence on renal dialysis Assessment/Plan Current Medications Generic Name Dose Route Start Last Admin Trade Name Freq PRN Reason Stop Dose Admin Amlodipine Besylate 10 mg 11/28/18 16:15 12/14/18 10:03 Norvasc - PO 10 mg DAILY [facility]NEA Administration Hydralazine HCl 10 mg 12/13/18 10:45 12/14/18 10:03 Apresoline - PO 10 mg DAILY LINNEA Administration Potassium Chloride/Dextrose/Sod Cl 20 meq in 1,000 mls @ 75 mls/hr 12/14/18 08 :30 12/14/18 10:00 D5-1/2ns+20 Meq Kcl - IV 75 mls/hr ASDIR LINNEA Administration Levothyroxine Sodium 125 mcg 12/03/18 07:00 12/14/18 06:05 Synthroid - PO 125 mcg DAILY@0700 LINNEA Administration Metoprolol Tartrate 5 mg 11/22/18 22:27 11/28/18 14:00 Lopressor Injection - IVPUSH 5 mg Q4H PRN Administration TACHYCARDIA (HR > 110 BPM) Pantoprazole Sodium 40 mg 12/02/18 22:00 12/14/18 10:03 Protonix Packets For Oral Suspension - PO 40 mg BID LINNEA Administration Impression 1. CKD 2. right renal cyst 3. lucero 4. hypothryoid 5. dementia 6. parkinsons 7. HTN 8. gout 9. uremia 10. anemia 11. GI bleed Plan - cont hydralazine, can do bid - fluids while npo - ehtics meeting input appreciated - gi bleed can contribute to elevated bun - avoid nsaids - avoid nephrotoxins
--- NOTE | 2018-12-14 17:14 | PN ---
Progress Note (short form) - Note Progress Note: Brief GI note Dr. Callejas's note reviewed, attempted to contact to clarify (was drafted note) unable to reach though advising 2 pc consent for procedures. Spoke with Dr. Xiong as would need to be completed by primary physician and other provider not those performing the procedure. Would also recommend psych follow up to assess for anxiety component as suggested by pt refusing EGD on day of scheduled procedure as noted by Dr. Callejas. Pending above and if 2pc consent completed tomorrow can tentatively plan for EGD on Wednesday. Will also need anesthesia consent. Discussed above with Dr. Xiong.
[2018-12-15] MEDS: LEVOTHYROXINE NA 125 MCG TABLET (FP) PO SCH (06:34)
[2018-12-15 07:06] LABS: BASO % 0.9 % (0-2.0); EOS % 5.6 % (0-4.5); HEMATOCRIT 26.5 % (32.4-45.2); HEMOGLOBIN 8.9 GM/dL (10.7-15.3); LYMPH % 24.7 % (8-40); MCHC 33.7 g/dl (32.0-36.0); MEAN PLT VOLUME 7.8 fl (7.5-11.1); MONO % 11.4 % (3.8-10.2); NEUT % 57.4 % (42.8-82.8); PLATELET COUNT 393 K/MM3 (134-434); RBC 2.98 M/mm3 (3.60-5.2); RDW 15.6 % (11.6-15.6)
[2018-12-15 08:21] LABS: ALBUMIN 2.6 g/dl (3.4-5.0); BILIRUBIN,TOTAL 0.4 mg/dL (0.2-1); BLOOD UREA NITROGEN 87.6 mg/dL (7-18); CREATININE 2.1 mg/dL (0.55-1.3); POTASSIUM 5.3 mmol/L (3.5-5.1); TOT PROT 6.3 g/dl (6.4-8.2)
[2018-12-15] MEDS: DEXTROSE 5%-0.45% SALINE 1,000 ML IV SCH (09:00)
[2018-12-15] MEDS: PANTOPRAZOLE SOD 40 MG SUSPENSION PACKET PO SCH ×2 (09:01→21:01)
[2018-12-15] MEDS: hydrALAZINE HCL 10 MG TABLET PO SCH ×2 (09:01→21:02)
[2018-12-15] MEDS: amLODIPine BESYLATE 10 MG TABLET (FP) PO SCH (09:01)
[2018-12-15 09:03] LABS: WHITE BLOOD COUNT 5.4 K/mm3 (4.0-10.0)
--- NOTE | 2018-12-15 14:35 | PN ---
Progress Note, Physician Chief Complaint: patient going for EGD wednesday and today going down for renal sono awake alert calm - Current Medication List Current Medications: Active Medications Amlodipine Besylate (Norvasc -) 10 mg PO DAILY [facility] Last Admin: 12/15/18 09:01 Dose: 10 mg Hydralazine HCl (Apresoline -) 10 mg PO BID [facility] Last Admin: 12/15/18 09:01 Dose: 10 mg Dextrose/Sodium Chloride (D5-1/2ns -) 1,000 mls @ 83 mls/hr IV ASDIR [facility] Last Admin: 12/15/18 09:00 Dose: 83 mls/hr Levothyroxine Sodium (Synthroid -) 125 mcg PO DAILY@0700 [facility] Last Admin: 12/15/18 06:34 Dose: 125 mcg Metoprolol Tartrate (Lopressor Injection -) 5 mg IVPUSH Q4H PRN PRN Reason: TACHYCARDIA (HR > 110 BPM) Last Admin: 11/28/18 14:00 Dose: 5 mg Pantoprazole Sodium (Protonix Packets For Oral Suspension -) 40 mg PO BID [facility] Last Admin: 12/15/18 09:01 Dose: 40 mg - Objective Vital Signs: Vital Signs Temperature 97.8 F 12/15/18 01:00 Pulse Rate 63 12/15/18 05:00 Respiratory Rate 20 12/15/18 05:00 Blood Pressure 157/81 12/15/18 05:00 O2 Sat by Pulse Oximetry (%) 95 12/14/18 21:00 Constitutional: Yes: Calm Cardiovascular: Yes: Regular Rate and Rhythm, S1, S2 Respiratory: Yes: CTA Bilaterally Gastrointestinal: Yes: Normal Bowel Sounds, Soft Edema: No Neurological: Yes: Alert Labs: CBC, BMP 12/15/18 05:45 12/15/18 05:45 INR, PTT INR 1.02 (0.83-1.09) 11/22/18 00:10 Problem List - Problems (1) GIB (gastrointestinal bleeding) Assessment/Plan: 2 physician consult for Egd on wednesday Code(s): K92.2 - GASTROINTESTINAL HEMORRHAGE, UNSPECIFIED Qualifiers: GI bleed type/associated pathology: unspecified gastrointestinal hemorrhage type Qualified Code(s): K92.2 - Gastrointestinal hemorrhage, unspecified (2) Hypothyroid Assessment/Plan: po synthroid Code(s): E03.9 - HYPOTHYROIDISM, UNSPECIFIED (3) HTN (hypertension) Assessment/Plan: amlodipine Code(s): I10 - ESSENTIAL (PRIMARY) HYPERTENSION (4) CKD (chronic kidney disease) Assessment/Plan: renal sono Code(s): N18.9 - CHRONIC KIDNEY DISEASE, UNSPECIFIED
--- NOTE | 2018-12-15 16:47 | PN ---
Progress Note, Physician History of Present Illness: Pt seen and examined at bedside. She is awake and appears comfortable. - Current Medication List Current Medications: Active Medications Amlodipine Besylate (Norvasc -) 10 mg PO DAILY [facility] Last Admin: 12/15/18 09:01 Dose: 10 mg Hydralazine HCl (Apresoline -) 10 mg PO BID [facility] Last Admin: 12/15/18 09:01 Dose: 10 mg Dextrose/Sodium Chloride (D5-1/2ns -) 1,000 mls @ 83 mls/hr IV ASDIR [facility] Last Admin: 12/15/18 09:00 Dose: 83 mls/hr Levothyroxine Sodium (Synthroid -) 125 mcg PO DAILY@0700 [facility] Last Admin: 12/15/18 06:34 Dose: 125 mcg Metoprolol Tartrate (Lopressor Injection -) 5 mg IVPUSH Q4H PRN PRN Reason: TACHYCARDIA (HR > 110 BPM) Last Admin: 11/28/18 14:00 Dose: 5 mg Pantoprazole Sodium (Protonix Packets For Oral Suspension -) 40 mg PO BID [facility] Last Admin: 12/15/18 09:01 Dose: 40 mg - Objective Vital Signs: Vital Signs Temperature 98.8 F 12/15/18 09:00 Pulse Rate 63 12/15/18 09:00 Respiratory Rate 22 H 12/15/18 09:00 Blood Pressure 164/69 12/15/18 09:00 O2 Sat by Pulse Oximetry (%) 95 12/14/18 21:00 Constitutional: Yes: Calm Eyes: Yes: Conjunctiva Clear HENT: Yes: Atraumatic Neck: Yes: Supple Cardiovascular: Yes: S1, S2 Respiratory: Yes: CTA Bilaterally Gastrointestinal: Yes: Normal Bowel Sounds, Soft Genitourinary: Yes: Incontinence Musculoskeletal: Yes: Muscle Weakness Edema: No Neurological: Yes: Confusion Labs: CBC, BMP 12/15/18 05:45 12/15/18 05:45 INR, PTT INR 1.02 (0.83-1.09) 11/22/18 00:10 Problem List - Problems (1) GIB (gastrointestinal bleeding) Code(s): K92.2 - GASTROINTESTINAL HEMORRHAGE, UNSPECIFIED Qualifiers: GI bleed type/associated pathology: unspecified gastrointestinal hemorrhage type Qualified Code(s): K92.2 - Gastrointestinal hemorrhage, unspecified (2) CKD (chronic kidney disease) Code(s): N18.9 - CHRONIC KIDNEY DISEASE, UNSPECIFIED Qualifiers: Chronic kidney disease stage: on chronic dialysis Qualified Code(s): N18.6 - End stage renal disease; Z99.2 - Dependence on renal dialysis Assessment/Plan Current Medications Generic Name Dose Route Start Last Admin Trade Name Freq PRN Reason Stop Dose Admin Amlodipine Besylate 10 mg 11/28/18 16:15 12/15/18 09:01 Norvasc - PO 10 mg DAILY [facility] Administration Hydralazine HCl 10 mg 12/14/18 22:00 12/15/18 09:01 Apresoline - PO 10 mg BID LINNEA Administration Dextrose/Sodium Chloride 1,000 mls @ 83 mls/hr 12/15/18 08:30 12/15/18 09:00 D5-1/2ns - IV 83 mls/hr ASDIR [facility]A Administration Levothyroxine Sodium 125 mcg 12/03/18 07:00 12/15/18 06:34 Synthroid - PO 125 mcg DAILY@0700 [facility]NEA Administration Metoprolol Tartrate 5 mg 11/22/18 22:27 11/28/18 14:00 Lopressor Injection - IVPUSH 5 mg Q4H PRN Administration TACHYCARDIA (HR > 110 BPM) Pantoprazole Sodium 40 mg 12/02/18 22:00 12/15/18 09:01 Protonix Packets For Oral Suspension - PO 40 mg BID LINNEA Administration Impression 1. CKD 2. right renal cyst 3. lucero 4. hypothryoid 5. dementia 6. parkinsons 7. HTN 8. gout 9. uremia 10. anemia 11. GI bleed Plan - d/c'd potassium from fluids - repeat labs in am - renal ultrasound reviewed - avoid nsaids - avoid nephrotoxins
--- NOTE | 2018-12-15 17:53 | PN ---
Progress Note (short form) - Note Progress Note: Patient agreeing to have upper endoscopy performed. Two physician consent obtained. NPO after midnight for possible EGD 12/16. AM labs ordered including type and cross. Problem List - Problems (1) GIB (gastrointestinal bleeding) Code(s): K92.2 - GASTROINTESTINAL HEMORRHAGE, UNSPECIFIED Qualifiers: GI bleed type/associated pathology: unspecified gastrointestinal hemorrhage type Qualified Code(s): K92.2 - Gastrointestinal hemorrhage, unspecified
[2018-12-16] MEDS: LEVOTHYROXINE NA 125 MCG TABLET (FP) PO SCH (06:39)
[2018-12-16 06:49] LABS: BASO % 0.9 % (0-2.0); EOS % 5.8 % (0-4.5); HEMATOCRIT 26.6 % (32.4-45.2); HEMOGLOBIN 8.8 GM/dL (10.7-15.3); LYMPH % 21.5 % (8-40); MCH 29.2 pg (25.7-33.7); MEAN CELL VOLUME 88.6 fl (80-96); MEAN PLT VOLUME 7.5 fl (7.5-11.1); MONO % 9.6 % (3.8-10.2); NEUT % 62.2 % (42.8-82.8); PLATELET COUNT 427 K/MM3 (134-434); RBC 3.01 M/mm3 (3.60-5.2); RDW 15.8 % (11.6-15.6); WHITE BLOOD COUNT 5.5 K/mm3 (4.0-10.0)
[2018-12-16 06:51] LABS: INR 0.92 (0.83-1.09); PROTHROMBIN TIME (PATIENT) 10.8 SEC (9.7-13.0)
[2018-12-16 06:54] LABS: ACTIVATED PTT 31.2 SECONDS (25.2-36.5)
[2018-12-16 07:18] LABS: ALBUMIN 2.7 g/dl (3.4-5.0); BILIRUBIN,TOTAL 0.4 mg/dL (0.2-1); CALCIUM 9.1 mg/dL (8.5-10.1); CREATININE 2.1 mg/dL (0.55-1.3); POTASSIUM 5.2 mmol/L (3.5-5.1); TOT PROT 6.5 g/dl (6.4-8.2)
[2018-12-16] MEDS: DEXTROSE 5%-0.45% SALINE 1,000 ML IV SCH (10:24)
[2018-12-16] MEDS: hydrALAZINE HCL 10 MG TABLET PO SCH ×2 (10:39→21:53)
[2018-12-16] MEDS: amLODIPine BESYLATE 10 MG TABLET (FP) PO SCH (10:39)
[2018-12-16] MEDS: PANTOPRAZOLE SOD 40 MG SUSPENSION PACKET PO SCH (10:39)
--- NOTE | 2018-12-16 11:36 | PN ---
Progress Note, Physician Chief Complaint: patient is NPO for egd today two physician consent signed - Current Medication List Current Medications: Active Medications Amlodipine Besylate (Norvasc -) 10 mg PO DAILY [facility] Last Admin: 12/16/18 10:39 Dose: 10 mg Hydralazine HCl (Apresoline -) 10 mg PO BID [facility] Last Admin: 12/16/18 10:39 Dose: 10 mg Dextrose/Sodium Chloride (D5-1/2ns -) 1,000 mls @ 83 mls/hr IV ASDIR [facility] Last Admin: 12/16/18 10:24 Dose: 83 mls/hr Levothyroxine Sodium (Synthroid -) 125 mcg PO DAILY@0700 [facility] Last Admin: 12/16/18 06:39 Dose: Not Given Metoprolol Tartrate (Lopressor Injection -) 5 mg IVPUSH Q4H PRN PRN Reason: TACHYCARDIA (HR > 110 BPM) Last Admin: 11/28/18 14:00 Dose: 5 mg Pantoprazole Sodium (Protonix Packets For Oral Suspension -) 40 mg PO BID [facility] Last Admin: 12/16/18 10:39 Dose: 40 mg - Objective Vital Signs: Vital Signs Temperature 97.3 F L 12/16/18 10:00 Pulse Rate 65 12/16/18 10:00 Respiratory Rate 18 12/16/18 10:00 Blood Pressure 130/57 L 12/16/18 10:00 O2 Sat by Pulse Oximetry (%) 99 12/16/18 08:14 Constitutional: Yes: Calm, Thin Cardiovascular: Yes: Regular Rate and Rhythm, S1, S2 Respiratory: Yes: CTA Bilaterally Gastrointestinal: Yes: Normal Bowel Sounds, Soft Edema: No Neurological: Yes: Alert Labs: CBC, BMP 12/16/18 06:10 12/16/18 06:10 INR, PTT INR 0.92 (0.83-1.09) 12/16/18 06:10 Problem List - Problems (1) GIB (gastrointestinal bleeding) Assessment/Plan: 2 physician consult for Egd today Code(s): K92.2 - GASTROINTESTINAL HEMORRHAGE, UNSPECIFIED Qualifiers: GI bleed type/associated pathology: unspecified gastrointestinal hemorrhage type Qualified Code(s): K92.2 - Gastrointestinal hemorrhage, unspecified (2) Hypothyroid Assessment/Plan: po synthroid Code(s): E03.9 - HYPOTHYROIDISM, UNSPECIFIED (3) HTN (hypertension) Assessment/Plan: amlodipine Code(s): I10 - ESSENTIAL (PRIMARY) HYPERTENSION (4) CKD (chronic kidney disease) Assessment/Plan: renal sono noted moderately atrophic kidneys potassium trending down Code(s): N18.9 - CHRONIC KIDNEY DISEASE, UNSPECIFIED
--- NOTE | 2018-12-16 12:28 | PN ---
Progress Note (short form) - Note Progress Note: dc telemetry can transfer to [facility] isolation room Problem List - Problems (1) GIB (gastrointestinal bleeding) Code(s): K92.2 - GASTROINTESTINAL HEMORRHAGE, UNSPECIFIED Qualifiers: GI bleed type/associated pathology: unspecified gastrointestinal hemorrhage type Qualified Code(s): K92.2 - Gastrointestinal hemorrhage, unspecified (2) Hypothyroid Code(s): E03.9 - HYPOTHYROIDISM, UNSPECIFIED (3) HTN (hypertension) Code(s): I10 - ESSENTIAL (PRIMARY) HYPERTENSION (4) CKD (chronic kidney disease) Code(s): N18.9 - CHRONIC KIDNEY DISEASE, UNSPECIFIED
--- NOTE | 2018-12-16 14:50 | PN ---
Progress Note, Physician History of Present Illness: Pt seen and examined at bedside. She appears comfortable. She denies shortness of breath. - Current Medication List Current Medications: Active Medications Amlodipine Besylate (Norvasc -) 10 mg PO DAILY [facility] Last Admin: 12/16/18 10:39 Dose: 10 mg Hydralazine HCl (Apresoline -) 10 mg PO BID [facility] Last Admin: 12/16/18 10:39 Dose: 10 mg Dextrose/Sodium Chloride (D5-1/2ns -) 1,000 mls @ 83 mls/hr IV ASDIR [facility] Last Admin: 12/16/18 10:24 Dose: 83 mls/hr Levothyroxine Sodium (Synthroid -) 125 mcg PO DAILY@0700 [facility] Last Admin: 12/16/18 06:39 Dose: Not Given Metoprolol Tartrate (Lopressor Injection -) 5 mg IVPUSH Q4H PRN PRN Reason: TACHYCARDIA (HR > 110 BPM) Last Admin: 11/28/18 14:00 Dose: 5 mg Pantoprazole Sodium (Protonix Packets For Oral Suspension -) 40 mg PO BID [facility] Last Admin: 12/16/18 10:39 Dose: 40 mg - Objective Vital Signs: Vital Signs Temperature 97.3 F L 12/16/18 10:00 Pulse Rate 65 12/16/18 10:00 Respiratory Rate 18 12/16/18 10:00 Blood Pressure 130/57 L 12/16/18 10:00 O2 Sat by Pulse Oximetry (%) 99 12/16/18 08:14 Constitutional: Yes: Calm Eyes: Yes: Conjunctiva Clear HENT: Yes: Atraumatic Cardiovascular: Yes: S1, S2 Respiratory: Yes: CTA Bilaterally Gastrointestinal: Yes: Soft Genitourinary: Yes: Incontinence Edema: No Integumentary: Yes: WNL Neurological: Yes: Confusion Labs: CBC, BMP 12/16/18 06:10 12/16/18 06:10 INR, PTT INR 0.92 (0.83-1.09) 12/16/18 06:10 Problem List - Problems (1) GIB (gastrointestinal bleeding) Code(s): K92.2 - GASTROINTESTINAL HEMORRHAGE, UNSPECIFIED Qualifiers: GI bleed type/associated pathology: unspecified gastrointestinal hemorrhage type Qualified Code(s): K92.2 - Gastrointestinal hemorrhage, unspecified (2) CKD (chronic kidney disease) Code(s): N18.9 - CHRONIC KIDNEY DISEASE, UNSPECIFIED Qualifiers: Chronic kidney disease stage: on chronic dialysis Qualified Code(s): N18.6 - End stage renal disease; Z99.2 - Dependence on renal dialysis Assessment/Plan Current Medications Generic Name Dose Route Start Last Admin Trade Name Freq PRN Reason Stop Dose Admin Amlodipine Besylate 10 mg 11/28/18 16:15 12/16/18 10:39 Norvasc - PO 10 mg DAILY [facility] Administration Hydralazine HCl 10 mg 12/14/18 22:00 12/16/18 10:39 Apresoline - PO 10 mg BID [facility] Administration Dextrose/Sodium Chloride 1,000 mls @ 83 mls/hr 12/15/18 08:30 12/16/18 10:24 D5-1/2ns - IV 83 mls/hr ASDIR [facility] Administration Levothyroxine Sodium 125 mcg 12/03/18 07:00 12/16/18 06:39 Synthroid - PO Not Given DAILY@0700 [facility] Metoprolol Tartrate 5 mg 11/22/18 22:27 11/28/18 14:00 Lopressor Injection - IVPUSH 5 mg Q4H PRN Administration TACHYCARDIA (HR > 110 BPM) Pantoprazole Sodium 40 mg 12/02/18 22:00 12/16/18 10:39 Protonix Packets For Oral Suspension - PO 40 mg BID [facility] Administration Impression 1. CKD 2. right renal cyst 3. lucero 4. hypothryoid 5. dementia 6. parkinsons 7. HTN 8. gout 9. uremia 10. anemia 11. GI bleed Plan - cont fluids - pt getting endoscopy today - monitor luytes - potassium improving - repeat labs in am - avoid nsaids - avoid nephrotoxins
[2018-12-16] MEDS ORDERED: MIDAZOLAM HCL 2 MG/2 ML SINGLE DOSE VIAL ONE (15:48)
--- NOTE | 2018-12-16 16:42 | PN ---
Progress Note (short form) - Note Progress Note: EGD complete. Report left in procedural section of physical chart and to be scanned into [employer]. No upper GI source of bleeding identified. Problem List - Problems (1) GIB (gastrointestinal bleeding) Code(s): K92.2 - GASTROINTESTINAL HEMORRHAGE, UNSPECIFIED Qualifiers: GI bleed type/associated pathology: unspecified gastrointestinal hemorrhage type Qualified Code(s): K92.2 - Gastrointestinal hemorrhage, unspecified
[2018-12-17] MEDS: LEVOTHYROXINE NA 125 MCG TABLET (FP) PO SCH (06:40)
--- NOTE | 2018-12-17 09:07 | PN ---
Progress Note, Physician Chief Complaint: GI bleed History of Present Illness: NAD Seen by GI Chronic GI bleed Seen by Psych- deemed to lack functional capacity to make decisions. Had EGD yesterday-showed no UGI bleed, perhaps, LGI bleed? - Current Medication List Current Medications: Active Medications Amlodipine Besylate (Norvasc -) 10 mg PO DAILY [facility] Last Admin: 12/16/18 10:39 Dose: 10 mg Hydralazine HCl (Apresoline -) 10 mg PO BID [facility] Last Admin: 12/16/18 21:53 Dose: 10 mg Dextrose/Sodium Chloride (D5-1/2ns -) 1,000 mls @ 83 mls/hr IV ASDIR [facility] Last Admin: 12/16/18 10:24 Dose: 83 mls/hr Levothyroxine Sodium (Synthroid -) 125 mcg PO DAILY@0700 [facility] Last Admin: 12/17/18 06:40 Dose: 125 mcg Metoprolol Tartrate (Lopressor Injection -) 5 mg IVPUSH Q4H PRN PRN Reason: TACHYCARDIA (HR > 110 BPM) Last Admin: 11/28/18 14:00 Dose: 5 mg Pantoprazole Sodium (Protonix -) 40 mg PO DAILY [facility] - Objective Vital Signs: Vital Signs Temperature 97.8 F 12/17/18 06:00 Pulse Rate 62 12/17/18 06:00 Respiratory Rate 18 12/17/18 06:00 Blood Pressure 165/70 12/17/18 06:00 O2 Sat by Pulse Oximetry (%) 97 12/16/18 20:01 Constitutional: Yes: No Distress, Calm, Thin Cardiovascular: Yes: Regular Rate and Rhythm Respiratory: Yes: Regular Gastrointestinal: Yes: WNL, Normal Bowel Sounds, Soft Genitourinary: Yes: Incontinence Musculoskeletal: Yes: Muscle Weakness Extremities: Yes: WNL Edema: No Peripheral Pulses WNL: Yes Neurological: Yes: Alert, Confusion Psychiatric: Yes: Alert Labs: CBC, BMP 12/16/18 06:10 12/16/18 06:10 INR, PTT INR 0.92 (0.83-1.09) 12/16/18 06:10 Assessment/Plan (1) GIB (gastrointestinal bleeding) Assessment/Plan: -GI consult -received 4 U PRB this admission -Stool OB positive -Pantoprazole -EGD-unremarkable, perhaps lower GI bleed? Code(s): K92.2 - GASTROINTESTINAL HEMORRHAGE, UNSPECIFIED Qualifiers: GI bleed type/associated pathology: unspecified gastrointestinal hemorrhage type Qualified Code(s): K92.2 - Gastrointestinal hemorrhage, unspecified (2) Anemia Assessment/Plan: -GI consult -2U PRBC transfusion -Stool OB positive -Pantoprazole -Restart diet for now Code(s): D64.9 - ANEMIA, UNSPECIFIED Qualifiers: Anemia type: unspecified type Qualified Code(s): D64.9 - Anemia, unspecified (3) CHF (congestive heart failure) Assessment/Plan: -1L fluid restriction -daily weights Code(s): I50.9 - HEART FAILURE, UNSPECIFIED (4) CKD (chronic kidney disease) Assessment/Plan: -Renal consult -Cr stable at this time Code(s): N18.9 - CHRONIC KIDNEY DISEASE, UNSPECIFIED Qualifiers: Chronic kidney disease stage: on chronic dialysis Qualified Code(s): N18.6 - End stage renal disease; Z99.2 - Dependence on renal dialysis (5) HTN (hypertension) Assessment/Plan: -monitor BP Code(s): I10 - ESSENTIAL (PRIMARY) HYPERTENSION (6) Hypothyroid Assessment/Plan: -Levothyroxine Code(s): E03.9 - HYPOTHYROIDISM, UNSPECIFIED Physical therapy
[2018-12-17] MEDS: PANTOPRAZOLE 40 MG TABLET (FP) PO SCH (10:39)
[2018-12-17] MEDS: amLODIPine BESYLATE 10 MG TABLET (FP) PO SCH (10:39)
[2018-12-17] MEDS: hydrALAZINE HCL 10 MG TABLET PO SCH ×3 (10:39→21:15)
[2018-12-17] MEDS ORDERED: ACETAMINOPHEN 325 MG TABLET (FP) PO PRN (11:39)
[2018-12-17] MEDS: DEXTROSE 5%-0.45% SALINE 1,000 ML IV SCH (13:13)
--- NOTE | 2018-12-17 16:31 | PN ---
Progress Note, Physician History of Present Illness: Pt seen and examined at bedside. She is awake and appears comfortable. - Current Medication List Current Medications: Active Medications Acetaminophen (Tylenol -) 650 mg PO Q4H PRN PRN Reason: PAIN Amlodipine Besylate (Norvasc -) 10 mg PO DAILY [facility] Last Admin: 12/17/18 10:39 Dose: 10 mg Hydralazine HCl (Apresoline -) 10 mg PO BID [facility] Last Admin: 12/17/18 10:39 Dose: 10 mg Dextrose/Sodium Chloride (D5-1/2ns -) 1,000 mls @ 83 mls/hr IV ASDIR [facility] Last Admin: 12/17/18 13:13 Dose: 83 mls/hr Levothyroxine Sodium (Synthroid -) 125 mcg PO DAILY@0700 [facility] Last Admin: 12/17/18 06:40 Dose: 125 mcg Metoprolol Tartrate (Lopressor Injection -) 5 mg IVPUSH Q4H PRN PRN Reason: TACHYCARDIA (HR > 110 BPM) Last Admin: 11/28/18 14:00 Dose: 5 mg Pantoprazole Sodium (Protonix -) 40 mg PO DAILY [facility] Last Admin: 12/17/18 10:39 Dose: 40 mg - Objective Vital Signs: Vital Signs Temperature 98.7 F 12/17/18 14:00 Pulse Rate 79 12/17/18 14:00 Respiratory Rate 18 12/17/18 14:00 Blood Pressure 179/72 H 12/17/18 14:00 O2 Sat by Pulse Oximetry (%) 97 12/17/18 09:00 Constitutional: Yes: Calm Eyes: Yes: Conjunctiva Clear HENT: Yes: Atraumatic Neck: Yes: Supple Cardiovascular: Yes: S1, S2 Respiratory: Yes: CTA Bilaterally Genitourinary: Yes: WNL Edema: No Integumentary: Yes: WNL Neurological: Yes: Confusion Labs: CBC, BMP 12/16/18 06:10 12/16/18 06:10 INR, PTT INR 0.92 (0.83-1.09) 12/16/18 06:10 Problem List - Problems (1) GIB (gastrointestinal bleeding) Code(s): K92.2 - GASTROINTESTINAL HEMORRHAGE, UNSPECIFIED Qualifiers: GI bleed type/associated pathology: unspecified gastrointestinal hemorrhage type Qualified Code(s): K92.2 - Gastrointestinal hemorrhage, unspecified (2) CKD (chronic kidney disease) Code(s): N18.9 - CHRONIC KIDNEY DISEASE, UNSPECIFIED Qualifiers: Chronic kidney disease stage: on chronic dialysis Qualified Code(s): N18.6 - End stage renal disease; Z99.2 - Dependence on renal dialysis Assessment/Plan Current Medications Generic Name Dose Route Start Last Admin Trade Name Freq PRN Reason Stop Dose Admin Acetaminophen 650 mg 12/17/18 11:39 Tylenol - PO Q4H PRN PAIN Amlodipine Besylate 10 mg 11/28/18 16:15 12/17/18 10:39 Norvasc - PO 10 mg DAILY [facility] Administration Hydralazine HCl 10 mg 12/14/18 22:00 12/17/18 10:39 Apresoline - PO 10 mg BID [facility] Administration Dextrose/Sodium Chloride 1,000 mls @ 83 mls/hr 12/15/18 08:30 12/17/18 13:13 D5-1/2ns - IV 83 mls/hr ASDIR [facility] Administration Levothyroxine Sodium 125 mcg 12/03/18 07:00 12/17/18 06:40 Synthroid - PO 125 mcg DAILY@0700 [facility] Administration Metoprolol Tartrate 5 mg 11/22/18 22:27 11/28/18 14:00 Lopressor Injection - IVPUSH 5 mg Q4H PRN Administration TACHYCARDIA (HR > 110 BPM) Pantoprazole Sodium 40 mg 12/17/18 10:00 12/17/18 10:39 Protonix - PO 40 mg DAILY [facility] Administration Impression 1. CKD 2. right renal cyst 3. lucero 4. hypothryoid 5. dementia 6. parkinsons 7. HTN 8. gout 9. uremia 10. anemia 11. GI bleed Plan - cont fluids - check bmp - gi input appreciated - monitor hg - avoid nsaids - avoid nephrotoxins
[2018-12-17 17:08] LABS: BLOOD UREA NITROGEN 78.9 mg/dL (7-18); CALCIUM 9.1 mg/dL (8.5-10.1); POTASSIUM 4.9 mmol/L (3.5-5.1)
[2018-12-18] MEDS: LEVOTHYROXINE NA 125 MCG TABLET (FP) PO SCH (06:07)
[2018-12-18] MEDS ORDERED: METOPROLOL TARTRATE 5 MG/5 ML VIAL IVPUSH PRN (07:13)
--- NOTE | 2018-12-18 07:58 | PN ---
Progress Note, Physician Chief Complaint: GI bleed History of Present Illness: NAD Seen by GI Chronic GI bleed Seen by Psych- deemed to lack functional capacity to make decisions. Had EGD yesterday-showed no UGI bleed, perhaps, LGI bleed? Labs for today pending - Current Medication List Current Medications: Active Medications Acetaminophen (Tylenol -) 650 mg PO Q4H PRN PRN Reason: PAIN Amlodipine Besylate (Norvasc -) 10 mg PO DAILY [facility] Hydralazine HCl (Apresoline -) 25 mg PO BID [facility] Levothyroxine Sodium (Synthroid -) 125 mcg PO DAILY@0700 [facility] Metoprolol Tartrate (Lopressor Injection -) 5 mg IVPUSH Q4H PRN PRN Reason: TACHYCARDIA (HR > 110 BPM) Pantoprazole Sodium (Protonix -) 40 mg PO DAILY [facility] Last Admin: 12/17/18 10:39 Dose: 40 mg - Objective Vital Signs: Vital Signs Temperature 97.9 F 12/18/18 06:21 Pulse Rate 60 12/18/18 06:21 Respiratory Rate 20 12/18/18 06:21 Blood Pressure 174/76 H 12/18/18 06:21 O2 Sat by Pulse Oximetry (%) 95 12/17/18 20:47 Constitutional: Yes: No Distress, Calm, Thin Cardiovascular: Yes: Regular Rate and Rhythm Respiratory: Yes: Regular Gastrointestinal: Yes: WNL, Normal Bowel Sounds, Soft Genitourinary: Yes: Incontinence Musculoskeletal: Yes: WNL Extremities: Yes: WNL Edema: No Peripheral Pulses WNL: Yes Neurological: Yes: Alert, Confusion Psychiatric: Yes: Alert Labs: CBC, BMP 12/16/18 06:10 12/17/18 16:00 INR, PTT INR 0.92 (0.83-1.09) 12/16/18 06:10 Assessment/Plan (1) GIB (gastrointestinal bleeding) Assessment/Plan: -GI consult -received 4 U PRB this admission -Stool OB positive -Pantoprazole -EGD-unremarkable, perhaps lower GI bleed? Code(s): K92.2 - GASTROINTESTINAL HEMORRHAGE, UNSPECIFIED Qualifiers: GI bleed type/associated pathology: unspecified gastrointestinal hemorrhage type Qualified Code(s): K92.2 - Gastrointestinal hemorrhage, unspecified (2) Anemia Assessment/Plan: -GI consult -2U PRBC transfusion -Stool OB positive -Pantoprazole -Restart diet for now -Follow daily labs Code(s): D64.9 - ANEMIA, UNSPECIFIED Qualifiers: Anemia type: unspecified type Qualified Code(s): D64.9 - Anemia, unspecified (3) CHF (congestive heart failure) Assessment/Plan: -1L fluid restriction -daily weights Code(s): I50.9 - HEART FAILURE, UNSPECIFIED (4) CKD (chronic kidney disease) Assessment/Plan: -Renal consult -Cr stable at this time Code(s): N18.9 - CHRONIC KIDNEY DISEASE, UNSPECIFIED Qualifiers: Chronic kidney disease stage: on chronic dialysis Qualified Code(s): N18.6 - End stage renal disease; Z99.2 - Dependence on renal dialysis (5) HTN (hypertension) Assessment/Plan: -monitor BP Code(s): I10 - ESSENTIAL (PRIMARY) HYPERTENSION (6) Hypothyroid Assessment/Plan: -Levothyroxine Code(s): E03.9 - HYPOTHYROIDISM, UNSPECIFIED Physical therapy
[2018-12-18] MEDS: PANTOPRAZOLE 40 MG TABLET (FP) PO SCH (09:34)
[2018-12-18] MEDS: amLODIPine BESYLATE 10 MG TABLET (FP) PO SCH (09:34)
[2018-12-18] MEDS: hydrALAZINE HCL 25 MG TABLET (FP) PO SCH ×2 (09:35→21:09)
[2018-12-18] MEDS ORDERED: hydrALAZINE HCL 10 MG TABLET PO SCH (10:00)
[2018-12-18 10:23] LABS: BASO % 1.3 % (0-2.0); EOS % 5.4 % (0-4.5); HEMATOCRIT 29.8 % (32.4-45.2); HEMOGLOBIN 9.7 GM/dL (10.7-15.3); LYMPH % 18.4 % (8-40); MCH 28.8 pg (25.7-33.7); MCHC 32.4 g/dl (32.0-36.0); MEAN CELL VOLUME 88.8 fl (80-96); MEAN PLT VOLUME 7.5 fl (7.5-11.1); MONO % 5.5 % (3.8-10.2); NEUT % 69.4 % (42.8-82.8); PLATELET COUNT 537 K/MM3 (134-434); RBC 3.35 M/mm3 (3.60-5.2); RDW 16.1 % (11.6-15.6); WHITE BLOOD COUNT 6.2 K/mm3 (4.0-10.0)
[2018-12-18 10:45] LABS: ALBUMIN 2.8 g/dl (3.4-5.0); BILIRUBIN,TOTAL 0.4 mg/dL (0.2-1); BLOOD UREA NITROGEN 73.6 mg/dL (7-18); CALCIUM 9.6 mg/dL (8.5-10.1); POTASSIUM 5.1 mmol/L (3.5-5.1); TOT PROT 6.9 g/dl (6.4-8.2)
--- NOTE | 2018-12-18 18:13 | PN ---
Progress Note, Physician History of Present Illness: Pt seen and examined at bedside. She remains confused. - Current Medication List Current Medications: Active Medications Acetaminophen (Tylenol -) 650 mg PO Q4H PRN PRN Reason: PAIN Amlodipine Besylate (Norvasc -) 10 mg PO DAILY [facility] Last Admin: 12/18/18 09:34 Dose: 10 mg Hydralazine HCl (Apresoline -) 25 mg PO BID [facility] Last Admin: 12/18/18 09:35 Dose: 25 mg Levothyroxine Sodium (Synthroid -) 125 mcg PO DAILY@0700 [facility] Pantoprazole Sodium (Protonix -) 40 mg PO DAILY [facility] Last Admin: 12/18/18 09:34 Dose: 40 mg - Objective Vital Signs: Vital Signs Temperature 98.2 F 12/18/18 15:00 Pulse Rate 62 12/18/18 15:00 Respiratory Rate 20 12/18/18 15:00 Blood Pressure 179/70 H 12/18/18 15:00 O2 Sat by Pulse Oximetry (%) 98 12/18/18 09:00 Constitutional: Yes: Calm Eyes: Yes: Conjunctiva Clear HENT: Yes: Atraumatic Neck: Yes: Supple Cardiovascular: Yes: S1, S2 Respiratory: Yes: CTA Bilaterally Gastrointestinal: Yes: Soft Genitourinary: Yes: Incontinence Musculoskeletal: Yes: Joint Stiffness Edema: No Integumentary: Yes: WNL Neurological: Yes: Confusion Labs: CBC, BMP 12/18/18 09:50 12/18/18 09:50 INR, PTT INR 0.92 (0.83-1.09) 12/16/18 06:10 Problem List - Problems (1) GIB (gastrointestinal bleeding) Code(s): K92.2 - GASTROINTESTINAL HEMORRHAGE, UNSPECIFIED Qualifiers: GI bleed type/associated pathology: unspecified gastrointestinal hemorrhage type Qualified Code(s): K92.2 - Gastrointestinal hemorrhage, unspecified (2) CKD (chronic kidney disease) Code(s): N18.9 - CHRONIC KIDNEY DISEASE, UNSPECIFIED Qualifiers: Chronic kidney disease stage: on chronic dialysis Qualified Code(s): N18.6 - End stage renal disease; Z99.2 - Dependence on renal dialysis Assessment/Plan Current Medications Generic Name Dose Route Start Last Admin Trade Name Freq PRN Reason Stop Dose Admin Acetaminophen 650 mg 12/17/18 11:39 Tylenol - PO Q4H PRN PAIN Amlodipine Besylate 10 mg 12/18/18 10:00 12/18/18 09:34 Norvasc - PO 10 mg DAILY [facility] Administration Hydralazine HCl 25 mg 12/18/18 10:00 12/18/18 09:35 Apresoline - PO 25 mg BID [facility] Administration Levothyroxine Sodium 125 mcg 12/19/18 07:00 Synthroid - PO DAILY@0700 [facility] Pantoprazole Sodium 40 mg 12/17/18 10:00 12/18/18 09:34 Protonix - PO 40 mg DAILY [facility] Administration Impression 1. CKD 2. right renal cyst 3. lucero 4. hypothryoid 5. dementia 6. parkinsons 7. HTN 8. gout 9. uremia 10. anemia 11. GI bleed Plan - change hydralazine to tid - potassium improved - pt off of fluids - repeat labs in am - avoid nsaids - avoid nephrotoxins
[2018-12-19] MEDS: LEVOTHYROXINE NA 125 MCG TABLET (FP) PO SCH (06:27)
[2018-12-19 06:55] LABS: BASO % 1.1 % (0-2.0); HEMATOCRIT 34.8 % (32.4-45.2); HEMOGLOBIN 11.6 GM/dL (10.7-15.3); LYMPH % 16.2 % (8-40); MCH 29.5 pg (25.7-33.7); MCHC 33.3 g/dl (32.0-36.0); MEAN CELL VOLUME 88.6 fl (80-96); MEAN PLT VOLUME 7.5 fl (7.5-11.1); NEUT % 73.7 % (42.8-82.8); PLATELET COUNT 568 K/MM3 (134-434); RBC 3.93 M/mm3 (3.60-5.2); RDW 15.6 % (11.6-15.6); WHITE BLOOD COUNT 7.3 K/mm3 (4.0-10.0)
[2018-12-19 07:37] LABS: ALBUMIN 3.3 g/dl (3.4-5.0); BILIRUBIN,TOTAL 0.5 mg/dL (0.2-1); BLOOD UREA NITROGEN 79.1 mg/dL (7-18); CALCIUM 9.8 mg/dL (8.5-10.1); CREATININE 2.1 mg/dL (0.55-1.3); POTASSIUM 5.3 mmol/L (3.5-5.1); TOT PROT 7.8 g/dl (6.4-8.2)
--- NOTE | 2018-12-19 09:28 | PN ---
Progress Note, Physician Chief Complaint: Anemia CKD GI Bleed History of Present Illness: Previous notes and events reviewed awake and alert NAD denies chest pain or SOB patient sts she feels fine and wants to go home EGD done 12/16/18 with no upper GI source of bleeding Hg 11.6 - Current Medication List Current Medications: Active Medications Acetaminophen (Tylenol -) 650 mg PO Q4H PRN PRN Reason: PAIN Amlodipine Besylate (Norvasc -) 10 mg PO DAILY [facility] Last Admin: 12/18/18 09:34 Dose: 10 mg Hydralazine HCl (Apresoline -) 25 mg PO BID [facility] Last Admin: 12/18/18 21:09 Dose: 25 mg Levothyroxine Sodium (Synthroid -) 125 mcg PO DAILY@0700 [facility] Last Admin: 12/19/18 06:27 Dose: 125 mcg Pantoprazole Sodium (Protonix -) 40 mg PO DAILY [facility] Last Admin: 12/18/18 09:34 Dose: 40 mg - Objective Vital Signs: Vital Signs Temperature 98 F 12/19/18 06:55 Pulse Rate 81 12/19/18 06:55 Respiratory Rate 20 12/19/18 06:55 Blood Pressure 161/75 12/19/18 02:03 O2 Sat by Pulse Oximetry (%) 98 12/18/18 09:00 Constitutional: Yes: No Distress, Calm, Cachectic Eyes: Yes: Conjunctiva Clear HENT: Yes: Atraumatic Cardiovascular: Yes: Regular Rate and Rhythm Respiratory: Yes: Regular, Rhonchi Gastrointestinal: Yes: Normal Bowel Sounds, Soft Genitourinary: Yes: Incontinence Musculoskeletal: Yes: Muscle Weakness Extremities: Yes: WNL Edema: No Neurological: Yes: Alert, Confusion Psychiatric: Yes: Alert Labs: CBC, BMP 12/19/18 06:20 12/19/18 06:20 INR, PTT INR 0.92 (0.83-1.09) 12/16/18 06:10 Problem List - Problems (1) GIB (gastrointestinal bleeding) Assessment/Plan: -GI consult -Hg 11.6 -EGD done with no upper GI source identified -bleeding source possible lower GI bleed??~possible colonoscopy, if so will need 2PC form signed due to psychiatry deeming patient lack capacity -Stool OB positive -Pantoprazole Code(s): K92.2 - GASTROINTESTINAL HEMORRHAGE, UNSPECIFIED Qualifiers: GI bleed type/associated pathology: unspecified gastrointestinal hemorrhage type Qualified Code(s): K92.2 - Gastrointestinal hemorrhage, unspecified (2) Anemia Assessment/Plan: -GI consult -Hg 11.6 -monitor Hg daily -transfuse for Hg <7.0 to avoid fluid overload -Stool OB positive -Pantoprazole Code(s): D64.9 - ANEMIA, UNSPECIFIED Qualifiers: Anemia type: unspecified type Qualified Code(s): D64.9 - Anemia, unspecified (3) CHF (congestive heart failure) Assessment/Plan: -1L fluid restriction -daily weights Code(s): I50.9 - HEART FAILURE, UNSPECIFIED (4) CKD (chronic kidney disease) Assessment/Plan: -Renal consult -BUN/Cr 79.1/2.1 -monitor renal function daily for downtrend Code(s): N18.9 - CHRONIC KIDNEY DISEASE, UNSPECIFIED Qualifiers: Chronic kidney disease stage: on chronic dialysis Qualified Code(s): N18.6 - End stage renal disease; Z99.2 - Dependence on renal dialysis (5) HTN (hypertension) Assessment/Plan: -monitor BP -Hydralazine Code(s): I10 - ESSENTIAL (PRIMARY) HYPERTENSION (6) Hypothyroid Assessment/Plan: -Levothyroxine Code(s): E03.9 - HYPOTHYROIDISM, UNSPECIFIED Assessment/Plan see problem list
[2018-12-19] MEDS: amLODIPine BESYLATE 10 MG TABLET (FP) PO SCH (09:43)
[2018-12-19] MEDS: hydrALAZINE HCL 25 MG TABLET (FP) PO SCH ×2 (09:43→21:37)
[2018-12-19] MEDS: PANTOPRAZOLE 40 MG TABLET (FP) PO SCH (09:43)
[2018-12-19] MEDS ORDERED: PT OWN MED DRAWER 7, Y5N ONE ×2 (14:22→14:32)
[2018-12-19] MEDS: SODIUM ZIRCONIUM CYCLOSILICATE (LOKELMA) 5 GM PACKET PO SCH (14:31)
--- NOTE | 2018-12-19 16:24 | PN ---
Progress Note, Physician History of Present Illness: Pt seen and examined at bedside. She remains confused. - Current Medication List Current Medications: Active Medications Acetaminophen (Tylenol -) 650 mg PO Q4H PRN PRN Reason: PAIN Amlodipine Besylate (Norvasc -) 10 mg PO DAILY [facility] Last Admin: 12/19/18 09:43 Dose: 10 mg Hydralazine HCl (Apresoline -) 25 mg PO BID [facility] Last Admin: 12/19/18 09:43 Dose: 25 mg Levothyroxine Sodium (Synthroid -) 125 mcg PO DAILY@0700 [facility] Last Admin: 12/19/18 06:27 Dose: 125 mcg Pantoprazole Sodium (Protonix -) 40 mg PO DAILY [facility] Last Admin: 12/19/18 09:43 Dose: 40 mg Sodium Zirconium Cyclosilicate (Lokelma) 10 gm PO DAILY [facility] Stop: 12/20/18 10:01 Last Admin: 12/19/18 14:31 Dose: 10 gm - Objective Vital Signs: Vital Signs Temperature 97.6 F 12/19/18 14:00 Pulse Rate 58 L 12/19/18 14:00 Respiratory Rate 20 12/19/18 14:00 Blood Pressure 187/71 H 12/19/18 14:00 O2 Sat by Pulse Oximetry (%) 98 12/19/18 09:00 Constitutional: Yes: Calm Eyes: Yes: Conjunctiva Clear HENT: Yes: Atraumatic Neck: Yes: Supple Cardiovascular: Yes: S1, S2 Respiratory: Yes: CTA Bilaterally Gastrointestinal: Yes: Normal Bowel Sounds, Soft Genitourinary: Yes: Incontinence Musculoskeletal: Yes: Muscle Weakness Edema: No Neurological: Yes: Confusion Labs: CBC, BMP 12/19/18 06:20 12/19/18 06:20 INR, PTT INR 0.92 (0.83-1.09) 12/16/18 06:10 Problem List - Problems (1) GIB (gastrointestinal bleeding) Code(s): K92.2 - GASTROINTESTINAL HEMORRHAGE, UNSPECIFIED Qualifiers: GI bleed type/associated pathology: unspecified gastrointestinal hemorrhage type Qualified Code(s): K92.2 - Gastrointestinal hemorrhage, unspecified (2) CKD (chronic kidney disease) Code(s): N18.9 - CHRONIC KIDNEY DISEASE, UNSPECIFIED Qualifiers: Chronic kidney disease stage: on chronic dialysis Qualified Code(s): N18.6 - End stage renal disease; Z99.2 - Dependence on renal dialysis Assessment/Plan Current Medications Generic Name Dose Route Start Last Admin Trade Name Armani PRN Reason Stop Dose Admin Acetaminophen 650 mg 12/17/18 11:39 Tylenol - PO Q4H PRN PAIN Amlodipine Besylate 10 mg 12/18/18 10:00 12/19/18 09:43 Norvasc - PO 10 mg DAILY [facility] Administration Hydralazine HCl 25 mg 12/18/18 10:00 12/19/18 09:43 Apresoline - PO 25 mg BID [facility] Administration Levothyroxine Sodium 125 mcg 12/19/18 07:00 12/19/18 06:27 Synthroid - PO 125 mcg DAILY@0700 [facility] Administration Pantoprazole Sodium 40 mg 12/17/18 10:00 12/19/18 09:43 Protonix - PO 40 mg DAILY [facility] Administration Sodium Zirconium Cyclosilicate 10 gm 12/19/18 14:00 12/19/18 14:31 Lokelma PO 12/20/18 10:01 10 gm DAILY [facility] Administration Impression 1. CKD 2. right renal cyst 3. lucero 4. hypothryoid 5. dementia 6. parkinsons 7. HTN 8. gout 9. uremia 10. anemia 11. GI bleed Plan - start lokelma - repeat labs in am - titrate hydralazine dose as needed - repeat labs in am - hyperkalemia - avoid nsaids - avoid nephrotoxins
[2018-12-19 16:44] VITALS: BMI 20.7
[2018-12-20] MEDS: LEVOTHYROXINE NA 125 MCG TABLET (FP) PO SCH (06:05)
[2018-12-20 08:17] LABS: HEMATOCRIT 28.1 % (32.4-45.2); HEMOGLOBIN 9.3 GM/dL (10.7-15.3); MCH 29.3 pg (25.7-33.7); MCHC 33.2 g/dl (32.0-36.0); MEAN PLT VOLUME 7.4 fl (7.5-11.1); PLATELET COUNT 576 K/MM3 (134-434); RBC 3.19 M/mm3 (3.60-5.2); WHITE BLOOD COUNT 6.4 K/mm3 (4.0-10.0)
[2018-12-20 08:48] LABS: ALBUMIN 2.9 g/dl (3.4-5.0); BILIRUBIN,TOTAL 0.4 mg/dL (0.2-1); BLOOD UREA NITROGEN 83.9 mg/dL (7-18); CALCIUM 9.4 mg/dL (8.5-10.1); CREATININE 2.1 mg/dL (0.55-1.3); POTASSIUM 5.3 mmol/L (3.5-5.1); TOT PROT 6.8 g/dl (6.4-8.2)
[2018-12-20] MEDS ORDERED: PT OWN MED DRAWER 7, Y5N ONE (09:25)
[2018-12-20] MEDS: hydrALAZINE HCL 25 MG TABLET (FP) PO SCH ×2 (09:29→22:41)
[2018-12-20] MEDS: amLODIPine BESYLATE 10 MG TABLET (FP) PO SCH (09:29)
[2018-12-20] MEDS: PANTOPRAZOLE 40 MG TABLET (FP) PO SCH (09:29)
[2018-12-20] MEDS: SODIUM ZIRCONIUM CYCLOSILICATE (LOKELMA) 5 GM PACKET PO SCH ×2 (09:29→19:56)
--- NOTE | 2018-12-20 12:49 | PN ---
Progress Note, Physician Chief Complaint: Anemia CKD GI Bleed History of Present Illness: Previous notes and events reviewed awake and alert NAD denies chest pain or SOB EGD done 12/16/18 with no upper GI source of bleeding Hg 9.3 no acute events overnight - Current Medication List Current Medications: Active Medications Acetaminophen (Tylenol -) 650 mg PO Q4H PRN PRN Reason: PAIN Amlodipine Besylate (Norvasc -) 10 mg PO DAILY [facility] Last Admin: 12/20/18 09:29 Dose: 10 mg Hydralazine HCl (Apresoline -) 25 mg PO BID [facility] Last Admin: 12/20/18 09:29 Dose: 25 mg Levothyroxine Sodium (Synthroid -) 125 mcg PO DAILY@0700 [facility] Last Admin: 12/20/18 06:05 Dose: 125 mcg Pantoprazole Sodium (Protonix -) 40 mg PO DAILY [facility] Last Admin: 12/20/18 09:29 Dose: 40 mg - Objective Vital Signs: Vital Signs Temperature 97.2 F L 12/20/18 10:00 Pulse Rate 63 12/20/18 10:00 Respiratory Rate 20 12/20/18 10:00 Blood Pressure 160/62 12/20/18 10:00 O2 Sat by Pulse Oximetry (%) 98 12/20/18 09:00 Constitutional: Yes: No Distress, Calm, Cachectic Eyes: Yes: Conjunctiva Clear HENT: Yes: Atraumatic Cardiovascular: Yes: Regular Rate and Rhythm Respiratory: Yes: Regular, Diminished Gastrointestinal: Yes: Normal Bowel Sounds, Soft Genitourinary: Yes: Incontinence Musculoskeletal: Yes: Muscle Weakness Extremities: Yes: WNL Edema: No Neurological: Yes: Alert, Confusion Psychiatric: Yes: Alert Labs: CBC, BMP 12/20/18 06:40 12/20/18 06:40 INR, PTT INR 0.92 (0.83-1.09) 12/16/18 06:10 Problem List - Problems (1) GIB (gastrointestinal bleeding) Assessment/Plan: -GI consult -Hg 9.3 -EGD done with no upper GI source identified -bleeding source possible lower GI bleed??~possible colonoscopy, if so will need 2PC form signed due to psychiatry deeming patient lack capacity -Stool OB positive -Pantoprazole Code(s): K92.2 - GASTROINTESTINAL HEMORRHAGE, UNSPECIFIED Qualifiers: GI bleed type/associated pathology: unspecified gastrointestinal hemorrhage type Qualified Code(s): K92.2 - Gastrointestinal hemorrhage, unspecified (2) Anemia Assessment/Plan: -GI consult -Hg 9.3 -monitor Hg daily -transfuse for Hg <7.0 to avoid fluid overload -Stool OB positive -Pantoprazole Code(s): D64.9 - ANEMIA, UNSPECIFIED Qualifiers: Anemia type: unspecified type Qualified Code(s): D64.9 - Anemia, unspecified (3) CHF (congestive heart failure) Assessment/Plan: -1L fluid restriction -daily weights Code(s): I50.9 - HEART FAILURE, UNSPECIFIED (4) CKD (chronic kidney disease) Assessment/Plan: -Renal consult -BUN/Cr 83.9/2.1 -monitor renal function daily for downtrend Code(s): N18.9 - CHRONIC KIDNEY DISEASE, UNSPECIFIED Qualifiers: Chronic kidney disease stage: on chronic dialysis Qualified Code(s): N18.6 - End stage renal disease; Z99.2 - Dependence on renal dialysis (5) HTN (hypertension) Assessment/Plan: -monitor BP -Hydralazine Code(s): I10 - ESSENTIAL (PRIMARY) HYPERTENSION (6) Hypothyroid Assessment/Plan: -Levothyroxine Code(s): E03.9 - HYPOTHYROIDISM, UNSPECIFIED Assessment/Plan see problem list
--- NOTE | 2018-12-20 16:54 | PN ---
Progress Note, Physician History of Present Illness: Pt seen and examined at bedside. She is awake and appears comfortable. - Current Medication List Current Medications: Active Medications Acetaminophen (Tylenol -) 650 mg PO Q4H PRN PRN Reason: PAIN Amlodipine Besylate (Norvasc -) 10 mg PO DAILY [facility] Last Admin: 12/20/18 09:29 Dose: 10 mg Hydralazine HCl (Apresoline -) 25 mg PO BID [facility] Last Admin: 12/20/18 09:29 Dose: 25 mg Levothyroxine Sodium (Synthroid -) 125 mcg PO DAILY@0700 [facility] Last Admin: 12/20/18 06:05 Dose: 125 mcg Pantoprazole Sodium (Protonix -) 40 mg PO DAILY [facility] Last Admin: 12/20/18 09:29 Dose: 40 mg - Objective Vital Signs: Vital Signs Temperature 97.9 F 12/20/18 14:00 Pulse Rate 68 12/20/18 14:00 Respiratory Rate 20 12/20/18 14:00 Blood Pressure 153/87 12/20/18 14:00 O2 Sat by Pulse Oximetry (%) 98 12/20/18 09:00 Constitutional: Yes: Calm Eyes: Yes: Conjunctiva Clear HENT: Yes: Atraumatic Cardiovascular: Yes: S1, S2 Respiratory: Yes: CTA Bilaterally Gastrointestinal: Yes: Soft Genitourinary: Yes: Incontinence Musculoskeletal: Yes: WNL Edema: No Integumentary: Yes: WNL Neurological: Yes: Confusion Labs: CBC, BMP 12/20/18 06:40 12/20/18 06:40 INR, PTT INR 0.92 (0.83-1.09) 12/16/18 06:10 Problem List - Problems (1) GIB (gastrointestinal bleeding) Code(s): K92.2 - GASTROINTESTINAL HEMORRHAGE, UNSPECIFIED Qualifiers: GI bleed type/associated pathology: unspecified gastrointestinal hemorrhage type Qualified Code(s): K92.2 - Gastrointestinal hemorrhage, unspecified (2) CKD (chronic kidney disease) Code(s): N18.9 - CHRONIC KIDNEY DISEASE, UNSPECIFIED Qualifiers: Chronic kidney disease stage: on chronic dialysis Qualified Code(s): N18.6 - End stage renal disease; Z99.2 - Dependence on renal dialysis Assessment/Plan Current Medications Generic Name Dose Route Start Last Admin Trade Name Freq PRN Reason Stop Dose Admin Acetaminophen 650 mg 12/17/18 11:39 Tylenol - PO Q4H PRN PAIN Amlodipine Besylate 10 mg 12/18/18 10:00 12/20/18 09:29 Norvasc - PO 10 mg DAILY [facility] Administration Hydralazine HCl 25 mg 12/18/18 10:00 12/20/18 09:29 Apresoline - PO 25 mg BID [facility] Administration Levothyroxine Sodium 125 mcg 12/19/18 07:00 12/20/18 06:05 Synthroid - PO 125 mcg DAILY@0700 [facility] Administration Pantoprazole Sodium 40 mg 12/17/18 10:00 12/20/18 09:29 Protonix - PO 40 mg DAILY [facility] Administration Impression 1. CKD 2. right renal cyst 3. lucero 4. hypothryoid 5. dementia 6. parkinsons 7. HTN 8. gout 9. uremia 10. anemia 11. GI bleed 12. hyperkalemia Plan - cont with haylee, will order for a dose today and tomorrow - monitor potassium - low k diet - check phos level - avoid nsaids - avoid nephrotoxins
[2018-12-20] MEDS ORDERED: ONDANSETRON *ODT* 4 MG TABLET SL ONE (22:19)
[2018-12-21] MEDS: LEVOTHYROXINE NA 125 MCG TABLET (FP) PO SCH (06:37)
[2018-12-21 08:28] LABS: HEMATOCRIT 26.9 % (32.4-45.2); HEMOGLOBIN 8.8 GM/dL (10.7-15.3); MCH 29.2 pg (25.7-33.7); MCHC 32.6 g/dl (32.0-36.0); MEAN CELL VOLUME 89.4 fl (80-96); MEAN PLT VOLUME 7.1 fl (7.5-11.1); PLATELET COUNT 561 K/MM3 (134-434); RBC 3.01 M/mm3 (3.60-5.2); RDW 15.7 % (11.6-15.6); WHITE BLOOD COUNT 7.5 K/mm3 (4.0-10.0)
[2018-12-21 08:57] LABS: ALBUMIN 2.7 g/dl (3.4-5.0); BILIRUBIN,TOTAL 0.5 mg/dL (0.2-1); BLOOD UREA NITROGEN 77.9 mg/dL (7-18); CALCIUM 8.9 mg/dL (8.5-10.1); CREATININE 2.2 mg/dL (0.55-1.3); POTASSIUM 4.8 mmol/L (3.5-5.1); TOT PROT 6.4 g/dl (6.4-8.2)
[2018-12-21] MEDS: hydrALAZINE HCL 25 MG TABLET (FP) PO SCH ×2 (09:16→22:42)
[2018-12-21] MEDS: amLODIPine BESYLATE 10 MG TABLET (FP) PO SCH (09:16)
[2018-12-21] MEDS: PANTOPRAZOLE 40 MG TABLET (FP) PO SCH (09:16)
--- NOTE | 2018-12-21 09:45 | PN ---
Progress Note, Physician Chief Complaint: I SPOKE TO THE PATIENT AND SHE AGREES TO DRINK THE BOWEL PREP FOR COLONOSCOPY TOMORROW MORNING. I HAVE CONTACTED DR VICKI Serna TO MAKE SURE THE COLONOSCOPY WILL BE DONE TOMORROW SO WE CAN RESOLVE THE CHRONIC GI BLEED THE PATIENT HAS. - Current Medication List Current Medications: Active Medications Acetaminophen (Tylenol -) 650 mg PO Q4H PRN PRN Reason: PAIN Amlodipine Besylate (Norvasc -) 10 mg PO DAILY [facility] Last Admin: 12/21/18 09:16 Dose: 10 mg Hydralazine HCl (Apresoline -) 25 mg PO BID [facility] Last Admin: 12/21/18 09:16 Dose: 25 mg Levothyroxine Sodium (Synthroid -) 125 mcg PO DAILY@0700 [facility] Last Admin: 12/21/18 06:37 Dose: 125 mcg Pantoprazole Sodium (Protonix -) 40 mg PO DAILY [facility] Last Admin: 12/21/18 09:16 Dose: 40 mg Sodium Zirconium Cyclosilicate (Lokelma) 10 gm PO DAILY [facility] Last Admin: 12/20/18 19:56 Dose: 10 gm - Objective Vital Signs: Vital Signs Temperature 98.5 F 12/21/18 06:50 Pulse Rate 61 12/21/18 06:50 Respiratory Rate 20 12/21/18 06:50 Blood Pressure 165/68 12/21/18 06:50 O2 Sat by Pulse Oximetry (%) 98 12/20/18 09:00 Constitutional: Yes: No Distress Cardiovascular: Yes: Regular Rate and Rhythm Respiratory: Yes: Regular Gastrointestinal: Yes: Soft Genitourinary: Yes: Incontinence Musculoskeletal: Yes: Muscle Weakness Edema: No Neurological: Yes: Confusion Psychiatric: Yes: Other Labs: CBC, BMP 12/21/18 07:30 12/21/18 07:30 INR, PTT INR 0.92 (0.83-1.09) 12/16/18 06:10 Problem List - Problems (1) GIB (gastrointestinal bleeding) Code(s): K92.2 - GASTROINTESTINAL HEMORRHAGE, UNSPECIFIED Qualifiers: GI bleed type/associated pathology: unspecified gastrointestinal hemorrhage type Qualified Code(s): K92.2 - Gastrointestinal hemorrhage, unspecified (2) Hypothyroid Code(s): E03.9 - HYPOTHYROIDISM, UNSPECIFIED (3) Anemia Code(s): D64.9 - ANEMIA, UNSPECIFIED Qualifiers: Anemia type: unspecified type Qualified Code(s): D64.9 - Anemia, unspecified (4) Arthritis Code(s): M19.90 - UNSPECIFIED OSTEOARTHRITIS, UNSPECIFIED SITE (5) COPD (chronic obstructive pulmonary disease) Code(s): J44.9 - CHRONIC OBSTRUCTIVE PULMONARY DISEASE, UNSPECIFIED (6) Failure to thrive Code(s): NGW2297 - (7) Low hemoglobin Code(s): D64.9 - ANEMIA, UNSPECIFIED (8) MDD (major depressive disorder) Code(s): F32.9 - MAJOR DEPRESSIVE DISORDER, SINGLE EPISODE, UNSPECIFIED (9) Severe protein-calorie malnutrition Code(s): E43 - UNSPECIFIED SEVERE PROTEIN-CALORIE MALNUTRITION (10) Encounter for competency evaluation Code(s): Z02.79 - ENCOUNTER FOR ISSUE OF OTHER MEDICAL CERTIFICATE (11) Dementia Code(s): F03.90 - UNSPECIFIED DEMENTIA WITHOUT BEHAVIORAL DISTURBANCE Assessment/Plan PREP FOR COLONOSCOPY BENEFIT OUTWEIGHS THE RISK. DISCUSSED WITH G.I. AND PATIENT IS IN AGREEMENT HOWEVER THE PATIENT DOES NOT HAVE CAPACITY TO MAKE DECISIONS. NPO DVT PROPHYLAXIS
[2018-12-21] MEDS ORDERED: MAGNESIUM HYDROX 2400MG/30ML ORAL SUSPENSION 30 ML CUP PO ONE ×2 (09:46→19:38)
[2018-12-21] MEDS ORDERED: POLYETHYLENE GLYCOL 3350 255 GM BTL PO ONE (10:00)
[2018-12-21] MEDS ORDERED: PT OWN MED DRAWER 7, Y5N ONE ×2 (10:26→11:21)
[2018-12-21] MEDS: SODIUM ZIRCONIUM CYCLOSILICATE (LOKELMA) 5 GM PACKET PO SCH (11:59)
[2018-12-21] MEDS: SODIUM CHLORIDE 1,000 ML IV SCH (12:00)
--- NOTE | 2018-12-21 13:36 | PN ---
Progress Note, Physician History of Present Illness: Pt seen and examined at bedside. She is awake but confused. - Current Medication List Current Medications: Active Medications Acetaminophen (Tylenol -) 650 mg PO Q4H PRN PRN Reason: PAIN Amlodipine Besylate (Norvasc -) 10 mg PO DAILY [facility] Last Admin: 12/21/18 09:16 Dose: 10 mg Hydralazine HCl (Apresoline -) 25 mg PO BID [facility] Last Admin: 12/21/18 09:16 Dose: 25 mg Sodium Chloride (Normal Saline -) 1,000 mls @ 83 mls/hr [facility] Last Admin: 12/21/18 12:00 Dose: 83 mls/hr Levothyroxine Sodium (Synthroid -) 125 mcg PO DAILY@0700 [facility] Last Admin: 12/21/18 06:37 Dose: 125 mcg Pantoprazole Sodium (Protonix -) 40 mg PO DAILY [facility] Last Admin: 12/21/18 09:16 Dose: 40 mg Sodium Zirconium Cyclosilicate (Lokelma) 10 gm PO DAILY [facility] Last Admin: 12/21/18 11:59 Dose: 10 gm - Objective Vital Signs: Vital Signs Temperature 98.5 F 12/21/18 06:50 Pulse Rate 61 12/21/18 06:50 Respiratory Rate 20 12/21/18 09:00 Blood Pressure 165/68 12/21/18 06:50 O2 Sat by Pulse Oximetry (%) 98 12/21/18 09:00 Constitutional: Yes: Calm Eyes: Yes: Conjunctiva Clear HENT: Yes: Atraumatic Cardiovascular: Yes: S1, S2 Respiratory: Yes: CTA Bilaterally Gastrointestinal: Yes: Soft Genitourinary: Yes: Incontinence Musculoskeletal: Yes: Joint Stiffness Edema: No Neurological: Yes: Confusion Labs: CBC, BMP 12/21/18 07:30 12/21/18 07:30 INR, PTT INR 0.92 (0.83-1.09) 12/16/18 06:10 Problem List - Problems (1) GIB (gastrointestinal bleeding) Code(s): K92.2 - GASTROINTESTINAL HEMORRHAGE, UNSPECIFIED Qualifiers: GI bleed type/associated pathology: unspecified gastrointestinal hemorrhage type Qualified Code(s): K92.2 - Gastrointestinal hemorrhage, unspecified (2) CKD (chronic kidney disease) Code(s): N18.9 - CHRONIC KIDNEY DISEASE, UNSPECIFIED Qualifiers: Chronic kidney disease stage: on chronic dialysis Qualified Code(s): N18.6 - End stage renal disease; Z99.2 - Dependence on renal dialysis Assessment/Plan Current Medications Generic Name Dose Route Start Last Admin Trade Name Freq PRN Reason Stop Dose Admin Acetaminophen 650 mg 12/17/18 11:39 Tylenol - PO Q4H PRN PAIN Amlodipine Besylate 10 mg 12/18/18 10:00 12/21/18 09:16 Norvasc - PO 10 mg DAILY [facility] Administration Hydralazine HCl 25 mg 12/18/18 10:00 12/21/18 09:16 Apresoline - PO 25 mg BID [facility] Administration Sodium Chloride 1,000 mls @ 83 mls/hr 12/21/18 10:00 12/21/18 12:00 Normal Saline - IV 83 mls/hr [facility] Administration Levothyroxine Sodium 125 mcg 12/19/18 07:00 12/21/18 06:37 Synthroid - PO 125 mcg DAILY@0700 [facility] Administration Pantoprazole Sodium 40 mg 12/17/18 10:00 12/21/18 09:16 Protonix - PO 40 mg DAILY [facility] Administration Sodium Zirconium Cyclosilicate 10 gm 12/20/18 17:00 12/21/18 11:59 Lokelma PO 10 gm DAILY [facility] Administration Laboratory Tests 12/21/18 07:30 Phosphorus 4.0 Impression 1. CKD 2. right renal cyst 3. lucero 4. hypothryoid 5. dementia 6. parkinsons 7. HTN 8. gout 9. uremia 10. anemia 11. GI bleed 12. hyperkalemia Plan - cont fluids - colonoscopy tomorrow - monitor lytes and hg - avoid nsaids - avoid nephrotoxins
--- NOTE | 2018-12-21 13:51 | PN ---
Progress Note (short form) - Note Progress Note: Notified by primary team that pt is agreeable for colonoscopy. Spoke with pt, discussed indications, risks/benefits of colonoscopy including need for colon prep. She states she is agreeable to proceed. Importance of prep and dietary restrictions was emphasized. Recommendations: -Clear liquid diet today -Check am labs (cbc, bmp, coags) -Miralax prep to improve tolerability -Dulcolax 20mg at 5pm -NPOpMN -2PC consent completed per Dr. Dean Discussed with Dr. Dean
[2018-12-21] MEDS ORDERED: BISACODYL 5 MG TABLET.DR (FP) PO ONE (17:00)
[2018-12-21] MEDS: SODIUM PHOSPHATE/NA BIPHOS 133 ML ENEMA PR SCH (20:12)
[2018-12-22] MEDS: SODIUM PHOSPHATE/NA BIPHOS 133 ML ENEMA PR SCH ×4 (01:13→11:17)
[2018-12-22] MEDS: LEVOTHYROXINE NA 125 MCG TABLET (FP) PO SCH (06:50)
[2018-12-22 09:20] LABS: HEMATOCRIT 27.1 % (32.4-45.2); HEMOGLOBIN 9.1 GM/dL (10.7-15.3); MCH 29.7 pg (25.7-33.7); MCHC 33.5 g/dl (32.0-36.0); MEAN CELL VOLUME 88.6 fl (80-96); MEAN PLT VOLUME 7.1 fl (7.5-11.1); PLATELET COUNT 549 K/MM3 (134-434); RBC 3.06 M/mm3 (3.60-5.2); RDW 16.1 % (11.6-15.6); WHITE BLOOD COUNT 7.5 K/mm3 (4.0-10.0)
[2018-12-22 09:33] LABS: INR 0.95 (0.83-1.09); PROTHROMBIN TIME (PATIENT) 11.2 SEC (9.7-13.0)
[2018-12-22] MEDS: SODIUM CHLORIDE 1,000 ML IV SCH (09:53)
[2018-12-22] MEDS: hydrALAZINE HCL 25 MG TABLET (FP) PO SCH ×2 (09:53→21:36)
[2018-12-22] MEDS: amLODIPine BESYLATE 10 MG TABLET (FP) PO SCH (09:53)
[2018-12-22] MEDS: PANTOPRAZOLE 40 MG TABLET (FP) PO SCH (09:54)
[2018-12-22] MEDS: SODIUM ZIRCONIUM CYCLOSILICATE (LOKELMA) 5 GM PACKET PO SCH (09:54)
--- NOTE | 2018-12-22 11:06 | PN ---
Progress Note, Physician Chief Complaint: Anemia CKD GI Bleed History of Present Illness: Previous notes and events reviewed awake and alert NAD denies chest pain or SOB patient scheduled for colonoscopy today~2 PC forms signed as per RN received enema q4h Hg 9.1 no acute events overnight - Current Medication List Current Medications: Active Medications Acetaminophen (Tylenol -) 650 mg PO Q4H PRN PRN Reason: PAIN Amlodipine Besylate (Norvasc -) 10 mg PO DAILY [facility] Last Admin: 12/22/18 09:53 Dose: 10 mg Hydralazine HCl (Apresoline -) 25 mg PO BID [facility] Last Admin: 12/22/18 09:53 Dose: 25 mg Sodium Chloride (Normal Saline -) 1,000 mls @ 83 mls/hr IV ASDIR [facility] Last Admin: 12/22/18 09:53 Dose: 83 mls/hr Levothyroxine Sodium (Synthroid -) 125 mcg PO DAILY@0700 [facility] Last Admin: 12/22/18 06:50 Dose: Not Given Pantoprazole Sodium (Protonix -) 40 mg PO DAILY [facility] Last Admin: 12/22/18 09:54 Dose: Not Given Sodium Phosphate (Fleet Adult Rectal Enema -) 133 ml SC Q4H [facility] Last Admin: 12/22/18 06:48 Dose: 133 ml Sodium Zirconium Cyclosilicate (Lokelma) 10 gm PO DAILY [facility] Last Admin: 12/22/18 09:54 Dose: Not Given - Objective Vital Signs: Vital Signs Temperature 97.8 F 12/22/18 09:00 Pulse Rate 68 12/22/18 09:00 Respiratory Rate 20 12/22/18 09:00 Blood Pressure 156/90 12/22/18 09:00 O2 Sat by Pulse Oximetry (%) 99 12/21/18 21:00 Constitutional: Yes: No Distress, Calm, Cachectic Eyes: Yes: Conjunctiva Clear HENT: Yes: Atraumatic Cardiovascular: Yes: Regular Rate and Rhythm Respiratory: Yes: Regular, CTA Bilaterally Gastrointestinal: Yes: Normal Bowel Sounds, Soft Musculoskeletal: Yes: Muscle Weakness Extremities: Yes: WNL Edema: No Neurological: Yes: Alert, Confusion Psychiatric: Yes: Alert Labs: CBC, BMP 12/22/18 07:25 INR, PTT INR 0.95 (0.83-1.09) 12/22/18 07:25 Problem List - Problems (1) GIB (gastrointestinal bleeding) Assessment/Plan: -GI consult -Hg 9.3 -EGD done with no upper GI source identified -scheduled for COlonoscopy~2 PC form signed -Stool OB positive -Pantoprazole Code(s): K92.2 - GASTROINTESTINAL HEMORRHAGE, UNSPECIFIED Qualifiers: GI bleed type/associated pathology: unspecified gastrointestinal hemorrhage type Qualified Code(s): K92.2 - Gastrointestinal hemorrhage, unspecified (2) Anemia Assessment/Plan: -GI consult -Hg 9.1 -monitor Hg daily -transfuse for Hg <7.0 to avoid fluid overload -Stool OB positive -Pantoprazole Code(s): D64.9 - ANEMIA, UNSPECIFIED Qualifiers: Anemia type: unspecified type Qualified Code(s): D64.9 - Anemia, unspecified (3) CHF (congestive heart failure) Assessment/Plan: -1L fluid restriction -daily weights Code(s): I50.9 - HEART FAILURE, UNSPECIFIED (4) CKD (chronic kidney disease) Assessment/Plan: -Renal consult -BUN/Cr 77.9/2.2 -monitor renal function daily for downtrend Code(s): N18.9 - CHRONIC KIDNEY DISEASE, UNSPECIFIED Qualifiers: Chronic kidney disease stage: on chronic dialysis Qualified Code(s): N18.6 - End stage renal disease; Z99.2 - Dependence on renal dialysis (5) HTN (hypertension) Assessment/Plan: -monitor BP -Hydralazine Code(s): I10 - ESSENTIAL (PRIMARY) HYPERTENSION (6) Hypothyroid Assessment/Plan: -Levothyroxine Code(s): E03.9 - HYPOTHYROIDISM, UNSPECIFIED Assessment/Plan see problem list
[2018-12-22 11:28] LABS: BLOOD UREA NITROGEN 71.6 mg/dL (7-18); CALCIUM 8.8 mg/dL (8.5-10.1); POTASSIUM 4.2 mmol/L (3.5-5.1)
--- NOTE | 2018-12-22 13:39 | PN ---
Progress Note (short form) - Note Progress Note: Colonoscopy complete. Report placed in proecedural section of physical chart and will be scanned into [employer]. No bleeding source identified. Findings communicated to Dr. Cabrera. Problem List - Problems (1) GIB (gastrointestinal bleeding) Code(s): K92.2 - GASTROINTESTINAL HEMORRHAGE, UNSPECIFIED Qualifiers: GI bleed type/associated pathology: unspecified gastrointestinal hemorrhage type Qualified Code(s): K92.2 - Gastrointestinal hemorrhage, unspecified
--- NOTE | 2018-12-22 13:58 | PN ---
Progress Note, Physician History of Present Illness: Pt seen and examined at bedside. She is awake and appears comfortable. - Current Medication List Current Medications: Active Medications Acetaminophen (Tylenol -) 650 mg PO Q4H PRN PRN Reason: PAIN Amlodipine Besylate (Norvasc -) 10 mg PO DAILY [facility] Last Admin: 12/22/18 09:53 Dose: 10 mg Hydralazine HCl (Apresoline -) 25 mg PO BID [facility] Last Admin: 12/22/18 09:53 Dose: 25 mg Sodium Chloride (Normal Saline -) 1,000 mls @ 83 mls/hr IV ASDIR [facility] Last Admin: 12/22/18 09:53 Dose: 83 mls/hr Levothyroxine Sodium (Synthroid -) 125 mcg PO DAILY@0700 [facility] Last Admin: 12/22/18 06:50 Dose: Not Given Pantoprazole Sodium (Protonix -) 40 mg PO DAILY [facility] Last Admin: 12/22/18 09:54 Dose: Not Given Sodium Phosphate (Fleet Adult Rectal Enema -) 133 ml MS Q4H [facility] Last Admin: 12/22/18 11:17 Dose: 133 ml Sodium Zirconium Cyclosilicate (Lokelma) 10 gm PO DAILY [facility] Last Admin: 12/22/18 09:54 Dose: Not Given - Objective Vital Signs: Vital Signs Temperature 97.4 F L 12/22/18 13:41 Pulse Rate 56 L 12/22/18 13:41 Respiratory Rate 20 12/22/18 13:41 Blood Pressure 132/87 12/22/18 13:41 O2 Sat by Pulse Oximetry (%) 92 L 12/22/18 13:41 Constitutional: Yes: Calm Eyes: Yes: Conjunctiva Clear HENT: Yes: Atraumatic Neck: Yes: Supple Cardiovascular: Yes: S1, S2 Respiratory: Yes: CTA Bilaterally Gastrointestinal: Yes: Soft Genitourinary: Yes: Incontinence Musculoskeletal: Yes: Joint Stiffness Edema: No Neurological: Yes: Confusion Labs: CBC, BMP 12/22/18 07:25 12/22/18 07:25 INR, PTT INR 0.95 (0.83-1.09) 12/22/18 07:25 Problem List - Problems (1) GIB (gastrointestinal bleeding) Code(s): K92.2 - GASTROINTESTINAL HEMORRHAGE, UNSPECIFIED Qualifiers: GI bleed type/associated pathology: unspecified gastrointestinal hemorrhage type Qualified Code(s): K92.2 - Gastrointestinal hemorrhage, unspecified (2) CKD (chronic kidney disease) Code(s): N18.9 - CHRONIC KIDNEY DISEASE, UNSPECIFIED Qualifiers: Chronic kidney disease stage: on chronic dialysis Qualified Code(s): N18.6 - End stage renal disease; Z99.2 - Dependence on renal dialysis Assessment/Plan Current Medications Generic Name Dose Route Start Last Admin Trade Name Freq PRN Reason Stop Dose Admin Acetaminophen 650 mg 12/17/18 11:39 Tylenol - PO Q4H PRN PAIN Amlodipine Besylate 10 mg 12/18/18 10:00 12/22/18 09:53 Norvasc - PO 10 mg DAILY [facility] Administration Hydralazine HCl 25 mg 12/18/18 10:00 12/22/18 09:53 Apresoline - PO 25 mg BID [facility] Administration Sodium Chloride 1,000 mls @ 83 mls/hr 12/21/18 10:00 12/22/18 09:53 Normal Saline - IV 83 mls/hr [facility] Administration Levothyroxine Sodium 125 mcg 12/19/18 07:00 12/22/18 06:50 Synthroid - PO Not Given DAILY@0700 [facility] Pantoprazole Sodium 40 mg 12/17/18 10:00 12/22/18 09:54 Protonix - PO Not Given DAILY [facility] Sodium Phosphate 133 ml 12/21/18 19:45 12/22/18 11:17 Fleet Adult Rectal Enema - MS 133 ml Q4H [facility] Administration Sodium Zirconium Cyclosilicate 10 gm 12/20/18 17:00 12/22/18 09:54 Lokelma PO Not Given DAILY [facility] Impression 1. CKD 2. right renal cyst 3. lucero 4. hypothryoid 5. dementia 6. parkinsons 7. HTN 8. gout 9. uremia 10. anemia 11. GI bleed 12. hyperkalemia Plan - d/c fluids - d/c lokelma - avoid fleet phosphate in the future - monitor lyes - monitor hg - avoid nsaids - avoid nephrotoxins
[2018-12-23] MEDS: LEVOTHYROXINE NA 125 MCG TABLET (FP) PO SCH (05:59)
[2018-12-23] MEDS ORDERED: PT OWN MED DRAWER 7, Y5N ONE (09:45)
[2018-12-23] MEDS: amLODIPine BESYLATE 10 MG TABLET (FP) PO SCH (09:56)
[2018-12-23] MEDS: PANTOPRAZOLE 40 MG TABLET (FP) PO SCH (09:56)
[2018-12-23] MEDS: hydrALAZINE HCL 25 MG TABLET (FP) PO SCH (09:56)
--- NOTE | 2018-12-23 12:09 | DS ---
Physical Examination Vital Signs: Vital Signs Temperature 98.0 F 12/23/18 09:00 Pulse Rate 74 12/23/18 09:00 Respiratory Rate 20 12/23/18 09:00 Blood Pressure 180/70 H 12/23/18 09:00 O2 Sat by Pulse Oximetry (%) 95 12/22/18 21:00 Findings/Remarks: Laboratory Last Values WBC 7.5 K/mm3 (4.0-10.0) 12/22/18 07:25 Corrected WBC (auto) 5.40 K/mm3 12/15/18 05:45 RBC 3.06 M/mm3 (3.60-5.2) L 12/22/18 07:25 Hgb 9.1 GM/dL (10.7-15.3) L 12/22/18 07:25 Hct 27.1 % (32.4-45.2) L 12/22/18 07:25 MCV 88.6 fl (80-96) 12/22/18 07:25 MCH 29.7 pg (25.7-33.7) 12/22/18 07:25 MCHC 33.5 g/dl (32.0-36.0) 12/22/18 07:25 RDW 16.1 % (11.6-15.6) H 12/22/18 07:25 Plt Count 549 K/MM3 (134-434) H 12/22/18 07:25 MPV 7.1 fl (7.5-11.1) L 12/22/18 07:25 Absolute Neuts (auto) 5.4 K/mm3 (1.5-8.0) 12/19/18 06:20 Neutrophils % 73.7 % (42.8-82.8) 12/19/18 06:20 Lymphocytes % 16.2 % (8-40) 12/19/18 06:20 Monocytes % 5.0 % (3.8-10.2) 12/19/18 06:20 Eosinophils % 4.0 % (0-4.5) 12/19/18 06:20 Basophils % 1.1 % (0-2.0) 12/19/18 06:20 Nucleated RBC % 0 % (0-0) 12/19/18 06:20 PT with INR 11.20 SEC (9.7-13.0) 12/22/18 07:25 INR 0.95 (0.83-1.09) 12/22/18 07:25 PTT (Actin FS) 31.2 SECONDS (25.2-36.5) 12/16/18 06:10 Sodium 142 mmol/L (136-145) 12/22/18 07:25 Potassium 4.2 mmol/L (3.5-5.1) 12/22/18 07:25 Chloride 107 mmol/L (98-107) 12/22/18 07:25 Carbon Dioxide 23 mmol/L (21-32) 12/22/18 07:25 Anion Gap 12 MMOL/L (8-16) 12/22/18 07:25 BUN 71.6 mg/dL (7-18) H 12/22/18 07:25 Creatinine 2.0 mg/dL (0.55-1.3) H 12/22/18 07:25 Est GFR (CKD-EPI)AfAm 27.41 12/22/18 07:25 Est GFR (CKD-EPI)NonAf 23.65 12/22/18 07:25 Random Glucose 64 mg/dL (74-106) L 12/22/18 07:25 Calcium 8.8 mg/dL (8.5-10.1) 12/22/18 07:25 Phosphorus 4.0 mg/dL (2.5-4.9) 12/21/18 07:30 Total Bilirubin 0.5 mg/dL (0.2-1) 12/21/18 07:30 AST 18 U/L (15-37) 12/21/18 07:30 ALT 14 U/L (13-61) 12/21/18 07:30 Alkaline Phosphatase 84 U/L (45-117) 12/21/18 07:30 Troponin I 0.02 ng/ml (0.00-0.05) 11/22/18 00:10 Total Protein 6.4 g/dl (6.4-8.2) 12/21/18 07:30 Albumin 2.7 g/dl (3.4-5.0) L 12/21/18 07:30 Lipase 61 U/L (73-393) L 11/22/18 00:10 Stool Occult Blood Positive (NEGATIVE) 11/21/18 22:40 Blood Type O NEGATIVE 12/16/18 06:10 Antibody Screen Negative 12/16/18 06:10 Crossmatch See Detail 12/07/18 05:40 Active Medications Generic Name Dose Route Start Last Admin Trade Name Armani PRN Reason Stop Dose Admin Acetaminophen 650 mg 12/17/18 11:39 Tylenol - PO Q4H PRN PAIN Amlodipine Besylate 10 mg 12/18/18 10:00 12/23/18 09:56 Norvasc - PO 10 mg DAILY LINNEA Administration Hydralazine HCl 25 mg 12/18/18 10:00 12/23/18 09:56 Apresoline - PO 25 mg BID LINNEA Administration Levothyroxine Sodium 125 mcg 12/19/18 07:00 12/23/18 05:59 Synthroid - PO 125 mcg DAILY@0700 LINNEA Administration Pantoprazole Sodium 40 mg 12/17/18 10:00 12/23/18 09:56 Protonix - PO 40 mg DAILY LINNEA Administration Constitutional: Yes: No Distress, Calm, Cachectic Eyes: Yes: Conjunctiva Clear HENT: Yes: Atraumatic Cardiovascular: Yes: Regular Rate and Rhythm Respiratory: Yes: Regular, CTA Bilaterally Gastrointestinal: Yes: Normal Bowel Sounds, Soft Renal/: Yes: Incontinence Musculoskeletal: Yes: Muscle Weakness Extremities: Yes: WNL Edema: No Neurological: Yes: Alert, Confusion Psychiatric: Yes: Alert Labs: CBC, BMP 12/22/18 07:25 12/22/18 07:25 Discharge Summary Problems reviewed: Yes Reason For Visit: GASTROINTESTINAL HEMORRHAGE Current Active Problems CKD (chronic kidney disease) (Acute) Dementia (Acute) Documented agreement for verification by competent clinician of expected ( Acute) Encounter for competency evaluation (Acute) GIB (gastrointestinal bleeding) (Acute) Hypothyroid (Acute) Hospital Course: This is a 77 y/o woman from [facility] with a PMHx of CKD, Anemia, GI Bleed, Dementia, COPD, Parkinson's, Failure to Thrive Recent admission 10/26-11/01 for GI Bleed, Anemia. Sent in for low blood count. Patient has Dementia unable to obtain HPI. Patient received multiple blood transfusions while in patient. While in patient she was evaluated by psychiatry and was deemed to not have capacity. EGD and Colonoscopy was done with C consent. EGD showed no upper GI source for bleeding. Colonoscopy was done and showed moderate diverticulosis , 8mm semi pedunculated polyp in rectosigmoid colon, 2 diminutive polyp in descending colon, 4mm sessile polyp in proximal transverse colon. Recommendations from colonoscopy is to avoid NSAIDs, repeat colonoscopy in 3 years, and capsule endoscopy as outpatient due to bleeding source not being identified. If active bleeding occurs, consider bleeding scan to help localize bleeding source and admit to facility where inpatient capsule endoscopy or double balloon enteroscopy can be performed. Condition: Stable - Instructions Diet, Activity, Other Instructions: CBC weekly follow up with PMD in 1 week low Na diet follow up [facility] Nephrology Dr John continue with medication as prescribed return to ER if develop severe pain, low Hg, respiratory distress, chest pain Referrals: Maria D John MD [Staff Physician] - Sergey Wright DO [Staff Physician] - Disposition: NURSING HOME FACILITY - Home Medications Comprehensive Discharge Medication List: Ambulatory Orders Amlodipine Besylate [Norvasc -] 10 mg PO DAILY 05/27/18 Escitalopram Oxalate [Lexapro -] 20 mg PO DAILY 05/27/18 Latanoprost 0.005% Eye Drops [Xalatan 0.005% Eye Drops -] 1 drop OP HS 05/27/18 Polyethylene Glycol 3350 [Miralax 119 gm Btl -] 17 gm PO DAILY 05/27/18 Ferrous Sulfate [Feosol] 325 mg PO BID ud 06/04/18 Pantoprazole Sodium [Protonix -] 40 mg PO BID tablet.ec 06/04/18 Levothyroxine [Synthroid -] 125 mcg PO DAILY@0700 #30 tablet MDD 1 07/29/18 Tamsulosin HCl [Flomax -] 0.4 mg PO DAILY@0830 #30 cap.er.24h MDD 1 07/29/18 Acetaminophen [Tylenol .Regular Strength -] 650 mg PO Q6H PRN tablet 09/09/18 Sodium Bicarbonate - 650 mg PO BID tablet 10/18/18 Albuterol 0.083% Nebulizer Latoya [Ventolin 0.083% Nebulizer Soln -] 1 amp NEB Q6H PRN amp 11/01/18 Ranitidine [Zantac -] 150 mg PO BID tablet 11/01/18 Ondansetron [Zofran -] 4 mg PO QID 11/22/18 Acetaminophen [Tylenol .Regular Strength -] 650 mg PO Q4H PRN tablet 12/23/18 Amlodipine Besylate [Norvasc -] 10 mg PO DAILY tablet 12/23/18 Levothyroxine [Synthroid -] 125 mcg PO DAILY@0700 tablet 12/23/18 Pantoprazole Sodium [Protonix -] 40 mg PO DAILY tablet.ec 12/23/18 Sodium Zirconium Cyclosilicate [Lokelma] 10 gm PO DAILY packet 12/23/18 hydrALAZINE HCL [Apresoline -] 25 mg PO BID tablet 12/23/18
[2018-12-23 14:24] VITALS: BP 152/72; PULSE 62; TEMP 98.3
--- NOTE | 2018-12-23 18:24 | PATH ---
Surgical Pathology Report Patient Name: EVEI GUAMAN [facility]. Rec. #: [id number] /Age/Gender: 1940 (Age: 78) / F Account: [id number] Location: [facility] MED/SURG Taken: 12/22/2018 Received: 12/22/2018 Reported: 12/23/2018 Physicians: Dick Wright D.O. Specimen(s) Received A: POLYP PROXIMAL TRANSVERSE B: POLYP DESCENDING COLON C: RECTOSIGMOID COLON AT 25 CM Clinical History Anemia, GI bleeding Postoperative diagnosis: Colon polyp, diverticulosis Final Diagnosis A. PROXIMAL TRANSVERSE COLON, POLYP, BIOPSY: TUBULAR ADENOMA. B. DESCENDING COLON, POLYP, BIOPSY: TUBULAR ADENOMA. C. RECTOSIGMOID POLYP, POLYPECTOMY: TUBULAR ADENOMA. Electronically Signed Keena Escalante M.D. Gross Description A. Received in formalin, labeled "biopsy polyp proximal transverse colon" are 2 rojas, irregular portions of soft tissue measuring 0.1 and 0.3 cm. in greatest dimension. The specimens are submitted in toto in one cassette. B. Received in formalin, labeled "biopsy descending colon polyp" is a rojas, irregular portion of soft tissue measuring 0.3 cm. in greatest dimension. The specimen is submitted in toto in one cassette. C. Received in formalin, labeled "rectosigmoid polyp" is a rojas, polypoid portion of soft tissue measuring 0.6 cm. in greatest dimension. The specimen is submitted in toto in one cassette. DL/12/22/2018 saudi12/22/2018
== END 2018-12-23 14:29 | DRG 377 ==
LOC: JER 21:35 → JERBED 11-22 00:23 → J4W 11-22 18:29 → J8W 12-17 22:43
PROVIDERS: ADMIT Family Medicine; ATTEND Family Medicine
PROC: 30233N1 Transfusion of Nonautologous Red Blood Cells into Peripheral Vein, Percutaneous Approach (ICD-10-PCS; 2018-12-07)
PROC: 0DJ08ZZ Inspection of Upper Intestinal Tract, Via Natural or Artificial Opening Endoscopic (ICD-10-PCS; 2018-12-16)
PROC: 0DBL8ZX Excision of Transverse Colon, Via Natural or Artificial Opening Endoscopic, Diagnostic (ICD-10-PCS; 2018-12-22)
PROC: 0DBN8ZX Excision of Sigmoid Colon, Via Natural or Artificial Opening Endoscopic, Diagnostic (ICD-10-PCS; 2018-12-22)
PROC: 0DBM8ZX Excision of Descending Colon, Via Natural or Artificial Opening Endoscopic, Diagnostic (ICD-10-PCS; principal; 2018-12-22 11:15)
DX: K92.2 Gastrointestinal hemorrhage, unspecified (principal); E43 Unspecified severe protein-calorie malnutrition; N17.9 Acute kidney failure, unspecified; I13.0 Hypertensive heart and chronic kidney disease with heart failure and stage 1 through stage 4 chronic kidney disease, or unspecified chronic kidney disease; K91.71 Accidental puncture and laceration of a digestive system organ or structure during a digestive system procedure; J44.9 Chronic obstructive pulmonary disease, unspecified; E03.9 Hypothyroidism, unspecified; G20 Parkinson's disease; F02.80 Dementia in other diseases classified elsewhere, unspecified severity, without behavioral disturbance, psychotic disturbance, mood disturbance, and anxiety; K21.9 Gastro-esophageal reflux disease without esophagitis; I50.9 Heart failure, unspecified; F32.9 Major depressive disorder, single episode, unspecified; N28.1 Cyst of kidney, acquired; M10.9 Gout, unspecified; D64.9 Anemia, unspecified; N18.9 Chronic kidney disease, unspecified; K44.9 Diaphragmatic hernia without obstruction or gangrene; K29.40 Chronic atrophic gastritis without bleeding; E87.5 Hyperkalemia; K57.30 Diverticulosis of large intestine without perforation or abscess without bleeding; K63.5 Polyp of colon; K64.8 Other hemorrhoids; Y83.8 Other surgical procedures as the cause of abnormal reaction of the patient, or of later complication, without mention of misadventure at the time of the procedure
CPT/HCPCS: 36415; 36430; 36511; 71045-TC-FY; 74176-TC; 76775-TC; 80048; 80053; 82272; 83690; 84100; 84484; 85025; 85027; 85610; 85730; 86850; 86900; 86901; 86922; 88305-TC; 93005; 93010; 94640; 97116-GP; 97161-GP; 99285-25; J7030; P9038; P9058; Q0162

== ENCOUNTER 2018-12-28 14:19 | Inpatient (IN) | payer OTHER, BC ==
--- NOTE | 2018-12-28 14:38 | PDOC ---
History of Present Illness - General Stated Complaint: Blood Pressure Problem Time Seen by Provider: 12/28/18 14:35 History Source: EMS - History of Present Illness Initial Comments: 12/28/18 14:44 Per EMS, Ms. Colon is a 78 y.o woman with hx CKD, COPD, recent admission for GI bleed w/ transfusion dependent anemia (discharged 12/23/18), brought in by EMS after nesha bruno noted Hg 5.5 today. She has dementia and is unable to provide history. Past History - Past Medical History Allergies/Adverse Reactions: Allergies Allergy/AdvReac Type Severity Reaction Status Date / Time No Known Allergies Allergy Verified 12/28/18 14:46 Home Medications: Ambulatory Orders Escitalopram Oxalate [Lexapro -] 20 mg PO DAILY 05/27/18 Latanoprost 0.005% Eye Drops [Xalatan 0.005% Eye Drops -] 1 drop OP HS 05/27/18 Polyethylene Glycol 3350 [Miralax 119 gm Btl -] 17 gm PO DAILY 05/27/18 Ferrous Sulfate [Feosol] 325 mg PO BID ud 06/04/18 Tamsulosin HCl [Flomax -] 0.4 mg PO DAILY@0830 #30 cap.er.24h MDD 1 07/29/18 Sodium Bicarbonate - 650 mg PO BID tablet 10/18/18 Albuterol 0.083% Nebulizer Latoya [Ventolin 0.083% Nebulizer Soln -] 1 amp NEB Q6H PRN amp 11/01/18 Ranitidine [Zantac -] 150 mg PO BID tablet 11/01/18 Ondansetron [Zofran -] 4 mg PO QID 11/22/18 Acetaminophen [Tylenol .Regular Strength -] 650 mg PO Q4H PRN tablet 12/23/18 Amlodipine Besylate [Norvasc -] 10 mg PO DAILY tablet 12/23/18 Levothyroxine [Synthroid -] 125 mcg PO DAILY@0700 tablet 12/23/18 Pantoprazole Sodium [Protonix -] 40 mg PO DAILY tablet.ec 12/23/18 Sodium Zirconium Cyclosilicate [Lokelma] 10 gm PO DAILY packet 12/23/18 hydrALAZINE HCL [Apresoline -] 25 mg PO BID tablet 12/23/18 Anemia: Yes Asthma: No Cancer: No Cardiac Disorders: No CVA: No COPD: Yes CHF: No Dementia: Yes Diabetes: No GI Disorders: No Disorders: Yes (incont) HTN: Yes Hypercholesterolemia: Yes Liver Disease: No Seizures: No Thyroid Disease: Yes (hypothyroidsm) - Surgical History Abdominal Surgery: No Appendectomy: Yes Cardiac Surgery: No Cholecystectomy: No Lung Surgery: No Neurologic Surgery: No Orthopedic Surgery: No - Immunization History Immunization Up to Date: Yes - Psycho Social/Smoking Cessation Hx Smoking History: Unknown if ever smoked Have you smoked in the past 12 months: No Number of Cigarettes Smoked Daily: 5 If you are a former smoker, when did you quit?: 5 years ago Hx Alcohol Use: No Drug/Substance Use Hx: No Substance Use Type: None Hx Substance Use Treatment: No Review of Systems - Review of Systems Able to Perform ROS?: No (Dementia) *Physical Exam - Physical Exam Comments: 12/28/18 15:00 PE: GENERAL: Awake, pale, in no acute distress HEAD: No signs of trauma, normocephalic, atraumatic EYES: PERRLA, EOMI, sclera anicteric, conjunctiva clear ENT: Auricles normal inspection, hearing grossly normal, nares patent, oropharynx clear without exudates. Moist mucosa NECK: Normal ROM, supple, no lymphadenopathy, JVD, or masses LUNGS: No distress, speaks full sentences, clear to auscultation bilaterally HEART: Regular rate and rhythm, normal S1 and S2, no murmurs, rubs or gallops, peripheral pulses normal and equal bilaterally. ABDOMEN: Soft, nontender, normoactive bowel sounds. No guarding, no rebound. No masses EXTREMITIES : Normal inspection, Normal range of motion, no edema. No clubbing or cyanosis SKIN: Warm, Dry, normal turgor, no rashes or lesions noted RECTAL: Melena noted. Skin tags noted, no bright red blood. Heart Score/ECG Review - ECG Intrepretation Rhythm: PVC(s) (x1, otherwise regular) - [place]: Normal - ECG Impressions Normal ECG: No Non-specific ST Elevation: No Ischemic Changes: No Bradycardia: No ED Treatment Course - LABORATORY CBC & Chemistry Diagram: 12/29/18 06:00 12/29/18 06:00 Medical Decision Making - Medical Decision Making 12/28/18 14:55 78F hx dementia, parkinsons, CKD, diverticulosis, recent admission for transfusion dependent anemia secondary to lower GI bleed (diverticulosis) transferred from [facility] after Hg found to be 5.5 today, pale on exam, dementia and unable to provide history. Plan: CBC CMP EKG Cardiac profile Type and Screen CXR FOBT PT/INR PTT Dispo: Admit --- Melena on rectal exam. Patient cleaned, diaper changed, sheets changed. No gross blood per rectum. 12/28/18 16:19 Case discussed with PERSONAL CARE ASSISTANT Amado Germain, admitted to Dr. Cabrera, telemetry. --- Lab called - Hg 6.0 Blood products ordered. 12/28/18 16:28 FOBT - positive Discharge - Discharge Information Problems reviewed: Yes Clinical Impression/Diagnosis: Anemia Qualifiers: Anemia type: unspecified type Qualified Code(s): D64.9 - Anemia, unspecified Condition: Guarded - Admission Yes - Follow up/Referral - Patient Discharge Instructions - Post Discharge Activity
--- NOTE | 2018-12-28 15:21 | PDOC ---
Attending Attestation - Resident Resident Name: Kirk Colon - ED Attending Attestation I have performed the following: I have examined & evaluated the patient, The case was reviewed & discussed with the resident, I agree w/resident's findings & plan, Exceptions are as noted - HPI HPI: 12/28/18 16:29 78-year-old female history of COPD dementia GI bleed previous diverticulosis recently admitted earlier this month and anemia receiving multiple transfusions. Patient was sent here today from her senior care for hemoglobin of 5 no reported history of recent right red blood per rectum. Patient historian is unable to answer any questions history is obtained from senior care report and previous chart review. Currently patient has no complaints of chest pain shortness of breath or abdominal pain. Per chart review patient did recently have endoscopy and colonoscopy which showed diverticulosis - Physicial Exam PE: 12/28/18 16:31 Awake alert no acute distress pallor is noted moist mucous membranes pale conjunctiva lungs are clear bilaterally heart is regular without murmurs rubs or gallops abdomen is soft and nontender extremities are warm and well-perfused no edema neurologically the patient is awake alert and oriented to person only - Medical Decision Making 12/28/18 16:31 78-year-old female history of COPD dementia anemia requiring transfusions here today with recurrent anemia. Source is likely diverticular bleeding plan CBC type and screen EKG to rule out any other annular damage anemia admission. Discussion with Dr. patel SEMICONDUCTOR PROCESSING TECHNICIAN , admitted to medicine transfusion initiated Heart Score/ECG Review #1 General ECG Interpretation: Sinus Rhythm, Normal Rate (64), Normal Intervals, No acute ischemic changes Compared to previous ECG there are: Other (nsr with occasional PAC. left axis.)
[2018-12-28 16:16] LABS: EOS % 1.9 % (0-4.5); MCH 28.7 pg (25.7-33.7); MCHC 31.9 g/dl (32.0-36.0); MEAN PLT VOLUME 7.2 fl (7.5-11.1); MONO % 4.4 % (3.8-10.2); NEUT % 70.7 % (42.8-82.8); PLATELET COUNT 452 K/MM3 (134-434); RDW 15.9 % (11.6-15.6); WHITE BLOOD COUNT 9.1 K/mm3 (4.0-10.0)
[2018-12-28 16:19] LABS: HEMATOCRIT 18.9 % (32.4-45.2)
[2018-12-28 16:39] LABS: PROTHROMBIN TIME (PATIENT) 11.8 SEC (9.7-13.0)
[2018-12-28 16:41] LABS: ACTIVATED PTT 35.1 SECONDS (25.2-36.5)
[2018-12-28 16:44] LABS: ALBUMIN 2.9 g/dl (3.4-5.0); BILIRUBIN,TOTAL 0.3 mg/dL (0.2-1); BLOOD UREA NITROGEN 87.5 mg/dL (7-18); CALCIUM 8.9 mg/dL (8.5-10.1); CREATININE 2.5 mg/dL (0.55-1.3); POTASSIUM 5.2 mmol/L (3.5-5.1); TOT PROT 6.6 g/dl (6.4-8.2)
[2018-12-29 06:40] LABS: BASO % 0.6 % (0-2.0); EOS % 0.3 % (0-4.5); HEMATOCRIT 26.9 % (32.4-45.2); LYMPH % 6.9 % (8-40); MCH 28.1 pg (25.7-33.7); MCHC 33.5 g/dl (32.0-36.0); MEAN PLT VOLUME 7.1 fl (7.5-11.1); MONO % 2.4 % (3.8-10.2); NEUT % 89.8 % (42.8-82.8); PLATELET COUNT 374 K/MM3 (134-434); RBC 3.21 M/mm3 (3.60-5.2); RDW 16.7 % (11.6-15.6); WHITE BLOOD COUNT 14.9 K/mm3 (4.0-10.0)
[2018-12-29 06:55] LABS: MEAN CELL VOLUME 83.9 fl (80-96)
[2018-12-29 07:10] LABS: IRON SERUM 231 ug/dL (50-175); TOTAL IRON BINDING CAPACITY 236 ug/dL (250-450)
[2018-12-29] MEDS: LEVOTHYROXINE SODIUM 100 MCG VIAL IVPUSH SCH (07:14)
[2018-12-29 07:20] LABS: ALBUMIN 3.1 g/dl (3.4-5.0); ALK PHOS 72 U/L (45-117); ANION GAP 8 MMOL/L (8-16); BILIRUBIN,TOTAL 0.9 mg/dL (0.2-1); BLOOD UREA NITROGEN 92.1 mg/dL (7-18); CALCIUM 8.8 mg/dL (8.5-10.1); CHLORIDE 107 mmol/L (98-107); CO2 21 mmol/L (21-32); CREATININE 2.4 mg/dL (0.55-1.3); GLUCOSE,RANDOM 89 mg/dL (74-106); SGOT/AST 19 U/L (15-37); SGPT/ALT 13 U/L (13-61); SODIUM 136 mmol/L (136-145); TOT PROT 6.6 g/dl (6.4-8.2)
[2018-12-29] MEDS ORDERED: PANTOPRAZOLE SODIUM 40 MG VIAL ONE (09:17)
[2018-12-29] MEDS ORDERED: PANTOPRAZOLE SODIUM 40 MG VIAL IVPUSH SCH (10:00)
[2018-12-29] MEDS: METOPROLOL TARTRATE 5 MG/5 ML VIAL IVPUSH PRN ×2 (10:35→15:05)
--- NOTE | 2018-12-29 11:04 | HP ---
Admitting History and Physical - Admission Chief Complaint: sent in for low h/h History of Present Illness: 78-year-old female history of COPD dementia GI bleed previous diverticulosis recently admitted earlier this month and anemia receiving multiple transfusions. Patient was sent here today from her custodial for hemoglobin of 5 no reported history of recent right red blood per rectum. Patient historian is unable to answer any questions history is obtained from custodial report and previous chart review. Currently patient has no complaints of chest pain shortness of breath or abdominal pain. 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 COMPLIANCE ANALYST: Yes: Dementia, Parkinson's Cardiovascular: Yes: HTN, Hyperlipdemia Pulmonary: Yes: COPD Gastrointestinal: Yes: GERD, GI Bleed Renal/: Yes: Renal Inusuff Heme/Onc: Yes: Anemia Psych: Yes: Depression Musculoskeletal: Yes: Osteoarthritis Rheumatology: Yes: Other (arthritis) Endocrine: Yes: Hypothyroidism - Past Surgical History Past Surgical History: Yes: Appendectomy, Tonsillectomy - Smoking History Smoking history: Unknown if ever smoked Have you smoked in the past 12 months: No Aproximately how many cigarettes per day: 5 If you are a former smoker, when did you quit?: 5 years ago - Alcohol/Substance Use Hx Alcohol Use: No History of Substance Use: reports: None - Social History ADL: Support Services Occupation: retired History of Recent Travel: No Home Medications - Allergies Allergies/Adverse Reactions: Allergies Allergy/AdvReac Type Severity Reaction Status Date / Time No Known Allergies Allergy Verified 12/28/18 14:46 - Home Medications Home Medications: Ambulatory Orders Escitalopram Oxalate [Lexapro -] 20 mg PO DAILY 05/27/18 Latanoprost 0.005% Eye Drops [Xalatan 0.005% Eye Drops -] 1 drop OP HS 05/27/18 Polyethylene Glycol 3350 [Miralax 119 gm Btl -] 17 gm PO DAILY 05/27/18 Ferrous Sulfate [Feosol] 325 mg PO BID ud 06/04/18 Tamsulosin HCl [Flomax -] 0.4 mg PO DAILY@0830 #30 cap.er.24h MDD 1 07/29/18 Sodium Bicarbonate - 650 mg PO BID tablet 10/18/18 Albuterol 0.083% Nebulizer Latoya [Ventolin 0.083% Nebulizer Soln -] 1 amp NEB Q6H PRN amp 11/01/18 Ranitidine [Zantac -] 150 mg PO BID tablet 11/01/18 Ondansetron [Zofran -] 4 mg PO QID 11/22/18 Acetaminophen [Tylenol .Regular Strength -] 650 mg PO Q4H PRN tablet 12/23/18 Amlodipine Besylate [Norvasc -] 10 mg PO DAILY tablet 12/23/18 Levothyroxine [Synthroid -] 125 mcg PO DAILY@0700 tablet 12/23/18 Pantoprazole Sodium [Protonix -] 40 mg PO DAILY tablet.ec 12/23/18 Sodium Zirconium Cyclosilicate [Lokelma] 10 gm PO DAILY packet 12/23/18 hydrALAZINE HCL [Apresoline -] 25 mg PO BID tablet 12/23/18 Review of Systems - Review of Systems Constitutional: reports: Other (thirsty) Respiratory: reports: No Symptoms Gastrointestinal: reports: No Symptoms Physical Examination Vital Signs: Vital Signs Temperature 97.2 F L 12/29/18 09:20 Pulse Rate 70 12/29/18 10:35 Respiratory Rate 16 12/29/18 10:35 Blood Pressure 170/71 12/29/18 10:35 O2 Sat by Pulse Oximetry (%) 100 12/29/18 10:35 Constitutional: Yes: Calm, Pallor, Thin Cardiovascular: Yes: Regular Rate and Rhythm, S1, S2 Respiratory: Yes: CTA Bilaterally Gastrointestinal: Yes: Normal Bowel Sounds, Soft Edema: No Labs: CBC, BMP 12/29/18 06:00 12/29/18 06:00 Imaging - Results EKG: Report Reviewed (sinus rhytm with PAC) Problem List - Problems (1) Anemia Assessment/Plan: iv ppi trasnfuse to keep h/h> 8 gi evaluation check CBC twice a day Code(s): D64.9 - ANEMIA, UNSPECIFIED Qualifiers: Anemia type: unspecified type Qualified Code(s): D64.9 - Anemia, unspecified (2) Hypothyroid Assessment/Plan: tsh noted increase synthroid dose Code(s): E03.9 - HYPOTHYROIDISM, UNSPECIFIED Qualifiers: (3) CKD (chronic kidney disease) Assessment/Plan: monitor creatinine renal consult Code(s): N18.9 - CHRONIC KIDNEY DISEASE, UNSPECIFIED Qualifiers: Chronic kidney disease stage: on chronic dialysis Qualified Code(s): N18.6 - End stage renal disease; Z99.2 - Dependence on renal dialysis
--- NOTE | 2018-12-29 11:59 | EKG ---
Test Reason : Blood Pressure : / mmHG Vent. Rate : 064 BPM Atrial Rate : 064 BPM P-R Int : 190 ms QRS Dur : 102 ms QT Int : 460 ms P-R-T Axes : 034 002 050 degrees QTc Int : 474 ms SINUS RHYTHM WITH PREMATURE ATRIAL COMPLEXES OTHERWISE NORMAL ECG WHEN COMPARED WITH ECG OF 05-DEC-2018 09:32, PREMATURE ATRIAL COMPLEXES ARE NOW PRESENT QT HAS LENGTHENED Confirmed by RAEANN HAIRSTON, GEORGES ([id number]) on 12/29/2018 11:59:20 AM Referred By: Confirmed By:GEORGES CARY MD
[2018-12-29] MEDS ORDERED: METOPROLOL TARTRATE 5 MG/5 ML VIAL ONE (15:01)
--- NOTE | 2018-12-29 15:47 | CONSULT ---
Consult Consult Specialty:: Nephrology Reason for Consultation:: CKD - History of Present Illness Chief Complaint: sent in for anemia History of Present Illness: Pt is a 78 year old female with pmhx of ckd, gi bleed, anemia. dementia and copd who was sent in for admission for transfusion. She was found to have a hg of 5.5 as outpt. She has dementia and is unable to contribute to any history. She denies shortness of breath. She denies fevers or chills. She was recently hospitalized and she had an endoscopy and colonoscopy which did not reveal a source of bleeding. - History Source History Provided By: Patient, Medical Record - Past Medical History DISABILITY SERVICES COORDINATOR: Yes: Dementia, Parkinson's Cardio/Vascular: Yes: HTN, Hyperlipdemia Pulmonary: Yes: COPD Gastrointestinal: Yes: GERD, GI Bleed Renal/: Yes: Renal Inusuff Psych: Yes: Depression Musculoskeletal: Yes: Osteoarthritis Rheumatology: Yes: Other (arthritis) Endocrine: Yes: Hypothyroidism - Past Surgical History Past Surgical History: Yes: Appendectomy, Tonsillectomy - Alcohol/Substance Use Hx Alcohol Use: No History of Substance Use: reports: None - Smoking History Smoking history: Unknown if ever smoked Have you smoked in the past 12 months: No Aproximately how many cigarettes per day: 5 If you are a former smoker, when did you quit?: 5 years ago - Social History Usual Living Arrangement: [facility] ADL: Support Services Occupation: retired History of Recent Travel: No Home Medications - Allergies Allergies/Adverse Reactions: Allergies Allergy/AdvReac Type Severity Reaction Status Date / Time No Known Allergies Allergy Verified 12/28/18 14:46 - Home Medications Home Medications: Ambulatory Orders Escitalopram Oxalate [Lexapro -] 20 mg PO DAILY 05/27/18 Latanoprost 0.005% Eye Drops [Xalatan 0.005% Eye Drops -] 1 drop OP HS 05/27/18 Polyethylene Glycol 3350 [Miralax 119 gm Btl -] 17 gm PO DAILY 05/27/18 Ferrous Sulfate [Feosol] 325 mg PO BID ud 06/04/18 Tamsulosin HCl [Flomax -] 0.4 mg PO DAILY@0830 #30 cap.er.24h MDD 1 07/29/18 Sodium Bicarbonate - 650 mg PO BID tablet 10/18/18 Albuterol 0.083% Nebulizer Latoya [Ventolin 0.083% Nebulizer Soln -] 1 amp NEB Q6H PRN amp 11/01/18 Ranitidine [Zantac -] 150 mg PO BID tablet 11/01/18 Ondansetron [Zofran -] 4 mg PO QID 11/22/18 Acetaminophen [Tylenol .Regular Strength -] 650 mg PO Q4H PRN tablet 12/23/18 Amlodipine Besylate [Norvasc -] 10 mg PO DAILY tablet 12/23/18 Levothyroxine [Synthroid -] 125 mcg PO DAILY@0700 tablet 12/23/18 Pantoprazole Sodium [Protonix -] 40 mg PO DAILY tablet.ec 12/23/18 Sodium Zirconium Cyclosilicate [Lokelma] 10 gm PO DAILY packet 12/23/18 hydrALAZINE HCL [Apresoline -] 25 mg PO BID tablet 12/23/18 Family Medical History Family History: Unable to Obtain, Denies Review of Systems Unable to obtain ROS, reason: dementia Physical Exam Vital Signs: Vital Signs Temperature 98.8 F 12/29/18 15:10 Pulse Rate 65 12/29/18 15:10 Respiratory Rate 20 12/29/18 15:10 Blood Pressure 162/67 12/29/18 15:10 O2 Sat by Pulse Oximetry (%) 98 12/29/18 15:10 Constitutional: Yes: Calm Eyes: Yes: Conjunctiva Clear HENT: Yes: Atraumatic Cardiovascular: Yes: S1, S2 Respiratory: Yes: CTA Bilaterally Gastrointestinal: Yes: Soft Renal/: Yes: Incontinence Musculoskeletal: Yes: Muscle Weakness Edema: No Neurological: Yes: Confusion Labs: CBC, BMP 12/29/18 06:00 12/29/18 06:00 Imaging - Results Chest X-ray: Report Reviewed Problem List - Problems (1) CHF (congestive heart failure) Code(s): I50.9 - HEART FAILURE, UNSPECIFIED (2) CKD (chronic kidney disease) Code(s): N18.9 - CHRONIC KIDNEY DISEASE, UNSPECIFIED Qualifiers: Chronic kidney disease stage: on chronic dialysis Qualified Code(s): N18.6 - End stage renal disease; Z99.2 - Dependence on renal dialysis Assessment/Plan Current Medications Generic Name Dose Route Start Last Admin Trade Name Freq PRN Reason Stop Dose Admin Levothyroxine Sodium 125 mcg 12/29/18 07:00 12/29/18 07:14 Synthroid Injection - IVPUSH Not Given DAILY@0700 [facility] Metoprolol Tartrate 5 mg 12/28/18 16:05 12/29/18 15:05 Lopressor Injection - IVPUSH 5 mg Q4H PRN Administration HYPERTENSION Pantoprazole Sodium 40 mg 12/29/18 22:00 Protonix Iv IVPUSH BID LINNEA Impression 1. CKD 2. right renal cyst 3. lucero 4. hypothryoid 5. dementia 6. parkinsons 7. HTN 8. gout 9. uremia 10. anemia 11. GI bleed 12. hyperkalemia Plan - monitor renal function - monitor cbc - potassium improved - restart norvasc and hydralazine - avoid nsaids - avoid nephrotoxins
--- NOTE | 2018-12-29 16:42 | CON.GI ---
Consult Consult Specialty:: GI Referred by:: Dr. Cabrera Reason for Consultation:: Anemia - History of Present Illness Chief Complaint: Anemia History of Present Illness: 78F with multiple admissions for evaluation of anemia. Had EGD 12/16/18 that revealed a 2cm sliding hiatal hernia and atrophic gastritis. She had a colonoscopy 12/22 that revealed colon polyps, diverticulosis and was otherwise normal. The terminal ileum was normal. Ms. Colon denies any focal GI complaints. She states that she is tired. She refuses rectal exam. 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 Cardio/Vascular: Yes: HTN, Hyperlipdemia Pulmonary: Yes: COPD Gastrointestinal: Yes: GERD, GI Bleed Renal/: Yes: Renal Inusuff Psych: Yes: Depression Musculoskeletal: Yes: Osteoarthritis Rheumatology: Yes: Other (arthritis) Endocrine: Yes: Hypothyroidism - Past Surgical History Past Surgical History: Yes: Appendectomy, Tonsillectomy - Alcohol/Substance Use Hx Alcohol Use: No History of Substance Use: reports: None - Smoking History Smoking history: Unknown if ever smoked Have you smoked in the past 12 months: No Aproximately how many cigarettes per day: 5 If you are a former smoker, when did you quit?: 5 years ago - Social History Usual Living Arrangement: Jail ADL: Support Services Occupation: retired History of Recent Travel: No Home Medications - Allergies Allergies/Adverse Reactions: Allergies Allergy/AdvReac Type Severity Reaction Status Date / Time No Known Allergies Allergy Verified 12/28/18 14:46 - Home Medications Home Medications: Ambulatory Orders Escitalopram Oxalate [Lexapro -] 20 mg PO DAILY 05/27/18 Latanoprost 0.005% Eye Drops [Xalatan 0.005% Eye Drops -] 1 drop OP HS 05/27/18 Polyethylene Glycol 3350 [Miralax 119 gm Btl -] 17 gm PO DAILY 05/27/18 Ferrous Sulfate [Feosol] 325 mg PO BID ud 06/04/18 Tamsulosin HCl [Flomax -] 0.4 mg PO DAILY@0830 #30 cap.er.24h MDD 1 07/29/18 Sodium Bicarbonate - 650 mg PO BID tablet 10/18/18 Albuterol 0.083% Nebulizer Latoya [Ventolin 0.083% Nebulizer Soln -] 1 amp NEB Q6H PRN amp 11/01/18 Ranitidine [Zantac -] 150 mg PO BID tablet 11/01/18 Ondansetron [Zofran -] 4 mg PO QID 11/22/18 Acetaminophen [Tylenol .Regular Strength -] 650 mg PO Q4H PRN tablet 12/23/18 Amlodipine Besylate [Norvasc -] 10 mg PO DAILY tablet 12/23/18 Levothyroxine [Synthroid -] 125 mcg PO DAILY@0700 tablet 12/23/18 Pantoprazole Sodium [Protonix -] 40 mg PO DAILY tablet.ec 12/23/18 Sodium Zirconium Cyclosilicate [Lokelma] 10 gm PO DAILY packet 12/23/18 hydrALAZINE HCL [Apresoline -] 25 mg PO BID tablet 12/23/18 Review of Systems - Review of Systems Cardiovascular: denies: Chest Pain Gastrointestinal: denies: Abdominal Pain Physical Exam-GI Vital Signs: Vital Signs Temperature 98.1 F 12/29/18 16:01 Pulse Rate 64 12/29/18 16:01 Respiratory Rate 18 12/29/18 16:01 Blood Pressure 156/72 12/29/18 16:01 O2 Sat by Pulse Oximetry (%) 98 12/29/18 15:10 Constitutional: Yes: Calm Eyes: No: Sclera Icterus Cardiovascular: Yes: Regular Rate and Rhythm Respiratory: Yes: Diminished (at bases bilaterally with poor insp effort) Gastrointestinal Inspection: No: Distention ...Auscultate: Yes: Normoactive Bowel Sounds ...Percussion: No: Tympanitic ...Rectal Exam: Yes: Other (refused by patient) Edema: No (No LE edema) Neurological: Yes: Alert Labs: CBC, BMP 12/29/18 06:00 12/29/18 06:00 INR, PTT INR 1.00 (0.83-1.09) 12/28/18 15:50 Problem List - Problems (1) Anemia Assessment/Plan: Patient refused rectal exam. No overt bleeding reported Had recent GI work-up that failed to reveal source of GI bleeding. Patient refusing repeat EGD currently and states that she "does not want to go through that again". Transfuse as needed. Keep Hgb 7-8 Heme evaluation Would consider transfer to tertiary care center further further evaluation. ? inpatient capsule endoscopy +/- further endoscopic small bowel evaluation. Ms. Colon would need to be able to cooperate with these measures and with a transfer. This was discussed with Dr. Cabrera earlier today. If patient amenable, consider CT enterography to evaluate for obvious small bowel pathology. She would have to cooperate with drinking Volumen contrast. Code(s): D64.9 - ANEMIA, UNSPECIFIED Qualifiers: Anemia type: unspecified type Qualified Code(s): D64.9 - Anemia, unspecified
--- NOTE | 2018-12-29 17:36 | CONSULT ---
Consultation: REQUESTING PROVIDER: HEME/ONC service CONSULT REQUEST: We have been asked to medically evaluate this patient for Anemia HISTORY OF PRESENT ILLNESS: Poor historian Pt is a 78 y/o F with COPD dementia GI bleed previous diverticulosis who was recently admitted with GIB. She was sent to the hospital this visit because of Hb of 5. Pt has had ongoing GI workup as an outpt including upper and lower scope, which reportedly revealed divirticulosis. She is also noted to have sliding hiatal hernia, gastritis, and colonic polyps. REVIEW OF SYSTEMS: Pt refused ROS. PHYSICAL EXAMINATION Vital Signs - 24 hr 12/28/18 12/28/18 12/28/18 18:45 19:00 19:05 Temperature 97.7 F 97.2 F L Pulse Rate Pulse Rate [ 74 75 73 Apical] Respiratory 14 14 19 Rate Blood Pressure Blood Pressure [Left Arm] Blood Pressure 122/48 L 126/81 126/81 [Right] O2 Sat by Pulse 98 98 Oximetry (%) 12/28/18 12/28/18 12/29/18 23:30 23:40 08:05 Temperature Pulse Rate Pulse Rate [ 70 76 72 Apical] Respiratory 11 11 20 Rate Blood Pressure Blood Pressure [Left Arm] Blood Pressure 126/81 151/61 179/76 H [Right] O2 Sat by Pulse 100 100 Oximetry (%) 12/29/18 12/29/18 12/29/18 09:20 10:35 14:46 Temperature 97.2 F L Pulse Rate Pulse Rate [ 69 70 Apical] Respiratory 20 16 Rate Blood Pressure 170/71 Blood Pressure [Left Arm] Blood Pressure 161/73 170/71 [Right] O2 Sat by Pulse 100 100 98 Oximetry (%) 12/29/18 12/29/18 12/29/18 14:55 15:05 15:10 Temperature 98.8 F Pulse Rate Pulse Rate [ 72 65 Apical] Respiratory 16 20 Rate Blood Pressure 180/73 H Blood Pressure 184/73 H 162/67 [Left Arm] Blood Pressure 180/73 H [Right] O2 Sat by Pulse 98 98 Oximetry (%) 12/29/18 12/29/18 16:01 16:55 Temperature 98.1 F Pulse Rate 64 Pulse Rate [ Apical] Respiratory 18 Rate Blood Pressure 156/72 Blood Pressure [Left Arm] Blood Pressure [Right] O2 Sat by Pulse 96 Oximetry (%) Limited exam Gen: frail appearing. Not oriented. NAD HEENT: NCAT. EOMI. moist membranes Neck: no jvd noted. No thyromegally Cardio: rrr, normal s1s2. midsystolic murmur Pulm: cta b/l Abd: soft nontender nondistended Laboratory Results - last 24 hr 12/28/18 12/29/18 12/29/18 15:50 06:00 06:00 WBC 14.9 H RBC 3.21 L Hgb 9.0 L Hct 26.9 L D MCV 83.9 D MCH 28.1 MCHC 33.5 RDW 16.7 H Plt Count 374 MPV 7.1 L Absolute Neuts (auto) 13.4 H Neutrophils % 89.8 H D Lymphocytes % 6.9 L D Monocytes % 2.4 L Eosinophils % 0.3 D Basophils % 0.6 Nucleated RBC % 0 Sodium 136 Potassium 5.0 Chloride 107 Carbon Dioxide 21 Anion Gap 8 BUN 92.1 H Creatinine 2.4 H Est GFR (CKD-EPI)AfAm 21.99 Est GFR (CKD-EPI)NonAf 18.97 POC Glucometer Random Glucose 89 Calcium 8.8 Iron TIBC Iron Saturation Unsaturated IBC Total Bilirubin 0.9 AST 19 ALT 13 Alkaline Phosphatase 72 Troponin I < 0.02 Total Protein 6.6 Albumin 3.1 L TSH 18.10 H Blood Type O NEGATIVE Antibody Screen Negative Crossmatch See Detail 12/29/18 12/29/18 12/29/18 06:00 07:54 13:08 WBC RBC Hgb Hct MCV MCH MCHC RDW Plt Count MPV Absolute Neuts (auto) Neutrophils % Lymphocytes % Monocytes % Eosinophils % Basophils % Nucleated RBC % Sodium Potassium Chloride Carbon Dioxide Anion Gap BUN Creatinine Est GFR (CKD-EPI)AfAm Est GFR (CKD-EPI)NonAf POC Glucometer 91 85 Random Glucose Calcium Iron 231 H TIBC 236 L Iron Saturation 97 H Unsaturated IBC 5 L Total Bilirubin AST ALT Alkaline Phosphatase Troponin I Total Protein Albumin TSH Blood Type Antibody Screen Crossmatch Active Medications Generic Name Dose Route Start Last Admin Trade Name Freq PRN Reason Stop Dose Admin Amlodipine Besylate 10 mg 12/29/18 16:00 Norvasc - PO DAILY LINNEA Hydralazine HCl 25 mg 12/29/18 22:00 Apresoline - PO BID LINNEA Levothyroxine Sodium 125 mcg 12/29/18 07:00 12/29/18 07:14 Synthroid Injection - IVPUSH Not Given DAILY@0700 LINNEA Metoprolol Tartrate 5 mg 12/28/18 16:05 12/29/18 15:05 Lopressor Injection - IVPUSH 5 mg Q4H PRN Administration HYPERTENSION Pantoprazole Sodium 40 mg 12/29/18 22:00 Protonix Iv IVPUSH BID LINNEA ASSESSMENT/PLAN: Pt is a 78 y/o F with numerous medical problems including gastritis, hiatal hernia, and colonic polyps as well as recurrent GIB who presents with anemia. Anemia -hb 9 s/p transfusion -normocytic, normochromic -likely GIB considering history -will repeat Fe studies, though results will be interpreted in setting of recent transfusion -transfuse to hb of 7 -pt is evidently refusing GI workup at this time -will order B12 and folate Dispo: We will continue to follow the patient. Thank you for this consultative opportunity. Visit type - Emergency Visit Emergency Visit: Yes ED Registration Date: 12/28/18 Care time: The patient presented to the Emergency Department on the above date and was hospitalized for further evaluation of their emergent condition. - New Patient This patient is new to me today: Yes Date on this admission: 12/29/18 - Critical Care Critical Care patient: No ATTENDING PHYSICIAN STATEMENT I saw and evaluated the patient. I reviewed the resident's note and discussed the case with the resident. I agree with the resident's findings and plan as documented. SUBJECTIVE: OBJECTIVE: ASSESSMENT AND PLAN:
[2018-12-29 18:13] VITALS: BMI 21.4
[2018-12-29] MEDS: amLODIPine BESYLATE 10 MG TABLET (FP) PO SCH (18:15)
[2018-12-29] MEDS: hydrALAZINE HCL 25 MG TABLET (FP) PO SCH (21:59)
[2018-12-29] MEDS: PANTOPRAZOLE SODIUM 40 MG VIAL IVPUSH SCH (21:59)
[2018-12-29] MEDS ORDERED: FLU VACCINE QUAD 60 MCG/0.5 ML (MDV 19-20) IM ONE (22:00)
--- NOTE | 2018-12-30 00:13 | PN ---
Teaching Attending Note Name of Resident: David Nice ATTENDING PHYSICIAN STATEMENT I saw and evaluated the patient. I reviewed the resident's note and discussed the case with the resident. I agree with the resident's findings and plan as documented. ASSESSMENT AND PLAN: Pt is a 78 y/o F with numerous medical problems including dementia, HTn, CKD, hypothyroidism,gastritis, hiatal hernia, and colonic polyps as well as recurrent GIB who presents with anemia -- microcytic ? anemia of chronic disease +/- gi losses will check iron studies/ferritin/B12/ folate replete iv iron Patient also cachectic With significant cognitive impairment from dementia/ Will need goals of care discussion with family
[2018-12-30] MEDS: LEVOTHYROXINE SODIUM 100 MCG VIAL IVPUSH SCH (06:22)
[2018-12-30 07:00] LABS: EOS % 4.5 % (0-4.5); HEMATOCRIT 24.9 % (32.4-45.2); HEMOGLOBIN 8.5 GM/dL (10.7-15.3); LYMPH % 10.2 % (8-40); MCH 28.8 pg (25.7-33.7); MCHC 34.1 g/dl (32.0-36.0); MEAN CELL VOLUME 84.4 fl (80-96); MEAN PLT VOLUME 7.2 fl (7.5-11.1); MONO % 4.3 % (3.8-10.2); PLATELET COUNT 379 K/MM3 (134-434); RBC 2.95 M/mm3 (3.60-5.2); RDW 17.5 % (11.6-15.6); WHITE BLOOD COUNT 9.9 K/mm3 (4.0-10.0)
[2018-12-30 08:14] LABS: ALBUMIN 2.9 g/dl (3.4-5.0); BILIRUBIN,TOTAL 0.5 mg/dL (0.2-1); BLOOD UREA NITROGEN 89.2 mg/dL (7-18); CALCIUM 8.8 mg/dL (8.5-10.1); CREATININE 2.4 mg/dL (0.55-1.3); POTASSIUM 4.6 mmol/L (3.5-5.1); TOT PROT 6.5 g/dl (6.4-8.2)
[2018-12-30] MEDS: amLODIPine BESYLATE 10 MG TABLET (FP) PO SCH (09:38)
[2018-12-30] MEDS: hydrALAZINE HCL 25 MG TABLET (FP) PO SCH (09:38)
[2018-12-30] MEDS: PANTOPRAZOLE SODIUM 40 MG VIAL IVPUSH SCH (11:22)
--- NOTE | 2018-12-30 12:23 | DS ---
Physical Examination Vital Signs: Vital Signs Temperature 98.8 F 12/30/18 09:11 Pulse Rate 73 12/30/18 09:11 Respiratory Rate 18 12/30/18 09:11 Blood Pressure 159/78 12/30/18 09:11 O2 Sat by Pulse Oximetry (%) 96 12/29/18 21:00 Constitutional: Yes: Calm Cardiovascular: Yes: Regular Rate and Rhythm, S1, S2 Respiratory: Yes: CTA Bilaterally Gastrointestinal: Yes: Normal Bowel Sounds, Soft Edema: No Neurological: Yes: Alert, Oriented Labs: CBC, BMP 12/30/18 06:30 12/30/18 06:30 Discharge Summary Problems reviewed: Yes Reason For Visit: ANEMIA MELENA Current Active Problems Anemia (Acute) Hospital Course: 78-year-old female history of COPD dementia GI bleed previous diverticulosis recently admitted earlier this month and anemia receiving multiple transfusions. Patient was sent here today from her snf for hemoglobin of 5 no reported history of recent right red blood per rectum. Patient historian is unable to answer any questions history is obtained from snf report and previous chart review. Currently patient has no complaints of chest pain shortness of breath or abdominal pain. Per chart review patient did recently have endoscopy and colonoscopy which showed diverticulosis patient got PRBC h/h improved had EGD and colonoscopy on last admission no active bleeding site noted rerfusing rectal exam by GI doctor will need CT enterography at tertiary center Condition: Guarded - Instructions Referrals: Jose Cai [Primary Care Provider] - Disposition: INTERMEDIATE FACILITY - Home Medications Comprehensive Discharge Medication List: Ambulatory Orders Escitalopram Oxalate [Lexapro -] 20 mg PO DAILY 05/27/18 Latanoprost 0.005% Eye Drops [Xalatan 0.005% Eye Drops -] 1 drop OP HS 05/27/18 Polyethylene Glycol 3350 [Miralax 119 gm Btl -] 17 gm PO DAILY 05/27/18 Ferrous Sulfate [Feosol] 325 mg PO BID ud 06/04/18 Tamsulosin HCl [Flomax -] 0.4 mg PO DAILY@0830 #30 cap.er.24h MDD 1 07/29/18 Sodium Bicarbonate - 650 mg PO BID tablet 10/18/18 Albuterol 0.083% Nebulizer Latoya [Ventolin 0.083% Nebulizer Soln -] 1 amp NEB Q6H PRN amp 11/01/18 Ranitidine [Zantac -] 150 mg PO BID tablet 11/01/18 Ondansetron [Zofran -] 4 mg PO QID 11/22/18 Acetaminophen [Tylenol .Regular Strength -] 650 mg PO Q4H PRN tablet 12/23/18 Amlodipine Besylate [Norvasc -] 10 mg PO DAILY tablet 12/23/18 Levothyroxine [Synthroid -] 125 mcg PO DAILY@0700 tablet 12/23/18 Pantoprazole Sodium [Protonix -] 40 mg PO DAILY tablet.ec 12/23/18 Sodium Zirconium Cyclosilicate [Lokelma] 10 gm PO DAILY packet 12/23/18 hydrALAZINE HCL [Apresoline -] 25 mg PO BID tablet 12/23/18
--- NOTE | 2018-12-30 13:02 | PN ---
Progress Note, Physician History of Present Illness: Pt seen and examined at bedside. She is awake and appears comfortable. - Current Medication List Current Medications: Active Medications Amlodipine Besylate (Norvasc -) 10 mg PO DAILY [facility] Last Admin: 12/30/18 09:38 Dose: 10 mg Ferrous Sulfate (Feosol -) 325 mg PO BIDWM [facility] Hydralazine HCl (Apresoline -) 25 mg PO BID [facility] Last Admin: 12/30/18 09:38 Dose: 25 mg Levothyroxine Sodium (Synthroid Injection -) 125 mcg IVPUSH DAILY@0700 [facility] Last Admin: 12/30/18 06:22 Dose: 125 mcg Metoprolol Tartrate (Lopressor Injection -) 5 mg IVPUSH Q4H PRN PRN Reason: HYPERTENSION Last Admin: 12/29/18 15:05 Dose: 5 mg Pantoprazole Sodium (Protonix Iv) 40 mg IVPUSH BID [facility] Last Admin: 12/30/18 11:22 Dose: 40 mg - Objective Vital Signs: Vital Signs Temperature 98.8 F 12/30/18 09:11 Pulse Rate 73 12/30/18 09:11 Respiratory Rate 18 12/30/18 09:11 Blood Pressure 159/78 12/30/18 09:11 O2 Sat by Pulse Oximetry (%) 96 12/29/18 21:00 Constitutional: Yes: Calm Eyes: Yes: Conjunctiva Clear Cardiovascular: Yes: S1, S2 Respiratory: Yes: CTA Bilaterally Gastrointestinal: Yes: Soft Genitourinary: Yes: Incontinence Musculoskeletal: Yes: Joint Stiffness Edema: No Integumentary: Yes: WNL Neurological: Yes: Confusion Psychiatric: Yes: Agitated Labs: CBC, BMP 12/30/18 06:30 12/30/18 06:30 INR, PTT INR 1.00 (0.83-1.09) 12/28/18 15:50 Problem List - Problems (1) CHF (congestive heart failure) Code(s): I50.9 - HEART FAILURE, UNSPECIFIED (2) CKD (chronic kidney disease) Code(s): N18.9 - CHRONIC KIDNEY DISEASE, UNSPECIFIED Qualifiers: Chronic kidney disease stage: on chronic dialysis Qualified Code(s): N18.6 - End stage renal disease; Z99.2 - Dependence on renal dialysis Assessment/Plan Current Medications Generic Name Dose Route Start Last Admin Trade Name Freq PRN Reason Stop Dose Admin Amlodipine Besylate 10 mg 12/29/18 16:00 12/30/18 09:38 Norvasc - PO 10 mg DAILY [facility] Administration Ferrous Sulfate 325 mg 12/30/18 17:30 Feosol - PO BIDWM [facility] Hydralazine HCl 25 mg 12/29/18 22:00 12/30/18 09:38 Apresoline - PO 25 mg BID [facility] Administration Levothyroxine Sodium 125 mcg 12/29/18 07:00 12/30/18 06:22 Synthroid Injection - IVPUSH 125 mcg DAILY@0700 [facility] Administration Metoprolol Tartrate 5 mg 12/28/18 16:05 12/29/18 15:05 Lopressor Injection - IVPUSH 5 mg Q4H PRN Administration HYPERTENSION Pantoprazole Sodium 40 mg 12/29/18 22:00 12/30/18 11:22 Protonix Iv IVPUSH 40 mg BID [facility] Administration Impression 1. CKD 2. right renal cyst 3. lucero 4. hypothryoid 5. dementia 6. parkinsons 7. HTN 8. gout 9. uremia 10. anemia 11. GI bleed 12. hyperkalemia Plan - hg improved - renal function stable - cont iron - bp improved - avoid nsaids - avoid nephrotoxins
[2018-12-30] MEDS ORDERED: FERROUS SO4 325 MG TABLET (FP) PO SCH (17:30)
[2018-12-30 18:21] VITALS: BP 154/55; PULSE 78; TEMP 98
== END 2018-12-30 19:39 | DRG 378 ==
LOC: JER 14:19 → JERBED 16:02 → J4S 12-29 15:44
PROVIDERS: ADMIT Family Medicine; ATTEND Family Medicine
PROC: 30233N1 Transfusion of Nonautologous Red Blood Cells into Peripheral Vein, Percutaneous Approach (ICD-10-PCS; principal; 2018-12-28)
DX: K92.2 Gastrointestinal hemorrhage, unspecified (principal); N17.9 Acute kidney failure, unspecified; D64.9 Anemia, unspecified; E03.9 Hypothyroidism, unspecified; J44.9 Chronic obstructive pulmonary disease, unspecified; K21.9 Gastro-esophageal reflux disease without esophagitis; F03.90 Unspecified dementia, unspecified severity, without behavioral disturbance, psychotic disturbance, mood disturbance, and anxiety; E87.5 Hyperkalemia; K92.1 Melena; N28.1 Cyst of kidney, acquired; G20 Parkinson's disease; M10.9 Gout, unspecified; I12.9 Hypertensive chronic kidney disease with stage 1 through stage 4 chronic kidney disease, or unspecified chronic kidney disease; N18.9 Chronic kidney disease, unspecified
CPT/HCPCS: 36415; 36430; 71045-TC-FY; 76937; 80053; 82272; 82550; 82607; 82728; 82746; 82962; 83540; 83550; 84436; 84443; 84466; 84484; 85025; 85610; 85730; 86850; 86900; 86901; 86922; 93005; 93010; 99285-25; G0008; P9058; Q2036

== ENCOUNTER 2019-04-08 05:01 | Inpatient (IN) | payer OTHER ==
--- NOTE | 2019-04-08 05:08 | PDOC ---
History of Present Illness - General Stated Complaint: ABNORMAL LABS Time Seen by Provider: 04/08/19 05:04 - History of Present Illness Initial Comments: 04/08/19 05:08 78 yo F PMH dementia, COPD, hx multiple GI bleeds, known diverticulosis, ESRD with L arm midline, BIBEMS from [facility] due to Hgb of 4. Patient has dementia and is unable to provide more history. However, she does state that she has no abdominal pain, chest pain, or shortness of breath. Notably, patient was recently admitted for GI bleed from 12/28/2018 to 12/30/2018. Patient is full code. Past History - Past Medical History Allergies/Adverse Reactions: Allergies Allergy/AdvReac Type Severity Reaction Status Date / Time No Known Allergies Allergy Verified 04/08/19 05:22 Home Medications: Ambulatory Orders Escitalopram Oxalate [Lexapro -] 10 mg PO DAILY 04/08/19 Ferrous Sulfate 325 mg PO 04/08/19 Hydralazine HCl 25 mg PO BID 04/08/19 Latanoprost/Pf [Latanoprost 0.005% Eye Drop] 1 drop OU DAILY 04/08/19 Levothyroxine Sodium [Levoxyl] 150 mcg PO DAILY 04/08/19 Nifedipine ER [Procardia Xl -] 30 mg PO DAILY 04/08/19 Omeprazole 40 mg PO BID 04/08/19 Ondansetron [Zofran *Odt*] 4 mg SL TID PRN 04/08/19 Polyethylene Glycol 3350 [Miralax (For Daily Use) -] 17 gm PO DAILY 04/08/19 Tamsulosin HCl [Flomax] 0.4 mg PO DAILY 04/08/19 Anemia: Yes Asthma: No Cancer: No Cardiac Disorders: No CVA: No COPD: Yes CHF: No Dementia: Yes Diabetes: No GI Disorders: No Disorders: Yes (incont) HTN: Yes Hypercholesterolemia: Yes Liver Disease: No Seizures: No Thyroid Disease: Yes (hypothyroidsm) - Surgical History Abdominal Surgery: No Appendectomy: Yes Cardiac Surgery: No Cholecystectomy: No Lung Surgery: No Neurologic Surgery: No Orthopedic Surgery: No - Immunization History Immunization Up to Date: Yes - Psycho Social/Smoking Cessation Hx Smoking History: Unknown if ever smoked Have you smoked in the past 12 months: No Number of Cigarettes Smoked Daily: 5 If you are a former smoker, when did you quit?: 5 years ago Cigars Per Day: 20 Hx Alcohol Use: No Drug/Substance Use Hx: No Substance Use Type: None Hx Substance Use Treatment: No Review of Systems - Review of Systems Comments:: 04/08/19 05:26 Limited by dementia. Patient denies chest pain, shortness of breath, or abdominal pain. Refuses to answer other ROS questions. *Physical Exam - Physical Exam 04/08/19 06:02 GENERAL: Awake, alert, oriented only to her own name, in no acute distress. Appears pale. HEAD: Normal with no signs of trauma. EYES: Pupils equal, round and reactive to light, extraocular movements intact, sclera anicteric, conjunctiva clear EARS, NOSE, THROAT: Ears normal, nares patent, oropharynx clear without exudates. Dry mucous membranes. NECK: Normal range of motion, supple without lymphadenopathy or JVD LUNGS: Breath sounds equal, clear to auscultation bilaterally. No wheezes, and no crackles. No accessory muscle use HEART: Regular rate and rhythm, normal S1 and S2 without murmur, rub or gallop ABDOMEN: Soft, nontender, non-distended, normoactive bowel sounds, negative guarding, negative rebound MUSCULOSKELETAL: Normal range of motion at all joints. No bony deformities or tenderness. No CVA tenderness. UPPER EXTREMITIES: Midline in L arm. Edema of R arm. LOWER EXTREMITIES: 2+ pulses, warm, well-perfused. No calf tenderness. No peripheral edema. NEUROLOGICAL: Cranial nerves II-XII intact. Normal speech. PSYCHIATRIC: does not want to answer questions SKIN: Warm, dry, normal turgor, no rashes or lesions noted. ED Treatment Course - LABORATORY CBC & Chemistry Diagram: 04/08/19 13:13 04/08/19 05:51 - RADIOLOGY Radiology Studies Ordered: Category Date Time Status CXRPORT [CHEST X-RAY PORTABLE*] [RAD] Stat Radiology 04/08/19 05:06 Ordered Medical Decision Making - Medical Decision Making 04/08/19 05:27 78 yo F history of GI bleeds, coming in with outpatient Hgb of 4. Concern for repeat GI bleed. - CBC, CMP - EKG, trop - CXR - PT & PTT - stool occult - T+S - likely admit 04/08/19 06:00 Stool occult positive. 04/08/19 06:[address] depressions in I, V4-V6, which were not present in recent EKG in December 2018. Concerning for ischemia, potential posterior KS. However, with active bleeding and outpatient Hgb of 4, will not give aspirin. Will get 2 units pRBCs and transfuse. 04/08/19 06:20 Hgb 4.1. 04/08/19 06:25 Patient's next of kin is Thao Colon, phone number listed as [phone]. However, "call cannot be completed as dialed". Considering urgent nature of transfusion and patient's status as full code, will transfuse with implied consent. 04/08/19 06:48 Trop 2.06. Will admit. 04/08/19 07:03 Discussed patient with RANDY Hernandez, who requests ICU consult. Will also reach out to Dr. Campbell with cardiology for recs. Discussed patient with ICU resident , who states that because the patient is hemodynamically stable, she likely requires tele. Will admit. Discharge - Discharge Information Problems reviewed: Yes Clinical Impression/Diagnosis: Gastrointestinal hemorrhage, Anemia, Elevated troponin Condition: Stable - Admission Yes - Follow up/Referral - Patient Discharge Instructions - Post Discharge Activity
--- NOTE | 2019-04-08 05:52 | PDOC ---
Attending Attestation - Resident Resident Name: Adan Guerrero - ED Attending Attestation I have performed the following: I have examined & evaluated the patient, The case was reviewed & discussed with the resident, I agree w/resident's findings & plan - HPI HPI: 04/08/19 06:19 Pt comes with Hb of 4 from the NH - Physicial Exam PE: 04/08/19 06:19 Pt is in NAD. Hanging out. Pale and slight jaundice Afebrile Heart RRR lungs CTA B right arm swollen and edematous abd soft NT ND no flank pain legs thin and wasted; no swelling and no rashes HEENT normal Pt is demented; but awake and rather alert. SHe will not follow commands. I cant further test neuro exam - Medical Decision Making 04/08/19 06:22 HB here is 4.1 04/08/19 06:37 Occcult blood + in stool Pt has elevated BUN 92; signifies bleed Cr 2.0 04/08/19 07:05 PT WILL BE ADMITTED FOR TRANSFUSION. Heart Score/ECG Review - ECG Intrepretation Rhythm: Regular Rhythm - [place]: Normal - P and SC Delta Wave(s) Present: No WPW: No - ST and T Early Repolarization: No Non Specific ST-T Wave changes: Yes ST Depression Suggest: Ischemia Flattened T Waves: No - ECG Impressions Normal ECG: No Non-specific ST Elevation: No Ischemic Changes: Yes Bradycardia: No Torsades pia Pointes: No WPW: No
[2019-04-08 06:10] LABS: BASO % 0.8 % (0-2.0); EOS % 0.1 % (0-4.5); HEMATOCRIT 12.6 % (32.4-45.2); LYMPH % 10.8 % (8-40); MCH 28.6 pg (25.7-33.7); MCHC 32.5 g/dl (32.0-36.0); MEAN PLT VOLUME 7.8 fl (7.5-11.1); MONO % 5.7 % (3.8-10.2); NEUT % 82.6 % (42.8-82.8); PLATELET COUNT 431 K/MM3 (134-434); RBC 1.43 M/mm3 (3.60-5.2); RDW 15.4 % (11.6-15.6); WHITE BLOOD COUNT 8.3 K/mm3 (4.0-10.0)
[2019-04-08 06:20] LABS: HEMOGLOBIN 4.1 GM/dL (10.7-15.3)
[2019-04-08 06:21] LABS: INR 0.99 (0.83-1.09); PROTHROMBIN TIME (PATIENT) 11.7 SEC (9.7-13.0)
[2019-04-08 06:23] LABS: ACTIVATED PTT 31.4 SECONDS (25.2-36.5)
[2019-04-08 06:35] LABS: ALBUMIN 2.8 g/dl (3.4-5.0); BILIRUBIN,TOTAL 0.2 mg/dL (0.2-1); BLOOD UREA NITROGEN 92.1 mg/dL (7-18); CALCIUM 8.5 mg/dL (8.5-10.1); POTASSIUM 4.4 mmol/L (3.5-5.1); TOT PROT 6.2 g/dl (6.4-8.2)
[2019-04-08] MEDS ORDERED: PANTOPRAZOLE SODIUM 40 MG VIAL IVPUSH ONE (06:35)
[2019-04-08] MEDS ORDERED: PANTOPRAZOLE SODIUM 40 MG VIAL ONE (06:39)
[2019-04-08 07:05] LABS: PLATELET ESTIMATE SLT INCREASE
--- NOTE | 2019-04-08 08:04 | PDOC ---
*Physical Exam - Vital Signs Last Vital Signs Temp Pulse Resp BP Pulse Ox 84 18 133/60 99 04/08/19 06:27 04/08/19 06:27 04/08/19 06:27 04/08/19 05:20 ED Treatment Course - LABORATORY CBC & Chemistry Diagram: 04/09/19 08:15 04/09/19 08:15 - Medications Given in the ED: ED Medications Discontinued Medications Generic Name Dose Route Start Last Admin Trade Name Freq PRN Reason Stop Dose Admin Pantoprazole Sodium 80 mg 04/08/19 06:35 04/08/19 06:45 Protonix Iv IVPUSH 04/08/19 06:36 80 mg ONCE ONE Administration Medical Decision Making - Medical Decision Making Signed out received from Dr. Guerrero. 78F w/hx dementia (unable to provide history), diverticulosis, transfusion dependant blood loss anemia (admitted 01/09-01/10/2019) p/w anemia to 4 noted by [facility]. Patient is admitted, stable vitals at this time. Pending: Transfusion 2 units PRBCs - ordered, not yet ready. Next of kin unable to be reached (phone disconnected). Will contact [facility] to check other contact number, otherwise 2 physician consent for emergent transfusion. Cardiology consult - Dr. Campbell paged earlier, will re-page in 20 min. 04/08/19 07:54 Case discussed with Cardiology (Dr. Caba, computer consultant for Dr. Campbell's service). He will evaluate this afternoon. Plan for blood transfusion, beta yue if she is able to tolerate. Unable to treat ACS in context of severe anemia. Patient to [facility]. Blood is ready, will transfuse upon return. --- Blood transfusion hanging. Discharge - Discharge Information Problems reviewed: Yes Clinical Impression/Diagnosis: Elevated troponin Gastrointestinal hemorrhage Qualifiers: GI bleed type/associated pathology: unspecified gastrointestinal hemorrhage type Qualified Code(s): K92.2 - Gastrointestinal hemorrhage, unspecified Anemia Qualifiers: Anemia type: unspecified type Qualified Code(s): D64.9 - Anemia, unspecified Condition: Stable - Follow up/Referral - Patient Discharge Instructions - Post Discharge Activity
--- NOTE | 2019-04-08 09:59 | HP ---
Admitting History and Physical - Admission History of Present Illness: 04/08/19 05:08 78 yo F PMH dementia, COPD, hx multiple GI bleeds, known diverticulosis, ESRD with L arm midline, BIBEMS from [facility] due to Hgb of 4. Patient has dementia and is unable to provide more history. However, she does state that she has no abdominal pain, chest pain, or shortness of breath. 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's Cardiovascular: Yes: HTN, Hyperlipdemia Pulmonary: Yes: COPD Gastrointestinal: Yes: GERD, GI Bleed Renal/: Yes: Renal Inusuff Heme/Onc: Yes: Anemia Psych: Yes: Depression Musculoskeletal: Yes: Osteoarthritis Rheumatology: Yes: Other (arthritis) Endocrine: Yes: Hypothyroidism - Past Surgical History Past Surgical History: Yes: Appendectomy, Tonsillectomy - Smoking History Smoking history: Unknown if ever smoked Have you smoked in the past 12 months: No Aproximately how many cigarettes per day: 5 If you are a former smoker, when did you quit?: 5 years ago - Alcohol/Substance Use Hx Alcohol Use: No History of Substance Use: reports: None - Social History ADL: Support Services Occupation: retired History of Recent Travel: No Home Medications - Allergies Allergies/Adverse Reactions: Allergies Allergy/AdvReac Type Severity Reaction Status Date / Time No Known Allergies Allergy Verified 04/08/19 05:22 - Home Medications Home Medications: Ambulatory Orders Escitalopram Oxalate [Lexapro -] 10 mg PO DAILY 04/08/19 Ferrous Sulfate 325 mg PO 04/08/19 Hydralazine HCl 25 mg PO BID 04/08/19 Latanoprost/Pf [Latanoprost 0.005% Eye Drop] 1 drop OU DAILY 04/08/19 Levothyroxine Sodium [Levoxyl] 150 mcg PO DAILY 04/08/19 Nifedipine ER [Procardia Xl -] 30 mg PO DAILY 04/08/19 Omeprazole 40 mg PO BID 04/08/19 Ondansetron [Zofran *Odt*] 4 mg SL TID PRN 04/08/19 Polyethylene Glycol 3350 [Miralax (For Daily Use) -] 17 gm PO DAILY 04/08/19 Tamsulosin HCl [Flomax] 0.4 mg PO DAILY 04/08/19 Review of Systems - Review of Systems Cardiovascular: denies: Chest Pain, Shortness of Breath Gastrointestinal: denies: Abdominal Pain Neurological: reports: Confusion Physical Examination Vital Signs: Vital Signs Temperature 97.6 F 04/08/19 08:40 Pulse Rate 83 04/08/19 08:40 Respiratory Rate 18 04/08/19 08:40 Blood Pressure 139/50 L 04/08/19 08:40 O2 Sat by Pulse Oximetry (%) 100 04/08/19 09:24 Cardiovascular: Yes: S1, S2 Respiratory: Yes: Regular, CTA Bilaterally Gastrointestinal: Yes: Normal Bowel Sounds, Soft. No: Tenderness Edema: No Neurological: Yes: Alert, Confusion Labs: CBC, BMP 04/08/19 05:51 04/08/19 05:51 Problem List - Problems (1) Anemia Assessment/Plan: hgb 4 chronic review previous work up transfuse prbc gi consult Code(s): D64.9 - ANEMIA, UNSPECIFIED (2) Elevated troponin Assessment/Plan: probably demand ischemia monitor trends Code(s): R74.8 - ABNORMAL LEVELS OF OTHER SERUM ENZYMES (3) CKD (chronic kidney disease) Assessment/Plan: cr 2 follow levels Code(s): N18.9 - CHRONIC KIDNEY DISEASE, UNSPECIFIED (4) COPD (chronic obstructive pulmonary disease) Code(s): J44.9 - CHRONIC OBSTRUCTIVE PULMONARY DISEASE, UNSPECIFIED
[2019-04-08] MEDS ORDERED: MUPIROCIN 2% TOPICAL OINTMENT FOR DECOLONIZATION NS SCH ×2 (10:00→14:30)
--- NOTE | 2019-04-08 10:41 | PN ---
Progress Note (short form) - Note Progress Note: Patient is a 78 y/o female with a history of GI bleeds, known diverticulosis, ESRD who presented to the hospital with a hgb of 4.1. Patient was found to have a stool occult positive. Patient has remained hemodynamically stable since presentation. Troponin is elevated, patient denies any chest pain. Physical exam General: awake, pale, cachectic Heart: RRR Lungs: CTAL ABD: soft non, tender Extremities: slim, no swelling skin: pale Plan #anemia 2/2 to GI bleed - patient hemodynamically stable - patient has a chornic low hgb at baseline - currently recieving 2 unit PRBC, will f/u labs - patient receiving fluids - positive troponin, demand likely causing STEMI with changes on ekg - will not anticoagulate with current hgb Dispo: patient stable to manage on tele, do not hesitate to call if hemodynamics change and patient becomes unstable
[2019-04-08 13:32] LABS: BASO % 1.1 % (0-2.0); EOS % 0.4 % (0-4.5); HEMATOCRIT 20.5 % (32.4-45.2); LYMPH % 15.4 % (8-40); MCH 29.7 pg (25.7-33.7); MCHC 33.6 g/dl (32.0-36.0); MEAN CELL VOLUME 88.3 fl (80-96); MONO % 5.9 % (3.8-10.2); NEUT % 77.2 % (42.8-82.8); PLATELET COUNT 374 K/MM3 (134-434); RBC 2.32 M/mm3 (3.60-5.2); RDW 14.5 % (11.6-15.6); WHITE BLOOD COUNT 8.1 K/mm3 (4.0-10.0)
--- NOTE | 2019-04-08 13:41 | PN ---
Teaching Attending Note Name of Resident: Keena Diaz ATTENDING PHYSICIAN STATEMENT I saw and evaluated the patient. I reviewed the resident's note and discussed the case with the resident. I agree with the resident's findings and plan as documented. SUBJECTIVE: 78 F, GI bleed, known diverticulosis, ESRD, and dementia. Admitted via the ER with a Hgb of 4.1, stool occult positive. She has remained hemodynamically stable since admission and transfusion support has been initiated. Noted (+) troponin likely due to demand ischemia. Intake & Output 04/05/19 04/06/19 04/07/19 04/08/19 23:59 23:59 23:59 23:59 Weight 110 lb Last Vital Signs Temp Pulse Resp BP Pulse Ox 97.6 F 83 18 139/50 L 100 04/08/19 08:40 04/08/19 08:40 04/08/19 08:40 04/08/19 08:40 04/08/19 09:24 Active Medications Chlorhexidine Gluconate (Hibiclens For Decolonization -) 1 applic TP HS [facility] Mupirocin (Bactroban Ointment (For Decolonization) -) 1 applic NS BID [facility] Stop: 04/13/19 09:59 General: awake, pale, cachectic Heart: RRR Lungs: CTA ABD: soft non, tender Extremities: (-) edema skin: pale IMP: Anemia likely due to diverticular bleed Has remained hemodynamically stable Demand ischemia ESRD Dementia PLAN: Normal transfusion thresholds Supplemental O2 as needed GI evaluation Mechanical VTE prophylaxis No AC Cardiology evaluation Can be safely monitored on Cardiac Telemetry for now Please call if hemodynamics change or there is a change in condition Thank you Dr Fry
[2019-04-08 13:45] LABS: HEMOGLOBIN 6.9 GM/dL (10.7-15.3)
--- NOTE | 2019-04-08 14:21 | CON.CARD ---
Consult Consult Specialty:: Cardiology Referred by:: Dr. Xiong Reason for Consultation:: NSTEMI - History of Present Illness Chief Complaint: Severe anemia and elevated troponin. History of Present Illness: 78 year-old woman with a PMHx of dementia, Parkinson's disease, COPD, multiple GI bleedings, known diverticulosis, ESRD brought in from [facility] due to severe anemia (Hgb of 4). She was found to have elevated troponin (similar to her previous admission in October 2018). The patient was comfortable at the time of exam. She was awake and altert without distress. She denies chest pain, SOB or abdominal pain. Receiving PRBC transfusion. BP and HR are stable. H+H 4.1/12.6. Troponin 2.06 - 2.93. CPK 131 ECG 04/08/19 showed sinus rhythm with frequent APCs. Inferolateral ST-T abnormalities/ischemia. Echocardiogram 06/24/18: Mild concentric LVH with inferoapical severe hypokinesis and preserved LV systolic function. LVEF 50-55%. Normal RV. Moderate LA dilatation. Severe MR. Moderate TR. 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 Cardio/Vascular: Yes: HTN, Hyperlipdemia Pulmonary: Yes: COPD Gastrointestinal: Yes: GERD, GI Bleed Renal/: Yes: Renal Inusuff Psych: Yes: Depression Musculoskeletal: Yes: Osteoarthritis Rheumatology: Yes: Other (arthritis) Endocrine: Yes: Hypothyroidism - Past Surgical History Past Surgical History: Yes: Appendectomy, Tonsillectomy - Alcohol/Substance Use Hx Alcohol Use: No History of Substance Use: reports: None - Smoking History Smoking history: Unknown if ever smoked Have you smoked in the past 12 months: No Aproximately how many cigarettes per day: 5 If you are a former smoker, when did you quit?: 5 years ago - Social History Usual Living Arrangement: Detention ADL: Support Services Occupation: retired History of Recent Travel: No Home Medications - Allergies Allergies/Adverse Reactions: Allergies Allergy/AdvReac Type Severity Reaction Status Date / Time No Known Allergies Allergy Verified 04/08/19 05:22 - Home Medications Home Medications: Ambulatory Orders Escitalopram Oxalate [Lexapro -] 10 mg PO DAILY 04/08/19 Ferrous Sulfate 325 mg PO 04/08/19 Hydralazine HCl 25 mg PO BID 04/08/19 Latanoprost/Pf [Latanoprost 0.005% Eye Drop] 1 drop OU DAILY 04/08/19 Levothyroxine Sodium [Levoxyl] 150 mcg PO DAILY 04/08/19 Nifedipine ER [Procardia Xl -] 30 mg PO DAILY 04/08/19 Omeprazole 40 mg PO BID 04/08/19 Ondansetron [Zofran *Odt*] 4 mg SL TID PRN 04/08/19 Polyethylene Glycol 3350 [Miralax (For Daily Use) -] 17 gm PO DAILY 04/08/19 Tamsulosin HCl [Flomax] 0.4 mg PO DAILY 04/08/19 Review of Systems - Review of Systems Constitutional: reports: Weakness Eyes: reports: No Symptoms HENT: reports: No Symptoms Neck: reports: No Symptoms Cardiovascular: reports: No Symptoms Respiratory: reports: No Symptoms Gastrointestinal: reports: Melena, Rectal Bleeding Genitourinary: reports: No Symptoms Breasts: reports: No Symptoms Reported Vital Signs: Vital Signs Temperature 97.6 F 04/08/19 08:40 Pulse Rate 83 04/08/19 08:40 Respiratory Rate 18 04/08/19 08:40 Blood Pressure 139/50 L 04/08/19 08:40 O2 Sat by Pulse Oximetry (%) 100 04/08/19 09:24 General: Well developed. Chronic ill and frail. No acute distress. Head: Normocephalic. Atraumatic, Eyes: PERRLA, Pale. Neck: Supple. No JVD. No bruits. Heart: Normal S1, S2: Regular rhythm and rate. II/ HSM Lungs: Symmetrical air entry. Clear to auscultation. No crackle. No wheezing or rhonchi. Abdomen: Soft. Bowel sound positive. Non tender. Extremities: No edema. - Other Data Labs, Other Data: CBC, BMP 04/08/19 13:13 04/08/19 05:51 INR, PTT INR 0.99 (0.83-1.09) 04/08/19 05:51 Troponin, BNP 04/08/19 04/08/19 05:51 13:13 Troponin I 2.06 H* 2.93 H* Troponin, BNP 04/08/19 04/08/19 05:51 13:13 Troponin I 2.06 H* 2.93 H* Imaging - Results EKG: Image Reviewed (ECG 04/08/19 showed sinus rhythm with frequent APCs. Inferolateral ST-T abnormalities/ischemia.) Assessment/Plan 78 year-old woman with a PMHx of dementia, Parkinson's disease, COPD, multiple GI bleedings, known diverticulosis, ESRD brought in from [facility] due to severe anemia (Hgb of 4). She was found to have elevated troponin (similar to her previous admission in October 2018). The patient was comfortable at the time of exam. She was awake and altert without distress. She denies chest pain, SOB or abdominal pain. Receiving PRBC transfusion. BP and HR are stable. H+H 4.1/12.6. Troponin 2.06 - 2.93. CPK 131 ECG 04/08/19 showed sinus rhythm with frequent APCs. Inferolateral ST-T abnormalities/ischemia. Echocardiogram 06/24/18: Mild concentric LVH with inferoapical severe hypokinesis and preserved LV systolic function. LVEF 50-55%. Normal RV. Moderate LA dilatation. Severe MR. Moderate TR. NSTEMI in the setting of severe anemia due to GI bleeding: predominantly type II CO, may have underline CAD. 1) Transfusion to keep Hb > 8. 2) Conservative cardiac care. 3) Add metoprolol 25 mg BID for cardiac protection. 4) May stop home nifedipine if BP is lower. Please do not hesitate to call us for re-consult at any time if any further questions or additional issue arises regarding this patient.
[2019-04-08 14:42] LABS: ANISOCYTOSIS 2+; MACROCYTOSIS 0; PLATELET ESTIMATE NORMAL; TARGET CELLS 1+; TEAR DROP CELLS 1+
[2019-04-08] MEDS ORDERED: FUROSEMIDE 40 MG/4 ML INJECTABLE VIAL ONE (15:38)
[2019-04-08] MEDS ORDERED: FUROSEMIDE 40 MG/4 ML INJECTABLE VIAL IVPUSH ONE (16:00)
--- NOTE | 2019-04-08 16:59 | EKG ---
Test Reason : Blood Pressure : / mmHG Vent. Rate : 078 BPM Atrial Rate : 078 BPM P-R Int : 180 ms QRS Dur : 114 ms QT Int : 436 ms P-R-T Axes : 072 025 210 degrees QTc Int : 497 ms SINUS RHYTHM WITH PREMATURE ATRIAL COMPLEXES MARKED ST ABNORMALITY, POSSIBLE INFERIOR SUBENDOCARDIAL INJURY MARKED ST ABNORMALITY, POSSIBLE ANTERIOR SUBENDOCARDIAL INJURY PROLONGED QT ABNORMAL ECG WHEN COMPARED WITH ECG OF 28-DEC-2018 14:50, ST NOW DEPRESSED IN INFERIOR LEADS ST NOW DEPRESSED IN ANTEROLATERAL LEADS T WAVE INVERSION NOW EVIDENT IN LATERAL LEADS CLINICAL CORRELATION IS RECOMMENDED Confirmed by JAYLA HAIRSTON, AMBER ([id number]) on 04/08/2019 4:58:58 PM Referred By: Confirmed By:AMBER DICKERSON MD
[2019-04-08] MEDS ORDERED: CHLORHEXIDINE GLUCONATE 4% CLEANSER FOR DECOLONIZATION TP SCH ×2 (22:00)
[2019-04-09 08:49] LABS: BASO % 1.3 % (0-2.0); EOS % 0.8 % (0-4.5); HEMATOCRIT 24.9 % (32.4-45.2); HEMOGLOBIN 8.4 GM/dL (10.7-15.3); LYMPH % 13.1 % (8-40); MCH 29.5 pg (25.7-33.7); MCHC 33.8 g/dl (32.0-36.0); MEAN CELL VOLUME 87.3 fl (80-96); MEAN PLT VOLUME 7.7 fl (7.5-11.1); MONO % 8.2 % (3.8-10.2); NEUT % 76.6 % (42.8-82.8); PLATELET COUNT 454 K/MM3 (134-434); RBC 2.85 M/mm3 (3.60-5.2); RDW 14.4 % (11.6-15.6); WHITE BLOOD COUNT 8.6 K/mm3 (4.0-10.0)
--- NOTE | 2019-04-09 10:29 | PN ---
Progress Note, Physician - Current Medication List Current Medications: Active Medications Chlorhexidine Gluconate (Hibiclens For Decolonization -) 1 applic TP HS [facility] Mupirocin (Bactroban Ointment (For Decolonization) -) 1 applic NS BID [facility] Stop: 04/13/19 09:59 - Objective Vital Signs: Vital Signs Temperature 97 F L 04/09/19 05:05 Pulse Rate 75 04/09/19 05:05 Respiratory Rate 18 04/09/19 05:05 Blood Pressure 144/74 04/09/19 05:05 O2 Sat by Pulse Oximetry (%) 100 04/08/19 18:00 Cardiovascular: Yes: S1, S2 Respiratory: Yes: Regular, CTA Bilaterally Gastrointestinal: Yes: Normal Bowel Sounds, Soft Labs: CBC, BMP 04/09/19 08:15 04/08/19 05:51 INR, PTT INR 0.99 (0.83-1.09) 04/08/19 05:51 Problem List - Problems (1) Anemia Assessment/Plan: hgb improved review previous work up transfuse prbc gi consult Code(s): D64.9 - ANEMIA, UNSPECIFIED (2) Elevated troponin Assessment/Plan: probably demand ischemia monitor trends cardio appreciated Code(s): R74.8 - ABNORMAL LEVELS OF OTHER SERUM ENZYMES (3) CKD (chronic kidney disease) Assessment/Plan: cr 2 follow levels Code(s): N18.9 - CHRONIC KIDNEY DISEASE, UNSPECIFIED (4) COPD (chronic obstructive pulmonary disease) Code(s): J44.9 - CHRONIC OBSTRUCTIVE PULMONARY DISEASE, UNSPECIFIED
[2019-04-09] MEDS ORDERED: ONDANSETRON *ODT* 4 MG TABLET SL PRN (10:30)
[2019-04-09] MEDS: PANTOPRAZOLE SODIUM 40 MG VIAL IVPUSH SCH (12:00)
[2019-04-09] MEDS: metoPROLOL SUCCINATE 25 MG TAB.SR.24H (FP) PO SCH (12:00)
[2019-04-09] MEDS: ESCITALOPRAM OXALATE 10 MG TABLET PO SCH (12:00)
[2019-04-09 12:09] LABS: ANISOCYTOSIS 0; MACROCYTOSIS 0
[2019-04-09 12:18] LABS: BILIRUBIN,TOTAL 0.5 mg/dL (0.2-1); BLOOD UREA NITROGEN 90.5 mg/dL (7-18); CREATININE 2.2 mg/dL (0.55-1.3); MAGNESIUM 2.1 mg/dL (1.8-2.4); PHOSPHOROUS 3.4 mg/dL (2.5-4.9); POTASSIUM 3.9 mmol/L (3.5-5.1); TOT PROT 6.6 g/dl (6.4-8.2)
--- NOTE | 2019-04-09 15:20 | PN ---
Progress Note (short form) - Note Progress Note: GI CONSULT DICTATED
--- NOTE | 2019-04-09 18:57 | CONS ---
DATE OF CONSULTATION: DATE OF DICTATION: 04/09/2019 HISTORY OF PRESENT ILLNESS: The patient is a 78-year-old female with past medical history of multiple admissions for anemia, also with dementia, Parkinson's, hypertension, hyperlipidemia, COPD, gastrointestinal bleed in the past, osteoarthritis, appendectomy, tonsillectomy, who presents with anemia and weakness. Apparently she had an upper endoscopy done on November 2018 which revealed a sliding hiatal hernia, atrophic gastritis. Also had a colonoscopy done in November 2018 which revealed colonic polyps and diverticulosis which was removed. The terminal ileum was normal at the time. Her hemoglobin was found to be 4 on this admission. She is demented, does not offer any history and is not cooperative with a full exam today. PAST MEDICAL AND SURGICAL HISTORY: As in the HPI. ALLERGIES: No known drug allergies. SOCIAL HISTORY: No smoking, drinking or drug abuse. FAMILY HISTORY: Unable to obtain. HOME MEDICATIONS: Lexapro, iron, hydralazine, eyedrops, levothyroxine, Procardia, omeprazole, Zofran, MiraLAX and Flomax. REVIEW OF SYSTEMS: Limited secondary to her dementia. PHYSICAL EXAMINATION: Vital Signs: Temperature 97, pulse 75, blood pressure 144/74, respiratory rate 18, oxygen saturation 100% on room air. General: No acute distress. HEENT: Anicteric sclerae. Cardiovascular: S1, S2. Regular rate and rhythm. Lungs: Bilaterally clear to auscultation. Abdomen: Soft and nontender. Extremities: Without edema. LABORATORIES: On the her hemoglobin was 4.1. Currently it is 8.4, hematocrit 24, MCV 87, platelet count 454. INR 0.9. Sodium 137, potassium 3.9. BUN 90, creatinine 2.2. Lactic acid 1.6. Total bilirubin 0.5. AST 38, ALT 25, alkaline phosphatase 68. Troponin 3.56. Stool for occult blood was positive on the . She had a chest x-ray which reveals no infiltrates or sign of failure. IMPRESSION: Anemia. Fecal occult blood testing is positive with previous endoscopic findings of atrophic gastritis as well as colonic polyps. There is currently no sign of an overt gastrointestinal bleeding. RECOMMENDATION: Cardiology evaluation for her abnormal troponin and further evaluation of this. Transfuse PRBCs to a hemoglobin above 8. Would start her on Protonix 40 mg p.o. daily. Advance the diet as tolerated. She would benefit from a small bowel capsule study to exclude angiectasia as the etiology of her anemia. In addition, would obtain a hematology consultation for further workup of the anemia. For now will hold off on any invasive procedures. Trend hemoglobin and hematocrit q.12 while hospitalized. Will follow. DO FREDI KAY/[id number]
--- NOTE | 2019-04-10 06:59 | PN.GI ---
GI Progress Note Subjective: NO NEW COMPLAINTS - NO REPORT OF GI BLEED - Objective Vital Signs: Vital Signs Temperature 97.2 F L 04/09/19 19:20 Pulse Rate 72 04/10/19 04:07 Respiratory Rate 16 04/10/19 04:07 Blood Pressure 195/83 H 04/10/19 04:07 O2 Sat by Pulse Oximetry (%) 99 04/10/19 04:07 Constitutional: Well Nourished, No Distress, Calm Eyes: Yes: WNL Cardiovascular: Yes: WNL, Regular Rate and Rhythm Respiratory: Yes: WNL, Regular, CTA Bilaterally Gastrointestinal Inspection: Yes: WNL ...Auscultate: Yes: Normoactive Bowel Sounds Extremities: Yes: WNL Labs: CBC, BMP 04/09/19 08:15 04/09/19 08:15 INR, PTT INR 0.99 (0.83-1.09) 04/08/19 05:51 Problem List - Problems (1) Anemia Assessment/Plan: - H/H STABLE AFTER PRBC - C/W PPI THERAPY - DIET TOLERATED - CARDIOLOGY WORK UP - OUTPT CAPSULE STUDY TO COMPLETE THE ANEMIA WORK UP - WOULD BENEFIT FROM A HEME EVALUATION Code(s): D64.9 - ANEMIA, UNSPECIFIED Qualifiers: Anemia type: unspecified type Qualified Code(s): D64.9 - Anemia, unspecified (2) Elevated troponin Code(s): R74.8 - ABNORMAL LEVELS OF OTHER SERUM ENZYMES
[2019-04-10] MEDS: metoPROLOL SUCCINATE 25 MG TAB.SR.24H (FP) PO SCH ×2 (07:20→22:46)
[2019-04-10] MEDS ORDERED: LEVOTHYROXINE NA 25 MCG TABLET (FP) ONE (09:06)
[2019-04-10] MEDS ORDERED: TAMSULOSIN HCL 0.4 MG CAP ONE (09:06)
[2019-04-10] MEDS: LEVOTHYROXINE NA 150 MCG TABLET PO SCH (09:25)
[2019-04-10] MEDS: TAMSULOSIN HCL 0.4 MG CAP PO SCH (09:25)
[2019-04-10 09:49] LABS: BASO % 0.9 % (0-2.0); EOS % 1.8 % (0-4.5); HEMATOCRIT 26.3 % (32.4-45.2); HEMOGLOBIN 8.8 GM/dL (10.7-15.3); LYMPH % 9.7 % (8-40); MCHC 33.6 g/dl (32.0-36.0); MEAN CELL VOLUME 89.4 fl (80-96); MEAN PLT VOLUME 7.9 fl (7.5-11.1); MONO % 6.9 % (3.8-10.2); NEUT % 80.7 % (42.8-82.8); PLATELET COUNT 459 K/MM3 (134-434); RBC 2.94 M/mm3 (3.60-5.2); RDW 15.1 % (11.6-15.6)
--- NOTE | 2019-04-10 09:52 | PN ---
Progress Note, Physician - Current Medication List Current Medications: Active Medications Chlorhexidine Gluconate (Hibiclens For Decolonization -) 1 applic TP HS [facility] Escitalopram Oxalate (Lexapro -) 10 mg PO DAILY [facility] Latanoprost (Xalatan 0.005% Eye Drops -) 1 drop OU HS [facility] Levothyroxine Sodium (Synthroid -) 150 mcg PO 0700 [facility] Last Admin: 04/10/19 09:25 Dose: 150 mcg Metoprolol Succinate (Toprol Xl -) 25 mg PO BID [facility] Last Admin: 04/10/19 07:20 Dose: 25 mg Mupirocin (Bactroban Ointment (For Decolonization) -) 1 applic NS BID [facility] Stop: 04/13/19 09:59 Ondansetron HCl (Zofran Odt -) 4 mg SL TID PRN PRN Reason: NAUSEA AND/OR VOMITING Pantoprazole Sodium (Protonix Iv) 40 mg IVPUSH BID [facility] Polyethylene Glycol (Miralax (For Daily Use) -) 17 gm PO DAILY [facility] Tamsulosin HCl (Flomax -) 0.4 mg PO 0830 [facility] Last Admin: 04/10/19 09:25 Dose: 0.4 mg - Objective Vital Signs: Vital Signs Temperature 97.2 F L 04/09/19 19:20 Pulse Rate 72 04/10/19 07:22 Respiratory Rate 16 04/10/19 07:22 Blood Pressure 187/87 H 04/10/19 07:22 O2 Sat by Pulse Oximetry (%) 100 04/10/19 07:22 Cardiovascular: Yes: Regular Rate and Rhythm Respiratory: Yes: Regular, CTA Bilaterally Gastrointestinal: Yes: Normal Bowel Sounds, Soft Labs: INR, PTT INR 0.99 (0.83-1.09) 04/08/19 05:51 Problem List - Problems (1) Anemia Assessment/Plan: hgb improved review previous work up transfuse prbc gi consult noted ppi diet hem Code(s): D64.9 - ANEMIA, UNSPECIFIED Qualifiers: Anemia type: unspecified type Qualified Code(s): D64.9 - Anemia, unspecified (2) Elevated troponin Assessment/Plan: probably demand ischemia monitor trends cardio appreciated Code(s): R74.8 - ABNORMAL LEVELS OF OTHER SERUM ENZYMES (3) CKD (chronic kidney disease) Assessment/Plan: cr 2.2 follow levels Code(s): N18.9 - CHRONIC KIDNEY DISEASE, UNSPECIFIED (4) COPD (chronic obstructive pulmonary disease) Code(s): J44.9 - CHRONIC OBSTRUCTIVE PULMONARY DISEASE, UNSPECIFIED
[2019-04-10 10:20] LABS: ALBUMIN 2.9 g/dl (3.4-5.0); BILIRUBIN,TOTAL 0.6 mg/dL (0.2-1); BLOOD UREA NITROGEN 86.2 mg/dL (7-18); CREATININE 2.2 mg/dL (0.55-1.3); TOT PROT 6.4 g/dl (6.4-8.2)
--- NOTE | 2019-04-10 15:25 | ECHO ---
Name: EVIE GUAMAN Exam:Adult Echocardiogram Study Date: 04/10/2019 02:18 PM Age: 78 yrs Reason For Study: EKG Changes Height: 60 in Weight: 110 lb BSA: 1.4 m2 MMode/2D Measurements & Calculations IVSd: 1.3 cm Ao root diam: 2.4 cm LVIDd: 4.8 cm LA dimension: 4.1 cm LVIDs: 3.2 cm ACS: 1.6 cm LVPWd: 1.5 cm EDV(Teich): 109.1 ml LVOT diam: 1.4 cm ESV(Teich): 40.1 ml LVLd ap4: 6.6 cm SV(MOD-sp4): 52.6 ml EDV(MOD-sp4): 119.0 ml LVLs ap4: 6.3 cm ESV(MOD-sp4): 66.4 ml TAPSE: 2.0 cm RV S Celestine: 9.4 cm/sec Doppler Measurements & Calculations MV E max celestine: 156.0 cm/sec Ao V2 max: 117.6 cm/sec MV A max celestine: 98.1 cm/sec Ao max P.5 mmHg MV E/A: 1.6 Ao V2 mean: 77.5 cm/sec MV dec time: 0.17 sec Ao mean P.8 mmHg Ao V2 VTI: 25.1 cm MARCELA(I,D): 0.66 cm2 MARCELA(V,D): 0.69 cm2 LV V1 max P.2 mmHg MR max celestine: 616.4 cm/sec LV V1 mean P.68 mmHg MR max P.0 mmHg LV V1 max: 54.8 cm/sec LV V1 mean: 38.7 cm/sec LV V1 VTI: 11.3 cm SV(LVOT): 16.6 ml TR max celestine: 335.5 cm/sec TR max P.5 mmHg PA V2 max: 73.3 cm/sec PI end-d celestine: 150.7 cm/sec PA max P.1 mmHg PA acc time: 0.10 sec Med Peak E' Celestine: 4.1 cm/sec PA pr(Accel): 34.6 mmHg Med E/e': 37.7 Lat Peak E' Celestine: 6.5 cm/sec Lat E/e': 23.9 Pulm Sys Celestine: 66.7 cm/sec Pulm Rolon Celestine: 48.7 cm/sec Pulm S/D: 1.4 Left Ventricle The left ventricle is normal in size. There is mild concentric left ventricular hypertrophy. Ejection Fraction = 50%. Diastolic dysfunction, Grade III (restrictive pattern), consistent with markedly increased lef t atrial pressure. Distal /apical septum, apex, apical inferior and lateral hypokinesia. Right Ventricle The right ventricle is normal size. The right ventricular systolic function is moderately reduced. Atria The left atrium is severely dilated. Right atrial size is normal. Mitral Valve There is mild to moderate mitral valve thickening. There is moderate to severe mitral annular calcifi cation. There is severe mitral regurgitation. The mitral regurgitant jet is eccentrically directed. Tricuspid Valve The tricuspid valve is not well visualized, but is grossly normal. There is moderate tricuspid regurg itation. Right ventricular systolic pressure is elevated at 40-50mmHg. There is moderate pulmonary hypertensio n. Aortic Valve Mildly calcified. Mild aortic regurgitation. Pulmonic Valve The pulmonic valve is not well seen, but is grossly normal. Mild pulmonic valvular regurgitation. Great Vessels The aortic root is not well visualized. Interpretation Summary LV; Normal size,mild LVH, distal/apical septun,apex,apical inferior and lateral hypokinesia, low norm al systolic function,EF 50%, elevated end diastolic pressure RV; Normal size, moderately hypokinetic LA: Severely dilated MV: Thickened, , severe MR,eccentric jet;calcified annulus TV: Moderate TR, moderate pulmonary hypertension. Lakeisha Landeros 04/10/2019 03:24 PM
[2019-04-10] MEDS: POLYETHYLENE GLYCOL 3350 119 GM BTL PO SCH (17:21)
--- NOTE | 2019-04-10 18:33 | CONSULT ---
Consult - text type - Consultation Consultation Note: 78 yo F PMH dementia, COPD, hx multiple GI bleeds, known diverticulosis, ESRD with L arm midline, BIBEMS from [facility] due to Hgb of 4. Patient has dementia and is unable to provide more history. 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: Dementia, Parkinson's Cardiovascular: Yes: HTN, Hyperlipdemia Pulmonary: Yes: COPD Gastrointestinal: Yes: GERD, GI Bleed Renal/: Yes: Renal Inusuff Heme/Onc: Yes: Anemia Psych: Yes: Depression Musculoskeletal: Yes: Osteoarthritis Rheumatology: Yes: Other (arthritis) Endocrine: Yes: Hypothyroidism - Past Surgical History Past Surgical History: Yes: Appendectomy, Tonsillectomy - Smoking History Smoking history: Unknown if ever smoked - Social History ADL: Support Services Occupation: retired - Allergies Allergies/Adverse Reactions: Allergies Allergy/AdvReac Type Severity Reaction Status Date / Time No Known Allergies Allergy Verified 04/08/19 05:22 - Home Medications Home Medications: Ambulatory Orders Escitalopram Oxalate [Lexapro -] 10 mg PO DAILY 04/08/19 Ferrous Sulfate 325 mg PO 04/08/19 Hydralazine HCl 25 mg PO BID 04/08/19 Latanoprost/Pf [Latanoprost 0.005% Eye Drop] 1 drop OU DAILY 04/08/19 Levothyroxine Sodium [Levoxyl] 150 mcg PO DAILY 04/08/19 Nifedipine ER [Procardia Xl -] 30 mg PO DAILY 04/08/19 Omeprazole 40 mg PO BID 04/08/19 Ondansetron [Zofran *Odt*] 4 mg SL TID PRN 04/08/19 Polyethylene Glycol 3350 [Miralax (For Daily Use) -] 17 gm PO DAILY 04/08/19 Tamsulosin HCl [Flomax] 0.4 mg PO DAILY 04/08/19 Physical Examination Vital Signs: Last Vital Signs Temp Pulse Resp BP Pulse Ox 98.1 F 58 L 16 146/70 96 04/10/19 21:00 04/10/19 21:00 04/10/19 21:00 04/10/19 21:00 04/10/19 18:06 Cardiovascular: Yes: S1, S2 Respiratory: Yes: Regular, CTA Bilaterally Gastrointestinal: Yes: Normal Bowel Sounds, Soft. No: Tenderness Edema: No Neurological: Yes: Alert, Confusion Labs/Meds reviewed Problem List Pt is a 78 y/o F with numerous medical problems including dementia, HTn, CKD, hypothyroidism,gastritis, hiatal hernia, and colonic polyps as well as recurrent GIB who presents with anemia hgb 4 , s/p PRBCs --normocytic, previously microcytic. Platelts mildly elevated ? anemia of chronic disease ( CKD)+/- gi losses( + stool occult) will recheck iron studies/ferritin/B12/ folate elevated TSH--on synthroid -- to adjust per primary team Patient very cachectic With significant cognitive impairment from dementia/ Will need goals of care discussion ? further w/u -- CT scans? GI w/u ? flow/FISH given her overall condition would recommend goals of care discussion with family prior to any further w/u conservative meaures supportive care
[2019-04-10] MEDS: PANTOPRAZOLE SODIUM 40 MG VIAL IVPUSH SCH (22:45)
[2019-04-10] MEDS: LATANOPROST 0.005% OPHTH SOLN 2.5ML BOTTLE OU SCH (22:56)
[2019-04-11] MEDS: LEVOTHYROXINE NA 150 MCG TABLET PO SCH (06:32)
--- NOTE | 2019-04-11 08:36 | PN ---
Progress Note, Physician Chief Complaint: AWAKE CONFUSED WITH H/O DEMENTIA NO FEVERS OR CHILLS S/P PRBC TRANSFUSION - Current Medication List Current Medications: Active Medications Chlorhexidine Gluconate (Hibiclens For Decolonization -) 1 applic TP HS [facility] Escitalopram Oxalate (Lexapro -) 10 mg PO DAILY [facility] Last Admin: 04/09/19 12:00 Dose: Not Given Latanoprost (Xalatan 0.005% Eye Drops -) 1 drop OU HS [facility] Last Admin: 04/10/19 22:56 Dose: Not Given Levothyroxine Sodium (Synthroid -) 150 mcg PO 0700 [facility] Last Admin: 04/11/19 06:32 Dose: 150 mcg Metoprolol Succinate (Toprol Xl -) 25 mg PO BID [facility] Last Admin: 04/10/19 22:46 Dose: 25 mg Mupirocin (Bactroban Ointment (For Decolonization) -) 1 applic NS BID [facility] Stop: 04/13/19 09:59 Ondansetron HCl (Zofran Odt -) 4 mg SL TID PRN PRN Reason: NAUSEA AND/OR VOMITING Pantoprazole Sodium (Protonix Iv) 40 mg IVPUSH BID [facility] Last Admin: 04/10/19 22:45 Dose: 40 mg Polyethylene Glycol (Miralax (For Daily Use) -) 17 gm PO DAILY [facility] Last Admin: 04/10/19 17:21 Dose: Not Given Tamsulosin HCl (Flomax -) 0.4 mg PO 0830 [facility] Last Admin: 04/10/19 09:25 Dose: 0.4 mg - Objective Vital Signs: Vital Signs Temperature 97.8 F 04/11/19 06:00 Pulse Rate 53 L 04/11/19 06:00 Respiratory Rate 16 04/11/19 06:00 Blood Pressure 188/90 H 04/11/19 06:00 O2 Sat by Pulse Oximetry (%) 96 04/11/19 00:00 Constitutional: Yes: Mild Distress Cardiovascular: Yes: Regular Rate and Rhythm Respiratory: Yes: Diminished Gastrointestinal: Yes: Soft Musculoskeletal: Yes: Muscle Weakness Neurological: Yes: Pre-Existing Deficit Psychiatric: Yes: Agitated Labs: CBC, BMP 04/10/19 09:20 INR, PTT INR 0.99 (0.83-1.09) 04/08/19 05:51 Problem List - Problems (1) Anemia Code(s): D64.9 - ANEMIA, UNSPECIFIED Qualifiers: Anemia type: unspecified type Qualified Code(s): D64.9 - Anemia, unspecified (2) Elevated troponin Code(s): R74.8 - ABNORMAL LEVELS OF OTHER SERUM ENZYMES (3) GIB (gastrointestinal bleeding) Code(s): K92.2 - GASTROINTESTINAL HEMORRHAGE, UNSPECIFIED Qualifiers: GI bleed type/associated pathology: unspecified gastrointestinal hemorrhage type Qualified Code(s): K92.2 - Gastrointestinal hemorrhage, unspecified (4) Arthritis Code(s): M19.90 - UNSPECIFIED OSTEOARTHRITIS, UNSPECIFIED SITE (5) Dementia Code(s): F03.90 - UNSPECIFIED DEMENTIA WITHOUT BEHAVIORAL DISTURBANCE Assessment/Plan PATIENT HAS BEEN ADMITTED MULTIPLE TIMES FOR RECURRENT CHRONIC ANEMIA REQUIRING PRBC TRANSFUSIONS FULL CODE AND THERE HAS BEEN DIFFICULTY GETTING A HOLD OF THE NEXT OF KIN. S/P TRANSFUSION AND WITH HER MEDICAL CONDITIONS AND POOR QUALITY OF LIFE WITH DEMENTIA I AM RECOMMENDING COMFORT CARE WILL ALSO HAVE MOLST FORM ATTEMPTED BY FRONT LINE SUPERVISOR. [place] PLANNING TOMORROW
[2019-04-11 08:52] LABS: ALBUMIN 2.9 g/dl (3.4-5.0); BILIRUBIN,TOTAL 0.5 mg/dL (0.2-1); BLOOD UREA NITROGEN 73.1 mg/dL (7-18); CALCIUM 8.4 mg/dL (8.5-10.1); CREATININE 2.1 mg/dL (0.55-1.3); TOT PROT 6.3 g/dl (6.4-8.2)
[2019-04-11] MEDS: ESCITALOPRAM OXALATE 10 MG TABLET PO SCH ×2 (10:56→11:06)
[2019-04-11] MEDS: PANTOPRAZOLE SODIUM 40 MG VIAL IVPUSH SCH ×4 (10:56→21:48)
[2019-04-11] MEDS: metoPROLOL SUCCINATE 25 MG TAB.SR.24H (FP) PO SCH ×3 (10:56→21:48)
[2019-04-11] MEDS: TAMSULOSIN HCL 0.4 MG CAP PO SCH (11:06)
[2019-04-11 12:41] VITALS: BMI 19.3
[2019-04-11] MEDS: POLYETHYLENE GLYCOL 3350 119 GM BTL PO SCH (12:43)
--- NOTE | 2019-04-11 18:39 | PN ---
Progress Note (short form) - Note Progress Note: No acute events No overt bleeding After EGD and colonoscopy (no bleeding sources identified) performed at [facility], Ms. Colon was admitted to [facility]. Unclear what interventions were performed there at that time. Currently refusing evaluation / physical exam or any interventions Ideally, should have continued evaluation of her occult obscure GI bleeding at a tertiary care center (if she is amenable to this) where capsule endoscoopy and DBE (doubel balloon enteroscopy) can be performed
[2019-04-11] MEDS: LATANOPROST 0.005% OPHTH SOLN 2.5ML BOTTLE OU SCH (21:48)
[2019-04-12] MEDS ORDERED: PT OWN MED DRAWER 7, Y5N ONE ×3 (06:02→10:08)
[2019-04-12] MEDS ORDERED: LEVOTHYROXINE NA 75 MCG TABLET (FP) PO SCH (07:00)
--- NOTE | 2019-04-12 09:56 | DS ---
Physical Examination Vital Signs: Vital Signs Temperature 98.1 F 04/12/19 07:25 Pulse Rate 62 04/12/19 07:25 Respiratory Rate 18 04/12/19 07:25 Blood Pressure 142/71 04/12/19 07:25 O2 Sat by Pulse Oximetry (%) 96 04/11/19 21:00 Constitutional: Yes: No Distress Cardiovascular: Yes: Regular Rate and Rhythm Respiratory: Yes: WNL Gastrointestinal: Yes: WNL Renal/: Yes: Incontinence Integumentary: Yes: Rash, Venous Stasis Changes Neurological: Yes: Confusion, Pre-Existing Deficit Labs: CBC, BMP 04/10/19 09:20 04/11/19 07:35 Discharge Summary Problems reviewed: Yes Reason For Visit: GASTROINTESTINAL HEMORRHAGE Current Active Problems Anemia (Acute) Elevated troponin (Acute) GIB (gastrointestinal bleeding) (Acute) Procedures: Principal: transfusion prbc Hospital Course: admitted for hemoglobin of 4 with chronic anemia, transfused prbc. patient with dementia and poor overall quality of life, elevated troponins not a candidate for cardiac cath and intense workup. will send back to [facility] [place] [facility]. Plan of Treatment: please have socially responsible investment adviser start molst form as dnr/dni with court Goals: [place] [facility] care Condition: Stable - Instructions Referrals: Emmanuel Cabrera MD [Primary Care Provider] - [facility]position[facility] - Home Medications Comprehensive Discharge Medication List: Ambulatory Orders Escitalopram Oxalate [Lexapro -] 10 mg PO DAILY 04/08/19 Ferrous Sulfate 325 mg PO 04/08/19 Hydralazine HCl 25 mg PO BID 04/08/19 Latanoprost/Pf [Latanoprost 0.005% Eye Drop] 1 drop OU DAILY 04/08/19 Levothyroxine Sodium [Levoxyl] 150 mcg PO DAILY 04/08/19 Omeprazole 40 mg PO BID 04/08/19 Ondansetron [Zofran *Odt*] 4 mg SL TID PRN 04/08/19 Polyethylene Glycol 3350 [Miralax 119 gm Btl -] 17 gm PO DAILY 04/08/19 Tamsulosin HCl [Flomax -] 0.4 mg PO DAILY 04/08/19 Levothyroxine [Synthroid -] 150 mcg PO 0700 tablet 04/12/19 Metoprolol Succinate [Toprol XL -] 25 mg PO BID tab.sr.24h 04/12/19
[2019-04-12] MEDS: PANTOPRAZOLE SODIUM 40 MG VIAL IVPUSH SCH (10:09)
[2019-04-12] MEDS: TAMSULOSIN HCL 0.4 MG CAP PO SCH (10:09)
[2019-04-12] MEDS: metoPROLOL SUCCINATE 25 MG TAB.SR.24H (FP) PO SCH (10:09)
[2019-04-12] MEDS: ESCITALOPRAM OXALATE 10 MG TABLET PO SCH (10:09)
[2019-04-12] MEDS: POLYETHYLENE GLYCOL 3350 119 GM BTL PO SCH (10:11)
[2019-04-12 13:09] VITALS: BP 125/56; PULSE 56; TEMP 98.2
[2019-04-13] MEDS ORDERED: LEVOTHYROXINE NA 150 MCG TABLET PO SCH (07:00)
== END 2019-04-12 16:29 | DRG 377 ==
LOC: JER 05:01 → JERBED 05:10 → UNDODISIN 14:20 → J4S 04-10 18:43
PROVIDERS: ADMIT Family Medicine; ATTEND Family Medicine
PROC: 30233N1 Transfusion of Nonautologous Red Blood Cells into Peripheral Vein, Percutaneous Approach (ICD-10-PCS; principal; 2019-04-08)
DX: K92.2 Gastrointestinal hemorrhage, unspecified (principal); N18.6 End stage renal disease; I21.A1 Myocardial infarction type 2; R64 Cachexia; I12.0 Hypertensive chronic kidney disease with stage 5 chronic kidney disease or end stage renal disease; Z68.1 Body mass index [BMI] 19.9 or less, adult; D64.9 Anemia, unspecified; J44.9 Chronic obstructive pulmonary disease, unspecified; F03.90 Unspecified dementia, unspecified severity, without behavioral disturbance, psychotic disturbance, mood disturbance, and anxiety; G20 Parkinson's disease; E03.9 Hypothyroidism, unspecified
CPT/HCPCS: 36415; 36430; 36511; 71045-TC-FY; 80053; 82272; 82550; 82607; 82728; 82962; 83540; 83550; 83605; 83735; 84100; 84439; 84443; 84484; 85025; 85610; 85730; 86850; 86900; 86901; 86922; 93005; 93010; 93306-TC; 93971; 99285-25; P9038; P9058

== ENCOUNTER 2019-05-15 11:49 | Inpatient (IN) | payer OTHER ==
[2019-05-15] MEDS ORDERED: SODIUM CHLORIDE 1,225 ML IV ONE (12:15)
[2019-05-15] MEDS ORDERED: ACETAMINOPHEN 1000 MG/100 ML VIAL (NON FORMULARY) IVPB ONE (12:18)
--- NOTE | 2019-05-15 12:19 | PDOC ---
History of Present Illness - General Chief Complaint: Altered Mental Status Stated Complaint: AMS Time Seen by Provider: 05/15/19 12:14 - History of Present Illness Initial Comments: 05/15/19 12:26 78 year old woman with a history of dementia, CKD, COPD, known diverticulosis, GIB ?ESRD with L arm midline?, BIBEMS from [facility] for confusion. The patient's nurse reports that at baseline she is confused but can speak in sent[place] jeanette. At 10:30 they noted that she was mumbling and slightly more incoherent. Nurse reports that the patient had a positive FOBT recently and was supposed to have bloodwork this AM which she refused. The nurse noted some coughing but denies increased work of breathing, n/v/d/c or any other symptoms Code Status: Full ROS unable to obtain 2/2 dementia/ams PE GENERAL: alert HEAD: No signs of trauma, normocephalic, atraumatic EYES: PERRLA, EOMI, sclera anicteric, conjunctiva clear ENT: oropharynx clear without exudates. Dry mucosa NECK: Normal ROM, supple LUNGS: No distress, speaks full sentences, clear to auscultation anteriorly HEART: Regular rate and rhythm, normal S1 and S2, no murmurs, rubs or gallops, peripheral pulses normal and equal bilaterally. ABDOMEN: Soft, nontender, No guarding, no rebound. No masses EXTREMITIES : Normal inspection, Normal range of motion, no edema. No clubbing or cyanosis. NEUROLOGICAL: unable to assess SKIN: Warm, Dry, normal turgor, no rashes or lesions noted Assessment and Plan 78 year old woman with a history of dementia, CKD, COPD, known diverticulosis, GIB ?ESRD with L arm midline?, BIBEMS from [facility] for confusion. Consider infectious vs intracranial pathology vs hypoglycemia vs cardiac vs electroylte derangement vs anemia/GIB -cbc, cmp, coags, t&s, trop - ekg, cxr, head CT - ua, ucx - heme occult - poc glucose - ivf, tylenol Irene Fontana, PGY2 Emergency Medicine Past History - Past Medical History Allergies/Adverse Reactions: Allergies Allergy/AdvReac Type Severity Reaction Status Date / Time No Known Allergies Allergy Verified 05/15/19 12:00 Home Medications: Ambulatory Orders Escitalopram Oxalate [Lexapro -] 10 mg PO DAILY 04/08/19 Ferrous Sulfate 325 mg PO 04/08/19 Hydralazine HCl 25 mg PO BID 04/08/19 Latanoprost/Pf [Latanoprost 0.005% Eye Drop] 1 drop OU DAILY 04/08/19 Levothyroxine Sodium [Levoxyl] 150 mcg PO DAILY 04/08/19 Omeprazole 40 mg PO BID 04/08/19 Ondansetron [Zofran *Odt*] 4 mg SL TID PRN 04/08/19 Polyethylene Glycol 3350 [Miralax 119 gm Btl -] 17 gm PO DAILY 04/08/19 Tamsulosin HCl [Flomax -] 0.4 mg PO DAILY 04/08/19 Levothyroxine [Synthroid -] 150 mcg PO 0700 tablet 04/12/19 Metoprolol Succinate [Toprol XL -] 25 mg PO BID tab.sr.24h 04/12/19 Anemia: Yes Asthma: No Cancer: No Cardiac Disorders: No CVA: No COPD: Yes CHF: No Dementia: Yes Diabetes: No GI Disorders: No Disorders: Yes (incont) HTN: Yes Hypercholesterolemia: Yes Liver Disease: No Seizures: No Thyroid Disease: Yes (hypothyroidsm) - Surgical History Abdominal Surgery: No Appendectomy: Yes Cardiac Surgery: No Cholecystectomy: No Lung Surgery: No Neurologic Surgery: No Orthopedic Surgery: No - Immunization History Immunization Up to Date: Yes - Psycho Social/Smoking Cessation Hx Smoking History: Smoker current status UNK Have you smoked in the past 12 months: No Number of Cigarettes Smoked Daily: 5 If you are a former smoker, when did you quit?: 5 years ago Cigars Per Day: 20 Information on smoking cessation initiated: No Hx Alcohol Use: No Drug/Substance Use Hx: No Substance Use Type: None Hx Substance Use Treatment: No *Physical Exam - Vital Signs Last Vital Signs Temp Pulse Resp BP Pulse Ox 100.5 F H 69 18 174/86 H 94 L 05/15/19 12:00 05/15/19 12:00 05/15/19 12:00 05/15/19 12:00 05/15/19 12:00 ED Treatment Course - RADIOLOGY Radiology Studies Ordered: Category Date Time Status HEAD CT WITHOUT CONTRAST [CT] Stat CT Scan 05/15/19 12:16 Ordered CHEST X-RAY PORTABLE* [RAD] Stat Radiology 05/15/19 12:15 Ordered Discharge - Follow up/Referral Referrals: Emmanuel Cabrera MD [Primary Care Provider] - - Patient Discharge Instructions - Post Discharge Activity
[2019-05-15] MEDS ORDERED: ACETAMINOPHEN INJECTION 100 ML IVPB ONE (13:32)
[2019-05-15 14:20] LABS: HEMATOCRIT 31.7 % (32.4-45.2); HEMOGLOBIN 9.7 GM/dL (10.7-15.3); LYMPH % 18.3 % (8-40); MCH 28.7 pg (25.7-33.7); MCHC 30.5 g/dl (32.0-36.0); MEAN PLT VOLUME 8.6 fl (7.5-11.1); MONO % 8.3 % (3.8-10.2); NEUT % 72.4 % (42.8-82.8); PLATELET COUNT 414 K/MM3 (134-434); RBC 3.37 M/mm3 (3.60-5.2); RDW 20.2 % (11.6-15.6); VENOUS PC02 40.1 mmHg (38-52); WHITE BLOOD COUNT 3.9 K/mm3 (4.0-10.0)
[2019-05-15 14:25] LABS: EPI CELLS 7 /uL (0-25.1); HYALINE CASTS 2 /uL (0-3.1); PH,URINE 5.5 (5.0-8.0); URINE APPEARANCE CLOUDY; URINE BACTERIA ABOVE LINEARITY /uL (0-1359); URINE BILIRUBIN NEGATIVE (NEGATIVE); URINE COLOR YELLOW; URINE GLUCOSE (UA) NEGATIVE (NEGATIVE); URINE KETONE NEGATIVE (NEGATIVE); URINE LEUK ESTERASE 2+ (NEGATIVE); URINE NITRITE NEGATIVE (NEGATIVE); URINE PROTEIN 2+ (NEGATIVE); URINE RBC 22 /uL (0-23.9); URINE WBC 719 /uL (0-25.8)
--- NOTE | 2019-05-15 14:25 | PDOC ---
Documentation entered by Mckayla Kaplan SCRIBE, acting as scribe for Sanya Delgadillo MD. Sanya Delgadillo MD: This documentation has been prepared by the Rosaura marquez Brenda, SCRIBE, under my direction and personally reviewed by me in its entirety. I confirm that the documentation accurately reflects all work, treatment, procedures, and medical decision making performed by me. Attending Attestation - Resident Resident Name: Irene Fontana - ED Attending Attestation I have performed the following: I have examined & evaluated the patient, The case was reviewed & discussed with the resident, I agree w/resident's findings & plan, Exceptions are as noted - HPI HPI: 05/15/19 14:13 78-year-old female history of dementia, CKD, COPD, diverticulosis, GI bleed, BIBEMS for evaluation of AMS from [facility]. At baseline the patient can speak sentences however his computer confused, at approximately 1030 she was noted to be mumbling and a bit more incoherent than usual. The patient's nurse also mentioned she had a positive FOBT/and there is a question of an occasional cough. History is limited from the patient due to her dementia. exam: GENERAL: somnolent, but arousable when shook, pale appearing HEAD: Normocephalic, atraumatic. EYES: sclera anicteric, conjunctiva clear. ENT: dry mucous membranes. NECK: Normal range of motion, supple LUNGS: Breath sounds equal, clear to auscultation bilaterally. No wheezes, no rhonchi, no rales. HEART: Regular rate and rhythm, normal S1 and S2 without murmur, rub or gallop. ABDOMEN: Soft, nontender, No guarding, no rebound. No CVA tenderness EXTREMITIES: Normal range of motion, no edema. A&P: 78-year-old female history of dementia, CKD, COPD, and other medical problems presenting from retirement for increased confusion, noted to be febrile here, also noted to be +FOBT positive. ddx - includes but not limited to occult infection pna, uremia, gib, urosepsis, metabolic derangement will obtain labs, ct head, ua, will reassess - Physicial Exam PE: 05/15/19 14:23 see above - Medical Decision Making 05/15/19 14:34 Patient's blood work reviewed her hemoglobin is stable Her gas is notable for metabolic acidosis, awaiting CMP Patient's UA suggestive of UTI We will treat the patient with antibiotics for UTI her chest x-ray is unremarkable for acute pulmonary disease Heart Score/ECG Review - ECG Impressions Comment:: 05/15/19 14:23 Twelve-lead EKG was performed and reviewed by me There is normal sinus rhythm with a normal rate. Rate of 74. Left bundle branch block when compared with prior ekg, stemi has resulved Discharge - Discharge Information Problems reviewed: Yes Clinical Impression/Diagnosis: Lactic acidosis Urinary tract infection Qualifiers: Urinary tract infection type: site unspecified Hematuria presence: with hematuria Qualified Code(s): N39.0 - Urinary tract infection, site not specifi ed; R31.9 - Hematuria, unspecified Sepsis Qualifiers: Sepsis type: sepsis due to unspecified organism Sepsis acute organ dysfunction status: unspecified Qualified Code(s): A41.9 - Sepsis, unspecified organism Condition: Stable - Admission Yes - Follow up/Referral - Patient Discharge Instructions - Post Discharge Activity
[2019-05-15 14:28] LABS: VENOUS PO2 < 49 mmHg (28-48)
[2019-05-15 14:29] LABS: VENOUS PH 7.19 (7.31-7.41)
[2019-05-15 14:30] LABS: INR 1.32 (0.83-1.09); PROTHROMBIN TIME (PATIENT) 15.6 SEC (9.7-13.0)
[2019-05-15 14:33] LABS: ACTIVATED PTT 35.6 SECONDS (25.2-36.5)
[2019-05-15] MEDS ORDERED: PIPERACILLIN/TAZOB 4.5 GM 4.5 GM in DEXTROSE 5%-WATER 100 ML IVPB ONE (14:35)
[2019-05-15] MEDS ORDERED: PIPERACILLIN/TAZOB 4.5 GM 4.5 GM/100 ML BAG IVPB ONE (14:43)
[2019-05-15 14:45] LABS: ALBUMIN 3.5 g/dl (3.4-5.0); BILIRUBIN,TOTAL 0.7 mg/dL (0.2-1); BLOOD UREA NITROGEN 63.3 mg/dL (7-18); CALCIUM 9.4 mg/dL (8.5-10.1); CREATININE 2.5 mg/dL (0.55-1.3); POTASSIUM 4.8 mmol/L (3.5-5.1); TOT PROT 8.2 g/dl (6.4-8.2)
[2019-05-15] MEDS ORDERED: LACTATED RINGERS SOLUTION 1,000 ML/1,000 ML INFUS.BAG IV SCH (15:00)
[2019-05-15] MEDS ORDERED: ONDANSETRON *ODT* 4 MG TABLET SL PRN (15:42)
[2019-05-15] MEDS ORDERED: ACETAMINOPHEN 650 MG SUPP.RECT PR PRN (15:43)
[2019-05-15] MEDS ORDERED: LACTATED RINGERS SOLUTION 1,000 ML IV SCH (15:45)
--- NOTE | 2019-05-15 21:43 | HP ---
CHIEF COMPLAINT: confusion PCP: Jermaine HISTORY OF PRESENT ILLNESS: Pt is a 78 y/o female with Parkinson's, dementia, CKD, COPD, GI bleed, HTN, and hypothyroidism who presents from [facility] for increased confusion. Per nurse at facility, pt is normally A/O x1 but had difficulty speaking today. She was also reported to have a cough and fever. When asked how the patient is doing, she replied "ok, I guess." She is not able to express if she is in any pain or has any symptoms. ER course was notable for: (1) WBC 3.9, Hb 9.7 (stable), BUN 63.3, Cr 2.5 (2) CT chest bibasilar effusions with compressive atelectasis increased from 11/2018, centrilobular emphysema likely moderate (3) UA +2 protein, +2 leuk esterase, 719 WBC, 22 RBC, increased linearity bacteria (4) CT head negative for acute pathology, chronic left frontal and parietal infarcts (5) EKG NSR HR 74, LBBB, Recent Travel: none known PAST MEDICAL HISTORY: Parkinson's, dementia, CKD, COPD, GI bleed, HTN, and hypothyroidism PAST SURGICAL HISTORY: appendectomy Social History: Smoking: quit 5 years ago Alcohol: none Drugs: none Allergies No Known Allergies Allergy (Verified 05/15/19 12:00) HOME MEDICATIONS: Home Medications Medication Instructions Recorded Hydralazine HCl 25 mg PO BID 04/08/19 Latanoprost/Pf [Latanoprost 0.005% 1 drop OU DAILY 04/08/19 Eye Drop] Omeprazole 20 mg PO BID 04/08/19 Ondansetron [Zofran *Odt*] 4 mg SL TID PRN 04/08/19 Polyethylene Glycol 3350 [Miralax 17 gm PO DAILY 04/08/19 119 gm Btl -] Tamsulosin HCl [Flomax -] 0.4 mg PO DAILY 04/08/19 Levothyroxine [Synthroid -] 150 mcg PO 0700 tablet 04/12/19 Metoprolol Succinate [Toprol XL -] 25 mg PO BID tab.sr.24h 04/12/19 REVIEW OF SYSTEMS unable to perform based on pt's mental status PHYSICAL EXAMINATION Vital Signs - 24 hr 05/15/19 05/15/19 12:00 13:59 Temperature 100.5 F H 100 F H Pulse Rate 69 Pulse Rate [ 110 H Left Radial] Respiratory 18 19 Rate Blood Pressure 174/86 H Blood Pressure 110/64 [Right Arm] O2 Sat by Pulse 94 L Oximetry (%) GENERAL: Awake and alert, responds to her name, not in any apparent distress, thin HEAD: Normal with no signs of trauma. EYES: Pupils equal, round and reactive to light, extraocular movements intact, sclera anicteric, conjunctiva clear. EARS, NOSE, THROAT: Ears normal, nares patent, moist mucous membranes. NECK: Normal range of motion. LUNGS: Rhonchi b/l in anterior upper and lower lung [place]ana HEART: Difficult to auscultate due to coarse breath sounds ABDOMEN: Soft, not distended, hypoactive bowel sounds MUSCULOSKELETAL: Able to move all extremities, no LE edema NEUROLOGICAL: Speaks 1-2 words at a time. Gait not observed. PSYCHIATRIC: Appropriate mood and affect. SKIN: Warm, dry, normal turgor, no rashes or lesions noted. Laboratory Results - last 24 hr 05/15/19 05/15/19 05/15/19 12:44 12:44 12:44 WBC RBC Hgb Hct MCV MCH MCHC RDW Plt Count MPV Absolute Neuts (auto) Neutrophils % Lymphocytes % Monocytes % Eosinophils % Basophils % Nucleated RBC % PT with INR INR PTT (Actin FS) VBG pH POC VBG pCO2 POC VBG pO2 VBG HCO3 VBG O2 Sat (Norman) VBG Base Excess Sodium Potassium Chloride Carbon Dioxide Anion Gap BUN Creatinine Est GFR (CKD-EPI)AfAm Est GFR (CKD-EPI)NonAf POC Glucometer Random Glucose Lactic Acid Calcium Total Bilirubin AST ALT Alkaline Phosphatase Troponin I Total Protein Albumin Urine Color Urine Appearance Urine pH Ur Specific [place] Urine Protein Urine Glucose (UA) Urine Ketones Urine Blood Urine Nitrite Urine Bilirubin Urine Urobilinogen Ur Leukocyte Esterase Urine WBC (Auto) Urine RBC (Auto) Urine Casts (Auto) U Epithel Cells (Auto) Urine Bacteria (Auto) Stool Occult Blood Positive Influenza A (Rapid) Negative Influenza B (Rapid) Negative RSV Rapid Negative Blood Type Antibody Screen 05/15/19 05/15/19 05/15/19 12:48 13:30 13:30 WBC RBC Hgb Hct MCV MCH MCHC RDW Plt Count MPV Absolute Neuts (auto) Neutrophils % Lymphocytes % Monocytes % Eosinophils % Basophils % Nucleated RBC % PT with INR 15.60 H INR 1.32 H PTT (Actin FS) 35.6 VBG pH POC VBG pCO2 POC VBG pO2 VBG HCO3 VBG O2 Sat (Norman) VBG Base Excess Sodium Potassium Chloride Carbon Dioxide Anion Gap BUN Creatinine Est GFR (CKD-EPI)AfAm Est GFR (CKD-EPI)NonAf POC Glucometer 136 Random Glucose Lactic Acid Calcium Total Bilirubin AST ALT Alkaline Phosphatase Troponin I < 0.02 Total Protein Albumin Urine Color Urine Appearance Urine pH Ur Specific [place] Urine Protein Urine Glucose (UA) Urine Ketones Urine Blood Urine Nitrite Urine Bilirubin Urine Urobilinogen Ur Leukocyte Esterase Urine WBC (Auto) Urine RBC (Auto) Urine Casts (Auto) U Epithel Cells (Auto) Urine Bacteria (Auto) Stool Occult Blood Influenza A (Rapid) Influenza B (Rapid) RSV Rapid Blood Type Antibody Screen 05/15/19 05/15/19 05/15/19 13:30 13:30 13:30 WBC 3.9 L RBC 3.37 L Hgb 9.7 L Hct 31.7 L D MCV 94.0 MCH 28.7 MCHC 30.5 L RDW 20.2 H Plt Count 414 MPV 8.6 Absolute Neuts (auto) 2.8 Neutrophils % 72.4 Lymphocytes % 18.3 D Monocytes % 8.3 Eosinophils % 0.0 D Basophils % 1.0 Nucleated RBC % 1 H PT with INR INR PTT (Actin FS) VBG pH 7.19 L* POC VBG pCO2 40.1 POC VBG pO2 < 49 H VBG HCO3 14.6 L VBG O2 Sat (Norman) 14.7 L VBG Base Excess -12.6 L Sodium Potassium Chloride Carbon Dioxide Anion Gap BUN Creatinine Est GFR (CKD-EPI)AfAm Est GFR (CKD-EPI)NonAf POC Glucometer Random Glucose Lactic Acid Calcium Total Bilirubin AST ALT Alkaline Phosphatase Troponin I Total Protein Albumin Urine Color Urine Appearance Urine pH Ur Specific [place] Urine Protein Urine Glucose (UA) Urine Ketones Urine Blood Urine Nitrite Urine Bilirubin Urine Urobilinogen Ur Leukocyte Esterase Urine WBC (Auto) Urine RBC (Auto) Urine Casts (Auto) U Epithel Cells (Auto) Urine Bacteria (Auto) Stool Occult Blood Influenza A (Rapid) Influenza B (Rapid) RSV Rapid Blood Type O NEGATIVE Antibody Screen Negative 05/15/19 05/15/19 05/15/19 13:30 13:30 13:30 WBC RBC Hgb Hct MCV MCH MCHC RDW Plt Count MPV Absolute Neuts (auto) Neutrophils % Lymphocytes % Monocytes % Eosinophils % Basophils % Nucleated RBC % PT with INR INR PTT (Actin FS) VBG pH POC VBG pCO2 POC VBG pO2 VBG HCO3 VBG O2 Sat (Norman) VBG Base Excess Sodium 134 L Potassium 4.8 Chloride 106 Carbon Dioxide 13 L Anion Gap 15 BUN 63.3 H Creatinine 2.5 H Est GFR (CKD-EPI)AfAm 20.93 Est GFR (CKD-EPI)NonAf 18.06 POC Glucometer Random Glucose 144 H Lactic Acid 4.6 H* Calcium 9.4 Total Bilirubin 0.7 AST 152 H ALT 105 H Alkaline Phosphatase 151 H Troponin I Total Protein 8.2 Albumin 3.5 Urine Color Yellow Urine Appearance Cloudy Urine pH 5.5 Ur Specific [place] 1.015 Urine Protein 2+ H Urine Glucose (UA) Negative Urine Ketones Negative Urine Blood Negative Urine Nitrite Negative Urine Bilirubin Negative Urine Urobilinogen 1.0 Ur Leukocyte Esterase 2+ H Urine WBC (Auto) 719 Urine RBC (Auto) 22 Urine Casts (Auto) 2 U Epithel Cells (Auto) 7 Urine Bacteria (Auto) Above linearity Stool Occult Blood Influenza A (Rapid) Influenza B (Rapid) RSV Rapid Blood Type Antibody Screen 05/15/19 18:30 WBC RBC Hgb Hct MCV MCH MCHC RDW Plt Count MPV Absolute Neuts (auto) Neutrophils % Lymphocytes % Monocytes % Eosinophils % Basophils % Nucleated RBC % PT with INR INR PTT (Actin FS) VBG pH POC VBG pCO2 POC VBG pO2 VBG HCO3 VBG O2 Sat (Norman) VBG Base Excess Sodium Potassium Chloride Carbon Dioxide Anion Gap BUN Creatinine Est GFR (CKD-EPI)AfAm Est GFR (CKD-EPI)NonAf POC Glucometer Random Glucose Lactic Acid 1.6 Calcium Total Bilirubin AST ALT Alkaline Phosphatase Troponin I Total Protein Albumin Urine Color Urine Appearance Urine pH Ur Specific [place] Urine Protein Urine Glucose (UA) Urine Ketones Urine Blood Urine Nitrite Urine Bilirubin Urine Urobilinogen Ur Leukocyte Esterase Urine WBC (Auto) Urine RBC (Auto) Urine Casts (Auto) U Epithel Cells (Auto) Urine Bacteria (Auto) Stool Occult Blood Influenza A (Rapid) Influenza B (Rapid) RSV Rapid Blood Type Antibody Screen ASSESSMENT/PLAN: Pt is a 78 y/o female with Parkinson's, dementia, CKD, COPD, GI bleed, HTN, and hypothyroidism who presents from [facility] for increased confusion. She also has cough and fever. #acute metabolic encephalopathy #sepsis possibly 2/2 acute cystitis with positive UA vs COVID from cough and fever vs less likely stroke -LA 4.6-->1.6 after NS -UA positive for acute cystitis -flu and RSV negative -COVID test pending -repeat LA in the morning -CT chest shows b/l pleural effusions with compressive atelectasis which effusions are increased from previous CT in 11/2018 -CT head negative for acute pathology -cefepime 1g BID -vancomycin 750mg daily -airborne and contact precautions -ID consulted #acute cystitis +2 leuk esterase, 719 WBCs, bacteria above linearity -urine cx pending -Zosyn given in ED -cefepime #LUCERO on CKD Cr 2.5, baseline 2-2.1 -serum/urine osms -urine electrolytes -I/Os with funes -renal dosing of medications -gentle IV hydration #transaminitis possibly 2/2 COVID -avoid hepatotoxic agents -RUQ U/S -monitor labs #chronic normocytic anemia chronic, recent GI bleed admission, FOBT positive today -iron/ferritin studies -TSH #prolonged QTc (512) -repeat EKG in the morning -avoid QTc prolonging agents -d/c'ed home Zofran #hyperglycemia BG 144 -A1C pending #COPD -O2 to maintain sat -consider albuterol inhaler if worsening #GI bleed Hb stable now -monitor labs -omeprazole -iron #HTN -metoprolol succinate #hypothyroidism -levothyroxine #dementia/Parkinson's -Lexapro -Ativan 0.5mg x1 given overnight because of agitation FEN NS 42mL/hr monitor labs NPO DVT Ppx SCDs dispo med/surg Visit type - Emergency Visit Emergency Visit: Yes ED Registration Date: 05/15/19 Care time: The patient presented to the Emergency Department on the above date and was hospitalized for further evaluation of their emergent condition. - New Patient This patient is new to me today: Yes Date on this admission: 05/16/19 - Critical Care Critical Care patient: No ATTENDING PHYSICIAN STATEMENT I saw and evaluated the patient. I reviewed the resident's note and discussed the case with the resident. I agree with the resident's findings and plan as documented. SUBJECTIVE: OBJECTIVE: ASSESSMENT AND PLAN:
[2019-05-15] MEDS: hydrALAZINE HCL 25 MG TABLET (FP) PO SCH (22:02)
[2019-05-15] MEDS: metoPROLOL SUCCINATE 25 MG TAB.SR.24H (FP) PO SCH (22:03)
--- NOTE | 2019-05-15 22:54 | PN ---
Teaching Attending Note Name of Resident: Kareen Valencia ATTENDING PHYSICIAN STATEMENT I saw and evaluated the patient. I reviewed the resident's note and discussed the case with the resident. I agree with the resident's findings and plan as documented. History obtained from EMR as patient is nonverbal SUBJECTIVE: 78 year old woman with a history of dementia, CKD, COPD, diverticulosis, GIB ckd BIBEMS from [facility] for confusion. The patient's nurse reports that at baseline she is confused but can speak in sentences. In the morning on 05/15/2019 long term staff noticed that patient was mumbling incoherently. Nurse at long term noted that patient was having some coughing but there is no mention of increased work of breathing. OBJECTIVE: Last Vital Signs Temp Pulse Resp BP Pulse Ox 97.9 F 60 20 144/77 98 05/15/19 22:22 05/15/19 22:22 05/15/19 22:22 05/15/19 22:22 05/15/19 22:22 On physical exam patient was an elderly, disheveled woman nontoxic-appearing. She did not appear to be in respiratory distress at that time. Head was atraumatic, normocephalic. Upper extremities with rheumatoid arthritis-like deformities in her hands bilaterally. Abdomen was soft and nontender. Lower extremities with no peripheral edema noted. Abnormal Lab Results 05/15/19 05/15/19 05/15/19 13:30 13:30 13:30 WBC 3.9 L RBC 3.37 L Hgb 9.7 L Hct 31.7 L D MCHC 30.5 L RDW 20.2 H Nucleated RBC % 1 H PT with INR 15.60 H INR 1.32 H VBG pH 7.19 L* POC VBG pO2 < 49 H VBG HCO3 14.6 L VBG O2 Sat (Norman) 14.7 L VBG Base Excess -12.6 L Sodium Carbon Dioxide BUN Creatinine Random Glucose Lactic Acid AST ALT Alkaline Phosphatase Urine Protein Ur Leukocyte Esterase 05/15/19 05/15/19 05/15/19 13:30 13:30 13:30 WBC RBC Hgb Hct MCHC RDW Nucleated RBC % PT with INR INR VBG pH POC VBG pO2 VBG HCO3 VBG O2 Sat (Norman) VBG Base Excess Sodium 134 L Carbon Dioxide 13 L BUN 63.3 H Creatinine 2.5 H Random Glucose 144 H Lactic Acid 4.6 H* AST 152 H ALT 105 H Alkaline Phosphatase 151 H Urine Protein 2+ H Ur Leukocyte Esterase 2+ H Chest CT reviewed and noted to have bilateral pleural effusionsleft greater than right. Appears to have bilateral diffuse groundglass changes in her lung parenchyma. ASSESSMENT AND PLAN: 69-year-old long term patient with sepsis,fever of 100.5 Fahrenheit, tachycardia, high lactic acidosis of 4.6 which has improved to 1.6. Suspect possible covid 19 versus community-acquired pneumonia. UA also noted to have significant pyuria and leukocyte esterase and patient may also have urinary tract infection. Flu swab was negative and RSV swab was negative. Admit to [facility] Airborne and contact isolation Cefepime, vancomycin, azithromycin renally dosed Oxygen therapy via nasal cannula as needed Infectious disease consult Blood cultures, strep urine antigen, urine Legionella antigen, sputum culture, urine culture #Severe normocytic anemiaFOBT was positive, suspect possible GI bleed especially given history of past GI bleed Ferritin level, iron studies, vitamin B12, TSH Consider GI consult #CKD Avoid nephrotoxins Renal consult I's and O's #Hyponatremiasuspect may be secondary to SIADH Urine osmoles, serum osmoles, urine lites Gentle IV fluid hydration #Transaminitis may be secondary to Covid 19 infection Liver ultrasound Avoid hepatotoxins #DVT prophylaxisSCDs
[2019-05-15] MEDS ORDERED: CEFEPIME HCL/D5W 1 GM/50 ML BAG IVPB SCH ×2 (23:15→23:30)
[2019-05-15] MEDS ORDERED: VANCOMYCIN 750 MG in DEXTROSE 5%-WATER - 250 ML IVPB SCH (23:30)
[2019-05-15] MEDS ORDERED: VANCOMYCIN 1 GM in D5W (PRE-DOCKED) 1,000 MG/250 ML IVPB SCH (23:30)
[2019-05-15] MEDS ORDERED: AZITHROMYCIN IVPB 500 MG in DEXTROSE 5%-WATER - 250 ML IVPB ONE (23:31)
[2019-05-15] MEDS ORDERED: SODIUM CHLORIDE 1,000 ML IV SCH (23:45)
[2019-05-15] MEDS ORDERED: CEFEPIME 1 GM/100 ML BAG IVPB ONE (23:47)
[2019-05-15] MEDS ORDERED: AZITHROMYCIN IVPB 500 MG/250 ML BAG IVPB ONE (23:47)
[2019-05-16] MEDS ORDERED: LORazepam 2 MG/ML SDV VIAL IVPUSH ONE (01:38)
[2019-05-16] MEDS ORDERED: LORazepam 2 MG/ML SDV VIAL ONE (01:48)
[2019-05-16 08:55] LABS: BASO % 0.7 % (0-2.0); EOS % 0.1 % (0-4.5); LYMPH % 11.1 % (8-40); MCH 28.6 pg (25.7-33.7); MEAN CELL VOLUME 95.5 fl (80-96); MEAN PLT VOLUME 8.6 fl (7.5-11.1); MONO % 13.3 % (3.8-10.2); NEUT % 74.8 % (42.8-82.8); PLATELET COUNT 326 K/MM3 (134-434); RBC 3.15 M/mm3 (3.60-5.2); RDW 20.8 % (11.6-15.6); WHITE BLOOD COUNT 7.9 K/mm3 (4.0-10.0)
[2019-05-16 09:26] LABS: ALBUMIN 2.9 g/dl (3.4-5.0); BILIRUBIN,TOTAL 0.7 mg/dL (0.2-1); BLOOD UREA NITROGEN 59.9 mg/dL (7-18); CALCIUM 8.3 mg/dL (8.5-10.1); CREATININE 2.2 mg/dL (0.55-1.3); POTASSIUM 4.2 mmol/L (3.5-5.1); TOT PROT 6.8 g/dl (6.4-8.2)
[2019-05-16] MEDS ORDERED: AZITHROMYCIN IVPB 250 MG in DEXTROSE 5%-WATER - 250 ML IVPB SCH (10:00)
[2019-05-16] MEDS ORDERED: CEFEPIME HCL/D5W 1 GM/50 ML BAG IVPB SCH (10:00)
--- NOTE | 2019-05-16 10:06 | EKG ---
Test Reason : Blood Pressure : / mmHG Vent. Rate : 074 BPM Atrial Rate : 074 BPM P-R Int : 172 ms QRS Dur : 178 ms QT Int : 462 ms P-R-T Axes : 055 003 130 degrees QTc Int : 512 ms SINUS RHYTHM WITH PREMATURE SUPRAVENTRICULAR COMPLEXES LEFT BUNDLE BRANCH BLOCK ABNORMAL ECG Confirmed by Schuyler Campbell MD ([id number]) on 05/16/2019 10:06:25 AM Referred By: Confirmed By:Schuyler Campbell MD
[2019-05-16 10:40] LABS: ANISOCYTOSIS 2+; MACROCYTOSIS 1+; OVALOCYTE 2+; PLATELET ESTIMATE NORMAL; TARGET CELLS 2+; TEAR DROP CELLS 1+
[2019-05-16] MEDS: POLYETHYLENE GLYCOL 3350 119 GM BTL PO SCH (11:30)
[2019-05-16] MEDS: LEVOTHYROXINE NA 150 MCG TABLET PO SCH (11:31)
[2019-05-16] MEDS: hydrALAZINE HCL 25 MG TABLET (FP) PO SCH ×2 (11:32→21:53)
[2019-05-16] MEDS: PANTOPRAZOLE SODIUM 40 MG VIAL IVPUSH SCH (11:33)
[2019-05-16] MEDS: metoPROLOL SUCCINATE 25 MG TAB.SR.24H (FP) PO SCH ×2 (11:33→21:53)
[2019-05-16] MEDS: TAMSULOSIN HCL 0.4 MG CAP PO SCH (11:33)
[2019-05-16] MEDS ORDERED: SODIUM CHLORIDE 1,000 ML IV SCH (12:59)
[2019-05-16] MEDS ORDERED: CEFTRIAXONE 1 GM in DEXTROSE 5%-WATER - 50 ML IVPB SCH (13:15)
[2019-05-16] MEDS ORDERED: ACETAMINOPHEN 325 MG TABLET (FP) ONE (13:29)
[2019-05-16] MEDS ORDERED: CEFTRIAXONE 1 GM/50 ML BAG ONE (13:30)
--- NOTE | 2019-05-16 14:16 | PN ---
Physical Exam: SUBJECTIVE: Patient seen and examined. Pt. unbale to answer questions, repsonsive to only tactile stimulation, received 1mg Ativan overnight. OBJECTIVE: Vital Signs Period Temp Pulse Resp BP Sys/Rolon Pulse Ox Last 24 Hr 97.9 F-98.8 F 55-77 18-20 136-148/68-85 96-98 GENERAL: somnolent arousable to tactile stimuli, not in any apparent distress, thin HEAD: Normal with no signs of trauma. EYES: Pupils equal, round and reactive to light, sclera anicteric, conjunctiva clear. EARS, NOSE, THROAT: Ears normal, nares patent, dry mucous membranes. NECK: Normal range of motion. LUNGS: Rhonchi b/l in anterior upper and axilla HEART: S1, S2 Difficult to auscultate due to coarse breath sounds ABDOMEN: Soft, not distended, hypoactive bowel sounds MUSCULOSKELETAL: No edema, LLE smaller than RLE NEUROLOGICAL: Somnolent. Gait not observed. PSYCHIATRIC: Appropriate mood and affect. SKIN: Warm, dry Laboratory Results - last 24 hr 05/15/19 05/15/19 05/15/19 13:30 13:30 13:30 WBC RBC Hgb Hct MCV MCH MCHC RDW Plt Count MPV Absolute Neuts (auto) Neutrophils % Lymphocytes % Monocytes % Eosinophils % Basophils % Nucleated RBC % Hypochromia Platelet Estimate Polychromasia Poikilocytosis Anisocytosis Microcytosis Macrocytosis Target Cells Tear Drop Cells Ovalocytes [place] Cells Schistocytes PT with INR 15.60 H INR 1.32 H PTT (Actin FS) 35.6 VBG pH POC VBG pCO2 POC VBG pO2 VBG HCO3 VBG O2 Sat ([place]) VBG Base Excess Sodium Potassium Chloride Carbon Dioxide Anion Gap BUN Creatinine Est GFR (CKD-EPI)AfAm Est GFR (CKD-EPI)NonAf Random Glucose Hemoglobin A1c % Serum Osmolality Lactic Acid Calcium Iron TIBC Iron Saturation Unsaturated IBC Total Bilirubin AST ALT Alkaline Phosphatase Troponin I < 0.02 Total Protein Albumin TSH Urine Color Urine Appearance Urine pH Ur Specific [place] Urine Protein Urine Glucose (UA) Urine Ketones Urine Blood Urine Nitrite Urine Bilirubin Urine Urobilinogen Ur Leukocyte Esterase Urine WBC (Auto) Urine RBC (Auto) Urine Casts (Auto) U Epithel Cells (Auto) Urine Bacteria (Auto) Blood Type O NEGATIVE Antibody Screen Negative 05/15/19 05/15/19 05/15/19 13:30 13:30 13:30 WBC 3.9 L RBC 3.37 L Hgb 9.7 L Hct 31.7 L D MCV 94.0 MCH 28.7 MCHC 30.5 L RDW 20.2 H Plt Count 414 MPV 8.6 Absolute Neuts (auto) 2.8 Neutrophils % 72.4 Lymphocytes % 18.3 D Monocytes % 8.3 Eosinophils % 0.0 D Basophils % 1.0 Nucleated RBC % 1 H Hypochromia Platelet Estimate Polychromasia Poikilocytosis Anisocytosis Microcytosis Macrocytosis Target Cells Tear Drop Cells Ovalocytes [place] Cells Schistocytes PT with INR INR PTT (Actin FS) VBG pH 7.19 L* POC VBG pCO2 40.1 POC VBG pO2 < 49 H VBG HCO3 14.6 L VBG O2 Sat (Norman) 14.7 L VBG Base Excess -12.6 L Sodium 134 L Potassium 4.8 Chloride 106 Carbon Dioxide 13 L Anion Gap 15 BUN 63.3 H Creatinine 2.5 H Est GFR (CKD-EPI)AfAm 20.93 Est GFR (CKD-EPI)NonAf 18.06 Random Glucose 144 H Hemoglobin A1c % Serum Osmolality Lactic Acid Calcium 9.4 Iron TIBC Iron Saturation Unsaturated IBC Total Bilirubin 0.7 AST 152 H ALT 105 H Alkaline Phosphatase 151 H Troponin I Total Protein 8.2 Albumin 3.5 TSH Urine Color Urine Appearance Urine pH Ur Specific [place] Urine Protein Urine Glucose (UA) Urine Ketones Urine Blood Urine Nitrite Urine Bilirubin Urine Urobilinogen Ur Leukocyte Esterase Urine WBC (Auto) Urine RBC (Auto) Urine Casts (Auto) U Epithel Cells (Auto) Urine Bacteria (Auto) Blood Type Antibody Screen 05/15/19 05/15/19 05/15/19 13:30 13:30 13:30 WBC RBC Hgb Hct MCV MCH MCHC RDW Plt Count MPV Absolute Neuts (auto) Neutrophils % Lymphocytes % Monocytes % Eosinophils % Basophils % Nucleated RBC % Hypochromia Platelet Estimate Polychromasia Poikilocytosis Anisocytosis Microcytosis Macrocytosis Target Cells Tear Drop Cells Ovalocytes [place] Cells Schistocytes PT with INR INR PTT (Actin FS) VBG pH POC VBG pCO2 POC VBG pO2 VBG HCO3 VBG O2 Sat (Norman) VBG Base Excess Sodium Potassium Chloride Carbon Dioxide Anion Gap BUN Creatinine Est GFR (CKD-EPI)AfAm Est GFR (CKD-EPI)NonAf Random Glucose Hemoglobin A1c % < 0.4 L Serum Osmolality Lactic Acid 4.6 H* Calcium Iron TIBC Iron Saturation Unsaturated IBC Total Bilirubin AST ALT Alkaline Phosphatase Troponin I Total Protein Albumin TSH Urine Color Yellow Urine Appearance Cloudy Urine pH 5.5 Ur Specific [place] 1.015 Urine Protein 2+ H Urine Glucose (UA) Negative Urine Ketones Negative Urine Blood Negative Urine Nitrite Negative Urine Bilirubin Negative Urine Urobilinogen 1.0 Ur Leukocyte Esterase 2+ H Urine WBC (Auto) 719 Urine RBC (Auto) 22 Urine Casts (Auto) 2 U Epithel Cells (Auto) 7 Urine Bacteria (Auto) Above linearity Blood Type Antibody Screen 05/15/19 05/16/19 05/16/19 18:30 08:10 08:10 WBC 7.9 RBC 3.15 L Hgb 9.0 L Hct 30.0 L MCV 95.5 MCH 28.6 MCHC 30.0 L RDW 20.8 H Plt Count 326 D MPV 8.6 Absolute Neuts (auto) 5.9 Neutrophils % 74.8 Lymphocytes % 11.1 D Monocytes % 13.3 H Eosinophils % 0.1 D Basophils % 0.7 Nucleated RBC % 0 Hypochromia 0 Platelet Estimate Normal Polychromasia 1+ Poikilocytosis 2+ Anisocytosis 2+ Microcytosis 1+ Macrocytosis 1+ Target Cells 2+ Tear Drop Cells 1+ Ovalocytes 2+ [place] Cells 2+ Schistocytes 1+ PT with INR INR PTT (Actin FS) VBG pH POC VBG pCO2 POC VBG pO2 VBG HCO3 VBG O2 Sat (Norman) VBG Base Excess Sodium 134 L Potassium 4.2 Chloride 108 H Carbon Dioxide 14 L Anion Gap 12 BUN 59.9 H Creatinine 2.2 H Est GFR (CKD-EPI)AfAm 24.43 Est GFR (CKD-EPI)NonAf 21.08 Random Glucose 93 Hemoglobin A1c % Serum Osmolality Lactic Acid 1.6 Calcium 8.3 L Iron 29 L TIBC 224 L Iron Saturation 12 L Unsaturated IBC 195 L Total Bilirubin 0.7 AST 90 H ALT 79 H Alkaline Phosphatase 111 Troponin I Total Protein 6.8 Albumin 2.9 L TSH 0.55 Urine Color Urine Appearance Urine pH Ur Specific [place] Urine Protein Urine Glucose (UA) Urine Ketones Urine Blood Urine Nitrite Urine Bilirubin Urine Urobilinogen Ur Leukocyte Esterase Urine WBC (Auto) Urine RBC (Auto) Urine Casts (Auto) U Epithel Cells (Auto) Urine Bacteria (Auto) Blood Type Antibody Screen 05/16/19 10:00 WBC RBC Hgb Hct MCV MCH MCHC RDW Plt Count MPV Absolute Neuts (auto) Neutrophils % Lymphocytes % Monocytes % Eosinophils % Basophils % Nucleated RBC % Hypochromia Platelet Estimate Polychromasia Poikilocytosis Anisocytosis Microcytosis Macrocytosis Target Cells Tear Drop Cells Ovalocytes [place] Cells Schistocytes PT with INR INR PTT (Actin FS) VBG pH POC VBG pCO2 POC VBG pO2 VBG HCO3 VBG O2 Sat (Norman) VBG Base Excess Sodium Potassium Chloride Carbon Dioxide Anion Gap BUN Creatinine Est GFR (CKD-EPI)AfAm Est GFR (CKD-EPI)NonAf Random Glucose Hemoglobin A1c % Serum Osmolality 292 Lactic Acid Calcium Iron TIBC Iron Saturation Unsaturated IBC Total Bilirubin AST ALT Alkaline Phosphatase Troponin I Total Protein Albumin TSH Urine Color Urine Appearance Urine pH Ur Specific [place] Urine Protein Urine Glucose (UA) Urine Ketones Urine Blood Urine Nitrite Urine Bilirubin Urine Urobilinogen Ur Leukocyte Esterase Urine WBC (Auto) Urine RBC (Auto) Urine Casts (Auto) U Epithel Cells (Auto) Urine Bacteria (Auto) Blood Type Antibody Screen Active Medications Generic Name Dose Route Start Last Admin Trade Name Freq PRN Reason Stop Dose Admin Acetaminophen 650 mg 05/15/19 15:43 Tylenol Suppository - [place] Q4H PRN FEVER Hydralazine HCl 25 mg 05/15/19 22:00 05/16/19 11:32 Apresoline - PO Not Given BID [facility] Ceftriaxone Sodium 1 gm/ 50 mls @ 100 mls/hr 05/16/19 13:15 Dextrose IVPB DAILY [facility] Protocol Sodium Chloride 1,000 mls @ 75 mls/hr 05/16/19 12:59 Normal Saline - IV ASDIR [facility]NEA Latanoprost 1 drop 05/16/19 22:00 Xalatan 0.005% Eye Drops - OU HS [facility] Levothyroxine Sodium 150 mcg 05/16/19 07:00 05/16/19 11:31 Synthroid - PO Not Given 0700 [facility] Metoprolol Succinate 25 mg 05/15/19 22:00 05/16/19 11:33 Toprol Xl - PO Not Given BID [facility] Pantoprazole Sodium 40 mg 05/16/19 10:00 05/16/19 11:33 Protonix Iv IVPUSH 40 mg DAILY [facility] Administration Polyethylene Glycol 17 gm 05/16/19 10:00 05/16/19 11:30 Miralax (For Daily Use) - PO Not Given DAILY [facility] Tamsulosin HCl 0.4 mg 05/16/19 10:00 05/16/19 11:33 Flomax - PO Not Given DAILY [facility] ASSESSMENT/PLAN: Pt is a 78 y.o. F w/ PMHx. of Parkinson's Disease, Dementia, CKD, COPD, Hx. of GIB, HTN, and hypothyroidism who presents from [facility] for increased confusion. She also has cough and fever. #Acute metabolic encephalopathy #Sepsis -possibly 2/2 acute cystitis with positive UA vs COVID from cough and fever vs less likely stroke -LA 4.6-->1.6 after NS -UA positive for acute cystitis -flu and RSV negative -COVID test pending -Initial LA: 4.6 now normal. -CT chest shows b/l pleural effusions with compressive atelectasis which effusions are increased from previous CT in 11/2018 -CT head negative for acute pathology -cefepime --> deescalated to Ceftriaxone daily -vancomycin 750mg daily -airborne and contact precautions -ID consulted +2 leuk esterase, 719 WBCs, bacteria above linearity -urine cx growing lactose fermenting gram Neg bacilli -Zosyn given in ED #LUCERO on CKD-resolving -Cr 2.5-->2.2, baseline 2-2.1 -Serum: 292 -f/u urine osm -urine electrolytes -I/Os with funes -renal dosing of medications -gentle IV hydration #Transaminitis -possibly 2/2 COVID -avoid hepatotoxic agents -D/c RUQ Us as likely 2/2 sepsis vs. COVID. LFTS increasing but witout elevation in TBili, will c/w trend. If Pt. develops signs of cholestatic picture will get US -monitor labs #Chronic normocytic anemia -chronic, recent GI bleed admission, FOBT positive today -iron/ferritin studies: suggestive of anemia of chronic disease -TSH: wnl #Prolonged QTc (512)-resolved -repeat EKG in the morning shows improved QtC -avoid QTc prolonging agents -d/c'ed home Zofran #hyperglycemia -BG 144 -A1C: less than 0.4% #COPD -O2 to maintain sat -consider albuterol inhaler if worsening #GI bleed -Hb stable now -monitor labs -omeprazole -iron #HTN -c/w metoprolol succinate #hypothyroidism -levothyroxine #dementia/Parkinson's -Lexapro -Avoid benzos if possible FEN NS 42mL/hr monitor labs NPO DVT Ppx SCDs dispo med/surg Visit type - Emergency Visit Emergency Visit: Yes ED Registration Date: 05/15/19 Care time: The patient presented to the Emergency Department on the above date and was hospitalized for further evaluation of their emergent condition. - New Patient This patient is new to me today: No - Critical Care Critical Care patient: No - Discharge Referral Referred to [facility] No ATTENDING PHYSICIAN STATEMENT I saw and evaluated the patient. I reviewed the resident's note and discussed the case with the resident. I agree with the resident's findings and plan as documented. SUBJECTIVE: OBJECTIVE: ASSESSMENT AND PLAN:
--- NOTE | 2019-05-16 15:21 | PN ---
Progress Note (short form) - Note Progress Note: PULMONARY CONSULTATION DICTATED 05/16/19 IMP ALTERED MENTAL STATUS LIKELY TOXIC METABOLIC ENCEPHALOPATHY ? PNEUMONIA UTI LACTIC ACIDOSIS ACUTE ON CHRONIC RENAL FAILURE COPD PARKINSONS HTN HYPOTHYROID DEMENTIA ELEVATED LFTS PLAN O2 CULTURES ABX PER ID ALBUTEROL NEEDED COVID-19 SEROLOGY PENDING MONITOR LYTES,RENAL FUNCTION TREND LFTS F/U CHEST X-RAYS DR BUSTOS Problem List - Problems (1) Altered mental state Code(s): R41.82 - ALTERED MENTAL STATUS, UNSPECIFIED (2) Lactic acid acidosis Code(s): E87.2 - ACIDOSIS (3) Sepsis Code(s): A41.9 - SEPSIS, UNSPECIFIED ORGANISM Qualifiers: Sepsis type: sepsis due to unspecified organism Sepsis acute organ dysfunction status: unspecified Qualified Code(s): A41.9 - Sepsis, unspecified organism (4) Urinary tract infection Code(s): N39.0 - URINARY TRACT INFECTION, SITE NOT SPECIFIED Qualifiers: Urinary tract infection type: site unspecified Hematuria presence: with hematuria Qualified Code(s): N39.0 - Urinary tract infection, site not specified; R31.9 - Hematuria, unspecified (5) Anemia Code(s): D64.9 - ANEMIA, UNSPECIFIED Qualifiers: Anemia type: unspecified type Qualified Code(s): D64.9 - Anemia, unspecified (6) CKD (chronic kidney disease) Code(s): N18.9 - CHRONIC KIDNEY DISEASE, UNSPECIFIED Qualifiers: Chronic kidney disease stage: on chronic dialysis Qualified Code(s): N18.6 - End stage renal disease; Z99.2 - Dependence on renal dialysis (7) COPD (chronic obstructive pulmonary disease) Code(s): J44.9 - CHRONIC OBSTRUCTIVE PULMONARY DISEASE, UNSPECIFIED (8) Hyperkalemia Code(s): E87.5 - HYPERKALEMIA (9) Hypothyroid Code(s): E03.9 - HYPOTHYROIDISM, UNSPECIFIED Qualifiers: (10) Metabolic acidosis Code(s): E87.2 - ACIDOSIS (11) Suspected 2019 novel coronavirus infection Code(s): R68.89 - OTHER GENERAL SYMPTOMS AND SIGNS
[2019-05-16] MEDS ORDERED: ALBUTEROL SO4 HFA INHALER IH PRN ×2 (15:35→16:00)
--- NOTE | 2019-05-16 16:26 | CONSULT ---
Consult Consult Specialty:: Nephrology Reason for Consultation:: CKD - History of Present Illness Chief Complaint: sent in for confusion History of Present Illness: Pt is a 78 year old female with pmhx of ckd, copd, gi bleed, htn, and hypothyroidism who was send in for increased confusion. She was also found to have a cough and fever. She was given ativan for agitation. She is currently unable to give history. 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 Cardio/Vascular: Yes: HTN, Hyperlipdemia Pulmonary: Yes: COPD Gastrointestinal: Yes: GERD, GI Bleed Renal/: Yes: Renal Inusuff Psych: Yes: Depression Musculoskeletal: Yes: Osteoarthritis Rheumatology: Yes: Other (arthritis) Endocrine: Yes: Hypothyroidism - Past Surgical History Past Surgical History: Yes: Appendectomy, Tonsillectomy - Alcohol/Substance Use Hx Alcohol Use: No History of Substance Use: reports: None - Smoking History Smoking history: Smoker current status UNK Have you smoked in the past 12 months: No Aproximately how many cigarettes per day: 5 If you are a former smoker, when did you quit?: 5 years ago - Social History Usual Living Arrangement: [facility] ADL: Support Services Occupation: retired History of Recent Travel: No Home Medications - Allergies Allergies/Adverse Reactions: Allergies Allergy/AdvReac Type Severity Reaction Status Date / Time No Known Allergies Allergy Verified 05/15/19 12:00 - Home Medications Home Medications: Ambulatory Orders Hydralazine HCl 25 mg PO BID 04/08/19 Latanoprost/Pf [Latanoprost 0.005% Eye Drop] 1 drop OU DAILY 04/08/19 Omeprazole 20 mg PO BID 04/08/19 Ondansetron [Zofran *Odt*] 4 mg SL TID PRN 04/08/19 Polyethylene Glycol 3350 [Miralax 119 gm Btl -] 17 gm PO DAILY 04/08/19 Tamsulosin HCl [Flomax -] 0.4 mg PO DAILY 04/08/19 Levothyroxine [Synthroid -] 150 mcg PO 0700 tablet 04/12/19 Metoprolol Succinate [Toprol XL -] 25 mg PO BID tab.sr.24h 04/12/19 Family Medical History Family History: Unable to Obtain, Denies Review of Systems Unable to obtain ROS, reason: lethargy Physical Exam Vital Signs: Vital Signs Temperature 98.8 F 05/16/19 13:12 Pulse Rate 77 05/16/19 13:12 Respiratory Rate 18 05/16/19 13:12 Blood Pressure 148/85 05/16/19 13:12 O2 Sat by Pulse Oximetry (%) 98 05/16/19 13:12 Constitutional: Yes: Calm Eyes: Yes: Conjunctiva Clear HENT: Yes: Atraumatic Neck: Yes: Supple Cardiovascular: Yes: S1, S2 Respiratory: Yes: CTA Bilaterally Gastrointestinal: Yes: Soft Renal/: Yes: Incontinence Musculoskeletal: Yes: Muscle Weakness Edema: No Neurological: Yes: Lethargy Labs: CBC, BMP 05/16/19 08:10 05/16/19 08:10 Imaging - Results Cat Scan: Report Reviewed Assessment/Plan Current Medications Generic Name Dose Route Start Last Admin Trade Name Freq PRN Reason Stop Dose Admin Acetaminophen 650 mg 05/15/19 15:43 Tylenol Suppository - [place] Q4H PRN FEVER Albuterol Sulfate 2 puff 05/16/19 16:00 Ventolin Hfa Inhaler - IH Q4H PRN SHORT OF BREATH/WHEEZING Hydralazine HCl 25 mg 05/15/19 22:00 05/16/19 11:32 Apresoline - PO Not Given BID [facility] Sodium Chloride 1,000 mls @ 75 mls/hr 05/16/19 12:59 Normal Saline - IV ASDIR [facility] Ceftriaxone Sodium 1 gm/ 50 mls @ 100 mls/hr 05/16/19 16:30 Dextrose IVPB DAILY [facility] Protocol Latanoprost 1 drop 05/16/19 22:00 Xalatan 0.005% Eye Drops - OU HS [facility] Levothyroxine Sodium 150 mcg 05/16/19 07:00 05/16/19 11:31 Synthroid - PO Not Given 0700 [facility] Metoprolol Succinate 25 mg 05/15/19 22:00 05/16/19 11:33 Toprol Xl - PO Not Given BID [facility] Pantoprazole Sodium 40 mg 05/16/19 10:00 05/16/19 11:33 Protonix Iv IVPUSH 40 mg DAILY [facility] Administration Polyethylene Glycol 17 gm 05/16/19 10:00 05/16/19 11:30 Miralax (For Daily Use) - PO Not Given DAILY [facility] Tamsulosin HCl 0.4 mg 05/16/19 10:00 05/16/19 11:33 Flomax - PO Not Given DAILY [facility] Impression 1. CKD 2. right renal cyst 3. fever 4. hypothryoid 5. dementia 6. parkinsons 7. HTN 8. gout 9. uremia 10. anemia 11. 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
--- NOTE | 2019-05-16 16:37 | CONS ---
PULMONARY CONSULTATION DATE OF CONSULTATION: 05/16/2019 REFERRING PHYSICIAN: Emmanuel Cabrera MD HISTORY: History is obtained from chart. Patient is nonverbal. This is a 78-year-old female custodial resident with a past medical of Parkinson's, dementia, chronic kidney disease, COPD, GI bleed, hypertension, hypothyroidism. Transferred from [facility] to [facility] secondary to altered mental status. Patient apparently is normally awake, alert, and oriented x1 but apparently on the day of admission started having difficulty speaking. She was also noted to have a fever and a cough. Patient was admitted with the above. On admission, she underwent a CT scan of the chest, which revealed bibasilar pleural effusion with compressive atelectasis. No definitive pneumonia was appreciated and also positive emphysematous findings. She was also noted to have on venous blood gas metabolic acidosis with pH of 7.19. She was given IV fluids and transferred up to medical floor for further management. Patient's serology was also sent for COVID-19. PAST MEDICAL HISTORY: Again includes chronic kidney disease, dementia, Parkinson's, COPD, GI bleed, hypertension, hypothyroidism. REVIEW OF SYSTEMS: Unable to obtain at this time secondary to patient's poor mentation. CURRENT MEDICATIONS: Include Tylenol suppository, Flomax, ceftriaxone, DuoNeb, Toprol XL, MiraLAX, Apresoline, Protonix, and Synthroid. PHYSICAL EXAMINATION: General: Patient is an elderly female, lethargic, nonverbal in no acute distress. Vital Signs: She is afebrile. Blood pressure is 148/85, respiratory rate is 18, O2 saturation is 98% on room air. HEENT: Normocephalic, atraumatic. Neck: Supple. Heart: Regular S1, S2. Chest: Diminished breath sounds bilaterally. Abdomen: Soft. Bowel sounds are positive. Extremities: No cyanosis or edema. LABORATORIES: Venous blood gas 7.19 pH, PCO2 of 40, PO2 of less than 49, bicarbonate 14, and a saturation of . WBC 7.9, hemoglobin 9, hematocrit 30, platelet count of 326,000. BUN 59, creatinine 2.2. Initial BUN was 63 and 2.5 creatinine. Sodium was 134. Initial lactic acid was 4.6, subsequent 1.6. LFTs initially 152 AST, currently 90. ALT is 105, currently it is 79. Chest CT, again, bilateral pleural effusion, compressive atelectasis. UA positive for 2+ protein, 2+ leukocyte esterase, WBC 7.9, RBC 22, urine casts 2. IMPRESSION: 1. Altered mental status, likely toxic metabolic encephalopathy, possible infectious. 2. Pneumonia versus urinary tract infection, rule out possible COVID-19. 3. Urinary tract infection. 4. Lactic acidosis, corrected. 5. Acute on chronic renal failure. 6. Chronic obstructive pulmonary disease clinically stable. 7. Parkinson's. 8. Hypertension. 9. Hypothyroidism. 10. Dementia. 11. Elevated liver function tests. PLAN: Supplemental O2 as needed to maintain O2 saturation 90% or greater. Obtain cultures. COVID-19 serology pending. Albuterol inhaler as needed. Antibiotics as per Infectious Disease. Trend LFTs. Monitor electrolytes, renal function. Follow up chest x-rays. BRANDY BUSTOS M.D. RENZO/[id number]
[2019-05-16] MEDS: CEFTRIAXONE 1 GM in DEXTROSE 5%-WATER - 50 ML IVPB SCH (17:36)
--- NOTE | 2019-05-16 18:34 | PN ---
Teaching Attending Note Name of Resident: Sherwin Nolasco ATTENDING PHYSICIAN STATEMENT I saw and evaluated the patient. I reviewed the resident's note and discussed the case with the resident. I agree with the resident's findings and plan as documented. SUBJECTIVE: Unable to obtain hx. OBJECTIVE: NAD, non verbal, eyes closed, lying on her side, very dry MM. liquid dark brown/green stool in diaper . abd : sfot, NT Ext : thin legs , no erythema or edema No disposable stethoscope is available. auscultation was not done ASSESSMENT AND PLAN: 78 y/o lady with h/o dementia, CKD, COPD, diverticulosis, GIB, ckd, who was brought from [facility] for worsening mentation 1- AMS ( on a back ground of dementia ) 2- UTI 3- CKD: Cr at base line 4- dilated esophagus on CT scan 5- b/l pleural effusions: chronic , seen on previous CT 6- volume depletion 7- Normocytic anemia. Hb at base line 8- transaminitis plan : - No evidence of PNA on CT scan. pleural effusions are chronic - treat UTI with ceftriaxone empirically - follow urine cx. - low suspicion for COVID . follow results - cont IVf . - will feed when awake and DC IVF - Swallow evaluation. - Unsure of the significance of the dilated esophagus. ? BArium swallow Vs . feed and observe . - Cr at base line - anemia is chronic and HB at base line . although OB is +, will defer GI w/u at this point, unless she overtly bleed . - No need for US , as transaminitis does not indicate obstructive picture. trend LFTS - NH was reched, the patient has a MOLST form that indicates full code .
--- NOTE | 2019-05-16 19:17 | PN ---
Progress Note (short form) - Note Progress Note: ID CONSULT DICTATED UTI R/O SEPSIS SECONDARY TO UTI ? PNEUMONIA TOXIC METABOLIC ENCEPHALOPATHY LOW LIKELIHOOD COVID -19 AWAIT C/S CONTINUE [id number]
[2019-05-16] MEDS: LATANOPROST 0.005% OPHTH SOLN 2.5ML BOTTLE OU SCH (22:03)
[2019-05-16] MEDS: HEPARIN NA (PORCINE) 5,000 UNITS/ML 1ML VIAL SQ SCH (22:03)
--- NOTE | 2019-05-16 22:53 | CONS ---
DATE OF CONSULTATION: DATE OF DICTATION: 05/16/2019 The patient is a 78-year-old female who was evaluated for sepsis. History was obtained from the chart as she cannot give a history. She is a halfway patient. She was admitted from the halfway after she was noted to have increased lethargy and altered mentation. She was also noted to have fever and cough. The patient presented to the emergency room where initial evaluation showed urinary tract infection. CAT scan of the chest was performed and showed bilateral pleural effusions with compressive atelectasis. She was empirically treated with antibiotics. There was concern raised about the possibility of Coronavirus. She was tested and placed on airborne precautions. At the present time, she is awake; however, she is confused. She offers no complaints. She is in no acute stress. Her breathing is nonlabored. PAST MEDICAL HISTORY: Positive for Parkinsonism, dementia, chronic kidney disease, COPD, diverticulosis, chronic kidney disease, hypertension, hypothyroidism. ALLERGIES: No known allergies. SOCIAL HISTORY: She is a halfway resident, former smoker. No recent travel or pet exposure. No known ill contacts. REVIEW OF SYSTEMS: Neurologic: Positive for Parkinsonism and dementia. Cardiac: Negative for chest pain or palpitations. Respiratory: As per HPI. Gastrointestinal: Negative vomiting or diarrhea. Genitourinary: Positive for urinary tract infection. LABORATORY DATA: White count on admission 3.9, 72 neutrophils, 18 lymphocytes, 8 monocytes, presently 7.9, hematocrit 30.0, platelets 326. Creatinine 2.2, total bilirubin 0.7, alkaline phosphatase 111, AST 90, ALT 79. Urinalysis: 719 white cells. Influenza and RSV swabs are negative. Blood culture is pending. 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 Previous urine cultures have grown ESBL. PHYSICAL EXAMINATION: General: She is awake. She is not verbally responsive. Contracted, in bed. Vital Signs: Temperature 98.1, T-max 100.5, blood pressure 123/80, pulse 84 and regular, respirations 18 per minute. HEENT: Sclerae anicteric. Heart: Sounds S1, S2. Lungs: Grossly clear. Poor inspiratory effort. Abdomen: Soft and nontender. Extremities: There is erythema noted on the sacrum. Extremities are contracted. Negative edema. IMPRESSION: 1. Urinary tract infection, rule out sepsis secondary to urinary tract infection. 2. Possible halfway-acquired pneumonia. 3. Toxic metabolic encephalopathy superimposed on dementia. 4. Low likelihood Covid-19. 5. Elevated liver enzymes, possibly related to sepsis versus viral infection. PLAN: Await sepsis workup. Continue empiric ceftriaxone pending cultures. Await Coronavirus PCR. Continue airborne isolation. Further recommendations pending cultures. Thank you for the kind referral. YAMILE BARGER M.D. [id number]
[2019-05-16] MEDS ORDERED: AZITHROMYCIN IVPB 500 MG in DEXTROSE 5%-WATER - 250 ML IVPB ONE (23:12)
[2019-05-17] MEDS: HEPARIN NA (PORCINE) 5,000 UNITS/ML 1ML VIAL SQ SCH ×3 (06:00→21:59)
[2019-05-17] MEDS: LEVOTHYROXINE NA 150 MCG TABLET PO SCH (06:00)
[2019-05-17] MEDS: SODIUM CHLORIDE 1,000 ML IV SCH ×2 (06:01→16:48)
[2019-05-17] MEDS ORDERED: cefTRIAXone SODIUM 1 GM VIAL ONE (10:03)
[2019-05-17] MEDS ORDERED: DEXTROSE 5%-WATER - 50 ML IVPB ONE (10:03)
--- NOTE | 2019-05-17 10:05 | PN ---
Progress Note, Physician Chief Complaint: COVID [address] SCAN CHRONIC FINDINGS COMFORTABLE - Current Medication List Current Medications: Active Medications Acetaminophen (Tylenol Suppository -) 650 mg [place] Q4H PRN PRN Reason: FEVER Albuterol Sulfate (Ventolin Hfa Inhaler -) 2 puff IH Q4H PRN PRN Reason: SHORT OF BREATH/WHEEZING Heparin Sodium (Porcine) (Heparin -) 5,000 unit SQ TID [facility] Last Admin: 05/17/19 06:00 Dose: 5,000 unit Documented by: Hydralazine HCl (Apresoline -) 25 mg PO BID [facility] Last Admin: 05/16/19 21:53 Dose: 25 mg Documented by: Ceftriaxone Sodium 1 gm/ (Dextrose) 50 mls @ 100 mls/hr IVPB DAILY [facility]; Protocol Last Admin: 05/16/19 17:36 Dose: 100 mls/hr Documented by: Sodium Chloride (Normal Saline -) 1,000 mls @ 40 mls/hr IV ASDIR [facility] Last Admin: 05/17/19 06:01 Dose: 40 mls/hr Documented by: Latanoprost (Xalatan 0.005% Eye Drops -) 1 drop OU HS [facility] Last Admin: 05/16/19 22:03 Dose: 1 drop Documented by: Levothyroxine Sodium (Synthroid -) 150 mcg PO 0700 [facility] Last Admin: 05/17/19 06:00 Dose: 150 mcg Documented by: Metoprolol Succinate (Toprol Xl -) 25 mg PO BID [facility] Last Admin: 05/16/19 21:53 Dose: 25 mg Documented by: Pantoprazole Sodium (Protonix Iv) 40 mg IVPUSH DAILY [facility] Last Admin: 05/16/19 11:33 Dose: 40 mg Documented by: Polyethylene Glycol (Miralax (For Daily Use) -) 17 gm PO DAILY [facility] Last Admin: 05/16/19 11:30 Dose: Not Given Documented by: Tamsulosin HCl (Flomax -) 0.4 mg PO DAILY [facility] Last Admin: 05/16/19 11:33 Dose: Not Given Documented by: - Objective Vital Signs: Vital Signs Temperature 98.8 F 05/17/19 06:03 Pulse Rate 72 05/17/19 06:03 Respiratory Rate 20 05/17/19 06:03 Blood Pressure 126/74 05/17/19 06:03 O2 Sat by Pulse Oximetry (%) 96 05/17/19 01:00 Constitutional: Yes: Mild Distress Cardiovascular: Yes: Regular Rate and Rhythm Respiratory: Yes: Diminished, On Nasal O2 Gastrointestinal: Yes: Soft Genitourinary: Yes: Incontinence Musculoskeletal: Yes: Muscle Weakness Neurological: Yes: Confusion, Pre-Existing Deficit Labs: CBC, BMP 05/16/19 08:10 05/16/19 08:10 INR, PTT INR 1.32 (0.83-1.09) H 05/15/19 13:30 Problem List - Problems (1) Altered mental state Code(s): R41.82 - ALTERED MENTAL STATUS, UNSPECIFIED (2) Suspected 2019 novel coronavirus infection Code(s): R68.89 - OTHER GENERAL SYMPTOMS AND SIGNS (3) Urinary tract infection Code(s): N39.0 - URINARY TRACT INFECTION, SITE NOT SPECIFIED Qualifiers: Urinary tract infection type: site unspecified Hematuria presence: with hematuria Qualified Code(s): N39.0 - Urinary tract infection, site not specified; R31.9 - Hematuria, unspecified (4) Anemia Code(s): D64.9 - ANEMIA, UNSPECIFIED Qualifiers: Anemia type: unspecified type Qualified Code(s): D64.9 - Anemia, unspecified (5) CKD (chronic kidney disease) Code(s): N18.9 - CHRONIC KIDNEY DISEASE, UNSPECIFIED (6) COPD (chronic obstructive pulmonary disease) Code(s): J44.9 - CHRONIC OBSTRUCTIVE PULMONARY DISEASE, UNSPECIFIED (7) Dementia Code(s): F03.90 - UNSPECIFIED DEMENTIA WITHOUT BEHAVIORAL DISTURBANCE Assessment/Plan COVID NEGATIVE RESULTS CT CHEST SHOWS CHRONIC FINDINGS CAN DC BACK TO [facility] IN MORNING
[2019-05-17] MEDS: PANTOPRAZOLE SODIUM 40 MG VIAL IVPUSH SCH (10:15)
[2019-05-17] MEDS: TAMSULOSIN HCL 0.4 MG CAP PO SCH (10:15)
[2019-05-17] MEDS: metoPROLOL SUCCINATE 25 MG TAB.SR.24H (FP) PO SCH ×2 (10:15→21:57)
[2019-05-17] MEDS: CEFTRIAXONE 1 GM in DEXTROSE 5%-WATER - 50 ML IVPB SCH (10:15)
[2019-05-17] MEDS: POLYETHYLENE GLYCOL 3350 119 GM BTL PO SCH ×2 (10:25→14:09)
[2019-05-17] MEDS: hydrALAZINE HCL 25 MG TABLET (FP) PO SCH ×2 (10:25→21:57)
[2019-05-17 12:15] LABS: ALBUMIN 2.6 g/dl (3.4-5.0); BILIRUBIN,TOTAL 0.6 mg/dL (0.2-1); BLOOD UREA NITROGEN 58.7 mg/dL (7-18); CALCIUM 8.3 mg/dL (8.5-10.1); CREATININE 2.1 mg/dL (0.55-1.3); MAGNESIUM 2.4 mg/dL (1.8-2.4); PHOSPHOROUS 4.7 mg/dL (2.5-4.9); POTASSIUM 4.1 mmol/L (3.5-5.1); TOT PROT 6.2 g/dl (6.4-8.2)
--- NOTE | 2019-05-17 12:51 | PN ---
Progress Note (short form) - Note Progress Note: PULMONARY CHART REVIEWED COVID-[address] CHEST REVEALS B/L EFFUSIONS/LARGE HEART/BULLOUS DISEASE AFEBRILE SPO2 98% ON ROOM AIR URINE CULTURE KLEB ESBL ON CEFTRIAXONE [facility] RESIDENT NO EVIDENCE TO SUGGEST FACILTY ACQUIRED PNEUMONIA CONTINUE CURRENT TREATMENT ID FOLLOW UP Jack SCOTT MD
[2019-05-17 14:07] VITALS: BMI 19.9
--- NOTE | 2019-05-17 15:56 | PN ---
Progress Note, Physician History of Present Illness: Pt remains lethargic. Her covid test was negative. - Current Medication List Current Medications: Active Medications Acetaminophen (Tylenol Suppository -) 650 mg [place] Q4H PRN PRN Reason: FEVER Albuterol Sulfate (Ventolin Hfa Inhaler -) 2 puff IH Q4H PRN PRN Reason: SHORT OF BREATH/WHEEZING Heparin Sodium (Porcine) (Heparin -) 5,000 unit SQ TID [facility] Last Admin: 05/17/19 13:19 Dose: 5,000 unit Documented by: Hydralazine HCl (Apresoline -) 25 mg PO BID [facility] Last Admin: 05/17/19 10:25 Dose: 25 mg Documented by: Ceftriaxone Sodium 1 gm/ (Dextrose) 50 mls @ 100 mls/hr IVPB DAILY [facility]; Protocol Last Admin: 05/17/19 10:15 Dose: 100 mls/hr Documented by: Sodium Chloride (Normal Saline -) 1,000 mls @ 40 mls/hr IV ASDIR [facility] Last Admin: 05/17/19 06:01 Dose: 40 mls/hr Documented by: Latanoprost (Xalatan 0.005% Eye Drops -) 1 drop OU HS [facility] Last Admin: 05/16/19 22:03 Dose: 1 drop Documented by: Levothyroxine Sodium (Synthroid -) 150 mcg PO 0700 [facility] Last Admin: 05/17/19 06:00 Dose: 150 mcg Documented by: Metoprolol Succinate (Toprol Xl -) 25 mg PO BID [facility] Last Admin: 05/17/19 10:15 Dose: 25 mg Documented by: Pantoprazole Sodium (Protonix Iv) 40 mg IVPUSH DAILY [facility] Last Admin: 05/17/19 10:15 Dose: 40 mg Documented by: Polyethylene Glycol (Miralax (For Daily Use) -) 17 gm PO DAILY [facility] Last Admin: 05/17/19 14:09 Dose: Not Given Documented by: Sodium Bicarbonate (Sodium Bicarbonate 8.4% -) 50 meq IVPUSH ONCE ONE Stop: 05/17/19 15:52 Tamsulosin HCl (Flomax -) 0.4 mg PO DAILY [facility] Last Admin: 05/17/19 10:15 Dose: 0.4 mg Documented by: - Objective Vital Signs: Vital Signs Temperature 98.4 F 05/17/19 14:00 Pulse Rate 64 05/17/19 14:00 Respiratory Rate 20 05/17/19 14:00 Blood Pressure 158/84 05/17/19 14:00 O2 Sat by Pulse Oximetry (%) 98 05/17/19 09:00 Constitutional: Yes: Calm Eyes: Yes: Conjunctiva Clear HENT: Yes: Atraumatic Neck: Yes: Supple Cardiovascular: Yes: S1, S2 Respiratory: Yes: CTA Bilaterally Gastrointestinal: Yes: Soft Genitourinary: Yes: Incontinence Musculoskeletal: Yes: Other (contracted) Edema: No Neurological: Yes: Lethargy Labs: CBC, BMP 05/17/19 12:37 05/17/19 08:25 INR, PTT INR 1.32 (0.83-1.09) H 05/15/19 13:30 Assessment/Plan Current Medications Generic Name Dose Route Start Last Admin Trade Name Freq PRN Reason Stop Dose Admin Acetaminophen 650 mg 05/15/19 15:43 Tylenol Suppository - [place] Q4H PRN FEVER Albuterol Sulfate 2 puff 05/16/19 16:00 Ventolin Hfa Inhaler - IH Q4H PRN SHORT OF BREATH/WHEEZING Heparin Sodium (Porcine) 5,000 unit 05/16/19 22:00 05/17/19 13:19 Heparin - SQ 5,000 unit TID [facility] Administration Hydralazine HCl 25 mg 05/15/19 22:00 05/17/19 10:25 Apresoline - PO 25 mg BID [facility] Administration Ceftriaxone Sodium 1 gm/ 50 mls @ 100 mls/hr 05/16/19 16:30 05/17/19 10:15 Dextrose IVPB 100 mls/hr DAILY [facility] Administration Protocol Sodium Chloride 1,000 mls @ 40 mls/hr 05/16/19 16:26 05/17/19 06:01 Normal Saline - IV 40 mls/hr ASDIR [facility] Administration Latanoprost 1 drop 05/16/19 22:00 05/16/19 22:03 Xalatan 0.005% Eye Drops - OU 1 drop HS [facility] Administration Levothyroxine Sodium 150 mcg 05/16/19 07:00 05/17/19 06:00 Synthroid - PO 150 mcg 0700 [facility] Administration Metoprolol Succinate 25 mg 05/15/19 22:00 05/17/19 10:15 Toprol Xl - PO 25 mg BID [facility] Administration Pantoprazole Sodium 40 mg 05/16/19 10:00 05/17/19 10:15 Protonix Iv IVPUSH 40 mg DAILY [facility] Administration Polyethylene Glycol 17 gm 05/16/19 10:00 05/17/19 14:09 Miralax (For Daily Use) - PO Not Given DAILY [facility] Sodium Bicarbonate 50 meq 05/17/19 15:51 Sodium Bicarbonate 8.4% - IVPUSH 05/17/19 15:52 ONCE ONE Tamsulosin HCl 0.4 mg 05/16/19 10:00 05/17/19 10:15 Flomax - PO 0.4 mg DAILY [facility] Administration Impression 1. CKD 2. right renal cyst 3. fever 4. hypothryoid 5. dementia 6. parkinsons 7. HTN 8. gout 9. uremia 10. anemia 11. GI bleed 12. acidosis Plan - d/c current fluids, start bicarb drip - will also give an amp of bicarb now - check abg - covid negative - avoid nsaids - avoid nephrotoxins
[2019-05-17] MEDS ORDERED: SODIUM BICARBONATE 8.4% 50 MEQ/50 ML VIAL IVPUSH ONE (16:02)
[2019-05-17] MEDS ORDERED: DEXTROSE 5%-WATER - 1,000 ML with SODIUM BICARBONATE 8.4% - 150 MEQ IV SCH (17:00)
[2019-05-17] MEDS: SODIUM BICARBONATE 8.4% - 150 MEQ in DEXTROSE 5%-WATER - 1,000 ML IV SCH (18:36)
[2019-05-17 20:37] LABS: ARTERIAL BLD GAS O2 SATURATION 86.5 % (95-98); ARTERIAL BLOOD GAS BASE EXCESS -8.1 meq/l (-2-2); ARTERIAL BLOOD GAS PCO2 24.3 mmHg (35-45); ARTERIAL BLOOD GAS PO2 54.3 mmHg (80-100); ARTERIAL BLOOD GAS pH 7.41 (7.35-7.45)
[2019-05-17 20:38] LABS: ALLENS TEST POSITIVE
[2019-05-17] MEDS: LATANOPROST 0.005% OPHTH SOLN 2.5ML BOTTLE OU SCH (22:01)
[2019-05-18] MEDS: LEVOTHYROXINE NA 150 MCG TABLET PO SCH (06:28)
[2019-05-18] MEDS: HEPARIN NA (PORCINE) 5,000 UNITS/ML 1ML VIAL SQ SCH ×3 (06:30→23:14)
--- NOTE | 2019-05-18 06:54 | DS ---
Physical Examination Vital Signs: Vital Signs Temperature 98.3 F 05/18/19 06:00 Pulse Rate 66 05/18/19 06:00 Respiratory Rate 20 05/18/19 06:00 Blood Pressure 102/42 L 05/18/19 06:00 O2 Sat by Pulse Oximetry (%) 98 05/17/19 09:00 Labs: CBC, BMP 05/17/19 12:37 05/17/19 08:25 Discharge Summary Problems reviewed: Yes Reason For Visit: UTI,SEPSIS Current Active Problems Altered mental state (Acute) Lactic acid acidosis (Acute) Sepsis (Acute) Suspected 2019 novel coronavirus infection (Acute) Urinary tract infection (Acute) Condition: Stable - Instructions Referrals: Emmanuel Cabrera MD [Primary Care Provider] - - Home Medications Comprehensive Discharge Medication List: Ambulatory Orders Hydralazine HCl 25 mg PO BID 04/08/19 Latanoprost/Pf [Latanoprost 0.005% Eye Drop] 1 drop OU DAILY 04/08/19 Omeprazole 20 mg PO BID 04/08/19 Ondansetron [Zofran *Odt*] 4 mg SL TID PRN 04/08/19 Polyethylene Glycol 3350 [Miralax 119 gm Btl -] 17 gm PO DAILY 04/08/19 Tamsulosin HCl [Flomax -] 0.4 mg PO DAILY 04/08/19 Levothyroxine [Synthroid -] 150 mcg PO 0700 tablet 04/12/19 Metoprolol Succinate [Toprol XL -] 25 mg PO BID tab.sr.24h 04/12/19 Acetaminophen Suppository [Tylenol .Suppository -] 650 mg [place] Q4H PRN supp.rect 05/18/19
[2019-05-18] MEDS: SODIUM BICARBONATE 8.4% - 150 MEQ in DEXTROSE 5%-WATER - 1,000 ML IV SCH ×2 (07:15→09:28)
[2019-05-18] MEDS ORDERED: cefTRIAXone SODIUM 1 GM VIAL ONE (09:01)
[2019-05-18] MEDS ORDERED: PT OWN MED DRAWER 7, Y5N ONE (09:01)
[2019-05-18] MEDS ORDERED: DEXTROSE 5%-WATER - 50 ML IVPB ONE (09:01)
[2019-05-18 09:04] LABS: ALBUMIN 2.4 g/dl (3.4-5.0); BILIRUBIN,TOTAL 0.5 mg/dL (0.2-1); BLOOD UREA NITROGEN 56.6 mg/dL (7-18); CALCIUM 8.2 mg/dL (8.5-10.1); CREATININE 2.1 mg/dL (0.55-1.3); TOT PROT 5.8 g/dl (6.4-8.2)
[2019-05-18 09:07] LABS: POTASSIUM 2.5 mmol/L (3.5-5.1)
[2019-05-18] MEDS: CEFTRIAXONE 1 GM in DEXTROSE 5%-WATER - 50 ML IVPB SCH (09:29)
[2019-05-18] MEDS: metoPROLOL SUCCINATE 25 MG TAB.SR.24H (FP) PO SCH ×2 (09:29→23:00)
[2019-05-18] MEDS: TAMSULOSIN HCL 0.4 MG CAP PO SCH (09:29)
[2019-05-18] MEDS: hydrALAZINE HCL 25 MG TABLET (FP) PO SCH ×2 (09:29→23:00)
[2019-05-18] MEDS: PANTOPRAZOLE SODIUM 40 MG VIAL IVPUSH SCH (09:30)
[2019-05-18] MEDS: POLYETHYLENE GLYCOL 3350 119 GM BTL PO SCH (09:30)
--- NOTE | 2019-05-18 09:48 | PN ---
Progress Note, Physician Chief Complaint: ASLEEP LETHARGIC COUGHING NO FEVERS - Current Medication List Current Medications: Active Medications Acetaminophen (Tylenol Suppository -) 650 mg IN Q4H PRN PRN Reason: FEVER Albuterol Sulfate (Ventolin Hfa Inhaler -) 2 puff IH Q4H PRN PRN Reason: SHORT OF BREATH/WHEEZING Heparin Sodium (Porcine) (Heparin -) 5,000 unit SQ TID [facility] Last Admin: 05/18/19 06:30 Dose: 5,000 unit Documented by: Hydralazine HCl (Apresoline -) 25 mg PO BID [facility] Last Admin: 05/18/19 09:29 Dose: 25 mg Documented by: Ceftriaxone Sodium 1 gm/ (Dextrose) 50 mls @ 100 mls/hr IVPB DAILY [facility]; Protocol Last Admin: 05/18/19 09:29 Dose: 100 mls/hr Documented by: Sodium Chloride (Normal Saline -) 1,000 mls @ 40 mls/hr IV ASDIR [facility] Last Admin: 05/17/19 16:48 Dose: Not Given Documented by: Sodium Bicarbonate 150 meq/ (Dextrose) 1,150 mls @ 75 mls/hr IV Q15H [facility] Last Admin: 05/18/19 09:28 Dose: 75 mls/hr Documented by: Potassium Chloride (Potassium Chloride 10 Meq Premix Ivpb -) 10 meq in 100 mls @ 100 mls/hr IVPB Q60M [facility] Stop: 05/18/19 11:44 Latanoprost (Xalatan 0.005% Eye Drops -) 1 drop OU HS [facility] Last Admin: 05/17/19 22:01 Dose: 1 drop Documented by: Levothyroxine Sodium (Synthroid -) 150 mcg PO 0700 [facility] Last Admin: 05/18/19 06:28 Dose: 150 mcg Documented by: Metoprolol Succinate (Toprol Xl -) 25 mg PO BID [facility] Last Admin: 05/18/19 09:29 Dose: 25 mg Documented by: Pantoprazole Sodium (Protonix Iv) 40 mg IVPUSH DAILY [facility] Last Admin: 05/18/19 09:30 Dose: 40 mg Documented by: Polyethylene Glycol (Miralax (For Daily Use) -) 17 gm PO DAILY [facility] Last Admin: 05/18/19 09:30 Dose: Not Given Documented by: Potassium Chloride (K-Dur -) 40 meq PO ONCE ONE Stop: 05/18/19 09:42 Tamsulosin HCl (Flomax -) 0.4 mg PO DAILY [facility] Last Admin: 05/18/19 09:29 Dose: 0.4 mg Documented by: - Objective Vital Signs: Vital Signs Temperature 98.3 F 05/18/19 06:00 Pulse Rate 66 05/18/19 06:00 Respiratory Rate 20 05/18/19 06:00 Blood Pressure 102/42 L 05/18/19 06:00 O2 Sat by Pulse Oximetry (%) 98 05/17/19 09:00 Constitutional: Yes: Mild Distress Cardiovascular: Yes: Regular Rate and Rhythm Respiratory: Yes: Rhonchi Gastrointestinal: Yes: Soft Genitourinary: Yes: Incontinence Musculoskeletal: Yes: Muscle Weakness Neurological: Yes: Lethargy Labs: CBC, BMP 05/17/19 12:37 05/18/19 07:35 INR, PTT INR 1.32 (0.83-1.09) H 05/15/19 13:30 Problem List - Problems (1) Altered mental state Code(s): R41.82 - ALTERED MENTAL STATUS, UNSPECIFIED (2) Suspected 2019 novel coronavirus infection Code(s): R68.89 - OTHER GENERAL SYMPTOMS AND SIGNS (3) Urinary tract infection Code(s): N39.0 - URINARY TRACT INFECTION, SITE NOT SPECIFIED Qualifiers: Urinary tract infection type: site unspecified Hematuria presence: with hematuria Qualified Code(s): N39.0 - Urinary tract infection, site not specified; R31.9 - Hematuria, unspecified (4) Anemia Code(s): D64.9 - ANEMIA, UNSPECIFIED Qualifiers: Anemia type: unspecified type Qualified Code(s): D64.9 - Anemia, unspecified (5) CKD (chronic kidney disease) Code(s): N18.9 - CHRONIC KIDNEY DISEASE, UNSPECIFIED (6) COPD (chronic obstructive pulmonary disease) Code(s): J44.9 - CHRONIC OBSTRUCTIVE PULMONARY DISEASE, UNSPECIFIED (7) Dementia Code(s): F03.90 - UNSPECIFIED DEMENTIA WITHOUT BEHAVIORAL DISTURBANCE Assessment/Plan PALLIATIVE CARE CONSULT PATIENT HAS VERY POOR QUALITY OF LIFE AND WHEN SHE WAS ALERT 1 YEAR AGO SHE SPECIFICALLY SAID SHE WOULD NOT WANT TO LIVE IF HER QUALITY OF LIFE BECAME THIS POOR. REPLETE KCL ON IV ABX FOR ESBL IN URINE
[2019-05-18] MEDS ORDERED: POTASSIUM CHLORIDE TABS 10 MEQ TABLET.ER (FP) PO ONE (10:45)
[2019-05-18] MEDS ORDERED: POTASSIUM CHLORIDE TABS 20 MEQ TABLET.ER (FP) PO ONE (10:45)
[2019-05-18] MEDS: KCL 10 MEQ IVPB 10 MEQ/100 ML INFUS.BAG IVPB SCH ×4 (11:19→16:16)
[2019-05-18 12:24] LABS: BLOOD UREA NITROGEN 56.6 mg/dL (7-18); CALCIUM 8.2 mg/dL (8.5-10.1); CREATININE 2.1 mg/dL (0.55-1.3); MAGNESIUM 2.1 mg/dL (1.8-2.4)
[2019-05-18 12:26] LABS: POTASSIUM 2.4 mmol/L (3.5-5.1)
--- NOTE | 2019-05-18 12:44 | PN ---
Progress Note (short form) - Note Progress Note: PULMONARY Pt lethargic, no fevers recorded. Vital Signs Period Temp Pulse Resp BP Sys/Rolon Pulse Ox Last 24 Hr 97.6 F-98.4 F 64-90 18-20 102-158/42-84 98 Gen: lethargic Heart: RRR Lung: scattered rhonchi Abd: soft, nontender Ext: no edema CBC, BMP 05/17/19 12:37 05/18/19 11:00 Active Medications Acetaminophen (Tylenol Suppository -) 650 mg HI Q4H PRN PRN Reason: FEVER Albuterol Sulfate (Ventolin Hfa Inhaler -) 2 puff IH Q4H PRN PRN Reason: SHORT OF BREATH/WHEEZING Heparin Sodium (Porcine) (Heparin -) 5,000 unit SQ TID [facility] Last Admin: 05/18/19 06:30 Dose: 5,000 unit Documented by: Hydralazine HCl (Apresoline -) 25 mg PO BID [facility] Last Admin: 05/18/19 09:29 Dose: 25 mg Documented by: Ceftriaxone Sodium 1 gm/ (Dextrose) 50 mls @ 100 mls/hr IVPB DAILY [facility]; Protocol Last Admin: 05/18/19 09:29 Dose: 100 mls/hr Documented by: Sodium Chloride (Normal Saline -) 1,000 mls @ 40 mls/hr IV ASDIR [facility] Last Admin: 05/17/19 16:48 Dose: Not Given Documented by: Sodium Bicarbonate 150 meq/ (Dextrose) 1,150 mls @ 75 mls/hr IV Q15H [facility] Last Admin: 05/18/19 09:28 Dose: 75 mls/hr Documented by: Potassium Chloride (Potassium Chloride 10 Meq Premix Ivpb -) 10 meq in 100 mls @ 100 mls/hr IVPB Q60M [facility] Stop: 05/18/19 12:44 Last Admin: 05/18/19 12:05 Dose: 100 mls/hr Documented by: Latanoprost (Xalatan 0.005% Eye Drops -) 1 drop OU HS [facility] Last Admin: 05/17/19 22:01 Dose: 1 drop Documented by: Levothyroxine Sodium (Synthroid -) 150 mcg PO 0700 [facility] Last Admin: 05/18/19 06:28 Dose: 150 mcg Documented by: Metoprolol Succinate (Toprol Xl -) 25 mg PO BID [facility] Last Admin: 05/18/19 09:29 Dose: 25 mg Documented by: Pantoprazole Sodium (Protonix Iv) 40 mg IVPUSH DAILY [facility] Last Admin: 05/18/19 09:30 Dose: 40 mg Documented by: Polyethylene Glycol (Miralax (For Daily Use) -) 17 gm PO DAILY [facility] Last Admin: 05/18/19 09:30 Dose: Not Given Documented by: Tamsulosin HCl (Flomax -) 0.4 mg PO DAILY [facility] Last Admin: 05/18/19 09:29 Dose: 0.4 mg Documented by: A/P UTI CKD GI bleed CKD Hypothyroidism HTN Dementia - continue antibiotics - monitor H/H - monitor urine output, creatinine - O2 to keep SpO2 >90% - aspiration precautions - DVT prophylaxis
[2019-05-18] MEDS ORDERED: KCL 10 MEQ IVPB 10 MEQ/100 ML INFUS.BAG IVPB SCH (13:15)
--- NOTE | 2019-05-18 13:21 | PN ---
Progress Note, Physician History of Present Illness: Pt remains lethargic. - Current Medication List Current Medications: Active Medications Acetaminophen (Tylenol Suppository -) 650 mg [place] Q4H PRN PRN Reason: FEVER Albuterol Sulfate (Ventolin Hfa Inhaler -) 2 puff IH Q4H PRN PRN Reason: SHORT OF BREATH/WHEEZING Heparin Sodium (Porcine) (Heparin -) 5,000 unit SQ TID [facility] Last Admin: 05/18/19 06:30 Dose: 5,000 unit Documented by: Hydralazine HCl (Apresoline -) 25 mg PO BID [facility] Last Admin: 05/18/19 09:29 Dose: 25 mg Documented by: Ceftriaxone Sodium 1 gm/ (Dextrose) 50 mls @ 100 mls/hr IVPB DAILY [facility]; Protocol Last Admin: 05/18/19 09:29 Dose: 100 mls/hr Documented by: Sodium Chloride (Normal Saline -) 1,000 mls @ 40 mls/hr IV ASDIR [facility] Last Admin: 05/17/19 16:48 Dose: Not Given Documented by: Potassium Chloride (Potassium Chloride 10 Meq Premix Ivpb -) 10 meq in 100 mls @ 100 mls/hr IVPB Q60M [facility] Stop: 05/18/19 16:14 Latanoprost (Xalatan 0.005% Eye Drops -) 1 drop OU HS [facility] Last Admin: 05/17/19 22:01 Dose: 1 drop Documented by: Levothyroxine Sodium (Synthroid -) 150 mcg PO 0700 [facility] Last Admin: 05/18/19 06:28 Dose: 150 mcg Documented by: Metoprolol Succinate (Toprol Xl -) 25 mg PO BID [facility] Last Admin: 05/18/19 09:29 Dose: 25 mg Documented by: Pantoprazole Sodium (Protonix Iv) 40 mg IVPUSH DAILY [facility] Last Admin: 05/18/19 09:30 Dose: 40 mg Documented by: Polyethylene Glycol (Miralax (For Daily Use) -) 17 gm PO DAILY [facility] Last Admin: 05/18/19 09:30 Dose: Not Given Documented by: Tamsulosin HCl (Flomax -) 0.4 mg PO DAILY [facility] Last Admin: 05/18/19 09:29 Dose: 0.4 mg Documented by: - Objective Vital Signs: Vital Signs Temperature 98.2 F 05/18/19 10:00 Pulse Rate 72 05/18/19 10:00 Respiratory Rate 20 05/18/19 10:00 Blood Pressure 120/80 05/18/19 10:00 O2 Sat by Pulse Oximetry (%) 98 05/18/19 09:00 Constitutional: Yes: Calm Eyes: Yes: Conjunctiva Clear HENT: Yes: Atraumatic Neck: Yes: Supple Cardiovascular: Yes: S1, S2 Respiratory: Yes: CTA Bilaterally Gastrointestinal: Yes: Soft Genitourinary: Yes: Incontinence Musculoskeletal: Yes: Muscle Weakness Edema: No Neurological: Yes: Lethargy Labs: CBC, BMP 05/17/19 12:37 05/18/19 11:00 INR, PTT INR 1.32 (0.83-1.09) H 05/15/19 13:30 Assessment/Plan Current Medications Generic Name Dose Route Start Last Admin Trade Name Freq PRN Reason Stop Dose Admin Acetaminophen 650 mg 05/15/19 15:43 Tylenol Suppository - [place] Q4H PRN FEVER Albuterol Sulfate 2 puff 05/16/19 16:00 Ventolin Hfa Inhaler - IH Q4H PRN SHORT OF BREATH/WHEEZING Heparin Sodium (Porcine) 5,000 unit 05/16/19 22:00 05/18/19 06:30 Heparin - SQ 5,000 unit TID [facility] Administration Hydralazine HCl 25 mg 05/15/19 22:00 05/18/19 09:29 Apresoline - PO 25 mg BID [facility] Administration Ceftriaxone Sodium 1 gm/ 50 mls @ 100 mls/hr 05/16/19 16:30 05/18/19 09:29 Dextrose IVPB 100 mls/hr DAILY [facility] Administration Protocol Sodium Chloride 1,000 mls @ 40 mls/hr 05/16/19 16:26 05/17/19 16:48 Normal Saline - IV Not Given [facility] Potassium Chloride 10 meq in 100 mls @ 100 mls/hr 05/18/19 13:15 Potassium Chloride 10 Meq Premix Ivpb - IVPB 05/18/19 16:14 Q60M [facility] Latanoprost 1 drop 05/16/19 22:00 05/17/19 22:01 Xalatan 0.005% Eye Drops - OU 1 drop HS [facility] Administration Levothyroxine Sodium 150 mcg 05/16/19 07:00 05/18/19 06:28 Synthroid - PO 150 mcg 0700 [facility] Administration Metoprolol Succinate 25 mg 05/15/19 22:00 05/18/19 09:29 Toprol Xl - PO 25 mg BID [facility] Administration Pantoprazole Sodium 40 mg 05/16/19 10:00 05/18/19 09:30 Protonix Iv IVPUSH 40 mg DAILY [facility] Administration Polyethylene Glycol 17 gm 05/16/19 10:00 05/18/19 09:30 Miralax (For Daily Use) - PO Not Given DAILY [facility] Tamsulosin HCl 0.4 mg 05/16/19 10:00 05/18/19 09:29 Flomax - PO 0.4 mg DAILY [facility] Administration Impression 1. CKD 2. right renal cyst 3. fever 4. hypothryoid 5. dementia 6. parkinsons 7. HTN 8. gout 9. uremia 10. anemia 11. GI bleed 12. acidosis 13. hypokalemia Plan - d/c bicarb - replace potassium - will change fluids to 1/s ns with potassium - bicarb is improved - avoid nsaids - avoid nephrotoxins
[2019-05-18] MEDS ORDERED: D5-1/2NS+40 MEQ KCL - 40 MEQ/1,000 ML INFUS.BAG IV SCH (13:30)
[2019-05-18 20:34] LABS: ALBUMIN 2.4 g/dl (3.4-5.0); BILIRUBIN,TOTAL 0.4 mg/dL (0.2-1); BLOOD UREA NITROGEN 55.2 mg/dL (7-18); CALCIUM 8.6 mg/dL (8.5-10.1); CREATININE 2.2 mg/dL (0.55-1.3); TOT PROT 5.9 g/dl (6.4-8.2)
[2019-05-18] MEDS: LATANOPROST 0.005% OPHTH SOLN 2.5ML BOTTLE OU SCH (23:15)
[2019-05-19] MEDS: LEVOTHYROXINE NA 150 MCG TABLET PO SCH (06:52)
[2019-05-19] MEDS: HEPARIN NA (PORCINE) 5,000 UNITS/ML 1ML VIAL SQ SCH ×2 (06:52→14:05)
[2019-05-19] MEDS ORDERED: cefTRIAXone SODIUM 1 GM VIAL ONE (09:11)
[2019-05-19] MEDS ORDERED: DEXTROSE 5%-WATER - 50 ML IVPB ONE (09:11)
[2019-05-19] MEDS ORDERED: PT OWN MED DRAWER 7, Y5N ONE (09:11)
[2019-05-19] MEDS: TAMSULOSIN HCL 0.4 MG CAP PO SCH (09:33)
[2019-05-19] MEDS: CEFTRIAXONE 1 GM in DEXTROSE 5%-WATER - 50 ML IVPB SCH (09:33)
[2019-05-19] MEDS: metoPROLOL SUCCINATE 25 MG TAB.SR.24H (FP) PO SCH (09:33)
[2019-05-19] MEDS: PANTOPRAZOLE SODIUM 40 MG VIAL IVPUSH SCH (09:33)
[2019-05-19] MEDS: hydrALAZINE HCL 25 MG TABLET (FP) PO SCH (09:33)
[2019-05-19] MEDS: POLYETHYLENE GLYCOL 3350 119 GM BTL PO SCH ×2 (09:41→09:44)
--- NOTE | 2019-05-19 09:53 | DS ---
Physical Examination Vital Signs: Vital Signs Temperature 98.9 F 05/19/19 06:50 Pulse Rate 104 H 05/19/19 06:50 Respiratory Rate 20 05/19/19 06:50 Blood Pressure 135/80 05/19/19 06:50 O2 Sat by Pulse Oximetry (%) 98 05/18/19 21:00 Findings/Remarks: PATIENT IS DNR/DNI NO AGGRESSIVE INTERVENTIONS NO HOSPITALIZATIONS Constitutional: Yes: No Distress Cardiovascular: Yes: Regular Rate and Rhythm Respiratory: Yes: Diminished, On Nasal O2 Gastrointestinal: Yes: Soft Renal/: Yes: Incontinence Musculoskeletal: Yes: Muscle Weakness Neurological: Yes: Confusion, Pre-Existing Deficit Psychiatric: Yes: Other Labs: CBC, BMP 05/17/19 12:37 Discharge Summary Problems reviewed: Yes Reason For Visit: UTI,SEPSIS Current Active Problems Altered mental state (Acute) Lactic acid acidosis (Acute) Sepsis (Acute) Suspected 2018 novel coronavirus infection (Acute) Urinary tract infection (Acute) Procedures: Principal: CT SCAN/CXR/LABS Hospital Course: ADMITTED FOR R/O COVID ESBL URINE SENSITIVE TO LEVAQUIN Plan of Treatment: DO NOT INTUBATE DO NOT RESUSCITATE DO NOT HOSPITALIZE PER PATIENTS ADVANCED DIRECTIVE IN AUGUST 2018 Condition: Stable - Instructions Diet, Activity, Other Instructions: DO NOT HOSPITALIZE DNR/DNI IN PLACE CONTINUE LEVAQUIN 250MG DAILY 7 DAYS IV FLUID IF NEEDED COMFORT CARE Referrals: Emmanuel Cabrera MD [Primary Care Provider] - Disposition: SNF FACILITY - Home Medications Comprehensive Discharge Medication List: Ambulatory Orders Hydralazine HCl 25 mg PO BID 04/08/19 Latanoprost/Pf [Latanoprost 0.005% Eye Drop] 1 drop OU DAILY 04/08/19 Omeprazole 20 mg PO BID 04/08/19 Ondansetron [Zofran *Odt*] 4 mg SL TID PRN 04/08/19 Polyethylene Glycol 3350 [Miralax 119 gm Btl -] 17 gm PO DAILY 04/08/19 Tamsulosin HCl [Flomax -] 0.4 mg PO DAILY 04/08/19 Levothyroxine [Synthroid -] 150 mcg PO 0700 tablet 04/12/19 Metoprolol Succinate [Toprol XL -] 25 mg PO BID tab.sr.24h 04/12/19 Acetaminophen Suppository [Tylenol .Suppository -] 650 mg HI Q4H PRN supp.rect 05/18/19 levoFLOXacin [Levaquin -] 250 mg PO Q48H #7 tablet 05/19/19
[2019-05-19 09:54] LABS: ALBUMIN 2.4 g/dl (3.4-5.0); BLOOD UREA NITROGEN 51.3 mg/dL (7-18); CALCIUM 8.3 mg/dL (8.5-10.1); CREATININE 2.2 mg/dL (0.55-1.3); POTASSIUM 4.1 mmol/L (3.5-5.1); TOT PROT 5.8 g/dl (6.4-8.2)
[2019-05-19] MEDS ORDERED: SODIUM BICARBONATE 8.4% 50 MEQ/50 ML VIAL IVPUSH ONE (10:45)
--- NOTE | 2019-05-19 12:20 | PN ---
Progress Note (short form) - Note Progress Note: PULMONARY Pt more alert today, no fevers recorded. Vital Signs Period Temp Pulse Resp BP Sys/Rolon Pulse Ox Last 24 Hr 98 F-98.9 F 67-104 15-20 110-164/68-80 98-98 Gen: lethargic Heart: RRR Lung: scattered rhonchi Abd: soft, nontender Ext: no edema CBC, BMP 05/17/19 12:37 05/19/19 07:35 Active Medications Acetaminophen (Tylenol Suppository -) 650 mg [place] Q4H PRN PRN Reason: FEVER Albuterol Sulfate (Ventolin Hfa Inhaler -) 2 puff IH Q4H PRN PRN Reason: SHORT OF BREATH/WHEEZING Heparin Sodium (Porcine) (Heparin -) 5,000 unit SQ TID [facility] Last Admin: 05/19/19 06:52 Dose: 5,000 unit Documented by: Hydralazine HCl (Apresoline -) 25 mg PO BID [facility] Last Admin: 05/19/19 09:33 Dose: 25 mg Documented by: Ceftriaxone Sodium 1 gm/ (Dextrose) 50 mls @ 100 mls/hr IVPB DAILY [facility]; Protocol Last Admin: 05/19/19 09:33 Dose: 100 mls/hr Documented by: Sodium Chloride (Normal Saline -) 1,000 mls @ 40 mls/hr IV ASDIR [facility] Last Admin: 05/17/19 16:48 Dose: Not Given Documented by: Latanoprost (Xalatan 0.005% Eye Drops -) 1 drop OU HS [facility] Last Admin: 05/18/19 23:15 Dose: 1 drop Documented by: Levothyroxine Sodium (Synthroid -) 150 mcg PO 0700 [facility] Last Admin: 05/19/19 06:52 Dose: 150 mcg Documented by: Metoprolol Succinate (Toprol Xl -) 25 mg PO BID [facility] Last Admin: 05/19/19 09:33 Dose: 25 mg Documented by: Pantoprazole Sodium (Protonix Iv) 40 mg IVPUSH DAILY [facility] Last Admin: 05/19/19 09:33 Dose: 40 mg Documented by: Polyethylene Glycol (Miralax (For Daily Use) -) 17 gm PO DAILY [facility] Last Admin: 05/19/19 09:44 Dose: Not Given Documented by: Tamsulosin HCl (Flomax -) 0.4 mg PO DAILY [facility] Last Admin: 05/19/19 09:33 Dose: 0.4 mg Documented by: A/P UTI CKD GI bleed CKD Hypothyroidism HTN Dementia - complete antibiotics - monitor H/H - monitor urine output, creatinine - O2 to keep SpO2 >90% - aspiration precautions - DVT prophylaxis - d/c planning
[2019-05-19] MEDS ORDERED: ACETAMINOPHEN 650 MG/20.3 ML ORAL SOLUTION (CUPS) PO ONE (14:00)
[2019-05-19 15:46] VITALS: BP 152/79; PULSE 78; TEMP 99.8
--- NOTE | 2019-05-19 16:01 | PN ---
Progress Note, Physician History of Present Illness: Pt is awake today. She is confused. - Objective Vital Signs: Vital Signs Temperature 99.8 F H 05/19/19 15:00 Pulse Rate 78 05/19/19 15:00 Respiratory Rate 20 05/19/19 15:00 Blood Pressure 152/79 05/19/19 15:00 O2 Sat by Pulse Oximetry (%) 98 05/19/19 09:00 Constitutional: Yes: Calm Eyes: Yes: Conjunctiva Clear HENT: Yes: Atraumatic Neck: Yes: Supple Cardiovascular: Yes: S1, S2 Respiratory: Yes: CTA Bilaterally Gastrointestinal: Yes: Soft Genitourinary: Yes: Incontinence Edema: No Neurological: Yes: Confusion Labs: CBC, BMP 05/17/19 12:37 05/19/19 07:35 INR, PTT INR 1.32 (0.83-1.09) H 05/15/19 13:30 Assessment/Plan Impression 1. CKD 2. right renal cyst 3. fever 4. hypothryoid 5. dementia 6. parkinsons 7. HTN 8. gout 9. uremia 10. anemia 11. GI bleed 12. acidosis 13. hypokalemia 14. metabolic acidosis Plan - d/c fluids - will give bicarb - discussed with nurse - monitor po intake - will need outpt follow up
== END 2019-05-19 15:46 | DRG 871 ==
LOC: JER 11:49 → JERBED 15:24 → J8W 05-16 14:09
PROVIDERS: ADMIT Family Medicine; ATTEND Family Medicine
DX: A41.89 Other specified sepsis (principal); G93.41 Metabolic encephalopathy; E87.2 Acidosis; N39.0 Urinary tract infection, site not specified; J98.11 Atelectasis; N17.9 Acute kidney failure, unspecified; J90 Pleural effusion, not elsewhere classified; K92.2 Gastrointestinal hemorrhage, unspecified; F03.90 Unspecified dementia, unspecified severity, without behavioral disturbance, psychotic disturbance, mood disturbance, and anxiety; J44.9 Chronic obstructive pulmonary disease, unspecified; E03.9 Hypothyroidism, unspecified; K57.90 Diverticulosis of intestine, part unspecified, without perforation or abscess without bleeding; I44.7 Left bundle-branch block, unspecified; I12.9 Hypertensive chronic kidney disease with stage 1 through stage 4 chronic kidney disease, or unspecified chronic kidney disease; N18.9 Chronic kidney disease, unspecified; R94.31 Abnormal electrocardiogram [ECG] [EKG]; G20 Parkinson's disease; R73.9 Hyperglycemia, unspecified; F02.80 Dementia in other diseases classified elsewhere, unspecified severity, without behavioral disturbance, psychotic disturbance, mood disturbance, and anxiety; R94.5 Abnormal results of liver function studies; E87.5 Hyperkalemia; R68.89 Other general symptoms and signs; K21.9 Gastro-esophageal reflux disease without esophagitis; E78.5 Hyperlipidemia, unspecified; F32.9 Major depressive disorder, single episode, unspecified; R50.9 Fever, unspecified; R05 Cough; N28.1 Cyst of kidney, acquired; M1A.9XX0 Chronic gout, unspecified, without tophus (tophi); D64.9 Anemia, unspecified; K22.8 Other specified diseases of esophagus; E87.6 Hypokalemia
CPT/HCPCS: 36415; 36600; 70450-TC; 71045-TC-FY; 71250-TC; 80048; 80053; 81003; 82272; 82803; 82962; 83036; 83540; 83550; 83605; 83735; 83930; 84100; 84443; 84484; 85025; 85610; 85730; 86850; 86900; 86901; 87040; 87086; 87186; 87804; 87807; 93005; 93010; 99285-25; J0131; J1644; J7030; U0002